=== PATIENT | male | born 1955 | race Caucasian/White ===

== ENCOUNTER 2024-02-28 12:44 | Inpatient (IN) | payer MEDICARE, MEDICAID, SELFPAY ==
[2024-02-28] VITALS (19 sets, daily range): BP systolic 71–168; BP diastolic 50–106; PULSE 85–152; RESP 17–36; TEMP 35.9–37; O2SAT 78–100; BMI 28.9
--- NOTE | ~2024-02-28 | XR_ITS ---
EXAMINATION: XR fl Dobhoff insert/rad w img DATE: 03/22/2024 11:26 INDICATION: Dysphagia. TECHNIQUE: I placed a nasoenteric tube under fluoroscopic guidance. The number of images was 2. The f luoroscopy exposure time was 0.5 minutes. COMPARISON: None. FINDINGS: The nasoenteric tube tip is in the stomach. IMPRESSION: 1. Fluoroscopy guided nasoenteric tube placement with tip in the stomach. Reviewed, dictated and finalized at location A. BOX OPERATOR
--- NOTE | ~2024-02-28 | XR_ITS ---
EXAMINATION: XR chest 1V portable DATE: 03/29/2024 05:50 INDICATION: Respiratory failure. TECHNIQUE: A single frontal view of the chest was obtained on 2 radiographs. COMPARISON: Chest view 03/27/2024, chest CT 03/16/2024 FINDINGS: There are moderate-sized pleural effusions. There are airspace opacities in the mid and low er lung zones with a basilar predominance. No pneumothorax. The heart size is normal. The endotrachea l tube tip is 5.3 cm above the pierce. A right upper extremity peripherally inserted central venous c atheter (PICC) is seen with tip at the superior cavoatrial junction. IMPRESSION: 1. Stable airspace opacities in the mid and lower lung zones, consistent with atelectasis versus pneu monia. 2. Stable moderate-sized pleural effusions. Reviewed, dictated and finalized at location A. PEELING MACHINE OPERATOR HELPER IMPRESSION: 1. Stable airspace opacities in the mid and lower lung zones, consistent with a telectasis versus pneumonia. 2. Stable moderate-sized pleural effusions.
--- NOTE | ~2024-02-28 | XR_ITS ---
XR chest 1V portable Ordering provider: Kaushik Collins History: 68 years Male with . ETT adjustment . Comparison: March 04, 2024 FINDINGS: MEDIASTINUM: The cardiac silhouette is not enlarged. Endotracheal tube is seen 4.8 cm above the juan a. Nasogastric tube is seen with the tip in the distal stomach. LUNGS: No pneumothorax. Opacification in the right mid and lower zone and left lower lobe area sugge stive of pneumonia. right pleural effusion is noted. OTHER: No free air under the diaphragm. IMPRESSION: Bilateral pneumonia. Right pleural effusion. Reviewed, dictated and finalized at location A.
--- NOTE | ~2024-02-28 | XR_ITS ---
EXAMINATION: XR abdomen gastric tube insert DATE: 02/28/2024 21:29 INDICATION: Orogastric tube placement. TECHNIQUE: An upright view of the abdomen was obtained. COMPARISON: None. FINDINGS: The lower abdomen is excluded. The nasogastric tube tip is beyond the inferior margin of th e radiograph, but at least to the distal stomach. There are old healed bilateral rib fractures. IMPRESSION: 1. Nasogastric tube tip beyond the inferior margin of the radiograph, but at least to the distal stom ach. Reviewed, dictated and finalized at location A. IMPRESSION: 1. Nasogastric tube tip beyond the inferior margin of the radiograph, but at le ast to the distal stomach.
--- NOTE | ~2024-02-28 | XR_ITS ---
EXAMINATION: XR chest PICC line DATE: 03/21/2024 09:05 INDICATION: Central line placement. TECHNIQUE: A single frontal view of the chest was obtained. COMPARISON: Chest single view 03/20/2024 FINDINGS: There are moderate-sized pleural effusions. There are airspace opacities in the perihilar r egions and at the lung bases. No pneumothorax. The heart size is normal. A right upper extremity geo pherally inserted central venous catheter (PICC) is seen with tip at the superior cavoatrial junction . There are old healed bilateral rib fractures. IMPRESSION: 1. PICC tip at the superior cavoatrial junction. 2. Stable moderate-sized pleural effusions. 3. Stable airspace opacities in the perihilar regions and at the lung bases, consistent with atelecta sis versus pneumonia. Reviewed, dictated and finalized at location A. NICIAN PREVENTATIVE MEDICINE IMPRESSION: 1. PICC tip at the superior cavoatrial junction. 2. Stable moderate-sized pleural effusions. 3. Stable airspace opacities in the perihilar regions and at the lung bases, co nsistent with atelectasis versus pneumonia.
--- NOTE | ~2024-02-28 | US_ITS ---
EXAMINATION: US venous doppler UE DATE: 03/11/2024 13:56 INDICATION: Bilateral upper limb swelling TECHNIQUE: Grayscale images without and with compression and Doppler images of the bilateral upper ex tremity veins were obtained. COMPARISON: None. FINDINGS: The right internal jugular vein, subclavian vein, axillary vein, brachial vein, basilic vein, cephali c vein, radial vein, and ulnar vein are patent. The left internal jugular vein, subclavian vein, axillary vein, brachial vein, basilic vein, cephalic vein, radial vein, and ulnar vein are patent. IMPRESSION: 1. Patent bilateral upper extremity veins. No evidence of venous thrombosis. Reviewed, dictated and finalized at location A.
--- NOTE | ~2024-02-28 | XR_ITS ---
Portable chest x-ray Comparison: 03/10/2024 Clinical History: Respiratory failure Findings: Endotracheal tube and NG tube are in place. Possible small right pleural effusion. Cardio mediastinal silhouette is stable. Bones and soft tissues are unremarkable. Impression: Small right pleural effusion. Support tubes, as above. Reviewed, dictated and finalized at location . Impression: Small right pleural effusion. Support tubes, as above.
--- NOTE | ~2024-02-28 | XR_ITS ---
Portable chest x-ray Comparison: 03/29/2024 Clinical History: Respiratory failure Findings: ET tube in place. Moderate layering right pleural effusion present. Small left pleural eff usion present. There is mild to moderate pulmonary edema pattern. Right-sided PICC line in place. Ca rdiomediastinal silhouette is stable. Bones and soft tissues are unremarkable. Impression: Bilateral pleural effusions, right greater than left, with associated [id number] pulmonary stephany a. Support tubes, as above. Reviewed, dictated and finalized at location M. P CUTTER Impression: Bilateral pleural effusions, right greater than left, with associated mild-to-m oderate pulmonary edema. Support tubes, as above.
--- NOTE | ~2024-02-28 | XR_ITS ---
EXAMINATION: XR chest 1V portable DATE: 03/05/2024 05:33 INDICATION: Acute respiratory failure. Pneumonia. TECHNIQUE: A single frontal view of the chest was obtained. COMPARISON: Chest single view 03/04/2024 FINDINGS: There are airspace opacities in all right lung zones and in the left mid and lower lung zon es. There is a small right pleural effusion. No pneumothorax. The heart size is normal. The endotrach eal tube tip is 5.7 cm above the pierce. The nasogastric tube tip is beyond the inferior margin of th e radiograph, but at least to the stomach. IMPRESSION: 1. Stable airspace opacities in right lung and left mid and lower lung zones, consistent with pneumon ia. 2. Stable small right pleural effusion. Reviewed, dictated and finalized at location A. IMPRESSION: 1. Stable airspace opacities in right lung and left mid and lower lung zones, c onsistent with pneumonia. 2. Stable small right pleural effusion.
--- NOTE | ~2024-02-28 | XR_ITS ---
EXAMINATION: XR chest 1V portable DATE: 03/16/2024 05:43 INDICATION: Intubation TECHNIQUE: frontal view of the chest was obtained. COMPARISON: Chest radiograph dated 03/15/2024 FINDINGS: Endotracheal tube tip 3.9 cm above the pierce. Nasogastric tube in the stomach with proximal side-por t below level of the gastroesophageal junction. Bilateral gradient of basilar predominant airspace opacities with blunting at the right costophrenic and left cardiophrenic angles consistent with small to moderate-sized bilateral posterior layering pl eural effusions with associated atelectasis or pneumonia. No pneumothorax. The cardiomediastinal silh ouette is normal. IMPRESSION: 1. Small to moderate-sized bilateral pleural effusions with associated atelectasis or pneumonia. Reviewed, dictated and finalized at location A. ROAD SWITCHMAN IMPRESSION: 1. Small to moderate-sized bilateral pleural effusions with associated atelecta sis or pneumonia.
--- NOTE | ~2024-02-28 | XR_ITS ---
XR abdomen gastric tube insert Ordering provider: Shyla Alanis PA-C History: . OG intubation . Comparison: XR abdomen gastric tube insert Ordering provider: Shyla Alanis PA-C History: . OG intubation . Comparison: None. FINDINGS: BOWEL: Nasogastric tube is seen with the tip in the fundus of the stomach. Advancement with 2 to 3 cm is advised. Otherwise, Nonobstructive bowel gas pattern. OTHER: No free air is seen under the diaphragm. IMPRESSION: Nasogastric tube with the tip in the fundus of the stomach. Slight advancement is advised. Reviewed, dictated and finalized at location A.
--- NOTE | ~2024-02-28 | XR_ITS ---
Portable chest x-ray Comparison: 03/25/2024 Clinical History: Respiratory failure Findings: Endotracheal tube and right-sided PICC line are in place. Probable moderate right pleural effusion and small left pleural effusion present. Moderate pulmonary edema pattern. Cardiomediastina l silhouette is stable. Bones and soft tissues are unremarkable. Impression: Bilateral pleural effusions and moderate pulmonary edema pattern, as above. Support tubes, as above. Reviewed, dictated and finalized at location . LE BUSINESS ANALYST Impression: Bilateral pleural effusions and moderate pulmonary edema pattern, as above. Support tubes, as above.
--- NOTE | ~2024-02-28 | CT_ITS ---
Clinical Indication: Cardiac arrest, hypoxia CT Scan of the Chest, Abdomen, and Pelvis with Contrast: Technique: Contiguous sections were acquired throughout the chest, abdomen, and pelvis after intraven ous administration of 100 cc of Omnipaque 350. Dose reduction technique was used on this scan by tre perez automated exposure control and iterative reconstruction technique. The dose-length product (DL P) was 1567.41 mGy-cm. Findings: There is no evidence of any significant mediastinal, hilar or axillary lymphadenopathy. The mediastin al soft tissues and vascular structures appear normal. Small pericardial effusion. Moderate to large right pleural effusion, and moderate left pleural effusion are present. There is co mplete consolidation and volume loss of the right lower lobe, most compatible with atelectasis. There is extensive right upper lobe consolidation, suspicious for pneumonia. There is mild patchy involvem ent of pneumonia in the right middle lobe. There is mild dependent left basilar atelectasis. Minimal ground glass opacity noted in the left upper lobe. The liver, spleen, pancreas, gallbladder, adrenals and kidneys are within normal limits. There are at herosclerotic calcifications of the aorta. No lymphadenopathy. No bowel obstruction or bowel wall thickening. There is no evidence to suggest acute appendicitis. Urinary bladder is collapsed around a Ha catheter. No pelvic mass seen. No ascites. There are mild probable chronic compression were injected T8, T11, and L1. Impression: Extensive right upper lobe consolidation and more mild right middle lobe consolidation, consistent wi th pneumonia. Consider aspiration pneumonia. Moderate to large right pleural effusion with complete atelectasis of the right lower lobe. Moderate left pleural effusion with minimal left basilar atelectasis. Small pericardial effusion. No definite acute abnormality in the abdomen or pelvis. Chronic compression fractures, as above. Reviewed, dictated and finalized at [facility]. Impression: Extensive right upper lobe consolidation and more mild right middle lobe consol idation, consistent with pneumonia. Consider aspiration pneumonia. Moderate to large right pleural effusion with complete atelectasis of the right lower lobe. Moderate left pleural effusion with minimal left basilar atelectasis. Small pericardial effusion. No definite acute abnormality in the abdomen or pelvis. Chronic compression fractures, as above.
--- NOTE | ~2024-02-28 | XR_ITS ---
EXAMINATION: XR chest 1V portable DATE: 03/07/2024 06:08 INDICATION: Respiratory failure. TECHNIQUE: A single frontal view of the chest was obtained. COMPARISON: Chest single view 03/06/2024 FINDINGS: There are airspace opacities in all lung zones bilaterally with a lower lung predominance, right worse than left. There is a small right pleural effusion. No pneumothorax. The heart size is no rmal. The endotracheal tube tip is 4.9 cm above the pierce. The nasogastric tube tip is beyond the in ferior margin of the radiograph, but at least to the stomach. IMPRESSION: 1. Stable diffuse lung disease, consistent with pneumonia. 2. Stable small right pleural effusion. Reviewed, dictated and finalized at location A.
--- NOTE | ~2024-02-28 | US_ITS ---
EXAMINATION: US thoracentesis DATE: 03/18/2024 10:20 INDICATION: pleural effusion TECHNIQUE: The skin was prepped and draped in sterile fashion. 1% lidocaine was used for local anesth esia. Under ultrasound guidance, a 5 Fr catheter with trochar was advanced into the left pleural effu jay jay. Fluid was aspirated. The catheter was removed, and a dressing was applied. There were no immedi ate complications. FINDINGS: Ultrasound images demonstrate a left pleural effusion and the catheter within the fluid. IMPRESSION: 1. Successful ultrasound-guided thoracentesis yielding 550 mL of doris-colored fluid. Reviewed, dictated and finalized at location A. DING MAINTENANCE REPAIRER
--- NOTE | ~2024-02-28 | XR_ITS ---
EXAMINATION: XR chest 1V portable DATE: 03/20/2024 08:53 INDICATION: Respiratory failure. TECHNIQUE: A single frontal view of the chest was obtained. COMPARISON: Chest single view 03/18/2024, chest CT 03/16/2024 FINDINGS: There are moderate-sized pleural effusions. There are airspace opacities in the perihilar r egions and at the lung bases. No pneumothorax. The heart size is normal. IMPRESSION: 1. Moderate-sized pleural effusions with worsening on the left. 2. Worsened airspace opacities in the perihilar regions and at the lung bases, consistent with atelec tasis versus pneumonia. Reviewed, dictated and finalized at location A. ADVISOR IMPRESSION: 1. Moderate-sized pleural effusions with worsening on the left. 2. Worsened airspace opacities in the perihilar regions and at the lung bases, consistent with atelectasis versus pneumonia.
--- NOTE | ~2024-02-28 | XR_ITS ---
XR chest ET placement Ordering provider: Shyla Alanis PA-C History: 68 years Male with . Intubation . Comparison: March 14, 2024 FINDINGS: MEDIASTINUM: The cardiac silhouette is slightly enlarged. Endotracheal tube is seen with the tip abov e the pierce by about 5 cm. Nasogastric tube is seen with the tip in the body of the stomach. LUNGS: No effusions or pneumothorax. Bilateral airspace disease seen in the upper and lower lobes sug gestive of pneumonia versus pulmonary edema. No change from previous examination. Minimal right pleur al effusion is possible. OTHER: No free air under the diaphragm. IMPRESSION: Bilateral airspace disease suggestive of pulmonary edema versus pneumonia. Reviewed, dictated and finalized at location A.
--- NOTE | ~2024-02-28 | XR_ITS ---
XR abdomen gastric tube insert DATE: 03/16/2024 19:42 INDICATION: Orogastric tube placement TECHNIQUE: Portable AP view COMPARISON: 03/14/2024 KUB FINDINGS: The orogastric tube is been advanced since 03/14/2024, the distal tip overlying the upper nhi dy of the stomach. ET tube in satisfactory position. Congestive changes and pleural effusions. IMPRESSION: Orogastric tube in satisfactory position in the stomach Reviewed, dictated and finalized at Location A. Reviewed, dictated and finalized at location A. EATIONAL PROGRAMS DIRECTOR
--- NOTE | ~2024-02-28 | US_ITS ---
EXAMINATION: US renal BI DATE: 03/03/2024 15:21 INDICATION: Acute renal insufficiency. Assess for hydronephrosis. TECHNIQUE: Multiple ultrasound grayscale images of the kidneys were obtained. COMPARISON: None. FINDINGS: The right kidney measures 11.4 x 5.0 x 4.9 cm. The left kidney measures 11.9 x 6.5 x 5.7 cm. The kidn eys demonstrate normal echogenicity. There is no hydronephrosis in either kidney. No stones identifi ed. The bladder is normal. Small amount of perihepatic ascites in right upper quadrant and additional small amount of ascites in the pelvis. IMPRESSION: 1. Normal kidneys without hydronephrosis. 2. Small amount of ascites in the abdomen and pelvis. Reviewed, dictated and finalized at location A.
--- NOTE | ~2024-02-28 | XR_ITS ---
Portable chest x-ray Comparison: 03/09/2024 Clinical History: Respiratory failure Findings: Endotracheal tube and NG tube are in place. Small right pleural effusion present. Left yehuda g clear. Cardiomediastinal silhouette is stable. Bones and soft tissues are unremarkable. Impression: Small right pleural effusion. Support tubes, as above. Reviewed, dictated and finalized at location . Impression: Small right pleural effusion. Support tubes, as above.
--- NOTE | ~2024-02-28 | XR_ITS ---
EXAMINATION: XR chest ET placement DATE: 02/28/2024 21:29 INDICATION: Intubation. TECHNIQUE: A single frontal view of the chest was obtained. COMPARISON: Chest single view 07/17/2020 FINDINGS: There are airspace opacities in all right lung zones. Left lateral costophrenic angle is ex cluded. No pleural effusion or pneumothorax. The heart size is normal. The endotracheal tube tip is 5 .9 cm above the pierce. The nasogastric tube tip is beyond the inferior margin of the radiograph, but at least to the stomach. There is an old healed left rib fracture. IMPRESSION: 1. Diffuse right lung disease, likely pneumonia. Reviewed, dictated and finalized at location A.
--- NOTE | ~2024-02-28 | XR_ITS ---
EXAMINATION: XR chest 1V portable DATE: 03/09/2024 05:54 INDICATION: Respiratory failure. TECHNIQUE: A single frontal view of the chest was obtained. COMPARISON: Chest single view 03/08/2024 FINDINGS: There is a small right pleural effusion. There are airspace opacities in all right lung zon es and in left mid and lower lung zones. No pneumothorax. The heart size is normal. Calcified right h ilar and mediastinal lymph nodes are consistent with old granulomatous disease. The endotracheal tube tip is 5.6 cm above the pierce. The nasogastric tube tip is beyond the inferior margin of the radiog raph, but at least to the stomach. IMPRESSION: 1. Stable airspace opacities in right lung and left mid and lower lung zones, consistent with pneumon ia. 2. Worsened small right pleural effusion. Reviewed, dictated and finalized at location A. IMPRESSION: 1. Stable airspace opacities in right lung and left mid and lower lung zones, c onsistent with pneumonia. 2. Worsened small right pleural effusion.
--- NOTE | ~2024-02-28 | XR_ITS ---
XR abdomen gastric tube rechec Ordering provider: Yasmine Edmond MD History: . Advanced OG tube . Comparison: None. FINDINGS/impression: BOWEL: Nasogastric tube is seen with the tip in the body of the stomach. Nonobstructive bowel gas pat tern in the visualized portion of the abdomen. Reviewed, dictated and finalized at location A.
--- NOTE | ~2024-02-28 | XR_ITS ---
EXAMINATION: XR barium swallow modified DATE: 03/21/2024 14:49 INDICATION: Aspiration. TECHNIQUE: The patient was given barium-containing material of multiple consistencies to swallow by t he speech pathologist while I performed fluoroscopy. Fluoroscopy exposure time was 1.2 minutes. The n umber of fluoroscopy images saved to the PACS was 1. Dose-area product was 1.2 Gy-cm^2. FINDINGS: There is reduced labial seal/lip tension. There is reduced laryngeal elevation, reduced laryngeal add uction, reduced tongue base retraction, reduced pharyngeal squeeze, and vallecular residue. There is laryngeal penetration and aspiration of thin liquids and pudding. IMPRESSION: 1. Aspiration of thin liquids and pudding. 2. Please refer to the speech therapy report for recommendations. Reviewed, dictated and finalized at location A. T SNATCHER
--- NOTE | ~2024-02-28 | XR_ITS ---
Portable chest x-ray Comparison: 03/23/2024 Clinical History: Respiratory failure Findings: Endotracheal tube, NG tube, and right-sided PICC line are in place. There are small to mod erate layering bilateral pleural effusions with underlying mild to moderate pulmonary edema pattern. Cardiomediastinal silhouette is stable. Bones and soft tissues are unremarkable. Impression: Bilateral pleural effusions with mild to moderate pulmonary edema pattern, as above. Support tubes, as above. Reviewed, dictated and finalized at location M. EXAMINER Impression: Bilateral pleural effusions with mild to moderate pulmonary edema pattern, as a jayshree. Support tubes, as above.
--- NOTE | ~2024-02-28 | XR_ITS ---
Portable chest x-ray Comparison: 03/26/2024 Clinical History: Respiratory failure Findings: Endotracheal tube and right-sided PICC line are in place. There are small bilateral pleura l effusions with mild to moderate pulmonary edema pattern. Probable element of left lower lobe atelec tasis. Cardiomediastinal silhouette is stable. Bones and soft tissues are unremarkable. Impression: [id number] bilateral pleural effusions with mild to moderate pulmonary edema pattern. Probable element of left lower lobe atelectasis. Support tubes are in place, as above. Reviewed, dictated and finalized at location M. CUTTING BLOCK REPAIRER Impression: [id number] bilateral pleural effusions with mild to moderate pulmonary e santa pattern. Probable element of left lower lobe atelectasis. Support tubes are in place, as above.
--- NOTE | ~2024-02-28 | XR_ITS ---
Portable chest x-ray Comparison: 03/30/2024 Clinical History: Respiratory failure Findings: Endotracheal tube and right-sided PICC line are in place. Small to moderate bilateral pleu ral effusions are present, mild bibasilar pulmonary edema. Cardiomediastinal silhouette is stable. B ones and soft tissues are unremarkable. Impression: [id number] bilateral pleural effusions with mild bibasilar pulmonary edema. Support tubes, as above. Reviewed, dictated and finalized at location M. ERIZER TENDER Impression: [id number] bilateral pleural effusions with mild bibasilar pulmonary manny ma. Support tubes, as above.
--- NOTE | ~2024-02-28 | XR_ITS ---
EXAMINATION: XR chest 1V portable DATE: 03/08/2024 05:59 INDICATION: Respiratory failure. TECHNIQUE: A single frontal view of the chest was obtained on 2 radiographs. COMPARISON: Chest single view 03/07/2024, chest CT 03/07/2024 FINDINGS: There are small pleural effusions. There are airspace opacities in right lung and left lowe r lung zone with a basilar predominance. No pneumothorax. The heart size is normal. The endotracheal tube tip is 5.9 cm above the pierce. The nasogastric tube tip is in the stomach. IMPRESSION: 1. Stable airspace opacities in right lung and left lower lung zone, consistent with pneumonia. 2. Stable small pleural effusions. Reviewed, dictated and finalized at location A.
--- NOTE | ~2024-02-28 | XR_ITS ---
Portable chest x-ray Comparison: 03/11/2024 Clinical History: Respiratory failure Findings: Endotracheal tube and NG tube are in satisfactory positions. There is minimal pulmonary mcclellan ziness. Cardiomediastinal silhouette is stable. Bones and soft tissues are unremarkable. Impression: Probable minimal pulmonary edema. Support tubes, as above. Reviewed, dictated and finalized at [facility]. Impression: Probable minimal pulmonary edema. Support tubes, as above.
--- NOTE | ~2024-02-28 | XR_ITS ---
Portable chest x-ray Comparison: 03/22/2024 Clinical History: Respiratory failure Findings: Endotracheal tube, NG tube, and right-sided PICC line are in place. Probable moderate laye ring bilateral pleural effusions with underlying mild to moderate pulmonary edema. Cardiomediastinal silhouette is stable. Bones and soft tissues are unremarkable. Impression: Probable moderate layering pleural effusions with underlying mild to moderate pulmonary edema pattern . Support tubes, as above. Reviewed, dictated and finalized at location . ING MACHINE OPERATOR Impression: Probable moderate layering pleural effusions with underlying mild to moderate p ulmonary edema pattern. Support tubes, as above.
--- NOTE | ~2024-02-28 | CT_ITS ---
CT head without contrast Indication: Cardiac arrest COMPARISON: 07/19/2020 Technique: Serial scans were obtained through the brain without the administration of contrast. Dose reduction technique was used on this scan by utilizing automated exposure control and iterative recon struction technique. The dose-length product (DLP) was 1167.43 mGy-cm. Findings: There is no evidence of intracranial hemorrhage, mass lesion, or acute infarct. Stable chronic care nurse magui encephalomalacia in the high left parietal lobe. The ventricles and subarachnoid spaces are dilat ed, consistent with mild atrophy. Low attenuation regions are seen within the periventricular white matter bilaterally, likely representing changes from chronic microvascular ischemic disease. There is no evidence of edema, mass effect or midline shift. The visualized paranasal sinuses and mastoid a ir cells are clear. Impression: No intracranial hemorrhage, mass, or acute infarct. Stable chronic encephalomalacia in the high left parietal lobe. Atrophy and chronic white matter changes, as above. Reviewed, dictated and finalized at location . Impression: No intracranial hemorrhage, mass, or acute infarct. Stable chronic encephalomalacia in the high left parietal lobe. Atrophy and chronic white matter changes, as above.
--- NOTE | ~2024-02-28 | XR_ITS ---
XR chest 1V portable 03/01/2024 06:16 Indication: Acute respiratory failure. Pneumonia. Procedure: AP portable chest Comparison: Comparison to multiple prior studies sequentially, with oldest reviewed study dated 04/14. Findings: There is extensive bilateral airspace disease, right greater than left. Small right pleural effusion. No pneumothorax. Stable position of endotracheal and NG tubes. Impression: 1: Persistent bilateral airspace disease, right greater than left. Differential diagnosis includes ed paula and pneumonia. 2: Small right pleural effusion. Reviewed, dictated and finalized at location B. Impression: 1: Persistent bilateral airspace disease, right greater than left. Differential diagnosis includes edema and pneumonia. 2: Small right pleural effusion.
--- NOTE | ~2024-02-28 | US_ITS ---
EXAMINATION: US thoracentesis DATE: 03/07/2024 14:46 INDICATION: pleural effusion TECHNIQUE: Emergency consent was obtained as patient has no next of kin available. Patient is intubat ed and sedated. A timeout was then performed as per protocol. The skin was prepped and draped in sterile fashion. 1% lidocaine was used for local anesthesia. Under ultrasound guidance, a 5 Fr catheter with trocar was advanced into the right pleural effusion, and the trocar needle removed. The catheter was then attached to vacuum suction. The pleural effusion was evacuated of 1 L of clear yellow fluid. The catheter was then removed, and a sterile dressing was applied. There were no immediate complications. FINDINGS: Ultrasound images demonstrate a large right-sided pleural effusion. IMPRESSION: 1. Successful ultrasound-guided thoracentesis yielding 1000 mL of thin yellow fluid, performed at e bedside in ICU. Reviewed, dictated and finalized at location A. IMPRESSION: 1. Successful ultrasound-guided thoracentesis yielding 1000 mL of thin yellow fluid, performed at the bedside in ICU.
--- NOTE | ~2024-02-28 | US_ITS ---
EXAMINATION: US thoracentesis DATE: 03/17/2024 15:03 INDICATION: pleural effusion TECHNIQUE: The skin was prepped and draped in sterile fashion. 1% lidocaine was used for local anesth esia. Under ultrasound guidance, a 5 Fr catheter with trochar was advanced into the right pleural eff usion. Fluid was aspirated. The catheter was removed, and a dressing was applied. There were no immed iate complications. FINDINGS: Ultrasound images demonstrate a right pleural effusion and the catheter within the fluid. IMPRESSION: 1. Successful ultrasound-guided thoracentesis yielding 1000 mL of clear, yellow fluid. Reviewed, dictated and finalized at location A. OMIC RESEARCH ANALYST IMPRESSION: 1. Successful ultrasound-guided thoracentesis yielding 1000 mL of clear, yello w fluid.
--- NOTE | ~2024-02-28 | XR_ITS ---
EXAMINATION: XR chest 1V portable DATE: 03/04/2024 06:06 INDICATION: Acute respiratory failure. Pneumonia. TECHNIQUE: A single frontal view of the chest was obtained. COMPARISON: Chest single view 03/03/2024 FINDINGS: There are interstitial airspace opacities in all lung zones bilaterally with a perihilar pr edominance, right worse than left. There is a small right pleural effusion. No pneumothorax. The hear t size is normal. The endotracheal tube tip is 9.3 cm above the pierce. The nasogastric tube tip is i n the stomach. Calcified mediastinal lymph nodes are consistent with old granulomatous disease. There are old healed rib fractures bilaterally. IMPRESSION: 1. Diffuse lung disease with improvement on the left, consistent with pulmonary edema versus pneumoni a versus acute respiratory distress syndrome (ARDS). 2. Stable small right pleural effusion. Reviewed, dictated and finalized at location A. IMPRESSION: 1. Diffuse lung disease with improvement on the left, consistent with pulmonary edema versus pneumonia versus acute respiratory distress syndrome (ARDS). 2. Stable small right pleural effusion.
--- NOTE | ~2024-02-28 | XR_ITS ---
Portable chest x-ray Comparison: 03/12/2024 Clinical History: Respiratory failure Findings: Endotracheal tube and NG tube are in place. Small layering right pleural effusion probably present. Left lung clear. Cardiomediastinal silhouette is stable. Bones and soft tissues are unrema rkable. Impression: Probable small layering right pleural effusion. Support tubes, as above. Reviewed, dictated and finalized at location . Impression: Probable small layering right pleural effusion. Support tubes, as above.
--- NOTE | ~2024-02-28 | XR_ITS ---
EXAMINATION: XR abdomen gastric tube insert DATE: 03/21/2024 15:45 INDICATION: Nasogastric tube placement. TECHNIQUE: A semiupright view of the abdomen was obtained. COMPARISON: Chest single view at 8:48 AM FINDINGS: The lower abdomen is excluded. The nasogastric tube tip is in the stomach. There are modera te-sized right and small left pleural effusions. IMPRESSION: 1. Nasogastric tube tip in the stomach. 2. Moderate-sized right and small left pleural effusions. Reviewed, dictated and finalized at location A. A LIBRARIAN
--- NOTE | ~2024-02-28 | XR_ITS ---
Portable chest x-ray Comparison: 03/16/2024 Clinical History: Intubation Findings: Endotracheal tube and NG tube are in satisfactory positions. There are small to moderate l ayering bilateral pleural effusions. Cardiomediastinal silhouette is stable. Bones and soft tissues are unremarkable. Impression: Small to moderate layering bilateral pleural effusions. Support tubes, as above. Reviewed, dictated and finalized at location M. MANAGEMENT DIRECTOR Impression: Small to moderate layering bilateral pleural effusions. Support tubes, as above.
--- NOTE | ~2024-02-28 | XR_ITS ---
XR chest 1V portable Ordering provider: Yasmine Edmond MD History: 68 years Male with . oxygen desaturation, UNABLE TO GET 2ND IMAGE AT THIS TIME . Comparison: March 03, 2024 FINDINGS: MEDIASTINUM: The cardiac silhouette is not enlarged. Endotracheal tube is seen with the tip 5 cm abov e the pierce. Nasogastric tube seen extending to the upper abdomen. LUNGS: No pneumothorax. Bilateral opacification suggestive of pneumonia. Underlying pulmonary edema i s not excluded. ARDS is also not excluded. Minimal right pleural effusion. OTHER: No free air under the diaphragm. IMPRESSION: Bilateral pneumonia. Differential include pulmonary edema and ARDS. Minimal right pleural effusion. Reviewed, dictated and finalized at location A. IMPRESSION: Bilateral pneumonia. Differential include pulmonary edema and ARDS. Minimal rig ht pleural effusion.
--- NOTE | ~2024-02-28 | XR_ITS ---
EXAMINATION: [id number]_CR DATE: 03/18/2024 10:31 INDICATION: Left pleural effusion status post thoracentesis. TECHNIQUE: A single frontal view of the chest was obtained on 2 radiographs. COMPARISON: Chest single view 03/17/2024 FINDINGS: There is a small right pleural effusion. There are airspace opacities at the lung bases. No pneumothorax. The heart size is normal. The endotracheal tube tip is 4.0 cm above the pierce. The na sogastric tube tip is beyond the inferior margin of the radiograph, but at least to the stomach. IMPRESSION: 1. Stable small right pleural effusion. 2. Airspace opacities at the lung bases with improvement on the left, consistent with atelectasis kike cruz pneumonia. Reviewed, dictated and finalized at location A. ON PICTURE CRITIC IMPRESSION: 1. Stable small right pleural effusion. 2. Airspace opacities at the lung bases with improvement on the left, consisten t with atelectasis versus pneumonia.
--- NOTE | ~2024-02-28 | US_ITS ---
EXAMINATION: US venous doppler UE DATE: 03/22/2024 14:44 INDICATION: Swelling . TECHNIQUE: Grayscale ultrasound images without and with compression and Doppler ultrasound images of the bilateral upper extremity veins were obtained. COMPARISON: 03/11/2024. FINDINGS: Partially compressible right subclavian vein, with nonocclusive intraluminal thrombus surrounding the traversing PICC. The visualized portions of the bilateral internal jugular vein, left subclavian vei n, axillary vein, brachial veins, basilic vein, cephalic vein, radial vein, and ulnar vein are patent . IMPRESSION: Nonocclusive right subclavian vein thrombus. No additional deep venous thrombosis detected in the rem aining bilateral upper extremity veins. Reviewed, dictated and finalized at location K. P IMPRESSION: Nonocclusive right subclavian vein thrombus. No additional deep venous thrombos is detected in the remaining bilateral upper extremity veins.
--- NOTE | ~2024-02-28 | XR_ITS ---
Portable chest x-ray Comparison: 03/01/2024 Clinical History: Respiratory failure Findings: Endotracheal tube and NG tube are in place. Probable moderate right pleural effusion with extensive hazy right lung consolidation. Left lung clear. Cardiomediastinal silhouette is stable. Murray larisa and soft tissues are unremarkable. Impression: Probable moderate layering right pleural effusion. Correlate for underlying atelectasis/edema versus pneumonia. Left lung clear. Support tubes, as above. Reviewed, dictated and finalized at location . Impression: Probable moderate layering right pleural effusion. Correlate for underlying ate lectasis/edema versus pneumonia. Left lung clear. Support tubes, as above.
--- NOTE | ~2024-02-28 | XR_ITS ---
Portable chest x-ray Comparison: 03/13/2024 Clinical History: Respiratory failure Findings: Endotracheal tube and NG tube are in place. Probable small layering right pleural effusion . Left lung clear. Cardiomediastinal silhouette is stable. Bones and soft tissues are unremarkable. Impression: Probable small layering right pleural effusion. Support tubes, as above. Reviewed, dictated and finalized at location . Impression: Probable small layering right pleural effusion. Support tubes, as above.
--- NOTE | ~2024-02-28 | XR_ITS ---
EXAMINATION: XR chest 1V portable DATE: 03/15/2024 06:04 INDICATION: Intubation TECHNIQUE: frontal view of the chest was obtained. COMPARISON: Chest radiograph dated 03/14/2024 FINDINGS: Endotracheal tube tip 3.8 cm above the pierce. Nasogastric tube tip just below level of the gastroeso phageal junction. Diffuse hazy and scattered patchy airspace opacities throughout the right lung which includes a likel y increasing small to moderate-sized right pleural effusion. Additional more localized retrocardiac o pacities at the medial left lower lung zone atelectasis and/or pneumonia possibly with small left ple ural effusion. Heart size is normal. IMPRESSION: 1. Nasogastric tube tip just below level of the gastroesophageal junction. Would recommend advancemen t by 8-[address] the proximal side-port below level of the gastroesophageal junction. 2. Bilateral airspace opacities at the medial left lower lung zone and more diffusely throughout the right lung collateral with interval increase consistent with likely increasing small to moderate-size d right pleural effusion and possible small left pleural effusion with associated atelectasis, pneumo amina, pulmonary edema or some combination thereof. Reviewed, dictated and finalized at location A. IMPRESSION: 1. Nasogastric tube tip just below level of the gastroesophageal junction. Woul d recommend advancement by 8-[address] the proximal side-port below level of the gastroesophageal junction. 2. Bilateral airspace opacities at the medial left lower lung zone and more dif fusely throughout the right lung collateral with interval increase consistent w ith likely increasing small to moderate-sized right pleural effusion and possib le small left pleural effusion with associated atelectasis, pneumonia, pulmonar y edema or some combination thereof.
--- NOTE | ~2024-02-28 | XR_ITS ---
[id number]_CR Ordering provider: Radha Boateng History: 68 years Male with . post R thora . Comparison: None. FINDINGS: MEDIASTINUM: The cardiac silhouette is slightly enlarged. Endotracheal tube is seen with the tip abov e the pierce by about 3 cm. Nasogastric tube seen extending to the stomach. LUNGS: No pneumothorax. Bilateral opacification in the perihilar and lower lobes more prominent on th e left side. Trace of effusion the right costophrenic angle is not excluded. OTHER: No free air under the diaphragm. IMPRESSION: Bilateral pneumonia. Reviewed, dictated and finalized at location A. IMPRESSION: Bilateral pneumonia.
--- NOTE | ~2024-02-28 | XR_ITS ---
EXAMINATION: XR chest 1V portable DATE: 03/22/2024 10:25 INDICATION: Central line placement. TECHNIQUE: A single frontal view of the chest was obtained on 2 radiographs. COMPARISON: Chest single view 03/21/2024 FINDINGS: There are airspace opacities in all right lung zones. There are airspace opacities in left perihilar region and at left lung base. There are moderate-sized right and small left pleural effusio ns. No pneumothorax. The heart size is normal. A right upper extremity peripherally inserted central venous catheter (PICC) is seen with tip at the superior cavoatrial junction. IMPRESSION: 1. Diffuse lung disease with worsening on the right, consistent with atelectasis versus pneumonia. 2. Stable moderate-sized right and small left pleural effusions. 3. PICC tip at superior cavoatrial junction. Reviewed, dictated and finalized at location A. ALARM INSTALLER IMPRESSION: 1. Diffuse lung disease with worsening on the right, consistent with atelectasi s versus pneumonia. 2. Stable moderate-sized right and small left pleural effusions. 3. PICC tip at superior cavoatrial junction.
--- NOTE | ~2024-02-28 | CT_ITS ---
EXAMINATION: CT chest abdomen pelvis wo con DATE: 03/16/2024 09:50 INDICATION: Fever TECHNIQUE: Computed tomography (CT) of the chest, abdomen, and pelvis was performed without intraveno us contrast. Automated exposure control and iterative reconstruction technique were employed. Exam do se: 1737.70 mGy-cm total exam DLP. COMPARISON: None FINDINGS: CHEST CT: ET and NG tube in satisfactory position. Borderline heart size. Minimal pericardial effusion. Prominent left main and left anterior descending coronary artery calcifications. No thoracic aortic aneurysm. No hilar or mediastinal mass lesion or lymphadenopathy is evident. There are fairly large bilateral pleural effusions with associated urinary prominent compressive atel ectasis of the lower lobes and dependent atelectasis of the middle and upper lobes. Mild bilateral gynecomastia. ABDOMEN/PELVIS CT: No hepatic, splenic, pancreatic, adrenal or renal space occupying mass lesion. The gallbladder is present. No bile duct or pancreatic duct dilatation. No urinary tract calculus or hydroureteronephrosis. There is prominent diffuse thickening of the urinary bladder wall; consider cystitis. There is a Fole y catheter within the bladder lumen. The prostate does not appear very enlarged but there are some pr ostate calcifications. There is atherosclerotic calcification of the abdominal aorta but no aneurysm. No intraperitoneal or retroperitoneal or pelvic mass lesion or adenopathy or ascites is evident. There is an NG tube in the stomach but there is a very large air-fluid level of the stomach. The appendix is not visualized. No bowel obstruction, bowel wall thickening, pneumatosis or intraperitoneal free air is detected. There is edema of the abdominal and pelvic hernandez and proximal thighs as well as scrotum. Small bilateral fat-containing inguinal hernias. There are moderate anterior wedge compression fracture deformities of T11 and L1. These are likely ch ronic. No suspicious osteolytic or osteoblastic lesion is identified. Left femoral venous catheter terminates in the left common iliac vein. IMPRESSION: Anasarca Large pleural effusions with prominent compressive atelectasis of the lower lobes especially, depende nt atelectasis of the middle and upper lobes Heart size. Prominent coronary artery atherosclerotic calcifications Minimal pericardial effusion Prominent diffuse thickening of urinary bladder wall suggesting cystitis area Ha catheter in bladd er lumen Very prominent amount of fluid and large fluid level within the stomach despite presence of NG tube T11 and L1 moderate anterior wedge compression fractures, likely chronic Reviewed, dictated and finalized at Location A. Reviewed, dictated and finalized at location A. NS OR GROUNDS SUPERINTENDENT IMPRESSION: Anasarca Large pleural effusions with prominent compressive atelectasis of the lower lob es especially, dependent atelectasis of the middle and upper lobes Heart size. Prominent coronary artery atherosclerotic calcifications Minimal pericardial effusion Prominent diffuse thickening of urinary bladder wall suggesting cystitis area F oley catheter in bladder lumen Very prominent amount of fluid and large fluid level within the stomach despite presence of NG tube T11 and L1 moderate anterior wedge compression fractures, likely chronic
--- NOTE | ~2024-02-28 | XR_ITS ---
Portable chest x-ray Comparison: 03/17/2024 Clinical History: Intubation Findings: Endotracheal tube and NG tube are in satisfactory positions. There are small bilateral ple ural effusions with probable mild central pulmonary edema. Cardiomediastinal silhouette is stable. B ones and soft tissues are unremarkable. Impression: Small bilateral pleural effusions with probable mild central pulmonary edema pattern. Support tubes, as above. Reviewed, dictated and finalized at location . LE SLIDE MAKER Impression: Small bilateral pleural effusions with probable mild central pulmonary edema pa ttern. Support tubes, as above.
--- NOTE | ~2024-02-28 | XR_ITS ---
Portable chest x-ray Comparison: 03/31/2024 Clinical History: Status post tracheostomy Findings: Tracheostomy cannula and right-sided PICC line are in place. Probable small pleural effusi ons. Cardiomediastinal silhouette is stable. Bones and soft tissues are unremarkable. Impression: Support tubes, as above. Small bilateral pleural effusions. Reviewed, dictated and finalized at location . HANDISING DIRECTOR Impression: Support tubes, as above. Small bilateral pleural effusions.
--- NOTE | ~2024-02-28 | XR_ITS ---
EXAMINATION: XR abdomen gastric tube insert DATE: 03/22/2024 12:41 INDICATION: Orogastric tube placement. TECHNIQUE: An upright view of the abdomen was obtained. COMPARISON: Chest single view 03/22/2024 FINDINGS: The lower abdomen is excluded. The nasogastric tube tip is in the stomach. The nasogastric tube tip is in the stomach. A right upper extremity peripherally inserted central venous catheter (PI CC) is seen with tip at the superior cavoatrial junction. The endotracheal tube tip is 3.9 cm above t he pierce. IMPRESSION: 1. Nasogastric tube tip in the stomach. 2. Nasoenteric tube tip in the stomach. Reviewed, dictated and finalized at location A. ET MAKING MACHINE OPERATOR
--- NOTE | ~2024-02-28 | XR_ITS ---
CHEST RADIOGRAPH CLINICAL HISTORY: post thora icu . COMPARISON: 03/17/2024 at 5:30 AM TECHNIQUE: Single portable view of the chest. FINDINGS Redemonstration of an endotracheal tube with its tip projecting approximately 5 cm above the base of the pierce, in good radiographic position. Orogastric tube extends below the left hemidiaphragm. The remainder of the cardiomediastinal silhouette is partially obscured, but otherwise unremarkable. Large left and small right-sided pleural effusion persists. Decreased pleural fluid within the right hemithorax, when compared with previous examination. Right lung is fully inflated following right-sided thoracentesis. Increased interstitial markings are identified bilaterally, findings suggesting moderate pulmonary va scular congestion. Remainder of the visualized lung colon are clear. IMPRESSION: Right lung is fully inflated following right-sided thoracentesis. Large left and small right-sided pleural effusion persists. Supportive devices remain in good radiographic position. Reviewed, dictated and finalized at location A. LANE WOODWORKER
--- NOTE | ~2024-02-28 | XR_ITS ---
EXAMINATION: XR chest 1V portable DATE: 03/06/2024 05:41 INDICATION: Respiratory failure. TECHNIQUE: A single frontal view of the chest was obtained. COMPARISON: Chest single view 03/05/2024 FINDINGS: There are airspace opacities in all lung zones bilaterally with a perihilar and lower lung predominance, right worse than left. There is a small right pleural effusion. No pneumothorax. The he art size is normal. The endotracheal tube tip is 6.1 cm above the pierce. The nasogastric tube tip is beyond the inferior margin of the radiograph, but at least to the stomach. IMPRESSION: 1. Diffuse lung disease with worsening on the left, consistent with pneumonia. 2. Stable small right pleural effusion. Reviewed, dictated and finalized at location A.
--- NOTE | ~2024-02-28 | XR_ITS ---
Portable chest x-ray Comparison: 03/24/2024 Clinical History: Respiratory failure Findings: Endotracheal tube and right-sided PICC line are in place. Probable moderate right pleural effusion and small left pleural effusion. Probable mild to moderate pulmonary edema pattern. Cardiom ediastinal silhouette is stable. Bones and soft tissues are unremarkable. Impression: Moderate right pleural effusion and small left pleural effusion with probable moderate pulmonary stephany a. Support tubes, as above. Reviewed, dictated and finalized at location . CISE PLANNER Impression: Moderate right pleural effusion and small left pleural effusion with probable m oderate pulmonary edema. Support tubes, as above.
--- NOTE | ~2024-02-28 | XR_ITS ---
EXAMINATION: XR chest ET placement DATE: 03/22/2024 12:41 INDICATION: Intubation. TECHNIQUE: A single frontal view of the chest was obtained. COMPARISON: Chest single view at 10:12 AM FINDINGS: There are moderate-sized right and small left pleural effusions. There are airspace opaciti es in the perihilar regions and at the lung bases. No pneumothorax. The heart size is normal. The end otracheal tube tip is 3.5 cm above the pierce. The nasogastric tube tip is in the stomach. A right up per extremity peripherally inserted central venous catheter (PICC) is seen with tip at the superior c avoatrial junction. The nasoenteric tube tip is beyond the inferior margin of the radiograph, but at least to the stomach. IMPRESSION: 1. Diffuse lung disease with a perihilar and lower lung predominance with worsening on the left, cons istent with atelectasis versus pneumonia versus pulmonary edema. 2. Stable moderate-sized right and small left pleural effusions. Reviewed, dictated and finalized at location A. L MACHINE OPERATOR IMPRESSION: 1. Diffuse lung disease with a perihilar and lower lung predominance with worse magdaleno on the left, consistent with atelectasis versus pneumonia versus pulmonary edema. 2. Stable moderate-sized right and small left pleural effusions.
--- NOTE | ~2024-02-28 | US_ITS ---
EXAMINATION: 1. US abdomen duplex Verold 2. US abdomen limited DATE: 03/13/2024 16:44 INDICATION: Abnormal liver function tests. TECHNIQUE: Multiple grayscale and Doppler ultrasound images of the abdomen were obtained. COMPARISON: CT 02/29/2024 FINDINGS: ULTRASOUND LIMITED: The visualized portions of the head, body, and tail of the pancreas are normal. T he liver is normal without focal lesion. The gallbladder is contracted. No gallstones. The common nixon t is normal and measures 2 mm. There is a right pleural effusion. ULTRASOUND DUPLEX: The right, middle, and left hepatic veins are normal. There is antegrade flow in m ain portal vein. IMPRESSION: 1. No etiology for abnormal liver function tests. 2. Normal hepatic veins and main portal vein. Right and left portal veins and proper hepatic artery n ot evaluated. 3. Right pleural effusion. Reviewed, dictated and finalized at location B. IMPRESSION: 1. No etiology for abnormal liver function tests. 2. Normal hepatic veins and main portal vein. Right and left portal veins and p kishore hepatic artery not evaluated. 3. Right pleural effusion.
--- NOTE | ~2024-02-28 | XR_ITS ---
EXAMINATION: XR_CXR1VTHORA_CR DATE: 03/08/2024 10:07 INDICATION: Left pleural effusion status post thoracentesis. TECHNIQUE: A single frontal view of the chest was obtained. COMPARISON: Chest single view at 5:31 AM FINDINGS: There are bilateral airspace opacities with a perihilar predominance, right worse than left . No pleural effusion or pneumothorax. The heart size is normal. The endotracheal tube tip is 5.3 cm above the pierce. The nasogastric tube tip is beyond the inferior margin of the radiograph, but at le ast to the stomach. IMPRESSION: 1. Stable bilateral lung disease, right worse than left, consistent with pneumonia. Reviewed, dictated and finalized at location A. IMPRESSION: 1. Stable bilateral lung disease, right worse than left, consistent with pneumo amina.
--- NOTE | ~2024-02-28 | XR_ITS ---
Portable chest x-ray Comparison: 03/02/2024 Clinical History: Pneumonia Findings: Endotracheal tube and NG tube are in place. Small right pleural effusion present. There is mild haziness right lung. Cardiomediastinal silhouette is stable. Bones and soft tissues are unrema rkable. Impression: Small right pleural effusion. Possible mild asymmetric haziness right lung. Correlate for mild asymmetric pulmonary edema or pneumo amina. Support tubes, as above. Reviewed, dictated and finalized at location . Impression: Small right pleural effusion. Possible mild asymmetric haziness right lung. Correlate for mild asymmetric pul monary edema or pneumonia. Support tubes, as above.
--- NOTE | ~2024-02-28 | CT_ITS ---
EXAMINATION: CTA LE RT DATE: 02/28/2024 14:20 INDICATION: Peripheral arterial disease. Gangrenous right foot. TECHNIQUE: Computed tomographic angiography (CTA) of the right lower extremity was performed with 100 mL Omnipaque-350 intravenous contrast. Automated exposure control and iterative reconstruction techn ique were employed. The dose-length product was 780.33 mGy-cm. Maximum intensity projection 3D-recons tructions of the arteries were created by the technologist on a separate workstation. COMPARISON: None. FINDINGS: The bladder is markedly distended. There is a right inguinal hernia containing fat. There a re mildly enlarged right external iliac and inguinal lymph nodes, likely reactive. There is no signif icant stenosis of right common iliac artery or external iliac artery. There is moderate stenosis of r ight internal iliac artery. There is no significant stenosis of right common femoral artery, superfic ial femoral artery, or profunda femoral artery. There is moderate stenosis of popliteal artery. There is total occlusion of right anterior tibial artery and posterior tibial artery. There is total occlu jay jay of peroneal artery with distal reconstitution. There is soft tissue gas in the great toe and med ial foot soft tissues. There is soft tissue gas in first proximal and distal phalanges and head of fi rst metatarsal, consistent with osteomyelitis. There is an old healed fracture of femoral diaphysis w ith internal fixation. IMPRESSION: 1. Total occlusion of right anterior and posterior tibial arteries and right peroneal artery with di stal reconstitution of peroneal artery. 2. Moderate stenosis of right popliteal artery. 3. Osteomyelitis involving first proximal and distal phalanges and head of first metatarsal. Reviewed, dictated and finalized at location A. IMPRESSION: 1. Total occlusion of right anterior and posterior tibial arteries and right p eroneal artery with distal reconstitution of peroneal artery. 2. Moderate stenosis of right popliteal artery. 3. Osteomyelitis involving first proximal and distal phalanges and head of firs t metatarsal.
--- NOTE | ~2024-02-28 | US_ITS ---
EXAMINATION: US thoracentesis DATE: 03/08/2024 09:31 INDICATION: pleural effusion TECHNIQUE: The skin was prepped and draped in sterile fashion. 1% lidocaine was used for local anesth esia. Under ultrasound guidance, a 5 Fr catheter with trochar was advanced into the left pleural effu jay jay. Fluid was aspirated. The catheter was removed, and a dressing was applied. There were no immedi ate complications. FINDINGS: Ultrasound images demonstrate a left pleural effusion and the catheter within the fluid. IMPRESSION: 1. Successful ultrasound-guided thoracentesis yielding 550 mL of clear, yellow fluid. Reviewed, dictated and finalized at location A.
[2024-02-28 13:21] LABS: Basophils Absolute Auto 0.1 K/mm3 (0.0-0.1); Basophils Percent Auto 0.3 % (0.2-1.2); Eosinophils Absolute Auto 0.2 K/mm3 (0-0.3); Eosinophils Percent Auto 0.7 % (0-4.4); Hematocrit 29.4 % (42.0-52.0); Hemoglobin 9.5 g/dL (14.0-18.0); Immature Granulocyte Percent A 1.4 % (0-0.5); Lymphocytes Absolute Auto 1.94 K/mm3 (0.9-3.2); Lymphocytes Percent Auto 8.8 % (18.3-44.2); Mean Corpuscular HGB Conc 32.3 g/dl (32-36); Mean Corpuscular Hemoglobin 27.6 pg (26-34); Mean Corpuscular Volume 85.5 fl (80-100); Mean Platelet Volume 8.7 fl (7.4-10.4); Neutrophils Absolute Auto 17.7 K/mm3 (1.3-6.7); Neutrophils Percent Auto 79.8 % (45.5-73.1); Platelet Count Result 414 k/mm3 (150-375); Red Blood Count 3.44 M/mm3 (4.6-6.20); Red Cell Distribution Width 14.6 % (11.5-14.5); White Blood Count 22.2 K/mm3 (4.5-10.0)
[2024-02-28 13:30] LABS: Lactic Acid Reflex 1.4 mmol/L (0.7-2.0)
[2024-02-28 13:31] LABS: Alanine Aminotransferase 22 U/L (6-50); Albumin Level 2.9 g/dL (3.5-5.1); Alkaline Phosphatase 125 U/L (38-126); Anion Gap 8 mmol/L (4-12); Aspartate Amino Transferase 48 U/L (17-59); Bilirubin,Total 0.6 mg/dL (0.2-1.3); Blood Urea Nitrogen 8 mg/dL (9-20); Calcium 8.2 mg/dL (8.4-10.2); Carbon Dioxide 28 mmol/L (22-30); Chloride 94 mmol/L (98-107); Estimated CRCL calculation 90 ml/min; Estimated Glomerular Filt Rate > 60; Glucose 109 mg/dL (65-110); Potassium 3.8 mmol/L (3.4-5.0); Sodium 130 mmol/L (137-145)
[2024-02-28 13:35] LABS: INR 1.4; Prothrombin Time 17.4 Seconds (11.1-14.7)
[2024-02-28 13:36] LABS: Partial Thromboplastin Time 52.9 Seconds (22.3-36.8)
--- NOTE | 2024-02-28 13:42 | ED_ITS ---
HPI - Extremity Problem General Chief complaint: Extremity Problem,Nontraumatic <Verona Sánchez PA-C - Last Filed: 02/28/24 19:07> Stated complaint: foot pain <ANNAMARIE Morales Last Filed: 02/28/24 19:07> Time Seen by Provider: 02/28/24 13:17 <ANNAMARIE Morales Last Filed: 02/28/24 19:07> Source: patient <ANNAMARIE Morales Last Filed: 02/28/24 19:07> Mode of arrival: EMS <ANNAMARIE Morales Last Filed: 02/28/24 19:07> Limitations: no limitations <ANNAMARIE Morales Last Filed: 02/28/24 19:07> History of Present Illness HPI Narrative: Patient is a 68-year-old male who presents the ED via EMS with report of right foot wound. Patient is a resident of [facility]. he reports he has had wounds to his right 1st toe and foot over the last few weeks. He has noted a his 1st toe and distal foot to be black over the last several weeks. He states he began having increased pain and swelling to the foot over the last couple of days, which prompted him to come to the ED. He has been applying a salve to the foot. Per [place] report, patient refused to let staff evaluate him or bathe him often. Patient is a diabetic, but he states he is borderline. Denies known fevers. <Verona Sánchez PA-C - Last Filed: 02/28/24 19:07> Related Data Home medications: Home Medications Medication Instructions Recorded Confirmed budesonide-formoterol HFA 160 2 puff inhalation Q12H 07/17/20 07/17/20 mcg-4.5 mcg/actuation aerosol inhaler (Symbicort) calcium carbonate (Tums) 200 mg PO QID PRN Indigestion 07/17/20 07/17/20 cholecalciferol (vitamin D3) 25 25 mcg PO DAILY 07/17/20 07/17/20 mcg (1,000 unit) tablet citalopram 20 mg tablet (Celexa) 20 mg PO DAILY 07/17/20 07/17/20 fluticasone propionate 50 2 spray intranasal DAILY 07/17/20 07/17/20 mcg/actuation nasal spray,suspension metoprolol succinate 50 mg 50 mg PO DAILY 07/17/20 07/17/20 tablet,extended release 24 hr zolpidem 10 mg tablet 10 mg PO HS 07/17/20 07/17/20 Flonase 2 inh EACH NARE DAILY 02/28/24 02/28/24 acetaminophen 325 mg tablet 650 mg PO TID 02/28/24 02/28/24 albuterol sulfate 90 mcg/actuation 2 inh inhalation Q4H PRN Shortness 02/28/24 02/28/24 aerosol inhaler Of Breath Or Wheezing aspirin 81 mg chewable tablet 81 mg PO DAILY 02/28/24 02/28/24 (Aspirin Childrens) budesonide-formoterol HFA 160 2 puff inhalation Q12H 02/28/24 02/28/24 mcg-4.5 mcg/actuation aerosol inhaler (Symbicort) calcium carbonate (Calcium Antacid) 400 mg PO Q6H heartburn 02/28/24 02/28/24 dapagliflozin propanediol 5 mg 10 mg PO DAILY 02/28/24 02/28/24 tablet (Farxiga) docusate sodium 100 mg capsule 100 mg PO Q12H 02/28/24 02/28/24 (Colace) glucagon 1 mg/0.2 mL subcutaneous 1 mg subcut PRN PRN Hypoglycemia 02/28/24 02/28/24 auto-injector (Korina HypoPen 1-Pack) guaifenesin 400 mg tablet 400 mg PO Q6H PRN Cough 02/28/24 02/28/24 insulin aspart U-100 100 unit/mL 7 unit subcut AC 02/28/24 02/28/24 subcutaneous solution insulin glargine-yfgn 100 unit/mL 55 unit subcut HS 02/28/24 02/28/24 (3 mL) subcutaneous pen lanolin alcohols-mineral 1 applic topical Q12H 02/28/24 02/28/24 oil-w.petrolatum-ceresin topical cream (Eucerin topical cream) losartan 25 mg tablet 25 mg PO DAILY 02/28/24 02/28/24 metformin 500 mg tablet 500 mg PO BID 02/28/24 02/28/24 metoprolol succinate 50 mg 50 mg PO DAILY 02/28/24 02/28/24 tablet,extended release 24 hr multivit with minerals-iron 18 1 tablet PO DAILY 02/28/24 02/28/24 mg-folic ac 400 mcg-vit K 25 mcg tablet (Adults Multivitamin) polyethylene glycol 3350 17 gram 17 g PO DAILY PRN Constipation 02/28/24 02/28/24 oral powder packet (Miralax) rosuvastatin 20 mg tablet 20 mg PO DAILY 02/28/24 02/28/24 ticagrelor 60 mg tablet (Brilinta) 60 mg PO Q12H 02/28/24 02/28/24 trazodone 50 mg tablet 25 mg PO HS 02/28/24 02/28/24 <Verona Sánchez PA-C - Last Filed: 02/28/24 19:07> Allergies/Adverse reactions: Allergies Allergy/AdvReac Type Severity Reaction Status Date / Time No Known Allergies Allergy Verified 02/29/24 12:35 <Verona Sánchez PA-C - Last Filed: 02/28/24 19:07> Review of Systems Review of Systems: All systems reviewed & are unremarkable except as noted in HPI. <Verona Sánchez PA-C - Last Filed: 02/28/24 19:07> All systems reviewed & are unremarkable except as noted in HPI and below <Verona Sánchez PA-C - Last Filed: 02/28/24 19:07> [facility] Past Medical History Medical History: Medical History Alcohol abuse has abstained for many years Chronic obstructive pulmonary disease COPD (chronic obstructive pulmonary disease) Coronary artery disease COVID-19 Depression Hip fracture, right History of alcoholism HTN (hypertension) Insomnia Peripheral neuropathy Peripheral vascular disease Type 2 diabetes mellitus <Verona Sánchez PA-C - Last Filed: 02/28/24 19:07> Surgical History Surgical History: Surgical History History of appendectomy History of coronary artery stent placement History of hip surgery Reconstruction of the right femur History of open reduction and internal fixation (ORIF) procedure repair right femur fracture History of surgery on lower extremity History of tonsillectomy <Verona Sánchez PA-C - Last Filed: 02/28/24 19:07> Family History Family History: Family History Father Cancer Mother Heart attack Father Cancer Mother Acute myocardial infarction Grandparent 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 <Verona Sánchez PA-C - Last Filed: 02/28/24 19:07> Social History Social History: Social History Social History: Surrogate medical decision maker: The patient declines edema surrogate decision maker. He does not have a legal guardian listed or emergency contacts. skilled nursing reports that he has never had any visitors and they are unaware any family. Code status: Full code, signed in 2018 by the patient. Smoking status: Former smoker Alcohol intake: former Substance use: never Substance use type: does not use Do You Feel Safe in your Home?: Yes Lack of Transportation: No Lack of Food: Never True Current Housing: I Have Housing Concerned About Future Housing: No Difficulty Paying Gas/Electric Bills: No Difficulty Paying for Meds: No Currently Unemployed: No Education: Trade/Vocational Certificate Difficulty w/ Childcare or Family Care: No Living arrangements: snf Additional living arrangements comments: Resident at [facility]. Additional occupation/education comments: Disabled. Spiritual care concerns: No <ANNAMARIE Morales Last Filed: 02/28/24 19:07> Exam Narrative: GENERAL: Chronically ill-appearing, appears older than stated age, non-toxic, in no acute distress. HEAD: Normocephalic, atraumatic. RESPIRATORY: Airway patent, respirations nonlabored. Clear to auscultation bilaterally, no rales, rhonchi, wheezing. CARDIOVASCULAR: Regular rate and rhythm without murmurs, rubs, or gallops. pedal pulses are slightly difficult to palpate, possibly due to swelling, easily found with Doppler. MUSCULOSKELETAL: Moves all extremities. R foot with gangrene of entirety of 1st digit, necrosis extending to mid foot in area of arch, medial ball of foot, on dorsal foot just past 1st mtp joint. Bleeding and purulent material draining from necrotic areas. Distal tip of 1st digit avulsed off. Small area of fluctuance to webspace between 1st/2nd digits. Small ulcerative wounds to 2nd toe with purple discoloration of this toe. Bogginess to plantar surface of foot past necrosis with scaling/flaking of skin. Diffuse erythema of foot extending just distally from ankle. SKIN: Warm, dry, normal color. NEURO: A&O X3. Speech clear. Cranial nerves II-XII grossly intact. No ataxic movements. PSYCHIATRIC: Appropriate mood and affect. Normal interaction. <Verona Sánchez PA-C - Last Filed: 02/28/24 19:07> Course COMPOUND MACHINE OPERATOR/PA Physician Supervision For this patient encounter, I reviewed the COMPOUND MACHINE OPERATOR or PA documentation, treatment plan, and medical decision making and/or I had [id number] time with this patient. I performed all aspects of the MDM as documented. <Juli Macedo MD - Last Filed: 02/29/24 15:25> Vital Signs Vital signs: Vital Signs Temperature 97.8 F 02/28/24 12:46 Pulse Rate 93 02/28/24 12:46 Respiratory Rate 17 02/28/24 12:46 Blood Pressure 165/79 H 02/28/24 12:46 Pulse Oximetry 100 02/28/24 12:46 Temperature 97.8 F 02/29/24 14:00 Pulse Rate 78 02/29/24 14:50 Respiratory Rate 24 H 02/29/24 14:05 Blood Pressure 127/71 02/29/24 14:50 Pulse Oximetry 100 02/29/24 14:00 Oxygen Delivery Mechanical Ventilation 02/29/24 13:43 Fraction of Inspired Oxygen 40 02/29/24 13:43 <Verona Sánchez PA-C - Last Filed: 02/28/24 19:07> Vital Signs Temperature 97.8 F 02/28/24 12:46 Pulse Rate 93 02/28/24 12:46 Respiratory Rate 17 02/28/24 12:46 Blood Pressure 165/79 H 02/28/24 12:46 Pulse Oximetry 100 02/28/24 12:46 Temperature 97.8 F 02/29/24 14:00 Pulse Rate 78 02/29/24 14:50 Respiratory Rate 24 H 02/29/24 14:05 Blood Pressure 127/71 02/29/24 14:50 Pulse Oximetry 100 02/29/24 14:00 Oxygen Delivery Mechanical Ventilation 02/29/24 13:43 Fraction of Inspired Oxygen 40 02/29/24 13:43 <Juli Macedo MD - Last Filed: 02/29/24 15:25> MDM - Extremity (Nontraumatic) MDM Narrative Medical decision making narrative: Patient presented to ED with necrotic wounds to right foot. States wounds and foot have been black for the last several weeks. Vital signs are stable upon arrival. Patient is afebrile here. Exam with gangrene/necrosis of 1st toe extending to about mid foot on medial surface. CBC with WBC count of 22.2. Neutrophil predominance. No bandemia. Anemia at 9.5. No records to compare to. CMP with sodium of 130. Stable electrolytes. Stable kidney function. Lactic acid within normal range and 1.4. Blood cx obtained. Hemoglobin A1c 8.2%. Blood glucose on CMP is 109. CRP and ESR are notably elevated. On exam, patient's pedal pulses were faint. These were easily found with bedside Doppler. I did order CTA of right lower extremity: IMPRESSION: 1. 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 2. Moderate stenosis of right popliteal artery. 3. Osteomyelitis involving first proximal and distal phalanges and head of first metatarsal. Patient will need at least partial or near complete amputation of foot. Will discuss with Dr. Jonhs, general surgery, to see if can keep patient here or will need facility w/ vascular speciality. Dr. Johns and Jaylene with gen surg down in the ED to see patient. States patient will need a [id number] amputation, willing to perform tomorrow. Patient was initially unsure about staying in the hospital. States he is worried about his belongings back at the snf. After long discussion with patient, he understands risks and benefits, is willing to stay and be admitted here for amputation tomorrow. Discussed case with Shyla BARILLAS hospitalist accepted patient for admission. Cefepime, Flagyl, vancomycin started in the ED per ED antibiotic stewardship. <ERAN Morales-Eric - Last Filed: 02/28/24 19:07> Differential Diagnosis Differential diagnosis: Likely cellulitis and other ( Diabetic foot wound, gangrenous foot) <Juli Macedo MD - Last Filed: 02/29/24 15:25> Medical Records Attestation: I reviewed the patient's medical records. <Verona Sánchez PA-C - Last Filed: 02/28/24 19:07> Lab Data Attestation: I reviewed the patient's lab results. <Verona Sánchez PA-C - Last Filed: 02/28/24 19:07> Result diagrams: 02/29/24 04:26 02/29/24 04:26 <Verona Sánchez PA-C - Last Filed: 02/28/24 19:07> Labs: Lab Results 02/28/24 02/28/24 02/28/24 Range/Units 13:11 14:44 17:42 WBC 22.2 H (4.5-10.0) K/mm3 RBC 3.44 L (4.6-6.20) M/mm3 Hgb 9.5 L (14.0-18.0) g/dL Hct 29.4 L (42.0-52.0) % MCV 85.5 (80-100) fl MCH 27.6 (26-34) pg MCHC 32.3 (32-36) g/dl RDW 14.6 H (11.5-14.5) % Plt Count 414 H (150-375) k/mm3 MPV 8.7 (7.4-10.4) fl Immature Gran % (Auto) 1.4 H (0-0.5) % Neut % (Auto) 79.8 H (45.5-73.1) % Lymph % (Auto) 8.8 L (18.3-44.2) % [place] % (Auto) 9.0 H (2.6-8.5) % Eos % (Auto) 0.7 (0-4.4) % Baso % (Auto) 0.3 (0.2-1.2) % Lymph # (Auto) 1.94 (0.9-3.2) K/mm3 [place] # (Auto) 2.0 H (0.1-0.6) K/mm3 Eos # (Auto) 0.2 (0-0.3) K/mm3 Baso # (Auto) 0.1 (0.0-0.1) K/mm3 Abs Immat Gran (auto) 0.30 H (0.00-0.031) K/mm3 Absolute Neuts (auto) 17.7 H (1.3-6.7) K/mm3 Absolute Nucleated RBC 0.000 (0.0-0.012) K/mm3 Nucleated RBC % 0.0 (0.0-0.2) % ESR > 140 H (0-20) mm/hr PT 17.4 H (11.1-14.7) Seconds INR 1.4 APTT 52.9 H (22.3-36.8) Seconds Methemoglobin (0-1.5) %THb Minute Volume Vent Mode Tidal Volume ml PEEP cmH2O Peak Inspir Pressure Pressure Support Sodium 130 L (137-145) mmol/L Potassium 3.8 (3.4-5.0) mmol/L Chloride 94 L (98-107) mmol/L Carbon Dioxide 28 (22-30) mmol/L Anion Gap 8 (4-12) mmol/L BUN 8 L (9-20) mg/dL Creatinine 0.70 (0.7-1.3) mg/dL Estim Creat Clear Calc 90 ml/min Estimated GFR > 60 (59 - ) Glucose 109 (65-110) mg/dL POC Capillary Glucose 93 (65-105) mg/dl Hemoglobin A1c 8.2 H (<5.7) % Lactic Acid 1.4 (0.7-2.0) mmol/L Calcium 8.2 L (8.4-10.2) mg/dL Phosphorus (2.5-4.5) mg/dL Magnesium (1.6-2.3) mg/dL Iron (49-181) ug/dL TIBC (265-497) ug/dL % Saturation (20-50) % Ferritin (11.1-264) ng/mL Total Bilirubin 0.6 (0.2-1.3) mg/dL AST 48 (17-59) U/L ALT 22 (6-50) U/L Alkaline Phosphatase 125 (38-126) U/L Total Creatine Kinase (55-170) U/L Troponin I (0.000-0.034) ng/mL C-Reactive Protein 20.4 H (<1.0) mg/dL NT-Pro-B Natriuret Pep (19.9-100) pg/mL Total Protein 7.0 (6.3-8.2) g/dL Albumin 2.9 L (3.5-5.1) g/dL Vitamin B12 (239-931) pg/mL Folate (2.76->20) ng/mL TSH (Reflex) (0.465-4.68) uIU/mL Urine Color Yellow (Yellow) Urine Appearance Clear (Clear) Urine pH 6.5 (5.0-9.0) Ur Specific [place] 1.012 (1.001-1.035) Urine Protein Trace (Negative) mg/dL Urine Glucose (UA) Negative (Negative) mg/dL Urine Ketones Negative (Negative) mg/dL Ur Blood (Man) 2+ H (Negative) Urine Nitrate Negative (Negative) Urine Bilirubin Negative (Negative) Urine Urobilinogen 1.0 (<2.0) mg/dL Add Ur Microanalysis Reviewed Leukocyte Esterase Rfl Trace H (Negative) CHERYL/UL Urine RBC 11-20 H (0-2) /hpf Urine WBC 0-5 (0-3) /hpf Ur Squamous Epith Cells None seen (Few) /hpf Urine Bacteria None seen /hpf Urine Casts 0-2 Nasal MRSA (PCR) (NOT DETECTE) Influenza A (RT-PCR) (Negative) Influenza B (RT-PCR) (Negative) SARS-CoV-2 RNA (RT-PCR) (Negative) Blood Type O Positive Antibody Screen Negative 02/28/24 02/28/24 02/28/24 Range/Units 20:51 21:31 21:32 WBC (4.5-10.0) K/mm3 RBC (4.6-6.20) M/mm3 Hgb (14.0-18.0) g/dL Hct (42.0-52.0) % MCV (80-100) fl MCH (26-34) pg MCHC (32-36) g/dl RDW (11.5-14.5) % Plt Count (150-375) k/mm3 MPV (7.4-10.4) fl Immature Gran % (Auto) (0-0.5) % Neut % (Auto) (45.5-73.1) % Lymph % (Auto) (18.3-44.2) % [place] % (Auto) (2.6-8.5) % Eos % (Auto) (0-4.4) % Baso % (Auto) (0.2-1.2) % Lymph # (Auto) (0.9-3.2) K/mm3 [place] # (Auto) (0.1-0.6) K/mm3 Eos # (Auto) (0-0.3) K/mm3 Baso # (Auto) (0.0-0.1) K/mm3 Abs Immat Gran (auto) (0.00-0.031) K/mm3 Absolute Neuts (auto) (1.3-6.7) K/mm3 Absolute Nucleated RBC (0.0-0.012) K/mm3 Nucleated RBC % (0.0-0.2) % ESR (0-20) mm/hr PT 18.3 H (11.1-14.7) Seconds INR 1.5 APTT 46.9 H (22.3-36.8) Seconds Methemoglobin (0-1.5) %THb Minute Volume Vent Mode Tidal Volume ml PEEP cmH2O Peak Inspir Pressure Pressure Support Sodium 132 L (137-145) mmol/L Potassium 3.7 (3.4-5.0) mmol/L Chloride 101 (98-107) mmol/L Carbon Dioxide 19 L (22-30) mmol/L Anion Gap 12 (4-12) mmol/L BUN 9 (9-20) mg/dL Creatinine 0.70 (0.7-1.3) mg/dL Estim Creat Clear Calc 90 ml/min Estimated GFR > 60 (59 - ) Glucose 197 H (65-110) mg/dL POC Capillary Glucose 149 H (65-105) mg/dl Hemoglobin A1c (<5.7) % Lactic Acid 5.0 H* (0.7-2.0) mmol/L Calcium 7.7 L (8.4-10.2) mg/dL Phosphorus 5.7 H (2.5-4.5) mg/dL Magnesium 2.1 (1.6-2.3) mg/dL Iron (49-181) ug/dL TIBC (265-497) ug/dL % Saturation (20-50) % Ferritin (11.1-264) ng/mL Total Bilirubin 0.5 (0.2-1.3) mg/dL AST 50 (17-59) U/L ALT 23 (6-50) U/L Alkaline Phosphatase 137 H (38-126) U/L Total Creatine Kinase 81 (55-170) U/L Troponin I 0.219 H* (0.000-0.034) ng/mL C-Reactive Protein (<1.0) mg/dL NT-Pro-B Natriuret Pep 2220 H (19.9-100) pg/mL Total Protein 7.0 (6.3-8.2) g/dL Albumin 2.9 L (3.5-5.1) g/dL Vitamin B12 (239-931) pg/mL Folate (2.76->20) ng/mL TSH (Reflex) (0.465-4.68) uIU/mL Urine Color (Yellow) Urine Appearance (Clear) Urine pH (5.0-9.0) Ur Specific [place] (1.001-1.035) Urine Protein (Negative) mg/dL Urine Glucose (UA) (Negative) mg/dL Urine Ketones (Negative) mg/dL Ur Blood (Man) (Negative) Urine Nitrate (Negative) Urine Bilirubin (Negative) Urine Urobilinogen (<2.0) mg/dL Add Ur Microanalysis Leukocyte Esterase Rfl (Negative) CHERYL/UL Urine RBC (0-2) /hpf Urine WBC (0-3) /hpf Ur Squamous Epith Cells (Few) /hpf Urine Bacteria /hpf Urine Casts Nasal MRSA (PCR) (NOT DETECTE) Influenza A (RT-PCR) (Negative) Influenza B (RT-PCR) (Negative) SARS-CoV-2 RNA (RT-PCR) (Negative) Blood Type Antibody Screen 02/28/24 02/29/24 02/29/24 Range/Units 22:57 00:29 04:26 WBC 33.7 H (4.5-10.0) K/mm3 RBC 3.40 L (4.6-6.20) M/mm3 Hgb 9.3 L (14.0-18.0) g/dL Hct 29.5 L (42.0-52.0) % MCV 86.8 (80-100) fl MCH 27.4 (26-34) pg MCHC 31.5 L (32-36) g/dl RDW 14.8 H (11.5-14.5) % Plt Count 477 H (150-375) k/mm3 MPV 8.5 (7.4-10.4) fl Immature Gran % (Auto) (0-0.5) % Neut % (Auto) (45.5-73.1) % Lymph % (Auto) (18.3-44.2) % [place] % (Auto) (2.6-8.5) % Eos % (Auto) (0-4.4) % Baso % (Auto) (0.2-1.2) % Lymph # (Auto) (0.9-3.2) K/mm3 [place] # (Auto) (0.1-0.6) K/mm3 Eos # (Auto) (0-0.3) K/mm3 Baso # (Auto) (0.0-0.1) K/mm3 Abs Immat Gran (auto) (0.00-0.031) K/mm3 Absolute Neuts (auto) (1.3-6.7) K/mm3 Absolute Nucleated RBC (0.0-0.012) K/mm3 Nucleated RBC % (0.0-0.2) % ESR (0-20) mm/hr PT (11.1-14.7) Seconds INR APTT (22.3-36.8) Seconds Methemoglobin (0-1.5) %THb Minute Volume Not Reportable Vent Mode Cmv Tidal Volume 450 ml PEEP 8 cmH2O Peak Inspir Pressure Not Reportable Pressure Support Not Reportable Sodium Cancelled (137-145) mmol/L Potassium (3.4-5.0) mmol/L Chloride (98-107) mmol/L Carbon Dioxide (22-30) mmol/L Anion Gap (4-12) mmol/L BUN (9-20) mg/dL Creatinine (0.7-1.3) mg/dL Estim Creat Clear Calc ml/min Estimated GFR (59 - ) Glucose (65-110) mg/dL POC Capillary Glucose (65-105) mg/dl Hemoglobin A1c (<5.7) % Lactic Acid (0.7-2.0) mmol/L Calcium (8.4-10.2) mg/dL Phosphorus (2.5-4.5) mg/dL Magnesium (1.6-2.3) mg/dL Iron (49-181) ug/dL TIBC (265-497) ug/dL % Saturation (20-50) % Ferritin (11.1-264) ng/mL Total Bilirubin (0.2-1.3) mg/dL AST (17-59) U/L ALT (6-50) U/L Alkaline Phosphatase (38-126) U/L Total Creatine Kinase (55-170) U/L Troponin I (0.000-0.034) ng/mL C-Reactive Protein (<1.0) mg/dL NT-Pro-B Natriuret Pep (19.9-100) pg/mL Total Protein (6.3-8.2) g/dL Albumin (3.5-5.1) g/dL Vitamin B12 (239-931) pg/mL Folate (2.76->20) ng/mL TSH (Reflex) (0.465-4.68) uIU/mL Urine Color (Yellow) Urine Appearance (Clear) Urine pH (5.0-9.0) Ur Specific [place] (1.001-1.035) Urine Protein (Negative) mg/dL Urine Glucose (UA) (Negative) mg/dL Urine Ketones (Negative) mg/dL Ur Blood (Man) (Negative) Urine Nitrate (Negative) Urine Bilirubin (Negative) Urine Urobilinogen (<2.0) mg/dL Add Ur Microanalysis Leukocyte Esterase Rfl (Negative) CHERYL/UL Urine RBC (0-2) /hpf Urine WBC (0-3) /hpf Ur Squamous Epith Cells (Few) /hpf Urine Bacteria /hpf Urine Casts Nasal MRSA (PCR) Not detected (NOT DETECTE) Influenza A (RT-PCR) Negative (Negative) Influenza B (RT-PCR) Negative (Negative) SARS-CoV-2 RNA (RT-PCR) Negative (Negative) Blood Type Antibody Screen 02/29/24 02/29/24 02/29/24 Range/Units 04:26 04:26 04:26 WBC (4.5-10.0) K/mm3 RBC (4.6-6.20) M/mm3 Hgb (14.0-18.0) g/dL Hct (42.0-52.0) % MCV (80-100) fl MCH (26-34) pg MCHC (32-36) g/dl RDW (11.5-14.5) % Plt Count (150-375) k/mm3 MPV (7.4-10.4) fl Immature Gran % (Auto) (0-0.5) % Neut % (Auto) (45.5-73.1) % Lymph % (Auto) (18.3-44.2) % [place] % (Auto) (2.6-8.5) % Eos % (Auto) (0-4.4) % Baso % (Auto) (0.2-1.2) % Lymph # (Auto) (0.9-3.2) K/mm3 [place] # (Auto) (0.1-0.6) K/mm3 Eos # (Auto) (0-0.3) K/mm3 Baso # (Auto) (0.0-0.1) K/mm3 Abs Immat Gran (auto) (0.00-0.031) K/mm3 Absolute Neuts (auto) (1.3-6.7) K/mm3 Absolute Nucleated RBC (0.0-0.012) K/mm3 Nucleated RBC % (0.0-0.2) % ESR (0-20) mm/hr PT (11.1-14.7) Seconds INR APTT (22.3-36.8) Seconds Methemoglobin (0-1.5) %THb Minute Volume Vent Mode Tidal Volume ml PEEP cmH2O Peak Inspir Pressure Pressure Support Sodium 131 L (137-145) mmol/L Potassium Cancelled 5.0 (3.4-5.0) mmol/L Chloride Cancelled 101 (98-107) mmol/L Carbon Dioxide Cancelled (22-30) mmol/L Anion Gap (4-12) mmol/L BUN (9-20) mg/dL Creatinine (0.7-1.3) mg/dL Estim Creat Clear Calc ml/min Estimated GFR (59 - ) Glucose (65-110) mg/dL POC Capillary Glucose (65-105) mg/dl Hemoglobin A1c (<5.7) % Lactic Acid (0.7-2.0) mmol/L Calcium (8.4-10.2) mg/dL Phosphorus (2.5-4.5) mg/dL Magnesium (1.6-2.3) mg/dL Iron (49-181) ug/dL TIBC (265-497) ug/dL % Saturation (20-50) % Ferritin (11.1-264) ng/mL Total Bilirubin (0.2-1.3) mg/dL AST (17-59) U/L ALT (6-50) U/L Alkaline Phosphatase (38-126) U/L Total Creatine Kinase (55-170) U/L Troponin I (0.000-0.034) ng/mL C-Reactive Protein (<1.0) mg/dL NT-Pro-B Natriuret Pep (19.9-100) pg/mL Total Protein (6.3-8.2) g/dL Albumin (3.5-5.1) g/dL Vitamin B12 (239-931) pg/mL Folate (2.76->20) ng/mL TSH (Reflex) (0.465-4.68) uIU/mL Urine Color (Yellow) Urine Appearance (Clear) Urine pH (5.0-9.0) Ur Specific [place] (1.001-1.035) Urine Protein (Negative) mg/dL Urine Glucose (UA) (Negative) mg/dL Urine Ketones (Negative) mg/dL Ur Blood (Man) (Negative) Urine Nitrate (Negative) Urine Bilirubin (Negative) Urine Urobilinogen (<2.0) mg/dL Add Ur Microanalysis Leukocyte Esterase Rfl (Negative) CHERYL/UL Urine RBC (0-2) /hpf Urine WBC (0-3) /hpf Ur Squamous Epith Cells (Few) /hpf Urine Bacteria /hpf Urine Casts Nasal MRSA (PCR) (NOT DETECTE) Influenza A (RT-PCR) (Negative) Influenza B (RT-PCR) (Negative) SARS-CoV-2 RNA (RT-PCR) (Negative) Blood Type Antibody Screen 02/29/24 02/29/24 02/29/24 Range/Units 04:26 04:26 04:26 WBC (4.5-10.0) K/mm3 RBC (4.6-6.20) M/mm3 Hgb (14.0-18.0) g/dL Hct (42.0-52.0) % MCV (80-100) fl MCH (26-34) pg MCHC (32-36) g/dl RDW (11.5-14.5) % Plt Count (150-375) k/mm3 MPV (7.4-10.4) fl Immature Gran % (Auto) (0-0.5) % Neut % (Auto) (45.5-73.1) % Lymph % (Auto) (18.3-44.2) % [place] % (Auto) (2.6-8.5) % Eos % (Auto) (0-4.4) % Baso % (Auto) (0.2-1.2) % Lymph # (Auto) (0.9-3.2) K/mm3 [place] # (Auto) (0.1-0.6) K/mm3 Eos # (Auto) (0-0.3) K/mm3 Baso # (Auto) (0.0-0.1) K/mm3 Abs Immat Gran (auto) (0.00-0.031) K/mm3 Absolute Neuts (auto) (1.3-6.7) K/mm3 Absolute Nucleated RBC (0.0-0.012) K/mm3 Nucleated RBC % (0.0-0.2) % ESR (0-20) mm/hr PT (11.1-14.7) Seconds INR APTT (22.3-36.8) Seconds Methemoglobin (0-1.5) %THb Minute Volume Vent Mode Tidal Volume ml PEEP cmH2O Peak Inspir Pressure Pressure Support Sodium (137-145) mmol/L Potassium (3.4-5.0) mmol/L Chloride (98-107) mmol/L Carbon Dioxide 23 (22-30) mmol/L Anion Gap Cancelled 7 (4-12) mmol/L BUN Cancelled 14 D (9-20) mg/dL Creatinine Cancelled (0.7-1.3) mg/dL Estim Creat Clear Calc ml/min Estimated GFR (59 - ) Glucose (65-110) mg/dL POC Capillary Glucose (65-105) mg/dl Hemoglobin A1c (<5.7) % Lactic Acid (0.7-2.0) mmol/L Calcium (8.4-10.2) mg/dL Phosphorus (2.5-4.5) mg/dL Magnesium (1.6-2.3) mg/dL Iron (49-181) ug/dL TIBC (265-497) ug/dL % Saturation (20-50) % Ferritin (11.1-264) ng/mL Total Bilirubin (0.2-1.3) mg/dL AST (17-59) U/L ALT (6-50) U/L Alkaline Phosphatase (38-126) U/L Total Creatine Kinase (55-170) U/L Troponin I (0.000-0.034) ng/mL C-Reactive Protein (<1.0) mg/dL NT-Pro-B Natriuret Pep (19.9-100) pg/mL Total Protein (6.3-8.2) g/dL Albumin (3.5-5.1) g/dL Vitamin B12 (239-931) pg/mL Folate (2.76->20) ng/mL TSH (Reflex) (0.465-4.68) uIU/mL Urine Color (Yellow) Urine Appearance (Clear) Urine pH (5.0-9.0) Ur Specific [place] (1.001-1.035) Urine Protein (Negative) mg/dL Urine Glucose (UA) (Negative) mg/dL Urine Ketones (Negative) mg/dL Ur Blood (Man) (Negative) Urine Nitrate (Negative) Urine Bilirubin (Negative) Urine Urobilinogen (<2.0) mg/dL Add Ur Microanalysis Leukocyte Esterase Rfl (Negative) CHERYL/UL Urine RBC (0-2) /hpf Urine WBC (0-3) /hpf Ur Squamous Epith Cells (Few) /hpf Urine Bacteria /hpf Urine Casts Nasal MRSA (PCR) (NOT DETECTE) Influenza A (RT-PCR) (Negative) Influenza B (RT-PCR) (Negative) SARS-CoV-2 RNA (RT-PCR) (Negative) Blood Type Antibody Screen 02/29/24 02/29/24 02/29/24 Range/Units 04:26 04:26 04:26 WBC (4.5-10.0) K/mm3 RBC (4.6-6.20) M/mm3 Hgb (14.0-18.0) g/dL Hct (42.0-52.0) % MCV (80-100) fl MCH (26-34) pg MCHC (32-36) g/dl RDW (11.5-14.5) % Plt Count (150-375) k/mm3 MPV (7.4-10.4) fl Immature Gran % (Auto) (0-0.5) % Neut % (Auto) (45.5-73.1) % Lymph % (Auto) (18.3-44.2) % [place] % (Auto) (2.6-8.5) % Eos % (Auto) (0-4.4) % Baso % (Auto) (0.2-1.2) % Lymph # (Auto) (0.9-3.2) K/mm3 [place] # (Auto) (0.1-0.6) K/mm3 Eos # (Auto) (0-0.3) K/mm3 Baso # (Auto) (0.0-0.1) K/mm3 Abs Immat Gran (auto) (0.00-0.031) K/mm3 Absolute Neuts (auto) (1.3-6.7) K/mm3 Absolute Nucleated RBC (0.0-0.012) K/mm3 Nucleated RBC % (0.0-0.2) % ESR (0-20) mm/hr PT (11.1-14.7) Seconds INR APTT (22.3-36.8) Seconds Methemoglobin (0-1.5) %THb Minute Volume Vent Mode Tidal Volume ml PEEP cmH2O Peak Inspir Pressure Pressure Support Sodium (137-145) mmol/L Potassium (3.4-5.0) mmol/L Chloride (98-107) mmol/L Carbon Dioxide (22-30) mmol/L Anion Gap (4-12) mmol/L BUN (9-20) mg/dL Creatinine 1.00 (0.7-1.3) mg/dL Estim Creat Clear Calc Cancelled 64 ml/min Estimated GFR Cancelled > 60 (59 - ) Glucose Cancelled (65-110) mg/dL POC Capillary Glucose (65-105) mg/dl Hemoglobin A1c (<5.7) % Lactic Acid (0.7-2.0) mmol/L Calcium (8.4-10.2) mg/dL Phosphorus (2.5-4.5) mg/dL Magnesium (1.6-2.3) mg/dL Iron (49-181) ug/dL TIBC (265-497) ug/dL % Saturation (20-50) % Ferritin (11.1-264) ng/mL Total Bilirubin (0.2-1.3) mg/dL AST (17-59) U/L ALT (6-50) U/L Alkaline Phosphatase (38-126) U/L Total Creatine Kinase (55-170) U/L Troponin I (0.000-0.034) ng/mL C-Reactive Protein (<1.0) mg/dL NT-Pro-B Natriuret Pep (19.9-100) pg/mL Total Protein (6.3-8.2) g/dL Albumin (3.5-5.1) g/dL Vitamin B12 (239-931) pg/mL Folate (2.76->20) ng/mL TSH (Reflex) (0.465-4.68) uIU/mL Urine Color (Yellow) Urine Appearance (Clear) Urine pH (5.0-9.0) Ur Specific [place] (1.001-1.035) Urine Protein (Negative) mg/dL Urine Glucose (UA) (Negative) mg/dL Urine Ketones (Negative) mg/dL Ur Blood (Man) (Negative) Urine Nitrate (Negative) Urine Bilirubin (Negative) Urine Urobilinogen (<2.0) mg/dL Add Ur Microanalysis Leukocyte Esterase Rfl (Negative) CHERYL/UL Urine RBC (0-2) /hpf Urine WBC (0-3) /hpf Ur Squamous Epith Cells (Few) /hpf Urine Bacteria /hpf Urine Casts Nasal MRSA (PCR) (NOT DETECTE) Influenza A (RT-PCR) (Negative) Influenza B (RT-PCR) (Negative) SARS-CoV-2 RNA (RT-PCR) (Negative) Blood Type Antibody Screen 02/29/24 02/29/24 02/29/24 Range/Units 04:26 04:26 04:26 WBC (4.5-10.0) K/mm3 RBC (4.6-6.20) M/mm3 Hgb (14.0-18.0) g/dL Hct (42.0-52.0) % MCV (80-100) fl MCH (26-34) pg MCHC (32-36) g/dl RDW (11.5-14.5) % Plt Count (150-375) k/mm3 MPV (7.4-10.4) fl Immature Gran % (Auto) (0-0.5) % Neut % (Auto) (45.5-73.1) % Lymph % (Auto) (18.3-44.2) % [place] % (Auto) (2.6-8.5) % Eos % (Auto) (0-4.4) % Baso % (Auto) (0.2-1.2) % Lymph # (Auto) (0.9-3.2) K/mm3 [place] # (Auto) (0.1-0.6) K/mm3 Eos # (Auto) (0-0.3) K/mm3 Baso # (Auto) (0.0-0.1) K/mm3 Abs Immat Gran (auto) (0.00-0.031) K/mm3 Absolute Neuts (auto) (1.3-6.7) K/mm3 Absolute Nucleated RBC (0.0-0.012) K/mm3 Nucleated RBC % (0.0-0.2) % ESR (0-20) mm/hr PT (11.1-14.7) Seconds INR APTT (22.3-36.8) Seconds Methemoglobin (0-1.5) %THb Minute Volume Vent Mode Tidal Volume ml PEEP cmH2O Peak Inspir Pressure Pressure Support Sodium (137-145) mmol/L Potassium (3.4-5.0) mmol/L Chloride (98-107) mmol/L Carbon Dioxide (22-30) mmol/L Anion Gap (4-12) mmol/L BUN (9-20) mg/dL Creatinine (0.7-1.3) mg/dL Estim Creat Clear Calc ml/min Estimated GFR (59 - ) Glucose 202 H (65-110) mg/dL POC Capillary Glucose (65-105) mg/dl Hemoglobin A1c (<5.7) % Lactic Acid 1.3 (0.7-2.0) mmol/L Calcium Cancelled 7.0 L (8.4-10.2) mg/dL Phosphorus (2.5-4.5) mg/dL Magnesium Cancelled 2.1 (1.6-2.3) mg/dL Iron 18 L (49-181) ug/dL TIBC 131 L (265-497) ug/dL % Saturation 14 L (20-50) % Ferritin 475.00 H (11.1-264) ng/mL Total Bilirubin (0.2-1.3) mg/dL AST (17-59) U/L ALT (6-50) U/L Alkaline Phosphatase (38-126) U/L Total Creatine Kinase (55-170) U/L Troponin I 3.170 H* D (0.000-0.034) ng/mL C-Reactive Protein (<1.0) mg/dL NT-Pro-B Natriuret Pep (19.9-100) pg/mL Total Protein (6.3-8.2) g/dL Albumin (3.5-5.1) g/dL Vitamin B12 (239-931) pg/mL Folate (2.76->20) ng/mL TSH (Reflex) (0.465-4.68) uIU/mL Urine Color (Yellow) Urine Appearance (Clear) Urine pH (5.0-9.0) Ur Specific [place] (1.001-1.035) Urine Protein (Negative) mg/dL Urine Glucose (UA) (Negative) mg/dL Urine Ketones (Negative) mg/dL Ur Blood (Man) (Negative) Urine Nitrate (Negative) Urine Bilirubin (Negative) Urine Urobilinogen (<2.0) mg/dL Add Ur Microanalysis Leukocyte Esterase Rfl (Negative) CHERYL/UL Urine RBC (0-2) /hpf Urine WBC (0-3) /hpf Ur Squamous Epith Cells (Few) /hpf Urine Bacteria /hpf Urine Casts Nasal MRSA (PCR) (NOT DETECTE) Influenza A (RT-PCR) (Negative) Influenza B (RT-PCR) (Negative) SARS-CoV-2 RNA (RT-PCR) (Negative) Blood Type Antibody Screen 02/29/24 02/29/24 Range/Units 04:26 05:36 WBC (4.5-10.0) K/mm3 RBC (4.6-6.20) M/mm3 Hgb (14.0-18.0) g/dL Hct (42.0-52.0) % MCV (80-100) fl MCH (26-34) pg MCHC (32-36) g/dl RDW (11.5-14.5) % Plt Count (150-375) k/mm3 MPV (7.4-10.4) fl Immature Gran % (Auto) (0-0.5) % Neut % (Auto) (45.5-73.1) % Lymph % (Auto) (18.3-44.2) % [place] % (Auto) (2.6-8.5) % Eos % (Auto) (0-4.4) % Baso % (Auto) (0.2-1.2) % Lymph # (Auto) (0.9-3.2) K/mm3 [place] # (Auto) (0.1-0.6) K/mm3 Eos # (Auto) (0-0.3) K/mm3 Baso # (Auto) (0.0-0.1) K/mm3 Abs Immat Gran (auto) (0.00-0.031) K/mm3 Absolute Neuts (auto) (1.3-6.7) K/mm3 Absolute Nucleated RBC (0.0-0.012) K/mm3 Nucleated RBC % (0.0-0.2) % ESR (0-20) mm/hr PT (11.1-14.7) Seconds INR APTT (22.3-36.8) Seconds Methemoglobin 0.3 (0-1.5) %THb Minute Volume Not Reportable Vent Mode Cmv Tidal Volume 450 ml PEEP 8 cmH2O Peak Inspir Pressure Not Reportable Pressure Support Not Reportable Sodium (137-145) mmol/L Potassium (3.4-5.0) mmol/L Chloride (98-107) mmol/L Carbon Dioxide (22-30) mmol/L Anion Gap (4-12) mmol/L BUN (9-20) mg/dL Creatinine (0.7-1.3) mg/dL Estim Creat Clear Calc ml/min Estimated GFR (59 - ) Glucose (65-110) mg/dL POC Capillary Glucose (65-105) mg/dl Hemoglobin A1c (<5.7) % Lactic Acid (0.7-2.0) mmol/L Calcium (8.4-10.2) mg/dL Phosphorus (2.5-4.5) mg/dL Magnesium (1.6-2.3) mg/dL Iron (49-181) ug/dL TIBC (265-497) ug/dL % Saturation (20-50) % Ferritin (11.1-264) ng/mL Total Bilirubin (0.2-1.3) mg/dL AST (17-59) U/L ALT (6-50) U/L Alkaline Phosphatase (38-126) U/L Total Creatine Kinase (55-170) U/L Troponin I Cancelled (0.000-0.034) ng/mL C-Reactive Protein (<1.0) mg/dL NT-Pro-B Natriuret Pep (19.9-100) pg/mL Total Protein (6.3-8.2) g/dL Albumin (3.5-5.1) g/dL Vitamin B12 676.0 (239-931) pg/mL Folate 2.1 L (2.76->20) ng/mL TSH (Reflex) 2.160 (0.465-4.68) uIU/mL Urine Color (Yellow) Urine Appearance (Clear) Urine pH (5.0-9.0) Ur Specific [place] (1.001-1.035) Urine Protein (Negative) mg/dL Urine Glucose (UA) (Negative) mg/dL Urine Ketones (Negative) mg/dL Ur Blood (Man) (Negative) Urine Nitrate (Negative) Urine Bilirubin (Negative) Urine Urobilinogen (<2.0) mg/dL Add Ur Microanalysis Leukocyte Esterase Rfl (Negative) CHERYL/UL Urine RBC (0-2) /hpf Urine WBC (0-3) /hpf Ur Squamous Epith Cells (Few) /hpf Urine Bacteria /hpf Urine Casts Nasal MRSA (PCR) (NOT DETECTE) Influenza A (RT-PCR) (Negative) Influenza B (RT-PCR) (Negative) SARS-CoV-2 RNA (RT-PCR) (Negative) Blood Type Antibody Screen <Verona Sánchez PA-C - Last Filed: 02/28/24 19:07> Lab Results 02/28/24 02/28/24 02/28/24 Range/Units 13:11 14:44 17:42 WBC 22.2 H (4.5-10.0) K/mm3 RBC 3.44 L (4.6-6.20) M/mm3 Hgb 9.5 L (14.0-18.0) g/dL Hct 29.4 L (42.0-52.0) % MCV 85.5 (80-100) fl MCH 27.6 (26-34) pg MCHC 32.3 (32-36) g/dl RDW 14.6 H (11.5-14.5) % Plt Count 414 H (150-375) k/mm3 MPV 8.7 (7.4-10.4) fl Immature Gran % (Auto) 1.4 H (0-0.5) % Neut % (Auto) 79.8 H (45.5-73.1) % Lymph % (Auto) 8.8 L (18.3-44.2) % [place] % (Auto) 9.0 H (2.6-8.5) % Eos % (Auto) 0.7 (0-4.4) % Baso % (Auto) 0.3 (0.2-1.2) % Lymph # (Auto) 1.94 (0.9-3.2) K/mm3 [place] # (Auto) 2.0 H (0.1-0.6) K/mm3 Eos # (Auto) 0.2 (0-0.3) K/mm3 Baso # (Auto) 0.1 (0.0-0.1) K/mm3 Abs Immat Gran (auto) 0.30 H (0.00-0.031) K/mm3 Absolute Neuts (auto) 17.7 H (1.3-6.7) K/mm3 Absolute Nucleated RBC 0.000 (0.0-0.012) K/mm3 Nucleated RBC % 0.0 (0.0-0.2) % ESR > 140 H (0-20) mm/hr PT 17.4 H (11.1-14.7) Seconds INR 1.4 APTT 52.9 H (22.3-36.8) Seconds Methemoglobin (0-1.5) %THb Minute Volume Vent Mode Tidal Volume ml PEEP cmH2O Peak Inspir Pressure Pressure Support Sodium 130 L (137-145) mmol/L Potassium 3.8 (3.4-5.0) mmol/L Chloride 94 L (98-107) mmol/L Carbon Dioxide 28 (22-30) mmol/L Anion Gap 8 (4-12) mmol/L BUN 8 L (9-20) mg/dL Creatinine 0.70 (0.7-1.3) mg/dL Estim Creat Clear Calc 90 ml/min Estimated GFR > 60 (59 - ) Glucose 109 (65-110) mg/dL POC Capillary Glucose 93 (65-105) mg/dl Hemoglobin A1c 8.2 H (<5.7) % Lactic Acid 1.4 (0.7-2.0) mmol/L Calcium 8.2 L (8.4-10.2) mg/dL Phosphorus (2.5-4.5) mg/dL Magnesium (1.6-2.3) mg/dL Iron (49-181) ug/dL TIBC (265-497) ug/dL % Saturation (20-50) % Ferritin (11.1-264) ng/mL Total Bilirubin 0.6 (0.2-1.3) mg/dL AST 48 (17-59) U/L ALT 22 (6-50) U/L Alkaline Phosphatase 125 (38-126) U/L Total Creatine Kinase (55-170) U/L Troponin I (0.000-0.034) ng/mL C-Reactive Protein 20.4 H (<1.0) mg/dL NT-Pro-B Natriuret Pep (19.9-100) pg/mL Total Protein 7.0 (6.3-8.2) g/dL Albumin 2.9 L (3.5-5.1) g/dL Vitamin B12 (239-931) pg/mL Folate (2.76->20) ng/mL TSH (Reflex) (0.465-4.68) uIU/mL Urine Color Yellow (Yellow) Urine Appearance Clear (Clear) Urine pH 6.5 (5.0-9.0) Ur Specific [place] 1.012 (1.001-1.035) Urine Protein Trace (Negative) mg/dL Urine Glucose (UA) Negative (Negative) mg/dL Urine Ketones Negative (Negative) mg/dL Ur Blood (Man) 2+ H (Negative) Urine Nitrate Negative (Negative) Urine Bilirubin Negative (Negative) Urine Urobilinogen 1.0 (<2.0) mg/dL Add Ur Microanalysis Reviewed Leukocyte Esterase Rfl Trace H (Negative) CHERYL/UL Urine RBC 11-20 H (0-2) /hpf Urine WBC 0-5 (0-3) /hpf Ur Squamous Epith Cells None seen (Few) /hpf Urine Bacteria None seen /hpf Urine Casts 0-2 Nasal MRSA (PCR) (NOT DETECTE) Influenza A (RT-PCR) (Negative) Influenza B (RT-PCR) (Negative) SARS-CoV-2 RNA (RT-PCR) (Negative) Blood Type O Positive Antibody Screen Negative 02/28/24 02/28/24 02/28/24 Range/Units 20:51 21:31 21:32 WBC (4.5-10.0) K/mm3 RBC (4.6-6.20) M/mm3 Hgb (14.0-18.0) g/dL Hct (42.0-52.0) % MCV (80-100) fl MCH (26-34) pg MCHC (32-36) g/dl RDW (11.5-14.5) % Plt Count (150-375) k/mm3 MPV (7.4-10.4) fl Immature Gran % (Auto) (0-0.5) % Neut % (Auto) (45.5-73.1) % Lymph % (Auto) (18.3-44.2) % [place] % (Auto) (2.6-8.5) % Eos % (Auto) (0-4.4) % Baso % (Auto) (0.2-1.2) % Lymph # (Auto) (0.9-3.2) K/mm3 [place] # (Auto) (0.1-0.6) K/mm3 Eos # (Auto) (0-0.3) K/mm3 Baso # (Auto) (0.0-0.1) K/mm3 Abs Immat Gran (auto) (0.00-0.031) K/mm3 Absolute Neuts (auto) (1.3-6.7) K/mm3 Absolute Nucleated RBC (0.0-0.012) K/mm3 Nucleated RBC % (0.0-0.2) % ESR (0-20) mm/hr PT 18.3 H (11.1-14.7) Seconds INR 1.5 APTT 46.9 H (22.3-36.8) Seconds Methemoglobin (0-1.5) %THb Minute Volume Vent Mode Tidal Volume ml PEEP cmH2O Peak Inspir Pressure Pressure Support Sodium 132 L (137-145) mmol/L Potassium 3.7 (3.4-5.0) mmol/L Chloride 101 (98-107) mmol/L Carbon Dioxide 19 L (22-30) mmol/L Anion Gap 12 (4-12) mmol/L BUN 9 (9-20) mg/dL Creatinine 0.70 (0.7-1.3) mg/dL Estim Creat Clear Calc 90 ml/min Estimated GFR > 60 (59 - ) Glucose 197 H (65-110) mg/dL POC Capillary Glucose 149 H (65-105) mg/dl Hemoglobin A1c (<5.7) % Lactic Acid 5.0 H* (0.7-2.0) mmol/L Calcium 7.7 L (8.4-10.2) mg/dL Phosphorus 5.7 H (2.5-4.5) mg/dL Magnesium 2.1 (1.6-2.3) mg/dL Iron (49-181) ug/dL TIBC (265-497) ug/dL % Saturation (20-50) % Ferritin (11.1-264) ng/mL Total Bilirubin 0.5 (0.2-1.3) mg/dL AST 50 (17-59) U/L ALT 23 (6-50) U/L Alkaline Phosphatase 137 H (38-126) U/L Total Creatine Kinase 81 (55-170) U/L Troponin I 0.219 H* (0.000-0.034) ng/mL C-Reactive Protein (<1.0) mg/dL NT-Pro-B Natriuret Pep 2220 H (19.9-100) pg/mL Total Protein 7.0 (6.3-8.2) g/dL Albumin 2.9 L (3.5-5.1) g/dL Vitamin B12 (239-931) pg/mL Folate (2.76->20) ng/mL TSH (Reflex) (0.465-4.68) uIU/mL Urine Color (Yellow) Urine Appearance (Clear) Urine pH (5.0-9.0) Ur Specific [place] (1.001-1.035) Urine Protein (Negative) mg/dL Urine Glucose (UA) (Negative) mg/dL Urine Ketones (Negative) mg/dL Ur Blood (Man) (Negative) Urine Nitrate (Negative) Urine Bilirubin (Negative) Urine Urobilinogen (<2.0) mg/dL Add Ur Microanalysis Leukocyte Esterase Rfl (Negative) CHERYL/UL Urine RBC (0-2) /hpf Urine WBC (0-3) /hpf Ur Squamous Epith Cells (Few) /hpf Urine Bacteria /hpf Urine Casts Nasal MRSA (PCR) (NOT DETECTE) Influenza A (RT-PCR) (Negative) Influenza B (RT-PCR) (Negative) SARS-CoV-2 RNA (RT-PCR) (Negative) Blood Type Antibody Screen 02/28/24 02/29/24 02/29/24 Range/Units 22:57 00:29 04:26 WBC 33.7 H (4.5-10.0) K/mm3 RBC 3.40 L (4.6-6.20) M/mm3 Hgb 9.3 L (14.0-18.0) g/dL Hct 29.5 L (42.0-52.0) % MCV 86.8 (80-100) fl MCH 27.4 (26-34) pg MCHC 31.5 L (32-36) g/dl RDW 14.8 H (11.5-14.5) % Plt Count 477 H (150-375) k/mm3 MPV 8.5 (7.4-10.4) fl Immature Gran % (Auto) (0-0.5) % Neut % (Auto) (45.5-73.1) % Lymph % (Auto) (18.3-44.2) % [place] % (Auto) (2.6-8.5) % Eos % (Auto) (0-4.4) % Baso % (Auto) (0.2-1.2) % Lymph # (Auto) (0.9-3.2) K/mm3 [place] # (Auto) (0.1-0.6) K/mm3 Eos # (Auto) (0-0.3) K/mm3 Baso # (Auto) (0.0-0.1) K/mm3 Abs Immat Gran (auto) (0.00-0.031) K/mm3 Absolute Neuts (auto) (1.3-6.7) K/mm3 Absolute Nucleated RBC (0.0-0.012) K/mm3 Nucleated RBC % (0.0-0.2) % ESR (0-20) mm/hr PT (11.1-14.7) Seconds INR APTT (22.3-36.8) Seconds Methemoglobin (0-1.5) %THb Minute Volume Not Reportable Vent Mode Cmv Tidal Volume 450 ml PEEP 8 cmH2O Peak Inspir Pressure Not Reportable Pressure Support Not Reportable Sodium Cancelled (137-145) mmol/L Potassium (3.4-5.0) mmol/L Chloride (98-107) mmol/L Carbon Dioxide (22-30) mmol/L Anion Gap (4-12) mmol/L BUN (9-20) mg/dL Creatinine (0.7-1.3) mg/dL Estim Creat Clear Calc ml/min Estimated GFR (59 - ) Glucose (65-110) mg/dL POC Capillary Glucose (65-105) mg/dl Hemoglobin A1c (<5.7) % Lactic Acid (0.7-2.0) mmol/L Calcium (8.4-10.2) mg/dL Phosphorus (2.5-4.5) mg/dL Magnesium (1.6-2.3) mg/dL Iron (49-181) ug/dL TIBC (265-497) ug/dL % Saturation (20-50) % Ferritin (11.1-264) ng/mL Total Bilirubin (0.2-1.3) mg/dL AST (17-59) U/L ALT (6-50) U/L Alkaline Phosphatase (38-126) U/L Total Creatine Kinase (55-170) U/L Troponin I (0.000-0.034) ng/mL C-Reactive Protein (<1.0) mg/dL NT-Pro-B Natriuret Pep (19.9-100) pg/mL Total Protein (6.3-8.2) g/dL Albumin (3.5-5.1) g/dL Vitamin B12 (239-931) pg/mL Folate (2.76->20) ng/mL TSH (Reflex) (0.465-4.68) uIU/mL Urine Color (Yellow) Urine Appearance (Clear) Urine pH (5.0-9.0) Ur Specific [place] (1.001-1.035) Urine Protein (Negative) mg/dL Urine Glucose (UA) (Negative) mg/dL Urine Ketones (Negative) mg/dL Ur Blood (Man) (Negative) Urine Nitrate (Negative) Urine Bilirubin (Negative) Urine Urobilinogen (<2.0) mg/dL Add Ur Microanalysis Leukocyte Esterase Rfl (Negative) CHERYL/UL Urine RBC (0-2) /hpf Urine WBC (0-3) /hpf Ur Squamous Epith Cells (Few) /hpf Urine Bacteria /hpf Urine Casts Nasal MRSA (PCR) Not detected (NOT DETECTE) Influenza A (RT-PCR) Negative (Negative) Influenza B (RT-PCR) Negative (Negative) SARS-CoV-2 RNA (RT-PCR) Negative (Negative) Blood Type Antibody Screen 02/29/24 02/29/24 02/29/24 Range/Units 04:26 04:26 04:26 WBC (4.5-10.0) K/mm3 RBC (4.6-6.20) M/mm3 Hgb (14.0-18.0) g/dL Hct (42.0-52.0) % MCV (80-100) fl MCH (26-34) pg MCHC (32-36) g/dl RDW (11.5-14.5) % Plt Count (150-375) k/mm3 MPV (7.4-10.4) fl Immature Gran % (Auto) (0-0.5) % Neut % (Auto) (45.5-73.1) % Lymph % (Auto) (18.3-44.2) % [place] % (Auto) (2.6-8.5) % Eos % (Auto) (0-4.4) % Baso % (Auto) (0.2-1.2) % Lymph # (Auto) (0.9-3.2) K/mm3 [place] # (Auto) (0.1-0.6) K/mm3 Eos # (Auto) (0-0.3) K/mm3 Baso # (Auto) (0.0-0.1) K/mm3 Abs Immat Gran (auto) (0.00-0.031) K/mm3 Absolute Neuts (auto) (1.3-6.7) K/mm3 Absolute Nucleated RBC (0.0-0.012) K/mm3 Nucleated RBC % (0.0-0.2) % ESR (0-20) mm/hr PT (11.1-14.7) Seconds INR APTT (22.3-36.8) Seconds Methemoglobin (0-1.5) %THb Minute Volume Vent Mode Tidal Volume ml PEEP cmH2O Peak Inspir Pressure Pressure Support Sodium 131 L (137-145) mmol/L Potassium Cancelled 5.0 (3.4-5.0) mmol/L Chloride Cancelled 101 (98-107) mmol/L Carbon Dioxide Cancelled (22-30) mmol/L Anion Gap (4-12) mmol/L BUN (9-20) mg/dL Creatinine (0.7-1.3) mg/dL Estim Creat Clear Calc ml/min Estimated GFR (59 - ) Glucose (65-110) mg/dL POC Capillary Glucose (65-105) mg/dl Hemoglobin A1c (<5.7) % Lactic Acid (0.7-2.0) mmol/L Calcium (8.4-10.2) mg/dL Phosphorus (2.5-4.5) mg/dL Magnesium (1.6-2.3) mg/dL Iron (49-181) ug/dL TIBC (265-497) ug/dL % Saturation (20-50) % Ferritin (11.1-264) ng/mL Total Bilirubin (0.2-1.3) mg/dL AST (17-59) U/L ALT (6-50) U/L Alkaline Phosphatase (38-126) U/L Total Creatine Kinase (55-170) U/L Troponin I (0.000-0.034) ng/mL C-Reactive Protein (<1.0) mg/dL NT-Pro-B Natriuret Pep (19.9-100) pg/mL Total Protein (6.3-8.2) g/dL Albumin (3.5-5.1) g/dL Vitamin B12 (239-931) pg/mL Folate (2.76->20) ng/mL TSH (Reflex) (0.465-4.68) uIU/mL Urine Color (Yellow) Urine Appearance (Clear) Urine pH (5.0-9.0) Ur Specific [place] (1.001-1.035) Urine Protein (Negative) mg/dL Urine Glucose (UA) (Negative) mg/dL Urine Ketones (Negative) mg/dL Ur Blood (Man) (Negative) Urine Nitrate (Negative) Urine Bilirubin (Negative) Urine Urobilinogen (<2.0) mg/dL Add Ur Microanalysis Leukocyte Esterase Rfl (Negative) CHERYL/UL Urine RBC (0-2) /hpf Urine WBC (0-3) /hpf Ur Squamous Epith Cells (Few) /hpf Urine Bacteria /hpf Urine Casts Nasal MRSA (PCR) (NOT DETECTE) Influenza A (RT-PCR) (Negative) Influenza B (RT-PCR) (Negative) SARS-CoV-2 RNA (RT-PCR) (Negative) Blood Type Antibody Screen 02/29/24 02/29/24 02/29/24 Range/Units 04:26 04:26 04:26 WBC (4.5-10.0) K/mm3 RBC (4.6-6.20) M/mm3 Hgb (14.0-18.0) g/dL Hct (42.0-52.0) % MCV (80-100) fl MCH (26-34) pg MCHC (32-36) g/dl RDW (11.5-14.5) % Plt Count (150-375) k/mm3 MPV (7.4-10.4) fl Immature Gran % (Auto) (0-0.5) % Neut % (Auto) (45.5-73.1) % Lymph % (Auto) (18.3-44.2) % [place] % (Auto) (2.6-8.5) % Eos % (Auto) (0-4.4) % Baso % (Auto) (0.2-1.2) % Lymph # (Auto) (0.9-3.2) K/mm3 [place] # (Auto) (0.1-0.6) K/mm3 Eos # (Auto) (0-0.3) K/mm3 Baso # (Auto) (0.0-0.1) K/mm3 Abs Immat Gran (auto) (0.00-0.031) K/mm3 Absolute Neuts (auto) (1.3-6.7) K/mm3 Absolute Nucleated RBC (0.0-0.012) K/mm3 Nucleated RBC % (0.0-0.2) % ESR (0-20) mm/hr PT (11.1-14.7) Seconds INR APTT (22.3-36.8) Seconds Methemoglobin (0-1.5) %THb Minute Volume Vent Mode Tidal Volume ml PEEP cmH2O Peak Inspir Pressure Pressure Support Sodium (137-145) mmol/L Potassium (3.4-5.0) mmol/L Chloride (98-107) mmol/L Carbon Dioxide 23 (22-30) mmol/L Anion Gap Cancelled 7 (4-12) mmol/L BUN Cancelled 14 D (9-20) mg/dL Creatinine Cancelled (0.7-1.3) mg/dL Estim Creat Clear Calc ml/min Estimated GFR (59 - ) Glucose (65-110) mg/dL POC Capillary Glucose (65-105) mg/dl Hemoglobin A1c (<5.7) % Lactic Acid (0.7-2.0) mmol/L Calcium (8.4-10.2) mg/dL Phosphorus (2.5-4.5) mg/dL Magnesium (1.6-2.3) mg/dL Iron (49-181) ug/dL TIBC (265-497) ug/dL % Saturation (20-50) % Ferritin (11.1-264) ng/mL Total Bilirubin (0.2-1.3) mg/dL AST (17-59) U/L ALT (6-50) U/L Alkaline Phosphatase (38-126) U/L Total Creatine Kinase (55-170) U/L Troponin I (0.000-0.034) ng/mL C-Reactive Protein (<1.0) mg/dL NT-Pro-B Natriuret Pep (19.9-100) pg/mL Total Protein (6.3-8.2) g/dL Albumin (3.5-5.1) g/dL Vitamin B12 (239-931) pg/mL Folate (2.76->20) ng/mL TSH (Reflex) (0.465-4.68) uIU/mL Urine Color (Yellow) Urine Appearance (Clear) Urine pH (5.0-9.0) Ur Specific [place] (1.001-1.035) Urine Protein (Negative) mg/dL Urine Glucose (UA) (Negative) mg/dL Urine Ketones (Negative) mg/dL Ur Blood (Man) (Negative) Urine Nitrate (Negative) Urine Bilirubin (Negative) Urine Urobilinogen (<2.0) mg/dL Add Ur Microanalysis Leukocyte Esterase Rfl (Negative) CHERYL/UL Urine RBC (0-2) /hpf Urine WBC (0-3) /hpf Ur Squamous Epith Cells (Few) /hpf Urine Bacteria /hpf Urine Casts Nasal MRSA (PCR) (NOT DETECTE) Influenza A (RT-PCR) (Negative) Influenza B (RT-PCR) (Negative) SARS-CoV-2 RNA (RT-PCR) (Negative) Blood Type Antibody Screen 02/29/24 02/29/24 02/29/24 Range/Units 04:26 04:26 04:26 WBC (4.5-10.0) K/mm3 RBC (4.6-6.20) M/mm3 Hgb (14.0-18.0) g/dL Hct (42.0-52.0) % MCV (80-100) fl MCH (26-34) pg MCHC (32-36) g/dl RDW (11.5-14.5) % Plt Count (150-375) k/mm3 MPV (7.4-10.4) fl Immature Gran % (Auto) (0-0.5) % Neut % (Auto) (45.5-73.1) % Lymph % (Auto) (18.3-44.2) % [place] % (Auto) (2.6-8.5) % Eos % (Auto) (0-4.4) % Baso % (Auto) (0.2-1.2) % Lymph # (Auto) (0.9-3.2) K/mm3 [place] # (Auto) (0.1-0.6) K/mm3 Eos # (Auto) (0-0.3) K/mm3 Baso # (Auto) (0.0-0.1) K/mm3 Abs Immat Gran (auto) (0.00-0.031) K/mm3 Absolute Neuts (auto) (1.3-6.7) K/mm3 Absolute Nucleated RBC (0.0-0.012) K/mm3 Nucleated RBC % (0.0-0.2) % ESR (0-20) mm/hr PT (11.1-14.7) Seconds INR APTT (22.3-36.8) Seconds Methemoglobin (0-1.5) %THb Minute Volume Vent Mode Tidal Volume ml PEEP cmH2O Peak Inspir Pressure Pressure Support Sodium (137-145) mmol/L Potassium (3.4-5.0) mmol/L Chloride (98-107) mmol/L Carbon Dioxide (22-30) mmol/L Anion Gap (4-12) mmol/L BUN (9-20) mg/dL Creatinine 1.00 (0.7-1.3) mg/dL Estim Creat Clear Calc Cancelled 64 ml/min Estimated GFR Cancelled > 60 (59 - ) Glucose Cancelled (65-110) mg/dL POC Capillary Glucose (65-105) mg/dl Hemoglobin A1c (<5.7) % Lactic Acid (0.7-2.0) mmol/L Calcium (8.4-10.2) mg/dL Phosphorus (2.5-4.5) mg/dL Magnesium (1.6-2.3) mg/dL Iron (49-181) ug/dL TIBC (265-497) ug/dL % Saturation (20-50) % Ferritin (11.1-264) ng/mL Total Bilirubin (0.2-1.3) mg/dL AST (17-59) U/L ALT (6-50) U/L Alkaline Phosphatase (38-126) U/L Total Creatine Kinase (55-170) U/L Troponin I (0.000-0.034) ng/mL C-Reactive Protein (<1.0) mg/dL NT-Pro-B Natriuret Pep (19.9-100) pg/mL Total Protein (6.3-8.2) g/dL Albumin (3.5-5.1) g/dL Vitamin B12 (239-931) pg/mL Folate (2.76->20) ng/mL TSH (Reflex) (0.465-4.68) uIU/mL Urine Color (Yellow) Urine Appearance (Clear) Urine pH (5.0-9.0) Ur Specific [place] (1.001-1.035) Urine Protein (Negative) mg/dL Urine Glucose (UA) (Negative) mg/dL Urine Ketones (Negative) mg/dL Ur Blood (Man) (Negative) Urine Nitrate (Negative) Urine Bilirubin (Negative) Urine Urobilinogen (<2.0) mg/dL Add Ur Microanalysis Leukocyte Esterase Rfl (Negative) CHERYL/UL Urine RBC (0-2) /hpf Urine WBC (0-3) /hpf Ur Squamous Epith Cells (Few) /hpf Urine Bacteria /hpf Urine Casts Nasal MRSA (PCR) (NOT DETECTE) Influenza A (RT-PCR) (Negative) Influenza B (RT-PCR) (Negative) SARS-CoV-2 RNA (RT-PCR) (Negative) Blood Type Antibody Screen 02/29/24 02/29/24 02/29/24 Range/Units 04:26 04:26 04:26 WBC (4.5-10.0) K/mm3 RBC (4.6-6.20) M/mm3 Hgb (14.0-18.0) g/dL Hct (42.0-52.0) % MCV (80-100) fl MCH (26-34) pg MCHC (32-36) g/dl RDW (11.5-14.5) % Plt Count (150-375) k/mm3 MPV (7.4-10.4) fl Immature Gran % (Auto) (0-0.5) % Neut % (Auto) (45.5-73.1) % Lymph % (Auto) (18.3-44.2) % [place] % (Auto) (2.6-8.5) % Eos % (Auto) (0-4.4) % Baso % (Auto) (0.2-1.2) % Lymph # (Auto) (0.9-3.2) K/mm3 [place] # (Auto) (0.1-0.6) K/mm3 Eos # (Auto) (0-0.3) K/mm3 Baso # (Auto) (0.0-0.1) K/mm3 Abs Immat Gran (auto) (0.00-0.031) K/mm3 Absolute Neuts (auto) (1.3-6.7) K/mm3 Absolute Nucleated RBC (0.0-0.012) K/mm3 Nucleated RBC % (0.0-0.2) % ESR (0-20) mm/hr PT (11.1-14.7) Seconds INR APTT (22.3-36.8) Seconds Methemoglobin (0-1.5) %THb Minute Volume Vent Mode Tidal Volume ml PEEP cmH2O Peak Inspir Pressure Pressure Support Sodium (137-145) mmol/L Potassium (3.4-5.0) mmol/L Chloride (98-107) mmol/L Carbon Dioxide (22-30) mmol/L Anion Gap (4-12) mmol/L BUN (9-20) mg/dL Creatinine (0.7-1.3) mg/dL Estim Creat Clear Calc ml/min Estimated GFR (59 - ) Glucose 202 H (65-110) mg/dL POC Capillary Glucose (65-105) mg/dl Hemoglobin A1c (<5.7) % Lactic Acid 1.3 (0.7-2.0) mmol/L Calcium Cancelled 7.0 L (8.4-10.2) mg/dL Phosphorus (2.5-4.5) mg/dL Magnesium Cancelled 2.1 (1.6-2.3) mg/dL Iron 18 L (49-181) ug/dL TIBC 131 L (265-497) ug/dL % Saturation 14 L (20-50) % Ferritin 475.00 H (11.1-264) ng/mL Total Bilirubin (0.2-1.3) mg/dL AST (17-59) U/L ALT (6-50) U/L Alkaline Phosphatase (38-126) U/L Total Creatine Kinase (55-170) U/L Troponin I 3.170 H* D (0.000-0.034) ng/mL C-Reactive Protein (<1.0) mg/dL NT-Pro-B Natriuret Pep (19.9-100) pg/mL Total Protein (6.3-8.2) g/dL Albumin (3.5-5.1) g/dL Vitamin B12 (239-931) pg/mL Folate (2.76->20) ng/mL TSH (Reflex) (0.465-4.68) uIU/mL Urine Color (Yellow) Urine Appearance (Clear) Urine pH (5.0-9.0) Ur Specific [place] (1.001-1.035) Urine Protein (Negative) mg/dL Urine Glucose (UA) (Negative) mg/dL Urine Ketones (Negative) mg/dL Ur Blood (Man) (Negative) Urine Nitrate (Negative) Urine Bilirubin (Negative) Urine Urobilinogen (<2.0) mg/dL Add Ur Microanalysis Leukocyte Esterase Rfl (Negative) CHERYL/UL Urine RBC (0-2) /hpf Urine WBC (0-3) /hpf Ur Squamous Epith Cells (Few) /hpf Urine Bacteria /hpf Urine Casts Nasal MRSA (PCR) (NOT DETECTE) Influenza A (RT-PCR) (Negative) Influenza B (RT-PCR) (Negative) SARS-CoV-2 RNA (RT-PCR) (Negative) Blood Type Antibody Screen 02/29/24 02/29/24 Range/Units 04:26 05:36 WBC (4.5-10.0) K/mm3 RBC (4.6-6.20) M/mm3 Hgb (14.0-18.0) g/dL Hct (42.0-52.0) % MCV (80-100) fl MCH (26-34) pg MCHC (32-36) g/dl RDW (11.5-14.5) % Plt Count (150-375) k/mm3 MPV (7.4-10.4) fl Immature Gran % (Auto) (0-0.5) % Neut % (Auto) (45.5-73.1) % Lymph % (Auto) (18.3-44.2) % [place] % (Auto) (2.6-8.5) % Eos % (Auto) (0-4.4) % Baso % (Auto) (0.2-1.2) % Lymph # (Auto) (0.9-3.2) K/mm3 [place] # (Auto) (0.1-0.6) K/mm3 Eos # (Auto) (0-0.3) K/mm3 Baso # (Auto) (0.0-0.1) K/mm3 Abs Immat Gran (auto) (0.00-0.031) K/mm3 Absolute Neuts (auto) (1.3-6.7) K/mm3 Absolute Nucleated RBC (0.0-0.012) K/mm3 Nucleated RBC % (0.0-0.2) % ESR (0-20) mm/hr PT (11.1-14.7) Seconds INR APTT (22.3-36.8) Seconds Methemoglobin 0.3 (0-1.5) %THb Minute Volume Not Reportable Vent Mode Cmv Tidal Volume 450 ml PEEP 8 cmH2O Peak Inspir Pressure Not Reportable Pressure Support Not Reportable Sodium (137-145) mmol/L Potassium (3.4-5.0) mmol/L Chloride (98-107) mmol/L Carbon Dioxide (22-30) mmol/L Anion Gap (4-12) mmol/L BUN (9-20) mg/dL Creatinine (0.7-1.3) mg/dL Estim Creat Clear Calc ml/min Estimated GFR (59 - ) Glucose (65-110) mg/dL POC Capillary Glucose (65-105) mg/dl Hemoglobin A1c (<5.7) % Lactic Acid (0.7-2.0) mmol/L Calcium (8.4-10.2) mg/dL Phosphorus (2.5-4.5) mg/dL Magnesium (1.6-2.3) mg/dL Iron (49-181) ug/dL TIBC (265-497) ug/dL % Saturation (20-50) % Ferritin (11.1-264) ng/mL Total Bilirubin (0.2-1.3) mg/dL AST (17-59) U/L ALT (6-50) U/L Alkaline Phosphatase (38-126) U/L Total Creatine Kinase (55-170) U/L Troponin I Cancelled (0.000-0.034) ng/mL C-Reactive Protein (<1.0) mg/dL NT-Pro-B Natriuret Pep (19.9-100) pg/mL Total Protein (6.3-8.2) g/dL Albumin (3.5-5.1) g/dL Vitamin B12 676.0 (239-931) pg/mL Folate 2.1 L (2.76->20) ng/mL TSH (Reflex) 2.160 (0.465-4.68) uIU/mL Urine Color (Yellow) Urine Appearance (Clear) Urine pH (5.0-9.0) Ur Specific [place] (1.001-1.035) Urine Protein (Negative) mg/dL Urine Glucose (UA) (Negative) mg/dL Urine Ketones (Negative) mg/dL Ur Blood (Man) (Negative) Urine Nitrate (Negative) Urine Bilirubin (Negative) Urine Urobilinogen (<2.0) mg/dL Add Ur Microanalysis Leukocyte Esterase Rfl (Negative) CHERYL/UL Urine RBC (0-2) /hpf Urine WBC (0-3) /hpf Ur Squamous Epith Cells (Few) /hpf Urine Bacteria /hpf Urine Casts Nasal MRSA (PCR) (NOT DETECTE) Influenza A (RT-PCR) (Negative) Influenza B (RT-PCR) (Negative) SARS-CoV-2 RNA (RT-PCR) (Negative) Blood Type Antibody Screen <Juli Macedo MD - Last Filed: 02/29/24 15:25> ABG Data ABG results: 02/28/24 02/29/24 22:57 05:36 Puncture Site Right radial Left brachial ABG pH 7.300 L 7.344 L ABG pCO2 46.5 H 42.1 ABG pO2 313.4 H 315.9 H ABG PO2/FiO2 Ratio 3.48 4.51 ABG HCO3 22.4 22.4 ABG O2 Saturation 99.7 99.7 ABG O2 Content 16.2 19.3 ABG Base Excess -4.0 -3.2 A-a Gradient 280.6 137.9 Oxyhemoglobin 98.3 97.8 Carboxyhemoglobin 1.6 Reduced Hemoglobin 0.3 Total Hemoglobin 11.1 L 13.5 O2 Delivery Device Ventilator Ventilator O2 Liters/Min Not Reportable Not Reportable Vent Rate 20 24 FiO2 90 70 <Verona Sánchez PA-C - Last Filed: 02/28/24 19:07> 02/28/24 02/29/24 22:57 05:36 Puncture Site Right radial Left brachial ABG pH 7.300 L 7.344 L ABG pCO2 46.5 H 42.1 ABG pO2 313.4 H 315.9 H ABG PO2/FiO2 Ratio 3.48 4.51 ABG HCO3 22.4 22.4 ABG O2 Saturation 99.7 99.7 ABG O2 Content 16.2 19.3 ABG Base Excess -4.0 -3.2 A-a Gradient 280.6 137.9 Oxyhemoglobin 98.3 97.8 Carboxyhemoglobin 1.6 Reduced Hemoglobin 0.3 Total Hemoglobin 11.1 L 13.5 O2 Delivery Device Ventilator Ventilator O2 Liters/Min Not Reportable Not Reportable Vent Rate 20 24 FiO2 90 70 <Juli Macedo MD - Last Filed: 02/29/24 15:25> Imaging Data Attestation: I personally reviewed and interpreted this imaging study as follows: <Verona Sánchez PA-C - Last Filed: 02/28/24 19:07> Radiologist's impression: ITS Impressions Lower Extremity CTA 02/28/24 14:54 IMPRESSION: 1. 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 2. Moderate stenosis of right popliteal artery. 3. Osteomyelitis involving first proximal and distal phalanges and head of first metatarsal. <Verona Sánchez PA-C - Last Filed: 02/28/24 19:07> Critical Care Time Critical Care Time Critical Care Time: No <Juli Macedo MD - Last Filed: 02/29/24 15:25> Discharge Plan Discharge Clinical Impression: Gangrene of right foot, Peripheral vascular disease, Cellulitis of right foot, Osteomyelitis of toe of right foot Type 2 diabetes mellitus Qualifiers: 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 terminal operations manager insulin use: with terminal operations manager use 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 complication status: with other specified complication Qualified Code(s): E11.69 - Type 2 diabetes mellitus with other specified complication <Verona Sánchez PA-C - Last Filed: 02/28/24 19:07> Patient Disposition: Still a Patient <ANNAMARIE Morales Last Filed: 02/28/24 19:07> Condition: Serious <ANNAMARIE Morales Last Filed: 02/28/24 19:07>
[2024-02-28 13:52] LABS: Erythrocyte Sedimentation Rate > 140 mm/hr (0-20)
[2024-02-28 14:00] LABS: CRP 20.4 mg/dL (<1.0)
[2024-02-28] MEDS: CEFEPIME 2 GM/NS 50 ML 2 GM/50 ML BAG IVPB (14:42)
[2024-02-28] MEDS: SODIUM CHLORIDE 0.9% IV 1,000 ML 999 ML IV CONT (14:42)
[2024-02-28 15:06] LABS: Hemoglobin A1C 8.2 % (<5.7)
[2024-02-28 15:08] LABS: Add Urine Microscopic? YES; Appearance Urine Clear (Clear); Bacteria Urine None Seen /hpf; Bilirubin Urine Negative (Negative); Blood Urine 2+ (Negative); Color Urine Yellow (Yellow); Glucose Urine UA Negative (Negative); Ketones Urine Negative (Negative); Leukocyte Esterase Ur Trace LEU/UL (Negative); Need Manual Microscopic Reviewed; Nitrate Urine Negative (Negative); Non Pathogenic Casts 0-2; Protein Urine Trace mg/dL (Negative); Specific Grav Ur 1.012 (1.001-1.035); Squamous Epithelial Cell Urine None Seen /hpf (Few); WBC Urine 0-5 /hpf (0-3); pH Urine 6.5 (5.0-9.0)
[2024-02-28] MEDS: metroNIDAZOLE 500 MG/ISO 100ML 500 MG/100 ML BAG 100 MG IVPB (15:21)
--- NOTE | 2024-02-28 16:22 | P.CONGS_ITS ---
Assessment and Plan Assessment and plan (1) Gangrene of right foot: Code(s): I96 - Gangrene, not elsewhere classified Status: Acute Assessment and Plan: Gangrenous right foot infection involving the entire right 1st toe extending down to the midfoot with surrounding cellulitis. CTA also showed peripheral chandrakant rial disease with total occlusion of the right anterior and posterior tibial arteries and right peroneal artery with distal reconstitution of peroneal artery. The extensive gangrenous foot infection in combination with his peripheral vascular disease makes it unlikely that the foot can be salvaged. We could offer him a [id number] amputation if he wishes to be admitted at this facility. We also discussed the option of transferring to another facility that has vascular surgery, where he can be evaluated by a vascular surgeon to see if there is any other options they can offer surgically to try and salvage his limb. We have discussed this also with the ED provider. Agree with starting IV antibiotics and we will be available for consultation depending on the patient's decision. (2) Cellulitis of right foot: Code(s): L03.115 - Cellulitis of right lower limb Status: Acute (3) Peripheral vascular disease: Code(s): I73.9 - Peripheral vascular disease, unspecified Status: Acute (4) Peripheral neuropathy: Code(s): G62.9 - Polyneuropathy, unspecified Status: Acute (5) Type 2 diabetes mellitus: Code(s): E11.9 - Type 2 diabetes mellitus without complications Status: Acute Plan I have discussed the patient's case and plan of care with Dr. Johns. History of Present Illness Consult details Consult date: 02/28/24 Reason for consult: other (Gangrenous right foot wound) Requesting physician: Verona Sánchez PA-C Narrative: This is a 68-year-old diabetic man who presented to the ED today from [facility] for right foot wound. He cannot recall when the wound started, but reports bandaging his wound on his own at the intermediate. He reports staff has given him supplies but has not seen the wound until today. Apparently, he showed them the wound today and they brought him into the ED for evaluation. [place] [address], hemoglobin 9.5, hematocrit 29.4, platelets [id number], INR 1.4, sodium 130, glucose 109, hemoglobin A1c 8.2, lactic acid 1.4, and CRP 20.4. CTA right lower extremity showed total occlusion of right anterior and posterior tibial arteries and right peroneal artery with distal reconstitution of peroneal artery, moderate stenosis of right popliteal artery, and osteomyelitis involving first proximal and distal phalanges and head of first metatarsal. Our service was consulted by the ED provider for evaluation of the gangrenous right foot wound. The patient is limited in providing history. He does report being diabetic and previously taking insulin. He reports a remote history having surgery on his right upper leg from an injury that required hardware years ago. The patient is now seen in the ER with Dr. Johns. Review of Systems Review of Systems: ROS unobtainable: Yes unobtainable due to mental status PMFSH Past Medical History Medical History Peripheral neuropathy Peripheral vascular disease Type 2 diabetes mellitus Surgical History Surgical History History of surgery on lower extremity Meds Home Medications and Allergies Allergies Allergy/AdvReac Type Severity Reaction Status Date / Time No Known Allergies Allergy Verified 02/28/24 14:38 Vital Signs Vital Signs - 24 hr 02/28/24 12:46 02/28/24 12:52 02/28/24 14:30 Temperature 97.8 F Pulse Rate 93 85 95 Respiratory Rate 17 18 18 Blood Pressure 165/79 H 165/79 H 153/73 H Pulse Oximetry 100 100 100 02/28/24 16:09 Temperature Pulse Rate 100 Respiratory Rate 19 Blood Pressure 168/106 H Pulse Oximetry 97 Exam Const: General: no acute distress and poor hygiene Nutritional Appearance: average body habitus Orientation/consciousness: patient oriented x3 HENMT: Head: normocephalic and atraumatic Ears: hearing grossly normal bilaterally Mouth: Yes moist mucous membranes Eyes: General: appearance normal, both eyes and all related structures Pupils: Equal, round and reactive pupils present Neck: Neck: normal visual inspection and full ROM Resp: Effort & Inspection: no respiratory distress Auscultation: clear to auscultation bilaterally Cardio: Rate: regular rate Rhythm: regular rhythm GI: Inspection: non-distended and no visible herniation GI Palp: Yes Soft to palpation, No Tenderness to palpation present (GI), No Guarding due to palpation present (GI) and No Rebound tenderness present Auscultation: normal bowel sounds Skin: General skin exam: normal color Neuro: General: moves all extremities and no focal motor deficits Speech: normal speech Extrem: Right upper extremity: normal to inspection Left upper extremity: normal to inspection Other: Gangrenous right foot wound involving the entire 1st toe extending about [address] down the 1st metatarsal on the dorsal foot and nearly all the way down to the heel on the medial aspect and plantar aspect of the foot over the 1st metatarsal. There is purulent drainage and a foul odor. There is erythema and swelling extending across the entire forefoot and down to the midfoot. PT and pedal pulses not palpable. Slightly decreased active ROM of right knee for extension. Psych: Mental Status: mental status grossly normal Attitude: cooperative Judgement: Poor judgement present (Psych) Results Labs 02/28/24 13:11 02/28/24 13:11 Labs: Abnormal lab results 02/28/24 02/28/24 Range/Units 13:11 14:44 WBC 22.2 H (4.5-10.0) K/mm3 RBC 3.44 L (4.6-6.20) M/mm3 Hgb 9.5 L (14.0-18.0) g/dL Hct 29.4 L (42.0-52.0) % RDW 14.6 H (11.5-14.5) % Plt Count 414 H (150-375) k/mm3 Immature Gran % (Auto) 1.4 H (0-0.5) % Neut % (Auto) 79.8 H (45.5-73.1) % Lymph % (Auto) 8.8 L (18.3-44.2) % [place] % (Auto) 9.0 H (2.6-8.5) % [place] # (Auto) 2.0 H (0.1-0.6) K/mm3 Abs Immat Gran (auto) 0.30 H (0.00-0.031) K/mm3 Absolute Neuts (auto) 17.7 H (1.3-6.7) K/mm3 ESR > 140 H (0-20) mm/hr PT 17.4 H (11.1-14.7) Seconds APTT 52.9 H (22.3-36.8) Seconds Sodium 130 L (137-145) mmol/L Chloride 94 L (98-107) mmol/L BUN 8 L (9-20) mg/dL Hemoglobin A1c 8.2 H (<5.7) % Calcium 8.2 L (8.4-10.2) mg/dL C-Reactive Protein 20.4 H (<1.0) mg/dL Albumin 2.9 L (3.5-5.1) g/dL Ur Blood (Man) 2+ H (Negative) Leukocyte Esterase Rfl Trace H (Negative) CHERYL/UL Urine RBC 11-20 H (0-2) /hpf Diabetes panel 02/28/24 Range/Units 13:11 Sodium 130 L (137-145) mmol/L Potassium 3.8 (3.4-5.0) mmol/L Chloride 94 L (98-107) mmol/L Carbon Dioxide 28 (22-30) mmol/L BUN 8 L (9-20) mg/dL Creatinine 0.70 (0.7-1.3) mg/dL Glucose 109 (65-110) mg/dL Hemoglobin A1c 8.2 H (<5.7) % Calcium 8.2 L (8.4-10.2) mg/dL AST 48 (17-59) U/L ALT 22 (6-50) U/L Alkaline Phosphatase 125 (38-126) U/L Total Protein 7.0 (6.3-8.2) g/dL Albumin 2.9 L (3.5-5.1) g/dL Calcium panel 02/28/24 Range/Units 13:11 Calcium 8.2 L (8.4-10.2) mg/dL Albumin 2.9 L (3.5-5.1) g/dL Pituitary panel 02/28/24 Range/Units 13:11 Sodium 130 L (137-145) mmol/L Potassium 3.8 (3.4-5.0) mmol/L Chloride 94 L (98-107) mmol/L Carbon Dioxide 28 (22-30) mmol/L BUN 8 L (9-20) mg/dL Creatinine 0.70 (0.7-1.3) mg/dL Glucose 109 (65-110) mg/dL Calcium 8.2 L (8.4-10.2) mg/dL Adrenal panel 02/28/24 Range/Units 13:11 Sodium 130 L (137-145) mmol/L Potassium 3.8 (3.4-5.0) mmol/L Chloride 94 L (98-107) mmol/L Carbon Dioxide 28 (22-30) mmol/L BUN 8 L (9-20) mg/dL Creatinine 0.70 (0.7-1.3) mg/dL Glucose 109 (65-110) mg/dL Calcium 8.2 L (8.4-10.2) mg/dL Total Bilirubin 0.6 (0.2-1.3) mg/dL AST 48 (17-59) U/L ALT 22 (6-50) U/L Alkaline Phosphatase 125 (38-126) U/L Total Protein 7.0 (6.3-8.2) g/dL Albumin 2.9 L (3.5-5.1) g/dL All other labs normal. Imaging Additional studies: ITS Impressions Lower Extremity CTA 02/28/24 14:54 IMPRESSION: 1. 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 2. Moderate stenosis of right popliteal artery. 3. Osteomyelitis involving first proximal and distal phalanges and head of first metatarsal.
[2024-02-28] MEDS: VANCOMYCIN 1,250 MG/NS 250 ML 1,250 MG/250 ML BAG 166.67 MG IVPB (16:27)
[2024-02-28 17:46] LABS: Glucose Point of Care 93 mg/dl (65-105)
--- NOTE | 2024-02-28 19:20 | PM.IMHP ---
H&P: HPI History of Present Illness Date/Time: 02/28/24 19:20 Chief Complaint: Right foot wound. Narrative: This is a 68-year-old male with chronic obstructive pulmonary disease, coronary artery disease with history of stents, peripheral vascular disease, hypertension, type 2 diabetes mellitus, and depression who presented to the emergency department via EMS from [place] for evaluation of a right foot wound. The patient provides the following history. He has had a wound on his right 1st toe for ?quite some time? but it has gotten worse over the last couple of weeks. He has been putting an unknown salve onto the wound and has been trying to care for it himself. It has become increasingly painful and discolored and he is now noticing malodorous drainage. The discoloration is extending up the foot and he finally allowed custodial staff to see the wound today. They sent him in with concerns for gangrene. Other than the pain he feels okay and denies fever, chills, sweats, nausea, and vomiting. He has no known history of multidrug resistant organisms. At the time my evaluation he is requesting his Symbicort inhaler as he feels a bit wheezy. In the ED: Vital signs on arrival include a temperature of 97.8?, blood pressure 165/79, pulse 93, respiratory rate 17, SpO2 100% on room air. Labs were significant for WBC count 22.2, hemoglobin 9.5, platelet 414, PT 17.4, INR 1.4, PTT 52.9, sodium 130, chloride 94, BUN 8, creatinine 0.70, glucose 93, lactic acid 1.4, CRP 20.4, albumin 2.9. CTA of the left lower extremity showed total occlusion of the right anterior and posterior tibial arteries and right peroneal artery with distal reconstitution, moderate stenosis of the right popliteal artery, and osteomyelitis involving the 1st proximal and distal phalanges and head of the 1st metatarsal. He was given a dose of cefepime, metronidazole, and vancomycin. Surgery was consulted and they did not feel that vascular intervention would salvage the limb and offered [id number] amputation which is supposed to be performed tomorrow. He was admitted to the floor in this setting. About an hour for so after I saw the patient he became tachycardic into the 150s. Nurse went to evaluate the patient and he told her that he was having difficulties breathing and that he needed his inhaler. SpO2 at that time was 83% on room air and he was placed on 2 L nasal cannula. Patient got up to sit at the side of the bed to help his breathing and then stated that he needed to use the commode. He was transferred to the commode and sat there for a few minutes with no results. He was assisted back to bed and his SpO2 dropped again into the low 80s. He then became diaphoretic, less responsive, and a rapid response was called. A code blue was quickly called thereafter as nursing staff was unable to palpate a pulse and he was agonal breathing. Please see tahmina blue event report per Dr. Allen for further details. He was intubated during resuscitative efforts and had return of spontaneous circulation within a short period of time. He was then moved to the intensive care unit where he became hypotensive and a central line was inserted. Review of Systems Review of Systems: 12 systems were reviewed and are negative except for as per HPI. [facility]LY [facility] Past Medical History Medical History (Updated 02/29/24 @ 00:05 by Shyla Alanis PA-C) Alcohol abuse has abstained for many years Chronic obstructive pulmonary disease Coronary artery disease Peripheral neuropathy Peripheral vascular disease Type 2 diabetes mellitus Surgical History Surgical History (Updated 02/28/24 @ 23:59 by Shyla Alanis PA-C) History of coronary artery stent placement History of open reduction and internal fixation (ORIF) procedure repair right femur fracture History of surgery on lower extremity Family History Family History Father Cancer Mother Heart attack Social History Social History (Updated 02/29/24 @ 00:00 by Shyla Alanis PA-C) Social History: Surrogate medical decision maker: The patient declines edema surrogate decision maker. He does not have a legal guardian listed or emergency contacts. [facility] reports that he has never had any visitors and they are unaware any family. Code status: Full code, signed in 2018 by the patient. Smoking status: Former smoker Alcohol intake: former Substance use: never Substance use type: does not use Do You Feel Safe in your Home?: Yes Lack of Transportation: No Lack of Food: Never True Current Housing: I Have Housing Concerned About Future Housing: No Difficulty Paying Gas/Electric Bills: No Difficulty Paying for Meds: No Currently Unemployed: No Education: Trade/Vocational Certificate Difficulty w/ Childcare or Family Care: No Additional living arrangements comments: Resident at [facility] / [facility]. Additional occupation/education comments: Disabled. Spiritual care concerns: No Meds Home Medications and Allergies Home Medications Medication Instructions Recorded Confirmed Type Flonase 2 inh EACH NARE DAILY 02/28/24 02/28/24 History acetaminophen 325 mg tablet 650 mg PO TID 02/28/24 02/28/24 History albuterol sulfate 90 mcg/actuation 2 inh inhalation Q4H PRN Shortness 02/28/24 02/28/24 History aerosol inhaler Of Breath Or Wheezing aspirin 81 mg chewable tablet 81 mg PO DAILY 02/28/24 02/28/24 History (Aspirin Childrens) budesonide-formoterol HFA 160 2 puff inhalation Q12H 02/28/24 02/28/24 History mcg-4.5 mcg/actuation aerosol inhaler (Symbicort) calcium carbonate (Calcium Antacid) 400 mg PO Q6H heartburn 02/28/24 02/28/24 History dapagliflozin propanediol 5 mg 10 mg PO DAILY 02/28/24 02/28/24 History tablet (Farxiga) docusate sodium 100 mg capsule 100 mg PO Q12H 02/28/24 02/28/24 History (Colace) glucagon 1 mg/0.2 mL subcutaneous 1 mg subcut PRN PRN Hypoglycemia 02/28/24 02/28/24 History auto-injector (Gvoke HypoPen 1-Pack) guaifenesin 400 mg tablet 400 mg PO Q6H PRN Cough 02/28/24 02/28/24 History insulin aspart U-100 100 unit/mL 7 unit subcut AC 02/28/24 02/28/24 History subcutaneous solution insulin glargine-yfgn 100 unit/mL 55 unit subcut HS 02/28/24 02/28/24 History (3 mL) subcutaneous pen lanolin alcohols-mineral 1 applic topical Q12H 02/28/24 02/28/24 History oil-w.petrolatum-ceresin topical cream (Eucerin topical cream) losartan 25 mg tablet 25 mg PO DAILY 02/28/24 02/28/24 History metformin 500 mg tablet 500 mg PO BID 02/28/24 02/28/24 History metoprolol succinate 50 mg 50 mg PO DAILY 02/28/24 02/28/24 History tablet,extended release 24 hr multivit with minerals-iron 18 1 tablet PO DAILY 02/28/24 02/28/24 History mg-folic ac 400 mcg-vit K 25 mcg tablet (Adults Multivitamin) polyethylene glycol 3350 17 gram 17 g PO DAILY PRN Constipation 02/28/24 02/28/24 History oral powder packet (Miralax) rosuvastatin 20 mg tablet 20 mg PO DAILY 02/28/24 02/28/24 History ticagrelor 60 mg tablet (Brilinta) 60 mg PO Q12H 02/28/24 02/28/24 History trazodone 50 mg tablet 25 mg PO HS 02/28/24 02/28/24 History Allergies Allergy/AdvReac Type Severity Reaction Status Date / Time No Known Allergies Allergy Verified 02/28/24 14:38 Vital Signs Vital Signs - 24 hr 02/28/24 12:46 02/28/24 12:52 02/28/24 14:30 Temperature 97.8 F Pulse Rate 93 85 95 Respiratory Rate 17 18 18 Blood Pressure 165/79 H 165/79 H 153/73 H Pulse Oximetry 100 100 100 02/28/24 16:09 Temperature Pulse Rate 100 Respiratory Rate 19 Blood Pressure 168/106 H Pulse Oximetry 97 Exam Narrative: General: Initial exam he was well-developed, nontoxic-appearing, and in no distress. Weight: 91.5 kg. BMI: 28.9. HEENT: Wearing a ball cap. PERRL, EOMI. Sclera anicteric. Moist mucous membranes. Neck: Supple. Full huynh. Respiratory: Respirations are nonlabored. He is speaking in full sentences. Lung sounds are diminished with faint expiratory wheezing. Cardiovascular: Regular rate and rhythm with S1-S2. Gastrointestinal: Abdomen is soft, nontender, and nondistended with positive bowel sounds. Skin: Warm and dry. Reported mild breakdown on the buttocks though that was not examined. Right 1st toe is gangrenous with chronic appearing ulcers scattered throughout the right 2nd toe as well. The gangrenous changes extend down the medial aspect and plantar aspect of the foot, nearly to the heel. There is malodorous drainage coming from in between the toes. The surrounding tissue on the dorsum and plantar aspect of the foot is erythematous, warm, and indurated. Unable to palpate pulses below the femoral triangle on the right. Extremities: No cyanosis, clubbing, or edema. Radial pulses palpable. Neurological: Alert. Cranial nerves 2-12 are grossly intact. No gross focal deficits to casual conversation. Psychiatric: Cooperative with appropriate mood and affect. H&P: Results Labs Labs: Short CBC 02/28/24 Range/Units 13:11 WBC 22.2 H (4.5-10.0) K/mm3 Hgb 9.5 L (14.0-18.0) g/dL Hct 29.4 L (42.0-52.0) % Plt Count 414 H (150-375) k/mm3 BMP 02/28/24 13:11 Sodium 130 L Potassium 3.8 Chloride 94 L Carbon Dioxide 28 BUN 8 L Creatinine 0.70 Glucose 109 Calcium 8.2 L Liver Function 02/28/24 Range/Units 13:11 Total Bilirubin 0.6 (0.2-1.3) mg/dL AST 48 (17-59) U/L ALT 22 (6-50) U/L Alkaline Phosphatase 125 (38-126) U/L Albumin 2.9 L (3.5-5.1) g/dL Urine 02/28/24 Range/Units 14:44 Urine Color Yellow (Yellow) Urine Appearance Clear (Clear) Urine pH 6.5 (5.0-9.0) Ur Specific [place] 1.012 (1.001-1.035) Urine Protein Trace (Negative) mg/dL Urine Glucose (UA) Negative (Negative) mg/dL Impressions Lower Extremity CTA 02/28/24 14:54 IMPRESSION: 1. 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 2. Moderate stenosis of right popliteal artery. 3. Osteomyelitis involving first proximal and distal phalanges and head of first metatarsal. Assessment and Plan Assessment and plan (1) Cardiac arrest with pulseless electrical activity: Code(s): I46.9 - Cardiac arrest, cause unspecified Status: Acute (2) Acute respiratory failure with hypoxia: Code(s): J96.01 - Acute respiratory failure with hypoxia Status: Acute (3) Gangrene of right foot: Code(s): I96 - Gangrene, not elsewhere classified Status: Acute (4) Cellulitis of right foot: Code(s): L03.115 - Cellulitis of right lower limb Status: Acute (5) Osteomyelitis of toe of right foot: Code(s): M86.9 - Osteomyelitis, unspecified Status: Acute (6) Peripheral vascular disease: Code(s): I73.9 - Peripheral vascular disease, unspecified Status: Acute (7) Type 2 diabetes mellitus: Qualifiers: 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 complication status: with other specified complication 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 fci insulin use: with fci use Qualified Code(s): E11.69 - Type 2 diabetes mellitus with other specified complication; Z79.4 - intermediate accountant (current) use of insulin Code(s): E11.9 - Type 2 diabetes mellitus without complications Status: Acute (8) Peripheral neuropathy: Code(s): G62.9 - Polyneuropathy, unspecified Status: Acute (9) Chronic obstructive pulmonary disease: Code(s): J44.9 - Chronic obstructive pulmonary disease, unspecified Status: Acute (10) Coronary artery disease: Code(s): I25.10 - Atherosclerotic heart disease of [place] coronary artery without angina pectoris Status: Acute Plan The patient presented to the emergency department for evaluation of a gangrenous right foot wound as detailed in HPI. Labs, imaging, EKG, and all reports were personally reviewed. CTA of the lower extremity showed severe vascular disease pamyt-ils-osam and surgeon did not feel that vascular intervention would be of any use to salvage the limb. Plans were made for ascfi-xpj-htsp amputation. He initially received cefepime, metronidazole, and vancomycin and antibiotics were changed to meropenem, clindamycin, and vancomycin as there was evidence of gas on the images. On the floor he became tachycardic and hypoxic and ultimately went into PEA arrest with return of spontaneous circulation after a brief period of CPR and 1 round of epinephrine. He is now in the ICU and is sedated on mechanical ventilation. Central line has been inserted and he has been started on vasopressors with a goal MAP of at least 65 and systolic blood pressure of at least 95. It is unclear what caused the arrest, possibly hypoxia due to COPD though would consider pulmonary embolism, septic emboli, versus other. Post intubation chest x-ray showed diffuse right-sided lung disease, likely pneumonia and he has been started on scheduled bronchodilators. He was given IV fluid bolus for the lactic acidosis. EKG showed some ST depressions in the anterolateral leads and troponin was mildly elevated and that will be trended. Case was discussed with the ring sorter, Dr. Edmond. CTA of the chest, abdomen, and pelvis has been ordered and is pending; Dr. Edmond will follow up on that tonight. Echocardiogram ordered and cardiology has been consulted as the patient has a history of coronary artery disease and stents. We have not been able to figure out when he last had stents placed but he is on both aspirin and ticagrelor according to his medication sheet that accompanied him. These were being held in anticipation of surgery tomorrow. Depending on his troponins and CT scan he may need to be started on a heparin drip. Hold basal insulin for now. Initiate sliding scale insulin, Accu-Cheks, and hypoglycemic protocol. Check hemoglobin A1c. Findings and treatment plan were discussed with the patient. Questions were solicited and answered to satisfaction. The patient's medical management will be taken over by the hospitalist team in a.m. Quality VTE Prophylaxis VTE prophylaxis: mechanical ordered (to unaffected limb) If No VTE Prophylaxis Answer both mechanical and pharmacologic: Reason no pharmacologic proph: medical contraindication (scheduled for surgery tomorrow) The patient has been admitted under observation status. Hospitalist [facility] Advance Care Plan I have confirmed that the patient's Advanced Care Plan is present, code status is documented, or surrogate decision maker is listed in patient medical record.: Yes Medication Reconciliation I have utilized all available resources to obtain, update and review the patients current medications (includes all prescriptions, OTC, herbals, cannabis, and nutritional supplements).: Yes Critical Care Time Critical Care Time: Yes Total Critical Care Time: 70 Attestation: Due to a high probability of clinically significant, life threatening deterioration, the patient required my highest level of preparedness to intervene emergently and I personally spent this critical care time directly and personally managing the patient. This critical care time included obtaining a history; examining the patient; pulse oximetry; ordering and review of studies; arranging urgent treatment with development of a management plan; evaluation of patient's response to treatment; frequent reassessment; and discussions with other providers. It was exclusive of separately billable procedures and treating other patients and teaching time. Please see Assessment and Plan section and the rest of the note for further information on patient assessment and treatment.
[2024-02-28] MEDS: VANCOMYCIN 1,000 MG/NS 250 ML 1,000 MG/250 ML BAG 250 MG IVPB (19:47)
--- NOTE | 2024-02-28 20:46 | PC.NURSE ---
Charge nurse noted heart rate increasing to 150's. Evaluated Pt. who stated 'I can't breath, I need my puffer.' Pulse ox placed showing SpO2 of 83% on room air. Pt. placed on O2 at 2 LPM via nasal cannula. Attempted to calm Pt. down and instruct him to breath through his nose and out his mouth. Assisted Pt. to sitting on side of bed to help with his breathing. Pt. stated that he has to poop. Pt. assisted to commode to attempt to have a bowel movement. Pt. was on the commode for a couple of minutes with no results. SpO2 remained at 83 % on 3 LPM. O2 increased to 5 LPM via nasal cannula with no improvement. Pt. assisted back to bed with head of bed elevated. Rapid Response called at this time as Pt. was very diaphoretic. Pt. became less responsive, not talking or responding to his name. Jh Greene called at this time.
--- NOTE | 2024-02-28 21:00 | PC.NURSE ---
Call placed to [facility] to try to reach family. [facility] stated that patient has no family and has had no visitors. Pt transferred to ICU.
[2024-02-28] MEDS: MIDAZOLAM 100MG/NS 100ML(*CRX) 100 MG/100 ML BAG IV CONT (21:05)
[2024-02-28] MEDS: FENTANYL 2,500MCG/NS250ML(*CRX 2,500 MCG/250 ML BAG 15 MCG IV CONT (21:05)
--- NOTE | 2024-02-28 21:06 | ED.PROCEDURE ---
Procedures Intubation Intubation Date: 02/28/24 Intubation Time: 20:50 A pre-procedural Time-Out was completed immediately before starting the procedure and confirmed: Patient Identification, Site, Procedure, Patient Position and the Availability of Requisite Equipment: No Sedative: none Laryngoscope: Xochilt (3) ET tube size: 7.5 Tube secured depth (cm): 24 Tube secured location: teeth Tube placement confirmation: visualized tube passing through cords, equal breath sounds bilaterally, no breath sounds over epigastrium and confirmation by capnometry Patient tolerated procedure: well Intubation complications: none
[2024-02-28] MEDS: MIDAZOLAM HCL (*CRX) 2 MG/2 ML VIAL 4 MG IV PUSH ×2 (21:09→21:18)
[2024-02-28] MEDS: ROCURONIUM BROMIDE 50 MG/5 ML VIAL 60 MG IV PUSH (21:16)
--- NOTE | 2024-02-28 21:20 | PC.NURSE ---
Pt Hr elevated, 153, pt less responsive and hanks color. Rapid Response team called
--- NOTE | 2024-02-28 21:26 | PDCODEBLUE ---
Code Blue Note Code Blue Note Time Arrived at Code Blue: 8:50 pm Initial Rhythm on Arrival: PEA Airway Management: Pt being bagged on arrival Chest Compressions: Initiated upon arrival Result of Code Blue: Pt transferred to ICU Cardiac Rhythm Post Code: SVT Code Blue Summary: Arrived at patient's room noted patient was unresponsive with agonal breathing intubated a pulse check was done patient with no palpable pulse chest compressions were initiated epinephrine x 1 given chest compression ongoing, ROSC achieved.
[2024-02-28 21:29] LABS: Glucose Point of Care 149 mg/dl (65-105)
--- NOTE | 2024-02-28 21:47 | ECG_ITS ---
Test Date: 2024-02-28 22:18:07 Measurements Intervals [place]in Rate: 134 P: 27 CT: 88 QRS: 33 QRSD: 77 T: 102 QT: 292 QTc: 436 Interpretive Statements SINUS TACHYCARDIA WITH SHORT CT INTERVAL MODERATE DIFFUSE ST DEPRESSIONS No previous ECG available for comparison Electronically Signed On 02-29-2024 13:37:50 CDT by James Alvarez M.D.
[2024-02-28 21:55] LABS: Alanine Aminotransferase 23 U/L (6-50); Albumin Level 2.9 g/dL (3.5-5.1); Alkaline Phosphatase 137 U/L (38-126); Anion Gap 12 mmol/L (4-12); Aspartate Amino Transferase 50 U/L (17-59); Bilirubin,Total 0.5 mg/dL (0.2-1.3); Blood Urea Nitrogen 9 mg/dL (9-20); Calcium 7.7 mg/dL (8.4-10.2); Carbon Dioxide 19 mmol/L (22-30); Chloride 101 mmol/L (98-107); Creatine Kinase 81 U/L (55-170); Estimated CRCL calculation 90 ml/min; Estimated Glomerular Filt Rate > 60; Glucose 197 mg/dL (65-110); INR 1.5; Magnesium 2.1 mg/dL (1.6-2.3); Phosphorus 5.7 mg/dL (2.5-4.5); Potassium 3.7 mmol/L (3.4-5.0); Prothrombin Time 18.3 Seconds (11.1-14.7); Sodium 132 mmol/L (137-145)
[2024-02-28 21:56] LABS: Partial Thromboplastin Time 46.9 Seconds (22.3-36.8)
[2024-02-28 22:08] LABS: NT Pro B Type Natriuretic Pept 2220 pg/mL (19.9-100); Troponin I 0.219 ng/mL (0.000-0.034)
[2024-02-28] MEDS: CLINDAMYCIN 900 MG/D5W 50 ML 900 MG/50 ML PIGGYBACK 50 MG IVPB (22:08)
[2024-02-28] MEDS: MEROPENEM 1 GM/NS 100 ML 1 GM/100 ML BAG IVPB (22:53)
[2024-02-28] MEDS: SODIUM CHLORIDE 0.9% IV 1,000 ML 100 ML IV CONT (23:05)
[2024-02-28 23:06] LABS: Alveolar/Arterial O2 Gradient 280.6 mmHg; Fractional Inspired Oxygen 90 %; HCO3 ABG 22.4 mEq/l (22.0-26.0); Oxygen Content ABG 16.2 %vol (16.0-22.0); Oxygen Saturation ABG 99.7 % (95.0-100.0); Oxyhemoglobin 98.3 % THb (90.0-100.0); PCO2 ABG 46.5 mmHg (35.0-45.0); PO2 ABG 313.4 mmHg (80.0-100.0); PO2 FiO2 Ratio Arterial Blood 3.48 %; Total Hemoglobin 11.1 g/dL (12.0-18.0)
[2024-02-28 23:07] LABS: Arterial Blood Gas Ventilator rate 20 /MIN; Device VENTILATOR; Modified Allen's Test Pass; Site Drawn RIGHT RADIAL
[2024-02-28 23:08] LABS: Arterial Blood Gas PEEP 8 cmH2O; Arterial Blood Gas Tidal Volume 450 ml; Arterial Blood Gas Vent Mode CMV
[2024-02-28] MEDS: LACTATED RINGERS 1,000 ML 999 ML IV CONT (23:17)
[2024-02-28] MEDS: NOREPINEPHRINE 8 MG/D5W 250 ML 8 MG/250 ML BAG 9.38 MG IV CONT (23:35)
[2024-02-29] VITALS (53 sets, daily range): BP systolic 78–133; BP diastolic 51–71; PULSE 69–109; RESP 21–26; TEMP 35.8–37; O2SAT 98–100; BMI 30.9
--- NOTE | 2024-02-29 00:05 | PC.NURSE ---
This patient, Bryan Dunaway, was received from [[id number] ] on 02/28/24 at 2100. Patient/family oriented to unit policies and routines
--- NOTE | 2024-02-29 00:21 | ECHO_ITS ---
Patient Info Name: Bryan Dunaway Age: 68 years : 1955 Gender: Male Ht: 70 in Wt: 201 lbs BSA: 2.14 m2 HR: 83 bpm BP: 99 / 62 mmHg Heart Rhythm: Sinus Rhythm Technical Quality: Good Exam Date: 02/29/2024 9:12 AM Exam Location: Echo Lab Patient Status: Inpatient Admit Date: 02/29/2024 Staff Ordering Physician: Shyla Alanis PA-C [employer] Repairer: James Gaytan RDCS Attending Provider: Yazmin Strange MD Referring Physician: Annabelle SHEPPARD; Exam Type: CA echo dop color flow w con Study Info Indications - PEA ARREST, ELEVATED TROPONIN , CAD Complete two-dimensional, color flow and Doppler transthoracic echocardiogram is performed. Summary 1. Technically difficult study with limited views. 2. Left ventricular chamber dimension is normal. 3. Left ventricular systolic function is mildly reduced, estimated at 45-50%. The apex appears to be hypokinetic. 4. There is mildly increased left ventricular wall thickness. 5. The left ventricular diastolic function is grade I diastolic dysfunction. 6. Right ventricular systolic function is normal. 7. Left atrial chamber dimension is moderately enlarged. 8. There is mild to moderate tricuspid valve regurgitation. 9. There is small anterior pericardial effusion. Left Ventricle Left ventricular chamber dimension is normal. Left ventricular systolic function is mildly reduced, estimated at 45-50%. The apex appears to be hypokinetic. There is mildly increased left ventricular wall thickness. The left ventricular diastolic function is grade I diastolic dysfunction. Right Ventricle Right ventricular chamber dimension is normal. Right ventricular systolic function is normal. Left Atria Left atrial chamber dimension is moderately enlarged. Right Atria Right atrial chamber dimension is normal. Atrial Septum Intact interatrial septum visualized by color flow imaging. Aortic Valve The aortic valve is not well visualized. There is no aortic valve stenosis. There is no aortic valve regurgitation. There is mild aortic valve calcification. Pulmonic Valve The pulmonic valve is not well visualized. Mitral Valve There is trace mitral valve regurgitation. The mitral valve annulus is mildly calcified. Tricuspid Valve There is mild to moderate tricuspid valve regurgitation. Pericardium/Pleural There is small anterior pericardial effusion. Inferior Vena Cava Dilated inferior vena cava with <50% collapse upon inspiration consistent with elevated right atrial pressure, 15 mmHg. Aorta The aortic root size at the sinus of Valsalva is normal. Left Ventricular Outflow Tract Name Value Normal LVOT 2D LVOT Diameter 1.97 cm LVOT Doppler LVOT Peak Gradient 2 mmHg LVOT Mean Gradient 1 mmHg LVOT VTI 14.66 cm LVOT VTI/AV VTI Ratio 0.60 LVOT Stroke Volume 44.60 ml LVOT CO 2.95 l/min LVOT CI 1.37 L/min/m2 Pulmonic Valve Name Value Normal PV Doppler PV Peak Gradient 3 mmHg Mitral Valve Name Value Normal MV Doppler MV Decel Bradley 439.81 cm/s2 MV PHT 0 s MV Area (PHT) 3.55 cm2 4.00-5.00 MV Diastolic Function MV E Peak Velocity 93.93 cm/s MV A Peak Velocity 90.77 cm/s MV E/A 1.03 MV Decel Time 0 s MV Annular TDI MV E/e' (Septal) 24.51 <=8.00 MV E/e' (Lateral) 12.93 <=8.00 MV E/e' (Average) 18.72 Tricuspid Valve Name Value Normal TV Regurgitation Doppler TR Peak Velocity 279.28 cm/s TR Peak Gradient 31 mmHg Estimated PAP/RSVP RA Pressure 15 mmHg <=5 PA Systolic Pressure 46 mmHg <36 RV Systolic Pressure 46 mmHg <36 Aortic Valve Name Value Normal AV Doppler AV Peak Velocity 107.23 cm/s AV Peak Gradient 5 mmHg AV Mean Gradient 3 mmHg AV VTI 24.27 cm AV Area (Cont Eq VTI) 1.84 cm2 >=3.00 AV Area (Cont Eq Alex) 1.66 cm2 AV Regurgitation 2D LVOT Area 3.04 cm2 Ventricles Name Value Normal LV Dimensions 2D/MM IVS Diastolic Thickness (2D) 1.16 cm 0.60-1.00 LVID Diastole (2D) 4.24 cm 4.20-5.80 LVIW Diastolic Thickness (2D) 1.10 cm 0.60-1.00 LVID Systole (2D) 2.73 cm 2.50-4.00 LVOT Diameter 1.97 cm LV Mass (2D Cubed) 166.09 g 88.00-224.00 LV Mass Index (2D Cubed) 0.01 g/cm2 0.00-0.01 Relative Wall Thickness (2D) 0.52 LV Fractional Shortening/Ejection Fraction 2D/MM LV Fractional Shortening (2D) 36 % 25-43 LV EF (2D Teicholz) 66 % 52-72 LV Diastolic Volume (4C MOD) 98.28 ml LV EF (4C MOD) 62 % LV Diastolic Volume (2C MOD) 86.76 ml LV EF (2C MOD) 61 % LV Diastolic Volume (BP MOD) 93.58 ml 62.00-150.00 LV Diastolic Volume Index (BP MOD) 0.04 l/m2 0.03-0.07 LV Systolic Volume (BP MOD) 36.52 ml 21.00-61.00 LV Systolic Volume Index (BP MOD) 0.02 l/m2 0.01-0.03 LV EF (BP MOD) 61 % 52-72 LV Diastolic Length (4C) 8.40 cm LV Systolic Length (4C) 6.56 cm LV Stroke Volume (4C MOD) 61.11 ml Atria Name Value Normal LA Dimensions LA Volume (4C A-L) 43.35 ml LA Volume (BP A-L) 34.39 ml RA Dimensions RA Area (4C) 10.64 cm2 <=18.00 Report Signatures
[2024-02-29 00:35] LABS: Reflex Lactic Acid Yes or No Add Lactic
[2024-02-29 03:37] LABS: Influenza A QL RT-PCR Negative (Negative); Influenza B QL RT-PCR Negative (Negative); MRSA (PCR) NOT DETECTED (NOT DETECTE); SARS-CoV-2 RNA PCR Negative (Negative)
[2024-02-29] MEDS: SODIUM CHLORIDE 0.9% IV 2,700 ML/1,000 ML BAG 999 ML IV CONT ×2 (04:12→05:14)
[2024-02-29] MEDS: CLINDAMYCIN 900 MG/D5W 50 ML 900 MG/50 ML PIGGYBACK 50 MG IVPB ×3 (04:14→20:40)
[2024-02-29 04:33] LABS: Hematocrit 29.5 % (42.0-52.0); Hemoglobin 9.3 g/dL (14.0-18.0); Mean Corpuscular HGB Conc 31.5 g/dl (32-36); Mean Corpuscular Hemoglobin 27.4 pg (26-34); Mean Corpuscular Volume 86.8 fl (80-100); Mean Platelet Volume 8.5 fl (7.4-10.4); Platelet Count Result 477 k/mm3 (150-375); Red Cell Distribution Width 14.8 % (11.5-14.5); White Blood Count 33.7 K/mm3 (4.5-10.0)
[2024-02-29 04:46] LABS: Lactic Acid 1.3 mmol/L (0.7-2.0)
[2024-02-29 04:47] LABS: Anion Gap 7 mmol/L (4-12); Blood Urea Nitrogen 14 mg/dL (9-20); Carbon Dioxide 23 mmol/L (22-30); Chloride 101 mmol/L (98-107); Estimated CRCL calculation 64 ml/min; Estimated Glomerular Filt Rate > 60; Glucose 202 mg/dL (65-110); Magnesium 2.1 mg/dL (1.6-2.3); Sodium 131 mmol/L (137-145)
[2024-02-29 04:53] LABS: Iron 18 ug/dL (49-181)
[2024-02-29 05:03] LABS: Percent Iron Saturation 14 % (20-50)
[2024-02-29 05:46] LABS: Alveolar/Arterial O2 Gradient 137.9 mmHg; Base Excess ABG -3.2 mEq/l (+/-2.0); Carboxyhemoglobin 1.6 % THb (0-2.0); Fractional Inspired Oxygen 70 %; HCO3 ABG 22.4 mEq/l (22.0-26.0); Methemoglobin ABG 0.3 %THb (0-1.5); Oxygen Content ABG 19.3 %vol (16.0-22.0); Oxygen Saturation ABG 99.7 % (95.0-100.0); Oxyhemoglobin 97.8 % THb (90.0-100.0); PCO2 ABG 42.1 mmHg (35.0-45.0); PO2 ABG 315.9 mmHg (80.0-100.0); PO2 FiO2 Ratio Arterial Blood 4.51 %; Reduced Hemoglobin 0.3 %THb (0-5.0); Total Hemoglobin 13.5 g/dL (12.0-18.0); pH ABG 7.344 (7.350-7.450)
[2024-02-29 05:48] LABS: Device VENTILATOR; Modified Allen's Test Pass; Site Drawn LEFT BRACHIAL
[2024-02-29 05:49] LABS: Arterial Blood Gas PEEP 8 cmH2O; Arterial Blood Gas Tidal Volume 450 ml; Arterial Blood Gas Vent Mode CMV; Arterial Blood Gas Ventilator rate 24 /MIN
[2024-02-29] MEDS: HEPARIN SODIUM 5,000 UNITS/ML VIAL 4000 UNITS IV PUSH (05:57)
[2024-02-29] MEDS: MEROPENEM 1 GM/NS 100 ML 1 GM/100 ML BAG IVPB ×3 (05:58→20:39)
[2024-02-29] MEDS: HEPARIN SOD/D5W 100 UNITS/ML 25,000 UNITS/250 ML BAG 10 UNITS IV CONT (05:58)
[2024-02-29 07:55] LABS: Folic Acid 2.1 ng/mL (2.76->20)
[2024-02-29] MEDS: IPRATROPIUM 0.5 MG/ALBUTEROL SULFATE 2.5 MG AMPUL.NEB 3 ML INHALATION ×3 (08:11→20:30)
[2024-02-29] MEDS: CENTRAL LINE FLUSH 10 ML IV PUSH ×3 (08:17→20:42)
--- NOTE | 2024-02-29 08:29 | P.CONIN_ITS ---
Assessment and Plan Assessment and plan (1) Cardiac arrest with pulseless electrical activity: Code(s): I46.9 - Cardiac arrest, cause unspecified Status: Acute Assessment and Plan: Cardiac arrest, secondary to unknown etiology. Possible aspiration pneumonia, NSTEMI, hypoxia, septic shock, infection -see code blue sheet for the details -patient currently intubated, vasopressors for blood pressure support (2) Septic shock: Code(s): A41.9 - Sepsis, unspecified organism; R65.21 - Severe sepsis with septic shock Status: Acute Assessment and Plan: Patient in shock, likely related to the gangrene, aspiration pneumonia, status post cardiac arrest 02/28/2024: Blood cultures have been obtained and pending -lactic acid has normalized -patient has been adequately fluid-resuscitated -currently on Levophed, maintain MAP > 65 mgHg for adequate end organ perfusion -start patient on stress dose steroids for pneumonia and shock (3) NSTEMI (non-ST elevated myocardial infarction): Code(s): I21.4 - Non-ST elevation (NSTEMI) myocardial infarction Status: Acute Assessment and Plan: Increasing troponins, -EKG showed sinus rhythm with T-wave changes in V1 to V5 -currently on heparin infusion for NSTEMI -appreciate cardiology evaluation recommendation -will add aspirin and high-dose a statin -will hold Brilinta -will also hold beta-brayden, losartan which is home med, since he is hypotensive on vasopressors (4) Gangrene of right foot: Code(s): I96 - Gangrene, not elsewhere classified Status: Acute Assessment and Plan: CTA showed peripheral arterial disease with total occlusion of the right anterior and posterior tibial arteries and right peroneal artery with distal reconstitution of peroneal artery. This extensive gangrene of the right foot with gas seen on CT of the foot. -pre following the patient, plan was to do a below-knee amputation on 02/29/2024 but given his cardiac arrest, NSTEMI and on pressors this has been deferred. Discussed with surgery -continue antibiotics for necrotizing gas gangrene. Patient on meropenem, clindamycin and vancomycin which was started on 02/28/2024 (5) Osteomyelitis of toe of right foot: Code(s): M86.9 - Osteomyelitis, unspecified Status: Acute Assessment and Plan: As above (6) Peripheral vascular disease: Code(s): I73.9 - Peripheral vascular disease, unspecified Status: Acute Assessment and Plan: Patient has history of peripheral vascular disease, coronary artery disease -started on aspirin, patient will require Brilinta since he had a STEMI in 2020 (7) Type 2 diabetes mellitus: Qualifiers: 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 complication status: with other specified complication 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 correction insulin use: with termite control representative use Qualified Code(s): E11.69 - Type 2 diabetes mellitus with other specified complication; Z79.4 - tank terminal gauger (current) use of insulin Code(s): E11.9 - Type 2 diabetes mellitus without complications Status: Acute Assessment and Plan: Currently on sliding scale insulin, Accu-Cheks Patient does take Lantus and metformin at home, if patient is hyperglycemic will add Lantus (8) Chronic obstructive pulmonary disease: Code(s): J44.9 - Chronic obstructive pulmonary disease, unspecified Status: Acute Assessment and Plan: Continue DuoNebs -will add Symbicort Plan DVT prophylaxis: Heparin infusion Stress ulcer prophylaxis: Protonix Nutrition: NPO Code Status: Full code Critical Care Time Spent: 51 minutes Due to a high probability of clinically significant, life threatening deterioration, the patient required my highest level of preparedness to intervene emergently and I personally spent this critical care time directly and personally managing the patient. This critical care time included obtaining a history; examining the patient; pulse oximetry; ordering and review of studies; arranging urgent treatment with development of a management plan; evaluation of patient's response to treatment; frequent reassessment; and discussions with other providers. It was exclusive of separately billable procedures and treating other patients and teaching time. Please see Assessment and Plan section and the rest of the note for further information on patient assessment and treatment This dictation may have been done utilizing a voice recognition system. Attempts have been made to correct errors. However, there may be uncorrected grammatical, spelling, and recognitions errors present. Textile Broker Consult Note Consult date: 02/29/24 Reason for consult: Status post PEA arrest, right foot gangrene with cellulitis, shock HPI: Bryan Dunaway is a 68 year old male past medical history of alcohol abuse, COPD, peripheral neuropathy, peripheral vascular disease, type 2 diabetes presented the ED on 02/28/2024 via EMS for gangrenous right foot infection with cellulitis. The right foot ganglion has had drainage and malodorous. He was also complaining of pain in his right foot. Initial labs in the ER with WBC of 22.2, hemoglobin 9.5, platelets 414, INR of 1.4, sodium 130, lactic acid 1.4, creatinine of 0.7, CRP 20.4 CTA of the left lower extremity showed total occlusion of the right anterior and posterior tibial arteries and right peroneal artery with distal reconstitution. Moderate stenosis of the right popliteal artery and osteomyelitis involving the 1st proximal and distal phalanges and head of the 1st metatarsal. He was started on cefepime, metronidazole and vancomycin, surgery was consulted and offered [id number] amputation. He was admitted to the medical floor, after arriving to the medical floor a got tachycardic in the 150s and was having difficulty breathing. His O2 sats were 83% on room air was placed supplemental oxygen. He guarded to use the commode, dropped his O2 sats again the low 80s, was diaphoretic, was less responsive and a rapid response was called which was converted to a code blue. Patient was in PEA, was intubated by ER physician, central line was inserted and was started on Levophed. Patient was given 2 L IV fluid bolus and transferred to the ICU for further management Patient seen examined this morning in the ICU, remains intubated on CMV mode of ventilation, peep of 8, 60% FiO2. Sedated with fentanyl and Versed infusion. Patient does not open his eyes or follow simple commands. Urine output has been adequate, patient is afebrile. Remains on Levophed at 12 mcg/min Review of Systems Review of Systems: ROS unobtainable: Yes unobtainable due to endotracheal tube, unobtainable due to medical condition and unobtainable due to mental status PMFSH Past Medical History Medical History (Updated 02/29/24 @ 12:52 by Yasmine Edmond MD) Alcohol abuse has abstained for many years Chronic obstructive pulmonary disease COPD (chronic obstructive pulmonary disease) Coronary artery disease COVID-19 Depression Hip fracture, right History of alcoholism HTN (hypertension) Insomnia Peripheral neuropathy Peripheral vascular disease Type 2 diabetes mellitus Surgical History Surgical History (Updated 02/29/24 @ 12:35 by Radha Garcia) History of appendectomy History of coronary artery stent placement History of hip surgery Reconstruction of the right femur History of open reduction and internal fixation (ORIF) procedure repair right femur fracture History of surgery on lower extremity History of tonsillectomy Family History Family History Father Cancer Mother Heart attack Social History Social History (Updated 02/29/24 @ 00:00 by Shyla Alanis PA-C) Social History: Surrogate medical decision maker: The patient declines edema surrogate decision maker. He does not have a legal guardian listed or emergency contacts. [facility] reports that he has never had any visitors and they are unaware any family. Code status: Full code, signed in 2018 by the patient. Smoking status: Former smoker Alcohol intake: former Substance use: never Substance use type: does not use Do You Feel Safe in your Home?: Yes Lack of Transportation: No Lack of Food: Never True Current Housing: I Have Housing Concerned About Future Housing: No Difficulty Paying Gas/Electric Bills: No Difficulty Paying for Meds: No Currently Unemployed: No Education: Trade/Vocational Certificate Difficulty w/ Childcare or Family Care: No Additional living arrangements comments: Resident at [facility]. Additional occupation/education comments: Disabled. Spiritual care concerns: No Meds Home Medications and Allergies Home Medications Medication Instructions Recorded Confirmed Type albuterol sulfate 90 mcg/actuation 2 puff inhalation QID #8.5 grams 05/11/19 07/17/20 Rx aerosol inhaler budesonide-formoterol HFA 160 2 puff inhalation Q12H 07/17/20 07/17/20 History mcg-4.5 mcg/actuation aerosol inhaler (Symbicort) calcium carbonate (Tums) 200 mg PO QID PRN Indigestion 07/17/20 07/17/20 History cholecalciferol (vitamin D3) 25 25 mcg PO DAILY 07/17/20 07/17/20 History mcg (1,000 unit) tablet citalopram 20 mg tablet (Celexa) 20 mg PO DAILY 07/17/20 07/17/20 History fluticasone propionate 50 2 spray intranasal DAILY 07/17/20 07/17/20 History mcg/actuation nasal spray,suspension metoprolol succinate 50 mg 50 mg PO DAILY 07/17/20 07/17/20 History tablet,extended release 24 hr zolpidem 10 mg tablet 10 mg PO HS 07/17/20 07/17/20 History aspirin 81 mg chewable tablet 81 mg PO DAILY@0800 #30 tabs 07/19/20 Rx (Children's Aspirin) canagliflozin 100 mg tablet 100 mg PO DAILY@0800 #30 tabs 07/19/20 Rx (Invokana) losartan 25 mg tablet 25 mg PO DAILY #30 tabs 07/19/20 Rx metformin 500 mg tablet 500 mg PO BIDWM #60 tabs 07/19/20 Rx (Glucophage) miconazole nitrate 2 % topical 1 applic topical Q12HR #30 grams 07/19/20 Rx cream rosuvastatin 10 mg tablet (Crestor) 20 mg PO DAILY #30 tabs 07/19/20 Rx ticagrelor 90 mg tablet (Brilinta) 90 mg PO Q12HR #60 tabs 07/19/20 Rx Flonase 2 inh EACH NARE DAILY 02/28/24 02/28/24 History acetaminophen 325 mg tablet 650 mg PO TID 02/28/24 02/28/24 History albuterol sulfate 90 mcg/actuation 2 inh inhalation Q4H PRN Shortness 02/28/24 02/28/24 History aerosol inhaler Of Breath Or Wheezing aspirin 81 mg chewable tablet 81 mg PO DAILY 02/28/24 02/28/24 History (Aspirin Childrens) budesonide-formoterol HFA 160 2 puff inhalation Q12H 02/28/24 02/28/24 History mcg-4.5 mcg/actuation aerosol inhaler (Symbicort) calcium carbonate (Calcium Antacid) 400 mg PO Q6H heartburn 02/28/24 02/28/24 History dapagliflozin propanediol 5 mg 10 mg PO DAILY 02/28/24 02/28/24 History tablet (Farxiga) docusate sodium 100 mg capsule 100 mg PO Q12H 02/28/24 02/28/24 History (Colace) glucagon 1 mg/0.2 mL subcutaneous 1 mg subcut PRN PRN Hypoglycemia 02/28/24 02/28/24 History auto-injector (Gvoke HypoPen 1-Pack) guaifenesin 400 mg tablet 400 mg PO Q6H PRN Cough 02/28/24 02/28/24 History insulin aspart U-100 100 unit/mL 7 unit subcut AC 02/28/24 02/28/24 History subcutaneous solution insulin glargine-yfgn 100 unit/mL 55 unit subcut HS 02/28/24 02/28/24 History (3 mL) subcutaneous pen lanolin alcohols-mineral 1 applic topical Q12H 02/28/24 02/28/24 History oil-w.petrolatum-ceresin topical cream (Eucerin topical cream) losartan 25 mg tablet 25 mg PO DAILY 02/28/24 02/28/24 History metformin 500 mg tablet 500 mg PO BID 02/28/24 02/28/24 History metoprolol succinate 50 mg 50 mg PO DAILY 02/28/24 02/28/24 History tablet,extended release 24 hr multivit with minerals-iron 18 1 tablet PO DAILY 02/28/24 02/28/24 History mg-folic ac 400 mcg-vit K 25 mcg tablet (Adults Multivitamin) polyethylene glycol 3350 17 gram 17 g PO DAILY PRN Constipation 02/28/24 02/28/24 History oral powder packet (Miralax) rosuvastatin 20 mg tablet 20 mg PO DAILY 02/28/24 02/28/24 History ticagrelor 60 mg tablet (Brilinta) 60 mg PO Q12H 02/28/24 02/28/24 History trazodone 50 mg tablet 25 mg PO HS 02/28/24 02/28/24 History Allergies Allergy/AdvReac Type Severity Reaction Status Date / Time No Known Allergies Allergy Verified 02/29/24 12:35 Vital Signs Vital Signs - 24 hr 02/28/24 12:46 02/28/24 12:52 02/28/24 14:30 Temperature 97.8 F Pulse Rate 93 85 95 Respiratory Rate 17 18 18 Blood Pressure 165/79 H 165/79 H 153/73 H Pulse Oximetry 100 100 100 Oxygen Delivery Fraction of Inspired Oxygen 02/28/24 16:09 02/28/24 19:55 02/28/24 21:15 Temperature 98.6 F Pulse Rate 100 112 H 150 H Respiratory Rate 19 20 30 H Blood Pressure 168/106 H 160/77 H 153/83 H Pulse Oximetry 97 93 91 Oxygen Delivery Fraction of Inspired Oxygen 02/28/24 20:00 02/28/24 21:06 02/28/24 21:05 Temperature Pulse Rate 152 H 152 H Respiratory Rate 36 H 20 Blood Pressure 153/80 H Pulse Oximetry 78 L Oxygen Delivery Room Air Fraction of Inspired Oxygen 02/28/24 21:05 02/28/24 21:00 02/28/24 22:05 Temperature Pulse Rate 151 H 140 H 137 H Respiratory Rate 20 20 Blood Pressure Pulse Oximetry 99 Oxygen Delivery Mechanical Ventilation Fraction of Inspired Oxygen 100 02/28/24 22:06 02/28/24 21:45 02/28/24 22:31 Temperature Pulse Rate 137 H 137 H 128 H Respiratory Rate 18 18 24 H Blood Pressure Pulse Oximetry 91 Oxygen Delivery Mechanical Ventilation Fraction of Inspired Oxygen 100 02/28/24 22:59 02/28/24 23:10 02/28/24 23:35 Temperature 97.4 F L Pulse Rate 118 H 115 H 100 Respiratory Rate 22 H 20 Blood Pressure 79/56 L 71/50 L Pulse Oximetry 100 Oxygen Delivery Fraction of Inspired Oxygen 02/28/24 23:40 02/28/24 23:43 02/28/24 23:35 Temperature Pulse Rate 101 H 132 H 110 H Respiratory Rate 20 Blood Pressure 71/50 L Pulse Oximetry 98 Oxygen Delivery Mechanical Ventilation Fraction of Inspired Oxygen 80 02/28/24 23:52 02/28/24 23:52 02/29/24 00:00 Temperature 96.6 F L 96.4 F L Pulse Rate 96 97 106 H Respiratory Rate 17 25 H Blood Pressure 74/54 L 74/54 L 98/67 L Pulse Oximetry 100 100 Oxygen Delivery Fraction of Inspired Oxygen 02/29/24 00:00 02/29/24 00:02 02/29/24 00:02 Temperature Pulse Rate 107 H 108 H Respiratory Rate 25 H 25 H Blood Pressure Pulse Oximetry Oxygen Delivery Fraction of Inspired Oxygen 80 02/29/24 00:00 02/29/24 00:00 02/29/24 00:50 Temperature Pulse Rate 108 H 109 H 105 H Respiratory Rate 25 H 24 H Blood Pressure 78/59 L Pulse Oximetry 100 100 Oxygen Delivery Mechanical Ventilation Fraction of Inspired Oxygen 80 02/29/24 00:50 02/29/24 01:15 02/29/24 02:00 Temperature Pulse Rate 105 H 102 H 91 Respiratory Rate Blood Pressure 78/59 L 89/63 L 86/62 L Pulse Oximetry Oxygen Delivery Fraction of Inspired Oxygen 02/29/24 02:15 02/29/24 04:00 02/29/24 02:00 Temperature Pulse Rate 94 88 91 Respiratory Rate 24 H Blood Pressure 92/67 L 102/65 Pulse Oximetry Oxygen Delivery Fraction of Inspired Oxygen 02/29/24 04:00 02/29/24 02:00 02/29/24 04:00 Temperature Pulse Rate 88 95 88 Respiratory Rate 24 H 24 H 24 H Blood Pressure Pulse Oximetry Oxygen Delivery Fraction of Inspired Oxygen 02/29/24 04:00 02/29/24 04:00 02/29/24 04:00 Temperature 97.8 F Pulse Rate 88 88 Respiratory Rate 24 H 24 H Blood Pressure 102/65 Pulse Oximetry 100 100 Oxygen Delivery Mechanical Ventilation Fraction of Inspired Oxygen 80 70 02/29/24 04:00 02/29/24 01:15 02/29/24 01:30 Temperature 96.5 F L 96.6 F L Pulse Rate 88 94 95 Respiratory Rate 24 H 24 H Blood Pressure 89/63 L 90/64 L Pulse Oximetry 100 100 Oxygen Delivery Fraction of Inspired Oxygen 02/29/24 02:00 02/29/24 02:15 02/29/24 02:30 Temperature 96.8 F L 96.9 F L 97 F L Pulse Rate 91 94 92 Respiratory Rate 24 H 24 H 24 H Blood Pressure 86/62 L 92/67 L 95/66 L Pulse Oximetry 100 100 100 Oxygen Delivery Fraction of Inspired Oxygen 02/29/24 05:38 02/29/24 05:56 02/29/24 05:57 Temperature Pulse Rate 84 81 81 Respiratory Rate 24 H 24 H Blood Pressure Pulse Oximetry 100 Oxygen Delivery Mechanical Ventilation Fraction of Inspired Oxygen 80 02/29/24 06:08 02/29/24 06:00 02/29/24 06:15 Temperature 97.5 F L 97.5 F L Pulse Rate 82 81 83 Respiratory Rate 24 H 24 H Blood Pressure 108/68 108/68 99/62 L Pulse Oximetry 100 100 Oxygen Delivery Fraction of Inspired Oxygen 02/29/24 08:20 Temperature Pulse Rate 75 Respiratory Rate Blood Pressure Pulse Oximetry 99 Oxygen Delivery Mechanical Ventilation Fraction of Inspired Oxygen 50 Exam Narrative: General: Patient intubated and sedated no acute distress HEENT:, pupils are equal and reactive from a sclera is clear Neck:? supple Respiratory:? Coarse breath sounds bilaterally, decreased at bases, adequate air entry Cardiac:? S1-S2 normal, regular rate and rhythm Abdomen:? Soft, nontender, nondistended, hypoactive bowel sounds Extremities:? Gangrenous right 1st toe down to the 1st metatarsal, dorsum of the foot and all the way to approximately the heel on the medial aspect and plantar aspect of the foot over the 1st metatarsal. Purulent drainage and foul order. There is also erythema and swelling of the right foot. Posterior tibial and pedal pulses are not palpable Neuro:? Patient is intubated, sedated, opens eyes but does not follow simple commands Skin:? Patient has maceration of his perianal area, and states to pressure ulcer on his buttocks. Psych:? Able to assess at this time Results Labs 02/29/24 04:26 02/29/24 04:26 Labs: Short CBC 02/28/24 02/29/24 Range/Units 13:11 04:26 WBC 22.2 H 33.7 H (4.5-10.0) K/mm3 Hgb 9.5 L 9.3 L (14.0-18.0) g/dL Hct 29.4 L 29.5 L (42.0-52.0) % Plt Count 414 H 477 H (150-375) k/mm3 BMP 02/28/24 02/28/24 02/29/24 13:11 21:32 04:26 Sodium 130 L 132 L Cancelled Potassium 3.8 3.7 Chloride 94 L 101 Carbon Dioxide 28 19 L BUN 8 L 9 Creatinine 0.70 0.70 Glucose 109 197 H Calcium 8.2 L 7.7 L 02/29/24 02/29/24 02/29/24 04:26 04:26 04:26 Sodium 131 L Potassium Cancelled 5.0 Chloride Cancelled 101 Carbon Dioxide Cancelled BUN Creatinine Glucose Calcium 02/29/24 02/29/24 02/29/24 04:26 04:26 04:26 Sodium Potassium Chloride Carbon Dioxide 23 BUN Cancelled 14 D Creatinine Cancelled 1.00 Glucose Cancelled Calcium 02/29/24 02/29/24 04:26 04:26 Sodium Potassium Chloride Carbon Dioxide BUN Creatinine Glucose 202 H Calcium Cancelled 7.0 L Cardiac Enzymes 02/28/24 02/29/24 02/29/24 Range/Units 21:32 04:26 04:26 Total Creatine Kinase 81 (55-170) U/L Troponin I 0.219 H* 3.170 H* D Cancelled (0.000-0.034) ng/mL Liver Function 02/28/24 02/28/24 Range/Units 13:11 21:32 Total Bilirubin 0.6 0.5 (0.2-1.3) mg/dL AST 48 50 (17-59) U/L ALT 22 23 (6-50) U/L Alkaline Phosphatase 125 137 H (38-126) U/L Albumin 2.9 L 2.9 L (3.5-5.1) g/dL Urine 02/28/24 Range/Units 14:44 Urine Color Yellow (Yellow) Urine Appearance Clear (Clear) Urine pH 6.5 (5.0-9.0) Ur Specific [place] 1.012 (1.001-1.035) Urine Protein Trace (Negative) mg/dL Urine Glucose (UA) Negative (Negative) mg/dL Hospitalist MIPS Advance Care Plan I have confirmed that the patient's Advanced Care Plan is present, code status is documented, or surrogate decision maker is listed in patient medical record.: Yes Medication Reconciliation I have utilized all available resources to obtain, update and review the patients current medications (includes all prescriptions, OTC, herbals, cannabis, and nutritional supplements).: Yes
[2024-02-29] MEDS: PANTOPRAZOLE SODIUM IV 40 MG VIAL IV PUSH (09:20)
[2024-02-29] MEDS: SODIUM CHLORIDE 0.9% IV 1,000 ML 100 ML IV CONT ×2 (09:20→19:28)
[2024-02-29] MEDS: MINERAL OIL/WHITE PETROLATUM OINTMENT 1 APPLIC EACH EYE ×2 (09:20→20:40)
[2024-02-29 09:24] LABS: Glucose Point of Care 183 mg/dl (65-105)
--- NOTE | 2024-02-29 10:40 | ECG_ITS ---
Test Date: 2024-02-29 11:27:00 Measurements Intervals [place] Rate: 70 P: 57 NE: 149 QRS: 28 QRSD: 77 T: 82 QT: 387 QTc: 420 Interpretive Statements SINUS RHYTHM ST DEVIATION AND MODERATE T-WAVE ABNORMALITY, CONSIDER ANTEROLATERAL ISCHEMIA [-0.1+ mV T WAVE IN V3-V6] Compared to ECG 02/28/2024 22:18:07 ST DEPRESSIONS HAVE IMPROVED Electronically Signed On 02-29-2024 13:45:31 CDT by James Alvarez M.D.
[2024-02-29] MEDS: NOREPINEPHRINE 8 MG/D5W 250 ML 8 MG/250 ML BAG 22.5 MG IV CONT (11:06)
--- NOTE | 2024-02-29 11:28 | PCDIET ---
Tube feedings recommendations: Vital AF 1.2 at 20 ml/hr advance to 60 ml/hr. Tube feedings at 60 ml/hr meeting 77% kcal needs and 73% protein needs. Will monitor at this rate and recommend advancing after 72 hours. Diet supplement: Minh BID with flush providing 80 kcal/7 gm glutamine/ 7 gm arginine/ 2.5 gm protein. Following.
[2024-02-29 11:50] LABS: Glucose Point of Care 162 mg/dl (65-105)
[2024-02-29 12:07] LABS: Partial Thromboplastin Time 72.7 Seconds (22.3-36.8)
--- NOTE | 2024-02-29 12:57 | PM.CNCAR ---
Assessment and Plan Assessment and plan (1) NSTEMI (non-ST elevated myocardial infarction): Code(s): I21.4 - Non-ST elevation (NSTEMI) myocardial infarction Status: Acute Assessment and Plan: Continue Heparin drip. Recommend ASA 81mg once daily, high intensity statin. Echocardiogram ordered and pending. At this time, patient does not require emergent/urgent cardiac catheterization. Will continue with medical management. (2) Cardiac arrest with pulseless electrical activity: Code(s): I46.9 - Cardiac arrest, cause unspecified Status: Acute Assessment and Plan: Unclear etiology for his PEA cardiac arrest. CT scans shows extensive aspiration, wonder if that was the etiology. Continue supportive care as per the ICU team. (3) Septic shock: Code(s): A41.9 - Sepsis, unspecified organism; R65.21 - Severe sepsis with septic shock Status: Acute Assessment and Plan: On Levophed. Management as per ICU team. (4) Acute respiratory failure with hypoxia: Code(s): J96.01 - Acute respiratory failure with hypoxia Status: Acute Assessment and Plan: On mechanical ventilation. Management as per ICU team. (5) Osteomyelitis of toe of right foot: Code(s): M86.9 - Osteomyelitis, unspecified Status: Acute Assessment and Plan: Management as per surgery. (6) Gangrene of right foot: Code(s): I96 - Gangrene, not elsewhere classified Status: Acute Assessment and Plan: Plans were for right below the knee amputation, but that is on hold now. 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 (8) CAD (coronary artery disease): Code(s): I25.10 - Atherosclerotic heart disease of robinson coronary artery without angina pectoris Status: Acute Assessment and Plan: History of RCA STEMI in July 2020 s/p PCI by Dr. Eason. Cardiac catheterization at that time showed: Conclusion: 1. Acute inferior wall myocardial infarction with high-grade subtotal occlusion of the distal right coronary artery. This lesion was successfully treated as detailed above with the drug-eluting stent the vessel is smaller in size despite being dominant to the posterior wall. 2. Mild mid right coronary disease which is not flow-limiting 3. Significant stenosis in ramus intermedius branch of the circumflex which is moderate in caliber as detailed above appears to be about 70-80% stenosis. 4. High-grade stenosis in a smaller but long OM 2 branch which is a more complicated lesion and is proximity to the left main. 5. Left ventricular systolic dysfunction with infero posterior hypokinesia overall ejection fraction 45% Recommend ASA, statin. Unclear if patient has followed up with a retail pos specialist since his STEMI. I do not see any cardiology notes in our [facility] Epic system. (9) HTN (hypertension): Code(s): I10 - Essential (primary) hypertension Status: Acute Assessment and Plan: On Levophed. Plan Recommendations and plan discussed with Interchange Agent. History of Present Illness History of Present Illness Consult date/time: 02/29/24 12:57 Requesting physician: Yasmine Edmond MD Consult reason: Other (PEA cardiac arrest, NSTEMI) Reason For Visit: Necrotic R Foot Wound/Osteintekutus/DM Narrative: This is a 68 year old male with history of inferior STEMI in July 2020 s/p PCI of the RCA, peripheral vascular disease, hypertension, type 2 diabetes mellitus, COPD, depression who presented from his half-way for evaluation of right foot wound. Patient is currently intubated and sedated, therefore, cannot obtain any history from the patient. History obtained from the medical team and medical chart. Patient found with a gangrenous right foot and was scheduled to undergo a right below the knee amputation today. He was admitted to the floor. Overnight, he became tachycardic, had respiratory failure. He went into PEA cardiac arrest. JENNIFER GALAVIZ called and patient wad administered chest compressions, Epinephrine x 1, ROSC was achieved. He was transferred to the ICU. He remains intubated, on Levophed for presumed septic shock. Workup thus far shows: WBC 33.7 Hgb 9.3 Lactate 02/27 was 5, now at 1.3 Troponin trend of 0.219, 3.170, 6.580. EKG 02/27 after his cardiac arrest showed sinus tachycardia, moderate diffuse ST depressions. Repeat EKG this morning shows improvement in ST depressions, T-wave abnormality in the anterolateral leads. Lower extremity CTA: 1. 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 2. Moderate stenosis of right popliteal artery. 3. Osteomyelitis involving first proximal and distal phalanges and head of first metatarsal. Head CT negative for acute findings. Chest / Abdomen / Pelvis CTA: Extensive right upper lobe consolidation and more mild right middle lobe consolidation, consistent with pneumonia. Consider aspiration pneumonia. Moderate to large right pleural effusion with complete atelectasis of the right lower lobe. Moderate left pleural effusion with minimal left basilar atelectasis. Small pericardial effusion. No definite acute abnormality in the abdomen or pelvis. Chronic compression fractures Review of Systems Review of Systems: ROS unobtainable: Yes unobtainable due to endotracheal tube and unobtainable due to medical condition PMFSH Past Medical History Medical History Alcohol abuse has abstained for many years Chronic obstructive pulmonary disease COPD (chronic obstructive pulmonary disease) Coronary artery disease COVID-19 Depression Hip fracture, right History of alcoholism HTN (hypertension) Insomnia Peripheral neuropathy Peripheral vascular disease Type 2 diabetes mellitus Surgical History Surgical History History of appendectomy History of coronary artery stent placement History of hip surgery Reconstruction of the right femur History of open reduction and internal fixation (ORIF) procedure repair right femur fracture History of surgery on lower extremity History of tonsillectomy Family History Family History Father Cancer Mother Heart attack Father Cancer Mother Acute myocardial infarction Grandparent 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 Social History Social History Social History: Surrogate medical decision maker: The patient declines edema surrogate decision maker. He does not have a legal guardian listed or emergency contacts. long term reports that he has never had any visitors and they are unaware any family. Code status: Full code, signed in 2018 by the patient. Smoking status: Former smoker Alcohol intake: former Substance use: never Substance use type: does not use Do You Feel Safe in your Home?: Yes Lack of Transportation: No Lack of Food: Never True Current Housing: I Have Housing Concerned About Future Housing: No Difficulty Paying Gas/Electric Bills: No Difficulty Paying for Meds: No Currently Unemployed: No Education: Trade/Vocational Certificate Difficulty w/ Childcare or Family Care: No Living arrangements: half-way Additional living arrangements comments: Resident at [facility]. Additional occupation/education comments: Disabled. Spiritual care concerns: No Meds Home Medications and Allergies Home Medications Medication Instructions Recorded Confirmed Type albuterol sulfate 90 mcg/actuation 2 puff inhalation QID #8.5 grams 05/11/19 07/17/20 Rx aerosol inhaler budesonide-formoterol HFA 160 2 puff inhalation Q12H 07/17/20 07/17/20 History mcg-4.5 mcg/actuation aerosol inhaler (Symbicort) calcium carbonate (Tums) 200 mg PO QID PRN Indigestion 07/17/20 07/17/20 History cholecalciferol (vitamin D3) 25 25 mcg PO DAILY 07/17/20 07/17/20 History mcg (1,000 unit) tablet citalopram 20 mg tablet (Celexa) 20 mg PO DAILY 07/17/20 07/17/20 History fluticasone propionate 50 2 spray intranasal DAILY 07/17/20 07/17/20 History mcg/actuation nasal spray,suspension metoprolol succinate 50 mg 50 mg PO DAILY 07/17/20 07/17/20 History tablet,extended release 24 hr zolpidem 10 mg tablet 10 mg PO HS 07/17/20 07/17/20 History aspirin 81 mg chewable tablet 81 mg PO DAILY@0800 #30 tabs 07/19/20 Rx (Children's Aspirin) canagliflozin 100 mg tablet 100 mg PO DAILY@0800 #30 tabs 07/19/20 Rx (Invokana) losartan 25 mg tablet 25 mg PO DAILY #30 tabs 07/19/20 Rx metformin 500 mg tablet 500 mg PO BIDWM #60 tabs 07/19/20 Rx (Glucophage) miconazole nitrate 2 % topical 1 applic topical Q12HR #30 grams 07/19/20 Rx cream rosuvastatin 10 mg tablet (Crestor) 20 mg PO DAILY #30 tabs 07/19/20 Rx ticagrelor 90 mg tablet (Brilinta) 90 mg PO Q12HR #60 tabs 07/19/20 Rx Flonase 2 inh EACH NARE DAILY 02/28/24 02/28/24 History acetaminophen 325 mg tablet 650 mg PO TID 02/28/24 02/28/24 History albuterol sulfate 90 mcg/actuation 2 inh inhalation Q4H PRN Shortness 02/28/24 02/28/24 History aerosol inhaler Of Breath Or Wheezing aspirin 81 mg chewable tablet 81 mg PO DAILY 02/28/24 02/28/24 History (Aspirin Childrens) budesonide-formoterol HFA 160 2 puff inhalation Q12H 02/28/24 02/28/24 History mcg-4.5 mcg/actuation aerosol inhaler (Symbicort) calcium carbonate (Calcium Antacid) 400 mg PO Q6H heartburn 02/28/24 02/28/24 History dapagliflozin propanediol 5 mg 10 mg PO DAILY 02/28/24 02/28/24 History tablet (Farxiga) docusate sodium 100 mg capsule 100 mg PO Q12H 02/28/24 02/28/24 History (Colace) glucagon 1 mg/0.2 mL subcutaneous 1 mg subcut PRN PRN Hypoglycemia 02/28/24 02/28/24 History auto-injector (Gvoke HypoPen 1-Pack) guaifenesin 400 mg tablet 400 mg PO Q6H PRN Cough 02/28/24 02/28/24 History insulin aspart U-100 100 unit/mL 7 unit subcut AC 02/28/24 02/28/24 History subcutaneous solution insulin glargine-yfgn 100 unit/mL 55 unit subcut HS 02/28/24 02/28/24 History (3 mL) subcutaneous pen lanolin alcohols-mineral 1 applic topical Q12H 02/28/24 02/28/24 History oil-w.petrolatum-ceresin topical cream (Eucerin topical cream) losartan 25 mg tablet 25 mg PO DAILY 02/28/24 02/28/24 History metformin 500 mg tablet 500 mg PO BID 02/28/24 02/28/24 History metoprolol succinate 50 mg 50 mg PO DAILY 02/28/24 02/28/24 History tablet,extended release 24 hr multivit with minerals-iron 18 1 tablet PO DAILY 02/28/24 02/28/24 History mg-folic ac 400 mcg-vit K 25 mcg tablet (Adults Multivitamin) polyethylene glycol 3350 17 gram 17 g PO DAILY PRN Constipation 02/28/24 02/28/24 History oral powder packet (Miralax) rosuvastatin 20 mg tablet 20 mg PO DAILY 02/28/24 02/28/24 History ticagrelor 60 mg tablet (Brilinta) 60 mg PO Q12H 02/28/24 02/28/24 History trazodone 50 mg tablet 25 mg PO HS 02/28/24 02/28/24 History Allergies Allergy/AdvReac Type Severity Reaction Status Date / Time No Known Allergies Allergy Verified 02/29/24 12:35 Vital Signs Vital Signs - 24 hr 02/28/24 14:30 02/28/24 16:09 02/28/24 19:55 Temperature 37.0 C Pulse Rate 95 100 112 H Respiratory Rate 18 19 20 Blood Pressure 153/73 H 168/106 H 160/77 H Pulse Oximetry 100 97 93 Oxygen Delivery Fraction of Inspired Oxygen 02/28/24 21:15 02/28/24 20:00 02/28/24 21:06 Temperature Pulse Rate 150 H 152 H Respiratory Rate 30 H 36 H Blood Pressure 153/83 H 153/80 H Pulse Oximetry 91 78 L Oxygen Delivery Room Air Fraction of Inspired Oxygen 02/28/24 21:05 02/28/24 21:05 02/28/24 21:00 Temperature Pulse Rate 152 H 151 H 140 H Respiratory Rate 20 20 Blood Pressure Pulse Oximetry 99 Oxygen Delivery Mechanical Ventilation Fraction of Inspired Oxygen 100 02/28/24 22:05 02/28/24 22:06 02/28/24 21:45 Temperature Pulse Rate 137 H 137 H 137 H Respiratory Rate 20 18 18 Blood Pressure Pulse Oximetry 91 Oxygen Delivery Mechanical Ventilation Fraction of Inspired Oxygen 100 02/28/24 22:31 02/28/24 22:59 02/28/24 23:10 Temperature 36.3 C L Pulse Rate 128 H 118 H 115 H Respiratory Rate 24 H 22 H 20 Blood Pressure 79/56 L Pulse Oximetry 100 Oxygen Delivery Fraction of Inspired Oxygen 02/28/24 23:35 02/28/24 23:40 02/28/24 23:43 Temperature Pulse Rate 100 101 H 132 H Respiratory Rate Blood Pressure 71/50 L 71/50 L Pulse Oximetry 98 Oxygen Delivery Mechanical Ventilation Fraction of Inspired Oxygen 80 10/17/24 23:35 02/28/24 23:52 02/28/24 23:52 Temperature 35.9 C L Pulse Rate 110 H 96 97 Respiratory Rate 20 17 Blood Pressure 74/54 L 74/54 L Pulse Oximetry 100 Oxygen Delivery Fraction of Inspired Oxygen 02/29/24 00:00 02/29/24 00:00 02/29/24 00:02 Temperature 35.8 C L Pulse Rate 106 H 107 H Respiratory Rate 25 H 25 H Blood Pressure 98/67 L Pulse Oximetry 100 Oxygen Delivery Fraction of Inspired Oxygen 80 02/29/24 00:02 02/29/24 00:00 02/29/24 00:00 Temperature Pulse Rate 108 H 108 H 109 H Respiratory Rate 25 H 25 H Blood Pressure Pulse Oximetry 100 Oxygen Delivery Mechanical Ventilation Fraction of Inspired Oxygen 80 02/29/24 00:50 02/29/24 00:50 02/29/24 01:15 Temperature Pulse Rate 105 H 105 H 102 H Respiratory Rate 24 H Blood Pressure 78/59 L 78/59 L 89/63 L Pulse Oximetry 100 Oxygen Delivery Fraction of Inspired Oxygen 02/29/24 02:00 02/29/24 02:15 02/29/24 04:00 Temperature Pulse Rate 91 94 88 Respiratory Rate Blood Pressure 86/62 L 92/67 L 102/65 Pulse Oximetry Oxygen Delivery Fraction of Inspired Oxygen 02/29/24 02:00 02/29/24 04:00 02/29/24 02:00 Temperature Pulse Rate 91 88 95 Respiratory Rate 24 H 24 H 24 H Blood Pressure Pulse Oximetry Oxygen Delivery Fraction of Inspired Oxygen 02/29/24 04:00 02/29/24 04:00 02/29/24 04:00 Temperature 36.6 C Pulse Rate 88 88 Respiratory Rate 24 H 24 H Blood Pressure 102/65 Pulse Oximetry 100 Oxygen Delivery Fraction of Inspired Oxygen 80 02/29/24 04:00 02/29/24 04:00 02/29/24 01:15 Temperature 35.8 C L Pulse Rate 88 88 94 Respiratory Rate 24 H 24 H Blood Pressure 89/63 L Pulse Oximetry 100 100 Oxygen Delivery Mechanical Ventilation Fraction of Inspired Oxygen 70 02/29/24 01:30 02/29/24 02:00 02/29/24 02:15 Temperature 35.9 C L 36.0 C L 36.1 C L Pulse Rate 95 91 94 Respiratory Rate 24 H 24 H 24 H Blood Pressure 90/64 L 86/62 L 92/67 L Pulse Oximetry 100 100 100 Oxygen Delivery Fraction of Inspired Oxygen 02/29/24 02:30 02/29/24 05:38 02/29/24 05:56 Temperature 36.1 C L Pulse Rate 92 84 81 Respiratory Rate 24 H 24 H Blood Pressure 95/66 L Pulse Oximetry 100 100 Oxygen Delivery Mechanical Ventilation Fraction of Inspired Oxygen 80 02/29/24 05:57 02/29/24 06:08 02/29/24 06:00 Temperature 36.4 C L Pulse Rate 81 82 81 Respiratory Rate 24 H 24 H Blood Pressure 108/68 108/68 Pulse Oximetry 100 Oxygen Delivery Fraction of Inspired Oxygen 02/29/24 06:15 02/29/24 08:20 02/29/24 08:00 Temperature 36.4 C L Pulse Rate 83 75 Respiratory Rate 24 H Blood Pressure 99/62 L Pulse Oximetry 100 99 Oxygen Delivery Mechanical Ventilation Fraction of Inspired Oxygen 50 50 02/29/24 08:00 02/29/24 08:00 02/29/24 08:00 Temperature 36.5 C Pulse Rate 79 79 79 Respiratory Rate 24 H 24 H Blood Pressure 113/68 Pulse Oximetry 99 99 Oxygen Delivery Mechanical Ventilation Fraction of Inspired Oxygen 50 02/29/24 10:00 02/29/24 11:05 02/29/24 11:06 Temperature 36.4 C Pulse Rate 74 76 76 Respiratory Rate 21 H Blood Pressure 109/64 111/58 L 111/58 L Pulse Oximetry 98 Oxygen Delivery Fraction of Inspired Oxygen 02/29/24 10:45 02/29/24 12:00 02/29/24 12:00 Temperature Pulse Rate 76 76 Respiratory Rate 24 H Blood Pressure Pulse Oximetry 100 99 Oxygen Delivery Mechanical Ventilation Mechanical Ventilation Fraction of Inspired Oxygen 40 40 50 02/29/24 12:00 02/29/24 12:00 Temperature 36.4 C Pulse Rate 73 73 Respiratory Rate 24 H Blood Pressure 110/62 Pulse Oximetry 100 Oxygen Delivery Fraction of Inspired Oxygen Exam Const: Other: Critically ill male, intubated, sedated HENMT: Other: OETT in place Resp: Other: On mechanical ventilation Cardio: Rate: regular rate Rhythm: regular rhythm Heart sounds: no murmurs Neuro: Other: Sedated Results Labs and Meds 02/29/24 04:26 02/29/24 04:26 Lab results: Cardiac Enzymes 02/28/24 02/28/24 02/29/24 Range/Units 13:11 21:32 04:26 AST 48 50 (17-59) U/L Troponin I 0.219 H* 3.170 H* D (0.000-0.034) ng/mL 02/29/24 02/29/24 Range/Units 04:26 08:02 AST (17-59) U/L Troponin I Cancelled 6.580 H* D (0.000-0.034) ng/mL Coagulation 02/28/24 02/28/24 02/29/24 Range/Units 13:11 21:32 11:46 PT 17.4 H 18.3 H (11.1-14.7) Seconds APTT 52.9 H 46.9 H 72.7 H (22.3-36.8) Seconds CBC 02/28/24 02/29/24 Range/Units 13:11 04:26 WBC 22.2 H 33.7 H (4.5-10.0) K/mm3 RBC 3.44 L 3.40 L (4.6-6.20) M/mm3 Hgb 9.5 L 9.3 L (14.0-18.0) g/dL Hct 29.4 L 29.5 L (42.0-52.0) % Plt Count 414 H 477 H (150-375) k/mm3 Lymph # (Auto) 1.94 (0.9-3.2) K/mm3 [place] # (Auto) 2.0 H (0.1-0.6) K/mm3 Eos # (Auto) 0.2 (0-0.3) K/mm3 Baso # (Auto) 0.1 (0.0-0.1) K/mm3 Comprehensive Metabolic Panel 02/28/24 02/28/24 02/29/24 Range/Units 13:11 21:32 04:26 Sodium 130 L 132 L Cancelled (137-145) mmol/L Potassium 3.8 3.7 (3.4-5.0) mmol/L Chloride 94 L 101 (98-107) mmol/L Carbon Dioxide 28 19 L (22-30) mmol/L BUN 8 L 9 (9-20) mg/dL Creatinine 0.70 0.70 (0.7-1.3) mg/dL Glucose 109 197 H (65-110) mg/dL Calcium 8.2 L 7.7 L (8.4-10.2) mg/dL AST 48 50 (17-59) U/L ALT 22 23 (6-50) U/L Alkaline Phosphatase 125 137 H (38-126) U/L Total Protein 7.0 7.0 (6.3-8.2) g/dL Albumin 2.9 L 2.9 L (3.5-5.1) g/dL 02/29/24 02/29/24 02/29/24 Range/Units 04:26 04:26 04:26 Sodium 131 L (137-145) mmol/L Potassium Cancelled 5.0 (3.4-5.0) mmol/L Chloride Cancelled 101 (98-107) mmol/L Carbon Dioxide Cancelled (22-30) mmol/L BUN (9-20) mg/dL Creatinine (0.7-1.3) mg/dL Glucose (65-110) mg/dL Calcium (8.4-10.2) mg/dL AST (17-59) U/L ALT (6-50) U/L Alkaline Phosphatase (38-126) U/L Total Protein (6.3-8.2) g/dL Albumin (3.5-5.1) g/dL 02/29/24 02/29/24 02/29/24 Range/Units 04:26 04:26 04:26 Sodium (137-145) mmol/L Potassium (3.4-5.0) mmol/L Chloride (98-107) mmol/L Carbon Dioxide 23 (22-30) mmol/L BUN Cancelled 14 D (9-20) mg/dL Creatinine Cancelled 1.00 (0.7-1.3) mg/dL Glucose Cancelled (65-110) mg/dL Calcium (8.4-10.2) mg/dL AST (17-59) U/L ALT (6-50) U/L Alkaline Phosphatase (38-126) U/L Total Protein (6.3-8.2) g/dL Albumin (3.5-5.1) g/dL 02/29/24 02/29/24 Range/Units 04:26 04:26 Sodium (137-145) mmol/L Potassium (3.4-5.0) mmol/L Chloride (98-107) mmol/L Carbon Dioxide (22-30) mmol/L BUN (9-20) mg/dL Creatinine (0.7-1.3) mg/dL Glucose 202 H (65-110) mg/dL Calcium Cancelled 7.0 L (8.4-10.2) mg/dL AST (17-59) U/L ALT (6-50) U/L Alkaline Phosphatase (38-126) U/L Total Protein (6.3-8.2) g/dL Albumin (3.5-5.1) g/dL Intake and Output 02/28/24 02/29/24 02/29/24 23:59 07:59 15:59 Intake Total 1094.8 2278.9 1173.5 Output Total 700 Balance 1094.8 1578.9 1173.5 Intake: IV 544.8 2278.9 1173.5 Fentanyl 2,500Mcg/La573si(*Crx 34.8 73.4 2,500 mcg In 250 ml @ 100 MCG/ HR 10 mls/hr IV CONT .Q25H JASON Rx#:[id number] Heparin Sod/D5w 100 Units/ml 25 62.2 ,000 units In 250 ml @ 1,000 UNITS/HR 10 mls/hr IV CONT . Q24H JASON Rx#:[id number] Midazolam 100Mg/Ns 100Ml(*Crx) 7.3 19.5 100 mg In 100 ml @ 2 MG/HR 2 mls/hr IV CONT .Q50H JASON Rx#: [id number] Norepinephrine 8 mg/D5w 250 ml 2.7 136.0 111.3 8 mg In 250 ml @ 7 MCG/MIN 13. 125 mls/hr IV CONT .Q19H3M JASON Rx#:[id number] Sodium Chloride 0.9% IV 1,000 2000 1000 ml @ 100 mls/hr IV CONT .Q10H JASON Rx#:[id number] Clindamycin 900 mg/D5w 50 ml 50 50 900 mg In 50 ml @ 50 mls/hr IVPB Q8H JASON Rx#:[id number] Meropenem 1 gm/Ns 100 ml 1 gm 100 In 100 ml @ 200 mls/hr IVPB Q8H JASON Rx#:[id number] Vancomycin 1,250 mg/Ns 250 ml 1 250 ,250 mg In 250 ml @ 166.667 mls /hr IVPB ONCE ONE Rx#:[id number] metroNIDAZOLE 500 MG/ISO 100ML 100 500 mg In 100 ml @ 100 mls/hr IVPB ONCE STA Rx#:[id number] Oral 550 0 Output: Catheter Urine 650 Urethral Catheter 650 Gastric Drainage 50 [place] Sump Oral 50 Patient Weight 02/29/24 23:59 Weight 98 kg
[2024-02-29] MEDS: HYDROCORTISONE SODIUM SUCCINATE 100 MG/2 ML VIAL IV PUSH ×2 (13:21→20:40)
--- NOTE | 2024-02-29 13:21 | PM.PNGS ---
Progress Note: A&P Assessment and Plan (1) Gangrene of right foot: Code(s): I96 - Gangrene, not elsewhere classified Status: Acute Assessment and Plan: Plans were to proceed with right below-knee amputation today. I discussed the patient's condition with Dr. Edmond. While amputation will definitely be needed at some point, it does not appear the cause of his acute deterioration last night was due to sepsis or his gangrenous foot. He may have aspiration pneumonia. Will cancel surgery but will be needing amputation at some point. Will follow along. (2) Osteomyelitis of toe of right foot: Code(s): M86.9 - Osteomyelitis, unspecified Status: Chronic (3) Peripheral vascular disease: Code(s): I73.9 - Peripheral vascular disease, unspecified Status: Chronic (4) Acute respiratory failure with hypoxia: Code(s): J96.01 - Acute respiratory failure with hypoxia Status: Acute Assessment and Plan: Possible aspiration pneumonia but etiology not really clear at this point (5) Cardiac arrest with pulseless electrical activity: Code(s): I46.9 - Cardiac arrest, cause unspecified Status: Acute (6) NSTEMI (non-ST elevated myocardial infarction): Code(s): I21.4 - Non-ST elevation (NSTEMI) myocardial infarction Status: Acute Subjective Subjective Date/Time Seen: 02/29/24 13:21 Patient reports: other (Patient intubated on mechanical ventilator) Interval history: Events of last night noted. Patient with pulseless electrical activity and code blue. Revived and intubated, transferred to the intensive care unit. Currently on vasopressin of agents intubated on mechanical ventilator. Chest x-ray suggest aspiration pneumonia. Cardiac enzymes are mildly elevated. Review of Systems Review of Systems: ROS unobtainable: Yes unobtainable due to endotracheal tube Exam Const: General: patient obtunded Extrem: Right lower extremity: foot (Bandaged but still with foul odor and drainage) Objective Data Vital Signs Vital Signs: Vital Signs - 24 hr 02/28/24 14:30 02/28/24 16:09 02/28/24 19:55 Temperature 37.0 C Pulse Rate 95 100 112 H Respiratory Rate 18 19 20 Blood Pressure 153/73 H 168/106 H 160/77 H Pulse Oximetry 100 97 93 Oxygen Delivery Fraction of Inspired Oxygen 02/28/24 21:15 02/28/24 20:00 02/28/24 21:06 Temperature Pulse Rate 150 H 152 H Respiratory Rate 30 H 36 H Blood Pressure 153/83 H 153/80 H Pulse Oximetry 91 78 L Oxygen Delivery Room Air Fraction of Inspired Oxygen 02/28/24 21:05 02/28/24 21:05 02/28/24 21:00 Temperature Pulse Rate 152 H 151 H 140 H Respiratory Rate 20 20 Blood Pressure Pulse Oximetry 99 Oxygen Delivery Mechanical Ventilation Fraction of Inspired Oxygen 100 02/28/24 22:05 02/28/24 22:06 02/28/24 21:45 Temperature Pulse Rate 137 H 137 H 137 H Respiratory Rate 20 18 18 Blood Pressure Pulse Oximetry 91 Oxygen Delivery Mechanical Ventilation Fraction of Inspired Oxygen 100 02/28/24 22:31 02/28/24 22:59 02/28/24 23:10 Temperature 36.3 C L Pulse Rate 128 H 118 H 115 H Respiratory Rate 24 H 22 H 20 Blood Pressure 79/56 L Pulse Oximetry 100 Oxygen Delivery Fraction of Inspired Oxygen 02/28/24 23:35 02/28/24 23:40 02/28/24 23:43 Temperature Pulse Rate 100 101 H 132 H Respiratory Rate Blood Pressure 71/50 L 71/50 L Pulse Oximetry 98 Oxygen Delivery Mechanical Ventilation Fraction of Inspired Oxygen 80 02/28/24 23:35 02/28/24 23:52 02/28/24 23:52 Temperature 35.9 C L Pulse Rate 110 H 96 97 Respiratory Rate 20 17 Blood Pressure 74/54 L 74/54 L Pulse Oximetry 100 Oxygen Delivery Fraction of Inspired Oxygen 02/29/24 00:00 02/29/24 00:00 02/29/24 00:02 Temperature 35.8 C L Pulse Rate 106 H 107 H Respiratory Rate 25 H 25 H Blood Pressure 98/67 L Pulse Oximetry 100 Oxygen Delivery Fraction of Inspired Oxygen 80 02/29/24 00:02 02/29/24 00:00 02/29/24 00:00 Temperature Pulse Rate 108 H 108 H 109 H Respiratory Rate 25 H 25 H Blood Pressure Pulse Oximetry 100 Oxygen Delivery Mechanical Ventilation Fraction of Inspired Oxygen 80 02/29/24 00:50 02/29/24 00:50 02/29/24 01:15 Temperature Pulse Rate 105 H 105 H 102 H Respiratory Rate 24 H Blood Pressure 78/59 L 78/59 L 89/63 L Pulse Oximetry 100 Oxygen Delivery Fraction of Inspired Oxygen 02/29/24 02:00 02/29/24 02:15 02/29/24 04:00 Temperature Pulse Rate 91 94 88 Respiratory Rate Blood Pressure 86/62 L 92/67 L 102/65 Pulse Oximetry Oxygen Delivery Fraction of Inspired Oxygen 02/29/24 02:00 02/29/24 04:00 02/29/24 02:00 Temperature Pulse Rate 91 88 95 Respiratory Rate 24 H 24 H 24 H Blood Pressure Pulse Oximetry Oxygen Delivery Fraction of Inspired Oxygen 02/29/24 04:00 02/29/24 04:00 02/29/24 04:00 Temperature 36.6 C Pulse Rate 88 88 Respiratory Rate 24 H 24 H Blood Pressure 102/65 Pulse Oximetry 100 Oxygen Delivery Fraction of Inspired Oxygen 80 02/29/24 04:00 02/29/24 04:00 02/29/24 01:15 Temperature 35.8 C L Pulse Rate 88 88 94 Respiratory Rate 24 H 24 H Blood Pressure 89/63 L Pulse Oximetry 100 100 Oxygen Delivery Mechanical Ventilation Fraction of Inspired Oxygen 70 02/29/24 01:30 02/29/24 02:00 02/29/24 02:15 Temperature 35.9 C L 36.0 C L 36.1 C L Pulse Rate 95 91 94 Respiratory Rate 24 H 24 H 24 H Blood Pressure 90/64 L 86/62 L 92/67 L Pulse Oximetry 100 100 100 Oxygen Delivery Fraction of Inspired Oxygen 02/29/24 02:30 02/29/24 05:38 02/29/24 05:56 Temperature 36.1 C L Pulse Rate 92 84 81 Respiratory Rate 24 H 24 H Blood Pressure 95/66 L Pulse Oximetry 100 100 Oxygen Delivery Mechanical Ventilation Fraction of Inspired Oxygen 80 02/29/24 05:57 02/29/24 06:08 02/29/24 06:00 Temperature 36.4 C L Pulse Rate 81 82 81 Respiratory Rate 24 H 24 H Blood Pressure 108/68 108/68 Pulse Oximetry 100 Oxygen Delivery Fraction of Inspired Oxygen 02/29/24 06:15 02/29/24 08:20 02/29/24 08:00 Temperature 36.4 C L Pulse Rate 83 75 Respiratory Rate 24 H Blood Pressure 99/62 L Pulse Oximetry 100 99 Oxygen Delivery Mechanical Ventilation Fraction of Inspired Oxygen 50 50 02/29/24 08:00 02/29/24 08:00 02/29/24 08:00 Temperature 36.5 C Pulse Rate 79 79 79 Respiratory Rate 24 H 24 H Blood Pressure 113/68 Pulse Oximetry 99 99 Oxygen Delivery Mechanical Ventilation Fraction of Inspired Oxygen 50 02/29/24 10:00 02/29/24 11:05 02/29/24 11:06 Temperature 36.4 C Pulse Rate 74 76 76 Respiratory Rate 21 H Blood Pressure 109/64 111/58 L 111/58 L Pulse Oximetry 98 Oxygen Delivery Fraction of Inspired Oxygen 02/29/24 10:45 02/29/24 12:00 02/29/24 12:00 Temperature Pulse Rate 76 76 Respiratory Rate 24 H Blood Pressure Pulse Oximetry 100 99 Oxygen Delivery Mechanical Ventilation Mechanical Ventilation Fraction of Inspired Oxygen 40 40 50 02/29/24 12:00 02/29/24 12:00 Temperature 36.4 C Pulse Rate 73 73 Respiratory Rate 24 H Blood Pressure 110/62 Pulse Oximetry 100 Oxygen Delivery Fraction of Inspired Oxygen Intake/Output Intake/Output: Intake & Output 02/26/24 02/27/24 02/28/24 02/29/24 23:59 23:59 23:59 23:59 Intake Total 2144.8 3452.4 Output Total 700 Balance 2144.8 2752.4 Meds/Results Medications: Active Medications Generic Name Dose Route Start Last Admin Trade Name Freq PRN Reason Stop Dose Admin Acetaminophen 500 mg 02/28/24 19:15 Acetaminophen 500 Mg Tablet PO Q6H PRN Pain Rated 1-3 Albuterol/Ipratropium 3 ml 02/29/24 02:00 02/29/24 08:16 Ipratropium 0.5 Mg/Albuterol Sulfate 2.5 Mg Ampul.Neb 3 Ml INHALATION Not Given Q6HRT [facility] Aspirin 81 mg 03/01/24 08:00 Aspirin 81 Mg Chewable Tablet PO DAILY@0800 [facility] Atorvastatin Calcium 80 mg 03/01/24 09:00 Atorvastatin 40 Mg Tablet PO DAILY [facility] Dextrose 12.5 gm 02/28/24 19:23 Dextrose 50% 25 Gm/50 Ml Syringe IV PUSH PRN PRN Hypoglycemia Protocol Glucagon 1 mg 02/28/24 19:23 Glucagon For Inj 1 Mg Vial IM PRN PRN Hypoglycemia Protocol Glucose 15 gm 02/28/24 19:23 Glucose Oral Gel 15 Gm Of Glucse In 37.5 Gm Tube PO PRN PRN Hypoglycemia Protocol Heparin Sodium (Porcine) 4,000 units 02/29/24 05:31 Heparin Sodium 5,000 Units/Ml Vial IV PUSH PRN PRN aPTT less than 55 seconds Heparin Sodium (Porcine) 3,000 units 02/29/24 05:31 Heparin Sodium 5,000 Units/Ml Vial IV PUSH PRN PRN aPTT 55 - 70 seconds Hydrocortisone Sodium Succinate 100 mg 02/29/24 14:00 Hydrocortisone Sodium Succinate 100 Mg/2 Ml Vial IV PUSH Q8HR JASON Dextrose 1,000 mls @ 100 mls/hr 02/28/24 19:23 Dextrose 5% 1,000 Ml IVPB PRN PRN Hypoglycemia Protocol Fentanyl Citrate 2,500 mcg in 250 mls @ 10 mls/hr 02/28/24 21:20 02/29/24 05:56 Fentanyl 2,500 Mcg/Ns 250 Ml IV CONT 100 mcg/hr .Q25H JASON 10 mls/hr Titration Protocol 100 MCG/HR Midazolam HCl 100 mg in 100 mls @ 2 mls/hr 02/28/24 21:20 02/29/24 05:57 Versed 100 Mg/Ns 100 Ml IV CONT 2 mg/hr .Q50H JASON 2 mls/hr Titration Protocol 2 MG/HR Meropenem 1 gm in 100 mls @ 200 mls/hr 02/28/24 22:00 02/29/24 05:58 IVPB 200 mls/hr Q8H JASON Administration Clindamycin Phosphate 900 mg in 50 mls @ 50 mls/hr 02/28/24 21:00 02/29/24 05:15 Cleocin 900 Mg/D5w 50 Ml IVPB Infused Q8H JASON Infusion Sodium Chloride 1,000 mls @ 100 mls/hr 02/28/24 22:55 02/29/24 09:20 Normal Saline Iv IV CONT 100 mls/hr .Q10H JASON Administration Norepinephrine Bitartrate 8 mg in 250 mls @ 22.5 mls/hr 02/28/24 23:05 02/29/24 11:06 Levophed 8 Mg/D5w 250 Ml IV CONT 12 mcg/min .Q11H7M JASON 22.5 mls/hr Administration Protocol 12 MCG/MIN Heparin Sodium/Dextrose 25,000 units in 250 mls @ 10 mls/hr 02/29/24 05:35 02/29/24 12:11 Heparin Sodium/D5w 100 Units/Ml IV CONT 1,000 units/hr .Q24H JASON 10 mls/hr Titration Protocol 1,000 UNITS/HR Vancomycin HCl 1,500 mg in 500 mls @ 250 mls/hr 02/29/24 14:00 Vancomycin 1,500 Mg/Ns 500 Ml IVPB Q18H JASON Insulin Aspart 3 - 6 units 02/29/24 08:00 02/29/24 09:19 Insulin Aspart (*Bkc) 100 Units/Ml SUB-Q Not Given Q6H JASON Protocol Multi-Ingred Cream/Lotion/Oil/Oint 1 applic 02/29/24 09:00 02/29/24 09:20 Mineral Oil/White Petrolatum Ointment EACH EYE 1 applic Q12HR JASON Administration Naloxone HCl 0.1 mg 02/28/24 19:15 Naloxone Hcl 0.4 Mg/Ml Vial IV PUSH Q2M PRN Opiate Reversal Pantoprazole Sodium 40 mg 02/29/24 09:00 02/29/24 09:20 Pantoprazole Sodium Iv 40 Mg Vial IV PUSH 40 mg QAM JASON Administration Perflutren Lipid Microsphere 0 ml 02/29/24 00:21 Perflutren Lipid Microspheres 1.5 Ml Vial Diluted To 10 Ml Total Volume IV PUSH 03/03/24 00:21 ONCE PRN adequate visualization Protocol Fluticasone/Salmeterol 2 puff 02/29/24 20:00 Fluticasone/Salmeterol 115-21 Mcg Inhaler 1 Puff INHALATION Q12HRT JASON Sodium Chloride 10 ml 02/29/24 06:00 02/29/24 13:13 Central Line Flush IV PUSH 10 ml Q8HR JASON Administration Sodium Chloride 20 ml 02/28/24 23:37 Central Line Flush IV PUSH PRN PRN after blood draws Radiology Results: ITS Impressions Lower Extremity CTA 02/28/24 14:54 IMPRESSION: 1. 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 2. Moderate stenosis of right popliteal artery. 3. Osteomyelitis involving first proximal and distal phalanges and head of first metatarsal. Chest X-Ray 02/28/24 21:30 IMPRESSION: 1. Diffuse right lung disease, likely pneumonia. Abdomen X-Ray 02/28/24 21:31 IMPRESSION: 1. Nasogastric tube tip beyond the inferior margin of the radiograph, but at least to the distal stomach. Head CT 02/29/24 05:55 Impression: No intracranial hemorrhage, mass, or acute infarct. Stable chronic encephalomalacia in the high left parietal lobe. Atrophy and chronic white matter changes, as above. Chest/Abdomen/Pelvis CTA 02/29/24 06:02 Impression: Extensive right upper lobe consolidation and more mild right middle lobe consolidation, consistent with pneumonia. Consider aspiration pneumonia. Moderate to large right pleural effusion with complete atelectasis of the right lower lobe. Moderate left pleural effusion with minimal left basilar atelectasis. Small pericardial effusion. No definite acute abnormality in the abdomen or pelvis. Chronic compression fractures, as above. Labs Labs: Laboratory Results - last 24 hr 02/28/24 02/28/24 02/28/24 13:11 14:44 17:42 WBC 22.2 H RBC 3.44 L Hgb 9.5 L Hct 29.4 L MCV 85.5 MCH 27.6 MCHC 32.3 RDW 14.6 H Plt Count 414 H MPV 8.7 Immature Gran % (Auto) 1.4 H Neut % (Auto) 79.8 H Lymph % (Auto) 8.8 L Waller % (Auto) 9.0 H Eos % (Auto) 0.7 Baso % (Auto) 0.3 Lymph # (Auto) 1.94 Waller # (Auto) 2.0 H Eos # (Auto) 0.2 Baso # (Auto) 0.1 Abs Immat Gran (auto) 0.30 H Absolute Neuts (auto) 17.7 H Absolute Nucleated RBC 0.000 Nucleated RBC % 0.0 ESR > 140 H PT 17.4 H INR 1.4 APTT 52.9 H Puncture Site ABG pH ABG pCO2 ABG pO2 ABG PO2/FiO2 Ratio ABG HCO3 ABG O2 Saturation ABG O2 Content ABG Base Excess A-a Gradient Oxyhemoglobin Carboxyhemoglobin Methemoglobin Reduced Hemoglobin Total Hemoglobin O2 Delivery Device O2 Liters/Min Minute Volume Vent Rate Vent Mode FiO2 Tidal Volume PEEP Peak Inspir Pressure Pressure Support Sodium 130 L Potassium 3.8 Chloride 94 L Carbon Dioxide 28 Anion Gap 8 BUN 8 L Creatinine 0.70 Estim Creat Clear Calc 90 Estimated GFR > 60 Glucose 109 POC Capillary Glucose 93 Hemoglobin A1c 8.2 H Lactic Acid 1.4 Calcium 8.2 L Phosphorus Magnesium Iron TIBC % Saturation Ferritin Total Bilirubin 0.6 AST 48 ALT 22 Alkaline Phosphatase 125 Total Creatine Kinase Troponin I C-Reactive Protein 20.4 H NT-Pro-B Natriuret Pep Total Protein 7.0 Albumin 2.9 L Vitamin B12 Folate TSH (Reflex) Urine Color Yellow Urine Appearance Clear Urine pH 6.5 Ur Specific Heber 1.012 Urine Protein Trace Urine Glucose (UA) Negative Urine Ketones Negative Ur Blood (Man) 2+ H Urine Nitrate Negative Urine Bilirubin Negative Urine Urobilinogen 1.0 Add Ur Microanalysis Reviewed Leukocyte Esterase Rfl Trace H Urine RBC 11-20 H Urine WBC 0-5 Ur Squamous Epith Cells None seen Urine Bacteria None seen Urine Casts 0-2 Nasal MRSA (PCR) Influenza A (RT-PCR) Influenza B (RT-PCR) SARS-CoV-2 RNA (RT-PCR) Blood Type O Positive Antibody Screen Negative 02/28/24 02/28/24 02/28/24 20:51 21:31 21:32 WBC RBC Hgb Hct MCV MCH MCHC RDW Plt Count MPV Immature Gran % (Auto) Neut % (Auto) Lymph % (Auto) Waller % (Auto) Eos % (Auto) Baso % (Auto) Lymph # (Auto) Waller # (Auto) Eos # (Auto) Baso # (Auto) Abs Immat Gran (auto) Absolute Neuts (auto) Absolute Nucleated RBC Nucleated RBC % ESR PT 18.3 H INR 1.5 APTT 46.9 H Puncture Site ABG pH ABG pCO2 ABG pO2 ABG PO2/FiO2 Ratio ABG HCO3 ABG O2 Saturation ABG O2 Content ABG Base Excess A-a Gradient Oxyhemoglobin Carboxyhemoglobin Methemoglobin Reduced Hemoglobin Total Hemoglobin O2 Delivery Device O2 Liters/Min Minute Volume Vent Rate Vent Mode FiO2 Tidal Volume PEEP Peak Inspir Pressure Pressure Support Sodium 132 L Potassium 3.7 Chloride 101 Carbon Dioxide 19 L Anion Gap 12 BUN 9 Creatinine 0.70 Estim Creat Clear Calc 90 Estimated GFR > 60 Glucose 197 H POC Capillary Glucose 149 H Hemoglobin A1c Lactic Acid 5.0 H* Calcium 7.7 L Phosphorus 5.7 H Magnesium 2.1 Iron TIBC % Saturation Ferritin Total Bilirubin 0.5 AST 50 ALT 23 Alkaline Phosphatase 137 H Total Creatine Kinase 81 Troponin I 0.219 H* C-Reactive Protein NT-Pro-B Natriuret Pep 2220 H Total Protein 7.0 Albumin 2.9 L Vitamin B12 Folate TSH (Reflex) Urine Color Urine Appearance Urine pH Ur Specific Heber Urine Protein Urine Glucose (UA) Urine Ketones Ur Blood (Man) Urine Nitrate Urine Bilirubin Urine Urobilinogen Add Ur Microanalysis Leukocyte Esterase Rfl Urine RBC Urine WBC Ur Squamous Epith Cells Urine Bacteria Urine Casts Nasal MRSA (PCR) Influenza A (RT-PCR) Influenza B (RT-PCR) SARS-CoV-2 RNA (RT-PCR) Blood Type Antibody Screen 02/28/24 02/29/24 02/29/24 22:57 00:29 04:26 WBC 33.7 H RBC 3.40 L Hgb 9.3 L Hct 29.5 L MCV 86.8 MCH 27.4 MCHC 31.5 L RDW 14.8 H Plt Count 477 H MPV 8.5 Immature Gran % (Auto) Neut % (Auto) Lymph % (Auto) Waller % (Auto) Eos % (Auto) Baso % (Auto) Lymph # (Auto) Waller # (Auto) Eos # (Auto) Baso # (Auto) Abs Immat Gran (auto) Absolute Neuts (auto) Absolute Nucleated RBC Nucleated RBC % ESR PT INR APTT Puncture Site Right radial ABG pH 7.300 L ABG pCO2 46.5 H ABG pO2 313.4 H ABG PO2/FiO2 Ratio 3.48 ABG HCO3 22.4 ABG O2 Saturation 99.7 ABG O2 Content 16.2 ABG Base Excess -4.0 A-a Gradient 280.6 Oxyhemoglobin 98.3 Carboxyhemoglobin Methemoglobin Reduced Hemoglobin Total Hemoglobin 11.1 L O2 Delivery Device Ventilator O2 Liters/Min Not Reportable Minute Volume Not Reportable Vent Rate 20 Vent Mode Cmv FiO2 90 Tidal Volume 450 PEEP 8 Peak Inspir Pressure Not Reportable Pressure Support Not Reportable Sodium Cancelled Potassium Chloride Carbon Dioxide Anion Gap BUN Creatinine Estim Creat Clear Calc Estimated GFR Glucose POC Capillary Glucose Hemoglobin A1c Lactic Acid Calcium Phosphorus Magnesium Iron TIBC % Saturation Ferritin Total Bilirubin AST ALT Alkaline Phosphatase Total Creatine Kinase Troponin I C-Reactive Protein NT-Pro-B Natriuret Pep Total Protein Albumin Vitamin B12 Folate TSH (Reflex) Urine Color Urine Appearance Urine pH Ur Specific Heber Urine Protein Urine Glucose (UA) Urine Ketones Ur Blood (Man) Urine Nitrate Urine Bilirubin Urine Urobilinogen Add Ur Microanalysis Leukocyte Esterase Rfl Urine RBC Urine WBC Ur Squamous Epith Cells Urine Bacteria Urine Casts Nasal MRSA (PCR) Not detected Influenza A (RT-PCR) Negative Influenza B (RT-PCR) Negative SARS-CoV-2 RNA (RT-PCR) Negative Blood Type Antibody Screen 02/29/24 02/29/24 02/29/24 04:26 04:26 04:26 WBC RBC Hgb Hct MCV MCH MCHC RDW Plt Count MPV Immature Gran % (Auto) Neut % (Auto) Lymph % (Auto) Waller % (Auto) Eos % (Auto) Baso % (Auto) Lymph # (Auto) Waller # (Auto) Eos # (Auto) Baso # (Auto) Abs Immat Gran (auto) Absolute Neuts (auto) Absolute Nucleated RBC Nucleated RBC % ESR PT INR APTT Puncture Site ABG pH ABG pCO2 ABG pO2 ABG PO2/FiO2 Ratio ABG HCO3 ABG O2 Saturation ABG O2 Content ABG Base Excess A-a Gradient Oxyhemoglobin Carboxyhemoglobin Methemoglobin Reduced Hemoglobin Total Hemoglobin O2 Delivery Device O2 Liters/Min Minute Volume Vent Rate Vent Mode FiO2 Tidal Volume PEEP Peak Inspir Pressure Pressure Support Sodium 131 L Potassium Cancelled 5.0 Chloride Cancelled 101 Carbon Dioxide Cancelled Anion Gap BUN Creatinine Estim Creat Clear Calc Estimated GFR Glucose POC Capillary Glucose Hemoglobin A1c Lactic Acid Calcium Phosphorus Magnesium Iron TIBC % Saturation Ferritin Total Bilirubin AST ALT Alkaline Phosphatase Total Creatine Kinase Troponin I C-Reactive Protein NT-Pro-B Natriuret Pep Total Protein Albumin Vitamin B12 Folate TSH (Reflex) Urine Color Urine Appearance Urine pH Ur Specific Heber Urine Protein Urine Glucose (UA) Urine Ketones Ur Blood (Man) Urine Nitrate Urine Bilirubin Urine Urobilinogen Add Ur Microanalysis Leukocyte Esterase Rfl Urine RBC Urine WBC Ur Squamous Epith Cells Urine Bacteria Urine Casts Nasal MRSA (PCR) Influenza A (RT-PCR) Influenza B (RT-PCR) SARS-CoV-2 RNA (RT-PCR) Blood Type Antibody Screen 02/29/24 02/29/24 02/29/24 04:26 04:26 04:26 WBC RBC Hgb Hct MCV MCH MCHC RDW Plt Count MPV Immature Gran % (Auto) Neut % (Auto) Lymph % (Auto) Waller % (Auto) Eos % (Auto) Baso % (Auto) Lymph # (Auto) Waller # (Auto) Eos # (Auto) Baso # (Auto) Abs Immat Gran (auto) Absolute Neuts (auto) Absolute Nucleated RBC Nucleated RBC % ESR PT INR APTT Puncture Site ABG pH ABG pCO2 ABG pO2 ABG PO2/FiO2 Ratio ABG HCO3 ABG O2 Saturation ABG O2 Content ABG Base Excess A-a Gradient Oxyhemoglobin Carboxyhemoglobin Methemoglobin Reduced Hemoglobin Total Hemoglobin O2 Delivery Device O2 Liters/Min Minute Volume Vent Rate Vent Mode FiO2 Tidal Volume PEEP Peak Inspir Pressure Pressure Support Sodium Potassium Chloride Carbon Dioxide 23 Anion Gap Cancelled 7 BUN Cancelled 14 D Creatinine Cancelled Estim Creat Clear Calc Estimated GFR Glucose POC Capillary Glucose Hemoglobin A1c Lactic Acid Calcium Phosphorus Magnesium Iron TIBC % Saturation Ferritin Total Bilirubin AST ALT Alkaline Phosphatase Total Creatine Kinase Troponin I C-Reactive Protein NT-Pro-B Natriuret Pep Total Protein Albumin Vitamin B12 Folate TSH (Reflex) Urine Color Urine Appearance Urine pH Ur Specific Heber Urine Protein Urine Glucose (UA) Urine Ketones Ur Blood (Man) Urine Nitrate Urine Bilirubin Urine Urobilinogen Add Ur Microanalysis Leukocyte Esterase Rfl Urine RBC Urine WBC Ur Squamous Epith Cells Urine Bacteria Urine Casts Nasal MRSA (PCR) Influenza A (RT-PCR) Influenza B (RT-PCR) SARS-CoV-2 RNA (RT-PCR) Blood Type Antibody Screen 02/29/24 02/29/24 02/29/24 04:26 04:26 04:26 WBC RBC Hgb Hct MCV MCH MCHC RDW Plt Count MPV Immature Gran % (Auto) Neut % (Auto) Lymph % (Auto) Waller % (Auto) Eos % (Auto) Baso % (Auto) Lymph # (Auto) [place]er # (Auto) Eos # (Auto) Baso # (Auto) Abs Immat Gran (auto) Absolute Neuts (auto) Absolute Nucleated RBC Nucleated RBC % ESR PT INR APTT Puncture Site ABG pH ABG pCO2 ABG pO2 ABG PO2/FiO2 Ratio ABG HCO3 ABG O2 Saturation ABG O2 Content ABG Base Excess A-a Gradient Oxyhemoglobin Carboxyhemoglobin Methemoglobin Reduced Hemoglobin Total Hemoglobin O2 Delivery Device O2 Liters/Min Minute Volume Vent Rate Vent Mode FiO2 Tidal Volume PEEP Peak Inspir Pressure Pressure Support Sodium Potassium Chloride Carbon Dioxide Anion Gap BUN Creatinine 1.00 Estim Creat Clear Calc Cancelled 64 Estimated GFR Cancelled > 60 Glucose Cancelled POC Capillary Glucose Hemoglobin A1c Lactic Acid Calcium Phosphorus Magnesium Iron TIBC % Saturation Ferritin Total Bilirubin AST ALT Alkaline Phosphatase Total Creatine Kinase Troponin I C-Reactive Protein NT-Pro-B Natriuret Pep Total Protein Albumin Vitamin B12 Folate TSH (Reflex) Urine Color Urine Appearance Urine pH Ur Specific Heber Urine Protein Urine Glucose (UA) Urine Ketones Ur Blood (Man) Urine Nitrate Urine Bilirubin Urine Urobilinogen Add Ur Microanalysis Leukocyte Esterase Rfl Urine RBC Urine WBC Ur Squamous Epith Cells Urine Bacteria Urine Casts Nasal MRSA (PCR) Influenza A (RT-PCR) Influenza B (RT-PCR) SARS-CoV-2 RNA (RT-PCR) Blood Type Antibody Screen 02/29/24 02/29/24 02/29/24 04:26 04:26 04:26 WBC RBC Hgb Hct MCV MCH MCHC RDW Plt Count MPV Immature Gran % (Auto) Neut % (Auto) Lymph % (Auto) Waller % (Auto) Eos % (Auto) Baso % (Auto) Lymph # (Auto) [place]er # (Auto) Eos # (Auto) Baso # (Auto) Abs Immat Gran (auto) Absolute Neuts (auto) Absolute Nucleated RBC Nucleated RBC % ESR PT INR APTT Puncture Site ABG pH ABG pCO2 ABG pO2 ABG PO2/FiO2 Ratio ABG HCO3 ABG O2 Saturation ABG O2 Content ABG Base Excess A-a Gradient Oxyhemoglobin Carboxyhemoglobin Methemoglobin Reduced Hemoglobin Total Hemoglobin O2 Delivery Device O2 Liters/Min Minute Volume Vent Rate Vent Mode FiO2 Tidal Volume PEEP Peak Inspir Pressure Pressure Support Sodium Potassium Chloride Carbon Dioxide Anion Gap BUN Creatinine Estim Creat Clear Calc Estimated GFR Glucose 202 H POC Capillary Glucose Hemoglobin A1c Lactic Acid 1.3 Calcium Cancelled 7.0 L Phosphorus Magnesium Cancelled 2.1 Iron 18 L TIBC 131 L % Saturation 14 L Ferritin 475.00 H Total Bilirubin AST ALT Alkaline Phosphatase Total Creatine Kinase Troponin I 3.170 H* D C-Reactive Protein NT-Pro-B Natriuret Pep Total Protein Albumin Vitamin B12 Folate TSH (Reflex) Urine Color Urine Appearance Urine pH Ur Specific Heber Urine Protein Urine Glucose (UA) Urine Ketones Ur Blood (Man) Urine Nitrate Urine Bilirubin Urine Urobilinogen Add Ur Microanalysis Leukocyte Esterase Rfl Urine RBC Urine WBC Ur Squamous Epith Cells Urine Bacteria Urine Casts Nasal MRSA (PCR) Influenza A (RT-PCR) Influenza B (RT-PCR) SARS-CoV-2 RNA (RT-PCR) Blood Type Antibody Screen 1002/29/24 02/29/24 04:26 05:36 08:02 WBC RBC Hgb Hct MCV MCH MCHC RDW Plt Count MPV Immature Gran % (Auto) Neut % (Auto) Lymph % (Auto) [place]er % (Auto) Eos % (Auto) Baso % (Auto) Lymph # (Auto) [place]er # (Auto) Eos # (Auto) Baso # (Auto) Abs Immat Gran (auto) Absolute Neuts (auto) Absolute Nucleated RBC Nucleated RBC % ESR PT INR APTT Puncture Site Left brachial ABG pH 7.344 L ABG pCO2 42.1 ABG pO2 315.9 H ABG PO2/FiO2 Ratio 4.51 ABG HCO3 22.4 ABG O2 Saturation 99.7 ABG O2 Content 19.3 ABG Base Excess -3.2 A-a Gradient 137.9 Oxyhemoglobin 97.8 Carboxyhemoglobin 1.6 Methemoglobin 0.3 Reduced Hemoglobin 0.3 Total Hemoglobin 13.5 O2 Delivery Device Ventilator O2 Liters/Min Not Reportable Minute Volume Not Reportable Vent Rate 24 Vent Mode Cmv FiO2 70 Tidal Volume 450 PEEP 8 Peak Inspir Pressure Not Reportable Pressure Support Not Reportable Sodium Potassium Chloride Carbon Dioxide Anion Gap BUN Creatinine Estim Creat Clear Calc Estimated GFR Glucose POC Capillary Glucose Hemoglobin A1c Lactic Acid Calcium Phosphorus Magnesium Iron TIBC % Saturation Ferritin Total Bilirubin AST ALT Alkaline Phosphatase Total Creatine Kinase Troponin I Cancelled 6.580 H* D C-Reactive Protein NT-Pro-B Natriuret Pep Total Protein Albumin Vitamin B12 676.0 Folate 2.1 L TSH (Reflex) 2.160 Urine Color Urine Appearance Urine pH Ur Specific [place] Urine Protein Urine Glucose (UA) Urine Ketones Ur Blood (Man) Urine Nitrate Urine Bilirubin Urine Urobilinogen Add Ur Microanalysis Leukocyte Esterase Rfl Urine RBC Urine WBC Ur Squamous Epith Cells Urine Bacteria Urine Casts Nasal MRSA (PCR) Influenza A (RT-PCR) Influenza B (RT-PCR) SARS-CoV-2 RNA (RT-PCR) Blood Type Antibody Screen 02/29/24 02/29/24 02/29/24 09:18 11:46 11:47 WBC RBC Hgb Hct MCV MCH MCHC RDW Plt Count MPV Immature Gran % (Auto) Neut % (Auto) Lymph % (Auto) [place] % (Auto) Eos % (Auto) Baso % (Auto) Lymph # (Auto) [place] # (Auto) Eos # (Auto) Baso # (Auto) Abs Immat Gran (auto) Absolute Neuts (auto) Absolute Nucleated RBC Nucleated RBC % ESR PT INR APTT 72.7 H Puncture Site ABG pH ABG pCO2 ABG pO2 ABG PO2/FiO2 Ratio ABG HCO3 ABG O2 Saturation ABG O2 Content ABG Base Excess A-a Gradient Oxyhemoglobin Carboxyhemoglobin Methemoglobin Reduced Hemoglobin Total Hemoglobin O2 Delivery Device O2 Liters/Min Minute Volume Vent Rate Vent Mode FiO2 Tidal Volume PEEP Peak Inspir Pressure Pressure Support Sodium Potassium Chloride Carbon Dioxide Anion Gap BUN Creatinine Estim Creat Clear Calc Estimated GFR Glucose POC Capillary Glucose 183 H 162 H Hemoglobin A1c Lactic Acid Calcium Phosphorus Magnesium Iron TIBC % Saturation Ferritin Total Bilirubin AST ALT Alkaline Phosphatase Total Creatine Kinase Troponin I C-Reactive Protein NT-Pro-B Natriuret Pep Total Protein Albumin Vitamin B12 Folate TSH (Reflex) Urine Color Urine Appearance Urine pH Ur Specific [place] Urine Protein Urine Glucose (UA) Urine Ketones Ur Blood (Man) Urine Nitrate Urine Bilirubin Urine Urobilinogen Add Ur Microanalysis Leukocyte Esterase Rfl Urine RBC Urine WBC Ur Squamous Epith Cells Urine Bacteria Urine Casts Nasal MRSA (PCR) Influenza A (RT-PCR) Influenza B (RT-PCR) SARS-CoV-2 RNA (RT-PCR) Blood Type Antibody Screen
[2024-02-29 13:36] LABS: Glucose Point of Care 157 mg/dl (65-105)
--- NOTE | 2024-02-29 14:36 | P.PCNBED_ITS ---
Procedures Central Line Placement Left Femoral: Central Line Date: 02/28/24 Central Line Time: 23:30 Performed Emergently - Given emergent patient condition, temporal constraints may have precluded informed consent.: Yes (see below) Consent: Line was placed emergently with implied consent. The patient refused to name a surrogate decision maker and had expressed his wishes to be a full code earlier in the day. Time Out Performed: Yes Patient Position: supine Patient placed on monitor/pulse ox: Yes Provider Prep: mask, sterile gown, sterile gloves, Max. sterile barrier precautions, cap and hand hygiene with conventional soap/water or alcohol based hand rub Central line prep: 2% Chlorhexidine scrub Local anesthesia used: lidocaine 1% Amount of anesthesia used (ml): 3 Sterile US Technique with sterile gel/sterile probe covers: Yes Central line lumen inserted: triple [place]: 7 Length (cm): 20 Post Procedure: sutured in place, good blood return, all ports aspirated, flushed, capped, transparent dressing and aseptic technique maintained throug hout procedure Post procedure x-ray: other (n/a with femoral placement) Complications: none
[2024-02-29] MEDS: VANCOMYCIN 1,500 MG/NS 500 ML 1,500 MG/500 ML BAG 250 MG IVPB (14:51)
--- NOTE | 2024-02-29 15:46 | PM.IMPN ---
Progress Note: A&P Assessment and Plan (1) Septic shock: Code(s): A41.9 - Sepsis, unspecified organism; R65.21 - Severe sepsis with septic shock Status: Acute (2) NSTEMI (non-ST elevated myocardial infarction): Code(s): I21.4 - Non-ST elevation (NSTEMI) myocardial infarction Status: Acute (3) Cardiac arrest: Code(s): I46.9 - Cardiac arrest, cause unspecified Status: Acute Plan 68 year old male past medical history of alcohol abuse, COPD, peripheral neuropathy, peripheral vascular disease, type 2 diabetes presented the ED on 02/28/2024 via EMS for gangrenous right foot infection with cellulitis. The right foot ganglion has had drainage and malodorous.CTA of the left lower extremity showed total occlusion of the right anterior and posterior tibial arteries and right peroneal artery with distal reconstitution. Moderate stenosis of the right popliteal artery and osteomyelitis involving the 1st proximal and distal phalanges and head of the 1st metatarsal. He was started on cefepime, metronidazole and vancomycin, surgery was consulted and offered [id number] amputation. He was admitted to the medical floor, after arriving to the medical floor a got tachycardic in the 150s and was having difficulty breathing. His O2 sats were 83% on room air was placed supplemental oxygen. He guarded to use the commode, dropped his O2 sats again the low 80s, was diaphoretic, was less responsive and a rapid response was called which was converted to a code blue. Patient was in PEA, was intubated by ER physician, central line was inserted and was started on Levophed. Patient was given 2 L IV fluid bolus and transferred to the ICU for further management. 1. Cardiac arrest: Patient intubated sedated and on pressor support Unclear etiology at the moment 2. Septic shock: on pressor support patient has been adequately fluid-resuscitated Started on stress dose steroids Has been started on vancomycin, meropenem, clindamycin 3. NSTEMI: Increasing troponins Appreciate cardiology help EKG showed sinus rhythm with T-wave changes in V1 to V5 -currently on heparin infusion for NSTEMI -will add aspirin and high-dose a statin -will hold Brilinta -will also hold beta-brayden, losartan which is home med, since he is hypotensive on vasopressors 4. Gangrene of right foot: CTA showed peripheral arterial disease with total occlusion of the right anterior and posterior tibial arteries and right peroneal artery with distal reconstitution of peroneal artery. This extensive gangrene of the right foot with gas seen on CT of the foot. -pre following the patient, plan was to do a below-knee amputation on 02/29/2024 but given his cardiac arrest, NSTEMI and on pressors this has been deferred. Continue with antibiotic as mentioned above 5. Type 2 diabetes mellitus: Currently on sliding scale insulin with Accu-Cheks 6. Due to prophylaxis: On heparin drip 7. Code status: Full 8. Disposition: Pending improvement, continues to be in ICU Time Spent With Patient Time with patient: 15 - 25 minutes Subjective Date/time seen: 02/29/24 15:46 Interval history: Status post cardiac arrest, code blue Patient was intubated, transferred to ICU Review of Systems Review of Systems: ROS unobtainable: Yes unobtainable due to endotracheal tube and unobtainable due to medical condition Exam Narrative: General: Patient intubated and sedated no acute distress HEENT:, clear sclera Neck:? supple Respiratory:? Coarse breath sounds bilaterally, decreased at bases, adequate air entry Cardiac:? S1-S2 normal, regular rate and rhythm Abdomen:? Soft, nontender, nondistended, hypoactive bowel sounds Extremities:? Gangrenous right 1st toe down to the 1st metatarsal, dorsum of the foot and all the way to approximately the heel on the medial aspect and plantar aspect of the foot over the 1st metatarsal. Purulent drainage and foul order. There is also erythema and swelling of the right foot. Posterior tibial and pedal pulses are not palpable Neuro:? Patient is intubated, sedated, opens eyes but does not follow simple commands Skin:? Patient has maceration of his perianal area, and states to pressure ulcer on his buttocks. Psych:? Unable to assess Objective Data Vital Signs Vital Signs: Vital Signs - 24 hr 02/28/24 16:09 02/28/24 19:55 02/28/24 21:15 Temperature 98.6 F Pulse Rate 100 112 H 150 H Respiratory Rate 19 20 30 H Blood Pressure 168/106 H 160/77 H 153/83 H Pulse Oximetry 97 93 91 Oxygen Delivery Fraction of Inspired Oxygen 02/28/24 20:00 02/28/24 21:06 02/28/24 21:05 Temperature Pulse Rate 152 H 152 H Respiratory Rate 36 H 20 Blood Pressure 153/80 H Pulse Oximetry 78 L Oxygen Delivery Room Air Fraction of Inspired Oxygen 02/28/24 21:05 02/28/24 21:00 02/28/24 22:05 Temperature Pulse Rate 151 H 140 H 137 H Respiratory Rate 20 20 Blood Pressure Pulse Oximetry 99 Oxygen Delivery Mechanical Ventilation Fraction of Inspired Oxygen 100 02/28/24 22:06 02/28/24 21:45 02/28/24 22:31 Temperature Pulse Rate 137 H 137 H 128 H Respiratory Rate 18 18 24 H Blood Pressure Pulse Oximetry 91 Oxygen Delivery Mechanical Ventilation Fraction of Inspired Oxygen 100 02/28/24 22:59 02/28/24 23:10 02/28/24 23:35 Temperature 97.4 F L Pulse Rate 118 H 115 H 100 Respiratory Rate 22 H 20 Blood Pressure 79/56 L 71/50 L Pulse Oximetry 100 Oxygen Delivery Fraction of Inspired Oxygen 02/28/24 23:40 02/28/24 23:43 02/28/24 23:35 Temperature Pulse Rate 101 H 132 H 110 H Respiratory Rate 20 Blood Pressure 71/50 L Pulse Oximetry 98 Oxygen Delivery Mechanical Ventilation Fraction of Inspired Oxygen 80 02/28/24 23:52 02/28/24 23:52 02/29/24 00:00 Temperature 96.6 F L 96.4 F L Pulse Rate 96 97 106 H Respiratory Rate 17 25 H Blood Pressure 74/54 L 74/54 L 98/67 L Pulse Oximetry 100 100 Oxygen Delivery Fraction of Inspired Oxygen 02/29/24 00:00 02/29/24 00:02 02/29/24 00:02 Temperature Pulse Rate 107 H 108 H Respiratory Rate 25 H 25 H Blood Pressure Pulse Oximetry Oxygen Delivery Fraction of Inspired Oxygen 80 02/29/24 00:00 02/29/24 00:00 02/29/24 00:50 Temperature Pulse Rate 108 H 109 H 105 H Respiratory Rate 25 H 24 H Blood Pressure 78/59 L Pulse Oximetry 100 100 Oxygen Delivery Mechanical Ventilation Fraction of Inspired Oxygen 80 02/29/24 00:50 02/29/24 01:15 02/29/24 02:00 Temperature Pulse Rate 105 H 102 H 91 Respiratory Rate Blood Pressure 78/59 L 89/63 L 86/62 L Pulse Oximetry Oxygen Delivery Fraction of Inspired Oxygen 02/29/24 02:15 02/29/24 04:00 02/29/24 02:00 Temperature Pulse Rate 94 88 91 Respiratory Rate 24 H Blood Pressure 92/67 L 102/65 Pulse Oximetry Oxygen Delivery Fraction of Inspired Oxygen 02/29/24 04:00 02/29/24 02:00 02/29/24 04:00 Temperature Pulse Rate 88 95 88 Respiratory Rate 24 H 24 H 24 H Blood Pressure Pulse Oximetry Oxygen Delivery Fraction of Inspired Oxygen 02/29/24 04:00 02/29/24 04:00 02/29/24 04:00 Temperature 97.8 F Pulse Rate 88 88 Respiratory Rate 24 H 24 H Blood Pressure 102/65 Pulse Oximetry 100 100 Oxygen Delivery Mechanical Ventilation Fraction of Inspired Oxygen 80 70 02/29/24 04:00 02/29/24 01:15 02/29/24 01:30 Temperature 96.5 F L 96.6 F L Pulse Rate 88 94 95 Respiratory Rate 24 H 24 H Blood Pressure 89/63 L 90/64 L Pulse Oximetry 100 100 Oxygen Delivery Fraction of Inspired Oxygen 02/29/24 02:00 02/29/24 02:15 02/29/24 02:30 Temperature 96.8 F L 96.9 F L 97 F L Pulse Rate 91 94 92 Respiratory Rate 24 H 24 H 24 H Blood Pressure 86/62 L 92/67 L 95/66 L Pulse Oximetry 100 100 100 Oxygen Delivery Fraction of Inspired Oxygen 02/29/24 05:38 02/29/24 05:56 02/29/24 05:57 Temperature Pulse Rate 84 81 81 Respiratory Rate 24 H 24 H Blood Pressure Pulse Oximetry 100 Oxygen Delivery Mechanical Ventilation Fraction of Inspired Oxygen 80 02/29/24 06:08 02/29/24 06:00 02/29/24 06:15 Temperature 97.5 F L 97.5 F L Pulse Rate 82 81 83 Respiratory Rate 24 H 24 H Blood Pressure 108/68 108/68 99/62 L Pulse Oximetry 100 100 Oxygen Delivery Fraction of Inspired Oxygen 02/29/24 08:20 02/29/24 08:00 02/29/24 08:00 Temperature 97.7 F Pulse Rate 75 79 Respiratory Rate 24 H Blood Pressure 113/68 Pulse Oximetry 99 99 Oxygen Delivery Mechanical Ventilation Fraction of Inspired Oxygen 50 50 02/29/24 08:00 02/29/24 08:00 02/29/24 10:00 Temperature 97.6 F Pulse Rate 79 79 74 Respiratory Rate 24 H 21 H Blood Pressure 109/64 Pulse Oximetry 99 98 Oxygen Delivery Mechanical Ventilation Fraction of Inspired Oxygen 50 02/29/24 11:05 02/29/24 11:06 02/29/24 10:45 Temperature Pulse Rate 76 76 76 Respiratory Rate Blood Pressure 111/58 L 111/58 L Pulse Oximetry 100 Oxygen Delivery Mechanical Ventilation Fraction of Inspired Oxygen 40 02/29/24 12:00 02/29/24 12:00 02/29/24 12:00 Temperature Pulse Rate 76 73 Respiratory Rate 24 H Blood Pressure Pulse Oximetry 99 Oxygen Delivery Mechanical Ventilation Fraction of Inspired Oxygen 40 50 02/29/24 12:00 02/29/24 13:43 02/29/24 08:00 Temperature 97.6 F Pulse Rate 73 74 79 Respiratory Rate 24 H 24 H Blood Pressure 110/62 Pulse Oximetry 100 100 Oxygen Delivery Mechanical Ventilation Fraction of Inspired Oxygen 40 02/29/24 10:00 02/29/24 12:00 02/29/24 08:00 Temperature Pulse Rate 78 76 79 Respiratory Rate 24 H 24 H Blood Pressure 113/68 Pulse Oximetry Oxygen Delivery Fraction of Inspired Oxygen 02/29/24 10:00 02/29/24 12:00 02/29/24 13:45 Temperature Pulse Rate 78 69 73 Respiratory Rate Blood Pressure 103/57 L 110/60 119/67 Pulse Oximetry Oxygen Delivery Fraction of Inspired Oxygen 02/29/24 08:00 02/29/24 10:00 02/29/24 12:00 Temperature Pulse Rate 81 75 69 Respiratory Rate 24 H 24 H 24 H Blood Pressure Pulse Oximetry Oxygen Delivery Fraction of Inspired Oxygen 02/29/24 14:00 02/29/24 14:00 02/29/24 14:00 Temperature 97.8 F Pulse Rate 72 75 78 Respiratory Rate 24 H 24 H Blood Pressure 123/69 133/66 Pulse Oximetry 100 Oxygen Delivery Fraction of Inspired Oxygen 02/29/24 14:00 02/29/24 14:05 02/29/24 14:45 Temperature Pulse Rate 78 78 77 Respiratory Rate 24 H 24 H Blood Pressure 123/69 Pulse Oximetry Oxygen Delivery Fraction of Inspired Oxygen 02/29/24 14:50 Temperature Pulse Rate 78 Respiratory Rate Blood Pressure 127/71 Pulse Oximetry Oxygen Delivery Fraction of Inspired Oxygen Intake/Output Intake/Output: Intake & Output 02/26/24 02/27/24 02/28/24 02/29/24 23:59 23:59 23:59 23:59 Intake Total 2144.8 3749.3 Output Total 700 Balance 2144.8 3049.3 Meds/Results Medications: Active Medications Generic Name Dose Route Start Last Admin Trade Name Freq PRN Reason Stop Dose Admin Acetaminophen 500 mg 02/28/24 19:15 Acetaminophen 500 Mg Tablet PO Q6H PRN Pain Rated 1-3 Albuterol/Ipratropium 3 ml 02/29/24 02:00 02/29/24 13:38 Ipratropium 0.5 Mg/Albuterol Sulfate 2.5 Mg Ampul.Neb 3 Ml INHALATION 3 ml Q6HRT JASON Administration Aspirin 81 mg 03/01/24 08:00 Aspirin 81 Mg Chewable Tablet PO DAILY@0800 [facility] Atorvastatin Calcium 80 mg 03/01/24 09:00 Atorvastatin 40 Mg Tablet PO DAILY [facility] Dextrose 12.5 gm 02/28/24 19:23 Dextrose 50% 25 Gm/50 Ml Syringe IV PUSH PRN PRN Hypoglycemia Protocol Glucagon 1 mg 02/28/24 19:23 Glucagon For Inj 1 Mg Vial IM PRN PRN Hypoglycemia Protocol Glucose 15 gm 02/28/24 19:23 Glucose Oral Gel 15 Gm Of Glucse In 37.5 Gm Tube PO PRN PRN Hypoglycemia Protocol Heparin Sodium (Porcine) 4,000 units 02/29/24 05:31 Heparin Sodium 5,000 Units/Ml Vial IV PUSH PRN PRN aPTT less than 55 seconds Heparin Sodium (Porcine) 3,000 units 02/29/24 05:31 Heparin Sodium 5,000 Units/Ml Vial IV PUSH PRN PRN aPTT 55 - 70 seconds Hydrocortisone Sodium Succinate 100 mg 02/29/24 14:00 02/29/24 13:21 Hydrocortisone Sodium Succinate 100 Mg/2 Ml Vial IV PUSH 100 mg Q8HR JASON Administration Dextrose 1,000 mls @ 100 mls/hr 02/28/24 19:23 Dextrose 5% 1,000 Ml IVPB PRN PRN Hypoglycemia Protocol Fentanyl Citrate 2,500 mcg in 250 mls @ 10 mls/hr 02/28/24 21:20 02/29/24 14:00 Fentanyl 2,500 Mcg/Ns 250 Ml IV CONT 100 mcg/hr .Q25H JASON 10 mls/hr Titration Protocol 100 MCG/HR Midazolam HCl 100 mg in 100 mls @ 2 mls/hr 02/28/24 21:20 02/29/24 14:00 Versed 100 Mg/Ns 100 Ml IV CONT 2 mg/hr .Q50H JASON 2 mls/hr Titration Protocol 2 MG/HR Meropenem 1 gm in 100 mls @ 200 mls/hr 02/28/24 22:00 02/29/24 13:21 IVPB 200 mls/hr Q8H JASON Administration Clindamycin Phosphate 900 mg in 50 mls @ 50 mls/hr 02/28/24 21:00 02/29/24 13:20 Cleocin 900 Mg/D5w 50 Ml IVPB 50 mls/hr Q8H JASON Administration Sodium Chloride 1,000 mls @ 100 mls/hr 02/28/24 22:55 02/29/24 09:20 Normal Saline Iv IV CONT 100 mls/hr .Q10H JASON Administration Norepinephrine Bitartrate 8 mg in 250 mls @ 16.875 mls/hr 02/28/24 23:05 02/29/24 14:50 Levophed 8 Mg/D5w 250 Ml IV CONT 9 mcg/min .[id number] JASON 16.88 mls/hr Titration Protocol 9 MCG/MIN Heparin Sodium/Dextrose 25,000 units in 250 mls @ 10 mls/hr 02/29/24 05:35 02/29/24 14:00 Heparin Sodium/D5w 100 Units/Ml IV CONT 1,000 units/hr .Q24H JASON 10 mls/hr Titration Protocol 1,000 UNITS/HR Vancomycin HCl 1,500 mg in 500 mls @ 250 mls/hr 02/29/24 14:00 02/29/24 14:51 Vancomycin 1,500 Mg/Ns 500 Ml IVPB 250 mls/hr Q18H JASON Administration Insulin Aspart 3 - 6 units 02/29/24 08:00 02/29/24 13:39 Insulin Aspart (*Bkc) 100 Units/Ml SUB-Q Not Given Q6H JASON Protocol Multi-Ingred Cream/Lotion/Oil/Oint 1 applic 02/29/24 09:00 02/29/24 09:20 Mineral Oil/White Petrolatum Ointment EACH EYE 1 applic Q12HR JASON Administration Naloxone HCl 0.1 mg 02/28/24 19:15 Naloxone Hcl 0.4 Mg/Ml Vial IV PUSH Q2M PRN Opiate Reversal Pantoprazole Sodium 40 mg 02/29/24 09:00 02/29/24 09:20 Pantoprazole Sodium Iv 40 Mg Vial IV PUSH 40 mg QAM JASON Administration Perflutren Lipid Microsphere 0 ml 02/29/24 00:21 Perflutren Lipid Microspheres 1.5 Ml Vial Diluted To 10 Ml Total Volume IV PUSH 03/03/24 00:21 ONCE PRN adequate visualization Protocol Fluticasone/Salmeterol 2 puff 02/29/24 20:00 Fluticasone/Salmeterol 115-21 Mcg Inhaler 1 Puff INHALATION Q12HRT JASON Sodium Chloride 10 ml 02/29/24 06:00 02/29/24 13:13 Central Line Flush IV PUSH 10 ml Q8HR JASON Administration Sodium Chloride 20 ml 02/28/24 23:37 Central Line Flush IV PUSH PRN PRN after blood draws Radiology Results: ITS Impressions Lower Extremity CTA 02/28/24 14:54 IMPRESSION: 1. 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 2. Moderate stenosis of right popliteal artery. 3. Osteomyelitis involving first proximal and distal phalanges and head of first metatarsal. Chest X-Ray 02/28/24 21:30 IMPRESSION: 1. Diffuse right lung disease, likely pneumonia. Abdomen X-Ray 02/28/24 21:31 IMPRESSION: 1. Nasogastric tube tip beyond the inferior margin of the radiograph, but at least to the distal stomach. Head CT 02/29/24 05:55 Impression: No intracranial hemorrhage, mass, or acute infarct. Stable chronic encephalomalacia in the high left parietal lobe. Atrophy and chronic white matter changes, as above. Chest/Abdomen/Pelvis CTA 02/29/24 06:02 Impression: Extensive right upper lobe consolidation and more mild right middle lobe consolidation, consistent with pneumonia. Consider aspiration pneumonia. Moderate to large right pleural effusion with complete atelectasis of the right lower lobe. Moderate left pleural effusion with minimal left basilar atelectasis. Small pericardial effusion. No definite acute abnormality in the abdomen or pelvis. Chronic compression fractures, as above. Labs Labs: Laboratory Results - last 24 hr 02/28/24 02/28/24 02/28/24 17:42 20:51 21:31 WBC RBC Hgb Hct MCV MCH MCHC RDW Plt Count MPV PT INR APTT Puncture Site ABG pH ABG pCO2 ABG pO2 ABG PO2/FiO2 Ratio ABG HCO3 ABG O2 Saturation ABG O2 Content ABG Base Excess A-a Gradient Oxyhemoglobin Carboxyhemoglobin Methemoglobin Reduced Hemoglobin Total Hemoglobin O2 Delivery Device O2 Liters/Min Minute Volume Vent Rate Vent Mode FiO2 Tidal Volume PEEP Peak Inspir Pressure Pressure Support Sodium Potassium Chloride Carbon Dioxide Anion Gap BUN Creatinine Estim Creat Clear Calc Estimated GFR Glucose POC Capillary Glucose 93 149 H Lactic Acid 5.0 H* Calcium Phosphorus Magnesium Iron TIBC % Saturation Ferritin Total Bilirubin AST ALT Alkaline Phosphatase Total Creatine Kinase Troponin I NT-Pro-B Natriuret Pep Total Protein Albumin Vitamin B12 Folate TSH (Reflex) Nasal MRSA (PCR) Influenza A (RT-PCR) Influenza B (RT-PCR) SARS-CoV-2 RNA (RT-PCR) 02/28/24 02/28/24 02/29/24 21:32 22:57 00:29 WBC RBC Hgb Hct MCV MCH MCHC RDW Plt Count MPV PT 18.3 H INR 1.5 APTT 46.9 H Puncture Site Right radial ABG pH 7.300 L ABG pCO2 46.5 H ABG pO2 313.4 H ABG PO2/FiO2 Ratio 3.48 ABG HCO3 22.4 ABG O2 Saturation 99.7 ABG O2 Content 16.2 ABG Base Excess -4.0 A-a Gradient 280.6 Oxyhemoglobin 98.3 Carboxyhemoglobin Methemoglobin Reduced Hemoglobin Total Hemoglobin 11.1 L O2 Delivery Device Ventilator O2 Liters/Min Not Reportable Minute Volume Not Reportable Vent Rate 20 Vent Mode Cmv FiO2 90 Tidal Volume 450 PEEP 8 Peak Inspir Pressure Not Reportable Pressure Support Not Reportable Sodium 132 L Potassium 3.7 Chloride 101 Carbon Dioxide 19 L Anion Gap 12 BUN 9 Creatinine 0.70 Estim Creat Clear Calc 90 Estimated GFR > 60 Glucose 197 H POC Capillary Glucose Lactic Acid Calcium 7.7 L Phosphorus 5.7 H Magnesium 2.1 Iron TIBC % Saturation Ferritin Total Bilirubin 0.5 AST 50 ALT 23 Alkaline Phosphatase 137 H Total Creatine Kinase 81 Troponin I 0.219 H* NT-Pro-B Natriuret Pep 2220 H Total Protein 7.0 Albumin 2.9 L Vitamin B12 Folate TSH (Reflex) Nasal MRSA (PCR) Not detected Influenza A (RT-PCR) Negative Influenza B (RT-PCR) Negative SARS-CoV-2 RNA (RT-PCR) Negative 02/29/24 02/29/24 02/29/24 04:26 04:26 04:26 WBC 33.7 H RBC 3.40 L Hgb 9.3 L Hct 29.5 L MCV 86.8 MCH 27.4 MCHC 31.5 L RDW 14.8 H Plt Count 477 H MPV 8.5 PT INR APTT Puncture Site ABG pH ABG pCO2 ABG pO2 ABG PO2/FiO2 Ratio ABG HCO3 ABG O2 Saturation ABG O2 Content ABG Base Excess A-a Gradient Oxyhemoglobin Carboxyhemoglobin Methemoglobin Reduced Hemoglobin Total Hemoglobin O2 Delivery Device O2 Liters/Min Minute Volume Vent Rate Vent Mode FiO2 Tidal Volume PEEP Peak Inspir Pressure Pressure Support Sodium Cancelled 131 L Potassium Cancelled 5.0 Chloride Cancelled Carbon Dioxide Anion Gap BUN Creatinine Estim Creat Clear Calc Estimated GFR Glucose POC Capillary Glucose Lactic Acid Calcium Phosphorus Magnesium Iron TIBC % Saturation Ferritin Total Bilirubin AST ALT Alkaline Phosphatase Total Creatine Kinase Troponin I NT-Pro-B Natriuret Pep Total Protein Albumin Vitamin B12 Folate TSH (Reflex) Nasal MRSA (PCR) Influenza A (RT-PCR) Influenza B (RT-PCR) SARS-CoV-2 RNA (RT-PCR) 02/29/24 02/29/24 02/29/24 04:26 04:26 04:26 WBC RBC Hgb Hct MCV MCH MCHC RDW Plt Count MPV PT INR APTT Puncture Site ABG pH ABG pCO2 ABG pO2 ABG PO2/FiO2 Ratio ABG HCO3 ABG O2 Saturation ABG O2 Content ABG Base Excess A-a Gradient Oxyhemoglobin Carboxyhemoglobin Methemoglobin Reduced Hemoglobin Total Hemoglobin O2 Delivery Device O2 Liters/Min Minute Volume Vent Rate Vent Mode FiO2 Tidal Volume PEEP Peak Inspir Pressure Pressure Support Sodium Potassium Chloride 101 Carbon Dioxide Cancelled 23 Anion Gap Cancelled 7 BUN Cancelled Creatinine Estim Creat Clear Calc Estimated GFR Glucose POC Capillary Glucose Lactic Acid Calcium Phosphorus Magnesium Iron TIBC % Saturation Ferritin Total Bilirubin AST ALT Alkaline Phosphatase Total Creatine Kinase Troponin I NT-Pro-B Natriuret Pep Total Protein Albumin Vitamin B12 Folate TSH (Reflex) Nasal MRSA (PCR) Influenza A (RT-PCR) Influenza B (RT-PCR) SARS-CoV-2 RNA (RT-PCR) 02/29/24 02/29/24 02/29/24 04:26 04:26 04:26 WBC RBC Hgb Hct MCV MCH MCHC RDW Plt Count MPV PT INR APTT Puncture Site ABG pH ABG pCO2 ABG pO2 ABG PO2/FiO2 Ratio ABG HCO3 ABG O2 Saturation ABG O2 Content ABG Base Excess A-a Gradient Oxyhemoglobin Carboxyhemoglobin Methemoglobin Reduced Hemoglobin Total Hemoglobin O2 Delivery Device O2 Liters/Min Minute Volume Vent Rate Vent Mode FiO2 Tidal Volume PEEP Peak Inspir Pressure Pressure Support Sodium Potassium Chloride Carbon Dioxide Anion Gap BUN 14 D Creatinine Cancelled 1.00 Estim Creat Clear Calc Cancelled 64 Estimated GFR Cancelled Glucose POC Capillary Glucose Lactic Acid Calcium Phosphorus Magnesium Iron TIBC % Saturation Ferritin Total Bilirubin AST ALT Alkaline Phosphatase Total Creatine Kinase Troponin I NT-Pro-B Natriuret Pep Total Protein Albumin Vitamin B12 Folate TSH (Reflex) Nasal MRSA (PCR) Influenza A (RT-PCR) Influenza B (RT-PCR) SARS-CoV-2 RNA (RT-PCR) 02/29/24 02/29/24 02/29/24 04:26 04:26 04:26 WBC RBC Hgb Hct MCV MCH MCHC RDW Plt Count MPV PT INR APTT Puncture Site ABG pH ABG pCO2 ABG pO2 ABG PO2/FiO2 Ratio ABG HCO3 ABG O2 Saturation ABG O2 Content ABG Base Excess A-a Gradient Oxyhemoglobin Carboxyhemoglobin Methemoglobin Reduced Hemoglobin Total Hemoglobin O2 Delivery Device O2 Liters/Min Minute Volume Vent Rate Vent Mode FiO2 Tidal Volume PEEP Peak Inspir Pressure Pressure Support Sodium Potassium Chloride Carbon Dioxide Anion Gap BUN Creatinine Estim Creat Clear Calc Estimated GFR > 60 Glucose Cancelled 202 H POC Capillary Glucose Lactic Acid 1.3 Calcium Cancelled 7.0 L Phosphorus Magnesium Cancelled Iron TIBC % Saturation Ferritin Total Bilirubin AST ALT Alkaline Phosphatase Total Creatine Kinase Troponin I NT-Pro-B Natriuret Pep Total Protein Albumin Vitamin B12 Folate TSH (Reflex) Nasal MRSA (PCR) Influenza A (RT-PCR) Influenza B (RT-PCR) SARS-CoV-2 RNA (RT-PCR) 02/29/24 02/29/24 02/29/24 04:26 04:26 05:36 WBC RBC Hgb Hct MCV MCH MCHC RDW Plt Count MPV PT INR APTT Puncture Site Left brachial ABG pH 7.344 L ABG pCO2 42.1 ABG pO2 315.9 H ABG PO2/FiO2 Ratio 4.51 ABG HCO3 22.4 ABG O2 Saturation 99.7 ABG O2 Content 19.3 ABG Base Excess -3.2 A-a Gradient 137.9 Oxyhemoglobin 97.8 Carboxyhemoglobin 1.6 Methemoglobin 0.3 Reduced Hemoglobin 0.3 Total Hemoglobin 13.5 O2 Delivery Device Ventilator O2 Liters/Min Not Reportable Minute Volume Not Reportable Vent Rate 24 Vent Mode Cmv FiO2 70 Tidal Volume 450 PEEP 8 Peak Inspir Pressure Not Reportable Pressure Support Not Reportable Sodium Potassium Chloride Carbon Dioxide Anion Gap BUN Creatinine Estim Creat Clear Calc Estimated GFR Glucose POC Capillary Glucose Lactic Acid Calcium Phosphorus Magnesium 2.1 Iron 18 L TIBC 131 L % Saturation 14 L Ferritin 475.00 H Total Bilirubin AST ALT Alkaline Phosphatase Total Creatine Kinase Troponin I 3.170 H* D Cancelled NT-Pro-B Natriuret Pep Total Protein Albumin Vitamin B12 676.0 Folate 2.1 L TSH (Reflex) 2.160 Nasal MRSA (PCR) Influenza A (RT-PCR) Influenza B (RT-PCR) SARS-CoV-2 RNA (RT-PCR) 02/29/24 02/29/24 02/29/24 08:02 09:18 11:46 WBC RBC Hgb Hct MCV MCH MCHC RDW Plt Count MPV PT INR APTT 72.7 H Puncture Site ABG pH ABG pCO2 ABG pO2 ABG PO2/FiO2 Ratio ABG HCO3 ABG O2 Saturation ABG O2 Content ABG Base Excess A-a Gradient Oxyhemoglobin Carboxyhemoglobin Methemoglobin Reduced Hemoglobin Total Hemoglobin O2 Delivery Device O2 Liters/Min Minute Volume Vent Rate Vent Mode FiO2 Tidal Volume PEEP Peak Inspir Pressure Pressure Support Sodium Potassium Chloride Carbon Dioxide Anion Gap BUN Creatinine Estim Creat Clear Calc Estimated GFR Glucose POC Capillary Glucose 183 H Lactic Acid Calcium Phosphorus Magnesium Iron TIBC % Saturation Ferritin Total Bilirubin AST ALT Alkaline Phosphatase Total Creatine Kinase Troponin I 6.580 H* D NT-Pro-B Natriuret Pep Total Protein Albumin Vitamin B12 Folate TSH (Reflex) Nasal MRSA (PCR) Influenza A (RT-PCR) Influenza B (RT-PCR) SARS-CoV-2 RNA (RT-PCR) 02/29/24 02/29/24 11:47 13:34 WBC RBC Hgb Hct MCV MCH MCHC RDW Plt Count MPV PT INR APTT Puncture Site ABG pH ABG pCO2 ABG pO2 ABG PO2/FiO2 Ratio ABG HCO3 ABG O2 Saturation ABG O2 Content ABG Base Excess A-a Gradient Oxyhemoglobin Carboxyhemoglobin Methemoglobin Reduced Hemoglobin Total Hemoglobin O2 Delivery Device O2 Liters/Min Minute Volume Vent Rate Vent Mode FiO2 Tidal Volume PEEP Peak Inspir Pressure Pressure Support Sodium Potassium Chloride Carbon Dioxide Anion Gap BUN Creatinine Estim Creat Clear Calc Estimated GFR Glucose POC Capillary Glucose 162 H 157 H Lactic Acid Calcium Phosphorus Magnesium Iron TIBC % Saturation Ferritin Total Bilirubin AST ALT Alkaline Phosphatase Total Creatine Kinase Troponin I NT-Pro-B Natriuret Pep Total Protein Albumin Vitamin B12 Folate TSH (Reflex) Nasal MRSA (PCR) Influenza A (RT-PCR) Influenza B (RT-PCR) SARS-CoV-2 RNA (RT-PCR) Quality VTE Prophylaxis VTE prophylaxis: pharmacologic ordered
[2024-02-29 18:39] LABS: Partial Thromboplastin Time 73.2 Seconds (22.3-36.8)
[2024-02-29] MEDS: FENTANYL 2,500MCG/NS250ML(*CRX 2,500 MCG/250 ML BAG 10 MCG IV CONT (18:47)
[2024-02-29 23:24] LABS: Glucose Point of Care 201 mg/dl (65-105)
[2024-02-29] MEDS: INSULIN ASPART (*BKC) 100 UNITS/ML SUB-Q (23:33)
[2024-03-01] VITALS (68 sets, daily range): BP systolic 84–143; BP diastolic 40–84; PULSE 57–97; RESP 19–100; TEMP 36.1–36.9; O2SAT 24–100
[2024-03-01] MEDS: IPRATROPIUM 0.5 MG/ALBUTEROL SULFATE 2.5 MG AMPUL.NEB 3 ML INHALATION ×3 (02:31→20:02)
[2024-03-01] MEDS: MEROPENEM 1 GM/NS 100 ML 1 GM/100 ML BAG IVPB ×3 (04:56→21:41)
[2024-03-01] MEDS: MIDAZOLAM 100MG/NS 100ML(*CRX) 100 MG/100 ML BAG IV CONT (04:58)
[2024-03-01] MEDS: NOREPINEPHRINE 8 MG/D5W 250 ML 8 MG/250 ML BAG 11.25 MG IV CONT (05:00)
[2024-03-01] MEDS: HYDROCORTISONE SODIUM SUCCINATE 100 MG/2 ML VIAL IV PUSH ×3 (05:01→21:42)
[2024-03-01] MEDS: CENTRAL LINE FLUSH 10 ML IV PUSH ×3 (05:01→21:42)
[2024-03-01] MEDS: SODIUM CHLORIDE 0.9% IV 1,000 ML 100 ML IV CONT (05:04)
[2024-03-01] MEDS: HEPARIN SOD/D5W 100 UNITS/ML 25,000 UNITS/250 ML BAG 10 UNITS IV CONT (05:05)
[2024-03-01] MEDS: CLINDAMYCIN 900 MG/D5W 50 ML 900 MG/50 ML PIGGYBACK 50 MG IVPB ×3 (05:05→21:40)
[2024-03-01 05:16] LABS: Glucose Point of Care 183 mg/dl (65-105)
[2024-03-01 05:17] LABS: Basophils Absolute Auto 0.1 K/mm3 (0.0-0.1); Basophils Percent Auto 0.2 % (0.2-1.2); Hematocrit 28.3 % (42.0-52.0); Hemoglobin 8.9 g/dL (14.0-18.0); Immature Granulocyte Absolute 0.41 K/mm3 (0.00-0.031); Immature Granulocyte Percent A 1.9 % (0-0.5); Lymphocytes Absolute Auto 1.06 K/mm3 (0.9-3.2); Lymphocytes Percent Auto 4.8 % (18.3-44.2); Mean Corpuscular HGB Conc 31.4 g/dl (32-36); Mean Corpuscular Hemoglobin 27.2 pg (26-34); Mean Corpuscular Volume 86.5 fl (80-100); Mean Platelet Volume 8.9 fl (7.4-10.4); Monocytes Percent Auto 4.4 % (2.6-8.5); Neutrophils Absolute Auto 19.6 K/mm3 (1.3-6.7); Neutrophils Percent Auto 88.7 % (45.5-73.1); Platelet Count Result 445 k/mm3 (150-375); Red Blood Count 3.27 M/mm3 (4.6-6.20); Red Cell Distribution Width 15.2 % (11.5-14.5); White Blood Count 22.1 K/mm3 (4.5-10.0)
[2024-03-01 05:28] LABS: INR 1.5; Prothrombin Time 18.8 Seconds (11.1-14.7)
[2024-03-01 05:30] LABS: Partial Thromboplastin Time 74.5 Seconds (22.3-36.8)
[2024-03-01 05:36] LABS: Anisocytosis 1+; Burr Cells 1+; Hypochromasia 1+; Platelet Estimate Increased (Adequate); Schistocytes None Seen
[2024-03-01 05:37] LABS: Lactic Acid Reflex 1.6 mmol/L (0.7-2.0)
[2024-03-01 05:39] LABS: Alveolar/Arterial O2 Gradient 162.6 mmHg; Base Excess ABG -5.4 mEq/l (+/-2.0); Carboxyhemoglobin 1.2 % THb (0-2.0); Fractional Inspired Oxygen 40 %; HCO3 ABG 18.1 mEq/l (22.0-26.0); Methemoglobin ABG 0.3 %THb (0-1.5); Oxygen Content ABG 14.7 %vol (16.0-22.0); Oxygen Saturation ABG 97.1 % (95.0-100.0); PCO2 ABG 28.8 mmHg (35.0-45.0); PO2 ABG 89.5 mmHg (80.0-100.0); PO2 FiO2 Ratio Arterial Blood 2.24 %; Reduced Hemoglobin 2.5 %THb (0-5.0); Total Hemoglobin 10.8 g/dL (12.0-18.0); pH ABG 7.416 (7.350-7.450)
[2024-03-01 05:44] LABS: Device VENTILATOR; Modified Allen's Test Pass; Site Drawn RIGHT RADIAL
[2024-03-01 05:45] LABS: Arterial Blood Gas PEEP 8 cmH2O; Arterial Blood Gas Tidal Volume 450 ml; Arterial Blood Gas Vent Mode CMV; Arterial Blood Gas Ventilator rate 24 /MIN
[2024-03-01 05:50] LABS: Alanine Aminotransferase 20 U/L (6-50); Albumin Level 2.5 g/dL (3.5-5.1); Alkaline Phosphatase 109 U/L (38-126); Anion Gap 8 mmol/L (4-12); Aspartate Amino Transferase 49 U/L (17-59); Bilirubin,Total 0.3 mg/dL (0.2-1.3); Blood Urea Nitrogen 22 mg/dL (9-20); Carbon Dioxide 20 mmol/L (22-30); Chloride 105 mmol/L (98-107); Estimated CRCL calculation 67 ml/min; Estimated Glomerular Filt Rate > 60; Glucose 207 mg/dL (65-110); Magnesium 2.2 mg/dL (1.6-2.3); Potassium 4.4 mmol/L (3.4-5.0); Sodium 133 mmol/L (137-145)
[2024-03-01 06:28] LABS: CRP 20.2 mg/dL (<1.0)
[2024-03-01 07:31] LABS: Vancomycin Trough 15.3 ug/mL (10.0-20.0)
[2024-03-01] MEDS: ALBUMIN HUMAN 25% 25 GM/100 ML 100 ML IVPB ×3 (07:54→18:15)
[2024-03-01] MEDS: VANCOMYCIN 1,500 MG/NS 500 ML 1,500 MG/500 ML BAG 250 MG IVPB (07:54)
[2024-03-01] MEDS: MINERAL OIL/WHITE PETROLATUM OINTMENT 1 APPLIC EACH EYE ×2 (07:55→21:41)
[2024-03-01] MEDS: ATORVASTATIN 40 MG TABLET 80 MG PO (07:55)
[2024-03-01] MEDS: PANTOPRAZOLE SODIUM IV 40 MG VIAL IV PUSH (07:55)
[2024-03-01] MEDS: ASPIRIN 81 MG CHEWABLE TABLET PO (07:55)
--- NOTE | 2024-03-01 08:44 | P.PNIM_ITS ---
Progress Note: A&P Assessment and Plan (1) Septic shock: Code(s): A41.9 - Sepsis, unspecified organism; R65.21 - Severe sepsis with septic shock Status: Acute (2) NSTEMI (non-ST elevated myocardial infarction): Code(s): I21.4 - Non-ST elevation (NSTEMI) myocardial infarction Status: Acute (3) Cardiac arrest: Code(s): I46.9 - Cardiac arrest, cause unspecified Status: Acute Plan 68 year old male past medical history of alcohol abuse, COPD, peripheral neur opathy, peripheral vascular disease, type 2 diabetes presented the ED on 02/28/2024 via EMS for gangrenous right foot infection with cellulitis. The right foot ganglion has had drainage and malodorous.CTA of the left lower extremity showed total occlusion of the right anterior and posterior tibial arteries and right peroneal artery with distal reconstitution. Moderate stenosis of the right popliteal artery and osteomyelitis involving the 1st proximal and distal phalanges and head of the 1st metatarsal. He was started on cefepime, metronidazole and vancomycin, surgery was consulted and offered [id number] amputation. He was admitted to the medical floor, after arriving to the medical floor a got tachycardic in the 150s and was having difficulty breathing. His O2 sats were 83% on room air was placed supplemental oxygen. He guarded to use the commode, dropped his O2 sats again the low 80s, was diaphoretic, was less responsive and a rapid response was called which was converted to a code blue. Patient was in PEA, was intubated by ER physician, central line was inserted and was started on Levophed. Patient was given 2 L IV fluid bolus and transferred to the ICU for further management. 1. Cardiac arrest: Patient intubated sedated and on pressor support Unclear etiology at the moment 2. Septic shock: on pressor support patient has been adequately fluid-resuscitated Started on stress dose steroids Has been started on vancomycin, meropenem, clindamycin 3. NSTEMI: Increasing troponins Appreciate cardiology help EKG showed sinus rhythm with T-wave changes in V1 to V5 -currently on heparin infusion for NSTEMI -will add aspirin and high-dose a statin -will hold Brilinta -will also hold beta-brayden, losartan which is home med, since he is hypotensive on vasopressors 4. Gangrene of right foot: CTA showed peripheral arterial disease with total occlusion of the right anterior and posterior tibial arteries and right peroneal artery with distal reconstitution of peroneal artery. This extensive gangrene of the right foot with gas seen on CT of the foot. planed below-knee amputation on 02/29/2024 but given his cardiac arrest, NSTEMI and on pressors this has been deferred. Continue with antibiotic as mentioned above will do right below-knee amputation when patient further recovered from cardiac arrest. 5. Type 2 diabetes mellitus: Currently on sliding scale insulin with Accu-Cheks 6. Due to prophylaxis: On heparin drip 7. Code status: Full 8. Disposition: Pending improvement, continues to be in ICU Subjective Date/time seen: 03/01/24 08:44 Interval history: Patient is on mechanical ventilation, on sedation with fentanyl and Versed, titrate down Levophed pain, afebrile, labs reviewed Exam Narrative: General: Patient intubated and sedated no acute distress HEENT:, clear sclera Neck:? supple Respiratory:? Coarse breath sounds bilaterally, decreased at bases, adequate air entry Cardiac:? S1-S2 normal, regular rate and rhythm Abdomen:? Soft, nontender, nondistended, hypoactive bowel sounds Extremities:? Gangrenous right 1st toe down to the 1st metatarsal, erythema and swelling of the right foot. Posterior tibial and pedal pulses are not palpable Neuro:? Patient is intubated, sedated, able to open eyess Skin:? Patient has maceration of his perianal area, and states to pressure ulcer on his buttocks. Psych:? Unable to assess Objective Data Vital Signs Vital Signs: Vital Signs - 24 hr 02/29/24 10:00 02/29/24 11:05 02/29/24 11:06 Temperature 97.6 F Pulse Rate 74 76 76 Respiratory Rate 21 H Blood Pressure 109/64 111/58 L 111/58 L Pulse Oximetry 98 Oxygen Delivery Fraction of Inspired Oxygen 02/29/24 10:45 02/29/24 12:00 02/29/24 12:00 Temperature Pulse Rate 76 76 Respiratory Rate 24 H Blood Pressure Pulse Oximetry 100 99 Oxygen Delivery Mechanical Ventilation Mechanical Ventilation Fraction of Inspired Oxygen 40 40 50 02/29/24 12:00 02/29/24 12:00 02/29/24 13:43 Temperature 97.6 F Pulse Rate 73 73 74 Respiratory Rate 24 H Blood Pressure 110/62 Pulse Oximetry 100 100 Oxygen Delivery Mechanical Ventilation Fraction of Inspired Oxygen 40 02/29/24 10:00 02/29/24 12:00 02/29/24 10:00 Temperature Pulse Rate 78 76 78 Respiratory Rate 24 H 24 H Blood Pressure 103/57 L Pulse Oximetry Oxygen Delivery Fraction of Inspired Oxygen 02/29/24 12:00 02/29/24 13:45 02/29/24 10:00 Temperature Pulse Rate 69 73 75 Respiratory Rate 24 H Blood Pressure 110/60 119/67 Pulse Oximetry Oxygen Delivery Fraction of Inspired Oxygen 02/29/24 12:00 02/29/24 14:00 02/29/24 14:00 Temperature 97.8 F Pulse Rate 69 72 75 Respiratory Rate 24 H 24 H Blood Pressure 123/69 133/66 Pulse Oximetry 100 Oxygen Delivery Fraction of Inspired Oxygen 02/29/24 14:00 02/29/24 14:00 02/29/24 14:05 Temperature Pulse Rate 78 78 78 Respiratory Rate 24 H 24 H 24 H Blood Pressure Pulse Oximetry Oxygen Delivery Fraction of Inspired Oxygen 02/29/24 14:45 02/29/24 14:50 02/29/24 15:47 Temperature Pulse Rate 77 78 80 Respiratory Rate 25 H Blood Pressure 123/69 127/71 Pulse Oximetry Oxygen Delivery Fraction of Inspired Oxygen 02/29/24 16:21 02/29/24 16:00 02/29/24 16:00 Temperature Pulse Rate 88 85 Respiratory Rate Blood Pressure 117/61 Pulse Oximetry Oxygen Delivery Fraction of Inspired Oxygen 40 02/29/24 16:00 02/29/24 16:00 02/29/24 17:16 Temperature 97.9 F Pulse Rate 85 85 83 Respiratory Rate 24 H 24 H Blood Pressure 114/55 L Pulse Oximetry 99 99 100 Oxygen Delivery Mechanical Ventilation Mechanical Ventilation Fraction of Inspired Oxygen 40 40 02/29/24 18:00 02/29/24 18:15 02/29/24 18:47 Temperature 97.8 F Pulse Rate 79 81 76 Respiratory Rate 22 H 24 H Blood Pressure 112/58 L 119/58 L Pulse Oximetry 99 Oxygen Delivery Fraction of Inspired Oxygen 02/29/24 18:47 02/29/24 18:45 02/29/24 16:00 Temperature Pulse Rate 76 75 78 Respiratory Rate 24 H Blood Pressure 111/58 L Pulse Oximetry Oxygen Delivery Fraction of Inspired Oxygen 02/29/24 18:00 02/29/24 16:00 02/29/24 18:00 Temperature Pulse Rate 79 79 78 Respiratory Rate 24 H 24 H Blood Pressure Pulse Oximetry Oxygen Delivery Fraction of Inspired Oxygen 02/29/24 16:00 02/29/24 18:00 02/29/24 20:30 Temperature Pulse Rate 78 79 87 Respiratory Rate 24 H 24 H Blood Pressure Pulse Oximetry 99 Oxygen Delivery Mechanical Ventilation Fraction of Inspired Oxygen 40 02/29/24 20:31 02/29/24 20:00 02/29/24 20:00 Temperature Pulse Rate 87 73 72 Respiratory Rate 26 H 24 H Blood Pressure 107/57 L Pulse Oximetry Oxygen Delivery Fraction of Inspired Oxygen 02/29/24 20:00 02/29/24 20:00 02/29/24 20:45 Temperature Pulse Rate 73 74 87 Respiratory Rate 24 H 26 H Blood Pressure Pulse Oximetry 99 Oxygen Delivery Mechanical Ventilation Fraction of Inspired Oxygen 40 02/29/24 20:00 02/29/24 20:00 02/29/24 21:35 Temperature 97.5 F L Pulse Rate 74 74 Respiratory Rate 24 H Blood Pressure 107/57 L 117/60 Pulse Oximetry 99 Oxygen Delivery Fraction of Inspired Oxygen 40 02/29/24 21:30 02/29/24 21:45 02/29/24 22:00 Temperature 97.3 F L 97.3 F L 97.2 F L Pulse Rate 74 76 75 Respiratory Rate 24 H 24 H 24 H Blood Pressure 117/60 108/52 L 105/56 L Pulse Oximetry 100 100 99 Oxygen Delivery Fraction of Inspired Oxygen 02/29/24 22:00 02/29/24 22:00 02/29/24 23:35 Temperature Pulse Rate 74 74 74 Respiratory Rate 24 H 24 H Blood Pressure 106/71 Pulse Oximetry Oxygen Delivery Fraction of Inspired Oxygen 02/29/24 23:30 02/29/24 23:45 02/29/24 23:54 Temperature 97 F L 97 F L Pulse Rate 73 72 72 Respiratory Rate 24 H 24 H 24 H Blood Pressure 106/71 102/51 L Pulse Oximetry 100 100 100 Oxygen Delivery Mechanical Ventilation Fraction of Inspired Oxygen 40 03/01/24 00:00 03/01/24 00:00 03/01/24 00:00 Temperature 97 F L Pulse Rate 74 74 Respiratory Rate 100 H Blood Pressure 105/53 L 105/53 L Pulse Oximetry 24 L Oxygen Delivery Fraction of Inspired Oxygen 40 03/01/24 00:00 03/01/24 00:00 03/01/24 00:00 Temperature Pulse Rate 75 75 75 Respiratory Rate 24 H 24 H Blood Pressure Pulse Oximetry Oxygen Delivery Fraction of Inspired Oxygen 03/01/24 01:26 03/01/24 01:15 02/29/24 23:20 Temperature 96.9 F L Pulse Rate 67 69 73 Respiratory Rate 24 H Blood Pressure 117/57 L 117/57 L Pulse Oximetry 100 100 Oxygen Delivery Mechanical Ventilation Fraction of Inspired Oxygen 40 02/29/24 20:41 03/01/24 01:30 03/01/24 02:00 Temperature 96.9 F L 96.9 F L Pulse Rate 89 66 70 Respiratory Rate 26 H 24 H 24 H Blood Pressure 102/51 L 99/52 L Pulse Oximetry 100 100 Oxygen Delivery Fraction of Inspired Oxygen 03/01/24 02:00 03/01/24 02:00 03/01/24 02:00 Temperature Pulse Rate 70 70 67 Respiratory Rate 24 H 24 H Blood Pressure 99/52 L Pulse Oximetry Oxygen Delivery Fraction of Inspired Oxygen 03/01/24 02:35 03/01/24 02:35 03/01/24 02:45 Temperature Pulse Rate 67 67 68 Respiratory Rate 24 H 24 H Blood Pressure Pulse Oximetry 100 Oxygen Delivery Mechanical Ventilation Fraction of Inspired Oxygen 40 03/01/24 03:22 03/01/24 04:00 03/01/24 04:00 Temperature Pulse Rate 77 78 78 Respiratory Rate 24 H 24 H 24 H Blood Pressure Pulse Oximetry Oxygen Delivery Fraction of Inspired Oxygen 03/01/24 04:06 03/01/24 04:00 03/01/24 04:00 Temperature 97 F L Pulse Rate 63 63 74 Respiratory Rate 24 H 24 H Blood Pressure 84/41 L 84/41 L Pulse Oximetry 100 100 Oxygen Delivery Mechanical Ventilation Fraction of Inspired Oxygen 40 03/01/24 04:00 03/01/24 04:20 03/01/24 04:16 Temperature 97 F L Pulse Rate 65 65 Respiratory Rate 24 H Blood Pressure 86/40 L 86/40 L Pulse Oximetry 100 Oxygen Delivery Fraction of Inspired Oxygen 40 03/01/24 04:30 03/01/24 04:10 03/01/24 04:00 Temperature 97 F L 97 F L Pulse Rate 57 L 76 67 Respiratory Rate 24 H 24 H Blood Pressure 107/51 L 94/55 L Pulse Oximetry 100 100 Oxygen Delivery Fraction of Inspired Oxygen 03/01/24 04:58 03/01/24 04:58 03/01/24 04:59 Temperature Pulse Rate 57 L 58 L 57 L Respiratory Rate 24 H 24 H Blood Pressure 116/50 L Pulse Oximetry Oxygen Delivery Fraction of Inspired Oxygen 03/01/24 05:00 03/01/24 05:07 03/01/24 05:39 Temperature Pulse Rate 65 60 84 Respiratory Rate 24 H Blood Pressure 116/50 L Pulse Oximetry 100 Oxygen Delivery Mechanical Ventilation Fraction of Inspired Oxygen 40 03/01/24 06:00 03/01/24 06:00 03/01/24 06:00 Temperature 97.4 F L Pulse Rate 63 62 69 Respiratory Rate 24 H 24 H Blood Pressure 116/52 L 116/62 Pulse Oximetry 99 Oxygen Delivery Fraction of Inspired Oxygen 03/01/24 06:03 03/01/24 06:31 03/01/24 06:15 Temperature 97.4 F L Pulse Rate 62 80 91 Respiratory Rate 24 H 24 H Blood Pressure 112/54 L 111/49 L Pulse Oximetry 100 Oxygen Delivery Fraction of Inspired Oxygen 03/01/24 06:30 03/01/24 06:45 03/01/24 07:15 Temperature 97.4 F L 97.5 F L Pulse Rate 80 78 75 Respiratory Rate 24 H 24 H Blood Pressure 112/54 L 102/51 L 108/53 L Pulse Oximetry 100 99 Oxygen Delivery Fraction of Inspired Oxygen 03/01/24 07:47 03/01/24 07:59 Temperature Pulse Rate 77 77 Respiratory Rate 24 H Blood Pressure Pulse Oximetry 98 Oxygen Delivery Mechanical Ventilation Fraction of Inspired Oxygen 40 Intake/Output Intake/Output: Intake & Output 02/27/24 02/28/24 02/29/24 03/01/24 23:59 23:59 23:59 23:59 Intake Total 2144.8 7453.1 1339.7 Output Total 1000 350 Balance 2144.8 6453.1 989.7 Meds/Results Medications: Active Medications Generic Name Dose Route Start Last Admin Trade Name Freq PRN Reason Stop Dose Admin Acetaminophen 500 mg 02/28/24 19:15 Acetaminophen 500 Mg Tablet PO Q6H PRN Pain Rated 1-3 Albuterol/Ipratropium 3 ml 02/29/24 02:00 03/01/24 02:31 Ipratropium 0.5 Mg/Albuterol Sulfate 2.5 Mg Ampul.Neb 3 Ml INHALATION 3 ml Q6HRT JASON Administration Aspirin 81 mg 03/01/24 08:00 03/01/24 07:55 Aspirin 81 Mg Chewable Tablet PO 81 mg DAILY@0800 JASON Administration Atorvastatin Calcium 80 mg 03/01/24 09:00 03/01/24 07:55 Atorvastatin 40 Mg Tablet PO 80 mg DAILY JASON Administration Dextrose 12.5 gm 02/28/24 19:23 Dextrose 50% 25 Gm/50 Ml Syringe IV PUSH PRN PRN Hypoglycemia Protocol Glucagon 1 mg 02/28/24 19:23 Glucagon For Inj 1 Mg Vial IM PRN PRN Hypoglycemia Protocol Glucose 15 gm 02/28/24 19:23 Glucose Oral Gel 15 Gm Of Glucse In 37.5 Gm Tube PO PRN PRN Hypoglycemia Protocol Heparin Sodium (Porcine) 4,000 units 02/29/24 05:31 Heparin Sodium 5,000 Units/Ml Vial IV PUSH PRN PRN aPTT less than 55 seconds Heparin Sodium (Porcine) 3,000 units 02/29/24 05:31 Heparin Sodium 5,000 Units/Ml Vial IV PUSH PRN PRN aPTT 55 - 70 seconds Hydrocortisone Sodium Succinate 100 mg 02/29/24 14:00 03/01/24 05:01 Hydrocortisone Sodium Succinate 100 Mg/2 Ml Vial IV PUSH 100 mg Q8HR JASON Administration Dextrose 1,000 mls @ 100 mls/hr 02/28/24 19:23 Dextrose 5% 1,000 Ml IVPB PRN PRN Hypoglycemia Protocol Fentanyl Citrate 2,500 mcg in 250 mls @ 7.5 mls/hr 02/28/24 21:20 03/01/24 06:00 Fentanyl 2,500 Mcg/Ns 250 Ml IV CONT 100 mcg/hr .[id number] JASON 10 mls/hr Titration Protocol 75 MCG/HR Midazolam HCl 100 mg in 100 mls @ 3 mls/hr 02/28/24 21:20 03/01/24 06:03 Versed 100 Mg/Ns 100 Ml IV CONT 3 mg/hr .[id number] JASON 3 mls/hr Titration Protocol 3 MG/HR Meropenem 1 gm in 100 mls @ 200 mls/hr 02/28/24 22:00 03/01/24 05:26 IVPB Infused Q8H JASON Infusion Clindamycin Phosphate 900 mg in 50 mls @ 50 mls/hr 02/28/24 21:00 03/01/24 05:05 Cleocin 900 Mg/D5w 50 Ml IVPB 50 mls/hr Q8H JASON Administration Norepinephrine Bitartrate 8 mg in 250 mls @ 5.625 mls/hr 02/28/24 23:05 03/01/24 07:15 Levophed 8 Mg/D5w 250 Ml IV CONT 3 mcg/min .Q24H JASON 5.63 mls/hr Titration Protocol 3 MCG/MIN Heparin Sodium/Dextrose 25,000 units in 250 mls @ 10 mls/hr 02/29/24 05:35 03/01/24 05:47 Heparin Sodium/D5w 100 Units/Ml IV CONT 1,000 units/hr .Q24H JASON 10 mls/hr Titration Protocol 1,000 UNITS/HR Vancomycin HCl 1,500 mg in 500 mls @ 250 mls/hr 02/29/24 14:00 03/01/24 07:54 Vancomycin 1,500 Mg/Ns 500 Ml IVPB 250 mls/hr Q18H JASON Administration Albumin Human 100 mls @ 60 mls/hr 03/01/24 07:36 03/01/24 07:54 Albutein IVPB 03/02/24 01:39 60 mls/hr Q6HR JASON Administration Insulin Aspart 3 - 6 units 03/01/24 00:00 03/01/24 05:02 Insulin Aspart (*Bkc) 100 Units/Ml SUB-Q Not Given Q6H JASON Protocol Multi-Ingred Cream/Lotion/Oil/Oint 1 applic 02/29/24 09:00 03/01/24 07:55 Mineral Oil/White Petrolatum Ointment EACH EYE 1 applic Q12HR JASON Administration Naloxone HCl 0.1 mg 02/28/24 19:15 Naloxone Hcl 0.4 Mg/Ml Vial IV PUSH Q2M PRN Opiate Reversal Pantoprazole Sodium 40 mg 02/29/24 09:00 03/01/24 07:55 Pantoprazole Sodium Iv 40 Mg Vial IV PUSH 40 mg QAM JASON Administration Fluticasone/Salmeterol 2 puff 02/29/24 20:00 03/01/24 02:31 Fluticasone/Salmeterol 115-21 Mcg Inhaler 1 Puff INHALATION Not Given Q12HRT JASON Sodium Chloride 10 ml 02/29/24 06:00 03/01/24 05:01 Central Line Flush IV PUSH 10 ml Q8HR JASON Administration Sodium Chloride 20 ml 02/28/24 23:37 Central Line Flush IV PUSH PRN PRN after blood draws Radiology Results: ITS Impressions Lower Extremity CTA 02/28/24 14:54 IMPRESSION: 1. 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 2. Moderate stenosis of right popliteal artery. 3. Osteomyelitis involving first proximal and distal phalanges and head of first metatarsal. Abdomen X-Ray 02/28/24 21:31 IMPRESSION: 1. Nasogastric tube tip beyond the inferior margin of the radiograph, but at least to the distal stomach. Head CT 02/29/24 05:55 Impression: No intracranial hemorrhage, mass, or acute infarct. Stable chronic encephalomalacia in the high left parietal lobe. Atrophy and chronic white matter changes, as above. Chest/Abdomen/Pelvis CTA 02/29/24 06:02 Impression: Extensive right upper lobe consolidation and more mild right middle lobe consolidation, consistent with pneumonia. Consider aspiration pneumonia. Moderate to large right pleural effusion with complete atelectasis of the right lower lobe. Moderate left pleural effusion with minimal left basilar atelectasis. Small pericardial effusion. No definite acute abnormality in the abdomen or pelvis. Chronic compression fractures, as above. Chest X-Ray 03/01/24 06:25 Impression: 1: Persistent bilateral airspace disease, right greater than left. Differential diagnosis includes edema and pneumonia. 2: Small right pleural effusion. Labs Labs: Laboratory Results - last 24 hr 02/29/24 02/29/24 02/29/24 09:18 11:46 11:47 WBC RBC Hgb Hct MCV MCH MCHC RDW Plt Count MPV Immature Gran % (Auto) Neut % (Auto) Lymph % (Auto) [place] % (Auto) Eos % (Auto) Baso % (Auto) Lymph # (Auto) [place] # (Auto) Eos # (Auto) Baso # (Auto) Abs Immat Gran (auto) Absolute Neuts (auto) Absolute Nucleated RBC Nucleated RBC % Platelet Estimate Hypochromasia Anisocytosis [place] Cells Schistocytes PT INR APTT 72.7 H Puncture Site ABG pH ABG pCO2 ABG pO2 ABG PO2/FiO2 Ratio ABG HCO3 ABG O2 Saturation ABG O2 Content ABG Base Excess A-a Gradient Oxyhemoglobin Carboxyhemoglobin Methemoglobin Reduced Hemoglobin Total Hemoglobin O2 Delivery Device O2 Liters/Min Minute Volume Vent Rate Vent Mode FiO2 Tidal Volume PEEP Peak Inspir Pressure Pressure Support Sodium Potassium Chloride Carbon Dioxide Anion Gap BUN Creatinine Estim Creat Clear Calc Estimated GFR Glucose POC Capillary Glucose 183 H 162 H Lactic Acid Calcium Magnesium Total Bilirubin AST ALT Alkaline Phosphatase C-Reactive Protein Total Protein Albumin Vancomycin Trough 02/29/24 02/29/24 02/29/24 13:34 18:19 23:20 WBC RBC Hgb Hct MCV MCH MCHC RDW Plt Count MPV Immature Gran % (Auto) Neut % (Auto) Lymph % (Auto) [place] % (Auto) Eos % (Auto) Baso % (Auto) Lymph # (Auto) [place] # (Auto) Eos # (Auto) Baso # (Auto) Abs Immat Gran (auto) Absolute Neuts (auto) Absolute Nucleated RBC Nucleated RBC % Platelet Estimate Hypochromasia Anisocytosis [place] Cells Schistocytes PT INR APTT 73.2 H Puncture Site ABG pH ABG pCO2 ABG pO2 ABG PO2/FiO2 Ratio ABG HCO3 ABG O2 Saturation ABG O2 Content ABG Base Excess A-a Gradient Oxyhemoglobin Carboxyhemoglobin Methemoglobin Reduced Hemoglobin Total Hemoglobin O2 Delivery Device O2 Liters/Min Minute Volume Vent Rate Vent Mode FiO2 Tidal Volume PEEP Peak Inspir Pressure Pressure Support Sodium Potassium Chloride Carbon Dioxide Anion Gap BUN Creatinine Estim Creat Clear Calc Estimated GFR Glucose POC Capillary Glucose 157 H 201 H Lactic Acid Calcium Magnesium Total Bilirubin AST ALT Alkaline Phosphatase C-Reactive Protein Total Protein Albumin Vancomycin Trough 03/01/24 03/01/24 03/01/24 04:56 05:06 05:09 WBC 22.1 H RBC 3.27 L Hgb 8.9 L Hct 28.3 L MCV 86.5 MCH 27.2 MCHC 31.4 L RDW 15.2 H Plt Count 445 H MPV 8.9 Immature Gran % (Auto) 1.9 H Neut % (Auto) 88.7 H Lymph % (Auto) 4.8 L [place] % (Auto) 4.4 Eos % (Auto) 0.0 Baso % (Auto) 0.2 Lymph # (Auto) 1.06 [place] # (Auto) 1.0 H Eos # (Auto) 0.0 Baso # (Auto) 0.1 Abs Immat Gran (auto) 0.41 H Absolute Neuts (auto) 19.6 H Absolute Nucleated RBC 0.000 Nucleated RBC % 0.0 Platelet Estimate Increased Hypochromasia 1+ Anisocytosis 1+ [place] Cells 1+ Schistocytes None seen PT INR APTT Puncture Site Right radial ABG pH 7.416 ABG pCO2 28.8 L ABG pO2 89.5 ABG PO2/FiO2 Ratio 2.24 ABG HCO3 18.1 L ABG O2 Saturation 97.1 ABG O2 Content 14.7 L ABG Base Excess -5.4 A-a Gradient 162.6 Oxyhemoglobin 96.0 Carboxyhemoglobin 1.2 Methemoglobin 0.3 Reduced Hemoglobin 2.5 Total Hemoglobin 10.8 L O2 Delivery Device Ventilator O2 Liters/Min Not Reportable Minute Volume Not Reportable Vent Rate 24 Vent Mode Cmv FiO2 40 Tidal Volume 450 PEEP 8 Peak Inspir Pressure Not Reportable Pressure Support Not Reportable Sodium Potassium Chloride Carbon Dioxide Anion Gap BUN Creatinine Estim Creat Clear Calc Estimated GFR Glucose POC Capillary Glucose 183 H Lactic Acid 1.6 Calcium Magnesium Total Bilirubin AST ALT Alkaline Phosphatase C-Reactive Protein Total Protein Albumin Vancomycin Trough 03/01/24 03/01/24 05:10 06:45 WBC RBC Hgb Hct MCV MCH MCHC RDW Plt Count MPV Immature Gran % (Auto) Neut % (Auto) Lymph % (Auto) [place] % (Auto) Eos % (Auto) Baso % (Auto) Lymph # (Auto) [place] # (Auto) Eos # (Auto) Baso # (Auto) Abs Immat Gran (auto) Absolute Neuts (auto) Absolute Nucleated RBC Nucleated RBC % Platelet Estimate Hypochromasia Anisocytosis [place] Cells Schistocytes PT 18.8 H INR 1.5 APTT 74.5 H Puncture Site ABG pH ABG pCO2 ABG pO2 ABG PO2/FiO2 Ratio ABG HCO3 ABG O2 Saturation ABG O2 Content ABG Base Excess A-a Gradient Oxyhemoglobin Carboxyhemoglobin Methemoglobin Reduced Hemoglobin Total Hemoglobin O2 Delivery Device O2 Liters/Min Minute Volume Vent Rate Vent Mode FiO2 Tidal Volume PEEP Peak Inspir Pressure Pressure Support Sodium 133 L Potassium 4.4 Chloride 105 Carbon Dioxide 20 L Anion Gap 8 BUN 22 H Creatinine 1.10 Estim Creat Clear Calc 67 Estimated GFR > 60 Glucose 207 H POC Capillary Glucose Lactic Acid Calcium 7.0 L Magnesium 2.2 Total Bilirubin 0.3 AST 49 ALT 20 Alkaline Phosphatase 109 C-Reactive Protein 20.2 H Total Protein 6.0 L Albumin 2.5 L Vancomycin Trough 15.3
--- NOTE | 2024-03-01 10:43 | PM.PNCARD ---
Progress Note: A&P Assessment and Plan (1) NSTEMI (non-ST elevated myocardial infarction): Code(s): I21.4 - Non-ST elevation (NSTEMI) myocardial infarction Status: Acute Plan 68-year-old man known to have multivessel coronary disease emergency PCI to the right coronary artery several years ago as detailed in the chart. He presents to the hospital with gangrene of the right lower extremity and appears to have had an aspiration/PA arrest. In this setting he has had a moderate troponin rise which is of course not unexpected. He is on aspirin, heparinized and statin therapy. Will probably keep him anticoagulated for least another [address] Alvarez that the patient did not require urgent catheterization and he is a very poor/questionable candidate for intervention/revascularization given his history of noncompliance to follow-up. Once he is medically more stable we will start medical therapy for his mildly reduced ejection fraction. The patient clearly requires amputation of his right lower extremity for optimal control of his sepsis/shock. Amputation of the lower extremity is NOT a significant cardiac stress procedure and could even be done while he is intubated on ventilator support early next week. Gabriel Eason MD [facility] Subjective Date/time seen: Date of service: 03/01/24 10:43 Interval history: Follow-up visit in this 68-year-old man with: Episode of PE a arrest working diagnosis is aspiration event resulting in arrest and type 2 myocardial infarction. Patient has known history of coronary artery disease with emergency RCA intervention being performed in 2020 in the setting of acute ST-elevation MS. patient did have significant stenosis in a couple of marginal branches of the circumflex artery according to the chart at that time. He was not compliant with follow-up of his coronary disease in the office has had not been seen since that intervention. Patient is now intubated in the ICU sedated and of course unresponsive. Patient was admitted to the hospital because of significant peripheral vascular disease resulting in gangrene of the right foot and was anticipating and was scheduled for [id number] amputation prior to experiencing the above-described arrest Exam Const: Other: Unkempt white male appearing considerably older than his stated age intubated sedated on mechanical ventilator support HENMT: Mouth: Yes moist mucous membranes Eyes: Sclera: sclerae normal Neck: Neck: supple and no JVD Resp: Other: Breath sounds are relatively clear with anterior auscultation with patient on the ventilator Cardio: Rate: regular rate Rhythm: regular rhythm Other: No apparent murmur or gallop GI: GI Palp: Yes Soft to palpation Urinary Catheter: Urinary Catheter: patent and draining Skin: General skin exam: normal color Neuro: Other: Sedated on the ventilator Extrem: Other: Right foot is wrapped in gauze not on wrapped for examination, no peripheral edema Objective Data Vital Signs Vital Signs: Vital Signs - 24 hr 02/29/24 11:05 02/29/24 11:06 02/29/24 10:45 Temperature Pulse Rate 76 76 76 Respiratory Rate Blood Pressure 111/58 L 111/58 L Pulse Oximetry 100 Oxygen Delivery Mechanical Ventilation Fraction of Inspired Oxygen 40 02/29/24 12:00 02/29/24 12:00 02/29/24 12:00 Temperature Pulse Rate 76 73 Respiratory Rate 24 H Blood Pressure Pulse Oximetry 99 Oxygen Delivery Mechanical Ventilation Fraction of Inspired Oxygen 40 50 02/29/24 12:00 02/29/24 13:43 02/29/24 12:00 Temperature 36.4 C Pulse Rate 73 74 76 Respiratory Rate 24 H 24 H Blood Pressure 110/62 Pulse Oximetry 100 100 Oxygen Delivery Mechanical Ventilation Fraction of Inspired Oxygen 40 02/29/24 12:00 02/29/24 13:45 02/29/24 12:00 Temperature Pulse Rate 69 73 69 Respiratory Rate 24 H Blood Pressure 110/60 119/67 Pulse Oximetry Oxygen Delivery Fraction of Inspired Oxygen 02/29/24 14:00 02/29/24 14:00 02/29/24 14:00 Temperature 36.6 C Pulse Rate 72 75 78 Respiratory Rate 24 H 24 H Blood Pressure 123/69 133/66 Pulse Oximetry 100 Oxygen Delivery Fraction of Inspired Oxygen 02/29/24 14:00 02/29/24 14:05 02/29/24 14:45 Temperature Pulse Rate 78 78 77 Respiratory Rate 24 H 24 H Blood Pressure 123/69 Pulse Oximetry Oxygen Delivery Fraction of Inspired Oxygen 02/29/24 14:50 02/29/24 15:47 02/29/24 16:21 Temperature Pulse Rate 78 80 88 Respiratory Rate 25 H Blood Pressure 127/71 117/61 Pulse Oximetry Oxygen Delivery Fraction of Inspired Oxygen 02/29/24 16:00 02/29/24 16:00 02/29/24 16:00 Temperature 36.6 C Pulse Rate 85 85 Respiratory Rate 24 H Blood Pressure 114/55 L Pulse Oximetry 99 Oxygen Delivery Fraction of Inspired Oxygen 40 02/29/24 16:00 02/29/24 17:16 02/29/24 18:00 Temperature 36.6 C Pulse Rate 85 83 79 Respiratory Rate 24 H 22 H Blood Pressure 112/58 L Pulse Oximetry 99 100 99 Oxygen Delivery Mechanical Ventilation Mechanical Ventilation Fraction of Inspired Oxygen 40 40 02/29/24 18:15 02/29/24 18:47 02/29/24 18:47 Temperature Pulse Rate 81 76 76 Respiratory Rate 24 H 24 H Blood Pressure 119/58 L Pulse Oximetry Oxygen Delivery Fraction of Inspired Oxygen 02/29/24 18:45 02/29/24 16:00 02/29/24 18:00 Temperature Pulse Rate 75 78 79 Respiratory Rate Blood Pressure 111/58 L Pulse Oximetry Oxygen Delivery Fraction of Inspired Oxygen 02/29/24 16:00 02/29/24 18:00 02/29/24 16:00 Temperature Pulse Rate 79 78 78 Respiratory Rate 24 H 24 H 24 H Blood Pressure Pulse Oximetry Oxygen Delivery Fraction of Inspired Oxygen 02/29/24 18:00 02/29/24 20:30 02/29/24 20:31 Temperature Pulse Rate 79 87 87 Respiratory Rate 24 H 26 H Blood Pressure Pulse Oximetry 99 Oxygen Delivery Mechanical Ventilation Fraction of Inspired Oxygen 40 02/29/24 20:00 02/29/24 20:00 02/29/24 20:00 Temperature Pulse Rate 73 72 73 Respiratory Rate 24 H 24 H Blood Pressure 107/57 L Pulse Oximetry Oxygen Delivery Fraction of Inspired Oxygen 02/29/24 20:00 02/29/24 20:45 02/29/24 20:00 Temperature Pulse Rate 74 87 Respiratory Rate 26 H Blood Pressure Pulse Oximetry 99 Oxygen Delivery Mechanical Ventilation Fraction of Inspired Oxygen 40 40 02/29/24 20:00 02/29/24 21:35 02/29/24 21:30 Temperature 36.4 C L 36.3 C L Pulse Rate 74 74 74 Respiratory Rate 24 H 24 H Blood Pressure 107/57 L 117/60 117/60 Pulse Oximetry 99 100 Oxygen Delivery Fraction of Inspired Oxygen 02/29/24 21:45 02/29/24 22:00 02/29/24 22:00 Temperature 36.3 C L 36.2 C L Pulse Rate 76 75 74 Respiratory Rate 24 H 24 H 24 H Blood Pressure 108/52 L 105/56 L Pulse Oximetry 100 99 Oxygen Delivery Fraction of Inspired Oxygen 02/29/24 22:00 02/29/24 23:35 02/29/24 23:30 Temperature 36.1 C L Pulse Rate 74 74 73 Respiratory Rate 24 H 24 H Blood Pressure 106/71 106/71 Pulse Oximetry 100 Oxygen Delivery Fraction of Inspired Oxygen 02/29/24 23:45 02/29/24 23:54 03/01/24 00:00 Temperature 36.1 C L Pulse Rate 72 72 Respiratory Rate 24 H 24 H Blood Pressure 102/51 L Pulse Oximetry 100 100 Oxygen Delivery Mechanical Ventilation Fraction of Inspired Oxygen 40 40 03/01/24 00:00 03/01/24 00:00 03/01/24 00:00 Temperature 36.1 C L Pulse Rate 74 74 75 Respiratory Rate 100 H 24 H Blood Pressure 105/53 L 105/53 L Pulse Oximetry 24 L Oxygen Delivery Fraction of Inspired Oxygen 03/01/24 00:00 03/01/24 00:00 03/01/24 01:26 Temperature Pulse Rate 75 75 67 Respiratory Rate 24 H Blood Pressure 117/57 L Pulse Oximetry Oxygen Delivery Fraction of Inspired Oxygen 03/01/24 01:15 02/29/24 23:20 02/29/24 20:41 Temperature 36.1 C L Pulse Rate 69 73 89 Respiratory Rate 24 H 26 H Blood Pressure 117/57 L Pulse Oximetry 100 100 Oxygen Delivery Mechanical Ventilation Fraction of Inspired Oxygen 40 03/01/24 01:30 03/01/24 02:00 03/01/24 02:00 Temperature 36.1 C L 36.1 C L Pulse Rate 66 70 70 Respiratory Rate 24 H 24 H Blood Pressure 102/51 L 99/52 L 99/52 L Pulse Oximetry 100 100 Oxygen Delivery Fraction of Inspired Oxygen 03/01/24 02:00 03/01/24 02:00 03/01/24 02:35 Temperature Pulse Rate 70 67 67 Respiratory Rate 24 H 24 H Blood Pressure Pulse Oximetry 100 Oxygen Delivery Mechanical Ventilation Fraction of Inspired Oxygen 40 03/01/24 02:35 03/01/24 02:45 03/01/24 03:22 Temperature Pulse Rate 67 68 77 Respiratory Rate 24 H 24 H 24 H Blood Pressure Pulse Oximetry Oxygen Delivery Fraction of Inspired Oxygen 03/01/24 04:00 03/01/24 04:00 03/01/24 04:06 Temperature Pulse Rate 78 78 63 Respiratory Rate 24 H 24 H Blood Pressure 84/41 L Pulse Oximetry Oxygen Delivery Fraction of Inspired Oxygen 03/01/24 04:00 03/01/24 04:00 03/01/24 04:00 Temperature 36.1 C L Pulse Rate 63 74 Respiratory Rate 24 H 24 H Blood Pressure 84/41 L Pulse Oximetry 100 100 Oxygen Delivery Mechanical Ventilation Fraction of Inspired Oxygen 40 40 03/01/24 04:20 03/01/24 04:16 03/01/24 04:30 Temperature 36.1 C L 36.1 C L Pulse Rate 65 65 57 L Respiratory Rate 24 H 24 H Blood Pressure 86/40 L 86/40 L 107/51 L Pulse Oximetry 100 100 Oxygen Delivery Fraction of Inspired Oxygen 03/01/24 04:10 03/01/24 04:00 03/01/24 04:58 Temperature 36.1 C L Pulse Rate 76 67 57 L Respiratory Rate 24 H 24 H Blood Pressure 94/55 L Pulse Oximetry 100 Oxygen Delivery Fraction of Inspired Oxygen 03/01/24 04:58 03/01/24 04:59 03/01/24 05:00 Temperature Pulse Rate 58 L 57 L 65 Respiratory Rate 24 H Blood Pressure 116/50 L 116/50 L Pulse Oximetry Oxygen Delivery Fraction of Inspired Oxygen 03/01/24 05:07 03/01/24 05:39 03/01/24 06:00 Temperature 36.3 C L Pulse Rate 60 84 63 Respiratory Rate 24 H 24 H Blood Pressure 116/52 L Pulse Oximetry 100 99 Oxygen Delivery Mechanical Ventilation Fraction of Inspired Oxygen 40 03/01/24 06:00 03/01/24 06:00 03/01/24 06:03 Temperature Pulse Rate 62 69 62 Respiratory Rate 24 H 24 H Blood Pressure 116/62 Pulse Oximetry Oxygen Delivery Fraction of Inspired Oxygen 03/01/24 06:31 03/01/24 06:15 03/01/24 06:30 Temperature 36.3 C L 36.3 C L Pulse Rate 80 91 80 Respiratory Rate 24 H 24 H Blood Pressure 112/54 L 111/49 L 112/54 L Pulse Oximetry 100 100 Oxygen Delivery Fraction of Inspired Oxygen 03/01/24 06:45 03/01/24 07:15 03/01/24 07:47 Temperature 36.4 C L Pulse Rate 78 75 77 Respiratory Rate 24 H 24 H Blood Pressure 102/51 L 108/53 L Pulse Oximetry 99 Oxygen Delivery Fraction of Inspired Oxygen 03/01/24 07:59 03/01/24 08:00 03/01/24 08:00 Temperature Pulse Rate 77 81 82 Respiratory Rate 24 H 24 H Blood Pressure Pulse Oximetry 98 Oxygen Delivery Mechanical Ventilation Fraction of Inspired Oxygen 40 03/01/24 08:00 03/01/24 09:10 03/01/24 09:15 Temperature Pulse Rate 81 82 77 Respiratory Rate Blood Pressure 97/49 L 94/48 L 105/49 L Pulse Oximetry Oxygen Delivery Fraction of Inspired Oxygen 03/01/24 08:00 03/01/24 08:00 03/01/24 08:00 Temperature Pulse Rate 81 85 Respiratory Rate 24 H Blood Pressure Pulse Oximetry 98 Oxygen Delivery Mechanical Ventilation Fraction of Inspired Oxygen 30 30 03/01/24 08:00 03/01/24 09:45 03/01/24 09:30 Temperature 36.6 C Pulse Rate 85 83 83 Respiratory Rate 19 24 H 24 H Blood Pressure 97/49 L Pulse Oximetry 99 Oxygen Delivery Fraction of Inspired Oxygen 03/01/24 10:00 Temperature 36.8 C Pulse Rate 80 Respiratory Rate 24 H Blood Pressure 111/50 L Pulse Oximetry 97 Oxygen Delivery Fraction of Inspired Oxygen Intake/Output Intake/Output: Intake & Output 02/27/24 02/28/24 02/29/24 03/01/24 23:59 23:59 23:59 23:59 Intake Total 2144.8 7453.1 1515.3 Output Total 1000 350 Balance 2144.8 6453.1 1165.3 Meds/Results Medications: Active Medications Generic Name Dose Route Start Last Admin Trade Name Freq PRN Reason Stop Dose Admin Acetaminophen 500 mg 02/28/24 19:15 Acetaminophen 500 Mg Tablet PO Q6H PRN Pain Rated 1-3 Albuterol/Ipratropium 3 ml 02/29/24 02:00 03/01/24 02:31 Ipratropium 0.5 Mg/Albuterol Sulfate 2.5 Mg Ampul.Neb 3 Ml INHALATION 3 ml Q6HRT JASON Administration Aspirin 81 mg 03/01/24 08:00 03/01/24 07:55 Aspirin 81 Mg Chewable Tablet PO 81 mg DAILY@0800 JASON Administration Atorvastatin Calcium 80 mg 03/01/24 09:00 03/01/24 07:55 Atorvastatin 40 Mg Tablet PO 80 mg DAILY JASON Administration Dextrose 12.5 gm 02/28/24 19:23 Dextrose 50% 25 Gm/50 Ml Syringe IV PUSH PRN PRN Hypoglycemia Protocol Glucagon 1 mg 02/28/24 19:23 Glucagon For Inj 1 Mg Vial IM PRN PRN Hypoglycemia Protocol Glucose 15 gm 02/28/24 19:23 Glucose Oral Gel 15 Gm Of Glucse In 37.5 Gm Tube PO PRN PRN Hypoglycemia Protocol Heparin Sodium (Porcine) 4,000 units 02/29/24 05:31 Heparin Sodium 5,000 Units/Ml Vial IV PUSH PRN PRN aPTT less than 55 seconds Heparin Sodium (Porcine) 3,000 units 02/29/24 05:31 Heparin Sodium 5,000 Units/Ml Vial IV PUSH PRN PRN aPTT 55 - 70 seconds Hydrocortisone Sodium Succinate 100 mg 02/29/24 14:00 03/01/24 05:01 Hydrocortisone Sodium Succinate 100 Mg/2 Ml Vial IV PUSH 100 mg Q8HR JASON Administration Dextrose 1,000 mls @ 100 mls/hr 02/28/24 19:23 Dextrose 5% 1,000 Ml IVPB PRN PRN Hypoglycemia Protocol Fentanyl Citrate 2,500 mcg in 250 mls @ 10 mls/hr 02/28/24 21:20 03/01/24 09:45 Fentanyl 2,500 Mcg/Ns 250 Ml IV CONT 100 mcg/hr .Q25H JASON 10 mls/hr Titration Protocol 100 MCG/HR Midazolam HCl 100 mg in 100 mls @ 3 mls/hr 02/28/24 21:20 03/01/24 09:30 Versed 100 Mg/Ns 100 Ml IV CONT 3 mg/hr .[id number] JASON 3 mls/hr Titration Protocol 3 MG/HR Meropenem 1 gm in 100 mls @ 200 mls/hr 02/28/24 22:00 03/01/24 05:26 IVPB Infused Q8H JASON Infusion Clindamycin Phosphate 900 mg in 50 mls @ 50 mls/hr 02/28/24 21:00 03/01/24 05:05 Cleocin 900 Mg/D5w 50 Ml IVPB 50 mls/hr Q8H JASON Administration Norepinephrine Bitartrate 8 mg in 250 mls @ 5.625 mls/hr 02/28/24 23:05 03/01/24 09:15 Levophed 8 Mg/D5w 250 Ml IV CONT 4 mcg/min .Q24H JASON 7.5 mls/hr Titration Protocol 3 MCG/MIN Heparin Sodium/Dextrose 25,000 units in 250 mls @ 10 mls/hr 02/29/24 05:35 03/01/24 08:00 Heparin Sodium/D5w 100 Units/Ml IV CONT 1,000 units/hr .Q24H JASON 10 mls/hr Titration Protocol 1,000 UNITS/HR Vancomycin HCl 1,500 mg in 500 mls @ 250 mls/hr 02/29/24 14:00 03/01/24 07:54 Vancomycin 1,500 Mg/Ns 500 Ml IVPB 250 mls/hr Q18H JASON Administration Albumin Human 100 mls @ 60 mls/hr 03/01/24 07:36 03/01/24 09:35 Albutein IVPB 03/02/24 01:39 Infused Q6HR JASON Infusion Insulin Aspart 3 - 6 units 03/01/24 00:00 03/01/24 05:02 Insulin Aspart (*Bkc) 100 Units/Ml SUB-Q Not Given Q6H JASON Protocol Multi-Ingred Cream/Lotion/Oil/Oint 1 applic 02/29/24 09:00 03/01/24 07:55 Mineral Oil/White Petrolatum Ointment EACH EYE 1 applic Q12HR JASON Administration Naloxone HCl 0.1 mg 02/28/24 19:15 Naloxone Hcl 0.4 Mg/Ml Vial IV PUSH Q2M PRN Opiate Reversal Pantoprazole Sodium 40 mg 02/29/24 09:00 03/01/24 07:55 Pantoprazole Sodium Iv 40 Mg Vial IV PUSH 40 mg QAM JASON Administration Fluticasone/Salmeterol 2 puff 02/29/24 20:00 03/01/24 02:31 Fluticasone/Salmeterol 115-21 Mcg Inhaler 1 Puff INHALATION Not Given Q12HRT JASON Sodium Chloride 10 ml 02/29/24 06:00 03/01/24 05:01 Central Line Flush IV PUSH 10 ml Q8HR JASON Administration Sodium Chloride 20 ml 02/28/24 23:37 Central Line Flush IV PUSH PRN PRN after blood draws Radiology Results: ITS Impressions Lower Extremity CTA 02/28/24 14:54 IMPRESSION: 1. 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 2. Moderate stenosis of right popliteal artery. 3. Osteomyelitis involving first proximal and distal phalanges and head of first metatarsal. Abdomen X-Ray 02/28/24 21:31 IMPRESSION: 1. Nasogastric tube tip beyond the inferior margin of the radiograph, but at least to the distal stomach. Head CT 02/29/24 05:55 Impression: No intracranial hemorrhage, mass, or acute infarct. Stable chronic encephalomalacia in the high left parietal lobe. Atrophy and chronic white matter changes, as above. Chest/Abdomen/Pelvis CTA 02/29/24 06:02 Impression: Extensive right upper lobe consolidation and more mild right middle lobe consolidation, consistent with pneumonia. Consider aspiration pneumonia. Moderate to large right pleural effusion with complete atelectasis of the right lower lobe. Moderate left pleural effusion with minimal left basilar atelectasis. Small pericardial effusion. No definite acute abnormality in the abdomen or pelvis. Chronic compression fractures, as above. Chest X-Ray 03/01/24 06:25 Impression: 1: Persistent bilateral airspace disease, right greater than left. Differential diagnosis includes edema and pneumonia. 2: Small right pleural effusion. Labs Labs: Laboratory Results - last 24 hr 02/29/24 02/29/24 02/29/24 11:46 11:47 13:34 WBC RBC Hgb Hct MCV MCH MCHC RDW Plt Count MPV Immature Gran % (Auto) Neut % (Auto) Lymph % (Auto) [place] % (Auto) Eos % (Auto) Baso % (Auto) Lymph # (Auto) [place] # (Auto) Eos # (Auto) Baso # (Auto) Abs Immat Gran (auto) Absolute Neuts (auto) Absolute Nucleated RBC Nucleated RBC % Platelet Estimate Hypochromasia Anisocytosis Tessy Cells Schistocytes PT INR APTT 72.7 H Puncture Site ABG pH ABG pCO2 ABG pO2 ABG PO2/FiO2 Ratio ABG HCO3 ABG O2 Saturation ABG O2 Content ABG Base Excess A-a Gradient Oxyhemoglobin Carboxyhemoglobin Methemoglobin Reduced Hemoglobin Total Hemoglobin O2 Delivery Device O2 Liters/Min Minute Volume Vent Rate Vent Mode FiO2 Tidal Volume PEEP Peak Inspir Pressure Pressure Support Sodium Potassium Chloride Carbon Dioxide Anion Gap BUN Creatinine Estim Creat Clear Calc Estimated GFR Glucose POC Capillary Glucose 162 H 157 H Lactic Acid Calcium Magnesium Total Bilirubin AST ALT Alkaline Phosphatase C-Reactive Protein Total Protein Albumin Vancomycin Trough 02/29/24 02/29/24 03/01/24 18:19 23:20 04:56 WBC RBC Hgb Hct MCV MCH MCHC RDW Plt Count MPV Immature Gran % (Auto) Neut % (Auto) Lymph % (Auto) [place] % (Auto) Eos % (Auto) Baso % (Auto) Lymph # (Auto) [place] # (Auto) Eos # (Auto) Baso # (Auto) Abs Immat Gran (auto) Absolute Neuts (auto) Absolute Nucleated RBC Nucleated RBC % Platelet Estimate Hypochromasia Anisocytosis Tessy Cells Schistocytes PT INR APTT 73.2 H Puncture Site ABG pH ABG pCO2 ABG pO2 ABG PO2/FiO2 Ratio ABG HCO3 ABG O2 Saturation ABG O2 Content ABG Base Excess A-a Gradient Oxyhemoglobin Carboxyhemoglobin Methemoglobin Reduced Hemoglobin Total Hemoglobin O2 Delivery Device O2 Liters/Min Minute Volume Vent Rate Vent Mode FiO2 Tidal Volume PEEP Peak Inspir Pressure Pressure Support Sodium Potassium Chloride Carbon Dioxide Anion Gap BUN Creatinine Estim Creat Clear Calc Estimated GFR Glucose POC Capillary Glucose 201 H 183 H Lactic Acid Calcium Magnesium Total Bilirubin AST ALT Alkaline Phosphatase C-Reactive Protein Total Protein Albumin Vancomycin Trough 03/01/24 03/01/24 03/01/24 05:06 05:09 05:10 WBC 22.1 H RBC 3.27 L Hgb 8.9 L Hct 28.3 L MCV 86.5 MCH 27.2 MCHC 31.4 L RDW 15.2 H Plt Count 445 H MPV 8.9 Immature Gran % (Auto) 1.9 H Neut % (Auto) 88.7 H Lymph % (Auto) 4.8 L [place] % (Auto) 4.4 Eos % (Auto) 0.0 Baso % (Auto) 0.2 Lymph # (Auto) 1.06 [place] # (Auto) 1.0 H Eos # (Auto) 0.0 Baso # (Auto) 0.1 Abs Immat Gran (auto) 0.41 H Absolute Neuts (auto) 19.6 H Absolute Nucleated RBC 0.000 Nucleated RBC % 0.0 Platelet Estimate Increased Hypochromasia 1+ Anisocytosis 1+ Tessy Cells 1+ Schistocytes None seen PT 18.8 H INR 1.5 APTT 74.5 H Puncture Site Right radial ABG pH 7.416 ABG pCO2 28.8 L ABG pO2 89.5 ABG PO2/FiO2 Ratio 2.24 ABG HCO3 18.1 L ABG O2 Saturation 97.1 ABG O2 Content 14.7 L ABG Base Excess -5.4 A-a Gradient 162.6 Oxyhemoglobin 96.0 Carboxyhemoglobin 1.2 Methemoglobin 0.3 Reduced Hemoglobin 2.5 Total Hemoglobin 10.8 L O2 Delivery Device Ventilator O2 Liters/Min Not Reportable Minute Volume Not Reportable Vent Rate 24 Vent Mode Cmv FiO2 40 Tidal Volume 450 PEEP 8 Peak Inspir Pressure Not Reportable Pressure Support Not Reportable Sodium 133 L Potassium 4.4 Chloride 105 Carbon Dioxide 20 L Anion Gap 8 BUN 22 H Creatinine 1.10 Estim Creat Clear Calc 67 Estimated GFR > 60 Glucose 207 H POC Capillary Glucose Lactic Acid 1.6 Calcium 7.0 L Magnesium 2.2 Total Bilirubin 0.3 AST 49 ALT 20 Alkaline Phosphatase 109 C-Reactive Protein 20.2 H Total Protein 6.0 L Albumin 2.5 L Vancomycin Trough 03/01/24 06:45 WBC RBC Hgb Hct MCV MCH MCHC RDW Plt Count MPV Immature Gran % (Auto) Neut % (Auto) Lymph % (Auto) [place] % (Auto) Eos % (Auto) Baso % (Auto) Lymph # (Auto) [place] # (Auto) Eos # (Auto) Baso # (Auto) Abs Immat Gran (auto) Absolute Neuts (auto) Absolute Nucleated RBC Nucleated RBC % Platelet Estimate Hypochromasia Anisocytosis Tessy Cells Schistocytes PT INR APTT Puncture Site ABG pH ABG pCO2 ABG pO2 ABG PO2/FiO2 Ratio ABG HCO3 ABG O2 Saturation ABG O2 Content ABG Base Excess A-a Gradient Oxyhemoglobin Carboxyhemoglobin Methemoglobin Reduced Hemoglobin Total Hemoglobin O2 Delivery Device O2 Liters/Min Minute Volume Vent Rate Vent Mode FiO2 Tidal Volume PEEP Peak Inspir Pressure Pressure Support Sodium Potassium Chloride Carbon Dioxide Anion Gap BUN Creatinine Estim Creat Clear Calc Estimated GFR Glucose POC Capillary Glucose Lactic Acid Calcium Magnesium Total Bilirubin AST ALT Alkaline Phosphatase C-Reactive Protein Total Protein Albumin Vancomycin Trough 15.3
[2024-03-01 11:17] LABS: Glucose Point of Care 218 mg/dl (65-105)
[2024-03-01] MEDS: INSULIN ASPART (*BKC) 100 UNITS/ML SUB-Q ×2 (11:18→18:17)
--- NOTE | 2024-03-01 12:38 | P.PNINT_ITS ---
Progress Note: A&P Assessment and Plan (1) Cardiac arrest with pulseless electrical activity: Code(s): I46.9 - Cardiac arrest, cause unspecified Status: Acute Assessment and Plan: Cardiac arrest, secondary to unknown etiology. Possible aspiration pneumonia, NSTEMI, hypoxia, septic shock, infection -see code blue sheet for the details -patient currently intubated, vasopressors for blood pressure support -appreciate cardiology following the patient 02/29/2024 echocardiogram Summary 1. Technically difficult study with limited views. 2. Left ventricular chamber dimension is normal. 3. Left ventricular systolic function is mildly reduced, estimated at 45-50%. The apex appears to be hypokinetic. 4. There is mildly increased left ventricular wall thickness. 5. The left ventricular diastolic function is grade I diastolic dysfunction. 6. Right ventricular systolic function is normal. 7. Left atrial chamber dimension is moderately enlarged. 8. There is mild to moderate tricuspid valve regurgitation. 9. There is small anterior pericardial effusion. (2) Septic shock: Code(s): A41.9 - Sepsis, unspecified organism; R65.21 - Severe sepsis with septic shock Status: Acute Assessment and Plan: Patient in shock, likely related to the gangrene, aspiration pneumonia, status post cardiac arrest 02/28/2024: Blood cultures have been obtained and pending -lactic acid has normalized -patient has been adequately fluid-resuscitated -wean Levophed to maintain MAP > 65 mgHg for adequate end organ perfusion -continue stress dose steroids for pneumonia and shock -will discontinue IV fluids, will start albumin for intravascular volume expansion (3) NSTEMI (non-ST elevated myocardial infarction): Code(s): I21.4 - Non-ST elevation (NSTEMI) myocardial infarction Status: Acute Assessment and Plan: Increasing troponins, -EKG showed sinus rhythm with T-wave changes in V1 to V5 -currently on heparin infusion for NSTEMI -appreciate cardiology evaluation and recommendation -Continue aspirin and high-dose a statin -will hold Brilinta -will also hold beta-brayden, losartan which is home med, since he is hypotensive on vasopressors (4) Gangrene of right foot: Code(s): I96 - Gangrene, not elsewhere classified Status: Acute Assessment and Plan: CTA showed peripheral arterial disease with total occlusion of the right anterior and posterior tibial arteries and right peroneal artery with distal reconstitution of peroneal artery. This extensive gangrene of the right foot with gas seen on CT of the foot. -pre following the patient, plan was to do a below-knee amputation on 02/29/2024 but given his cardiac arrest, NSTEMI and on pressors this has been deferred. Discussed with surgery -continue antibiotics for necrotizing gas gangrene. Patient on meropenem, clindamycin and vancomycin which was started on 02/28/2024 (5) Osteomyelitis of toe of right foot: Code(s): M86.9 - Osteomyelitis, unspecified Status: Chronic Assessment and Plan: As above (6) Peripheral vascular disease: Code(s): I73.9 - Peripheral vascular disease, unspecified Status: Chronic Assessment and Plan: Patient has history of peripheral vascular disease, coronary artery disease -started on aspirin, patient will require Brilinta since he had a STEMI in 2020 but currently holding Brilinta due to possible amputation (7) Type 2 diabetes mellitus: Qualifiers: 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 complication status: with other specified complication 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 penitentiary insulin use: with 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 helper termite use Qualified Code(s): E11.69 - Type 2 diabetes mellitus with other specified complication; Z79.4 - intermediate designer (current) use of insulin Code(s): E11.9 - Type 2 diabetes mellitus without complications Status: Acute Assessment and Plan: Currently on sliding scale insulin, Accu-Cheks Patient does take Lantus and metformin at home, if patient is hyperglycemic will add Lantus (8) Chronic obstructive pulmonary disease: Code(s): J44.9 - Chronic obstructive pulmonary disease, unspecified Status: Acute Assessment and Plan: Continue DuoNebs -continue Symbicort Plan DVT prophylaxis: Heparin infusion Stress ulcer prophylaxis: Protonix Nutrition: Will start trickle tube feeds Code Status: Full code Critical Care Time Spent: 33 minutes -discussed with surgery and Cardiology Due to a high probability of clinically significant, life threatening deterioration, the patient required my highest level of preparedness to intervene emergently and I personally spent this critical care time directly and personally managing the patient. This critical care time included obtaining a history; examining the patient; pulse oximetry; ordering and review of studies; arranging urgent treatment with development of a management plan; evaluation of patient's response to treatment; frequent reassessment; and discussions with other providers. It was exclusive of separately billable procedures and treating other patients and teaching time. Please see Assessment and Plan section and the rest of the note for further information on patient assessment and treatment This dictation may have been done utilizing a voice recognition system. Attempts have been made to correct errors. However, there may be uncorrected grammatical, spelling, and recognitions errors present. Subjective Date/time seen: 03/01/24 12:38 Interval history: Reason for consult: Status post PEA arrest, right foot gangrene with cellulitis, shock 03/01/2024: Patient seen and examined in the ICU, remains intubated, on CMV mode of ventilation, peep of 8, 40% FiO2. Sedated with fentanyl and Versed infusion. Patient did open his eyes but does not follow commands. Remains on Levophed which is being weaned. Urine has been adequate, afebrile. Remains on heparin infusion for NSTEMI Review of Systems 2 Review of Systems: ROS unobtainable: Yes unobtainable due to endotracheal tube, unobtainable due to medical condition and unobtainable due to mental status Exam Narrative: General: Patient intubated and sedated no acute distress HEENT:, pupils are equal and reactive from a sclera is clear Neck:? supple Respiratory:? Coarse breath sounds bilaterally, decreased at bases, adequate air entry Cardiac:? S1-S2 normal, regular rate and rhythm Abdomen:? Soft, nontender, nondistended, hypoactive bowel sounds Extremities:? Gangrenous right 1st toe down to the 1st metatarsal, dorsum of the foot and all the way to approximately the heel on the medial aspect and pl juan aspect of the foot over the 1st metatarsal. Purulent drainage and foul order. There is also erythema and swelling of the right foot. Posterior tibial and pedal pulses are not palpable Neuro:? Patient is intubated, sedated, opens eyes but does not follow simple commands Skin:? Patient has maceration of his perianal area, and states to pressure ulcer on his buttocks. Psych:? Unable to assess at this time Objective Data Vital Signs Vital Signs: Vital Signs - 24 hr 02/29/24 13:43 02/29/24 13:45 02/29/24 14:00 Temperature 97.8 F Pulse Rate 74 73 72 Respiratory Rate 24 H Blood Pressure 119/67 123/69 Pulse Oximetry 100 100 Oxygen Delivery Mechanical Ventilation Fraction of Inspired Oxygen 40 02/29/24 14:00 02/29/24 14:00 02/29/24 14:00 Temperature Pulse Rate 75 78 78 Respiratory Rate 24 H 24 H Blood Pressure 133/66 Pulse Oximetry Oxygen Delivery Fraction of Inspired Oxygen 02/29/24 14:05 02/29/24 14:45 02/29/24 14:50 Temperature Pulse Rate 78 77 78 Respiratory Rate 24 H Blood Pressure 123/69 127/71 Pulse Oximetry Oxygen Delivery Fraction of Inspired Oxygen 02/29/24 15:47 02/29/24 16:21 02/29/24 16:00 Temperature Pulse Rate 80 88 85 Respiratory Rate 25 H Blood Pressure 117/61 Pulse Oximetry Oxygen Delivery Fraction of Inspired Oxygen 02/29/24 16:00 02/29/24 16:00 02/29/24 16:00 Temperature 97.9 F Pulse Rate 85 85 Respiratory Rate 24 H 24 H Blood Pressure 114/55 L Pulse Oximetry 99 99 Oxygen Delivery Mechanical Ventilation Fraction of Inspired Oxygen 40 40 02/29/24 17:16 02/29/24 18:00 02/29/24 18:15 Temperature 97.8 F Pulse Rate 83 79 81 Respiratory Rate 22 H Blood Pressure 112/58 L 119/58 L Pulse Oximetry 100 99 Oxygen Delivery Mechanical Ventilation Fraction of Inspired Oxygen 40 02/29/24 18:47 02/29/24 18:47 02/29/24 18:45 Temperature Pulse Rate 76 76 75 Respiratory Rate 24 H 24 H Blood Pressure 111/58 L Pulse Oximetry Oxygen Delivery Fraction of Inspired Oxygen 02/29/24 16:00 02/29/24 18:00 02/29/24 16:00 Temperature Pulse Rate 78 79 79 Respiratory Rate 24 H Blood Pressure Pulse Oximetry Oxygen Delivery Fraction of Inspired Oxygen 02/29/24 18:00 02/29/24 16:00 02/29/24 18:00 Temperature Pulse Rate 78 78 79 Respiratory Rate 24 H 24 H 24 H Blood Pressure Pulse Oximetry Oxygen Delivery Fraction of Inspired Oxygen 02/29/24 20:30 02/29/24 20:31 02/29/24 20:00 Temperature Pulse Rate 87 87 73 Respiratory Rate 26 H Blood Pressure 107/57 L Pulse Oximetry 99 Oxygen Delivery Mechanical Ventilation Fraction of Inspired Oxygen 40 02/29/24 20:00 02/29/24 20:00 02/29/24 20:00 Temperature Pulse Rate 72 73 74 Respiratory Rate 24 H 24 H Blood Pressure Pulse Oximetry Oxygen Delivery Fraction of Inspired Oxygen 02/29/24 20:45 02/29/24 20:00 02/29/24 20:00 Temperature 97.5 F L Pulse Rate 87 74 Respiratory Rate 26 H 24 H Blood Pressure 107/57 L Pulse Oximetry 99 99 Oxygen Delivery Mechanical Ventilation Fraction of Inspired Oxygen 40 40 02/29/24 21:35 02/29/24 21:30 02/29/24 21:45 Temperature 97.3 F L 97.3 F L Pulse Rate 74 74 76 Respiratory Rate 24 H 24 H Blood Pressure 117/60 117/60 108/52 L Pulse Oximetry 100 100 Oxygen Delivery Fraction of Inspired Oxygen 02/29/24 22:00 02/29/24 22:00 02/29/24 22:00 Temperature 97.2 F L Pulse Rate 75 74 74 Respiratory Rate 24 H 24 H 24 H Blood Pressure 105/56 L Pulse Oximetry 99 Oxygen Delivery Fraction of Inspired Oxygen 02/29/24 23:35 02/29/24 23:30 02/29/24 23:45 Temperature 97 F L 97 F L Pulse Rate 74 73 72 Respiratory Rate 24 H 24 H Blood Pressure 106/71 106/71 102/51 L Pulse Oximetry 100 100 Oxygen Delivery Fraction of Inspired Oxygen 02/29/24 23:54 03/01/24 00:00 03/01/24 00:00 Temperature 97 F L Pulse Rate 72 74 Respiratory Rate 24 H 100 H Blood Pressure 105/53 L Pulse Oximetry 100 24 L Oxygen Delivery Mechanical Ventilation Fraction of Inspired Oxygen 40 40 03/01/24 00:00 03/01/24 00:00 03/01/24 00:00 Temperature Pulse Rate 74 75 75 Respiratory Rate 24 H 24 H Blood Pressure 105/53 L Pulse Oximetry Oxygen Delivery Fraction of Inspired Oxygen 03/01/24 00:00 03/01/24 01:26 03/01/24 01:15 Temperature 96.9 F L Pulse Rate 75 67 69 Respiratory Rate 24 H Blood Pressure 117/57 L 117/57 L Pulse Oximetry 100 Oxygen Delivery Fraction of Inspired Oxygen 02/29/24 23:20 02/29/24 20:41 03/01/24 01:30 Temperature 96.9 F L Pulse Rate 73 89 66 Respiratory Rate 26 H 24 H Blood Pressure 102/51 L Pulse Oximetry 100 100 Oxygen Delivery Mechanical Ventilation Fraction of Inspired Oxygen 40 03/01/24 02:00 03/01/24 02:00 03/01/24 02:00 Temperature 96.9 F L Pulse Rate 70 70 70 Respiratory Rate 24 H 24 H Blood Pressure 99/52 L 99/52 L Pulse Oximetry 100 Oxygen Delivery Fraction of Inspired Oxygen 03/01/24 02:00 03/01/24 02:35 03/01/24 02:35 Temperature Pulse Rate 67 67 67 Respiratory Rate 24 H 24 H Blood Pressure Pulse Oximetry 100 Oxygen Delivery Mechanical Ventilation Fraction of Inspired Oxygen 40 03/01/24 02:45 03/01/24 03:22 03/01/24 04:00 Temperature Pulse Rate 68 77 78 Respiratory Rate 24 H 24 H 24 H Blood Pressure Pulse Oximetry Oxygen Delivery Fraction of Inspired Oxygen 03/01/24 04:00 03/01/24 04:06 03/01/24 04:00 Temperature Pulse Rate 78 63 63 Respiratory Rate 24 H 24 H Blood Pressure 84/41 L Pulse Oximetry 100 Oxygen Delivery Mechanical Ventilation Fraction of Inspired Oxygen 40 03/01/24 04:00 03/01/24 04:00 03/01/24 04:20 Temperature 97 F L 97 F L Pulse Rate 74 65 Respiratory Rate 24 H 24 H Blood Pressure 84/41 L 86/40 L Pulse Oximetry 100 100 Oxygen Delivery Fraction of Inspired Oxygen 40 03/01/24 04:16 03/01/24 04:30 03/01/24 04:10 Temperature 97 F L 97 F L Pulse Rate 65 57 L 76 Respiratory Rate 24 H 24 H Blood Pressure 86/40 L 107/51 L 94/55 L Pulse Oximetry 100 100 Oxygen Delivery Fraction of Inspired Oxygen 03/01/24 04:00 03/01/24 04:58 03/01/24 04:58 Temperature Pulse Rate 67 57 L 58 L Respiratory Rate 24 H 24 H Blood Pressure Pulse Oximetry Oxygen Delivery Fraction of Inspired Oxygen 03/01/24 04:59 03/01/24 05:00 03/01/24 05:07 Temperature Pulse Rate 57 L 65 60 Respiratory Rate Blood Pressure 116/50 L 116/50 L Pulse Oximetry 100 Oxygen Delivery Mechanical Ventilation Fraction of Inspired Oxygen 40 03/01/24 05:39 03/01/24 06:00 03/01/24 06:00 Temperature 97.4 F L Pulse Rate 84 63 62 Respiratory Rate 24 H 24 H 24 H Blood Pressure 116/52 L Pulse Oximetry 99 Oxygen Delivery Fraction of Inspired Oxygen 03/01/24 06:00 03/01/24 06:03 03/01/24 06:31 Temperature Pulse Rate 69 62 80 Respiratory Rate 24 H Blood Pressure 116/62 112/54 L Pulse Oximetry Oxygen Delivery Fraction of Inspired Oxygen 03/01/24 06:15 03/01/24 06:30 03/01/24 06:45 Temperature 97.4 F L 97.4 F L 97.5 F L Pulse Rate 91 80 78 Respiratory Rate 24 H 24 H 24 H Blood Pressure 111/49 L 112/54 L 102/51 L Pulse Oximetry 100 100 99 Oxygen Delivery Fraction of Inspired Oxygen 03/01/24 07:15 03/01/24 07:47 03/01/24 07:59 Temperature Pulse Rate 75 77 77 Respiratory Rate 24 H Blood Pressure 108/53 L Pulse Oximetry 98 Oxygen Delivery Mechanical Ventilation Fraction of Inspired Oxygen 40 03/01/24 08:00 03/01/24 08:00 03/01/24 08:00 Temperature Pulse Rate 81 82 81 Respiratory Rate 24 H 24 H Blood Pressure 97/49 L Pulse Oximetry Oxygen Delivery Fraction of Inspired Oxygen 03/01/24 09:10 03/01/24 09:15 03/01/24 08:00 Temperature Pulse Rate 82 77 81 Respiratory Rate 24 H Blood Pressure 94/48 L 105/49 L Pulse Oximetry 98 Oxygen Delivery Mechanical Ventilation Fraction of Inspired Oxygen 30 03/01/24 08:00 03/01/24 08:00 03/01/24 08:00 Temperature 97.8 F Pulse Rate 85 85 Respiratory Rate 19 Blood Pressure 97/49 L Pulse Oximetry 99 Oxygen Delivery Fraction of Inspired Oxygen 30 03/01/24 09:45 03/01/24 09:30 03/01/24 10:00 Temperature 98.3 F Pulse Rate 83 83 80 Respiratory Rate 24 H 24 H 24 H Blood Pressure 111/50 L Pulse Oximetry 97 Oxygen Delivery Fraction of Inspired Oxygen 03/01/24 11:01 Temperature Pulse Rate 92 Respiratory Rate Blood Pressure Pulse Oximetry 97 Oxygen Delivery Mechanical Ventilation Fraction of Inspired Oxygen 30 Intake/Output Intake/Output: Intake & Output 02/27/24 02/28/24 02/29/24 03/01/24 23:59 23:59 23:59 23:59 Intake Total 2144.8 7453.1 2014. Output Total 1000 350 Balance 2144.8 6453.1 1665.3 Meds/Results Medications: Active Medications Generic Name Dose Route Start Last Admin Trade Name Freq PRN Reason Stop Dose Admin Acetaminophen 500 mg 02/28/24 19:15 Acetaminophen 500 Mg Tablet PO Q6H PRN Pain Rated 1-3 Albuterol/Ipratropium 3 ml 02/29/24 02:00 03/01/24 02:31 Ipratropium 0.5 Mg/Albuterol Sulfate 2.5 Mg Ampul.Neb 3 Ml INHALATION 3 ml Q6HRT JASON Administration Aspirin 81 mg 03/01/24 08:00 03/01/24 07:55 Aspirin 81 Mg Chewable Tablet PO 81 mg DAILY@0800 JASON Administration Atorvastatin Calcium 80 mg 03/01/24 09:00 03/01/24 07:55 Atorvastatin 40 Mg Tablet PO 80 mg DAILY JASON Administration Dextrose 12.5 gm 02/28/24 19:23 Dextrose 50% 25 Gm/50 Ml Syringe IV PUSH PRN PRN Hypoglycemia Protocol Glucagon 1 mg 02/28/24 19:23 Glucagon For Inj 1 Mg Vial IM PRN PRN Hypoglycemia Protocol Glucose 15 gm 02/28/24 19:23 Glucose Oral Gel 15 Gm Of Glucse In 37.5 Gm Tube PO PRN PRN Hypoglycemia Protocol Heparin Sodium (Porcine) 4,000 units 02/29/24 05:31 Heparin Sodium 5,000 Units/Ml Vial IV PUSH PRN PRN aPTT less than 55 seconds Heparin Sodium (Porcine) 3,000 units 02/29/24 05:31 Heparin Sodium 5,000 Units/Ml Vial IV PUSH PRN PRN aPTT 55 - 70 seconds Hydrocortisone Sodium Succinate 100 mg 02/29/24 14:00 03/01/24 05:01 Hydrocortisone Sodium Succinate 100 Mg/2 Ml Vial IV PUSH 100 mg Q8HR JASON Administration Dextrose 1,000 mls @ 100 mls/hr 02/28/24 19:23 Dextrose 5% 1,000 Ml IVPB PRN PRN Hypoglycemia Protocol Fentanyl Citrate 2,500 mcg in 250 mls @ 10 mls/hr 02/28/24 21:20 03/01/24 09:45 Fentanyl 2,500 Mcg/Ns 250 Ml IV CONT 100 mcg/hr .Q25H JASON 10 mls/hr Titration Protocol 100 MCG/HR Midazolam HCl 100 mg in 100 mls @ 3 mls/hr 02/28/24 21:20 03/01/24 09:30 Versed 100 Mg/Ns 100 Ml IV CONT 3 mg/hr .[id number] JASON 3 mls/hr Titration Protocol 3 MG/HR Meropenem 1 gm in 100 mls @ 200 mls/hr 02/28/24 22:00 03/01/24 05:26 IVPB Infused Q8H JASON Infusion Clindamycin Phosphate 900 mg in 50 mls @ 50 mls/hr 02/28/24 21:00 03/01/24 05:05 Cleocin 900 Mg/D5w 50 Ml IVPB 50 mls/hr Q8H JASON Administration Norepinephrine Bitartrate 8 mg in 250 mls @ 5.625 mls/hr 02/28/24 23:05 03/01/24 09:15 Levophed 8 Mg/D5w 250 Ml IV CONT 4 mcg/min .Q24H JASON 7.5 mls/hr Titration Protocol 3 MCG/MIN Heparin Sodium/Dextrose 25,000 units in 250 mls @ 10 mls/hr 02/29/24 05:35 03/01/24 08:00 Heparin Sodium/D5w 100 Units/Ml IV CONT 1,000 units/hr .Q24H JASON 10 mls/hr Titration Protocol 1,000 UNITS/HR Vancomycin HCl 1,500 mg in 500 mls @ 250 mls/hr 02/29/24 14:00 03/01/24 09:54 Vancomycin 1,500 Mg/Ns 500 Ml IVPB Infused Q18H JASON Infusion Albumin Human 100 mls @ 60 mls/hr 03/01/24 07:36 03/01/24 11:12 Albutein IVPB 03/02/24 01:39 60 mls/hr Q6HR JASON Administration Insulin Aspart 3 - 6 units 03/01/24 00:00 03/01/24 11:18 Insulin Aspart (*Bkc) 100 Units/Ml SUB-Q 3 units Q6H JASON Administration Protocol Multi-Ingred Cream/Lotion/Oil/Oint 1 applic 02/29/24 09:00 03/01/24 07:55 Mineral Oil/White Petrolatum Ointment EACH EYE 1 applic Q12HR JASON Administration Naloxone HCl 0.1 mg 02/28/24 19:15 Naloxone Hcl 0.4 Mg/Ml Vial IV PUSH Q2M PRN Opiate Reversal Pantoprazole Sodium 40 mg 02/29/24 09:00 03/01/24 07:55 Pantoprazole Sodium Iv 40 Mg Vial IV PUSH 40 mg QAM JASON Administration Fluticasone/Salmeterol 2 puff 02/29/24 20:00 03/01/24 02:31 Fluticasone/Salmeterol 115-21 Mcg Inhaler 1 Puff INHALATION Not Given Q12HRT JASON Sodium Chloride 10 ml 02/29/24 06:00 03/01/24 05:01 Central Line Flush IV PUSH 10 ml Q8HR JASON Administration Sodium Chloride 20 ml 02/28/24 23:37 Central Line Flush IV PUSH PRN PRN after blood draws Radiology Results: ITS Impressions Lower Extremity CTA 02/28/24 14:54 IMPRESSION: 1. 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 2. Moderate stenosis of right popliteal artery. 3. Osteomyelitis involving first proximal and distal phalanges and head of first metatarsal. Abdomen X-Ray 02/28/24 21:31 IMPRESSION: 1. Nasogastric tube tip beyond the inferior margin of the radiograph, but at least to the distal stomach. Head CT 02/29/24 05:55 Impression: No intracranial hemorrhage, mass, or acute infarct. Stable chronic encephalomalacia in the high left parietal lobe. Atrophy and chronic white matter changes, as above. Chest/Abdomen/Pelvis CTA 02/29/24 06:02 Impression: Extensive right upper lobe consolidation and more mild right middle lobe consolidation, consistent with pneumonia. Consider aspiration pneumonia. Moderate to large right pleural effusion with complete atelectasis of the right lower lobe. Moderate left pleural effusion with minimal left basilar atelectasis. Small pericardial effusion. No definite acute abnormality in the abdomen or pelvis. Chronic compression fractures, as above. Chest X-Ray 03/01/24 06:25 Impression: 1: Persistent bilateral airspace disease, right greater than left. Differential diagnosis includes edema and pneumonia. 2: Small right pleural effusion. Labs Labs: Laboratory Results - last 24 hr 02/29/24 02/29/24 02/29/24 13:34 18:19 23:20 WBC RBC Hgb Hct MCV MCH MCHC RDW Plt Count MPV Immature Gran % (Auto) Neut % (Auto) Lymph % (Auto) [place] % (Auto) Eos % (Auto) Baso % (Auto) Lymph # (Auto) [place] # (Auto) Eos # (Auto) Baso # (Auto) Abs Immat Gran (auto) Absolute Neuts (auto) Absolute Nucleated RBC Nucleated RBC % Platelet Estimate Hypochromasia Anisocytosis Tessy Cells Schistocytes PT INR APTT 73.2 H Puncture Site ABG pH ABG pCO2 ABG pO2 ABG PO2/FiO2 Ratio ABG HCO3 ABG O2 Saturation ABG O2 Content ABG Base Excess A-a Gradient Oxyhemoglobin Carboxyhemoglobin Methemoglobin Reduced Hemoglobin Total Hemoglobin O2 Delivery Device O2 Liters/Min Minute Volume Vent Rate Vent Mode FiO2 Tidal Volume PEEP Peak Inspir Pressure Pressure Support Sodium Potassium Chloride Carbon Dioxide Anion Gap BUN Creatinine Estim Creat Clear Calc Estimated GFR Glucose POC Capillary Glucose 157 H 201 H Lactic Acid Calcium Magnesium Total Bilirubin AST ALT Alkaline Phosphatase C-Reactive Protein Total Protein Albumin Vancomycin Trough 03/01/24 03/01/24 03/01/24 04:56 05:06 05:09 WBC 22.1 H RBC 3.27 L Hgb 8.9 L Hct 28.3 L MCV 86.5 MCH 27.2 MCHC 31.4 L RDW 15.2 H Plt Count 445 H MPV 8.9 Immature Gran % (Auto) 1.9 H Neut % (Auto) 88.7 H Lymph % (Auto) 4.8 L [place] % (Auto) 4.4 Eos % (Auto) 0.0 Baso % (Auto) 0.2 Lymph # (Auto) 1.06 [place] # (Auto) 1.0 H Eos # (Auto) 0.0 Baso # (Auto) 0.1 Abs Immat Gran (auto) 0.41 H Absolute Neuts (auto) 19.6 H Absolute Nucleated RBC 0.000 Nucleated RBC % 0.0 Platelet Estimate Increased Hypochromasia 1+ Anisocytosis 1+ Tessy Cells 1+ Schistocytes None seen PT INR APTT Puncture Site Right radial ABG pH 7.416 ABG pCO2 28.8 L ABG pO2 89.5 ABG PO2/FiO2 Ratio 2.24 ABG HCO3 18.1 L ABG O2 Saturation 97.1 ABG O2 Content 14.7 L ABG Base Excess -5.4 A-a Gradient 162.6 Oxyhemoglobin 96.0 Carboxyhemoglobin 1.2 Methemoglobin 0.3 Reduced Hemoglobin 2.5 Total Hemoglobin 10.8 L O2 Delivery Device Ventilator O2 Liters/Min Not Reportable Minute Volume Not Reportable Vent Rate 24 Vent Mode Cmv FiO2 40 Tidal Volume 450 PEEP 8 Peak Inspir Pressure Not Reportable Pressure Support Not Reportable Sodium Potassium Chloride Carbon Dioxide Anion Gap BUN Creatinine Estim Creat Clear Calc Estimated GFR Glucose POC Capillary Glucose 183 H Lactic Acid 1.6 Calcium Magnesium Total Bilirubin AST ALT Alkaline Phosphatase C-Reactive Protein Total Protein Albumin Vancomycin Trough 03/01/24 03/01/24 03/01/24 05:10 06:45 11:14 WBC RBC Hgb Hct MCV MCH MCHC RDW Plt Count MPV Immature Gran % (Auto) Neut % (Auto) Lymph % (Auto) [place] % (Auto) Eos % (Auto) Baso % (Auto) Lymph # (Auto) [place] # (Auto) Eos # (Auto) Baso # (Auto) Abs Immat Gran (auto) Absolute Neuts (auto) Absolute Nucleated RBC Nucleated RBC % Platelet Estimate Hypochromasia Anisocytosis Tessy Cells Schistocytes PT 18.8 H INR 1.5 APTT 74.5 H Puncture Site ABG pH ABG pCO2 ABG pO2 ABG PO2/FiO2 Ratio ABG HCO3 ABG O2 Saturation ABG O2 Content ABG Base Excess A-a Gradient Oxyhemoglobin Carboxyhemoglobin Methemoglobin Reduced Hemoglobin Total Hemoglobin O2 Delivery Device O2 Liters/Min Minute Volume Vent Rate Vent Mode FiO2 Tidal Volume PEEP Peak Inspir Pressure Pressure Support Sodium 133 L Potassium 4.4 Chloride 105 Carbon Dioxide 20 L Anion Gap 8 BUN 22 H Creatinine 1.10 Estim Creat Clear Calc 67 Estimated GFR > 60 Glucose 207 H POC Capillary Glucose 218 H Lactic Acid Calcium 7.0 L Magnesium 2.2 Total Bilirubin 0.3 AST 49 ALT 20 Alkaline Phosphatase 109 C-Reactive Protein 20.2 H Total Protein 6.0 L Albumin 2.5 L Vancomycin Trough 15.3 Quality VTE Prophylaxis VTE prophylaxis: pharmacologic ordered
--- NOTE | 2024-03-01 13:53 | P.PNGS_ITS ---
Progress Note: A&P Assessment and Plan (1) Septic shock: Code(s): A41.9 - Sepsis, unspecified organism; R65.21 - Severe sepsis with septic shock Status: Acute Assessment and Plan: Discussed with Dr. Edmond. Patient weaning off pressors but still will be on mechanical ventilator. Could probably proceed with amputation early this coming week. (2) Cardiac arrest: Code(s): I46.9 - Cardiac arrest, cause unspecified Status: Acute Assessment and Plan: on 02/28/2024 (3) NSTEMI (non-ST elevated myocardial infarction): Code(s): I21.4 - Non-ST elevation (NSTEMI) myocardial infarction Status: Acute Assessment and Plan: Cardiology wants patient to be on anticoagulation but does not feel that amputation will cause his cardiac condition/infarction to worsen. (4) Acute respiratory failure with hypoxia: Code(s): J96.01 - Acute respiratory failure with hypoxia Status: Acute Assessment and Plan: Continues sedated on ventilator. Will follow. (5) Gangrene of right foot: Code(s): I96 - Gangrene, not elsewhere classified Status: Acute Assessment and Plan: Plan to proceed with right below-knee amputation when patient further recovered from cardiac arrest. Subjective Subjective Date/Time Seen: 03/01/24 13:53 Patient reports: other (Intubated and sedated) Review of Systems Review of Systems: ROS unobtainable: Yes unobtainable due to endotracheal tube Exam Const: General: patient obtunded Extrem: Right lower extremity: foot (Foot is bandaged, dressing is dry, lower leg unchanged) Objective Data Vital Signs Vital Signs: Vital Signs - 24 hr 02/29/24 14:00 02/29/24 14:00 02/29/24 14:00 Temperature 36.6 C Pulse Rate 72 75 78 Respiratory Rate 24 H 24 H Blood Pressure 123/69 133/66 Pulse Oximetry 100 Oxygen Delivery Fraction of Inspired Oxygen 02/29/24 14:00 02/29/24 14:05 02/29/24 14:45 Temperature Pulse Rate 78 78 77 Respiratory Rate 24 H 24 H Blood Pressure 123/69 Pulse Oximetry Oxygen Delivery Fraction of Inspired Oxygen 02/29/24 14:50 02/29/24 15:47 02/29/24 16:21 Temperature Pulse Rate 78 80 88 Respiratory Rate 25 H Blood Pressure 127/71 117/61 Pulse Oximetry Oxygen Delivery Fraction of Inspired Oxygen 02/29/24 16:00 02/29/24 16:00 02/29/24 16:00 Temperature 36.6 C Pulse Rate 85 85 Respiratory Rate 24 H Blood Pressure 114/55 L Pulse Oximetry 99 Oxygen Delivery Fraction of Inspired Oxygen 40 02/29/24 16:00 02/29/24 17:16 02/29/24 18:00 Temperature 36.6 C Pulse Rate 85 83 79 Respiratory Rate 24 H 22 H Blood Pressure 112/58 L Pulse Oximetry 99 100 99 Oxygen Delivery Mechanical Ventilation Mechanical Ventilation Fraction of Inspired Oxygen 40 40 02/29/24 18:15 02/29/24 18:47 02/29/24 18:47 Temperature Pulse Rate 81 76 76 Respiratory Rate 24 H 24 H Blood Pressure 119/58 L Pulse Oximetry Oxygen Delivery Fraction of Inspired Oxygen 02/29/24 18:45 02/29/24 16:00 02/29/24 18:00 Temperature Pulse Rate 75 78 79 Respiratory Rate Blood Pressure 111/58 L Pulse Oximetry Oxygen Delivery Fraction of Inspired Oxygen 02/29/24 16:00 02/29/24 18:00 02/29/24 16:00 Temperature Pulse Rate 79 78 78 Respiratory Rate 24 H 24 H 24 H Blood Pressure Pulse Oximetry Oxygen Delivery Fraction of Inspired Oxygen 02/29/24 18:00 02/29/24 20:30 02/29/24 20:31 Temperature Pulse Rate 79 87 87 Respiratory Rate 24 H 26 H Blood Pressure Pulse Oximetry 99 Oxygen Delivery Mechanical Ventilation Fraction of Inspired Oxygen 40 02/29/24 20:00 02/29/24 20:00 02/29/24 20:00 Temperature Pulse Rate 73 72 73 Respiratory Rate 24 H 24 H Blood Pressure 107/57 L Pulse Oximetry Oxygen Delivery Fraction of Inspired Oxygen 02/29/24 20:00 02/29/24 20:45 02/29/24 20:00 Temperature Pulse Rate 74 87 Respiratory Rate 26 H Blood Pressure Pulse Oximetry 99 Oxygen Delivery Mechanical Ventilation Fraction of Inspired Oxygen 40 40 02/29/24 20:00 02/29/24 21:35 02/29/24 21:30 Temperature 36.4 C L 36.3 C L Pulse Rate 74 74 74 Respiratory Rate 24 H 24 H Blood Pressure 107/57 L 117/60 117/60 Pulse Oximetry 99 100 Oxygen Delivery Fraction of Inspired Oxygen 02/29/24 21:45 02/29/24 22:00 02/29/24 22:00 Temperature 36.3 C L 36.2 C L Pulse Rate 76 75 74 Respiratory Rate 24 H 24 H 24 H Blood Pressure 108/52 L 105/56 L Pulse Oximetry 100 99 Oxygen Delivery Fraction of Inspired Oxygen 02/29/24 22:00 02/29/24 23:35 02/29/24 23:30 Temperature 36.1 C L Pulse Rate 74 74 73 Respiratory Rate 24 H 24 H Blood Pressure 106/71 106/71 Pulse Oximetry 100 Oxygen Delivery Fraction of Inspired Oxygen 02/29/24 23:45 02/29/24 23:54 03/01/24 00:00 Temperature 36.1 C L Pulse Rate 72 72 Respiratory Rate 24 H 24 H Blood Pressure 102/51 L Pulse Oximetry 100 100 Oxygen Delivery Mechanical Ventilation Fraction of Inspired Oxygen 40 40 03/01/24 00:00 03/01/24 00:00 03/01/24 00:00 Temperature 36.1 C L Pulse Rate 74 74 75 Respiratory Rate 100 H 24 H Blood Pressure 105/53 L 105/53 L Pulse Oximetry 24 L Oxygen Delivery Fraction of Inspired Oxygen 03/01/24 00:00 03/01/24 00:00 03/01/24 01:26 Temperature Pulse Rate 75 75 67 Respiratory Rate 24 H Blood Pressure 117/57 L Pulse Oximetry Oxygen Delivery Fraction of Inspired Oxygen 03/01/24 01:15 02/29/24 23:20 02/29/24 20:41 Temperature 36.1 C L Pulse Rate 69 73 89 Respiratory Rate 24 H 26 H Blood Pressure 117/57 L Pulse Oximetry 100 100 Oxygen Delivery Mechanical Ventilation Fraction of Inspired Oxygen 40 03/01/24 01:30 03/01/24 02:00 03/01/24 02:00 Temperature 36.1 C L 36.1 C L Pulse Rate 66 70 70 Respiratory Rate 24 H 24 H Blood Pressure 102/51 L 99/52 L 99/52 L Pulse Oximetry 100 100 Oxygen Delivery Fraction of Inspired Oxygen 03/01/24 02:00 03/01/24 02:00 03/01/24 02:35 Temperature Pulse Rate 70 67 67 Respiratory Rate 24 H 24 H Blood Pressure Pulse Oximetry 100 Oxygen Delivery Mechanical Ventilation Fraction of Inspired Oxygen 40 03/01/24 02:35 03/01/24 02:45 03/01/24 03:22 Temperature Pulse Rate 67 68 77 Respiratory Rate 24 H 24 H 24 H Blood Pressure Pulse Oximetry Oxygen Delivery Fraction of Inspired Oxygen 03/01/24 04:00 03/01/24 04:00 03/01/24 04:06 Temperature Pulse Rate 78 78 63 Respiratory Rate 24 H 24 H Blood Pressure 84/41 L Pulse Oximetry Oxygen Delivery Fraction of Inspired Oxygen 03/01/24 04:00 03/01/24 04:00 03/01/24 04:00 Temperature 36.1 C L Pulse Rate 63 74 Respiratory Rate 24 H 24 H Blood Pressure 84/41 L Pulse Oximetry 100 100 Oxygen Delivery Mechanical Ventilation Fraction of Inspired Oxygen 40 40 03/01/24 04:20 03/01/24 04:16 03/01/24 04:30 Temperature 36.1 C L 36.1 C L Pulse Rate 65 65 57 L Respiratory Rate 24 H 24 H Blood Pressure 86/40 L 86/40 L 107/51 L Pulse Oximetry 100 100 Oxygen Delivery Fraction of Inspired Oxygen 03/01/24 04:10 03/01/24 04:00 03/01/24 04:58 Temperature 36.1 C L Pulse Rate 76 67 57 L Respiratory Rate 24 H 24 H Blood Pressure 94/55 L Pulse Oximetry 100 Oxygen Delivery Fraction of Inspired Oxygen 03/01/24 04:58 03/01/24 04:59 03/01/24 05:00 Temperature Pulse Rate 58 L 57 L 65 Respiratory Rate 24 H Blood Pressure 116/50 L 116/50 L Pulse Oximetry Oxygen Delivery Fraction of Inspired Oxygen 03/01/24 05:07 03/01/24 05:39 03/01/24 06:00 Temperature 36.3 C L Pulse Rate 60 84 63 Respiratory Rate 24 H 24 H Blood Pressure 116/52 L Pulse Oximetry 100 99 Oxygen Delivery Mechanical Ventilation Fraction of Inspired Oxygen 40 03/01/24 06:00 03/01/24 06:00 03/01/24 06:03 Temperature Pulse Rate 62 69 62 Respiratory Rate 24 H 24 H Blood Pressure 116/62 Pulse Oximetry Oxygen Delivery Fraction of Inspired Oxygen 03/01/24 06:31 03/01/24 06:15 03/01/24 06:30 Temperature 36.3 C L 36.3 C L Pulse Rate 80 91 80 Respiratory Rate 24 H 24 H Blood Pressure 112/54 L 111/49 L 112/54 L Pulse Oximetry 100 100 Oxygen Delivery Fraction of Inspired Oxygen 03/01/24 06:45 03/01/24 07:15 03/01/24 07:47 Temperature 36.4 C L Pulse Rate 78 75 77 Respiratory Rate 24 H 24 H Blood Pressure 102/51 L 108/53 L Pulse Oximetry 99 Oxygen Delivery Fraction of Inspired Oxygen 03/01/24 07:59 03/01/24 08:00 03/01/24 08:00 Temperature Pulse Rate 77 81 82 Respiratory Rate 24 H 24 H Blood Pressure Pulse Oximetry 98 Oxygen Delivery Mechanical Ventilation Fraction of Inspired Oxygen 40 03/01/24 08:00 03/01/24 09:10 03/01/24 09:15 Temperature Pulse Rate 81 82 77 Respiratory Rate Blood Pressure 97/49 L 94/48 L 105/49 L Pulse Oximetry Oxygen Delivery Fraction of Inspired Oxygen 03/01/24 08:00 03/01/24 08:00 03/01/24 08:00 Temperature Pulse Rate 81 85 Respiratory Rate 24 H Blood Pressure Pulse Oximetry 98 Oxygen Delivery Mechanical Ventilation Fraction of Inspired Oxygen 30 30 03/01/24 08:00 03/01/24 09:45 03/01/24 09:30 Temperature 36.6 C Pulse Rate 85 83 83 Respiratory Rate 19 24 H 24 H Blood Pressure 97/49 L Pulse Oximetry 99 Oxygen Delivery Fraction of Inspired Oxygen 03/01/24 10:00 03/01/24 11:01 03/01/24 10:00 Temperature 36.8 C Pulse Rate 80 92 81 Respiratory Rate 24 H Blood Pressure 111/50 L 111/50 L Pulse Oximetry 97 97 Oxygen Delivery Mechanical Ventilation Fraction of Inspired Oxygen 30 03/01/24 10:30 03/01/24 12:00 03/01/24 12:15 Temperature Pulse Rate 79 76 69 Respiratory Rate Blood Pressure 109/46 L 95/42 L 86/42 L Pulse Oximetry Oxygen Delivery Fraction of Inspired Oxygen 03/01/24 10:15 03/01/24 10:45 03/01/24 12:30 Temperature Pulse Rate 82 82 69 Respiratory Rate Blood Pressure 109/48 L 97/46 L 86/42 L Pulse Oximetry Oxygen Delivery Fraction of Inspired Oxygen 03/01/24 12:00 03/01/24 12:00 03/01/24 12:00 Temperature 36.9 C Pulse Rate 67 67 Respiratory Rate 24 H Blood Pressure 95/42 L Pulse Oximetry 98 Oxygen Delivery Fraction of Inspired Oxygen 30 03/01/24 12:00 03/01/24 10:00 03/01/24 12:00 Temperature Pulse Rate 76 80 78 Respiratory Rate 24 H 24 H 24 H Blood Pressure Pulse Oximetry 99 Oxygen Delivery Mechanical Ventilation Fraction of Inspired Oxygen 30 03/01/24 10:00 03/01/24 12:00 Temperature Pulse Rate 79 81 Respiratory Rate 24 H 24 H Blood Pressure Pulse Oximetry Oxygen Delivery Fraction of Inspired Oxygen Intake/Output Intake/Output: Intake & Output 02/27/24 02/28/24 02/29/24 03/01/24 23:59 23:59 23:59 23:59 Intake Total 2144.8 7453.1 2252.6 Output Total 1000 350 Balance 2144.8 6453.1 1902.6 Meds/Results Medications: Active Medications Generic Name Dose Route Start Last Admin Trade Name Freq PRN Reason Stop Dose Admin Acetaminophen 500 mg 02/28/24 19:15 Acetaminophen 500 Mg Tablet PO Q6H PRN Pain Rated 1-3 Albuterol/Ipratropium 3 ml 02/29/24 02:00 03/01/24 02:31 Ipratropium 0.5 Mg/Albuterol Sulfate 2.5 Mg Ampul.Neb 3 Ml INHALATION 3 ml Q6HRT JASON Administration Aspirin 81 mg 03/01/24 08:00 03/01/24 07:55 Aspirin 81 Mg Chewable Tablet PO 81 mg DAILY@0800 JASON Administration Atorvastatin Calcium 80 mg 03/01/24 09:00 03/01/24 07:55 Atorvastatin 40 Mg Tablet PO 80 mg DAILY JASON Administration Dextrose 12.5 gm 02/28/24 19:23 Dextrose 50% 25 Gm/50 Ml Syringe IV PUSH PRN PRN Hypoglycemia Protocol Glucagon 1 mg 02/28/24 19:23 Glucagon For Inj 1 Mg Vial IM PRN PRN Hypoglycemia Protocol Glucose 15 gm 02/28/24 19:23 Glucose Oral Gel 15 Gm Of Glucse In 37.5 Gm Tube PO PRN PRN Hypoglycemia Protocol Heparin Sodium (Porcine) 4,000 units 02/29/24 05:31 Heparin Sodium 5,000 Units/Ml Vial IV PUSH PRN PRN aPTT less than 55 seconds Heparin Sodium (Porcine) 3,000 units 02/29/24 05:31 Heparin Sodium 5,000 Units/Ml Vial IV PUSH PRN PRN aPTT 55 - 70 seconds Hydrocortisone Sodium Succinate 100 mg 02/29/24 14:00 03/01/24 13:26 Hydrocortisone Sodium Succinate 100 Mg/2 Ml Vial IV PUSH 100 mg Q8HR JASON Administration Dextrose 1,000 mls @ 100 mls/hr 02/28/24 19:23 Dextrose 5% 1,000 Ml IVPB PRN PRN Hypoglycemia Protocol Fentanyl Citrate 2,500 mcg in 250 mls @ 10 mls/hr 02/28/24 21:20 03/01/24 12:00 Fentanyl 2,500 Mcg/Ns 250 Ml IV CONT 100 mcg/hr .Q25H JASON 10 mls/hr Titration Protocol 100 MCG/HR Midazolam HCl 100 mg in 100 mls @ 3 mls/hr 02/28/24 21:20 03/01/24 12:00 Versed 100 Mg/Ns 100 Ml IV CONT 3 mg/hr .[id number] JASON 3 mls/hr Titration Protocol 3 MG/HR Meropenem 1 gm in 100 mls @ 200 mls/hr 02/28/24 22:00 03/01/24 13:26 IVPB 200 mls/hr Q8H JASON Administration Clindamycin Phosphate 900 mg in 50 mls @ 50 mls/hr 02/28/24 21:00 03/01/24 13 :26 Cleocin 900 Mg/D5w 50 Ml IVPB 50 mls/hr Q8H JASON Administration Norepinephrine Bitartrate 8 mg in 250 mls @ 5.625 mls/hr 02/28/24 23:05 03/01/24 12:30 Levophed 8 Mg/D5w 250 Ml IV CONT 4 mcg/min .Q24H JASON 7.5 mls/hr Titration Protocol 3 MCG/MIN Heparin Sodium/Dextrose 25,000 units in 250 mls @ 10 mls/hr 02/29/24 05:35 03/01/24 12:00 Heparin Sodium/D5w 100 Units/Ml IV CONT 1,000 units/hr .Q24H JASON 10 mls/hr Titration Protocol 1,000 UNITS/HR Vancomycin HCl 1,500 mg in 500 mls @ 250 mls/hr 02/29/24 14:00 03/01/24 09:54 Vancomycin 1,500 Mg/Ns 500 Ml IVPB Infused Q18H JASON Infusion Albumin Human 100 mls @ 60 mls/hr 03/01/24 07:36 03/01/24 12:53 Albutein IVPB 03/02/24 01:39 Infused Q6HR JASON Infusion Insulin Aspart 3 - 6 units 03/01/24 00:00 03/01/24 11:18 Insulin Aspart (*Bkc) 100 Units/Ml SUB-Q 3 units Q6H JASON Administration Protocol Multi-Ingred Cream/Lotion/Oil/Oint 1 applic 02/29/24 09:00 03/01/24 07:55 Mineral Oil/White Petrolatum Ointment EACH EYE 1 applic Q12HR JASON Administration Naloxone HCl 0.1 mg 02/28/24 19:15 Naloxone Hcl 0.4 Mg/Ml Vial IV PUSH Q2M PRN Opiate Reversal Pantoprazole Sodium 40 mg 02/29/24 09:00 03/01/24 07:55 Pantoprazole Sodium Iv 40 Mg Vial IV PUSH 40 mg QAM JASON Administration Fluticasone/Salmeterol 2 puff 02/29/24 20:00 03/01/24 02:31 Fluticasone/Salmeterol 115-21 Mcg Inhaler 1 Puff INHALATION Not Given Q12HRT JASON Sodium Chloride 10 ml 02/29/24 06:00 03/01/24 13:27 Central Line Flush IV PUSH 10 ml Q8HR JASON Administration Sodium Chloride 20 ml 02/28/24 23:37 Central Line Flush IV PUSH PRN PRN after blood draws Radiology Results: ITS Impressions Lower Extremity CTA 02/28/24 14:54 IMPRESSION: 1. 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 2. Moderate stenosis of right popliteal artery. 3. Osteomyelitis involving first proximal and distal phalanges and head of first metatarsal. Abdomen X-Ray 02/28/24 21:31 IMPRESSION: 1. Nasogastric tube tip beyond the inferior margin of the radiograph, but at least to the distal stomach. Head CT 02/29/24 05:55 Impression: No intracranial hemorrhage, mass, or acute infarct. Stable chronic encephalomalacia in the high left parietal lobe. Atrophy and chronic white matter changes, as above. Chest/Abdomen/Pelvis CTA 02/29/24 06:02 Impression: Extensive right upper lobe consolidation and more mild right middle lobe consolidation, consistent with pneumonia. Consider aspiration pneumonia. Moderate to large right pleural effusion with complete atelectasis of the right lower lobe. Moderate left pleural effusion with minimal left basilar atelectasis. Small pericardial effusion. No definite acute abnormality in the abdomen or pelvis. Chronic compression fractures, as above. Chest X-Ray 03/01/24 06:25 Impression: 1: Persistent bilateral airspace disease, right greater than left. Differential diagnosis includes edema and pneumonia. 2: Small right pleural effusion. Labs Labs: Laboratory Results - last 24 hr 02/29/24 02/29/24 03/01/24 18:19 23:20 04:56 WBC RBC Hgb Hct MCV MCH MCHC RDW Plt Count MPV Immature Gran % (Auto) Neut % (Auto) Lymph % (Auto) [place] % (Auto) Eos % (Auto) Baso % (Auto) Lymph # (Auto) [place] # (Auto) Eos # (Auto) Baso # (Auto) Abs Immat Gran (auto) Absolute Neuts (auto) Absolute Nucleated RBC Nucleated RBC % Platelet Estimate Hypochromasia Anisocytosis Tessy Cells Schistocytes PT INR APTT 73.2 H Puncture Site ABG pH ABG pCO2 ABG pO2 ABG PO2/FiO2 Ratio ABG HCO3 ABG O2 Saturation ABG O2 Content ABG Base Excess A-a Gradient Oxyhemoglobin Carboxyhemoglobin Methemoglobin Reduced Hemoglobin Total Hemoglobin O2 Delivery Device O2 Liters/Min Minute Volume Vent Rate Vent Mode FiO2 Tidal Volume PEEP Peak Inspir Pressure Pressure Support Sodium Potassium Chloride Carbon Dioxide Anion Gap BUN Creatinine Estim Creat Clear Calc Estimated GFR Glucose POC Capillary Glucose 201 H 183 H Lactic Acid Calcium Magnesium Total Bilirubin AST ALT Alkaline Phosphatase C-Reactive Protein Total Protein Albumin Vancomycin Trough 03/01/24 03/01/24 03/01/24 05:06 05:09 05:10 WBC 22.1 H RBC 3.27 L Hgb 8.9 L Hct 28.3 L MCV 86.5 MCH 27.2 MCHC 31.4 L RDW 15.2 H Plt Count 445 H MPV 8.9 Immature Gran % (Auto) 1.9 H Neut % (Auto) 88.7 H Lymph % (Auto) 4.8 L [place] % (Auto) 4.4 Eos % (Auto) 0.0 Baso % (Auto) 0.2 Lymph # (Auto) 1.06 [place] # (Auto) 1.0 H Eos # (Auto) 0.0 Baso # (Auto) 0.1 Abs Immat Gran (auto) 0.41 H Absolute Neuts (auto) 19.6 H Absolute Nucleated RBC 0.000 Nucleated RBC % 0.0 Platelet Estimate Increased Hypochromasia 1+ Anisocytosis 1+ Tessy Cells 1+ Schistocytes None seen PT 18.8 H INR 1.5 APTT 74.5 H Puncture Site Right radial ABG pH 7.416 ABG pCO2 28.8 L ABG pO2 89.5 ABG PO2/FiO2 Ratio 2.24 ABG HCO3 18.1 L ABG O2 Saturation 97.1 ABG O2 Content 14.7 L ABG Base Excess -5.4 A-a Gradient 162.6 Oxyhemoglobin 96.0 Carboxyhemoglobin 1.2 Methemoglobin 0.3 Reduced Hemoglobin 2.5 Total Hemoglobin 10.8 L O2 Delivery Device Ventilator O2 Liters/Min Not Reportable Minute Volume Not Reportable Vent Rate 24 Vent Mode Cmv FiO2 40 Tidal Volume 450 PEEP 8 Peak Inspir Pressure Not Reportable Pressure Support Not Reportable Sodium 133 L Potassium 4.4 Chloride 105 Carbon Dioxide 20 L Anion Gap 8 BUN 22 H Creatinine 1.10 Estim Creat Clear Calc 67 Estimated GFR > 60 Glucose 207 H POC Capillary Glucose Lactic Acid 1.6 Calcium 7.0 L Magnesium 2.2 Total Bilirubin 0.3 AST 49 ALT 20 Alkaline Phosphatase 109 C-Reactive Protein 20.2 H Total Protein 6.0 L Albumin 2.5 L Vancomycin Trough 03/01/24 03/01/24 06:45 11:14 WBC RBC Hgb Hct MCV MCH MCHC RDW Plt Count MPV Immature Gran % (Auto) Neut % (Auto) Lymph % (Auto) [place] % (Auto) Eos % (Auto) Baso % (Auto) Lymph # (Auto) [place] # (Auto) Eos # (Auto) Baso # (Auto) Abs Immat Gran (auto) Absolute Neuts (auto) Absolute Nucleated RBC Nucleated RBC % Platelet Estimate Hypochromasia Anisocytosis Tessy Cells Schistocytes PT INR APTT Puncture Site ABG pH ABG pCO2 ABG pO2 ABG PO2/FiO2 Ratio ABG HCO3 ABG O2 Saturation ABG O2 Content ABG Base Excess A-a Gradient Oxyhemoglobin Carboxyhemoglobin Methemoglobin Reduced Hemoglobin Total Hemoglobin O2 Delivery Device O2 Liters/Min Minute Volume Vent Rate Vent Mode FiO2 Tidal Volume PEEP Peak Inspir Pressure Pressure Support Sodium Potassium Chloride Carbon Dioxide Anion Gap BUN Creatinine Estim Creat Clear Calc Estimated GFR Glucose POC Capillary Glucose 218 H Lactic Acid Calcium Magnesium Total Bilirubin AST ALT Alkaline Phosphatase C-Reactive Protein Total Protein Albumin Vancomycin Trough 15.3
[2024-03-01 18:18] LABS: Glucose Point of Care 236 mg/dl (65-105)
[2024-03-01] MEDS: FENTANYL 2,500MCG/NS250ML(*CRX 2,500 MCG/250 ML BAG 10 MCG IV CONT (21:37)
[2024-03-02] VITALS (30 sets, daily range): BP systolic 98–128; BP diastolic 45–60; PULSE 57–81; RESP 22–24; TEMP 36.6–37.2; O2SAT 96–100
[2024-03-02 00:34] LABS: Glucose Point of Care 234 mg/dl (65-105)
[2024-03-02] MEDS: ALBUMIN HUMAN 25% 25 GM/100 ML 100 ML IVPB (00:38)
[2024-03-02] MEDS: INSULIN ASPART (*BKC) 100 UNITS/ML SUB-Q ×4 (00:38→18:01)
[2024-03-02] MEDS: IPRATROPIUM 0.5 MG/ALBUTEROL SULFATE 2.5 MG AMPUL.NEB 3 ML INHALATION ×4 (02:02→19:35)
[2024-03-02] MEDS: VANCOMYCIN 1,500 MG/NS 500 ML 1,500 MG/500 ML BAG 250 MG IVPB ×2 (04:06→20:09)
[2024-03-02 04:45] LABS: Alveolar/Arterial O2 Gradient 90.8 mmHg; Base Excess ABG -2.1 mEq/l (+/-2.0); Carboxyhemoglobin 1.2 % THb (0-2.0); Fractional Inspired Oxygen 30 %; HCO3 ABG 20.6 mEq/l (22.0-26.0); Methemoglobin ABG 0.3 %THb (0-1.5); Oxygen Content ABG 11.8 %vol (16.0-22.0); Oxygen Saturation ABG 97.6 % (95.0-100.0); Oxyhemoglobin 96.1 % THb (90.0-100.0); PCO2 ABG 27.7 mmHg (35.0-45.0); PO2 ABG 90.6 mmHg (80.0-100.0); PO2 FiO2 Ratio Arterial Blood 3.02 %; Reduced Hemoglobin 2.4 %THb (0-5.0); Total Hemoglobin 8.6 g/dL (12.0-18.0)
[2024-03-02 04:47] LABS: Device VENTILATOR; Modified Allen's Test Pass; Site Drawn RIGHT RADIAL
[2024-03-02 04:48] LABS: Arterial Blood Gas PEEP 8 cmH2O; Arterial Blood Gas Tidal Volume 450 ml; Arterial Blood Gas Vent Mode CMV; Arterial Blood Gas Ventilator rate 24 /MIN
[2024-03-02 05:52] LABS: Basophils Percent Auto 0.2 % (0.2-1.2); Hematocrit 24.6 % (42.0-52.0); Hemoglobin 7.8 g/dL (14.0-18.0); Immature Granulocyte Absolute 0.19 K/mm3 (0.00-0.031); Immature Granulocyte Percent A 1.2 % (0-0.5); Lymphocytes Absolute Auto 1.09 K/mm3 (0.9-3.2); Mean Corpuscular HGB Conc 31.7 g/dl (32-36); Mean Corpuscular Hemoglobin 27.3 pg (26-34); Mean Platelet Volume 9.1 fl (7.4-10.4); Monocytes Absolute Auto 0.9 K/mm3 (0.1-0.6); Monocytes Percent Auto 5.6 % (2.6-8.5); Neutrophils Absolute Auto 13.4 K/mm3 (1.3-6.7); Platelet Count Result 373 k/mm3 (150-375); Red Blood Count 2.86 M/mm3 (4.6-6.20); White Blood Count 15.6 K/mm3 (4.5-10.0)
[2024-03-02] MEDS: MEROPENEM 1 GM/NS 100 ML 1 GM/100 ML BAG IVPB ×3 (05:55→22:18)
[2024-03-02] MEDS: CLINDAMYCIN 900 MG/D5W 50 ML 900 MG/50 ML PIGGYBACK 50 MG IVPB ×3 (05:55→20:14)
[2024-03-02] MEDS: HEPARIN SOD/D5W 100 UNITS/ML 25,000 UNITS/250 ML BAG 10 UNITS IV CONT (05:56)
[2024-03-02] MEDS: HYDROCORTISONE SODIUM SUCCINATE 100 MG/2 ML VIAL IV PUSH ×3 (05:56→22:17)
[2024-03-02] MEDS: CENTRAL LINE FLUSH 10 ML IV PUSH ×3 (05:57→22:18)
[2024-03-02 06:04] LABS: INR 1.8; Prothrombin Time 21.1 Seconds (11.1-14.7)
[2024-03-02 06:34] LABS: Alanine Aminotransferase 16 U/L (6-50); Albumin Level 3.2 g/dL (3.5-5.1); Alkaline Phosphatase 79 U/L (38-126); Anion Gap 10 mmol/L (4-12); Aspartate Amino Transferase 27 U/L (17-59); Bilirubin,Total 0.3 mg/dL (0.2-1.3); Blood Urea Nitrogen 37 mg/dL (9-20); CRP 8.3 mg/dL (<1.0); Calcium 7.6 mg/dL (8.4-10.2); Carbon Dioxide 18 mmol/L (22-30); Chloride 107 mmol/L (98-107); Estimated CRCL calculation 58 ml/min; Estimated Glomerular Filt Rate 55; Glucose 263 mg/dL (65-110); Magnesium 2.4 mg/dL (1.6-2.3); Potassium 4.2 mmol/L (3.4-5.0); Sodium 135 mmol/L (137-145)
[2024-03-02 07:04] LABS: Partial Thromboplastin Time 78.5 Seconds (22.3-36.8)
[2024-03-02] MEDS: MIDODRINE HCL 10 MG TABLET PO ×3 (08:31→17:09)
[2024-03-02] MEDS: ASPIRIN 81 MG CHEWABLE TABLET PO (08:31)
[2024-03-02] MEDS: ATORVASTATIN 40 MG TABLET 80 MG PO (08:31)
[2024-03-02] MEDS: INSULIN GLARGINE (*BKC) 100 UNITS/ML 10 UNITS SUB-Q (08:32)
--- NOTE | 2024-03-02 08:49 | PM.IMPN ---
Progress Note: A&P Assessment and Plan (1) Septic shock: Code(s): A41.9 - Sepsis, unspecified organism; R65.21 - Severe sepsis with septic shock Status: Acute (2) NSTEMI (non-ST elevated myocardial infarction): Code(s): I21.4 - Non-ST elevation (NSTEMI) myocardial infarction Status: Acute (3) Cardiac arrest: Code(s): I46.9 - Cardiac arrest, cause unspecified Status: Acute Plan 68 year old male past medical history of alcohol abuse, COPD, peripheral neuropathy, peripheral vascular disease, type 2 diabetes presented the ED on 02/28/2024 via EMS for gangrenous right foot infection with cellulitis. The right foot ganglion has had drainage and malodorous.CTA of the left lower extremity showed total occlusion of the right anterior and posterior tibial arteries and right peroneal artery with distal reconstitution. Moderate stenosis of the right popliteal artery and osteomyelitis involving the 1st proximal and distal phalanges and head of the 1st metatarsal. He was started on cefepime, metronidazole and vancomycin, surgery was consulted and offered [id number] amputation. He was admitted to the medical floor, after arriving to the medical floor a got tachycardic in the 150s and was having difficulty breathing. His O2 sats were 83% on room air was placed supplemental oxygen. He guarded to use the commode, dropped his O2 sats again the low 80s, was diaphoretic, was less responsive and a rapid response was called which was converted to a code blue. Patient was in PEA, was intubated by ER physician, central line was inserted and was started on Levophed. Patient was given 2 L IV fluid bolus and transferred to the ICU for further management. Cardiac arrest: Patient intubated sedated and on pressor support Unclear etiology at the moment Septic shock: on pressor support patient has been adequately fluid-resuscitated, c/w Levophed Started on stress dose steroids on vancomycin, meropenem, clindamycin Blood culture was negative of bacteria NSTEMI: Increasing troponins Appreciate cardiology help EKG showed sinus rhythm with T-wave changes in V1 to V5 -currently on heparin infusion for NSTEMI -will add aspirin and high-dose a statin -will hold Brilinta -will also hold beta-brayden, losartan which is home med, since he is hypotensive on vasopressors Gangrene of right foot: CTA showed peripheral arterial disease with total occlusion of the right anterior and posterior tibial arteries and right peroneal artery with distal reconstitution of peroneal artery. This extensive gangrene of the right foot with gas seen on CT of the foot. planed below-knee amputation on 02/29/2024 but given his cardiac arrest, NSTEMI and on pressors this has been deferred. Continue with antibiotic as mentioned above will do right below-knee amputation when patient further recovered from cardiac arrest. Type 2 diabetes mellitus: Currently on sliding scale insulin with Accu-Cheks Due to prophylaxis: On heparin drip Code status: Full Disposition: Pending improvement, continues to be in ICU Subjective Date/time seen: 03/02/24 08:49 Interval history: Patient is on mechanical ventilation, on sedation with fentanyl and Versed, titrate down Levophed 1-2 tody , afebrile, labs reviewed hb 7.8 Exam Narrative: General: Patient intubated and sedated no acute distress HEENT:, clear sclera Neck:? supple Respiratory:? Coarse breath sounds bilaterally, decreased at bases, adequate air entry Cardiac:? S1-S2 normal, regular rate and rhythm Abdomen:? Soft, nontender, nondistended, hypoactive bowel sounds Extremities:? Gangrenous right 1st toe down to the 1st metatarsal, erythema and swelling of the right foot. Posterior tibial and pedal pulses are not palpable Neuro:? Patient is intubated, sedated, able to open eyess Skin:? Patient has maceration of his perianal area, and states to pressure ulcer on his buttocks. Psych:? Unable to assess Objective Data Vital Signs Vital Signs: Vital Signs - 24 hr 03/01/24 09:10 03/01/24 09:15 03/01/24 09:45 Temperature Pulse Rate 82 77 83 Respiratory Rate 24 H Blood Pressure 94/48 L 105/49 L Pulse Oximetry Oxygen Delivery Fraction of Inspired Oxygen 03/01/24 09:30 03/01/24 10:00 03/01/24 11:01 Temperature 98.3 F Pulse Rate 83 80 92 Respiratory Rate 24 H 24 H Blood Pressure 111/50 L Pulse Oximetry 97 97 Oxygen Delivery Mechanical Ventilation Fraction of Inspired Oxygen 30 03/01/24 10:00 03/01/24 10:30 03/01/24 12:00 Temperature Pulse Rate 81 79 76 Respiratory Rate Blood Pressure 111/50 L 109/46 L 95/42 L Pulse Oximetry Oxygen Delivery Fraction of Inspired Oxygen 03/01/24 12:15 03/01/24 10:15 03/01/24 10:45 Temperature Pulse Rate 69 82 82 Respiratory Rate Blood Pressure 86/42 L 109/48 L 97/46 L Pulse Oximetry Oxygen Delivery Fraction of Inspired Oxygen 03/01/24 12:30 03/01/24 12:00 03/01/24 12:00 Temperature 98.5 F Pulse Rate 69 67 Respiratory Rate 24 H Blood Pressure 86/42 L 95/42 L Pulse Oximetry 98 Oxygen Delivery Fraction of Inspired Oxygen 30 03/01/24 12:00 03/01/24 12:00 03/01/24 10:00 Temperature Pulse Rate 67 76 80 Respiratory Rate 24 H 24 H Blood Pressure Pulse Oximetry 99 Oxygen Delivery Mechanical Ventilation Fraction of Inspired Oxygen 30 03/01/24 12:00 03/01/24 10:00 03/01/24 12:00 Temperature Pulse Rate 78 79 81 Respiratory Rate 24 H 24 H 24 H Blood Pressure Pulse Oximetry Oxygen Delivery Fraction of Inspired Oxygen 03/01/24 13:57 03/01/24 13:57 03/01/24 14:03 Temperature Pulse Rate 81 81 80 Respiratory Rate 24 H 24 H Blood Pressure Pulse Oximetry 97 Oxygen Delivery Mechanical Ventilation Fraction of Inspired Oxygen 30 03/01/24 14:00 03/01/24 14:00 03/01/24 19:55 Temperature 98.4 F Pulse Rate 87 87 80 Respiratory Rate 24 H 24 H Blood Pressure 87/40 L 107/48 L Pulse Oximetry 87 L Oxygen Delivery Fraction of Inspired Oxygen 03/01/24 16:14 03/01/24 16:00 03/01/24 13:45 Temperature Pulse Rate 81 97 93 Respiratory Rate 24 H Blood Pressure 111/47 L Pulse Oximetry 97 Oxygen Delivery Mechanical Ventilation Fraction of Inspired Oxygen 30 03/01/24 16:00 03/01/24 16:00 03/01/24 16:00 Temperature Pulse Rate 90 85 Respiratory Rate 24 H Blood Pressure Pulse Oximetry Oxygen Delivery Fraction of Inspired Oxygen 30 03/01/24 16:00 03/01/24 16:00 03/01/24 18:00 Temperature 98.5 F 98.4 F Pulse Rate 85 81 Respiratory Rate 24 H 24 H 24 H Blood Pressure 105/45 L 131/56 L Pulse Oximetry 85 L 97 78 L Oxygen Delivery Mechanical Ventilation Fraction of Inspired Oxygen 30 03/01/24 18:45 03/01/24 14:00 03/01/24 16:00 Temperature Pulse Rate 79 76 78 Respiratory Rate 24 H 24 H Blood Pressure 131/56 L Pulse Oximetry Oxygen Delivery Fraction of Inspired Oxygen 03/01/24 18:00 03/01/24 18:00 03/01/24 14:00 Temperature Pulse Rate 81 78 76 Respiratory Rate 24 H 24 H 24 H Blood Pressure Pulse Oximetry Oxygen Delivery Fraction of Inspired Oxygen 03/01/24 20:03 03/01/24 20:10 03/01/24 20:00 Temperature Pulse Rate 75 75 76 Respiratory Rate 24 H Blood Pressure 129/55 L Pulse Oximetry 97 Oxygen Delivery Mechanical Ventilation Fraction of Inspired Oxygen 30 03/01/24 20:15 03/01/24 20:30 03/01/24 20:45 Temperature Pulse Rate 75 75 76 Respiratory Rate Blood Pressure 126/58 L 128/58 L 130/59 L Pulse Oximetry Oxygen Delivery Fraction of Inspired Oxygen 03/01/24 21:00 03/01/24 21:37 03/01/24 21:37 Temperature Pulse Rate 78 81 81 Respiratory Rate 24 H 24 H Blood Pressure 131/58 L Pulse Oximetry Oxygen Delivery Fraction of Inspired Oxygen 03/01/24 20:00 03/01/24 20:00 03/01/24 20:00 Temperature 98.3 F Pulse Rate 76 76 76 Respiratory Rate 24 H 24 H 24 H Blood Pressure 129/55 L Pulse Oximetry 95 Oxygen Delivery Fraction of Inspired Oxygen 03/01/24 22:00 03/01/24 22:15 03/01/24 22:30 Temperature Pulse Rate 70 73 77 Respiratory Rate Blood Pressure 87/42 L 92/43 L 141/84 H Pulse Oximetry Oxygen Delivery Fraction of Inspired Oxygen 03/01/24 22:41 03/01/24 22:00 03/02/24 00:00 Temperature Pulse Rate 84 70 74 Respiratory Rate 24 H 24 H Blood Pressure Pulse Oximetry 96 Oxygen Delivery Mechanical Ventilation Fraction of Inspired Oxygen 30 03/01/24 22:00 03/02/24 00:00 03/01/24 22:45 Temperature Pulse Rate 70 74 86 Respiratory Rate 24 H 24 H Blood Pressure 129/65 Pulse Oximetry Oxygen Delivery Fraction of Inspired Oxygen 03/01/24 23:00 03/01/24 23:15 03/01/24 23:30 Temperature Pulse Rate 81 81 80 Respiratory Rate Blood Pressure 143/64 H 135/59 L 135/63 Pulse Oximetry Oxygen Delivery Fraction of Inspired Oxygen 03/01/24 23:45 03/02/24 00:00 03/01/24 20:00 Temperature Pulse Rate 79 81 Respiratory Rate Blood Pressure 127/55 L 128/59 L Pulse Oximetry Oxygen Delivery Mechanical Ventilation Fraction of Inspired Oxygen 30 03/01/24 20:00 03/02/24 02:02 03/02/24 02:02 Temperature Pulse Rate 67 67 Respiratory Rate 24 H Blood Pressure Pulse Oximetry 97 Oxygen Delivery Mechanical Ventilation Fraction of Inspired Oxygen 30 30 03/02/24 02:09 03/01/24 20:00 03/01/24 22:00 Temperature 98.3 F Pulse Rate 78 75 70 Respiratory Rate 24 H 24 H Blood Pressure 87/42 L Pulse Oximetry 96 Oxygen Delivery Fraction of Inspired Oxygen 03/02/24 00:00 03/02/24 00:00 03/02/24 00:00 Temperature 98.5 F Pulse Rate 81 Respiratory Rate 24 H Blood Pressure 128/59 L Pulse Oximetry 96 Oxygen Delivery Mechanical Ventilation Fraction of Inspired Oxygen 30 30 03/02/24 00:00 03/02/24 00:15 03/02/24 00:30 Temperature Pulse Rate 75 75 73 Respiratory Rate Blood Pressure 128/57 L 121/54 L Pulse Oximetry Oxygen Delivery Fraction of Inspired Oxygen 03/02/24 02:00 03/02/24 04:00 03/02/24 02:00 Temperature Pulse Rate 64 73 64 Respiratory Rate 24 H Blood Pressure 116/51 L 105/49 L Pulse Oximetry Oxygen Delivery Fraction of Inspired Oxygen 03/02/24 04:00 03/02/24 02:00 03/02/24 04:00 Temperature Pulse Rate 73 64 73 Respiratory Rate 24 H 24 H 24 H Blood Pressure Pulse Oximetry Oxygen Delivery Fraction of Inspired Oxygen 03/02/24 02:00 03/02/24 04:00 03/02/24 04:36 Temperature 98.6 F 98.6 F Pulse Rate 64 73 78 Respiratory Rate 24 H 24 H Blood Pressure 116/51 L 105/49 L Pulse Oximetry 98 97 98 Oxygen Delivery Mechanical Ventilation Fraction of Inspired Oxygen 30 03/02/24 04:00 03/02/24 04:00 03/02/24 07:14 Temperature Pulse Rate 66 Respiratory Rate Blood Pressure Pulse Oximetry 96 Oxygen Delivery Mechanical Ventilation Mechanical Ventilation Fraction of Inspired Oxygen 30 30 30 03/02/24 07:14 03/02/24 06:00 03/02/24 06:00 Temperature Pulse Rate 66 75 75 Respiratory Rate 24 H 24 H 24 H Blood Pressure Pulse Oximetry Oxygen Delivery Fraction of Inspired Oxygen 03/02/24 06:00 03/02/24 04:00 03/02/24 06:00 Temperature Pulse Rate 75 76 75 Respiratory Rate 24 H Blood Pressure 108/54 L 108/54 L Pulse Oximetry 98 Oxygen Delivery Fraction of Inspired Oxygen 03/01/24 22:00 03/02/24 02:00 03/02/24 06:00 Temperature Pulse Rate 70 65 75 Respiratory Rate Blood Pressure Pulse Oximetry Oxygen Delivery Fraction of Inspired Oxygen 03/02/24 07:33 03/02/24 07:33 03/02/24 08:00 Temperature Pulse Rate 67 67 Respiratory Rate 24 H Blood Pressure Pulse Oximetry 96 Oxygen Delivery Mechanical Ventilation Fraction of Inspired Oxygen 30 03/02/24 08:00 03/02/24 08:00 03/02/24 08:00 Temperature 98.5 F Pulse Rate 67 67 Respiratory Rate 24 H 24 H Blood Pressure 101/50 L Pulse Oximetry 96 96 Oxygen Delivery Mechanical Ventilation Fraction of Inspired Oxygen 30 30 03/02/24 08:00 03/02/24 08:00 03/02/24 08:21 Temperature Pulse Rate 67 67 67 Respiratory Rate 24 H 24 H Blood Pressure 101/50 L Pulse Oximetry Oxygen Delivery Fraction of Inspired Oxygen Intake/Output Intake/Output: Intake & Output 02/28/24 02/29/24 03/01/24 03/02/24 23:59 23:59 23:59 23:59 Intake Total 2144.8 7453.1 4725.3 1484.4 Output Total 1000 625 250 Balance 2144.8 6453.1 4100.3 1234.4 Meds/Results Medications: Active Medications Generic Name Dose Route Start Last Admin Trade Name Freq PRN Reason Stop Dose Admin Acetaminophen 500 mg 02/28/24 19:15 Acetaminophen 500 Mg Tablet PO Q6H PRN Pain Rated 1-3 Albuterol/Ipratropium 3 ml 02/29/24 02:00 03/02/24 07:14 Ipratropium 0.5 Mg/Albuterol Sulfate 2.5 Mg Ampul.Neb 3 Ml INHALATION 3 ml Q6HRT JASON Administration Aspirin 81 mg 03/01/24 08:00 03/02/24 08:31 Aspirin 81 Mg Chewable Tablet PO 81 mg DAILY@0800 JASON Administration Atorvastatin Calcium 80 mg 03/01/24 09:00 03/02/24 08:31 Atorvastatin 40 Mg Tablet PO 80 mg DAILY JASON Administration Dextrose 12.5 gm 02/28/24 19:23 Dextrose 50% 25 Gm/50 Ml Syringe IV PUSH PRN PRN Hypoglycemia Protocol Glucagon 1 mg 02/28/24 19:23 Glucagon For Inj 1 Mg Vial IM PRN PRN Hypoglycemia Protocol Glucose 15 gm 02/28/24 19:23 Glucose Oral Gel 15 Gm Of Glucse In 37.5 Gm Tube PO PRN PRN Hypoglycemia Protocol Heparin Sodium (Porcine) 4,000 units 02/29/24 05:31 Heparin Sodium 5,000 Units/Ml Vial IV PUSH PRN PRN aPTT less than 55 seconds Heparin Sodium (Porcine) 3,000 units 02/29/24 05:31 Heparin Sodium 5,000 Units/Ml Vial IV PUSH PRN PRN aPTT 55 - 70 seconds Hydrocortisone Sodium Succinate 100 mg 02/29/24 14:00 03/02/24 05:56 Hydrocortisone Sodium Succinate 100 Mg/2 Ml Vial IV PUSH 100 mg Q8HR JASON Administration Dextrose 1,000 mls @ 100 mls/hr 02/28/24 19:23 Dextrose 5% 1,000 Ml IVPB PRN PRN Hypoglycemia Protocol Fentanyl Citrate 2,500 mcg in 250 mls @ 10 mls/hr 02/28/24 21:20 03/02/24 08:00 Fentanyl 2,500 Mcg/Ns 250 Ml IV CONT 100 mcg/hr .Q25H JASON 10 mls/hr Titration Protocol 100 MCG/HR Midazolam HCl 100 mg in 100 mls @ 3 mls/hr 02/28/24 21:20 03/02/24 08:00 Versed 100 Mg/Ns 100 Ml IV CONT 3 mg/hr .[id number] JASON 3 mls/hr Titration Protocol 3 MG/HR Meropenem 1 gm in 100 mls @ 200 mls/hr 02/28/24 22:00 03/02/24 06:25 IVPB Infused Q8H JASON Infusion Clindamycin Phosphate 900 mg in 50 mls @ 50 mls/hr 02/28/24 21:00 03/02/24 06:55 Cleocin 900 Mg/D5w 50 Ml IVPB Infused Q8H JASON Infusion Norepinephrine Bitartrate 8 mg in 250 mls @ 3.75 mls/hr 02/28/24 23:05 03/02/24 08:21 Levophed 8 Mg/D5w 250 Ml IV CONT 1 mcg/min .Q24H JASON 1.88 mls/hr Titration Protocol 2 MCG/MIN Heparin Sodium/Dextrose 25,000 units in 250 mls @ 10 mls/hr 02/29/24 05:35 03/02/24 05:56 Heparin Sodium/D5w 100 Units/Ml IV CONT 1,000 units/hr .Q24H JASON 10 mls/hr Administration Protocol 1,000 UNITS/HR Vancomycin HCl 1,500 mg in 500 mls @ 250 mls/hr 02/29/24 14:00 03/02/24 06:06 Vancomycin 1,500 Mg/Ns 500 Ml IVPB Infused Q18H JASON Infusion Insulin Aspart 3 - 6 units 03/01/24 00:00 03/02/24 06:56 Insulin Aspart (*Bkc) 100 Units/Ml SUB-Q 4 units Q6H JASON Administration Protocol Insulin Glargine 10 units 03/02/24 09:00 03/02/24 08:32 Insulin Glargine (*Bkc) 100 Units/Ml SUB-Q 10 units DAILY JASON Administration Midodrine 10 mg 03/02/24 09:00 03/02/24 08:31 Midodrine Hcl 10 Mg Tablet PO 10 mg TID JASON Administration Multi-Ingred Cream/Lotion/Oil/Oint 1 applic 02/29/24 09:00 03/01/24 21:41 Mineral Oil/White Petrolatum Ointment EACH EYE 1 applic Q12HR JASON Administration Naloxone HCl 0.1 mg 02/28/24 19:15 Naloxone Hcl 0.4 Mg/Ml Vial IV PUSH Q2M PRN Opiate Reversal Pantoprazole Sodium 40 mg 03/02/24 09:00 Pantoprazole Sodium Iv 40 Mg Vial IV PUSH Q12HR JASON Fluticasone/Salmeterol 2 puff 02/29/24 20:00 03/01/24 02:31 Fluticasone/Salmeterol 115-21 Mcg Inhaler 1 Puff INHALATION Not Given Q12HRT JASON Sodium Chloride 10 ml 02/29/24 06:00 03/02/24 05:57 Central Line Flush IV PUSH 10 ml Q8HR JASON Administration Sodium Chloride 20 ml 02/28/24 23:37 Central Line Flush IV PUSH PRN PRN after blood draws Radiology Results: ITS Impressions Lower Extremity CTA 02/28/24 14:54 IMPRESSION: 1. 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 2. Moderate stenosis of right popliteal artery. 3. Osteomyelitis involving first proximal and distal phalanges and head of first metatarsal. Head CT 02/29/24 05:55 Impression: No intracranial hemorrhage, mass, or acute infarct. Stable chronic encephalomalacia in the high left parietal lobe. Atrophy and chronic white matter changes, as above. Chest/Abdomen/Pelvis CTA 02/29/24 06:02 Impression: Extensive right upper lobe consolidation and more mild right middle lobe consolidation, consistent with pneumonia. Consider aspiration pneumonia. Moderate to large right pleural effusion with complete atelectasis of the right lower lobe. Moderate left pleural effusion with minimal left basilar atelectasis. Small pericardial effusion. No definite acute abnormality in the abdomen or pelvis. Chronic compression fractures, as above. Chest X-Ray 03/02/24 06:22 Impression: Probable moderate layering right pleural effusion. Correlate for underlying atelectasis/edema versus pneumonia. Left lung clear. Support tubes, as above. Labs Labs: Laboratory Results - last 24 hr 03/01/24 03/01/24 03/02/24 11:14 18:16 00:30 WBC RBC Hgb Hct MCV MCH MCHC RDW Plt Count MPV Immature Gran % (Auto) Neut % (Auto) Lymph % (Auto) [place] % (Auto) Eos % (Auto) Baso % (Auto) Lymph # (Auto) [place] # (Auto) Eos # (Auto) Baso # (Auto) Abs Immat Gran (auto) Absolute Neuts (auto) Absolute Nucleated RBC Nucleated RBC % PT INR APTT Puncture Site ABG pH ABG pCO2 ABG pO2 ABG PO2/FiO2 Ratio ABG HCO3 ABG O2 Saturation ABG O2 Content ABG Base Excess A-a Gradient Oxyhemoglobin Carboxyhemoglobin Methemoglobin Reduced Hemoglobin Total Hemoglobin O2 Delivery Device O2 Liters/Min Minute Volume Vent Rate Vent Mode FiO2 Tidal Volume PEEP Peak Inspir Pressure Pressure Support Sodium Potassium Chloride Carbon Dioxide Anion Gap BUN Creatinine Estim Creat Clear Calc Estimated GFR Glucose POC Capillary Glucose 218 H 236 H 234 H Lactic Acid Calcium Magnesium Total Bilirubin AST ALT Alkaline Phosphatase C-Reactive Protein Total Protein Albumin 03/02/24 03/02/24 04:37 05:44 WBC 15.6 H RBC 2.86 L Hgb 7.8 L Hct 24.6 L MCV 86.0 MCH 27.3 MCHC 31.7 L RDW 15.0 H Plt Count 373 MPV 9.1 Immature Gran % (Auto) 1.2 H Neut % (Auto) 86.0 H Lymph % (Auto) 7.0 L [place] % (Auto) 5.6 Eos % (Auto) 0.0 Baso % (Auto) 0.2 Lymph # (Auto) 1.09 [place] # (Auto) 0.9 H Eos # (Auto) 0.0 Baso # (Auto) 0.0 Abs Immat Gran (auto) 0.19 H Absolute Neuts (auto) 13.4 H Absolute Nucleated RBC 0.000 Nucleated RBC % 0.0 PT 21.1 H INR 1.8 APTT 78.5 H Puncture Site Right radial ABG pH 7.490 H ABG pCO2 27.7 L ABG pO2 90.6 ABG PO2/FiO2 Ratio 3.02 ABG HCO3 20.6 L ABG O2 Saturation 97.6 ABG O2 Content 11.8 L ABG Base Excess -2.1 A-a Gradient 90.8 Oxyhemoglobin 96.1 Carboxyhemoglobin 1.2 Methemoglobin 0.3 Reduced Hemoglobin 2.4 Total Hemoglobin 8.6 L O2 Delivery Device Ventilator O2 Liters/Min Not Reportable Minute Volume Not Reportable Vent Rate 24 Vent Mode Cmv FiO2 30 Tidal Volume 450 PEEP 8 Peak Inspir Pressure Not Reportable Pressure Support Not Reportable Sodium 135 L Potassium 4.2 Chloride 107 Carbon Dioxide 18 L Anion Gap 10 BUN 37 H D Creatinine 1.30 Estim Creat Clear Calc 58 Estimated GFR 55 L Glucose 263 H POC Capillary Glucose Lactic Acid 1.0 Calcium 7.6 L Magnesium 2.4 H Total Bilirubin 0.3 AST 27 ALT 16 Alkaline Phosphatase 79 C-Reactive Protein 8.3 H Total Protein 7.0 Albumin 3.2 L
[2024-03-02] MEDS: PANTOPRAZOLE SODIUM IV 40 MG VIAL IV PUSH ×2 (08:52→20:14)
[2024-03-02] MEDS: MINERAL OIL/WHITE PETROLATUM OINTMENT 1 APPLIC EACH EYE ×2 (08:52→20:14)
--- NOTE | 2024-03-02 09:28 | WPDINTPN ---
Progress Note: A&P Assessment and Plan (1) Cardiac arrest with pulseless electrical activity: Code(s): I46.9 - Cardiac arrest, cause unspecified Status: Acute Assessment and Plan: Cardiac arrest, secondary to unknown etiology. Possible aspiration pneumonia, NSTEMI, hypoxia, septic shock, infection -see code blue sheet for the details -patient currently intubated, vasopressors for blood pressure support -appreciate cardiology following the patient 02/29/2024 echocardiogram Summary 1. Technically difficult study with limited views. 2. Left ventricular chamber dimension is normal. 3. Left ventricular systolic function is mildly reduced, estimated at 45-50%. The apex appears to be hypokinetic. 4. There is mildly increased left ventricular wall thickness. 5. The left ventricular diastolic function is grade I diastolic dysfunction. 6. Right ventricular systolic function is normal. 7. Left atrial chamber dimension is moderately enlarged. 8. There is mild to moderate tricuspid valve regurgitation. 9. There is small anterior pericardial effusion. (2) Septic shock: Code(s): A41.9 - Sepsis, unspecified organism; R65.21 - Severe sepsis with septic shock Status: Acute Assessment and Plan: Patient in shock, likely related to the gangrene, aspiration pneumonia, status post cardiac arrest 02/28/2024: Blood cultures have been obtained and pending -lactic acid has normalized -patient has been adequately fluid-resuscitated -wean Levophed to maintain MAP > 65 mmHg for adequate end organ perfusion -continue stress dose steroids for pneumonia and shock -Added midodrine -status post albumin for intravascular volume expansion (3) NSTEMI (non-ST elevated myocardial infarction): Code(s): I21.4 - Non-ST elevation (NSTEMI) myocardial infarction Status: Acute Assessment and Plan: Increasing troponins, -EKG showed sinus rhythm with T-wave changes in V1 to V5 -appreciate cardiology evaluation and recommendation -Continue aspirin and high-dose a statin -will hold Brilinta -will also hold beta-brayden, losartan which is home med, since he is hypotensive on vasopressors -03/02currently on heparin infusion for NSTEMI, discussed with Cardiology, heparin will be discontinued since his been 48 hours and also that he has dropped his hemoglobin. (4) Gangrene of right foot: Code(s): I96 - Gangrene, not elsewhere classified Status: Acute Assessment and Plan: CTA showed peripheral arterial disease with total occlusion of the right anterior and posterior tibial arteries and right peroneal artery with distal reconstitution of peroneal artery. This extensive gangrene of the right foot with gas seen on CT of the foot. -pre following the patient, plan was to do a below-knee amputation on 02/29/2024 but given his cardiac arrest, NSTEMI and on pressors this has been deferred. Discussed with surgery -continue antibiotics for necrotizing gas gangrene. Patient on meropenem, clindamycin and vancomycin which was started on 02/28/2024 -amputation likely early next week per surgery (5) Osteomyelitis of toe of right foot: Code(s): M86.9 - Osteomyelitis, unspecified Status: Chronic Assessment and Plan: As above (6) Peripheral vascular disease: Code(s): I73.9 - Peripheral vascular disease, unspecified Status: Chronic Assessment and Plan: Patient has history of peripheral vascular disease, coronary artery disease -started on aspirin, patient will require Brilinta since he had a STEMI in 2020 but currently holding Brilinta due to possible amputation (7) Type 2 diabetes mellitus: Qualifiers: 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 complication status: with other specified complication 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 use Qualified Code(s): E11.69 - Type 2 diabetes mellitus with other specified complication; Z79.4 - assisted (current) use of insulin Code(s): E11.9 - Type 2 diabetes mellitus without complications Status: Acute Assessment and Plan: Currently on sliding scale insulin, Accu-Cheks Patient does take Lantus and metformin at home, if patient is hyperglycemic will add Lantus (8) Chronic obstructive pulmonary disease: Code(s): J44.9 - Chronic obstructive pulmonary disease, unspecified Status: Acute Assessment and Plan: Continue DuoNebs -continue Symbicort Plan DVT prophylaxis: Heparin infusion Stress ulcer prophylaxis: Protonix Nutrition: Will increase tube feeds Code Status: Full code Critical Care Time Spent: 33 minutes -discussed with surgery and Cardiology Due to a high probability of clinically significant, life threatening deterioration, the patient required my highest level of preparedness to intervene emergently and I personally spent this critical care time directly and personally managing the patient. This critical care time included obtaining a history; examining the patient; pulse oximetry; ordering and review of studies; arranging urgent treatment with development of a management plan; evaluation of patient's response to treatment; frequent reassessment; and discussions with other providers. It was exclusive of separately billable procedures and treating other patients and teaching time. Please see Assessment and Plan section and the rest of the note for further information on patient assessment and treatment This dictation may have been done utilizing a voice recognition system. Attempts have been made to correct errors. However, there may be uncorrected grammatical, spelling, and recognitions errors present. Subjective Date/time seen: 03/02/24 09:28 Interval history: Reason for consult: Status post PEA arrest, right foot gangrene with cellulitis, shock 03/02/2024: Patient seen examined the ICU, remains intubated on CMV mode of ventilation, peep of 8, 30% FiO2. Sedated with fentanyl and Versed infusion, does not open his eyes or follow simple commands. Remains on Levophed on 1-2 mcg/min. Urine output has been low, patient is not febrile. Patient dropped his hemoglobin to 7.8 from 8.9 yesterday. Remains on heparin infusion NSTEMI Review of Systems Review of Systems: ROS unobtainable: Yes unobtainable due to endotracheal tube, unobtainable due to medical condition and unobtainable due to mental status Exam Narrative: General: Patient intubated and sedated no acute distress HEENT:, pupils are equal and reactive from a sclera is clear Neck:? supple Respiratory:? Coarse breath sounds bilaterally, decreased at bases, adequate air entry Cardiac:? S1-S2 normal, regular rate and rhythm Abdomen:? Soft, nontender, nondistended, hypoactive bowel sounds Extremities:? Gangrenous right 1st toe down to the 1st metatarsal, dorsum of the foot and all the way to approximately the heel on the medial aspect and plantar aspect of the foot over the 1st metatarsal. Purulent drainage and foul order. There is also erythema and swelling of the right foot. Posterior tibial and pedal pulses are not palpable Neuro:? Patient is intubated, sedated, opens eyes but does not follow simple commands Skin:? Patient has maceration of his perianal area, and states to pressure ulcer on his buttocks. Psych:? Unable to assess at this time Objective Data Vital Signs Vital Signs: Vital Signs - 24 hr 03/01/24 09:45 03/01/24 09:30 03/01/24 10:00 Temperature 98.3 F Pulse Rate 83 83 80 Respiratory Rate 24 H 24 H 24 H Blood Pressure 111/50 L Pulse Oximetry 97 Oxygen Delivery Fraction of Inspired Oxygen 03/01/24 11:01 03/01/24 10:00 03/01/24 10:30 Temperature Pulse Rate 92 81 79 Respiratory Rate Blood Pressure 111/50 L 109/46 L Pulse Oximetry 97 Oxygen Delivery Mechanical Ventilation Fraction of Inspired Oxygen 30 03/01/24 12:00 03/01/24 12:15 03/01/24 10:15 Temperature Pulse Rate 76 69 82 Respiratory Rate Blood Pressure 95/42 L 86/42 L 109/48 L Pulse Oximetry Oxygen Delivery Fraction of Inspired Oxygen 03/01/24 10:45 03/01/24 12:30 03/01/24 12:00 Temperature Pulse Rate 82 69 Respiratory Rate Blood Pressure 97/46 L 86/42 L Pulse Oximetry Oxygen Delivery Fraction of Inspired Oxygen 30 03/01/24 12:00 03/01/24 12:00 03/01/24 12:00 Temperature 98.5 F Pulse Rate 67 67 76 Respiratory Rate 24 H 24 H Blood Pressure 95/42 L Pulse Oximetry 98 99 Oxygen Delivery Mechanical Ventilation Fraction of Inspired Oxygen 30 03/01/24 10:00 03/01/24 12:00 03/01/24 10:00 Temperature Pulse Rate 80 78 79 Respiratory Rate 24 H 24 H 24 H Blood Pressure Pulse Oximetry Oxygen Delivery Fraction of Inspired Oxygen 03/01/24 12:00 03/01/24 13:57 03/01/24 13:57 Temperature Pulse Rate 81 81 81 Respiratory Rate 24 H 24 H Blood Pressure Pulse Oximetry 97 Oxygen Delivery Mechanical Ventilation Fraction of Inspired Oxygen 30 03/01/24 14:03 03/01/24 14:00 03/01/24 14:00 Temperature 98.4 F Pulse Rate 80 87 87 Respiratory Rate 24 H 24 H Blood Pressure 87/40 L 107/48 L Pulse Oximetry 87 L Oxygen Delivery Fraction of Inspired Oxygen 03/01/24 19:55 03/01/24 16:14 03/01/24 16:00 Temperature Pulse Rate 80 81 97 Respiratory Rate 24 H Blood Pressure 111/47 L Pulse Oximetry 97 Oxygen Delivery Mechanical Ventilation Fraction of Inspired Oxygen 30 03/01/24 13:45 03/01/24 16:00 03/01/24 16:00 Temperature Pulse Rate 93 90 85 Respiratory Rate 24 H 24 H Blood Pressure Pulse Oximetry Oxygen Delivery Fraction of Inspired Oxygen 03/01/24 16:00 03/01/24 16:00 03/01/24 16:00 Temperature 98.5 F Pulse Rate 85 81 Respiratory Rate 24 H 24 H Blood Pressure 105/45 L Pulse Oximetry 85 L 97 Oxygen Delivery Mechanical Ventilation Fraction of Inspired Oxygen 30 30 03/01/24 18:00 03/01/24 18:45 03/01/24 14:00 Temperature 98.4 F Pulse Rate 79 76 Respiratory Rate 24 H 24 H Blood Pressure 131/56 L 131/56 L Pulse Oximetry 78 L Oxygen Delivery Fraction of Inspired Oxygen 03/01/24 16:00 03/01/24 18:00 03/01/24 18:00 Temperature Pulse Rate 78 81 78 Respiratory Rate 24 H 24 H 24 H Blood Pressure Pulse Oximetry Oxygen Delivery Fraction of Inspired Oxygen 03/01/24 14:00 03/01/24 20:03 03/01/24 20:10 Temperature Pulse Rate 76 75 75 Respiratory Rate 24 H 24 H Blood Pressure Pulse Oximetry 97 Oxygen Delivery Mechanical Ventilation Fraction of Inspired Oxygen 30 03/01/24 20:00 03/01/24 20:15 03/01/24 20:30 Temperature Pulse Rate 76 75 75 Respiratory Rate Blood Pressure 129/55 L 126/58 L 128/58 L Pulse Oximetry Oxygen Delivery Fraction of Inspired Oxygen 03/01/24 20:45 03/01/24 21:00 03/01/24 21:37 Temperature Pulse Rate 76 78 81 Respiratory Rate 24 H Blood Pressure 130/59 L 131/58 L Pulse Oximetry Oxygen Delivery Fraction of Inspired Oxygen 03/01/24 21:37 03/01/24 20:00 03/01/24 20:00 Temperature Pulse Rate 81 76 76 Respiratory Rate 24 H 24 H 24 H Blood Pressure Pulse Oximetry Oxygen Delivery Fraction of Inspired Oxygen 03/01/24 20:00 03/01/24 22:00 03/01/24 22:15 Temperature 98.3 F Pulse Rate 76 70 73 Respiratory Rate 24 H Blood Pressure 129/55 L 87/42 L 92/43 L Pulse Oximetry 95 Oxygen Delivery Fraction of Inspired Oxygen 03/01/24 22:30 03/01/24 22:41 03/01/24 22:00 Temperature Pulse Rate 77 84 70 Respiratory Rate 24 H Blood Pressure 141/84 H Pulse Oximetry 96 Oxygen Delivery Mechanical Ventilation Fraction of Inspired Oxygen 30 03/02/24 00:00 03/01/24 22:00 03/02/24 00:00 Temperature Pulse Rate 74 70 74 Respiratory Rate 24 H 24 H 24 H Blood Pressure Pulse Oximetry Oxygen Delivery Fraction of Inspired Oxygen 03/01/24 22:45 03/01/24 23:00 03/01/24 23:15 Temperature Pulse Rate 86 81 81 Respiratory Rate Blood Pressure 129/65 143/64 H 135/59 L Pulse Oximetry Oxygen Delivery Fraction of Inspired Oxygen 03/01/24 23:30 03/01/24 23:45 03/02/24 00:00 Temperature Pulse Rate 80 79 81 Respiratory Rate Blood Pressure 135/63 127/55 L 128/59 L Pulse Oximetry Oxygen Delivery Fraction of Inspired Oxygen 03/01/24 20:00 03/01/24 20:00 03/02/24 02:02 Temperature Pulse Rate 67 Respiratory Rate Blood Pressure Pulse Oximetry 97 Oxygen Delivery Mechanical Ventilation Mechanical Ventilation Fraction of Inspired Oxygen 30 30 30 03/02/24 02:02 03/02/24 02:09 03/01/24 20:00 Temperature Pulse Rate 67 78 75 Respiratory Rate 24 H 24 H Blood Pressure Pulse Oximetry Oxygen Delivery Fraction of Inspired Oxygen 03/01/24 22:00 03/02/24 00:00 03/02/24 00:00 Temperature 98.3 F 98.5 F Pulse Rate 70 81 Respiratory Rate 24 H 24 H Blood Pressure 87/42 L 128/59 L Pulse Oximetry 96 96 Oxygen Delivery Mechanical Ventilation Fraction of Inspired Oxygen 30 03/02/24 00:00 03/02/24 00:00 03/02/24 00:15 Temperature Pulse Rate 75 75 Respiratory Rate Blood Pressure 128/57 L Pulse Oximetry Oxygen Delivery Fraction of Inspired Oxygen 30 03/02/24 00:30 03/02/24 02:00 03/02/24 04:00 Temperature Pulse Rate 73 64 73 Respiratory Rate Blood Pressure 121/54 L 116/51 L 105/49 L Pulse Oximetry Oxygen Delivery Fraction of Inspired Oxygen 03/02/24 02:00 03/02/24 04:00 03/02/24 02:00 Temperature Pulse Rate 64 73 64 Respiratory Rate 24 H 24 H 24 H Blood Pressure Pulse Oximetry Oxygen Delivery Fraction of Inspired Oxygen 03/02/24 04:00 03/02/24 02:00 03/02/24 04:00 Temperature 98.6 F 98.6 F Pulse Rate 73 64 73 Respiratory Rate 24 H 24 H 24 H Blood Pressure 116/51 L 105/49 L Pulse Oximetry 98 97 Oxygen Delivery Fraction of Inspired Oxygen 03/02/24 04:36 03/02/24 04:00 03/02/24 04:00 Temperature Pulse Rate 78 Respiratory Rate Blood Pressure Pulse Oximetry 98 Oxygen Delivery Mechanical Ventilation Mechanical Ventilation Fraction of Inspired Oxygen 30 30 30 03/02/24 07:14 03/02/24 07:14 03/02/24 06:00 Temperature Pulse Rate 66 66 75 Respiratory Rate 24 H 24 H Blood Pressure Pulse Oximetry 96 Oxygen Delivery Mechanical Ventilation Fraction of Inspired Oxygen 30 03/02/24 06:00 03/02/24 06:00 03/02/24 04:00 Temperature Pulse Rate 75 75 76 Respiratory Rate 24 H Blood Pressure 108/54 L Pulse Oximetry Oxygen Delivery Fraction of Inspired Oxygen 03/02/24 06:00 03/01/24 22:00 03/02/24 02:00 Temperature Pulse Rate 75 70 65 Respiratory Rate 24 H Blood Pressure 108/54 L Pulse Oximetry 98 Oxygen Delivery Fraction of Inspired Oxygen 03/02/24 06:00 03/02/24 07:33 03/02/24 07:33 Temperature Pulse Rate 75 67 Respiratory Rate 24 H Blood Pressure Pulse Oximetry 96 Oxygen Delivery Mechanical Ventilation Fraction of Inspired Oxygen 30 03/02/24 08:00 03/02/24 08:00 03/02/24 08:00 Temperature Pulse Rate 67 67 Respiratory Rate 24 H Blood Pressure Pulse Oximetry 96 Oxygen Delivery Mechanical Ventilation Fraction of Inspired Oxygen 30 30 03/02/24 08:00 03/02/24 08:00 03/02/24 08:00 Temperature 98.5 F Pulse Rate 67 67 67 Respiratory Rate 24 H 24 H 24 H Blood Pressure 101/50 L Pulse Oximetry 96 Oxygen Delivery Fraction of Inspired Oxygen 03/02/24 08:21 Temperature Pulse Rate 67 Respiratory Rate Blood Pressure 101/50 L Pulse Oximetry Oxygen Delivery Fraction of Inspired Oxygen Intake/Output Intake/Output: Intake & Output 02/28/24 02/29/24 03/01/24 03/02/24 23:59 23:59 23:59 23:59 Intake Total 2144.8 7453.1 4725.3 1484.4 Output Total 1000 625 250 Balance 2144.8 6453.1 4100.3 1234.4 Meds/Results Medications: Active Medications Generic Name Dose Route Start Last Admin Trade Name Freq PRN Reason Stop Dose Admin Acetaminophen 500 mg 02/28/24 19:15 Acetaminophen 500 Mg Tablet PO Q6H PRN Pain Rated 1-3 Albuterol/Ipratropium 3 ml 02/29/24 02:00 03/02/24 07:14 Ipratropium 0.5 Mg/Albuterol Sulfate 2.5 Mg Ampul.Neb 3 Ml INHALATION 3 ml Q6HRT JASON Administration Aspirin 81 mg 03/01/24 08:00 03/02/24 08:31 Aspirin 81 Mg Chewable Tablet PO 81 mg DAILY@0800 JASON Administration Atorvastatin Calcium 80 mg 03/01/24 09:00 03/02/24 08:31 Atorvastatin 40 Mg Tablet PO 80 mg DAILY JASON Administration Dextrose 12.5 gm 02/28/24 19:23 Dextrose 50% 25 Gm/50 Ml Syringe IV PUSH PRN PRN Hypoglycemia Protocol Glucagon 1 mg 02/28/24 19:23 Glucagon For Inj 1 Mg Vial IM PRN PRN Hypoglycemia Protocol Glucose 15 gm 02/28/24 19:23 Glucose Oral Gel 15 Gm Of Glucse In 37.5 Gm Tube PO PRN PRN Hypoglycemia Protocol Heparin Sodium (Porcine) 4,000 units 02/29/24 05:31 Heparin Sodium 5,000 Units/Ml Vial IV PUSH PRN PRN aPTT less than 55 seconds Heparin Sodium (Porcine) 3,000 units 02/29/24 05:31 Heparin Sodium 5,000 Units/Ml Vial IV PUSH PRN PRN aPTT 55 - 70 seconds Hydrocortisone Sodium Succinate 100 mg 02/29/24 14:00 03/02/24 05:56 Hydrocortisone Sodium Succinate 100 Mg/2 Ml Vial IV PUSH 100 mg Q8HR JASON Administration Dextrose 1,000 mls @ 100 mls/hr 02/28/24 19:23 Dextrose 5% 1,000 Ml IVPB PRN PRN Hypoglycemia Protocol Fentanyl Citrate 2,500 mcg in 250 mls @ 10 mls/hr 02/28/24 21:20 03/02/24 08:00 Fentanyl 2,500 Mcg/Ns 250 Ml IV CONT 100 mcg/hr .Q25H JASON 10 mls/hr Titration Protocol 100 MCG/HR Midazolam HCl 100 mg in 100 mls @ 3 mls/hr 02/28/24 21:20 03/02/24 08:00 Versed 100 Mg/Ns 100 Ml IV CONT 3 mg/hr .[id number] JASON 3 mls/hr Titration Protocol 3 MG/HR Meropenem 1 gm in 100 mls @ 200 mls/hr 02/28/24 22:00 03/02/24 06:25 IVPB Infused Q8H JASON Infusion Clindamycin Phosphate 900 mg in 50 mls @ 50 mls/hr 02/28/24 21:00 03/02/24 06:55 Cleocin 900 Mg/D5w 50 Ml IVPB Infused Q8H JASON Infusion Norepinephrine Bitartrate 8 mg in 250 mls @ 3.75 mls/hr 02/28/24 23:05 03/02/24 08:21 Levophed 8 Mg/D5w 250 Ml IV CONT 1 mcg/min .Q24H JASON 1.88 mls/hr Titration Protocol 2 MCG/MIN Heparin Sodium/Dextrose 25,000 units in 250 mls @ 10 mls/hr 02/29/24 05:35 03/02/24 05:56 Heparin Sodium/D5w 100 Units/Ml IV CONT 1,000 units/hr .Q24H JASON 10 mls/hr Administration Protocol 1,000 UNITS/HR Vancomycin HCl 1,500 mg in 500 mls @ 250 mls/hr 02/29/24 14:00 03/02/24 06:06 Vancomycin 1,500 Mg/Ns 500 Ml IVPB Infused Q18H JASON Infusion Insulin Aspart 3 - 6 units 03/01/24 00:00 03/02/24 06:56 Insulin Aspart (*Bkc) 100 Units/Ml SUB-Q 4 units Q6H JASON Administration Protocol Insulin Glargine 10 units 03/02/24 09:00 03/02/24 08:32 Insulin Glargine (*Bkc) 100 Units/Ml SUB-Q 10 units DAILY JASON Administration Midodrine 10 mg 03/02/24 09:00 03/02/24 08:31 Midodrine Hcl 10 Mg Tablet PO 10 mg TID JASON Administration Multi-Ingred Cream/Lotion/Oil/Oint 1 applic 02/29/24 09:00 03/02/24 08:52 Mineral Oil/White Petrolatum Ointment EACH EYE 1 applic Q12HR JASON Administration Naloxone HCl 0.1 mg 02/28/24 19:15 Naloxone Hcl 0.4 Mg/Ml Vial IV PUSH Q2M PRN Opiate Reversal Pantoprazole Sodium 40 mg 03/02/24 09:00 03/02/24 08:52 Pantoprazole Sodium Iv 40 Mg Vial IV PUSH 40 mg Q12HR JASON Administration Fluticasone/Salmeterol 2 puff 02/29/24 20:00 03/01/24 02:31 Fluticasone/Salmeterol 115-21 Mcg Inhaler 1 Puff INHALATION Not Given Q12HRT JASON Sodium Chloride 10 ml 02/29/24 06:00 03/02/24 05:57 Central Line Flush IV PUSH 10 ml Q8HR JASON Administration Sodium Chloride 20 ml 02/28/24 23:37 Central Line Flush IV PUSH PRN PRN after blood draws Radiology Results: ITS Impressions Lower Extremity CTA 02/28/24 14:54 IMPRESSION: 1. 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 2. Moderate stenosis of right popliteal artery. 3. Osteomyelitis involving first proximal and distal phalanges and head of first metatarsal. Head CT 02/29/24 05:55 Impression: No intracranial hemorrhage, mass, or acute infarct. Stable chronic encephalomalacia in the high left parietal lobe. Atrophy and chronic white matter changes, as above. Chest/Abdomen/Pelvis CTA 02/29/24 06:02 Impression: Extensive right upper lobe consolidation and more mild right middle lobe consolidation, consistent with pneumonia. Consider aspiration pneumonia. Moderate to large right pleural effusion with complete atelectasis of the right lower lobe. Moderate left pleural effusion with minimal left basilar atelectasis. Small pericardial effusion. No definite acute abnormality in the abdomen or pelvis. Chronic compression fractures, as above. Chest X-Ray 03/02/24 06:22 Impression: Probable moderate layering right pleural effusion. Correlate for underlying atelectasis/edema versus pneumonia. Left lung clear. Support tubes, as above. Labs Labs: Laboratory Results - last 24 hr 03/01/24 03/01/24 03/02/24 11:14 18:16 00:30 WBC RBC Hgb Hct MCV MCH MCHC RDW Plt Count MPV Immature Gran % (Auto) Neut % (Auto) Lymph % (Auto) [place] % (Auto) Eos % (Auto) Baso % (Auto) Lymph # (Auto) [place] # (Auto) Eos # (Auto) Baso # (Auto) Abs Immat Gran (auto) Absolute Neuts (auto) Absolute Nucleated RBC Nucleated RBC % PT INR APTT Puncture Site ABG pH ABG pCO2 ABG pO2 ABG PO2/FiO2 Ratio ABG HCO3 ABG O2 Saturation ABG O2 Content ABG Base Excess A-a Gradient Oxyhemoglobin Carboxyhemoglobin Methemoglobin Reduced Hemoglobin Total Hemoglobin O2 Delivery Device O2 Liters/Min Minute Volume Vent Rate Vent Mode FiO2 Tidal Volume PEEP Peak Inspir Pressure Pressure Support Sodium Potassium Chloride Carbon Dioxide Anion Gap BUN Creatinine Estim Creat Clear Calc Estimated GFR Glucose POC Capillary Glucose 218 H 236 H 234 H Lactic Acid Calcium Magnesium Total Bilirubin AST ALT Alkaline Phosphatase C-Reactive Protein Total Protein Albumin 03/02/24 03/02/24 04:37 05:44 WBC 15.6 H RBC 2.86 L Hgb 7.8 L Hct 24.6 L MCV 86.0 MCH 27.3 MCHC 31.7 L RDW 15.0 H Plt Count 373 MPV 9.1 Immature Gran % (Auto) 1.2 H Neut % (Auto) 86.0 H Lymph % (Auto) 7.0 L [place] % (Auto) 5.6 Eos % (Auto) 0.0 Baso % (Auto) 0.2 Lymph # (Auto) 1.09 [place] # (Auto) 0.9 H Eos # (Auto) 0.0 Baso # (Auto) 0.0 Abs Immat Gran (auto) 0.19 H Absolute Neuts (auto) 13.4 H Absolute Nucleated RBC 0.000 Nucleated RBC % 0.0 PT 21.1 H INR 1.8 APTT 78.5 H Puncture Site Right radial ABG pH 7.490 H ABG pCO2 27.7 L ABG pO2 90.6 ABG PO2/FiO2 Ratio 3.02 ABG HCO3 20.6 L ABG O2 Saturation 97.6 ABG O2 Content 11.8 L ABG Base Excess -2.1 A-a Gradient 90.8 Oxyhemoglobin 96.1 Carboxyhemoglobin 1.2 Methemoglobin 0.3 Reduced Hemoglobin 2.4 Total Hemoglobin 8.6 L O2 Delivery Device Ventilator O2 Liters/Min Not Reportable Minute Volume Not Reportable Vent Rate 24 Vent Mode Cmv FiO2 30 Tidal Volume 450 PEEP 8 Peak Inspir Pressure Not Reportable Pressure Support Not Reportable Sodium 135 L Potassium 4.2 Chloride 107 Carbon Dioxide 18 L Anion Gap 10 BUN 37 H D Creatinine 1.30 Estim Creat Clear Calc 58 Estimated GFR 55 L Glucose 263 H POC Capillary Glucose Lactic Acid 1.0 Calcium 7.6 L Magnesium 2.4 H Total Bilirubin 0.3 AST 27 ALT 16 Alkaline Phosphatase 79 C-Reactive Protein 8.3 H Total Protein 7.0 Albumin 3.2 L Quality VTE Prophylaxis VTE prophylaxis: pharmacologic ordered
--- NOTE | 2024-03-02 09:36 | P.PNCA_ITS ---
Progress Note: A&P Assessment and Plan (1) Cardiac arrest: Code(s): I46.9 - Cardiac arrest, cause unspecified Status: Acute (2) NSTEMI (non-ST elevated myocardial infarction): Code(s): I21.4 - Non-ST elevation (NSTEMI) myocardial infarction Status: Acute Plan Clinically unchanged. Patient with type 2 myocardial infarction because of cardiac arrest likely triggered by aspiration. Will discontinue heparin today after 48 hours of treatment. Pressors are being weaned. Anticipate BKA sometime this coming week Gabriel Eason MD [facility] Subjective Date/time seen: Date of service: 03/02/24 09:36 Interval history: Follow-up visit in this 68-year-old man with: Episode of PE a arrest working diagnosis is aspiration event resulting in arrest and type 2 myocardial infarction. Patient has known history of coronary artery disease with emergency RCA intervention being performed in 2020 in the setting of acute ST-elevation DC. patient did have significant stenosis in a couple of marginal branches of the circumflex artery according to the chart at that time. He was not compliant with follow-up of his coronary disease in the office has had not been seen since that intervention. Patient is now intubated in the ICU sedated and of course unresponsive. 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 Intubated /unresponsive sedated Exam Const: Other: Unkempt white male appearing considerably older than his stated age intubated sedated on mechanical ventilator support HENMT: Mouth: Yes moist mucous membranes Other: OETT in place Eyes: Sclera: sclerae normal Neck: Neck: supple and no JVD Resp: Other: Breath sounds are relatively clear with anterior auscultation with patient on the ventilator Cardio: Rate: regular rate Rhythm: regular rhythm Heart sounds: no murmurs Other: No apparent murmur or gallop Urinary Catheter: Urinary Catheter: patent and draining Skin: General skin exam: normal color Neuro: Other: Sedated on the ventilator Extrem: Other: Right foot is wrapped in gauze not on wrapped for examination, no peripheral edema Objective Data Vital Signs Vital Signs: Vital Signs - 24 hr 03/01/24 09:45 10/19/24 10:00 03/01/24 11:01 Temperature 36.8 C Pulse Rate 83 80 92 Respiratory Rate 24 H 24 H Blood Pressure 111/50 L Pulse Oximetry 97 97 Oxygen Delivery Mechanical Ventilation Fraction of Inspired Oxygen 30 03/01/24 10:00 03/01/24 10:30 03/01/24 12:00 Temperature Pulse Rate 81 79 76 Respiratory Rate Blood Pressure 111/50 L 109/46 L 95/42 L Pulse Oximetry Oxygen Delivery Fraction of Inspired Oxygen 03/01/24 12:15 03/01/24 10:15 03/01/24 10:45 Temperature Pulse Rate 69 82 82 Respiratory Rate Blood Pressure 86/42 L 109/48 L 97/46 L Pulse Oximetry Oxygen Delivery Fraction of Inspired Oxygen 03/01/24 12:30 03/01/24 12:00 03/01/24 12:00 Temperature 36.9 C Pulse Rate 69 67 Respiratory Rate 24 H Blood Pressure 86/42 L 95/42 L Pulse Oximetry 98 Oxygen Delivery Fraction of Inspired Oxygen 30 03/01/24 12:00 03/01/24 12:00 03/01/24 10:00 Temperature Pulse Rate 67 76 80 Respiratory Rate 24 H 24 H Blood Pressure Pulse Oximetry 99 Oxygen Delivery Mechanical Ventilation Fraction of Inspired Oxygen 30 03/01/24 12:00 03/01/24 10:00 03/01/24 12:00 Temperature Pulse Rate 78 79 81 Respiratory Rate 24 H 24 H 24 H Blood Pressure Pulse Oximetry Oxygen Delivery Fraction of Inspired Oxygen 03/01/24 13:57 03/01/24 13:57 03/01/24 14:03 Temperature Pulse Rate 81 81 80 Respiratory Rate 24 H 24 H Blood Pressure Pulse Oximetry 97 Oxygen Delivery Mechanical Ventilation Fraction of Inspired Oxygen 30 03/01/24 14:00 03/01/24 14:00 03/01/24 19:55 Temperature 36.9 C Pulse Rate 87 87 80 Respiratory Rate 24 H 24 H Blood Pressure 87/40 L 107/48 L Pulse Oximetry 87 L Oxygen Delivery Fraction of Inspired Oxygen 03/01/24 16:14 03/01/24 16:00 03/01/24 13:45 Temperature Pulse Rate 81 97 93 Respiratory Rate 24 H Blood Pressure 111/47 L Pulse Oximetry 97 Oxygen Delivery Mechanical Ventilation Fraction of Inspired Oxygen 30 03/01/24 16:00 03/01/24 16:00 03/01/24 16:00 Temperature Pulse Rate 90 85 Respiratory Rate 24 H Blood Pressure Pulse Oximetry Oxygen Delivery Fraction of Inspired Oxygen 30 03/01/24 16:00 03/01/24 16:00 03/01/24 18:00 Temperature 36.9 C 36.9 C Pulse Rate 85 81 Respiratory Rate 24 H 24 H 24 H Blood Pressure 105/45 L 131/56 L Pulse Oximetry 85 L 97 78 L Oxygen Delivery Mechanical Ventilation Fraction of Inspired Oxygen 30 03/01/24 18:45 03/01/24 14:00 03/01/24 16:00 Temperature Pulse Rate 79 76 78 Respiratory Rate 24 H 24 H Blood Pressure 131/56 L Pulse Oximetry Oxygen Delivery Fraction of Inspired Oxygen 03/01/24 18:00 03/01/24 18:00 03/01/24 14:00 Temperature Pulse Rate 81 78 76 Respiratory Rate 24 H 24 H 24 H Blood Pressure Pulse Oximetry Oxygen Delivery Fraction of Inspired Oxygen 03/01/24 20:03 03/01/24 20:10 03/01/24 20:00 Temperature Pulse Rate 75 75 76 Respiratory Rate 24 H Blood Pressure 129/55 L Pulse Oximetry 97 Oxygen Delivery Mechanical Ventilation Fraction of Inspired Oxygen 30 03/01/24 20:15 03/01/24 20:30 03/01/24 20:45 Temperature Pulse Rate 75 75 76 Respiratory Rate Blood Pressure 126/58 L 128/58 L 130/59 L Pulse Oximetry Oxygen Delivery Fraction of Inspired Oxygen 03/01/24 21:00 03/01/24 21:37 03/01/24 21:37 Temperature Pulse Rate 78 81 81 Respiratory Rate 24 H 24 H Blood Pressure 131/58 L Pulse Oximetry Oxygen Delivery Fraction of Inspired Oxygen 03/01/24 20:00 03/01/24 20:00 03/01/24 20:00 Temperature 36.8 C Pulse Rate 76 76 76 Respiratory Rate 24 H 24 H 24 H Blood Pressure 129/55 L Pulse Oximetry 95 Oxygen Delivery Fraction of Inspired Oxygen 03/01/24 22:00 03/01/24 22:15 03/01/24 22:30 Temperature Pulse Rate 70 73 77 Respiratory Rate Blood Pressure 87/42 L 92/43 L 141/84 H Pulse Oximetry Oxygen Delivery Fraction of Inspired Oxygen 03/01/24 22:41 03/01/24 22:00 03/02/24 00:00 Temperature Pulse Rate 84 70 74 Respiratory Rate 24 H 24 H Blood Pressure Pulse Oximetry 96 Oxygen Delivery Mechanical Ventilation Fraction of Inspired Oxygen 30 03/01/24 22:00 03/02/24 00:00 03/01/24 22:45 Temperature Pulse Rate 70 74 86 Respiratory Rate 24 H 24 H Blood Pressure 129/65 Pulse Oximetry Oxygen Delivery Fraction of Inspired Oxygen 03/01/24 23:00 03/01/24 23:15 03/01/24 23:30 Temperature Pulse Rate 81 81 80 Respiratory Rate Blood Pressure 143/64 H 135/59 L 135/63 Pulse Oximetry Oxygen Delivery Fraction of Inspired Oxygen 03/01/24 23:45 03/02/24 00:00 03/01/24 20:00 Temperature Pulse Rate 79 81 Respiratory Rate Blood Pressure 127/55 L 128/59 L Pulse Oximetry Oxygen Delivery Mechanical Ventilation Fraction of Inspired Oxygen 30 03/01/24 20:00 03/02/24 02:02 03/02/24 02:02 Temperature Pulse Rate 67 67 Respiratory Rate 24 H Blood Pressure Pulse Oximetry 97 Oxygen Delivery Mechanical Ventilation Fraction of Inspired Oxygen 30 30 03/02/24 02:09 03/01/24 20:00 03/01/24 22:00 Temperature 36.8 C Pulse Rate 78 75 70 Respiratory Rate 24 H 24 H Blood Pressure 87/42 L Pulse Oximetry 96 Oxygen Delivery Fraction of Inspired Oxygen 03/02/24 00:00 03/02/24 00:00 03/02/24 00:00 Temperature 36.9 C Pulse Rate 81 Respiratory Rate 24 H Blood Pressure 128/59 L Pulse Oximetry 96 Oxygen Delivery Mechanical Ventilation Fraction of Inspired Oxygen 30 30 03/02/24 00:00 03/02/24 00:15 03/02/24 00:30 Temperature Pulse Rate 75 75 73 Respiratory Rate Blood Pressure 128/57 L 121/54 L Pulse Oximetry Oxygen Delivery Fraction of Inspired Oxygen 03/02/24 02:00 03/02/24 04:00 03/02/24 02:00 Temperature Pulse Rate 64 73 64 Respiratory Rate 24 H Blood Pressure 116/51 L 105/49 L Pulse Oximetry Oxygen Delivery Fraction of Inspired Oxygen 03/02/24 04:00 03/02/24 02:00 03/02/24 04:00 Temperature Pulse Rate 73 64 73 Respiratory Rate 24 H 24 H 24 H Blood Pressure Pulse Oximetry Oxygen Delivery Fraction of Inspired Oxygen 03/02/24 02:00 03/02/24 04:00 03/02/24 04:36 Temperature 37.0 C 37.0 C Pulse Rate 64 73 78 Respiratory Rate 24 H 24 H Blood Pressure 116/51 L 105/49 L Pulse Oximetry 98 97 98 Oxygen Delivery Mechanical Ventilation Fraction of Inspired Oxygen 30 03/02/24 04:00 03/02/24 04:00 03/02/24 07:14 Temperature Pulse Rate 66 Respiratory Rate Blood Pressure Pulse Oximetry 96 Oxygen Delivery Mechanical Ventilation Mechanical Ventilation Fraction of Inspired Oxygen 30 30 30 03/02/24 07:14 03/02/24 06:00 03/02/24 06:00 Temperature Pulse Rate 66 75 75 Respiratory Rate 24 H 24 H 24 H Blood Pressure Pulse Oximetry Oxygen Delivery Fraction of Inspired Oxygen 03/02/24 06:00 03/02/24 04:00 03/02/24 06:00 Temperature Pulse Rate 75 76 75 Respiratory Rate 24 H Blood Pressure 108/54 L 108/54 L Pulse Oximetry 98 Oxygen Delivery Fraction of Inspired Oxygen 03/01/24 22:00 03/02/24 02:00 03/02/24 06:00 Temperature Pulse Rate 70 65 75 Respiratory Rate Blood Pressure Pulse Oximetry Oxygen Delivery Fraction of Inspired Oxygen 03/02/24 07:33 03/02/24 07:33 03/02/24 08:00 Temperature Pulse Rate 67 67 Respiratory Rate 24 H Blood Pressure Pulse Oximetry 96 Oxygen Delivery Mechanical Ventilation Fraction of Inspired Oxygen 30 03/02/24 08:00 03/02/24 08:00 03/02/24 08:00 Temperature 36.9 C Pulse Rate 67 67 Respiratory Rate 24 H 24 H Blood Pressure 101/50 L Pulse Oximetry 96 96 Oxygen Delivery Mechanical Ventilation Fraction of Inspired Oxygen 30 30 03/02/24 08:00 03/02/24 08:00 03/02/24 08:21 Temperature Pulse Rate 67 67 67 Respiratory Rate 24 H 24 H Blood Pressure 101/50 L Pulse Oximetry Oxygen Delivery Fraction of Inspired Oxygen Intake/Output Intake/Output: Intake & Output 02/28/24 02/29/24 03/01/24 03/02/24 23:59 23:59 23:59 23:59 Intake Total 2144.8 7453.1 4725.3 1484.4 Output Total 1000 625 250 Balance 2144.8 6453.1 4100.3 1234.4 Meds/Results Medications: Active Medications Generic Name Dose Route Start Last Admin Trade Name Freq PRN Reason Stop Dose Admin Acetaminophen 500 mg 02/28/24 19:15 Acetaminophen 500 Mg Tablet PO Q6H PRN Pain Rated 1-3 Albuterol/Ipratropium 3 ml 02/29/24 02:00 03/02/24 07:14 Ipratropium 0.5 Mg/Albuterol Sulfate 2.5 Mg Ampul.Neb 3 Ml INHALATION 3 ml Q6HRT JASON Administration Aspirin 81 mg 03/01/24 08:00 03/02/24 08:31 Aspirin 81 Mg Chewable Tablet PO 81 mg DAILY@0800 JASON Administration Atorvastatin Calcium 80 mg 03/01/24 09:00 03/02/24 08:31 Atorvastatin 40 Mg Tablet PO 80 mg DAILY JASON Administration Dextrose 12.5 gm 02/28/24 19:23 Dextrose 50% 25 Gm/50 Ml Syringe IV PUSH PRN PRN Hypoglycemia Protocol Glucagon 1 mg 02/28/24 19:23 Glucagon For Inj 1 Mg Vial IM PRN PRN Hypoglycemia Protocol Glucose 15 gm 02/28/24 19:23 Glucose Oral Gel 15 Gm Of Glucse In 37.5 Gm Tube PO PRN PRN Hypoglycemia Protocol Hydrocortisone Sodium Succinate 100 mg 02/29/24 14:00 03/02/24 05:56 Hydrocortisone Sodium Succinate 100 Mg/2 Ml Vial IV PUSH 100 mg Q8HR JASON Administration Dextrose 1,000 mls @ 100 mls/hr 02/28/24 19:23 Dextrose 5% 1,000 Ml IVPB PRN PRN Hypoglycemia Protocol Fentanyl Citrate 2,500 mcg in 250 mls @ 10 mls/hr 02/28/24 21:20 03/02/24 08:00 Fentanyl 2,500 Mcg/Ns 250 Ml IV CONT 100 mcg/hr .Q25H JASON 10 mls/hr Titration Protocol 100 MCG/HR Midazolam HCl 100 mg in 100 mls @ 3 mls/hr 02/28/24 21:20 03/02/24 08:00 Versed 100 Mg/Ns 100 Ml IV CONT 3 mg/hr .[id number] JASON 3 mls/hr Titration Protocol 3 MG/HR Meropenem 1 gm in 100 mls @ 200 mls/hr 02/28/24 22:00 03/02/24 06:25 IVPB Infused Q8H JASON Infusion Clindamycin Phosphate 900 mg in 50 mls @ 50 mls/hr 02/28/24 21:00 03/02/24 06:55 Cleocin 900 Mg/D5w 50 Ml IVPB Infused Q8H JASON Infusion Norepinephrine Bitartrate 8 mg in 250 mls @ 3.75 mls/hr 02/28/24 23:05 03/02/24 08:21 Levophed 8 Mg/D5w 250 Ml IV CONT 1 mcg/min .Q24H JASON 1.88 mls/hr Titration Protocol 2 MCG/MIN Vancomycin HCl 1,500 mg in 500 mls @ 250 mls/hr 02/29/24 14:00 03/02/24 06:06 Vancomycin 1,500 Mg/Ns 500 Ml IVPB Infused Q18H JASON Infusion Insulin Aspart 3 - 6 units 03/01/24 00:00 03/02/24 06:56 Insulin Aspart (*Bkc) 100 Units/Ml SUB-Q 4 units Q6H JASON Administration Protocol Insulin Glargine 10 units 03/02/24 09:00 03/02/24 08:32 Insulin Glargine (*Bkc) 100 Units/Ml SUB-Q 10 units DAILY JASON Administration Midodrine 10 mg 03/02/24 09:00 03/02/24 08:31 Midodrine Hcl 10 Mg Tablet PO 10 mg TID JASON Administration Multi-Ingred Cream/Lotion/Oil/Oint 1 applic 02/29/24 09:00 03/02/24 08:52 Mineral Oil/White Petrolatum Ointment EACH EYE 1 applic Q12HR JASON Administration Naloxone HCl 0.1 mg 02/28/24 19:15 Naloxone Hcl 0.4 Mg/Ml Vial IV PUSH Q2M PRN Opiate Reversal Pantoprazole Sodium 40 mg 03/02/24 09:00 03/02/24 08:52 Pantoprazole Sodium Iv 40 Mg Vial IV PUSH 40 mg Q12HR JASON Administration Fluticasone/Salmeterol 2 puff 02/29/24 20:00 03/01/24 02:31 Fluticasone/Salmeterol 115-21 Mcg Inhaler 1 Puff INHALATION Not Given Q12HRT JASON Sodium Chloride 10 ml 02/29/24 06:00 03/02/24 05:57 Central Line Flush IV PUSH 10 ml Q8HR JASON Administration Sodium Chloride 20 ml 10/17/24 23:37 Central Line Flush IV PUSH PRN PRN after blood draws Radiology Results: ITS Impressions Lower Extremity CTA 02/28/24 14:54 IMPRESSION: 1. 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 2. Moderate stenosis of right popliteal artery. 3. Osteomyelitis involving first proximal and distal phalanges and head of first metatarsal. Head CT 02/29/24 05:55 Impression: No intracranial hemorrhage, mass, or acute infarct. Stable chronic encephalomalacia in the high left parietal lobe. Atrophy and chronic white matter changes, as above. Chest/Abdomen/Pelvis CTA 02/29/24 06:02 Impression: Extensive right upper lobe consolidation and more mild right middle lobe consolidation, consistent with pneumonia. Consider aspiration pneumonia. Moderate to large right pleural effusion with complete atelectasis of the right lower lobe. Moderate left pleural effusion with minimal left basilar atelectasis. Small pericardial effusion. No definite acute abnormality in the abdomen or pelvis. Chronic compression fractures, as above. Chest X-Ray 03/02/24 06:22 Impression: Probable moderate layering right pleural effusion. Correlate for underlying atelectasis/edema versus pneumonia. Left lung clear. Support tubes, as above. Labs Labs: Laboratory Results - last 24 hr 03/01/24 03/01/24 03/02/24 11:14 18:16 00:30 WBC RBC Hgb Hct MCV MCH MCHC RDW Plt Count MPV Immature Gran % (Auto) Neut % (Auto) Lymph % (Auto) [place] % (Auto) Eos % (Auto) Baso % (Auto) Lymph # (Auto) [place] # (Auto) Eos # (Auto) Baso # (Auto) Abs Immat Gran (auto) Absolute Neuts (auto) Absolute Nucleated RBC Nucleated RBC % PT INR APTT Puncture Site ABG pH ABG pCO2 ABG pO2 ABG PO2/FiO2 Ratio ABG HCO3 ABG O2 Saturation ABG O2 Content ABG Base Excess A-a Gradient Oxyhemoglobin Carboxyhemoglobin Methemoglobin Reduced Hemoglobin Total Hemoglobin O2 Delivery Device O2 Liters/Min Minute Volume Vent Rate Vent Mode FiO2 Tidal Volume PEEP Peak Inspir Pressure Pressure Support Sodium Potassium Chloride Carbon Dioxide Anion Gap BUN Creatinine Estim Creat Clear Calc Estimated GFR Glucose POC Capillary Glucose 218 H 236 H 234 H Lactic Acid Calcium Magnesium Total Bilirubin AST ALT Alkaline Phosphatase C-Reactive Protein Total Protein Albumin 03/02/24 03/02/24 04:37 05:44 WBC 15.6 H RBC 2.86 L Hgb 7.8 L Hct 24.6 L MCV 86.0 MCH 27.3 MCHC 31.7 L RDW 15.0 H Plt Count 373 MPV 9.1 Immature Gran % (Auto) 1.2 H Neut % (Auto) 86.0 H Lymph % (Auto) 7.0 L [place] % (Auto) 5.6 Eos % (Auto) 0.0 Baso % (Auto) 0.2 Lymph # (Auto) 1.09 [place] # (Auto) 0.9 H Eos # (Auto) 0.0 Baso # (Auto) 0.0 Abs Immat Gran (auto) 0.19 H Absolute Neuts (auto) 13.4 H Absolute Nucleated RBC 0.000 Nucleated RBC % 0.0 PT 21.1 H INR 1.8 APTT 78.5 H Puncture Site Right radial ABG pH 7.490 H ABG pCO2 27.7 L ABG pO2 90.6 ABG PO2/FiO2 Ratio 3.02 ABG HCO3 20.6 L ABG O2 Saturation 97.6 ABG O2 Content 11.8 L ABG Base Excess -2.1 A-a Gradient 90.8 Oxyhemoglobin 96.1 Carboxyhemoglobin 1.2 Methemoglobin 0.3 Reduced Hemoglobin 2.4 Total Hemoglobin 8.6 L O2 Delivery Device Ventilator O2 Liters/Min Not Reportable Minute Volume Not Reportable Vent Rate 24 Vent Mode Cmv FiO2 30 Tidal Volume 450 PEEP 8 Peak Inspir Pressure Not Reportable Pressure Support Not Reportable Sodium 135 L Potassium 4.2 Chloride 107 Carbon Dioxide 18 L Anion Gap 10 BUN 37 H D Creatinine 1.30 Estim Creat Clear Calc 58 Estimated GFR 55 L Glucose 263 H POC Capillary Glucose Lactic Acid 1.0 Calcium 7.6 L Magnesium 2.4 H Total Bilirubin 0.3 AST 27 ALT 16 Alkaline Phosphatase 79 C-Reactive Protein 8.3 H Total Protein 7.0 Albumin 3.2 L
[2024-03-02] MEDS: FUROSEMIDE INJ 40 MG/4 ML VIAL IV PUSH (10:46)
[2024-03-02] MEDS: METOCLOPRAMIDE HCL INJ 10 MG/2 ML VIAL IV PUSH ×2 (10:46→18:21)
[2024-03-02 11:56] LABS: Glucose Point of Care 237 mg/dl (65-105)
[2024-03-02] MEDS: MIDAZOLAM 100MG/NS 100ML(*CRX) 100 MG/100 ML BAG IV CONT (13:19)
--- NOTE | 2024-03-02 17:07 | PM.PNGS ---
Progress Note: A&P Assessment and Plan (1) Gangrene of right foot: Code(s): I96 - Gangrene, not elsewhere classified Status: Acute Assessment and Plan: Gangrenous nonsalvageable right foot. I discussed with Dr. Edmond. Probably the patient dense right foot is contributing to his infection and sepsis do some degree although pneumonia would seem to be his primary problem. This is most likely aspiration pneumonia. He is improving and possibly can proceed with right below-knee amputation in 2-3 days. If sepsis seems to be worsening, could always go ahead with guillotine type amputation and then come back later for traditional posterior flap BKA. Continue to follow for now. (2) Peripheral vascular disease: Code(s): I73.9 - Peripheral vascular disease, unspecified Status: Chronic Assessment and Plan: All 3 distal lower extremity vessels occluded with minimal reconstitution of the peroneal artery by CTA. Vascular supply to below knee area looks adequate and patient does not have a flexion contracture of the knee. Should be able to to heal a below-knee amputation in. (3) Cardiac arrest with pulseless electrical activity: Code(s): I46.9 - Cardiac arrest, cause unspecified Status: Acute Assessment and Plan: Continues to recover. (4) Acute respiratory failure with hypoxia: Code(s): J96.01 - Acute respiratory failure with hypoxia Status: Acute Assessment and Plan: Improving on ventilator (5) NSTEMI (non-ST elevated myocardial infarction): Code(s): I21.4 - Non-ST elevation (NSTEMI) myocardial infarction Status: Acute Assessment and Plan: Anticoagulation has been stopped. Okay to proceed with surgery from cardiac standpoint. (6) Septic shock: Code(s): A41.9 - Sepsis, unspecified organism; R65.21 - Severe sepsis with septic shock Status: Acute Assessment and Plan: Nearly off the Levophed. Improving. Subjective Subjective Date/Time Seen: 03/02/24 17:07 Interval history: Remains sedated on mechanical ventilator. Still receiving low-dose of Levophed. Heparin drip has been stopped. Only needed to be continued for 48 hours. Review of Systems Review of Systems: ROS unobtainable: Yes unobtainable due to endotracheal tube and unobtainable due to medical condition Exam Const: General: patient obtunded Extrem: Right lower extremity: knee (No change from admission), lower leg (No change from admission) and foot (Bandaged, has foul odor) Objective Data Vital Signs Vital Signs: Vital Signs - 24 hr 03/01/24 19:55 03/01/24 18:00 03/01/24 18:45 Temperature 36.9 C Pulse Rate 80 79 Respiratory Rate 24 H 24 H Blood Pressure 131/56 L 131/56 L Pulse Oximetry 78 L Oxygen Delivery Fraction of Inspired Oxygen 03/01/24 18:00 03/01/24 18:00 03/01/24 20:03 Temperature Pulse Rate 81 78 75 Respiratory Rate 24 H 24 H Blood Pressure Pulse Oximetry 97 Oxygen Delivery Mechanical Ventilation Fraction of Inspired Oxygen 30 03/01/24 20:10 03/01/24 20:00 03/01/24 20:15 Temperature Pulse Rate 75 76 75 Respiratory Rate 24 H Blood Pressure 129/55 L 126/58 L Pulse Oximetry Oxygen Delivery Fraction of Inspired Oxygen 03/01/24 20:30 03/01/24 20:45 03/01/24 21:00 Temperature Pulse Rate 75 76 78 Respiratory Rate Blood Pressure 128/58 L 130/59 L 131/58 L Pulse Oximetry Oxygen Delivery Fraction of Inspired Oxygen 03/01/24 21:37 03/01/24 21:37 03/01/24 20:00 Temperature Pulse Rate 81 81 76 Respiratory Rate 24 H 24 H 24 H Blood Pressure Pulse Oximetry Oxygen Delivery Fraction of Inspired Oxygen 03/01/24 20:00 03/01/24 20:00 03/01/24 22:00 Temperature 36.8 C Pulse Rate 76 76 70 Respiratory Rate 24 H 24 H Blood Pressure 129/55 L 87/42 L Pulse Oximetry 95 Oxygen Delivery Fraction of Inspired Oxygen 03/01/24 22:15 03/01/24 22:30 03/01/24 22:41 Temperature Pulse Rate 73 77 84 Respiratory Rate Blood Pressure 92/43 L 141/84 H Pulse Oximetry 96 Oxygen Delivery Mechanical Ventilation Fraction of Inspired Oxygen 30 03/01/24 22:00 03/02/24 00:00 03/01/24 22:00 Temperature Pulse Rate 70 74 70 Respiratory Rate 24 H 24 H 24 H Blood Pressure Pulse Oximetry Oxygen Delivery Fraction of Inspired Oxygen 03/02/24 00:00 03/01/24 22:45 03/01/24 23:00 Temperature Pulse Rate 74 86 81 Respiratory Rate 24 H Blood Pressure 129/65 143/64 H Pulse Oximetry Oxygen Delivery Fraction of Inspired Oxygen 03/01/24 23:15 03/01/24 23:30 03/01/24 23:45 Temperature Pulse Rate 81 80 79 Respiratory Rate Blood Pressure 135/59 L 135/63 127/55 L Pulse Oximetry Oxygen Delivery Fraction of Inspired Oxygen 03/02/24 00:00 03/01/24 20:00 03/01/24 20:00 Temperature Pulse Rate 81 Respiratory Rate Blood Pressure 128/59 L Pulse Oximetry Oxygen Delivery Mechanical Ventilation Fraction of Inspired Oxygen 30 30 03/02/24 02:02 03/02/24 02:02 03/02/24 02:09 Temperature Pulse Rate 67 67 78 Respiratory Rate 24 H 24 H Blood Pressure Pulse Oximetry 97 Oxygen Delivery Mechanical Ventilation Fraction of Inspired Oxygen 30 03/01/24 20:00 03/01/24 22:00 03/02/24 00:00 Temperature 36.8 C 36.9 C Pulse Rate 75 70 81 Respiratory Rate 24 H 24 H Blood Pressure 87/42 L 128/59 L Pulse Oximetry 96 96 Oxygen Delivery Fraction of Inspired Oxygen 03/02/24 00:00 03/02/24 00:00 03/02/24 00:00 Temperature Pulse Rate 75 Respiratory Rate Blood Pressure Pulse Oximetry Oxygen Delivery Mechanical Ventilation Fraction of Inspired Oxygen 30 30 03/02/24 00:15 03/02/24 00:30 03/02/24 02:00 Temperature Pulse Rate 75 73 64 Respiratory Rate Blood Pressure 128/57 L 121/54 L 116/51 L Pulse Oximetry Oxygen Delivery Fraction of Inspired Oxygen 03/02/24 04:00 03/02/24 02:00 03/02/24 04:00 Temperature Pulse Rate 73 64 73 Respiratory Rate 24 H 24 H Blood Pressure 105/49 L Pulse Oximetry Oxygen Delivery Fraction of Inspired Oxygen 03/02/24 02:00 03/02/24 04:00 03/02/24 02:00 Temperature 37.0 C Pulse Rate 64 73 64 Respiratory Rate 24 H 24 H 24 H Blood Pressure 116/51 L Pulse Oximetry 98 Oxygen Delivery Fraction of Inspired Oxygen 03/02/24 04:00 03/02/24 04:36 03/02/24 04:00 Temperature 37.0 C Pulse Rate 73 78 Respiratory Rate 24 H Blood Pressure 105/49 L Pulse Oximetry 97 98 Oxygen Delivery Mechanical Ventilation Mechanical Ventilation Fraction of Inspired Oxygen 30 30 03/02/24 04:00 03/02/24 07:14 03/02/24 07:14 Temperature Pulse Rate 66 66 Respiratory Rate 24 H Blood Pressure Pulse Oximetry 96 Oxygen Delivery Mechanical Ventilation Fraction of Inspired Oxygen 30 30 03/02/24 06:00 03/02/24 06:00 03/02/24 06:00 Temperature Pulse Rate 75 75 75 Respiratory Rate 24 H 24 H Blood Pressure 108/54 L Pulse Oximetry Oxygen Delivery Fraction of Inspired Oxygen 03/02/24 04:00 03/02/24 06:00 03/01/24 22:00 Temperature Pulse Rate 76 75 70 Respiratory Rate 24 H Blood Pressure 108/54 L Pulse Oximetry 98 Oxygen Delivery Fraction of Inspired Oxygen 03/02/24 02:00 03/02/24 06:00 03/02/24 07:33 Temperature Pulse Rate 65 75 67 Respiratory Rate 24 H Blood Pressure Pulse Oximetry Oxygen Delivery Fraction of Inspired Oxygen 03/02/24 07:33 03/02/24 08:00 03/02/24 08:00 Temperature Pulse Rate 67 67 Respiratory Rate 24 H Blood Pressure Pulse Oximetry 96 96 Oxygen Delivery Mechanical Ventilation Mechanical Ventilation Fraction of Inspired Oxygen 30 30 03/02/24 08:00 03/02/24 08:00 03/02/24 08:00 Temperature 36.9 C Pulse Rate 67 67 Respiratory Rate 24 H 24 H Blood Pressure 101/50 L Pulse Oximetry 96 Oxygen Delivery Fraction of Inspired Oxygen 30 03/02/24 08:00 03/02/24 08:21 03/02/24 10:00 Temperature Pulse Rate 67 67 67 Respiratory Rate 24 H Blood Pressure 101/50 L Pulse Oximetry Oxygen Delivery Fraction of Inspired Oxygen 03/02/24 10:00 03/02/24 10:00 03/02/24 10:00 Temperature 37.1 C Pulse Rate 67 70 70 Respiratory Rate 22 H 22 H 22 H Blood Pressure 98/51 L Pulse Oximetry 96 Oxygen Delivery Fraction of Inspired Oxygen 03/02/24 10:00 03/02/24 10:39 03/02/24 12:00 Temperature Pulse Rate 70 67 72 Respiratory Rate Blood Pressure 98/50 L Pulse Oximetry 97 Oxygen Delivery Mechanical Ventilation Fraction of Inspired Oxygen 30 03/02/24 12:00 03/02/24 12:00 03/02/24 12:00 Temperature 37.2 C Pulse Rate 72 72 Respiratory Rate 22 H 22 H Blood Pressure 115/53 L Pulse Oximetry 96 97 Oxygen Delivery Mechanical Ventilation Fraction of Inspired Oxygen 30 30 03/02/24 12:00 03/02/24 12:00 03/02/24 12:00 Temperature Pulse Rate 72 72 72 Respiratory Rate 22 H 22 H Blood Pressure 115/53 L Pulse Oximetry Oxygen Delivery Fraction of Inspired Oxygen 03/02/24 13:19 03/02/24 13:19 03/02/24 13:16 Temperature Pulse Rate 70 70 70 Respiratory Rate 22 H 22 H Blood Pressure Pulse Oximetry 96 Oxygen Delivery Mechanical Ventilation Fraction of Inspired Oxygen 30 03/02/24 13:16 03/02/24 13:29 03/02/24 13:31 Temperature Pulse Rate 70 66 69 Respiratory Rate 22 H 22 H Blood Pressure 115/53 L Pulse Oximetry Oxygen Delivery Fraction of Inspired Oxygen 03/02/24 14:00 03/02/24 14:00 03/02/24 14:00 Temperature 37.1 C Pulse Rate 66 66 66 Respiratory Rate 22 H 22 H Blood Pressure 104/45 L Pulse Oximetry 97 Oxygen Delivery Fraction of Inspired Oxygen 03/02/24 14:00 03/02/24 14:00 03/02/24 16:00 Temperature Pulse Rate 66 66 60 Respiratory Rate 22 H Blood Pressure 104/45 L Pulse Oximetry Oxygen Delivery Fraction of Inspired Oxygen 03/02/24 16:00 03/02/24 16:00 03/02/24 16:00 Temperature 36.9 C Pulse Rate 60 60 Respiratory Rate 22 H 22 H Blood Pressure 113/54 L Pulse Oximetry 97 97 Oxygen Delivery Mechanical Ventilation Fraction of Inspired Oxygen 30 30 03/02/24 16:00 03/02/24 16:00 03/02/24 16:00 Temperature Pulse Rate 60 60 60 Respiratory Rate 22 H 22 H Blood Pressure 113/54 L Pulse Oximetry Oxygen Delivery Fraction of Inspired Oxygen 03/02/24 16:58 Temperature Pulse Rate 71 Respiratory Rate Blood Pressure Pulse Oximetry 97 Oxygen Delivery Mechanical Ventilation Fraction of Inspired Oxygen 30 Intake/Output Intake/Output: Intake & Output 02/28/24 02/29/24 03/01/24 03/02/24 23:59 23:59 23:59 23:59 Intake Total 2144.8 7453.1 4725.3 2132.8 Output Total 1000 625 500 Balance 2144.8 6453.1 4100.3 1632.8 Meds/Results Medications: Active Medications Generic Name Dose Route Start Last Admin Trade Name Freq PRN Reason Stop Dose Admin Acetaminophen 500 mg 02/28/24 19:15 Acetaminophen 500 Mg Tablet PO Q6H PRN Pain Rated 1-3 Albuterol/Ipratropium 3 ml 02/29/24 02:00 03/02/24 13:16 Ipratropium 0.5 Mg/Albuterol Sulfate 2.5 Mg Ampul.Neb 3 Ml INHALATION 3 ml Q6HRT JASON Administration Aspirin 81 mg 03/01/24 08:00 03/02/24 08:31 Aspirin 81 Mg Chewable Tablet PO 81 mg DAILY@0800 JASON Administration Atorvastatin Calcium 80 mg 03/01/24 09:00 03/02/24 08:31 Atorvastatin 40 Mg Tablet PO 80 mg DAILY JASON Administration Dextrose 12.5 gm 02/28/24 19:23 Dextrose 50% 25 Gm/50 Ml Syringe IV PUSH PRN PRN Hypoglycemia Protocol Glucagon 1 mg 02/28/24 19:23 Glucagon For Inj 1 Mg Vial IM PRN PRN Hypoglycemia Protocol Glucose 15 gm 02/28/24 19:23 Glucose Oral Gel 15 Gm Of Glucse In 37.5 Gm Tube PO PRN PRN Hypoglycemia Protocol Hydrocortisone Sodium Succinate 100 mg 02/29/24 14:00 03/02/24 14:16 Hydrocortisone Sodium Succinate 100 Mg/2 Ml Vial IV PUSH 100 mg Q8HR JASON Administration Dextrose 1,000 mls @ 100 mls/hr 02/28/24 19:23 Dextrose 5% 1,000 Ml IVPB PRN PRN Hypoglycemia Protocol Fentanyl Citrate 2,500 mcg in 250 mls @ 10 mls/hr 02/28/24 21:20 03/02/24 16:00 Fentanyl 2,500 Mcg/Ns 250 Ml IV CONT 100 mcg/hr .Q25H JASON 10 mls/hr Titration Protocol 100 MCG/HR Midazolam HCl 100 mg in 100 mls @ 3 mls/hr 02/28/24 21:20 03/02/24 16:00 Versed 100 Mg/Ns 100 Ml IV CONT 3 mg/hr .[id number] JASON 3 mls/hr Titration Protocol 3 MG/HR Meropenem 1 gm in 100 mls @ 200 mls/hr 02/28/24 22:00 03/02/24 14:16 IVPB 200 mls/hr Q8H JASON Administration Clindamycin Phosphate 900 mg in 50 mls @ 50 mls/hr 02/28/24 21:00 03/02/24 12:42 Cleocin 900 Mg/D5w 50 Ml IVPB 50 mls/hr Q8H JASON Administration Norepinephrine Bitartrate 8 mg in 250 mls @ 0 mls/hr 02/28/24 23:05 03/02/24 16:00 Levophed 8 Mg/D5w 250 Ml IV CONT 0 mcg/min .Q0M JASON 0 mls/hr Titration Protocol Vancomycin HCl 1,500 mg in 500 mls @ 250 mls/hr 02/29/24 14:00 03/02/24 06:06 Vancomycin 1,500 Mg/Ns 500 Ml IVPB Infused Q18H JASON Infusion Insulin Aspart 3 - 6 units 03/01/24 00:00 03/02/24 11:58 Insulin Aspart (*Bkc) 100 Units/Ml SUB-Q 3 units Q6H JASON Administration Protocol Insulin Glargine 10 units 03/02/24 09:00 03/02/24 08:32 Insulin Glargine (*Bkc) 100 Units/Ml SUB-Q 10 units DAILY JASON Administration Metoclopramide HCl 10 mg 03/02/24 12:00 03/02/24 10:46 Metoclopramide Hcl Inj 10 Mg/2 Ml Vial IV PUSH 03/03/24 18:01 10 mg Q6HR JASON Administration Midodrine 10 mg 03/02/24 09:00 03/02/24 12:42 Midodrine Hcl 10 Mg Tablet PO 10 mg TID JASON Administration Multi-Ingred Cream/Lotion/Oil/Oint 1 applic 02/29/24 09:00 03/02/24 08:52 Mineral Oil/White Petrolatum Ointment EACH EYE 1 applic Q12HR JASON Administration Naloxone HCl 0.1 mg 02/28/24 19:15 Naloxone Hcl 0.4 Mg/Ml Vial IV PUSH Q2M PRN Opiate Reversal Pantoprazole Sodium 40 mg 03/02/24 09:00 03/02/24 08:52 Pantoprazole Sodium Iv 40 Mg Vial IV PUSH 40 mg Q12HR JASON Administration Sodium Chloride 10 ml 02/29/24 06:00 03/02/24 14:17 Central Line Flush IV PUSH 10 ml Q8HR JASON Administration Sodium Chloride 20 ml 02/28/24 23:37 Central Line Flush IV PUSH PRN PRN after blood draws Radiology Results: ITS Impressions Lower Extremity CTA 02/28/24 14:54 IMPRESSION: 1. 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 2. Moderate stenosis of right popliteal artery. 3. Osteomyelitis involving first proximal and distal phalanges and head of first metatarsal. Head CT 02/29/24 05:55 Impression: No intracranial hemorrhage, mass, or acute infarct. Stable chronic encephalomalacia in the high left parietal lobe. Atrophy and chronic white matter changes, as above. Chest/Abdomen/Pelvis CTA 02/29/24 06:02 Impression: Extensive right upper lobe consolidation and more mild right middle lobe consolidation, consistent with pneumonia. Consider aspiration pneumonia. Moderate to large right pleural effusion with complete atelectasis of the right lower lobe. Moderate left pleural effusion with minimal left basilar atelectasis. Small pericardial effusion. No definite acute abnormality in the abdomen or pelvis. Chronic compression fractures, as above. Chest X-Ray 03/02/24 06:22 Impression: Probable moderate layering right pleural effusion. Correlate for underlying atelectasis/edema versus pneumonia. Left lung clear. Support tubes, as above. Labs Labs: Laboratory Results - last 24 hr 03/01/24 03/02/24 03/02/24 18:16 00:30 04:37 WBC RBC Hgb Hct MCV MCH MCHC RDW Plt Count MPV Immature Gran % (Auto) Neut % (Auto) Lymph % (Auto) [place] % (Auto) Eos % (Auto) Baso % (Auto) Lymph # (Auto) [place] # (Auto) Eos # (Auto) Baso # (Auto) Abs Immat Gran (auto) Absolute Neuts (auto) Absolute Nucleated RBC Nucleated RBC % PT INR APTT Puncture Site Right radial ABG pH 7.490 H ABG pCO2 27.7 L ABG pO2 90.6 ABG PO2/FiO2 Ratio 3.02 ABG HCO3 20.6 L ABG O2 Saturation 97.6 ABG O2 Content 11.8 L ABG Base Excess -2.1 A-a Gradient 90.8 Oxyhemoglobin 96.1 Carboxyhemoglobin 1.2 Methemoglobin 0.3 Reduced Hemoglobin 2.4 Total Hemoglobin 8.6 L O2 Delivery Device Ventilator O2 Liters/Min Not Reportable Minute Volume Not Reportable Vent Rate 24 Vent Mode Cmv FiO2 30 Tidal Volume 450 PEEP 8 Peak Inspir Pressure Not Reportable Pressure Support Not Reportable Sodium Potassium Chloride Carbon Dioxide Anion Gap BUN Creatinine Estim Creat Clear Calc Estimated GFR Glucose POC Capillary Glucose 236 H 234 H Lactic Acid Calcium Magnesium Total Bilirubin AST ALT Alkaline Phosphatase C-Reactive Protein Total Protein Albumin 03/02/24 03/02/24 05:44 11:52 WBC 15.6 H RBC 2.86 L Hgb 7.8 L Hct 24.6 L MCV 86.0 MCH 27.3 MCHC 31.7 L RDW 15.0 H Plt Count 373 MPV 9.1 Immature Gran % (Auto) 1.2 H Neut % (Auto) 86.0 H Lymph % (Auto) 7.0 L [place] % (Auto) 5.6 Eos % (Auto) 0.0 Baso % (Auto) 0.2 Lymph # (Auto) 1.09 [place] # (Auto) 0.9 H Eos # (Auto) 0.0 Baso # (Auto) 0.0 Abs Immat Gran (auto) 0.19 H Absolute Neuts (auto) 13.4 H Absolute Nucleated RBC 0.000 Nucleated RBC % 0.0 PT 21.1 H INR 1.8 APTT 78.5 H Puncture Site ABG pH ABG pCO2 ABG pO2 ABG PO2/FiO2 Ratio ABG HCO3 ABG O2 Saturation ABG O2 Content ABG Base Excess A-a Gradient Oxyhemoglobin Carboxyhemoglobin Methemoglobin Reduced Hemoglobin Total Hemoglobin O2 Delivery Device O2 Liters/Min Minute Volume Vent Rate Vent Mode FiO2 Tidal Volume PEEP Peak Inspir Pressure Pressure Support Sodium 135 L Potassium 4.2 Chloride 107 Carbon Dioxide 18 L Anion Gap 10 BUN 37 H D Creatinine 1.30 Estim Creat Clear Calc 58 Estimated GFR 55 L Glucose 263 H POC Capillary Glucose 237 H Lactic Acid 1.0 Calcium 7.6 L Magnesium 2.4 H Total Bilirubin 0.3 AST 27 ALT 16 Alkaline Phosphatase 79 C-Reactive Protein 8.3 H Total Protein 7.0 Albumin 3.2 L Adequate oxygenation on 30% FiO2 +8 of PEEP On low-dose of Levophed but will probably wean off that today. CRP has decreased from over 20 previously and down to 8.3 today. Imaging Attestation: I personally reviewed and interpreted this imaging study as follows: (Chest x-ray today) My impression: Large right pulmonary infiltrate or consolidation, likely has pleural effusion as well. Left side looks pretty good. Radiologist's impression: Same
[2024-03-02 17:59] LABS: Glucose Point of Care 243 mg/dl (65-105)
[2024-03-02] MEDS: FENTANYL 2,500MCG/NS250ML(*CRX 2,500 MCG/250 ML BAG 10 MCG IV CONT (22:31)
[2024-03-03] VITALS (54 sets, daily range): BP systolic 101–161; BP diastolic 45–99; PULSE 59–157; RESP 15–40; TEMP 35.9–36.9; O2SAT 89–100
[2024-03-03] MEDS: INSULIN ASPART (*BKC) 100 UNITS/ML SUB-Q ×5 (00:02→23:22)
[2024-03-03 00:03] LABS: Glucose Point of Care 248 mg/dl (65-105)
[2024-03-03] MEDS: METOCLOPRAMIDE HCL INJ 10 MG/2 ML VIAL IV PUSH ×3 (00:03→17:26)
[2024-03-03] MEDS: IPRATROPIUM 0.5 MG/ALBUTEROL SULFATE 2.5 MG AMPUL.NEB 3 ML INHALATION ×4 (02:22→20:20)
[2024-03-03 05:25] LABS: Alveolar/Arterial O2 Gradient 98.5 mmHg; Base Excess ABG -2.7 mEq/l (+/-2.0); Carboxyhemoglobin 1.6 % THb (0-2.0); Fractional Inspired Oxygen 30 %; HCO3 ABG 20.4 mEq/l (22.0-26.0); Methemoglobin ABG 0.3 %THb (0-1.5); Oxygen Content ABG 12.1 %vol (16.0-22.0); Oxygen Saturation ABG 96.7 % (95.0-100.0); Oxyhemoglobin 94.9 % THb (90.0-100.0); PO2 ABG 81.3 mmHg (80.0-100.0); PO2 FiO2 Ratio Arterial Blood 2.71 %; Reduced Hemoglobin 3.2 %THb (0-5.0); pH ABG 7.465 (7.350-7.450)
[2024-03-03 05:37] LABS: Device VENTILATOR; Modified Allen's Test Pass; Site Drawn RIGHT RADIAL
[2024-03-03 05:38] LABS: Arterial Blood Gas PEEP 8 cmH2O; Arterial Blood Gas Tidal Volume 450 ml; Arterial Blood Gas Vent Mode CMV; Arterial Blood Gas Ventilator rate 22 /MIN
[2024-03-03 06:10] LABS: Glucose Point of Care 265 mg/dl (65-105)
[2024-03-03] MEDS: CLINDAMYCIN 900 MG/D5W 50 ML 900 MG/50 ML PIGGYBACK 50 MG IVPB ×3 (06:13→20:47)
[2024-03-03] MEDS: CENTRAL LINE FLUSH 10 ML IV PUSH ×3 (06:13→21:03)
[2024-03-03] MEDS: HYDROCORTISONE SODIUM SUCCINATE 100 MG/2 ML VIAL IV PUSH (06:13)
[2024-03-03] MEDS: MEROPENEM 1 GM/NS 100 ML 1 GM/100 ML BAG IVPB ×3 (06:13→21:03)
[2024-03-03 06:15] LABS: Basophils Percent Auto 0.2 % (0.2-1.2); Hematocrit 26.4 % (42.0-52.0); Hemoglobin 8.4 g/dL (14.0-18.0); Immature Granulocyte Absolute 0.36 K/mm3 (0.00-0.031); Immature Granulocyte Percent A 2.1 % (0-0.5); Lymphocytes Percent Auto 5.7 % (18.3-44.2); Mean Corpuscular HGB Conc 31.8 g/dl (32-36); Mean Corpuscular Volume 84.9 fl (80-100); Mean Platelet Volume 8.9 fl (7.4-10.4); Monocytes Absolute Auto 0.9 K/mm3 (0.1-0.6); Neutrophils Absolute Auto 15.2 K/mm3 (1.3-6.7); Platelet Count Result 437 k/mm3 (150-375); Red Blood Count 3.11 M/mm3 (4.6-6.20); Red Cell Distribution Width 15.3 % (11.5-14.5); White Blood Count 17.5 K/mm3 (4.5-10.0)
[2024-03-03 06:26] LABS: Lactic Acid Reflex 1.2 mmol/L (0.7-2.0); Partial Thromboplastin Time 53.7 Seconds (22.3-36.8)
[2024-03-03 06:33] LABS: Alanine Aminotransferase 25 U/L (6-50); Alkaline Phosphatase 83 U/L (38-126); Anion Gap 8 mmol/L (4-12); Aspartate Amino Transferase 38 U/L (17-59); Bilirubin,Total 0.2 mg/dL (0.2-1.3); Blood Urea Nitrogen 53 mg/dL (9-20); Calcium 7.6 mg/dL (8.4-10.2); Carbon Dioxide 20 mmol/L (22-30); Chloride 106 mmol/L (98-107); Estimated CRCL calculation 51 ml/min; Estimated Glomerular Filt Rate 47; Glucose 269 mg/dL (65-110); Magnesium 2.6 mg/dL (1.6-2.3); Potassium 4.5 mmol/L (3.4-5.0); Sodium 134 mmol/L (137-145)
[2024-03-03 06:40] LABS: INR 1.6; Prothrombin Time 19.2 Seconds (11.1-14.7)
[2024-03-03] MEDS: PANTOPRAZOLE SODIUM IV 40 MG VIAL IV PUSH ×2 (08:08→20:48)
[2024-03-03] MEDS: MINERAL OIL/WHITE PETROLATUM OINTMENT 1 APPLIC EACH EYE ×2 (08:08→20:48)
[2024-03-03] MEDS: MIDODRINE HCL 10 MG TABLET PO ×3 (08:08→17:26)
[2024-03-03] MEDS: BUMETANIDE INJ 1 MG/4 ML VIAL IV PUSH (08:08)
[2024-03-03] MEDS: ASPIRIN 81 MG CHEWABLE TABLET PO (08:08)
[2024-03-03] MEDS: ATORVASTATIN 40 MG TABLET 80 MG PO (08:08)
--- NOTE | 2024-03-03 08:08 | PC.NURSE ---
Sedation placed on hold per sedation vacation order.
[2024-03-03] MEDS: INSULIN GLARGINE (*BKC) 100 UNITS/ML 20 UNITS SUB-Q (08:09)
--- NOTE | 2024-03-03 08:53 | P.PNINT_ITS ---
Progress Note: A&P Assessment and Plan (1) Acute respiratory failure with hypoxia: Code(s): J96.01 - Acute respiratory failure with hypoxia Status: Acute Assessment and Plan: Acute respiratory failure likely related to cardiac arrest, aspiration pneumonia, NSTEMI, hypoxia, septic shock -currently CMV mode of ventilation, peep of 8, 30% FiO2 -continue bronchodilators -on fentanyl and Versed infusion for sedation -daily SBT and SAT -I have asked the bedside RN to time of the sedation, will place patient on SBT and evaluate for extubation -patient responded well to diuresis on 03/02, with improvement in chest x-ray, will diurese again today (2) Cardiac arrest with pulseless electrical activity: Code(s): I46.9 - Cardiac arrest, cause unspecified Status: Acute Assessment and Plan: Cardiac arrest, secondary to unknown etiology. Possible aspiration pneumonia, NSTEMI, hypoxia, septic shock, infection -see code blue sheet for the details -patient currently intubated, vasopressors for blood pressure support -appreciate cardiology following the patient 02/29/2024 echocardiogram Summary 1. Technically difficult study with limited views. 2. Left ventricular chamber dimension is normal. 3. Left ventricular systolic function is mildly reduced, estimated at 45-50%. The apex appears to be hypokinetic. 4. There is mildly increased left ventricular wall thickness. 5. The left ventricular diastolic function is grade I diastolic dysfunction. 6. Right ventricular systolic function is normal. 7. Left atrial chamber dimension is moderately enlarged. 8. There is mild to moderate tricuspid valve regurgitation. 9. There is small anterior pericardial effusion. (3) Septic shock: Code(s): A41.9 - Sepsis, unspecified organism; R65.21 - Severe sepsis with septic shock Status: Acute Assessment and Plan: Patient in shock, likely related to the gangrene, aspiration pneumonia, status post cardiac arrest 02/28/2024: Blood cultures have been obtained and pending -lactic acid has normalized -patient has been adequately fluid-resuscitated -OFF Levophed -wean stress dose steroids -continue midodrine -status post albumin for intravascular volume expansion (4) NSTEMI (non-ST elevated myocardial infarction): Code(s): I21.4 - Non-ST elevation (NSTEMI) myocardial infarction Status: Acute Assessment and Plan: Increasing troponins, -EKG showed sinus rhythm with T-wave changes in V1 to V5 -appreciate cardiology evaluation and recommendation -Continue aspirin and high-dose a statin -will hold Brilinta -will also hold beta-brayden, losartan which is home med, since he is hypotensive on vasopressors -03/02 heparin infusion was discontinued after 48 hours for NSTEMI by cardiology (5) Gangrene of right foot: Code(s): I96 - Gangrene, not elsewhere classified Status: Acute Assessment and Plan: CTA showed peripheral arterial disease with total occlusion of the right anterior and posterior tibial arteries and right peroneal artery with distal reconstitution of peroneal artery. This extensive gangrene of the right foot with gas seen on CT of the foot. -pre following the patient, plan was to do a below-knee amputation on 02/29/2024 but given his cardiac arrest, NSTEMI and on pressors this has been deferred. Discussed with surgery -continue antibiotics for necrotizing gas gangrene. Patient on meropenem, clindamycin and vancomycin which was started on 02/28/2024 -amputation likely early this week per surgery (6) Osteomyelitis of toe of right foot: Code(s): M86.9 - Osteomyelitis, unspecified Status: Chronic Assessment and Plan: As above (7) Peripheral vascular disease: Code(s): I73.9 - Peripheral vascular disease, unspecified Status: Chronic Assessment and Plan: Patient has history of peripheral vascular disease, coronary artery disease -started on aspirin, patient will require Brilinta since he had a STEMI in 2020 but currently holding Brilinta due to possible amputation (8) Type 2 diabetes mellitus: Qualifiers: 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 complication status: with other specified complication 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 Qualified Code(s): E11.69 - Type 2 diabetes mellitus with other specified complication; Z79.4 - detention (current) use of insulin Code(s): E11.9 - Type 2 diabetes mellitus without complications Status: Acute Assessment and Plan: Currently on sliding scale insulin, Accu-Cheks Hemoglobin A1c this admission is 8.2 Increase Lantus (9) Chronic obstructive pulmonary disease: Code(s): J44.9 - Chronic obstructive pulmonary disease, unspecified Status: Acute Assessment and Plan: Continue DuoNebs -continue Symbicort Plan DVT prophylaxis: Heparin subQ Stress ulcer prophylaxis: Protonix Nutrition: Tube feeds at goal and tolerating Code Status: Full code Critical Care Time Spent: 32 minutes Due to a high probability of clinically significant, life threatening deterioration, the patient required my highest level of preparedness to intervene emergently and I personally spent this critical care time directly and personally managing the patient. This critical care time included obtaining a history; examining the patient; pulse oximetry; ordering and review of studies; arranging urgent treatment with development of a management plan; evaluation of patient's response to treatment; frequent reassessment; and discussions with other providers. It was exclusive of separately billable procedures and treating other patients and teaching time. Please see Assessment and Plan section and the rest of the note for further information on patient assessment and treatment This dictation may have been done utilizing a voice recognition system. Attempts have been made to correct errors. However, there may be uncorrected grammatical, spelling, and recognitions errors present. Subjective Date/time seen: 03/03/24 08:53 Interval history: Reason for consult: Status post PEA arrest, right foot gangrene with cellulitis, shock 03/03/2024: Patient seen examined the ICU, remains intubated on CMV mode of ventilation, peep of 8, 30% FiO2. Sedated with fentanyl and Versed infusion, does not open his eyes or follow simple commands. OFF Levophed. Urine output has been low, patient is not febrile. Off heparin infusion. Review of Systems Review of Systems: ROS unobtainable: Yes unobtainable due to endotracheal tube, unobtainable due to medical condition and unobtainable due to mental status Exam Narrative: General: Patient intubated and sedated no acute distress HEENT:, pupils are equal and reactive from a sclera is clear Neck:? supple Respiratory:? Coarse breath sounds bilaterally, decreased at bases, adequate air entry Cardiac:? S1-S2 normal, regular rate and rhythm Abdomen:? Soft, nontender, nondistended, hypoactive bowel sounds Extremities:? Gangrenous right 1st toe down to the 1st metatarsal, dorsum of the foot and all the way to approximately the heel on the medial aspect and plantar aspect of the foot over the 1st metatarsal. Purulent drainage and foul order. There is also erythema and swelling of the right foot. Right foot is now in a dressing. Posterior tibial and pedal pulses are not palpable Neuro:? Patient is intubated, sedated, opens eyes but does not follow simple commands Skin:? Patient has maceration of his perianal area, and states to pressure ulcer on his buttocks. Psych:? Unable to assess at this time Objective Data Vital Signs Vital Signs: Vital Signs - 24 hr 03/02/24 10:00 03/02/24 10:00 03/02/24 10:00 Temperature 98.8 F Pulse Rate 67 67 70 Respiratory Rate 22 H 22 H Blood Pressure 98/51 L Pulse Oximetry 96 Oxygen Delivery Fraction of Inspired Oxygen 03/02/24 10:00 03/02/24 10:00 03/02/24 10:39 Temperature Pulse Rate 70 70 67 Respiratory Rate 22 H Blood Pressure 98/50 L Pulse Oximetry 97 Oxygen Delivery Mechanical Ventilation Fraction of Inspired Oxygen 30 03/02/24 12:00 03/02/24 12:00 03/02/24 12:00 Temperature Pulse Rate 72 72 Respiratory Rate 22 H Blood Pressure Pulse Oximetry 96 Oxygen Delivery Mechanical Ventilation Fraction of Inspired Oxygen 30 30 03/02/24 12:00 03/02/24 12:00 03/02/24 12:00 Temperature 99 F Pulse Rate 72 72 72 Respiratory Rate 22 H 22 H 22 H Blood Pressure 115/53 L Pulse Oximetry 97 Oxygen Delivery Fraction of Inspired Oxygen 03/02/24 12:00 03/02/24 13:19 03/02/24 13:19 Temperature Pulse Rate 72 70 70 Respiratory Rate 22 H 22 H Blood Pressure 115/53 L Pulse Oximetry Oxygen Delivery Fraction of Inspired Oxygen 03/02/24 13:16 03/02/24 13:16 03/02/24 13:29 Temperature Pulse Rate 70 70 66 Respiratory Rate 22 H 22 H Blood Pressure Pulse Oximetry 96 Oxygen Delivery Mechanical Ventilation Fraction of Inspired Oxygen 30 03/02/24 13:31 03/02/24 14:00 03/02/24 14:00 Temperature 98.8 F Pulse Rate 69 66 66 Respiratory Rate 22 H Blood Pressure 115/53 L 104/45 L Pulse Oximetry 97 Oxygen Delivery Fraction of Inspired Oxygen 03/02/24 14:00 03/02/24 14:00 03/02/24 14:00 Temperature Pulse Rate 66 66 66 Respiratory Rate 22 H 22 H Blood Pressure 104/45 L Pulse Oximetry Oxygen Delivery Fraction of Inspired Oxygen 03/02/24 16:00 03/02/24 16:00 03/02/24 16:00 Temperature Pulse Rate 60 60 Respiratory Rate 22 H Blood Pressure Pulse Oximetry 97 Oxygen Delivery Mechanical Ventilation Fraction of Inspired Oxygen 30 30 03/02/24 16:00 03/02/24 16:00 03/02/24 16:00 Temperature 98.5 F Pulse Rate 60 60 60 Respiratory Rate 22 H 22 H 22 H Blood Pressure 113/54 L Pulse Oximetry 97 Oxygen Delivery Fraction of Inspired Oxygen 03/02/24 16:00 03/02/24 16:58 03/02/24 18:00 Temperature Pulse Rate 60 71 58 L Respiratory Rate Blood Pressure 113/54 L Pulse Oximetry 97 Oxygen Delivery Mechanical Ventilation Fraction of Inspired Oxygen 30 03/02/24 18:00 03/02/24 18:00 03/02/24 18:00 Temperature 98.4 F Pulse Rate 59 L 59 L 59 L Respiratory Rate 22 H 22 H 22 H Blood Pressure 115/57 L Pulse Oximetry 97 Oxygen Delivery Fraction of Inspired Oxygen 03/02/24 19:37 03/02/24 19:37 03/02/24 20:00 Temperature Pulse Rate 64 64 58 L Respiratory Rate 22 H 22 H Blood Pressure Pulse Oximetry 100 Oxygen Delivery Mechanical Ventilation Fraction of Inspired Oxygen 30 03/02/24 20:00 03/02/24 20:00 03/02/24 20:00 Temperature Pulse Rate 58 L 59 L Respiratory Rate 22 H Blood Pressure Pulse Oximetry 96 Oxygen Delivery Mechanical Ventilation Fraction of Inspired Oxygen 30 03/02/24 20:00 03/02/24 20:00 03/02/24 22:00 Temperature 98.1 F Pulse Rate 59 L 57 L Respiratory Rate 22 H 22 H Blood Pressure 124/60 Pulse Oximetry 96 Oxygen Delivery Fraction of Inspired Oxygen 30 03/02/24 22:00 03/02/24 22:31 03/02/24 22:31 Temperature Pulse Rate 57 L 66 66 Respiratory Rate 22 H 23 H 23 H Blood Pressure Pulse Oximetry Oxygen Delivery Fraction of Inspired Oxygen 03/02/24 22:00 03/02/24 22:00 03/02/24 23:18 Temperature 97.9 F Pulse Rate 57 L 57 L 61 Respiratory Rate 22 H Blood Pressure 120/60 Pulse Oximetry 97 100 Oxygen Delivery Mechanical Ventilation Fraction of Inspired Oxygen 30 03/03/24 00:00 03/03/24 00:00 03/03/24 00:00 Temperature Pulse Rate 62 62 Respiratory Rate 22 H 22 H Blood Pressure Pulse Oximetry 95 Oxygen Delivery Mechanical Ventilation Fraction of Inspired Oxygen 30 03/03/24 00:00 03/03/24 00:00 03/03/24 00:00 Temperature 98.1 F Pulse Rate 78 78 Respiratory Rate 25 H Blood Pressure 138/66 Pulse Oximetry 95 Oxygen Delivery Fraction of Inspired Oxygen 30 03/03/24 02:22 03/03/24 02:22 03/03/24 02:00 Temperature Pulse Rate 79 79 59 L Respiratory Rate 23 H Blood Pressure Pulse Oximetry 96 Oxygen Delivery Mechanical Ventilation Fraction of Inspired Oxygen 30 03/03/24 02:00 03/03/24 02:00 03/03/24 02:00 Temperature 98.3 F Pulse Rate 59 L 59 L 59 L Respiratory Rate 22 H 22 H 22 H Blood Pressure 116/56 L Pulse Oximetry 96 Oxygen Delivery Fraction of Inspired Oxygen 03/02/24 19:43 03/03/24 02:28 03/03/24 04:00 Temperature Pulse Rate 67 79 100 Respiratory Rate 22 H 23 H 22 H Blood Pressure Pulse Oximetry Oxygen Delivery Fraction of Inspired Oxygen 03/03/24 04:00 03/03/24 04:00 03/03/24 04:00 Temperature Pulse Rate 100 Respiratory Rate 22 H Blood Pressure Pulse Oximetry 93 Oxygen Delivery Mechanical Ventilation Fraction of Inspired Oxygen 30 30 03/03/24 04:00 03/03/24 04:00 03/03/24 05:39 Temperature 98.2 F Pulse Rate 100 117 H 72 Respiratory Rate 22 H Blood Pressure 103/80 Pulse Oximetry 93 96 Oxygen Delivery Mechanical Ventilation Fraction of Inspired Oxygen 30 03/03/24 06:00 03/03/24 06:00 03/03/24 06:00 Temperature 98.1 F Pulse Rate 68 68 68 Respiratory Rate 22 H 22 H Blood Pressure 123/59 L Pulse Oximetry 96 Oxygen Delivery Fraction of Inspired Oxygen 03/03/24 06:00 03/03/24 08:08 03/03/24 08:08 Temperature Pulse Rate 68 67 67 Respiratory Rate 22 H 18 18 Blood Pressure Pulse Oximetry Oxygen Delivery Fraction of Inspired Oxygen 03/03/24 08:00 03/03/24 08:00 03/03/24 08:05 Temperature Pulse Rate 67 88 Respiratory Rate 18 24 H Blood Pressure Pulse Oximetry 97 Oxygen Delivery Mechanical Ventilation Fraction of Inspired Oxygen 30 30 03/03/24 08:22 03/03/24 08:00 03/03/24 08:22 Temperature 98.4 F Pulse Rate 88 87 87 Respiratory Rate 17 23 H Blood Pressure 107/54 L Pulse Oximetry 97 96 Oxygen Delivery Mechanical Ventilation Fraction of Inspired Oxygen 30 Intake/Output Intake/Output: Intake & Output 02/29/24 03/01/24 03/02/24 03/03/24 23:59 23:59 23:59 23:59 Intake Total 7453.1 4725.3 3016.0 814.5 Output Total 1000 625 500 450 Balance 6453.1 4100.3 2516.0 364.5 Meds/Results Medications: Active Medications Generic Name Dose Route Start Last Admin Trade Name Freq PRN Reason Stop Dose Admin Acetaminophen 500 mg 02/28/24 19:15 Acetaminophen 500 Mg Tablet PO Q6H PRN Pain Rated 1-3 Albuterol/Ipratropium 3 ml 02/29/24 02:00 03/03/24 08:08 Ipratropium 0.5 Mg/Albuterol Sulfate 2.5 Mg Ampul.Neb 3 Ml INHALATION 3 ml Q6HRT JASON Administration Aspirin 81 mg 03/01/24 08:00 03/03/24 08:08 Aspirin 81 Mg Chewable Tablet PO 81 mg DAILY@0800 JASON Administration Atorvastatin Calcium 80 mg 03/01/24 09:00 03/03/24 08:08 Atorvastatin 40 Mg Tablet PO 80 mg DAILY JASON Administration Dextrose 12.5 gm 02/28/24 19:23 Dextrose 50% 25 Gm/50 Ml Syringe IV PUSH PRN PRN Hypoglycemia Protocol Glucagon 1 mg 02/28/24 19:23 Glucagon For Inj 1 Mg Vial IM PRN PRN Hypoglycemia Protocol Glucose 15 gm 02/28/24 19:23 Glucose Oral Gel 15 Gm Of Glucse In 37.5 Gm Tube PO PRN PRN Hypoglycemia Protocol Hydrocortisone Sodium Succinate 50 mg 03/03/24 12:00 Hydrocortisone Sodium Succinate 100 Mg/2 Ml Vial IV PUSH 03/05/24 00:01 Q12H [facility] Dextrose 1,000 mls @ 100 mls/hr 02/28/24 19:23 Dextrose 5% 1,000 Ml IVPB PRN PRN Hypoglycemia Protocol Fentanyl Citrate 2,500 mcg in 250 mls @ 0 mls/hr 02/28/24 21:20 03/03/24 08:08 Fentanyl 2,500 Mcg/Ns 250 Ml IV CONT 0 mcg/hr .Q0M JASON 0 mls/hr Titration Protocol Midazolam HCl 100 mg in 100 mls @ 0 mls/hr 02/28/24 21:20 03/03/24 08:08 Versed 100 Mg/Ns 100 Ml IV CONT 0 mg/hr .Q0M JASON 0 mls/hr Titration Protocol Meropenem 1 gm in 100 mls @ 200 mls/hr 02/28/24 22:00 03/03/24 06:58 IVPB Infused Q8H JASON Infusion Clindamycin Phosphate 900 mg in 50 mls @ 50 mls/hr 02/28/24 21:00 03/03/24 07:12 Cleocin 900 Mg/D5w 50 Ml IVPB Infused Q8H JASON Infusion Vancomycin HCl 1,500 mg in 500 mls @ 250 mls/hr 02/29/24 14:00 03/02/24 22:23 Vancomycin 1,500 Mg/Ns 500 Ml IVPB Infused Q18H JASON Infusion Insulin Aspart 3 - 6 units 03/01/24 00:00 03/03/24 06:13 Insulin Aspart (*Bkc) 100 Units/Ml SUB-Q 4 units Q6H JASON Administration Protocol Insulin Glargine 20 units 03/03/24 09:00 03/03/24 08:09 Insulin Glargine (*Bkc) 100 Units/Ml SUB-Q 20 units DAILY JASON Administration Metoclopramide HCl 10 mg 03/02/24 12:00 03/03/24 06:13 Metoclopramide Hcl Inj 10 Mg/2 Ml Vial IV PUSH 03/03/24 18:01 10 mg Q6HR JASNO Administration Midodrine 10 mg 03/02/24 09:00 03/03/24 08:08 Midodrine Hcl 10 Mg Tablet PO 10 mg TID JASON Administration Multi-Ingred Cream/Lotion/Oil/Oint 1 applic 02/29/24 09:00 03/03/24 08:08 Mineral Oil/White Petrolatum Ointment EACH EYE 1 applic Q12HR JASON Administration Naloxone HCl 0.1 mg 02/28/24 19:15 Naloxone Hcl 0.4 Mg/Ml Vial IV PUSH Q2M PRN Opiate Reversal Pantoprazole Sodium 40 mg 03/02/24 09:00 03/03/24 08:08 Pantoprazole Sodium Iv 40 Mg Vial IV PUSH 40 mg Q12HR JASON Administration Sodium Chloride 10 ml 02/29/24 06:00 03/03/24 06:13 Central Line Flush IV PUSH 10 ml Q8HR JASON Administration Sodium Chloride 20 ml 02/28/24 23:37 Central Line Flush IV PUSH PRN PRN after blood draws Radiology Results: ITS Impressions Lower Extremity CTA 02/28/24 14:54 IMPRESSION: 1. 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 2. Moderate stenosis of right popliteal artery. 3. Osteomyelitis involving first proximal and distal phalanges and head of first metatarsal. Head CT 02/29/24 05:55 Impression: No intracranial hemorrhage, mass, or acute infarct. Stable chronic encephalomalacia in the high left parietal lobe. Atrophy and chronic white matter changes, as above. Chest/Abdomen/Pelvis CTA 02/29/24 06:02 Impression: Extensive right upper lobe consolidation and more mild right middle lobe consolidation, consistent with pneumonia. Consider aspiration pneumonia. Moderate to large right pleural effusion with complete atelectasis of the right lower lobe. Moderate left pleural effusion with minimal left basilar atelectasis. Small pericardial effusion. No definite acute abnormality in the abdomen or pelvis. Chronic compression fractures, as above. Chest X-Ray 03/03/24 06:31 Impression: Small right pleural effusion. Possible mild asymmetric haziness right lung. Correlate for mild asymmetric pulmonary edema or pneumonia. Support tubes, as above. Labs Labs: Laboratory Results - last 24 hr 03/02/24 03/02/24 03/03/24 11:52 17:57 00:01 WBC RBC Hgb Hct MCV MCH MCHC RDW Plt Count MPV Immature Gran % (Auto) Neut % (Auto) Lymph % (Auto) Young % (Auto) Eos % (Auto) Baso % (Auto) Lymph # (Auto) Young # (Auto) Eos # (Auto) Baso # (Auto) Abs Immat Gran (auto) Absolute Neuts (auto) Absolute Nucleated RBC Nucleated RBC % PT INR APTT Puncture Site ABG pH ABG pCO2 ABG pO2 ABG PO2/FiO2 Ratio ABG HCO3 ABG O2 Saturation ABG O2 Content ABG Base Excess A-a Gradient Oxyhemoglobin Carboxyhemoglobin Methemoglobin Reduced Hemoglobin Total Hemoglobin O2 Delivery Device O2 Liters/Min Minute Volume Vent Rate Vent Mode FiO2 Tidal Volume PEEP Peak Inspir Pressure Pressure Support Sodium Potassium Chloride Carbon Dioxide Anion Gap BUN Creatinine Estim Creat Clear Calc Estimated GFR Glucose POC Capillary Glucose 237 H 243 H 248 H Lactic Acid Calcium Magnesium Total Bilirubin AST ALT Alkaline Phosphatase Total Protein Albumin 03/03/24 03/03/24 03/03/24 05:07 06:06 06:08 WBC 17.5 H RBC 3.11 L Hgb 8.4 L Hct 26.4 L MCV 84.9 MCH 27.0 MCHC 31.8 L RDW 15.3 H Plt Count 437 H MPV 8.9 Immature Gran % (Auto) 2.1 H Neut % (Auto) 87.0 H Lymph % (Auto) 5.7 L Young % (Auto) 5.0 Eos % (Auto) 0.0 Baso % (Auto) 0.2 Lymph # (Auto) 1.00 Young # (Auto) 0.9 H Eos # (Auto) 0.0 Baso # (Auto) 0.0 Abs Immat Gran (auto) 0.36 H Absolute Neuts (auto) 15.2 H Absolute Nucleated RBC 0.000 Nucleated RBC % 0.0 PT 19.2 H INR 1.6 APTT 53.7 H Puncture Site Right radial ABG pH 7.465 H ABG pCO2 29.0 L ABG pO2 81.3 ABG PO2/FiO2 Ratio 2.71 ABG HCO3 20.4 L ABG O2 Saturation 96.7 ABG O2 Content 12.1 L ABG Base Excess -2.7 A-a Gradient 98.5 Oxyhemoglobin 94.9 Carboxyhemoglobin 1.6 Methemoglobin 0.3 Reduced Hemoglobin 3.2 Total Hemoglobin 9.0 L O2 Delivery Device Ventilator O2 Liters/Min Not Reportable Minute Volume Not Reportable Vent Rate 22 Vent Mode Cmv FiO2 30 Tidal Volume 450 PEEP 8 Peak Inspir Pressure Not Reportable Pressure Support Not Reportable Sodium 134 L Potassium 4.5 Chloride 106 Carbon Dioxide 20 L Anion Gap 8 BUN 53 H D Creatinine 1.50 H Estim Creat Clear Calc 51 Estimated GFR 47 L Glucose 269 H POC Capillary Glucose 265 H Lactic Acid 1.2 Calcium 7.6 L Magnesium 2.6 H Total Bilirubin 0.2 AST 38 ALT 25 Alkaline Phosphatase 83 Total Protein 6.0 L Albumin 3.0 L Quality VTE Prophylaxis VTE prophylaxis: pharmacologic ordered
--- NOTE | 2024-03-03 09:12 | PM.PNCARD ---
Progress Note: A&P Assessment and Plan (1) Cardiac arrest: Code(s): I46.9 - Cardiac arrest, cause unspecified Status: Acute Assessment and Plan: Likely related to aspiration and subsequent pulseless electrical activity arrest. Off pressors at this point. (2) NSTEMI (non-ST elevated myocardial infarction): Code(s): I21.4 - Non-ST elevation (NSTEMI) myocardial infarction Status: Acute Assessment and Plan: Type 2 infarction. Plan Clinically unchanged. Patient with type 2 myocardial infarction because of cardiac arrest likely triggered by aspiration. Anticipate BKA this week Subjective Date/time seen: 03/03/24 09:12 Interval history: Follow-up visit in this 68-year-old man with: Episode of PE a arrest working diagnosis is aspiration event resulting in arrest and type 2 myocardial infarction. Patient has known history of coronary artery disease with emergency RCA intervention being performed in 2020 in the setting of acute ST-elevation MS. patient did have significant stenosis in a couple of marginal branches of the circumflex artery according to the chart at that time. He was not compliant with follow-up of his coronary disease in the office has had not been seen since that intervention. Patient is now intubated in the ICU sedated and of course unresponsive. 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 Intubated /unresponsive sedated Date of service 03/03/2024: Still intubated, sedated, unresponsive. Review of Systems Review of Systems: ROS unobtainable: Yes unobtainable due to endotracheal tube and unobtainable due to medical condition Exam Const: Other: Unkempt white male appearing considerably older than his stated age intubated sedated on mechanical ventilator support HENMT: Mouth: Yes moist mucous membranes Other: OETT in place Eyes: Sclera: sclerae normal Neck: Neck: supple and no JVD Resp: Other: Breath sounds are relatively clear with anterior auscultation with patient on the ventilator Cardio: Rate: regular rate Rhythm: regular rhythm Heart sounds: no murmurs Other: No apparent murmur or gallop Urinary Catheter: Urinary Catheter: patent and draining Skin: General skin exam: normal color Neuro: Other: Sedated on the ventilator Extrem: Other: Right foot is wrapped in gauze not on wrapped for examination, no peripheral edema Objective Data Vital Signs Vital Signs: Vital Signs - 24 hr 03/02/24 10:00 03/02/24 10:00 03/02/24 10:00 Temperature 37.1 C Pulse Rate 67 67 70 Respiratory Rate 22 H 22 H Blood Pressure 98/51 L Pulse Oximetry 96 Oxygen Delivery Fraction of Inspired Oxygen 03/02/24 10:00 03/02/24 10:00 03/02/24 10:39 Temperature Pulse Rate 70 70 67 Respiratory Rate 22 H Blood Pressure 98/50 L Pulse Oximetry 97 Oxygen Delivery Mechanical Ventilation Fraction of Inspired Oxygen 30 03/02/24 12:00 03/02/24 12:00 03/02/24 12:00 Temperature Pulse Rate 72 72 Respiratory Rate 22 H Blood Pressure Pulse Oximetry 96 Oxygen Delivery Mechanical Ventilation Fraction of Inspired Oxygen 30 30 03/02/24 12:00 03/02/24 12:00 03/02/24 12:00 Temperature 37.2 C Pulse Rate 72 72 72 Respiratory Rate 22 H 22 H 22 H Blood Pressure 115/53 L Pulse Oximetry 97 Oxygen Delivery Fraction of Inspired Oxygen 03/02/24 12:00 03/02/24 13:19 03/02/24 13:19 Temperature Pulse Rate 72 70 70 Respiratory Rate 22 H 22 H Blood Pressure 115/53 L Pulse Oximetry Oxygen Delivery Fraction of Inspired Oxygen 03/02/24 13:16 03/02/24 13:16 03/02/24 13:29 Temperature Pulse Rate 70 70 66 Respiratory Rate 22 H 22 H Blood Pressure Pulse Oximetry 96 Oxygen Delivery Mechanical Ventilation Fraction of Inspired Oxygen 30 03/02/24 13:31 03/02/24 14:00 03/02/24 14:00 Temperature 37.1 C Pulse Rate 69 66 66 Respiratory Rate 22 H Blood Pressure 115/53 L 104/45 L Pulse Oximetry 97 Oxygen Delivery Fraction of Inspired Oxygen 03/02/24 14:00 03/02/24 14:00 03/02/24 14:00 Temperature Pulse Rate 66 66 66 Respiratory Rate 22 H 22 H Blood Pressure 104/45 L Pulse Oximetry Oxygen Delivery Fraction of Inspired Oxygen 03/02/24 16:00 03/02/24 16:00 03/02/24 16:00 Temperature Pulse Rate 60 60 Respiratory Rate 22 H Blood Pressure Pulse Oximetry 97 Oxygen Delivery Mechanical Ventilation Fraction of Inspired Oxygen 30 30 03/02/24 16:00 03/02/24 16:00 03/02/24 16:00 Temperature 36.9 C Pulse Rate 60 60 60 Respiratory Rate 22 H 22 H 22 H Blood Pressure 113/54 L Pulse Oximetry 97 Oxygen Delivery Fraction of Inspired Oxygen 03/02/24 16:00 03/02/24 16:58 03/02/24 18:00 Temperature Pulse Rate 60 71 58 L Respiratory Rate Blood Pressure 113/54 L Pulse Oximetry 97 Oxygen Delivery Mechanical Ventilation Fraction of Inspired Oxygen 30 03/02/24 18:00 03/02/24 18:00 03/02/24 18:00 Temperature 36.9 C Pulse Rate 59 L 59 L 59 L Respiratory Rate 22 H 22 H 22 H Blood Pressure 115/57 L Pulse Oximetry 97 Oxygen Delivery Fraction of Inspired Oxygen 03/02/24 19:37 03/02/24 19:37 03/02/24 20:00 Temperature Pulse Rate 64 64 58 L Respiratory Rate 22 H 22 H Blood Pressure Pulse Oximetry 100 Oxygen Delivery Mechanical Ventilation Fraction of Inspired Oxygen 30 03/02/24 20:00 03/02/24 20:00 03/02/24 20:00 Temperature Pulse Rate 58 L 59 L Respiratory Rate 22 H Blood Pressure Pulse Oximetry 96 Oxygen Delivery Mechanical Ventilation Fraction of Inspired Oxygen 30 03/02/24 20:00 03/02/24 20:00 03/02/24 22:00 Temperature 36.7 C Pulse Rate 59 L 57 L Respiratory Rate 22 H 22 H Blood Pressure 124/60 Pulse Oximetry 96 Oxygen Delivery Fraction of Inspired Oxygen 30 03/02/24 22:00 03/02/24 22:31 03/02/24 22:31 Temperature Pulse Rate 57 L 66 66 Respiratory Rate 22 H 23 H 23 H Blood Pressure Pulse Oximetry Oxygen Delivery Fraction of Inspired Oxygen 03/02/24 22:00 03/02/24 22:00 03/02/24 23:18 Temperature 36.6 C Pulse Rate 57 L 57 L 61 Respiratory Rate 22 H Blood Pressure 120/60 Pulse Oximetry 97 100 Oxygen Delivery Mechanical Ventilation Fraction of Inspired Oxygen 30 03/03/24 00:00 03/03/24 00:00 03/03/24 00:00 Temperature Pulse Rate 62 62 Respiratory Rate 22 H 22 H Blood Pressure Pulse Oximetry 95 Oxygen Delivery Mechanical Ventilation Fraction of Inspired Oxygen 30 03/03/24 00:00 03/03/24 00:00 03/03/24 00:00 Temperature 36.7 C Pulse Rate 78 78 Respiratory Rate 25 H Blood Pressure 138/66 Pulse Oximetry 95 Oxygen Delivery Fraction of Inspired Oxygen 30 03/03/24 02:22 03/03/24 02:22 03/03/24 02:00 Temperature Pulse Rate 79 79 59 L Respiratory Rate 23 H Blood Pressure Pulse Oximetry 96 Oxygen Delivery Mechanical Ventilation Fraction of Inspired Oxygen 30 03/03/24 02:00 03/03/24 02:00 03/03/24 02:00 Temperature 36.8 C Pulse Rate 59 L 59 L 59 L Respiratory Rate 22 H 22 H 22 H Blood Pressure 116/56 L Pulse Oximetry 96 Oxygen Delivery Fraction of Inspired Oxygen 03/02/24 19:43 03/03/24 02:28 03/03/24 04:00 Temperature Pulse Rate 67 79 100 Respiratory Rate 22 H 23 H 22 H Blood Pressure Pulse Oximetry Oxygen Delivery Fraction of Inspired Oxygen 03/03/24 04:00 03/03/24 04:00 03/03/24 04:00 Temperature Pulse Rate 100 Respiratory Rate 22 H Blood Pressure Pulse Oximetry 93 Oxygen Delivery Mechanical Ventilation Fraction of Inspired Oxygen 30 30 03/03/24 04:00 03/03/24 04:00 03/03/24 05:39 Temperature 36.8 C Pulse Rate 100 117 H 72 Respiratory Rate 22 H Blood Pressure 103/80 Pulse Oximetry 93 96 Oxygen Delivery Mechanical Ventilation Fraction of Inspired Oxygen 30 03/03/24 06:00 03/03/24 06:00 03/03/24 06:00 Temperature 36.7 C Pulse Rate 68 68 68 Respiratory Rate 22 H 22 H Blood Pressure 123/59 L Pulse Oximetry 96 Oxygen Delivery Fraction of Inspired Oxygen 03/03/24 06:00 03/03/24 08:08 03/03/24 08:08 Temperature Pulse Rate 68 67 67 Respiratory Rate 22 H 18 18 Blood Pressure Pulse Oximetry Oxygen Delivery Fraction of Inspired Oxygen 03/03/24 08:00 03/03/24 08:00 03/03/24 08:05 Temperature Pulse Rate 67 88 Respiratory Rate 18 24 H Blood Pressure Pulse Oximetry 97 Oxygen Delivery Mechanical Ventilation Fraction of Inspired Oxygen 30 30 03/03/24 08:22 03/03/24 08:00 03/03/24 08:22 Temperature 36.9 C Pulse Rate 88 87 87 Respiratory Rate 17 23 H Blood Pressure 107/54 L Pulse Oximetry 97 96 Oxygen Delivery Mechanical Ventilation Fraction of Inspired Oxygen 30 03/03/24 09:08 Temperature Pulse Rate Respiratory Rate Blood Pressure Pulse Oximetry Oxygen Delivery Fraction of Inspired Oxygen 30 Intake/Output Intake/Output: Intake & Output 02/29/24 03/01/24 03/02/24 03/03/24 23:59 23:59 23:59 23:59 Intake Total 7453.1 4725.3 3016.0 814.5 Output Total 1000 625 500 450 Balance 6453.1 4100.3 2516.0 364.5 Meds/Results Medications: Active Medications Generic Name Dose Route Start Last Admin Trade Name Freq PRN Reason Stop Dose Admin Acetaminophen 500 mg 02/28/24 19:15 Acetaminophen 500 Mg Tablet PO Q6H PRN Pain Rated 1-3 Albuterol/Ipratropium 3 ml 02/29/24 02:00 03/03/24 08:08 Ipratropium 0.5 Mg/Albuterol Sulfate 2.5 Mg Ampul.Neb 3 Ml INHALATION 3 ml Q6HRT JASON Administration Aspirin 81 mg 03/01/24 08:00 03/03/24 08:08 Aspirin 81 Mg Chewable Tablet PO 81 mg DAILY@0800 JASON Administration Atorvastatin Calcium 80 mg 03/01/24 09:00 03/03/24 08:08 Atorvastatin 40 Mg Tablet PO 80 mg DAILY JASON Administration Dextrose 12.5 gm 02/28/24 19:23 Dextrose 50% 25 Gm/50 Ml Syringe IV PUSH PRN PRN Hypoglycemia Protocol Glucagon 1 mg 02/28/24 19:23 Glucagon For Inj 1 Mg Vial IM PRN PRN Hypoglycemia Protocol Glucose 15 gm 02/28/24 19:23 Glucose Oral Gel 15 Gm Of Glucse In 37.5 Gm Tube PO PRN PRN Hypoglycemia Protocol Heparin Sodium (Porcine) 5,000 units 03/03/24 14:00 Heparin Sodium 5,000 Units/Ml Vial SUB-Q Q8HR [facility] Hydrocortisone Sodium Succinate 50 mg 03/03/24 12:00 Hydrocortisone Sodium Succinate 100 Mg/2 Ml Vial IV PUSH 03/05/24 00:01 Q12H [facility] Dextrose 1,000 mls @ 100 mls/hr 02/28/24 19:23 Dextrose 5% 1,000 Ml IVPB PRN PRN Hypoglycemia Protocol Fentanyl Citrate 2,500 mcg in 250 mls @ 0 mls/hr 02/28/24 21:20 03/03/24 08:08 Fentanyl 2,500 Mcg/Ns 250 Ml IV CONT 0 mcg/hr .Q0M JASON 0 mls/hr Titration Protocol Midazolam HCl 100 mg in 100 mls @ 0 mls/hr 02/28/24 21:20 03/03/24 08:08 Versed 100 Mg/Ns 100 Ml IV CONT 0 mg/hr .Q0M JASON 0 mls/hr Titration Protocol Meropenem 1 gm in 100 mls @ 200 mls/hr 02/28/24 22:00 03/03/24 06:58 IVPB Infused Q8H JASON Infusion Clindamycin Phosphate 900 mg in 50 mls @ 50 mls/hr 02/28/24 21:00 03/03/24 07:12 Cleocin 900 Mg/D5w 50 Ml IVPB Infused Q8H JASON Infusion Vancomycin HCl 1,500 mg in 500 mls @ 250 mls/hr 02/29/24 14:00 03/02/24 22:23 Vancomycin 1,500 Mg/Ns 500 Ml IVPB Infused Q18H JASON Infusion Insulin Aspart 3 - 6 units 03/01/24 00:00 03/03/24 06:13 Insulin Aspart (*Bkc) 100 Units/Ml SUB-Q 4 units Q6H JASON Administration Protocol Insulin Glargine 20 units 03/03/24 09:00 03/03/24 08:09 Insulin Glargine (*Bkc) 100 Units/Ml SUB-Q 20 units DAILY JASON Administration Metoclopramide HCl 10 mg 03/02/24 12:00 03/03/24 06:13 Metoclopramide Hcl Inj 10 Mg/2 Ml Vial IV PUSH 03/03/24 18:01 10 mg Q6HR JASON Administration Midodrine 10 mg 03/02/24 09:00 03/03/24 08:08 Midodrine Hcl 10 Mg Tablet PO 10 mg TID JASON Administration Multi-Ingred Cream/Lotion/Oil/Oint 1 applic 02/29/24 09:00 03/03/24 08:08 Mineral Oil/White Petrolatum Ointment EACH EYE 1 applic Q12HR JASON Administration Naloxone HCl 0.1 mg 02/28/24 19:15 Naloxone Hcl 0.4 Mg/Ml Vial IV PUSH Q2M PRN Opiate Reversal Pantoprazole Sodium 40 mg 03/02/24 09:00 03/03/24 08:08 Pantoprazole Sodium Iv 40 Mg Vial IV PUSH 40 mg Q12HR JASON Administration Sodium Chloride 10 ml 02/29/24 06:00 03/03/24 06:13 Central Line Flush IV PUSH 10 ml Q8HR JASON Administration Sodium Chloride 20 ml 02/28/24 23:37 Central Line Flush IV PUSH PRN PRN after blood draws Radiology Results: ITS Impressions Lower Extremity CTA 02/28/24 14:54 IMPRESSION: 1. 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 2. Moderate stenosis of right popliteal artery. 3. Osteomyelitis involving first proximal and distal phalanges and head of first metatarsal. Head CT 02/29/24 05:55 Impression: No intracranial hemorrhage, mass, or acute infarct. Stable chronic encephalomalacia in the high left parietal lobe. Atrophy and chronic white matter changes, as above. Chest/Abdomen/Pelvis CTA 02/29/24 06:02 Impression: Extensive right upper lobe consolidation and more mild right middle lobe consolidation, consistent with pneumonia. Consider aspiration pneumonia. Moderate to large right pleural effusion with complete atelectasis of the right lower lobe. Moderate left pleural effusion with minimal left basilar atelectasis. Small pericardial effusion. No definite acute abnormality in the abdomen or pelvis. Chronic compression fractures, as above. Chest X-Ray 03/03/24 06:31 Impression: Small right pleural effusion. Possible mild asymmetric haziness right lung. Correlate for mild asymmetric pulmonary edema or pneumonia. Support tubes, as above. Labs Labs: Laboratory Results - last 24 hr 03/02/24 03/02/24 03/03/24 11:52 17:57 00:01 WBC RBC Hgb Hct MCV MCH MCHC RDW Plt Count MPV Immature Gran % (Auto) Neut % (Auto) Lymph % (Auto) [place] % (Auto) Eos % (Auto) Baso % (Auto) Lymph # (Auto) [place] # (Auto) Eos # (Auto) Baso # (Auto) Abs Immat Gran (auto) Absolute Neuts (auto) Absolute Nucleated RBC Nucleated RBC % PT INR APTT Puncture Site ABG pH ABG pCO2 ABG pO2 ABG PO2/FiO2 Ratio ABG HCO3 ABG O2 Saturation ABG O2 Content ABG Base Excess A-a Gradient Oxyhemoglobin Carboxyhemoglobin Methemoglobin Reduced Hemoglobin Total Hemoglobin O2 Delivery Device O2 Liters/Min Minute Volume Vent Rate Vent Mode FiO2 Tidal Volume PEEP Peak Inspir Pressure Pressure Support Sodium Potassium Chloride Carbon Dioxide Anion Gap BUN Creatinine Estim Creat Clear Calc Estimated GFR Glucose POC Capillary Glucose 237 H 243 H 248 H Lactic Acid Calcium Magnesium Total Bilirubin AST ALT Alkaline Phosphatase Total Protein Albumin 03/03/24 03/03/24 03/03/24 05:07 06:06 06:08 WBC 17.5 H RBC 3.11 L Hgb 8.4 L Hct 26.4 L MCV 84.9 MCH 27.0 MCHC 31.8 L RDW 15.3 H Plt Count 437 H MPV 8.9 Immature Gran % (Auto) 2.1 H Neut % (Auto) 87.0 H Lymph % (Auto) 5.7 L [place] % (Auto) 5.0 Eos % (Auto) 0.0 Baso % (Auto) 0.2 Lymph # (Auto) 1.00 [place] # (Auto) 0.9 H Eos # (Auto) 0.0 Baso # (Auto) 0.0 Abs Immat Gran (auto) 0.36 H Absolute Neuts (auto) 15.2 H Absolute Nucleated RBC 0.000 Nucleated RBC % 0.0 PT 19.2 H INR 1.6 APTT 53.7 H Puncture Site Right radial ABG pH 7.465 H ABG pCO2 29.0 L ABG pO2 81.3 ABG PO2/FiO2 Ratio 2.71 ABG HCO3 20.4 L ABG O2 Saturation 96.7 ABG O2 Content 12.1 L ABG Base Excess -2.7 A-a Gradient 98.5 Oxyhemoglobin 94.9 Carboxyhemoglobin 1.6 Methemoglobin 0.3 Reduced Hemoglobin 3.2 Total Hemoglobin 9.0 L O2 Delivery Device Ventilator O2 Liters/Min Not Reportable Minute Volume Not Reportable Vent Rate 22 Vent Mode Cmv FiO2 30 Tidal Volume 450 PEEP 8 Peak Inspir Pressure Not Reportable Pressure Support Not Reportable Sodium 134 L Potassium 4.5 Chloride 106 Carbon Dioxide 20 L Anion Gap 8 BUN 53 H D Creatinine 1.50 H Estim Creat Clear Calc 51 Estimated GFR 47 L Glucose 269 H POC Capillary Glucose 265 H Lactic Acid 1.2 Calcium 7.6 L Magnesium 2.6 H Total Bilirubin 0.2 AST 38 ALT 25 Alkaline Phosphatase 83 Total Protein 6.0 L Albumin 3.0 L
[2024-03-03 09:41] LABS: Eosinophil Urine None Seen % (None Seen); Urine Eos QC 2nd Tech Confirmed
--- NOTE | 2024-03-03 10:01 | P.CONNP_ITS ---
Assessment and Plan Assessment and plan (1) GORDON (acute kidney injury): Code(s): N17.9 - Acute kidney failure, unspecified Status: Acute Assessment and Plan: * normal creatinine on admission * creatinine now up to 1.5mg/dl * multifactorial etiology: * hemodynamic instability/shock * sepsis/infection * cardiac arrest * NSTEMI * hypoxia * BP medications prior to admission including losartan * follow-up on urine studies, CPK, and renal ultrasound * seems reasonably to give trial of IV diuretics given better hemodynamics and issues with volume overload * follow trend of repeal labs and UOP (2) Septic shock: Code(s): A41.9 - Sepsis, unspecified organism; R65.21 - Severe sepsis with septic shock Status: Acute Assessment and Plan: * presumably due to right foot gangrene possible aspiration pneumonia complicated by cardiac arrest * follow culture data * lactic acid has improved * weaned off vasopressor therapy * on midodrine * on antibiotics * follow trend of hemodynamics (3) Cardiac arrest: Code(s): I46.9 - Cardiac arrest, cause unspecified Status: Acute Assessment and Plan: * etiology not entirely clear: * aspiration pneumonia(?) * NSTEMI * hypoxia * septic fermin * sepsis/infection * continue supportive therapy (4) Acute respiratory failure with hypoxia: Code(s): J96.01 - Acute respiratory failure with hypoxia Status: Acute Assessment and Plan: * secondary to cardiac arrest, possible aspiration/aspiration pneumonia, NSTEMI, septic shock and hypoxia * intubated and on mechanical ventilator support * complicated by known history of COPD * weaning as tolerated * diuresis as tolerated based on CXR findings (5) NSTEMI (non-ST elevated myocardial infarction): Code(s): I21.4 - Non-ST elevation (NSTEMI) myocardial infarction Status: Acute Assessment and Plan: * as noted by trend of troponins * EKG results noted * Cardiology following * on ASA and high dose statin therapy * holding metoprolol + losaratn given previous hypotension * s/p 48 hours of heparin gtt (6) Gangrene of right foot: Code(s): I96 - Gangrene, not elsewhere classified Status: Acute Assessment and Plan: * as noted by clinical exam on admission * complicated by known history of PVD/PAD: * CTA showed peripheral arterial disease with total occlusion of the right anterior and posterior tibial arteries and right peroneal artery with distal reconstitution of peroneal artery. This extensive gangrene of the right foot with gas seen on CT of the foot * Surgery following * will need surgical intervention * tentative plan was right BKA piror to cardiac arrest * on antibiotics (necrotizing gangrene with gas) (7) 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: Code(s): E11.9 - Type 2 diabetes mellitus without complications Status: Chronic Assessment and Plan: * follow accu-cheks * glycemic control per business analyst project manager/hospitalist Case discussed with Dr. Edmond. I will continue to follow the patient with you while he remains hospitalized and make further recommendations as deemed necessary. Thank you for allowing me to participate in the care of this patient. History of Present Illness Reason for Consult Consult date: 03/03/24 Reason for consult: acute renal failure Chief Complaint Chief complaint: Necrotic R Foot Wound/Osteintekutus/DM History of Present Illness Narrative: All the information that I obtained is from review of the electronic medical record and discussion with the physicians/nurses involved in the patient's care as I am unable to communicate with the patient as he is currently intubated and on mechanical ventilation. The patient is a 60-year-old male with an extensive past medical history as outlined below who presented to [facility] Emergency room via EMS for further evaluation of a gangrenous right foot with associated infection/cellulitis. Apparently, the right foot has been draining significantly and has been associated with malodorous smell. Furthermore, he has also been having significant pain and discomfort in his right foot as well. Workup and evaluation emergency room was significant for leukocytosis with a white blood cell count 22.2, relative anemia with a hemoglobin 9.5, normal renal function but elevated CRP. Given the significant findings of his right ft, a CT a of the right lower extremity demonstrated total occlusion of the right anterior and posterior tibial arteries and right peroneal artery with distal reconstitution. Along with moderate stenosis of the right popliteal artery and osteomyelitis involving the 1st proximal and distal phalanges and head of the 1st metatarsal. Given these findings, appropriate cultures were obtained use started on broad-spectrum IV antibiotic therapy and surgery was consulted for further assessment as well. He was subsequently admitted to the hospital for further evaluation and therapy. Upon arrival to the medical floor, he was noted be quite tachycardic and having difficulty breathing. He was hypoxic with O2 saturations in the 83 percentile range and required supplemental oxygen. He was also becoming diaphoretic and more lethargic until eventually a rapid response was called. He was found to be in PA arrest and intubated along with central line placement and started on vasopressor therapy. He was given aggressive IV fluid resuscitation and subsequently transferred to the ICU for ongoing management. Since his admission to the ICU, he has been continued on vasopressor therapy along with broad-spectrum IV antibiotics and ventilatory support. It was noted by labs done this morning that his renal function had declined as well. Renal consultation was requested due to his acute kidney injury/acute renal failure. As noted by labs on admission, his renal function was well within normal limits. However, since his admission, his renal function has declined in his creatinine is up to 1.5 mg/dL and now he is having issues and problems with volume overload. IV fluids have been backed off given his volume / fluid status and although his creatinine is elevated, he has no critical electrolyte abnormalities. The etiology of his acute kidney injury is likely multifactorial in relates to his acute illness that led to his presentation to the hospital. As far as I am aware, the patient has never had any issues or problems with his kidneys prior to this hospitalization Currently, at the time my evaluation, he is intubated/sedated and on mechanical ventilation. Review of Systems Review of Systems: As per HPI. [facility] Past Medical History Medical History Alcohol abuse has abstained for many years Chronic obstructive pulmonary disease COPD (chronic obstructive pulmonary disease) Coronary artery disease COVID-19 Depression Hip fracture, right History of alcoholism HTN (hypertension) Insomnia Peripheral neuropathy Peripheral vascular disease Type 2 diabetes mellitus Surgical History Surgical History History of appendectomy History of coronary artery stent placement History of hip surgery Reconstruction of the right femur History of open reduction and internal fixation (ORIF) procedure repair right femur fracture History of surgery on lower extremity History of tonsillectomy Family History Family History Father Cancer Mother Heart attack Father Cancer Mother Acute myocardial infarction Grandparent 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 Social History Social History Social History: Patient resides at [facility]. He has lived there for the past 7 years. Quit tobacco 12 years ago after smoking 1-1.5 packs per times 30+ years. He has been twice. History of alcoholism but sober for the past 7+ years. History of drug use with cocaine but denies history of IV drug use. He is a full code. He nominated his niece Flaca Abreu be the individual would make medical decisions for him if he is unable. He does have 1 son named Ricky. Smoking status: Former smoker Alcohol intake: former Substance use: former Substance use type: does not use and marijuana Do You Feel Safe in your Home?: Yes Lack of Transportation: No Lack of Food: Never True Current Housing: I Have Housing Concerned About Future Housing: No Difficulty Paying Gas/Electric Bills: No Difficulty Paying for Meds: No Currently Unemployed: No Education: Trade/Vocational Certificate Difficulty w/ Childcare or Family Care: No Living arrangements: correction Additional living arrangements comments: Pt lives at [facility]. Additional occupation/education comments: Disabled. Spiritual care concerns: No Meds Home Medications and Allergies Home Medications Medication Instructions Recorded Confirmed Type acetaminophen 160 mg/5 mL oral 650 mg (20.3125 mL) PO Q4H PRN 04/01/24 Rx suspension (Nortemp) Mild Pain (1-3) Or Fever #30 mL aspirin 81 mg chewable tablet 81 mg feeding tube DAILY@0800 #30 04/01/24 Rx (Children's Aspirin) tabs bisacodyl 10 mg rectal suppository 10 mg RECTAL QAM PRN Constipation 04/01/24 Rx #30 ea fondaparinux 5 mg/0.4 mL 5 mg (0.4 mL) subcut QAM #30 mL 04/01/24 Rx subcutaneous solution syringe (Arixtra) insulin aspart U-100 100 unit/mL 3 - 6 unit subcut Q4HR #30 mL 04/01/24 Rx subcutaneous solution (Novolog U-100 Insulin aspart) insulin glargine 100 unit/mL 20 unit (0.2 mL) subcut DAILY #30 04/01/24 Rx subcutaneous solution (Lantus mL U-100 Insulin) ipratropium 0.5 mg-albuterol 3 mg 3 ml inhalation Q6HRT #30 mL 04/01/24 Rx (2.5 mg base)/3 mL nebulization soln metoclopramide HCl 5 mg/5 mL oral 5 mg (5 mL) PO Q6HR #30 mL 04/01/24 Rx solution metoprolol tartrate 25 mg tablet 25 mg feeding tube Q12HR #30 tabs 04/01/24 Rx oxycodone 5 mg tablet 5 mg feeding tube Q4H PRN Moderate 04/01/24 Rx Pain (4-6) #20 tabs pantoprazole 40 mg granules 40 mg feeding tube Q12H #30 ea 04/01/24 Rx delayed-release for susp in packet (Protonix) polyethylene glycol 3350 17 gram 17 g PO QAM #30 ea 04/01/24 Rx oral powder packet (Miralax) white petrolatum-mineral oil 83 1 applic EACH EYE Q12HR #30 grams 04/01/24 Rx %-15 % eye ointment (Lubrifresh PM) Allergies Allergy/AdvReac Type Severity Reaction Status Date / Time No Known Allergies Allergy Verified 02/29/24 12:35 Vital Signs Vital Signs Temp Pulse Resp BP Pulse Ox O2 Del Method FiO2 03/03/24 10:00 157 H 40 H 03/03/24 09:15 30 03/03/24 09:08 30 03/03/24 08:22 87 23 H 03/03/24 08:00 98.4 F 87 17 107/54 L 96 03/03/24 08:22 88 97 Mechanical Ventilation 30 03/03/24 08:05 88 24 H 03/03/24 08:00 30 03/03/24 08:00 67 18 97 Mechanical Ventilation 30 03/03/24 08:08 67 18 03/03/24 08:08 67 18 03/03/24 06:00 68 22 H 03/03/24 06:00 68 22 H 03/03/24 06:00 98.1 F 68 22 H 123/59 L 96 03/03/24 06:00 68 03/03/24 05:39 72 96 Mechanical Ventilation 30 03/03/24 04:00 117 H 03/03/24 04:00 98.2 F 100 22 H 103/80 93 03/03/24 04:00 30 03/03/24 04:00 93 Mechanical Ventilation 30 03/03/24 04:00 100 22 H 03/03/24 04:00 100 22 H 03/03/24 02:28 79 23 H 03/02/24 19:43 67 22 H 03/03/24 02:00 59 L 22 H 03/03/24 02:00 59 L 22 H 03/03/24 02:00 98.3 F 59 L 22 H 116/56 L 96 03/03/24 02:00 59 L 03/03/24 02:22 79 23 H 03/03/24 02:22 79 96 Mechanical Ventilation 30 03/03/24 00:00 78 03/03/24 00:00 98.1 F 78 25 H 138/66 95 03/03/24 00:00 30 03/03/24 00:00 95 Mechanical Ventilation 30 03/03/24 00:00 62 22 H 03/03/24 00:00 62 22 H 03/02/24 23:18 61 100 Mechanical Ventilation 30 03/02/24 22:00 97.9 F 57 L 22 H 120/60 97 03/02/24 22:00 57 L 03/02/24 22:31 66 23 H 03/02/24 22:31 66 23 H 03/02/24 22:00 57 L 22 H 03/02/24 22:00 57 L 22 H 03/02/24 20:00 98.1 F 59 L 22 H 124/60 96 03/02/24 20:00 30 03/02/24 20:00 59 L 03/02/24 20:00 96 Mechanical Ventilation 30 03/02/24 20:00 58 L 22 H 03/02/24 20:00 58 L 22 H 03/02/24 19:37 64 22 H 03/02/24 19:37 64 100 Mechanical Ventilation 30 03/02/24 18:00 59 L 22 H 03/02/24 18:00 59 L 22 H 03/02/24 18:00 98.4 F 59 L 22 H 115/57 L 97 03/02/24 18:00 58 L 03/02/24 16:58 71 97 Mechanical Ventilation 30 03/02/24 16:00 60 113/54 L 03/02/24 16:00 60 22 H 03/02/24 16:00 60 22 H 03/02/24 16:00 98.5 F 60 22 H 113/54 L 97 03/02/24 16:00 30 03/02/24 16:00 60 22 H 97 Mechanical Ventilation 30 03/02/24 16:00 60 03/02/24 14:00 66 104/45 L 03/02/24 14:00 66 22 H 03/02/24 14:00 66 22 H 03/02/24 14:00 98.8 F 66 22 H 104/45 L 97 03/02/24 14:00 66 03/02/24 13:31 69 115/53 L 03/02/24 13:29 66 22 H 03/02/24 13:16 70 22 H 03/02/24 13:16 70 96 Mechanical Ventilation 30 03/02/24 13:19 70 22 H 03/02/24 13:19 70 22 H 03/02/24 12:00 72 115/53 L 03/02/24 12:00 72 22 H 03/02/24 12:00 72 22 H 03/02/24 12:00 99 F 72 22 H 115/53 L 97 03/02/24 12:00 30 03/02/24 12:00 72 22 H 96 Mechanical Ventilation 30 03/02/24 12:00 72 Exam Narrative: GENERAL APPEARANCE: well developed well nourished male intubated/sedated and on mechanical ventilation HEENT: normocephalic, atraumatic, normal conjunctiva and sclera, nares patient NECK: no lymphadenopathy, thyromegaly, or JVD MOUTH: normal lips, teeth, and gums; ETT in place CARDIOVASCULAR: RRR, normal S1 and S2, no rub detected RESPIRATORY: coarse breath sounds ABDOMEN: soft, nontender, nondistended, decreased bowel sounds present EXTREMITIES: no evidence of cyanosis, clubbing, right foot edema NEUROLOGICAL: unable to assess SKIN: right foot dressings in place Results Lab Results 04/01/24 05:45 04/01/24 05:45 Lab results: Most recent lab results ABG pH 7.465 (7.350-7.450) H 03/03/24 05:07 ABG pCO2 29.0 mmHg (35.0-45.0) L 03/03/24 05:07 ABG pO2 81.3 mmHg (80.0-100.0) 03/03/24 05:07 ABG HCO3 20.4 mEq/l (22.0-26.0) L 03/03/24 05:07 ABG O2 Saturation 96.7 % (95.0-100.0) 03/03/24 05:07 Calcium 7.6 mg/dL (8.4-10.2) L 03/03/24 06:06 Phosphorus 5.7 mg/dL (2.5-4.5) H 02/28/24 21:32 Magnesium 2.6 mg/dL (1.6-2.3) H 03/03/24 06:06 Urine Creatinine 76.7 mg/dL 03/03/24 09:09
[2024-03-03 10:05] LABS: Creatine Kinase 34 U/L (55-170)
[2024-03-03 10:17] LABS: Creatinine Urine 76.7 mg/dL
[2024-03-03 10:20] LABS: Potassium Urine Random 48.3 meq/L; Sodium Urine Random 20 meq/L
[2024-03-03] MEDS: MIDAZOLAM HCL (*CRX) 2 MG/2 ML VIAL 4 MG IV PUSH (10:34)
[2024-03-03] MEDS: fentaNYL CITRATE INJ (*CRX) 100 MCG/2 ML VIAL IV PUSH (10:36)
[2024-03-03] MEDS: ROCURONIUM BROMIDE 50 MG/5 ML VIAL IV PUSH ×2 (10:40→12:05)
--- NOTE | 2024-03-03 10:40 | PC.NURSE ---
Sedation resumed at previous ordered rate per MD order. Fentanyl 100mcg/hr and Versed 3mg/hr
[2024-03-03] MEDS: METOPROLOL TARTRATE INJ 5 MG/5 ML VIAL 2.5 MG IV PUSH (10:43)
--- NOTE | 2024-03-03 10:45 | PCFNICU ---
Addendum entered by Shikha Rick, RD, LDN 03/03/24 10:49: ICU Rounding Note: Pt current nutrition is Glucerna 1.2 @ 40 ml/hL 1056 kcal, 53 g protein, 708 ml free water. (meeting about 78% EER on [facility]; ~40% estimated protein requirement.) Nutrition recommendation: No new nutrition recommendations today. Increase goal on Glucerna 1.2 to 60 ml/h after BKA. Continue current nutrition care plan and tube feeding orders. Agree with current orders Last recorded weight is 102.6 kg. Bowel Motility: No BMs are charted Labs Reviewed: Hgb 8.4, Hct 26.4, Alb 3.0, NA 134, GFR 47, BUN 53, Cre 1.5, Glu 269. MAP 71 Meds Noted: Fentanyl for sedation. No pressors. Reglan Skin: Stage II pressure ulcer to sacrum. Necrotic foot Additional Notes: Pt on vent after coding. Possible BKA to necrotic foot tomorrow. Pt is not known to have any family. NH resident. Continue with current care plan. Increase goal on Glucerna 1.2 to 60 ml/h after BKA, vitals depending. Following daily in ICU rounds. Will monitor weight, labs, skin, tube feedings, meds, every Sunday and Sunday. . Original Note: ICU Rounding Note: Pt current nutrition is Glucerna 1.2 @ 40 ml/hL 1056 kcal, 53 g protein, 708 ml free water. (meeting about 78% EER on [facility]; ~40% estimated protein requirement.) Nutrition recommendation: No new nutrition recommendations today. Increase goal on Glucerna 1.2 to 60 ml/h after BKA. Continue current nutrition care plan and tube feeding orders. Agree with current orders Last recorded weight is 102.6 kg. Bowel Motility: No BMs are charted Labs Reviewed: Hgb 8.4, Hct 26.4, Alb 3.0, NA 134, GFR 47, BUN 53, Cre 1.5m Glu 269 Meds Noted: Skin: Additional Notes: Following daily in ICU rounds. Will monitor weight, labs, skin, tube feedings, meds, every Sunday and Sunday. .
[2024-03-03] MEDS: FUROSEMIDE INJ 40 MG/4 ML VIAL IV PUSH (10:53)
[2024-03-03 11:06] LABS: Glucose Point of Care 321 mg/dl (65-105)
--- NOTE | 2024-03-03 11:15 | PC.NURSE ---
This RN and another RN had cleaned up patient after pt had a bowel movement. Pt's heart rate has increased to the 150's, Respirations in the 40's, O2 saturations dropping into the 60's. MD to bedside with rn hemodialysis charge and RT. Orders placed as received from MD, and medications administered as ordered. Ventilator alarming low oxygen supply. RT calibrated ventilator with no success. Machine exchanged for a new machine, and non-working ventilator taken out of service by RT. Pt back on sedation with ventilator in CMV mode.
--- NOTE | 2024-03-03 11:20 | PCRCNOTE ---
New ventilator initiated on pt after previous ventilator started to fail.
[2024-03-03] MEDS: HYDROCORTISONE SODIUM SUCCINATE 100 MG/2 ML VIAL 50 MG IV PUSH ×2 (12:19→23:30)
[2024-03-03 12:24] LABS: Alveolar/Arterial O2 Gradient 587.3 mmHg; Base Excess ABG -5.8 mEq/l (+/-2.0); Fractional Inspired Oxygen 100 %; HCO3 ABG 20.7 mEq/l (22.0-26.0); Oxygen Saturation ABG 94.6 % (95.0-100.0); Oxyhemoglobin 93.1 % THb (90.0-100.0); PCO2 ABG 44.6 mmHg (35.0-45.0); PO2 ABG 81.1 mmHg (80.0-100.0); PO2 FiO2 Ratio Arterial Blood 0.81 %; Total Hemoglobin 11.4 g/dL (12.0-18.0)
[2024-03-03 12:25] LABS: Device VENTILATOR; Site Drawn RIGHT RADIAL
[2024-03-03 12:27] LABS: Arterial Blood Gas PEEP 12 cmH2O; Arterial Blood Gas Tidal Volume 410 ml; Arterial Blood Gas Vent Mode CMV
[2024-03-03] MEDS: CISATRACURIUM BESYLATE 200 MG in DEXTROSE 5% 80 ML 9.23 ML IV CONT (13:01)
--- NOTE | 2024-03-03 13:23 | PM.EVENT ---
Event Note Event Note Event Note: Patient placed on spontaneous breathing trial after sedation was held. Patient did well for about 45 minutes and started him tachypneic, tachycardic, diaphoretic, hypoxic. Bag-mask ventilation was started, chest x-ray showed diffuse bilateral pulmonary infiltrates, likely pulmonary edema versus ARDS., likely negative pressure pulmonary edema leading to ARDS -currently on CMV mode of ventilation -ABGs reviewed, ventilator was adjusted, peep of 12, 100% FiO2, tidal volume 410 ml (tidal volume at 6 mL/kg), rate of 26 -Lasix 40 mg IV x1 was given -blood pressure and heart rates have improved -patient being started on Nimbex infusion -will place patient in prone position -repeat ABGs later this evening -placed on arterial line in the right femoral artery for accurate blood pressures in ABG requirements
--- NOTE | 2024-03-03 13:27 | P.PCNBED_ITS ---
Procedures Arterial Line Arterial Line Date: 03/03/24 Arterial Line Time: 13:27 Perfomed Emergently - Given emergent patient conditions, temporal constraints may have precluded informed consent: Yes Time Out Performed: Yes Patient Position: supine Felled Seam Operator Chainstitch Prep: sterile gown, sterile gloves, mask and hat Site: right and femoral Site Prep: chlorhexidine and sterile drape Skin Anesthesia: 1% lidocaine Technique used: ultrasound-guided Size (Gauge): 14 Length: 12 cm Closure/Dressing: transparent dressing, hemostatic product, antimicrobial product and securement product Patient tolerated procedure: well and no complications Complications: none
[2024-03-03] MEDS: HEPARIN SODIUM 5,000 UNITS/ML VIAL 5000 UNITS SUB-Q ×2 (13:32→21:03)
--- NOTE | 2024-03-03 16:51 | P.PNIM_ITS ---
Progress Note: A&P Assessment and Plan (1) Septic shock: Code(s): A41.9 - Sepsis, unspecified organism; R65.21 - Severe sepsis with septic shock Status: Acute (2) NSTEMI (non-ST elevated myocardial infarction): Code(s): I21.4 - Non-ST elevation (NSTEMI) myocardial infarction Status: Acute (3) Cardiac arrest: Code(s): I46.9 - Cardiac arrest, cause unspecified Status: Acute Plan 68 year old male past medical history of alcohol abuse, COPD, peripheral neur opathy, peripheral vascular disease, type 2 diabetes presented the ED on 02/28/2024 via EMS for gangrenous right foot infection with cellulitis. The right foot ganglion has had drainage and malodorous.CTA of the left lower extremity showed total occlusion of the right anterior and posterior tibial arteries and right peroneal artery with distal reconstitution. Moderate stenosis of the right popliteal artery and osteomyelitis involving the 1st proximal and distal phalanges and head of the 1st metatarsal. He was started on cefepime, metronidazole and vancomycin, surgery was consulted and offered [id number] amputation. He was admitted to the medical floor, after arriving to the medical floor a got tachycardic in the 150s and was having difficulty breathing. His O2 sats were 83% on room air was placed supplemental oxygen. He guarded to use the commode, dropped his O2 sats again the low 80s, was diaphoretic, was less responsive and a rapid response was called which was converted to a code blue. Patient was in PEA, was intubated by ER physician, central line was inserted and was started on Levophed. Patient was given 2 L IV fluid bolus and transferred to the ICU for further management. Acute respiratory failure with hypoxia: likely related to cardiac arrest, aspiration pneumonia, NSTEMI, hypoxia, septic shock Patient is on mechanical ventilation Weaning trial per online marketing analyst Cardiac arrest: Patient intubated sedated and on pressor support Unclear etiology at the moment Possible due to NSTEMI, pneumonia, septic shock, Appreciate cardiology's consultation Septic shock: on pressor support patient has been adequately fluid-resuscitated, c/w Levophed Started on stress dose steroids on vancomycin, meropenem, clindamycin Blood culture was negative of bacteria NSTEMI: Increasing troponins Appreciate cardiology help EKG showed sinus rhythm with T-wave changes in V1 to V5 received heparin infusion for NSTEMI on aspirin and high-dose a statin Gangrene of right foot: CTA showed peripheral arterial disease with total occlusion of the right anterior and posterior tibial arteries and right peroneal artery with distal reconstitution of peroneal artery. This extensive gangrene of the right foot with gas seen on CT of the foot. planed below-knee amputation on 02/29/2024 but given his cardiac arrest, NSTEMI and on pressors this has been deferred. Continue with antibiotic as mentioned above Surgeon plans right below-knee amputation Chronic obstructive pulmonary disease: Code(s): J44.9 - Chronic obstructive pulmonary disease, unspecified Continue DuoNebs -continue Symbicort Type 2 diabetes mellitus: Currently on sliding scale insulin with Accu-Cheks Due to prophylaxis: On heparin drip Code status: Full Disposition: Pending improvement, continues to be in ICU Subjective Date/time seen: 03/03/24 16:51 Interval history: Patient is on mechanical ventilation, on sedation with fentanyl and Versed, titrate down Levophed 1-2 tody , afebrile, labs reviewed hb 7.8 Exam Narrative: General: Patient intubated and sedated no acute distress HEENT:, clear sclera Neck:? supple Respiratory:? Coarse breath sounds bilaterally, decreased at bases, adequate air entry Cardiac:? S1-S2 normal, regular rate and rhythm Abdomen:? Soft, nontender, nondistended, hypoactive bowel sounds Extremities:? Gangrenous right 1st toe down to the 1st metatarsal, erythema and swelling of the right foot. Posterior tibial and pedal pulses are not palpable Neuro:? Patient is intubated, sedated, able to open eyess Skin:? Patient has maceration of his perianal area, and states to pressure ulcer on his buttocks. Psych:? Unable to assess Objective Data Vital Signs Vital Signs: Vital Signs - 24 hr 03/02/24 16:58 03/02/24 18:00 03/02/24 18:00 Temperature 98.4 F Pulse Rate 71 58 L 59 L Respiratory Rate 22 H Blood Pressure 115/57 L Pulse Oximetry 97 97 Oxygen Delivery Mechanical Ventilation Fraction of Inspired Oxygen 30 03/02/24 18:00 03/02/24 18:00 03/02/24 19:37 Temperature Pulse Rate 59 L 59 L 64 Respiratory Rate 22 H 22 H Blood Pressure Pulse Oximetry 100 Oxygen Delivery Mechanical Ventilation Fraction of Inspired Oxygen 30 03/02/24 19:37 03/02/24 20:00 03/02/24 20:00 Temperature Pulse Rate 64 58 L 58 L Respiratory Rate 22 H 22 H 22 H Blood Pressure Pulse Oximetry Oxygen Delivery Fraction of Inspired Oxygen 03/02/24 20:00 03/02/24 20:00 03/02/24 20:00 Temperature Pulse Rate 59 L Respiratory Rate Blood Pressure Pulse Oximetry 96 Oxygen Delivery Mechanical Ventilation Fraction of Inspired Oxygen 30 30 03/02/24 20:00 03/02/24 22:00 03/02/24 22:00 Temperature 98.1 F Pulse Rate 59 L 57 L 57 L Respiratory Rate 22 H 22 H 22 H Blood Pressure 124/60 Pulse Oximetry 96 Oxygen Delivery Fraction of Inspired Oxygen 03/02/24 22:31 03/02/24 22:31 03/02/24 22:00 Temperature Pulse Rate 66 66 57 L Respiratory Rate 23 H 23 H Blood Pressure Pulse Oximetry Oxygen Delivery Fraction of Inspired Oxygen 03/02/24 22:00 03/02/24 23:18 03/03/24 00:00 Temperature 97.9 F Pulse Rate 57 L 61 62 Respiratory Rate 22 H 22 H Blood Pressure 120/60 Pulse Oximetry 97 100 Oxygen Delivery Mechanical Ventilation Fraction of Inspired Oxygen 30 03/03/24 00:00 03/03/24 00:00 03/03/24 00:00 Temperature Pulse Rate 62 Respiratory Rate 22 H Blood Pressure Pulse Oximetry 95 Oxygen Delivery Mechanical Ventilation Fraction of Inspired Oxygen 30 30 03/03/24 00:00 03/03/24 00:00 03/03/24 02:22 Temperature 98.1 F Pulse Rate 78 78 79 Respiratory Rate 25 H Blood Pressure 138/66 Pulse Oximetry 95 96 Oxygen Delivery Mechanical Ventilation Fraction of Inspired Oxygen 30 03/03/24 02:22 03/03/24 02:00 03/03/24 02:00 Temperature 98.3 F Pulse Rate 79 59 L 59 L Respiratory Rate 23 H 22 H Blood Pressure 116/56 L Pulse Oximetry 96 Oxygen Delivery Fraction of Inspired Oxygen 03/03/24 02:00 03/03/24 02:00 03/02/24 19:43 Temperature Pulse Rate 59 L 59 L 67 Respiratory Rate 22 H 22 H 22 H Blood Pressure Pulse Oximetry Oxygen Delivery Fraction of Inspired Oxygen 03/03/24 02:28 03/03/24 04:00 03/03/24 04:00 Temperature Pulse Rate 79 100 100 Respiratory Rate 23 H 22 H 22 H Blood Pressure Pulse Oximetry Oxygen Delivery Fraction of Inspired Oxygen 03/03/24 04:00 03/03/24 04:00 03/03/24 04:00 Temperature 98.2 F Pulse Rate 100 Respiratory Rate 22 H Blood Pressure 103/80 Pulse Oximetry 93 93 Oxygen Delivery Mechanical Ventilation Fraction of Inspired Oxygen 30 30 03/03/24 04:00 03/03/24 05:39 03/03/24 06:00 Temperature Pulse Rate 117 H 72 68 Respiratory Rate Blood Pressure Pulse Oximetry 96 Oxygen Delivery Mechanical Ventilation Fraction of Inspired Oxygen 30 03/03/24 06:00 03/03/24 06:00 03/03/24 06:00 Temperature 98.1 F Pulse Rate 68 68 68 Respiratory Rate 22 H 22 H 22 H Blood Pressure 123/59 L Pulse Oximetry 96 Oxygen Delivery Fraction of Inspired Oxygen 03/03/24 08:08 03/03/24 08:08 03/03/24 08:00 Temperature Pulse Rate 67 67 67 Respiratory Rate 18 18 18 Blood Pressure Pulse Oximetry 97 Oxygen Delivery Mechanical Ventilation Fraction of Inspired Oxygen 30 03/03/24 08:00 03/03/24 08:05 03/03/24 08:22 Temperature Pulse Rate 88 88 Respiratory Rate 24 H Blood Pressure Pulse Oximetry 97 Oxygen Delivery Mechanical Ventilation Fraction of Inspired Oxygen 30 30 03/03/24 08:00 03/03/24 08:22 03/03/24 09:08 Temperature 98.4 F Pulse Rate 87 87 Respiratory Rate 17 23 H Blood Pressure 107/54 L Pulse Oximetry 96 Oxygen Delivery Fraction of Inspired Oxygen 30 03/03/24 09:15 03/03/24 08:00 03/03/24 10:43 Temperature Pulse Rate 80 141 H Respiratory Rate Blood Pressure Pulse Oximetry Oxygen Delivery Fraction of Inspired Oxygen 30 03/03/24 10:00 03/03/24 10:40 03/03/24 10:00 Temperature Pulse Rate 157 H 157 H 157 H Respiratory Rate 40 H 40 H 40 H Blood Pressure Pulse Oximetry Oxygen Delivery Fraction of Inspired Oxygen 03/03/24 10:40 03/03/24 11:00 03/03/24 10:02 Temperature 98.1 F Pulse Rate 157 H 126 H Respiratory Rate 40 H 16 Blood Pressure 117/78 Pulse Oximetry 91 Oxygen Delivery Fraction of Inspired Oxygen 100 03/03/24 11:18 03/03/24 10:45 03/03/24 11:00 Temperature Pulse Rate 115 H 106 H 108 H Respiratory Rate 15 17 Blood Pressure Pulse Oximetry 97 Oxygen Delivery Mechanical Ventilation Fraction of Inspired Oxygen 100 03/03/24 10:45 03/03/24 11:00 03/03/24 11:15 Temperature Pulse Rate 106 H 108 H 104 H Respiratory Rate 15 17 24 H Blood Pressure Pulse Oximetry Oxygen Delivery Fraction of Inspired Oxygen 03/03/24 11:15 03/03/24 11:30 03/03/24 11:30 Temperature Pulse Rate 104 H 101 H 100 Respiratory Rate 24 H 24 H 24 H Blood Pressure Pulse Oximetry Oxygen Delivery Fraction of Inspired Oxygen 03/03/24 10:00 03/03/24 13:01 03/03/24 14:07 Temperature Pulse Rate 108 H 115 H 99 Respiratory Rate 26 H Blood Pressure 149/82 H Pulse Oximetry 97 Oxygen Delivery Mechanical Ventilation Fraction of Inspired Oxygen 90 03/03/24 13:15 03/03/24 13:30 03/03/24 13:45 Temperature Pulse Rate 108 H 104 H 111 H Respiratory Rate 26 H 26 H 26 H Blood Pressure 145/68 H 134/61 148/68 H Pulse Oximetry Oxygen Delivery Fraction of Inspired Oxygen 03/03/24 14:00 03/03/24 11:45 03/03/24 12:00 Temperature Pulse Rate 93 98 118 H Respiratory Rate 26 H 24 H 25 H Blood Pressure 105/47 L Pulse Oximetry Oxygen Delivery Fraction of Inspired Oxygen 03/03/24 14:00 03/03/24 11:45 03/03/24 12:00 Temperature Pulse Rate 93 98 118 H Respiratory Rate 26 H 24 H 25 H Blood Pressure Pulse Oximetry Oxygen Delivery Fraction of Inspired Oxygen 03/03/24 14:00 03/03/24 12:00 03/03/24 16:00 Temperature Pulse Rate 93 131 H 87 Respiratory Rate 26 H 23 H 26 H Blood Pressure Pulse Oximetry 89 L 98 Oxygen Delivery Mechanical Ventilation Mechanical Ventilation Fraction of Inspired Oxygen 100 90 03/03/24 12:01 03/03/24 14:01 03/03/24 10:40 Temperature 97.0 F L 96.7 F L Pulse Rate 131 H 90 Respiratory Rate 23 H 26 H Blood Pressure 161/99 H 103/58 L Pulse Oximetry 89 L 97 Oxygen Delivery Fraction of Inspired Oxygen 100 03/03/24 12:00 03/03/24 16:00 03/03/24 16:00 Temperature 96.9 F L Pulse Rate 82 Respiratory Rate 26 H Blood Pressure 101/49 L Pulse Oximetry 99 Oxygen Delivery Fraction of Inspired Oxygen 100 90 03/03/24 12:00 03/03/24 14:00 03/03/24 16:00 Temperature Pulse Rate 139 H 92 85 Respiratory Rate Blood Pressure Pulse Oximetry Oxygen Delivery Fraction of Inspired Oxygen Intake/Output Intake/Output: Intake & Output 02/29/24 03/01/24 03/02/24 03/03/24 23:59 23:59 23:59 23:59 Intake Total 7453.1 4725.3 3016.0 1013.3 Output Total 1000 625 500 455 Balance 6453.1 4100.3 2516.0 558.3 Meds/Results Medications: Active Medications Generic Name Dose Route Start Last Admin Trade Name Freq PRN Reason Stop Dose Admin Acetaminophen 500 mg 02/28/24 19:15 Acetaminophen 500 Mg Tablet PO Q6H PRN Pain Rated 1-3 Albuterol/Ipratropium 3 ml 02/29/24 02:00 03/03/24 14:06 Ipratropium 0.5 Mg/Albuterol Sulfate 2.5 Mg Ampul.Neb 3 Ml INHALATION 3 ml Q6HRT JASON Administration Aspirin 81 mg 03/01/24 08:00 03/03/24 08:08 Aspirin 81 Mg Chewable Tablet PO 81 mg DAILY@0800 JASON Administration Atorvastatin Calcium 80 mg 03/01/24 09:00 03/03/24 08:08 Atorvastatin 40 Mg Tablet PO 80 mg DAILY JASON Administration Dextrose 12.5 gm 02/28/24 19:23 Dextrose 50% 25 Gm/50 Ml Syringe IV PUSH PRN PRN Hypoglycemia Protocol Glucagon 1 mg 02/28/24 19:23 Glucagon For Inj 1 Mg Vial IM PRN PRN Hypoglycemia Protocol Glucose 15 gm 02/28/24 19:23 Glucose Oral Gel 15 Gm Of Glucse In 37.5 Gm Tube PO PRN PRN Hypoglycemia Protocol Heparin Sodium (Porcine) 5,000 units 03/03/24 14:00 03/03/24 13:32 Heparin Sodium 5,000 Units/Ml Vial SUB-Q 5,000 units Q8HR JASON Administration Hydralazine HCl 10 mg 03/03/24 15:19 Hydralazine Hcl 20 Mg/Ml Vial IV PUSH Q4HR PRN Hypertension Hydrocortisone Sodium Succinate 50 mg 03/03/24 12:00 03/03/24 12:19 Hydrocortisone Sodium Succinate 100 Mg/2 Ml Vial IV PUSH 03/05/24 00:01 50 mg Q12H JASON Administration Dextrose 1,000 mls @ 100 mls/hr 02/28/24 19:23 Dextrose 5% 1,000 Ml IVPB PRN PRN Hypoglycemia Protocol Fentanyl Citrate 2,500 mcg in 250 mls @ 10 mls/hr 02/28/24 21:20 03/03/24 14:00 Fentanyl 2,500 Mcg/Ns 250 Ml IV CONT 100 mcg/hr .Q25H JASON 10 mls/hr Titration Protocol 100 MCG/HR Midazolam HCl 100 mg in 100 mls @ 3 mls/hr 02/28/24 21:20 03/03/24 14:00 Versed 100 Mg/Ns 100 Ml IV CONT 3 mg/hr .[id number] JASON 3 mls/hr Titration Protocol 3 MG/HR Meropenem 1 gm in 100 mls @ 200 mls/hr 02/28/24 22:00 03/03/24 14:00 IVPB Infused Q8H JASON Infusion Clindamycin Phosphate 900 mg in 50 mls @ 50 mls/hr 02/28/24 21:00 03/03/24 13:22 Cleocin 900 Mg/D5w 50 Ml IVPB Infused Q8H JASON Infusion Vancomycin HCl 1,500 mg in 500 mls @ 250 mls/hr 03/03/24 22:00 Vancomycin 1,500 Mg/Ns 500 Ml IVPB Q24H JASON Cisatracurium Besylate 200 mg/ 100 mls @ 3.078 mls/hr 03/03/24 15:10 Dextrose IV CONT .[id number] JASON Protocol 1 MCG/KG/MIN Insulin Aspart 3 - 6 units 03/01/24 00:00 03/03/24 11:05 Insulin Aspart (*Bkc) 100 Units/Ml SUB-Q 5 units Q6H JASON Administration Protocol Insulin Glargine 20 units 03/03/24 09:00 03/03/24 08:09 Insulin Glargine (*Bkc) 100 Units/Ml SUB-Q 20 units DAILY JASON Administration Metoclopramide HCl 10 mg 03/02/24 12:00 03/03/24 11:35 Metoclopramide Hcl Inj 10 Mg/2 Ml Vial IV PUSH 03/03/24 18:01 Not Given Q6HR JASON Midodrine 10 mg 03/02/24 09:00 03/03/24 13:30 Midodrine Hcl 10 Mg Tablet PO 10 mg TID JASON Administration Multi-Ingred Cream/Lotion/Oil/Oint 1 applic 02/29/24 09:00 03/03/24 08:08 Mineral Oil/White Petrolatum Ointment EACH EYE 1 applic Q12HR JASON Administration Naloxone HCl 0.1 mg 02/28/24 19:15 Naloxone Hcl 0.4 Mg/Ml Vial IV PUSH Q2M PRN Opiate Reversal Pantoprazole Sodium 40 mg 03/02/24 09:00 03/03/24 08:08 Pantoprazole Sodium Iv 40 Mg Vial IV PUSH 40 mg Q12HR JASON Administration Sodium Chloride 10 ml 02/29/24 06:00 03/03/24 13:32 Central Line Flush IV PUSH 10 ml Q8HR JASON Administration Sodium Chloride 20 ml 02/28/24 23:37 Central Line Flush IV PUSH PRN PRN after blood draws Radiology Results: ITS Impressions Lower Extremity CTA 02/28/24 14:54 IMPRESSION: 1. 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 2. Moderate stenosis of right popliteal artery. 3. Osteomyelitis involving first proximal and distal phalanges and head of first metatarsal. Head CT 02/29/24 05:55 Impression: No intracranial hemorrhage, mass, or acute infarct. Stable chronic encephalomalacia in the high left parietal lobe. Atrophy and chronic white matter changes, as above. Chest/Abdomen/Pelvis CTA 02/29/24 06:02 Impression: Extensive right upper lobe consolidation and more mild right middle lobe consolidation, consistent with pneumonia. Consider aspiration pneumonia. Moderate to large right pleural effusion with complete atelectasis of the right lower lobe. Moderate left pleural effusion with minimal left basilar atelectasis. Small pericardial effusion. No definite acute abnormality in the abdomen or pelvis. Chronic compression fractures, as above. Chest X-Ray 03/03/24 11:09 IMPRESSION: Bilateral pneumonia. Differential include pulmonary edema and ARDS. Minimal right pleural effusion. Renal Ultrasound 03/03/24 15:45 IMPRESSION: 1. Normal kidneys without hydronephrosis. 2. Small amount of ascites in the abdomen and pelvis. Labs Labs: Laboratory Results - last 24 hr 03/02/24 03/03/24 03/03/24 17:57 00:01 05:07 WBC RBC Hgb Hct MCV MCH MCHC RDW Plt Count MPV Immature Gran % (Auto) Neut % (Auto) Lymph % (Auto) Alfalfa % (Auto) Eos % (Auto) Baso % (Auto) Lymph # (Auto) Alfalfa # (Auto) Eos # (Auto) Baso # (Auto) Abs Immat Gran (auto) Absolute Neuts (auto) Absolute Nucleated RBC Nucleated RBC % PT INR APTT Puncture Site Right radial ABG pH 7.465 H ABG pCO2 29.0 L ABG pO2 81.3 ABG PO2/FiO2 Ratio 2.71 ABG HCO3 20.4 L ABG O2 Saturation 96.7 ABG O2 Content 12.1 L ABG Base Excess -2.7 A-a Gradient 98.5 Oxyhemoglobin 94.9 Carboxyhemoglobin 1.6 Methemoglobin 0.3 Reduced Hemoglobin 3.2 Total Hemoglobin 9.0 L O2 Delivery Device Ventilator O2 Liters/Min Not Reportable Minute Volume Not Reportable Vent Rate 22 Vent Mode Cmv FiO2 30 Tidal Volume 450 PEEP 8 Peak Inspir Pressure Not Reportable Pressure Support Not Reportable Sodium Potassium Chloride Carbon Dioxide Anion Gap BUN Creatinine Estim Creat Clear Calc Estimated GFR Glucose POC Capillary Glucose 243 H 248 H Lactic Acid Calcium Magnesium Total Bilirubin AST ALT Alkaline Phosphatase Total Creatine Kinase Total Protein Albumin Urine Eosinophils Ur Random Sodium Ur Random Potassium Urine Creatinine Vancomycin Trough 03/03/24 03/03/24 03/03/24 06:06 06:08 09:09 WBC 17.5 H RBC 3.11 L Hgb 8.4 L Hct 26.4 L MCV 84.9 MCH 27.0 MCHC 31.8 L RDW 15.3 H Plt Count 437 H MPV 8.9 Immature Gran % (Auto) 2.1 H Neut % (Auto) 87.0 H Lymph % (Auto) 5.7 L Alfalfa % (Auto) 5.0 Eos % (Auto) 0.0 Baso % (Auto) 0.2 Lymph # (Auto) 1.00 Alfalfa # (Auto) 0.9 H Eos # (Auto) 0.0 Baso # (Auto) 0.0 Abs Immat Gran (auto) 0.36 H Absolute Neuts (auto) 15.2 H Absolute Nucleated RBC 0.000 Nucleated RBC % 0.0 PT 19.2 H INR 1.6 APTT 53.7 H Puncture Site ABG pH ABG pCO2 ABG pO2 ABG PO2/FiO2 Ratio ABG HCO3 ABG O2 Saturation ABG O2 Content ABG Base Excess A-a Gradient Oxyhemoglobin Carboxyhemoglobin Methemoglobin Reduced Hemoglobin Total Hemoglobin O2 Delivery Device O2 Liters/Min Minute Volume Vent Rate Vent Mode FiO2 Tidal Volume PEEP Peak Inspir Pressure Pressure Support Sodium 134 L Potassium 4.5 Chloride 106 Carbon Dioxide 20 L Anion Gap 8 BUN 53 H D Creatinine 1.50 H Estim Creat Clear Calc 51 Estimated GFR 47 L Glucose 269 H POC Capillary Glucose 265 H Lactic Acid 1.2 Calcium 7.6 L Magnesium 2.6 H Total Bilirubin 0.2 AST 38 ALT 25 Alkaline Phosphatase 83 Total Creatine Kinase 34 L Total Protein 6.0 L Albumin 3.0 L Urine Eosinophils None seen Ur Random Sodium 20 Ur Random Potassium 48.3 Urine Creatinine 76.7 Vancomycin Trough 03/03/24 03/03/24 03/03/24 11:03 12:16 13:28 WBC RBC Hgb Hct MCV MCH MCHC RDW Plt Count MPV Immature Gran % (Auto) Neut % (Auto) Lymph % (Auto) Alfalfa % (Auto) Eos % (Auto) Baso % (Auto) Lymph # (Auto) Alfalfa # (Auto) Eos # (Auto) Baso # (Auto) Abs Immat Gran (auto) Absolute Neuts (auto) Absolute Nucleated RBC Nucleated RBC % PT INR APTT Puncture Site Right radial ABG pH 7.284 L* ABG pCO2 44.6 ABG pO2 81.1 ABG PO2/FiO2 Ratio 0.81 ABG HCO3 20.7 L ABG O2 Saturation 94.6 L ABG O2 Content 15.0 L ABG Base Excess -5.8 A-a Gradient 587.3 Oxyhemoglobin 93.1 Carboxyhemoglobin Methemoglobin Reduced Hemoglobin Total Hemoglobin 11.4 L O2 Delivery Device Ventilator O2 Liters/Min Not Reportable Minute Volume Not Reportable Vent Rate 24 Vent Mode Cmv FiO2 100 Tidal Volume 410 PEEP 12 Peak Inspir Pressure Not Reportable Pressure Support Not Reportable Sodium Potassium Chloride Carbon Dioxide Anion Gap BUN Creatinine Estim Creat Clear Calc Estimated GFR Glucose POC Capillary Glucose 321 H Lactic Acid Calcium Magnesium Total Bilirubin AST ALT Alkaline Phosphatase Total Creatine Kinase Total Protein Albumin Urine Eosinophils Ur Random Sodium Ur Random Potassium Urine Creatinine Vancomycin Trough 23.0 H
[2024-03-03 17:34] LABS: Glucose Point of Care 276 mg/dl (65-105)
[2024-03-03 20:17] LABS: Alveolar/Arterial O2 Gradient 403.2 mmHg; Fractional Inspired Oxygen 80 %; HCO3 ABG 20.7 mEq/l (22.0-26.0); Oxygen Content ABG 14.1 %vol (16.0-22.0); Oxygen Saturation ABG 98.7 % (95.0-100.0); Oxyhemoglobin 98.3 % THb (90.0-100.0); PCO2 ABG 32.4 mmHg (35.0-45.0); PO2 ABG 133.2 mmHg (80.0-100.0); PO2 FiO2 Ratio Arterial Blood 1.66 %; pH ABG 7.424 (7.350-7.450)
[2024-03-03 20:18] LABS: Site Drawn ARTLINE
[2024-03-03 20:19] LABS: Arterial Blood Gas PEEP 12 cmH2O; Arterial Blood Gas Tidal Volume 410 ml; Arterial Blood Gas Vent Mode CMV; Arterial Blood Gas Ventilator rate 24 /MIN; Device VENTILATOR; Modified Allen's Test Pass
[2024-03-03 20:28] LABS: Arterial Blood Gas Ventilator rate 26 /MIN
[2024-03-03] MEDS: VANCOMYCIN 1,500 MG/NS 500 ML 1,500 MG/500 ML BAG 250 MG IVPB (21:04)
[2024-03-03] MEDS: MIDAZOLAM 100MG/NS 100ML(*CRX) 100 MG/100 ML BAG IV CONT (23:22)
[2024-03-03 23:35] LABS: Glucose Point of Care 256 mg/dl (65-105)
[2024-03-04] VITALS (64 sets, daily range): BP systolic 107–162; BP diastolic 46–91; PULSE 58–105; RESP 20–22; TEMP 36.2–36.7; O2SAT 90–100
[2024-03-04] MEDS: FENTANYL 2,500MCG/NS250ML(*CRX 2,500 MCG/250 ML BAG 10 MCG IV CONT (02:00)
[2024-03-04] MEDS: IPRATROPIUM 0.5 MG/ALBUTEROL SULFATE 2.5 MG AMPUL.NEB 3 ML INHALATION ×5 (02:31→19:35)
[2024-03-04] MEDS: INSULIN ASPART (*BKC) 100 UNITS/ML SUB-Q ×4 (04:58→23:04)
[2024-03-04] MEDS: MEROPENEM 1 GM/NS 100 ML 1 GM/100 ML BAG IVPB ×3 (05:01→20:57)
[2024-03-04] MEDS: CISATRACURIUM BESYLATE 200 MG in DEXTROSE 5% 80 ML 6.16 ML IV CONT ×2 (05:03→23:00)
[2024-03-04 05:17] LABS: Alveolar/Arterial O2 Gradient 299.2 mmHg; Carboxyhemoglobin 0.7 % THb (0-2.0); Fractional Inspired Oxygen 60 %; HCO3 ABG 21.5 mEq/l (22.0-26.0); Methemoglobin ABG 0.3 %THb (0-1.5); Oxygen Content ABG 13.6 %vol (16.0-22.0); Oxygen Saturation ABG 97.5 % (95.0-100.0); Oxyhemoglobin 96.4 % THb (90.0-100.0); PCO2 ABG 32.3 mmHg (35.0-45.0); PO2 ABG 93.1 mmHg (80.0-100.0); PO2 FiO2 Ratio Arterial Blood 1.55 %; Reduced Hemoglobin 2.6 %THb (0-5.0); Total Hemoglobin 9.9 g/dL (12.0-18.0); pH ABG 7.442 (7.350-7.450)
[2024-03-04 05:19] LABS: Arterial Blood Gas PEEP 12 cmH2O; Arterial Blood Gas Tidal Volume 410 ml; Arterial Blood Gas Vent Mode CMV; Arterial Blood Gas Ventilator rate 22 /MIN; Device VENTILATOR; Modified Allen's Test Pass; Site Drawn ARTLINE
[2024-03-04] MEDS: HEPARIN SODIUM 5,000 UNITS/ML VIAL 5000 UNITS SUB-Q ×3 (05:25→20:57)
[2024-03-04] MEDS: CLINDAMYCIN 900 MG/D5W 50 ML 900 MG/50 ML PIGGYBACK 50 MG IVPB ×3 (05:26→20:57)
[2024-03-04] MEDS: CENTRAL LINE FLUSH 10 ML IV PUSH ×3 (05:26→20:57)
[2024-03-04 05:35] LABS: Hematocrit 28.6 % (42.0-52.0); Hemoglobin 9.1 g/dL (14.0-18.0); Mean Corpuscular HGB Conc 31.8 g/dl (32-36); Mean Corpuscular Hemoglobin 27.1 pg (26-34); Mean Corpuscular Volume 85.1 fl (80-100); Platelet Count Result 478 k/mm3 (150-375); Red Blood Count 3.36 M/mm3 (4.6-6.20); Red Cell Distribution Width 15.6 % (11.5-14.5); White Blood Count 20.2 K/mm3 (4.5-10.0)
[2024-03-04 05:46] LABS: Alanine Aminotransferase 36 U/L (6-50); Albumin Level 2.8 g/dL (3.5-5.1); Alkaline Phosphatase 89 U/L (38-126); Anion Gap 9 mmol/L (4-12); Aspartate Amino Transferase 65 U/L (17-59); Bilirubin,Total 0.3 mg/dL (0.2-1.3); Blood Urea Nitrogen 53 mg/dL (9-20); Calcium 7.7 mg/dL (8.4-10.2); Carbon Dioxide 20 mmol/L (22-30); Chloride 109 mmol/L (98-107); Estimated CRCL calculation 68 ml/min; Estimated Glomerular Filt Rate > 60; Glucose 272 mg/dL (65-110); INR 1.6; Lactic Acid Reflex 1.1 mmol/L (0.7-2.0); Magnesium 2.8 mg/dL (1.6-2.3); Potassium 4.5 mmol/L (3.4-5.0); Prothrombin Time 19.2 Seconds (11.1-14.7); Sodium 138 mmol/L (137-145)
[2024-03-04 06:34] LABS: Band Neutrophils Percent 7 % (0-6); Lymphocytes Percent Manual 2 % (18-44); Monocytes Percent Manual 1 % (3-9); Neutrophils Absolute Manual 19.59 K/mm3 (1.3-6.7); Neutrophils Percent Manual 90 % (46-73); Total Cells Counted 100
[2024-03-04 06:35] LABS: Anisocytosis 1+; Platelet Estimate Increased (Adequate); Schistocytes None Seen
[2024-03-04 06:43] LABS: Glucose Point of Care 263 mg/dl (65-105)
[2024-03-04] MEDS: ASPIRIN 81 MG CHEWABLE TABLET PO (08:05)
[2024-03-04] MEDS: MIDODRINE HCL 10 MG TABLET PO ×3 (08:05→17:09)
[2024-03-04] MEDS: ATORVASTATIN 40 MG TABLET 80 MG PO (08:05)
[2024-03-04] MEDS: METOCLOPRAMIDE HCL 10 MG/10 ML SOLN UDC FEED TUBE ×4 (08:05→23:01)
[2024-03-04] MEDS: INSULIN GLARGINE (*BKC) 100 UNITS/ML 30 UNITS SUB-Q (08:06)
[2024-03-04] MEDS: PANTOPRAZOLE SODIUM IV 40 MG VIAL IV PUSH ×2 (08:06→20:56)
[2024-03-04] MEDS: MIDAZOLAM HCL (*CRX) 2 MG/2 ML VIAL 4 MG IV PUSH (08:06)
[2024-03-04] MEDS: MINERAL OIL/WHITE PETROLATUM OINTMENT 1 APPLIC EACH EYE ×2 (08:07→20:56)
[2024-03-04] MEDS: FUROSEMIDE INJ 100 MG/10 ML VIAL 80 MG IV PUSH ×2 (08:07→17:08)
[2024-03-04] MEDS: CALCIUM GLUC 2,000 MG/NS 100ML 2,000 MG/100 ML BAG 100 MG IVPB (08:17)
--- NOTE | 2024-03-04 09:20 | P.PNNP_ITS ---
Progress Note: A&P Assessment and Plan (1) GORDON (acute kidney injury): Code(s): N17.9 - Acute kidney failure, unspecified Status: Acute Assessment and Plan: * improvement noted * normal creatinine on admission * creatinine now up to 1.5mg/dl * multifactorial etiology: * hemodynamic instability/shock * sepsis/infection * cardiac arrest * NSTEMI * hypoxia * BP medications prior to admission including losartan * evaluation to date: * normal renal ultrasound * CPK low normal * urine eosinophils negative * urine electrolytes prerenal * continue IV diuretics given better hemodynamics and issues with volume overload * follow trend of repeal labs and UOP (2) Septic shock: Code(s): A41.9 - Sepsis, unspecified organism; R65.21 - Severe sepsis with septic shock Status: Acute Assessment and Plan: * presumably due to right foot gangrene possible aspiration pneumonia complicated by cardiac arrest * follow culture data * lactic acid has improved * weaned off vasopressor therapy * on midodrine * on antibiotics * follow trend of hemodynamics (3) Cardiac arrest: Code(s): I46.9 - Cardiac arrest, cause unspecified Status: Acute Assessment and Plan: * etiology not entirely clear: * aspiration pneumonia(?) * NSTEMI * hypoxia * septic fermin * sepsis/infection * continue supportive therapy (4) Acute respiratory failure with hypoxia: Code(s): J96.01 - Acute respiratory failure with hypoxia Status: Acute Assessment and Plan: * secondary to cardiac arrest, possible aspiration/aspiration pneumonia, NSTEMI, septic shock and hypoxia * intubated and on mechanical ventilator support * complicated by known history of COPD * weaning as tolerated * diuresis as tolerated based on CXR findings (5) NSTEMI (non-ST elevated myocardial infarction): Code(s): I21.4 - Non-ST elevation (NSTEMI) myocardial infarction Status: Acute Assessment and Plan: * as noted by trend of troponins * EKG results noted * Cardiology following * on ASA and high dose statin therapy * holding metoprolol + losaratn given previous hypotension * s/p 48 hours of heparin gtt (6) Gangrene of right foot: Code(s): I96 - Gangrene, not elsewhere classified Status: Acute Assessment and Plan: * as noted by clinical exam on admission * complicated by known history of PVD/PAD: * CTA showed peripheral arterial disease with total occlusion of the right anterior and posterior tibial arteries and right peroneal artery with distal reconstitution of peroneal artery. This extensive gangrene of the right foot with gas seen on CT of the foot * Surgery following * will need surgical intervention * tentative plan was right BKA prior to cardiac arrest * on antibiotics (necrotiing gangrene with gas) (7) 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: Code(s): E11.9 - Type 2 diabetes mellitus without complications Status: Chronic Assessment and Plan: * follow accu-cheks * glycemic control per assistant plant controller/hospitalist Will continue to follow. Subjective Date/time seen: 03/04/24 09:20 Interval history: Follow-up for acute kidney injury/acute renal failure. Improvement in renal function/creatinine in the last 24 hours; remains intubated/sedated/paralyzed and on mechanical ventilation; hemodynamically stable off vasopressor therapy; reasonable response to IV diuretic therapy yesterday; no other acute issues/events overnight or earlier this morning. Exam Narrative: General: WD/WN male intubated/sedated/paralyzed and on mechanical ventilation Heart: normal S1 and S2; no rub Lungs: coarse breath sound; decreased at bases Abdomen: soft, nontender, nondistended, decreased bowel sounds Extremities: no cyanosis or clubbing; + edema (right foot) Skin: right foot dressings are in place Objective Data Vital Signs Vital Signs: Vital Signs Temp Pulse Resp BP Pulse Ox O2 Del Method FiO2 03/04/24 09:05 67 20 114/49 L 03/04/24 08:00 97.4 F L 83 20 141/68 H 100 03/04/24 08:00 50 03/04/24 08:00 99 Mechanical Ventilation 50 03/04/24 07:56 Mechanical Ventilation 50 03/04/24 07:58 93 22 H 156/76 H 03/04/24 07:00 62 22 H 108/51 L 03/04/24 07:57 93 22 H 03/04/24 07:56 93 20 03/04/24 08:08 78 20 03/04/24 07:50 71 100 Mechanical Ventilation 60 03/04/24 07:50 71 22 H 03/04/24 06:00 93 22 H 144/67 H 03/04/24 06:00 93 22 H 03/04/24 06:00 93 22 H 03/04/24 06:00 97.4 F L 80 22 H 142/66 H 100 03/04/24 06:00 80 03/04/24 04:00 100 Mechanical Ventilation 60 03/04/24 04:00 85 22 H 03/04/24 04:00 85 22 H 03/04/24 05:09 93 100 Mechanical Ventilation 60 03/04/24 05:00 85 22 H 131/70 03/04/24 05:03 85 22 H 131/70 03/04/24 04:00 85 22 H 147/67 H 03/04/24 04:00 97.5 F L 84 22 H 146/87 H 99 03/04/24 04:00 84 03/04/24 04:00 60 03/04/24 02:41 81 22 H 03/04/24 02:32 83 22 H 03/04/24 02:32 83 100 Mechanical Ventilation 60 03/04/24 02:00 61 22 H 03/04/24 02:00 61 22 H 121/57 L 03/04/24 02:00 61 22 H 03/04/24 02:00 61 22 H 03/04/24 02:00 97.5 F L 61 22 H 107/60 100 03/04/24 02:00 61 03/04/24 00:00 71 22 H 125/58 L 03/03/24 22:30 75 22 H 120/65 03/04/24 00:00 71 22 H 03/04/24 00:00 71 22 H 03/04/24 00:00 97.4 F L 71 22 H 125/58 L 100 03/04/24 00:00 71 03/03/24 23:47 60 03/03/24 23:41 100 Mechanical Ventilation 60 03/03/24 23:19 82 100 Mechanical Ventilation 60 03/03/24 23:22 77 22 H 03/03/24 23:22 77 22 H 03/03/24 21:40 86 22 H 130/64 03/03/24 22:00 72 22 H 109/51 L 03/03/24 22:00 71 22 H 03/03/24 22:00 71 22 H 03/03/24 22:00 97.4 F L 71 22 H 109/51 L 100 03/03/24 22:00 71 03/03/24 20:00 63 03/03/24 21:21 86 22 H 131/63 03/03/24 20:00 62 26 H 03/03/24 19:59 62 26 H 03/03/24 20:00 62 26 H 03/03/24 19:58 62 26 H 03/03/24 20:00 97.5 F L 62 26 H 107/47 L 100 03/03/24 20:00 100 Mechanical Ventilation 80 03/03/24 21:06 89 22 H 138/64 03/03/24 20:46 80 22 H 132/60 03/03/24 20:00 62 26 H 107/47 L 03/03/24 20:33 82 22 H 03/03/24 20:20 72 22 H 03/03/24 20:20 72 100 Mechanical Ventilation 60 03/03/24 19:48 80 03/03/24 18:00 97.2 F L 69 24 H 102/45 L 100 03/03/24 18:00 88 03/03/24 18:01 88 26 H 131/58 L 03/03/24 17:00 74 26 H 105/49 L 03/03/24 16:00 88 26 H 103/50 L 03/03/24 15:00 107 H 26 H 159/73 H 03/03/24 17:59 88 26 H 03/03/24 16:00 88 26 H 03/03/24 17:58 89 26 H 03/03/24 16:00 88 26 H 03/03/24 15:10 90 25 H 03/03/24 14:45 94 24 H 03/03/24 17:33 93 98 Mechanical Ventilation 80 03/03/24 16:00 85 03/03/24 14:00 92 03/03/24 12:00 139 H 03/03/24 16:00 90 03/03/24 16:00 96.9 F L 82 26 H 101/49 L 99 03/03/24 12:00 100 03/03/24 14:01 96.7 F L 90 26 H 103/58 L 97 03/03/24 12:01 97.0 F L 131 H 23 H 161/99 H 89 L 03/03/24 16:00 87 26 H 98 Mechanical Ventilation 90 03/03/24 12:00 131 H 23 H 89 L Mechanical Ventilation 100 03/03/24 14:00 93 26 H 03/03/24 12:00 118 H 25 H 03/03/24 11:45 98 24 H 03/03/24 14:00 93 26 H 03/03/24 12:00 118 H 25 H 03/03/24 11:45 98 24 H 03/03/24 14:00 93 26 H 105/47 L 03/03/24 13:45 111 H 26 H 148/68 H 03/03/24 13:30 104 H 26 H 134/61 03/03/24 13:15 108 H 26 H 145/68 H 03/03/24 14:07 99 97 Mechanical Ventilation 90 03/03/24 13:01 115 H 26 H 149/82 H 03/03/24 11:30 100 24 H 03/03/24 11:30 101 H 24 H Intake/Output Intake/Output: Intake & Output 03/01/24 03/02/24 03/03/24 03/04/24 23:59 23:59 23:59 23:59 Intake Total 4725.3 3016.0 2079.4 1064.3 Output Total 965 329 6163 650 Balance 4100.3 2516.0 724.4 414.3 Meds/Results Medications: Active Medications Generic Name Dose Route Start Last Admin Trade Name Freq PRN Reason Stop Dose Admin Acetaminophen 500 mg 02/28/24 19:15 Acetaminophen 500 Mg Tablet PO Q6H PRN Pain Rated 1-3 Albuterol/Ipratropium 3 ml 02/29/24 02:00 03/04/24 07:48 Ipratropium 0.5 Mg/Albuterol Sulfate 2.5 Mg Ampul.Neb 3 Ml INHALATION 3 ml Q6HRT JASON Administration Aspirin 81 mg 03/01/24 08:00 03/04/24 08:05 Aspirin 81 Mg Chewable Tablet PO 81 mg DAILY@0800 JASON Administration Atorvastatin Calcium 80 mg 03/01/24 09:00 03/04/24 08:05 Atorvastatin 40 Mg Tablet PO 80 mg DAILY JASON Administration Dextrose 12.5 gm 02/28/24 19:23 Dextrose 50% 25 Gm/50 Ml Syringe IV PUSH PRN PRN Hypoglycemia Protocol Furosemide 80 mg 03/04/24 09:00 03/04/24 08:07 Furosemide Inj 100 Mg/10 Ml Vial IV PUSH 03/04/24 17:01 80 mg BID JASON Administration Glucagon 1 mg 02/28/24 19:23 Glucagon For Inj 1 Mg Vial IM PRN PRN Hypoglycemia Protocol Glucose 15 gm 02/28/24 19:23 Glucose Oral Gel 15 Gm Of Glucse In 37.5 Gm Tube PO PRN PRN Hypoglycemia Protocol Heparin Sodium (Porcine) 5,000 units 03/03/24 14:00 03/04/24 05:25 Heparin Sodium 5,000 Units/Ml Vial SUB-Q 5,000 units Q8HR JASON Administration Hydralazine HCl 10 mg 03/03/24 15:19 Hydralazine Hcl 20 Mg/Ml Vial IV PUSH Q4HR PRN Hypertension Hydrocortisone Sodium Succinate 50 mg 03/03/24 12:00 03/03/24 23:30 Hydrocortisone Sodium Succinate 100 Mg/2 Ml Vial IV PUSH 03/05/24 00:01 50 mg Q12H JASON Administration Dextrose 1,000 mls @ 100 mls/hr 02/28/24 19:23 Dextrose 5% 1,000 Ml IVPB PRN PRN Hypoglycemia Protocol Fentanyl Citrate 2,500 mcg in 250 mls @ 10 mls/hr 02/28/24 21:20 03/04/24 10:05 Fentanyl 2,500 Mcg/Ns 250 Ml IV CONT 100 mcg/hr .Q25H JASON 10 mls/hr Titration Protocol 100 MCG/HR Midazolam HCl 100 mg in 100 mls @ 5 mls/hr 02/28/24 21:20 03/04/24 10:05 Versed 100 Mg/Ns 100 Ml IV CONT 5 mg/hr .Q20H JASON 5 mls/hr Titration Protocol 5 MG/HR Meropenem 1 gm in 100 mls @ 200 mls/hr 02/28/24 22:00 03/04/24 06:21 IVPB Infused Q8H JASON Infusion Clindamycin Phosphate 900 mg in 50 mls @ 50 mls/hr 02/28/24 21:00 03/04/24 09:52 Cleocin 900 Mg/D5w 50 Ml IVPB 03/04/24 21:59 Infused Q8H JASON Infusion Vancomycin HCl 1,500 mg in 500 mls @ 250 mls/hr 03/03/24 22:00 03/03/24 23:32 Vancomycin 1,500 Mg/Ns 500 Ml IVPB Infused Q24H JASON Infusion Cisatracurium Besylate 200 mg/ 100 mls @ 4.617 mls/hr 03/03/24 15:10 03/04/24 11:02 Dextrose IV CONT 1 mcg/kg/min .[id number] JASON 3.08 mls/hr Titration Protocol 1.5 MCG/KG/MIN Insulin Aspart 3 - 6 units 03/01/24 00:00 03/04/24 04:58 Insulin Aspart (*Bkc) 100 Units/Ml SUB-Q 4 units Q6H JASON Administration Protocol Insulin Glargine 30 units 03/04/24 09:00 03/04/24 08:06 Insulin Glargine (*Bkc) 100 Units/Ml SUB-Q 30 units DAILY JASON Administration Metoclopramide HCl 10 mg 03/04/24 08:00 03/04/24 08:05 Metoclopramide Hcl 10 Mg/10 Ml Soln Udc FEED TUBE 10 mg Q6HR JASON Administration Midodrine 10 mg 03/02/24 09:00 03/04/24 08:05 Midodrine Hcl 10 Mg Tablet PO 10 mg TID JASON Administration Multi-Ingred Cream/Lotion/Oil/Oint 1 applic 02/29/24 09:00 03/04/24 08:07 Mineral Oil/White Petrolatum Ointment EACH EYE 1 applic Q12HR JASON Administration Naloxone HCl 0.1 mg 02/28/24 19:15 Naloxone Hcl 0.4 Mg/Ml Vial IV PUSH Q2M PRN Opiate Reversal Pantoprazole Sodium 40 mg 03/02/24 09:00 03/04/24 08:06 Pantoprazole Sodium Iv 40 Mg Vial IV PUSH 40 mg Q12HR JASON Administration Sodium Chloride 10 ml 02/29/24 06:00 03/04/24 05:26 Central Line Flush IV PUSH 10 ml Q8HR JASON Administration Sodium Chloride 20 ml 02/28/24 23:37 Central Line Flush IV PUSH PRN PRN after blood draws Radiology Results: ITS Impressions Lower Extremity CTA 02/28/24 14:54 IMPRESSION: 1. 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 2. Moderate stenosis of right popliteal artery. 3. Osteomyelitis involving first proximal and distal phalanges and head of first metatarsal. Head CT 02/29/24 05:55 Impression: No intracranial hemorrhage, mass, or acute infarct. Stable chronic encephalomalacia in the high left parietal lobe. Atrophy and chronic white matter changes, as above. Chest/Abdomen/Pelvis CTA 02/29/24 06:02 Impression: Extensive right upper lobe consolidation and more mild right middle lobe consolidation, consistent with pneumonia. Consider aspiration pneumonia. Moderate to large right pleural effusion with complete atelectasis of the right lower lobe. Moderate left pleural effusion with minimal left basilar atelectasis. Small pericardial effusion. No definite acute abnormality in the abdomen or pelvis. Chronic compression fractures, as above. Renal Ultrasound 03/03/24 15:45 IMPRESSION: 1. Normal kidneys without hydronephrosis. 2. Small amount of ascites in the abdomen and pelvis. Chest X-Ray 03/04/24 08:33 IMPRESSION: Bilateral pneumonia. Right pleural effusion. Labs Labs: Laboratory Tests 03/04/24 05:20 03/04/24 05:20 Lactic Acid 1.1 Calcium 7.7 L Magnesium 2.8 H Total Bilirubin 0.3 AST 65 H ALT 36 Alkaline Phosphatase 89 Total Protein 6.0 L Albumin 2.8 L Microbiology 02/29/24 20:34 Sputum Sputum Culture - Final
--- NOTE | 2024-03-04 10:35 | P.PNINT_ITS ---
Progress Note: A&P Assessment and Plan (1) Acute respiratory failure with hypoxia: Code(s): J96.01 - Acute respiratory failure with hypoxia Status: Acute Assessment and Plan: Acute respiratory failure likely related to cardiac arrest, aspiration pneumonia, NSTEMI, hypoxia, septic shock Worsening likely secondary to ARDS versus pulmonary edema -currently CMV mode of ventilation, peep of 12, 60% FiO2 -chest x-ray reviewed. Advance ET tube by 4 cm -continue bronchodilators -on fentanyl and Versed infusion for sedation and Nimbex for neuromuscular brayden -wean PEEP down to 12 -continue diuresis (2) Cardiac arrest with pulseless electrical activity: Code(s): I46.9 - Cardiac arrest, cause unspecified Status: Acute Assessment and Plan: Cardiac arrest, secondary to unknown etiology. Possible aspiration pneumonia, NSTEMI, hypoxia, septic shock, infection -see code blue sheet for the details -patient currently intubated, vasopressors for blood pressure support -appreciate cardiology following the patient 02/29/2024 echocardiogram Summary 1. Technically difficult study with limited views. 2. Left ventricular chamber dimension is normal. 3. Left ventricular systolic function is mildly reduced, estimated at 45-50%. The apex appears to be hypokinetic. 4. There is mildly increased left ventricular wall thickness. 5. The left ventricular diastolic function is grade I diastolic dysfunction. 6. Right ventricular systolic function is normal. 7. Left atrial chamber dimension is moderately enlarged. 8. There is mild to moderate tricuspid valve regurgitation. 9. There is small anterior pericardial effusion. (3) Septic shock: Code(s): A41.9 - Sepsis, unspecified organism; R65.21 - Severe sepsis with septic shock Status: Acute Assessment and Plan: Patient in shock, likely related to the gangrene, aspiration pneumonia, status post cardiac arrest 02/28/2024: Blood cultures have been obtained and negative till now -lactic acid has normalized -patient has been adequately fluid-resuscitated -OFF Levophed -wean stress dose steroids -continue midodrine -status post albumin for intravascular volume expansion (4) NSTEMI (non-ST elevated myocardial infarction): Code(s): I21.4 - Non-ST elevation (NSTEMI) myocardial infarction Status: Acute Assessment and Plan: Increasing troponins, -EKG showed sinus rhythm with T-wave changes in V1 to V5 -appreciate cardiology evaluation and recommendation -Continue aspirin and high-dose a statin -will hold Brilinta -will also hold beta-brayden, losartan which is home med, since he is hypotensive on vasopressors -03/02 heparin infusion was discontinued after 48 hours for NSTEMI by cardiology (5) Gangrene of right foot: Code(s): I96 - Gangrene, not elsewhere classified Status: Acute Assessment and Plan: CTA showed peripheral arterial disease with total occlusion of the right anterior and posterior tibial arteries and right peroneal artery with distal reconstitution of peroneal artery. This extensive gangrene of the right foot with gas seen on CT of the foot. -pre following the patient, plan was to do a below-knee amputation on 02/29/2024 but given his cardiac arrest, NSTEMI and on pressors this has been deferred. Discussed with surgery -continue antibiotics for necrotizing gas gangrene. Patient on meropenem, clindamycin and vancomycin which was started on 02/28/2024 -amputation plan by surgery. Will discuss with surgery regarding timing (6) Osteomyelitis of toe of right foot: Code(s): M86.9 - Osteomyelitis, unspecified Status: Chronic Assessment and Plan: As above (7) Peripheral vascular disease: Code(s): I73.9 - Peripheral vascular disease, unspecified Status: Chronic Assessment and Plan: Patient has history of peripheral vascular disease, coronary artery disease -started on aspirin, patient will require Brilinta since he had a STEMI in 2020 but currently holding Brilinta due to possible amputation (8) Type 2 diabetes mellitus: Qualifiers: 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 complication status: with other specified complication 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 half-way insulin use: with half-way use Qualified Code(s): E11.69 - Type 2 diabetes mellitus with other specified complication; Z79.4 - group home (current) use of insulin Code(s): E11.9 - Type 2 diabetes mellitus without complications Status: Acute Assessment and Plan: Currently on sliding scale insulin, Accu-Cheks Hemoglobin A1c this admission is 8.2 Increase Lantus (9) Chronic obstructive pulmonary disease: Code(s): J44.9 - Chronic obstructive pulmonary disease, unspecified Status: Acute Assessment and Plan: Continue DuoNebs -continue Symbicort Plan DVT prophylaxis: Heparin subQ Stress ulcer prophylaxis: Protonix Nutrition: Tube feeds at goal and tolerating Code Status: Full code. Patient has no family available Critical Care Time Spent: 30 minutes Due to a high probability of clinically significant, life threatening deterioration, the patient required my highest level of preparedness to intervene emergently and I personally spent this critical care time directly and personally managing the patient. This critical care time included obtaining a history; examining the patient; pulse oximetry; ordering and review of studies; arranging urgent treatment with development of a management plan; evaluation of patient's response to treatment; frequent reassessment; and discussions with other providers. It was exclusive of separately billable procedures and treating other patients and teaching time. Please see Assessment and Plan section and the rest of the note for further information on patient assessment and treatment This dictation may have been done utilizing a voice recognition system. Attempts have been made to correct errors. However, there may be uncorrected grammatical, spelling, and recognitions errors present. Subjective Date/time seen: 03/04/24 Overnight events reviewed. Afebrile Continues to be on mechanical ventilation 60% FiO2 and 12 peep Tolerating tube feeds Continues to be sedated with Versed fentanyl and paralyzed with Nimbex infusion Other Vitals acceptable Review of Systems Review of Systems: ROS unobtainable: Yes unobtainable due to endotracheal tube, unobtainable due to medical condition and unobtainable due to mental status Exam Narrative: General: Patient intubated and sedated and chemically paralyzed HEENT:, pupils are equal and reactive from a sclera is clear Neck:? supple Respiratory:? Coarse breath sounds bilaterally, decreased at bases, adequate air entry Cardiac:? S1-S2 normal, regular rate and rhythm Abdomen:? Soft, nontender, nondistended, hypoactive bowel sounds Extremities:? Gangrenous right 1st toe down to the 1st metatarsal, dorsum of the foot and all the way to approximately the heel on the medial aspect and plantar aspect of the foot over the 1st metatarsal. Purulent drainage and foul order. There is also erythema and swelling of the right foot. Right foot is now in a dressing. Posterior tibial and pedal pulses are not palpable Neuro:? Patient is intubated, sedated, and chemically paralyzed PERRL Skin:? Patient has maceration of his perianal area, and states to pressure ulcer on his buttocks. Psych:? Unable to assess at this time Objective Data Vital Signs Vital Signs: Vital Signs - 24 hr 10/21/24 10:43 03/03/24 10:40 03/03/24 10:40 Temperature Pulse Rate 141 H 157 H 157 H Respiratory Rate 40 H 40 H Blood Pressure Pulse Oximetry Oxygen Delivery Fraction of Inspired Oxygen 03/03/24 11:00 03/03/24 11:18 03/03/24 10:45 Temperature Pulse Rate 115 H 106 H Respiratory Rate 15 Blood Pressure Pulse Oximetry 97 Oxygen Delivery Mechanical Ventilation Fraction of Inspired Oxygen 100 100 03/03/24 11:00 03/03/24 10:45 03/03/24 11:00 Temperature Pulse Rate 108 H 106 H 108 H Respiratory Rate 17 15 17 Blood Pressure Pulse Oximetry Oxygen Delivery Fraction of Inspired Oxygen 03/03/24 11:15 03/03/24 11:15 03/03/24 11:30 Temperature Pulse Rate 104 H 104 H 101 H Respiratory Rate 24 H 24 H 24 H Blood Pressure Pulse Oximetry Oxygen Delivery Fraction of Inspired Oxygen 03/03/24 11:30 03/03/24 13:01 03/03/24 14:07 Temperature Pulse Rate 100 115 H 99 Respiratory Rate 24 H 26 H Blood Pressure 149/82 H Pulse Oximetry 97 Oxygen Delivery Mechanical Ventilation Fraction of Inspired Oxygen 90 03/03/24 13:15 03/03/24 13:30 03/03/24 13:45 Temperature Pulse Rate 108 H 104 H 111 H Respiratory Rate 26 H 26 H 26 H Blood Pressure 145/68 H 134/61 148/68 H Pulse Oximetry Oxygen Delivery Fraction of Inspired Oxygen 03/03/24 14:00 03/03/24 11:45 03/03/24 12:00 Temperature Pulse Rate 93 98 118 H Respiratory Rate 26 H 24 H 25 H Blood Pressure 105/47 L Pulse Oximetry Oxygen Delivery Fraction of Inspired Oxygen 03/03/24 14:00 03/03/24 11:45 03/03/24 12:00 Temperature Pulse Rate 93 98 118 H Respiratory Rate 26 H 24 H 25 H Blood Pressure Pulse Oximetry Oxygen Delivery Fraction of Inspired Oxygen 03/03/24 14:00 03/03/24 12:00 03/03/24 16:00 Temperature Pulse Rate 93 131 H 87 Respiratory Rate 26 H 23 H 26 H Blood Pressure Pulse Oximetry 89 L 98 Oxygen Delivery Mechanical Ventilation Mechanical Ventilation Fraction of Inspired Oxygen 100 90 03/03/24 12:01 03/03/24 14:01 03/03/24 10:40 Temperature 36.1 C L 35.9 C L Pulse Rate 131 H 90 Respiratory Rate 23 H 26 H Blood Pressure 161/99 H 103/58 L Pulse Oximetry 89 L 97 Oxygen Delivery Fraction of Inspired Oxygen 100 03/03/24 12:00 03/03/24 16:00 03/03/24 16:00 Temperature 36.1 C L Pulse Rate 82 Respiratory Rate 26 H Blood Pressure 101/49 L Pulse Oximetry 99 Oxygen Delivery Fraction of Inspired Oxygen 100 90 03/03/24 12:00 03/03/24 14:00 03/03/24 16:00 Temperature Pulse Rate 139 H 92 85 Respiratory Rate Blood Pressure Pulse Oximetry Oxygen Delivery Fraction of Inspired Oxygen 03/03/24 17:33 03/03/24 14:45 03/03/24 15:10 Temperature Pulse Rate 93 94 90 Respiratory Rate 24 H 25 H Blood Pressure Pulse Oximetry 98 Oxygen Delivery Mechanical Ventilation Fraction of Inspired Oxygen 80 03/03/24 16:00 03/03/24 17:58 03/03/24 16:00 Temperature Pulse Rate 88 89 88 Respiratory Rate 26 H 26 H 26 H Blood Pressure Pulse Oximetry Oxygen Delivery Fraction of Inspired Oxygen 03/03/24 17:59 03/03/24 15:00 03/03/24 16:00 Temperature Pulse Rate 88 107 H 88 Respiratory Rate 26 H 26 H 26 H Blood Pressure 159/73 H 103/50 L Pulse Oximetry Oxygen Delivery Fraction of Inspired Oxygen 03/03/24 17:00 03/03/24 18:01 03/03/24 18:00 Temperature Pulse Rate 74 88 88 Respiratory Rate 26 H 26 H Blood Pressure 105/49 L 131/58 L Pulse Oximetry Oxygen Delivery Fraction of Inspired Oxygen 03/03/24 18:00 03/03/24 19:48 03/03/24 20:20 Temperature 36.2 C L Pulse Rate 69 72 Respiratory Rate 24 H Blood Pressure 102/45 L Pulse Oximetry 100 100 Oxygen Delivery Mechanical Ventilation Fraction of Inspired Oxygen 80 60 03/03/24 20:20 03/03/24 20:33 03/03/24 20:00 Temperature Pulse Rate 72 82 62 Respiratory Rate 22 H 22 H 26 H Blood Pressure 107/47 L Pulse Oximetry Oxygen Delivery Fraction of Inspired Oxygen 03/03/24 20:46 03/03/24 21:06 03/03/24 20:00 Temperature Pulse Rate 80 89 Respiratory Rate 22 H 22 H Blood Pressure 132/60 138/64 Pulse Oximetry 100 Oxygen Delivery Mechanical Ventilation Fraction of Inspired Oxygen 80 03/03/24 20:00 03/03/24 19:58 03/03/24 20:00 Temperature 36.4 C L Pulse Rate 62 62 62 Respiratory Rate 26 H 26 H 26 H Blood Pressure 107/47 L Pulse Oximetry 100 Oxygen Delivery Fraction of Inspired Oxygen 03/03/24 19:59 03/03/24 20:00 03/03/24 21:21 Temperature Pulse Rate 62 62 86 Respiratory Rate 26 H 26 H 22 H Blood Pressure 131/63 Pulse Oximetry Oxygen Delivery Fraction of Inspired Oxygen 03/03/24 20:00 03/03/24 22:00 03/03/24 22:00 Temperature 36.3 C L Pulse Rate 63 71 71 Respiratory Rate 22 H Blood Pressure 109/51 L Pulse Oximetry 100 Oxygen Delivery Fraction of Inspired Oxygen 03/03/24 22:00 03/03/24 22:00 03/03/24 22:00 Temperature Pulse Rate 71 71 72 Respiratory Rate 22 H 22 H 22 H Blood Pressure 109/51 L Pulse Oximetry Oxygen Delivery Fraction of Inspired Oxygen 03/03/24 21:40 03/03/24 23:22 03/03/24 23:22 Temperature Pulse Rate 86 77 77 Respiratory Rate 22 H 22 H 22 H Blood Pressure 130/64 Pulse Oximetry Oxygen Delivery Fraction of Inspired Oxygen 03/03/24 23:19 03/03/24 23:41 03/03/24 23:47 Temperature Pulse Rate 82 Respiratory Rate Blood Pressure Pulse Oximetry 100 100 Oxygen Delivery Mechanical Ventilation Mechanical Ventilation Fraction of Inspired Oxygen 60 60 60 03/04/24 00:00 03/04/24 00:00 03/04/24 00:00 Temperature 36.3 C L Pulse Rate 71 71 71 Respiratory Rate 22 H 22 H Blood Pressure 125/58 L Pulse Oximetry 100 Oxygen Delivery Fraction of Inspired Oxygen 03/04/24 00:00 03/03/24 22:30 03/04/24 00:00 Temperature Pulse Rate 71 75 71 Respiratory Rate 22 H 22 H 22 H Blood Pressure 120/65 125/58 L Pulse Oximetry Oxygen Delivery Fraction of Inspired Oxygen 03/04/24 02:00 03/04/24 02:00 03/04/24 02:00 Temperature 36.4 C L Pulse Rate 61 61 61 Respiratory Rate 22 H 22 H Blood Pressure 107/60 Pulse Oximetry 100 Oxygen Delivery Fraction of Inspired Oxygen 03/04/24 02:00 03/04/24 02:00 03/04/24 02:00 Temperature Pulse Rate 61 61 61 Respiratory Rate 22 H 22 H 22 H Blood Pressure 121/57 L Pulse Oximetry Oxygen Delivery Fraction of Inspired Oxygen 03/04/24 02:32 03/04/24 02:32 03/04/24 02:41 Temperature Pulse Rate 83 83 81 Respiratory Rate 22 H 22 H Blood Pressure Pulse Oximetry 100 Oxygen Delivery Mechanical Ventilation Fraction of Inspired Oxygen 60 03/04/24 04:00 03/04/24 04:00 03/04/24 04:00 Temperature 36.4 C L Pulse Rate 84 84 Respiratory Rate 22 H Blood Pressure 146/87 H Pulse Oximetry 99 Oxygen Delivery Fraction of Inspired Oxygen 60 03/04/24 04:00 03/04/24 05:03 03/04/24 05:00 Temperature Pulse Rate 85 85 85 Respiratory Rate 22 H 22 H 22 H Blood Pressure 147/67 H 131/70 131/70 Pulse Oximetry Oxygen Delivery Fraction of Inspired Oxygen 03/04/24 05:09 03/04/24 04:00 03/04/24 04:00 Temperature Pulse Rate 93 85 85 Respiratory Rate 22 H 22 H Blood Pressure Pulse Oximetry 100 Oxygen Delivery Mechanical Ventilation Fraction of Inspired Oxygen 60 03/04/24 04:00 03/04/24 06:00 03/04/24 06:00 Temperature 36.3 C L Pulse Rate 80 80 Respiratory Rate 22 H Blood Pressure 142/66 H Pulse Oximetry 100 100 Oxygen Delivery Mechanical Ventilation Fraction of Inspired Oxygen 60 03/04/24 06:00 03/04/24 06:00 03/04/24 06:00 Temperature Pulse Rate 93 93 93 Respiratory Rate 22 H 22 H 22 H Blood Pressure 144/67 H Pulse Oximetry Oxygen Delivery Fraction of Inspired Oxygen 03/04/24 07:50 03/04/24 07:50 03/04/24 08:08 Temperature Pulse Rate 71 71 78 Respiratory Rate 22 H 20 Blood Pressure Pulse Oximetry 100 Oxygen Delivery Mechanical Ventilation Fraction of Inspired Oxygen 60 03/04/24 07:56 03/04/24 07:57 03/04/24 07:00 Temperature Pulse Rate 93 93 62 Respiratory Rate 20 22 H 22 H Blood Pressure 108/51 L Pulse Oximetry Oxygen Delivery Fraction of Inspired Oxygen 03/04/24 07:58 03/04/24 07:56 03/04/24 08:00 Temperature Pulse Rate 93 Respiratory Rate 22 H Blood Pressure 156/76 H Pulse Oximetry 99 Oxygen Delivery Mechanical Ventilation Mechanical Ventilation Fraction of Inspired Oxygen 50 50 03/04/24 08:00 03/04/24 08:00 03/04/24 09:05 Temperature 36.3 C L Pulse Rate 83 67 Respiratory Rate 20 20 Blood Pressure 141/68 H 114/49 L Pulse Oximetry 100 Oxygen Delivery Fraction of Inspired Oxygen 50 03/04/24 08:00 03/04/24 10:05 03/04/24 10:05 Temperature Pulse Rate 79 60 60 Respiratory Rate 20 20 Blood Pressure Pulse Oximetry Oxygen Delivery Fraction of Inspired Oxygen 03/04/24 09:30 03/04/24 10:05 03/04/24 10:33 Temperature Pulse Rate 62 62 58 L Respiratory Rate 20 20 20 Blood Pressure 107/46 L 126/54 L 129/57 L Pulse Oximetry Oxygen Delivery Fraction of Inspired Oxygen Intake/Output Intake/Output: Intake & Output 03/01/24 03/02/24 03/03/24 03/04/24 23:59 23:59 23:59 23:59 Intake Total 4725.3 3016.0 2079.4 1061.8 Output Total 577 350 2648 650 Balance 4100.3 2516.0 724.4 411.8 Meds/Results Medications: Active Medications Generic Name Dose Route Start Last Admin Trade Name Freq PRN Reason Stop Dose Admin Acetaminophen 500 mg 02/28/24 19:15 Acetaminophen 500 Mg Tablet PO Q6H PRN Pain Rated 1-3 Albuterol/Ipratropium 3 ml 02/29/24 02:00 03/04/24 07:48 Ipratropium 0.5 Mg/Albuterol Sulfate 2.5 Mg Ampul.Neb 3 Ml INHALATION 3 ml Q6HRT JASON Administration Aspirin 81 mg 03/01/24 08:00 03/04/24 08:05 Aspirin 81 Mg Chewable Tablet PO 81 mg DAILY@0800 JASON Administration Atorvastatin Calcium 80 mg 03/01/24 09:00 03/04/24 08:05 Atorvastatin 40 Mg Tablet PO 80 mg DAILY JASON Administration Dextrose 12.5 gm 02/28/24 19:23 Dextrose 50% 25 Gm/50 Ml Syringe IV PUSH PRN PRN Hypoglycemia Protocol Furosemide 80 mg 03/04/24 09:00 03/04/24 08:07 Furosemide Inj 100 Mg/10 Ml Vial IV PUSH 03/04/24 17:01 80 mg BID JASON Administration Glucagon 1 mg 02/28/24 19:23 Glucagon For Inj 1 Mg Vial IM PRN PRN Hypoglycemia Protocol Glucose 15 gm 02/28/24 19:23 Glucose Oral Gel 15 Gm Of Glucse In 37.5 Gm Tube PO PRN PRN Hypoglycemia Protocol Heparin Sodium (Porcine) 5,000 units 03/03/24 14:00 03/04/24 05:25 Heparin Sodium 5,000 Units/Ml Vial SUB-Q 5,000 units Q8HR JASON Administration Hydralazine HCl 10 mg 03/03/24 15:19 Hydralazine Hcl 20 Mg/Ml Vial IV PUSH Q4HR PRN Hypertension Hydrocortisone Sodium Succinate 50 mg 03/03/24 12:00 03/03/24 23:30 Hydrocortisone Sodium Succinate 100 Mg/2 Ml Vial IV PUSH 03/05/24 00:01 50 mg Q12H JASON Administration Dextrose 1,000 mls @ 100 mls/hr 02/28/24 19:23 Dextrose 5% 1,000 Ml IVPB PRN PRN Hypoglycemia Protocol Fentanyl Citrate 2,500 mcg in 250 mls @ 10 mls/hr 02/28/24 21:20 03/04/24 10:05 Fentanyl 2,500 Mcg/Ns 250 Ml IV CONT 100 mcg/hr .Q25H JASON 10 mls/hr Titration Protocol 100 MCG/HR Midazolam HCl 100 mg in 100 mls @ 5 mls/hr 02/28/24 21:20 03/04/24 10:05 Versed 100 Mg/Ns 100 Ml IV CONT 5 mg/hr .Q20H JASON 5 mls/hr Titration Protocol 5 MG/HR Meropenem 1 gm in 100 mls @ 200 mls/hr 02/28/24 22:00 03/04/24 06:21 IVPB Infused Q8H JASON Infusion Clindamycin Phosphate 900 mg in 50 mls @ 50 mls/hr 02/28/24 21:00 03/04/24 09:52 Cleocin 900 Mg/D5w 50 Ml IVPB 03/04/24 21:59 Infused Q8H JASON Infusion Vancomycin HCl 1,500 mg in 500 mls @ 250 mls/hr 03/03/24 22:00 03/03/24 23:32 Vancomycin 1,500 Mg/Ns 500 Ml IVPB Infused Q24H JASON Infusion Cisatracurium Besylate 200 mg/ 100 mls @ 7.695 mls/hr 03/03/24 15:10 03/04/24 10:33 Dextrose IV CONT 2 mcg/kg/min .Q13H JASON 6.16 mls/hr Titration Protocol 2.5 MCG/KG/MIN Insulin Aspart 3 - 6 units 03/01/24 00:00 03/04/24 04:58 Insulin Aspart (*Bkc) 100 Units/Ml SUB-Q 4 units Q6H JASON Administration Protocol Insulin Glargine 30 units 03/04/24 09:00 03/04/24 08:06 Insulin Glargine (*Bkc) 100 Units/Ml SUB-Q 30 units DAILY JASON Administration Metoclopramide HCl 10 mg 03/04/24 08:00 03/04/24 08:05 Metoclopramide Hcl 10 Mg/10 Ml Soln Udc FEED TUBE 10 mg Q6HR JASON Administration Midodrine 10 mg 03/02/24 09:00 03/04/24 08:05 Midodrine Hcl 10 Mg Tablet PO 10 mg TID JASON Administration Multi-Ingred Cream/Lotion/Oil/Oint 1 applic 02/29/24 09:00 03/04/24 08:07 Mineral Oil/White Petrolatum Ointment EACH EYE 1 applic Q12HR JASON Administration Naloxone HCl 0.1 mg 02/28/24 19:15 Naloxone Hcl 0.4 Mg/Ml Vial IV PUSH Q2M PRN Opiate Reversal Pantoprazole Sodium 40 mg 03/02/24 09:00 03/04/24 08:06 Pantoprazole Sodium Iv 40 Mg Vial IV PUSH 40 mg Q12HR JASON Administration Sodium Chloride 10 ml 02/29/24 06:00 03/04/24 05:26 Central Line Flush IV PUSH 10 ml Q8HR JASON Administration Sodium Chloride 20 ml 02/28/24 23:37 Central Line Flush IV PUSH PRN PRN after blood draws Radiology Results: ITS Impressions Lower Extremity CTA 02/28/24 14:54 IMPRESSION: 1. 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 2. Moderate stenosis of right popliteal artery. 3. Osteomyelitis involving first proximal and distal phalanges and head of first metatarsal. Head CT 02/29/24 05:55 Impression: No intracranial hemorrhage, mass, or acute infarct. Stable chronic encephalomalacia in the high left parietal lobe. Atrophy and chronic white matter changes, as above. Chest/Abdomen/Pelvis CTA 02/29/24 06:02 Impression: Extensive right upper lobe consolidation and more mild right middle lobe consolidation, consistent with pneumonia. Consider aspiration pneumonia. Moderate to large right pleural effusion with complete atelectasis of the right lower lobe. Moderate left pleural effusion with minimal left basilar atelectasis. Small pericardial effusion. No definite acute abnormality in the abdomen or pelvis. Chronic compression fractures, as above. Renal Ultrasound 03/03/24 15:45 IMPRESSION: 1. Normal kidneys without hydronephrosis. 2. Small amount of ascites in the abdomen and pelvis. Chest X-Ray 03/04/24 08:33 IMPRESSION: Bilateral pneumonia. Right pleural effusion. Labs Labs: Laboratory Results - last 24 hr 03/03/24 03/03/24 03/03/24 11:03 12:16 13:28 WBC RBC Hgb Hct MCV MCH MCHC RDW Plt Count MPV Immature Gran % (Auto) Neut % (Auto) Lymph % (Auto) [place] % (Auto) Eos % (Auto) Baso % (Auto) Lymph # (Auto) [place] # (Auto) Eos # (Auto) Baso # (Auto) Abs Immat Gran (auto) Absolute Neuts (auto) Absolute Nucleated RBC Total Counted Neutrophils % (Manual) Band Neutrophils % Lymphocytes % (Manual) Monocytes % (Manual) Nucleated RBC % Abs Neuts (Manual) Abs Lymphs (Manual) Abs Monocytes (Manual) Platelet Estimate Anisocytosis Schistocytes PT INR Puncture Site Right radial ABG pH 7.284 L* ABG pCO2 44.6 ABG pO2 81.1 ABG PO2/FiO2 Ratio 0.81 ABG HCO3 20.7 L ABG O2 Saturation 94.6 L ABG O2 Content 15.0 L ABG Base Excess -5.8 A-a Gradient 587.3 Oxyhemoglobin 93.1 Carboxyhemoglobin Methemoglobin Reduced Hemoglobin Total Hemoglobin 11.4 L O2 Delivery Device Ventilator O2 Liters/Min Not Reportable Minute Volume Not Reportable Vent Rate 26 Vent Mode Cmv FiO2 100 Tidal Volume 410 PEEP 12 Peak Inspir Pressure Not Reportable Pressure Support Not Reportable Sodium Potassium Chloride Carbon Dioxide Anion Gap BUN Creatinine Estim Creat Clear Calc Estimated GFR Glucose POC Capillary Glucose 321 H Lactic Acid Calcium Magnesium Total Bilirubin AST ALT Alkaline Phosphatase Total Protein Albumin Vancomycin Trough 23.0 H 03/03/24 03/03/24 03/03/24 17:27 20:15 23:18 WBC RBC Hgb Hct MCV MCH MCHC RDW Plt Count MPV Immature Gran % (Auto) Neut % (Auto) Lymph % (Auto) [place] % (Auto) Eos % (Auto) Baso % (Auto) Lymph # (Auto) [place] # (Auto) Eos # (Auto) Baso # (Auto) Abs Immat Gran (auto) Absolute Neuts (auto) Absolute Nucleated RBC Total Counted Neutrophils % (Manual) Band Neutrophils % Lymphocytes % (Manual) Monocytes % (Manual) Nucleated RBC % Abs Neuts (Manual) Abs Lymphs (Manual) Abs Monocytes (Manual) Platelet Estimate Anisocytosis Schistocytes PT INR Puncture Site Artline ABG pH 7.424 ABG pCO2 32.4 L ABG pO2 133.2 H ABG PO2/FiO2 Ratio 1.66 ABG HCO3 20.7 L ABG O2 Saturation 98.7 ABG O2 Content 14.1 L ABG Base Excess -3.0 A-a Gradient 403.2 Oxyhemoglobin 98.3 Carboxyhemoglobin Methemoglobin Reduced Hemoglobin Total Hemoglobin 10.0 L O2 Delivery Device Ventilator O2 Liters/Min Not Reportable Minute Volume Not Reportable Vent Rate 24 Vent Mode Cmv FiO2 80 Tidal Volume 410 PEEP 12 Peak Inspir Pressure Not Reportable Pressure Support Not Reportable Sodium Potassium Chloride Carbon Dioxide Anion Gap BUN Creatinine Estim Creat Clear Calc Estimated GFR Glucose POC Capillary Glucose 276 H 256 H Lactic Acid Calcium Magnesium Total Bilirubin AST ALT Alkaline Phosphatase Total Protein Albumin Vancomycin Trough 03/04/24 03/04/24 03/04/24 04:56 05:09 05:20 WBC 20.2 H RBC 3.36 L Hgb 9.1 L Hct 28.6 L MCV 85.1 MCH 27.1 MCHC 31.8 L RDW 15.6 H Plt Count 478 H MPV 9.0 Immature Gran % (Auto) Not Reportable Neut % (Auto) Not Reportable Lymph % (Auto) Not Reportable [place] % (Auto) Not Reportable Eos % (Auto) Not Reportable Baso % (Auto) Not Reportable Lymph # (Auto) Not Reportable [place] # (Auto) Not Reportable Eos # (Auto) Not Reportable Baso # (Auto) Not Reportable Abs Immat Gran (auto) Not Reportable Absolute Neuts (auto) Not Reportable Absolute Nucleated RBC Not Reportable Total Counted 100 Neutrophils % (Manual) 90 H Band Neutrophils % 7 H Lymphocytes % (Manual) 2 L Monocytes % (Manual) 1 L Nucleated RBC % Not Reportable Abs Neuts (Manual) 19.59 H Abs Lymphs (Manual) 0.40 L Abs Monocytes (Manual) 0.20 Platelet Estimate Increased Anisocytosis 1+ Schistocytes None seen PT 19.2 H INR 1.6 Puncture Site Artline ABG pH 7.442 ABG pCO2 32.3 L ABG pO2 93.1 ABG PO2/FiO2 Ratio 1.55 ABG HCO3 21.5 L ABG O2 Saturation 97.5 ABG O2 Content 13.6 L ABG Base Excess -2.0 A-a Gradient 299.2 Oxyhemoglobin 96.4 Carboxyhemoglobin 0.7 Methemoglobin 0.3 Reduced Hemoglobin 2.6 Total Hemoglobin 9.9 L O2 Delivery Device Ventilator O2 Liters/Min Not Reportable Minute Volume Not Reportable Vent Rate 22 Vent Mode Cmv FiO2 60 Tidal Volume 410 PEEP 12 Peak Inspir Pressure Not Reportable Pressure Support Not Reportable Sodium 138 Potassium 4.5 Chloride 109 H Carbon Dioxide 20 L Anion Gap 9 BUN 53 H Creatinine 1.10 Estim Creat Clear Calc 68 Estimated GFR > 60 Glucose 272 H POC Capillary Glucose 263 H Lactic Acid 1.1 Calcium 7.7 L Magnesium 2.8 H Total Bilirubin 0.3 AST 65 H ALT 36 Alkaline Phosphatase 89 Total Protein 6.0 L Albumin 2.8 L Vancomycin Trough Quality VTE Prophylaxis VTE prophylaxis: pharmacologic ordered
--- NOTE | 2024-03-04 11:48 | PCNFU ---
Nutrition Follow-Up Complete: Suboptimal Energy Intake as related to mechanical vent as evidenced by NPO. Goal: Meet estimated nutritional needs Patient is progressing towards goal. We will continue current goal. Pt current nutrition is Glucerna 1.2 at 40 ml/hr. Nutrition recommendation: goal rate 60 ml/hr and start Minh BID. Last recorded weight is 102.2 kg, up from 98 kg on admit. Bowel Motility: +BM reported 03/03 Labs Reviewed: Glu 272, Mg 2.8, BUN 53, Alb 2.8 Meds Noted: Reglan, NovoLog, Lantus, Versed, Fentanyl. Skin: Stage II pressure ulcer-sacrum. Necrotic foot. Additional Notes: Patient remains on tube feedings of Glucerna 1.2 at 40 ml/hr. Elevated residuals reported per nursing, Reglan started. Recommend increasing to goal rate of 60 ml/hr. Spoke with Therapeutic Radiologist regarding protein modular due to wounds. Orders for Minh BID with Flush. Surgery planned for tomorrow. Agree with diet orders. Will monitor weight, labs, skin, tube feedings, meds, every Sunday and Sunday.
[2024-03-04 11:57] LABS: Glucose Point of Care 243 mg/dl (65-105)
[2024-03-04] MEDS: HYDROCORTISONE SODIUM SUCCINATE 100 MG/2 ML VIAL 50 MG IV PUSH ×2 (12:16→23:01)
[2024-03-04 15:54] LABS: Anion Gap 7 mmol/L (4-12); Blood Urea Nitrogen 52 mg/dL (9-20); Carbon Dioxide 24 mmol/L (22-30); Chloride 108 mmol/L (98-107); Estimated CRCL calculation 68 ml/min; Estimated Glomerular Filt Rate > 60; Glucose 269 mg/dL (65-110); Potassium 4.2 mmol/L (3.4-5.0); Sodium 139 mmol/L (137-145)
--- NOTE | 2024-03-04 16:04 | P.PNIM_ITS ---
Progress Note: A&P Assessment and Plan (1) Acute respiratory failure with hypoxia: Code(s): J96.01 - Acute respiratory failure with hypoxia Status: Acute Assessment and Plan: Acute respiratory failure likely related to cardiac arrest, aspiration pneumonia, NSTEMI, hypoxia, septic shock Worsening likely secondary to ARDS versus pulmonary edema -currently CMV mode of ventilation, peep of 12, 60% FiO2 -chest x-ray reviewed. Advance ET tube by 4 cm -continue bronchodilators -on fentanyl and Versed infusion for sedation and Nimbex for neuromuscular brayden -wean PEEP down to 12 -continue diuresis (2) Cardiac arrest with pulseless electrical activity: Code(s): I46.9 - Cardiac arrest, cause unspecified Status: Acute Assessment and Plan: Cardiac arrest, secondary to unknown etiology. Possible aspiration pneumonia, NSTEMI, hypoxia, septic shock, infection -see code blue sheet for the details -patient currently intubated, vasopressors for blood pressure support -appreciate cardiology following the patient 02/29/2024 echocardiogram Summary 1. Technically difficult study with limited views. 2. Left ventricular chamber dimension is normal. 3. Left ventricular systolic function is mildly reduced, estimated at 45-50%. The apex appears to be hypokinetic. 4. There is mildly increased left ventricular wall thickness. 5. The left ventricular diastolic function is grade I diastolic dysfunction. 6. Right ventricular systolic function is normal. 7. Left atrial chamber dimension is moderately enlarged. 8. There is mild to moderate tricuspid valve regurgitation. 9. There is small anterior pericardial effusion. (3) Septic shock: Code(s): A41.9 - Sepsis, unspecified organism; R65.21 - Severe sepsis with septic shock Status: Acute Assessment and Plan: Patient in shock, likely related to the gangrene, aspiration pneumonia, status post cardiac arrest 02/28/2024: Blood cultures have been obtained and negative till now -lactic acid has normalized -patient has been adequately fluid-resuscitated -OFF Levophed -wean stress dose steroids -continue midodrine -status post albumin for intravascular volume expansion (4) NSTEMI (non-ST elevated myocardial infarction): Code(s): I21.4 - Non-ST elevation (NSTEMI) myocardial infarction Status: Acute Assessment and Plan: Increasing troponins, -EKG showed sinus rhythm with T-wave changes in V1 to V5 -appreciate cardiology evaluation and recommendation -Continue aspirin and high-dose a statin -will hold Brilinta -will also hold beta-brayden, losartan which is home med, since he is hypotensive on vasopressors -03/02 heparin infusion was discontinued after 48 hours for NSTEMI by cardiology (5) Gangrene of right foot: Code(s): I96 - Gangrene, not elsewhere classified Status: Acute Assessment and Plan: CTA showed peripheral arterial disease with total occlusion of the right anterior and posterior tibial arteries and right peroneal artery with distal reconstitution of peroneal artery. This extensive gangrene of the right foot with gas seen on CT of the foot. -pre following the patient, plan was to do a below-knee amputation on 02/29/2024 but given his cardiac arrest, NSTEMI and on pressors this has been deferred. Discussed with surgery -continue antibiotics for necrotizing gas gangrene. Patient on meropenem, clindamycin and vancomycin which was started on 02/28/2024 -amputation plan by surgery. Will discuss with surgery regarding timing (6) Osteomyelitis of toe of right foot: Code(s): M86.9 - Osteomyelitis, unspecified Status: Chronic Assessment and Plan: As above (7) Peripheral vascular disease: Code(s): I73.9 - Peripheral vascular disease, unspecified Status: Chronic Assessment and Plan: Patient has history of peripheral vascular disease, coronary artery disease -started on aspirin, patient will require Brilinta since he had a STEMI in 2020 but currently holding Brilinta due to possible amputation (8) Type 2 diabetes mellitus: Qualifiers: 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 complication status: with other specified complication 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 penitentiary insulin use: with penitentiary use Qualified Code(s): E11.69 - Type 2 diabetes mellitus with other specified complication; Z79.4 - custodial (current) use of insulin Code(s): E11.9 - Type 2 diabetes mellitus without complications Status: Acute Assessment and Plan: Currently on sliding scale insulin, Accu-Cheks Hemoglobin A1c this admission is 8.2 Increase Lantus (9) Chronic obstructive pulmonary disease: Code(s): J44.9 - Chronic obstructive pulmonary disease, unspecified Status: Acute Assessment and Plan: Continue DuoNebs -continue Symbicort Subjective Date/time seen: 03/04/24 16:04 Interval history: Patient is intubated and sedated Review of Systems Review of Systems: 12 systems were reviewed and are negativ e except for as per HPI. ROS unobtainable: Yes unobtainable due to endotracheal tube, unobtainable due to medical condition and unobtainable due to mental status Exam Narrative: General: Patient intubated and sedated and chemically paralyzed HEENT:, pupils are equal and reactive from a sclera is clear Neck:? supple Respiratory:? Coarse breath sounds bilaterally, decreased at bases, adequate air entry Cardiac:? S1-S2 normal, regular rate and rhythm Abdomen:? Soft, nontender, nondistended, hypoactive bowel sounds Extremities:? Gangrenous right 1st toe down to the 1st metatarsal, dorsum of the foot and all the way to approximately the heel on the medial aspect and plantar aspect of the foot over the 1st metatarsal. Purulent drainage and foul order. There is also erythema and swelling of the right foot. Right foot is now in a dressing. Posterior tibial and pedal pulses are not palpable Neuro:? Patient is intubated, sedated, and chemically paralyzed PERRL Skin:? Patient has maceration of his perianal area, and states to pressure ulcer on his buttocks. Psych:? Unable to assess at this time Objective Data Vital Signs Vital Signs: Vital Signs - 24 hr 03/03/24 17:33 03/03/24 17:58 03/03/24 17:59 Temperature Pulse Rate 93 89 88 Respiratory Rate 26 H 26 H Blood Pressure Pulse Oximetry 98 Oxygen Delivery Mechanical Ventilation Fraction of Inspired Oxygen 80 03/03/24 17:00 03/03/24 18:01 03/03/24 18:00 Temperature Pulse Rate 74 88 88 Respiratory Rate 26 H 26 H Blood Pressure 105/49 L 131/58 L Pulse Oximetry Oxygen Delivery Fraction of Inspired Oxygen 03/03/24 18:00 03/03/24 19:48 03/03/24 20:20 Temperature 97.2 F L Pulse Rate 69 72 Respiratory Rate 24 H Blood Pressure 102/45 L Pulse Oximetry 100 100 Oxygen Delivery Mechanical Ventilation Fraction of Inspired Oxygen 80 60 03/03/24 20:20 03/03/24 20:33 03/03/24 20:00 Temperature Pulse Rate 72 82 62 Respiratory Rate 22 H 22 H 26 H Blood Pressure 107/47 L Pulse Oximetry Oxygen Delivery Fraction of Inspired Oxygen 03/03/24 20:46 03/03/24 21:06 03/03/24 20:00 Temperature Pulse Rate 80 89 Respiratory Rate 22 H 22 H Blood Pressure 132/60 138/64 Pulse Oximetry 100 Oxygen Delivery Mechanical Ventilation Fraction of Inspired Oxygen 80 03/03/24 20:00 03/03/24 19:58 03/03/24 20:00 Temperature 97.5 F L Pulse Rate 62 62 62 Respiratory Rate 26 H 26 H 26 H Blood Pressure 107/47 L Pulse Oximetry 100 Oxygen Delivery Fraction of Inspired Oxygen 03/03/24 19:59 03/03/24 20:00 03/03/24 21:21 Temperature Pulse Rate 62 62 86 Respiratory Rate 26 H 26 H 22 H Blood Pressure 131/63 Pulse Oximetry Oxygen Delivery Fraction of Inspired Oxygen 03/03/24 20:00 03/03/24 22:00 03/03/24 22:00 Temperature 97.4 F L Pulse Rate 63 71 71 Respiratory Rate 22 H Blood Pressure 109/51 L Pulse Oximetry 100 Oxygen Delivery Fraction of Inspired Oxygen 03/03/24 22:00 03/03/24 22:00 03/03/24 22:00 Temperature Pulse Rate 71 71 72 Respiratory Rate 22 H 22 H 22 H Blood Pressure 109/51 L Pulse Oximetry Oxygen Delivery Fraction of Inspired Oxygen 03/03/24 21:40 03/03/24 23:22 03/03/24 23:22 Temperature Pulse Rate 86 77 77 Respiratory Rate 22 H 22 H 22 H Blood Pressure 130/64 Pulse Oximetry Oxygen Delivery Fraction of Inspired Oxygen 03/03/24 23:19 03/03/24 23:41 03/03/24 23:47 Temperature Pulse Rate 82 Respiratory Rate Blood Pressure Pulse Oximetry 100 100 Oxygen Delivery Mechanical Ventilation Mechanical Ventilation Fraction of Inspired Oxygen 60 60 60 03/04/24 00:00 03/04/24 00:00 03/04/24 00:00 Temperature 97.4 F L Pulse Rate 71 71 71 Respiratory Rate 22 H 22 H Blood Pressure 125/58 L Pulse Oximetry 100 Oxygen Delivery Fraction of Inspired Oxygen 03/04/24 00:00 03/03/24 22:30 03/04/24 00:00 Temperature Pulse Rate 71 75 71 Respiratory Rate 22 H 22 H 22 H Blood Pressure 120/65 125/58 L Pulse Oximetry Oxygen Delivery Fraction of Inspired Oxygen 03/04/24 02:00 03/04/24 02:00 03/04/24 02:00 Temperature 97.5 F L Pulse Rate 61 61 61 Respiratory Rate 22 H 22 H Blood Pressure 107/60 Pulse Oximetry 100 Oxygen Delivery Fraction of Inspired Oxygen 03/04/24 02:00 03/04/24 02:00 03/04/24 02:00 Temperature Pulse Rate 61 61 61 Respiratory Rate 22 H 22 H 22 H Blood Pressure 121/57 L Pulse Oximetry Oxygen Delivery Fraction of Inspired Oxygen 03/04/24 02:32 03/04/24 02:32 03/04/24 02:41 Temperature Pulse Rate 83 83 81 Respiratory Rate 22 H 22 H Blood Pressure Pulse Oximetry 100 Oxygen Delivery Mechanical Ventilation Fraction of Inspired Oxygen 60 03/04/24 04:00 03/04/24 04:00 03/04/24 04:00 Temperature 97.5 F L Pulse Rate 84 84 Respiratory Rate 22 H Blood Pressure 146/87 H Pulse Oximetry 99 Oxygen Delivery Fraction of Inspired Oxygen 60 03/04/24 04:00 03/04/24 05:03 03/04/24 05:00 Temperature Pulse Rate 85 85 85 Respiratory Rate 22 H 22 H 22 H Blood Pressure 147/67 H 131/70 131/70 Pulse Oximetry Oxygen Delivery Fraction of Inspired Oxygen 03/04/24 05:09 03/04/24 04:00 03/04/24 04:00 Temperature Pulse Rate 93 85 85 Respiratory Rate 22 H 22 H Blood Pressure Pulse Oximetry 100 Oxygen Delivery Mechanical Ventilation Fraction of Inspired Oxygen 60 03/04/24 04:00 03/04/24 06:00 03/04/24 06:00 Temperature 97.4 F L Pulse Rate 80 80 Respiratory Rate 22 H Blood Pressure 142/66 H Pulse Oximetry 100 100 Oxygen Delivery Mechanical Ventilation Fraction of Inspired Oxygen 60 03/04/24 06:00 03/04/24 06:00 03/04/24 06:00 Temperature Pulse Rate 93 93 93 Respiratory Rate 22 H 22 H 22 H Blood Pressure 144/67 H Pulse Oximetry Oxygen Delivery Fraction of Inspired Oxygen 03/04/24 07:50 03/04/24 07:50 03/04/24 08:08 Temperature Pulse Rate 71 71 78 Respiratory Rate 22 H 20 Blood Pressure Pulse Oximetry 100 Oxygen Delivery Mechanical Ventilation Fraction of Inspired Oxygen 60 03/04/24 07:56 03/04/24 07:57 03/04/24 07:00 Temperature Pulse Rate 93 93 62 Respiratory Rate 20 22 H 22 H Blood Pressure 108/51 L Pulse Oximetry Oxygen Delivery Fraction of Inspired Oxygen 03/04/24 07:58 03/04/24 07:56 03/04/24 08:00 Temperature Pulse Rate 93 Respiratory Rate 22 H Blood Pressure 156/76 H Pulse Oximetry 99 Oxygen Delivery Mechanical Ventilation Mechanical Ventilation Fraction of Inspired Oxygen 50 50 03/04/24 08:00 03/04/24 08:00 03/04/24 09:05 Temperature 97.4 F L Pulse Rate 83 67 Respiratory Rate 20 20 Blood Pressure 141/68 H 114/49 L Pulse Oximetry 100 Oxygen Delivery Fraction of Inspired Oxygen 50 03/04/24 08:00 03/04/24 10:05 03/04/24 10:05 Temperature Pulse Rate 79 60 60 Respiratory Rate 20 20 Blood Pressure Pulse Oximetry Oxygen Delivery Fraction of Inspired Oxygen 03/04/24 09:30 03/04/24 10:05 03/04/24 10:33 Temperature Pulse Rate 62 62 58 L Respiratory Rate 20 20 20 Blood Pressure 107/46 L 126/54 L 129/57 L Pulse Oximetry Oxygen Delivery Fraction of Inspired Oxygen 03/04/24 10:00 03/04/24 10:46 03/04/24 10:00 Temperature 97.2 F L Pulse Rate 59 L 63 58 L Respiratory Rate 21 H 20 Blood Pressure 126/54 L 132/58 L Pulse Oximetry 100 Oxygen Delivery Fraction of Inspired Oxygen 03/04/24 11:02 03/04/24 11:15 03/04/24 11:35 Temperature Pulse Rate 65 63 63 Respiratory Rate 20 20 20 Blood Pressure 127/57 L 130/57 L 128/56 L Pulse Oximetry Oxygen Delivery Fraction of Inspired Oxygen 03/04/24 11:43 03/04/24 12:00 03/04/24 12:02 Temperature Pulse Rate 60 66 66 Respiratory Rate 20 20 20 Blood Pressure 124/54 L 122/53 L Pulse Oximetry Oxygen Delivery Fraction of Inspired Oxygen 03/04/24 12:00 03/04/24 12:00 03/04/24 12:00 Temperature Pulse Rate 66 Respiratory Rate 20 Blood Pressure Pulse Oximetry 100 Oxygen Delivery Mechanical Ventilation Fraction of Inspired Oxygen 40 40 03/04/24 12:15 03/04/24 12:28 03/04/24 12:00 Temperature Pulse Rate 85 88 67 Respiratory Rate 20 22 H Blood Pressure 135/64 131/58 L Pulse Oximetry Oxygen Delivery Fraction of Inspired Oxygen 03/04/24 12:00 03/04/24 12:45 03/04/24 12:55 Temperature 97.1 F L Pulse Rate 85 89 85 Respiratory Rate 21 H 22 H 20 Blood Pressure 138/62 139/62 139/62 Pulse Oximetry 100 Oxygen Delivery Fraction of Inspired Oxygen 03/04/24 10:40 03/04/24 13:43 03/04/24 13:43 Temperature Pulse Rate 78 67 67 Respiratory Rate 20 Blood Pressure Pulse Oximetry 100 100 Oxygen Delivery Mechanical Ventilation Mechanical Ventilation Fraction of Inspired Oxygen 50 50 03/04/24 13:49 03/04/24 14:02 03/04/24 13:30 Temperature Pulse Rate 79 105 H 68 Respiratory Rate 20 20 20 Blood Pressure 114/49 L Pulse Oximetry Oxygen Delivery Fraction of Inspired Oxygen 03/04/24 14:02 03/04/24 14:02 03/04/24 14:23 Temperature Pulse Rate 105 H 105 H 90 Respiratory Rate 20 20 22 H Blood Pressure 135/70 Pulse Oximetry Oxygen Delivery Fraction of Inspired Oxygen 03/04/24 14:00 03/04/24 14:00 03/04/24 14:47 Temperature 97.3 F L Pulse Rate 105 H 105 H 77 Respiratory Rate 20 20 Blood Pressure 130/70 134/57 L Pulse Oximetry 90 Oxygen Delivery Fraction of Inspired Oxygen 03/04/24 15:00 03/04/24 15:35 Temperature Pulse Rate 72 62 Respiratory Rate 20 20 Blood Pressure 121/51 L 119/50 L Pulse Oximetry Oxygen Delivery Fraction of Inspired Oxygen Intake/Output Intake/Output: Intake & Output 03/01/24 03/02/24 03/03/24 03/04/24 23:59 23:59 23:59 23:59 Intake Total 4725.3 3016.0 2079.4 1300.8 Output Total 779 019 7996 650 Balance 4100.3 2516.0 724.4 650.8 Meds/Results Medications: Active Medications Generic Name Dose Route Start Last Admin Trade Name Freq PRN Reason Stop Dose Admin Acetaminophen 500 mg 02/28/24 19:15 Acetaminophen 500 Mg Tablet PO Q6H PRN Pain Rated 1-3 Albuterol/Ipratropium 3 ml 02/29/24 02:00 03/04/24 13:40 Ipratropium 0.5 Mg/Albuterol Sulfate 2.5 Mg Ampul.Neb 3 Ml INHALATION 3 ml Q6HRT JASON Administration Aspirin 81 mg 03/01/24 08:00 03/04/24 08:05 Aspirin 81 Mg Chewable Tablet PO 81 mg DAILY@0800 JASON Administration Atorvastatin Calcium 80 mg 03/01/24 09:00 03/04/24 08:05 Atorvastatin 40 Mg Tablet PO 80 mg DAILY JASON Administration Dextrose 12.5 gm 02/28/24 19:23 Dextrose 50% 25 Gm/50 Ml Syringe IV PUSH PRN PRN Hypoglycemia Protocol Furosemide 80 mg 03/04/24 09:00 03/04/24 08:07 Furosemide Inj 100 Mg/10 Ml Vial IV PUSH 03/04/24 17:01 80 mg BID JASON Administration Glucagon 1 mg 02/28/24 19: Glucagon For Inj 1 Mg Vial IM PRN PRN Hypoglycemia Protocol Glucose 15 gm 02/28/24 19:23 Glucose Oral Gel 15 Gm Of Glucse In 37.5 Gm Tube PO PRN PRN Hypoglycemia Protocol Heparin Sodium (Porcine) 5,000 units 03/03/24 14:00 03/04/24 14:12 Heparin Sodium 5,000 Units/Ml Vial SUB-Q 5,000 units Q8HR JASON Administration Hydralazine HCl 10 mg 03/03/24 15:19 Hydralazine Hcl 20 Mg/Ml Vial IV PUSH Q4HR PRN Hypertension Hydrocortisone Sodium Succinate 50 mg 03/03/24 12:00 03/04/24 12:16 Hydrocortisone Sodium Succinate 100 Mg/2 Ml Vial IV PUSH 03/05/24 00:01 50 mg Q12H JASON Administration Dextrose 1,000 mls @ 100 mls/hr 02/28/24 19:23 Dextrose 5% 1,000 Ml IVPB PRN PRN Hypoglycemia Protocol Fentanyl Citrate 2,500 mcg in 250 mls @ 15 mls/hr 02/28/24 21:20 03/04/24 14:23 Fentanyl 2,500 Mcg/Ns 250 Ml IV CONT 150 mcg/hr .[id number] JASON 15 mls/hr Titration Protocol 150 MCG/HR Midazolam HCl 100 mg in 100 mls @ 5 mls/hr 02/28/24 21:20 03/04/24 14:02 Versed 100 Mg/Ns 100 Ml IV CONT 5 mg/hr .Q20H JASON 5 mls/hr Titration Protocol 5 MG/HR Meropenem 1 gm in 100 mls @ 200 mls/hr 02/28/24 22:00 03/04/24 14:49 IVPB Infused Q8H JASON Infusion Clindamycin Phosphate 900 mg in 50 mls @ 50 mls/hr 02/28/24 21:00 03/04/24 14:17 Cleocin 900 Mg/D5w 50 Ml IVPB 03/04/24 21:59 Infused Q8H JASON Infusion Vancomycin HCl 1,500 mg in 500 mls @ 250 mls/hr 03/03/24 22:00 03/03/24 23:32 Vancomycin 1,500 Mg/Ns 500 Ml IVPB Infused Q24H JASON Infusion Cisatracurium Besylate 200 mg/ 100 mls @ 4.617 mls/hr 03/03/24 15:10 03/04/24 15:35 Dextrose IV CONT 1 mcg/kg/min .[id number] JASON 3.08 mls/hr Titration Protocol 1.5 MCG/KG/MIN Insulin Aspart 3 - 6 units 03/01/24 00:00 03/04/24 12:10 Insulin Aspart (*Bkc) 100 Units/Ml SUB-Q 3 units Q6H JASON Administration Protocol Insulin Glargine 30 units 03/04/24 09:00 03/04/24 08:06 Insulin Glargine (*Bkc) 100 Units/Ml SUB-Q 30 units DAILY JASON Administration Metoclopramide HCl 10 mg 03/04/24 08:00 03/04/24 12:14 Metoclopramide Hcl 10 Mg/10 Ml Soln Udc FEED TUBE 10 mg Q6HR JASON Administration Midodrine 10 mg 03/02/24 09:00 03/04/24 12:14 Midodrine Hcl 10 Mg Tablet PO 10 mg TID JASON Administration Multi-Ingred Cream/Lotion/Oil/Oint 1 applic 02/29/24 09:00 03/04/24 08:07 Mineral Oil/White Petrolatum Ointment EACH EYE 1 applic Q12HR JASON Administration Naloxone HCl 0.1 mg 02/28/24 19:15 Naloxone Hcl 0.4 Mg/Ml Vial IV PUSH Q2M PRN Opiate Reversal Pantoprazole Sodium 40 mg 03/02/24 09:00 03/04/24 08:06 Pantoprazole Sodium Iv 40 Mg Vial IV PUSH 40 mg Q12HR JASON Administration Sodium Chloride 10 ml 02/29/24 06:00 03/04/24 14:17 Central Line Flush IV PUSH 10 ml Q8HR JASON Administration Sodium Chloride 20 ml 02/28/24 23:37 Central Line Flush IV PUSH PRN PRN after blood draws Radiology Results: ITS Impressions Lower Extremity CTA 02/28/24 14:54 IMPRESSION: 1. 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 2. Moderate stenosis of right popliteal artery. 3. Osteomyelitis involving first proximal and distal phalanges and head of first metatarsal. Head CT 02/29/24 05:55 Impression: No intracranial hemorrhage, mass, or acute infarct. Stable chronic encephalomalacia in the high left parietal lobe. Atrophy and chronic white matter changes, as above. Chest/Abdomen/Pelvis CTA 02/29/24 06:02 Impression: Extensive right upper lobe consolidation and more mild right middle lobe consolidation, consistent with pneumonia. Consider aspiration pneumonia. Moderate to large right pleural effusion with complete atelectasis of the right lower lobe. Moderate left pleural effusion with minimal left basilar atelectasis. Small pericardial effusion. No definite acute abnormality in the abdomen or pelvis. Chronic compression fractures, as above. Renal Ultrasound 03/03/24 15:45 IMPRESSION: 1. Normal kidneys without hydronephrosis. 2. Small amount of ascites in the abdomen and pelvis. Chest X-Ray 03/04/24 08:33 IMPRESSION: Bilateral pneumonia. Right pleural effusion. Labs Labs: Laboratory Results - last 24 hr 03/03/24 03/03/24 03/03/24 12:16 17:27 20:15 WBC RBC Hgb Hct MCV MCH MCHC RDW Plt Count MPV Immature Gran % (Auto) Neut % (Auto) Lymph % (Auto) [place] % (Auto) Eos % (Auto) Baso % (Auto) Lymph # (Auto) [place] # (Auto) Eos # (Auto) Baso # (Auto) Abs Immat Gran (auto) Absolute Neuts (auto) Absolute Nucleated RBC Total Counted Neutrophils % (Manual) Band Neutrophils % Lymphocytes % (Manual) Monocytes % (Manual) Nucleated RBC % Abs Neuts (Manual) Abs Lymphs (Manual) Abs Monocytes (Manual) Platelet Estimate Anisocytosis Schistocytes PT INR Puncture Site Artline ABG pH 7.424 ABG pCO2 32.4 L ABG pO2 133.2 H ABG PO2/FiO2 Ratio 1.66 ABG HCO3 20.7 L ABG O2 Saturation 98.7 ABG O2 Content 14.1 L ABG Base Excess -3.0 A-a Gradient 403.2 Oxyhemoglobin 98.3 Carboxyhemoglobin Methemoglobin Reduced Hemoglobin Total Hemoglobin 10.0 L O2 Delivery Device Ventilator O2 Liters/Min Not Reportable Minute Volume Not Reportable Vent Rate 26 24 Vent Mode Cmv FiO2 80 Tidal Volume 410 PEEP 12 Peak Inspir Pressure Not Reportable Pressure Support Not Reportable Sodium Potassium Chloride Carbon Dioxide Anion Gap BUN Creatinine Estim Creat Clear Calc Estimated GFR Glucose POC Capillary Glucose 276 H Lactic Acid Calcium Magnesium Total Bilirubin AST ALT Alkaline Phosphatase Total Protein Albumin 03/03/24 03/04/24 03/04/24 23:18 04:56 05:09 WBC RBC Hgb Hct MCV MCH MCHC RDW Plt Count MPV Immature Gran % (Auto) Neut % (Auto) Lymph % (Auto) [place] % (Auto) Eos % (Auto) Baso % (Auto) Lymph # (Auto) [place] # (Auto) Eos # (Auto) Baso # (Auto) Abs Immat Gran (auto) Absolute Neuts (auto) Absolute Nucleated RBC Total Counted Neutrophils % (Manual) Band Neutrophils % Lymphocytes % (Manual) Monocytes % (Manual) Nucleated RBC % Abs Neuts (Manual) Abs Lymphs (Manual) Abs Monocytes (Manual) Platelet Estimate Anisocytosis Schistocytes PT INR Puncture Site Artline ABG pH 7.442 ABG pCO2 32.3 L ABG pO2 93.1 ABG PO2/FiO2 Ratio 1.55 ABG HCO3 21.5 L ABG O2 Saturation 97.5 ABG O2 Content 13.6 L ABG Base Excess -2.0 A-a Gradient 299.2 Oxyhemoglobin 96.4 Carboxyhemoglobin 0.7 Methemoglobin 0.3 Reduced Hemoglobin 2.6 Total Hemoglobin 9.9 L O2 Delivery Device Ventilator O2 Liters/Min Not Reportable Minute Volume Not Reportable Vent Rate 22 Vent Mode Cmv FiO2 60 Tidal Volume 410 PEEP 12 Peak Inspir Pressure Not Reportable Pressure Support Not Reportable Sodium Potassium Chloride Carbon Dioxide Anion Gap BUN Creatinine Estim Creat Clear Calc Estimated GFR Glucose POC Capillary Glucose 256 H 263 H Lactic Acid Calcium Magnesium Total Bilirubin AST ALT Alkaline Phosphatase Total Protein Albumin 10/03/04/24 03/04/24 05:20 11:54 15:34 WBC 20.2 H RBC 3.36 L Hgb 9.1 L Hct 28.6 L MCV 85.1 MCH 27.1 MCHC 31.8 L RDW 15.6 H Plt Count 478 H MPV 9.0 Immature Gran % (Auto) Not Reportable Neut % (Auto) Not Reportable Lymph % (Auto) Not Reportable [place] % (Auto) Not Reportable Eos % (Auto) Not Reportable Baso % (Auto) Not Reportable Lymph # (Auto) Not Reportable [place] # (Auto) Not Reportable Eos # (Auto) Not Reportable Baso # (Auto) Not Reportable Abs Immat Gran (auto) Not Reportable Absolute Neuts (auto) Not Reportable Absolute Nucleated RBC Not Reportable Total Counted 100 Neutrophils % (Manual) 90 H Band Neutrophils % 7 H Lymphocytes % (Manual) 2 L Monocytes % (Manual) 1 L Nucleated RBC % Not Reportable Abs Neuts (Manual) 19.59 H Abs Lymphs (Manual) 0.40 L Abs Monocytes (Manual) 0.20 Platelet Estimate Increased Anisocytosis 1+ Schistocytes None seen PT 19.2 H INR 1.6 Puncture Site ABG pH ABG pCO2 ABG pO2 ABG PO2/FiO2 Ratio ABG HCO3 ABG O2 Saturation ABG O2 Content ABG Base Excess A-a Gradient Oxyhemoglobin Carboxyhemoglobin Methemoglobin Reduced Hemoglobin Total Hemoglobin O2 Delivery Device O2 Liters/Min Minute Volume Vent Rate Vent Mode FiO2 Tidal Volume PEEP Peak Inspir Pressure Pressure Support Sodium 138 139 Potassium 4.5 4.2 Chloride 109 H 108 H Carbon Dioxide 20 L 24 Anion Gap 9 7 BUN 53 H 52 H Creatinine 1.10 1.10 Estim Creat Clear Calc 68 68 Estimated GFR > 60 > 60 Glucose 272 H 269 H POC Capillary Glucose 243 H Lactic Acid 1.1 Calcium 7.7 L 8.0 L Magnesium 2.8 H Total Bilirubin 0.3 AST 65 H ALT 36 Alkaline Phosphatase 89 Total Protein 6.0 L Albumin 2.8 L Quality VTE Prophylaxis VTE prophylaxis: pharmacologic ordered Hospitalist MIPS Advance Care Plan I have confirmed that the patient's Advanced Care Plan is present, code status is documented, or surrogate decision maker is listed in patient medical record.: Yes Medication Reconciliation I have utilized all available resources to obtain, update and review the patients current medications (includes all prescriptions, OTC, herbals, cannabis, and nutritional supplements).: Yes
--- NOTE | 2024-03-04 16:45 | P.PNGS_ITS ---
Progress Note: A&P Assessment and Plan (1) Acute respiratory failure with hypoxia: Code(s): J96.01 - Acute respiratory failure with hypoxia Status: Acute Assessment and Plan: Now with bilateral infiltrates, patient paralyzed and receiving FiO2 40% and +12 peep on mechanical ventilator. Had a significant change last night with hypoxemia. Discussed with Dr. Collins. 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 Patient has had an acute worsening of his respiratory failure with more hypoxemia. He is now paralyzed and sedated on mechanical ventilator. Will hold off on proceeding with right BKA today due to this acute change in condition. He has not had to go back on vasopressor agents. Once pulmonary status fairly stable, will proceed to the operating room for right below-knee amputation. Infection in the right foot his probably playing a role in his current condition but seems to be primarily due to pneumonia. Subjective Subjective Date/Time Seen: 03/04/24 16:45 Patient reports: other (Still on mechanical ventilator) Interval history: Patient had a worsening of his respiratory failure last night. After having a bowel movement and having a weaning trial, he desaturated significantly. Chest x-ray shows diffuse infiltrates. Suggestive of bilateral pneumonia. He is now paralyzed and sedated on mechanical ventilator. He has not had to go back on vasopressor agents. Review of Systems Review of Systems: ROS unobtainable: Yes unobtainable due to endotracheal tube and unobtainable due to medical condition Exam Extrem: Right lower extremity: lower leg (No change from before) and foot (Gauze dressing in place) Objective Data Vital Signs Vital Signs: Vital Signs - 24 hr 03/03/24 17:33 03/03/24 17:58 03/03/24 17:59 Temperature Pulse Rate 93 89 88 Respiratory Rate 26 H 26 H Blood Pressure Pulse Oximetry 98 Oxygen Delivery Mechanical Ventilation Fraction of Inspired Oxygen 80 03/03/24 17:00 03/03/24 18:01 03/03/24 18:00 Temperature Pulse Rate 74 88 88 Respiratory Rate 26 H 26 H Blood Pressure 105/49 L 131/58 L Pulse Oximetry Oxygen Delivery Fraction of Inspired Oxygen 03/03/24 18:00 03/03/24 19:48 03/03/24 20:20 Temperature 36.2 C L Pulse Rate 69 72 Respiratory Rate 24 H Blood Pressure 102/45 L Pulse Oximetry 100 100 Oxygen Delivery Mechanical Ventilation Fraction of Inspired Oxygen 80 60 03/03/24 20:20 03/03/24 20:33 03/03/24 20:00 Temperature Pulse Rate 72 82 62 Respiratory Rate 22 H 22 H 26 H Blood Pressure 107/47 L Pulse Oximetry Oxygen Delivery Fraction of Inspired Oxygen 03/03/24 20:46 03/03/24 21:06 03/03/24 20:00 Temperature Pulse Rate 80 89 Respiratory Rate 22 H 22 H Blood Pressure 132/60 138/64 Pulse Oximetry 100 Oxygen Delivery Mechanical Ventilation Fraction of Inspired Oxygen 80 03/03/24 20:00 03/03/24 19:58 03/03/24 20:00 Temperature 36.4 C L Pulse Rate 62 62 62 Respiratory Rate 26 H 26 H 26 H Blood Pressure 107/47 L Pulse Oximetry 100 Oxygen Delivery Fraction of Inspired Oxygen 03/03/24 19:59 03/03/24 20:00 03/03/24 21:21 Temperature Pulse Rate 62 62 86 Respiratory Rate 26 H 26 H 22 H Blood Pressure 131/63 Pulse Oximetry Oxygen Delivery Fraction of Inspired Oxygen 03/03/24 20:00 03/03/24 22:00 03/03/24 22:00 Temperature 36.3 C L Pulse Rate 63 71 71 Respiratory Rate 22 H Blood Pressure 109/51 L Pulse Oximetry 100 Oxygen Delivery Fraction of Inspired Oxygen 03/03/24 22:00 03/03/24 22:00 03/03/24 22:00 Temperature Pulse Rate 71 71 72 Respiratory Rate 22 H 22 H 22 H Blood Pressure 109/51 L Pulse Oximetry Oxygen Delivery Fraction of Inspired Oxygen 03/03/24 21:40 03/03/24 23:22 03/03/24 23:22 Temperature Pulse Rate 86 77 77 Respiratory Rate 22 H 22 H 22 H Blood Pressure 130/64 Pulse Oximetry Oxygen Delivery Fraction of Inspired Oxygen 03/03/24 23:19 03/03/24 23:41 03/03/24 23:47 Temperature Pulse Rate 82 Respiratory Rate Blood Pressure Pulse Oximetry 100 100 Oxygen Delivery Mechanical Ventilation Mechanical Ventilation Fraction of Inspired Oxygen 60 60 60 03/04/24 00:00 03/04/24 00:00 03/04/24 00:00 Temperature 36.3 C L Pulse Rate 71 71 71 Respiratory Rate 22 H 22 H Blood Pressure 125/58 L Pulse Oximetry 100 Oxygen Delivery Fraction of Inspired Oxygen 03/04/24 00:00 03/03/24 22:30 03/04/24 00:00 Temperature Pulse Rate 71 75 71 Respiratory Rate 22 H 22 H 22 H Blood Pressure 120/65 125/58 L Pulse Oximetry Oxygen Delivery Fraction of Inspired Oxygen 03/04/24 02:00 03/04/24 02:00 03/04/24 02:00 Temperature 36.4 C L Pulse Rate 61 61 61 Respiratory Rate 22 H 22 H Blood Pressure 107/60 Pulse Oximetry 100 Oxygen Delivery Fraction of Inspired Oxygen 03/04/24 02:00 03/04/24 02:00 03/04/24 02:00 Temperature Pulse Rate 61 61 61 Respiratory Rate 22 H 22 H 22 H Blood Pressure 121/57 L Pulse Oximetry Oxygen Delivery Fraction of Inspired Oxygen 03/04/24 02:32 03/04/24 02:32 03/04/24 02:41 Temperature Pulse Rate 83 83 81 Respiratory Rate 22 H 22 H Blood Pressure Pulse Oximetry 100 Oxygen Delivery Mechanical Ventilation Fraction of Inspired Oxygen 60 03/04/24 04:00 03/04/24 04:00 03/04/24 04:00 Temperature 36.4 C L Pulse Rate 84 84 Respiratory Rate 22 H Blood Pressure 146/87 H Pulse Oximetry 99 Oxygen Delivery Fraction of Inspired Oxygen 60 03/04/24 04:00 03/04/24 05:03 03/04/24 05:00 Temperature Pulse Rate 85 85 85 Respiratory Rate 22 H 22 H 22 H Blood Pressure 147/67 H 131/70 131/70 Pulse Oximetry Oxygen Delivery Fraction of Inspired Oxygen 03/04/24 05:09 03/04/24 04:00 03/04/24 04:00 Temperature Pulse Rate 93 85 85 Respiratory Rate 22 H 22 H Blood Pressure Pulse Oximetry 100 Oxygen Delivery Mechanical Ventilation Fraction of Inspired Oxygen 60 03/04/24 04:00 03/04/24 06:00 03/04/24 06:00 Temperature 36.3 C L Pulse Rate 80 80 Respiratory Rate 22 H Blood Pressure 142/66 H Pulse Oximetry 100 100 Oxygen Delivery Mechanical Ventilation Fraction of Inspired Oxygen 60 03/04/24 06:00 03/04/24 06:00 03/04/24 06:00 Temperature Pulse Rate 93 93 93 Respiratory Rate 22 H 22 H 22 H Blood Pressure 144/67 H Pulse Oximetry Oxygen Delivery Fraction of Inspired Oxygen 03/04/24 07:50 03/04/24 07:50 03/04/24 08:08 Temperature Pulse Rate 71 71 78 Respiratory Rate 22 H 20 Blood Pressure Pulse Oximetry 100 Oxygen Delivery Mechanical Ventilation Fraction of Inspired Oxygen 60 03/04/24 07:56 03/04/24 07:57 03/04/24 07:00 Temperature Pulse Rate 93 93 62 Respiratory Rate 20 22 H 22 H Blood Pressure 108/51 L Pulse Oximetry Oxygen Delivery Fraction of Inspired Oxygen 03/04/24 07:58 03/04/24 07:56 03/04/24 08:00 Temperature Pulse Rate 93 Respiratory Rate 22 H Blood Pressure 156/76 H Pulse Oximetry 99 Oxygen Delivery Mechanical Ventilation Mechanical Ventilation Fraction of Inspired Oxygen 50 50 03/04/24 08:00 03/04/24 08:00 03/04/24 09:05 Temperature 36.3 C L Pulse Rate 83 67 Respiratory Rate 20 20 Blood Pressure 141/68 H 114/49 L Pulse Oximetry 100 Oxygen Delivery Fraction of Inspired Oxygen 50 03/04/24 08:00 03/04/24 10:05 03/04/24 10:05 Temperature Pulse Rate 79 60 60 Respiratory Rate 20 20 Blood Pressure Pulse Oximetry Oxygen Delivery Fraction of Inspired Oxygen 03/04/24 09:30 03/04/24 10:05 03/04/24 10:33 Temperature Pulse Rate 62 62 58 L Respiratory Rate 20 20 20 Blood Pressure 107/46 L 126/54 L 129/57 L Pulse Oximetry Oxygen Delivery Fraction of Inspired Oxygen 03/04/24 10:00 03/04/24 10:46 03/04/24 10:00 Temperature 36.2 C L Pulse Rate 59 L 63 58 L Respiratory Rate 21 H 20 Blood Pressure 126/54 L 132/58 L Pulse Oximetry 100 Oxygen Delivery Fraction of Inspired Oxygen 03/04/24 11:02 03/04/24 11:15 03/04/24 11:35 Temperature Pulse Rate 65 63 63 Respiratory Rate 20 20 20 Blood Pressure 127/57 L 130/57 L 128/56 L Pulse Oximetry Oxygen Delivery Fraction of Inspired Oxygen 03/04/24 11:43 03/04/24 12:00 03/04/24 12:02 Temperature Pulse Rate 60 66 66 Respiratory Rate 20 20 20 Blood Pressure 124/54 L 122/53 L Pulse Oximetry Oxygen Delivery Fraction of Inspired Oxygen 03/04/24 12:00 03/04/24 12:00 03/04/24 12:00 Temperature Pulse Rate 66 Respiratory Rate 20 Blood Pressure Pulse Oximetry 100 Oxygen Delivery Mechanical Ventilation Fraction of Inspired Oxygen 40 40 03/04/24 12:15 03/04/24 12:28 03/04/24 12:00 Temperature Pulse Rate 85 88 67 Respiratory Rate 20 22 H Blood Pressure 135/64 131/58 L Pulse Oximetry Oxygen Delivery Fraction of Inspired Oxygen 03/04/24 12:00 03/04/24 12:45 03/04/24 12:55 Temperature 36.2 C L Pulse Rate 85 89 85 Respiratory Rate 21 H 22 H 20 Blood Pressure 138/62 139/62 139/62 Pulse Oximetry 100 Oxygen Delivery Fraction of Inspired Oxygen 03/04/24 10:40 03/04/24 13:43 03/04/24 13:43 Temperature Pulse Rate 78 67 67 Respiratory Rate 20 Blood Pressure Pulse Oximetry 100 100 Oxygen Delivery Mechanical Ventilation Mechanical Ventilation Fraction of Inspired Oxygen 50 50 03/04/24 13:49 03/04/24 14:02 03/04/24 13:30 Temperature Pulse Rate 79 105 H 68 Respiratory Rate 20 20 20 Blood Pressure 114/49 L Pulse Oximetry Oxygen Delivery Fraction of Inspired Oxygen 03/04/24 14:02 03/04/24 14:02 03/04/24 14:23 Temperature Pulse Rate 105 H 105 H 90 Respiratory Rate 20 20 22 H Blood Pressure 135/70 Pulse Oximetry Oxygen Delivery Fraction of Inspired Oxygen 03/04/24 14:00 03/04/24 14:00 03/04/24 14:47 Temperature 36.3 C L Pulse Rate 105 H 105 H 77 Respiratory Rate 20 20 Blood Pressure 130/70 134/57 L Pulse Oximetry 90 Oxygen Delivery Fraction of Inspired Oxygen 03/04/24 15:00 03/04/24 15:35 03/04/24 16:00 Temperature Pulse Rate 72 62 Respiratory Rate 20 20 Blood Pressure 121/51 L 119/50 L Pulse Oximetry Oxygen Delivery Fraction of Inspired Oxygen 40 03/04/24 16:00 03/04/24 16:03 03/04/24 16:03 Temperature Pulse Rate 60 60 60 Respiratory Rate 20 20 Blood Pressure 128/54 L Pulse Oximetry Oxygen Delivery Fraction of Inspired Oxygen 03/04/24 16:03 Temperature Pulse Rate 60 Respiratory Rate 20 Blood Pressure Pulse Oximetry Oxygen Delivery Fraction of Inspired Oxygen Intake/Output Intake/Output: Intake & Output 03/01/24 03/02/24 03/03/24 03/04/24 23:59 23:59 23:59 23:59 Intake Total 4725.3 3016.0 2079.4 1337.3 Output Total 203 472 2720 650 Balance 4100.3 2516.0 724.4 687.3 Meds/Results Medications: Active Medications Generic Name Dose Route Start Last Admin Trade Name Freq PRN Reason Stop Dose Admin Acetaminophen 500 mg 02/28/24 19:15 Acetaminophen 500 Mg Tablet PO Q6H PRN Pain Rated 1-3 Albuterol/Ipratropium 3 ml 02/29/24 02:00 03/04/24 13:40 Ipratropium 0.5 Mg/Albuterol Sulfate 2.5 Mg Ampul.Neb 3 Ml INHALATION 3 ml Q6HRT JASON Administration Aspirin 81 mg 03/01/24 08:00 03/04/24 08:05 Aspirin 81 Mg Chewable Tablet PO 81 mg DAILY@0800 JASON Administration Atorvastatin Calcium 80 mg 03/01/24 09:00 03/04/24 08:05 Atorvastatin 40 Mg Tablet PO 80 mg DAILY JASON Administration Dextrose 12.5 gm 02/28/24 19:23 Dextrose 50% 25 Gm/50 Ml Syringe IV PUSH PRN PRN Hypoglycemia Protocol Furosemide 80 mg 03/04/24 09:00 03/04/24 08:07 Furosemide Inj 100 Mg/10 Ml Vial IV PUSH 03/04/24 17:01 80 mg BID JASON Administration Glucagon 1 mg 02/28/24 19:23 Glucagon For Inj 1 Mg Vial IM PRN PRN Hypoglycemia Protocol Glucose 15 gm 02/28/24 19:23 Glucose Oral Gel 15 Gm Of Glucse In 37.5 Gm Tube PO PRN PRN Hypoglycemia Protocol Heparin Sodium (Porcine) 5,000 units 03/03/24 14:00 03/04/24 14:12 Heparin Sodium 5,000 Units/Ml Vial SUB-Q 5,000 units Q8HR JASON Administration Hydralazine HCl 10 mg 03/03/24 15:19 Hydralazine Hcl 20 Mg/Ml Vial IV PUSH Q4HR PRN Hypertension Hydrocortisone Sodium Succinate 50 mg 03/03/24 12:00 03/04/24 12:16 Hydrocortisone Sodium Succinate 100 Mg/2 Ml Vial IV PUSH 03/05/24 00:01 50 mg Q12H JASON Administration Dextrose 1,000 mls @ 100 mls/hr 02/28/24 19:23 Dextrose 5% 1,000 Ml IVPB PRN PRN Hypoglycemia Protocol Fentanyl Citrate 2,500 mcg in 250 mls @ 15 mls/hr 02/28/24 21:20 03/04/24 16:03 Fentanyl 2,500 Mcg/Ns 250 Ml IV CONT 150 mcg/hr .[id number] JASON 15 mls/hr Titration Protocol 150 MCG/HR Midazolam HCl 100 mg in 100 mls @ 5 mls/hr 02/28/24 21:20 03/04/24 16:03 Versed 100 Mg/Ns 100 Ml IV CONT 5 mg/hr .Q20H JASON 5 mls/hr Titration Protocol 5 MG/HR Meropenem 1 gm in 100 mls @ 200 mls/hr 02/28/24 22:00 03/04/24 14:49 IVPB Infused Q8H JASON Infusion Clindamycin Phosphate 900 mg in 50 mls @ 50 mls/hr 02/28/24 21:00 03/04/24 14:17 Cleocin 900 Mg/D5w 50 Ml IVPB 03/04/24 21:59 Infused Q8H JASON Infusion Vancomycin HCl 1,500 mg in 500 mls @ 250 mls/hr 03/03/24 22:00 03/03/24 23:32 Vancomycin 1,500 Mg/Ns 500 Ml IVPB Infused Q24H JASON Infusion Cisatracurium Besylate 200 mg/ 100 mls @ 4.617 mls/hr 03/03/24 15:10 03/04/24 16:03 Dextrose IV CONT 1.5 mcg/kg/min .[id number] JASON 4.62 mls/hr Titration Protocol 1.5 MCG/KG/MIN Insulin Aspart 3 - 6 units 03/01/24 00:00 03/04/24 12:10 Insulin Aspart (*Bkc) 100 Units/Ml SUB-Q 3 units Q6H JASON Administration Protocol Insulin Glargine 30 units 03/04/24 09:00 03/04/24 08:06 Insulin Glargine (*Bkc) 100 Units/Ml SUB-Q 30 units DAILY JASON Administration Metoclopramide HCl 10 mg 03/04/24 08:00 03/04/24 12:14 Metoclopramide Hcl 10 Mg/10 Ml Soln Udc FEED TUBE 10 mg Q6HR JASON Administration Midodrine 10 mg 03/02/24 09:00 03/04/24 12:14 Midodrine Hcl 10 Mg Tablet PO 10 mg TID JASON Administration Multi-Ingred Cream/Lotion/Oil/Oint 1 applic 02/29/24 09:00 03/04/24 08:07 Mineral Oil/White Petrolatum Ointment EACH EYE 1 applic Q12HR JASON Administration Naloxone HCl 0.1 mg 02/28/24 19:15 Naloxone Hcl 0.4 Mg/Ml Vial IV PUSH Q2M PRN Opiate Reversal Pantoprazole Sodium 40 mg 03/02/24 09:00 03/04/24 08:06 Pantoprazole Sodium Iv 40 Mg Vial IV PUSH 40 mg Q12HR JASON Administration Sodium Chloride 10 ml 02/29/24 06:00 03/04/24 14:17 Central Line Flush IV PUSH 10 ml Q8HR JASON Administration Sodium Chloride 20 ml 02/28/24 23:37 Central Line Flush IV PUSH PRN PRN after blood draws Radiology Results: ITS Impressions Lower Extremity CTA 02/28/24 14:54 IMPRESSION: 1. 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 2. Moderate stenosis of right popliteal artery. 3. Osteomyelitis involving first proximal and distal phalanges and head of first metatarsal. Head CT 02/29/24 05:55 Impression: No intracranial hemorrhage, mass, or acute infarct. Stable chronic encephalomalacia in the high left parietal lobe. Atrophy and chronic white matter changes, as above. Chest/Abdomen/Pelvis CTA 02/29/24 06:02 Impression: Extensive right upper lobe consolidation and more mild right middle lobe consolidation, consistent with pneumonia. Consider aspiration pneumonia. Moderate to large right pleural effusion with complete atelectasis of the right lower lobe. Moderate left pleural effusion with minimal left basilar atelectasis. Small pericardial effusion. No definite acute abnormality in the abdomen or pelvis. Chronic compression fractures, as above. Renal Ultrasound 03/03/24 15:45 IMPRESSION: 1. Normal kidneys without hydronephrosis. 2. Small amount of ascites in the abdomen and pelvis. Chest X-Ray 03/04/24 08:33 IMPRESSION: Bilateral pneumonia. Right pleural effusion. Labs Labs: Laboratory Results - last 24 hr 03/03/24 03/03/24 03/03/24 12:16 17:27 20:15 WBC RBC Hgb Hct MCV MCH MCHC RDW Plt Count MPV Immature Gran % (Auto) Neut % (Auto) Lymph % (Auto) [place] % (Auto) Eos % (Auto) Baso % (Auto) Lymph # (Auto) [place] # (Auto) Eos # (Auto) Baso # (Auto) Abs Immat Gran (auto) Absolute Neuts (auto) Absolute Nucleated RBC Total Counted Neutrophils % (Manual) Band Neutrophils % Lymphocytes % (Manual) Monocytes % (Manual) Nucleated RBC % Abs Neuts (Manual) Abs Lymphs (Manual) Abs Monocytes (Manual) Platelet Estimate Anisocytosis Schistocytes PT INR Puncture Site Artline ABG pH 7.424 ABG pCO2 32.4 L ABG pO2 133.2 H ABG PO2/FiO2 Ratio 1.66 ABG HCO3 20.7 L ABG O2 Saturation 98.7 ABG O2 Content 14.1 L ABG Base Excess -3.0 A-a Gradient 403.2 Oxyhemoglobin 98.3 Carboxyhemoglobin Methemoglobin Reduced Hemoglobin Total Hemoglobin 10.0 L O2 Delivery Device Ventilator O2 Liters/Min Not Reportable Minute Volume Not Reportable Vent Rate 26 24 Vent Mode Cmv FiO2 80 Tidal Volume 410 PEEP 12 Peak Inspir Pressure Not Reportable Pressure Support Not Reportable Sodium Potassium Chloride Carbon Dioxide Anion Gap BUN Creatinine Estim Creat Clear Calc Estimated GFR Glucose POC Capillary Glucose 276 H Lactic Acid Calcium Magnesium Total Bilirubin AST ALT Alkaline Phosphatase Total Protein Albumin 03/03/24 03/04/24 03/04/24 23:18 04:56 05:09 WBC RBC Hgb Hct MCV MCH MCHC RDW Plt Count MPV Immature Gran % (Auto) Neut % (Auto) Lymph % (Auto) [place] % (Auto) Eos % (Auto) Baso % (Auto) Lymph # (Auto) [place] # (Auto) Eos # (Auto) Baso # (Auto) Abs Immat Gran (auto) Absolute Neuts (auto) Absolute Nucleated RBC Total Counted Neutrophils % (Manual) Band Neutrophils % Lymphocytes % (Manual) Monocytes % (Manual) Nucleated RBC % Abs Neuts (Manual) Abs Lymphs (Manual) Abs Monocytes (Manual) Platelet Estimate Anisocytosis Schistocytes PT INR Puncture Site Artline ABG pH 7.442 ABG pCO2 32.3 L ABG pO2 93.1 ABG PO2/FiO2 Ratio 1.55 ABG HCO3 21.5 L ABG O2 Saturation 97.5 ABG O2 Content 13.6 L ABG Base Excess -2.0 A-a Gradient 299.2 Oxyhemoglobin 96.4 Carboxyhemoglobin 0.7 Methemoglobin 0.3 Reduced Hemoglobin 2.6 Total Hemoglobin 9.9 L O2 Delivery Device Ventilator O2 Liters/Min Not Reportable Minute Volume Not Reportable Vent Rate 22 Vent Mode Cmv FiO2 60 Tidal Volume 410 PEEP 12 Peak Inspir Pressure Not Reportable Pressure Support Not Reportable Sodium Potassium Chloride Carbon Dioxide Anion Gap BUN Creatinine Estim Creat Clear Calc Estimated GFR Glucose POC Capillary Glucose 256 H 263 H Lactic Acid Calcium Magnesium Total Bilirubin AST ALT Alkaline Phosphatase Total Protein Albumin 03/04/24 03/04/24 03/04/24 05:20 11:54 15:34 WBC 20.2 H RBC 3.36 L Hgb 9.1 L Hct 28.6 L MCV 85.1 MCH 27.1 MCHC 31.8 L RDW 15.6 H Plt Count 478 H MPV 9.0 Immature Gran % (Auto) Not Reportable Neut % (Auto) Not Reportable Lymph % (Auto) Not Reportable [place] % (Auto) Not Reportable Eos % (Auto) Not Reportable Baso % (Auto) Not Reportable Lymph # (Auto) Not Reportable [place] # (Auto) Not Reportable Eos # (Auto) Not Reportable Baso # (Auto) Not Reportable Abs Immat Gran (auto) Not Reportable Absolute Neuts (auto) Not Reportable Absolute Nucleated RBC Not Reportable Total Counted 100 Neutrophils % (Manual) 90 H Band Neutrophils % 7 H Lymphocytes % (Manual) 2 L Monocytes % (Manual) 1 L Nucleated RBC % Not Reportable Abs Neuts (Manual) 19.59 H Abs Lymphs (Manual) 0.40 L Abs Monocytes (Manual) 0.20 Platelet Estimate Increased Anisocytosis 1+ Schistocytes None seen PT 19.2 H INR 1.6 Puncture Site ABG pH ABG pCO2 ABG pO2 ABG PO2/FiO2 Ratio ABG HCO3 ABG O2 Saturation ABG O2 Content ABG Base Excess A-a Gradient Oxyhemoglobin Carboxyhemoglobin Methemoglobin Reduced Hemoglobin Total Hemoglobin O2 Delivery Device O2 Liters/Min Minute Volume Vent Rate Vent Mode FiO2 Tidal Volume PEEP Peak Inspir Pressure Pressure Support Sodium 138 139 Potassium 4.5 4.2 Chloride 109 H 108 H Carbon Dioxide 20 L 24 Anion Gap 9 7 BUN 53 H 52 H Creatinine 1.10 1.10 Estim Creat Clear Calc 68 68 Estimated GFR > 60 > 60 Glucose 272 H 269 H POC Capillary Glucose 243 H Lactic Acid 1.1 Calcium 7.7 L 8.0 L Magnesium 2.8 H Total Bilirubin 0.3 AST 65 H ALT 36 Alkaline Phosphatase 89 Total Protein 6.0 L Albumin 2.8 L
[2024-03-04 17:08] LABS: Glucose Point of Care 272 mg/dl (65-105)
[2024-03-04] MEDS: VANCOMYCIN 1,500 MG/NS 500 ML 1,500 MG/500 ML BAG 250 MG IVPB (20:58)
[2024-03-04] MEDS: MIDAZOLAM 100MG/NS 100ML(*CRX) 100 MG/100 ML BAG IV CONT (22:47)
[2024-03-04] MEDS: FENTANYL 2,500MCG/NS250ML(*CRX 2,500 MCG/250 ML BAG 15 MCG IV CONT (23:21)
[2024-03-04 23:26] LABS: Glucose Point of Care 213 mg/dl (65-105)
[2024-03-05] VITALS (40 sets, daily range): BP systolic 108–160; BP diastolic 51–81; PULSE 62–118; RESP 16–21; TEMP 36.2–37.2; O2SAT 95–100
[2024-03-05] MEDS: IPRATROPIUM 0.5 MG/ALBUTEROL SULFATE 2.5 MG AMPUL.NEB 3 ML INHALATION ×4 (02:05→20:02)
[2024-03-05 04:47] LABS: Alveolar/Arterial O2 Gradient 146.2 mmHg; Base Excess ABG 2.2 mEq/l (+/-2.0); Fractional Inspired Oxygen 40 %; HCO3 ABG 25.3 mEq/l (22.0-26.0); Methemoglobin ABG 0.3 %THb (0-1.5); Oxygen Content ABG 14.3 %vol (16.0-22.0); Oxyhemoglobin 96.7 % THb (90.0-100.0); PCO2 ABG 33.7 mmHg (35.0-45.0); PO2 ABG 100.2 mmHg (80.0-100.0); Total Hemoglobin 10.4 g/dL (12.0-18.0); pH ABG 7.493 (7.350-7.450)
[2024-03-05 04:49] LABS: Device VENTILATOR; Modified Allen's Test Pass; Site Drawn ARTLINE
[2024-03-05 04:50] LABS: Arterial Blood Gas PEEP 12 cmH2O; Arterial Blood Gas Tidal Volume 410 ml; Arterial Blood Gas Vent Mode CMV; Arterial Blood Gas Ventilator rate 20 /MIN
[2024-03-05] MEDS: HEPARIN SODIUM 5,000 UNITS/ML VIAL 5000 UNITS SUB-Q ×2 (05:01→21:48)
[2024-03-05] MEDS: METOCLOPRAMIDE HCL 10 MG/10 ML SOLN UDC FEED TUBE ×2 (05:01→18:18)
[2024-03-05] MEDS: CENTRAL LINE FLUSH 10 ML IV PUSH ×3 (05:01→21:06)
[2024-03-05] MEDS: MEROPENEM 1 GM/NS 100 ML 1 GM/100 ML BAG IVPB ×3 (05:01→21:48)
[2024-03-05] MEDS: INSULIN ASPART (*BKC) 100 UNITS/ML SUB-Q (05:13)
[2024-03-05 05:16] LABS: Basophils Absolute Auto 0.1 K/mm3 (0.0-0.1); Basophils Percent Auto 0.3 % (0.2-1.2); Eosinophils Percent Auto 0.1 % (0-4.4); Hematocrit 28.2 % (42.0-52.0); Hemoglobin 9.1 g/dL (14.0-18.0); Immature Granulocyte Absolute 0.29 K/mm3 (0.00-0.031); Immature Granulocyte Percent A 1.6 % (0-0.5); Lymphocytes Percent Auto 6.1 % (18.3-44.2); Mean Corpuscular HGB Conc 32.3 g/dl (32-36); Mean Corpuscular Hemoglobin 27.5 pg (26-34); Mean Corpuscular Volume 85.2 fl (80-100); Mean Platelet Volume 9.4 fl (7.4-10.4); Monocytes Absolute Auto 1.2 K/mm3 (0.1-0.6); Monocytes Percent Auto 6.6 % (2.6-8.5); Neutrophils Absolute Auto 15.5 K/mm3 (1.3-6.7); Neutrophils Percent Auto 85.3 % (45.5-73.1); Platelet Count Result 456 k/mm3 (150-375); Red Blood Count 3.31 M/mm3 (4.6-6.20); Red Cell Distribution Width 15.6 % (11.5-14.5); White Blood Count 18.1 K/mm3 (4.5-10.0)
[2024-03-05 05:16] LABS: Glucose Point of Care 250 mg/dl (65-105)
[2024-03-05 05:29] LABS: Alanine Aminotransferase 51 U/L (6-50); Albumin Level 2.8 g/dL (3.5-5.1); Alkaline Phosphatase 93 U/L (38-126); Anion Gap 6 mmol/L (4-12); Aspartate Amino Transferase 56 U/L (17-59); Bilirubin,Total 0.4 mg/dL (0.2-1.3); Blood Urea Nitrogen 58 mg/dL (9-20); Carbon Dioxide 25 mmol/L (22-30); Chloride 109 mmol/L (98-107); Estimated CRCL calculation 75 ml/min; Estimated Glomerular Filt Rate > 60; Glucose 283 mg/dL (65-110); Magnesium 2.9 mg/dL (1.6-2.3); Potassium 4.5 mmol/L (3.4-5.0); Sodium 140 mmol/L (137-145)
[2024-03-05 05:36] LABS: INR 1.5; Prothrombin Time 18.5 Seconds (11.1-14.7)
--- NOTE | 2024-03-05 06:08 | ECG_ITS ---
Test Date: 2024-03-05 06:15:33 Measurements Intervals [place] Rate: 87 P: 54 DC: 144 QRS: 20 QRSD: 103 T: 81 QT: 363 QTc: 437 Interpretive Statements SINUS RHYTHM LOW QRS VOLTAGE IN EXTREMITY LEADS [QRS DEFLECTION < 0.5 mV IN LIMB LEADS] NONSPECIFIC ST & T-WAVE ABNORMALITY ABNORMAL ECG INTERPRETATION BASED ON A DEFAULT AGE OF 40 YEARS Compared to ECG 02/29/2024 11:27:00 Low QRS voltage now present Possible ischemia no longer present T-wave abnormality still present Electronically Signed On 03-05-2024 10:23:24 CDT by Abraham Bass M.D.
--- NOTE | 2024-03-05 08:02 | WPDINTPN ---
Progress Note: A&P Assessment and Plan (1) Acute respiratory failure with hypoxia: Code(s): J96.01 - Acute respiratory failure with hypoxia Status: Acute Assessment and Plan: Acute respiratory failure likely related to cardiac arrest, aspiration pneumonia, NSTEMI, hypoxia, septic shock Worsening likely secondary to ARDS versus pulmonary edema -currently CMV mode of ventilation, peep of 12, 40% FiO2. Decrease PEEP to 10 -chest x-ray reviewed. Advance ET tube by 2 cm -continue bronchodilators -on fentanyl and Versed infusion for sedation -DC Nimbex for neuromuscular brayden -continue diuresis (2) Cardiac arrest with pulseless electrical activity: Code(s): I46.9 - Cardiac arrest, cause unspecified Status: Acute Assessment and Plan: Cardiac arrest, secondary to unknown etiology. Possible aspiration pneumonia, NSTEMI, hypoxia, septic shock, infection -see code blue sheet for the details -patient currently intubated, vasopressors for blood pressure support have been weaned off -appreciate cardiology following the patient 02/29/2024 echocardiogram Summary 1. Technically difficult study with limited views. 2. Left ventricular chamber dimension is normal. 3. Left ventricular systolic function is mildly reduced, estimated at 45-50%. The apex appears to be hypokinetic. 4. There is mildly increased left ventricular wall thickness. 5. The left ventricular diastolic function is grade I diastolic dysfunction. 6. Right ventricular systolic function is normal. 7. Left atrial chamber dimension is moderately enlarged. 8. There is mild to moderate tricuspid valve regurgitation. 9. There is small anterior pericardial effusion. (3) Septic shock: Code(s): A41.9 - Sepsis, unspecified organism; R65.21 - Severe sepsis with septic shock Status: Acute Assessment and Plan: Patient in shock, likely related to the gangrene, aspiration pneumonia, status post cardiac arrest 02/28/2024: Blood cultures have been obtained and negative till now -lactic acid has normalized -patient has been adequately fluid-resuscitated -OFF Levophed -wean stress dose steroids -continue midodrine -status post albumin for intravascular volume expansion (4) NSTEMI (non-ST elevated myocardial infarction): Code(s): I21.4 - Non-ST elevation (NSTEMI) myocardial infarction Status: Acute Assessment and Plan: Increasing troponins, -EKG showed sinus rhythm with T-wave changes in V1 to V5 -appreciate cardiology evaluation and recommendation -Continue aspirin and high-dose a statin -will hold Brilinta -will also hold beta-brayden, losartan which is home med, since he is hypotensive on vasopressors -03/02 heparin infusion was discontinued after 48 hours for NSTEMI by cardiology (5) Gangrene of right foot: Code(s): I96 - Gangrene, not elsewhere classified Status: Acute Assessment and Plan: CTA showed peripheral arterial disease with total occlusion of the right anterior and posterior tibial arteries and right peroneal artery with distal reconstitution of peroneal artery. This extensive gangrene of the right foot with gas seen on CT of the foot. General surgery spoke to the patient in the ER on the day of admission on 02/27 patient at that time agreed for below-knee amputation. Plan was to do a below-knee amputation on 02/29/2024 but patient had a cardiac arrest that night secondary to sepsis. Surgery at that time was deferred. Patient now is intubated sedated and unable to sign his consent.. Patient has no family and for many years at the snf has had no visitor. He has 1 son which no one has been able to get hold off right several attempts. Considering patient has gangrene of the foot with no vascular supply leading to sepsis and if untreatable lead to his , Dr. Johns will proceed with amputation today. [place] and Dr. Johns has signed 2 physician consent considering patient's clearly expressed wishes prior to cardiac arrest at the time of admission, his current situation and inability to sign the consent form by himself at this time. -continue antibiotics for necrotizing gas gangrene. Patient on meropenem and vancomycin which was started on 02/28/2024 -complete 5 days of clindamycin (6) Osteomyelitis of toe of right foot: Code(s): M86.9 - Osteomyelitis, unspecified Status: Chronic Assessment and Plan: As above (7) Peripheral vascular disease: Code(s): I73.9 - Peripheral vascular disease, unspecified Status: Chronic Assessment and Plan: Patient has history of peripheral vascular disease, coronary artery disease -started on aspirin, patient will require Brilinta since he had a STEMI in 2020 but currently holding Brilinta due to possible amputation (8) Type 2 diabetes mellitus: Qualifiers: 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 complication status: with other specified complication 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 extermination inspector insulin use: with intermediate use Qualified Code(s): E11.69 - Type 2 diabetes mellitus with other specified complication; Z79.4 - half-way (current) use of insulin Code(s): E11.9 - Type 2 diabetes mellitus without complications Status: Acute Assessment and Plan: Currently on sliding scale insulin, Accu-Cheks Hemoglobin A1c this admission is 8.2 Increase Lantus (9) Chronic obstructive pulmonary disease: Code(s): J44.9 - Chronic obstructive pulmonary disease, unspecified Status: Acute Assessment and Plan: Continue DuoNebs -continue Symbicort Plan DVT prophylaxis: Heparin subQ Stress ulcer prophylaxis: Protonix Nutrition: Tube feeds at goal and tolerating Code Status: Full code. Patient has no family available. Care coordination is trying to locate patient's son Critical Care Time Spent: 30 minutes Due to a high probability of clinically significant, life threatening deterioration, the patient required my highest level of preparedness to intervene emergently and I personally spent this critical care time directly and personally managing the patient. This critical care time included obtaining a history; examining the patient; pulse oximetry; ordering and review of studies; arranging urgent treatment with development of a management plan; evaluation of patient's response to treatment; frequent reassessment; and discussions with other providers. It was exclusive of separately billable procedures and treating other patients and teaching time. Please see Assessment and Plan section and the rest of the note for further information on patient assessment and treatment This dictation may have been done utilizing a voice recognition system. Attempts have been made to correct errors. However, there may be uncorrected grammatical, spelling, and recognitions errors present. Subjective Date/time seen: 03/05/24 Overnight events reviewed. Afebrile Continues to be on mechanical ventilation 40% FiO2 and 12 peep Tolerating tube feeds Off vasopressors Continues to be sedated with Versed fentanyl and paralyzed with Nimbex infusion Other Vitals acceptable Improved urine output in response to diuretics Interval history: Reason for consult: Status post PEA arrest, right foot gangrene with cellulitis, shock Review of Systems Review of Systems: ROS unobtainable: Yes unobtainable due to endotracheal tube, unobtainable due to medical condition and unobtainable due to mental status Exam Narrative: General: Patient intubated and sedated and chemically paralyzed HEENT:, pupils are equal and reactive from a sclera is clear Neck:? supple Respiratory:? Coarse breath sounds bilaterally, decreased at bases, adequate air entry Cardiac:? S1-S2 normal, regular rate and rhythm Abdomen:? Soft, nontender, nondistended, hypoactive bowel sounds Extremities:? Gangrenous right 1st toe down to the 1st metatarsal, dorsum of the foot and all the way to approximately the heel on the medial aspect and plantar aspect of the foot over the 1st metatarsal. Purulent drainage and foul order. There is also erythema and swelling of the right foot. Right foot is now in a dressing. Posterior tibial and pedal pulses are not palpable Neuro:? Patient is intubated, sedated, and chemically paralyzed PERRL Skin:? Patient has maceration of his perianal area, and states to pressure ulcer on his buttocks. Psych:? Unable to assess at this time Objective Data Vital Signs Vital Signs: Vital Signs - 24 hr 03/04/24 08:08 03/04/24 09:05 03/04/24 10:05 Temperature Pulse Rate 78 67 60 Respiratory Rate 20 20 20 Blood Pressure 114/49 L Pulse Oximetry Oxygen Delivery Fraction of Inspired Oxygen 03/04/24 10:05 03/04/24 09:30 03/04/24 10:05 Temperature Pulse Rate 60 62 62 Respiratory Rate 20 20 20 Blood Pressure 107/46 L 126/54 L Pulse Oximetry Oxygen Delivery Fraction of Inspired Oxygen 03/04/24 10:33 03/04/24 10:00 03/04/24 10:46 Temperature 36.2 C L Pulse Rate 58 L 59 L 63 Respiratory Rate 20 21 H 20 Blood Pressure 129/57 L 126/54 L 132/58 L Pulse Oximetry 100 Oxygen Delivery Fraction of Inspired Oxygen 03/04/24 10:00 03/04/24 11:02 03/04/24 11:15 Temperature Pulse Rate 58 L 65 63 Respiratory Rate 20 20 Blood Pressure 127/57 L 130/57 L Pulse Oximetry Oxygen Delivery Fraction of Inspired Oxygen 03/04/24 11:35 03/04/24 11:43 03/04/24 12:00 Temperature Pulse Rate 63 60 66 Respiratory Rate 20 20 20 Blood Pressure 128/56 L 124/54 L Pulse Oximetry Oxygen Delivery Fraction of Inspired Oxygen 03/04/24 12:02 03/04/24 12:00 03/04/24 12:00 Temperature Pulse Rate 66 66 Respiratory Rate 20 20 Blood Pressure 122/53 L Pulse Oximetry 100 Oxygen Delivery Mechanical Ventilation Fraction of Inspired Oxygen 40 03/04/24 12:00 03/04/24 12:15 03/04/24 12:28 Temperature Pulse Rate 85 88 Respiratory Rate 20 22 H Blood Pressure 135/64 131/58 L Pulse Oximetry Oxygen Delivery Fraction of Inspired Oxygen 40 03/04/24 12:00 03/04/24 12:00 03/04/24 12:45 Temperature 36.2 C L Pulse Rate 67 85 89 Respiratory Rate 21 H 22 H Blood Pressure 138/62 139/62 Pulse Oximetry 100 Oxygen Delivery Fraction of Inspired Oxygen 03/04/24 12:55 03/04/24 10:40 03/04/24 13:43 Temperature Pulse Rate 85 78 67 Respiratory Rate 20 Blood Pressure 139/62 Pulse Oximetry 100 100 Oxygen Delivery Mechanical Ventilation Mechanical Ventilation Fraction of Inspired Oxygen 50 40 03/04/24 13:43 03/04/24 13:49 03/04/24 14:02 Temperature Pulse Rate 67 79 105 H Respiratory Rate 20 20 20 Blood Pressure Pulse Oximetry Oxygen Delivery Fraction of Inspired Oxygen 03/04/24 13:30 03/04/24 14:02 03/04/24 14:02 Temperature Pulse Rate 68 105 H 105 H Respiratory Rate 20 20 20 Blood Pressure 114/49 L 135/70 Pulse Oximetry Oxygen Delivery Fraction of Inspired Oxygen 03/04/24 14:23 03/04/24 14:00 03/04/24 14:00 Temperature 36.3 C L Pulse Rate 90 105 H 105 H Respiratory Rate 22 H 20 Blood Pressure 130/70 Pulse Oximetry 90 Oxygen Delivery Fraction of Inspired Oxygen 03/04/24 14:47 03/04/24 15:00 03/04/24 15:35 Temperature Pulse Rate 77 72 62 Respiratory Rate 20 20 20 Blood Pressure 134/57 L 121/51 L 119/50 L Pulse Oximetry Oxygen Delivery Fraction of Inspired Oxygen 03/04/24 16:00 03/04/24 16:00 03/04/24 16:03 Temperature Pulse Rate 60 60 Respiratory Rate 20 Blood Pressure Pulse Oximetry Oxygen Delivery Fraction of Inspired Oxygen 40 03/04/24 16:03 03/04/24 16:03 03/04/24 16:00 Temperature 36.3 C L Pulse Rate 60 60 60 Respiratory Rate 20 20 20 Blood Pressure 128/54 L 115/57 L Pulse Oximetry 98 Oxygen Delivery Fraction of Inspired Oxygen 03/04/24 16:34 03/04/24 16:32 03/04/24 17:00 Temperature Pulse Rate 65 60 60 Respiratory Rate 20 20 Blood Pressure 122/52 L 119/51 L Pulse Oximetry 99 Oxygen Delivery Mechanical Ventilation Fraction of Inspired Oxygen 40 03/04/24 16:00 03/04/24 17:33 03/04/24 18:00 Temperature Pulse Rate 99 80 Respiratory Rate 20 Blood Pressure 136/61 Pulse Oximetry 100 Oxygen Delivery Mechanical Ventilation Fraction of Inspired Oxygen 40 03/04/24 18:08 03/04/24 18:07 03/04/24 18:08 Temperature Pulse Rate 80 80 80 Respiratory Rate 20 20 20 Blood Pressure 133/54 L Pulse Oximetry Oxygen Delivery Fraction of Inspired Oxygen 03/04/24 18:00 03/04/24 19:35 03/04/24 19:36 Temperature 36.4 C Pulse Rate 84 69 85 Respiratory Rate 20 20 Blood Pressure 140/58 L Pulse Oximetry 98 99 Oxygen Delivery Mechanical Ventilation Fraction of Inspired Oxygen 40 03/04/24 19:58 03/04/24 20:00 03/04/24 20:00 Temperature 36.7 C Pulse Rate 75 78 78 Respiratory Rate 20 21 H Blood Pressure 126/50 L Pulse Oximetry 99 Oxygen Delivery Fraction of Inspired Oxygen 03/04/24 20:00 03/04/24 20:00 03/04/24 20:00 Temperature Pulse Rate 78 78 78 Respiratory Rate 21 H 21 H 21 H Blood Pressure 126/50 L Pulse Oximetry Oxygen Delivery Fraction of Inspired Oxygen 03/04/24 20:00 03/04/24 20:39 03/04/24 20:54 Temperature Pulse Rate 74 75 Respiratory Rate 21 H 20 Blood Pressure 119/48 L 129/53 L Pulse Oximetry Oxygen Delivery Fraction of Inspired Oxygen 40 03/04/24 20:00 03/04/24 22:00 03/04/24 22:00 Temperature 36.6 C Pulse Rate 72 72 Respiratory Rate 20 Blood Pressure 162/91 H Pulse Oximetry 99 98 Oxygen Delivery Mechanical Ventilation Fraction of Inspired Oxygen 40 03/04/24 22:00 03/04/24 22:00 03/04/24 22:00 Temperature Pulse Rate 72 72 72 Respiratory Rate 20 20 20 Blood Pressure 162/91 H Pulse Oximetry Oxygen Delivery Fraction of Inspired Oxygen 03/04/24 22:17 03/04/24 23:00 03/04/24 23:00 Temperature Pulse Rate 70 71 71 Respiratory Rate 20 20 Blood Pressure 136/60 136/60 Pulse Oximetry 99 Oxygen Delivery Mechanical Ventilation Fraction of Inspired Oxygen 40 03/04/24 22:47 03/04/24 22:47 03/04/24 22:48 Temperature Pulse Rate 81 81 81 Respiratory Rate 20 20 20 Blood Pressure Pulse Oximetry Oxygen Delivery Fraction of Inspired Oxygen 03/04/24 23:21 03/04/24 23:52 03/05/24 00:00 Temperature Pulse Rate 81 Respiratory Rate 20 Blood Pressure Pulse Oximetry 98 Oxygen Delivery Mechanical Ventilation Fraction of Inspired Oxygen 40 40 03/05/24 00:00 03/05/24 00:00 03/05/24 00:00 Temperature 36.6 C Pulse Rate 81 81 81 Respiratory Rate 20 20 Blood Pressure 153/71 H Pulse Oximetry 98 Oxygen Delivery Fraction of Inspired Oxygen 03/05/24 02:05 03/05/24 02:00 03/05/24 02:15 Temperature Pulse Rate 62 62 66 Respiratory Rate 20 20 Blood Pressure Pulse Oximetry 100 Oxygen Delivery Mechanical Ventilation Fraction of Inspired Oxygen 40 03/05/24 02:00 03/05/24 04:00 03/05/24 00:00 Temperature Pulse Rate 62 76 85 Respiratory Rate 20 20 20 Blood Pressure 156/73 H Pulse Oximetry Oxygen Delivery Fraction of Inspired Oxygen 03/05/24 02:00 03/05/24 04:00 03/05/24 04:55 Temperature Pulse Rate 62 87 94 Respiratory Rate 20 20 20 Blood Pressure 145/66 H 139/63 160/78 H Pulse Oximetry Oxygen Delivery Fraction of Inspired Oxygen 03/05/24 00:00 03/05/24 02:00 03/05/24 04:00 Temperature Pulse Rate 85 62 76 Respiratory Rate 20 20 20 Blood Pressure Pulse Oximetry Oxygen Delivery Fraction of Inspired Oxygen 03/05/24 04:59 03/05/24 02:00 03/05/24 04:00 Temperature 36.6 C 36.5 C Pulse Rate 105 H 62 76 Respiratory Rate 20 20 20 Blood Pressure 145/66 H 139/60 Pulse Oximetry 100 100 Oxygen Delivery Fraction of Inspired Oxygen 03/05/24 02:00 03/05/24 04:00 03/05/24 06:00 Temperature Pulse Rate 62 92 Respiratory Rate Blood Pressure Pulse Oximetry Oxygen Delivery Fraction of Inspired Oxygen 40 03/05/24 06:00 03/05/24 06:00 03/05/24 06:00 Temperature 36.5 C Pulse Rate 92 84 92 Respiratory Rate 20 20 20 Blood Pressure 148/81 H 148/81 H Pulse Oximetry 100 Oxygen Delivery Fraction of Inspired Oxygen 03/05/24 06:00 03/05/24 04:52 03/05/24 04:00 Temperature Pulse Rate 82 94 Respiratory Rate 20 Blood Pressure Pulse Oximetry 99 100 Oxygen Delivery Mechanical Ventilation Mechanical Ventilation Fraction of Inspired Oxygen 40 03/05/24 04:00 03/05/24 07:46 03/05/24 07:46 Temperature Pulse Rate 75 95 95 Respiratory Rate 18 Blood Pressure Pulse Oximetry 100 Oxygen Delivery Mechanical Ventilation Fraction of Inspired Oxygen 40 Intake/Output Intake/Output: Intake & Output 03/02/24 03/03/24 03/04/24 03/05/24 23:59 23:59 23:59 23:59 Intake Total 3016.0 2079.4 2613.8 941.6 Output Total 500 1355 2150 1250 Balance 2516.0 724.4 463.8 -308.4 Meds/Results Medications: Active Medications Generic Name Dose Route Start Last Admin Trade Name Freq PRN Reason Stop Dose Admin Acetaminophen 500 mg 02/28/24 19:15 Acetaminophen 500 Mg Tablet PO Q6H PRN Pain Rated 1-3 Albuterol/Ipratropium 3 ml 02/29/24 02:00 03/05/24 07:46 Ipratropium 0.5 Mg/Albuterol Sulfate 2.5 Mg Ampul.Neb 3 Ml INHALATION 3 ml Q6HRT JASON Administration Aspirin 81 mg 03/01/24 08:00 03/04/24 08:05 Aspirin 81 Mg Chewable Tablet PO 81 mg DAILY@0800 JASON Administration Atorvastatin Calcium 80 mg 03/01/24 09:00 03/04/24 08:05 Atorvastatin 40 Mg Tablet PO 80 mg DAILY JASON Administration Dextrose 12.5 gm 02/28/24 19:23 Dextrose 50% 25 Gm/50 Ml Syringe IV PUSH PRN PRN Hypoglycemia Protocol Furosemide 80 mg 03/05/24 09:00 Furosemide Inj 100 Mg/10 Ml Vial IV PUSH 03/05/24 17:01 BID JASON Glucagon 1 mg 02/28/24 19:23 Glucagon For Inj 1 Mg Vial IM PRN PRN Hypoglycemia Protocol Glucose 15 gm 02/28/24 19:23 Glucose Oral Gel 15 Gm Of Glucse In 37.5 Gm Tube PO PRN PRN Hypoglycemia Protocol Heparin Sodium (Porcine) 5,000 units 03/03/24 14:00 03/05/24 05:01 Heparin Sodium 5,000 Units/Ml Vial SUB-Q 5,000 units Q8HR JASON Administration Hydralazine HCl 10 mg 03/03/24 15:19 Hydralazine Hcl 20 Mg/Ml Vial IV PUSH Q4HR PRN Hypertension Dextrose 1,000 mls @ 100 mls/hr 02/28/24 19:23 Dextrose 5% 1,000 Ml IVPB PRN PRN Hypoglycemia Protocol Fentanyl Citrate 2,500 mcg in 250 mls @ 15 mls/hr 02/28/24 21:20 03/05/24 06:00 Fentanyl 2,500 Mcg/Ns 250 Ml IV CONT 150 mcg/hr .[id number] JASON 15 mls/hr Titration Protocol 150 MCG/HR Midazolam HCl 100 mg in 100 mls @ 5 mls/hr 02/28/24 21:20 03/05/24 06:00 Versed 100 Mg/Ns 100 Ml IV CONT 6 mg/hr .Q20H JASON 6 mls/hr Titration Protocol 5 MG/HR Meropenem 1 gm in 100 mls @ 200 mls/hr 02/28/24 22:00 03/05/24 06:25 IVPB Infused Q8H JASON Infusion Vancomycin HCl 1,500 mg in 500 mls @ 250 mls/hr 03/03/24 22:00 03/04/24 23:22 Vancomycin 1,500 Mg/Ns 500 Ml IVPB Infused Q24H JASON Infusion Insulin Aspart 3 - 6 units 03/01/24 00:00 03/05/24 05:13 Insulin Aspart (*Bkc) 100 Units/Ml SUB-Q 3 units Q6H JASON Administration Protocol Insulin Glargine 40 units 03/05/24 09:00 Insulin Glargine (*Bkc) 100 Units/Ml SUB-Q DAILY JASON Metoclopramide HCl 10 mg 03/04/24 08:00 03/05/24 05:01 Metoclopramide Hcl 10 Mg/10 Ml Soln Udc FEED TUBE 10 mg Q6HR JASON Administration Midodrine 10 mg 03/02/24 09:00 03/04/24 17:09 Midodrine Hcl 10 Mg Tablet PO 10 mg TID JASON Administration Multi-Ingred Cream/Lotion/Oil/Oint 1 applic 02/29/24 09:00 03/04/24 20:56 Mineral Oil/White Petrolatum Ointment EACH EYE 1 applic Q12HR JASON Administration Naloxone HCl 0.1 mg 02/28/24 19:15 Naloxone Hcl 0.4 Mg/Ml Vial IV PUSH Q2M PRN Opiate Reversal Pantoprazole Sodium 40 mg 03/02/24 09:00 03/04/24 20:56 Pantoprazole Sodium Iv 40 Mg Vial IV PUSH 40 mg Q12HR JASON Administration Sodium Chloride 10 ml 02/29/24 06:00 03/05/24 05:01 Central Line Flush IV PUSH 10 ml Q8HR JASON Administration Sodium Chloride 20 ml 02/28/24 23:37 Central Line Flush IV PUSH PRN PRN after blood draws Radiology Results: ITS Impressions Lower Extremity CTA 02/28/24 14:54 IMPRESSION: 1. 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 2. Moderate stenosis of right popliteal artery. 3. Osteomyelitis involving first proximal and distal phalanges and head of first metatarsal. Head CT 02/29/24 05:55 Impression: No intracranial hemorrhage, mass, or acute infarct. Stable chronic encephalomalacia in the high left parietal lobe. Atrophy and chronic white matter changes, as above. Chest/Abdomen/Pelvis CTA 02/29/24 06:02 Impression: Extensive right upper lobe consolidation and more mild right middle lobe consolidation, consistent with pneumonia. Consider aspiration pneumonia. Moderate to large right pleural effusion with complete atelectasis of the right lower lobe. Moderate left pleural effusion with minimal left basilar atelectasis. Small pericardial effusion. No definite acute abnormality in the abdomen or pelvis. Chronic compression fractures, as above. Renal Ultrasound 03/03/24 15:45 IMPRESSION: 1. Normal kidneys without hydronephrosis. 2. Small amount of ascites in the abdomen and pelvis. Chest X-Ray 03/05/24 06:07 IMPRESSION: 1. Stable airspace opacities in right lung and left mid and lower lung zones, consistent with pneumonia. 2. Stable small right pleural effusion. Labs Labs: Laboratory Results - last 24 hr 03/04/24 03/04/24 03/04/24 11:54 15:34 17:06 WBC RBC Hgb Hct MCV MCH MCHC RDW Plt Count MPV Immature Gran % (Auto) Neut % (Auto) Lymph % (Auto) [place] % (Auto) Eos % (Auto) Baso % (Auto) Lymph # (Auto) [place] # (Auto) Eos # (Auto) Baso # (Auto) Abs Immat Gran (auto) Absolute Neuts (auto) Absolute Nucleated RBC Nucleated RBC % PT INR Puncture Site ABG pH ABG pCO2 ABG pO2 ABG PO2/FiO2 Ratio ABG HCO3 ABG O2 Saturation ABG O2 Content ABG Base Excess A-a Gradient Oxyhemoglobin Carboxyhemoglobin Methemoglobin Reduced Hemoglobin Total Hemoglobin O2 Delivery Device O2 Liters/Min Minute Volume Vent Rate Vent Mode FiO2 Tidal Volume PEEP Peak Inspir Pressure Pressure Support Sodium 139 Potassium 4.2 Chloride 108 H Carbon Dioxide 24 Anion Gap 7 BUN 52 H Creatinine 1.10 Estim Creat Clear Calc 68 Estimated GFR > 60 Glucose 269 H POC Capillary Glucose 243 H 272 H Lactic Acid Calcium 8.0 L Magnesium Total Bilirubin AST ALT Alkaline Phosphatase Total Protein Albumin 03/04/24 03/05/24 03/05/24 23:04 04:44 04:53 WBC 18.1 H RBC 3.31 L Hgb 9.1 L Hct 28.2 L MCV 85.2 MCH 27.5 MCHC 32.3 RDW 15.6 H Plt Count 456 H MPV 9.4 Immature Gran % (Auto) 1.6 H Neut % (Auto) 85.3 H Lymph % (Auto) 6.1 L [place] % (Auto) 6.6 Eos % (Auto) 0.1 Baso % (Auto) 0.3 Lymph # (Auto) 1.10 [place] # (Auto) 1.2 H Eos # (Auto) 0.0 Baso # (Auto) 0.1 Abs Immat Gran (auto) 0.29 H Absolute Neuts (auto) 15.5 H Absolute Nucleated RBC 0.000 Nucleated RBC % 0.0 PT 18.5 H INR 1.5 Puncture Site Artline ABG pH 7.493 H ABG pCO2 33.7 L ABG pO2 100.2 H ABG PO2/FiO2 Ratio 2.50 ABG HCO3 25.3 ABG O2 Saturation 98.0 ABG O2 Content 14.3 L ABG Base Excess 2.2 A-a Gradient 146.2 Oxyhemoglobin 96.7 Carboxyhemoglobin 1.0 Methemoglobin 0.3 Reduced Hemoglobin 2.0 Total Hemoglobin 10.4 L O2 Delivery Device Ventilator O2 Liters/Min Not Reportable Minute Volume Not Reportable Vent Rate 20 Vent Mode Cmv FiO2 40 Tidal Volume 410 PEEP 12 Peak Inspir Pressure Not Reportable Pressure Support Not Reportable Sodium 140 Potassium 4.5 Chloride 109 H Carbon Dioxide 25 Anion Gap 6 BUN 58 H Creatinine 1.00 Estim Creat Clear Calc 75 Estimated GFR > 60 Glucose 283 H POC Capillary Glucose 213 H Lactic Acid 1.0 Calcium 8.0 L Magnesium 2.9 H Total Bilirubin 0.4 AST 56 ALT 51 H Alkaline Phosphatase 93 Total Protein 6.0 L Albumin 2.8 L 03/05/24 05:12 WBC RBC Hgb Hct MCV MCH MCHC RDW Plt Count MPV Immature Gran % (Auto) Neut % (Auto) Lymph % (Auto) [place] % (Auto) Eos % (Auto) Baso % (Auto) Lymph # (Auto) [place] # (Auto) Eos # (Auto) Baso # (Auto) Abs Immat Gran (auto) Absolute Neuts (auto) Absolute Nucleated RBC Nucleated RBC % PT INR Puncture Site ABG pH ABG pCO2 ABG pO2 ABG PO2/FiO2 Ratio ABG HCO3 ABG O2 Saturation ABG O2 Content ABG Base Excess A-a Gradient Oxyhemoglobin Carboxyhemoglobin Methemoglobin Reduced Hemoglobin Total Hemoglobin O2 Delivery Device O2 Liters/Min Minute Volume Vent Rate Vent Mode FiO2 Tidal Volume PEEP Peak Inspir Pressure Pressure Support Sodium Potassium Chloride Carbon Dioxide Anion Gap BUN Creatinine Estim Creat Clear Calc Estimated GFR Glucose POC Capillary Glucose 250 H Lactic Acid Calcium Magnesium Total Bilirubin AST ALT Alkaline Phosphatase Total Protein Albumin Quality VTE Prophylaxis VTE prophylaxis: pharmacologic ordered
[2024-03-05] MEDS: MIDODRINE HCL 10 MG TABLET PO (08:25)
[2024-03-05] MEDS: ASPIRIN 81 MG CHEWABLE TABLET PO (08:25)
[2024-03-05] MEDS: PANTOPRAZOLE SODIUM IV 40 MG VIAL IV PUSH ×2 (08:25→20:43)
[2024-03-05] MEDS: FUROSEMIDE INJ 100 MG/10 ML VIAL 80 MG IV PUSH (08:25)
[2024-03-05] MEDS: ATORVASTATIN 40 MG TABLET 80 MG PO (08:25)
[2024-03-05] MEDS: INSULIN GLARGINE (*BKC) 100 UNITS/ML 40 UNITS SUB-Q (08:26)
[2024-03-05] MEDS: MINERAL OIL/WHITE PETROLATUM OINTMENT 1 APPLIC EACH EYE ×2 (08:26→20:49)
--- NOTE | 2024-03-05 10:00 | P.PNCA_ITS ---
Progress Note: A&P Assessment and Plan (1) Cardiac arrest: Code(s): I46.9 - Cardiac arrest, cause unspecified Status: Acute Assessment and Plan: Likely related to aspiration and subsequent pulseless electrical activity arrest. Off pressors at this point. Will reduce his midodrine to 5 mg p.o. t.i.d. as he is now hypertensive and possibly discontinue midodrine completely once extubated. He is planning going for right BKA today. (2) NSTEMI (non-ST elevated myocardial infarction): Code(s): I21.4 - Non-ST elevation (NSTEMI) myocardial infarction Status: Acute Assessment and Plan: Type 2 infarction. (3) Osteomyelitis of toe of right foot: Code(s): M86.9 - Osteomyelitis, unspecified Status: Chronic Assessment and Plan: BKA today Plan Clinically unchanged. Patient with type 2 myocardial infarction because of cardiac arrest likely triggered by aspiration. BKA right leg later today Subjective Date/time seen: 03/05/24 10:00 Interval history: Follow-up visit in this 68-year-old man with: Episode of PE a arrest working diagnosis is aspiration event resulting in arrest and type 2 myocardial infarction. Patient has known history of coronary artery disease with emergency RCA intervention being performed in 2020 in the setting of acute ST-elevation DE. patient did have significant stenosis in a couple of marginal branches of the circumflex artery according to the chart at that time. He was not compliant with follow-up of his coronary disease in the office has had not been seen since that intervention. Patient is now intubated in the ICU sedated and of course unresponsive. Patient was admitted to the hospital because of significant peripheral vascular disease resulting in gangrene of the right foot and was anticipating and was scheduled for [id number] amputation prior to experiencing the above-described arrest 03/02/2024: Clinically unchanged, pressors are being weaned. Intubated /unresponsive sedated Date of service 03/03/2024: Still intubated, sedated, unresponsive. Date of service 03/05/2024: Plan for or today for right BKA. Off paralytics. Blood pressure is high. Off of pressors. Review of Systems Review of Systems: ROS unobtainable: Yes unobtainable due to endotracheal tube and unobtainable due to medical condition Exam Const: Other: Unkempt white male appearing considerably older than his stated age intubated sedated on mechanical ventilator support HENMT: Mouth: Yes moist mucous membranes Other: OETT in place Eyes: Sclera: sclerae normal Neck: Neck: supple and no JVD Resp: Other: Breath sounds are relatively clear with anterior auscultation with patient on the ventilator Cardio: Rate: regular rate Rhythm: regular rhythm Heart sounds: no murmurs Other: No apparent murmur or gallop Urinary Catheter: Urinary Catheter: patent and draining Skin: General skin exam: normal color Neuro: Other: Sedated on the ventilator Extrem: Other: Right foot is wrapped in gauze not on wrapped for examination, no peripheral edema Objective Data Vital Signs Vital Signs: Vital Signs - 24 hr 03/04/24 10:05 03/04/24 10:05 03/04/24 10:05 Temperature Pulse Rate 60 60 62 Respiratory Rate 20 20 20 Blood Pressure 126/54 L Pulse Oximetry Oxygen Delivery Fraction of Inspired Oxygen 03/04/24 10:33 03/04/24 10:46 03/04/24 11:02 Temperature Pulse Rate 58 L 63 65 Respiratory Rate 20 20 20 Blood Pressure 129/57 L 132/58 L 127/57 L Pulse Oximetry Oxygen Delivery Fraction of Inspired Oxygen 03/04/24 11:15 03/04/24 11:35 03/04/24 11:43 Temperature Pulse Rate 63 63 60 Respiratory Rate 20 20 20 Blood Pressure 130/57 L 128/56 L 124/54 L Pulse Oximetry Oxygen Delivery Fraction of Inspired Oxygen 03/04/24 12:00 03/04/24 12:02 03/04/24 12:00 Temperature Pulse Rate 66 66 66 Respiratory Rate 20 20 20 Blood Pressure 122/53 L Pulse Oximetry Oxygen Delivery Fraction of Inspired Oxygen 03/04/24 12:00 03/04/24 12:00 03/04/24 12:15 Temperature Pulse Rate 85 Respiratory Rate 20 Blood Pressure 135/64 Pulse Oximetry 100 Oxygen Delivery Mechanical Ventilation Fraction of Inspired Oxygen 40 40 03/04/24 12:28 03/04/24 12:00 03/04/24 12:00 Temperature 36.2 C L Pulse Rate 88 67 85 Respiratory Rate 22 H 21 H Blood Pressure 131/58 L 138/62 Pulse Oximetry 100 Oxygen Delivery Fraction of Inspired Oxygen 03/04/24 12:45 03/04/24 12:55 03/04/24 10:40 Temperature Pulse Rate 89 85 78 Respiratory Rate 22 H 20 Blood Pressure 139/62 139/62 Pulse Oximetry 100 Oxygen Delivery Mechanical Ventilation Fraction of Inspired Oxygen 50 03/04/24 13:43 03/04/24 13:43 03/04/24 13:49 Temperature Pulse Rate 67 67 79 Respiratory Rate 20 20 Blood Pressure Pulse Oximetry 100 Oxygen Delivery Mechanical Ventilation Fraction of Inspired Oxygen 40 03/04/24 14:02 03/04/24 13:30 03/04/24 14:02 Temperature Pulse Rate 105 H 68 105 H Respiratory Rate 20 20 20 Blood Pressure 114/49 L 135/70 Pulse Oximetry Oxygen Delivery Fraction of Inspired Oxygen 03/04/24 14:02 03/04/24 14:23 03/04/24 14:00 Temperature Pulse Rate 105 H 90 105 H Respiratory Rate 20 22 H Blood Pressure Pulse Oximetry Oxygen Delivery Fraction of Inspired Oxygen 03/04/24 14:00 03/04/24 14:47 03/04/24 15:00 Temperature 36.3 C L Pulse Rate 105 H 77 72 Respiratory Rate 20 20 20 Blood Pressure 130/70 134/57 L 121/51 L Pulse Oximetry 90 Oxygen Delivery Fraction of Inspired Oxygen 03/04/24 15:35 03/04/24 16:00 03/04/24 16:00 Temperature Pulse Rate 62 60 Respiratory Rate 20 Blood Pressure 119/50 L Pulse Oximetry Oxygen Delivery Fraction of Inspired Oxygen 40 03/04/24 16:03 03/04/24 16:03 03/04/24 16:03 Temperature Pulse Rate 60 60 60 Respiratory Rate 20 20 20 Blood Pressure 128/54 L Pulse Oximetry Oxygen Delivery Fraction of Inspired Oxygen 03/04/24 16:00 03/04/24 16:34 03/04/24 16:32 Temperature 36.3 C L Pulse Rate 60 65 60 Respiratory Rate 20 20 Blood Pressure 115/57 L 122/52 L Pulse Oximetry 98 99 Oxygen Delivery Mechanical Ventilation Fraction of Inspired Oxygen 40 03/04/24 17:00 03/04/24 16:00 03/04/24 17:33 Temperature Pulse Rate 60 99 Respiratory Rate 20 20 Blood Pressure 119/51 L 136/61 Pulse Oximetry 100 Oxygen Delivery Mechanical Ventilation Fraction of Inspired Oxygen 40 03/04/24 18:00 03/04/24 18:08 03/04/24 18:07 Temperature Pulse Rate 80 80 80 Respiratory Rate 20 20 Blood Pressure 133/54 L Pulse Oximetry Oxygen Delivery Fraction of Inspired Oxygen 03/04/24 18:08 03/04/24 18:00 03/04/24 19:35 Temperature 36.4 C Pulse Rate 80 84 69 Respiratory Rate 20 20 20 Blood Pressure 140/58 L Pulse Oximetry 98 Oxygen Delivery Fraction of Inspired Oxygen 03/04/24 19:36 03/04/24 19:58 03/04/24 20:00 Temperature 36.7 C Pulse Rate 85 75 78 Respiratory Rate 20 21 H Blood Pressure 126/50 L Pulse Oximetry 99 99 Oxygen Delivery Mechanical Ventilation Fraction of Inspired Oxygen 40 03/04/24 20:00 03/04/24 20:00 03/04/24 20:00 Temperature Pulse Rate 78 78 78 Respiratory Rate 21 H 21 H Blood Pressure 126/50 L Pulse Oximetry Oxygen Delivery Fraction of Inspired Oxygen 03/04/24 20:00 03/04/24 20:00 03/04/24 20:39 Temperature Pulse Rate 78 74 Respiratory Rate 21 H 21 H Blood Pressure 119/48 L Pulse Oximetry Oxygen Delivery Fraction of Inspired Oxygen 40 03/04/24 20:54 03/04/24 20:00 03/04/24 22:00 Temperature Pulse Rate 75 72 Respiratory Rate 20 Blood Pressure 129/53 L Pulse Oximetry 99 Oxygen Delivery Mechanical Ventilation Fraction of Inspired Oxygen 40 03/04/24 22:00 03/04/24 22:00 03/04/24 22:00 Temperature 36.6 C Pulse Rate 72 72 72 Respiratory Rate 20 20 20 Blood Pressure 162/91 H 162/91 H Pulse Oximetry 98 Oxygen Delivery Fraction of Inspired Oxygen 03/04/24 22:00 03/04/24 22:17 03/04/24 23:00 Temperature Pulse Rate 72 70 71 Respiratory Rate 20 20 Blood Pressure 136/60 Pulse Oximetry 99 Oxygen Delivery Mechanical Ventilation Fraction of Inspired Oxygen 40 03/04/24 23:00 03/04/24 22:47 03/04/24 22:47 Temperature Pulse Rate 71 81 81 Respiratory Rate 20 20 20 Blood Pressure 136/60 Pulse Oximetry Oxygen Delivery Fraction of Inspired Oxygen 03/04/24 22:48 03/04/24 23:21 03/04/24 23:52 Temperature Pulse Rate 81 81 Respiratory Rate 20 20 Blood Pressure Pulse Oximetry 98 Oxygen Delivery Mechanical Ventilation Fraction of Inspired Oxygen 40 03/05/24 00:00 03/05/24 00:00 03/05/24 00:00 Temperature 36.6 C Pulse Rate 81 81 Respiratory Rate 20 20 Blood Pressure 153/71 H Pulse Oximetry 98 Oxygen Delivery Fraction of Inspired Oxygen 40 03/05/24 00:00 03/05/24 02:05 03/05/24 02:00 Temperature Pulse Rate 81 62 62 Respiratory Rate 20 Blood Pressure Pulse Oximetry 100 Oxygen Delivery Mechanical Ventilation Fraction of Inspired Oxygen 40 03/05/24 02:15 03/05/24 02:00 03/05/24 04:00 Temperature Pulse Rate 66 62 76 Respiratory Rate 20 20 20 Blood Pressure Pulse Oximetry Oxygen Delivery Fraction of Inspired Oxygen 03/05/24 00:00 03/05/24 02:00 03/05/24 04:00 Temperature Pulse Rate 85 62 87 Respiratory Rate 20 20 20 Blood Pressure 156/73 H 145/66 H 139/63 Pulse Oximetry Oxygen Delivery Fraction of Inspired Oxygen 03/05/24 04:55 03/05/24 00:00 03/05/24 02:00 Temperature Pulse Rate 94 85 62 Respiratory Rate 20 20 20 Blood Pressure 160/78 H Pulse Oximetry Oxygen Delivery Fraction of Inspired Oxygen 03/05/24 04:00 03/05/24 04:59 03/05/24 02:00 Temperature 36.6 C Pulse Rate 76 105 H 62 Respiratory Rate 20 20 20 Blood Pressure 145/66 H Pulse Oximetry 100 Oxygen Delivery Fraction of Inspired Oxygen 03/05/24 04:00 03/05/24 02:00 03/05/24 04:00 Temperature 36.5 C Pulse Rate 76 62 Respiratory Rate 20 Blood Pressure 139/60 Pulse Oximetry 100 Oxygen Delivery Fraction of Inspired Oxygen 40 03/05/24 06:00 03/05/24 06:00 03/05/24 06:00 Temperature 36.5 C Pulse Rate 92 92 84 Respiratory Rate 20 20 Blood Pressure 148/81 H Pulse Oximetry 100 Oxygen Delivery Fraction of Inspired Oxygen 03/05/24 06:00 03/05/24 06:00 03/05/24 04:52 Temperature Pulse Rate 92 82 94 Respiratory Rate 20 20 Blood Pressure 148/81 H Pulse Oximetry 99 Oxygen Delivery Mechanical Ventilation Fraction of Inspired Oxygen 40 03/05/24 04:00 03/05/24 04:00 03/05/24 07:46 Temperature Pulse Rate 75 95 Respiratory Rate Blood Pressure Pulse Oximetry 100 100 Oxygen Delivery Mechanical Ventilation Mechanical Ventilation Fraction of Inspired Oxygen 40 03/05/24 07:46 03/05/24 08:04 03/05/24 08:00 Temperature 36.2 C L Pulse Rate 95 94 118 H Respiratory Rate 18 18 21 H Blood Pressure 146/80 H Pulse Oximetry 95 Oxygen Delivery Fraction of Inspired Oxygen 03/05/24 08:00 03/05/24 08:00 03/05/24 08:00 Temperature Pulse Rate 109 H 109 H 109 H Respiratory Rate 18 18 18 Blood Pressure 154/80 H Pulse Oximetry Oxygen Delivery Fraction of Inspired Oxygen 03/05/24 08:00 03/05/24 08:00 03/05/24 08:36 Temperature Pulse Rate Respiratory Rate Blood Pressure Pulse Oximetry 97 98 Oxygen Delivery Mechanical Ventilation Mechanical Ventilation Fraction of Inspired Oxygen 40 40 30 03/05/24 08:00 Temperature Pulse Rate 91 Respiratory Rate Blood Pressure Pulse Oximetry Oxygen Delivery Fraction of Inspired Oxygen Intake/Output Intake/Output: Intake & Output 03/02/24 03/03/24 03/04/24 03/05/24 23:59 23:59 23:59 23:59 Intake Total 3016.0 2079.4 2613.8 983.6 Output Total 500 1355 2150 1250 Balance 2516.0 724.4 463.8 -266.4 Meds/Results Medications: Active Medications Generic Name Dose Route Start Last Admin Trade Name Freq PRN Reason Stop Dose Admin Acetaminophen 500 mg 02/28/24 19:15 Acetaminophen 500 Mg Tablet PO Q6H PRN Pain Rated 1-3 Albuterol/Ipratropium 3 ml 02/29/24 02:00 03/05/24 07:46 Ipratropium 0.5 Mg/Albuterol Sulfate 2.5 Mg Ampul.Neb 3 Ml INHALATION 3 ml Q6HRT JASON Administration Aspirin 81 mg 03/01/24 08:00 03/05/24 08:25 Aspirin 81 Mg Chewable Tablet PO 81 mg DAILY@0800 JASON Administration Atorvastatin Calcium 80 mg 03/01/24 09:00 03/05/24 08:25 Atorvastatin 40 Mg Tablet PO 80 mg DAILY JASON Administration Dextrose 12.5 gm 02/28/24 19:23 Dextrose 50% 25 Gm/50 Ml Syringe IV PUSH PRN PRN Hypoglycemia Protocol Furosemide 80 mg 03/05/24 09:00 03/05/24 08:25 Furosemide Inj 100 Mg/10 Ml Vial IV PUSH 03/05/24 17:01 80 mg BID JASON Administration Glucagon 1 mg 02/28/24 19:23 Glucagon For Inj 1 Mg Vial IM PRN PRN Hypoglycemia Protocol Glucose 15 gm 02/28/24 19:23 Glucose Oral Gel 15 Gm Of Glucse In 37.5 Gm Tube PO PRN PRN Hypoglycemia Protocol Heparin Sodium (Porcine) 5,000 units 03/03/24 14:00 03/05/24 05:01 Heparin Sodium 5,000 Units/Ml Vial SUB-Q 5,000 units Q8HR JASON Administration Hydralazine HCl 10 mg 03/03/24 15:19 Hydralazine Hcl 20 Mg/Ml Vial IV PUSH Q4HR PRN Hypertension Dextrose 1,000 mls @ 100 mls/hr 02/28/24 19:23 Dextrose 5% 1,000 Ml IVPB PRN PRN Hypoglycemia Protocol Fentanyl Citrate 2,500 mcg in 250 mls @ 15 mls/hr 02/28/24 21:20 03/05/24 08:00 Fentanyl 2,500 Mcg/Ns 250 Ml IV CONT 150 mcg/hr .[id number] JASON 15 mls/hr Titration Protocol 150 MCG/HR Midazolam HCl 100 mg in 100 mls @ 5 mls/hr 02/28/24 21:20 03/05/24 08:00 Versed 100 Mg/Ns 100 Ml IV CONT 6 mg/hr .Q20H JASON 6 mls/hr Titration Protocol 5 MG/HR Meropenem 1 gm in 100 mls @ 200 mls/hr 02/28/24 22:00 03/05/24 06:25 IVPB Infused Q8H JASON Infusion Vancomycin HCl 1,500 mg in 500 mls @ 250 mls/hr 03/03/24 22:00 03/04/24 23:22 Vancomycin 1,500 Mg/Ns 500 Ml IVPB Infused Q24H JASON Infusion Insulin Aspart 3 - 6 units 03/01/24 00:00 03/05/24 05:13 Insulin Aspart (*Bkc) 100 Units/Ml SUB-Q 3 units Q6H JASON Administration Protocol Insulin Glargine 40 units 03/05/24 09:00 03/05/24 08:26 Insulin Glargine (*Bkc) 100 Units/Ml SUB-Q 40 units DAILY JASON Administration Metoclopramide HCl 10 mg 03/04/24 08:00 03/05/24 05:01 Metoclopramide Hcl 10 Mg/10 Ml Soln Udc FEED TUBE 10 mg Q6HR JASON Administration Midodrine 10 mg 03/02/24 09:00 03/05/24 08:25 Midodrine Hcl 10 Mg Tablet PO 10 mg TID JASON Administration Multi-Ingred Cream/Lotion/Oil/Oint 1 applic 02/29/24 09:00 03/05/24 08:26 Mineral Oil/White Petrolatum Ointment EACH EYE 1 applic Q12HR JASON Administration Naloxone HCl 0.1 mg 02/28/24 19:15 Naloxone Hcl 0.4 Mg/Ml Vial IV PUSH Q2M PRN Opiate Reversal Pantoprazole Sodium 40 mg 03/02/24 09:00 03/05/24 08:25 Pantoprazole Sodium Iv 40 Mg Vial IV PUSH 40 mg Q12HR JASON Administration Sodium Chloride 10 ml 02/29/24 06:00 03/05/24 05:01 Central Line Flush IV PUSH 10 ml Q8HR JASON Administration Sodium Chloride 20 ml 02/28/24 23:37 Central Line Flush IV PUSH PRN PRN after blood draws Radiology Results: ITS Impressions Lower Extremity CTA 02/28/24 14:54 IMPRESSION: 1. 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 2. Moderate stenosis of right popliteal artery. 3. Osteomyelitis involving first proximal and distal phalanges and head of first metatarsal. Head CT 02/29/24 05:55 Impression: No intracranial hemorrhage, mass, or acute infarct. Stable chronic encephalomalacia in the high left parietal lobe. Atrophy and chronic white matter changes, as above. Chest/Abdomen/Pelvis CTA 02/29/24 06:02 Impression: Extensive right upper lobe consolidation and more mild right middle lobe consolidation, consistent with pneumonia. Consider aspiration pneumonia. Moderate to large right pleural effusion with complete atelectasis of the right lower lobe. Moderate left pleural effusion with minimal left basilar atelectasis. Small pericardial effusion. No definite acute abnormality in the abdomen or pelvis. Chronic compression fractures, as above. Renal Ultrasound 03/03/24 15:45 IMPRESSION: 1. Normal kidneys without hydronephrosis. 2. Small amount of ascites in the abdomen and pelvis. Chest X-Ray 03/05/24 06:07 IMPRESSION: 1. Stable airspace opacities in right lung and left mid and lower lung zones, consistent with pneumonia. 2. Stable small right pleural effusion. Labs Labs: Laboratory Results - last 24 hr 03/04/24 03/04/24 03/04/24 11:54 15:34 17:06 WBC RBC Hgb Hct MCV MCH MCHC RDW Plt Count MPV Immature Gran % (Auto) Neut % (Auto) Lymph % (Auto) [place] % (Auto) Eos % (Auto) Baso % (Auto) Lymph # (Auto) [place] # (Auto) Eos # (Auto) Baso # (Auto) Abs Immat Gran (auto) Absolute Neuts (auto) Absolute Nucleated RBC Nucleated RBC % PT INR Puncture Site ABG pH ABG pCO2 ABG pO2 ABG PO2/FiO2 Ratio ABG HCO3 ABG O2 Saturation ABG O2 Content ABG Base Excess A-a Gradient Oxyhemoglobin Carboxyhemoglobin Methemoglobin Reduced Hemoglobin Total Hemoglobin O2 Delivery Device O2 Liters/Min Minute Volume Vent Rate Vent Mode FiO2 Tidal Volume PEEP Peak Inspir Pressure Pressure Support Sodium 139 Potassium 4.2 Chloride 108 H Carbon Dioxide 24 Anion Gap 7 BUN 52 H Creatinine 1.10 Estim Creat Clear Calc 68 Estimated GFR > 60 Glucose 269 H POC Capillary Glucose 243 H 272 H Lactic Acid Calcium 8.0 L Magnesium Total Bilirubin AST ALT Alkaline Phosphatase Total Protein Albumin 03/04/24 03/05/24 03/05/24 23:04 04:44 04:53 WBC 18.1 H RBC 3.31 L Hgb 9.1 L Hct 28.2 L MCV 85.2 MCH 27.5 MCHC 32.3 RDW 15.6 H Plt Count 456 H MPV 9.4 Immature Gran % (Auto) 1.6 H Neut % (Auto) 85.3 H Lymph % (Auto) 6.1 L [place] % (Auto) 6.6 Eos % (Auto) 0.1 Baso % (Auto) 0.3 Lymph # (Auto) 1.10 [place] # (Auto) 1.2 H Eos # (Auto) 0.0 Baso # (Auto) 0.1 Abs Immat Gran (auto) 0.29 H Absolute Neuts (auto) 15.5 H Absolute Nucleated RBC 0.000 Nucleated RBC % 0.0 PT 18.5 H INR 1.5 Puncture Site Artline ABG pH 7.493 H ABG pCO2 33.7 L ABG pO2 100.2 H ABG PO2/FiO2 Ratio 2.50 ABG HCO3 25.3 ABG O2 Saturation 98.0 ABG O2 Content 14.3 L ABG Base Excess 2.2 A-a Gradient 146.2 Oxyhemoglobin 96.7 Carboxyhemoglobin 1.0 Methemoglobin 0.3 Reduced Hemoglobin 2.0 Total Hemoglobin 10.4 L O2 Delivery Device Ventilator O2 Liters/Min Not Reportable Minute Volume Not Reportable Vent Rate 20 Vent Mode Cmv FiO2 40 Tidal Volume 410 PEEP 12 Peak Inspir Pressure Not Reportable Pressure Support Not Reportable Sodium 140 Potassium 4.5 Chloride 109 H Carbon Dioxide 25 Anion Gap 6 BUN 58 H Creatinine 1.00 Estim Creat Clear Calc 75 Estimated GFR > 60 Glucose 283 H POC Capillary Glucose 213 H Lactic Acid 1.0 Calcium 8.0 L Magnesium 2.9 H Total Bilirubin 0.4 AST 56 ALT 51 H Alkaline Phosphatase 93 Total Protein 6.0 L Albumin 2.8 L 03/05/24 05:12 WBC RBC Hgb Hct MCV MCH MCHC RDW Plt Count MPV Immature Gran % (Auto) Neut % (Auto) Lymph % (Auto) [place] % (Auto) Eos % (Auto) Baso % (Auto) Lymph # (Auto) [place] # (Auto) Eos # (Auto) Baso # (Auto) Abs Immat Gran (auto) Absolute Neuts (auto) Absolute Nucleated RBC Nucleated RBC % PT INR Puncture Site ABG pH ABG pCO2 ABG pO2 ABG PO2/FiO2 Ratio ABG HCO3 ABG O2 Saturation ABG O2 Content ABG Base Excess A-a Gradient Oxyhemoglobin Carboxyhemoglobin Methemoglobin Reduced Hemoglobin Total Hemoglobin O2 Delivery Device O2 Liters/Min Minute Volume Vent Rate Vent Mode FiO2 Tidal Volume PEEP Peak Inspir Pressure Pressure Support Sodium Potassium Chloride Carbon Dioxide Anion Gap BUN Creatinine Estim Creat Clear Calc Estimated GFR Glucose POC Capillary Glucose 250 H Lactic Acid Calcium Magnesium Total Bilirubin AST ALT Alkaline Phosphatase Total Protein Albumin
--- NOTE | 2024-03-05 10:35 | PCFNICU ---
ICU Rounding Note: Pt current nutrition is NPO. Nutrition recommendation: after procedure recommend restarting tube feedings of Glucerna 1.2. Last recorded weight is 104 kg, stable Bowel Motility:+Bm reported 03/05 Labs Reviewed:Mg 2.9, Glu 283, BUN 58, Alb 2.8,Hct 28.2.Hgb 8.0 Meds Noted: Reglan, NovoLog, Lantus, Fentanyl Skin: Stage II pressure ulcer-Sacrum. Necrotic right foot Additional Notes: Patient remains on mechanical vent. Tube feedings are on hold at this time for BKA this afternoon. Plans to restart tube feedings after procedure of Glucerna 1.2, goal rate recommended at 60 ml/hr. Also continue Minh BID via flush for wound healing. Agree with diet orders. Following daily in ICU rounds. Will monitor weight, labs, skin, tube feedings, meds, every Sunday and Sunday.
[2024-03-05 12:08] LABS: Glucose Point of Care 233 mg/dl (65-105)
--- NOTE | 2024-03-05 12:21 | P.PNNP_ITS ---
Progress Note: A&P Assessment and Plan (1) GORDON (acute kidney injury): Code(s): N17.9 - Acute kidney failure, unspecified Status: Acute Assessment and Plan: * improvement noted * normal creatinine on admission * creatinine now up to 1.5mg/dl * multifactorial etiology: * hemodynamic instability/shock * sepsis/infection * cardiac arrest * NSTEMI * hypoxia * BP medications prior to admission including losartan * evaluation to date: * normal renal ultrasound * CPK low normal * urine eosinophils negative * urine electrolytes prerenal * continue IV diuretics given better hemodynamics and issues with volume overload * follow trend of repeal labs and UOP (2) Septic shock: Code(s): A41.9 - Sepsis, unspecified organism; R65.21 - Severe sepsis with septic shock Status: Acute Assessment and Plan: * presumably due to right foot gangrene possible aspiration pneumonia complicated by cardiac arrest * follow culture data * lactic acid has improved * weaned off vasopressor therapy * on midodrine * on antibiotics * follow trend of hemodynamics (3) Cardiac arrest: Code(s): I46.9 - Cardiac arrest, cause unspecified Status: Acute Assessment and Plan: * etiology not entirely clear: * aspiration pneumonia(?) * NSTEMI * hypoxia * septic fermin * sepsis/infection * continue supportive therapy (4) Acute respiratory failure with hypoxia: Code(s): J96.01 - Acute respiratory failure with hypoxia Status: Acute Assessment and Plan: * secondary to cardiac arrest, possible aspiration/aspiration pneumonia, NSTEMI, septic shock and hypoxia * intubated and on mechanical ventilator support * complicated by known history of COPD * weaning as tolerated * diuresis as tolerated based on CXR findings (5) NSTEMI (non-ST elevated myocardial infarction): Code(s): I21.4 - Non-ST elevation (NSTEMI) myocardial infarction Status: Acute Assessment and Plan: * as noted by trend of troponins * EKG results noted * Cardiology following * on ASA and high dose statin therapy * holding metoprolol + losaratn given previous hypotension * s/p 48 hours of heparin gtt (6) Gangrene of right foot: Code(s): I96 - Gangrene, not elsewhere classified Status: Acute Assessment and Plan: * as noted by clinical exam on admission * complicated by known history of PVD/PAD: * CTA showed peripheral arterial disease with total occlusion of the right anterior and posterior tibial arteries and right peroneal artery with distal reconstitution of peroneal artery. 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 Subjective Date/time seen: 03/05/24 12:21 Interval history: Follow-up for acute kidney injury/acute renal failure. Remains intubated/sedated and on mechanical ventilation; off vasopressor therapy with ongoing stability in hemodynamics (if not hypertensive at times); good urine output with IV diuretics with improvement in renal function/creatinine; noted plans for possible surgical intervention regarding right foot; no issues/events overnight or earlier this morning. Exam Narrative: General: WD/WN male intubated/sedated/paralyzed and on mechanical ventilation Heart: normal S1 and S2; no rub Lungs: coarse breath sound; decreased at bases Abdomen: soft, nontender, nondistended, decreased bowel sounds Extremities: no cyanosis or clubbing; + edema (right foot) Skin: right foot dressings present Objective Data Vital Signs Vital Signs: Vital Signs Temp Pulse Resp BP Pulse Ox O2 Del Method FiO2 03/05/24 12:00 98.2 F 71 16 129/55 L 99 Mechanical Ventilation 03/05/24 12:00 30 03/05/24 10:55 91 98 Mechanical Ventilation 30 03/05/24 10:00 97.9 F 90 19 132/81 99 03/05/24 10:00 96 03/05/24 10:00 96 18 03/05/24 10:00 96 18 03/05/24 08:00 91 03/05/24 08:36 98 Mechanical Ventilation 30 03/05/24 08:00 40 03/05/24 08:00 97 Mechanical Ventilation 40 03/05/24 08:00 109 H 18 154/80 H 03/05/24 08:00 109 H 18 03/05/24 08:00 109 H 18 03/05/24 08:00 97.1 F L 118 H 21 H 146/80 H 95 03/05/24 08:04 94 18 03/05/24 07:46 95 18 03/05/24 07:46 95 100 Mechanical Ventilation 40 03/05/24 04:00 75 03/05/24 04:00 100 Mechanical Ventilation 03/05/24 04:52 94 99 Mechanical Ventilation 40 03/05/24 06:00 82 20 03/05/24 06:00 92 20 148/81 H 03/05/24 06:00 84 20 03/05/24 06:00 97.7 F 92 20 148/81 H 100 03/05/24 06:00 92 03/05/24 04:00 40 03/05/24 02:00 62 03/05/24 04:00 97.7 F 76 20 139/60 100 03/05/24 02:00 97.9 F 62 20 145/66 H 100 03/05/24 04:59 105 H 20 03/05/24 04:00 76 20 03/05/24 02:00 62 20 03/05/24 00:00 85 20 03/05/24 04:55 94 20 160/78 H 03/05/24 04:00 87 20 139/63 03/05/24 02:00 62 20 145/66 H 03/05/24 00:00 85 20 156/73 H 03/05/24 04:00 76 20 03/05/24 02:00 62 20 03/05/24 02:15 66 20 03/05/24 02:00 62 20 03/05/24 02:05 62 100 Mechanical Ventilation 40 03/05/24 00:00 81 03/05/24 00:00 81 20 03/05/24 00:00 97.9 F 81 20 153/71 H 98 03/05/24 00:00 40 03/04/24 23:52 98 Mechanical Ventilation 40 03/04/24 23:21 81 20 03/04/24 22:48 81 20 03/04/24 22:47 81 20 03/04/24 22:47 81 20 03/04/24 23:00 71 20 136/60 03/04/24 23:00 71 20 136/60 03/04/24 22:17 70 99 Mechanical Ventilation 40 03/04/24 22:00 72 20 03/04/24 22:00 72 20 162/91 H 03/04/24 22:00 72 20 03/04/24 22:00 97.8 F 72 20 162/91 H 98 03/04/24 22:00 72 03/04/24 20:00 99 Mechanical Ventilation 40 03/04/24 20:54 75 20 129/53 L 03/04/24 20:39 74 21 H 119/48 L 03/04/24 20:00 40 03/04/24 20:00 78 21 H 03/04/24 20:00 78 21 H 126/50 L 03/04/24 20:00 78 21 H 03/04/24 20:00 78 03/04/24 20:00 98.0 F 78 21 H 126/50 L 99 03/04/24 19:58 75 20 03/04/24 19:36 85 99 Mechanical Ventilation 40 03/04/24 19:35 69 20 03/04/24 18:00 97.6 F 84 20 140/58 L 98 03/04/24 18:08 80 20 03/04/24 18:07 80 20 133/54 L 03/04/24 18:08 80 20 03/04/24 18:00 80 03/04/24 17:33 99 20 136/61 03/04/24 16:00 100 Mechanical Ventilation 40 03/04/24 17:00 60 20 119/51 L 03/04/24 16:32 60 20 122/52 L 03/04/24 16:34 65 99 Mechanical Ventilation 40 03/04/24 16:00 97.3 F L 60 20 115/57 L 98 03/04/24 16:03 60 20 03/04/24 16:03 60 20 128/54 L 03/04/24 16:03 60 20 03/04/24 16:00 60 03/04/24 16:00 40 03/04/24 15:35 62 20 119/50 L 03/04/24 15:00 72 20 121/51 L 03/04/24 14:47 77 20 134/57 L Intake/Output Intake/Output: Intake & Output 03/02/24 03/03/24 03/04/24 03/05/24 23:59 23:59 23:59 23:59 Intake Total 3016.0 2079.4 2613.8 1209.3 Output Total 500 1355 2150 2600 Balance 2516.0 724.4 463.8 -1390.7 Meds/Results Medications: Active Medications Generic Name Dose Route Start Last Admin Trade Name Freq PRN Reason Stop Dose Admin Acetaminophen 500 mg 02/28/24 19:15 Acetaminophen 500 Mg Tablet PO Q6H PRN Pain Rated 1-3 Albuterol/Ipratropium 3 ml 02/29/24 02:00 03/05/24 13:24 Ipratropium 0.5 Mg/Albuterol Sulfate 2.5 Mg Ampul.Neb 3 Ml INHALATION 3 ml Q6HRT JASON Administration Aspirin 81 mg 03/01/24 08:00 03/05/24 08:25 Aspirin 81 Mg Chewable Tablet PO 81 mg DAILY@0800 JASON Administration Atorvastatin Calcium 80 mg 03/01/24 09:00 03/05/24 08:25 Atorvastatin 40 Mg Tablet PO 80 mg DAILY JASON Administration Dextrose 12.5 gm 02/28/24 19:23 Dextrose 50% 25 Gm/50 Ml Syringe IV PUSH PRN PRN Hypoglycemia Protocol Furosemide 80 mg 03/05/24 09:00 03/05/24 08:25 Furosemide Inj 100 Mg/10 Ml Vial IV PUSH 03/05/24 17:01 80 mg BID JASON Administration Glucagon 1 mg 02/28/24 19:23 Glucagon For Inj 1 Mg Vial IM PRN PRN Hypoglycemia Protocol Glucose 15 gm 02/28/24 19:23 Glucose Oral Gel 15 Gm Of Glucse In 37.5 Gm Tube PO PRN PRN Hypoglycemia Protocol Heparin Sodium (Porcine) 5,000 units 03/03/24 14:00 03/05/24 05:01 Heparin Sodium 5,000 Units/Ml Vial SUB-Q 5,000 units Q8HR JASON Administration Hydralazine HCl 10 mg 03/03/24 15:19 Hydralazine Hcl 20 Mg/Ml Vial IV PUSH Q4HR PRN Hypertension Dextrose 1,000 mls @ 100 mls/hr 02/28/24 19:23 Dextrose 5% 1,000 Ml IVPB PRN PRN Hypoglycemia Protocol Fentanyl Citrate 2,500 mcg in 250 mls @ 15 mls/hr 02/28/24 21:20 03/05/24 14:15 Fentanyl 2,500 Mcg/Ns 250 Ml IV CONT 150 mcg/hr .[id number] JASON 15 mls/hr Administration Protocol 150 MCG/HR Midazolam HCl 100 mg in 100 mls @ 5 mls/hr 02/28/24 21:20 03/05/24 14:05 Versed 100 Mg/Ns 100 Ml IV CONT 6 mg/hr .Q20H JASON 6 mls/hr Administration Protocol 5 MG/HR Meropenem 1 gm in 100 mls @ 200 mls/hr 02/28/24 22:00 03/05/24 13:50 IVPB 200 mls/hr Q8H JASON Administration Vancomycin HCl 1,500 mg in 500 mls @ 250 mls/hr 03/03/24 22:00 03/04/24 23:22 Vancomycin 1,500 Mg/Ns 500 Ml IVPB Infused Q24H JASON Infusion Insulin Aspart 3 - 6 units 03/01/24 00:00 03/05/24 12:30 Insulin Aspart (*Bkc) 100 Units/Ml SUB-Q Not Given Q6H JASON Protocol Insulin Glargine 40 units 03/05/24 09:00 03/05/24 08:26 Insulin Glargine (*Bkc) 100 Units/Ml SUB-Q 40 units DAILY JASON Administration Metoclopramide HCl 10 mg 03/04/24 08:00 03/05/24 12:29 Metoclopramide Hcl 10 Mg/10 Ml Soln Udc FEED TUBE Not Given Q6HR JASON Midodrine 5 mg 03/05/24 13:00 03/05/24 12:29 Midodrine Hcl 2.5 Mg Tablet PO Not Given TID JASON Multi-Ingred Cream/Lotion/Oil/Oint 1 applic 02/29/24 09:00 03/05/24 08:26 Mineral Oil/White Petrolatum Ointment EACH EYE 1 applic Q12HR JASON Administration Naloxone HCl 0.1 mg 02/28/24 19:15 Naloxone Hcl 0.4 Mg/Ml Vial IV PUSH Q2M PRN Opiate Reversal Pantoprazole Sodium 40 mg 03/02/24 09:00 03/05/24 08:25 Pantoprazole Sodium Iv 40 Mg Vial IV PUSH 40 mg Q12HR JASON Administration Sodium Chloride 10 ml 02/29/24 06:00 03/05/24 14:16 Central Line Flush IV PUSH 10 ml Q8HR JASON Administration Sodium Chloride 20 ml 02/28/24 23:37 Central Line Flush IV PUSH PRN PRN after blood draws Radiology Results: ITS Impressions Lower Extremity CTA 02/28/24 14:54 IMPRESSION: 1. 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 2. Moderate stenosis of right popliteal artery. 3. Osteomyelitis involving first proximal and distal phalanges and head of first metatarsal. Head CT 02/29/24 05:55 Impression: No intracranial hemorrhage, mass, or acute infarct. Stable chronic encephalomalacia in the high left parietal lobe. Atrophy and chronic white matter changes, as above. Chest/Abdomen/Pelvis CTA 02/29/24 06:02 Impression: Extensive right upper lobe consolidation and more mild right middle lobe consolidation, consistent with pneumonia. Consider aspiration pneumonia. Moderate to large right pleural effusion with complete atelectasis of the right lower lobe. Moderate left pleural effusion with minimal left basilar atelectasis. Small pericardial effusion. No definite acute abnormality in the abdomen or pelvis. Chronic compression fractures, as above. Renal Ultrasound 03/03/24 15:45 IMPRESSION: 1. Normal kidneys without hydronephrosis. 2. Small amount of ascites in the abdomen and pelvis. Chest X-Ray 03/05/24 06:07 IMPRESSION: 1. Stable airspace opacities in right lung and left mid and lower lung zones, consistent with pneumonia. 2. Stable small right pleural effusion. Labs Labs: Laboratory Tests 03/05/24 04:53 03/05/24 04:53 Lactic Acid 1.0 Calcium 8.0 L Magnesium 2.9 H Total Bilirubin 0.4 AST 56 ALT 51 H Alkaline Phosphatase 93 Total Protein 6.0 L Albumin 2.8 L Microbiology 02/28/24 13:11 Blood Blood Culture - Final 02/28/24 13:11 Blood Blood Culture - Final
[2024-03-05] MEDS: MIDAZOLAM 100MG/NS 100ML(*CRX) 100 MG/100 ML BAG 6 MG IV CONT (14:05)
[2024-03-05] MEDS: FENTANYL 2,500MCG/NS250ML(*CRX 2,500 MCG/250 ML BAG 15 MCG IV CONT (14:15)
--- NOTE | 2024-03-05 14:20 | WPDHPUPDATE1 ---
History and Physical Update Update Date/Time: 03/05/24 14:20 History and Physical has been reviewed, including an updated exam of the patient. There are NO changes in the patient's condition. Risks, benefits, and alternatives have been discussed and questions answered. Patient agrees to proceed with procedure.
--- NOTE | 2024-03-05 14:20 | PM.PNGS ---
Progress Note: A&P Assessment and Plan (1) Gangrene of right foot: Code(s): I96 - Gangrene, not elsewhere classified Status: Acute Assessment and Plan: Discussed with Dr. Collins. Hard to determine how much of a role patient's gangrenous foot is playing in his continued septic condition. It seems that he is fairly stable and we will go ahead today with right below-knee amputation. Patient does not have anyone we can find for consent so he will be done under emergency consent. He did, however, give consent when we saw him in the emergency room and prior to his cardiac arrest and critical care condition. (2) Cellulitis of right foot: Code(s): L03.115 - Cellulitis of right lower limb Status: Acute (3) Acute respiratory failure with hypoxia: Code(s): J96.01 - Acute respiratory failure with hypoxia Status: Acute Assessment and Plan: Still on vent but stable or slightly improved from yesterday. Subjective Subjective Date/Time Seen: 03/05/24 14:20 Interval history: Remains intubated on mechanical ventilator with sedation. Peep is down to 10. He is not requiring any vasopressor agents Review of Systems Review of Systems: ROS unobtainable: Yes unobtainable due to medical condition Exam Extrem: Right lower extremity: lower leg (No change in condition, satisfactory for BKA) and foot (Bandaged) Objective Data Vital Signs Vital Signs: Vital Signs - 24 hr 03/04/24 14:23 03/04/24 14:47 03/04/24 15:00 Temperature Pulse Rate 90 77 72 Respiratory Rate 22 H 20 20 Blood Pressure 134/57 L 121/51 L Pulse Oximetry Oxygen Delivery Fraction of Inspired Oxygen 03/04/24 15:35 03/04/24 16:00 03/04/24 16:00 Temperature Pulse Rate 62 60 Respiratory Rate 20 Blood Pressure 119/50 L Pulse Oximetry Oxygen Delivery Fraction of Inspired Oxygen 40 03/04/24 16:03 03/04/24 16:03 03/04/24 16:03 Temperature Pulse Rate 60 60 60 Respiratory Rate 20 20 20 Blood Pressure 128/54 L Pulse Oximetry Oxygen Delivery Fraction of Inspired Oxygen 03/04/24 16:00 03/04/24 16:34 03/04/24 16:32 Temperature 36.3 C L Pulse Rate 60 65 60 Respiratory Rate 20 20 Blood Pressure 115/57 L 122/52 L Pulse Oximetry 98 99 Oxygen Delivery Mechanical Ventilation Fraction of Inspired Oxygen 40 03/04/24 17:00 03/04/24 16:00 03/04/24 17:33 Temperature Pulse Rate 60 99 Respiratory Rate 20 20 Blood Pressure 119/51 L 136/61 Pulse Oximetry 100 Oxygen Delivery Mechanical Ventilation Fraction of Inspired Oxygen 40 03/04/24 18:00 03/04/24 18:08 03/04/24 18:07 Temperature Pulse Rate 80 80 80 Respiratory Rate 20 20 Blood Pressure 133/54 L Pulse Oximetry Oxygen Delivery Fraction of Inspired Oxygen 03/04/24 18:08 03/04/24 18:00 03/04/24 19:35 Temperature 36.4 C Pulse Rate 80 84 69 Respiratory Rate 20 20 20 Blood Pressure 140/58 L Pulse Oximetry 98 Oxygen Delivery Fraction of Inspired Oxygen 03/04/24 19:36 03/04/24 19:58 03/04/24 20:00 Temperature 36.7 C Pulse Rate 85 75 78 Respiratory Rate 20 21 H Blood Pressure 126/50 L Pulse Oximetry 99 99 Oxygen Delivery Mechanical Ventilation Fraction of Inspired Oxygen 40 03/04/24 20:00 03/04/24 20:00 03/04/24 20:00 Temperature Pulse Rate 78 78 78 Respiratory Rate 21 H 21 H Blood Pressure 126/50 L Pulse Oximetry Oxygen Delivery Fraction of Inspired Oxygen 03/04/24 20:00 03/04/24 20:00 03/04/24 20:39 Temperature Pulse Rate 78 74 Respiratory Rate 21 H 21 H Blood Pressure 119/48 L Pulse Oximetry Oxygen Delivery Fraction of Inspired Oxygen 40 03/04/24 20:54 03/04/24 20:00 03/04/24 22:00 Temperature Pulse Rate 75 72 Respiratory Rate 20 Blood Pressure 129/53 L Pulse Oximetry 99 Oxygen Delivery Mechanical Ventilation Fraction of Inspired Oxygen 40 03/04/24 22:00 03/04/24 22:00 03/04/24 22:00 Temperature 36.6 C Pulse Rate 72 72 72 Respiratory Rate 20 20 20 Blood Pressure 162/91 H 162/91 H Pulse Oximetry 98 Oxygen Delivery Fraction of Inspired Oxygen 03/04/24 22:00 03/04/24 22:17 03/04/24 23:00 Temperature Pulse Rate 72 70 71 Respiratory Rate 20 20 Blood Pressure 136/60 Pulse Oximetry 99 Oxygen Delivery Mechanical Ventilation Fraction of Inspired Oxygen 40 10/22/24 23:00 03/04/24 22:47 03/04/24 22:47 Temperature Pulse Rate 71 81 81 Respiratory Rate 20 20 20 Blood Pressure 136/60 Pulse Oximetry Oxygen Delivery Fraction of Inspired Oxygen 03/04/24 22:48 03/04/24 23:21 03/04/24 23:52 Temperature Pulse Rate 81 81 Respiratory Rate 20 20 Blood Pressure Pulse Oximetry 98 Oxygen Delivery Mechanical Ventilation Fraction of Inspired Oxygen 40 03/05/24 00:00 03/05/24 00:00 03/05/24 00:00 Temperature 36.6 C Pulse Rate 81 81 Respiratory Rate 20 20 Blood Pressure 153/71 H Pulse Oximetry 98 Oxygen Delivery Fraction of Inspired Oxygen 40 03/05/24 00:00 03/05/24 02:05 03/05/24 02:00 Temperature Pulse Rate 81 62 62 Respiratory Rate 20 Blood Pressure Pulse Oximetry 100 Oxygen Delivery Mechanical Ventilation Fraction of Inspired Oxygen 40 03/05/24 02:15 03/05/24 02:00 03/05/24 04:00 Temperature Pulse Rate 66 62 76 Respiratory Rate 20 20 20 Blood Pressure Pulse Oximetry Oxygen Delivery Fraction of Inspired Oxygen 03/05/24 00:00 03/05/24 02:00 03/05/24 04:00 Temperature Pulse Rate 85 62 87 Respiratory Rate 20 20 20 Blood Pressure 156/73 H 145/66 H 139/63 Pulse Oximetry Oxygen Delivery Fraction of Inspired Oxygen 03/05/24 04:55 03/05/24 00:00 03/05/24 02:00 Temperature Pulse Rate 94 85 62 Respiratory Rate 20 20 20 Blood Pressure 160/78 H Pulse Oximetry Oxygen Delivery Fraction of Inspired Oxygen 03/05/24 04:00 03/05/24 04:59 03/05/24 02:00 Temperature 36.6 C Pulse Rate 76 105 H 62 Respiratory Rate 20 20 20 Blood Pressure 145/66 H Pulse Oximetry 100 Oxygen Delivery Fraction of Inspired Oxygen 03/05/24 04:00 03/05/24 02:00 03/05/24 04:00 Temperature 36.5 C Pulse Rate 76 62 Respiratory Rate 20 Blood Pressure 139/60 Pulse Oximetry 100 Oxygen Delivery Fraction of Inspired Oxygen 40 03/05/24 06:00 03/05/24 06:00 03/05/24 06:00 Temperature 36.5 C Pulse Rate 92 92 84 Respiratory Rate 20 20 Blood Pressure 148/81 H Pulse Oximetry 100 Oxygen Delivery Fraction of Inspired Oxygen 03/05/24 06:00 03/05/24 06:00 03/05/24 04:52 Temperature Pulse Rate 92 82 94 Respiratory Rate 20 20 Blood Pressure 148/81 H Pulse Oximetry 99 Oxygen Delivery Mechanical Ventilation Fraction of Inspired Oxygen 40 03/05/24 04:00 03/05/24 04:00 03/05/24 07:46 Temperature Pulse Rate 75 95 Respiratory Rate Blood Pressure Pulse Oximetry 100 100 Oxygen Delivery Mechanical Ventilation Mechanical Ventilation Fraction of Inspired Oxygen 40 03/05/24 07:46 03/05/24 08:04 03/05/24 08:00 Temperature 36.2 C L Pulse Rate 95 94 118 H Respiratory Rate 18 18 21 H Blood Pressure 146/80 H Pulse Oximetry 95 Oxygen Delivery Fraction of Inspired Oxygen 03/05/24 08:00 03/05/24 08:00 03/05/24 08:00 Temperature Pulse Rate 109 H 109 H 109 H Respiratory Rate 18 18 18 Blood Pressure 154/80 H Pulse Oximetry Oxygen Delivery Fraction of Inspired Oxygen 03/05/24 08:00 03/05/24 08:00 03/05/24 08:36 Temperature Pulse Rate Respiratory Rate Blood Pressure Pulse Oximetry 97 98 Oxygen Delivery Mechanical Ventilation Mechanical Ventilation Fraction of Inspired Oxygen 40 40 30 03/05/24 08:00 03/05/24 10:00 03/05/24 10:00 Temperature Pulse Rate 91 96 96 Respiratory Rate 18 18 Blood Pressure Pulse Oximetry Oxygen Delivery Fraction of Inspired Oxygen 03/05/24 10:00 03/05/24 10:00 03/05/24 10:55 Temperature 36.6 C Pulse Rate 96 90 91 Respiratory Rate 19 Blood Pressure 132/81 Pulse Oximetry 99 98 Oxygen Delivery Mechanical Ventilation Fraction of Inspired Oxygen 30 03/05/24 12:00 03/05/24 12:00 03/05/24 12:05 Temperature Pulse Rate 68 Respiratory Rate 18 Blood Pressure Pulse Oximetry 99 Oxygen Delivery Mechanical Ventilation Fraction of Inspired Oxygen 30 30 03/05/24 12:05 03/05/24 12:00 03/05/24 12:00 Temperature 36.8 C Pulse Rate 68 71 66 Respiratory Rate 18 16 Blood Pressure 129/55 L Pulse Oximetry 99 Oxygen Delivery Fraction of Inspired Oxygen 03/05/24 13:24 03/05/24 13:24 03/05/24 13:32 Temperature Pulse Rate 88 88 85 Respiratory Rate 20 20 Blood Pressure Pulse Oximetry 97 Oxygen Delivery Mechanical Ventilation Fraction of Inspired Oxygen 30 03/05/24 14:05 03/05/24 14:15 03/05/24 14:05 Temperature Pulse Rate 92 92 92 Respiratory Rate 18 18 18 Blood Pressure Pulse Oximetry Oxygen Delivery Fraction of Inspired Oxygen 03/05/24 14:05 Temperature Pulse Rate 92 Respiratory Rate 18 Blood Pressure Pulse Oximetry Oxygen Delivery Fraction of Inspired Oxygen Intake/Output Intake/Output: Intake & Output 03/02/24 03/03/24 03/04/24 03/05/24 23:59 23:59 23:59 23:59 Intake Total 3016.0 2079.4 2613.8 1209.3 Output Total 500 1355 2150 2600 Balance 2516.0 724.4 463.8 -1390.7 Meds/Results Medications: Active Medications Generic Name Dose Route Start Last Admin Trade Name Freq PRN Reason Stop Dose Admin Acetaminophen 500 mg 02/28/24 19:15 Acetaminophen 500 Mg Tablet PO Q6H PRN Pain Rated 1-3 Albuterol/Ipratropium 3 ml 02/29/24 02:00 03/05/24 13:24 Ipratropium 0.5 Mg/Albuterol Sulfate 2.5 Mg Ampul.Neb 3 Ml INHALATION 3 ml Q6HRT JASON Administration Aspirin 81 mg 03/01/24 08:00 03/05/24 08:25 Aspirin 81 Mg Chewable Tablet PO 81 mg DAILY@0800 JASON Administration Atorvastatin Calcium 80 mg 03/01/24 09:00 03/05/24 08:25 Atorvastatin 40 Mg Tablet PO 80 mg DAILY JASON Administration Dextrose 12.5 gm 02/28/24 19:23 Dextrose 50% 25 Gm/50 Ml Syringe IV PUSH PRN PRN Hypoglycemia Protocol Furosemide 80 mg 03/05/24 09:00 03/05/24 08:25 Furosemide Inj 100 Mg/10 Ml Vial IV PUSH 03/05/24 17:01 80 mg BID JASON Administration Glucagon 1 mg 02/28/24 19:23 Glucagon For Inj 1 Mg Vial IM PRN PRN Hypoglycemia Protocol Glucose 15 gm 02/28/24 19:23 Glucose Oral Gel 15 Gm Of Glucse In 37.5 Gm Tube PO PRN PRN Hypoglycemia Protocol Heparin Sodium (Porcine) 5,000 units 03/03/24 14:00 03/05/24 05:01 Heparin Sodium 5,000 Units/Ml Vial SUB-Q 5,000 units Q8HR JASON Administration Hydralazine HCl 10 mg 03/03/24 15:19 Hydralazine Hcl 20 Mg/Ml Vial IV PUSH Q4HR PRN Hypertension Dextrose 1,000 mls @ 100 mls/hr 02/28/24 19:23 Dextrose 5% 1,000 Ml IVPB PRN PRN Hypoglycemia Protocol Fentanyl Citrate 2,500 mcg in 250 mls @ 15 mls/hr 02/28/24 21:20 03/05/24 14:15 Fentanyl 2,500 Mcg/Ns 250 Ml IV CONT 150 mcg/hr .[id number] JASON 15 mls/hr Administration Protocol 150 MCG/HR Midazolam HCl 100 mg in 100 mls @ 5 mls/hr 02/28/24 21:20 03/05/24 14:05 Versed 100 Mg/Ns 100 Ml IV CONT 6 mg/hr .Q20H JASON 6 mls/hr Administration Protocol 5 MG/HR Meropenem 1 gm in 100 mls @ 200 mls/hr 02/28/24 22:00 03/05/24 13:50 IVPB 200 mls/hr Q8H JASON Administration Vancomycin HCl 1,500 mg in 500 mls @ 250 mls/hr 03/03/24 22:00 03/04/24 23:22 Vancomycin 1,500 Mg/Ns 500 Ml IVPB Infused Q24H JASON Infusion Insulin Aspart 3 - 6 units 03/01/24 00:00 03/05/24 12:30 Insulin Aspart (*Bkc) 100 Units/Ml SUB-Q Not Given Q6H [facility] Protocol Insulin Glargine 40 units 03/05/24 09:00 03/05/24 08:26 Insulin Glargine (*Bkc) 100 Units/Ml SUB-Q 40 units DAILY JASON Administration Metoclopramide HCl 10 mg 03/04/24 08:00 03/05/24 12:29 Metoclopramide Hcl 10 Mg/10 Ml Soln Udc FEED TUBE Not Given Q6HR [facility] Midodrine 5 mg 03/05/24 13:00 03/05/24 12:29 Midodrine Hcl 2.5 Mg Tablet PO Not Given TID [facility] Multi-Ingred Cream/Lotion/Oil/Oint 1 applic 02/29/24 09:00 03/05/24 08:26 Mineral Oil/White Petrolatum Ointment EACH EYE 1 applic Q12HR JASON Administration Naloxone HCl 0.1 mg 02/28/24 19:15 Naloxone Hcl 0.4 Mg/Ml Vial IV PUSH Q2M PRN Opiate Reversal Pantoprazole Sodium 40 mg 03/02/24 09:00 03/05/24 08:25 Pantoprazole Sodium Iv 40 Mg Vial IV PUSH 40 mg Q12HR JASON Administration Sodium Chloride 10 ml 02/29/24 06:00 03/05/24 14:16 Central Line Flush IV PUSH 10 ml Q8HR JASON Administration Sodium Chloride 20 ml 02/28/24 23:37 Central Line Flush IV PUSH PRN PRN after blood draws Radiology Results: ITS Impressions Lower Extremity CTA 02/28/24 14:54 IMPRESSION: 1. 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 2. Moderate stenosis of right popliteal artery. 3. Osteomyelitis involving first proximal and distal phalanges and head of first metatarsal. Head CT 02/29/24 05:55 Impression: No intracranial hemorrhage, mass, or acute infarct. Stable chronic encephalomalacia in the high left parietal lobe. Atrophy and chronic white matter changes, as above. Chest/Abdomen/Pelvis CTA 02/29/24 06:02 Impression: Extensive right upper lobe consolidation and more mild right middle lobe consolidation, consistent with pneumonia. Consider aspiration pneumonia. Moderate to large right pleural effusion with complete atelectasis of the right lower lobe. Moderate left pleural effusion with minimal left basilar atelectasis. Small pericardial effusion. No definite acute abnormality in the abdomen or pelvis. Chronic compression fractures, as above. Renal Ultrasound 03/03/24 15:45 IMPRESSION: 1. Normal kidneys without hydronephrosis. 2. Small amount of ascites in the abdomen and pelvis. Chest X-Ray 03/05/24 06:07 IMPRESSION: 1. Stable airspace opacities in right lung and left mid and lower lung zones, consistent with pneumonia. 2. Stable small right pleural effusion. Labs Labs: Laboratory Results - last 24 hr 03/04/24 03/04/24 03/04/24 15:34 17:06 23:04 WBC RBC Hgb Hct MCV MCH MCHC RDW Plt Count MPV Immature Gran % (Auto) Neut % (Auto) Lymph % (Auto) [place] % (Auto) Eos % (Auto) Baso % (Auto) Lymph # (Auto) [place] # (Auto) Eos # (Auto) Baso # (Auto) Abs Immat Gran (auto) Absolute Neuts (auto) Absolute Nucleated RBC Nucleated RBC % PT INR Puncture Site ABG pH ABG pCO2 ABG pO2 ABG PO2/FiO2 Ratio ABG HCO3 ABG O2 Saturation ABG O2 Content ABG Base Excess A-a Gradient Oxyhemoglobin Carboxyhemoglobin Methemoglobin Reduced Hemoglobin Total Hemoglobin O2 Delivery Device O2 Liters/Min Minute Volume Vent Rate Vent Mode FiO2 Tidal Volume PEEP Peak Inspir Pressure Pressure Support Sodium 139 Potassium 4.2 Chloride 108 H Carbon Dioxide 24 Anion Gap 7 BUN 52 H Creatinine 1.10 Estim Creat Clear Calc 68 Estimated GFR > 60 Glucose 269 H POC Capillary Glucose 272 H 213 H Lactic Acid Calcium 8.0 L Magnesium Total Bilirubin AST ALT Alkaline Phosphatase Total Protein Albumin 03/05/24 03/05/24 03/05/24 04:44 04:53 05:12 WBC 18.1 H RBC 3.31 L Hgb 9.1 L Hct 28.2 L MCV 85.2 MCH 27.5 MCHC 32.3 RDW 15.6 H Plt Count 456 H MPV 9.4 Immature Gran % (Auto) 1.6 H Neut % (Auto) 85.3 H Lymph % (Auto) 6.1 L [place] % (Auto) 6.6 Eos % (Auto) 0.1 Baso % (Auto) 0.3 Lymph # (Auto) 1.10 [place] # (Auto) 1.2 H Eos # (Auto) 0.0 Baso # (Auto) 0.1 Abs Immat Gran (auto) 0.29 H Absolute Neuts (auto) 15.5 H Absolute Nucleated RBC 0.000 Nucleated RBC % 0.0 PT 18.5 H INR 1.5 Puncture Site Artline ABG pH 7.493 H ABG pCO2 33.7 L ABG pO2 100.2 H ABG PO2/FiO2 Ratio 2.50 ABG HCO3 25.3 ABG O2 Saturation 98.0 ABG O2 Content 14.3 L ABG Base Excess 2.2 A-a Gradient 146.2 Oxyhemoglobin 96.7 Carboxyhemoglobin 1.0 Methemoglobin 0.3 Reduced Hemoglobin 2.0 Total Hemoglobin 10.4 L O2 Delivery Device Ventilator O2 Liters/Min Not Reportable Minute Volume Not Reportable Vent Rate 20 Vent Mode Cmv FiO2 40 Tidal Volume 410 PEEP 12 Peak Inspir Pressure Not Reportable Pressure Support Not Reportable Sodium 140 Potassium 4.5 Chloride 109 H Carbon Dioxide 25 Anion Gap 6 BUN 58 H Creatinine 1.00 Estim Creat Clear Calc 75 Estimated GFR > 60 Glucose 283 H POC Capillary Glucose 250 H Lactic Acid 1.0 Calcium 8.0 L Magnesium 2.9 H Total Bilirubin 0.4 AST 56 ALT 51 H Alkaline Phosphatase 93 Total Protein 6.0 L Albumin 2.8 L 03/05/24 12:04 WBC RBC Hgb Hct MCV MCH MCHC RDW Plt Count MPV Immature Gran % (Auto) Neut % (Auto) Lymph % (Auto) [place] % (Auto) Eos % (Auto) Baso % (Auto) Lymph # (Auto) [place] # (Auto) Eos # (Auto) Baso # (Auto) Abs Immat Gran (auto) Absolute Neuts (auto) Absolute Nucleated RBC Nucleated RBC % PT INR Puncture Site ABG pH ABG pCO2 ABG pO2 ABG PO2/FiO2 Ratio ABG HCO3 ABG O2 Saturation ABG O2 Content ABG Base Excess A-a Gradient Oxyhemoglobin Carboxyhemoglobin Methemoglobin Reduced Hemoglobin Total Hemoglobin O2 Delivery Device O2 Liters/Min Minute Volume Vent Rate Vent Mode FiO2 Tidal Volume PEEP Peak Inspir Pressure Pressure Support Sodium Potassium Chloride Carbon Dioxide Anion Gap BUN Creatinine Estim Creat Clear Calc Estimated GFR Glucose POC Capillary Glucose 233 H Lactic Acid Calcium Magnesium Total Bilirubin AST ALT Alkaline Phosphatase Total Protein Albumin
--- NOTE | 2024-03-05 14:23 | PC.NURSE ---
To OR per bed. RN and RT transported pt with patient care techs from OR. Fentanyl and Versed infusing. Dr. Johns signed consent form. Report given to AUTOMOTIVE MACHINIST APPRENTICE at bedside in OR. Care handed over to AUTOMOTIVE MACHINIST APPRENTICE at this time.
[2024-03-05] MEDS: ceFAZolin 2 GM/D5W 50 ML 2 GM/50 ML BAG IVPB (14:31)
[2024-03-05 15:37] LABS: Alveolar/Arterial O2 Gradient 523.5 mmHg; Fractional Inspired Oxygen 100 %; HCO3 ABG 26.1 mEq/l (22.0-26.0); Oxyhemoglobin 97.9 % THb (90.0-100.0); PCO2 ABG 38.9 mmHg (35.0-45.0); PO2 ABG 150.6 mmHg (80.0-100.0); PO2 FiO2 Ratio Arterial Blood 1.51 %; Total Hemoglobin 8.5 g/dL (12.0-18.0); pH ABG 7.445 (7.350-7.450)
[2024-03-05 15:38] LABS: Site Drawn ARTLINE
[2024-03-05 15:39] LABS: Device OTHER DEVICE
--- NOTE | 2024-03-05 15:40 | WPDANESEPPF ---
Anes - Initial Pre Proc Eval Procedure: Operation Date: 02/29/24 13:00 Proposed Procedures p Right Below Knee Amputation(Right) - Jasson Johns MD Operation Date: 03/05/24 13:45 Proposed Procedures p Right Below Knee Amputation - Jasson Johns MD Date/Time: 03/05/24 15:40 Surgeon: Yazmin Strange MD Pre Op Diagnosis: Necrotic R Foot Wound/Osteintekutus/DM Patient Data Age: 68 Gender: M Height: 1.78 m Weight: 104 kg Last Vital Signs Temp 98.6 F 03/05/24 14:00 Pulse 92 03/05/24 14:15 Resp 18 03/05/24 14:15 BP 121/53 L 03/05/24 14:00 Pulse Ox 96 03/05/24 14:00 O2 Del Method Mechanical Ventilation 03/05/24 13:24 FiO2 30 03/05/24 13:24 Allergies Allergy/AdvReac Type Severity Reaction Status Date / Time No Known Allergies Allergy Verified 02/29/24 12:35 Home Medications Medication Instructions Recorded Confirmed Type albuterol sulfate 90 mcg/actuation 2 puff inhalation QID #8.5 grams 05/11/19 07/17/20 Rx aerosol inhaler budesonide-formoterol HFA 160 2 puff inhalation Q12H 07/17/20 07/17/20 History mcg-4.5 mcg/actuation aerosol inhaler (Symbicort) calcium carbonate (Tums) 200 mg PO QID PRN Indigestion 07/17/20 07/17/20 History cholecalciferol (vitamin D3) 25 25 mcg PO DAILY 07/17/20 07/17/20 History mcg (1,000 unit) tablet citalopram 20 mg tablet (Celexa) 20 mg PO DAILY 07/17/20 07/17/20 History fluticasone propionate 50 2 spray intranasal DAILY 07/17/20 07/17/20 History mcg/actuation nasal spray,suspension metoprolol succinate 50 mg 50 mg PO DAILY 07/17/20 07/17/20 History tablet,extended release 24 hr zolpidem 10 mg tablet 10 mg PO HS 07/17/20 07/17/20 History aspirin 81 mg chewable tablet 81 mg PO DAILY@0800 #30 tabs 07/19/20 Rx (Children's Aspirin) canagliflozin 100 mg tablet 100 mg PO DAILY@0800 #30 tabs 07/19/20 Rx (Invokana) losartan 25 mg tablet 25 mg PO DAILY #30 tabs 07/19/20 Rx metformin 500 mg tablet 500 mg PO BIDWM #60 tabs 07/19/20 Rx (Glucophage) miconazole nitrate 2 % topical 1 applic topical Q12HR #30 grams 07/19/20 Rx cream rosuvastatin 10 mg tablet (Crestor) 20 mg PO DAILY #30 tabs 07/19/20 Rx ticagrelor 90 mg tablet (Brilinta) 90 mg PO Q12HR #60 tabs 07/19/20 Rx Flonase 2 inh EACH NARE DAILY 02/28/24 02/28/24 History acetaminophen 325 mg tablet 650 mg PO TID 02/28/24 02/28/24 History albuterol sulfate 90 mcg/actuation 2 inh inhalation Q4H PRN Shortness 02/28/24 02/28/24 History aerosol inhaler Of Breath Or Wheezing aspirin 81 mg chewable tablet 81 mg PO DAILY 02/28/24 02/28/24 History (Aspirin Childrens) budesonide-formoterol HFA 160 2 puff inhalation Q12H 02/28/24 02/28/24 History mcg-4.5 mcg/actuation aerosol inhaler (Symbicort) calcium carbonate (Calcium Antacid) 400 mg PO Q6H heartburn 02/28/24 02/28/24 History dapagliflozin propanediol 5 mg 10 mg PO DAILY 02/28/24 02/28/24 History tablet (Farxiga) docusate sodium 100 mg capsule 100 mg PO Q12H 02/28/24 02/28/24 History (Colace) glucagon 1 mg/0.2 mL subcutaneous 1 mg subcut PRN PRN Hypoglycemia 02/28/24 02/28/24 History auto-injector (Gvoke HypoPen 1-Pack) guaifenesin 400 mg tablet 400 mg PO Q6H PRN Cough 02/28/24 02/28/24 History insulin aspart U-100 100 unit/mL 7 unit subcut AC 02/28/24 02/28/24 History subcutaneous solution insulin glargine-yfgn 100 unit/mL 55 unit subcut HS 02/28/24 02/28/24 History (3 mL) subcutaneous pen lanolin alcohols-mineral 1 applic topical Q12H 02/28/24 02/28/24 History oil-w.petrolatum-ceresin topical cream (Eucerin topical cream) losartan 25 mg tablet 25 mg PO DAILY 02/28/24 02/28/24 History metformin 500 mg tablet 500 mg PO BID 02/28/24 02/28/24 History metoprolol succinate 50 mg 50 mg PO DAILY 02/28/24 02/28/24 History tablet,extended release 24 hr multivit with minerals-iron 18 1 tablet PO DAILY 02/28/24 02/28/24 History mg-folic ac 400 mcg-vit K 25 mcg tablet (Adults Multivitamin) polyethylene glycol 3350 17 gram 17 g PO DAILY PRN Constipation 02/28/24 02/28/24 History oral powder packet (Miralax) rosuvastatin 20 mg tablet 20 mg PO DAILY 02/28/24 02/28/24 History ticagrelor 60 mg tablet (Brilinta) 60 mg PO Q12H 02/28/24 02/28/24 History trazodone 50 mg tablet 25 mg PO HS 02/28/24 02/28/24 History Laboratory Tests 03/04/24 03/04/24 03/04/24 15:34 17:06 23:04 WBC RBC Hgb Hct MCV MCH MCHC RDW Plt Count MPV Immature Gran % (Auto) Neut % (Auto) Lymph % (Auto) [place] % (Auto) Eos % (Auto) Baso % (Auto) Lymph # (Auto) [place] # (Auto) Eos # (Auto) Baso # (Auto) Abs Immat Gran (auto) Absolute Neuts (auto) Absolute Nucleated RBC Nucleated RBC % PT INR Puncture Site ABG pH ABG pCO2 ABG pO2 ABG PO2/FiO2 Ratio ABG HCO3 ABG O2 Saturation ABG O2 Content ABG Base Excess A-a Gradient Oxyhemoglobin Carboxyhemoglobin Methemoglobin Reduced Hemoglobin Total Hemoglobin O2 Delivery Device O2 Liters/Min Minute Volume Vent Rate Vent Mode FiO2 Tidal Volume PEEP Peak Inspir Pressure Pressure Support Sodium 139 mmol/L (137-145) Potassium 4.2 mmol/L (3.4-5.0) Chloride 108 H mmol/L (98-107) Carbon Dioxide 24 mmol/L (22-30) Anion Gap 7 mmol/L (4-12) BUN 52 H mg/dL (9-20) Creatinine 1.10 mg/dL (0.7-1.3) Estim Creat Clear Calc 68 ml/min Estimated GFR > 60 (59 - ) Glucose 269 H mg/dL (65-110) POC Capillary Glucose 272 H mg/dl 213 H mg/dl (65-105) (65-105) Lactic Acid Calcium 8.0 L mg/dL (8.4-10.2) Magnesium Total Bilirubin AST ALT Alkaline Phosphatase Total Protein Albumin Blood Type Antibody Screen Crossmatch 03/05/24 03/05/24 03/05/24 04:44 04:53 05:12 WBC 18.1 H K/mm3 (4.5-10.0) RBC 3.31 L M/mm3 (4.6-6.20) Hgb 9.1 L g/dL (14.0-18.0) Hct 28.2 L % (42.0-52.0) MCV 85.2 fl (80-100) MCH 27.5 pg (26-34) MCHC 32.3 g/dl (32-36) RDW 15.6 H % (11.5-14.5) Plt Count 456 H k/mm3 (150-375) MPV 9.4 fl (7.4-10.4) Immature Gran % (Auto) 1.6 H % (0-0.5) Neut % (Auto) 85.3 H % (45.5-73.1) Lymph % (Auto) 6.1 L % (18.3-44.2) [place] % (Auto) 6.6 % (2.6-8.5) Eos % (Auto) 0.1 % (0-4.4) Baso % (Auto) 0.3 % (0.2-1.2) Lymph # (Auto) 1.10 K/mm3 (0.9-3.2) [place] # (Auto) 1.2 H K/mm3 (0.1-0.6) Eos # (Auto) 0.0 K/mm3 (0-0.3) Baso # (Auto) 0.1 K/mm3 (0.0-0.1) Abs Immat Gran (auto) 0.29 H K/mm3 (0.00-0.031) Absolute Neuts (auto) 15.5 H K/mm3 (1.3-6.7) Absolute Nucleated RBC 0.000 K/mm3 (0.0-0.012) Nucleated RBC % 0.0 % (0.0-0.2) PT 18.5 H Seconds (11.1-14.7) INR 1.5 Puncture Site Artline ABG pH 7.493 H (7.350-7.450) ABG pCO2 33.7 L mmHg (35.0-45.0) ABG pO2 100.2 H mmHg (80.0-100.0) ABG PO2/FiO2 Ratio 2.50 % ABG HCO3 25.3 mEq/l (22.0-26.0) ABG O2 Saturation 98.0 % (95.0-100.0) ABG O2 Content 14.3 L %vol (16.0-22.0) ABG Base Excess 2.2 mEq/l (+/-2.0) A-a Gradient 146.2 mmHg Oxyhemoglobin 96.7 % THb (90.0-100.0) Carboxyhemoglobin 1.0 % THb (0-2.0) Methemoglobin 0.3 %THb (0-1.5) Reduced Hemoglobin 2.0 %THb (0-5.0) Total Hemoglobin 10.4 L g/dL (12.0-18.0) O2 Delivery Device Ventilator O2 Liters/Min Not Reportable Minute Volume Not Reportable Vent Rate 20 /MIN Vent Mode Cmv FiO2 40 % Tidal Volume 410 ml PEEP 12 cmH2O Peak Inspir Pressure Not Reportable Pressure Support Not Reportable Sodium 140 mmol/L (137-145) Potassium 4.5 mmol/L (3.4-5.0) Chloride 109 H mmol/L (98-107) Carbon Dioxide 25 mmol/L (22-30) Anion Gap 6 mmol/L (4-12) BUN 58 H mg/dL (9-20) Creatinine 1.00 mg/dL (0.7-1.3) Estim Creat Clear Calc 75 ml/min Estimated GFR > 60 (59 - ) Glucose 283 H mg/dL (65-110) POC Capillary Glucose 250 H mg/dl (65-105) Lactic Acid 1.0 mmol/L (0.7-2.0) Calcium 8.0 L mg/dL (8.4-10.2) Magnesium 2.9 H mg/dL (1.6-2.3) Total Bilirubin 0.4 mg/dL (0.2-1.3) AST 56 U/L (17-59) ALT 51 H U/L (6-50) Alkaline Phosphatase 93 U/L (38-126) Total Protein 6.0 L g/dL (6.3-8.2) Albumin 2.8 L g/dL (3.5-5.1) Blood Type Antibody Screen Crossmatch 03/05/24 03/05/24 12:04 15:29 WBC RBC Hgb Hct MCV MCH MCHC RDW Plt Count MPV Immature Gran % (Auto) Neut % (Auto) Lymph % (Auto) [place] % (Auto) Eos % (Auto) Baso % (Auto) Lymph # (Auto) [place] # (Auto) Eos # (Auto) Baso # (Auto) Abs Immat Gran (auto) Absolute Neuts (auto) Absolute Nucleated RBC Nucleated RBC % PT INR Puncture Site Artline ABG pH 7.445 (7.350-7.450) ABG pCO2 38.9 mmHg (35.0-45.0) ABG pO2 150.6 H mmHg (80.0-100.0) ABG PO2/FiO2 Ratio 1.51 % ABG HCO3 26.1 H mEq/l (22.0-26.0) ABG O2 Saturation 99.0 % (95.0-100.0) ABG O2 Content 12.0 L %vol (16.0-22.0) ABG Base Excess 2.0 mEq/l (+/-2.0) A-a Gradient 523.5 mmHg Oxyhemoglobin 97.9 % THb (90.0-100.0) Carboxyhemoglobin Methemoglobin Reduced Hemoglobin Total Hemoglobin 8.5 L g/dL (12.0-18.0) O2 Delivery Device Other device O2 Liters/Min Not Reportable Minute Volume Vent Rate Vent Mode FiO2 100 % Tidal Volume PEEP Peak Inspir Pressure Pressure Support Sodium Potassium Chloride Carbon Dioxide Anion Gap BUN Creatinine Estim Creat Clear Calc Estimated GFR Glucose POC Capillary Glucose 233 H mg/dl (65-105) Lactic Acid Calcium Magnesium Total Bilirubin AST ALT Alkaline Phosphatase Total Protein Albumin Blood Type Pending Antibody Screen Pending Crossmatch See Detail Patient hx anesthesia problems: none Family hx anesthesia problems: none Results Review: All pre-operative results and documents have been reviewed as part of the pre-operative evaluation. [facility] Past Medical History Medical History Alcohol abuse has abstained for many years Chronic obstructive pulmonary disease COPD (chronic obstructive pulmonary disease) Coronary artery disease COVID-19 Depression Hip fracture, right History of alcoholism HTN (hypertension) Insomnia Peripheral neuropathy Peripheral vascular disease Type 2 diabetes mellitus Surgical History Surgical History History of appendectomy History of coronary artery stent placement History of hip surgery Reconstruction of the right femur History of open reduction and internal fixation (ORIF) procedure repair right femur fracture History of surgery on lower extremity History of tonsillectomy Family History Family History Father Cancer Mother Heart attack Father Cancer Mother Acute myocardial infarction Grandparent 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 Social History Social History Social History: Patient resides at [facility]. He has lived there for the past 7 years. Quit tobacco 12 years ago after smoking 1-1.5 packs per times 30+ years. He has been twice. History of alcoholism but sober for the past 7+ years. History of drug use with cocaine but denies history of IV drug use. He is a full code. He nominated his niece Flaca Abreu be the individual would make medical decisions for him if he is unable. He does have 1 son named Ricky. Smoking status: Former smoker Alcohol intake: former Substance use: former Substance use type: does not use and marijuana Do You Feel Safe in your Home?: Yes Lack of Transportation: No Lack of Food: Never True Current Housing: I Have Housing Concerned About Future Housing: No Difficulty Paying Gas/Electric Bills: No Difficulty Paying for Meds: No Currently Unemployed: No Education: Trade/Vocational Certificate Difficulty w/ Childcare or Family Care: No Living arrangements: retirement Additional living arrangements comments: Pt lives at [facility] [place]. Additional occupation/education comments: Disabled. Spiritual care concerns: No Anes - Eval Final PreProcedure Day of Procedure 03/05/24 15:40 Patient weight: overweight Heart: regular rate and rhythm Lungs: clear to auscultation and decreased breath sounds Neurological: other (Intubated, sedated. ) Last oral intake: >/= 8 hours ASA classification: IV Emergent: yes Anesthetic plan: proceed Anesthesia type and monitoring: general ETT, standard monitoring and invasive monitoring arterial line (in situ.) and central venous line (in situ.) Results Review: All pre-operative results and documents have been reviewed as part of the pre-operative evaluation. Pt from ICU, intubated, sedated, w CVP/art line, now for amputation due to gangrenous leg. Informed Consent: The patient's anesthetic plan and its attendant risks and benefits were discussed with the patient/family/POA. Questions were solicited and answers provided to the satisfaction of the patient/family/POA.
--- NOTE | 2024-03-05 15:45 | SUR.OPER ---
300 cc clear yellow urine emptied from [facility] at 1545
--- NOTE | 2024-03-05 15:47 | P.PNIM_ITS ---
Progress Note: A&P Assessment and Plan (1) Acute respiratory failure with hypoxia: Code(s): J96.01 - Acute respiratory failure with hypoxia Status: Acute Assessment and Plan: Acute respiratory failure likely related to cardiac arrest, aspiration pneumonia, NSTEMI, hypoxia, septic shock Worsening likely secondary to ARDS versus pulmonary edema -currently CMV mode of ventilation, peep of 12, 40% FiO2. Decrease PEEP to 10 -chest x-ray reviewed. Advance ET tube by 2 cm -continue bronchodilators -on fentanyl and Versed infusion for sedation -DC Nimbex for neuromuscular brayden -continue diuresis (2) Cardiac arrest with pulseless electrical activity: Code(s): I46.9 - Cardiac arrest, cause unspecified Status: Acute Assessment and Plan: Cardiac arrest, secondary to unknown etiology. Possible aspiration pneumonia, NSTEMI, hypoxia, septic shock, infection -see code blue sheet for the details -patient currently intubated, vasopressors for blood pressure support have been weaned off -appreciate cardiology following the patient 02/29/2024 echocardiogram Summary 1. Technically difficult study with limited views. 2. Left ventricular chamber dimension is normal. 3. Left ventricular systolic function is mildly reduced, estimated at 45-50%. The apex appears to be hypokinetic. 4. There is mildly increased left ventricular wall thickness. 5. The left ventricular diastolic function is grade I diastolic dysfunction. 6. Right ventricular systolic function is normal. 7. Left atrial chamber dimension is moderately enlarged. 8. There is mild to moderate tricuspid valve regurgitation. 9. There is small anterior pericardial effusion. (3) Septic shock: Code(s): A41.9 - Sepsis, unspecified organism; R65.21 - Severe sepsis with septic shock Status: Acute Assessment and Plan: Patient in shock, likely related to the gangrene, aspiration pneumonia, status post cardiac arrest 02/28/2024: Blood cultures have been obtained and negative till now -lactic acid has normalized -patient has been adequately fluid-resuscitated -OFF Levophed -wean stress dose steroids -continue midodrine -status post albumin for intravascular volume expansion (4) NSTEMI (non-ST elevated myocardial infarction): Code(s): I21.4 - Non-ST elevation (NSTEMI) myocardial infarction Status: Acute Assessment and Plan: Increasing troponins, -EKG showed sinus rhythm with T-wave changes in V1 to V5 -appreciate cardiology evaluation and recommendation -Continue aspirin and high-dose a statin -will hold Brilinta -will also hold beta-brayden, losartan which is home med, since he is hypotensive on vasopressors -03/02 heparin infusion was discontinued after 48 hours for NSTEMI by cardiology (5) Gangrene of right foot: Code(s): I96 - Gangrene, not elsewhere classified Status: Acute Assessment and Plan: CTA showed peripheral arterial disease with total occlusion of the right anterior and posterior tibial arteries and right peroneal artery with distal reconstitution of peroneal artery. This extensive gangrene of the right foot with gas seen on CT of the foot. General surgery spoke to the patient in the ER on the day of admission on 02/27 patient at that time agreed for below-knee amputation. Plan was to do a below- knee amputation on 02/29/2024 but patient had a cardiac arrest that night secondary to sepsis. Surgery at that time was deferred. Patient now is intubated sedated and unable to sign his consent.. Patient has no family and [facility] at the [facility] has had no visitor. He has 1 son which no one has been able to get hold off right several attempts. Considering patient has gangrene of the foot with no vascular supply leading to sepsis and if untreatable lead to his , Dr. Johns will proceed with amputation today. Nh and Dr. Johns has signed 2 physician consent considering patient's clearly expressed wishes prior to cardiac arrest at the time of admission, his current situation and inability to sign the consent form by himself at this time. -continue antibiotics for necrotizing gas gangrene. Patient on meropenem and vancomycin which was started on 02/28/2024 -complete 5 days of clindamycin (6) Osteomyelitis of toe of right foot: Code(s): M86.9 - Osteomyelitis, unspecified Status: Chronic Assessment and Plan: As above (7) Peripheral vascular disease: Code(s): I73.9 - Peripheral vascular disease, unspecified Status: Chronic Assessment and Plan: Patient has history of peripheral vascular disease, coronary artery disease -started on aspirin, patient will require Brilinta since he had a STEMI in 2020 but currently holding Brilinta due to possible amputation (8) Type 2 diabetes mellitus: Qualifiers: 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 complication status: with other specified complication 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 custodial insulin use: with custodial use Qualified Code(s): E11.69 - Type 2 diabetes mellitus with other specified complication; Z79.4 - inspector barrel (current) use of insulin Code(s): E11.9 - Type 2 diabetes mellitus without complications Status: Acute Assessment and Plan: Currently on sliding scale insulin, Accu-Cheks Hemoglobin A1c this admission is 8.2 Increase Lantus (9) Chronic obstructive pulmonary disease: Code(s): J44.9 - Chronic obstructive pulmonary disease, unspecified Status: Acute Assessment and Plan: Continue DuoNebs -continue Symbicort Subjective Date/time seen: 03/05/24 15:47 Interval history: Possible right below knee amputation today . Intubated with CMV mode of ventilation. On fentanyl and versed for sedation. Review of Systems Review of Systems: 12 systems were reviewed and are negativ e except for as per HPI. ROS unobtainable: Yes unobtainable due to endotracheal tube, unobtainable due to medical condition and unobtainable due to mental status Exam 2 Narrative: General: Patient intubated and sedated and chemically paralyzed HEENT:, pupils are equal and reactive from a sclera is clear Neck:? supple Respiratory:? Coarse breath sounds bilaterally, decreased at bases, adequate air entry Cardiac:? S1-S2 normal, regular rate and rhythm Abdomen:? Soft, nontender, nondistended, hypoactive bowel sounds Extremities:? Gangrenous right 1st toe down to the 1st metatarsal, dorsum of the foot and all the way to approximately the heel on the medial aspect and plantar aspect of the foot over the 1st metatarsal. Purulent drainage and foul order. There is also erythema and swelling of the right foot. Right foot is now in a dressing. Posterior tibial and pedal pulses are not palpable Neuro:? Patient is intubated, sedated, and chemically paralyzed PERRL Skin:? Patient has maceration of his perianal area, and states to pressure ulcer on his buttocks. Psych:? Unable to assess at this time Objective Data Vital Signs Vital Signs: Vital Signs - 24 hr 03/04/24 16:00 03/04/24 16:00 03/04/24 16:03 Temperature Pulse Rate 60 60 Respiratory Rate 20 Blood Pressure Pulse Oximetry Oxygen Delivery Fraction of Inspired Oxygen 40 03/04/24 16:03 03/04/24 16:03 03/04/24 16:00 Temperature 97.3 F L Pulse Rate 60 60 60 Respiratory Rate 20 20 20 Blood Pressure 128/54 L 115/57 L Pulse Oximetry 98 Oxygen Delivery Fraction of Inspired Oxygen 03/04/24 16:34 03/04/24 16:32 03/04/24 17:00 Temperature Pulse Rate 65 60 60 Respiratory Rate 20 20 Blood Pressure 122/52 L 119/51 L Pulse Oximetry 99 Oxygen Delivery Mechanical Ventilation Fraction of Inspired Oxygen 40 03/04/24 16:00 03/04/24 17:33 03/04/24 18:00 Temperature Pulse Rate 99 80 Respiratory Rate 20 Blood Pressure 136/61 Pulse Oximetry 100 Oxygen Delivery Mechanical Ventilation Fraction of Inspired Oxygen 40 03/04/24 18:08 03/04/24 18:07 03/04/24 18:08 Temperature Pulse Rate 80 80 80 Respiratory Rate 20 20 20 Blood Pressure 133/54 L Pulse Oximetry Oxygen Delivery Fraction of Inspired Oxygen 03/04/24 18:00 03/04/24 19:35 03/04/24 19:36 Temperature 97.6 F Pulse Rate 84 69 85 Respiratory Rate 20 20 Blood Pressure 140/58 L Pulse Oximetry 98 99 Oxygen Delivery Mechanical Ventilation Fraction of Inspired Oxygen 40 03/04/24 19:58 03/04/24 20:00 03/04/24 20:00 Temperature 98.0 F Pulse Rate 75 78 78 Respiratory Rate 20 21 H Blood Pressure 126/50 L Pulse Oximetry 99 Oxygen Delivery Fraction of Inspired Oxygen 03/04/24 20:00 03/04/24 20:00 03/04/24 20:00 Temperature Pulse Rate 78 78 78 Respiratory Rate 21 H 21 H 21 H Blood Pressure 126/50 L Pulse Oximetry Oxygen Delivery Fraction of Inspired Oxygen 03/04/24 20:00 03/04/24 20:39 03/04/24 20:54 Temperature Pulse Rate 74 75 Respiratory Rate 21 H 20 Blood Pressure 119/48 L 129/53 L Pulse Oximetry Oxygen Delivery Fraction of Inspired Oxygen 40 03/04/24 20:00 03/04/24 22:00 03/04/24 22:00 Temperature 97.8 F Pulse Rate 72 72 Respiratory Rate 20 Blood Pressure 162/91 H Pulse Oximetry 99 98 Oxygen Delivery Mechanical Ventilation Fraction of Inspired Oxygen 40 03/04/24 22:00 03/04/24 22:00 03/04/24 22:00 Temperature Pulse Rate 72 72 72 Respiratory Rate 20 20 20 Blood Pressure 162/91 H Pulse Oximetry Oxygen Delivery Fraction of Inspired Oxygen 03/04/24 22:17 03/04/24 23:00 03/04/24 23:00 Temperature Pulse Rate 70 71 71 Respiratory Rate 20 20 Blood Pressure 136/60 136/60 Pulse Oximetry 99 Oxygen Delivery Mechanical Ventilation Fraction of Inspired Oxygen 40 03/04/24 22:47 03/04/24 22:47 03/04/24 22:48 Temperature Pulse Rate 81 81 81 Respiratory Rate 20 20 20 Blood Pressure Pulse Oximetry Oxygen Delivery Fraction of Inspired Oxygen 03/04/24 23:21 03/04/24 23:52 03/05/24 00:00 Temperature Pulse Rate 81 Respiratory Rate 20 Blood Pressure Pulse Oximetry 98 Oxygen Delivery Mechanical Ventilation Fraction of Inspired Oxygen 40 40 03/05/24 00:00 03/05/24 00:00 03/05/24 00:00 Temperature 97.9 F Pulse Rate 81 81 81 Respiratory Rate 20 20 Blood Pressure 153/71 H Pulse Oximetry 98 Oxygen Delivery Fraction of Inspired Oxygen 03/05/24 02:05 03/05/24 02:00 03/05/24 02:15 Temperature Pulse Rate 62 62 66 Respiratory Rate 20 20 Blood Pressure Pulse Oximetry 100 Oxygen Delivery Mechanical Ventilation Fraction of Inspired Oxygen 40 03/05/24 02:00 03/05/24 04:00 03/05/24 00:00 Temperature Pulse Rate 62 76 85 Respiratory Rate 20 20 20 Blood Pressure 156/73 H Pulse Oximetry Oxygen Delivery Fraction of Inspired Oxygen 03/05/24 02:00 03/05/24 04:00 03/05/24 04:55 Temperature Pulse Rate 62 87 94 Respiratory Rate 20 20 20 Blood Pressure 145/66 H 139/63 160/78 H Pulse Oximetry Oxygen Delivery Fraction of Inspired Oxygen 03/05/24 00:00 03/05/24 02:00 03/05/24 04:00 Temperature Pulse Rate 85 62 76 Respiratory Rate 20 20 20 Blood Pressure Pulse Oximetry Oxygen Delivery Fraction of Inspired Oxygen 03/05/24 04:59 03/05/24 02:00 03/05/24 04:00 Temperature 97.9 F 97.7 F Pulse Rate 105 H 62 76 Respiratory Rate 20 20 20 Blood Pressure 145/66 H 139/60 Pulse Oximetry 100 100 Oxygen Delivery Fraction of Inspired Oxygen 03/05/24 02:00 03/05/24 04:00 03/05/24 06:00 Temperature Pulse Rate 62 92 Respiratory Rate Blood Pressure Pulse Oximetry Oxygen Delivery Fraction of Inspired Oxygen 40 03/05/24 06:00 03/05/24 06:00 03/05/24 06:00 Temperature 97.7 F Pulse Rate 92 84 92 Respiratory Rate 20 20 20 Blood Pressure 148/81 H 148/81 H Pulse Oximetry 100 Oxygen Delivery Fraction of Inspired Oxygen 03/05/24 06:00 03/05/24 04:52 03/05/24 04:00 Temperature Pulse Rate 82 94 Respiratory Rate 20 Blood Pressure Pulse Oximetry 99 100 Oxygen Delivery Mechanical Ventilation Mechanical Ventilation Fraction of Inspired Oxygen 40 03/05/24 04:00 03/05/24 07:46 03/05/24 07:46 Temperature Pulse Rate 75 95 95 Respiratory Rate 18 Blood Pressure Pulse Oximetry 100 Oxygen Delivery Mechanical Ventilation Fraction of Inspired Oxygen 40 03/05/24 08:04 03/05/24 08:00 03/05/24 08:00 Temperature 97.1 F L Pulse Rate 94 118 H 109 H Respiratory Rate 18 21 H 18 Blood Pressure 146/80 H Pulse Oximetry 95 Oxygen Delivery Fraction of Inspired Oxygen 03/05/24 08:00 03/05/24 08:00 03/05/24 08:00 Temperature Pulse Rate 109 H 109 H Respiratory Rate 18 18 Blood Pressure 154/80 H Pulse Oximetry 97 Oxygen Delivery Mechanical Ventilation Fraction of Inspired Oxygen 40 03/05/24 08:00 03/05/24 08:36 03/05/24 08:00 Temperature Pulse Rate 91 Respiratory Rate Blood Pressure Pulse Oximetry 98 Oxygen Delivery Mechanical Ventilation Fraction of Inspired Oxygen 40 30 03/05/24 10:00 03/05/24 10:00 03/05/24 10:00 Temperature Pulse Rate 96 96 96 Respiratory Rate 18 18 Blood Pressure Pulse Oximetry Oxygen Delivery Fraction of Inspired Oxygen 03/05/24 10:00 03/05/24 10:55 03/05/24 12:00 Temperature 97.9 F Pulse Rate 90 91 Respiratory Rate 19 Blood Pressure 132/81 Pulse Oximetry 99 98 99 Oxygen Delivery Mechanical Ventilation Mechanical Ventilation Fraction of Inspired Oxygen 30 30 03/05/24 12:00 03/05/24 12:05 03/05/24 12:05 Temperature Pulse Rate 68 68 Respiratory Rate 18 18 Blood Pressure Pulse Oximetry Oxygen Delivery Fraction of Inspired Oxygen 30 03/05/24 12:00 03/05/24 12:00 03/05/24 13:24 Temperature 98.2 F Pulse Rate 71 66 88 Respiratory Rate 16 Blood Pressure 129/55 L Pulse Oximetry 99 97 Oxygen Delivery Mechanical Ventilation Fraction of Inspired Oxygen 30 03/05/24 13:24 03/05/24 13:32 03/05/24 14:05 Temperature Pulse Rate 88 85 92 Respiratory Rate 20 20 18 Blood Pressure Pulse Oximetry Oxygen Delivery Fraction of Inspired Oxygen 03/05/24 14:15 03/05/24 14:05 03/05/24 14:05 Temperature Pulse Rate 92 92 92 Respiratory Rate 18 18 18 Blood Pressure Pulse Oximetry Oxygen Delivery Fraction of Inspired Oxygen 03/05/24 14:00 03/05/24 14:00 Temperature 98.6 F Pulse Rate 92 92 Respiratory Rate 18 Blood Pressure 121/53 L Pulse Oximetry 96 Oxygen Delivery Fraction of Inspired Oxygen Intake/Output Intake/Output: Intake & Output 03/02/24 03/03/24 03/04/24 03/05/24 23:59 23:59 23:59 23:59 Intake Total 3016.0 2079.4 2613.8 1259.3 Output Total 500 1355 2150 2600 Balance 2516.0 724.4 463.8 -1340.7 Meds/Results Medications: Active Medications Generic Name Dose Route Start Last Admin Trade Name Freq PRN Reason Stop Dose Admin Acetaminophen 500 mg 02/28/24 19:15 Acetaminophen 500 Mg Tablet PO Q6H PRN Pain Rated 1-3 Albuterol/Ipratropium 3 ml 02/29/24 02:00 03/05/24 13:24 Ipratropium 0.5 Mg/Albuterol Sulfate 2.5 Mg Ampul.Neb 3 Ml INHALATION 3 ml Q6HRT JASON Administration Aspirin 81 mg 03/01/24 08:00 03/05/24 08:25 Aspirin 81 Mg Chewable Tablet PO 81 mg DAILY@0800 JASON Administration Atorvastatin Calcium 80 mg 03/01/24 09:00 03/05/24 08:25 Atorvastatin 40 Mg Tablet PO 80 mg DAILY JASON Administration Dextrose 12.5 gm 02/28/24 19:23 Dextrose 50% 25 Gm/50 Ml Syringe IV PUSH PRN PRN Hypoglycemia Protocol Furosemide 80 mg 03/05/24 09:00 03/05/24 08:25 Furosemide Inj 100 Mg/10 Ml Vial IV PUSH 03/05/24 17:01 80 mg BID JASON Administration Glucagon 1 mg 02/28/24 19:23 Glucagon For Inj 1 Mg Vial IM PRN PRN Hypoglycemia Protocol Glucose 15 gm 02/28/24 19:23 Glucose Oral Gel 15 Gm Of Glucse In 37.5 Gm Tube PO PRN PRN Hypoglycemia Protocol Heparin Sodium (Porcine) 5,000 units 03/03/24 14:00 03/05/24 05:01 Heparin Sodium 5,000 Units/Ml Vial SUB-Q 5,000 units Q8HR JASON Administration Hydralazine HCl 10 mg 03/03/24 15:19 Hydralazine Hcl 20 Mg/Ml Vial IV PUSH Q4HR PRN Hypertension Dextrose 1,000 mls @ 100 mls/hr 02/28/24 19:23 Dextrose 5% 1,000 Ml IVPB PRN PRN Hypoglycemia Protocol Fentanyl Citrate 2,500 mcg in 250 mls @ 15 mls/hr 02/28/24 21:20 03/05/24 14:15 Fentanyl 2,500 Mcg/Ns 250 Ml IV CONT 150 mcg/hr .[id number] JASON 15 mls/hr Administration Protocol 150 MCG/HR Midazolam HCl 100 mg in 100 mls @ 5 mls/hr 02/28/24 21:20 03/05/24 14:05 Versed 100 Mg/Ns 100 Ml IV CONT 6 mg/hr .Q20H JASON 6 mls/hr Administration Protocol 5 MG/HR Meropenem 1 gm in 100 mls @ 200 mls/hr 02/28/24 22:00 03/05/24 13:50 IVPB 200 mls/hr Q8H JASON Administration Vancomycin HCl 1,500 mg in 500 mls @ 250 mls/hr 03/03/24 22:00 03/04/24 23:22 Vancomycin 1,500 Mg/Ns 500 Ml IVPB Infused Q24H JASON Infusion Sodium Chloride 250 mls @ 30 mls/hr 03/05/24 15:19 Normal Saline Iv IV CONT 03/05/24 23:38 .Q8H20M STA Sodium Chloride 250 mls @ 30 mls/hr 03/05/24 15:41 Normal Saline Iv IV CONT 03/06/24 00:00 .Q8H20M STA Insulin Aspart 3 - 6 units 03/01/24 00:00 03/05/24 12:30 Insulin Aspart (*Bkc) 100 Units/Ml SUB-Q Not Given Q6H [facility] Protocol Insulin Glargine 40 units 03/05/24 09:00 03/05/24 08:26 Insulin Glargine (*Bkc) 100 Units/Ml SUB-Q 40 units DAILY JASON Administration Metoclopramide HCl 10 mg 03/04/24 08:00 03/05/24 12:29 Metoclopramide Hcl 10 Mg/10 Ml Soln Udc FEED TUBE Not Given Q6HR [facility] Midodrine 5 mg 03/05/24 13:00 03/05/24 12:29 Midodrine Hcl 2.5 Mg Tablet PO Not Given TID [facility] Multi-Ingred Cream/Lotion/Oil/Oint 1 applic 02/29/24 09:00 03/05/24 08:26 Mineral Oil/White Petrolatum Ointment EACH EYE 1 applic Q12HR JASON Administration Naloxone HCl 0.1 mg 02/28/24 19:15 Naloxone Hcl 0.4 Mg/Ml Vial IV PUSH Q2M PRN Opiate Reversal Pantoprazole Sodium 40 mg 03/02/24 09:00 03/05/24 08:25 Pantoprazole Sodium Iv 40 Mg Vial IV PUSH 40 mg Q12HR JASON Administration Sodium Chloride 10 ml 02/29/24 06:00 03/05/24 14:16 Central Line Flush IV PUSH 10 ml Q8HR JASON Administration Sodium Chloride 20 ml 02/28/24 23:37 Central Line Flush IV PUSH PRN PRN after blood draws Radiology Results: ITS Impressions Lower Extremity CTA 02/28/24 14:54 IMPRESSION: 1. 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 2. Moderate stenosis of right popliteal artery. 3. Osteomyelitis involving first proximal and distal phalanges and head of first metatarsal. Head CT 02/29/24 05:55 Impression: No intracranial hemorrhage, mass, or acute infarct. Stable chronic encephalomalacia in the high left parietal lobe. Atrophy and chronic white matter changes, as above. Chest/Abdomen/Pelvis CTA 02/29/24 06:02 Impression: Extensive right upper lobe consolidation and more mild right middle lobe consolidation, consistent with pneumonia. Consider aspiration pneumonia. Moderate to large right pleural effusion with complete atelectasis of the right lower lobe. Moderate left pleural effusion with minimal left basilar atelectasis. Small pericardial effusion. No definite acute abnormality in the abdomen or pelvis. Chronic compression fractures, as above. Renal Ultrasound 03/03/24 15:45 IMPRESSION: 1. Normal kidneys without hydronephrosis. 2. Small amount of ascites in the abdomen and pelvis. Chest X-Ray 03/05/24 06:07 IMPRESSION: 1. Stable airspace opacities in right lung and left mid and lower lung zones, consistent with pneumonia. 2. Stable small right pleural effusion. Labs Labs: Laboratory Results - last 24 hr 03/04/24 03/04/24 03/04/24 15:34 17:06 23:04 WBC RBC Hgb Hct MCV MCH MCHC RDW Plt Count MPV Immature Gran % (Auto) Neut % (Auto) Lymph % (Auto) [place] % (Auto) Eos % (Auto) Baso % (Auto) Lymph # (Auto) [place] # (Auto) Eos # (Auto) Baso # (Auto) Abs Immat Gran (auto) Absolute Neuts (auto) Absolute Nucleated RBC Nucleated RBC % PT INR Puncture Site ABG pH ABG pCO2 ABG pO2 ABG PO2/FiO2 Ratio ABG HCO3 ABG O2 Saturation ABG O2 Content ABG Base Excess A-a Gradient Oxyhemoglobin Carboxyhemoglobin Methemoglobin Reduced Hemoglobin Total Hemoglobin O2 Delivery Device O2 Liters/Min Minute Volume Vent Rate Vent Mode FiO2 Tidal Volume PEEP Peak Inspir Pressure Pressure Support Sodium 139 Potassium 4.2 Chloride 108 H Carbon Dioxide 24 Anion Gap 7 BUN 52 H Creatinine 1.10 Estim Creat Clear Calc 68 Estimated GFR > 60 Glucose 269 H POC Capillary Glucose 272 H 213 H Lactic Acid Calcium 8.0 L Magnesium Total Bilirubin AST ALT Alkaline Phosphatase Total Protein Albumin Crossmatch 03/05/24 03/05/24 03/05/24 04:44 04:53 05:12 WBC 18.1 H RBC 3.31 L Hgb 9.1 L Hct 28.2 L MCV 85.2 MCH 27.5 MCHC 32.3 RDW 15.6 H Plt Count 456 H MPV 9.4 Immature Gran % (Auto) 1.6 H Neut % (Auto) 85.3 H Lymph % (Auto) 6.1 L [place] % (Auto) 6.6 Eos % (Auto) 0.1 Baso % (Auto) 0.3 Lymph # (Auto) 1.10 [place] # (Auto) 1.2 H Eos # (Auto) 0.0 Baso # (Auto) 0.1 Abs Immat Gran (auto) 0.29 H Absolute Neuts (auto) 15.5 H Absolute Nucleated RBC 0.000 Nucleated RBC % 0.0 PT 18.5 H INR 1.5 Puncture Site Artline ABG pH 7.493 H ABG pCO2 33.7 L ABG pO2 100.2 H ABG PO2/FiO2 Ratio 2.50 ABG HCO3 25.3 ABG O2 Saturation 98.0 ABG O2 Content 14.3 L ABG Base Excess 2.2 A-a Gradient 146.2 Oxyhemoglobin 96.7 Carboxyhemoglobin 1.0 Methemoglobin 0.3 Reduced Hemoglobin 2.0 Total Hemoglobin 10.4 L O2 Delivery Device Ventilator O2 Liters/Min Not Reportable Minute Volume Not Reportable Vent Rate 20 Vent Mode Cmv FiO2 40 Tidal Volume 410 PEEP 12 Peak Inspir Pressure Not Reportable Pressure Support Not Reportable Sodium 140 Potassium 4.5 Chloride 109 H Carbon Dioxide 25 Anion Gap 6 BUN 58 H Creatinine 1.00 Estim Creat Clear Calc 75 Estimated GFR > 60 Glucose 283 H POC Capillary Glucose 250 H Lactic Acid 1.0 Calcium 8.0 L Magnesium 2.9 H Total Bilirubin 0.4 AST 56 ALT 51 H Alkaline Phosphatase 93 Total Protein 6.0 L Albumin 2.8 L Crossmatch 03/05/24 03/05/24 12:04 15:29 WBC RBC Hgb Hct MCV MCH MCHC RDW Plt Count MPV Immature Gran % (Auto) Neut % (Auto) Lymph % (Auto) [place] % (Auto) Eos % (Auto) Baso % (Auto) Lymph # (Auto) [place] # (Auto) Eos # (Auto) Baso # (Auto) Abs Immat Gran (auto) Absolute Neuts (auto) Absolute Nucleated RBC Nucleated RBC % PT INR Puncture Site Artline ABG pH 7.445 ABG pCO2 38.9 ABG pO2 150.6 H ABG PO2/FiO2 Ratio 1.51 ABG HCO3 26.1 H ABG O2 Saturation 99.0 ABG O2 Content 12.0 L ABG Base Excess 2.0 A-a Gradient 523.5 Oxyhemoglobin 97.9 Carboxyhemoglobin Methemoglobin Reduced Hemoglobin Total Hemoglobin 8.5 L O2 Delivery Device Other device O2 Liters/Min Not Reportable Minute Volume Vent Rate Vent Mode FiO2 100 Tidal Volume PEEP Peak Inspir Pressure Pressure Support Sodium Potassium Chloride Carbon Dioxide Anion Gap BUN Creatinine Estim Creat Clear Calc Estimated GFR Glucose POC Capillary Glucose 233 H Lactic Acid Calcium Magnesium Total Bilirubin AST ALT Alkaline Phosphatase Total Protein Albumin Crossmatch See Detail Quality VTE Prophylaxis VTE prophylaxis: pharmacologic ordered
--- NOTE | 2024-03-05 16:46 | SUR.OPER ---
75 cc clear yellow urine emptied from [facility] at 1645
--- NOTE | 2024-03-05 17:28 | PC.NURSE ---
Addendum entered by Eryn Khan RN 03/05/24 18:00: Bedside report received from GABBY Borrero Original Note: Returned from OR per bed
--- NOTE | 2024-03-05 17:33 | W.PM.PROC2 ---
Procedure Note - Detailed Date of Procedure 03/05/24 Pre-op Diagnosis Gangrene, sepsis right foot Post-op Diagnosis Same Procedure Performed Right below-knee amputation with placement of posterior Ortho Glass splint Surgeon Jasson Johns MD Compliance Testing Analyst Keisha VALENTINE Anesthesia General Indications Patient came into the hospital with a gangrenous infected foot. He was admitted and started on antibiotics with plans for a right below-knee amputation the next morning. Unfortunately, the patient probably aspirated and then developed acute cardiac arrest with PEA. He has remained in the intensive care unit on a ventilator but is off vasopressors. 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 Collins, the patient is stable enough to proceed with his right BKA. The gangrenous infected foot is no doubt playing a role in his continued septic condition and ventilator dependence. Findings Very vascular tissues for the posterior flap and BK amputation. Procedure was surprisingly bloody most likely due to the infected nature of the foot. We lost about 500 cc of blood. 2 units of packed cells were administered. There was no hypotension or change in his pulmonary condition. Description of Procedure Patient was brought to the operating room more less directly from the intensive care unit staying on mechanical ventilator. The right foot dressing was left intact but was prepped and draped along with the rest of the leg. We had ample access to the area needed for the below-knee amputation. A posterior flap amputation was planned and the incision marked on the skin. We then started anteriorly and dissected through the muscular fascia and down to the tibia. We dissected around the tibia and essentially used cautery for almost the entire dissection. As mentioned there was quite a bit of bleeding even from venous structures. This is very likely due to the gangrenous infected foot on distally. Clamps and cautery were used to control bleeding as best possible. We dissected around the tibia completely. I used the periosteal elevator and expose the tibial bone. I then used the oscillating saw and divided the tibia just few cm below the anterior tibial tuberosity. Bleeding behind the tibia was controlled with clamps. I then dissected more of the muscular structures including the soleus muscle. Laterally I dissected down and exposed the fibula. I again used the periosteal elevator and removed the periosteum cephalad. I then used the Gigli saw and divided the tibia in the upper aspect of the wound. We then divided a few remaining tendinous and ligamentous attachments. I then used the amputation knife and divided the posterior flap from the rest of the lower leg. Pressure was held over the popliteal vessels which did bleed profusely. The amputated leg was passed off to pathology. Clamps were placed on the popliteal vessels. Suture ties of 2-0 Vicryl the were then used to suture ligate the bleeding vessels. This controlled that bleeding. We then searched the posterior flap and the rest of the into the amputation for bleeders. Most of these bleeders were able to be cauterized although some used 3-0 Vicryl suture ligatures to achieve hemostasis. Once hemostasis was relatively adequate, we irrigated the amputation and thoroughly with warm saline. Some trimming of the posterior flap was required. When this was complete we achieved hemostasis in this area as well. I then used interrupted 2-0 Vicryl suture to close the subcutaneous fascia of the posterior flap to the subcutaneous fascia of the anterior aspect of the amputation wound. There were dog ears on both the medial and lateral sides which required excision of skin and some subcutaneous. These were then closed at the fascial level with 2-0 Vicryl as well. Once the flap had been secured to the into the lower leg, we then used multiple 2-0 nylon sutures to close the skin. All looked good. We cleaned the amputation stump and lower thigh. Xeroform gauze, multiple fluffs, ABDs and Kerlix roll were then used to dress the amputation stump. 4 in Tobi wrap was then applied to dress this as well. Finally we used ortho glass, webril, and 6 in Tobi wraps to create a posterior plaster splint splint. We kept the knee in as close to full extension as we could. The amputation stump was then elevated and the patient was kept intubated and transferred directly to the intensive care unit. Sponge needle counts were correct x2. Estimated Blood Loss -500 Drains No Packing No Pathology Yes (Below-knee amputation stump) Complications None Condition Critical Disposition ICU [facility] Billing Surgery - Charge Forward: Surgery Billing (Right below-knee amputation)
[2024-03-05 18:03] LABS: Anion Gap 3 mmol/L (4-12); Blood Urea Nitrogen 49 mg/dL (9-20); Calcium 7.6 mg/dL (8.4-10.2); Carbon Dioxide 28 mmol/L (22-30); Chloride 112 mmol/L (98-107); Estimated CRCL calculation 83 ml/min; Estimated Glomerular Filt Rate > 60; Glucose 177 mg/dL (65-110); Potassium 3.9 mmol/L (3.4-5.0); Sodium 143 mmol/L (137-145)
--- NOTE | 2024-03-05 18:08 | PC.NURSE ---
Notified Dr. Collins of potassium results of 3.9. New order to hold 1700 dose of Lasix. Resume tube feedings at previous rate of 40ml/hr. Call Dr. Collins with 2000 blood results
[2024-03-05] MEDS: MIDODRINE HCL 2.5 MG TABLET 5 MG PO (18:18)
[2024-03-05 20:26] LABS: Hematocrit 28.8 % (42.0-52.0); Hemoglobin 9.3 g/dL (14.0-18.0); Mean Corpuscular HGB Conc 32.3 g/dl (32-36); Mean Corpuscular Hemoglobin 28.3 pg (26-34); Mean Corpuscular Volume 87.5 fl (80-100); Mean Platelet Volume 9.1 fl (7.4-10.4); Platelet Count Result 369 k/mm3 (150-375); Red Blood Count 3.29 M/mm3 (4.6-6.20); Red Cell Distribution Width 15.8 % (11.5-14.5); White Blood Count 22.7 K/mm3 (4.5-10.0)
[2024-03-05 20:54] LABS: INR 1.5; Prothrombin Time 18.8 Seconds (11.1-14.7)
[2024-03-05 20:56] LABS: Partial Thromboplastin Time 45.9 Seconds (22.3-36.8)
[2024-03-05 21:04] LABS: Vancomycin Trough 18.2 ug/mL (10.0-20.0)
[2024-03-05] MEDS: VANCOMYCIN 1,500 MG/NS 500 ML 1,500 MG/500 ML BAG 250 MG IVPB (21:48)
[2024-03-06] VITALS (38 sets, daily range): BP systolic 113–138; BP diastolic 48–61; PULSE 83–134; RESP 14–24; TEMP 37.2–38.1; O2SAT 96–100
[2024-03-06] MEDS: METOCLOPRAMIDE HCL 10 MG/10 ML SOLN UDC FEED TUBE ×5 (00:10→23:47)
[2024-03-06 00:32] LABS: Glucose Point of Care 170 mg/dl (65-105)
[2024-03-06] MEDS: IPRATROPIUM 0.5 MG/ALBUTEROL SULFATE 2.5 MG AMPUL.NEB 3 ML INHALATION ×4 (02:07→20:07)
[2024-03-06 05:28] LABS: Alveolar/Arterial O2 Gradient 93.2 mmHg; Base Excess ABG 1.1 mEq/l (+/-2.0); Carboxyhemoglobin 0.8 % THb (0-2.0); Fractional Inspired Oxygen 30 %; HCO3 ABG 24.4 mEq/l (22.0-26.0); Methemoglobin ABG 0.3 %THb (0-1.5); Oxygen Content ABG 13.3 %vol (16.0-22.0); Oxygen Saturation ABG 96.7 % (95.0-100.0); Oxyhemoglobin 94.9 % THb (90.0-100.0); PCO2 ABG 33.7 mmHg (35.0-45.0); PO2 ABG 81.1 mmHg (80.0-100.0); Total Hemoglobin 9.9 g/dL (12.0-18.0); pH ABG 7.478 (7.350-7.450)
[2024-03-06 05:30] LABS: Device VENTILATOR; Site Drawn ARTLINE
[2024-03-06 05:31] LABS: Arterial Blood Gas PEEP 10 cmH2O; Arterial Blood Gas Tidal Volume 410 ml; Arterial Blood Gas Vent Mode CMV; Arterial Blood Gas Ventilator rate 18 /MIN
[2024-03-06 05:36] LABS: Hematocrit 27.6 % (42.0-52.0); Hemoglobin 8.9 g/dL (14.0-18.0); Mean Corpuscular HGB Conc 32.2 g/dl (32-36); Mean Corpuscular Hemoglobin 28.2 pg (26-34); Mean Corpuscular Volume 87.3 fl (80-100); Mean Platelet Volume 9.1 fl (7.4-10.4); Platelet Count Result 344 k/mm3 (150-375); Red Blood Count 3.16 M/mm3 (4.6-6.20); White Blood Count 22.4 K/mm3 (4.5-10.0)
[2024-03-06 05:46] LABS: Alanine Aminotransferase 31 U/L (6-50); Albumin Level 2.3 g/dL (3.5-5.1); Alkaline Phosphatase 78 U/L (38-126); Anion Gap 2 mmol/L (4-12); Aspartate Amino Transferase 40 U/L (17-59); Bilirubin,Total 0.4 mg/dL (0.2-1.3); Blood Urea Nitrogen 43 mg/dL (9-20); Calcium 7.6 mg/dL (8.4-10.2); Carbon Dioxide 28 mmol/L (22-30); Chloride 113 mmol/L (98-107); Estimated CRCL calculation 93 ml/min; Estimated Glomerular Filt Rate > 60; Glucose 171 mg/dL (65-110); Magnesium 2.5 mg/dL (1.6-2.3); Potassium 4.1 mmol/L (3.4-5.0); Sodium 143 mmol/L (137-145)
[2024-03-06] MEDS: CENTRAL LINE FLUSH 10 ML IV PUSH ×3 (05:58→21:21)
[2024-03-06] MEDS: MEROPENEM 1 GM/NS 100 ML 1 GM/100 ML BAG IVPB ×3 (05:58→21:20)
[2024-03-06] MEDS: HEPARIN SODIUM 5,000 UNITS/ML VIAL 5000 UNITS SUB-Q ×3 (05:58→21:20)
[2024-03-06] MEDS: FENTANYL 2,500MCG/NS250ML(*CRX 2,500 MCG/250 ML BAG 15 MCG IV CONT (07:20)
[2024-03-06] MEDS: MIDAZOLAM 100MG/NS 100ML(*CRX) 100 MG/100 ML BAG IV CONT (07:22)
[2024-03-06] MEDS: PANTOPRAZOLE SODIUM IV 40 MG VIAL IV PUSH ×2 (09:19→21:20)
[2024-03-06] MEDS: ASPIRIN 81 MG CHEWABLE TABLET PO (09:19)
[2024-03-06] MEDS: ATORVASTATIN 40 MG TABLET 80 MG PO (09:19)
[2024-03-06] MEDS: MIDODRINE HCL 2.5 MG TABLET 5 MG PO ×3 (09:19→17:33)
[2024-03-06] MEDS: MINERAL OIL/WHITE PETROLATUM OINTMENT 1 APPLIC EACH EYE ×2 (09:19→21:20)
[2024-03-06] MEDS: FUROSEMIDE INJ 100 MG/10 ML VIAL 80 MG IV PUSH ×2 (09:19→17:32)
[2024-03-06] MEDS: CALCIUM GLUC 2,000 MG/NS 100ML 2,000 MG/100 ML BAG 100 MG IVPB (09:19)
--- NOTE | 2024-03-06 09:23 | WPDANESPN ---
Anes - Prog Note Post-Op Date/Time: 03/06/24 09:23 Cardiovascular status: other Respiratory status: other Airway patency: other Mental status: other Post-Op hydration status: other Vital Signs: Last Vital Signs Temp 38.1 C H 03/06/24 08:00 Pulse 122 H 03/06/24 08:00 Resp 19 03/06/24 08:00 BP 124/58 L 03/06/24 08:00 Pulse Ox 96 03/06/24 08:00 O2 Del Method Mechanical Ventilation 03/06/24 07:19 FiO2 30 03/06/24 07:19 Pain Score (VAS): unknown I/O: Intake & Output 03/05/24 03/06/24 03/06/24 23:59 07:59 15:59 Intake Total 1463.7 778.3 12.5 Output Total 350 800 Balance 1113.7 -21.7 12.5 Laboratory Tests 03/06/24 05:18 03/06/24 05:18 03/05/24 03/05/24 03/05/24 12:04 15:29 17:38 WBC RBC Hgb Hct MCV MCH MCHC RDW Plt Count MPV PT INR APTT Puncture Site Artline ABG pH 7.445 ABG pCO2 38.9 ABG pO2 150.6 H ABG PO2/FiO2 Ratio 1.51 ABG HCO3 26.1 H ABG O2 Saturation 99.0 ABG O2 Content 12.0 L ABG Base Excess 2.0 A-a Gradient 523.5 Oxyhemoglobin 97.9 Carboxyhemoglobin Methemoglobin Reduced Hemoglobin Total Hemoglobin 8.5 L O2 Delivery Device Other device O2 Liters/Min Not Reportable Minute Volume Vent Rate Vent Mode FiO2 100 Tidal Volume PEEP Peak Inspir Pressure Pressure Support Sodium 143 Potassium 3.9 Chloride 112 H Carbon Dioxide 28 Anion Gap 3 L BUN 49 H Creatinine 0.90 Estim Creat Clear Calc 83 Estimated GFR > 60 Glucose 177 H POC Capillary Glucose 233 H Calcium 7.6 L Magnesium Total Bilirubin AST ALT Alkaline Phosphatase Total Protein Albumin Vancomycin Trough Blood Type O Positive Antibody Screen Negative Crossmatch See Detail 03/05/24 03/06/24 03/06/24 20:18 00:07 05:18 WBC 22.7 H 22.4 H RBC 3.29 L 3.16 L Hgb 9.3 L 8.9 L Hct 28.8 L 27.6 L MCV 87.5 87.3 MCH 28.3 28.2 MCHC 32.3 32.2 RDW 15.8 H 16.0 H Plt Count 369 344 MPV 9.1 9.1 PT 18.8 H INR 1.5 APTT 45.9 H Puncture Site Artline ABG pH 7.478 H ABG pCO2 33.7 L ABG pO2 81.1 ABG PO2/FiO2 Ratio 2.70 ABG HCO3 24.4 ABG O2 Saturation 96.7 ABG O2 Content 13.3 L ABG Base Excess 1.1 A-a Gradient 93.2 Oxyhemoglobin 94.9 Carboxyhemoglobin 0.8 Methemoglobin 0.3 Reduced Hemoglobin 4.0 Total Hemoglobin 9.9 L O2 Delivery Device Ventilator O2 Liters/Min Not Reportable Minute Volume Not Reportable Vent Rate 18 Vent Mode Cmv FiO2 30 Tidal Volume 410 PEEP 10 Peak Inspir Pressure Not Reportable Pressure Support Not Reportable Sodium 143 Potassium 4.1 Chloride 113 H Carbon Dioxide 28 Anion Gap 2 L BUN 43 H Creatinine 0.80 Estim Creat Clear Calc 93 Estimated GFR > 60 Glucose 171 H POC Capillary Glucose 170 H Calcium 7.6 L Magnesium 2.5 H Total Bilirubin 0.4 AST 40 ALT 31 Alkaline Phosphatase 78 Total Protein 5.0 L Albumin 2.3 L Vancomycin Trough 18.2 Blood Type Antibody Screen Crossmatch Patient Feedback: Patient satisfied with anesthetic care.
[2024-03-06] MEDS: INSULIN GLARGINE (*BKC) 100 UNITS/ML 40 UNITS SUB-Q (09:41)
[2024-03-06] MEDS: ALTEPLASE 2 MG VIAL (CATHFLO) IV PUSH ×2 (09:55→13:10)
--- NOTE | 2024-03-06 10:48 | PCFNICU ---
ICU Rounding Note: Pt current nutrition is Glucerna 1.2 at 40 ml/hr Nutrition recommendation: goal rate 60 ml/hr Last recorded weight is 98.6 kg, stable Bowel Motility: +BM reported 03/06 Labs Reviewed:Mg 2.5, Glu 171, BUN 43, Alb 2.3,Hct 27.6,Hgb 8.9 Meds Noted: Reglan, NovoLog, Lantus, Fentanyl, Versed Skin: Right-BKA, Stage II pressure ulcer-saccum. Additional Notes:Patient remains on mechanical vent. Tube feedings have been restarted of Glucerna 1.2 at 40 ml/hr with plans to advance to goal rate of 60 ml/hr. Right BKA-03/05. Protein Modular of Minh BID given via flush 2/2 to wounds. Agree with diet orders. Following daily in ICU rounds. Will monitor weight, labs, skin, tube feedings, meds, every Sunday and Sunday.
--- NOTE | 2024-03-06 11:11 | WPDINTPN ---
Progress Note: A&P Assessment and Plan (1) Acute respiratory failure with hypoxia: Code(s): J96.01 - Acute respiratory failure with hypoxia Status: Acute Assessment and Plan: Acute respiratory failure likely related to cardiac arrest, aspiration pneumonia, NSTEMI, hypoxia, septic shock Worsening likely secondary to ARDS versus pulmonary edema -currently CMV mode of ventilation, peep of 10, 30 % FiO2. Decrease PEEP to 8 -chest x-ray reviewed. Advance ET tube by 2 cm -continue bronchodilators -on fentanyl and Versed infusion for sedation. Pulse wean down sedation -off Nimbex for neuromuscular brayden -continue diuresis today (2) Cardiac arrest with pulseless electrical activity: Code(s): I46.9 - Cardiac arrest, cause unspecified Status: Acute Assessment and Plan: Cardiac arrest, secondary to unknown etiology. Possible aspiration pneumonia, NSTEMI, hypoxia, septic shock, infection -see code blue sheet for the details -patient currently intubated, vasopressors for blood pressure support have been weaned off -appreciate cardiology following the patient 02/29/2024 echocardiogram Summary 1. Technically difficult study with limited views. 2. Left ventricular chamber dimension is normal. 3. Left ventricular systolic function is mildly reduced, estimated at 45-50%. The apex appears to be hypokinetic. 4. There is mildly increased left ventricular wall thickness. 5. The left ventricular diastolic function is grade I diastolic dysfunction. 6. Right ventricular systolic function is normal. 7. Left atrial chamber dimension is moderately enlarged. 8. There is mild to moderate tricuspid valve regurgitation. 9. There is small anterior pericardial effusion. (3) Septic shock: Code(s): A41.9 - Sepsis, unspecified organism; R65.21 - Severe sepsis with septic shock Status: Acute Assessment and Plan: Patient in shock, likely related to the gangrene, aspiration pneumonia, status post cardiac arrest 02/28/2024: Blood cultures have been obtained and negative till now -lactic acid has normalized -patient has been adequately fluid-resuscitated -OFF Levophed -wean stress dose steroids -continue midodrine -status post albumin for intravascular volume expansion (4) NSTEMI (non-ST elevated myocardial infarction): Code(s): I21.4 - Non-ST elevation (NSTEMI) myocardial infarction Status: Acute Assessment and Plan: Increasing troponins, -EKG showed sinus rhythm with T-wave changes in V1 to V5 -appreciate cardiology evaluation and recommendation -Continue aspirin and high-dose a statin -will hold Brilinta -resume beta-brayden, losartan -03/02 heparin infusion was discontinued after 48 hours for NSTEMI by cardiology (5) Gangrene of right foot: Code(s): I96 - Gangrene, not elsewhere classified Status: Acute Assessment and Plan: CTA showed peripheral arterial disease with total occlusion of the right anterior and posterior tibial arteries and right peroneal artery with distal reconstitution of peroneal artery. This extensive gangrene of the right foot with gas seen on CT of the foot. General surgery spoke to the patient in the ER on the day of admission on 02/27 patient at that time agreed for below-knee amputation. Plan was to do a below-knee amputation on 02/29/2024 but patient had a cardiac arrest that night secondary to sepsis. Surgery at that time was deferred. Patient now is intubated sedated and unable to sign his consent.. Patient has no family and for many years at the residential has had no visitor. He has 1 son which no one has been able to get hold off right several attempts. Considering patient has gangrene of the foot with no vascular supply leading to sepsis and if untreatable lead to his , Dr. Johns will proceed with amputation today. Ok and Dr. Johns has signed 2 physician consent considering patient's clearly expressed wishes prior to cardiac arrest at the time of admission, his current situation and inability to sign the consent form by himself at this time. 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 Postop management per General surgery -continue antibiotics for necrotizing gas gangrene. Patient on meropenem and vancomycin which was started on 02/28/2024 -complete 5 days of clindamycin (6) Osteomyelitis of toe of right foot: Code(s): M86.9 - Osteomyelitis, unspecified Status: Chronic Assessment and Plan: As above (7) Peripheral vascular disease: Code(s): I73.9 - Peripheral vascular disease, unspecified Status: Chronic Assessment and Plan: Patient has history of peripheral vascular disease, coronary artery disease -started on aspirin, patient will require Brilinta since he had a STEMI in 2020 but currently holding Brilinta due to surgery and bleeding (8) Type 2 diabetes mellitus: Qualifiers: 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 complication status: with other specified complication 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 insulin use: with termite technician use Qualified Code(s): E11.69 - Type 2 diabetes mellitus with other specified complication; 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 Patient has no family available. Care coordination is trying to locate patient's son Critical Care Time Spent: 32 minutes Due to a high probability of clinically significant, life threatening deterioration, the patient required my highest level of preparedness to intervene emergently and I personally spent this critical care time directly and personally managing the patient. This critical care time included obtaining a history; examining the patient; pulse oximetry; ordering and review of studies; arranging urgent treatment with development of a management plan; evaluation of patient's response to treatment; frequent reassessment; and discussions with other providers. It was exclusive of separately billable procedures and treating other patients and teaching time. Please see Assessment and Plan section and the rest of the note for further information on patient assessment and treatment This dictation may have been done utilizing a voice recognition system. Attempts have been made to correct errors. However, there may be uncorrected grammatical, spelling, and recognitions errors present. Subjective Date/time seen: 03/06/24 Overnight events reviewed. Low-grade fever this morning Continues to be on mechanical ventilation 30% FiO2 peep of 10 Off vasopressors Continues to be sedated with fentanyl Versed Tolerating tube feeds. Good urine output Other Vitals acceptable Interval history: Reason for consult: Status post PEA arrest, right foot gangrene with cellulitis, shock 03/05 Right below-knee amputation with placement of posterior Ortho Glass splint, to unit PRBC transfused Review of Systems Review of Systems: ROS unobtainable: Yes unobtainable due to endotracheal tube, unobtainable due to medical condition and unobtainable due to mental status Exam Narrative: General: Patient intubated and sedated HEENT:, pupils are equal and reactive from a sclera is clear Neck:? supple Respiratory:? Coarse breath sounds bilaterally, decreased at bases, adequate air entry Cardiac:? S1-S2 normal, regular rate and rhythm Abdomen:? Soft, nontender, nondistended, hypoactive bowel sounds Extremities:? Right BKA stump under the dressing Neuro:? Patient is intubated, sedated, PERRL Skin:? Patient has maceration of his perianal area, and states to pressure ulcer on his buttocks. Psych:? Unable to assess at this time Objective Data Vital Signs Vital Signs: Vital Signs - 24 hr 03/05/24 12:00 03/05/24 12:00 03/05/24 12:05 Temperature Pulse Rate 68 Respiratory Rate 18 Blood Pressure Pulse Oximetry 99 Oxygen Delivery Mechanical Ventilation Fraction of Inspired Oxygen 30 30 03/05/24 12:05 03/05/24 12:00 03/05/24 12:00 Temperature 36.8 C Pulse Rate 68 71 66 Respiratory Rate 18 16 Blood Pressure 129/55 L Pulse Oximetry 99 Oxygen Delivery Fraction of Inspired Oxygen 03/05/24 13:24 03/05/24 13:24 03/05/24 13:32 Temperature Pulse Rate 88 88 85 Respiratory Rate 20 20 Blood Pressure Pulse Oximetry 97 Oxygen Delivery Mechanical Ventilation Fraction of Inspired Oxygen 30 03/05/24 14:05 03/05/24 14:15 03/05/24 14:05 Temperature Pulse Rate 92 92 92 Respiratory Rate 18 18 18 Blood Pressure Pulse Oximetry Oxygen Delivery Fraction of Inspired Oxygen 03/05/24 14:05 03/05/24 14:00 03/05/24 14:00 Temperature 37.0 C Pulse Rate 92 92 92 Respiratory Rate 18 18 Blood Pressure 121/53 L Pulse Oximetry 96 Oxygen Delivery Fraction of Inspired Oxygen 03/05/24 16:50 03/05/24 17:28 03/05/24 17:30 Temperature Pulse Rate 113 H Respiratory Rate Blood Pressure Pulse Oximetry 96 95 Oxygen Delivery Mechanical Ventilation Mechanical Ventilation Mechanical Ventilation Fraction of Inspired Oxygen 30 30 30 03/05/24 17:30 03/05/24 18:02 03/05/24 18:03 Temperature Pulse Rate 102 H 102 H Respiratory Rate 18 18 Blood Pressure Pulse Oximetry Oxygen Delivery Fraction of Inspired Oxygen 30 03/05/24 18:00 03/05/24 18:00 03/05/24 17:30 Temperature 37.1 C 37.2 C Pulse Rate 105 H 104 H 113 H Respiratory Rate 18 18 Blood Pressure 108/52 L 133/59 L Pulse Oximetry 96 98 Oxygen Delivery Fraction of Inspired Oxygen 03/05/24 17:45 03/05/24 18:15 03/05/24 18:45 Temperature 37.2 C 37.1 C 37.0 C Pulse Rate 109 H 99 94 Respiratory Rate 18 18 18 Blood Pressure 114/51 L 108/52 L 112/52 L Pulse Oximetry 95 96 97 Oxygen Delivery Fraction of Inspired Oxygen 03/05/24 19:22 03/05/24 20:06 03/05/24 20:06 Temperature 36.9 C Pulse Rate 92 93 93 Respiratory Rate 18 20 Blood Pressure 121/55 L Pulse Oximetry 98 99 Oxygen Delivery Mechanical Ventilation Fraction of Inspired Oxygen 30 03/05/24 20:00 03/05/24 20:00 03/05/24 20:00 Temperature Pulse Rate 78 78 Respiratory Rate 20 20 Blood Pressure Pulse Oximetry Oxygen Delivery Fraction of Inspired Oxygen 30 03/05/24 20:00 03/05/24 20:00 03/05/24 22:00 Temperature 36.9 C 37.1 C Pulse Rate 92 103 H Respiratory Rate 18 18 Blood Pressure 122/54 L 127/54 L Pulse Oximetry 98 99 99 Oxygen Delivery Mechanical Ventilation Fraction of Inspired Oxygen 30 03/05/24 22:00 03/05/24 22:00 03/05/24 23:20 Temperature Pulse Rate 103 H 103 H 98 Respiratory Rate 18 18 Blood Pressure Pulse Oximetry 99 Oxygen Delivery Mechanical Ventilation Fraction of Inspired Oxygen 30 03/05/24 20:16 03/05/24 20:15 03/05/24 23:15 Temperature 36.7 C 37.1 C Pulse Rate 95 76 100 Respiratory Rate 20 18 18 Blood Pressure 130/52 L 134/60 Pulse Oximetry 99 99 Oxygen Delivery Fraction of Inspired Oxygen 03/05/24 21:15 03/05/24 22:15 03/06/24 00:00 Temperature 37.1 C 37.1 C Pulse Rate 109 H 100 94 Respiratory Rate 18 18 18 Blood Pressure 123/55 L 134/60 Pulse Oximetry 99 99 Oxygen Delivery Fraction of Inspired Oxygen 03/06/24 00:00 03/05/24 20:00 03/05/24 22:00 Temperature Pulse Rate 94 94 103 H Respiratory Rate 18 Blood Pressure Pulse Oximetry Oxygen Delivery Fraction of Inspired Oxygen 03/06/24 00:00 03/06/24 00:00 03/06/24 00:00 Temperature 37.2 C Pulse Rate 99 Respiratory Rate 18 Blood Pressure 126/56 L Pulse Oximetry 99 99 Oxygen Delivery Mechanical Ventilation Fraction of Inspired Oxygen 30 30 03/06/24 00:00 03/06/24 02:10 03/06/24 02:11 Temperature Pulse Rate 99 96 96 Respiratory Rate 19 Blood Pressure Pulse Oximetry 100 Oxygen Delivery Mechanical Ventilation Fraction of Inspired Oxygen 30 03/06/24 02:00 03/06/24 02:00 03/06/24 02:00 Temperature 37.4 C Pulse Rate 96 96 96 Respiratory Rate 18 18 Blood Pressure 125/54 L Pulse Oximetry 100 Oxygen Delivery Fraction of Inspired Oxygen 03/06/24 02:00 03/06/24 04:00 03/06/24 04:00 Temperature 37.8 C H Pulse Rate 96 105 H 105 H Respiratory Rate 18 21 H 18 Blood Pressure 125/55 L Pulse Oximetry 98 Oxygen Delivery Fraction of Inspired Oxygen 03/06/24 04:00 03/06/24 05:26 03/06/24 02:20 Temperature Pulse Rate 105 H 105 H 97 Respiratory Rate 18 22 H 19 Blood Pressure Pulse Oximetry Oxygen Delivery Fraction of Inspired Oxygen 03/06/24 05:33 03/06/24 06:00 03/06/24 06:00 Temperature Pulse Rate 102 H 106 H 106 H Respiratory Rate 18 18 Blood Pressure Pulse Oximetry 98 Oxygen Delivery Mechanical Ventilation Fraction of Inspired Oxygen 30 03/06/24 06:46 03/06/24 04:00 03/06/24 04:00 Temperature Pulse Rate 114 H Respiratory Rate 22 H Blood Pressure Pulse Oximetry 99 Oxygen Delivery Mechanical Ventilation Fraction of Inspired Oxygen 30 30 03/06/24 06:00 03/06/24 04:00 03/06/24 06:00 Temperature 37.8 C H Pulse Rate 105 H 99 105 H Respiratory Rate 18 Blood Pressure 119/55 L Pulse Oximetry 99 Oxygen Delivery Fraction of Inspired Oxygen 03/06/24 07:19 03/06/24 07:00 03/06/24 07:10 Temperature Pulse Rate 126 H 126 H 128 H Respiratory Rate 19 18 Blood Pressure Pulse Oximetry 100 Oxygen Delivery Mechanical Ventilation Fraction of Inspired Oxygen 30 03/06/24 07:20 03/06/24 07:20 03/06/24 07:22 Temperature Pulse Rate 134 H 134 H 129 H Respiratory Rate 19 19 19 Blood Pressure Pulse Oximetry Oxygen Delivery Fraction of Inspired Oxygen 03/06/24 07:22 03/06/24 08:00 03/06/24 08:00 Temperature 38.1 C H Pulse Rate 129 H 121 H 122 H Respiratory Rate 19 17 19 Blood Pressure 124/58 L Pulse Oximetry 96 Oxygen Delivery Fraction of Inspired Oxygen 03/06/24 08:00 03/06/24 09:43 03/06/24 08:00 Temperature Pulse Rate 122 H 106 H Respiratory Rate 19 16 Blood Pressure Pulse Oximetry 96 Oxygen Delivery Mechanical Ventilation Fraction of Inspired Oxygen 30 03/06/24 08:00 03/06/24 10:00 03/06/24 10:00 Temperature Pulse Rate 102 H 102 H Respiratory Rate 16 16 Blood Pressure Pulse Oximetry Oxygen Delivery Fraction of Inspired Oxygen 30 03/06/24 08:00 03/06/24 10:00 03/06/24 10:00 Temperature 37.8 C H Pulse Rate 118 H 102 H 102 H Respiratory Rate 16 Blood Pressure 114/53 L Pulse Oximetry 97 Oxygen Delivery Fraction of Inspired Oxygen 03/06/24 10:04 Temperature Pulse Rate 104 H Respiratory Rate Blood Pressure Pulse Oximetry 97 Oxygen Delivery Mechanical Ventilation Fraction of Inspired Oxygen 30 Intake/Output Intake/Output: Intake & Output 03/03/24 03/04/24 03/05/24 03/06/24 23:59 23:59 23:59 23:59 Intake Total 2079.4 2613.8 2823.0 927.4 Output Total 1355 2150 2950 800 Balance 724.4 463.8 -127.0 127.4 Meds/Results Medications: Active Medications Generic Name Dose Route Start Last Admin Trade Name Freq PRN Reason Stop Dose Admin Acetaminophen 500 mg 02/28/24 19:15 Acetaminophen 500 Mg Tablet PO Q6H PRN Pain Rated 1-3 Albuterol/Ipratropium 3 ml 02/29/24 02:00 03/06/24 06:55 Ipratropium 0.5 Mg/Albuterol Sulfate 2.5 Mg Ampul.Neb 3 Ml INHALATION 3 ml Q6HRT JASON Administration Alteplase, Recombinant 2 mg 03/06/24 09:45 03/06/24 09:55 Alteplase 2 Mg Vial (Cathflo) IV PUSH 2 mg ONCE PRN Administration Line Occlusion Aspirin 81 mg 03/01/24 08:00 03/06/24 09:19 Aspirin 81 Mg Chewable Tablet PO 81 mg DAILY@0800 JASON Administration Atorvastatin Calcium 80 mg 03/01/24 09:00 03/06/24 09:19 Atorvastatin 40 Mg Tablet PO 80 mg DAILY JASON Administration Dextrose 12.5 gm 02/28/24 19:23 Dextrose 50% 25 Gm/50 Ml Syringe IV PUSH PRN PRN Hypoglycemia Protocol Furosemide 80 mg 03/06/24 09:00 03/06/24 09:19 Furosemide Inj 100 Mg/10 Ml Vial IV PUSH 03/06/24 17:01 80 mg BID JASON Administration Glucagon 1 mg 02/28/24 19:23 Glucagon For Inj 1 Mg Vial IM PRN PRN Hypoglycemia Protocol Glucose 15 gm 02/28/24 19:23 Glucose Oral Gel 15 Gm Of Glucse In 37.5 Gm Tube PO PRN PRN Hypoglycemia Protocol Heparin Sodium (Porcine) 5,000 units 03/03/24 14:00 03/06/24 05:58 Heparin Sodium 5,000 Units/Ml Vial SUB-Q 5,000 units Q8HR JASON Administration Hydralazine HCl 10 mg 03/03/24 15:19 Hydralazine Hcl 20 Mg/Ml Vial IV PUSH Q4HR PRN Hypertension Dextrose 1,000 mls @ 100 mls/hr 02/28/24 19:23 Dextrose 5% 1,000 Ml IVPB PRN PRN Hypoglycemia Protocol Fentanyl Citrate 2,500 mcg in 250 mls @ 10 mls/hr 02/28/24 21:20 03/06/24 10:00 Fentanyl 2,500 Mcg/Ns 250 Ml IV CONT 100 mcg/hr .Q25H JASON 10 mls/hr Titration Protocol 100 MCG/HR Midazolam HCl 100 mg in 100 mls @ 4 mls/hr 02/28/24 21:20 03/06/24 10:00 Versed 100 Mg/Ns 100 Ml IV CONT 4 mg/hr .Q25H JASON 4 mls/hr Titration Protocol 4 MG/HR Meropenem 1 gm in 100 mls @ 200 mls/hr 02/28/24 22:00 03/06/24 06:28 IVPB Infused Q8H JASON Infusion Vancomycin HCl 1,500 mg in 500 mls @ 250 mls/hr 03/03/24 22:00 03/05/24 23:48 Vancomycin 1,500 Mg/Ns 500 Ml IVPB Infused Q24H JASON Infusion Insulin Aspart 3 - 6 units 03/01/24 00:00 03/06/24 05:59 Insulin Aspart (*Bkc) 100 Units/Ml SUB-Q Not Given Q6H JASON Protocol Insulin Glargine 40 units 03/05/24 09:00 03/06/24 09:41 Insulin Glargine (*Bkc) 100 Units/Ml SUB-Q 40 units DAILY JASON Administration Metoclopramide HCl 10 mg 03/04/24 08:00 03/06/24 05:58 Metoclopramide Hcl 10 Mg/10 Ml Soln Udc FEED TUBE 10 mg Q6HR JASON Administration Midodrine 5 mg 03/05/24 13:00 03/06/24 09:19 Midodrine Hcl 2.5 Mg Tablet PO 5 mg TID JASON Administration Multi-Ingred Cream/Lotion/Oil/Oint 1 applic 02/29/24 09:00 03/06/24 09:19 Mineral Oil/White Petrolatum Ointment EACH EYE 1 applic Q12HR JASON Administration Pantoprazole Sodium 40 mg 03/02/24 09:00 03/06/24 09:19 Pantoprazole Sodium Iv 40 Mg Vial IV PUSH 40 mg Q12HR JASON Administration Sodium Chloride 10 ml 02/29/24 06:00 03/06/24 05:58 Central Line Flush IV PUSH 10 ml Q8HR JASON Administration Sodium Chloride 20 ml 02/28/24 23:37 Central Line Flush IV PUSH PRN PRN after blood draws Radiology Results: ITS Impressions Lower Extremity CTA 02/28/24 14:54 IMPRESSION: 1. 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 2. Moderate stenosis of right popliteal artery. 3. Osteomyelitis involving first proximal and distal phalanges and head of first metatarsal. Head CT 02/29/24 05:55 Impression: No intracranial hemorrhage, mass, or acute infarct. Stable chronic encephalomalacia in the high left parietal lobe. Atrophy and chronic white matter changes, as above. Chest/Abdomen/Pelvis CTA 02/29/24 06:02 Impression: Extensive right upper lobe consolidation and more mild right middle lobe consolidation, consistent with pneumonia. Consider aspiration pneumonia. Moderate to large right pleural effusion with complete atelectasis of the right lower lobe. Moderate left pleural effusion with minimal left basilar atelectasis. Small pericardial effusion. No definite acute abnormality in the abdomen or pelvis. Chronic compression fractures, as above. Renal Ultrasound 03/03/24 15:45 IMPRESSION: 1. Normal kidneys without hydronephrosis. 2. Small amount of ascites in the abdomen and pelvis. Chest X-Ray 03/06/24 06:04 IMPRESSION: 1. Diffuse lung disease with worsening on the left, consistent with pneumonia. 2. Stable small right pleural effusion. Labs Labs: Laboratory Results - last 24 hr 03/05/24 03/05/24 03/05/24 12:04 15:29 17:38 WBC RBC Hgb Hct MCV MCH MCHC RDW Plt Count MPV PT INR APTT Puncture Site Artline ABG pH 7.445 ABG pCO2 38.9 ABG pO2 150.6 H ABG PO2/FiO2 Ratio 1.51 ABG HCO3 26.1 H ABG O2 Saturation 99.0 ABG O2 Content 12.0 L ABG Base Excess 2.0 A-a Gradient 523.5 Oxyhemoglobin 97.9 Carboxyhemoglobin Methemoglobin Reduced Hemoglobin Total Hemoglobin 8.5 L O2 Delivery Device Other device O2 Liters/Min Not Reportable Minute Volume Vent Rate Vent Mode FiO2 100 Tidal Volume PEEP Peak Inspir Pressure Pressure Support Sodium 143 Potassium 3.9 Chloride 112 H Carbon Dioxide 28 Anion Gap 3 L BUN 49 H Creatinine 0.90 Estim Creat Clear Calc 83 Estimated GFR > 60 Glucose 177 H POC Capillary Glucose 233 H Calcium 7.6 L Magnesium Total Bilirubin AST ALT Alkaline Phosphatase Total Protein Albumin Vancomycin Trough Blood Type O Positive Antibody Screen Negative Crossmatch See Detail 03/05/24 03/06/24 03/06/24 20:18 00:07 05:18 WBC 22.7 H 22.4 H RBC 3.29 L 3.16 L Hgb 9.3 L 8.9 L Hct 28.8 L 27.6 L MCV 87.5 87.3 MCH 28.3 28.2 MCHC 32.3 32.2 RDW 15.8 H 16.0 H Plt Count 369 344 MPV 9.1 9.1 PT 18.8 H INR 1.5 APTT 45.9 H Puncture Site Artline ABG pH 7.478 H ABG pCO2 33.7 L ABG pO2 81.1 ABG PO2/FiO2 Ratio 2.70 ABG HCO3 24.4 ABG O2 Saturation 96.7 ABG O2 Content 13.3 L ABG Base Excess 1.1 A-a Gradient 93.2 Oxyhemoglobin 94.9 Carboxyhemoglobin 0.8 Methemoglobin 0.3 Reduced Hemoglobin 4.0 Total Hemoglobin 9.9 L O2 Delivery Device Ventilator O2 Liters/Min Not Reportable Minute Volume Not Reportable Vent Rate 18 Vent Mode Cmv FiO2 30 Tidal Volume 410 PEEP 10 Peak Inspir Pressure Not Reportable Pressure Support Not Reportable Sodium 143 Potassium 4.1 Chloride 113 H Carbon Dioxide 28 Anion Gap 2 L BUN 43 H Creatinine 0.80 Estim Creat Clear Calc 93 Estimated GFR > 60 Glucose 171 H POC Capillary Glucose 170 H Calcium 7.6 L Magnesium 2.5 H Total Bilirubin 0.4 AST 40 ALT 31 Alkaline Phosphatase 78 Total Protein 5.0 L Albumin 2.3 L Vancomycin Trough 18.2 Blood Type Antibody Screen Crossmatch Quality VTE Prophylaxis VTE prophylaxis: pharmacologic ordered
[2024-03-06 11:18] LABS: Chloride Rand Ur 37 mmol/L (32-290); Chloride/Creatinine Rand Ur 51 (23-275); Creatinine Random Urine 73 mg/dL (20-320)
--- NOTE | 2024-03-06 12:45 | PC.NURSE ---
0940: Dr. Collins at bedside assessing pt. RN notified MD that blue port on CVC is unable to be flushed or draw back blood. MD assesses line with the same results as RN. 0945: Order for Cathflo obtained. 0955: Cathflo attempted to be instilled in blue port (RN unsure if any medication was able to be instilled) with dwell time of 120 minutes. Vascular patient access associate notified of situation. 1155: RN reassess blue port. Unable to withdraw any substance, and unable to flush line. MD notified with new order to try Cathflo again. Vascular patient access associate notified of new order and will come assess line.
[2024-03-06 12:46] LABS: Glucose Point of Care 169 mg/dl (65-105)
--- NOTE | 2024-03-06 13:01 | PM.PNGS ---
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 He is currently on IV Meropenem and Vancomycin for antibiotics. Postop dressing will stay in place until next week. Continue to elevate his right lower extremity on pillows to keep the stump elevated with his knee straight to prevent flexion contracture and help with swelling. Will continue to follow along. (2) Acute respiratory failure with hypoxia: Code(s): J96.01 - Acute respiratory failure with hypoxia Status: Acute Assessment and Plan: Intubated in the ICU and still with a PEEP of 10, FiO2 has been weaned over the past 2 days. Vent management per [employer]. (3) Septic shock: Code(s): A41.9 - Sepsis, unspecified organism; R65.21 - Severe sepsis with septic shock Status: Acute Assessment and Plan: Aspiration pneumonia versus gangrene of the right foot and s/p cardia arrest. Continue IV antibiotics. He is postop day 1 following right BKA. Plan I have discussed the patient's case and plan of care with Dr. Johns. Subjective Subjective Date/Time Seen: 03/06/24 13:01 Post Op day: 1 (Right BKA) Interval history: Patient sedated and intubated in the ICU. He has had a low grade fever overnight with Tmax this morning of 100.3F. Not on any vasopressors. Exam Const: General: ill appearing Orientation/consciousness: patient obtunded (sedated and intubated) Extrem: Other: Right BKA stump with marianne wrap dressing in place over posterior ortho glass splint. Dressing dry and intact. Stump is elevated on 2 pillows. Objective Data Vital Signs Vital Signs: Vital Signs - 24 hr 03/05/24 13:24 03/05/24 13:24 03/05/24 13:32 Temperature Pulse Rate 88 88 85 Respiratory Rate 20 20 Blood Pressure Pulse Oximetry 97 Oxygen Delivery Mechanical Ventilation Fraction of Inspired Oxygen 30 03/05/24 14:05 03/05/24 14:15 03/05/24 14:05 Temperature Pulse Rate 92 92 92 Respiratory Rate 18 18 18 Blood Pressure Pulse Oximetry Oxygen Delivery Fraction of Inspired Oxygen 03/05/24 14:05 03/05/24 14:00 03/05/24 14:00 Temperature 98.6 F Pulse Rate 92 92 92 Respiratory Rate 18 18 Blood Pressure 121/53 L Pulse Oximetry 96 Oxygen Delivery Fraction of Inspired Oxygen 03/05/24 16:50 03/05/24 17:28 03/05/24 17:30 Temperature Pulse Rate 113 H Respiratory Rate Blood Pressure Pulse Oximetry 96 95 Oxygen Delivery Mechanical Ventilation Mechanical Ventilation Mechanical Ventilation Fraction of Inspired Oxygen 30 30 30 03/05/24 17:30 03/05/24 18:02 03/05/24 18:03 Temperature Pulse Rate 102 H 102 H Respiratory Rate 18 18 Blood Pressure Pulse Oximetry Oxygen Delivery Fraction of Inspired Oxygen 30 03/05/24 18:00 03/05/24 18:00 03/05/24 17:30 Temperature 98.8 F 99.0 F Pulse Rate 105 H 104 H 113 H Respiratory Rate 18 18 Blood Pressure 108/52 L 133/59 L Pulse Oximetry 96 98 Oxygen Delivery Fraction of Inspired Oxygen 03/05/24 17:45 03/05/24 18:15 03/05/24 18:45 Temperature 98.9 F 98.7 F 98.6 F Pulse Rate 109 H 99 94 Respiratory Rate 18 18 18 Blood Pressure 114/51 L 108/52 L 112/52 L Pulse Oximetry 95 96 97 Oxygen Delivery Fraction of Inspired Oxygen 03/05/24 19:22 03/05/24 20:06 03/05/24 20:06 Temperature 98.5 F Pulse Rate 92 93 93 Respiratory Rate 18 20 Blood Pressure 121/55 L Pulse Oximetry 98 99 Oxygen Delivery Mechanical Ventilation Fraction of Inspired Oxygen 30 03/05/24 20:00 03/05/24 20:00 03/05/24 20:00 Temperature Pulse Rate 78 78 Respiratory Rate 20 20 Blood Pressure Pulse Oximetry Oxygen Delivery Fraction of Inspired Oxygen 30 03/05/24 20:00 03/05/24 20:00 03/05/24 22:00 Temperature 98.5 F 98.8 F Pulse Rate 92 103 H Respiratory Rate 18 18 Blood Pressure 122/54 L 127/54 L Pulse Oximetry 98 99 99 Oxygen Delivery Mechanical Ventilation Fraction of Inspired Oxygen 30 03/05/24 22:00 03/05/24 22:00 03/05/24 23:20 Temperature Pulse Rate 103 H 103 H 98 Respiratory Rate 18 18 Blood Pressure Pulse Oximetry 99 Oxygen Delivery Mechanical Ventilation Fraction of Inspired Oxygen 30 03/05/24 20:16 03/05/24 20:15 03/05/24 23:15 Temperature 98.0 F 98.8 F Pulse Rate 95 76 100 Respiratory Rate 20 18 18 Blood Pressure 130/52 L 134/60 Pulse Oximetry 99 99 Oxygen Delivery Fraction of Inspired Oxygen 03/05/24 21:15 03/05/24 22:15 03/06/24 00:00 Temperature 98.7 F 98.8 F Pulse Rate 109 H 100 94 Respiratory Rate 18 18 18 Blood Pressure 123/55 L 134/60 Pulse Oximetry 99 99 Oxygen Delivery Fraction of Inspired Oxygen 03/06/24 00:00 03/05/24 20:00 03/05/24 22:00 Temperature Pulse Rate 94 94 103 H Respiratory Rate 18 Blood Pressure Pulse Oximetry Oxygen Delivery Fraction of Inspired Oxygen 03/06/24 00:00 03/06/24 00:00 03/06/24 00:00 Temperature 98.9 F Pulse Rate 99 Respiratory Rate 18 Blood Pressure 126/56 L Pulse Oximetry 99 99 Oxygen Delivery Mechanical Ventilation Fraction of Inspired Oxygen 30 30 03/06/24 00:00 03/06/24 02:10 03/06/24 02:11 Temperature Pulse Rate 99 96 96 Respiratory Rate 19 Blood Pressure Pulse Oximetry 100 Oxygen Delivery Mechanical Ventilation Fraction of Inspired Oxygen 30 03/06/24 02:00 03/06/24 02:00 03/06/24 02:00 Temperature 99.3 F Pulse Rate 96 96 96 Respiratory Rate 18 18 Blood Pressure 125/54 L Pulse Oximetry 100 Oxygen Delivery Fraction of Inspired Oxygen 03/06/24 02:00 03/06/24 04:00 03/06/24 04:00 Temperature 100.0 F H Pulse Rate 96 105 H 105 H Respiratory Rate 18 21 H 18 Blood Pressure 125/55 L Pulse Oximetry 98 Oxygen Delivery Fraction of Inspired Oxygen 03/06/24 04:00 03/06/24 05:26 03/06/24 02:20 Temperature Pulse Rate 105 H 105 H 97 Respiratory Rate 18 22 H 19 Blood Pressure Pulse Oximetry Oxygen Delivery Fraction of Inspired Oxygen 03/06/24 05:33 03/06/24 06:00 03/06/24 06:00 Temperature Pulse Rate 102 H 106 H 106 H Respiratory Rate 18 18 Blood Pressure Pulse Oximetry 98 Oxygen Delivery Mechanical Ventilation Fraction of Inspired Oxygen 30 03/06/24 06:46 03/06/24 04:00 03/06/24 04:00 Temperature Pulse Rate 114 H Respiratory Rate 22 H Blood Pressure Pulse Oximetry 99 Oxygen Delivery Mechanical Ventilation Fraction of Inspired Oxygen 30 30 03/06/24 06:00 03/06/24 04:00 03/06/24 06:00 Temperature 100.1 F H Pulse Rate 105 H 99 105 H Respiratory Rate 18 Blood Pressure 119/55 L Pulse Oximetry 99 Oxygen Delivery Fraction of Inspired Oxygen 03/06/24 07:19 03/06/24 07:00 03/06/24 07:10 Temperature Pulse Rate 126 H 126 H 128 H Respiratory Rate 19 18 Blood Pressure Pulse Oximetry 100 Oxygen Delivery Mechanical Ventilation Fraction of Inspired Oxygen 30 03/06/24 07:20 03/06/24 07:20 03/06/24 07:22 Temperature Pulse Rate 134 H 134 H 129 H Respiratory Rate 19 19 19 Blood Pressure Pulse Oximetry Oxygen Delivery Fraction of Inspired Oxygen 03/06/24 07:22 03/06/24 08:00 03/06/24 08:00 Temperature 100.6 F H Pulse Rate 129 H 121 H 122 H Respiratory Rate 19 17 19 Blood Pressure 124/58 L Pulse Oximetry 96 Oxygen Delivery Fraction of Inspired Oxygen 03/06/24 08:00 03/06/24 09:43 03/06/24 08:00 Temperature Pulse Rate 122 H 106 H Respiratory Rate 19 16 Blood Pressure Pulse Oximetry 96 Oxygen Delivery Mechanical Ventilation Fraction of Inspired Oxygen 30 03/06/24 08:00 03/06/24 10:00 03/06/24 10:00 Temperature Pulse Rate 102 H 102 H Respiratory Rate 16 16 Blood Pressure Pulse Oximetry Oxygen Delivery Fraction of Inspired Oxygen 30 03/06/24 08:00 03/06/24 10:00 03/06/24 10:00 Temperature 100.0 F H Pulse Rate 118 H 102 H 102 H Respiratory Rate 16 Blood Pressure 114/53 L Pulse Oximetry 97 Oxygen Delivery Fraction of Inspired Oxygen 03/06/24 10:04 03/06/24 12:02 03/06/24 12:02 Temperature Pulse Rate 104 H 100 100 Respiratory Rate 18 18 Blood Pressure Pulse Oximetry 97 Oxygen Delivery Mechanical Ventilation Fraction of Inspired Oxygen 30 03/06/24 12:00 03/06/24 12:00 Temperature 99.9 F H Pulse Rate 100 Respiratory Rate 18 Blood Pressure 113/48 L Pulse Oximetry 98 Oxygen Delivery Fraction of Inspired Oxygen 30 Intake/Output Intake/Output: Intake & Output 03/03/24 03/04/24 03/05/24 03/06/24 23:59 23:59 23:59 23:59 Intake Total 2079.4 2613.8 2823.0 955.8 Output Total 1355 2150 2950 800 Balance 724.4 463.8 -127.0 155.8 Meds/Results Medications: Active Medications Generic Name Dose Route Start Last Admin Trade Name Freq PRN Reason Stop Dose Admin Acetaminophen 500 mg 02/28/24 19:15 Acetaminophen 500 Mg Tablet PO Q6H PRN Pain Rated 1-3 Albuterol/Ipratropium 3 ml 02/29/24 02:00 03/06/24 06:55 Ipratropium 0.5 Mg/Albuterol Sulfate 2.5 Mg Ampul.Neb 3 Ml INHALATION 3 ml Q6HRT JASON Administration Alteplase, Recombinant 2 mg 03/06/24 09:45 03/06/24 09:55 Alteplase 2 Mg Vial (Cathflo) IV PUSH 2 mg ONCE PRN Administration Line Occlusion Aspirin 81 mg 03/01/24 08:00 03/06/24 09:19 Aspirin 81 Mg Chewable Tablet PO 81 mg DAILY@0800 JASON Administration Atorvastatin Calcium 80 mg 03/01/24 09:00 03/06/24 09:19 Atorvastatin 40 Mg Tablet PO 80 mg DAILY JASON Administration Dextrose 12.5 gm 02/28/24 19:23 Dextrose 50% 25 Gm/50 Ml Syringe IV PUSH PRN PRN Hypoglycemia Protocol Furosemide 80 mg 03/06/24 09:00 03/06/24 09:19 Furosemide Inj 100 Mg/10 Ml Vial IV PUSH 03/06/24 17:01 80 mg BID JASON Administration Glucagon 1 mg 02/28/24 19:23 Glucagon For Inj 1 Mg Vial IM PRN PRN Hypoglycemia Protocol Glucose 15 gm 02/28/24 19:23 Glucose Oral Gel 15 Gm Of Glucse In 37.5 Gm Tube PO PRN PRN Hypoglycemia Protocol Heparin Sodium (Porcine) 5,000 units 03/03/24 14:00 03/06/24 05:58 Heparin Sodium 5,000 Units/Ml Vial SUB-Q 5,000 units Q8HR JASON Administration Hydralazine HCl 10 mg 03/03/24 15:19 Hydralazine Hcl 20 Mg/Ml Vial IV PUSH Q4HR PRN Hypertension Dextrose 1,000 mls @ 100 mls/hr 02/28/24 19:23 Dextrose 5% 1,000 Ml IVPB PRN PRN Hypoglycemia Protocol Fentanyl Citrate 2,500 mcg in 250 mls @ 10 mls/hr 02/28/24 21:20 03/06/24 12:02 Fentanyl 2,500 Mcg/Ns 250 Ml IV CONT 100 mcg/hr .Q25H JASON 10 mls/hr Titration Protocol 100 MCG/HR Midazolam HCl 100 mg in 100 mls @ 3 mls/hr 02/28/24 21:20 03/06/24 12:02 Versed 100 Mg/Ns 100 Ml IV CONT 3 mg/hr .[id number] JASON 3 mls/hr Titration Protocol 3 MG/HR Meropenem 1 gm in 100 mls @ 200 mls/hr 02/28/24 22:00 03/06/24 06:28 IVPB Infused Q8H JASON Infusion Vancomycin HCl 1,500 mg in 500 mls @ 250 mls/hr 03/03/24 22:00 03/05/24 23:48 Vancomycin 1,500 Mg/Ns 500 Ml IVPB Infused Q24H JASON Infusion Insulin Aspart 3 - 6 units 03/01/24 00:00 03/06/24 05:59 Insulin Aspart (*Bkc) 100 Units/Ml SUB-Q Not Given Q6H [facility] Protocol Insulin Glargine 40 units 03/05/24 09:00 03/06/24 09:41 Insulin Glargine (*Bkc) 100 Units/Ml SUB-Q 40 units DAILY JASON Administration Losartan Potassium 25 mg 03/07/24 09:00 Losartan Potassium 25 Mg Tablet PO DAILY JASON Metoclopramide HCl 10 mg 03/04/24 08:00 03/06/24 12:27 Metoclopramide Hcl 10 Mg/10 Ml Soln Udc FEED TUBE 10 mg Q6HR JASON Administration Metoprolol Tartrate 25 mg 03/06/24 21:00 Metoprolol Tartrate 25 Mg Tablet FEED TUBE Q12HR JASON Midodrine 5 mg 03/05/24 13:00 03/06/24 12:27 Midodrine Hcl 2.5 Mg Tablet PO 5 mg TID JASON Administration Multi-Ingred Cream/Lotion/Oil/Oint 1 applic 02/29/24 09:00 03/06/24 09:19 Mineral Oil/White Petrolatum Ointment EACH EYE 1 applic Q12HR JASON Administration Pantoprazole Sodium 40 mg 03/02/24 09:00 03/06/24 09:19 Pantoprazole Sodium Iv 40 Mg Vial IV PUSH 40 mg Q12HR JASON Administration Sodium Chloride 10 ml 02/29/24 06:00 03/06/24 05:58 Central Line Flush IV PUSH 10 ml Q8HR JASON Administration Sodium Chloride 20 ml 02/28/24 23:37 Central Line Flush IV PUSH PRN PRN after blood draws Radiology Results: ITS Impressions Lower Extremity CTA 02/28/24 14:54 IMPRESSION: 1. 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 2. Moderate stenosis of right popliteal artery. 3. Osteomyelitis involving first proximal and distal phalanges and head of first metatarsal. Head CT 02/29/24 05:55 Impression: No intracranial hemorrhage, mass, or acute infarct. Stable chronic encephalomalacia in the high left parietal lobe. Atrophy and chronic white matter changes, as above. Chest/Abdomen/Pelvis CTA 02/29/24 06:02 Impression: Extensive right upper lobe consolidation and more mild right middle lobe consolidation, consistent with pneumonia. Consider aspiration pneumonia. Moderate to large right pleural effusion with complete atelectasis of the right lower lobe. Moderate left pleural effusion with minimal left basilar atelectasis. Small pericardial effusion. No definite acute abnormality in the abdomen or pelvis. Chronic compression fractures, as above. Renal Ultrasound 03/03/24 15:45 IMPRESSION: 1. Normal kidneys without hydronephrosis. 2. Small amount of ascites in the abdomen and pelvis. Chest X-Ray 03/06/24 06:04 IMPRESSION: 1. Diffuse lung disease with worsening on the left, consistent with pneumonia. 2. Stable small right pleural effusion. Labs Labs: Laboratory Results - last 24 hr 03/03/24 03/05/24 03/05/24 09:09 15:29 17:38 WBC RBC Hgb Hct MCV MCH MCHC RDW Plt Count MPV PT INR APTT Puncture Site Artline ABG pH 7.445 ABG pCO2 38.9 ABG pO2 150.6 H ABG PO2/FiO2 Ratio 1.51 ABG HCO3 26.1 H ABG O2 Saturation 99.0 ABG O2 Content 12.0 L ABG Base Excess 2.0 A-a Gradient 523.5 Oxyhemoglobin 97.9 Carboxyhemoglobin Methemoglobin Reduced Hemoglobin Total Hemoglobin 8.5 L O2 Delivery Device Other device O2 Liters/Min Not Reportable Minute Volume Vent Rate Vent Mode FiO2 100 Tidal Volume PEEP Peak Inspir Pressure Pressure Support Sodium 143 Potassium 3.9 Chloride 112 H Carbon Dioxide 28 Anion Gap 3 L BUN 49 H Creatinine 0.90 Estim Creat Clear Calc 83 Estimated GFR > 60 Glucose 177 H POC Capillary Glucose Calcium 7.6 L Magnesium Total Bilirubin AST ALT Alkaline Phosphatase Total Protein Albumin Ur Random Creatinine 73 Ur Random Chloride 37 U Random Chloride/Creat 51 Vancomycin Trough Blood Type O Positive Antibody Screen Negative Crossmatch See Detail 03/05/24 03/06/24 03/06/24 20:18 00:07 05:18 WBC 22.7 H 22.4 H RBC 3.29 L 3.16 L Hgb 9.3 L 8.9 L Hct 28.8 L 27.6 L MCV 87.5 87.3 MCH 28.3 28.2 MCHC 32.3 32.2 RDW 15.8 H 16.0 H Plt Count 369 344 MPV 9.1 9.1 PT 18.8 H INR 1.5 APTT 45.9 H Puncture Site Artline ABG pH 7.478 H ABG pCO2 33.7 L ABG pO2 81.1 ABG PO2/FiO2 Ratio 2.70 ABG HCO3 24.4 ABG O2 Saturation 96.7 ABG O2 Content 13.3 L ABG Base Excess 1.1 A-a Gradient 93.2 Oxyhemoglobin 94.9 Carboxyhemoglobin 0.8 Methemoglobin 0.3 Reduced Hemoglobin 4.0 Total Hemoglobin 9.9 L O2 Delivery Device Ventilator O2 Liters/Min Not Reportable Minute Volume Not Reportable Vent Rate 18 Vent Mode Cmv FiO2 30 Tidal Volume 410 PEEP 10 Peak Inspir Pressure Not Reportable Pressure Support Not Reportable Sodium 143 Potassium 4.1 Chloride 113 H Carbon Dioxide 28 Anion Gap 2 L BUN 43 H Creatinine 0.80 Estim Creat Clear Calc 93 Estimated GFR > 60 Glucose 171 H POC Capillary Glucose 170 H Calcium 7.6 L Magnesium 2.5 H Total Bilirubin 0.4 AST 40 ALT 31 Alkaline Phosphatase 78 Total Protein 5.0 L Albumin 2.3 L Ur Random Creatinine Ur Random Chloride U Random Chloride/Creat Vancomycin Trough 18.2 Blood Type Antibody Screen Crossmatch 03/06/24 12:28 WBC RBC Hgb Hct MCV MCH MCHC RDW Plt Count MPV PT INR APTT Puncture Site ABG pH ABG pCO2 ABG pO2 ABG PO2/FiO2 Ratio ABG HCO3 ABG O2 Saturation ABG O2 Content ABG Base Excess A-a Gradient Oxyhemoglobin Carboxyhemoglobin Methemoglobin Reduced Hemoglobin Total Hemoglobin O2 Delivery Device O2 Liters/Min Minute Volume Vent Rate Vent Mode FiO2 Tidal Volume PEEP Peak Inspir Pressure Pressure Support Sodium Potassium Chloride Carbon Dioxide Anion Gap BUN Creatinine Estim Creat Clear Calc Estimated GFR Glucose POC Capillary Glucose 169 H Calcium Magnesium Total Bilirubin AST ALT Alkaline Phosphatase Total Protein Albumin Ur Random Creatinine Ur Random Chloride U Random Chloride/Creat Vancomycin Trough Blood Type Antibody Screen Crossmatch
--- NOTE | 2024-03-06 13:43 | P.PNIM_ITS ---
Progress Note: A&P Assessment and Plan (1) Acute respiratory failure with hypoxia: Code(s): J96.01 - Acute respiratory failure with hypoxia Status: Acute Assessment and Plan: Acute respiratory failure likely related to cardiac arrest, aspiration pneumonia, NSTEMI, hypoxia, septic shock Worsening likely secondary to ARDS versus pulmonary edema -currently CMV mode of ventilation, peep of 10, 30 % FiO2. Decrease PEEP to 8 -chest x-ray reviewed. Advance ET tube by 2 cm -continue bronchodilators -on fentanyl and Versed infusion for sedation. Pulse wean down sedation -off Nimbex for neuromuscular brayden -continue diuresis today (2) Cardiac arrest with pulseless electrical activity: Code(s): I46.9 - Cardiac arrest, cause unspecified Status: Acute Assessment and Plan: Cardiac arrest, secondary to unknown etiology. Possible aspiration pneumonia, NSTEMI, hypoxia, septic shock, infection -see code blue sheet for the details -patient currently intubated, vasopressors for blood pressure support have been weaned off -appreciate cardiology following the patient 02/29/2024 echocardiogram Summary 1. Technically difficult study with limited views. 2. Left ventricular chamber dimension is normal. 3. Left ventricular systolic function is mildly reduced, estimated at 45-50%. The apex appears to be hypokinetic. 4. There is mildly increased left ventricular wall thickness. 5. The left ventricular diastolic function is grade I diastolic dysfunction. 6. Right ventricular systolic function is normal. 7. Left atrial chamber dimension is moderately enlarged. 8. There is mild to moderate tricuspid valve regurgitation. 9. There is small anterior pericardial effusion. (3) Septic shock: Code(s): A41.9 - Sepsis, unspecified organism; R65.21 - Severe sepsis with septic shock Status: Acute Assessment and Plan: Patient in shock, likely related to the gangrene, aspiration pneumonia, status post cardiac arrest 02/28/2024: Blood cultures have been obtained and negative till now -lactic acid has normalized -patient has been adequately fluid-resuscitated -OFF Levophed -wean stress dose steroids -continue midodrine -status post albumin for intravascular volume expansion (4) NSTEMI (non-ST elevated myocardial infarction): Code(s): I21.4 - Non-ST elevation (NSTEMI) myocardial infarction Status: Acute Assessment and Plan: Increasing troponins, -EKG showed sinus rhythm with T-wave changes in V1 to V5 -appreciate cardiology evaluation and recommendation -Continue aspirin and high-dose a statin -will hold Brilinta -resume beta-brayden, losartan -03/02 heparin infusion was discontinued after 48 hours for NSTEMI by cardiology (5) Gangrene of right foot: Code(s): I96 - Gangrene, not elsewhere classified Status: Acute Assessment and Plan: CTA showed peripheral arterial disease with total occlusion of the right anterior and posterior tibial arteries and right peroneal artery with distal reconstitution of peroneal artery. This extensive gangrene of the right foot with gas seen on CT of the foot. General surgery spoke to the patient in the ER on the day of admission on 02/27 patient at that time agreed for below-knee amputation. Plan was to do a below- knee amputation on 02/29/2024 but patient had a cardiac arrest that night secondary to sepsis. Surgery at that time was deferred. Patient now is intubated sedated and unable to sign his consent.. Patient has no family and for many years at the shelter has had no visitor. He has 1 son which no one has been able to get hold off right several attempts. Considering patient has gangrene of the foot with no vascular supply leading to sepsis and if untreatable lead to his , Dr. Johns will proceed with amputation today. [place] and Dr. Johns has signed 2 physician consent considering patient's clearly expressed wishes prior to cardiac arrest at the time of admission, his current situation and inability to sign the consent form by himself at this time. 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 Postop management per General surgery -continue antibiotics for necrotizing gas gangrene. Patient on meropenem and vancomycin which was started on 02/28/2024 -complete 5 days of clindamycin (6) Osteomyelitis of toe of right foot: Code(s): M86.9 - Osteomyelitis, unspecified Status: Chronic Assessment and Plan: As above (7) Peripheral vascular disease: Code(s): I73.9 - Peripheral vascular disease, unspecified Status: Chronic Assessment and Plan: Patient has history of peripheral vascular disease, coronary artery disease -started on aspirin, patient will require Brilinta since he had a STEMI in 2020 but currently holding Brilinta due to surgery and bleeding (8) Type 2 diabetes mellitus: Qualifiers: 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 complication status: with other specified complication 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 [facility] insulin use: with terminal operations manager use Qualified Code(s): E11.69 - Type 2 diabetes mellitus with other specified complication; Z79.4 - long-term (current) use of insulin Code(s): E11.9 - Type 2 diabetes mellitus without complications Status: Acute Assessment and Plan: Currently on sliding scale insulin, Accu-Cheks Hemoglobin A1c this admission is 8.2 Continue Lantus (9) Chronic obstructive pulmonary disease: Code(s): J44.9 - Chronic obstructive pulmonary disease, unspecified Status: Acute Assessment and Plan: Continue DuoNebs -continue Symbicort Subjective Date/time seen: 03/06/24 13:43 Interval history: S/P BKA ,intubated, on fentanyl and versed for sedation Review of Systems Review of Systems: 12 systems were reviewed and are negativ e except for as per HPI. ROS unobtainable: Yes unobtainable due to endotracheal tube, unobtainable due to medical condition and unobtainable due to mental status Exam Narrative: General: Patient intubated and sedated HEENT:, pupils are equal and reactive from a sclera is clear Neck:? supple Respiratory:? Coarse breath sounds bilaterally, decreased at bases, adequate air entry Cardiac:? S1-S2 normal, regular rate and rhythm Abdomen:? Soft, nontender, nondistended, hypoactive bowel sounds Extremities:? Right BKA stump under the dressing Neuro:? Patient is intubated, sedated, PERRL Skin:? Patient has maceration of his perianal area, and states to pressure ulcer on his buttocks. Psych:? Unable to assess at this time Objective Data Vital Signs Vital Signs: Vital Signs - 24 hr 03/05/24 14:05 03/05/24 14:15 03/05/24 14:05 Temperature Pulse Rate 92 92 92 Respiratory Rate 18 18 18 Blood Pressure Pulse Oximetry Oxygen Delivery Fraction of Inspired Oxygen 03/05/24 14:05 03/05/24 14:00 03/05/24 14:00 Temperature 98.6 F Pulse Rate 92 92 92 Respiratory Rate 18 18 Blood Pressure 121/53 L Pulse Oximetry 96 Oxygen Delivery Fraction of Inspired Oxygen 03/05/24 16:50 03/05/24 17:28 03/05/24 17:30 Temperature Pulse Rate 113 H Respiratory Rate Blood Pressure Pulse Oximetry 96 95 Oxygen Delivery Mechanical Ventilation Mechanical Ventilation Mechanical Ventilation Fraction of Inspired Oxygen 30 30 30 03/05/24 17:30 03/05/24 18:02 03/05/24 18:03 Temperature Pulse Rate 102 H 102 H Respiratory Rate 18 18 Blood Pressure Pulse Oximetry Oxygen Delivery Fraction of Inspired Oxygen 30 03/05/24 18:00 03/05/24 18:00 03/05/24 17:30 Temperature 98.8 F 99.0 F Pulse Rate 105 H 104 H 113 H Respiratory Rate 18 18 Blood Pressure 108/52 L 133/59 L Pulse Oximetry 96 98 Oxygen Delivery Fraction of Inspired Oxygen 03/05/24 17:45 03/05/24 18:15 03/05/24 18:45 Temperature 98.9 F 98.7 F 98.6 F Pulse Rate 109 H 99 94 Respiratory Rate 18 18 18 Blood Pressure 114/51 L 108/52 L 112/52 L Pulse Oximetry 95 96 97 Oxygen Delivery Fraction of Inspired Oxygen 03/05/24 19:22 03/05/24 20:06 03/05/24 20:06 Temperature 98.5 F Pulse Rate 92 93 93 Respiratory Rate 18 20 Blood Pressure 121/55 L Pulse Oximetry 98 99 Oxygen Delivery Mechanical Ventilation Fraction of Inspired Oxygen 30 03/05/24 20:00 03/05/24 20:00 03/05/24 20:00 Temperature Pulse Rate 78 78 Respiratory Rate 20 20 Blood Pressure Pulse Oximetry Oxygen Delivery Fraction of Inspired Oxygen 30 03/05/24 20:00 03/05/24 20:00 03/05/24 22:00 Temperature 98.5 F 98.8 F Pulse Rate 92 103 H Respiratory Rate 18 18 Blood Pressure 122/54 L 127/54 L Pulse Oximetry 98 99 99 Oxygen Delivery Mechanical Ventilation Fraction of Inspired Oxygen 30 03/05/24 22:00 03/05/24 22:00 03/05/24 23:20 Temperature Pulse Rate 103 H 103 H 98 Respiratory Rate 18 18 Blood Pressure Pulse Oximetry 99 Oxygen Delivery Mechanical Ventilation Fraction of Inspired Oxygen 30 03/05/24 20:16 03/05/24 20:15 03/05/24 23:15 Temperature 98.0 F 98.8 F Pulse Rate 95 76 100 Respiratory Rate 20 18 18 Blood Pressure 130/52 L 134/60 Pulse Oximetry 99 99 Oxygen Delivery Fraction of Inspired Oxygen 03/05/24 21:15 03/05/24 22:15 03/06/24 00:00 Temperature 98.7 F 98.8 F Pulse Rate 109 H 100 94 Respiratory Rate 18 18 18 Blood Pressure 123/55 L 134/60 Pulse Oximetry 99 99 Oxygen Delivery Fraction of Inspired Oxygen 03/06/24 00:00 03/05/24 20:00 03/05/24 22:00 Temperature Pulse Rate 94 94 103 H Respiratory Rate 18 Blood Pressure Pulse Oximetry Oxygen Delivery Fraction of Inspired Oxygen 03/06/24 00:00 03/06/24 00:00 03/06/24 00:00 Temperature 98.9 F Pulse Rate 99 Respiratory Rate 18 Blood Pressure 126/56 L Pulse Oximetry 99 99 Oxygen Delivery Mechanical Ventilation Fraction of Inspired Oxygen 30 30 03/06/24 00:00 03/06/24 02:10 03/06/24 02:11 Temperature Pulse Rate 99 96 96 Respiratory Rate 19 Blood Pressure Pulse Oximetry 100 Oxygen Delivery Mechanical Ventilation Fraction of Inspired Oxygen 30 03/06/24 02:00 03/06/24 02:00 03/06/24 02:00 Temperature 99.3 F Pulse Rate 96 96 96 Respiratory Rate 18 18 Blood Pressure 125/54 L Pulse Oximetry 100 Oxygen Delivery Fraction of Inspired Oxygen 03/06/24 02:00 03/06/24 04:00 03/06/24 04:00 Temperature 100.0 F H Pulse Rate 96 105 H 105 H Respiratory Rate 18 21 H 18 Blood Pressure 125/55 L Pulse Oximetry 98 Oxygen Delivery Fraction of Inspired Oxygen 03/06/24 04:00 03/06/24 05:26 03/06/24 02:20 Temperature Pulse Rate 105 H 105 H 97 Respiratory Rate 18 22 H 19 Blood Pressure Pulse Oximetry Oxygen Delivery Fraction of Inspired Oxygen 03/06/24 05:33 03/06/24 06:00 03/06/24 06:00 Temperature Pulse Rate 102 H 106 H 106 H Respiratory Rate 18 18 Blood Pressure Pulse Oximetry 98 Oxygen Delivery Mechanical Ventilation Fraction of Inspired Oxygen 30 03/06/24 06:46 03/06/24 04:00 03/06/24 04:00 Temperature Pulse Rate 114 H Respiratory Rate 22 H Blood Pressure Pulse Oximetry 99 Oxygen Delivery Mechanical Ventilation Fraction of Inspired Oxygen 30 30 03/06/24 06:00 03/06/24 04:00 03/06/24 06:00 Temperature 100.1 F H Pulse Rate 105 H 99 105 H Respiratory Rate 18 Blood Pressure 119/55 L Pulse Oximetry 99 Oxygen Delivery Fraction of Inspired Oxygen 03/06/24 07:19 03/06/24 07:00 03/06/24 07:10 Temperature Pulse Rate 126 H 126 H 128 H Respiratory Rate 19 18 Blood Pressure Pulse Oximetry 100 Oxygen Delivery Mechanical Ventilation Fraction of Inspired Oxygen 30 03/06/24 07:20 03/06/24 07:20 03/06/24 07:22 Temperature Pulse Rate 134 H 134 H 129 H Respiratory Rate 19 19 19 Blood Pressure Pulse Oximetry Oxygen Delivery Fraction of Inspired Oxygen 03/06/24 07:22 03/06/24 08:00 03/06/24 08:00 Temperature 100.6 F H Pulse Rate 129 H 121 H 122 H Respiratory Rate 19 17 19 Blood Pressure 124/58 L Pulse Oximetry 96 Oxygen Delivery Fraction of Inspired Oxygen 03/06/24 08:00 03/06/24 09:43 03/06/24 08:00 Temperature Pulse Rate 122 H 106 H Respiratory Rate 19 16 Blood Pressure Pulse Oximetry 96 Oxygen Delivery Mechanical Ventilation Fraction of Inspired Oxygen 30 03/06/24 08:00 03/06/24 10:00 03/06/24 10:00 Temperature Pulse Rate 102 H 102 H Respiratory Rate 16 16 Blood Pressure Pulse Oximetry Oxygen Delivery Fraction of Inspired Oxygen 30 03/06/24 08:00 03/06/24 10:00 03/06/24 10:00 Temperature 100.0 F H Pulse Rate 118 H 102 H 102 H Respiratory Rate 16 Blood Pressure 114/53 L Pulse Oximetry 97 Oxygen Delivery Fraction of Inspired Oxygen 03/06/24 10:04 03/06/24 12:02 03/06/24 12:02 Temperature Pulse Rate 104 H 100 100 Respiratory Rate 18 18 Blood Pressure Pulse Oximetry 97 Oxygen Delivery Mechanical Ventilation Fraction of Inspired Oxygen 30 03/06/24 12:00 03/06/24 12:00 03/06/24 12:17 Temperature 99.9 F H Pulse Rate 100 100 Respiratory Rate 18 18 Blood Pressure 113/48 L Pulse Oximetry 98 Oxygen Delivery Fraction of Inspired Oxygen 30 03/06/24 12:30 03/06/24 12:45 03/06/24 13:00 Temperature Pulse Rate 104 H 106 H 104 H Respiratory Rate 16 18 16 Blood Pressure Pulse Oximetry Oxygen Delivery Fraction of Inspired Oxygen 03/06/24 13:00 03/06/24 13:00 03/06/24 13:10 Temperature Pulse Rate 103 H 103 H 105 H Respiratory Rate 16 16 Blood Pressure Pulse Oximetry 97 Oxygen Delivery Mechanical Ventilation Fraction of Inspired Oxygen 30 03/06/24 12:00 03/06/24 12:00 Temperature Pulse Rate 105 H 98 Respiratory Rate 16 Blood Pressure Pulse Oximetry 97 Oxygen Delivery Mechanical Ventilation Fraction of Inspired Oxygen 30 Intake/Output Intake/Output: Intake & Output 03/03/24 03/04/24 03/05/24 03/06/24 23:59 23:59 23:59 23:59 Intake Total 2079.4 2613.8 2823.0 958.9 Output Total 1355 2150 2950 3200 Balance 724.4 463.8 -127.0 -2241.1 Meds/Results Medications: Active Medications Generic Name Dose Route Start Last Admin Trade Name Freq PRN Reason Stop Dose Admin Acetaminophen 500 mg 02/28/24 19:15 Acetaminophen 500 Mg Tablet PO Q6H PRN Pain Rated 1-3 Albuterol/Ipratropium 3 ml 02/29/24 02:00 03/06/24 13:00 Ipratropium 0.5 Mg/Albuterol Sulfate 2.5 Mg Ampul.Neb 3 Ml INHALATION 3 ml Q6HRT JASON Administration Alteplase, Recombinant 2 mg 03/06/24 09:45 03/06/24 13:10 Alteplase 2 Mg Vial (Cathflo) IV PUSH 2 mg ONCE PRN Administration Line Occlusion Aspirin 81 mg 03/01/24 08:00 03/06/24 09:19 Aspirin 81 Mg Chewable Tablet PO 81 mg DAILY@0800 JASON Administration Atorvastatin Calcium 80 mg 03/01/24 09:00 03/06/24 09:19 Atorvastatin 40 Mg Tablet PO 80 mg DAILY JASON Administration Dextrose 12.5 gm 02/28/24 19:23 Dextrose 50% 25 Gm/50 Ml Syringe IV PUSH PRN PRN Hypoglycemia Protocol Furosemide 80 mg 03/06/24 09:00 03/06/24 09:19 Furosemide Inj 100 Mg/10 Ml Vial IV PUSH 03/06/24 17:01 80 mg BID JASON Administration Glucagon 1 mg 02/28/24 19:23 Glucagon For Inj 1 Mg Vial IM PRN PRN Hypoglycemia Protocol Glucose 15 gm 02/28/24 19:23 Glucose Oral Gel 15 Gm Of Glucse In 37.5 Gm Tube PO PRN PRN Hypoglycemia Protocol Heparin Sodium (Porcine) 5,000 units 03/03/24 14:00 03/06/24 13:11 Heparin Sodium 5,000 Units/Ml Vial SUB-Q 5,000 units Q8HR JASON Administration Hydralazine HCl 10 mg 03/03/24 15:19 Hydralazine Hcl 20 Mg/Ml Vial IV PUSH Q4HR PRN Hypertension Dextrose 1,000 mls @ 100 mls/hr 02/28/24 19:23 Dextrose 5% 1,000 Ml IVPB PRN PRN Hypoglycemia Protocol Fentanyl Citrate 2,500 mcg in 250 mls @ 10 mls/hr 02/28/24 21:20 03/06/24 12:02 Fentanyl 2,500 Mcg/Ns 250 Ml IV CONT 100 mcg/hr .Q25H JASON 10 mls/hr Titration Protocol 100 MCG/HR Midazolam HCl 100 mg in 100 mls @ 3 mls/hr 02/28/24 21:20 03/06/24 13:00 Versed 100 Mg/Ns 100 Ml IV CONT 3 mg/hr .[id number] JASON 3 mls/hr Titration Protocol 3 MG/HR Meropenem 1 gm in 100 mls @ 200 mls/hr 02/28/24 22:00 03/06/24 13:11 IVPB 200 mls/hr Q8H JASON Administration Vancomycin HCl 1,500 mg in 500 mls @ 250 mls/hr 03/03/24 22:00 03/05/24 23:48 Vancomycin 1,500 Mg/Ns 500 Ml IVPB Infused Q24H JASON Infusion Insulin Aspart 3 - 6 units 03/01/24 00:00 03/06/24 13:12 Insulin Aspart (*Bkc) 100 Units/Ml SUB-Q Not Given Q6H JASON Protocol Insulin Glargine 40 units 03/05/24 09:00 03/06/24 09:41 Insulin Glargine (*Bkc) 100 Units/Ml SUB-Q 40 units DAILY JASON Administration Losartan Potassium 25 mg 03/07/24 09:00 Losartan Potassium 25 Mg Tablet PO DAILY JASON Metoclopramide HCl 10 mg 03/04/24 08:00 03/06/24 12:27 Metoclopramide Hcl 10 Mg/10 Ml Soln Udc FEED TUBE 10 mg Q6HR JASON Administration Metoprolol Tartrate 25 mg 03/06/24 21:00 Metoprolol Tartrate 25 Mg Tablet FEED TUBE Q12HR JASON Midodrine 5 mg 03/05/24 13:00 03/06/24 12:27 Midodrine Hcl 2.5 Mg Tablet PO 5 mg TID JASON Administration Multi-Ingred Cream/Lotion/Oil/Oint 1 applic 02/29/24 09:00 03/06/24 09:19 Mineral Oil/White Petrolatum Ointment EACH EYE 1 applic Q12HR JASON Administration Pantoprazole Sodium 40 mg 03/02/24 09:00 03/06/24 09:19 Pantoprazole Sodium Iv 40 Mg Vial IV PUSH 40 mg Q12HR JASON Administration Sodium Chloride 10 ml 02/29/24 06:00 03/06/24 13:12 Central Line Flush IV PUSH 10 ml Q8HR JASON Administration Sodium Chloride 20 ml 02/28/24 23:37 Central Line Flush IV PUSH PRN PRN after blood draws Radiology Results: ITS Impressions Lower Extremity CTA 02/28/24 14:54 IMPRESSION: 1. 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 2. Moderate stenosis of right popliteal artery. 3. Osteomyelitis involving first proximal and distal phalanges and head of first metatarsal. Head CT 02/29/24 05:55 Impression: No intracranial hemorrhage, mass, or acute infarct. Stable chronic encephalomalacia in the high left parietal lobe. Atrophy and chronic white matter changes, as above. Chest/Abdomen/Pelvis CTA 02/29/24 06:02 Impression: Extensive right upper lobe consolidation and more mild right middle lobe consolidation, consistent with pneumonia. Consider aspiration pneumonia. Moderate to large right pleural effusion with complete atelectasis of the right lower lobe. Moderate left pleural effusion with minimal left basilar atelectasis. Small pericardial effusion. No definite acute abnormality in the abdomen or pelvis. Chronic compression fractures, as above. Renal Ultrasound 03/03/24 15:45 IMPRESSION: 1. Normal kidneys without hydronephrosis. 2. Small amount of ascites in the abdomen and pelvis. Chest X-Ray 03/06/24 06:04 IMPRESSION: 1. Diffuse lung disease with worsening on the left, consistent with pneumonia. 2. Stable small right pleural effusion. Labs Labs: Laboratory Results - last 24 hr 03/03/24 03/05/24 03/05/24 09:09 15:29 17:38 WBC RBC Hgb Hct MCV MCH MCHC RDW Plt Count MPV PT INR APTT Puncture Site Artline ABG pH 7.445 ABG pCO2 38.9 ABG pO2 150.6 H ABG PO2/FiO2 Ratio 1.51 ABG HCO3 26.1 H ABG O2 Saturation 99.0 ABG O2 Content 12.0 L ABG Base Excess 2.0 A-a Gradient 523.5 Oxyhemoglobin 97.9 Carboxyhemoglobin Methemoglobin Reduced Hemoglobin Total Hemoglobin 8.5 L O2 Delivery Device Other device O2 Liters/Min Not Reportable Minute Volume Vent Rate Vent Mode FiO2 100 Tidal Volume PEEP Peak Inspir Pressure Pressure Support Sodium 143 Potassium 3.9 Chloride 112 H Carbon Dioxide 28 Anion Gap 3 L BUN 49 H Creatinine 0.90 Estim Creat Clear Calc 83 Estimated GFR > 60 Glucose 177 H POC Capillary Glucose Calcium 7.6 L Magnesium Total Bilirubin AST ALT Alkaline Phosphatase Total Protein Albumin Ur Random Creatinine 73 Ur Random Chloride 37 U Random Chloride/Creat 51 Vancomycin Trough Blood Type O Positive Antibody Screen Negative Crossmatch See Detail 03/05/24 03/06/24 03/06/24 20:18 00:07 05:18 WBC 22.7 H 22.4 H RBC 3.29 L 3.16 L Hgb 9.3 L 8.9 L Hct 28.8 L 27.6 L MCV 87.5 87.3 MCH 28.3 28.2 MCHC 32.3 32.2 RDW 15.8 H 16.0 H Plt Count 369 344 MPV 9.1 9.1 PT 18.8 H INR 1.5 APTT 45.9 H Puncture Site Artline ABG pH 7.478 H ABG pCO2 33.7 L ABG pO2 81.1 ABG PO2/FiO2 Ratio 2.70 ABG HCO3 24.4 ABG O2 Saturation 96.7 ABG O2 Content 13.3 L ABG Base Excess 1.1 A-a Gradient 93.2 Oxyhemoglobin 94.9 Carboxyhemoglobin 0.8 Methemoglobin 0.3 Reduced Hemoglobin 4.0 Total Hemoglobin 9.9 L O2 Delivery Device Ventilator O2 Liters/Min Not Reportable Minute Volume Not Reportable Vent Rate 18 Vent Mode Cmv FiO2 30 Tidal Volume 410 PEEP 10 Peak Inspir Pressure Not Reportable Pressure Support Not Reportable Sodium 143 Potassium 4.1 Chloride 113 H Carbon Dioxide 28 Anion Gap 2 L BUN 43 H Creatinine 0.80 Estim Creat Clear Calc 93 Estimated GFR > 60 Glucose 171 H POC Capillary Glucose 170 H Calcium 7.6 L Magnesium 2.5 H Total Bilirubin 0.4 AST 40 ALT 31 Alkaline Phosphatase 78 Total Protein 5.0 L Albumin 2.3 L Ur Random Creatinine Ur Random Chloride U Random Chloride/Creat Vancomycin Trough 18.2 Blood Type Antibody Screen Crossmatch 03/06/24 12:28 WBC RBC Hgb Hct MCV MCH MCHC RDW Plt Count MPV PT INR APTT Puncture Site ABG pH ABG pCO2 ABG pO2 ABG PO2/FiO2 Ratio ABG HCO3 ABG O2 Saturation ABG O2 Content ABG Base Excess A-a Gradient Oxyhemoglobin Carboxyhemoglobin Methemoglobin Reduced Hemoglobin Total Hemoglobin O2 Delivery Device O2 Liters/Min Minute Volume Vent Rate Vent Mode FiO2 Tidal Volume PEEP Peak Inspir Pressure Pressure Support Sodium Potassium Chloride Carbon Dioxide Anion Gap BUN Creatinine Estim Creat Clear Calc Estimated GFR Glucose POC Capillary Glucose 169 H Calcium Magnesium Total Bilirubin AST ALT Alkaline Phosphatase Total Protein Albumin Ur Random Creatinine Ur Random Chloride U Random Chloride/Creat Vancomycin Trough Blood Type Antibody Screen Crossmatch Quality VTE Prophylaxis VTE prophylaxis: pharmacologic ordered Hospitalist MIPS Advance Care Plan I have confirmed that the patient's Advanced Care Plan is present, code status is documented, or surrogate decision maker is listed in patient medical record.: Yes Medication Reconciliation I have utilized all available resources to obtain, update and review the patients current medications (includes all prescriptions, OTC, herbals, cannabis, and nutritional supplements).: Yes
[2024-03-06 15:53] LABS: Anion Gap 2 mmol/L (4-12); Blood Urea Nitrogen 43 mg/dL (9-20); Calcium 7.9 mg/dL (8.4-10.2); Carbon Dioxide 31 mmol/L (22-30); Chloride 110 mmol/L (98-107); Estimated CRCL calculation 91 ml/min; Estimated Glomerular Filt Rate > 60; Glucose 210 mg/dL (65-110); Potassium 4.2 mmol/L (3.4-5.0); Sodium 143 mmol/L (137-145)
[2024-03-06] MEDS: INSULIN ASPART (*BKC) 100 UNITS/ML SUB-Q (17:32)
[2024-03-06 17:48] LABS: Glucose Point of Care 217 mg/dl (65-105)
[2024-03-06] MEDS: METOPROLOL TARTRATE 25 MG TABLET FEED TUBE (21:19)
[2024-03-06] MEDS: VANCOMYCIN 1,500 MG/NS 500 ML 1,500 MG/500 ML BAG 250 MG IVPB (21:21)
[2024-03-06 23:49] LABS: Glucose Point of Care 166 mg/dl (65-105)
[2024-03-07] VITALS (33 sets, daily range): BP systolic 100–156; BP diastolic 40–70; PULSE 75–120; RESP 16–22; TEMP 37.1–37.9; O2SAT 96–100
[2024-03-07] MEDS: IPRATROPIUM 0.5 MG/ALBUTEROL SULFATE 2.5 MG AMPUL.NEB 3 ML INHALATION ×4 (02:06→19:08)
[2024-03-07 05:17] LABS: Alveolar/Arterial O2 Gradient 61.2 mmHg; Base Excess ABG 5.6 mEq/l (+/-2.0); Carboxyhemoglobin 1.1 % THb (0-2.0); Fractional Inspired Oxygen 30 %; HCO3 ABG 29.2 mEq/l (22.0-26.0); Methemoglobin ABG 0.3 %THb (0-1.5); Oxygen Content ABG 12.3 %vol (16.0-22.0); Oxygen Saturation ABG 98.3 % (95.0-100.0); Oxyhemoglobin 96.8 % THb (90.0-100.0); PCO2 ABG 38.5 mmHg (35.0-45.0); PO2 ABG 107.5 mmHg (80.0-100.0); PO2 FiO2 Ratio Arterial Blood 3.58 %; Reduced Hemoglobin 1.8 %THb (0-5.0); Total Hemoglobin 8.9 g/dL (12.0-18.0); pH ABG 7.498 (7.350-7.450)
[2024-03-07] MEDS: MEROPENEM 1 GM/NS 100 ML 1 GM/100 ML BAG IVPB ×3 (05:21→21:45)
[2024-03-07] MEDS: METOCLOPRAMIDE HCL 10 MG/10 ML SOLN UDC FEED TUBE ×3 (05:23→17:45)
[2024-03-07] MEDS: HEPARIN SODIUM 5,000 UNITS/ML VIAL 5000 UNITS SUB-Q ×3 (05:23→21:16)
[2024-03-07] MEDS: CENTRAL LINE FLUSH 10 ML IV PUSH ×3 (05:24→21:16)
[2024-03-07 05:45] LABS: Site Drawn ARTLINE
[2024-03-07 05:46] LABS: Device VENTILATOR
[2024-03-07 05:47] LABS: Arterial Blood Gas PEEP 8 cmH2O; Arterial Blood Gas Tidal Volume 410 ml; Arterial Blood Gas Vent Mode CMV; Arterial Blood Gas Ventilator rate 16 /MIN
[2024-03-07 06:30] LABS: Hematocrit 27.1 % (42.0-52.0); Hemoglobin 8.5 g/dL (14.0-18.0); Mean Corpuscular HGB Conc 31.4 g/dl (32-36); Mean Corpuscular Hemoglobin 28.1 pg (26-34); Mean Corpuscular Volume 89.7 fl (80-100); Mean Platelet Volume 9.8 fl (7.4-10.4); Platelet Count Result 288 k/mm3 (150-375); Red Blood Count 3.02 M/mm3 (4.6-6.20); Red Cell Distribution Width 16.6 % (11.5-14.5); White Blood Count 22.8 K/mm3 (4.5-10.0)
[2024-03-07 06:41] LABS: Alanine Aminotransferase 37 U/L (6-50); Albumin Level 2.6 g/dL (3.5-5.1); Alkaline Phosphatase 78 U/L (38-126); Anion Gap 2 mmol/L (4-12); Aspartate Amino Transferase 48 U/L (17-59); Bilirubin,Total 0.4 mg/dL (0.2-1.3); Blood Urea Nitrogen 39 mg/dL (9-20); Carbon Dioxide 34 mmol/L (22-30); Chloride 110 mmol/L (98-107); Estimated CRCL calculation 101 ml/min; Estimated Glomerular Filt Rate > 60; Glucose 176 mg/dL (65-110); Magnesium 2.5 mg/dL (1.6-2.3); Potassium 3.9 mmol/L (3.4-5.0); Sodium 146 mmol/L (137-145)
--- NOTE | 2024-03-07 07:03 | PCRCNOTE ---
Consider decreasing peep due to pt's PaO2 of 107.
[2024-03-07] MEDS: INSULIN GLARGINE (*BKC) 100 UNITS/ML 40 UNITS SUB-Q (08:36)
[2024-03-07] MEDS: ASPIRIN 81 MG CHEWABLE TABLET PO (08:36)
[2024-03-07] MEDS: ATORVASTATIN 40 MG TABLET 80 MG PO (08:36)
[2024-03-07] MEDS: MINERAL OIL/WHITE PETROLATUM OINTMENT 1 APPLIC EACH EYE ×2 (08:36→20:40)
[2024-03-07] MEDS: METOPROLOL TARTRATE 25 MG TABLET FEED TUBE ×2 (08:36→20:39)
[2024-03-07] MEDS: LOSARTAN POTASSIUM 25 MG TABLET PO (08:36)
[2024-03-07] MEDS: PANTOPRAZOLE SODIUM IV 40 MG VIAL IV PUSH ×2 (08:36→20:39)
--- NOTE | 2024-03-07 08:43 | P.PNINT_ITS ---
Progress Note: A&P Assessment and Plan (1) Acute respiratory failure with hypoxia: Code(s): J96.01 - Acute respiratory failure with hypoxia Status: Acute Assessment and Plan: Acute respiratory failure likely related to cardiac arrest, aspiration pneumonia, NSTEMI, hypoxia, septic shock Worsening likely secondary to ARDS versus pulmonary edema -currently CMV mode of ventilation, peep of 8, 30 % FiO2. Decrease tidal volume to 380 -chest x-ray reviewed and shows bilateral infiltrates and large effusions -continue bronchodilators -on fentanyl and Versed infusion for sedation. Sedation holiday today -off Nimbex for neuromuscular brayden -will request IR for thoracentesis on the right side (2) Cardiac arrest with pulseless electrical activity: Code(s): I46.9 - Cardiac arrest, cause unspecified Status: Acute Assessment and Plan: Cardiac arrest, secondary to unknown etiology. Possible aspiration pneumonia, NSTEMI, hypoxia, septic shock, infection -see code blue sheet for the details -patient currently intubated, vasopressors for blood pressure support have been weaned off -appreciate cardiology following the patient 02/29/2024 echocardiogram Summary 1. Technically difficult study with limited views. 2. Left ventricular chamber dimension is normal. 3. Left ventricular systolic function is mildly reduced, estimated at 45-50%. The apex appears to be hypokinetic. 4. There is mildly increased left ventricular wall thickness. 5. The left ventricular diastolic function is grade I diastolic dysfunction. 6. Right ventricular systolic function is normal. 7. Left atrial chamber dimension is moderately enlarged. 8. There is mild to moderate tricuspid valve regurgitation. 9. There is small anterior pericardial effusion. (3) Septic shock: Code(s): A41.9 - Sepsis, unspecified organism; R65.21 - Severe sepsis with septic shock Status: Acute Assessment and Plan: Patient in shock, likely related to the gangrene, aspiration pneumonia, status post cardiac arrest 02/28/2024: Blood cultures have been obtained and negative till now -lactic acid has normalized -patient has been adequately fluid-resuscitated -OFF Levophed -off stress dose steroids -will discontinue midodrine -blood pressure is now elevated (4) NSTEMI (non-ST elevated myocardial infarction): Code(s): I21.4 - Non-ST elevation (NSTEMI) myocardial infarction Status: Acute Assessment and Plan: Increasing troponins, -EKG showed sinus rhythm with T-wave changes in V1 to V5 -appreciate cardiology evaluation and recommendation -Continue aspirin and high-dose a statin -will hold Brilinta. Resumption per General surgery -continue beta-brayden, losartan -03/02 heparin infusion was discontinued after 48 hours for NSTEMI by cardiology (5) Gangrene of right foot: Code(s): I96 - Gangrene, not elsewhere classified Status: Acute Assessment and Plan: CTA showed peripheral arterial disease with total occlusion of the right anterior and posterior tibial arteries and right peroneal artery with distal reconstitution of peroneal artery. This extensive gangrene of the right foot with gas seen on CT of the foot. General surgery spoke to the patient in the ER on the day of admission on 02/27 patient at that time agreed for below-knee amputation. Plan was to do a below- knee amputation on 02/29/2024 but patient had a cardiac arrest that night secondary to sepsis. Surgery at that time was deferred. Patient now is intubated sedated and unable to sign his consent.. Patient has no family and for many years at the detention has had no visitor. He has 1 son which no one has been able to get hold off right several attempts. Considering patient has gangrene of the foot with no vascular supply leading to sepsis and if untreatable lead to his , Dr. Johns will proceed with amputation today. Pr and Dr. Johns has signed 2 physician consent considering patient's clearly expressed wishes prior to cardiac arrest at the time of admission, his current situation and inability to sign the consent form by himself at this time. 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 Postop management per General surgery -continue antibiotics for necrotizing gas gangrene. Patient on meropenem and vancomycin which was started on 02/28/2024 -complete 5 days of clindamycin (6) Osteomyelitis of toe of right foot: Code(s): M86.9 - Osteomyelitis, unspecified Status: Chronic Assessment and Plan: As above (7) Peripheral vascular disease: Code(s): I73.9 - Peripheral vascular disease, unspecified Status: Chronic Assessment and Plan: Patient has history of peripheral vascular disease, coronary artery disease -started on aspirin, patient will require Brilinta since he had a STEMI in 2020 but currently holding Brilinta due to surgery and bleeding (8) Type 2 diabetes mellitus: Qualifiers: 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 complication status: with other specified complication 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: with assisted use Qualified Code(s): E11.69 - Type 2 diabetes mellitus with other specified complication; Z79.4 - FDC (current) use of insulin Code(s): E11.9 - Type 2 diabetes mellitus without complications Status: Acute Assessment and Plan: Currently on sliding scale insulin, Accu-Cheks Hemoglobin A1c this admission is 8.2 Continue Lantus (9) Chronic obstructive pulmonary disease: Code(s): J44.9 - Chronic obstructive pulmonary disease, unspecified Status: Acute Assessment and Plan: Continue DuoNebs -continue Symbicort Plan DVT prophylaxis: Heparin subQ Stress ulcer prophylaxis: Protonix Nutrition: Tube feeds at goal and tolerating Code Status: Full code. Patient has no family available. Care coordination is trying to locate patient's son Critical Care Time Spent: 30 minutes Due to a high probability of clinically significant, life threatening deterioration, the patient required my highest level of preparedness to intervene emergently and I personally spent this critical care time directly and personally managing the patient. This critical care time included obtaining a history; examining the patient; pulse oximetry; ordering and review of studies; arranging urgent treatment with development of a management plan; evaluation of patient's response to treatment; frequent reassessment; and discussions with other providers. It was exclusive of separately billable procedures and treating other patients and teaching time. Please see Assessment and Plan section and the rest of the note for further information on patient assessment and treatment This dictation may have been done utilizing a voice recognition system. Attempts have been made to correct errors. However, there may be uncorrected grammatical, spelling, and recognitions errors present. Subjective Date/time seen: 03/07/24 Overnight events reviewed. Afebrile Continues to be on mechanical ventilation 8 of PEEP Continues to be on vasopressors Continues to be sedated with Versed and fentanyl Tolerating tube feeds. Blood pressure now elevated. Other Vitals acceptable Interval history: Reason for consult: Status post PEA arrest, right foot gangrene with cellulitis, shock 03/05 Right below-knee amputation with placement of posterior Ortho Glass splint, to unit PRBC transfused Review of Systems Review of Systems: ROS unobtainable: Yes unobtainable due to endotracheal tube, unobtainable due to medical condition and unobtainable due to mental status Exam Narrative: General: Patient intubated and sedated HEENT:, pupils are equal and reactive from a sclera is clear Neck:? supple Respiratory:? Coarse breath sounds bilaterally, decreased at bases, adequate air entry Cardiac:? S1-S2 normal, regular rate and rhythm Abdomen:? Soft, nontender, nondistended, hypoactive bowel sounds Extremities:? Right BKA stump under the dressing Neuro:? Patient is intubated, sedated, PERRL Skin:? Patient has maceration of his perianal area, and states to pressure ulcer on his buttocks. Psych:? Unable to assess at this time Objective Data Vital Signs Vital Signs: Vital Signs - 24 hr 03/06/24 09:43 03/06/24 10:00 03/06/24 10:00 Temperature Pulse Rate 106 H 102 H 102 H Respiratory Rate 16 16 16 Blood Pressure Pulse Oximetry Oxygen Delivery Fraction of Inspired Oxygen 03/06/24 10:00 03/06/24 10:00 03/06/24 10:04 Temperature 37.8 C H Pulse Rate 102 H 102 H 104 H Respiratory Rate 16 Blood Pressure 114/53 L Pulse Oximetry 97 97 Oxygen Delivery Mechanical Ventilation Fraction of Inspired Oxygen 30 03/06/24 12:02 03/06/24 12:02 03/06/24 12:00 Temperature Pulse Rate 100 100 Respiratory Rate 18 18 Blood Pressure Pulse Oximetry Oxygen Delivery Fraction of Inspired Oxygen 30 03/06/24 12:00 03/06/24 12:17 03/06/24 12:30 Temperature 37.7 C H Pulse Rate 100 100 104 H Respiratory Rate 18 18 16 Blood Pressure 113/48 L Pulse Oximetry 98 Oxygen Delivery Fraction of Inspired Oxygen 03/06/24 12:45 03/06/24 13:00 03/06/24 13:00 Temperature Pulse Rate 106 H 104 H 103 H Respiratory Rate 18 16 Blood Pressure Pulse Oximetry 97 Oxygen Delivery Mechanical Ventilation Fraction of Inspired Oxygen 30 03/06/24 13:00 03/06/24 13:10 03/06/24 12:00 Temperature Pulse Rate 103 H 105 H 105 H Respiratory Rate 16 16 16 Blood Pressure Pulse Oximetry 97 Oxygen Delivery Mechanical Ventilation Fraction of Inspired Oxygen 30 03/06/24 12:00 03/06/24 14:00 03/06/24 14:00 Temperature 37.7 C H Pulse Rate 98 104 H 104 H Respiratory Rate 18 Blood Pressure 138/55 L Pulse Oximetry 99 Oxygen Delivery Fraction of Inspired Oxygen 03/06/24 14:00 03/06/24 14:00 03/06/24 16:25 Temperature Pulse Rate 104 H 104 H 108 H Respiratory Rate 18 18 Blood Pressure Pulse Oximetry 98 Oxygen Delivery Mechanical Ventilation Fraction of Inspired Oxygen 30 03/06/24 16:02 03/06/24 16:02 03/06/24 16:00 Temperature Pulse Rate 106 H 106 H 106 H Respiratory Rate 16 16 16 Blood Pressure Pulse Oximetry 97 Oxygen Delivery Mechanical Ventilation Fraction of Inspired Oxygen 30 03/06/24 16:00 03/06/24 16:00 03/06/24 18:00 Temperature 37.8 C H 37.6 C Pulse Rate 106 H 107 H Respiratory Rate 16 14 Blood Pressure 136/51 L 125/56 L Pulse Oximetry 97 97 Oxygen Delivery Fraction of Inspired Oxygen 30 03/06/24 18:00 03/06/24 18:00 03/06/24 16:00 Temperature Pulse Rate 107 H 107 H 110 H Respiratory Rate 14 14 Blood Pressure Pulse Oximetry Oxygen Delivery Fraction of Inspired Oxygen 03/06/24 18:00 03/06/24 20:08 03/06/24 20:06 Temperature Pulse Rate 107 H 105 H 109 H Respiratory Rate 19 Blood Pressure Pulse Oximetry 98 Oxygen Delivery Mechanical Ventilation Fraction of Inspired Oxygen 30 03/06/24 20:18 03/06/24 20:00 03/06/24 20:00 Temperature Pulse Rate 108 H 103 H 103 H Respiratory Rate 24 H 18 18 Blood Pressure Pulse Oximetry Oxygen Delivery Fraction of Inspired Oxygen 03/06/24 21:19 03/06/24 20:00 03/06/24 20:00 Temperature 37.6 C Pulse Rate 106 H 104 H 102 H Respiratory Rate 16 Blood Pressure 136/55 L Pulse Oximetry 99 Oxygen Delivery Fraction of Inspired Oxygen 03/06/24 20:00 03/06/24 20:00 03/06/24 22:00 Temperature Pulse Rate 95 Respiratory Rate 16 Blood Pressure Pulse Oximetry 98 Oxygen Delivery Mechanical Ventilation Fraction of Inspired Oxygen 30 30 03/06/24 22:00 03/06/24 22:00 03/06/24 22:00 Temperature 37.5 C Pulse Rate 95 95 95 Respiratory Rate 16 16 16 Blood Pressure 136/61 Pulse Oximetry 99 Oxygen Delivery Fraction of Inspired Oxygen 03/07/24 00:00 03/07/24 00:00 03/07/24 00:00 Temperature 37.4 C Pulse Rate 83 80 Respiratory Rate 16 Blood Pressure 125/59 L Pulse Oximetry 100 Oxygen Delivery Fraction of Inspired Oxygen 30 03/07/24 00:00 03/06/24 23:10 03/07/24 02:07 Temperature Pulse Rate 83 89 Respiratory Rate 16 18 Blood Pressure Pulse Oximetry 100 100 Oxygen Delivery Mechanical Ventilation Mechanical Ventilation Fraction of Inspired Oxygen 30 30 03/07/24 02:07 03/07/24 02:00 03/07/24 02:00 Temperature 37.4 C Pulse Rate 84 86 86 Respiratory Rate 16 Blood Pressure 128/60 Pulse Oximetry 100 99 Oxygen Delivery Mechanical Ventilation Fraction of Inspired Oxygen 30 03/07/24 00:00 03/07/24 02:00 03/07/24 00:00 Temperature Pulse Rate 80 86 80 Respiratory Rate 16 16 16 Blood Pressure Pulse Oximetry Oxygen Delivery Fraction of Inspired Oxygen 03/07/24 02:00 03/07/24 04:00 03/07/24 04:00 Temperature Pulse Rate 86 85 85 Respiratory Rate 16 16 16 Blood Pressure Pulse Oximetry Oxygen Delivery Fraction of Inspired Oxygen 03/07/24 04:00 03/07/24 04:00 03/07/24 05:05 Temperature 37.3 C Pulse Rate 85 75 Respiratory Rate 16 Blood Pressure 130/60 Pulse Oximetry 99 100 Oxygen Delivery Mechanical Ventilation Fraction of Inspired Oxygen 30 30 03/07/24 04:00 03/07/24 04:00 03/07/24 04:00 Temperature Pulse Rate 83 Respiratory Rate 16 Blood Pressure Pulse Oximetry 99 Oxygen Delivery Mechanical Ventilation Fraction of Inspired Oxygen 30 30 03/07/24 06:00 03/07/24 06:00 03/07/24 06:00 Temperature 37.1 C Pulse Rate 105 H 105 H 105 H Respiratory Rate 16 16 Blood Pressure 124/54 L Pulse Oximetry 97 Oxygen Delivery Fraction of Inspired Oxygen 03/07/24 06:00 03/07/24 07:41 03/07/24 07:52 Temperature Pulse Rate 105 H 85 89 Respiratory Rate 16 16 18 Blood Pressure Pulse Oximetry Oxygen Delivery Fraction of Inspired Oxygen 03/07/24 07:52 03/07/24 07:00 03/07/24 07:00 Temperature Pulse Rate 87 83 83 Respiratory Rate 17 17 Blood Pressure Pulse Oximetry 100 Oxygen Delivery Mechanical Ventilation Fraction of Inspired Oxygen 30 03/07/24 08:00 03/07/24 08:36 03/07/24 07:51 Temperature 37.1 C Pulse Rate 103 H 107 H 90 Respiratory Rate 18 18 Blood Pressure 146/63 H Pulse Oximetry 100 Oxygen Delivery Fraction of Inspired Oxygen 03/07/24 07:51 Temperature Pulse Rate 90 Respiratory Rate 16 Blood Pressure Pulse Oximetry Oxygen Delivery Fraction of Inspired Oxygen Intake/Output Intake/Output: Intake & Output 03/04/24 03/05/24 03/06/24 03/07/24 23:59 23:59 23:59 23:59 Intake Total 2613.8 2823.0 2379.6 842.0 Output Total 2150 2950 4800 1700 Balance 463.8 -127.0 -2420.4 -858.0 Meds/Results Medications: Active Medications Generic Name Dose Route Start Last Admin Trade Name Freq PRN Reason Stop Dose Admin Acetaminophen 500 mg 02/28/24 19:15 Acetaminophen 500 Mg Tablet PO Q6H PRN Pain Rated 1-3 Albuterol/Ipratropium 3 ml 02/29/24 02:00 03/07/24 07:38 Ipratropium 0.5 Mg/Albuterol Sulfate 2.5 Mg Ampul.Neb 3 Ml INHALATION 3 ml Q6HRT JASON Administration Alteplase, Recombinant 2 mg 03/06/24 09:45 03/06/24 13:10 Alteplase 2 Mg Vial (Cathflo) IV PUSH 2 mg ONCE PRN Administration Line Occlusion Aspirin 81 mg 03/01/24 08:00 03/07/24 08:36 Aspirin 81 Mg Chewable Tablet PO 81 mg DAILY@0800 [facility] Administration Atorvastatin Calcium 80 mg 03/01/24 09:00 03/07/24 08:36 Atorvastatin 40 Mg Tablet PO 80 mg DAILY JASON Administration Dextrose 12.5 gm 02/28/24 19:23 Dextrose 50% 25 Gm/50 Ml Syringe IV PUSH PRN PRN Hypoglycemia Protocol Glucagon 1 mg 02/28/24 19:23 Glucagon For Inj 1 Mg Vial IM PRN PRN Hypoglycemia Protocol Glucose 15 gm 02/28/24 19:23 Glucose Oral Gel 15 Gm Of Glucse In 37.5 Gm Tube PO PRN PRN Hypoglycemia Protocol Heparin Sodium (Porcine) 5,000 units 03/03/24 14:00 03/07/24 05:23 Heparin Sodium 5,000 Units/Ml Vial SUB-Q 5,000 units Q8HR JASON Administration Hydralazine HCl 10 mg 03/03/24 15:19 Hydralazine Hcl 20 Mg/Ml Vial IV PUSH Q4HR PRN Hypertension Dextrose 1,000 mls @ 100 mls/hr 02/28/24 19:23 Dextrose 5% 1,000 Ml IVPB PRN PRN Hypoglycemia Protocol Fentanyl Citrate 2,500 mcg in 250 mls @ 10 mls/hr 02/28/24 21:20 03/07/24 07:51 Fentanyl 2,500 Mcg/Ns 250 Ml IV CONT Infused .Q25H JASON Titration Protocol 100 MCG/HR Midazolam HCl 100 mg in 100 mls @ 0 mls/hr 02/28/24 21:20 03/07/24 07:51 Versed 100 Mg/Ns 100 Ml IV CONT 0 mg/hr .Q0M JASON 0 mls/hr Titration Protocol Meropenem 1 gm in 100 mls @ 200 mls/hr 02/28/24 22:00 03/07/24 05:21 IVPB 200 mls/hr Q8H JASON Administration Vancomycin HCl 1,500 mg in 500 mls @ 250 mls/hr 03/03/24 22:00 03/06/24 23:21 Vancomycin 1,500 Mg/Ns 500 Ml IVPB Infused Q24H JASON Infusion Insulin Aspart 3 - 6 units 03/01/24 00:00 03/07/24 06:53 Insulin Aspart (*Bkc) 100 Units/Ml SUB-Q Not Given Q6H JASON Protocol Insulin Glargine 40 units 03/05/24 09:00 03/07/24 08:36 Insulin Glargine (*Bkc) 100 Units/Ml SUB-Q 40 units DAILY JASON Administration Losartan Potassium 25 mg 03/07/24 09:00 03/07/24 08:36 Losartan Potassium 25 Mg Tablet PO 25 mg DAILY JASON Administration Metoclopramide HCl 10 mg 03/04/24 08:00 03/07/24 05:23 Metoclopramide Hcl 10 Mg/10 Ml Soln Udc FEED TUBE 10 mg Q6HR JASON Administration Metoprolol Tartrate 25 mg 03/06/24 21:00 03/07/24 08:36 Metoprolol Tartrate 25 Mg Tablet FEED TUBE 25 mg Q12HR JASON Administration Midodrine 5 mg 03/05/24 13:00 03/06/24 17:33 Midodrine Hcl 2.5 Mg Tablet PO 5 mg TID JASON Administration Multi-Ingred Cream/Lotion/Oil/Oint 1 applic 02/29/24 09:00 03/07/24 08:36 Mineral Oil/White Petrolatum Ointment EACH EYE 1 applic Q12HR JASON Administration Pantoprazole Sodium 40 mg 03/02/24 09:00 03/07/24 08:36 Pantoprazole Sodium Iv 40 Mg Vial IV PUSH 40 mg Q12HR JASON Administration Sodium Chloride 10 ml 02/29/24 06:00 03/07/24 05:24 Central Line Flush IV PUSH 10 ml Q8HR JASON Administration Sodium Chloride 20 ml 02/28/24 23:37 Central Line Flush IV PUSH PRN PRN after blood draws Radiology Results: ITS Impressions Lower Extremity CTA 02/28/24 14:54 IMPRESSION: 1. 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 2. Moderate stenosis of right popliteal artery. 3. Osteomyelitis involving first proximal and distal phalanges and head of first metatarsal. Head CT 02/29/24 05:55 Impression: No intracranial hemorrhage, mass, or acute infarct. Stable chronic encephalomalacia in the high left parietal lobe. Atrophy and chronic white matter changes, as above. Chest/Abdomen/Pelvis CTA 02/29/24 06:02 Impression: Extensive right upper lobe consolidation and more mild right middle lobe consolidation, consistent with pneumonia. Consider aspiration pneumonia. Moderate to large right pleural effusion with complete atelectasis of the right lower lobe. Moderate left pleural effusion with minimal left basilar atelectasis. Small pericardial effusion. No definite acute abnormality in the abdomen or pelvis. Chronic compression fractures, as above. Renal Ultrasound 03/03/24 15:45 IMPRESSION: 1. Normal kidneys without hydronephrosis. 2. Small amount of ascites in the abdomen and pelvis. Chest X-Ray 03/07/24 06:18 IMPRESSION: 1. Stable diffuse lung disease, consistent with pneumonia. 2. Stable small right pleural effusion. Labs Labs: Laboratory Results - last 24 hr 03/03/24 03/06/24 03/06/24 09:09 12:28 15:33 WBC RBC Hgb Hct MCV MCH MCHC RDW Plt Count MPV Puncture Site ABG pH ABG pCO2 ABG pO2 ABG PO2/FiO2 Ratio ABG HCO3 ABG O2 Saturation ABG O2 Content ABG Base Excess A-a Gradient Oxyhemoglobin Carboxyhemoglobin Methemoglobin Reduced Hemoglobin Total Hemoglobin O2 Delivery Device O2 Liters/Min Minute Volume Vent Rate Vent Mode FiO2 Tidal Volume PEEP Peak Inspir Pressure Pressure Support Sodium 143 Potassium 4.2 Chloride 110 H Carbon Dioxide 31 H Anion Gap 2 L BUN 43 H Creatinine 0.80 Estim Creat Clear Calc 91 Estimated GFR > 60 Glucose 210 H POC Capillary Glucose 169 H Calcium 7.9 L Magnesium Total Bilirubin AST ALT Alkaline Phosphatase Total Protein Albumin Ur Random Creatinine 73 Ur Random Chloride 37 U Random Chloride/Creat 51 03/06/24 03/06/24 03/07/24 17:22 23:36 05:05 WBC RBC Hgb Hct MCV MCH MCHC RDW Plt Count MPV Puncture Site Artline ABG pH 7.498 H ABG pCO2 38.5 ABG pO2 107.5 H ABG PO2/FiO2 Ratio 3.58 ABG HCO3 29.2 H ABG O2 Saturation 98.3 ABG O2 Content 12.3 L ABG Base Excess 5.6 A-a Gradient 61.2 Oxyhemoglobin 96.8 Carboxyhemoglobin 1.1 Methemoglobin 0.3 Reduced Hemoglobin 1.8 Total Hemoglobin 8.9 L O2 Delivery Device Ventilator O2 Liters/Min Not Reportable Minute Volume Not Reportable Vent Rate 16 Vent Mode Cmv FiO2 30 Tidal Volume 410 PEEP 8 Peak Inspir Pressure Not Reportable Pressure Support Not Reportable Sodium Potassium Chloride Carbon Dioxide Anion Gap BUN Creatinine Estim Creat Clear Calc Estimated GFR Glucose POC Capillary Glucose 217 H 166 H Calcium Magnesium Total Bilirubin AST ALT Alkaline Phosphatase Total Protein Albumin Ur Random Creatinine Ur Random Chloride U Random Chloride/Creat 03/07/24 06:13 WBC 22.8 H RBC 3.02 L Hgb 8.5 L Hct 27.1 L MCV 89.7 MCH 28.1 MCHC 31.4 L RDW 16.6 H Plt Count 288 MPV 9.8 Puncture Site ABG pH ABG pCO2 ABG pO2 ABG PO2/FiO2 Ratio ABG HCO3 ABG O2 Saturation ABG O2 Content ABG Base Excess A-a Gradient Oxyhemoglobin Carboxyhemoglobin Methemoglobin Reduced Hemoglobin Total Hemoglobin O2 Delivery Device O2 Liters/Min Minute Volume Vent Rate Vent Mode FiO2 Tidal Volume PEEP Peak Inspir Pressure Pressure Support Sodium 146 H Potassium 3.9 Chloride 110 H Carbon Dioxide 34 H Anion Gap 2 L BUN 39 H Creatinine 0.70 Estim Creat Clear Calc 101 Estimated GFR > 60 Glucose 176 H POC Capillary Glucose Calcium 8.0 L Magnesium 2.5 H Total Bilirubin 0.4 AST 48 ALT 37 Alkaline Phosphatase 78 Total Protein 6.0 L Albumin 2.6 L Ur Random Creatinine Ur Random Chloride U Random Chloride/Creat Quality VTE Prophylaxis VTE prophylaxis: pharmacologic ordered
[2024-03-07 08:53] LABS: pH ABG 7.284 (7.350-7.450)
--- NOTE | 2024-03-07 11:09 | PCNFU ---
Nutrition Follow-Up Complete: Suboptimal Energy Intake as related to mechanical vent as evidenced by NPO. Meet estimated nutritional needs - Goal not being met with tube feeding because of increased needs from wound healing. Continue with same goal. Goal: Pt current nutrition is Glucerna 1.2 @goal rate 60 ml/h: 1584 kcal, 79 g protein, 1062 ml free water meeting ~ 87% EER (Kramer state) and ~60% estimated protein needs (1.8 g/kg IBW) Nutrition recommendation: Continue with Glucerna 1.2 @ goal rate 60 ml/h. Add Prosource TF protein modular BID for 160 kcal and 40 g protein. Add Minh BID for additional 80 kcal, 2.5 g protein and arginine and glutamine for wound support. Last recorded weight is 95.3 kg. Bowel Motility: +1 BM 03/07/24 Labs Reviewed: Hgb 8.5, Hct 27.1, Alb 2.6, Na 146, BUN 39, Glu 176, Mag 2.5 Meds Noted: Reglan, fentanyl, Insulin. No pressors. MAP 90 Skin: Stage II pressure to sacrum. R BKA 03/06/24 Additional Notes:Communication with MD garcia: protein supplements and Minh. Continue with tube feeding at goal. Tolerating well Will monitor weight, labs, skin, tube feedings, meds, every Sunday and Sunday.
[2024-03-07 11:45] LABS: INR 1.4; Prothrombin Time 18.1 Seconds (11.1-14.7)
[2024-03-07 11:46] LABS: Partial Thromboplastin Time 48.3 Seconds (22.3-36.8)
[2024-03-07] MEDS: PROPOFOL IV EMULSION 100 ML 2.86 MG IV CONT (11:48)
[2024-03-07] MEDS: FENTANYL 2,500MCG/NS250ML(*CRX 2,500 MCG/250 ML BAG IV CONT (11:51)
[2024-03-07 12:18] LABS: Triglycerides 76 mg/dL (<150)
[2024-03-07 13:08] LABS: Glucose Point of Care 184 mg/dl (65-105)
--- NOTE | 2024-03-07 14:41 | P.PNIM_ITS ---
Progress Note: A&P Assessment and Plan (1) Acute respiratory failure with hypoxia: Code(s): J96.01 - Acute respiratory failure with hypoxia Status: Acute Assessment and Plan: Acute respiratory failure likely related to cardiac arrest, aspiration pneumonia, NSTEMI, hypoxia, septic shock Worsening likely secondary to ARDS versus pulmonary edema -currently CMV mode of ventilation, peep of 8, 30 % FiO2. Decrease tidal volume to 380 -chest x-ray reviewed and shows bilateral infiltrates and large effusions -continue bronchodilators -on fentanyl and Versed infusion for sedation. Sedation holiday today -off Nimbex for neuromuscular brayden -will request IR for thoracentesis on the right side (2) Cardiac arrest with pulseless electrical activity: Code(s): I46.9 - Cardiac arrest, cause unspecified Status: Acute Assessment and Plan: Cardiac arrest, secondary to unknown etiology. Possible aspiration pneumonia, NSTEMI, hypoxia, septic shock, infection -see code blue sheet for the details -patient currently intubated, vasopressors for blood pressure support have been weaned off -appreciate cardiology following the patient 02/29/2024 echocardiogram Summary 1. Technically difficult study with limited views. 2. Left ventricular chamber dimension is normal. 3. Left ventricular systolic function is mildly reduced, estimated at 45-50%. The apex appears to be hypokinetic. 4. There is mildly increased left ventricular wall thickness. 5. The left ventricular diastolic function is grade I diastolic dysfunction. 6. Right ventricular systolic function is normal. 7. Left atrial chamber dimension is moderately enlarged. 8. There is mild to moderate tricuspid valve regurgitation. 9. There is small anterior pericardial effusion. (3) Septic shock: Code(s): A41.9 - Sepsis, unspecified organism; R65.21 - Severe sepsis with septic shock Status: Acute Assessment and Plan: Patient in shock, likely related to the gangrene, aspiration pneumonia, status post cardiac arrest 02/28/2024: Blood cultures have been obtained and negative till now -lactic acid has normalized -patient has been adequately fluid-resuscitated -OFF Levophed -off stress dose steroids -will discontinue midodrine -blood pressure is now elevated (4) NSTEMI (non-ST elevated myocardial infarction): Code(s): I21.4 - Non-ST elevation (NSTEMI) myocardial infarction Status: Acute Assessment and Plan: Increasing troponins, -EKG showed sinus rhythm with T-wave changes in V1 to V5 -appreciate cardiology evaluation and recommendation -Continue aspirin and high-dose a statin -will hold Brilinta. Resumption per General surgery -continue beta-brayden, losartan -03/02 heparin infusion was discontinued after 48 hours for NSTEMI by cardiology (5) Gangrene of right foot: Code(s): I96 - Gangrene, not elsewhere classified Status: Acute Assessment and Plan: CTA showed peripheral arterial disease with total occlusion of the right anterior and posterior tibial arteries and right peroneal artery with distal reconstitution of peroneal artery. This extensive gangrene of the right foot with gas seen on CT of the foot. General surgery spoke to the patient in the ER on the day of admission on 02/27 patient at that time agreed for below-knee amputation. Plan was to do a below- knee amputation on 02/29/2024 but patient had a cardiac arrest that night secondary to sepsis. Surgery at that time was deferred. Patient now is intubated sedated and unable to sign his consent.. Patient has no family and for many years at the residential has had no visitor. He has 1 son which no one has been able to get hold off right several attempts. Considering patient has gangrene of the foot with no vascular supply leading to sepsis and if untreatable lead to his , Dr. Johns will proceed with amputation today. [place] and Dr. Johns has signed 2 physician consent considering patient's clearly expressed wishes prior to cardiac arrest at the time of admission, his current situation and inability to sign the consent form by himself at this time. 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 Postop management per General surgery -continue antibiotics for necrotizing gas gangrene. Patient on meropenem and vancomycin which was started on 02/28/2024 -complete 5 days of clindamycin (6) Osteomyelitis of toe of right foot: Code(s): M86.9 - Osteomyelitis, unspecified Status: Chronic Assessment and Plan: As above (7) Peripheral vascular disease: Code(s): I73.9 - Peripheral vascular disease, unspecified Status: Chronic Assessment and Plan: Patient has history of peripheral vascular disease, coronary artery disease -started on aspirin, patient will require Brilinta since he had a STEMI in 2020 but currently holding Brilinta due to surgery and bleeding (8) Type 2 diabetes mellitus: Qualifiers: 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 complication status: with other specified complication 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 superintendent terminal insulin use: with senior care use Qualified Code(s): E11.69 - Type 2 diabetes mellitus with other specified complication; Z79.4 - MCFP (current) use of insulin Code(s): E11.9 - Type 2 diabetes mellitus without complications Status: Acute Assessment and Plan: Currently on sliding scale insulin, Accu-Cheks Hemoglobin A1c this admission is 8.2 Continue Lantus (9) Chronic obstructive pulmonary disease: Code(s): J44.9 - Chronic obstructive pulmonary disease, unspecified Status: Acute Assessment and Plan: Continue DuoNebs -continue Symbicort Subjective Date/time seen: 03/07/24 14:41 Interval history: Patient is still intubated and on vasopressors Review of Systems Review of Systems: 12 systems were reviewed and are negativ e except for as per HPI. ROS unobtainable: Yes unobtainable due to endotracheal tube, unobtainable due to medical condition and unobtainable due to mental status Exam Narrative: General: Patient intubated and sedated HEENT:, pupils are equal and reactive from a sclera is clear Neck:? supple Respiratory:? Coarse breath sounds bilaterally, decreased at bases, adequate air entry Cardiac:? S1-S2 normal, regular rate and rhythm Abdomen:? Soft, nontender, nondistended, hypoactive bowel sounds Extremities:? Right BKA stump under the dressing Neuro:? Patient is intubated, sedated, PERRL Skin:? Patient has maceration of his perianal area, and states to pressure ulcer on his buttocks. Psych:? Unable to assess at this time Objective Data Vital Signs Vital Signs: Vital Signs - 24 hr 03/06/24 16:25 03/06/24 16:02 03/06/24 16:02 Temperature Pulse Rate 108 H 106 H 106 H Respiratory Rate 16 16 Blood Pressure Pulse Oximetry 98 Oxygen Delivery Mechanical Ventilation Fraction of Inspired Oxygen 30 03/06/24 16:00 03/06/24 16:00 03/06/24 16:00 Temperature 100.0 F H Pulse Rate 106 H 106 H Respiratory Rate 16 16 Blood Pressure 136/51 L Pulse Oximetry 97 97 Oxygen Delivery Mechanical Ventilation Fraction of Inspired Oxygen 30 30 03/06/24 18:00 03/06/24 18:00 03/06/24 18:00 Temperature 99.6 F Pulse Rate 107 H 107 H 107 H Respiratory Rate 14 14 14 Blood Pressure 125/56 L Pulse Oximetry 97 Oxygen Delivery Fraction of Inspired Oxygen 03/06/24 16:00 03/06/24 18:00 03/06/24 20:08 Temperature Pulse Rate 110 H 107 H 105 H Respiratory Rate 19 Blood Pressure Pulse Oximetry Oxygen Delivery Fraction of Inspired Oxygen 03/06/24 20:06 03/06/24 20:18 03/06/24 20:00 Temperature Pulse Rate 109 H 108 H 103 H Respiratory Rate 24 H 18 Blood Pressure Pulse Oximetry 98 Oxygen Delivery Mechanical Ventilation Fraction of Inspired Oxygen 30 03/06/24 20:00 03/06/24 21:19 03/06/24 20:00 Temperature Pulse Rate 103 H 106 H 104 H Respiratory Rate 18 Blood Pressure Pulse Oximetry Oxygen Delivery Fraction of Inspired Oxygen 03/06/24 20:00 03/06/24 20:00 03/06/24 20:00 Temperature 99.6 F Pulse Rate 102 H Respiratory Rate 16 16 Blood Pressure 136/55 L Pulse Oximetry 99 98 Oxygen Delivery Mechanical Ventilation Fraction of Inspired Oxygen 30 30 03/06/24 22:00 03/06/24 22:00 03/06/24 22:00 Temperature 99.5 F Pulse Rate 95 95 95 Respiratory Rate 16 16 Blood Pressure 136/61 Pulse Oximetry 99 Oxygen Delivery Fraction of Inspired Oxygen 03/06/24 22:00 03/07/24 00:00 03/07/24 00:00 Temperature Pulse Rate 95 83 Respiratory Rate 16 Blood Pressure Pulse Oximetry Oxygen Delivery Fraction of Inspired Oxygen 30 03/07/24 00:00 03/07/24 00:00 03/06/24 23:10 Temperature 99.3 F Pulse Rate 80 83 Respiratory Rate 16 16 Blood Pressure 125/59 L Pulse Oximetry 100 100 100 Oxygen Delivery Mechanical Ventilation Mechanical Ventilation Fraction of Inspired Oxygen 30 30 03/07/24 02:07 03/07/24 02:07 03/07/24 02:00 Temperature Pulse Rate 89 84 86 Respiratory Rate 18 Blood Pressure Pulse Oximetry 100 Oxygen Delivery Mechanical Ventilation Fraction of Inspired Oxygen 30 03/07/24 02:00 03/07/24 00:00 03/07/24 02:00 Temperature 99.4 F Pulse Rate 86 80 86 Respiratory Rate 16 16 16 Blood Pressure 128/60 Pulse Oximetry 99 Oxygen Delivery Fraction of Inspired Oxygen 03/07/24 00:00 03/07/24 02:00 03/07/24 04:00 Temperature Pulse Rate 80 86 85 Respiratory Rate 16 16 16 Blood Pressure Pulse Oximetry Oxygen Delivery Fraction of Inspired Oxygen 03/07/24 04:00 03/07/24 04:00 03/07/24 04:00 Temperature 99.2 F Pulse Rate 85 85 Respiratory Rate 16 16 Blood Pressure 130/60 Pulse Oximetry 99 Oxygen Delivery Fraction of Inspired Oxygen 30 03/07/24 05:05 03/07/24 04:00 03/07/24 04:00 Temperature Pulse Rate 75 Respiratory Rate 16 Blood Pressure Pulse Oximetry 100 99 Oxygen Delivery Mechanical Ventilation Mechanical Ventilation Fraction of Inspired Oxygen 30 30 30 03/07/24 04:00 03/07/24 06:00 03/07/24 06:00 Temperature 98.7 F Pulse Rate 83 105 H 105 H Respiratory Rate 16 Blood Pressure 124/54 L Pulse Oximetry 97 Oxygen Delivery Fraction of Inspired Oxygen 03/07/24 06:00 03/07/24 06:00 03/07/24 07:41 Temperature Pulse Rate 105 H 105 H 85 Respiratory Rate 16 16 16 Blood Pressure Pulse Oximetry Oxygen Delivery Fraction of Inspired Oxygen 03/07/24 07:52 03/07/24 07:52 03/07/24 07:00 Temperature Pulse Rate 89 87 83 Respiratory Rate 18 17 Blood Pressure Pulse Oximetry 100 Oxygen Delivery Mechanical Ventilation Fraction of Inspired Oxygen 30 03/07/24 07:00 03/07/24 08:00 03/07/24 08:36 Temperature 98.8 F Pulse Rate 83 103 H 107 H Respiratory Rate 17 18 Blood Pressure 146/63 H Pulse Oximetry 100 Oxygen Delivery Fraction of Inspired Oxygen 03/07/24 07:51 03/07/24 07:51 03/07/24 10:00 Temperature 99.3 F Pulse Rate 90 90 116 H Respiratory Rate 18 16 18 Blood Pressure 156/70 H Pulse Oximetry 97 Oxygen Delivery Fraction of Inspired Oxygen 03/07/24 09:00 03/07/24 09:00 03/07/24 08:00 Temperature Pulse Rate 110 H 110 H Respiratory Rate 18 18 Blood Pressure Pulse Oximetry Oxygen Delivery Fraction of Inspired Oxygen 30 03/07/24 08:00 03/07/24 10:52 03/07/24 11:48 Temperature Pulse Rate 118 H 119 H Respiratory Rate 22 H Blood Pressure Pulse Oximetry 97 96 Oxygen Delivery Mechanical Ventilation Mechanical Ventilation Fraction of Inspired Oxygen 30 30 03/07/24 11:51 03/07/24 11:00 03/07/24 12:00 Temperature Pulse Rate 118 H 118 H 117 H Respiratory Rate 18 18 18 Blood Pressure Pulse Oximetry Oxygen Delivery Fraction of Inspired Oxygen 03/07/24 12:00 03/07/24 12:00 03/07/24 12:39 Temperature 99.6 F Pulse Rate 120 H 113 H 112 H Respiratory Rate 21 H 19 18 Blood Pressure 137/57 L Pulse Oximetry 96 Oxygen Delivery Fraction of Inspired Oxygen 03/07/24 13:18 03/07/24 13:21 03/07/24 13:34 Temperature Pulse Rate 94 95 96 Respiratory Rate 21 H 21 H Blood Pressure Pulse Oximetry 96 Oxygen Delivery Mechanical Ventilation Fraction of Inspired Oxygen 30 03/07/24 08:00 03/07/24 10:00 Temperature Pulse Rate 93 118 H Respiratory Rate Blood Pressure Pulse Oximetry Oxygen Delivery Fraction of Inspired Oxygen Intake/Output Intake/Output: Intake & Output 03/04/24 03/05/24 03/06/24 03/07/24 23:59 23:59 23:59 23:59 Intake Total 2613.8 2823.0 2379.6 846.6 Output Total 2150 2950 4800 1700 Balance 463.8 -127.0 -2420.4 -853.4 Meds/Results Medications: Active Medications Generic Name Dose Route Start Last Admin Trade Name Freq PRN Reason Stop Dose Admin Acetaminophen 500 mg 02/28/24 19:15 Acetaminophen 500 Mg Tablet PO Q6H PRN Pain Rated 1-3 Albuterol/Ipratropium 3 ml 02/29/24 02:00 03/07/24 13:18 Ipratropium 0.5 Mg/Albuterol Sulfate 2.5 Mg Ampul.Neb 3 Ml INHALATION 3 ml Q6HRT [facility] Administration Alteplase, Recombinant 2 mg 03/06/24 09:45 03/06/24 13:10 Alteplase 2 Mg Vial (Cathflo) IV PUSH 2 mg ONCE PRN Administration Line Occlusion Aspirin 81 mg 03/01/24 08:00 03/07/24 08:36 Aspirin 81 Mg Chewable Tablet PO 81 mg DAILY@0800 [facility] Administration Atorvastatin Calcium 80 mg 03/01/24 09:00 03/07/24 08:36 Atorvastatin 40 Mg Tablet PO 80 mg DAILY JASON Administration Dextrose 12.5 gm 02/28/24 19:23 Dextrose 50% 25 Gm/50 Ml Syringe IV PUSH PRN PRN Hypoglycemia Protocol Glucagon 1 mg 02/28/24 19:23 Glucagon For Inj 1 Mg Vial IM PRN PRN Hypoglycemia Protocol Glucose 15 gm 02/28/24 19:23 Glucose Oral Gel 15 Gm Of Glucse In 37.5 Gm Tube PO PRN PRN Hypoglycemia Protocol Heparin Sodium (Porcine) 5,000 units 03/03/24 14:00 03/07/24 05:23 Heparin Sodium 5,000 Units/Ml Vial SUB-Q 5,000 units Q8HR JASON Administration Hydralazine HCl 10 mg 03/03/24 15:19 Hydralazine Hcl 20 Mg/Ml Vial IV PUSH Q4HR PRN Hypertension Dextrose 1,000 mls @ 100 mls/hr 02/28/24 19:23 Dextrose 5% 1,000 Ml IVPB PRN PRN Hypoglycemia Protocol Fentanyl Citrate 2,500 mcg in 250 mls @ 5 mls/hr 02/28/24 21:20 03/07/24 12:39 Fentanyl 2,500 Mcg/Ns 250 Ml IV CONT 50 mcg/hr .Q50H JASON 5 mls/hr Titration Protocol 50 MCG/HR Meropenem 1 gm in 100 mls @ 200 mls/hr 02/28/24 22:00 03/07/24 05:21 IVPB 200 mls/hr Q8H JASON Administration Vancomycin HCl 1,500 mg in 500 mls @ 250 mls/hr 03/03/24 22:00 03/06/24 23:21 Vancomycin 1,500 Mg/Ns 500 Ml IVPB Infused Q24H JASON Infusion Propofol 100 mls @ 5.718 mls/hr 03/07/24 11:40 03/07/24 12:00 Diprivan IV CONT 10 mcg/kg/min .[id number] JASON 5.72 mls/hr Titration Protocol 10 MCG/KG/MIN Insulin Aspart 3 - 6 units 03/01/24 00:00 03/07/24 12:37 Insulin Aspart (*Bkc) 100 Units/Ml SUB-Q Not Given Q6H JASON Protocol Insulin Glargine 40 units 03/05/24 09:00 03/07/24 08:36 Insulin Glargine (*Bkc) 100 Units/Ml SUB-Q 40 units DAILY JASON Administration Losartan Potassium 25 mg 03/07/24 09:00 03/07/24 08:36 Losartan Potassium 25 Mg Tablet PO 25 mg DAILY JASON Administration Metoclopramide HCl 10 mg 03/04/24 08:00 03/07/24 12:37 Metoclopramide Hcl 10 Mg/10 Ml Soln Udc FEED TUBE 10 mg Q6HR JASON Administration Metoprolol Tartrate 25 mg 03/06/24 21:00 03/07/24 08:36 Metoprolol Tartrate 25 Mg Tablet FEED TUBE 25 mg Q12HR JASON Administration Multi-Ingred Cream/Lotion/Oil/Oint 1 applic 02/29/24 09:00 03/07/24 08:36 Mineral Oil/White Petrolatum Ointment EACH EYE 1 applic Q12HR JASON Administration Multi-Ingred Cream/Lotion/Oil/Oint 1 applic 03/07/24 21:00 Mineral Oil/White Petrolatum Ointment EACH EYE Q12HR JASON Pantoprazole Sodium 40 mg 03/02/24 09:00 03/07/24 08:36 Pantoprazole Sodium Iv 40 Mg Vial IV PUSH 40 mg Q12HR JASON Administration Sodium Chloride 10 ml 02/29/24 06:00 03/07/24 05:24 Central Line Flush IV PUSH 10 ml Q8HR JASON Administration Sodium Chloride 20 ml 02/28/24 23:37 Central Line Flush IV PUSH PRN PRN after blood draws Radiology Results: ITS Impressions Lower Extremity CTA 02/28/24 14:54 IMPRESSION: 1. 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 2. Moderate stenosis of right popliteal artery. 3. Osteomyelitis involving first proximal and distal phalanges and head of first metatarsal. Head CT 02/29/24 05:55 Impression: No intracranial hemorrhage, mass, or acute infarct. Stable chronic encephalomalacia in the high left parietal lobe. Atrophy and chronic white matter changes, as above. Chest/Abdomen/Pelvis CTA 02/29/24 06:02 Impression: Extensive right upper lobe consolidation and more mild right middle lobe consolidation, consistent with pneumonia. Consider aspiration pneumonia. Moderate to large right pleural effusion with complete atelectasis of the right lower lobe. Moderate left pleural effusion with minimal left basilar atelectasis. Small pericardial effusion. No definite acute abnormality in the abdomen or pelvis. Chronic compression fractures, as above. Renal Ultrasound 03/03/24 15:45 IMPRESSION: 1. Normal kidneys without hydronephrosis. 2. Small amount of ascites in the abdomen and pelvis. Chest X-Ray 03/07/24 06:18 IMPRESSION: 1. Stable diffuse lung disease, consistent with pneumonia. 2. Stable small right pleural effusion. Labs Labs: Laboratory Results - last 24 hr 03/03/24 03/06/24 03/06/24 12:16 15:33 17:22 WBC RBC Hgb Hct MCV MCH MCHC RDW Plt Count MPV PT INR APTT Puncture Site ABG pH 7.284 L* ABG pCO2 ABG pO2 ABG PO2/FiO2 Ratio ABG HCO3 ABG O2 Saturation ABG O2 Content ABG Base Excess A-a Gradient Oxyhemoglobin Carboxyhemoglobin Methemoglobin Reduced Hemoglobin Total Hemoglobin O2 Delivery Device O2 Liters/Min Minute Volume Vent Rate Vent Mode FiO2 Tidal Volume PEEP Peak Inspir Pressure Pressure Support Sodium 143 Potassium 4.2 Chloride 110 H Carbon Dioxide 31 H Anion Gap 2 L BUN 43 H Creatinine 0.80 Estim Creat Clear Calc 91 Estimated GFR > 60 Glucose 210 H POC Capillary Glucose 217 H Calcium 7.9 L Magnesium Total Bilirubin AST ALT Alkaline Phosphatase Total Protein Albumin Triglycerides 03/06/24 03/07/24 03/07/24 23:36 05:05 06:12 WBC RBC Hgb Hct MCV MCH MCHC RDW Plt Count MPV PT INR APTT Puncture Site Artline ABG pH 7.498 H ABG pCO2 38.5 ABG pO2 107.5 H ABG PO2/FiO2 Ratio 3.58 ABG HCO3 29.2 H ABG O2 Saturation 98.3 ABG O2 Content 12.3 L ABG Base Excess 5.6 A-a Gradient 61.2 Oxyhemoglobin 96.8 Carboxyhemoglobin 1.1 Methemoglobin 0.3 Reduced Hemoglobin 1.8 Total Hemoglobin 8.9 L O2 Delivery Device Ventilator O2 Liters/Min Not Reportable Minute Volume Not Reportable Vent Rate 16 Vent Mode Cmv FiO2 30 Tidal Volume 410 PEEP 8 Peak Inspir Pressure Not Reportable Pressure Support Not Reportable Sodium Potassium Chloride Carbon Dioxide Anion Gap BUN Creatinine Estim Creat Clear Calc Estimated GFR Glucose POC Capillary Glucose 166 H Calcium Magnesium Total Bilirubin AST ALT Alkaline Phosphatase Total Protein Albumin Triglycerides 76 03/07/24 03/07/24 03/07/24 06:13 11:28 12:35 WBC 22.8 H RBC 3.02 L Hgb 8.5 L Hct 27.1 L MCV 89.7 MCH 28.1 MCHC 31.4 L RDW 16.6 H Plt Count 288 MPV 9.8 PT 18.1 H INR 1.4 APTT 48.3 H Puncture Site ABG pH ABG pCO2 ABG pO2 ABG PO2/FiO2 Ratio ABG HCO3 ABG O2 Saturation ABG O2 Content ABG Base Excess A-a Gradient Oxyhemoglobin Carboxyhemoglobin Methemoglobin Reduced Hemoglobin Total Hemoglobin O2 Delivery Device O2 Liters/Min Minute Volume Vent Rate Vent Mode FiO2 Tidal Volume PEEP Peak Inspir Pressure Pressure Support Sodium 146 H Potassium 3.9 Chloride 110 H Carbon Dioxide 34 H Anion Gap 2 L BUN 39 H Creatinine 0.70 Estim Creat Clear Calc 101 Estimated GFR > 60 Glucose 176 H POC Capillary Glucose 184 H Calcium 8.0 L Magnesium 2.5 H Total Bilirubin 0.4 AST 48 ALT 37 Alkaline Phosphatase 78 Total Protein 6.0 L Albumin 2.6 L Triglycerides Hospitalist MIPS Advance Care Plan I have confirmed that the patient's Advanced Care Plan is present, code status is documented, or surrogate decision maker is listed in patient medical record.: Yes Medication Reconciliation I have utilized all available resources to obtain, update and review the patients current medications (includes all prescriptions, OTC, herbals, cannabis, and nutritional supplements).: Yes
--- NOTE | 2024-03-07 16:33 | PM.PNGS ---
Progress Note: A&P Assessment and Plan (1) Amputation of right lower extremity below knee: Code(s): S88.111A - Complete traumatic amputation at level between knee and ankle, right lower leg, initial encounter Status: Acute Assessment and Plan: Dressing dry. Keep right leg elevated. Remove dressing probably Sunday or Sunday this week. (2) Gangrene of right foot: Code(s): I96 - Gangrene, not elsewhere classified Status: Acute (3) Acute respiratory failure with hypoxia: Code(s): J96.01 - Acute respiratory failure with hypoxia Status: Acute Subjective Subjective Date/Time Seen: 03/07/24 16:33 Post Op day: 2 Patient reports: other (Still on ventilator in ICU) Review of Systems Review of Systems: ROS unobtainable: Yes unobtainable due to endotracheal tube Exam Const: General: ill appearing Orientation/consciousness: patient obtunded (sedated and intubated) Extrem: Right lower extremity: lower leg (Dressing dry and intact, leg elevated) Other: Right BKA stump with marianne wrap dressing in place over posterior ortho glass splint. Dressing dry and intact. Stump is elevated on 2 pillows. Objective Data Vital Signs Vital Signs: Vital Signs - 24 hr 03/06/24 18:00 03/06/24 18:00 03/06/24 18:00 Temperature 37.6 C Pulse Rate 107 H 107 H 107 H Respiratory Rate 14 14 14 Blood Pressure 125/56 L Pulse Oximetry 97 Oxygen Delivery Fraction of Inspired Oxygen 03/06/24 18:00 03/06/24 20:08 03/06/24 20:06 Temperature Pulse Rate 107 H 105 H 109 H Respiratory Rate 19 Blood Pressure Pulse Oximetry 98 Oxygen Delivery Mechanical Ventilation Fraction of Inspired Oxygen 30 03/06/24 20:18 03/06/24 20:00 03/06/24 20:00 Temperature Pulse Rate 108 H 103 H 103 H Respiratory Rate 24 H 18 18 Blood Pressure Pulse Oximetry Oxygen Delivery Fraction of Inspired Oxygen 03/06/24 21:19 03/06/24 20:00 03/06/24 20:00 Temperature 37.6 C Pulse Rate 106 H 104 H 102 H Respiratory Rate 16 Blood Pressure 136/55 L Pulse Oximetry 99 Oxygen Delivery Fraction of Inspired Oxygen 03/06/24 20:00 03/06/24 20:00 03/06/24 22:00 Temperature Pulse Rate 95 Respiratory Rate 16 Blood Pressure Pulse Oximetry 98 Oxygen Delivery Mechanical Ventilation Fraction of Inspired Oxygen 30 30 03/06/24 22:00 03/06/24 22:00 03/06/24 22:00 Temperature 37.5 C Pulse Rate 95 95 95 Respiratory Rate 16 16 16 Blood Pressure 136/61 Pulse Oximetry 99 Oxygen Delivery Fraction of Inspired Oxygen 03/07/24 00:00 03/07/24 00:00 03/07/24 00:00 Temperature 37.4 C Pulse Rate 83 80 Respiratory Rate 16 Blood Pressure 125/59 L Pulse Oximetry 100 Oxygen Delivery Fraction of Inspired Oxygen 30 03/07/24 00:00 03/06/24 23:10 03/07/24 02:07 Temperature Pulse Rate 83 89 Respiratory Rate 16 18 Blood Pressure Pulse Oximetry 100 100 Oxygen Delivery Mechanical Ventilation Mechanical Ventilation Fraction of Inspired Oxygen 30 30 03/07/24 02:07 03/07/24 02:00 03/07/24 02:00 Temperature 37.4 C Pulse Rate 84 86 86 Respiratory Rate 16 Blood Pressure 128/60 Pulse Oximetry 100 99 Oxygen Delivery Mechanical Ventilation Fraction of Inspired Oxygen 30 03/07/24 00:00 03/07/24 02:00 03/07/24 00:00 Temperature Pulse Rate 80 86 80 Respiratory Rate 16 16 16 Blood Pressure Pulse Oximetry Oxygen Delivery Fraction of Inspired Oxygen 03/07/24 02:00 03/07/24 04:00 03/07/24 04:00 Temperature Pulse Rate 86 85 85 Respiratory Rate 16 16 16 Blood Pressure Pulse Oximetry Oxygen Delivery Fraction of Inspired Oxygen 03/07/24 04:00 03/07/24 04:00 03/07/24 05:05 Temperature 37.3 C Pulse Rate 85 75 Respiratory Rate 16 Blood Pressure 130/60 Pulse Oximetry 99 100 Oxygen Delivery Mechanical Ventilation Fraction of Inspired Oxygen 30 30 03/07/24 04:00 03/07/24 04:00 03/07/24 04:00 Temperature Pulse Rate 83 Respiratory Rate 16 Blood Pressure Pulse Oximetry 99 Oxygen Delivery Mechanical Ventilation Fraction of Inspired Oxygen 30 30 03/07/24 06:00 03/07/24 06:00 03/07/24 06:00 Temperature 37.1 C Pulse Rate 105 H 105 H 105 H Respiratory Rate 16 16 Blood Pressure 124/54 L Pulse Oximetry 97 Oxygen Delivery Fraction of Inspired Oxygen 03/07/24 06:00 03/07/24 07:41 03/07/24 07:52 Temperature Pulse Rate 105 H 85 89 Respiratory Rate 16 16 18 Blood Pressure Pulse Oximetry Oxygen Delivery Fraction of Inspired Oxygen 03/07/24 07:52 03/07/24 07:00 03/07/24 07:00 Temperature Pulse Rate 87 83 83 Respiratory Rate 17 17 Blood Pressure Pulse Oximetry 100 Oxygen Delivery Mechanical Ventilation Fraction of Inspired Oxygen 30 03/07/24 08:00 03/07/24 08:36 03/07/24 07:51 Temperature 37.1 C Pulse Rate 103 H 107 H 90 Respiratory Rate 18 18 Blood Pressure 146/63 H Pulse Oximetry 100 Oxygen Delivery Fraction of Inspired Oxygen 03/07/24 07:51 03/07/24 10:00 03/07/24 09:00 Temperature 37.4 C Pulse Rate 90 116 H 110 H Respiratory Rate 16 18 18 Blood Pressure 156/70 H Pulse Oximetry 97 Oxygen Delivery Fraction of Inspired Oxygen 03/07/24 09:00 03/07/24 08:00 03/07/24 08:00 Temperature Pulse Rate 110 H Respiratory Rate 18 Blood Pressure Pulse Oximetry 97 Oxygen Delivery Mechanical Ventilation Fraction of Inspired Oxygen 30 30 03/07/24 10:52 03/07/24 11:48 03/07/24 11:51 Temperature Pulse Rate 118 H 119 H 118 H Respiratory Rate 22 H 18 Blood Pressure Pulse Oximetry 96 Oxygen Delivery Mechanical Ventilation Fraction of Inspired Oxygen 30 03/07/24 11:00 03/07/24 12:00 03/07/24 12:00 Temperature Pulse Rate 118 H 117 H 120 H Respiratory Rate 18 18 21 H Blood Pressure Pulse Oximetry Oxygen Delivery Fraction of Inspired Oxygen 03/07/24 12:00 03/07/24 12:39 03/07/24 13:18 Temperature 37.6 C Pulse Rate 113 H 112 H 94 Respiratory Rate 19 18 21 H Blood Pressure 137/57 L Pulse Oximetry 96 Oxygen Delivery Fraction of Inspired Oxygen 03/07/24 13:21 03/07/24 13:34 03/07/24 08:00 Temperature Pulse Rate 95 96 93 Respiratory Rate 21 H Blood Pressure Pulse Oximetry 96 Oxygen Delivery Mechanical Ventilation Fraction of Inspired Oxygen 30 03/07/24 10:00 03/07/24 12:00 03/07/24 14:00 Temperature Pulse Rate 118 H 115 H 93 Respiratory Rate Blood Pressure Pulse Oximetry Oxygen Delivery Fraction of Inspired Oxygen 10/25/24 12:00 03/07/24 12:00 03/07/24 14:00 Temperature Pulse Rate 91 Respiratory Rate 20 Blood Pressure 101/40 L Pulse Oximetry 97 97 Oxygen Delivery Mechanical Ventilation Fraction of Inspired Oxygen 30 30 03/07/24 14:00 03/07/24 14:00 03/07/24 16:28 Temperature Pulse Rate 117 H 117 H 97 Respiratory Rate 21 H 21 H Blood Pressure Pulse Oximetry 100 Oxygen Delivery Mechanical Ventilation Fraction of Inspired Oxygen 30 03/07/24 16:00 03/07/24 16:00 Temperature 37.7 C H Pulse Rate 92 Respiratory Rate 17 Blood Pressure 100/44 L Pulse Oximetry 96 Oxygen Delivery Fraction of Inspired Oxygen 30 Intake/Output Intake/Output: Intake & Output 03/04/24 03/05/24 03/06/24 03/07/24 23:59 23:59 23:59 23:59 Intake Total 2613.8 2823.0 2379.6 964.8 Output Total 2150 2950 4800 2700 Balance 463.8 -127.0 -2420.4 -1735.2 Meds/Results Medications: Active Medications Generic Name Dose Route Start Last Admin Trade Name Freq PRN Reason Stop Dose Admin Acetaminophen 500 mg 02/28/24 19:15 Acetaminophen 500 Mg Tablet PO Q6H PRN Pain Rated 1-3 Albuterol/Ipratropium 3 ml 02/29/24 02:00 03/07/24 13:18 Ipratropium 0.5 Mg/Albuterol Sulfate 2.5 Mg Ampul.Neb 3 Ml INHALATION 3 ml Q6HRT JASON Administration Alteplase, Recombinant 2 mg 03/06/24 09:45 03/06/24 13:10 Alteplase 2 Mg Vial (Cathflo) IV PUSH 2 mg ONCE PRN Administration Line Occlusion Aspirin 81 mg 03/01/24 08:00 03/07/24 08:36 Aspirin 81 Mg Chewable Tablet PO 81 mg DAILY@0800 [facility] [place] Administration Atorvastatin Calcium 80 mg 03/01/24 09:00 03/07/24 08:36 Atorvastatin 40 Mg Tablet PO 80 mg DAILY JASON Administration Dextrose 12.5 gm 02/28/24 19:23 Dextrose 50% 25 Gm/50 Ml Syringe IV PUSH PRN PRN Hypoglycemia Protocol Glucagon 1 mg 02/28/24 19:23 Glucagon For Inj 1 Mg Vial IM PRN PRN Hypoglycemia Protocol Glucose 15 gm 02/28/24 19:23 Glucose Oral Gel 15 Gm Of Glucse In 37.5 Gm Tube PO PRN PRN Hypoglycemia Protocol Heparin Sodium (Porcine) 5,000 units 03/03/24 14:00 03/07/24 14:52 Heparin Sodium 5,000 Units/Ml Vial SUB-Q 5,000 units Q8HR JASON Administration Hydralazine HCl 10 mg 03/03/24 15:19 Hydralazine Hcl 20 Mg/Ml Vial IV PUSH Q4HR PRN Hypertension Dextrose 1,000 mls @ 100 mls/hr 02/28/24 19:23 Dextrose 5% 1,000 Ml IVPB PRN PRN Hypoglycemia Protocol Fentanyl Citrate 2,500 mcg in 250 mls @ 5 mls/hr 02/28/24 21:20 03/07/24 14:00 Fentanyl 2,500 Mcg/Ns 250 Ml IV CONT 50 mcg/hr .Q50H JASON 5 mls/hr Titration Protocol 50 MCG/HR Meropenem 1 gm in 100 mls @ 200 mls/hr 02/28/24 22:00 03/07/24 14:52 IVPB 200 mls/hr Q8H JASON Administration Vancomycin HCl 1,500 mg in 500 mls @ 250 mls/hr 03/03/24 22:00 03/06/24 23:21 Vancomycin 1,500 Mg/Ns 500 Ml IVPB Infused Q24H JASON Infusion Propofol 100 mls @ 5.718 mls/hr 03/07/24 11:40 03/07/24 14:00 Diprivan IV CONT 10 mcg/kg/min .[id number] JASON 5.72 mls/hr Titration Protocol 10 MCG/KG/MIN Insulin Aspart 3 - 6 units 03/01/24 00:00 03/07/24 12:37 Insulin Aspart (*Bkc) 100 Units/Ml SUB-Q Not Given Q6H JASON Protocol Insulin Glargine 40 units 03/05/24 09:00 03/07/24 08:36 Insulin Glargine (*Bkc) 100 Units/Ml SUB-Q 40 units DAILY JASON Administration Losartan Potassium 25 mg 03/07/24 09:00 03/07/24 08:36 Losartan Potassium 25 Mg Tablet PO 25 mg DAILY JASON Administration Metoclopramide HCl 10 mg 03/04/24 08:00 03/07/24 12:37 Metoclopramide Hcl 10 Mg/10 Ml Soln Udc FEED TUBE 10 mg Q6HR JASON Administration Metoprolol Tartrate 25 mg 03/06/24 21:00 03/07/24 08:36 Metoprolol Tartrate 25 Mg Tablet FEED TUBE 25 mg Q12HR JASON Administration Multi-Ingred Cream/Lotion/Oil/Oint 1 applic 02/29/24 09:00 03/07/24 08:36 Mineral Oil/White Petrolatum Ointment EACH EYE 1 applic Q12HR JASON Administration Multi-Ingred Cream/Lotion/Oil/Oint 1 applic 03/07/24 21:00 Mineral Oil/White Petrolatum Ointment EACH EYE Q12HR JASON Pantoprazole Sodium 40 mg 03/02/24 09:00 03/07/24 08:36 Pantoprazole Sodium Iv 40 Mg Vial IV PUSH 40 mg Q12HR JASON Administration Sodium Chloride 10 ml 02/29/24 06:00 03/07/24 14:53 Central Line Flush IV PUSH 10 ml Q8HR JASON Administration Sodium Chloride 20 ml 02/28/24 23:37 Central Line Flush IV PUSH PRN PRN after blood draws Radiology Results: ITS Impressions Lower Extremity CTA 02/28/24 14:54 IMPRESSION: 1. 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 2. Moderate stenosis of right popliteal artery. 3. Osteomyelitis involving first proximal and distal phalanges and head of first metatarsal. Head CT 02/29/24 05:55 Impression: No intracranial hemorrhage, mass, or acute infarct. Stable chronic encephalomalacia in the high left parietal lobe. Atrophy and chronic white matter changes, as above. Chest/Abdomen/Pelvis CTA 02/29/24 06:02 Impression: Extensive right upper lobe consolidation and more mild right middle lobe consolidation, consistent with pneumonia. Consider aspiration pneumonia. Moderate to large right pleural effusion with complete atelectasis of the right lower lobe. Moderate left pleural effusion with minimal left basilar atelectasis. Small pericardial effusion. No definite acute abnormality in the abdomen or pelvis. Chronic compression fractures, as above. Renal Ultrasound 03/03/24 15:45 IMPRESSION: 1. Normal kidneys without hydronephrosis. 2. Small amount of ascites in the abdomen and pelvis. Thoracentesis Ultrasound 03/07/24 16:03 IMPRESSION: 1. Successful ultrasound-guided thoracentesis yielding 1000 mL of thin yellow fluid, performed at the bedside in ICU. Chest X-Ray 03/07/24 16:20 IMPRESSION: Bilateral pneumonia. Labs Labs: Laboratory Results - last 24 hr 03/03/24 03/06/24 03/06/24 12:16 17:22 23:36 WBC RBC Hgb Hct MCV MCH MCHC RDW Plt Count MPV PT INR APTT Puncture Site ABG pH 7.284 L* ABG pCO2 ABG pO2 ABG PO2/FiO2 Ratio ABG HCO3 ABG O2 Saturation ABG O2 Content ABG Base Excess A-a Gradient Oxyhemoglobin Carboxyhemoglobin Methemoglobin Reduced Hemoglobin Total Hemoglobin O2 Delivery Device O2 Liters/Min Minute Volume Vent Rate Vent Mode FiO2 Tidal Volume PEEP Peak Inspir Pressure Pressure Support Sodium Potassium Chloride Carbon Dioxide Anion Gap BUN Creatinine Estim Creat Clear Calc Estimated GFR Glucose POC Capillary Glucose 217 H 166 H Calcium Magnesium Total Bilirubin AST ALT Alkaline Phosphatase Total Protein Albumin Triglycerides 03/07/24 03/07/24 03/07/24 05:05 06:12 06:13 WBC 22.8 H RBC 3.02 L Hgb 8.5 L Hct 27.1 L MCV 89.7 MCH 28.1 MCHC 31.4 L RDW 16.6 H Plt Count 288 MPV 9.8 PT INR APTT Puncture Site Artline ABG pH 7.498 H ABG pCO2 38.5 ABG pO2 107.5 H ABG PO2/FiO2 Ratio 3.58 ABG HCO3 29.2 H ABG O2 Saturation 98.3 ABG O2 Content 12.3 L ABG Base Excess 5.6 A-a Gradient 61.2 Oxyhemoglobin 96.8 Carboxyhemoglobin 1.1 Methemoglobin 0.3 Reduced Hemoglobin 1.8 Total Hemoglobin 8.9 L O2 Delivery Device Ventilator O2 Liters/Min Not Reportable Minute Volume Not Reportable Vent Rate 16 Vent Mode Cmv FiO2 30 Tidal Volume 410 PEEP 8 Peak Inspir Pressure Not Reportable Pressure Support Not Reportable Sodium 146 H Potassium 3.9 Chloride 110 H Carbon Dioxide 34 H Anion Gap 2 L BUN 39 H Creatinine 0.70 Estim Creat Clear Calc 101 Estimated GFR > 60 Glucose 176 H POC Capillary Glucose Calcium 8.0 L Magnesium 2.5 H Total Bilirubin 0.4 AST 48 ALT 37 Alkaline Phosphatase 78 Total Protein 6.0 L Albumin 2.6 L Triglycerides 76 03/07/24 03/07/24 11:28 12:35 WBC RBC Hgb Hct MCV MCH MCHC RDW Plt Count MPV PT 18.1 H INR 1.4 APTT 48.3 H Puncture Site ABG pH ABG pCO2 ABG pO2 ABG PO2/FiO2 Ratio ABG HCO3 ABG O2 Saturation ABG O2 Content ABG Base Excess A-a Gradient Oxyhemoglobin Carboxyhemoglobin Methemoglobin Reduced Hemoglobin Total Hemoglobin O2 Delivery Device O2 Liters/Min Minute Volume Vent Rate Vent Mode FiO2 Tidal Volume PEEP Peak Inspir Pressure Pressure Support Sodium Potassium Chloride Carbon Dioxide Anion Gap BUN Creatinine Estim Creat Clear Calc Estimated GFR Glucose POC Capillary Glucose 184 H Calcium Magnesium Total Bilirubin AST ALT Alkaline Phosphatase Total Protein Albumin Triglycerides
[2024-03-07 17:43] LABS: Glucose Point of Care 226 mg/dl (65-105)
[2024-03-07] MEDS: INSULIN ASPART (*BKC) 100 UNITS/ML SUB-Q (17:45)
[2024-03-07 21:56] LABS: Vancomycin Trough 12.4 ug/mL (10.0-20.0)
[2024-03-07] MEDS: VANCOMYCIN 1,500 MG/NS 500 ML 1,500 MG/500 ML BAG 250 MG IVPB (22:17)
[2024-03-08] VITALS (46 sets, daily range): BP systolic 117–185; BP diastolic 45–81; PULSE 86–119; RESP 10–25; TEMP 37.4–38.2; O2SAT 95–100
[2024-03-08 00:03] LABS: Glucose Point of Care 215 mg/dl (65-105)
[2024-03-08] MEDS: METOCLOPRAMIDE HCL 10 MG/10 ML SOLN UDC FEED TUBE ×4 (00:31→18:50)
[2024-03-08] MEDS: INSULIN ASPART (*BKC) 100 UNITS/ML SUB-Q ×3 (00:31→19:04)
[2024-03-08] MEDS: IPRATROPIUM 0.5 MG/ALBUTEROL SULFATE 2.5 MG AMPUL.NEB 3 ML INHALATION ×3 (02:16→20:42)
[2024-03-08] MEDS: PROPOFOL IV EMULSION 100 ML 5.72 MG IV CONT ×2 (03:28→23:15)
[2024-03-08 05:10] LABS: Base Excess ABG 8.4 mEq/l (+/-2.0); Carboxyhemoglobin 1.3 % THb (0-2.0); Fractional Inspired Oxygen 30 %; Methemoglobin ABG 0.3 %THb (0-1.5); Oxygen Content ABG 20.1 %vol (16.0-22.0); Oxygen Saturation ABG 98.7 % (95.0-100.0); Oxyhemoglobin 97.3 % THb (90.0-100.0); PCO2 ABG 44.9 mmHg (35.0-45.0); PO2 ABG 125.1 mmHg (80.0-100.0); PO2 FiO2 Ratio Arterial Blood 4.17 %; Reduced Hemoglobin 1.1 %THb (0-5.0); Total Hemoglobin 14.6 g/dL (12.0-18.0); pH ABG 7.484 (7.350-7.450)
[2024-03-08] MEDS: MEROPENEM 1 GM/NS 100 ML 1 GM/100 ML BAG IVPB ×3 (05:15→22:20)
[2024-03-08] MEDS: CENTRAL LINE FLUSH 10 ML IV PUSH ×3 (05:18→22:20)
[2024-03-08] MEDS: HEPARIN SODIUM 5,000 UNITS/ML VIAL 5000 UNITS SUB-Q ×2 (05:18→22:20)
[2024-03-08 05:38] LABS: Device VENTILATOR; Modified Allen's Test Pass; Site Drawn ARTLINE
[2024-03-08 05:40] LABS: Arterial Blood Gas PEEP 8 cmH2O; Arterial Blood Gas Tidal Volume 380 ml; Arterial Blood Gas Vent Mode CMV; Arterial Blood Gas Ventilator rate 16 /MIN
[2024-03-08 05:59] LABS: Hematocrit 27.4 % (42.0-52.0); Hemoglobin 8.3 g/dL (14.0-18.0); Mean Corpuscular HGB Conc 30.3 g/dl (32-36); Mean Corpuscular Hemoglobin 27.8 pg (26-34); Mean Corpuscular Volume 91.6 fl (80-100); Mean Platelet Volume 9.9 fl (7.4-10.4); Platelet Count Result 251 k/mm3 (150-375); Red Blood Count 2.99 M/mm3 (4.6-6.20); Red Cell Distribution Width 16.6 % (11.5-14.5); White Blood Count 18.7 K/mm3 (4.5-10.0)
[2024-03-08 06:09] LABS: Alanine Aminotransferase 34 U/L (6-50); Albumin Level 2.5 g/dL (3.5-5.1); Alkaline Phosphatase 80 U/L (38-126); Anion Gap 4 mmol/L (4-12); Aspartate Amino Transferase 41 U/L (17-59); Bilirubin,Total 0.3 mg/dL (0.2-1.3); Blood Urea Nitrogen 40 mg/dL (9-20); Calcium 8.1 mg/dL (8.4-10.2); Carbon Dioxide 34 mmol/L (22-30); Chloride 112 mmol/L (98-107); Estimated CRCL calculation 118 ml/min; Estimated Glomerular Filt Rate > 60; Glucose 202 mg/dL (65-110); Magnesium 2.4 mg/dL (1.6-2.3); Potassium 3.9 mmol/L (3.4-5.0); Sodium 150 mmol/L (137-145)
[2024-03-08 06:56] LABS: Glucose Point of Care 198 mg/dl (65-105)
[2024-03-08] MEDS: ATORVASTATIN 40 MG TABLET 80 MG PO (08:56)
[2024-03-08] MEDS: METOPROLOL TARTRATE 25 MG TABLET FEED TUBE (08:56)
[2024-03-08] MEDS: ASPIRIN 81 MG CHEWABLE TABLET PO (08:56)
[2024-03-08] MEDS: PANTOPRAZOLE SODIUM IV 40 MG VIAL IV PUSH ×2 (08:56→20:39)
[2024-03-08] MEDS: LOSARTAN POTASSIUM 25 MG TABLET PO (08:56)
[2024-03-08] MEDS: MINERAL OIL/WHITE PETROLATUM OINTMENT 1 APPLIC EACH EYE ×2 (08:57→20:40)
[2024-03-08] MEDS: INSULIN GLARGINE (*BKC) 100 UNITS/ML 40 UNITS SUB-Q (09:03)
--- NOTE | 2024-03-08 09:20 | WPDINTPN ---
Progress Note: A&P Assessment and Plan (1) Acute respiratory failure with hypoxia: Code(s): J96.01 - Acute respiratory failure with hypoxia Status: Acute Assessment and Plan: Acute respiratory failure likely related to cardiac arrest, aspiration pneumonia, NSTEMI, hypoxia, septic shock Worsening likely secondary to ARDS versus pulmonary edema Chest CTA 02/28 Extensive right upper lobe consolidation and more mild right middle lobe consolidation, consistent with pneumonia. Consider aspiration pneumonia. Moderate to large right pleural effusion with complete atelectasis of the right lower lobe. Moderate left pleural effusion with minimal left basilar atelectasis. Small pericardial effusion. No definite acute abnormality in the abdomen or pelvis. Chronic compression fractures, as above -currently CMV mode of ventilation, peep of 8, 30 % FiO2. Tidal volume 380 -chest x-ray reviewed and shows bilateral infiltrates and large effusions. Advance ET tube by 2 cm -continue bronchodilators -on propofol and Versed infusion for sedation. Sedation holiday today -off Nimbex for neuromuscular brayden -03/07 right thoracentesis with 1 L fluid removed -03/08 patient is getting left-sided thoracentesis today -sedation holiday post thoracentesis to evaluate for weaning trial (2) Cardiac arrest with pulseless electrical activity: Code(s): I46.9 - Cardiac arrest, cause unspecified Status: Acute Assessment and Plan: Cardiac arrest, secondary to unknown etiology. Possible aspiration pneumonia, NSTEMI, hypoxia, septic shock, infection -see code blue sheet for the details -patient currently intubated, vasopressors for blood pressure support have been weaned off -appreciate cardiology following the patient 02/29/2024 echocardiogram Summary 1. Technically difficult study with limited views. 2. Left ventricular chamber dimension is normal. 3. Left ventricular systolic function is mildly reduced, estimated at 45-50%. The apex appears to be hypokinetic. 4. There is mildly increased left ventricular wall thickness. 5. The left ventricular diastolic function is grade I diastolic dysfunction. 6. Right ventricular systolic function is normal. 7. Left atrial chamber dimension is moderately enlarged. 8. There is mild to moderate tricuspid valve regurgitation. 9. There is small anterior pericardial effusion. (3) Septic shock: Code(s): A41.9 - Sepsis, unspecified organism; R65.21 - Severe sepsis with septic shock Status: Acute Assessment and Plan: Patient in shock, likely related to the gangrene, aspiration pneumonia, status post cardiac arrest 02/28/2024: Blood cultures have been obtained and negative till now -lactic acid has normalized -patient has been adequately fluid-resuscitated, stress dose steroids and midodrine -blood pressure is now elevated (4) NSTEMI (non-ST elevated myocardial infarction): Code(s): I21.4 - Non-ST elevation (NSTEMI) myocardial infarction Status: Acute Assessment and Plan: Increasing troponins, -EKG showed sinus rhythm with T-wave changes in V1 to V5 -appreciate cardiology evaluation and recommendation -Continue aspirin and high-dose a statin -will hold Brilinta. Resumption per General surgery -continue beta-brayden, losartan -03/02 heparin infusion was discontinued after 48 hours for NSTEMI by cardiology (5) Gangrene of right foot: Code(s): I96 - Gangrene, not elsewhere classified Status: Acute Assessment and Plan: CTA showed peripheral arterial disease with total occlusion of the right anterior and posterior tibial arteries and right peroneal artery with distal reconstitution of peroneal artery. This extensive gangrene of the right foot with gas seen on CT of the foot. General surgery spoke to the patient in the ER on the day of admission on 02/27 patient at that time agreed for below-knee amputation. Plan was to do a below-knee amputation on 02/29/2024 but patient had a cardiac arrest that night secondary to sepsis. Surgery at that time was deferred. Patient now is intubated sedated and unable to sign his consent.. Patient has no family and for many years at the residential has had no visitor. He has 1 son which no one has been able to get hold off right several attempts. Considering patient has gangrene of the foot with no vascular supply leading to sepsis and if untreatable lead to his , Dr. Johns will proceed with amputation today. Mi and Dr. Johns has signed 2 physician consent considering patient's clearly expressed wishes prior to cardiac arrest at the time of admission, his current situation and inability to sign the consent form by himself at this time. 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 Postop management per General surgery -continue antibiotics for necrotizing gas gangrene. Patient on meropenem and vancomycin which was started on 02/28/2024 -complete 5 days of clindamycin (6) Osteomyelitis of toe of right foot: Code(s): M86.9 - Osteomyelitis, unspecified Status: Chronic Assessment and Plan: As above (7) Peripheral vascular disease: Code(s): I73.9 - Peripheral vascular disease, unspecified Status: Chronic Assessment and Plan: Patient has history of peripheral vascular disease, coronary artery disease -started on aspirin, patient will require Brilinta since he had a STEMI in 2020 but currently holding Brilinta due to surgery and bleeding (8) Type 2 diabetes mellitus: Qualifiers: 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 complication status: with other specified complication 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 Qualified Code(s): E11.69 - Type 2 diabetes mellitus with other specified complication; Z79.4 - 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 (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) use of insulin Code(s): E11.9 - Type 2 diabetes mellitus without complications Status: Acute Assessment and Plan: Currently on sliding scale insulin, Accu-Cheks Hemoglobin A1c this admission is 8.2 Continue Lantus (9) Chronic obstructive pulmonary disease: Code(s): J44.9 - Chronic obstructive pulmonary disease, unspecified Status: Acute Assessment and Plan: Continue DuoNebs -continue Symbicort (10) Electrolyte abnormality: Code(s): E87.8 - Other disorders of electrolyte and fluid balance, not elsewhere classified Status: Acute Assessment and Plan: Increase free water flush Plan DVT prophylaxis: Heparin subQ Stress ulcer prophylaxis: Protonix Nutrition: Tube feeds at goal and tolerating Code Status: Full code. Patient has no family available. There is some indication but no confirmation the patient has a son. No information available at the residential where he lived for 11 years. Care coordination is trying to locate patient's son but has not been able to find any information despite multiple times Critical Care Time Spent: 30 minutes Due to a high probability of clinically significant, life threatening deterioration, the patient required my highest level of preparedness to intervene emergently and I personally spent this critical care time directly and personally managing the patient. This critical care time included obtaining a history; examining the patient; pulse oximetry; ordering and review of studies; arranging urgent treatment with development of a management plan; evaluation of patient's response to treatment; frequent reassessment; and discussions with other providers. It was exclusive of separately billable procedures and treating other patients and teaching time. Please see Assessment and Plan section and the rest of the note for further information on patient assessment and treatment This dictation may have been done utilizing a voice recognition system. Attempts have been made to correct errors. However, there may be uncorrected grammatical, spelling, and recognitions errors present. Subjective Date/time seen: 03/08/24 Overnight events reviewed. Low-grade fever Continues to be on mechanical ventilation 8 of PEEP 30% FiO2 Off vasopressor Continues to be sedated with propofol and fentanyl Tolerating tube feeds. Blood pressure now elevated. Other Vitals acceptable Interval history: Reason for consult: Status post PEA arrest, right foot gangrene with cellulitis, shock 03/05 Right below-knee amputation with placement of posterior Ortho Glass splint, to unit PRBC transfused Review of Systems Review of Systems: ROS unobtainable: Yes unobtainable due to endotracheal tube, unobtainable due to medical condition and unobtainable due to mental status Exam Narrative: General: Patient intubated and sedated HEENT:, pupils are equal and reactive from a sclera is clear Neck:? supple Respiratory:? Coarse breath sounds bilaterally, decreased at bases, adequate air entry Cardiac:? S1-S2 normal, regular rate and rhythm Abdomen:? Soft, nontender, nondistended, hypoactive bowel sounds Extremities:? Right BKA stump under the dressing. Left dorsalis pedis is dopplerable Neuro:? Patient is intubated, sedated, PERRL on sternal rub patient tries to open his eyes but does not follow any commands Skin:? Patient has maceration of his perianal area, and states to pressure ulcer on his buttocks. Psych:? Unable to assess at this time Objective Data Vital Signs Vital Signs: Vital Signs - 24 hr 03/07/24 10:00 03/07/24 10:52 03/07/24 11:48 Temperature 37.4 C Pulse Rate 116 H 118 H 119 H Respiratory Rate 18 22 H Blood Pressure 156/70 H Pulse Oximetry 97 96 Oxygen Delivery Mechanical Ventilation Fraction of Inspired Oxygen 30 03/07/24 11:51 03/07/24 11:00 03/07/24 12:00 Temperature Pulse Rate 118 H 118 H 117 H Respiratory Rate 18 18 18 Blood Pressure Pulse Oximetry Oxygen Delivery Fraction of Inspired Oxygen 03/07/24 12:00 03/07/24 12:00 03/07/24 12:39 Temperature 37.6 C Pulse Rate 120 H 113 H 112 H Respiratory Rate 21 H 19 18 Blood Pressure 137/57 L Pulse Oximetry 96 Oxygen Delivery Fraction of Inspired Oxygen 03/07/24 13:18 03/07/24 13:21 03/07/24 13:34 Temperature Pulse Rate 94 95 96 Respiratory Rate 21 H 21 H Blood Pressure Pulse Oximetry 96 Oxygen Delivery Mechanical Ventilation Fraction of Inspired Oxygen 30 03/07/24 10:00 03/07/24 12:00 03/07/24 14:00 Temperature Pulse Rate 118 H 115 H 93 Respiratory Rate Blood Pressure Pulse Oximetry Oxygen Delivery Fraction of Inspired Oxygen 03/07/24 12:00 03/07/24 12:00 03/07/24 14:00 Temperature Pulse Rate 91 Respiratory Rate 20 Blood Pressure 101/40 L Pulse Oximetry 97 97 Oxygen Delivery Mechanical Ventilation Fraction of Inspired Oxygen 30 30 03/07/24 14:00 03/07/24 14:00 03/07/24 16:28 Temperature Pulse Rate 117 H 117 H 97 Respiratory Rate 21 H 21 H Blood Pressure Pulse Oximetry 100 Oxygen Delivery Mechanical Ventilation Fraction of Inspired Oxygen 30 03/07/24 16:00 03/07/24 16:00 03/07/24 16:00 Temperature 37.7 C H Pulse Rate 92 95 Respiratory Rate 17 16 Blood Pressure 100/44 L Pulse Oximetry 96 Oxygen Delivery Fraction of Inspired Oxygen 30 03/07/24 16:00 03/07/24 16:00 03/07/24 16:00 Temperature Pulse Rate 95 95 Respiratory Rate 16 Blood Pressure Pulse Oximetry 100 Oxygen Delivery Mechanical Ventilation Fraction of Inspired Oxygen 30 03/07/24 18:00 03/07/24 18:00 03/07/24 18:00 Temperature 37.7 C H Pulse Rate 96 94 95 Respiratory Rate 20 20 Blood Pressure 117/49 L Pulse Oximetry 97 Oxygen Delivery Fraction of Inspired Oxygen 03/07/24 18:00 03/07/24 19:08 03/07/24 19:08 Temperature Pulse Rate 95 98 98 Respiratory Rate 20 20 Blood Pressure Pulse Oximetry 97 Oxygen Delivery Mechanical Ventilation Fraction of Inspired Oxygen 30 03/07/24 20:14 03/07/24 20:39 03/07/24 20:00 Temperature 37.8 C H Pulse Rate 100 103 H 103 H Respiratory Rate 18 19 Blood Pressure 131/56 L Pulse Oximetry 98 Oxygen Delivery Fraction of Inspired Oxygen 03/07/24 20:00 03/07/24 20:00 03/07/24 20:00 Temperature Pulse Rate 103 H 102 H Respiratory Rate 19 Blood Pressure Pulse Oximetry Oxygen Delivery Fraction of Inspired Oxygen 30 03/07/24 20:00 03/07/24 22:00 03/07/24 22:00 Temperature 37.9 C H Pulse Rate 83 83 Respiratory Rate 20 Blood Pressure 116/49 L Pulse Oximetry 100 Oxygen Delivery Mechanical Ventilation Fraction of Inspired Oxygen 30 03/07/24 22:00 03/07/24 22:00 03/08/24 00:11 Temperature 37.9 C H Pulse Rate 83 83 92 Respiratory Rate 20 20 17 Blood Pressure 131/54 L Pulse Oximetry 100 Oxygen Delivery Fraction of Inspired Oxygen 03/07/24 22:55 03/08/24 00:00 03/08/24 00:00 Temperature Pulse Rate 91 94 Respiratory Rate Blood Pressure Pulse Oximetry 100 Oxygen Delivery Mechanical Ventilation Mechanical Ventilation Fraction of Inspired Oxygen 30 30 03/08/24 00:00 03/08/24 00:00 03/08/24 00:00 Temperature Pulse Rate 92 92 Respiratory Rate 17 17 Blood Pressure Pulse Oximetry Oxygen Delivery Fraction of Inspired Oxygen 30 03/08/24 02:17 03/08/24 02:17 03/08/24 02:24 Temperature 37.7 C H Pulse Rate 95 94 95 Respiratory Rate 20 17 Blood Pressure 155/67 H Pulse Oximetry 99 100 Oxygen Delivery Mechanical Ventilation Fraction of Inspired Oxygen 30 03/08/24 02:00 03/08/24 02:00 03/08/24 02:00 Temperature Pulse Rate 96 96 96 Respiratory Rate 19 19 Blood Pressure Pulse Oximetry Oxygen Delivery Fraction of Inspired Oxygen 03/08/24 03:28 03/08/24 03:28 03/08/24 04:00 Temperature 37.6 C H Pulse Rate 106 H 106 H 98 Respiratory Rate 24 H 24 H 10 L Blood Pressure 129/57 L Pulse Oximetry 95 Oxygen Delivery Fraction of Inspired Oxygen 03/08/24 04:32 03/08/24 04:33 03/08/24 04:00 Temperature 37.6 C Pulse Rate 110 H 110 H 100 Respiratory Rate 21 H 21 H 21 H Blood Pressure 171/75 H Pulse Oximetry 100 Oxygen Delivery Fraction of Inspired Oxygen 03/08/24 04:00 03/08/24 04:00 03/08/24 04:00 Temperature Pulse Rate 100 Respiratory Rate Blood Pressure Pulse Oximetry Oxygen Delivery Mechanical Ventilation Fraction of Inspired Oxygen 30 30 03/08/24 05:20 03/08/24 06:00 03/08/24 06:00 Temperature 37.5 C Pulse Rate 97 91 87 Respiratory Rate 20 18 Blood Pressure 135/57 L Pulse Oximetry 98 99 Oxygen Delivery Mechanical Ventilation Fraction of Inspired Oxygen 30 03/08/24 06:00 03/08/24 06:00 03/08/24 07:57 Temperature Pulse Rate 87 87 103 H Respiratory Rate 18 17 Blood Pressure Pulse Oximetry Oxygen Delivery Fraction of Inspired Oxygen 03/08/24 07:58 03/08/24 08:08 03/08/24 08:56 Temperature Pulse Rate 103 H 105 H 117 H Respiratory Rate 16 Blood Pressure Pulse Oximetry 100 Oxygen Delivery Mechanical Ventilation Fraction of Inspired Oxygen 30 Intake/Output Intake/Output: Intake & Output 03/05/24 03/06/24 03/07/24 03/08/24 23:59 23:59 23:59 23:59 Intake Total 2823.0 2379.6 2417.4 1342.8 Output Total 2950 4800 3450 1000 Balance -127.0 -2420.4 -1032.6 342.8 Meds/Results Medications: Active Medications Generic Name Dose Route Start Last Admin Trade Name Freq PRN Reason Stop Dose Admin Acetaminophen 500 mg 02/28/24 19:15 Acetaminophen 500 Mg Tablet PO Q6H PRN Pain Rated 1-3 Albuterol/Ipratropium 3 ml 02/29/24 02:00 03/08/24 07:51 Ipratropium 0.5 Mg/Albuterol Sulfate 2.5 Mg Ampul.Neb 3 Ml INHALATION 3 ml Q6HRT JASON Administration Alteplase, Recombinant 2 mg 03/06/24 09:45 03/06/24 13:10 Alteplase 2 Mg Vial (Cathflo) IV PUSH 2 mg ONCE PRN Administration Line Occlusion Aspirin 81 mg 03/01/24 08:00 03/08/24 08:56 Aspirin 81 Mg Chewable Tablet PO 81 mg DAILY@0800 JASON Administration Atorvastatin Calcium 80 mg 03/01/24 09:00 03/08/24 08:56 Atorvastatin 40 Mg Tablet PO 80 mg DAILY JASON Administration Dextrose 12.5 gm 02/28/24 19:23 Dextrose 50% 25 Gm/50 Ml Syringe IV PUSH PRN PRN Hypoglycemia Protocol Glucagon 1 mg 02/28/24 19:23 Glucagon For Inj 1 Mg Vial IM PRN PRN Hypoglycemia Protocol Glucose 15 gm 02/28/24 19:23 Glucose Oral Gel 15 Gm Of Glucse In 37.5 Gm Tube PO PRN PRN Hypoglycemia Protocol Heparin Sodium (Porcine) 5,000 units 03/03/24 14:00 03/08/24 05:18 Heparin Sodium 5,000 Units/Ml Vial SUB-Q 5,000 units Q8HR JASON Administration Hydralazine HCl 10 mg 03/03/24 15:19 Hydralazine Hcl 20 Mg/Ml Vial IV PUSH Q4HR PRN Hypertension Dextrose 1,000 mls @ 100 mls/hr 02/28/24 19:23 Dextrose 5% 1,000 Ml IVPB PRN PRN Hypoglycemia Protocol Fentanyl Citrate 2,500 mcg in 250 mls @ 5 mls/hr 02/28/24 21:20 03/08/24 06:00 Fentanyl 2,500 Mcg/Ns 250 Ml IV CONT 50 mcg/hr .Q50H JASON 5 mls/hr Titration Protocol 50 MCG/HR Meropenem 1 gm in 100 mls @ 200 mls/hr 02/28/24 22:00 03/08/24 05:45 IVPB Infused Q8H JASON Infusion Propofol 100 mls @ 8.577 mls/hr 03/07/24 11:40 03/08/24 06:48 Diprivan IV CONT Not Given .[id number] JASON Protocol 15 MCG/KG/MIN Vancomycin HCl 1,500 mg in 500 mls @ 250 mls/hr 03/07/24 22:00 03/08/24 00:17 Vancomycin 1,500 Mg/Ns 500 Ml IVPB Infused Q18H JASON Infusion Insulin Aspart 3 - 6 units 03/01/24 00:00 03/08/24 06:46 Insulin Aspart (*Bkc) 100 Units/Ml SUB-Q Not Given Q6H JASON Protocol Insulin Glargine 40 units 03/05/24 09:00 03/08/24 09:03 Insulin Glargine (*Bkc) 100 Units/Ml SUB-Q 40 units DAILY JASON Administration Losartan Potassium 25 mg 03/07/24 09:00 03/08/24 08:56 Losartan Potassium 25 Mg Tablet PO 25 mg DAILY JASON Administration Metoclopramide HCl 10 mg 10/22/24 08:00 03/08/24 05:18 Metoclopramide Hcl 10 Mg/10 Ml Soln Udc FEED TUBE 10 mg Q6HR JASON Administration Metoprolol Tartrate 25 mg 03/06/24 21:00 03/08/24 08:56 Metoprolol Tartrate 25 Mg Tablet FEED TUBE 25 mg Q12HR JASON Administration Multi-Ingred Cream/Lotion/Oil/Oint 1 applic 03/07/24 21:00 03/08/24 08:57 Mineral Oil/White Petrolatum Ointment EACH EYE 1 applic Q12HR JASON Administration Pantoprazole Sodium 40 mg 03/02/24 09:00 03/08/24 08:56 Pantoprazole Sodium Iv 40 Mg Vial IV PUSH 40 mg Q12HR JASON Administration Sodium Chloride 10 ml 02/29/24 06:00 03/08/24 05:18 Central Line Flush IV PUSH 10 ml Q8HR JASON Administration Sodium Chloride 20 ml 02/28/24 23:37 Central Line Flush IV PUSH PRN PRN after blood draws Radiology Results: ITS Impressions Lower Extremity CTA 02/28/24 14:54 IMPRESSION: 1. 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 2. Moderate stenosis of right popliteal artery. 3. Osteomyelitis involving first proximal and distal phalanges and head of first metatarsal. Head CT 02/29/24 05:55 Impression: No intracranial hemorrhage, mass, or acute infarct. Stable chronic encephalomalacia in the high left parietal lobe. Atrophy and chronic white matter changes, as above. Chest/Abdomen/Pelvis CTA 02/29/24 06:02 Impression: Extensive right upper lobe consolidation and more mild right middle lobe consolidation, consistent with pneumonia. Consider aspiration pneumonia. Moderate to large right pleural effusion with complete atelectasis of the right lower lobe. Moderate left pleural effusion with minimal left basilar atelectasis. Small pericardial effusion. No definite acute abnormality in the abdomen or pelvis. Chronic compression fractures, as above. Renal Ultrasound 03/03/24 15:45 IMPRESSION: 1. Normal kidneys without hydronephrosis. 2. Small amount of ascites in the abdomen and pelvis. Thoracentesis Ultrasound 03/07/24 16:03 IMPRESSION: 1. Successful ultrasound-guided thoracentesis yielding 1000 mL of thin yellow fluid, performed at the bedside in ICU. Chest X-Ray 03/08/24 06:14 IMPRESSION: 1. Stable airspace opacities in right lung and left lower lung zone, consistent with pneumonia. 2. Stable small pleural effusions. Labs Labs: Laboratory Results - last 24 hr 03/07/24 03/07/24 03/07/24 06:12 11:28 12:35 WBC RBC Hgb Hct MCV MCH MCHC RDW Plt Count MPV PT 18.1 H INR 1.4 APTT 48.3 H Puncture Site ABG pH ABG pCO2 ABG pO2 ABG PO2/FiO2 Ratio ABG HCO3 ABG O2 Saturation ABG O2 Content ABG Base Excess A-a Gradient Oxyhemoglobin Carboxyhemoglobin Methemoglobin Reduced Hemoglobin Total Hemoglobin O2 Delivery Device O2 Liters/Min Minute Volume Vent Rate Vent Mode FiO2 Tidal Volume PEEP Peak Inspir Pressure Pressure Support Sodium Potassium Chloride Carbon Dioxide Anion Gap BUN Creatinine Estim Creat Clear Calc Estimated GFR Glucose POC Capillary Glucose 184 H Calcium Magnesium Total Bilirubin AST ALT Alkaline Phosphatase Total Protein Albumin Triglycerides 76 Vancomycin Trough 03/07/24 03/07/24 03/08/24 17:40 21:20 00:01 WBC RBC Hgb Hct MCV MCH MCHC RDW Plt Count MPV PT INR APTT Puncture Site ABG pH ABG pCO2 ABG pO2 ABG PO2/FiO2 Ratio ABG HCO3 ABG O2 Saturation ABG O2 Content ABG Base Excess A-a Gradient Oxyhemoglobin Carboxyhemoglobin Methemoglobin Reduced Hemoglobin Total Hemoglobin O2 Delivery Device O2 Liters/Min Minute Volume Vent Rate Vent Mode FiO2 Tidal Volume PEEP Peak Inspir Pressure Pressure Support Sodium Potassium Chloride Carbon Dioxide Anion Gap BUN Creatinine Estim Creat Clear Calc Estimated GFR Glucose POC Capillary Glucose 226 H 215 H Calcium Magnesium Total Bilirubin AST ALT Alkaline Phosphatase Total Protein Albumin Triglycerides Vancomycin Trough 12.4 03/08/24 03/08/24 03/08/24 04:45 05:39 06:45 WBC 18.7 H RBC 2.99 L Hgb 8.3 L Hct 27.4 L MCV 91.6 MCH 27.8 MCHC 30.3 L RDW 16.6 H Plt Count 251 MPV 9.9 PT INR APTT Puncture Site Artline ABG pH 7.484 H ABG pCO2 44.9 ABG pO2 125.1 H ABG PO2/FiO2 Ratio 4.17 ABG HCO3 33.0 H ABG O2 Saturation 98.7 ABG O2 Content 20.1 ABG Base Excess 8.4 A-a Gradient 36.0 Oxyhemoglobin 97.3 Carboxyhemoglobin 1.3 Methemoglobin 0.3 Reduced Hemoglobin 1.1 Total Hemoglobin 14.6 O2 Delivery Device Ventilator O2 Liters/Min Not Reportable Minute Volume Not Reportable Vent Rate 16 Vent Mode Cmv FiO2 30 Tidal Volume 380 PEEP 8 Peak Inspir Pressure Not Reportable Pressure Support Not Reportable Sodium 150 H Potassium 3.9 Chloride 112 H Carbon Dioxide 34 H Anion Gap 4 BUN 40 H Creatinine 0.60 L Estim Creat Clear Calc 118 Estimated GFR > 60 Glucose 202 H POC Capillary Glucose 198 H Calcium 8.1 L Magnesium 2.4 H Total Bilirubin 0.3 AST 41 ALT 34 Alkaline Phosphatase 80 Total Protein 6.0 L Albumin 2.5 L Triglycerides Vancomycin Trough Quality VTE Prophylaxis VTE prophylaxis: pharmacologic ordered
[2024-03-08] MEDS: LOSARTAN POTASSIUM 50 MG TABLET FEED TUBE (10:36)
[2024-03-08] MEDS: METOPROLOL TARTRATE 50 MG TAB FEED TUBE ×2 (10:36→20:40)
[2024-03-08] MEDS: LABETALOL HCL INJ 100 MG/20 ML VIAL 20 MG IV PUSH ×2 (11:39→16:48)
[2024-03-08 12:11] LABS: Glucose Point of Care 220 mg/dl (65-105)
--- NOTE | 2024-03-08 12:36 | P.PNIM_ITS ---
Progress Note: A&P Assessment and Plan (1) Acute respiratory failure with hypoxia: Code(s): J96.01 - Acute respiratory failure with hypoxia Status: Acute Assessment and Plan: Acute respiratory failure likely related to cardiac arrest, aspiration pneumonia, NSTEMI, hypoxia, septic shock Worsening likely secondary to ARDS versus pulmonary edema Chest CTA 02/28: Extensive right upper lobe consolidation and more mild right middle lobe consolidation, consistent with pneumonia. Consider aspiration pneumonia. Moderate to large right pleural effusion with complete atelectasis of the right lower lobe. Moderate left pleural effusion with minimal left basilar atelectasis. Small pericardial effusion. No definite acute abnormality in the abdomen or pelvis. Chronic compression fractures, as above -currently CMV mode of ventilation, peep of 8, 30 % FiO2. Tidal volume 380 - CXR reviewed with diffuse infiltrates and effusions -continue bronchodilators -on propofol and Versed infusion for sedation. Sedation holiday 03/08 -off Nimbex for neuromuscular brayden -03/07 right thoracentesis with 1 L fluid removed -03/08 left thoracentesis (2) Cardiac arrest with pulseless electrical activity: Code(s): I46.9 - Cardiac arrest, cause unspecified Status: Acute Assessment and Plan: Cardiac arrest, secondary to unknown etiology. Possible aspiration pneumonia, NSTEMI, hypoxia, septic shock, infection -see code blue sheet for the details -patient currently intubated, vasopressors for blood pressure support have been weaned off -appreciate cardiology following the patient 02/29/2024 echocardiogram Summary 1. Technically difficult study with limited views. 2. Left ventricular chamber dimension is normal. 3. Left ventricular systolic function is mildly reduced, estimated at 45-50%. The apex appears to be hypokinetic. 4. There is mildly increased left ventricular wall thickness. 5. The left ventricular diastolic function is grade I diastolic dysfunction. 6. Right ventricular systolic function is normal. 7. Left atrial chamber dimension is moderately enlarged. 8. There is mild to moderate tricuspid valve regurgitation. 9. There is small anterior pericardial effusion. (3) Septic shock: Code(s): A41.9 - Sepsis, unspecified organism; R65.21 - Severe sepsis with septic shock Status: Acute Assessment and Plan: Patient in shock, likely related to the gangrene, aspiration pneumonia, status post cardiac arrest 02/28/2024: Blood cultures have been obtained and negative till now -lactic acid has normalized -patient has been adequately fluid-resuscitated, stress dose steroids and midodrine -blood pressure now labile (4) NSTEMI (non-ST elevated myocardial infarction): Code(s): I21.4 - Non-ST elevation (NSTEMI) myocardial infarction Status: Acute Assessment and Plan: 02/18 Increasing troponins, -EKG showed sinus rhythm with T-wave changes in V1 to V5 -appreciate cardiology evaluation and recommendation -Continue aspirin and high-dose a statin -will hold Brilinta. Resumption per General surgery -continue beta-brayden, losartan -03/02 heparin infusion was discontinued after 48 hours for NSTEMI by cardiology (5) Gangrene of right foot: Code(s): I96 - Gangrene, not elsewhere classified Status: Acute Assessment and Plan: CTA showed peripheral arterial disease with total occlusion of the right anterior and posterior tibial arteries and right peroneal artery with distal reconstitution of peroneal artery. This extensive gangrene of the right foot with gas seen on CT of the foot. General surgery spoke to the patient in the ER on the day of admission on 02/27 patient at that time agreed for below-knee amputation. Plan was to do a below- knee amputation on 02/29/2024 but patient had a cardiac arrest that night s econdary to sepsis. Surgery at that time was deferred. Patient now is intubated sedated and unable to sign his consent.. Patient has no family and for many years at the alf has had no visitor. He has 1 son which no one has been able to get hold off right several attempts. Considering patient has gangrene of the foot with no vascular supply leading to sepsis and if untreatable lead to his , Dr. Johns will proceed with amputation today. Ar and Dr. Johns has signed 2 physician consent considering patient's clearly expressed wishes prior to cardiac arrest at the time of admission, his current situation and inability to sign the consent form by himself at this time. 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 Postop management per General surgery -continue antibiotics for necrotizing gas gangrene. Patient was on meropenem and vancomycin which was started on 02/28/2024 -complete 5 days of clindamycin - 03/08 on Vancomycin (6) Osteomyelitis of toe of right foot: Code(s): M86.9 - Osteomyelitis, unspecified Status: Chronic Assessment and Plan: As above (7) Peripheral vascular disease: Code(s): I73.9 - Peripheral vascular disease, unspecified Status: Chronic Assessment and Plan: Patient has history of peripheral vascular disease, coronary artery disease -started on aspirin, patient will require Brilinta since he had a STEMI in 2020 but currently holding Brilinta due to surgery and bleeding (8) Type 2 diabetes mellitus: Qualifiers: 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 complication status: with other specified complication 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 detention insulin use: with detention use Qualified Code(s): E11.69 - Type 2 diabetes mellitus with other specified complication; 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 Code(s): E11.9 - Type 2 diabetes mellitus without complications Status: Acute Assessment and Plan: Currently on sliding scale insulin, Accu-Cheks Hemoglobin A1c this admission is 8.2 Continue Lantus (9) Chronic obstructive pulmonary disease: Code(s): J44.9 - Chronic obstructive pulmonary disease, unspecified Status: Acute Assessment and Plan: Continue DuoNebs -continue Symbicort (10) Electrolyte abnormality: Code(s): E87.8 - Other disorders of electrolyte and fluid balance, not elsewhere classified Status: Acute Assessment and Plan: Increase free water flush Subjective Date/time seen: 03/08/24 12:36 Interval history: Remains ventilated. Off sedation since this morning. Review of Systems Review of Systems: ROS unobtainable: Yes unobtainable due to medical condition Exam Narrative: Sclera nonicteric. Pupils equal round reactive. Oral mucosa intact as visua lized. ET tube in place. Neck without JVD. Chest coarse breath sounds. Heart regular rate and mildly tachycardic without audible murmurs. Extremities without pitting edema. One to 2+ nonpitting edema. Abdomen bowel sounds hypoactive soft no palpable mass and no obvious tenderness. Musculoskeletal right BKA with dressing in place. Otherwise no gross deformities visualized. Neurologic cranial nerves symmetric to inspection. Babinski without response. Psychiatric opened eyes to voice but did not follow commands. Objective Data Vital Signs Vital Signs: Vital Signs - 24 hr 03/07/24 12:39 03/07/24 13:18 03/07/24 13:21 Temperature Pulse Rate 112 H 94 95 Respiratory Rate 18 21 H Blood Pressure Pulse Oximetry 96 Oxygen Delivery Mechanical Ventilation Fraction of Inspired Oxygen 30 03/07/24 13:34 03/07/24 14:00 03/07/24 14:00 Temperature Pulse Rate 96 93 91 Respiratory Rate 21 H 20 Blood Pressure 101/40 L Pulse Oximetry 97 Oxygen Delivery Fraction of Inspired Oxygen 03/07/24 14:00 03/07/24 14:00 03/07/24 16:28 Temperature Pulse Rate 117 H 117 H 97 Respiratory Rate 21 H 21 H Blood Pressure Pulse Oximetry 100 Oxygen Delivery Mechanical Ventilation Fraction of Inspired Oxygen 30 03/07/24 16:00 03/07/24 16:00 03/07/24 16:00 Temperature 100 F H Pulse Rate 92 95 Respiratory Rate 17 16 Blood Pressure 100/44 L Pulse Oximetry 96 Oxygen Delivery Fraction of Inspired Oxygen 30 03/07/24 16:00 03/07/24 16:00 03/07/24 16:00 Temperature Pulse Rate 95 95 Respiratory Rate 16 Blood Pressure Pulse Oximetry 100 Oxygen Delivery Mechanical Ventilation Fraction of Inspired Oxygen 30 03/07/24 18:00 03/07/24 18:00 03/07/24 18:00 Temperature 99.8 F H Pulse Rate 96 94 95 Respiratory Rate 20 20 Blood Pressure 117/49 L Pulse Oximetry 97 Oxygen Delivery Fraction of Inspired Oxygen 03/07/24 18:00 03/07/24 19:08 03/07/24 19:08 Temperature Pulse Rate 95 98 98 Respiratory Rate 20 20 Blood Pressure Pulse Oximetry 97 Oxygen Delivery Mechanical Ventilation Fraction of Inspired Oxygen 30 03/07/24 20:14 03/07/24 20:39 03/07/24 20:00 Temperature 100.0 F H Pulse Rate 100 103 H 103 H Respiratory Rate 18 19 Blood Pressure 131/56 L Pulse Oximetry 98 Oxygen Delivery Fraction of Inspired Oxygen 03/07/24 20:00 03/07/24 20:00 03/07/24 20:00 Temperature Pulse Rate 103 H 102 H Respiratory Rate 19 Blood Pressure Pulse Oximetry Oxygen Delivery Fraction of Inspired Oxygen 30 03/07/24 20:00 03/07/24 22:00 03/07/24 22:00 Temperature 100.3 F H Pulse Rate 83 83 Respiratory Rate 20 Blood Pressure 116/49 L Pulse Oximetry 100 Oxygen Delivery Mechanical Ventilation Fraction of Inspired Oxygen 30 03/07/24 22:00 03/07/24 22:00 03/08/24 00:11 Temperature 100.2 F H Pulse Rate 83 83 92 Respiratory Rate 20 20 17 Blood Pressure 131/54 L Pulse Oximetry 100 Oxygen Delivery Fraction of Inspired Oxygen 03/07/24 22:55 03/08/24 00:00 03/08/24 00:00 Temperature Pulse Rate 91 94 Respiratory Rate Blood Pressure Pulse Oximetry 100 Oxygen Delivery Mechanical Ventilation Mechanical Ventilation Fraction of Inspired Oxygen 30 30 03/08/24 00:00 03/08/24 00:00 03/08/24 00:00 Temperature Pulse Rate 92 92 Respiratory Rate 17 17 Blood Pressure Pulse Oximetry Oxygen Delivery Fraction of Inspired Oxygen 30 03/08/24 02:17 03/08/24 02:17 03/08/24 02:24 Temperature 100 F H Pulse Rate 95 94 95 Respiratory Rate 20 17 Blood Pressure 155/67 H Pulse Oximetry 99 100 Oxygen Delivery Mechanical Ventilation Fraction of Inspired Oxygen 30 03/08/24 02:00 03/08/24 02:00 03/08/24 02:00 Temperature Pulse Rate 96 96 96 Respiratory Rate 19 19 Blood Pressure Pulse Oximetry Oxygen Delivery Fraction of Inspired Oxygen 03/08/24 03:28 03/08/24 03:28 03/08/24 04:00 Temperature 99.7 F H Pulse Rate 106 H 106 H 98 Respiratory Rate 24 H 24 H 10 L Blood Pressure 129/57 L Pulse Oximetry 95 Oxygen Delivery Fraction of Inspired Oxygen 03/08/24 04:32 03/08/24 04:33 03/08/24 04:00 Temperature 99.6 F Pulse Rate 110 H 110 H 100 Respiratory Rate 21 H 21 H 21 H Blood Pressure 171/75 H Pulse Oximetry 100 Oxygen Delivery Fraction of Inspired Oxygen 03/08/24 04:00 03/08/24 04:00 03/08/24 04:00 Temperature Pulse Rate 100 Respiratory Rate Blood Pressure Pulse Oximetry Oxygen Delivery Mechanical Ventilation Fraction of Inspired Oxygen 30 30 03/08/24 05:20 03/08/24 06:00 03/08/24 06:00 Temperature 99.5 F Pulse Rate 97 91 87 Respiratory Rate 20 18 Blood Pressure 135/57 L Pulse Oximetry 98 99 Oxygen Delivery Mechanical Ventilation Fraction of Inspired Oxygen 30 03/08/24 06:00 03/08/24 06:00 03/08/24 07:57 Temperature Pulse Rate 87 87 103 H Respiratory Rate 18 17 Blood Pressure Pulse Oximetry Oxygen Delivery Fraction of Inspired Oxygen 03/08/24 07:58 03/08/24 08:08 03/08/24 08:56 Temperature Pulse Rate 103 H 105 H 117 H Respiratory Rate 16 Blood Pressure Pulse Oximetry 100 Oxygen Delivery Mechanical Ventilation Fraction of Inspired Oxygen 30 03/08/24 07:00 03/08/24 08:20 03/08/24 07:00 Temperature Pulse Rate 99 110 H 99 Respiratory Rate 19 17 19 Blood Pressure Pulse Oximetry Oxygen Delivery Fraction of Inspired Oxygen 03/08/24 08:20 03/08/24 09:00 03/08/24 09:20 Temperature Pulse Rate 110 H 119 H 99 Respiratory Rate 17 21 H 21 H Blood Pressure Pulse Oximetry Oxygen Delivery Fraction of Inspired Oxygen 03/08/24 08:00 03/08/24 08:00 03/08/24 08:00 Temperature 99.3 F Pulse Rate 108 H Respiratory Rate 18 Blood Pressure 151/66 H Pulse Oximetry 100 100 Oxygen Delivery Mechanical Ventilation Fraction of Inspired Oxygen 30 30 03/08/24 10:00 03/08/24 10:00 03/08/24 10:00 Temperature 99.7 F H Pulse Rate 101 H 104 H 102 H Respiratory Rate 18 17 17 Blood Pressure 162/67 H Pulse Oximetry 96 Oxygen Delivery Fraction of Inspired Oxygen 03/08/24 08:00 03/08/24 10:36 03/08/24 11:11 Temperature Pulse Rate 97 103 H 102 H Respiratory Rate Blood Pressure Pulse Oximetry 97 Oxygen Delivery Mechanical Ventilation Fraction of Inspired Oxygen 30 03/08/24 10:00 03/08/24 12:00 03/08/24 12:00 Temperature Pulse Rate 105 H 86 88 Respiratory Rate 16 16 Blood Pressure Pulse Oximetry Oxygen Delivery Fraction of Inspired Oxygen 03/08/24 12:00 03/08/24 12:00 03/08/24 11:39 Temperature 100.3 F H Pulse Rate 89 102 H Respiratory Rate 16 Blood Pressure 130/52 L Pulse Oximetry 97 97 Oxygen Delivery Mechanical Ventilation Fraction of Inspired Oxygen 30 03/08/24 11:41 Temperature Pulse Rate 101 H Respiratory Rate Blood Pressure 185/81 H Pulse Oximetry Oxygen Delivery Fraction of Inspired Oxygen Intake/Output Intake/Output: Intake & Output 03/05/24 03/06/24 03/07/24 03/08/24 23:59 23:59 23:59 23:59 Intake Total 2823.0 2379.6 2417.4 1379.3 Output Total 2950 4800 3450 1550 Balance -127.0 -2420.4 -1032.6 -170.7 Meds/Results Medications: Active Medications Generic Name Dose Route Start Last Admin Trade Name Freq PRN Reason Stop Dose Admin Acetaminophen 500 mg 03/08/24 10:18 Acetaminophen 500 Mg Tablet FEED TUBE Q6H PRN Pain Rated 1-3 Albuterol/Ipratropium 3 ml 02/29/24 02:00 03/08/24 07:51 Ipratropium 0.5 Mg/Albuterol Sulfate 2.5 Mg Ampul.Neb 3 Ml INHALATION 3 ml Q6HRT JASON Administration Alteplase, Recombinant 2 mg 03/06/24 09:45 03/06/24 13:10 Alteplase 2 Mg Vial (Cathflo) IV PUSH 2 mg ONCE PRN Administration Line Occlusion Aspirin 81 mg 03/09/24 08:00 Aspirin 81 Mg Chewable Tablet FEED TUBE DAILY@0800 [facility] Atorvastatin Calcium 80 mg 03/09/24 09:00 Atorvastatin 40 Mg Tablet FEED TUBE DAILY JASON Dextrose 12.5 gm 02/28/24 19:23 Dextrose 50% 25 Gm/50 Ml Syringe IV PUSH PRN PRN Hypoglycemia Protocol Glucagon 1 mg 02/28/24 19:23 Glucagon For Inj 1 Mg Vial IM PRN PRN Hypoglycemia Protocol Glucose 15 gm 03/08/24 10:19 Glucose Oral Gel 15 Gm Of Glucse In 37.5 Gm Tube FEED TUBE PRN PRN Hypoglycemia Protocol Heparin Sodium (Porcine) 5,000 units 03/03/24 14:00 03/08/24 05:18 Heparin Sodium 5,000 Units/Ml Vial SUB-Q 5,000 units Q8HR JASON Administration Hydralazine HCl 20 mg 03/08/24 10:06 Hydralazine Hcl 20 Mg/Ml Vial IV PUSH Q4HR PRN Hypertension Dextrose 1,000 mls @ 100 mls/hr 02/28/24 19:23 Dextrose 5% 1,000 Ml IVPB PRN PRN Hypoglycemia Protocol Fentanyl Citrate 2,500 mcg in 250 mls @ 0 mls/hr 02/28/24 21:20 03/08/24 12:00 Fentanyl 2,500 Mcg/Ns 250 Ml IV CONT 0 mcg/hr .Q0M JASON 0 mls/hr Titration Protocol Meropenem 1 gm in 100 mls @ 200 mls/hr 02/28/24 22:00 03/08/24 05:45 IVPB Infused Q8H JASON Infusion Propofol 100 mls @ 0 mls/hr 03/07/24 11:40 03/08/24 12:00 Diprivan IV CONT 0 mcg/kg/min .Q0M JASON 0 mls/hr Titration Protocol Vancomycin HCl 1,500 mg in 500 mls @ 250 mls/hr 03/07/24 22:00 03/08/24 00:17 Vancomycin 1,500 Mg/Ns 500 Ml IVPB Infused Q18H JASON Infusion Insulin Aspart 3 - 6 units 03/01/24 00:00 03/08/24 12:06 Insulin Aspart (*Bkc) 100 Units/Ml SUB-Q 3 units Q6H JASON Administration Protocol Insulin Glargine 40 units 03/05/24 09:00 03/08/24 09:03 Insulin Glargine (*Bkc) 100 Units/Ml SUB-Q 40 units DAILY JASON Administration Labetalol HCl 20 mg 03/08/24 10:06 03/08/24 11:39 Labetalol Hcl Inj 100 Mg/20 Ml Vial IV PUSH 20 mg Q4H PRN Administration SBP > 160 and HR> 60 -1st choice Losartan Potassium 50 mg 03/08/24 10:15 03/08/24 10:36 Losartan Potassium 50 Mg Tablet FEED TUBE 50 mg DAILY JASON Administration Metoclopramide HCl 10 mg 03/04/24 08:00 03/08/24 11:39 Metoclopramide Hcl 10 Mg/10 Ml Soln Udc FEED TUBE 10 mg Q6HR JASON Administration Metoprolol Tartrate 50 mg 03/08/24 10:15 03/08/24 10:36 Metoprolol Tartrate 50 Mg Tab FEED TUBE 50 mg Q12HR JASON Administration Multi-Ingred Cream/Lotion/Oil/Oint 1 applic 03/07/24 21:00 03/08/24 08:57 Mineral Oil/White Petrolatum Ointment EACH EYE 1 applic Q12HR JASON Administration Pantoprazole Sodium 40 mg 03/02/24 09:00 03/08/24 08:56 Pantoprazole Sodium Iv 40 Mg Vial IV PUSH 40 mg Q12HR JASON Administration Sodium Chloride 10 ml 02/29/24 06:00 03/08/24 05:18 Central Line Flush IV PUSH 10 ml Q8HR JASON Administration Sodium Chloride 20 ml 02/28/24 23:37 Central Line Flush IV PUSH PRN PRN after blood draws Radiology Results: ITS Impressions Lower Extremity CTA 02/28/24 14:54 IMPRESSION: 1. 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 2. Moderate stenosis of right popliteal artery. 3. Osteomyelitis involving first proximal and distal phalanges and head of first metatarsal. Head CT 02/29/24 05:55 Impression: No intracranial hemorrhage, mass, or acute infarct. Stable chronic encephalomalacia in the high left parietal lobe. Atrophy and chronic white matter changes, as above. Chest/Abdomen/Pelvis CTA 02/29/24 06:02 Impression: Extensive right upper lobe consolidation and more mild right middle lobe consolidation, consistent with pneumonia. Consider aspiration pneumonia. Moderate to large right pleural effusion with complete atelectasis of the right lower lobe. Moderate left pleural effusion with minimal left basilar atelectasis. Small pericardial effusion. No definite acute abnormality in the abdomen or pelvis. Chronic compression fractures, as above. Renal Ultrasound 03/03/24 15:45 IMPRESSION: 1. Normal kidneys without hydronephrosis. 2. Small amount of ascites in the abdomen and pelvis. Thoracentesis Ultrasound 03/08/24 09:35 IMPRESSION: 1. Successful ultrasound-guided thoracentesis yielding 550 mL of clear, yellow fluid. Chest X-Ray 03/08/24 10:08 IMPRESSION: 1. Stable bilateral lung disease, right worse than left, consistent with pneumonia. Labs Labs: Laboratory Results - last 24 hr 03/07/24 03/07/24 03/07/24 12:35 17:40 21:20 WBC RBC Hgb Hct MCV MCH MCHC RDW Plt Count MPV Puncture Site ABG pH ABG pCO2 ABG pO2 ABG PO2/FiO2 Ratio ABG HCO3 ABG O2 Saturation ABG O2 Content ABG Base Excess A-a Gradient Oxyhemoglobin Carboxyhemoglobin Methemoglobin Reduced Hemoglobin Total Hemoglobin O2 Delivery Device O2 Liters/Min Minute Volume Vent Rate Vent Mode FiO2 Tidal Volume PEEP Peak Inspir Pressure Pressure Support Sodium Potassium Chloride Carbon Dioxide Anion Gap BUN Creatinine Estim Creat Clear Calc Estimated GFR Glucose POC Capillary Glucose 184 H 226 H Calcium Magnesium Total Bilirubin AST ALT Alkaline Phosphatase Total Protein Albumin Vancomycin Trough 12.4 03/08/24 03/08/2403/08/24 00:01 04:45 05:39 WBC 18.7 H RBC 2.99 L Hgb 8.3 L Hct 27.4 L MCV 91.6 MCH 27.8 MCHC 30.3 L RDW 16.6 H Plt Count 251 MPV 9.9 Puncture Site Artline ABG pH 7.484 H ABG pCO2 44.9 ABG pO2 125.1 H ABG PO2/FiO2 Ratio 4.17 ABG HCO3 33.0 H ABG O2 Saturation 98.7 ABG O2 Content 20.1 ABG Base Excess 8.4 A-a Gradient 36.0 Oxyhemoglobin 97.3 Carboxyhemoglobin 1.3 Methemoglobin 0.3 Reduced Hemoglobin 1.1 Total Hemoglobin 14.6 O2 Delivery Device Ventilator O2 Liters/Min Not Reportable Minute Volume Not Reportable Vent Rate 16 Vent Mode Cmv FiO2 30 Tidal Volume 380 PEEP 8 Peak Inspir Pressure Not Reportable Pressure Support Not Reportable Sodium 150 H Potassium 3.9 Chloride 112 H Carbon Dioxide 34 H Anion Gap 4 BUN 40 H Creatinine 0.60 L Estim Creat Clear Calc 118 Estimated GFR > 60 Glucose 202 H POC Capillary Glucose 215 H Calcium 8.1 L Magnesium 2.4 H Total Bilirubin 0.3 AST 41 ALT 34 Alkaline Phosphatase 80 Total Protein 6.0 L Albumin 2.5 L Vancomycin Trough 03/08/24 03/08/24 06:45 12:05 WBC RBC Hgb Hct MCV MCH MCHC RDW Plt Count MPV Puncture Site ABG pH ABG pCO2 ABG pO2 ABG PO2/FiO2 Ratio ABG HCO3 ABG O2 Saturation ABG O2 Content ABG Base Excess A-a Gradient Oxyhemoglobin Carboxyhemoglobin Methemoglobin Reduced Hemoglobin Total Hemoglobin O2 Delivery Device O2 Liters/Min Minute Volume Vent Rate Vent Mode FiO2 Tidal Volume PEEP Peak Inspir Pressure Pressure Support Sodium Potassium Chloride Carbon Dioxide Anion Gap BUN Creatinine Estim Creat Clear Calc Estimated GFR Glucose POC Capillary Glucose 198 H 220 H Calcium Magnesium Total Bilirubin AST ALT Alkaline Phosphatase Total Protein Albumin Vancomycin Trough
[2024-03-08] MEDS: ACETAMINOPHEN 500 MG TABLET FEED TUBE ×2 (14:27→22:57)
[2024-03-08] MEDS: VANCOMYCIN 1,500 MG/NS 500 ML 1,500 MG/500 ML BAG 250 MG IVPB (16:47)
[2024-03-08 18:55] LABS: Glucose Point of Care 226 mg/dl (65-105)
[2024-03-09] VITALS (50 sets, daily range): BP systolic 111–157; BP diastolic 44–65; PULSE 80–106; RESP 11–22; TEMP 37.4–38.2; O2SAT 95–100
[2024-03-09 00:08] LABS: Glucose Point of Care 238 mg/dl (65-105)
[2024-03-09] MEDS: INSULIN ASPART (*BKC) 100 UNITS/ML SUB-Q ×2 (00:08→05:29)
[2024-03-09] MEDS: METOCLOPRAMIDE HCL 10 MG/10 ML SOLN UDC FEED TUBE ×4 (00:09→18:08)
[2024-03-09] MEDS: IPRATROPIUM 0.5 MG/ALBUTEROL SULFATE 2.5 MG AMPUL.NEB 3 ML INHALATION ×4 (01:22→20:38)
[2024-03-09 04:38] LABS: Hematocrit 26.3 % (42.0-52.0); Mean Corpuscular HGB Conc 30.4 g/dl (32-36); Mean Corpuscular Hemoglobin 27.8 pg (26-34); Mean Corpuscular Volume 91.3 fl (80-100); Mean Platelet Volume 9.9 fl (7.4-10.4); Platelet Count Result 222 k/mm3 (150-375); Red Blood Count 2.88 M/mm3 (4.6-6.20); Red Cell Distribution Width 16.8 % (11.5-14.5); White Blood Count 11.6 K/mm3 (4.5-10.0)
[2024-03-09 04:51] LABS: Alanine Aminotransferase 37 U/L (6-50); Albumin Level 2.4 g/dL (3.5-5.1); Alkaline Phosphatase 85 U/L (38-126); Anion Gap 4 mmol/L (4-12); Aspartate Amino Transferase 43 U/L (17-59); Bilirubin,Total 0.3 mg/dL (0.2-1.3); Blood Urea Nitrogen 40 mg/dL (9-20); Carbon Dioxide 33 mmol/L (22-30); Chloride 113 mmol/L (98-107); Estimated CRCL calculation 103 ml/min; Estimated Glomerular Filt Rate > 60; Glucose 234 mg/dL (65-110); Magnesium 2.5 mg/dL (1.6-2.3); Sodium 150 mmol/L (137-145)
[2024-03-09 05:00] LABS: Alveolar/Arterial O2 Gradient 61.4 mmHg; Base Excess ABG 4.1 mEq/l (+/-2.0); Carboxyhemoglobin 0.9 % THb (0-2.0); Fractional Inspired Oxygen 30 %; HCO3 ABG 27.9 mEq/l (22.0-26.0); Methemoglobin ABG 0.3 %THb (0-1.5); Oxygen Content ABG 14.6 %vol (16.0-22.0); Oxygen Saturation ABG 98.2 % (95.0-100.0); Oxyhemoglobin 97.1 % THb (90.0-100.0); PCO2 ABG 38.7 mmHg (35.0-45.0); PO2 FiO2 Ratio Arterial Blood 3.57 %; Reduced Hemoglobin 1.7 %THb (0-5.0); Total Hemoglobin 10.6 g/dL (12.0-18.0); pH ABG 7.475 (7.350-7.450)
[2024-03-09 05:01] LABS: Device VENTILATOR; Site Drawn ARTLINE
[2024-03-09 05:02] LABS: Arterial Blood Gas PEEP 8 cmH2O; Arterial Blood Gas Tidal Volume 380 ml; Arterial Blood Gas Vent Mode CMV; Arterial Blood Gas Ventilator rate 16 /MIN
[2024-03-09] MEDS: MEROPENEM 1 GM/NS 100 ML 1 GM/100 ML BAG IVPB ×3 (05:32→22:29)
[2024-03-09] MEDS: HEPARIN SODIUM 5,000 UNITS/ML VIAL 5000 UNITS SUB-Q ×3 (05:32→20:45)
[2024-03-09] MEDS: CENTRAL LINE FLUSH 10 ML IV PUSH ×3 (05:33→23:44)
[2024-03-09] MEDS: ATORVASTATIN 40 MG TABLET 80 MG FEED TUBE (08:07)
[2024-03-09] MEDS: LOSARTAN POTASSIUM 50 MG TABLET FEED TUBE (08:07)
[2024-03-09] MEDS: ASPIRIN 81 MG CHEWABLE TABLET FEED TUBE (08:08)
[2024-03-09] MEDS: METOPROLOL TARTRATE 50 MG TAB FEED TUBE ×2 (08:08→20:44)
[2024-03-09] MEDS: PANTOPRAZOLE SODIUM IV 40 MG VIAL IV PUSH ×2 (08:10→20:44)
[2024-03-09] MEDS: INSULIN GLARGINE (*BKC) 100 UNITS/ML 40 UNITS SUB-Q (08:19)
[2024-03-09] MEDS: MINERAL OIL/WHITE PETROLATUM OINTMENT 1 APPLIC EACH EYE ×3 (08:23→20:44)
[2024-03-09] MEDS: dexmedeTOMIDine 400 MCG/100 ML 400 MCG/100 ML BAG IV CONT (08:40)
[2024-03-09 09:29] LABS: Glucose Point of Care 211 mg/dl (65-105)
[2024-03-09] MEDS: VANCOMYCIN 1,500 MG/NS 500 ML 1,500 MG/500 ML BAG 250 MG IVPB (09:36)
--- NOTE | 2024-03-09 10:08 | P.PNIM_ITS ---
Progress Note: A&P Assessment and Plan (1) Acute respiratory failure with hypoxia: Code(s): J96.01 - Acute respiratory failure with hypoxia Status: Acute Assessment and Plan: Acute respiratory failure likely related to cardiac arrest, aspiration pneumonia, NSTEMI, hypoxia, septic shock Worsening likely secondary to ARDS versus pulmonary edema Chest CTA 02/28: Extensive right upper lobe consolidation and more mild right middle lobe consolidation, consistent with pneumonia. Consider aspiration pneumonia. Moderate to large right pleural effusion with complete atelectasis of the right lower lobe. Moderate left pleural effusion with minimal left basilar atelectasis. Small pericardial effusion. No definite acute abnormality in the abdomen or pelvis. Chronic compression fractures, as above - CXR reviewed with diffuse infiltrates and effusions -continue bronchodilators -Sedation holiday 03/08, off Nimbex for neuromuscular brayden -03/07 right thoracentesis with 1 L fluid removed -03/08 left thoracentesis with 550 mL fluid removed (2) Cardiac arrest with pulseless electrical activity: Code(s): I46.9 - Cardiac arrest, cause unspecified Status: Acute Assessment and Plan: Cardiac arrest, secondary to unknown etiology. Possible aspiration pneumonia, NSTEMI, hypoxia, septic shock, infection -see code blue sheet for the details -patient currently intubated, vasopressors for blood pressure support have been weaned off -[facility] cardiology following the patient 02/29/2024 echocardiogram Summary 1. Technically difficult study with limited views. 2. Left ventricular chamber dimension is normal. 3. Left ventricular systolic function is mildly reduced, estimated at 45-50%. The apex appears to be hypokinetic. 4. There is mildly increased left ventricular wall thickness. 5. The left ventricular diastolic function is grade I diastolic dysfunction. 6. Right ventricular systolic function is normal. 7. Left atrial chamber dimension is moderately enlarged. 8. There is mild to moderate tricuspid valve regurgitation. 9. There is small anterior pericardial effusion. (3) Septic shock: Code(s): A41.9 - Sepsis, unspecified organism; R65.21 - Severe sepsis with septic shock Status: Acute Assessment and Plan: Patient in shock, likely related to the gangrene, aspiration pneumonia, status post cardiac arrest 02/28/2024: Blood cultures have been obtained and negative till now -lactic acid has normalized -patient has been adequately fluid-resuscitated, stress dose steroids and midodrine -blood pressure now labile -continue vancomycin and meropenem (4) NSTEMI (non-ST elevated myocardial infarction): Code(s): I21.4 - Non-ST elevation (NSTEMI) myocardial infarction Status: Acute Assessment and Plan: 02/18 Increasing troponins, -EKG showed sinus rhythm with T-wave changes in V1 to V5 -appreciate cardiology evaluation and recommendation -Continue aspirin and high-dose a statin -will hold Brilinta. Resumption per General surgery -continue beta-brayden, losartan -03/02 heparin infusion was discontinued after 48 hours for NSTEMI by cardiology (5) Gangrene of right foot: Code(s): I96 - Gangrene, not elsewhere classified Status: Acute Assessment and Plan: CTA showed peripheral arterial disease with total occlusion of the right anterior and posterior tibial arteries and right peroneal artery with distal reconstitution of peroneal artery. This extensive gangrene of the right foot with gas seen on CT of the foot. General surgery spoke to the patient in the ER on the day of admission on 02/27 patient at that time agreed for below-knee amputation. Plan was to do a below- knee amputation on 02/29/2024 but patient had a cardiac arrest that night secondary to sepsis. Surgery at that time was deferred. Patient now is intubated sedated and unable to sign his consent.. Patient has no family and for many years at the shelter has had no visitor. He has 1 son which no one has been able to get hold off right several attempts. Considering patient has gangrene of the foot with no vascular supply leading to sepsis and if untreatable lead to his , Dr. Johns will proceed with amputation today. Ma and Dr. Johns has signed 2 physician consent considering patient's clearly expressed wishes prior to cardiac arrest at the time of admission, his current situation and inability to sign the consent form by himself at this time. 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 Postop management per General surgery -continue antibiotics for necrotizing gas gangrene. Patient was on meropenem and vancomycin which was started on 02/28/2024 -complete 5 days of clindamycin - 03/08 on Vancomycin, Meropenem (6) Osteomyelitis of toe of right foot: Code(s): M86.9 - Osteomyelitis, unspecified Status: Chronic Assessment and Plan: As above (7) Peripheral vascular disease: Code(s): I73.9 - Peripheral vascular disease, unspecified Status: Chronic Assessment and Plan: Patient has history of peripheral vascular disease, coronary artery disease -started on aspirin, patient will require Brilinta since he had a STEMI in 2020 but currently holding Brilinta due to surgery and bleeding (8) Type 2 diabetes mellitus: Qualifiers: 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 complication status: with other specified complication 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 skilled nursing insulin use: with skilled nursing use Qualified Code(s): E11.69 - Type 2 diabetes mellitus with other specified complication; Z79.4 - [employer] (current) use of insulin Code(s): E11.9 - Type 2 diabetes mellitus without complications Status: Acute Assessment and Plan: Currently on sliding scale insulin, Accu-Cheks Hemoglobin A1c this admission is 8.2 Continue Lantus 03/09 FBS 211 (9) Chronic obstructive pulmonary disease: Code(s): J44.9 - Chronic obstructive pulmonary disease, unspecified Status: Acute Assessment and Plan: Continue DuoNebs -continue Symbicort (10) Electrolyte abnormality: Code(s): E87.8 - Other disorders of electrolyte and fluid balance, not elsewhere classified Status: Acute Assessment and Plan: Increased free water flush 03/09 Na stable at 150 Subjective Date/time seen: 03/09/24 10:08 Interval history: Remains ventilated. Sedated with low-dose Precedex. Tolerating TF. Review of Systems Review of Systems: ROS unobtainable: Yes unobtainable due to medical condition Exam Narrative: Sclera nonicteric. Pupils equal round reactive. Oral mucosa intact as visual ized. ET tube in place. Neck without JVD. Chest coarse breath sounds. Heart regular rate and mildly tachycardic without audible murmurs. Extremities without pitting edema. One to 2+ nonpitting edema. Abdomen bowel sounds hypoactive soft no palpable mass and no obvious tenderness. Musculoskeletal right BKA with dressing in place. Otherwise no gross deformities visualized. Neurologic cranial nerves symmetric to inspection. Babinski without response. Psychiatric opened eyes to voice but did not follow commands. Objective Data Vital Signs Vital Signs: Vital Signs - 24 hr 03/08/24 10:36 03/08/24 11:11 03/08/24 12:00 Temperature Pulse Rate 103 H 102 H 86 Respiratory Rate 16 Blood Pressure Pulse Oximetry 97 Oxygen Delivery Mechanical Ventilation Fraction of Inspired Oxygen 30 10/26/24 12:00 03/08/24 12:00 03/08/24 12:00 Temperature 100.3 F H Pulse Rate 88 89 Respiratory Rate 16 16 Blood Pressure 130/52 L Pulse Oximetry 97 97 Oxygen Delivery Mechanical Ventilation Fraction of Inspired Oxygen 30 03/08/24 12:00 03/08/24 12:00 03/08/24 14:00 Temperature Pulse Rate 90 95 Respiratory Rate Blood Pressure Pulse Oximetry Oxygen Delivery Fraction of Inspired Oxygen 30 03/08/24 14:00 03/08/24 14:00 03/08/24 11:39 Temperature 100.7 F H Pulse Rate 94 101 H 102 H Respiratory Rate 19 16 Blood Pressure 133/54 L Pulse Oximetry 98 Oxygen Delivery Fraction of Inspired Oxygen 03/08/24 11:41 03/08/24 14:03 03/08/24 14:04 Temperature Pulse Rate 101 H 96 96 Respiratory Rate 21 H Blood Pressure 185/81 H Pulse Oximetry 98 Oxygen Delivery Mechanical Ventilation Fraction of Inspired Oxygen 30 03/08/24 14:16 03/08/24 14:27 03/08/24 16:00 Temperature 100.7 F H Pulse Rate 96 97 Respiratory Rate 21 H Blood Pressure Pulse Oximetry Oxygen Delivery Fraction of Inspired Oxygen 03/08/24 16:00 03/08/24 17:16 03/08/24 16:00 Temperature 100.8 F H Pulse Rate 97 93 Respiratory Rate 17 Blood Pressure 131/53 L Pulse Oximetry 98 Oxygen Delivery Fraction of Inspired Oxygen 30 03/08/24 16:48 03/08/24 16:48 03/08/24 17:05 Temperature Pulse Rate 102 H 99 97 Respiratory Rate Blood Pressure 171/71 H Pulse Oximetry 98 Oxygen Delivery Mechanical Ventilation Fraction of Inspired Oxygen 30 03/08/24 18:00 03/08/24 18:49 03/08/24 16:00 Temperature 100.5 F H 100.5 F H Pulse Rate 96 94 Respiratory Rate 17 17 Blood Pressure 158/66 H Pulse Oximetry 97 Oxygen Delivery Fraction of Inspired Oxygen 03/08/24 18:00 03/08/24 16:00 03/08/24 16:00 Temperature Pulse Rate 94 93 Respiratory Rate 19 Blood Pressure Pulse Oximetry 97 Oxygen Delivery Mechanical Ventilation Fraction of Inspired Oxygen 30 03/08/24 18:00 03/08/24 20:40 03/08/24 20:00 Temperature 100.6 F H Pulse Rate 104 H 103 H 103 H Respiratory Rate 17 Blood Pressure 156/63 H Pulse Oximetry 99 Oxygen Delivery Fraction of Inspired Oxygen 03/08/24 20:42 03/08/24 20:49 03/08/24 20:51 Temperature Pulse Rate 101 H 104 H 104 H Respiratory Rate 11 L 17 Blood Pressure Pulse Oximetry 99 Oxygen Delivery Mechanical Ventilation Fraction of Inspired Oxygen 30 03/08/24 20:00 03/08/24 20:00 03/08/24 20:00 Temperature Pulse Rate 104 H 104 H Respiratory Rate 17 Blood Pressure Pulse Oximetry 99 Oxygen Delivery Mechanical Ventilation Fraction of Inspired Oxygen 30 30 03/08/24 20:00 03/08/24 22:00 03/08/24 22:00 Temperature 100.8 F H Pulse Rate 102 H 88 88 Respiratory Rate 17 23 H Blood Pressure 117/45 L Pulse Oximetry 99 Oxygen Delivery Fraction of Inspired Oxygen 03/08/24 23:07 03/08/24 23:15 03/08/24 23:30 Temperature Pulse Rate 92 98 96 Respiratory Rate 25 H 20 Blood Pressure Pulse Oximetry 97 Oxygen Delivery Mechanical Ventilation Fraction of Inspired Oxygen 30 03/09/24 00:00 03/09/24 00:00 03/09/24 00:00 Temperature 100.8 F H Pulse Rate 95 95 95 Respiratory Rate 19 19 19 Blood Pressure 132/51 L Pulse Oximetry 98 99 Oxygen Delivery Mechanical Ventilation Fraction of Inspired Oxygen 30 03/09/24 00:00 03/09/24 00:00 03/09/24 01:22 Temperature Pulse Rate 95 93 Respiratory Rate 17 Blood Pressure Pulse Oximetry Oxygen Delivery Fraction of Inspired Oxygen 30 03/09/24 01:25 03/09/24 01:29 03/09/24 02:00 Temperature Pulse Rate 91 92 93 Respiratory Rate 20 Blood Pressure Pulse Oximetry 99 Oxygen Delivery Mechanical Ventilation Fraction of Inspired Oxygen 30 03/09/24 02:00 03/09/24 04:00 03/09/24 04:00 Temperature 100.5 F H 100.4 F H Pulse Rate 93 87 88 Respiratory Rate 17 16 Blood Pressure 125/48 L 115/48 L Pulse Oximetry 99 99 Oxygen Delivery Fraction of Inspired Oxygen 03/09/24 04:00 03/09/24 04:00 03/09/24 02:00 Temperature Pulse Rate 88 92 Respiratory Rate 16 18 Blood Pressure Pulse Oximetry 99 Oxygen Delivery Mechanical Ventilation Fraction of Inspired Oxygen 30 30 03/09/24 04:00 03/09/24 05:03 03/09/24 06:00 Temperature Pulse Rate 88 89 96 Respiratory Rate 16 Blood Pressure Pulse Oximetry 99 Oxygen Delivery Mechanical Ventilation Fraction of Inspired Oxygen 30 03/09/24 06:00 03/09/24 06:00 03/09/24 08:08 Temperature 99.7 F H Pulse Rate 97 97 97 Respiratory Rate 18 18 Blood Pressure 140/54 L Pulse Oximetry 100 Oxygen Delivery Fraction of Inspired Oxygen 03/09/24 08:12 03/09/24 08:19 03/09/24 08:27 Temperature Pulse Rate 98 101 H 101 H Respiratory Rate 18 16 Blood Pressure Pulse Oximetry 99 Oxygen Delivery Mechanical Ventilation Fraction of Inspired Oxygen 30 03/09/24 08:30 03/09/24 08:40 03/09/24 08:00 Temperature Pulse Rate 105 H 106 H 106 H Respiratory Rate 11 L Blood Pressure Pulse Oximetry 100 Oxygen Delivery Mechanical Ventilation Fraction of Inspired Oxygen 30 03/09/24 08:00 03/09/24 08:00 Temperature 100.1 F H Pulse Rate 98 Respiratory Rate 11 L Blood Pressure 157/65 H Pulse Oximetry 99 Oxygen Delivery Fraction of Inspired Oxygen 30 Intake/Output Intake/Output: Intake & Output 03/06/24 03/07/24 03/08/24 03/09/24 23:59 23:59 23:59 23:59 Intake Total 2379.6 2417.4 3058.7 1061.1 Output Total 4800 3450 2625 950 Balance -2420.4 -1032.6 433.7 111.1 Meds/Results Medications: Active Medications Generic Name Dose Route Start Last Admin Trade Name Freq PRN Reason Stop Dose Admin Acetaminophen 500 mg 03/08/24 10:18 03/08/24 22:57 Acetaminophen 500 Mg Tablet FEED TUBE 500 mg Q6H PRN Administration Pain Rated 1-3 Albuterol/Ipratropium 3 ml 02/29/24 02:00 03/09/24 08:12 Ipratropium 0.5 Mg/Albuterol Sulfate 2.5 Mg Ampul.Neb 3 Ml INHALATION Not Given Q6HRT JASON Alteplase, Recombinant 2 mg 03/06/24 09:45 03/06/24 13:10 Alteplase 2 Mg Vial (Cathflo) IV PUSH 2 mg ONCE PRN Administration Line Occlusion Aspirin 81 mg 03/09/24 08:00 03/09/24 08:08 Aspirin 81 Mg Chewable Tablet FEED TUBE 81 mg DAILY@0800 JASON Administration Atorvastatin Calcium 80 mg 03/09/24 09:00 03/09/24 08:07 Atorvastatin 40 Mg Tablet FEED TUBE 80 mg DAILY JASON Administration Dextrose 12.5 gm 02/28/24 19:23 Dextrose 50% 25 Gm/50 Ml Syringe IV PUSH PRN PRN Hypoglycemia Protocol Glucagon 1 mg 02/28/24 19:23 Glucagon For Inj 1 Mg Vial IM PRN PRN Hypoglycemia Protocol Glucose 15 gm 03/08/24 10:19 Glucose Oral Gel 15 Gm Of Glucse In 37.5 Gm Tube FEED TUBE PRN PRN Hypoglycemia Protocol Heparin Sodium (Porcine) 5,000 units 03/03/24 14:00 03/09/24 05:32 Heparin Sodium 5,000 Units/Ml Vial SUB-Q 5,000 units Q8HR JASON Administration Hydralazine HCl 20 mg 03/08/24 10:06 Hydralazine Hcl 20 Mg/Ml Vial IV PUSH Q4HR PRN Hypertension Dextrose 1,000 mls @ 100 mls/hr 02/28/24 19:23 Dextrose 5% 1,000 Ml IVPB PRN PRN Hypoglycemia Protocol Meropenem 1 gm in 100 mls @ 200 mls/hr 02/28/24 22:00 03/09/24 06:05 IVPB Infused Q8H JASON Infusion Vancomycin HCl 1,500 mg in 500 mls @ 250 mls/hr 03/07/24 22:00 03/09/24 09:36 Vancomycin 1,500 Mg/Ns 500 Ml IVPB 250 mls/hr Q18H JASON Administration Propofol 100 mls @ 5.718 mls/hr 03/08/24 23:13 03/09/24 06:00 Diprivan IV CONT 10 mcg/kg/min .[id number] JASON 5.72 mls/hr Titration Protocol 10 MCG/KG/MIN Dexmedetomidine HCl 400 mcg in 100 mls @ 4.895 mls/hr 03/09/24 08:25 03/09/24 08:40 Precedex 400 Mcg/100 Ml IV CONT 0.2 mcg/kg/hr .[id number] JASON 4.9 mls/hr Administration Protocol 0.2 MCG/KG/HR Insulin Aspart 3 - 6 units 03/01/24 00:00 03/09/24 05:29 Insulin Aspart (*Bkc) 100 Units/Ml SUB-Q 3 units Q6H JASON Administration Protocol Insulin Glargine 45 units 03/09/24 09:00 03/09/24 08:52 Insulin Glargine (*Bkc) 100 Units/Ml SUB-Q Not Given DAILY JASON Labetalol HCl 20 mg 03/08/24 10:06 03/08/24 16:48 Labetalol Hcl Inj 100 Mg/20 Ml Vial IV PUSH 20 mg Q4H PRN Administration SBP > 160 and HR> 60 -1st choice Losartan Potassium 50 mg 03/08/24 10:15 03/09/24 08:07 Losartan Potassium 50 Mg Tablet FEED TUBE 50 mg DAILY JASON Administration Metoclopramide HCl 10 mg 03/04/24 08:00 03/09/24 05:32 Metoclopramide Hcl 10 Mg/10 Ml Soln Udc FEED TUBE 10 mg Q6HR JASON Administration Metoprolol Tartrate 50 mg 03/08/24 10:15 03/09/24 08:08 Metoprolol Tartrate 50 Mg Tab FEED TUBE 50 mg Q12HR JASON Administration Miscellaneous Information 0 each 03/08/24 00:01 03/09/24 02:06 Meropenem Reorder If Still Needs Or Will Auto D/C XX 04/07/24 00:00 Not Given CLARIFY JASON Multi-Ingred Cream/Lotion/Oil/Oint 1 applic 03/07/24 21:00 03/09/24 08:23 Mineral Oil/White Petrolatum Ointment EACH EYE 1 applic Q12HR JASON Administration Multi-Ingred Cream/Lotion/Oil/Oint 1 applic 03/09/24 09:00 03/09/24 08:47 Mineral Oil/White Petrolatum Ointment EACH EYE 1 applic Q12HR JASON Administration Pantoprazole Sodium 40 mg 03/02/24 09:00 03/09/24 08:10 Pantoprazole Sodium Iv 40 Mg Vial IV PUSH 40 mg Q12HR JASON Administration Sodium Chloride 10 ml 02/29/24 06:00 03/09/24 05:33 Central Line Flush IV PUSH 10 ml Q8HR JASON Administration Sodium Chloride 20 ml 02/28/24 23:37 Central Line Flush IV PUSH PRN PRN after blood draws Radiology Results: ITS Impressions Lower Extremity CTA 02/28/24 14:54 IMPRESSION: 1. 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 2. Moderate stenosis of right popliteal artery. 3. Osteomyelitis involving first proximal and distal phalanges and head of first metatarsal. Head CT 02/29/24 05:55 Impression: No intracranial hemorrhage, mass, or acute infarct. Stable chronic encephalomalacia in the high left parietal lobe. Atrophy and chronic white matter changes, as above. Chest/Abdomen/Pelvis CTA 02/29/24 06:02 Impression: Extensive right upper lobe consolidation and more mild right middle lobe consolidation, consistent with pneumonia. Consider aspiration pneumonia. Moderate to large right pleural effusion with complete atelectasis of the right lower lobe. Moderate left pleural effusion with minimal left basilar atelectasis. Small pericardial effusion. No definite acute abnormality in the abdomen or pelvis. Chronic compression fractures, as above. Renal Ultrasound 03/03/24 15:45 IMPRESSION: 1. Normal kidneys without hydronephrosis. 2. Small amount of ascites in the abdomen and pelvis. Thoracentesis Ultrasound 03/08/24 09:35 IMPRESSION: 1. Successful ultrasound-guided thoracentesis yielding 550 mL of clear, yellow fluid. Chest X-Ray 03/09/24 06:08 IMPRESSION: 1. Stable airspace opacities in right lung and left mid and lower lung zones, consistent with pneumonia. 2. Worsened small right pleural effusion. Labs Labs: Laboratory Results - last 24 hr 03/08/24 03/08/24 03/09/24 12:05 18:43 00:05 WBC RBC Hgb Hct MCV MCH MCHC RDW Plt Count MPV Puncture Site ABG pH ABG pCO2 ABG pO2 ABG PO2/FiO2 Ratio ABG HCO3 ABG O2 Saturation ABG O2 Content ABG Base Excess A-a Gradient Oxyhemoglobin Carboxyhemoglobin Methemoglobin Reduced Hemoglobin Total Hemoglobin O2 Delivery Device O2 Liters/Min Minute Volume Vent Rate Vent Mode FiO2 Tidal Volume PEEP Peak Inspir Pressure Pressure Support Sodium Potassium Chloride Carbon Dioxide Anion Gap BUN Creatinine Estim Creat Clear Calc Estimated GFR Glucose POC Capillary Glucose 220 H 226 H 238 H Calcium Magnesium Total Bilirubin AST ALT Alkaline Phosphatase Total Protein Albumin 03/09/24 03/09/24 03/09/24 04:30 04:50 08:14 WBC 11.6 H RBC 2.88 L Hgb 8.0 L Hct 26.3 L MCV 91.3 MCH 27.8 MCHC 30.4 L RDW 16.8 H Plt Count 222 MPV 9.9 Puncture Site Artline ABG pH 7.475 H ABG pCO2 38.7 ABG pO2 107.0 H ABG PO2/FiO2 Ratio 3.57 ABG HCO3 27.9 H ABG O2 Saturation 98.2 ABG O2 Content 14.6 L ABG Base Excess 4.1 A-a Gradient 61.4 Oxyhemoglobin 97.1 Carboxyhemoglobin 0.9 Methemoglobin 0.3 Reduced Hemoglobin 1.7 Total Hemoglobin 10.6 L O2 Delivery Device Ventilator O2 Liters/Min Not Reportable Minute Volume Not Reportable Vent Rate 16 Vent Mode Cmv FiO2 30 Tidal Volume 380 PEEP 8 Peak Inspir Pressure Not Reportable Pressure Support Not Reportable Sodium 150 H Potassium 4.0 Chloride 113 H Carbon Dioxide 33 H Anion Gap 4 BUN 40 H Creatinine 0.70 Estim Creat Clear Calc 103 Estimated GFR > 60 Glucose 234 H POC Capillary Glucose 211 H Calcium 8.0 L Magnesium 2.5 H Total Bilirubin 0.3 AST 43 ALT 37 Alkaline Phosphatase 85 Total Protein 6.0 L Albumin 2.4 L
[2024-03-09 11:25] LABS: Triglycerides 93 mg/dL (<150)
--- NOTE | 2024-03-09 11:57 | P.PNINT_ITS ---
Progress Note: A&P Assessment and Plan (1) Acute respiratory failure with hypoxia: Code(s): J96.01 - Acute respiratory failure with hypoxia Status: Acute Assessment and Plan: Acute respiratory failure likely related to cardiac arrest, aspiration pneumonia, NSTEMI, hypoxia, septic shock Worsening likely secondary to ARDS versus pulmonary edema Chest CTA 02/28 Extensive right upper lobe consolidation and more mild right middle lobe consolidation, consistent with pneumonia. Consider aspiration pneumonia. Moderate to large right pleural effusion with complete atelectasis of the right lower lobe. Moderate left pleural effusion with minimal left basilar atelectasis. Small pericardial effusion. No definite acute abnormality in the abdomen or pelvis. Chronic compression fractures, as above -currently CMV mode of ventilation, peep of 8, 30 % FiO2. Tidal volume 380 -chest x-ray reviewed and shows bilateral infiltrates and large effusions. Advance ET tube by 2 cm -continue bronchodilators -on propofol and Versed infusion for sedation. Sedation holiday today -off Nimbex for neuromuscular brayden -03/07 right thoracentesis with 1 L fluid removed -03/08 patient is getting left-sided thoracentesis today -propofol turned off, will start Precedex, -placed patient on ASV mode, currently tolerating well, SBT when patient is more awake (2) Cardiac arrest with pulseless electrical activity: Code(s): I46.9 - Cardiac arrest, cause unspecified Status: Acute Assessment and Plan: Cardiac arrest, secondary to unknown etiology. Possible aspiration pneumonia, NSTEMI, hypoxia, septic shock, infection -see code blue sheet for the details -patient currently intubated, vasopressors for blood pressure support have been weaned off -appreciate cardiology following the patient 02/29/2024 echocardiogram Summary 1. Technically difficult study with limited views. 2. Left ventricular chamber dimension is normal. 3. Left ventricular systolic function is mildly reduced, estimated at 45-50%. The apex appears to be hypokinetic. 4. There is mildly increased left ventricular wall thickness. 5. The left ventricular diastolic function is grade I diastolic dysfunction. 6. Right ventricular systolic function is normal. 7. Left atrial chamber dimension is moderately enlarged. 8. There is mild to moderate tricuspid valve regurgitation. 9. There is small anterior pericardial effusion. (3) Septic shock: Code(s): A41.9 - Sepsis, unspecified organism; R65.21 - Severe sepsis with septic shock Status: Acute Assessment and Plan: Resolved Patient in shock, likely related to the gangrene, aspiration pneumonia, status post cardiac arrest 02/28/2024: Blood cultures have been obtained and negative till now -lactic acid has normalized -patient has been adequately fluid-resuscitated, stress dose steroids and midodrine -blood pressures are now elevated requiring losartan (4) NSTEMI (non-ST elevated myocardial infarction): Code(s): I21.4 - Non-ST elevation (NSTEMI) myocardial infarction Status: Acute Assessment and Plan: Increasing troponins, -EKG showed sinus rhythm with T-wave changes in V1 to V5 -appreciate cardiology evaluation and recommendation -Continue aspirin and high-dose a statin -will hold Brilinta. Resumption per General surgery -continue beta-brayden, losartan -03/02 heparin infusion was discontinued after 48 hours for NSTEMI by cardiology (5) Gangrene of right foot: Code(s): I96 - Gangrene, not elsewhere classified Status: Acute Assessment and Plan: CTA showed peripheral arterial disease with total occlusion of the right anterior and posterior tibial arteries and right peroneal artery with distal reconstitution of peroneal artery. This extensive gangrene of the right foot with gas seen on CT of the foot. General surgery spoke to the patient in the ER on the day of admission on 02/27 patient at that time agreed for below-knee amputation. Plan was to do a below- knee amputation on 02/29/2024 but patient had a cardiac arrest that night secondary to sepsis. Surgery at that time was deferred. Patient now is intubated sedated and unable to sign his consent.. Patient has no family and for many years at the residential has had no visitor. He has 1 son which no one has been able to get hold off right several attempts. Considering patient has gangrene of the foot with no vascular supply leading to sepsis and if untreatable lead to his , Dr. Johns will proceed with amputation today, 03/05/2024. Dr. Collins and Dr. Johns has signed 2 physician consent considering patient's clearly expressed wishes prior to cardiac arrest at the time of admission, his current situation and inability to sign the consent form by him self at this time. 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 Postop management per General surgery -continue antibiotics for necrotizing gas gangrene. Patient on meropenem and vancomycin which was started on 02/28/2024 -complete 5 days of clindamycin (6) Osteomyelitis of toe of right foot: Code(s): M86.9 - Osteomyelitis, unspecified Status: Chronic Assessment and Plan: As above (7) Peripheral vascular disease: Code(s): I73.9 - Peripheral vascular disease, unspecified Status: Chronic Assessment and Plan: Patient has history of peripheral vascular disease, coronary artery disease -started on aspirin, patient will require Brilinta since he had a STEMI in 2020 but currently holding Brilinta due to surgery and bleeding (8) Type 2 diabetes mellitus: Qualifiers: 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 complication status: with other specified complication 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 superintendent terminal insulin use: with superintendent terminal use Qualified Code(s): E11.69 - Type 2 diabetes mellitus with other specified complication; 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 Code(s): E11.9 - Type 2 diabetes mellitus without complications Status: Acute Assessment and Plan: Currently on sliding scale insulin, Accu-Cheks Hemoglobin A1c this admission is 8.2 Increase Lantus (9) Chronic obstructive pulmonary disease: Code(s): J44.9 - Chronic obstructive pulmonary disease, unspecified Status: Acute Assessment and Plan: Continue DuoNebs -continue Symbicort (10) Electrolyte abnormality: Code(s): E87.8 - Other disorders of electrolyte and fluid balance, not elsewhere classified Status: Acute Assessment and Plan: Hypernatremia, Increase free water flush Plan DVT prophylaxis: Heparin subQ Stress ulcer prophylaxis: Protonix Nutrition: Tube feeds at goal and tolerating, increase free water flushes, positive bowel movement Code Status: Full code. Patient has no family available. There is some indication but no confirmation the patient has a son. No information available at the residential where he lived for 11 years. Care coordination is trying to locate patient's son but has not been able to find any information despite multiple times Critical Care Time Spent: 33 minutes Due to a high probability of clinically significant, life threatening deterioration, the patient required my highest level of preparedness to intervene emergently and I personally spent this critical care time directly and personally managing the patient. This critical care time included obtaining a history; examining the patient; pulse oximetry; ordering and review of studies; arranging urgent treatment with development of a management plan; evaluation of patient's response to treatment; frequent reassessment; and discussions with other providers. It was exclusive of separately billable procedures and treating other patients and teaching time. Please see Assessment and Plan section and the rest of the note for further information on patient assessment and treatment This dictation may have been done utilizing a voice recognition system. Attempts have been made to correct errors. However, there may be uncorrected grammatical, spelling, and recognitions errors present. Subjective Date/time seen: 03/09/24 11:57 Interval history: Reason for consult: Status post PEA arrest, right foot gangrene with cellulitis, shock 02/27: Intubated 03/05:Right below-knee amputation with placement of posterior Ortho Glass splint 03/09/2024: Patient seen and examined the ICU, remains intubated, on CMV mode of ventilation, peep of 8, 30% FiO2. Sedated with propofol infusion, sedation on hold, patient opens eyes but does not follow simple commands, does withdraw to pain in all extremities. Urine output has been adequate, T packs of 100.8. Tolerating tube feeds, positive bowel movements Review of Systems Review of Systems: ROS unobtainable: Yes unobtainable due to endotracheal tube, unobtainable due to medical condition and unobtainable due to mental status Exam Narrative: General: Patient intubated and sedated, in no acute distress HEENT:, pupils are equal and reactive from a sclera is clear Neck:? supple Respiratory:? Coarse breath sounds bilaterally, decreased at bases, adequate air entry, no wheezing Cardiac:? S1-S2 normal, regular rate and rhythm Abdomen:? Soft, nontender, nondistended, hypoactive bowel sounds Extremities:? Right BKA stump under the dressing. Left dorsalis pedis is dopplerable Neuro:? Patient is intubated, sedated, opens his eyes to name but does not follow simple commands, withdraws to pain in all extremities, Skin:? Patient has maceration of his perianal area, pressure ulcer on his buttocks. Psych:? Unable to assess at this time Objective Data Vital Signs Vital Signs: Vital Signs - 24 hr 03/08/24 12:00 03/08/24 12:00 03/08/24 12:00 Temperature 100.3 F H Pulse Rate 86 88 89 Respiratory Rate 16 16 16 Blood Pressure 130/52 L Pulse Oximetry 97 Oxygen Delivery Fraction of Inspired Oxygen 03/08/24 12:00 03/08/24 12:00 03/08/24 12:00 Temperature Pulse Rate 90 Respiratory Rate Blood Pressure Pulse Oximetry 97 Oxygen Delivery Mechanical Ventilation Fraction of Inspired Oxygen 30 30 03/08/24 14:00 03/08/24 14:00 03/08/24 14:00 Temperature 100.7 F H Pulse Rate 95 94 101 H Respiratory Rate 19 16 Blood Pressure 133/54 L Pulse Oximetry 98 Oxygen Delivery Fraction of Inspired Oxygen 03/08/24 14:03 03/08/24 14:04 03/08/24 14:16 Temperature Pulse Rate 96 96 96 Respiratory Rate 21 H 21 H Blood Pressure Pulse Oximetry 98 Oxygen Delivery Mechanical Ventilation Fraction of Inspired Oxygen 30 03/08/24 14:27 03/08/24 16:00 03/08/24 16:00 Temperature 100.7 F H Pulse Rate 97 Respiratory Rate Blood Pressure Pulse Oximetry Oxygen Delivery Fraction of Inspired Oxygen 30 03/08/24 17:16 03/08/24 16:00 03/08/24 16:48 Temperature 100.8 F H Pulse Rate 97 93 102 H Respiratory Rate 17 Blood Pressure 131/53 L Pulse Oximetry 98 Oxygen Delivery Fraction of Inspired Oxygen 03/08/24 16:48 03/08/24 17:05 03/08/24 18:00 Temperature 100.5 F H Pulse Rate 99 97 96 Respiratory Rate 17 Blood Pressure 171/71 H 158/66 H Pulse Oximetry 98 97 Oxygen Delivery Mechanical Ventilation Fraction of Inspired Oxygen 30 03/08/24 18:49 03/08/24 16:00 03/08/24 18:00 Temperature 100.5 F H Pulse Rate 94 94 Respiratory Rate 17 19 Blood Pressure Pulse Oximetry Oxygen Delivery Fraction of Inspired Oxygen 03/08/24 16:00 03/08/24 16:00 03/08/24 18:00 Temperature Pulse Rate 93 104 H Respiratory Rate Blood Pressure Pulse Oximetry 97 Oxygen Delivery Mechanical Ventilation Fraction of Inspired Oxygen 30 03/08/24 20:40 03/08/24 20:00 03/08/24 20:42 Temperature 100.6 F H Pulse Rate 103 H 103 H 101 H Respiratory Rate 17 11 L Blood Pressure 156/63 H Pulse Oximetry 99 Oxygen Delivery Fraction of Inspired Oxygen 03/08/24 20:49 03/08/24 20:51 03/08/24 20:00 Temperature Pulse Rate 104 H 104 H Respiratory Rate 17 Blood Pressure Pulse Oximetry 99 Oxygen Delivery Mechanical Ventilation Fraction of Inspired Oxygen 30 30 03/08/24 20:00 03/08/24 20:00 03/08/24 20:00 Temperature Pulse Rate 104 H 104 H 102 H Respiratory Rate 17 17 Blood Pressure Pulse Oximetry 99 Oxygen Delivery Mechanical Ventilation Fraction of Inspired Oxygen 30 03/08/24 22:00 03/08/24 22:00 03/08/24 23:07 Temperature 100.8 F H Pulse Rate 88 88 92 Respiratory Rate 23 H Blood Pressure 117/45 L Pulse Oximetry 99 97 Oxygen Delivery Mechanical Ventilation Fraction of Inspired Oxygen 30 03/08/24 23:15 03/08/24 23:30 03/09/24 00:00 Temperature Pulse Rate 98 96 95 Respiratory Rate 25 H 20 19 Blood Pressure Pulse Oximetry Oxygen Delivery Fraction of Inspired Oxygen 03/09/24 00:00 03/09/24 00:00 03/09/24 00:00 Temperature 100.8 F H Pulse Rate 95 95 Respiratory Rate 19 19 Blood Pressure 132/51 L Pulse Oximetry 98 99 Oxygen Delivery Mechanical Ventilation Fraction of Inspired Oxygen 30 30 03/09/24 00:00 03/09/24 01:22 03/09/24 01:25 Temperature Pulse Rate 95 93 91 Respiratory Rate 17 Blood Pressure Pulse Oximetry 99 Oxygen Delivery Mechanical Ventilation Fraction of Inspired Oxygen 30 03/09/24 01:29 03/09/24 02:00 03/09/24 02:00 Temperature 100.5 F H Pulse Rate 92 93 93 Respiratory Rate 20 17 Blood Pressure 125/48 L Pulse Oximetry 99 Oxygen Delivery Fraction of Inspired Oxygen 03/09/24 04:00 03/09/24 04:00 03/09/24 04:00 Temperature 100.4 F H Pulse Rate 87 88 88 Respiratory Rate 16 16 Blood Pressure 115/48 L Pulse Oximetry 99 99 Oxygen Delivery Mechanical Ventilation Fraction of Inspired Oxygen 30 03/09/24 04:00 03/09/24 02:00 03/09/24 04:00 Temperature Pulse Rate 92 88 Respiratory Rate 18 16 Blood Pressure Pulse Oximetry Oxygen Delivery Fraction of Inspired Oxygen 30 03/09/24 05:03 03/09/24 06:00 03/09/24 06:00 Temperature 99.7 F H Pulse Rate 89 96 97 Respiratory Rate 18 Blood Pressure 140/54 L Pulse Oximetry 99 100 Oxygen Delivery Mechanical Ventilation Fraction of Inspired Oxygen 30 03/09/24 06:00 03/09/24 08:08 03/09/24 08:12 Temperature Pulse Rate 97 97 98 Respiratory Rate 18 18 Blood Pressure Pulse Oximetry Oxygen Delivery Fraction of Inspired Oxygen 03/09/24 08:19 03/09/24 08:27 03/09/24 08:30 Temperature Pulse Rate 101 H 101 H 105 H Respiratory Rate 16 Blood Pressure Pulse Oximetry 99 100 Oxygen Delivery Mechanical Ventilation Mechanical Ventilation Fraction of Inspired Oxygen 30 30 03/09/24 08:40 03/09/24 08:00 03/09/24 08:00 Temperature Pulse Rate 106 H 106 H Respiratory Rate 11 L Blood Pressure Pulse Oximetry Oxygen Delivery Fraction of Inspired Oxygen 30 03/09/24 08:00 03/09/24 10:00 03/09/24 10:00 Temperature 100.1 F H 100.3 F H Pulse Rate 98 82 82 Respiratory Rate 11 L 24 H Blood Pressure 157/65 H 183/111 H Pulse Oximetry 99 99 Oxygen Delivery Fraction of Inspired Oxygen 03/09/24 10:54 03/09/24 11:28 03/09/24 08:00 Temperature Pulse Rate 85 83 106 H Respiratory Rate 12 14 Blood Pressure Pulse Oximetry 100 Oxygen Delivery Mechanical Ventilation Fraction of Inspired Oxygen 30 03/09/24 08:30 03/09/24 10:00 03/09/24 11:36 Temperature Pulse Rate 100 82 86 Respiratory Rate 12 12 16 Blood Pressure Pulse Oximetry Oxygen Delivery Fraction of Inspired Oxygen 03/09/24 10:00 03/09/24 09:00 Temperature Pulse Rate 82 83 Respiratory Rate 12 12 Blood Pressure Pulse Oximetry Oxygen Delivery Fraction of Inspired Oxygen Intake/Output Intake/Output: Intake & Output 03/06/24 03/07/24 03/08/24 03/09/24 23:59 23:59 23:59 23:59 Intake Total 2379.6 2417.4 3058.7 1089.7 Output Total 4800 3450 2625 950 Balance -2420.4 -1032.6 433.7 139.7 Meds/Results Medications: Active Medications Generic Name Dose Route Start Last Admin Trade Name Freq PRN Reason Stop Dose Admin Acetaminophen 500 mg 03/08/24 10:18 03/08/24 22:57 Acetaminophen 500 Mg Tablet FEED TUBE 500 mg Q6H PRN Administration Pain Rated 1-3 Albuterol/Ipratropium 3 ml 02/29/24 02:00 03/09/24 08:12 Ipratropium 0.5 Mg/Albuterol Sulfate 2.5 Mg Ampul.Neb 3 Ml INHALATION Not Given Q6HRT JASON Alteplase, Recombinant 2 mg 03/06/24 09:45 03/06/24 13:10 Alteplase 2 Mg Vial (Cathflo) IV PUSH 2 mg ONCE PRN Administration Line Occlusion Aspirin 81 mg 03/09/24 08:00 03/09/24 08:08 Aspirin 81 Mg Chewable Tablet FEED TUBE 81 mg DAILY@0800 JASON Administration Atorvastatin Calcium 80 mg 03/09/24 09:00 03/09/24 08:07 Atorvastatin 40 Mg Tablet FEED TUBE 80 mg DAILY JASON Administration Dextrose 12.5 gm 02/28/24 19:23 Dextrose 50% 25 Gm/50 Ml Syringe IV PUSH PRN PRN Hypoglycemia Protocol Glucagon 1 mg 02/28/24 19:23 Glucagon For Inj 1 Mg Vial IM PRN PRN Hypoglycemia Protocol Glucose 15 gm 03/08/24 10:19 Glucose Oral Gel 15 Gm Of Glucse In 37.5 Gm Tube FEED TUBE PRN PRN Hypoglycemia Protocol Heparin Sodium (Porcine) 5,000 units 03/03/24 14:00 03/09/24 05:32 Heparin Sodium 5,000 Units/Ml Vial SUB-Q 5,000 units Q8HR JASON Administration Hydralazine HCl 20 mg 03/08/24 10:06 Hydralazine Hcl 20 Mg/Ml Vial IV PUSH Q4HR PRN Hypertension Dextrose 1,000 mls @ 100 mls/hr 02/28/24 19:23 Dextrose 5% 1,000 Ml IVPB PRN PRN Hypoglycemia Protocol Meropenem 1 gm in 100 mls @ 200 mls/hr 02/28/24 22:00 03/09/24 06:05 IVPB Infused Q8H JASON Infusion Vancomycin HCl 1,500 mg in 500 mls @ 250 mls/hr 03/07/24 22:00 03/09/24 09:36 Vancomycin 1,500 Mg/Ns 500 Ml IVPB 250 mls/hr Q18H JASON Administration Dexmedetomidine HCl 400 mcg in 100 mls @ 4.895 mls/hr 03/09/24 08:25 03/09/24 11:36 Precedex 400 Mcg/100 Ml IV CONT 0.2 mcg/kg/hr .[id number] AJSON 4.9 mls/hr Titration Protocol 0.2 MCG/KG/HR Insulin Aspart 3 - 6 units 03/01/24 00:00 03/09/24 11:48 Insulin Aspart (*Bkc) 100 Units/Ml SUB-Q Not Given Q6H JASON Protocol Insulin Glargine 45 units 03/09/24 09:00 03/09/24 08:52 Insulin Glargine (*Bkc) 100 Units/Ml SUB-Q Not Given DAILY JASON Labetalol HCl 20 mg 03/08/24 10:06 03/08/24 16:48 Labetalol Hcl Inj 100 Mg/20 Ml Vial IV PUSH 20 mg Q4H PRN Administration SBP > 160 and HR> 60 -1st choice Losartan Potassium 50 mg 03/08/24 10:15 03/09/24 08:07 Losartan Potassium 50 Mg Tablet FEED TUBE 50 mg DAILY JASON Administration Metoclopramide HCl 10 mg 03/04/24 08:00 03/09/24 11:48 Metoclopramide Hcl 10 Mg/10 Ml Soln Udc FEED TUBE 10 mg Q6HR JASON Administration Metoprolol Tartrate 50 mg 03/08/24 10:15 03/09/24 08:08 Metoprolol Tartrate 50 Mg Tab FEED TUBE 50 mg Q12HR JASON Administration Miscellaneous Information 0 each 03/08/24 00:01 03/09/24 02:06 Meropenem Reorder If Still Needs Or Will Auto D/C XX 04/07/24 00:00 Not Given CLARIFY JASON Multi-Ingred Cream/Lotion/Oil/Oint 1 applic 03/07/24 21:00 03/09/24 08:23 Mineral Oil/White Petrolatum Ointment EACH EYE 1 applic Q12HR JASON Administration Multi-Ingred Cream/Lotion/Oil/Oint 1 applic 03/09/24 09:00 03/09/24 08:47 Mineral Oil/White Petrolatum Ointment EACH EYE 1 applic Q12HR JASON Administration Pantoprazole Sodium 40 mg 03/02/24 09:00 03/09/24 08:10 Pantoprazole Sodium Iv 40 Mg Vial IV PUSH 40 mg Q12HR JASON Administration Sodium Chloride 10 ml 02/29/24 06:00 03/09/24 05:33 Central Line Flush IV PUSH 10 ml Q8HR JASON Administration Sodium Chloride 20 ml 02/28/24 23:37 Central Line Flush IV PUSH PRN PRN after blood draws Radiology Results: ITS Impressions Lower Extremity CTA 02/28/24 14:54 IMPRESSION: 1. 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 2. Moderate stenosis of right popliteal artery. 3. Osteomyelitis involving first proximal and distal phalanges and head of first metatarsal. Head CT 02/29/24 05:55 Impression: No intracranial hemorrhage, mass, or acute infarct. Stable chronic encephalomalacia in the high left parietal lobe. Atrophy and chronic white matter changes, as above. Chest/Abdomen/Pelvis CTA 02/29/24 06:02 Impression: Extensive right upper lobe consolidation and more mild right middle lobe consolidation, consistent with pneumonia. Consider aspiration pneumonia. Moderate to large right pleural effusion with complete atelectasis of the right lower lobe. Moderate left pleural effusion with minimal left basilar atelectasis. Small pericardial effusion. No definite acute abnormality in the abdomen or pelvis. Chronic compression fractures, as above. Renal Ultrasound 03/03/24 15:45 IMPRESSION: 1. Normal kidneys without hydronephrosis. 2. Small amount of ascites in the abdomen and pelvis. Thoracentesis Ultrasound 03/08/24 09:35 IMPRESSION: 1. Successful ultrasound-guided thoracentesis yielding 550 mL of clear, yellow fluid. Chest X-Ray 03/09/24 06:08 IMPRESSION: 1. Stable airspace opacities in right lung and left mid and lower lung zones, consistent with pneumonia. 2. Worsened small right pleural effusion. Labs Labs: Laboratory Results - last 24 hr 03/08/24 03/08/24 03/09/24 12:05 18:43 00:05 WBC RBC Hgb Hct MCV MCH MCHC RDW Plt Count MPV Puncture Site ABG pH ABG pCO2 ABG pO2 ABG PO2/FiO2 Ratio ABG HCO3 ABG O2 Saturation ABG O2 Content ABG Base Excess A-a Gradient Oxyhemoglobin Carboxyhemoglobin Methemoglobin Reduced Hemoglobin Total Hemoglobin O2 Delivery Device O2 Liters/Min Minute Volume Vent Rate Vent Mode FiO2 Tidal Volume PEEP Peak Inspir Pressure Pressure Support Sodium Potassium Chloride Carbon Dioxide Anion Gap BUN Creatinine Estim Creat Clear Calc Estimated GFR Glucose POC Capillary Glucose 220 H 226 H 238 H Calcium Magnesium Total Bilirubin AST ALT Alkaline Phosphatase Total Protein Albumin Triglycerides 03/09/24 03/09/24 03/09/24 04:30 04:50 08:14 WBC 11.6 H RBC 2.88 L Hgb 8.0 L Hct 26.3 L MCV 91.3 MCH 27.8 MCHC 30.4 L RDW 16.8 H Plt Count 222 MPV 9.9 Puncture Site Artline ABG pH 7.475 H ABG pCO2 38.7 ABG pO2 107.0 H ABG PO2/FiO2 Ratio 3.57 ABG HCO3 27.9 H ABG O2 Saturation 98.2 ABG O2 Content 14.6 L ABG Base Excess 4.1 A-a Gradient 61.4 Oxyhemoglobin 97.1 Carboxyhemoglobin 0.9 Methemoglobin 0.3 Reduced Hemoglobin 1.7 Total Hemoglobin 10.6 L O2 Delivery Device Ventilator O2 Liters/Min Not Reportable Minute Volume Not Reportable Vent Rate 16 Vent Mode Cmv FiO2 30 Tidal Volume 380 PEEP 8 Peak Inspir Pressure Not Reportable Pressure Support Not Reportable Sodium 150 H Potassium 4.0 Chloride 113 H Carbon Dioxide 33 H Anion Gap 4 BUN 40 H Creatinine 0.70 Estim Creat Clear Calc 103 Estimated GFR > 60 Glucose 234 H POC Capillary Glucose 211 H Calcium 8.0 L Magnesium 2.5 H Total Bilirubin 0.3 AST 43 ALT 37 Alkaline Phosphatase 85 Total Protein 6.0 L Albumin 2.4 L Triglycerides 93 Quality VTE Prophylaxis VTE prophylaxis: pharmacologic ordered
[2024-03-09 11:59] LABS: Glucose Point of Care 181 mg/dl (65-105)
[2024-03-09 18:26] LABS: Glucose Point of Care 191 mg/dl (65-105)
--- NOTE | 2024-03-09 19:15 | PC.NURSE ---
Arterial line removed at 14:30 , 03/09/2024.
[2024-03-10] VITALS (48 sets, daily range): BP systolic 97–158; BP diastolic 46–70; PULSE 68–94; RESP 11–23; TEMP 37.4–38; O2SAT 99–100
[2024-03-10 00:06] LABS: Glucose Point of Care 173 mg/dl (65-105)
[2024-03-10] MEDS: dexmedeTOMIDine 400 MCG/100 ML 400 MCG/100 ML BAG IV CONT (01:09)
[2024-03-10] MEDS: IPRATROPIUM 0.5 MG/ALBUTEROL SULFATE 2.5 MG AMPUL.NEB 3 ML INHALATION ×4 (02:08→20:40)
[2024-03-10 04:15] LABS: Hemoglobin 7.7 g/dL (14.0-18.0); Mean Corpuscular HGB Conc 29.6 g/dl (32-36); Mean Corpuscular Hemoglobin 27.6 pg (26-34); Mean Corpuscular Volume 93.2 fl (80-100); Mean Platelet Volume 10.7 fl (7.4-10.4); Platelet Count Result 194 k/mm3 (150-375); Red Blood Count 2.79 M/mm3 (4.6-6.20); Red Cell Distribution Width 16.7 % (11.5-14.5)
[2024-03-10 04:33] LABS: Alanine Aminotransferase 55 U/L (6-50); Albumin Level 2.4 g/dL (3.5-5.1); Alkaline Phosphatase 90 U/L (38-126); Anion Gap 2 mmol/L (4-12); Aspartate Amino Transferase 77 U/L (17-59); Bilirubin,Total 0.4 mg/dL (0.2-1.3); Blood Urea Nitrogen 34 mg/dL (9-20); Calcium 7.9 mg/dL (8.4-10.2); Carbon Dioxide 36 mmol/L (22-30); Chloride 113 mmol/L (98-107); Estimated CRCL calculation 90 ml/min; Estimated Glomerular Filt Rate > 60; Glucose 145 mg/dL (65-110); Magnesium 2.4 mg/dL (1.6-2.3); Potassium 3.8 mmol/L (3.4-5.0); Sodium 151 mmol/L (137-145)
[2024-03-10] MEDS: MEROPENEM 1 GM/NS 100 ML 1 GM/100 ML BAG IVPB ×3 (05:23→21:49)
[2024-03-10] MEDS: HEPARIN SODIUM 5,000 UNITS/ML VIAL 5000 UNITS SUB-Q ×3 (05:23→21:49)
[2024-03-10] MEDS: VANCOMYCIN 1,750 MG/NS 500 ML 1,750 MG/500 ML BAG 250 MG IVPB ×2 (05:23→22:07)
[2024-03-10 05:38] LABS: Base Excess ABG 8.3 mEq/l (+/-2.0); Carboxyhemoglobin 1.4 % THb (0-2.0); Fractional Inspired Oxygen 30 %; HCO3 ABG 32.5 mEq/l (22.0-26.0); Methemoglobin ABG 0.3 %THb (0-1.5); Oxygen Content ABG 11.6 %vol (16.0-22.0); Oxyhemoglobin 96.5 % THb (90.0-100.0); PCO2 ABG 44.4 mmHg (35.0-45.0); PO2 ABG 101.7 mmHg (80.0-100.0); PO2 FiO2 Ratio Arterial Blood 3.39 %; Reduced Hemoglobin 1.8 %THb (0-5.0); Total Hemoglobin 8.4 g/dL (12.0-18.0); pH ABG 7.483 (7.350-7.450)
[2024-03-10 05:39] LABS: Device VENTILATOR; Modified Allen's Test Pass; Site Drawn RIGHT RADIAL
[2024-03-10 05:40] LABS: Arterial Blood Gas PEEP 8 cmH2O; Arterial Blood Gas Tidal Volume 380 ml; Arterial Blood Gas Vent Mode CMV; Arterial Blood Gas Ventilator rate 16 /MIN
[2024-03-10] MEDS: CENTRAL LINE FLUSH 10 ML IV PUSH ×3 (07:57→21:49)
[2024-03-10] MEDS: ATORVASTATIN 40 MG TABLET 80 MG FEED TUBE (08:44)
[2024-03-10] MEDS: LOSARTAN POTASSIUM 50 MG TABLET FEED TUBE (08:44)
[2024-03-10] MEDS: ASPIRIN 81 MG CHEWABLE TABLET FEED TUBE (08:45)
[2024-03-10] MEDS: PANTOPRAZOLE SODIUM IV 40 MG VIAL IV PUSH ×2 (08:45→21:49)
[2024-03-10] MEDS: MINERAL OIL/WHITE PETROLATUM OINTMENT 1 APPLIC EACH EYE ×3 (08:45→21:48)
[2024-03-10] MEDS: METOPROLOL TARTRATE 50 MG TAB FEED TUBE ×2 (08:45→21:49)
[2024-03-10] MEDS: INSULIN GLARGINE (*BKC) 100 UNITS/ML 45 UNITS SUB-Q (09:00)
[2024-03-10 09:24] LABS: Glucose Point of Care 172 mg/dl (65-105)
--- NOTE | 2024-03-10 09:52 | P.PNINT_ITS ---
Progress Note: A&P Assessment and Plan (1) Acute respiratory failure with hypoxia: Code(s): J96.01 - Acute respiratory failure with hypoxia Status: Acute Assessment and Plan: Acute respiratory failure likely related to cardiac arrest, aspiration pneumonia, NSTEMI, hypoxia, septic shock Worsening likely secondary to ARDS versus pulmonary edema Chest CTA 02/28 Extensive right upper lobe consolidation and more mild right middle lobe consolidation, consistent with pneumonia. Consider aspiration pneumonia. Moderate to large right pleural effusion with complete atelectasis of the right lower lobe. Moderate left pleural effusion with minimal left basilar atelectasis. Small pericardial effusion. No definite acute abnormality in the abdomen or pelvis. Chronic compression fractures, as above -currently CMV mode of ventilation, peep of 8, 30 % FiO2. Tidal volume 380 -chest x-ray reviewed -continue bronchodilators -on precedex for sedation. Sedation holiday today -03/07 right thoracentesis with 1 L fluid removed -03/08 patient is getting left-sided thoracentesis today (2) Cardiac arrest with pulseless electrical activity: Code(s): I46.9 - Cardiac arrest, cause unspecified Status: Acute Assessment and Plan: Cardiac arrest, secondary to unknown etiology. Possible aspiration pneumonia, NSTEMI, hypoxia, septic shock, infection -see code blue sheet for the details -patient currently intubated, vasopressors for blood pressure support have been weaned off -appreciate cardiology following the patient 02/29/2024 echocardiogram Summary 1. Technically difficult study with limited views. 2. Left ventricular chamber dimension is normal. 3. Left ventricular systolic function is mildly reduced, estimated at 45-50%. The apex appears to be hypokinetic. 4. There is mildly increased left ventricular wall thickness. 5. The left ventricular diastolic function is grade I diastolic dysfunction. 6. Right ventricular systolic function is normal. 7. Left atrial chamber dimension is moderately enlarged. 8. There is mild to moderate tricuspid valve regurgitation. 9. There is small anterior pericardial effusion. (3) Septic shock: Code(s): A41.9 - Sepsis, unspecified organism; R65.21 - Severe sepsis with septic shock Status: Acute Assessment and Plan: Resolved Patient in shock, likely related to the gangrene, aspiration pneumonia, status post cardiac arrest 02/28/2024: Blood cultures have been obtained and negative till now -lactic acid has normalized -patient has been adequately fluid-resuscitated, stress dose steroids and midodrine -blood pressures are now elevated requiring losartan and metoprolol (4) NSTEMI (non-ST elevated myocardial infarction): Code(s): I21.4 - Non-ST elevation (NSTEMI) myocardial infarction Status: Acute Assessment and Plan: Increasing troponins, -EKG showed sinus rhythm with T-wave changes in V1 to V5 -appreciate cardiology evaluation and recommendation -Continue aspirin and high-dose a statin -will hold Brilinta. Resumption per General surgery -continue beta-brayden, losartan -03/02 heparin infusion was discontinued after 48 hours for NSTEMI by cardiology (5) Gangrene of right foot: Code(s): I96 - Gangrene, not elsewhere classified Status: Acute Assessment and Plan: CTA showed peripheral arterial disease with total occlusion of the right anterior and posterior tibial arteries and right peroneal artery with distal reconstitution of peroneal artery. This extensive gangrene of the right foot with gas seen on CT of the foot. General surgery spoke to the patient in the ER on the day of admission on 02/27 patient at that time agreed for below-knee amputation. Plan was to do a below- knee amputation on 02/29/2024 but patient had a cardiac arrest that night secondary to sepsis. Surgery at that time was deferred. Patient now is intubated sedated and unable to sign his consent.. 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 He has 1 son which no one has been able to get hold off right several attempts. Considering patient has gangrene of the foot with no vascular supply leading to sepsis and if untreatable lead to his , Dr. Johns will proceed with amputation today, 03/05/2024. Dr. Collins and Dr. Johns has signed 2 physician consent considering p preston's clearly expressed wishes prior to cardiac arrest at the time of admission, his current situation and inability to sign the consent form by himself at this time. 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 Postop management per General surgery -continue antibiotics for necrotizing gas gangrene. Patient on meropenem and vancomycin which was started on 02/28/2024 -complete 5 days of clindamycin (6) Osteomyelitis of toe of right foot: Code(s): M86.9 - Osteomyelitis, unspecified Status: Chronic Assessment and Plan: As above (7) Peripheral vascular disease: Code(s): I73.9 - Peripheral vascular disease, unspecified Status: Chronic Assessment and Plan: Patient has history of peripheral vascular disease, coronary artery disease -started on aspirin, patient will require Brilinta since he had a STEMI in 2020 but currently holding Brilinta due to surgery and bleeding (8) Type 2 diabetes mellitus: Qualifiers: 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 complication status: with other specified complication 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 assisted insulin use: with salvage determiner use Qualified Code(s): E11.69 - Type 2 diabetes mellitus with other specified complication; Z79.4 - custodial (current) use of insulin Code(s): E11.9 - Type 2 diabetes mellitus without complications Status: Acute Assessment and Plan: Currently on sliding scale insulin, Accu-Cheks Hemoglobin A1c this admission is 8.2 Continue Lantus (9) Chronic obstructive pulmonary disease: Code(s): J44.9 - Chronic obstructive pulmonary disease, unspecified Status: Acute Assessment and Plan: Continue DuoNebs -continue Symbicort (10) Electrolyte abnormality: Code(s): E87.8 - Other disorders of electrolyte and fluid balance, not elsewhere classified Status: Acute Assessment and Plan: Hypernatremia, Increase free water flush Plan DVT prophylaxis: Heparin subQ Stress ulcer prophylaxis: Protonix Nutrition: Tube feeds at goal and tolerating, increase free water flushes, positive bowel movement Code Status: Full code. Patient has no family available. There is some indication but no confirmation the patient has a son. No information available at the skilled nursing where he lived for 11 years. Care coordination is trying to locate patient's son but has not been able to find any information despite multiple times Critical Care Time Spent: 32 minutes Due to a high probability of clinically significant, life threatening deterioration, the patient required my highest level of preparedness to intervene emergently and I personally spent this critical care time directly and personally managing the patient. This critical care time included obtaining a history; examining the patient; pulse oximetry; ordering and review of studies; arranging urgent treatment with development of a management plan; evaluation of patient's response to treatment; frequent reassessment; and discussions with other providers. It was exclusive of separately billable procedures and treating other patients and teaching time. Please see Assessment and Plan section and the rest of the note for further information on patient assessment and treatment This dictation may have been done utilizing a voice recognition system. Attempts have been made to correct errors. However, there may be uncorrected grammatical, spelling, and recognitions errors present. Subjective Date/time seen: 03/10/24 Overnight events reviewed. Low-grade fever Continues to be on mechanical ventilation 30% FiO2 Continues to be sedated with Tolerating tube feed. One episode of vomiting. Good urine output. Other Vitals acceptable Interval history: Reason for consult: Status post PEA arrest, right foot gangrene with cellulitis, shock 02/27: Intubated 03/05:Right below-knee amputation with placement of posterior Ortho Glass splint Review of Systems Review of Systems: ROS unobtainable: Yes unobtainable due to endotracheal tube, unobtainable due to medical condition and unobtainable due to mental status Exam Narrative: General: Patient intubated and sedated, in no acute distress HEENT:, pupils are equal and reactive from a sclera is clear Neck:? supple Respiratory:? Coarse breath sounds bilaterally, decreased at bases, adequate air entry, no wheezing Cardiac:? S1-S2 normal, regular rate and rhythm Abdomen:? Soft, nontender, nondistended, hypoactive bowel sounds Extremities:? Right BKA stump under the dressing. Left dorsalis pedis is dopplerable Neuro:? Patient is intubated, opens his eyes spontaneously and moves all 4 extremities spontaneously but does not regard examiner of follow commands, withdraws to pain in all extremities, Skin:? Patient has maceration of his perianal area, pressure ulcer on his buttocks. Psych:? Unable to assess at this time Objective Data Vital Signs Vital Signs: Vital Signs - 24 hr 03/09/24 10:03/09/24 10:03/09/24 10:54 Temperature 37.9 C H Pulse Rate 82 82 85 Respiratory Rate 13 Blood Pressure 113/44 L Pulse Oximetry 99 100 Oxygen Delivery Mechanical Ventilation Fraction of Inspired Oxygen 30 03/09/24 11:28 03/09/24 10:00 03/09/24 11:36 Temperature Pulse Rate 83 82 86 Respiratory Rate 12 12 16 Blood Pressure Pulse Oximetry Oxygen Delivery Fraction of Inspired Oxygen 03/09/24 10:03/09/24 12:00 03/09/24 12:00 Temperature Pulse Rate 82 86 Respiratory Rate 12 Blood Pressure Pulse Oximetry Oxygen Delivery Fraction of Inspired Oxygen 30 03/09/24 12:00 03/09/24 13:16 03/09/24 13:39 Temperature 37.7 C H 37.7 C H Pulse Rate 83 85 82 Respiratory Rate 11 L 12 Blood Pressure 118/56 L Pulse Oximetry 99 99 Oxygen Delivery Fraction of Inspired Oxygen 03/09/24 13:41 03/09/24 12:00 03/09/24 14:41 Temperature Pulse Rate 87 84 83 Respiratory Rate 12 11 L Blood Pressure Pulse Oximetry 95 Oxygen Delivery Mechanical Ventilation Fraction of Inspired Oxygen 30 03/09/24 14:48 03/09/24 14:00 03/09/24 14:53 Temperature 37.7 C H Pulse Rate 82 82 83 Respiratory Rate 16 16 16 Blood Pressure 124/54 L Pulse Oximetry 99 Oxygen Delivery Fraction of Inspired Oxygen 03/09/24 14:39 03/09/24 15:35 03/09/24 15:51 Temperature Pulse Rate 94 Respiratory Rate Blood Pressure Pulse Oximetry Oxygen Delivery Fraction of Inspired Oxygen 30 30 03/09/24 15:51 03/09/24 16:02 03/09/24 16:04 Temperature 37.7 C H 37.4 C Pulse Rate 84 84 84 Respiratory Rate 18 20 Blood Pressure 117/53 L 125/55 L Pulse Oximetry 100 99 Oxygen Delivery Fraction of Inspired Oxygen 03/09/24 16:52 03/09/24 18:03 03/09/24 16:00 Temperature Pulse Rate 85 82 85 Respiratory Rate 17 14 Blood Pressure Pulse Oximetry 100 Oxygen Delivery Mechanical Ventilation Fraction of Inspired Oxygen 30 03/09/24 18:00 03/09/24 19:11 03/09/24 19:26 Temperature Pulse Rate 83 85 87 Respiratory Rate 19 16 Blood Pressure Pulse Oximetry Oxygen Delivery Fraction of Inspired Oxygen 03/09/24 19:28 03/09/24 19:30 03/09/24 20:03 Temperature 37.9 C H Pulse Rate 87 89 Respiratory Rate 16 22 H Blood Pressure 134/60 Pulse Oximetry 100 100 Oxygen Delivery Mechanical Ventilation Fraction of Inspired Oxygen 30 30 03/09/24 20:42 03/09/24 20:47 03/09/24 20:50 Temperature Pulse Rate 91 92 93 Respiratory Rate 22 H 18 Blood Pressure Pulse Oximetry 100 Oxygen Delivery Mechanical Ventilation Fraction of Inspired Oxygen 30 03/09/24 20:44 03/09/24 22:20 03/09/24 20:00 Temperature Pulse Rate 96 86 Respiratory Rate 18 Blood Pressure 111/49 L Pulse Oximetry Oxygen Delivery Fraction of Inspired Oxygen 03/09/24 22:00 03/09/24 23:20 03/09/24 22:00 Temperature Pulse Rate 85 80 81 Respiratory Rate 18 Blood Pressure Pulse Oximetry 99 Oxygen Delivery Mechanical Ventilation Fraction of Inspired Oxygen 30 03/09/24 23:40 03/09/24 23:41 03/09/24 23:43 Temperature Pulse Rate 80 80 Respiratory Rate 18 Blood Pressure Pulse Oximetry 99 Oxygen Delivery Mechanical Ventilation Fraction of Inspired Oxygen 30 30 03/10/24 00:00 03/10/24 00:00 03/10/24 01:09 Temperature 38.0 C H Pulse Rate 87 82 83 Respiratory Rate 18 16 16 Blood Pressure 113/50 L Pulse Oximetry 99 Oxygen Delivery Fraction of Inspired Oxygen 03/10/24 01:09 03/10/24 02:10 03/10/24 02:00 Temperature Pulse Rate 83 80 Respiratory Rate 16 Blood Pressure 134/57 L Pulse Oximetry Oxygen Delivery Fraction of Inspired Oxygen 03/10/24 02:08 03/10/24 02:13 03/10/24 02:17 Temperature Pulse Rate 80 81 80 Respiratory Rate 16 16 Blood Pressure Pulse Oximetry 99 Oxygen Delivery Mechanical Ventilation Fraction of Inspired Oxygen 30 03/10/24 02:00 03/10/24 03:49 03/10/24 03:50 Temperature Pulse Rate 80 81 81 Respiratory Rate 16 16 Blood Pressure Pulse Oximetry 99 Oxygen Delivery Mechanical Ventilation Fraction of Inspired Oxygen 30 03/10/24 03:52 03/10/24 04:00 03/10/24 05:41 Temperature 37.7 C H Pulse Rate 85 85 Respiratory Rate 16 Blood Pressure 132/63 Pulse Oximetry 100 100 Oxygen Delivery Mechanical Ventilation Fraction of Inspired Oxygen 30 30 03/10/24 06:00 03/10/24 06:00 03/10/24 07:18 Temperature 37.4 C Pulse Rate 84 83 84 Respiratory Rate 16 Blood Pressure 146/63 H Pulse Oximetry 100 99 Oxygen Delivery Mechanical Ventilation Fraction of Inspired Oxygen 30 03/10/24 07:18 03/10/24 07:39 03/10/24 04:00 Temperature Pulse Rate 84 86 81 Respiratory Rate 16 16 16 Blood Pressure Pulse Oximetry Oxygen Delivery Fraction of Inspired Oxygen 03/10/24 06:00 03/10/24 08:00 03/10/24 08:34 Temperature 37.4 C Pulse Rate 84 94 91 Respiratory Rate 16 15 Blood Pressure 158/70 H Pulse Oximetry 100 100 Oxygen Delivery Mechanical Ventilation Fraction of Inspired Oxygen 30 03/10/24 08:45 Temperature Pulse Rate 89 Respiratory Rate Blood Pressure Pulse Oximetry Oxygen Delivery Fraction of Inspired Oxygen Intake/Output Intake/Output: Intake & Output 03/07/24 03/08/24 03/09/24 03/10/24 23:59 23:59 23:59 23:59 Intake Total 2417.4 3058.7 2981.7 639.2 Output Total 3450 2625 1700 650 Balance -1032.6 433.7 1281.7 -10.8 Meds/Results Medications: Active Medications Generic Name Dose Route Start Last Admin Trade Name Freq PRN Reason Stop Dose Admin Acetaminophen 500 mg 03/08/24 10:18 03/08/24 22:57 Acetaminophen 500 Mg Tablet FEED TUBE 500 mg Q6H PRN Administration Pain Rated 1-3 Albuterol/Ipratropium 3 ml 02/29/24 02:00 03/10/24 07:18 Ipratropium 0.5 Mg/Albuterol Sulfate 2.5 Mg Ampul.Neb 3 Ml INHALATION 3 ml Q6HRT JASON Administration Alteplase, Recombinant 2 mg 03/06/24 09:45 03/06/24 13:10 Alteplase 2 Mg Vial (Cathflo) IV PUSH 2 mg ONCE PRN Administration Line Occlusion Aspirin 81 mg 03/09/24 08:00 03/10/24 08:45 Aspirin 81 Mg Chewable Tablet FEED TUBE 81 mg DAILY@0800 JASON Administration Atorvastatin Calcium 80 mg 03/09/24 09:00 03/10/24 08:44 Atorvastatin 40 Mg Tablet FEED TUBE 80 mg DAILY JASON Administration Dextrose 12.5 gm 02/28/24 19:23 Dextrose 50% 25 Gm/50 Ml Syringe IV PUSH PRN PRN Hypoglycemia Protocol Glucagon 1 mg 02/28/24 19:23 Glucagon For Inj 1 Mg Vial IM PRN PRN Hypoglycemia Protocol Glucose 15 gm 03/08/24 10:19 Glucose Oral Gel 15 Gm Of Glucse In 37.5 Gm Tube FEED TUBE PRN PRN Hypoglycemia Protocol Heparin Sodium (Porcine) 5,000 units 03/03/24 14:00 03/10/24 05:23 Heparin Sodium 5,000 Units/Ml Vial SUB-Q 5,000 units Q8HR JASON Administration Hydralazine HCl 20 mg 03/08/24 10:06 Hydralazine Hcl 20 Mg/Ml Vial IV PUSH Q4HR PRN Hypertension Dextrose 1,000 mls @ 100 mls/hr 02/28/24 19:23 Dextrose 5% 1,000 Ml IVPB PRN PRN Hypoglycemia Protocol Meropenem 1 gm in 100 mls @ 200 mls/hr 02/28/24 22:00 03/10/24 05:30 IVPB 03/10/24 23:59 Infused Q8H JASON Infusion Dexmedetomidine HCl 400 mcg in 100 mls @ 4.895 mls/hr 03/09/24 08:25 03/10/24 06:00 Precedex 400 Mcg/100 Ml IV CONT 0.2 mcg/kg/hr .[id number] JASON 4.9 mls/hr Titration Protocol 0.2 MCG/KG/HR Vancomycin HCl 1,750 mg in 500 mls @ 250 mls/hr 03/10/24 05:00 03/10/24 07:40 Vancomycin 1,750 Mg/Ns 500 Ml IVPB 03/10/24 23:59 Infused Q18H JASON Infusion Insulin Aspart 3 - 6 units 03/01/24 00:00 03/10/24 05:24 Insulin Aspart (*Bkc) 100 Units/Ml SUB-Q Not Given Q6H JASON Protocol Insulin Glargine 45 units 03/09/24 09:00 03/10/24 09:00 Insulin Glargine (*Bkc) 100 Units/Ml SUB-Q 45 units DAILY JASON Administration Labetalol HCl 20 mg 03/08/24 10:06 03/08/24 16:48 Labetalol Hcl Inj 100 Mg/20 Ml Vial IV PUSH 20 mg Q4H PRN Administration SBP > 160 and HR> 60 -1st choice Losartan Potassium 50 mg 03/08/24 10:15 03/10/24 08:44 Losartan Potassium 50 Mg Tablet FEED TUBE 50 mg DAILY JASON Administration Metoclopramide HCl 10 mg 03/04/24 08:00 03/10/24 05:24 Metoclopramide Hcl 10 Mg/10 Ml Soln Udc FEED TUBE Not Given Q6HR [facility] Metoprolol Tartrate 50 mg 03/08/24 10:15 03/10/24 08:45 Metoprolol Tartrate 50 Mg Tab FEED TUBE 50 mg Q12HR JASON Administration Multi-Ingred Cream/Lotion/Oil/Oint 1 applic 03/07/24 21:00 03/10/24 08:45 Mineral Oil/White Petrolatum Ointment EACH EYE 1 applic Q12HR JASON Administration Multi-Ingred Cream/Lotion/Oil/Oint 1 applic 03/09/24 09:00 03/10/24 08:45 Mineral Oil/White Petrolatum Ointment EACH EYE 1 applic Q12HR JASON Administration Pantoprazole Sodium 40 mg 03/02/24 09:00 03/10/24 08:45 Pantoprazole Sodium Iv 40 Mg Vial IV PUSH 40 mg Q12HR JASON Administration Sodium Chloride 10 ml 02/29/24 06:00 03/10/24 07:57 Central Line Flush IV PUSH 10 ml Q8HR JASON Administration Sodium Chloride 20 ml 02/28/24 23:37 Central Line Flush IV PUSH PRN PRN after blood draws Radiology Results: ITS Impressions Lower Extremity CTA 02/28/24 14:54 IMPRESSION: 1. 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 2. Moderate stenosis of right popliteal artery. 3. Osteomyelitis involving first proximal and distal phalanges and head of first metatarsal. Head CT 02/29/24 05:55 Impression: No intracranial hemorrhage, mass, or acute infarct. Stable chronic encephalomalacia in the high left parietal lobe. Atrophy and chronic white matter changes, as above. Chest/Abdomen/Pelvis CTA 02/29/24 06:02 Impression: Extensive right upper lobe consolidation and more mild right middle lobe consolidation, consistent with pneumonia. Consider aspiration pneumonia. Moderate to large right pleural effusion with complete atelectasis of the right lower lobe. Moderate left pleural effusion with minimal left basilar atelectasis. Small pericardial effusion. No definite acute abnormality in the abdomen or pelvis. Chronic compression fractures, as above. Renal Ultrasound 03/03/24 15:45 IMPRESSION: 1. Normal kidneys without hydronephrosis. 2. Small amount of ascites in the abdomen and pelvis. Thoracentesis Ultrasound 03/08/24 09:35 IMPRESSION: 1. Successful ultrasound-guided thoracentesis yielding 550 mL of clear, yellow fluid. Chest X-Ray 03/10/24 06:47 Impression: Small right pleural effusion. Support tubes, as above. Labs Labs: Laboratory Results - last 24 hr 03/09/24 03/09/24 03/09/24 04:30 11:46 18:11 WBC RBC Hgb Hct MCV MCH MCHC RDW Plt Count MPV Puncture Site ABG pH ABG pCO2 ABG pO2 ABG PO2/FiO2 Ratio ABG HCO3 ABG O2 Saturation ABG O2 Content ABG Base Excess A-a Gradient Oxyhemoglobin Carboxyhemoglobin Methemoglobin Reduced Hemoglobin Total Hemoglobin O2 Delivery Device O2 Liters/Min Minute Volume Vent Rate Vent Mode FiO2 Tidal Volume PEEP Peak Inspir Pressure Pressure Support Sodium Potassium Chloride Carbon Dioxide Anion Gap BUN Creatinine Estim Creat Clear Calc Estimated GFR Glucose POC Capillary Glucose 181 H 191 H Calcium Magnesium Total Bilirubin AST ALT Alkaline Phosphatase Total Protein Albumin Triglycerides 93 Vancomycin Trough 03/10/24 03/10/24 03/10/24 00:04 03:57 05:23 WBC 7.0 RBC 2.79 L Hgb 7.7 L Hct 26.0 L MCV 93.2 MCH 27.6 MCHC 29.6 L RDW 16.7 H Plt Count 194 MPV 10.7 H Puncture Site Right radial ABG pH 7.483 H ABG pCO2 44.4 ABG pO2 101.7 H ABG PO2/FiO2 Ratio 3.39 ABG HCO3 32.5 H ABG O2 Saturation 98.0 ABG O2 Content 11.6 L ABG Base Excess 8.3 A-a Gradient 60.0 Oxyhemoglobin 96.5 Carboxyhemoglobin 1.4 Methemoglobin 0.3 Reduced Hemoglobin 1.8 Total Hemoglobin 8.4 L O2 Delivery Device Ventilator O2 Liters/Min Not Reportable Minute Volume Not Reportable Vent Rate 16 Vent Mode Cmv FiO2 30 Tidal Volume 380 PEEP 8 Peak Inspir Pressure Not Reportable Pressure Support Not Reportable Sodium 151 H Potassium 3.8 Chloride 113 H Carbon Dioxide 36 H Anion Gap 2 L BUN 34 H Creatinine 0.80 Estim Creat Clear Calc 90 Estimated GFR > 60 Glucose 145 H POC Capillary Glucose 173 H Calcium 7.9 L Magnesium 2.4 H Total Bilirubin 0.4 AST 77 H ALT 55 H Alkaline Phosphatase 90 Total Protein 6.0 L Albumin 2.4 L Triglycerides Vancomycin Trough 13.0 03/10/24 08:58 WBC RBC Hgb Hct MCV MCH MCHC RDW Plt Count MPV Puncture Site ABG pH ABG pCO2 ABG pO2 ABG PO2/FiO2 Ratio ABG HCO3 ABG O2 Saturation ABG O2 Content ABG Base Excess A-a Gradient Oxyhemoglobin Carboxyhemoglobin Methemoglobin Reduced Hemoglobin Total Hemoglobin O2 Delivery Device O2 Liters/Min Minute Volume Vent Rate Vent Mode FiO2 Tidal Volume PEEP Peak Inspir Pressure Pressure Support Sodium Potassium Chloride Carbon Dioxide Anion Gap BUN Creatinine Estim Creat Clear Calc Estimated GFR Glucose POC Capillary Glucose 172 H Calcium Magnesium Total Bilirubin AST ALT Alkaline Phosphatase Total Protein Albumin Triglycerides Vancomycin Trough Quality VTE Prophylaxis VTE prophylaxis: pharmacologic ordered
--- NOTE | 2024-03-10 10:17 | PM.IMPN ---
Progress Note: A&P Assessment and Plan (1) Cardiac arrest with pulseless electrical activity: Code(s): I46.9 - Cardiac arrest, cause unspecified Status: Acute (2) COPD (chronic obstructive pulmonary disease): Code(s): J44.9 - Chronic obstructive pulmonary disease, unspecified Status: Acute (3) CAD (coronary artery disease): Code(s): I25.10 - Atherosclerotic heart disease of platinum coronary artery without angina pectoris Status: Acute (4) Ischemic cardiomyopathy: Code(s): I25.5 - Ischemic cardiomyopathy Status: Acute (5) 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: Code(s): E11.9 - Type 2 diabetes mellitus without complications Status: Chronic (6) Electrolyte abnormality: Code(s): E87.8 - Other disorders of electrolyte and fluid balance, not elsewhere classified Status: Acute Plan (1) Acute respiratory failure with hypoxia: Code(s): J96.01 - Acute respiratory failure with hypoxia Status: Acute Assessment and Plan: Acute respiratory failure likely related to cardiac arrest, aspiration pneumonia, NSTEMI, hypoxia, septic shock Worsening likely secondary to ARDS versus pulmonary edema Chest CTA 02/28 Extensive right upper lobe consolidation and more mild right middle lobe consolidation, consistent with pneumonia. Consider aspiration pneumonia. Moderate to large right pleural effusion with complete atelectasis of the right lower lobe. Moderate left pleural effusion with minimal left basilar atelectasis. Small pericardial effusion. No definite acute abnormality in the abdomen or pelvis. Chronic compression fractures, as above on precedex for sedation. Sedation holiday today right thoracentesis with 1 L fluid removed March 07 left-sided thoracentesis March 08 Patient is on mechanical ventilation Management per stevedoring superintendent (2) Cardiac arrest with pulseless electrical activity: Code(s): I46.9 - Cardiac arrest, cause unspecified Status: Acute Assessment and Plan: Cardiac arrest, secondary to unknown etiology. Possible aspiration pneumonia, NSTEMI, hypoxia, septic shock, infection -see code blue sheet for the details 02/29/2024 echocardiogram Summary 1. Technically difficult study with limited views. 2. Left ventricular chamber dimension is normal. 3. Left ventricular systolic function is mildly reduced, estimated at 45-50%. The apex appears to be hypokinetic. 4. There is mildly increased left ventricular wall thickness. 5. The left ventricular diastolic function is grade I diastolic dysfunction. 6. Right ventricular systolic function is normal. 7. Left atrial chamber dimension is moderately enlarged. 8. There is mild to moderate tricuspid valve regurgitation. 9. There is small anterior pericardial effusion. Appreciate cardiology consultation, now patient currently intubated, vasopressors for blood pressure support was weaned off (3) Septic shock: Code(s): A41.9 - Sepsis, unspecified organism; R65.21 - Severe sepsis with septic shock Status: Acute Assessment and Plan: Resolved Patient in shock, likely related to the gangrene, aspiration pneumonia, status post cardiac arrest 02/28/2024: Blood cultures have been obtained and negative till now -lactic acid has normalized -patient has been adequately fluid-resuscitated, stress dose steroids and midodrine -blood pressures are now elevated requiring losartan and metoprolol Resolved now NSTEMI (non-ST elevated myocardial infarction): Code(s): I21.4 - Non-ST elevation (NSTEMI) myocardial infarction Status: Acute Assessment and Plan: Increasing troponins, -EKG showed sinus rhythm with T-wave changes in V1 to V5 -appreciate cardiology evaluation and recommendation -Continue aspirin and high-dose a statin -will hold Brilinta. Resumption per General surgery -continue beta-brayden, losartan -03/02 heparin infusion was discontinued after 48 hours for NSTEMI by cardiology Gangrene of right foot: Code(s): I96 - Gangrene, not elsewhere classified Status: Acute Assessment and Plan: CTA showed peripheral arterial disease with total occlusion of the right anterior and posterior tibial arteries and right peroneal artery with distal reconstitution of peroneal artery. This extensive gangrene of the right foot with gas seen on CT of the foot. General surgery spoke to the patient in the ER on the day of admission on 02/27 patient at that time agreed for below-knee amputation. Plan was to do a below-knee amputation on 02/29/2024 but patient had a cardiac arrest that night secondary to sepsis. Surgery at that time was deferred. Patient now is intubated sedated and unable to sign his consent.. Patient has no family and for many years at the [place] [facility] has had no visitor. He has 1 son which no one has been able to get hold off right several attempts. Considering patient has gangrene of the foot with no vascular supply leading to sepsis and if untreatable lead to his , Dr. Johns will proceed with amputation today, 03/05/2024. Dr. Collins and Dr. Johns has signed 2 physician consent considering patient's clearly expressed wishes prior to cardiac arrest at the time of admission, his current situation and inability to sign the consent form by himself at this time. status post right BKA. Postop management per General surgery continue meropenem and vancomycin which was started on 02/28/2024 complete 5 days of clindamycin Osteomyelitis of toe of right foot: Code(s): M86.9 - Osteomyelitis, unspecified Status: Chronic Assessment and Plan: As above Peripheral vascular disease: Code(s): I73.9 - Peripheral vascular disease, unspecified Status: Chronic Assessment and Plan: Patient has history of peripheral vascular disease, coronary artery disease -started on aspirin, patient will require Brilinta since he had a STEMI in 2020 but currently holding Brilinta due to surgery and bleeding Type 2 diabetes mellitus: Qualifiers: 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 complication status: with other specified complication 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 terminal computer operator insulin use: with terminal computer operator use Qualified Code(s): E11.69 - Type 2 diabetes mellitus with other specified complication; Z79.4 - assisted (current) use of insulin Code(s): E11.9 - Type 2 diabetes mellitus without complications Status: Acute Assessment and Plan: Currently on sliding scale insulin, Accu-Cheks Hemoglobin A1c this admission is 8.2 Continue Lantus Chronic obstructive pulmonary disease: Code(s): J44.9 - Chronic obstructive pulmonary disease, unspecified Status: Acute Assessment and Plan: Continue DuoNebs -continue Symbicort Electrolyte abnormality: Code(s): E87.8 - Other disorders of electrolyte and fluid balance, not elsewhere classified Status: Acute Assessment and Plan: Hypernatremia, Increase free water flush DVT prophylaxis: Heparin subQ Stress ulcer prophylaxis: Protonix Nutrition: Tube feeds at goal and tolerating, increase free water flushes, positive bowel movement Subjective Date/time seen: 03/10/24 10:17 Interval history: I saw and examined patient in ICU. Patient was intubated on mechanical ventilation. Patient is not on vasopressors, low-grade fever over the night. Blood pressure stable, Exam Narrative: General: Patient intubated and sedated, in no acute distress HEENT:, pupils are equal and reactive from a sclera is clear Neck:? supple Respiratory:? Coarse breath sounds bilaterally, decreased at bases, adequate air entry, no wheezing Cardiac:? S1-S2 normal, regular rate and rhythm Abdomen:? Soft, nontender, nondistended, hypoactive bowel sounds Extremities:? Right BKA stump under the dressing. Left dorsalis pedis is dopplerable Neuro:? Patient is intubated, opens his eyes spontaneously and moves all 4 extremities spontaneously but does not regard examiner of follow commands, withdraws to pain in all extremities, Skin:? Patient has maceration of his perianal area, pressure ulcer on his buttocks. Psych:? Unable to assess at this time Objective Data Vital Signs Vital Signs: Vital Signs - 24 hr 03/09/24 10:54 03/09/24 11:28 03/09/24 11:36 Temperature Pulse Rate 85 83 86 Respiratory Rate 12 16 Blood Pressure Pulse Oximetry 100 Oxygen Delivery Mechanical Ventilation Fraction of Inspired Oxygen 30 03/09/24 12:00 03/09/24 12:00 03/09/24 12:00 Temperature 99.9 F H Pulse Rate 86 83 Respiratory Rate 11 L Blood Pressure Pulse Oximetry 99 Oxygen Delivery Fraction of Inspired Oxygen 30 03/09/24 13:16 03/09/24 13:39 03/09/24 13:41 Temperature 99.9 F H Pulse Rate 85 82 87 Respiratory Rate 12 12 Blood Pressure 118/56 L Pulse Oximetry 99 Oxygen Delivery Fraction of Inspired Oxygen 03/09/24 12:00 03/09/24 14:41 03/09/24 14:48 Temperature Pulse Rate 84 83 82 Respiratory Rate 11 L 16 Blood Pressure Pulse Oximetry 95 Oxygen Delivery Mechanical Ventilation Fraction of Inspired Oxygen 30 03/09/24 14:00 03/09/24 14:53 03/09/24 14:39 Temperature 100 F H Pulse Rate 82 83 Respiratory Rate 16 16 Blood Pressure 124/54 L Pulse Oximetry 99 Oxygen Delivery Fraction of Inspired Oxygen 30 03/09/24 15:35 03/09/24 15:51 03/09/24 15:51 Temperature 99.9 F H Pulse Rate 94 84 Respiratory Rate 18 Blood Pressure 117/53 L Pulse Oximetry 100 Oxygen Delivery Fraction of Inspired Oxygen 30 03/09/24 16:02 03/09/24 16:04 03/09/24 16:52 Temperature 99.4 F Pulse Rate 84 84 85 Respiratory Rate 20 Blood Pressure 125/55 L Pulse Oximetry 99 100 Oxygen Delivery Mechanical Ventilation Fraction of Inspired Oxygen 30 03/09/24 18:03 03/09/24 16:00 03/09/24 18:00 Temperature Pulse Rate 82 85 83 Respiratory Rate 17 14 19 Blood Pressure Pulse Oximetry Oxygen Delivery Fraction of Inspired Oxygen 03/09/24 19:11 03/09/24 19:26 03/09/24 19:28 Temperature Pulse Rate 85 87 87 Respiratory Rate 16 16 Blood Pressure Pulse Oximetry 100 Oxygen Delivery Mechanical Ventilation Fraction of Inspired Oxygen 30 03/09/24 19:30 03/09/24 20:03 03/09/24 20:42 Temperature 100.2 F H Pulse Rate 89 91 Respiratory Rate 22 H 22 H Blood Pressure 134/60 Pulse Oximetry 100 Oxygen Delivery Fraction of Inspired Oxygen 30 03/09/24 20:47 03/09/24 20:50 03/09/24 20:44 Temperature Pulse Rate 92 93 96 Respiratory Rate 18 Blood Pressure Pulse Oximetry 100 Oxygen Delivery Mechanical Ventilation Fraction of Inspired Oxygen 30 03/09/24 22:20 03/09/24 20:00 03/09/24 22:00 Temperature Pulse Rate 86 85 Respiratory Rate 18 18 Blood Pressure 111/49 L Pulse Oximetry Oxygen Delivery Fraction of Inspired Oxygen 03/09/24 23:20 03/09/24 22:00 03/09/24 23:40 Temperature Pulse Rate 80 81 80 Respiratory Rate Blood Pressure Pulse Oximetry 99 Oxygen Delivery Mechanical Ventilation Fraction of Inspired Oxygen 30 03/09/24 23:41 03/09/24 23:43 03/10/24 00:00 Temperature 100.4 F H Pulse Rate 80 87 Respiratory Rate 18 18 Blood Pressure 113/50 L Pulse Oximetry 99 99 Oxygen Delivery Mechanical Ventilation Fraction of Inspired Oxygen 30 30 03/10/24 00:00 03/10/24 01:09 03/10/24 01:09 Temperature Pulse Rate 82 83 83 Respiratory Rate 16 16 16 Blood Pressure Pulse Oximetry Oxygen Delivery Fraction of Inspired Oxygen 03/10/24 02:10 03/10/24 02:00 03/10/24 02:08 Temperature Pulse Rate 80 80 Respiratory Rate 16 Blood Pressure 134/57 L Pulse Oximetry Oxygen Delivery Fraction of Inspired Oxygen 03/10/24 02:13 03/10/24 02:17 03/10/24 02:00 Temperature Pulse Rate 81 80 80 Respiratory Rate 16 16 Blood Pressure Pulse Oximetry 99 Oxygen Delivery Mechanical Ventilation Fraction of Inspired Oxygen 30 03/10/24 03:49 03/10/24 03:50 03/10/24 03:52 Temperature Pulse Rate 81 81 Respiratory Rate 16 Blood Pressure Pulse Oximetry 99 Oxygen Delivery Mechanical Ventilation Fraction of Inspired Oxygen 30 30 03/10/24 04:00 03/10/24 05:41 03/10/24 06:00 Temperature 100 F H Pulse Rate 85 85 84 Respiratory Rate 16 Blood Pressure 132/63 Pulse Oximetry 100 100 Oxygen Delivery Mechanical Ventilation Fraction of Inspired Oxygen 30 03/10/24 06:00 03/10/24 07:18 03/10/24 07:18 Temperature 99.4 F Pulse Rate 83 84 84 Respiratory Rate 16 16 Blood Pressure 146/63 H Pulse Oximetry 100 99 Oxygen Delivery Mechanical Ventilation Fraction of Inspired Oxygen 30 03/10/24 07:39 03/10/24 04:00 03/10/24 06:00 Temperature Pulse Rate 86 81 84 Respiratory Rate 16 16 16 Blood Pressure Pulse Oximetry Oxygen Delivery Fraction of Inspired Oxygen 03/10/24 08:00 03/10/24 08:34 03/10/24 08:45 Temperature 99.3 F Pulse Rate 94 91 89 Respiratory Rate 15 Blood Pressure 158/70 H Pulse Oximetry 100 100 Oxygen Delivery Mechanical Ventilation Fraction of Inspired Oxygen 30 03/10/24 08:00 Temperature Pulse Rate Respiratory Rate Blood Pressure Pulse Oximetry Oxygen Delivery Fraction of Inspired Oxygen 30 Intake/Output Intake/Output: Intake & Output 03/07/24 03/08/24 03/09/24 03/10/24 23:59 23:59 23:59 23:59 Intake Total 2417.4 3058.7 2981.7 639.2 Output Total 3450 2625 1700 650 Balance -1032.6 433.7 1281.7 -10.8 Meds/Results Medications: Active Medications Generic Name Dose Route Start Last Admin Trade Name Freq PRN Reason Stop Dose Admin Acetaminophen 500 mg 03/08/24 10:18 03/08/24 22:57 Acetaminophen 500 Mg Tablet FEED TUBE 500 mg Q6H PRN Administration Pain Rated 1-3 Albuterol/Ipratropium 3 ml 02/29/24 02:00 03/10/24 07:18 Ipratropium 0.5 Mg/Albuterol Sulfate 2.5 Mg Ampul.Neb 3 Ml INHALATION 3 ml Q6HRT JASON Administration Alteplase, Recombinant 2 mg 03/06/24 09:45 03/06/24 13:10 Alteplase 2 Mg Vial (Cathflo) IV PUSH 2 mg ONCE PRN Administration Line Occlusion Aspirin 81 mg 03/09/24 08:00 03/10/24 08:45 Aspirin 81 Mg Chewable Tablet FEED TUBE 81 mg DAILY@0800 JASON Administration Atorvastatin Calcium 80 mg 03/09/24 09:00 03/10/24 08:44 Atorvastatin 40 Mg Tablet FEED TUBE 80 mg DAILY JASON Administration Dextrose 12.5 gm 02/28/24 19:23 Dextrose 50% 25 Gm/50 Ml Syringe IV PUSH PRN PRN Hypoglycemia Protocol Glucagon 1 mg 02/28/24 19:23 Glucagon For Inj 1 Mg Vial IM PRN PRN Hypoglycemia Protocol Glucose 15 gm 03/08/24 10:19 Glucose Oral Gel 15 Gm Of Glucse In 37.5 Gm Tube FEED TUBE PRN PRN Hypoglycemia Protocol Heparin Sodium (Porcine) 5,000 units 03/03/24 14:00 03/10/24 05:23 Heparin Sodium 5,000 Units/Ml Vial SUB-Q 5,000 units Q8HR JASON Administration Hydralazine HCl 20 mg 03/08/24 10:06 Hydralazine Hcl 20 Mg/Ml Vial IV PUSH Q4HR PRN Hypertension Dextrose 1,000 mls @ 100 mls/hr 02/28/24 19:23 Dextrose 5% 1,000 Ml IVPB PRN PRN Hypoglycemia Protocol Meropenem 1 gm in 100 mls @ 200 mls/hr 02/28/24 22:00 03/10/24 05:30 IVPB 03/10/24 23:59 Infused Q8H JASON Infusion Dexmedetomidine HCl 400 mcg in 100 mls @ 4.895 mls/hr 03/09/24 08:25 03/10/24 06:00 Precedex 400 Mcg/100 Ml IV CONT 0.2 mcg/kg/hr .[id number] JASON 4.9 mls/hr Titration Protocol 0.2 MCG/KG/HR Vancomycin HCl 1,750 mg in 500 mls @ 250 mls/hr 03/10/24 05:00 03/10/24 07:40 Vancomycin 1,750 Mg/Ns 500 Ml IVPB 03/10/24 23:59 Infused Q18H JASON Infusion Insulin Aspart 3 - 6 units 03/01/24 00:00 03/10/24 05:24 Insulin Aspart (*Bkc) 100 Units/Ml SUB-Q Not Given Q6H [facility] Protocol Insulin Glargine 45 units 03/09/24 09:00 03/10/24 09:00 Insulin Glargine (*Bkc) 100 Units/Ml SUB-Q 45 units DAILY JASON Administration Labetalol HCl 20 mg 03/08/24 10:06 03/08/24 16:48 Labetalol Hcl Inj 100 Mg/20 Ml Vial IV PUSH 20 mg Q4H PRN Administration SBP > 160 and HR> 60 -1st choice Losartan Potassium 50 mg 03/08/24 10:15 03/10/24 08:44 Losartan Potassium 50 Mg Tablet FEED TUBE 50 mg DAILY JASON Administration Metoclopramide HCl 10 mg 03/04/24 08:00 03/10/24 05:24 Metoclopramide Hcl 10 Mg/10 Ml Soln Udc FEED TUBE Not Given Q6HR JASON Metoprolol Tartrate 50 mg 03/08/24 10:15 03/10/24 08:45 Metoprolol Tartrate 50 Mg Tab FEED TUBE 50 mg Q12HR JASON Administration Multi-Ingred Cream/Lotion/Oil/Oint 1 applic 03/07/24 21:00 03/10/24 08:45 Mineral Oil/White Petrolatum Ointment EACH EYE 1 applic Q12HR JASON Administration Multi-Ingred Cream/Lotion/Oil/Oint 1 applic 03/09/24 09:00 03/10/24 08:45 Mineral Oil/White Petrolatum Ointment EACH EYE 1 applic Q12HR JASON Administration Pantoprazole Sodium 40 mg 03/02/24 09:00 03/10/24 08:45 Pantoprazole Sodium Iv 40 Mg Vial IV PUSH 40 mg Q12HR JASON Administration Sodium Chloride 10 ml 02/29/24 06:00 03/10/24 07:57 Central Line Flush IV PUSH 10 ml Q8HR JASON Administration Sodium Chloride 20 ml 02/28/24 23:37 Central Line Flush IV PUSH PRN PRN after blood draws Radiology Results: ITS Impressions Lower Extremity CTA 02/28/24 14:54 IMPRESSION: 1. 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 2. Moderate stenosis of right popliteal artery. 3. Osteomyelitis involving first proximal and distal phalanges and head of first metatarsal. Head CT 02/29/24 05:55 Impression: No intracranial hemorrhage, mass, or acute infarct. Stable chronic encephalomalacia in the high left parietal lobe. Atrophy and chronic white matter changes, as above. Chest/Abdomen/Pelvis CTA 02/29/24 06:02 Impression: Extensive right upper lobe consolidation and more mild right middle lobe consolidation, consistent with pneumonia. Consider aspiration pneumonia. Moderate to large right pleural effusion with complete atelectasis of the right lower lobe. Moderate left pleural effusion with minimal left basilar atelectasis. Small pericardial effusion. No definite acute abnormality in the abdomen or pelvis. Chronic compression fractures, as above. Renal Ultrasound 03/03/24 15:45 IMPRESSION: 1. Normal kidneys without hydronephrosis. 2. Small amount of ascites in the abdomen and pelvis. Thoracentesis Ultrasound 03/08/24 09:35 IMPRESSION: 1. Successful ultrasound-guided thoracentesis yielding 550 mL of clear, yellow fluid. Chest X-Ray 03/10/24 06:47 Impression: Small right pleural effusion. Support tubes, as above. Labs Labs: Laboratory Results - last 24 hr 03/09/24 03/09/24 03/09/24 04:30 11:46 18:11 WBC RBC Hgb Hct MCV MCH MCHC RDW Plt Count MPV Puncture Site ABG pH ABG pCO2 ABG pO2 ABG PO2/FiO2 Ratio ABG HCO3 ABG O2 Saturation ABG O2 Content ABG Base Excess A-a Gradient Oxyhemoglobin Carboxyhemoglobin Methemoglobin Reduced Hemoglobin Total Hemoglobin O2 Delivery Device O2 Liters/Min Minute Volume Vent Rate Vent Mode FiO2 Tidal Volume PEEP Peak Inspir Pressure Pressure Support Sodium Potassium Chloride Carbon Dioxide Anion Gap BUN Creatinine Estim Creat Clear Calc Estimated GFR Glucose POC Capillary Glucose 181 H 191 H Calcium Magnesium Total Bilirubin AST ALT Alkaline Phosphatase Total Protein Albumin Triglycerides 93 Vancomycin Trough 03/10/24 03/10/24 03/10/24 00:04 03:57 05:23 WBC 7.0 RBC 2.79 L Hgb 7.7 L Hct 26.0 L MCV 93.2 MCH 27.6 MCHC 29.6 L RDW 16.7 H Plt Count 194 MPV 10.7 H Puncture Site Right radial ABG pH 7.483 H ABG pCO2 44.4 ABG pO2 101.7 H ABG PO2/FiO2 Ratio 3.39 ABG HCO3 32.5 H ABG O2 Saturation 98.0 ABG O2 Content 11.6 L ABG Base Excess 8.3 A-a Gradient 60.0 Oxyhemoglobin 96.5 Carboxyhemoglobin 1.4 Methemoglobin 0.3 Reduced Hemoglobin 1.8 Total Hemoglobin 8.4 L O2 Delivery Device Ventilator O2 Liters/Min Not Reportable Minute Volume Not Reportable Vent Rate 16 Vent Mode Cmv FiO2 30 Tidal Volume 380 PEEP 8 Peak Inspir Pressure Not Reportable Pressure Support Not Reportable Sodium 151 H Potassium 3.8 Chloride 113 H Carbon Dioxide 36 H Anion Gap 2 L BUN 34 H Creatinine 0.80 Estim Creat Clear Calc 90 Estimated GFR > 60 Glucose 145 H POC Capillary Glucose 173 H Calcium 7.9 L Magnesium 2.4 H Total Bilirubin 0.4 AST 77 H ALT 55 H Alkaline Phosphatase 90 Total Protein 6.0 L Albumin 2.4 L Triglycerides Vancomycin Trough 13.0 03/10/24 08:58 WBC RBC Hgb Hct MCV MCH MCHC RDW Plt Count MPV Puncture Site ABG pH ABG pCO2 ABG pO2 ABG PO2/FiO2 Ratio ABG HCO3 ABG O2 Saturation ABG O2 Content ABG Base Excess A-a Gradient Oxyhemoglobin Carboxyhemoglobin Methemoglobin Reduced Hemoglobin Total Hemoglobin O2 Delivery Device O2 Liters/Min Minute Volume Vent Rate Vent Mode FiO2 Tidal Volume PEEP Peak Inspir Pressure Pressure Support Sodium Potassium Chloride Carbon Dioxide Anion Gap BUN Creatinine Estim Creat Clear Calc Estimated GFR Glucose POC Capillary Glucose 172 H Calcium Magnesium Total Bilirubin AST ALT Alkaline Phosphatase Total Protein Albumin Triglycerides Vancomycin Trough
--- NOTE | 2024-03-10 10:36 | PCFNICU ---
ICU Rounding Note: Pt current nutrition is Glucerna 1.2 @ goal rate 60 ml/h. Minh BID for additional 80 kcal and 2.5 g protein each to support wound healing. Prsource TF BID for additional 80 kcal and 20 g protein each to meet estimated protein energy needs. (Meeting about 85% EER and 88% estimated protein needs) Increased flushes to 250 ml QID because of high sodium Nutrition recommendation: No new nutrition recommendations and continue with current nutrition care plan. Agree with orders Last recorded weight is 97.1 kg. Bowel M otility: +1 BM 03/10/24 Labs Reviewed: Hgb 7.7, Hct 26, Alb 2.0, Na 151, BUN 34, Glu 145, Mag 2.4 Meds Noted: Novolog, Lantus, Reglan, fentanyl Skin: Stage II pressure injury to buttocks, R BKA 03/06/24 Additional Notes: Flushes were increased due to sodium 151. Tolerating TF. Following daily in ICU rounds. Will monitor weight, labs, skin, tube feedings, meds, every Sunday and Sunday. .
[2024-03-10] MEDS: METOCLOPRAMIDE HCL 10 MG/10 ML SOLN UDC FEED TUBE ×2 (11:11→17:54)
[2024-03-10 11:15] LABS: Glucose Point of Care 178 mg/dl (65-105)
--- NOTE | 2024-03-10 15:19 | PC.NURSE ---
patient starting to follow commands, patient squeezed hands when prompted. But during second attempt patient did not follow.
[2024-03-10 17:53] LABS: Glucose Point of Care 141 mg/dl (65-105)
--- NOTE | 2024-03-10 18:05 | PM.PNGS ---
Progress Note: A&P Assessment and Plan (1) Acute respiratory failure with hypoxia: Code(s): J96.01 - Acute respiratory failure with hypoxia Status: Acute Assessment and Plan: Remains on ventilator, cognitive abilities are questionable (2) Chronic obstructive pulmonary disease: Code(s): J44.9 - Chronic obstructive pulmonary disease, unspecified Status: Chronic (3) Amputation of right lower extremity below knee: Code(s): S88.111A - Complete traumatic amputation at level between knee and ankle, right lower leg, initial encounter Status: Acute Assessment and Plan: Postop day 5 right below-knee amputation. Probably change his dressing tomorrow or Sunday. Subjective Subjective Date/Time Seen: 03/10/24 18:05 Post Op day: 5 Interval history: Still on ventilator with no responsiveness at the time I saw him. Apparently on stopping his sedation, there are concerns about about him displaying purposeful movement Review of Systems Review of Systems: ROS unobtainable: Yes unobtainable due to endotracheal tube Exam Const: General: patient obtunded Extrem: Right lower extremity: lower leg (Posterior splint and dressing dry and intact, slight bend to right knee.) Objective Data Vital Signs Vital Signs: Vital Signs - 24 hr 03/09/24 19:11 03/09/24 19:26 03/09/24 19:28 Temperature Pulse Rate 85 87 87 Respiratory Rate 16 16 Blood Pressure Pulse Oximetry 100 Oxygen Delivery Mechanical Ventilation Fraction of Inspired Oxygen 30 03/09/24 19:30 03/09/24 20:03 03/09/24 20:42 Temperature 37.9 C H Pulse Rate 89 91 Respiratory Rate 22 H 22 H Blood Pressure 134/60 Pulse Oximetry 100 Oxygen Delivery Fraction of Inspired Oxygen 30 03/09/24 20:47 03/09/24 20:50 03/09/24 20:44 Temperature Pulse Rate 92 93 96 Respiratory Rate 18 Blood Pressure Pulse Oximetry 100 Oxygen Delivery Mechanical Ventilation Fraction of Inspired Oxygen 30 03/09/24 22:20 03/09/24 20:00 03/09/24 22:00 Temperature Pulse Rate 86 85 Respiratory Rate 18 18 Blood Pressure 111/49 L Pulse Oximetry Oxygen Delivery Fraction of Inspired Oxygen 03/09/24 23:20 03/09/24 22:00 03/09/24 23:40 Temperature Pulse Rate 80 81 80 Respiratory Rate Blood Pressure Pulse Oximetry 99 Oxygen Delivery Mechanical Ventilation Fraction of Inspired Oxygen 30 03/09/24 23:41 03/09/24 23:43 03/10/24 00:00 Temperature 38.0 C H Pulse Rate 80 87 Respiratory Rate 18 18 Blood Pressure 113/50 L Pulse Oximetry 99 99 Oxygen Delivery Mechanical Ventilation Fraction of Inspired Oxygen 30 30 03/10/24 00:00 03/10/24 01:09 03/10/24 01:09 Temperature Pulse Rate 82 83 83 Respiratory Rate 16 16 16 Blood Pressure Pulse Oximetry Oxygen Delivery Fraction of Inspired Oxygen 03/10/24 02:10 03/10/24 02:00 03/10/24 02:08 Temperature Pulse Rate 80 80 Respiratory Rate 16 Blood Pressure 134/57 L Pulse Oximetry Oxygen Delivery Fraction of Inspired Oxygen 03/10/24 02:13 03/10/24 02:17 03/10/24 02:00 Temperature Pulse Rate 81 80 80 Respiratory Rate 16 16 Blood Pressure Pulse Oximetry 99 Oxygen Delivery Mechanical Ventilation Fraction of Inspired Oxygen 30 03/10/24 03:49 03/10/24 03:50 03/10/24 03:52 Temperature Pulse Rate 81 81 Respiratory Rate 16 Blood Pressure Pulse Oximetry 99 Oxygen Delivery Mechanical Ventilation Fraction of Inspired Oxygen 30 30 03/10/24 04:00 03/10/24 05:41 03/10/24 06:00 Temperature 37.7 C H Pulse Rate 85 85 84 Respiratory Rate 16 Blood Pressure 132/63 Pulse Oximetry 100 100 Oxygen Delivery Mechanical Ventilation Fraction of Inspired Oxygen 30 03/10/24 06:00 03/10/24 07:18 03/10/24 07:18 Temperature 37.4 C Pulse Rate 83 84 84 Respiratory Rate 16 16 Blood Pressure 146/63 H Pulse Oximetry 100 99 Oxygen Delivery Mechanical Ventilation Fraction of Inspired Oxygen 30 03/10/24 07:39 03/10/24 04:00 03/10/24 06:00 Temperature Pulse Rate 86 81 84 Respiratory Rate 16 16 16 Blood Pressure Pulse Oximetry Oxygen Delivery Fraction of Inspired Oxygen 03/10/24 08:00 03/10/24 08:34 03/10/24 08:45 Temperature 37.4 C Pulse Rate 94 91 89 Respiratory Rate 15 Blood Pressure 158/70 H Pulse Oximetry 100 100 Oxygen Delivery Mechanical Ventilation Fraction of Inspired Oxygen 30 03/10/24 08:00 03/10/24 10:00 03/10/24 08:00 Temperature 37.6 C Pulse Rate 76 76 Respiratory Rate 14 Blood Pressure 112/53 L Pulse Oximetry 99 Oxygen Delivery Fraction of Inspired Oxygen 30 03/10/24 10:00 03/10/24 10:48 03/10/24 08:00 Temperature Pulse Rate 77 77 94 Respiratory Rate 13 15 Blood Pressure Pulse Oximetry Oxygen Delivery Fraction of Inspired Oxygen 03/10/24 10:00 03/10/24 10:43 03/10/24 11:31 Temperature Pulse Rate 78 77 77 Respiratory Rate 17 Blood Pressure Pulse Oximetry 99 Oxygen Delivery Mechanical Ventilation Fraction of Inspired Oxygen 30 03/10/24 11:39 03/10/24 11:41 03/10/24 13:21 Temperature 37.8 C H Pulse Rate 83 76 Respiratory Rate 13 Blood Pressure 123/55 L Pulse Oximetry 100 Oxygen Delivery Fraction of Inspired Oxygen 30 03/10/24 13:23 03/10/24 13:36 03/10/24 13:36 Temperature 37.9 C H Pulse Rate 76 74 74 Respiratory Rate 23 H 13 Blood Pressure 108/46 L Pulse Oximetry 100 100 Oxygen Delivery Mechanical Ventilation Fraction of Inspired Oxygen 30 03/10/24 13:47 03/10/24 15:37 03/10/24 15:48 Temperature Pulse Rate 78 90 Respiratory Rate 13 Blood Pressure Pulse Oximetry Oxygen Delivery Fraction of Inspired Oxygen 30 03/10/24 15:48 03/10/24 16:21 03/10/24 12:00 Temperature 37.8 C H Pulse Rate 90 79 79 Respiratory Rate 14 14 23 H Blood Pressure 145/68 H Pulse Oximetry 100 Oxygen Delivery Fraction of Inspired Oxygen 03/10/24 14:00 03/10/24 15:00 03/10/24 16:00 Temperature Pulse Rate 80 89 88 Respiratory Rate 18 16 13 Blood Pressure Pulse Oximetry Oxygen Delivery Fraction of Inspired Oxygen 03/10/24 16:29 03/10/24 17:15 03/10/24 17:17 Temperature 37.8 C H Pulse Rate 81 78 79 Respiratory Rate 11 L Blood Pressure 119/52 L Pulse Oximetry 100 100 Oxygen Delivery Mechanical Ventilation Fraction of Inspired Oxygen 30 Intake/Output Intake/Output: Intake & Output 03/07/24 03/08/24 03/09/24 03/10/24 23:59 23:59 23:59 23:59 Intake Total 2417.4 3058.7 2981.7 794.0 Output Total 3450 2625 1700 650 Balance -1032.6 433.7 1281.7 144.0 Meds/Results Medications: Active Medications Generic Name Dose Route Start Last Admin Trade Name Freq PRN Reason Stop Dose Admin Acetaminophen 500 mg 03/08/24 10:18 03/08/24 22:57 Acetaminophen 500 Mg Tablet FEED TUBE 500 mg Q6H PRN Administration Pain Rated 1-3 Albuterol/Ipratropium 3 ml 02/29/24 02:00 03/10/24 13:36 Ipratropium 0.5 Mg/Albuterol Sulfate 2.5 Mg Ampul.Neb 3 Ml INHALATION 3 ml Q6HRT JASON Administration Alteplase, Recombinant 2 mg 03/06/24 09:45 03/06/24 13:10 Alteplase 2 Mg Vial (Cathflo) IV PUSH 2 mg ONCE PRN Administration Line Occlusion Aspirin 81 mg 03/09/24 08:00 03/10/24 08:45 Aspirin 81 Mg Chewable Tablet FEED TUBE 81 mg DAILY@0800 JASON Administration Atorvastatin Calcium 80 mg 03/09/24 09:00 03/10/24 08:44 Atorvastatin 40 Mg Tablet FEED TUBE 80 mg DAILY JASON Administration Dextrose 12.5 gm 02/28/24 19:23 Dextrose 50% 25 Gm/50 Ml Syringe IV PUSH PRN PRN Hypoglycemia Protocol Glucagon 1 mg 02/28/24 19:23 Glucagon For Inj 1 Mg Vial IM PRN PRN Hypoglycemia Protocol Glucose 15 gm 03/08/24 10:19 Glucose Oral Gel 15 Gm Of Glucse In 37.5 Gm Tube FEED TUBE PRN PRN Hypoglycemia Protocol Heparin Sodium (Porcine) 5,000 units 03/03/24 14:00 03/10/24 13:54 Heparin Sodium 5,000 Units/Ml Vial SUB-Q 5,000 units Q8HR JASON Administration Hydralazine HCl 20 mg 03/08/24 10:06 Hydralazine Hcl 20 Mg/Ml Vial IV PUSH Q4HR PRN Hypertension Dextrose 1,000 mls @ 100 mls/hr 02/28/24 19:23 Dextrose 5% 1,000 Ml IVPB PRN PRN Hypoglycemia Protocol Meropenem 1 gm in 100 mls @ 200 mls/hr 02/28/24 22:00 03/10/24 14:53 IVPB 10/28/24 23:59 Infused Q8H JASON Infusion Dexmedetomidine HCl 400 mcg in 100 mls @ 4.895 mls/hr 03/09/24 08:25 03/10/24 16:21 Precedex 400 Mcg/100 Ml IV CONT 0.4 mcg/kg/hr .[id number] JASON 9.79 mls/hr Titration Protocol 0.2 MCG/KG/HR Vancomycin HCl 1,750 mg in 500 mls @ 250 mls/hr 03/10/24 05:00 03/10/24 07:40 Vancomycin 1,750 Mg/Ns 500 Ml IVPB 03/10/24 23:59 Infused Q18H JASON Infusion Insulin Aspart 3 - 6 units 03/01/24 00:00 03/10/24 17:54 Insulin Aspart (*Bkc) 100 Units/Ml SUB-Q Not Given Q6H JASON Protocol Insulin Glargine 45 units 03/09/24 09:00 03/10/24 09:00 Insulin Glargine (*Bkc) 100 Units/Ml SUB-Q 45 units DAILY JASON Administration Labetalol HCl 20 mg 03/08/24 10:06 03/08/24 16:48 Labetalol Hcl Inj 100 Mg/20 Ml Vial IV PUSH 20 mg Q4H PRN Administration SBP > 160 and HR> 60 -1st choice Losartan Potassium 50 mg 03/08/24 10:15 03/10/24 08:44 Losartan Potassium 50 Mg Tablet FEED TUBE 50 mg DAILY JASON Administration Metoclopramide HCl 10 mg 03/04/24 08:00 03/10/24 17:54 Metoclopramide Hcl 10 Mg/10 Ml Soln Udc FEED TUBE 10 mg Q6HR JASON Administration Metoprolol Tartrate 50 mg 03/08/24 10:15 03/10/24 08:45 Metoprolol Tartrate 50 Mg Tab FEED TUBE 50 mg Q12HR JASON Administration Multi-Ingred Cream/Lotion/Oil/Oint 1 applic 03/07/24 21:00 03/10/24 08:45 Mineral Oil/White Petrolatum Ointment EACH EYE 1 applic Q12HR JASON Administration Multi-Ingred Cream/Lotion/Oil/Oint 1 applic 03/09/24 09:00 03/10/24 08:45 Mineral Oil/White Petrolatum Ointment EACH EYE 1 applic Q12HR JASON Administration Pantoprazole Sodium 40 mg 03/02/24 09:00 03/10/24 08:45 Pantoprazole Sodium Iv 40 Mg Vial IV PUSH 40 mg Q12HR JASON Administration Sodium Chloride 10 ml 02/29/24 06:00 03/10/24 13:54 Central Line Flush IV PUSH 10 ml Q8HR JASON Administration Sodium Chloride 20 ml 02/28/24 23:37 Central Line Flush IV PUSH PRN PRN after blood draws Radiology Results: ITS Impressions Lower Extremity CTA 02/28/24 14:54 IMPRESSION: 1. 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 2. Moderate stenosis of right popliteal artery. 3. Osteomyelitis involving first proximal and distal phalanges and head of first metatarsal. Head CT 02/29/24 05:55 Impression: No intracranial hemorrhage, mass, or acute infarct. Stable chronic encephalomalacia in the high left parietal lobe. Atrophy and chronic white matter changes, as above. Chest/Abdomen/Pelvis CTA 02/29/24 06:02 Impression: Extensive right upper lobe consolidation and more mild right middle lobe consolidation, consistent with pneumonia. Consider aspiration pneumonia. Moderate to large right pleural effusion with complete atelectasis of the right lower lobe. Moderate left pleural effusion with minimal left basilar atelectasis. Small pericardial effusion. No definite acute abnormality in the abdomen or pelvis. Chronic compression fractures, as above. Renal Ultrasound 03/03/24 15:45 IMPRESSION: 1. Normal kidneys without hydronephrosis. 2. Small amount of ascites in the abdomen and pelvis. Thoracentesis Ultrasound 03/08/24 09:35 IMPRESSION: 1. Successful ultrasound-guided thoracentesis yielding 550 mL of clear, yellow fluid. Chest X-Ray 03/10/24 06:47 Impression: Small right pleural effusion. Support tubes, as above. Labs Labs: Laboratory Results - last 24 hr 03/09/24 03/10/24 03/10/24 18:11 00:04 03:57 WBC 7.0 RBC 2.79 L Hgb 7.7 L Hct 26.0 L MCV 93.2 MCH 27.6 MCHC 29.6 L RDW 16.7 H Plt Count 194 MPV 10.7 H Puncture Site ABG pH ABG pCO2 ABG pO2 ABG PO2/FiO2 Ratio ABG HCO3 ABG O2 Saturation ABG O2 Content ABG Base Excess A-a Gradient Oxyhemoglobin Carboxyhemoglobin Methemoglobin Reduced Hemoglobin Total Hemoglobin O2 Delivery Device O2 Liters/Min Minute Volume Vent Rate Vent Mode FiO2 Tidal Volume PEEP Peak Inspir Pressure Pressure Support Sodium 151 H Potassium 3.8 Chloride 113 H Carbon Dioxide 36 H Anion Gap 2 L BUN 34 H Creatinine 0.80 Estim Creat Clear Calc 90 Estimated GFR > 60 Glucose 145 H POC Capillary Glucose 191 H 173 H Calcium 7.9 L Magnesium 2.4 H Total Bilirubin 0.4 AST 77 H ALT 55 H Alkaline Phosphatase 90 Total Protein 6.0 L Albumin 2.4 L Vancomycin Trough 13.0 03/10/24 03/10/24 03/10/24 05:23 08:58 11:10 WBC RBC Hgb Hct MCV MCH MCHC RDW Plt Count MPV Puncture Site Right radial ABG pH 7.483 H ABG pCO2 44.4 ABG pO2 101.7 H ABG PO2/FiO2 Ratio 3.39 ABG HCO3 32.5 H ABG O2 Saturation 98.0 ABG O2 Content 11.6 L ABG Base Excess 8.3 A-a Gradient 60.0 Oxyhemoglobin 96.5 Carboxyhemoglobin 1.4 Methemoglobin 0.3 Reduced Hemoglobin 1.8 Total Hemoglobin 8.4 L O2 Delivery Device Ventilator O2 Liters/Min Not Reportable Minute Volume Not Reportable Vent Rate 16 Vent Mode Cmv FiO2 30 Tidal Volume 380 PEEP 8 Peak Inspir Pressure Not Reportable Pressure Support Not Reportable Sodium Potassium Chloride Carbon Dioxide Anion Gap BUN Creatinine Estim Creat Clear Calc Estimated GFR Glucose POC Capillary Glucose 172 H 178 H Calcium Magnesium Total Bilirubin AST ALT Alkaline Phosphatase Total Protein Albumin Vancomycin Trough 03/10/24 17:51 WBC RBC Hgb Hct MCV MCH MCHC RDW Plt Count MPV Puncture Site ABG pH ABG pCO2 ABG pO2 ABG PO2/FiO2 Ratio ABG HCO3 ABG O2 Saturation ABG O2 Content ABG Base Excess A-a Gradient Oxyhemoglobin Carboxyhemoglobin Methemoglobin Reduced Hemoglobin Total Hemoglobin O2 Delivery Device O2 Liters/Min Minute Volume Vent Rate Vent Mode FiO2 Tidal Volume PEEP Peak Inspir Pressure Pressure Support Sodium Potassium Chloride Carbon Dioxide Anion Gap BUN Creatinine Estim Creat Clear Calc Estimated GFR Glucose POC Capillary Glucose 141 H Calcium Magnesium Total Bilirubin AST ALT Alkaline Phosphatase Total Protein Albumin Vancomycin Trough
[2024-03-10] MEDS: dexmedeTOMIDine 400 MCG/100 ML 400 MCG/100 ML BAG 9.79 MCG IV CONT (20:04)
[2024-03-11] VITALS (43 sets, daily range): BP systolic 113–153; BP diastolic 55–73; PULSE 73–93; RESP 10–26; TEMP 37.2–37.8; O2SAT 97–100
[2024-03-11 00:10] LABS: Glucose Point of Care 148 mg/dl (65-105)
[2024-03-11] MEDS: IPRATROPIUM 0.5 MG/ALBUTEROL SULFATE 2.5 MG AMPUL.NEB 3 ML INHALATION ×4 (02:40→19:18)
[2024-03-11] MEDS: dexmedeTOMIDine 400 MCG/100 ML 400 MCG/100 ML BAG 7.34 MCG IV CONT (02:49)
[2024-03-11 04:57] LABS: Alveolar/Arterial O2 Gradient 78.8 mmHg; Carboxyhemoglobin 1.1 % THb (0-2.0); Fractional Inspired Oxygen 30 %; HCO3 ABG 29.9 mEq/l (22.0-26.0); Methemoglobin ABG 0.3 %THb (0-1.5); Oxygen Content ABG 11.1 %vol (16.0-22.0); Oxygen Saturation ABG 97.3 % (95.0-100.0); Oxyhemoglobin 95.9 % THb (90.0-100.0); PCO2 ABG 40.2 mmHg (35.0-45.0); PO2 ABG 87.9 mmHg (80.0-100.0); PO2 FiO2 Ratio Arterial Blood 2.93 %; Reduced Hemoglobin 2.7 %THb (0-5.0); Total Hemoglobin 8.1 g/dL (12.0-18.0); pH ABG 7.489 (7.350-7.450)
[2024-03-11 04:58] LABS: Site Drawn RIGHT RADIAL
[2024-03-11 04:59] LABS: Device VENTILATOR; Modified Allen's Test Pass
[2024-03-11 05:00] LABS: Arterial Blood Gas PEEP 8 cmH2O; Arterial Blood Gas Vent Mode SPONTANEOUS; Arterial Blood Gas Ventilator rate 0 /MIN; Peak Inspiratory Pressure 10 cmH2O
[2024-03-11] MEDS: METOCLOPRAMIDE HCL 10 MG/10 ML SOLN UDC FEED TUBE ×2 (05:52)
[2024-03-11] MEDS: HEPARIN SODIUM 5,000 UNITS/ML VIAL 5000 UNITS SUB-Q ×3 (05:52→21:22)
[2024-03-11] MEDS: CENTRAL LINE FLUSH 10 ML IV PUSH ×3 (05:53→21:23)
[2024-03-11 05:58] LABS: Hematocrit 25.8 % (42.0-52.0); Hemoglobin 7.8 g/dL (14.0-18.0); Mean Corpuscular HGB Conc 30.2 g/dl (32-36); Mean Corpuscular Hemoglobin 27.8 pg (26-34); Mean Corpuscular Volume 91.8 fl (80-100); Mean Platelet Volume 10.8 fl (7.4-10.4); Platelet Count Result 169 k/mm3 (150-375); Red Blood Count 2.81 M/mm3 (4.6-6.20); Red Cell Distribution Width 16.5 % (11.5-14.5); White Blood Count 7.8 K/mm3 (4.5-10.0)
[2024-03-11 06:07] LABS: Alanine Aminotransferase 106 U/L (6-50); Albumin Level 2.5 g/dL (3.5-5.1); Alkaline Phosphatase 111 U/L (38-126); Anion Gap 5 mmol/L (4-12); Aspartate Amino Transferase 143 U/L (17-59); Bilirubin,Total 0.4 mg/dL (0.2-1.3); Blood Urea Nitrogen 34 mg/dL (9-20); Calcium 7.9 mg/dL (8.4-10.2); Carbon Dioxide 31 mmol/L (22-30); Chloride 111 mmol/L (98-107); Estimated CRCL calculation 91 ml/min; Estimated Glomerular Filt Rate > 60; Glucose 220 mg/dL (65-110); Magnesium 2.4 mg/dL (1.6-2.3); Potassium 3.7 mmol/L (3.4-5.0); Sodium 147 mmol/L (137-145)
[2024-03-11] MEDS: INSULIN ASPART (*BKC) 100 UNITS/ML SUB-Q ×2 (06:15→11:41)
[2024-03-11 08:08] LABS: Triglycerides 110 mg/dL (<150)
[2024-03-11] MEDS: METOPROLOL TARTRATE 50 MG TAB FEED TUBE ×2 (08:13→21:22)
[2024-03-11] MEDS: ASPIRIN 81 MG CHEWABLE TABLET FEED TUBE (08:13)
[2024-03-11] MEDS: PANTOPRAZOLE SODIUM IV 40 MG VIAL IV PUSH ×2 (08:13→21:22)
[2024-03-11] MEDS: LOSARTAN POTASSIUM 50 MG TABLET FEED TUBE (08:13)
[2024-03-11] MEDS: ATORVASTATIN 40 MG TABLET 80 MG FEED TUBE (08:13)
[2024-03-11] MEDS: INSULIN GLARGINE (*BKC) 100 UNITS/ML 45 UNITS SUB-Q (08:14)
[2024-03-11] MEDS: MINERAL OIL/WHITE PETROLATUM OINTMENT 1 APPLIC EACH EYE ×2 (08:24→21:23)
[2024-03-11] MEDS: FUROSEMIDE INJ 40 MG/4 ML VIAL IV PUSH (09:02)
--- NOTE | 2024-03-11 11:23 | WPDINTPN ---
Progress Note: A&P Assessment and Plan (1) Acute respiratory failure with hypoxia: Code(s): J96.01 - Acute respiratory failure with hypoxia Status: Acute Assessment and Plan: Acute respiratory failure likely related to cardiac arrest, aspiration pneumonia, NSTEMI, hypoxia, septic shock Worsening likely secondary to ARDS versus pulmonary edema -chest x-ray reviewed -continue bronchodilators -on precedex for sedation. Sedation holiday today -03/07 right thoracentesis with 1 L fluid removed -03/08 patient is getting left-sided thoracentesis today -03/11: patient was in pressure support ventilation 02/18, with decrease tidal volumes in the upper 200s. place patient back on CMV, I have asked the bedside RN to decrease the Precedex infusion once patient is more awake will place back on spontaneous breathing trials 02/28 Chest CTA: Extensive right upper lobe consolidation and more mild right middle lobe consolidation, consistent with pneumonia. Consider aspiration pneumonia.Moderate to large right pleural effusion with complete atelectasis of the right lower lobe. Moderate left pleural effusion with minimal left basilar atelectasis. Small pericardial effusion. No definite acute abnormality in the abdomen or pelvis. Chronic compression fractures, as above (2) Cardiac arrest with pulseless electrical activity: Code(s): I46.9 - Cardiac arrest, cause unspecified Status: Acute Assessment and Plan: Cardiac arrest, secondary to unknown etiology. Possible aspiration pneumonia, NSTEMI, hypoxia, septic shock, infection -see code blue sheet for the details -patient currently intubated, vasopressors for blood pressure support have been weaned off -appreciate cardiology following the patient 02/29/2024 echocardiogram Summary 1. Technically difficult study with limited views. 2. Left ventricular chamber dimension is normal. 3. Left ventricular systolic function is mildly reduced, estimated at 45-50%. The apex appears to be hypokinetic. 4. There is mildly increased left ventricular wall thickness. 5. The left ventricular diastolic function is grade I diastolic dysfunction. 6. Right ventricular systolic function is normal. 7. Left atrial chamber dimension is moderately enlarged. 8. There is mild to moderate tricuspid valve regurgitation. 9. There is small anterior pericardial effusion. (3) Septic shock: Code(s): A41.9 - Sepsis, unspecified organism; R65.21 - Severe sepsis with septic shock Status: Acute Assessment and Plan: Resolved Patient in shock, likely related to the gangrene, aspiration pneumonia, status post cardiac arrest 02/28/2024: Blood cultures have been obtained and negative till now -lactic acid has normalized -patient has been adequately fluid-resuscitated, stress dose steroids and midodrine -blood pressures are now elevated requiring losartan and metoprolol Status post 10 days of antibiotics (4) NSTEMI (non-ST elevated myocardial infarction): Code(s): I21.4 - Non-ST elevation (NSTEMI) myocardial infarction Status: Acute Assessment and Plan: Increasing troponins, -EKG showed sinus rhythm with T-wave changes in V1 to V5 -appreciate cardiology evaluation and recommendation -Continue aspirin and high-dose a statin -will hold Brilinta. Resumption per General surgery -continue beta-brayden, losartan -03/02 heparin infusion was discontinued after 48 hours for NSTEMI by cardiology (5) Gangrene of right foot: Code(s): I96 - Gangrene, not elsewhere classified Status: Acute Assessment and Plan: CTA showed peripheral arterial disease with total occlusion of the right anterior and posterior tibial arteries and right peroneal artery with distal reconstitution of peroneal artery. This extensive gangrene of the right foot with gas seen on CT of the foot. General surgery spoke to the patient in the ER on the day of admission on 02/27 patient at that time agreed for below-knee amputation. Plan was to do a below-knee amputation on 02/29/2024 but patient had a cardiac arrest that night secondary to sepsis. Surgery at that time was deferred. Patient now is intubated sedated and unable to sign his consent.. Patient has no family and for many years at the halfway has had no visitor. He has 1 son which no one has been able to get hold off right several attempts. Considering patient has gangrene of the foot with no vascular supply leading to sepsis and if untreatable lead to his , Dr. Johns will proceed with amputation today, 03/05/2024. Dr. Collins and Dr. Johns has signed 2 physician consent considering patient's clearly expressed wishes prior to cardiac arrest at the time of admission, his current situation and inability to sign the consent form by himself at this time. 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 Postop management per General surgery -continue antibiotics for necrotizing gas gangrene. Patient on meropenem and vancomycin which was started on 02/28/2024 -complete 5 days of clindamycin (6) Osteomyelitis of toe of right foot: Code(s): M86.9 - Osteomyelitis, unspecified Status: Chronic Assessment and Plan: As above (7) Peripheral vascular disease: Code(s): I73.9 - Peripheral vascular disease, unspecified Status: Chronic Assessment and Plan: Patient has history of peripheral vascular disease, coronary artery disease -started on aspirin, patient will require Brilinta since he had a STEMI in 2020 but currently holding Brilinta due to surgery and bleeding (8) Type 2 diabetes mellitus: Qualifiers: 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 complication status: with other specified complication 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 buttermaker insulin use: with mcc use Qualified Code(s): E11.69 - Type 2 diabetes mellitus with other specified complication; 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 Code(s): E11.9 - Type 2 diabetes mellitus without complications Status: Acute Assessment and Plan: Currently on sliding scale insulin, Accu-Cheks Hemoglobin A1c this admission is 8.2 Continue Lantus (9) Chronic obstructive pulmonary disease: Code(s): J44.9 - Chronic obstructive pulmonary disease, unspecified Status: Chronic Assessment and Plan: Continue DuoNebs -continue Symbicort (10) Electrolyte abnormality: Code(s): E87.8 - Other disorders of electrolyte and fluid balance, not elsewhere classified Status: Acute Assessment and Plan: Hypernatremia, Increase free water flush -sodium levels are elevated but improving Plan DVT prophylaxis: Heparin subQ Stress ulcer prophylaxis: Protonix Nutrition: Tube feeds at goal and tolerating, increase free water flushes, positive bowel movement Code Status: Full code. Patient has no family available. There is some indication but no confirmation the patient has a son. No information available at the halfway where he lived for 11 years. Care coordination is trying to locate patient's son but has not been able to find any information despite multiple times Critical Care Time Spent: 32 minutes Due to a high probability of clinically significant, life threatening deterioration, the patient required my highest level of preparedness to intervene emergently and I personally spent this critical care time directly and personally managing the patient. This critical care time included obtaining a history; examining the patient; pulse oximetry; ordering and review of studies; arranging urgent treatment with development of a management plan; evaluation of patient's response to treatment; frequent reassessment; and discussions with other providers. It was exclusive of separately billable procedures and treating other patients and teaching time. Please see Assessment and Plan section and the rest of the note for further information on patient assessment and treatment This dictation may have been done utilizing a voice recognition system. Attempts have been made to correct errors. However, there may be uncorrected grammatical, spelling, and recognitions errors present. Subjective Date/time seen: 03/11/24 11:23 Interval history: Reason for consult: Status post PEA arrest, right foot gangrene with cellulitis, shock 02/27: Intubated 03/05:Right below-knee amputation with placement of posterior Ortho Glass splint 03/11/2024: Patient seen and examined the ICU, remains intubated, on pressure support ventilation 02/18, 30% FiO2. Patient is not getting adequate amount of volume. Remains sedated with Precedex infusion he, he does open his eyes and follows simple commands. Urine output has been adequate, T packs of 100.2. Tolerating tube feeds, positive bowel movements Bilateral upper and lower extremity edema Review of Systems Review of Systems: ROS unobtainable: Yes unobtainable due to endotracheal tube, unobtainable due to medical condition and unobtainable due to mental status Exam Narrative: General: Patient intubated and sedated, in no acute distress HEENT:, pupils are equal and reactive from a sclera is clear Neck:? supple Respiratory:? Coarse breath sounds bilaterally, decreased at bases, adequate air entry, no wheezing Cardiac:? S1-S2 normal, regular rate and rhythm Abdomen:? Soft, nontender, nondistended, hypoactive bowel sounds Extremities:? Right BKA stump under the dressing. Left dorsalis pedis is dopplerable Neuro:? Patient is intubated, opens his eyes spontaneously, follows simple commands with bedside RN. Skin:? Patient has maceration of his perianal area, pressure ulcer on his buttocks. Psych:? Unable to assess at this time Objective Data Vital Signs Vital Signs: Vital Signs - 24 hr 03/10/24 11:31 03/10/24 11:39 03/10/24 11:41 Temperature 100.0 F H Pulse Rate 77 83 Respiratory Rate 13 Blood Pressure 123/55 L Pulse Oximetry 100 Oxygen Delivery Fraction of Inspired Oxygen 30 03/10/24 13:21 03/10/24 13:23 03/10/24 13:36 Temperature 100.2 F H Pulse Rate 76 76 74 Respiratory Rate 23 H Blood Pressure 108/46 L Pulse Oximetry 100 100 Oxygen Delivery Mechanical Ventilation Fraction of Inspired Oxygen 30 03/10/24 13:36 03/10/24 13:47 03/10/24 15:37 Temperature Pulse Rate 74 78 90 Respiratory Rate 13 13 Blood Pressure Pulse Oximetry Oxygen Delivery Fraction of Inspired Oxygen 03/10/24 15:48 03/10/24 15:48 03/10/24 16:21 Temperature 100.1 F H Pulse Rate 90 79 Respiratory Rate 14 14 Blood Pressure 145/68 H Pulse Oximetry 100 Oxygen Delivery Fraction of Inspired Oxygen 30 03/10/24 12:00 03/10/24 14:00 03/10/24 15:00 Temperature Pulse Rate 79 80 89 Respiratory Rate 23 H 18 16 Blood Pressure Pulse Oximetry Oxygen Delivery Fraction of Inspired Oxygen 03/10/24 16:00 03/10/24 16:29 03/10/24 17:15 Temperature Pulse Rate 88 81 78 Respiratory Rate 13 Blood Pressure Pulse Oximetry 100 Oxygen Delivery Mechanical Ventilation Fraction of Inspired Oxygen 30 03/10/24 17:17 03/10/24 18:38 03/10/24 18:00 Temperature 100.1 F H Pulse Rate 79 76 77 Respiratory Rate 11 L 23 H 12 Blood Pressure 119/52 L Pulse Oximetry 100 Oxygen Delivery Fraction of Inspired Oxygen 03/10/24 20:04 03/10/24 20:14 03/10/24 20:41 Temperature 100.0 F H Pulse Rate 72 68 75 Respiratory Rate 14 19 19 Blood Pressure 97/47 L Pulse Oximetry 100 Oxygen Delivery Fraction of Inspired Oxygen 03/10/24 20:44 03/10/24 20:00 03/10/24 20:00 Temperature Pulse Rate 75 Respiratory Rate Blood Pressure Pulse Oximetry 100 Oxygen Delivery Mechanical Ventilation Mechanical Ventilation Fraction of Inspired Oxygen 30 30 30 03/10/24 20:00 03/10/24 20:55 03/10/24 21:49 Temperature Pulse Rate 74 72 77 Respiratory Rate 14 Blood Pressure Pulse Oximetry Oxygen Delivery Fraction of Inspired Oxygen 03/10/24 22:00 03/10/24 22:00 03/10/24 22:00 Temperature 100.1 F H Pulse Rate 74 74 74 Respiratory Rate 14 14 Blood Pressure 108/49 L Pulse Oximetry 100 Oxygen Delivery Fraction of Inspired Oxygen 03/10/24 23:30 03/10/24 23:47 03/11/24 00:10 Temperature 100.0 F H Pulse Rate 74 72 76 Respiratory Rate 20 17 Blood Pressure 122/55 L Pulse Oximetry 100 100 Oxygen Delivery Mechanical Ventilation Fraction of Inspired Oxygen 30 03/11/24 00:00 03/11/24 00:00 03/11/24 00:00 Temperature Pulse Rate 77 Respiratory Rate Blood Pressure Pulse Oximetry Oxygen Delivery Mechanical Ventilation Fraction of Inspired Oxygen 30 30 03/11/24 00:00 03/11/24 02:09 03/11/24 02:49 Temperature Pulse Rate 77 88 Respiratory Rate 17 26 H Blood Pressure 145/73 H Pulse Oximetry Oxygen Delivery Fraction of Inspired Oxygen 03/11/24 02:49 03/11/24 02:40 03/11/24 02:40 Temperature Pulse Rate 89 81 81 Respiratory Rate 18 23 H Blood Pressure Pulse Oximetry 97 Oxygen Delivery Mechanical Ventilation Fraction of Inspired Oxygen 30 03/11/24 03:00 03/11/24 02:00 03/11/24 02:00 Temperature Pulse Rate 80 88 80 Respiratory Rate 18 22 H Blood Pressure Pulse Oximetry Oxygen Delivery Fraction of Inspired Oxygen 03/11/24 04:00 03/11/24 04:00 03/11/24 04:00 Temperature 99.9 F H Pulse Rate 92 Respiratory Rate 16 Blood Pressure 145/63 H Pulse Oximetry 100 Oxygen Delivery Mechanical Ventilation Fraction of Inspired Oxygen 30 30 03/11/24 04:00 03/11/24 04:43 03/11/24 06:00 Temperature 99.6 F Pulse Rate 92 82 86 Respiratory Rate 25 H Blood Pressure 131/59 L Pulse Oximetry 100 100 Oxygen Delivery Mechanical Ventilation Fraction of Inspired Oxygen 30 03/11/24 06:00 03/11/24 04:00 03/11/24 06:00 Temperature Pulse Rate 86 92 86 Respiratory Rate 16 22 H Blood Pressure Pulse Oximetry Oxygen Delivery Fraction of Inspired Oxygen 03/11/24 08:13 03/11/24 08:51 03/11/24 08:58 Temperature Pulse Rate 84 75 75 Respiratory Rate 16 Blood Pressure Pulse Oximetry 100 Oxygen Delivery Mechanical Ventilation Fraction of Inspired Oxygen 30 03/11/24 08:00 03/11/24 08:00 03/11/24 08:00 Temperature 99.5 F Pulse Rate 83 83 Respiratory Rate 25 H Blood Pressure 127/60 Pulse Oximetry 100 Oxygen Delivery Fraction of Inspired Oxygen 30 03/11/24 08:00 03/11/24 08:30 03/11/24 09:00 Temperature Pulse Rate 83 82 73 Respiratory Rate 25 H 25 H 10 L Blood Pressure Pulse Oximetry Oxygen Delivery Fraction of Inspired Oxygen 03/11/24 10:00 03/11/24 10:00 03/11/24 10:00 Temperature 99.3 F Pulse Rate 74 74 74 Respiratory Rate 15 15 Blood Pressure 120/60 Pulse Oximetry 100 Oxygen Delivery Fraction of Inspired Oxygen 03/11/24 10:29 03/11/24 11:14 Temperature Pulse Rate 75 77 Respiratory Rate 16 Blood Pressure Pulse Oximetry 100 Oxygen Delivery Mechanical Ventilation Fraction of Inspired Oxygen 30 Intake/Output Intake/Output: Intake & Output 03/08/24 03/09/24 03/10/24 03/11/24 23:59 23:59 23:59 23:59 Intake Total 3058.7 2981.7 2167.0 1109.8 Output Total 2625 1700 650 550 Balance 433.7 1281.7 1517.0 559.8 Meds/Results Medications: Active Medications Generic Name Dose Route Start Last Admin Trade Name Freq PRN Reason Stop Dose Admin Acetaminophen 500 mg 03/08/24 10:18 03/08/24 22:57 Acetaminophen 500 Mg Tablet FEED TUBE 500 mg Q6H PRN Administration Pain Rated 1-3 Albuterol/Ipratropium 3 ml 02/29/24 02:00 03/11/24 08:40 Ipratropium 0.5 Mg/Albuterol Sulfate 2.5 Mg Ampul.Neb 3 Ml INHALATION 3 ml Q6HRT JASON Administration Alteplase, Recombinant 2 mg 03/06/24 09:45 03/06/24 13:10 Alteplase 2 Mg Vial (Cathflo) IV PUSH 2 mg ONCE PRN Administration Line Occlusion Aspirin 81 mg 03/09/24 08:00 03/11/24 08:13 Aspirin 81 Mg Chewable Tablet FEED TUBE 81 mg DAILY@0800 JASON Administration Atorvastatin Calcium 80 mg 03/09/24 09:00 03/11/24 08:13 Atorvastatin 40 Mg Tablet FEED TUBE 80 mg DAILY JASON Administration Dextrose 12.5 gm 02/28/24 19:23 Dextrose 50% 25 Gm/50 Ml Syringe IV PUSH PRN PRN Hypoglycemia Protocol Glucagon 1 mg 02/28/24 19:23 Glucagon For Inj 1 Mg Vial IM PRN PRN Hypoglycemia Protocol Glucose 15 gm 03/08/24 10:19 Glucose Oral Gel 15 Gm Of Glucse In 37.5 Gm Tube FEED TUBE PRN PRN Hypoglycemia Protocol Heparin Sodium (Porcine) 5,000 units 03/03/24 14:00 03/11/24 05:52 Heparin Sodium 5,000 Units/Ml Vial SUB-Q 5,000 units Q8HR JASON Administration Hydralazine HCl 20 mg 03/08/24 10:06 Hydralazine Hcl 20 Mg/Ml Vial IV PUSH Q4HR PRN Hypertension Dextrose 1,000 mls @ 100 mls/hr 02/28/24 19:23 Dextrose 5% 1,000 Ml IVPB PRN PRN Hypoglycemia Protocol Dexmedetomidine HCl 400 mcg in 100 mls @ 2.448 mls/hr 03/09/24 08:25 03/11/24 10:30 Precedex 400 Mcg/100 Ml IV CONT Not Given .[id number] JASON Protocol 0.1 MCG/KG/HR Insulin Aspart 3 - 6 units 03/01/24 00:00 03/11/24 06:15 Insulin Aspart (*Bkc) 100 Units/Ml SUB-Q 3 units Q6H JASON Administration Protocol Insulin Glargine 45 units 03/09/24 09:00 03/11/24 08:14 Insulin Glargine (*Bkc) 100 Units/Ml SUB-Q 45 units DAILY JASON Administration Labetalol HCl 20 mg 03/08/24 10:06 03/08/24 16:48 Labetalol Hcl Inj 100 Mg/20 Ml Vial IV PUSH 20 mg Q4H PRN Administration SBP > 160 and HR> 60 -1st choice Losartan Potassium 50 mg 03/08/24 10:15 03/11/24 08:13 Losartan Potassium 50 Mg Tablet FEED TUBE 50 mg DAILY JASON Administration Metoprolol Tartrate 50 mg 03/08/24 10:15 03/11/24 08:13 Metoprolol Tartrate 50 Mg Tab FEED TUBE 50 mg Q12HR JASON Administration Multi-Ingred Cream/Lotion/Oil/Oint 1 applic 03/07/24 21:00 03/11/24 08:24 Mineral Oil/White Petrolatum Ointment EACH EYE 1 applic Q12HR JASON Administration Pantoprazole Sodium 40 mg 03/02/24 09:00 03/11/24 08:13 Pantoprazole Sodium Iv 40 Mg Vial IV PUSH 40 mg Q12HR JASON Administration Sodium Chloride 10 ml 02/29/24 06:00 03/11/24 05:53 Central Line Flush IV PUSH 10 ml Q8HR JASON Administration Sodium Chloride 20 ml 02/28/24 23:37 Central Line Flush IV PUSH PRN PRN after blood draws Radiology Results: ITS Impressions Lower Extremity CTA 02/28/24 14:54 IMPRESSION: 1. 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 2. Moderate stenosis of right popliteal artery. 3. Osteomyelitis involving first proximal and distal phalanges and head of first metatarsal. Head CT 02/29/24 05:55 Impression: No intracranial hemorrhage, mass, or acute infarct. Stable chronic encephalomalacia in the high left parietal lobe. Atrophy and chronic white matter changes, as above. Chest/Abdomen/Pelvis CTA 02/29/24 06:02 Impression: Extensive right upper lobe consolidation and more mild right middle lobe consolidation, consistent with pneumonia. Consider aspiration pneumonia. Moderate to large right pleural effusion with complete atelectasis of the right lower lobe. Moderate left pleural effusion with minimal left basilar atelectasis. Small pericardial effusion. No definite acute abnormality in the abdomen or pelvis. Chronic compression fractures, as above. Renal Ultrasound 03/03/24 15:45 IMPRESSION: 1. Normal kidneys without hydronephrosis. 2. Small amount of ascites in the abdomen and pelvis. Thoracentesis Ultrasound 03/08/24 09:35 IMPRESSION: 1. Successful ultrasound-guided thoracentesis yielding 550 mL of clear, yellow fluid. Chest X-Ray 03/11/24 07:19 Impression: Small right pleural effusion. Support tubes, as above. Labs Labs: Laboratory Results - last 24 hr 03/10/24 03/11/24 03/11/24 17:51 00:06 04:46 WBC RBC Hgb Hct MCV MCH MCHC RDW Plt Count MPV Puncture Site Right radial ABG pH 7.489 H ABG pCO2 40.2 ABG pO2 87.9 ABG PO2/FiO2 Ratio 2.93 ABG HCO3 29.9 H ABG O2 Saturation 97.3 ABG O2 Content 11.1 L ABG Base Excess 6.0 A-a Gradient 78.8 Oxyhemoglobin 95.9 Carboxyhemoglobin 1.1 Methemoglobin 0.3 Reduced Hemoglobin 2.7 Total Hemoglobin 8.1 L O2 Delivery Device Ventilator O2 Liters/Min Not Reportable Vent Rate 0 Vent Mode Spontaneous FiO2 30 PEEP 8 Peak Inspir Pressure 10 Sodium Potassium Chloride Carbon Dioxide Anion Gap BUN Creatinine Estim Creat Clear Calc Estimated GFR Glucose POC Capillary Glucose 141 H 148 H Calcium Magnesium Total Bilirubin AST ALT Alkaline Phosphatase Total Protein Albumin Triglycerides 03/11/24 05:51 WBC 7.8 RBC 2.81 L Hgb 7.8 L Hct 25.8 L MCV 91.8 MCH 27.8 MCHC 30.2 L RDW 16.5 H Plt Count 169 MPV 10.8 H Puncture Site ABG pH ABG pCO2 ABG pO2 ABG PO2/FiO2 Ratio ABG HCO3 ABG O2 Saturation ABG O2 Content ABG Base Excess A-a Gradient Oxyhemoglobin Carboxyhemoglobin Methemoglobin Reduced Hemoglobin Total Hemoglobin O2 Delivery Device O2 Liters/Min Vent Rate Vent Mode FiO2 PEEP Peak Inspir Pressure Sodium 147 H Potassium 3.7 Chloride 111 H Carbon Dioxide 31 H Anion Gap 5 BUN 34 H Creatinine 0.80 Estim Creat Clear Calc 91 Estimated GFR > 60 Glucose 220 H POC Capillary Glucose Calcium 7.9 L Magnesium 2.4 H Total Bilirubin 0.4 AST 143 H ALT 106 H Alkaline Phosphatase 111 Total Protein 6.0 L Albumin 2.5 L Triglycerides 110 Quality VTE Prophylaxis VTE prophylaxis: pharmacologic ordered
--- NOTE | 2024-03-11 11:33 | PCNFU ---
Nutrition Follow-Up Complete: Suboptimal Energy Intake as related to mechanical vent as evidenced by NPO. goal: Meet estimated nutritional needs Patient will continue current goal. Pt current nutrition is Glucerna 1.2 at 60 ml/hr with flush of Minh BID and Prosource BID. Last recorded weight is 99.3 kg, up from 98 kg on admit. Bowel Motility: +BM reported 03/11 Labs Reviewed: Mg 2.4, Glu 220, BUN 34, Na 147, Alb 2.5, Hct 25.8,Hgb 7.9 Meds Noted:Precedex, NovoLog, Lantus Skin:Stage II-sacrum, Right BKA. Additional Notes: Patient remains on a mechanical vent. CMV mode working on breathing trial. Tube feedings are being tolerated of Glucerna 1.2 at 60 ml/hr providing 1584 kcal/79 gm protein/1062 ml water. Protein Modulars are adding an additional 320 kcal and 45 gm protein due to wounds. Flush 250 ml q 4 hours. Reglan has been discontinued. Agree with diet orders. Will monitor weight, labs, skin, tube feedings, meds, every Sunday and Sunday.
[2024-03-11 11:41] LABS: Glucose Point of Care 214 mg/dl (65-105)
[2024-03-11] MEDS: ACETAMINOPHEN 500 MG TABLET FEED TUBE (14:58)
--- NOTE | 2024-03-11 15:27 | PM.PNGS ---
Progress Note: A&P Assessment and Plan (1) Amputation of right lower extremity below knee: Qualifiers: Encounter type: subsequent encounter Qualified Code(s): S88.111D - Complete traumatic amputation at level between knee and ankle, right lower leg, subsequent encounter Code(s): S88.111A - Complete traumatic amputation at level between knee and ankle, right lower leg, initial encounter Status: Acute Assessment and Plan: Amputation incision and posterior flap both healing well. Knee immobilizer placed to minimize contraction of the right knee while he is still in critical care condition. Continue to follow. (2) Acute respiratory failure with hypoxia: Code(s): J96.01 - Acute respiratory failure with hypoxia Status: Acute Assessment and Plan: Hypoxia improved but still too sleepy and 2 week to ventilate adequately. Discussed with Dr. Edmond. (3) Chronic obstructive pulmonary disease: Code(s): J44.9 - Chronic obstructive pulmonary disease, unspecified Status: Chronic Assessment and Plan: Playing a role in his pulmonary status. Subjective Subjective Date/Time Seen: 03/11/24 15:27 Post Op day: #6 Interval history: Remains on ventilator but oxygenation is good. Ventilation continues to be the problem. He is more awake than he has been on any of my previous ICU visits to see him. Nods to some questions. Eyes mostly open. Exam Extrem: Right lower extremity: lower leg (Amputation dressing removed. Incision healing well, flap healthy) Other: Patient has a noticeable but mild flexion contracture of his right knee. After re-dressing the amputation stump, we put him in a knee immobilizer with minimal contraction of the knee. Objective Data Vital Signs Vital Signs: Vital Signs - 24 hr 03/10/24 15:37 03/10/24 15:48 03/10/24 15:48 Temperature 37.8 C H Pulse Rate 90 90 Respiratory Rate 14 Blood Pressure 145/68 H Pulse Oximetry 100 Oxygen Delivery Fraction of Inspired Oxygen 30 03/10/24 16:21 03/10/24 16:00 03/10/24 16:29 Temperature Pulse Rate 79 88 81 Respiratory Rate 14 13 Blood Pressure Pulse Oximetry 100 Oxygen Delivery Mechanical Ventilation Fraction of Inspired Oxygen 30 03/10/24 17:15 03/10/24 17:17 03/10/24 18:38 Temperature 37.8 C H Pulse Rate 78 79 76 Respiratory Rate 11 L 23 H Blood Pressure 119/52 L Pulse Oximetry 100 Oxygen Delivery Fraction of Inspired Oxygen 03/10/24 18:00 03/10/24 20:04 03/10/24 20:14 Temperature 37.8 C H Pulse Rate 77 72 68 Respiratory Rate 12 14 19 Blood Pressure 97/47 L Pulse Oximetry 100 Oxygen Delivery Fraction of Inspired Oxygen 03/10/24 20:41 03/10/24 20:44 03/10/24 20:00 Temperature Pulse Rate 75 75 Respiratory Rate 19 Blood Pressure Pulse Oximetry 100 Oxygen Delivery Mechanical Ventilation Mechanical Ventilation Fraction of Inspired Oxygen 30 30 03/10/24 20:00 03/10/24 20:00 03/10/24 20:55 Temperature Pulse Rate 74 72 Respiratory Rate 14 Blood Pressure Pulse Oximetry Oxygen Delivery Fraction of Inspired Oxygen 30 03/10/24 21:49 03/10/24 22:00 03/10/24 22:00 Temperature 37.8 C H Pulse Rate 77 74 74 Respiratory Rate 14 Blood Pressure 108/49 L Pulse Oximetry 100 Oxygen Delivery Fraction of Inspired Oxygen 03/10/24 22:00 03/10/24 23:30 03/10/24 23:47 Temperature Pulse Rate 74 74 72 Respiratory Rate 14 20 Blood Pressure Pulse Oximetry 100 Oxygen Delivery Mechanical Ventilation Fraction of Inspired Oxygen 30 03/11/24 00:10 03/11/24 00:00 03/11/24 00:00 Temperature 37.8 C H Pulse Rate 76 Respiratory Rate 17 Blood Pressure 122/55 L Pulse Oximetry 100 Oxygen Delivery Mechanical Ventilation Fraction of Inspired Oxygen 30 30 03/11/24 00:00 03/11/24 00:00 03/11/24 02:09 Temperature Pulse Rate 77 77 Respiratory Rate 17 Blood Pressure 145/73 H Pulse Oximetry Oxygen Delivery Fraction of Inspired Oxygen 03/11/24 02:49 03/11/24 02:49 03/11/24 02:40 Temperature Pulse Rate 88 89 81 Respiratory Rate 26 H 18 23 H Blood Pressure Pulse Oximetry Oxygen Delivery Fraction of Inspired Oxygen 03/11/24 02:40 03/11/24 03:00 03/11/24 02:00 Temperature Pulse Rate 81 80 88 Respiratory Rate 18 Blood Pressure Pulse Oximetry 97 Oxygen Delivery Mechanical Ventilation Fraction of Inspired Oxygen 30 03/11/24 02:00 03/11/24 04:00 03/11/24 04:00 Temperature Pulse Rate 80 Respiratory Rate 22 H Blood Pressure Pulse Oximetry Oxygen Delivery Mechanical Ventilation Fraction of Inspired Oxygen 30 30 03/11/24 04:00 03/11/24 04:00 03/11/24 04:43 Temperature 37.7 C H Pulse Rate 92 92 82 Respiratory Rate 16 Blood Pressure 145/63 H Pulse Oximetry 100 100 Oxygen Delivery Mechanical Ventilation Fraction of Inspired Oxygen 30 03/11/24 06:00 03/11/24 06:00 03/11/24 04:00 Temperature 37.6 C Pulse Rate 86 86 92 Respiratory Rate 25 H 16 Blood Pressure 131/59 L Pulse Oximetry 100 Oxygen Delivery Fraction of Inspired Oxygen 03/11/24 06:00 03/11/24 08:13 03/11/24 08:51 Temperature Pulse Rate 86 84 75 Respiratory Rate 22 H 16 Blood Pressure Pulse Oximetry Oxygen Delivery Fraction of Inspired Oxygen 03/11/24 08:58 03/11/24 08:00 03/11/24 08:00 Temperature Pulse Rate 75 83 Respiratory Rate Blood Pressure Pulse Oximetry 100 Oxygen Delivery Mechanical Ventilation Fraction of Inspired Oxygen 30 30 03/11/24 08:00 03/11/24 08:00 03/11/24 08:00 Temperature 37.5 C Pulse Rate 83 83 83 Respiratory Rate 25 H 25 H 25 H Blood Pressure 127/60 Pulse Oximetry 100 100 Oxygen Delivery Mechanical Ventilation Fraction of Inspired Oxygen 30 03/11/24 08:30 03/11/24 09:00 03/11/24 10:00 Temperature Pulse Rate 82 73 74 Respiratory Rate 25 H 10 L 15 Blood Pressure Pulse Oximetry Oxygen Delivery Fraction of Inspired Oxygen 03/11/24 10:00 03/11/24 10:00 03/11/24 10:29 Temperature 37.4 C Pulse Rate 74 74 75 Respiratory Rate 15 16 Blood Pressure 120/60 Pulse Oximetry 100 Oxygen Delivery Fraction of Inspired Oxygen 03/11/24 11:14 03/11/24 12:00 03/11/24 12:00 Temperature Pulse Rate 77 76 Respiratory Rate Blood Pressure Pulse Oximetry 100 Oxygen Delivery Mechanical Ventilation Fraction of Inspired Oxygen 30 30 03/11/24 12:00 03/11/24 12:00 03/11/24 12:30 Temperature 37.5 C Pulse Rate 76 76 76 Respiratory Rate 17 17 17 Blood Pressure 122/56 L Pulse Oximetry 100 Oxygen Delivery Fraction of Inspired Oxygen 03/11/24 12:00 03/11/24 14:06 03/11/24 14:06 Temperature Pulse Rate 76 79 79 Respiratory Rate 17 16 Blood Pressure Pulse Oximetry 100 100 Oxygen Delivery Mechanical Ventilation Mechanical Ventilation Fraction of Inspired Oxygen 30 30 03/11/24 14:00 03/11/24 14:00 03/11/24 14:13 Temperature 37.4 C Pulse Rate 78 78 78 Respiratory Rate 18 20 Blood Pressure 121/56 L Pulse Oximetry 100 Oxygen Delivery Fraction of Inspired Oxygen Intake/Output Intake/Output: Intake & Output 03/08/24 03/09/24 03/10/24 03/11/24 23:59 23:59 23:59 23:59 Intake Total 3058.7 2981.7 2167.0 1113.5 Output Total 2625 1700 650 550 Balance 433.7 1281.7 1517.0 563.5 Meds/Results Medications: Active Medications Generic Name Dose Route Start Last Admin Trade Name Freq PRN Reason Stop Dose Admin Acetaminophen 500 mg 03/08/24 10:18 03/11/24 14:58 Acetaminophen 500 Mg Tablet FEED TUBE 500 mg Q6H PRN Administration Pain Rated 1-3 Albuterol/Ipratropium 3 ml 02/29/24 02:00 03/11/24 14:06 Ipratropium 0.5 Mg/Albuterol Sulfate 2.5 Mg Ampul.Neb 3 Ml INHALATION 3 ml Q6HRT JASON Administration Alteplase, Recombinant 2 mg 03/06/24 09:45 03/06/24 13:10 Alteplase 2 Mg Vial (Cathflo) IV PUSH 2 mg ONCE PRN Administration Line Occlusion Aspirin 81 mg 03/09/24 08:00 03/11/24 08:13 Aspirin 81 Mg Chewable Tablet FEED TUBE 81 mg DAILY@0800 JASON Administration Atorvastatin Calcium 80 mg 03/09/24 09:00 03/11/24 08:13 Atorvastatin 40 Mg Tablet FEED TUBE 80 mg DAILY JASON Administration Dextrose 12.5 gm 02/28/24 19:23 Dextrose 50% 25 Gm/50 Ml Syringe IV PUSH PRN PRN Hypoglycemia Protocol Glucagon 1 mg 02/28/24 19:23 Glucagon For Inj 1 Mg Vial IM PRN PRN Hypoglycemia Protocol Glucose 15 gm 03/08/24 10:19 Glucose Oral Gel 15 Gm Of Glucse In 37.5 Gm Tube FEED TUBE PRN PRN Hypoglycemia Protocol Heparin Sodium (Porcine) 5,000 units 03/03/24 14:00 03/11/24 13:30 Heparin Sodium 5,000 Units/Ml Vial SUB-Q 5,000 units Q8HR JASON Administration Hydralazine HCl 20 mg 03/08/24 10:06 Hydralazine Hcl 20 Mg/Ml Vial IV PUSH Q4HR PRN Hypertension Dextrose 1,000 mls @ 100 mls/hr 02/28/24 19:23 Dextrose 5% 1,000 Ml IVPB PRN PRN Hypoglycemia Protocol Dexmedetomidine HCl 400 mcg in 100 mls @ 0 mls/hr 03/09/24 08:25 03/11/24 12:30 Precedex 400 Mcg/100 Ml IV CONT 0 mcg/kg/hr .Q0M JASON 0 mls/hr Titration Protocol Insulin Aspart 3 - 6 units 03/01/24 00:00 03/11/24 11:41 Insulin Aspart (*Bkc) 100 Units/Ml SUB-Q 3 units Q6H JASON Administration Protocol Insulin Glargine 45 units 03/09/24 09:00 03/11/24 08:14 Insulin Glargine (*Bkc) 100 Units/Ml SUB-Q 45 units DAILY JASON Administration Labetalol HCl 20 mg 03/08/24 10:06 03/08/24 16:48 Labetalol Hcl Inj 100 Mg/20 Ml Vial IV PUSH 20 mg Q4H PRN Administration SBP > 160 and HR> 60 -1st choice Losartan Potassium 50 mg 03/08/24 10:15 03/11/24 08:13 Losartan Potassium 50 Mg Tablet FEED TUBE 50 mg DAILY JASON Administration Metoprolol Tartrate 50 mg 03/08/24 10:15 03/11/24 08:13 Metoprolol Tartrate 50 Mg Tab FEED TUBE 50 mg Q12HR JASON Administration Multi-Ingred Cream/Lotion/Oil/Oint 1 applic 03/07/24 21:00 03/11/24 08:24 Mineral Oil/White Petrolatum Ointment EACH EYE 1 applic Q12HR JASON Administration Pantoprazole Sodium 40 mg 03/02/24 09:00 03/11/24 08:13 Pantoprazole Sodium Iv 40 Mg Vial IV PUSH 40 mg Q12HR JASON Administration Sodium Chloride 10 ml 02/29/24 06:00 03/11/24 13:30 Central Line Flush IV PUSH 10 ml Q8HR JASON Administration Sodium Chloride 20 ml 02/28/24 23:37 Central Line Flush IV PUSH PRN PRN after blood draws Ticagrelor 60 mg 03/12/24 09:00 Ticagrelor 60 Mg Tablet PO Q12H [facility] Radiology Results: ITS Impressions Lower Extremity CTA 02/28/24 14:54 IMPRESSION: 1. 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 2. Moderate stenosis of right popliteal artery. 3. Osteomyelitis involving first proximal and distal phalanges and head of first metatarsal. Head CT 02/29/24 05:55 Impression: No intracranial hemorrhage, mass, or acute infarct. Stable chronic encephalomalacia in the high left parietal lobe. Atrophy and chronic white matter changes, as above. Chest/Abdomen/Pelvis CTA 02/29/24 06:02 Impression: Extensive right upper lobe consolidation and more mild right middle lobe consolidation, consistent with pneumonia. Consider aspiration pneumonia. Moderate to large right pleural effusion with complete atelectasis of the right lower lobe. Moderate left pleural effusion with minimal left basilar atelectasis. Small pericardial effusion. No definite acute abnormality in the abdomen or pelvis. Chronic compression fractures, as above. Renal Ultrasound 03/03/24 15:45 IMPRESSION: 1. Normal kidneys without hydronephrosis. 2. Small amount of ascites in the abdomen and pelvis. Thoracentesis Ultrasound 03/08/24 09:35 IMPRESSION: 1. Successful ultrasound-guided thoracentesis yielding 550 mL of clear, yellow fluid. Chest X-Ray 03/11/24 07:19 Impression: Small right pleural effusion. Support tubes, as above. Venous Doppler Study 03/11/24 13:58 IMPRESSION: 1. Patent bilateral upper extremity veins. No evidence of venous thrombosis. Labs Labs: Laboratory Results - last 24 hr 03/10/24 03/11/24 03/11/24 17:51 00:06 04:46 WBC RBC Hgb Hct MCV MCH MCHC RDW Plt Count MPV Puncture Site Right radial ABG pH 7.489 H ABG pCO2 40.2 ABG pO2 87.9 ABG PO2/FiO2 Ratio 2.93 ABG HCO3 29.9 H ABG O2 Saturation 97.3 ABG O2 Content 11.1 L ABG Base Excess 6.0 A-a Gradient 78.8 Oxyhemoglobin 95.9 Carboxyhemoglobin 1.1 Methemoglobin 0.3 Reduced Hemoglobin 2.7 Total Hemoglobin 8.1 L O2 Delivery Device Ventilator O2 Liters/Min Not Reportable Vent Rate 0 Vent Mode Spontaneous FiO2 30 PEEP 8 Peak Inspir Pressure 10 Sodium Potassium Chloride Carbon Dioxide Anion Gap BUN Creatinine Estim Creat Clear Calc Estimated GFR Glucose POC Capillary Glucose 141 H 148 H Calcium Magnesium Total Bilirubin AST ALT Alkaline Phosphatase Total Protein Albumin Triglycerides 03/11/24 03/11/24 05:51 11:36 WBC 7.8 RBC 2.81 L Hgb 7.8 L Hct 25.8 L MCV 91.8 MCH 27.8 MCHC 30.2 L RDW 16.5 H Plt Count 169 MPV 10.8 H Puncture Site ABG pH ABG pCO2 ABG pO2 ABG PO2/FiO2 Ratio ABG HCO3 ABG O2 Saturation ABG O2 Content ABG Base Excess A-a Gradient Oxyhemoglobin Carboxyhemoglobin Methemoglobin Reduced Hemoglobin Total Hemoglobin O2 Delivery Device O2 Liters/Min Vent Rate Vent Mode FiO2 PEEP Peak Inspir Pressure Sodium 147 H Potassium 3.7 Chloride 111 H Carbon Dioxide 31 H Anion Gap 5 BUN 34 H Creatinine 0.80 Estim Creat Clear Calc 91 Estimated GFR > 60 Glucose 220 H POC Capillary Glucose 214 H Calcium 7.9 L Magnesium 2.4 H Total Bilirubin 0.4 AST 143 H ALT 106 H Alkaline Phosphatase 111 Total Protein 6.0 L Albumin 2.5 L Triglycerides 110
[2024-03-11 17:59] LABS: Glucose Point of Care 153 mg/dl (65-105)
[2024-03-11] MEDS: dexmedeTOMIDine 400 MCG/100 ML 400 MCG/100 ML BAG 9.93 MCG IV CONT (21:55)
[2024-03-12] VITALS (32 sets, daily range): BP systolic 110–147; BP diastolic 51–65; PULSE 68–111; RESP 8–95; TEMP 37.4–37.9; O2SAT 15–100
[2024-03-12 00:31] LABS: Glucose Point of Care 227 mg/dl (65-105)
[2024-03-12] MEDS: INSULIN ASPART (*BKC) 100 UNITS/ML SUB-Q ×2 (00:31→06:26)
[2024-03-12] MEDS: IPRATROPIUM 0.5 MG/ALBUTEROL SULFATE 2.5 MG AMPUL.NEB 3 ML INHALATION ×4 (01:23→20:30)
[2024-03-12 05:03] LABS: Alveolar/Arterial O2 Gradient 90.3 mmHg; Carboxyhemoglobin 1.7 % THb (0-2.0); Fractional Inspired Oxygen 30 %; HCO3 ABG 31.5 mEq/l (22.0-26.0); Methemoglobin ABG 0.3 %THb (0-1.5); Oxygen Content ABG 10.5 %vol (16.0-22.0); Oxygen Saturation ABG 96.5 % (95.0-100.0); Oxyhemoglobin 94.4 % THb (90.0-100.0); PCO2 ABG 39.7 mmHg (35.0-45.0); PO2 FiO2 Ratio Arterial Blood 2.57 %; Reduced Hemoglobin 3.6 %THb (0-5.0)
[2024-03-12 05:05] LABS: Device VENTILATOR; Modified Allen's Test Pass; Site Drawn RIGHT RADIAL; Total Hemoglobin 7.8 g/dL (12.0-18.0); pH ABG 7.518 (7.350-7.450)
[2024-03-12 05:06] LABS: Arterial Blood Gas PEEP 8 cmH2O; Arterial Blood Gas Tidal Volume 380 ml; Arterial Blood Gas Vent Mode CMV; Arterial Blood Gas Ventilator rate 16 /MIN
[2024-03-12 05:29] LABS: Basophils Absolute Auto 0.1 K/mm3 (0.0-0.1); Basophils Percent Auto 0.6 % (0.2-1.2); Eosinophils Absolute Auto 0.3 K/mm3 (0-0.3); Eosinophils Percent Auto 3.3 % (0-4.4); Hematocrit 23.7 % (42.0-52.0); Hemoglobin 7.1 g/dL (14.0-18.0); Immature Granulocyte Absolute 0.06 K/mm3 (0.00-0.031); Immature Granulocyte Percent A 0.7 % (0-0.5); Lymphocytes Absolute Auto 1.92 K/mm3 (0.9-3.2); Lymphocytes Percent Auto 22.6 % (18.3-44.2); Mean Corpuscular Hemoglobin 27.3 pg (26-34); Mean Corpuscular Volume 91.2 fl (80-100); Mean Platelet Volume 11.5 fl (7.4-10.4); Monocytes Percent Auto 12.3 % (2.6-8.5); Neutrophils Absolute Auto 5.1 K/mm3 (1.3-6.7); Neutrophils Percent Auto 60.5 % (45.5-73.1); Platelet Count Result 143 k/mm3 (150-375); Red Cell Distribution Width 16.5 % (11.5-14.5); White Blood Count 8.5 K/mm3 (4.5-10.0)
[2024-03-12 05:48] LABS: Alanine Aminotransferase 92 U/L (6-50); Albumin Level 2.4 g/dL (3.5-5.1); Alkaline Phosphatase 102 U/L (38-126); Anion Gap 4 mmol/L (4-12); Aspartate Amino Transferase 84 U/L (17-59); Bilirubin,Total 0.3 mg/dL (0.2-1.3); Blood Urea Nitrogen 33 mg/dL (9-20); Calcium 7.7 mg/dL (8.4-10.2); Carbon Dioxide 32 mmol/L (22-30); Chloride 109 mmol/L (98-107); Estimated CRCL calculation 103 ml/min; Estimated Glomerular Filt Rate > 60; Glucose 219 mg/dL (65-110); Magnesium 2.3 mg/dL (1.6-2.3); Potassium 3.5 mmol/L (3.4-5.0); Sodium 145 mmol/L (137-145)
[2024-03-12] MEDS: HEPARIN SODIUM 5,000 UNITS/ML VIAL 5000 UNITS SUB-Q ×3 (06:21→21:11)
[2024-03-12] MEDS: CENTRAL LINE FLUSH 10 ML IV PUSH ×3 (06:29→21:05)
[2024-03-12] MEDS: dexmedeTOMIDine 400 MCG/100 ML 400 MCG/100 ML BAG 9.93 MCG IV CONT (06:33)
[2024-03-12] MEDS: PANTOPRAZOLE SODIUM IV 40 MG VIAL IV PUSH ×2 (09:13→21:05)
[2024-03-12] MEDS: ASPIRIN 81 MG CHEWABLE TABLET FEED TUBE (09:13)
[2024-03-12] MEDS: ATORVASTATIN 40 MG TABLET 80 MG FEED TUBE (09:13)
[2024-03-12] MEDS: LOSARTAN POTASSIUM 50 MG TABLET FEED TUBE (09:13)
[2024-03-12] MEDS: METOPROLOL TARTRATE 50 MG TAB FEED TUBE ×2 (09:13→21:04)
[2024-03-12 09:21] LABS: Glucose Point of Care 177 mg/dl (65-105)
[2024-03-12] MEDS: INSULIN GLARGINE (*BKC) 100 UNITS/ML 45 UNITS SUB-Q (09:27)
[2024-03-12] MEDS: MINERAL OIL/WHITE PETROLATUM OINTMENT 1 APPLIC EACH EYE ×2 (09:28→21:05)
[2024-03-12] MEDS: FUROSEMIDE INJ 40 MG/4 ML VIAL IV PUSH (09:28)
--- NOTE | 2024-03-12 12:09 | PCFNICU ---
ICU Rounding Note: Pt current nutrition is Glucerna 1.2 at 60 ml/hr with Minh BID and Prosource BID. Last recorded weight is 101.2 kg, up from 98 kg on admit. Bowel Motility:FMS Labs Reviewed:Glu 219, BUN 33, Alb 2.4 Meds Noted: NovoLog, Lantus,Lopressor, Protonix. Precedex currently off. Skin: Stage II PU-sacrum, Right BKA Additional Notes: Patient remains on mechanical vent. Tube feedings are being tolerated of Glucerna 1.2 at 60 ml/hr with protein modular of Minh BID and Prosource BID. Flush 250 ml QID. Discussions regarding a possible Right AKA during ICU rounds. Agree with diet orders at this time. Following daily in ICU rounds. Will monitor weight, labs, skin, tube feedings, meds, every Sunday and Sunday.
[2024-03-12 13:14] LABS: Glucose Point of Care 157 mg/dl (65-105)
[2024-03-12 13:23] LABS: Basophils Absolute Auto 0.1 K/mm3 (0.0-0.1); Basophils Percent Auto 0.5 % (0.2-1.2); Eosinophils Absolute Auto 0.4 K/mm3 (0-0.3); Eosinophils Percent Auto 3.5 % (0-4.4); Hematocrit 23.7 % (42.0-52.0); Hemoglobin 7.3 g/dL (14.0-18.0); Immature Granulocyte Absolute 0.05 K/mm3 (0.00-0.031); Immature Granulocyte Percent A 0.5 % (0-0.5); Lymphocytes Percent Auto 21.9 % (18.3-44.2); Mean Corpuscular HGB Conc 30.8 g/dl (32-36); Mean Corpuscular Hemoglobin 27.9 pg (26-34); Mean Corpuscular Volume 90.5 fl (80-100); Mean Platelet Volume 11.3 fl (7.4-10.4); Monocytes Absolute Auto 1.2 K/mm3 (0.1-0.6); Monocytes Percent Auto 11.2 % (2.6-8.5); Neutrophils Absolute Auto 6.6 K/mm3 (1.3-6.7); Neutrophils Percent Auto 62.4 % (45.5-73.1); Platelet Count Result 153 k/mm3 (150-375); Red Blood Count 2.62 M/mm3 (4.6-6.20); Red Cell Distribution Width 16.3 % (11.5-14.5); White Blood Count 10.5 K/mm3 (4.5-10.0)
--- NOTE | 2024-03-12 13:30 | P.PNINT_ITS ---
Progress Note: A&P Assessment and Plan (1) Acute respiratory failure with hypoxia: Code(s): J96.01 - Acute respiratory failure with hypoxia Status: Acute Assessment and Plan: Acute respiratory failure likely related to cardiac arrest, aspiration pneumonia, NSTEMI, hypoxia, septic shock Worsening likely secondary to ARDS versus pulmonary edema -chest x-ray reviewed -continue bronchodilators -on precedex for sedation. Sedation holiday today -03/07 right thoracentesis with 1 L fluid removed -03/08 patient is getting left-sided thoracentesis today -03/11: patient was in pressure support ventilation 02/18, with decrease tidal volumes in the upper 200s. place patient back on CMV, I have asked the bedside RN to decrease the Precedex infusion once patient is more awake will place back on spontaneous breathing trials 03/12: Place patient on SBT /, low tidal volumes, low respiratory rate. Patient had replaced back on CMV mode of ventilation. -even on ASV patient is breathing only 7-8 times a minute -have asked the bedside RN to keep him off Precedex infusion, will retry SBT again today 02/28 Chest CTA: Extensive right upper lobe consolidation and more mild right middle lobe consolidation, consistent with pneumonia. Consider aspiration pneumonia.Moderate to large right pleural effusion with complete atelectasis of the right lower lobe. Moderate left pleural effusion with minimal left basilar atelectasis. Small pericardial effusion. No definite acute abnormality in the abdomen or pelvis. Chronic compression fractures, as above (2) Cardiac arrest with pulseless electrical activity: Code(s): I46.9 - Cardiac arrest, cause unspecified Status: Acute Assessment and Plan: Cardiac arrest, secondary to unknown etiology. Possible aspiration pneumonia, NSTEMI, hypoxia, septic shock, infection -see code blue sheet for the details -patient currently intubated, vasopressors for blood pressure support have been weaned off -appreciate cardiology following the patient 02/29/2024 echocardiogram Summary 1. Technically difficult study with limited views. 2. Left ventricular chamber dimension is normal. 3. Left ventricular systolic function is mildly reduced, estimated at 45-50%. The apex appears to be hypokinetic. 4. There is mildly increased left ventricular wall thickness. 5. The left ventricular diastolic function is grade I diastolic dysfunction. 6. Right ventricular systolic function is normal. 7. Left atrial chamber dimension is moderately enlarged. 8. There is mild to moderate tricuspid valve regurgitation. 9. There is small anterior pericardial effusion. (3) Septic shock: Code(s): A41.9 - Sepsis, unspecified organism; R65.21 - Severe sepsis with septic shock Status: Acute Assessment and Plan: Resolved Patient in shock, likely related to the gangrene, aspiration pneumonia, status post cardiac arrest 02/28/2024: Blood cultures have been obtained and negative till now -lactic acid has normalized -patient has been adequately fluid-resuscitated, stress dose steroids and midodrine -blood pressures are now elevated requiring losartan and metoprolol Status post 10 days of antibiotics (4) NSTEMI (non-ST elevated myocardial infarction): Code(s): I21.4 - Non-ST elevation (NSTEMI) myocardial infarction Status: Acute Assessment and Plan: Increasing troponins, -EKG showed sinus rhythm with T-wave changes in V1 to V5 -appreciate cardiology evaluation and recommendation -Continue aspirin and high-dose a statin -will hold Brilinta. Resumption per General surgery -continue beta-brayden, losartan -03/02 heparin infusion was discontinued after 48 hours for NSTEMI by cardiology (5) Gangrene of right foot: Code(s): I96 - Gangrene, not elsewhere classified Status: Acute Assessment and Plan: CTA showed peripheral arterial disease with total occlusion of the right anterior and posterior tibial arteries and right peroneal artery with distal reconstitution of peroneal artery. This extensive gangrene of the right foot with gas seen on CT of the foot. General surgery spoke to the patient in the ER on the day of admission on 02/27 patient at that time agreed for below-knee amputation. Plan was to do a below- knee amputation on 02/29/2024 but patient had a cardiac arrest that night secondary to sepsis. Surgery at that time was deferred. Patient now is intubated sedated and unable to sign his consent.. Patient has no family and for many years at the shelter has had no visitor. He has 1 son which no one has been able to get hold off right several attempts. Considering patient has gangrene of the foot with no vascular supply leading to sepsis and if untreatable lead to his , Dr. Johns will proceed with amputation today, 03/05/2024. Dr. Collins and Dr. Johns has signed 2 physician consent considering patient's clearly expressed wishes prior to cardiac arrest at the time of admission, his current situation and inability to sign the consent form by himself at this time. 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 Postop management per General surgery -continue antibiotics for necrotizing gas gangrene. Patient on meropenem and vancomycin which was started on 02/28/2024 -complete 5 days of clindamycin (6) Osteomyelitis of toe of right foot: Code(s): M86.9 - Osteomyelitis, unspecified Status: Chronic Assessment and Plan: As above (7) Peripheral vascular disease: Code(s): I73.9 - Peripheral vascular disease, unspecified Status: Chronic Assessment and Plan: Patient has history of peripheral vascular disease, coronary artery disease -started on aspirin, patient will require Brilinta since he had a STEMI in 2020 but currently holding Brilinta due to surgery and bleeding (8) Type 2 diabetes mellitus: Qualifiers: 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 complication status: with other specified complication 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 correction insulin use: with correction use Qualified Code(s): E11.69 - Type 2 diabetes mellitus with other specified complication; Z79.4 - manager terminal (current) use of insulin Code(s): E11.9 - Type 2 diabetes mellitus without complications Status: Acute Assessment and Plan: Currently on sliding scale insulin, Accu-Cheks Hemoglobin A1c this admission is 8.2 Continue Lantus (9) Chronic obstructive pulmonary disease: Code(s): J44.9 - Chronic obstructive pulmonary disease, unspecified Status: Chronic Assessment and Plan: Continue DuoNebs -continue Symbicort (10) Electrolyte abnormality: Code(s): E87.8 - Other disorders of electrolyte and fluid balance, not elsewhere classified Status: Acute Assessment and Plan: Hypernatremia, Increase free water flush -sodium levels are elevated but improving Plan DVT prophylaxis: Heparin subQ Stress ulcer prophylaxis: Protonix Nutrition: Tube feeds at goal and tolerating, increase free water flushes, positive bowel movement Code Status: Full code. Patient has no family available. There is some indication but no confirmation the patient has a son. No information available at the shelter where he lived for 11 years. Care coordination is trying to locate patient's son but has not been able to find any information despite multiple times Critical Care Time Spent: 32 minutes Due to a high probability of clinically significant, life threatening deterioration, the patient required my highest level of preparedness to intervene emergently and I personally spent this critical care time directly and personally managing the patient. This critical care time included obtaining a history; examining the patient; pulse oximetry; ordering and review of studies; arranging urgent treatment with development of a management plan; evaluation of patient's response to treatment; frequent reassessment; and discussions with other providers. It was exclusive of separately billable procedures and treating other patients and teaching time. Please see Assessment and Plan section and the rest of the note for further information on patient assessment and treatment This dictation may have been done utilizing a voice recognition system. Attempts have been made to correct errors. However, there may be uncorrected grammatical, spelling, and recognitions errors present. Subjective Date/time seen: 03/12/24 13:30 Interval history: Reason for consult: Status post PEA arrest, right foot gangrene with cellulitis, shock 02/27: Intubated 03/05:Right below-knee amputation with placement of posterior Ortho Glass splint 03/12/2024: Patient seen and examined the ICU, remains intubated, on CMV mode of ventilation, peep of 8, 30% FiO2 Patient is not getting adequate amount of volume. Remains sedated with Precedex infusion, he does open his eyes and follows simple commands. Urine output has been adequate, T-max 100.3? Tolerating tube feeds, positive bowel movements Bilateral upper and lower extremity edema Review of Systems Review of Systems: ROS unobtainable: Yes unobtainable due to endotracheal tube, unobtainable due to medical condition and unobtainable due to mental status Exam Narrative: General: Patient intubated and sedated, in no acute distress HEENT:, pupils are equal and reactive from a sclera is clear Neck:? supple Respiratory:? Coarse breath sounds bilaterally, decreased at bases, adequate air entry, no wheezing Cardiac:? S1-S2 normal, regular rate and rhythm Abdomen:? Soft, nontender, nondistended, hypoactive bowel sounds Extremities:? Right BKA stump under the dressing. Left dorsalis pedis is dopplerable Neuro:? Patient is intubated, on Precedex infusion opens his eyes spontaneously, follows simple commands Skin:? Patient has maceration of his perianal area, pressure ulcer on his buttocks. Psych:? Unable to assess at this time Objective Data Vital Signs Vital Signs: Vital Signs - 24 hr 03/11/24 14:06 03/11/24 14:06 03/11/24 14:00 Temperature Pulse Rate 79 79 78 Respiratory Rate 16 Blood Pressure Pulse Oximetry 100 Oxygen Delivery Mechanical Ventilation Fraction of Inspired Oxygen 30 03/11/24 14:00 03/11/24 14:13 03/11/24 16:00 Temperature 99.3 F Pulse Rate 78 78 92 Respiratory Rate 18 20 Blood Pressure 121/56 L Pulse Oximetry 100 Oxygen Delivery Fraction of Inspired Oxygen 03/11/24 16:00 03/11/24 16:00 03/11/24 16:00 Temperature 99.1 F Pulse Rate 92 92 Respiratory Rate 14 14 Blood Pressure 153/69 H Pulse Oximetry 100 100 Oxygen Delivery Mechanical Ventilation Fraction of Inspired Oxygen 30 03/11/24 17:28 03/11/24 18:00 03/11/24 18:00 Temperature 99 F Pulse Rate 89 84 84 Respiratory Rate 20 Blood Pressure 138/60 Pulse Oximetry 99 99 Oxygen Delivery Mechanical Ventilation Fraction of Inspired Oxygen 03/11/24 14:30 03/11/24 15:00 03/11/24 15:30 Temperature Pulse Rate 83 93 90 Respiratory Rate 20 20 24 H Blood Pressure Pulse Oximetry Oxygen Delivery Fraction of Inspired Oxygen 03/11/24 16:00 03/11/24 16:30 03/11/24 17:00 Temperature Pulse Rate 92 91 92 Respiratory Rate 14 24 H 21 H Blood Pressure Pulse Oximetry Oxygen Delivery Fraction of Inspired Oxygen 03/11/24 17:30 03/11/24 18:00 03/11/24 19:18 Temperature Pulse Rate 88 84 90 Respiratory Rate 21 H 20 25 H Blood Pressure Pulse Oximetry Oxygen Delivery Fraction of Inspired Oxygen 03/11/24 19:23 03/11/24 19:24 03/11/24 20:00 Temperature Pulse Rate 81 81 84 Respiratory Rate 20 Blood Pressure Pulse Oximetry 100 Oxygen Delivery Mechanical Ventilation Fraction of Inspired Oxygen 30 03/11/24 20:00 03/11/24 20:00 03/11/24 20:00 Temperature 99 F Pulse Rate 84 84 Respiratory Rate 18 18 Blood Pressure 132/57 L Pulse Oximetry 100 100 Oxygen Delivery Mechanical Ventilation Fraction of Inspired Oxygen 30 30 03/11/24 21:22 03/11/24 20:00 03/11/24 21:38 Temperature Pulse Rate 83 83 83 Respiratory Rate 19 18 Blood Pressure Pulse Oximetry Oxygen Delivery Fraction of Inspired Oxygen 03/11/24 21:47 03/11/24 21:55 03/11/24 22:00 Temperature Pulse Rate 80 77 75 Respiratory Rate 18 20 Blood Pressure Pulse Oximetry Oxygen Delivery Fraction of Inspired Oxygen 03/11/24 22:00 03/11/24 22:00 03/11/24 22:40 Temperature 99.2 F Pulse Rate 75 75 76 Respiratory Rate 22 H 22 H Blood Pressure 113/56 L Pulse Oximetry 100 99 Oxygen Delivery Mechanical Ventilation Fraction of Inspired Oxygen 30 03/12/24 00:00 03/12/24 00:00 03/12/24 00:00 Temperature Pulse Rate 77 77 Respiratory Rate 17 Blood Pressure Pulse Oximetry 99 Oxygen Delivery Mechanical Ventilation Fraction of Inspired Oxygen 30 30 03/12/24 00:00 03/12/24 00:00 03/12/24 01:23 Temperature 99.8 F H Pulse Rate 77 77 78 Respiratory Rate 17 17 17 Blood Pressure 126/58 L Pulse Oximetry 99 Oxygen Delivery Fraction of Inspired Oxygen 03/12/24 01:33 03/12/24 01:33 03/12/24 02:00 Temperature Pulse Rate 84 78 84 Respiratory Rate 24 H Blood Pressure Pulse Oximetry 100 Oxygen Delivery Mechanical Ventilation Fraction of Inspired Oxygen 30 03/12/24 02:00 03/12/24 02:00 03/12/24 05:07 Temperature 100 F H Pulse Rate 84 84 83 Respiratory Rate 20 19 Blood Pressure 127/60 Pulse Oximetry 97 98 Oxygen Delivery Mechanical Ventilation Fraction of Inspired Oxygen 30 03/12/24 04:00 03/12/24 06:00 03/12/24 06:33 Temperature Pulse Rate 81 80 78 Respiratory Rate 18 18 14 Blood Pressure Pulse Oximetry Oxygen Delivery Fraction of Inspired Oxygen 03/12/24 06:33 03/12/24 07:25 03/12/24 04:00 Temperature Pulse Rate 78 79 80 Respiratory Rate 14 15 Blood Pressure Pulse Oximetry Oxygen Delivery Fraction of Inspired Oxygen 03/12/24 04:00 03/12/24 04:00 03/12/24 04:00 Temperature 100.3 F H Pulse Rate 80 80 Respiratory Rate 18 18 Blood Pressure 127/64 Pulse Oximetry 96 96 Oxygen Delivery Mechanical Ventilation Fraction of Inspired Oxygen 30 30 03/12/24 06:00 03/12/24 06:00 03/12/24 08:22 Temperature 100.3 F H Pulse Rate 81 81 77 Respiratory Rate 95 H 16 Blood Pressure 110/51 L Pulse Oximetry 15 L Oxygen Delivery Fraction of Inspired Oxygen 03/12/24 08:23 03/12/24 08:43 03/12/24 09:00 Temperature Pulse Rate 77 81 82 Respiratory Rate 18 11 L Blood Pressure Pulse Oximetry 100 Oxygen Delivery Mechanical Ventilation Fraction of Inspired Oxygen 30 03/12/24 09:13 03/12/24 10:00 03/12/24 10:45 Temperature Pulse Rate 80 74 73 Respiratory Rate 8 L 9 L Blood Pressure Pulse Oximetry Oxygen Delivery Fraction of Inspired Oxygen 03/12/24 11:25 03/12/24 08:00 03/12/24 08:00 Temperature Pulse Rate 74 68 74 Respiratory Rate 9 L Blood Pressure Pulse Oximetry 100 100 Oxygen Delivery Mechanical Ventilation Mechanical Ventilation Fraction of Inspired Oxygen 30 30 03/12/24 08:00 03/12/24 08:00 Temperature 99.4 F Pulse Rate 78 Respiratory Rate 17 Blood Pressure 117/58 L Pulse Oximetry 99 Oxygen Delivery Fraction of Inspired Oxygen 30 Intake/Output Intake/Output: Intake & Output 03/09/24 03/10/24 03/11/24 03/12/24 23:59 23:59 23:59 23:59 Intake Total 2981.7 2267.0 2675.2 1929.6 Output Total 3550 046 9657 850 Balance 1281.7 1617.0 850.2 1079.6 Meds/Results Medications: Active Medications Generic Name Dose Route Start Last Admin Trade Name Freq PRN Reason Stop Dose Admin Acetaminophen 500 mg 03/08/24 10:18 03/11/24 14:58 Acetaminophen 500 Mg Tablet FEED TUBE 500 mg Q6H PRN Administration Pain Rated 1-3 Albuterol/Ipratropium 3 ml 02/29/24 02:00 03/12/24 08:18 Ipratropium 0.5 Mg/Albuterol Sulfate 2.5 Mg Ampul.Neb 3 Ml INHALATION 3 ml Q6HRT JASON Administration Alteplase, Recombinant 2 mg 03/06/24 09:45 03/06/24 13:10 Alteplase 2 Mg Vial (Cathflo) IV PUSH 2 mg ONCE PRN Administration Line Occlusion Aspirin 81 mg 03/09/24 08:00 03/12/24 09:13 Aspirin 81 Mg Chewable Tablet FEED TUBE 81 mg DAILY@0800 JASON Administration Atorvastatin Calcium 80 mg 03/09/24 09:00 03/12/24 09:13 Atorvastatin 40 Mg Tablet FEED TUBE 80 mg DAILY JASON Administration Dextrose 12.5 gm 02/28/24 19:23 Dextrose 50% 25 Gm/50 Ml Syringe IV PUSH PRN PRN Hypoglycemia Protocol Glucagon 1 mg 02/28/24 19:23 Glucagon For Inj 1 Mg Vial IM PRN PRN Hypoglycemia Protocol Glucose 15 gm 03/08/24 10:19 Glucose Oral Gel 15 Gm Of Glucse In 37.5 Gm Tube FEED TUBE PRN PRN Hypoglycemia Protocol Heparin Sodium (Porcine) 5,000 units 03/03/24 14:00 03/12/24 06:21 Heparin Sodium 5,000 Units/Ml Vial SUB-Q 5,000 units Q8HR JASON Administration Hydralazine HCl 20 mg 03/08/24 10:06 Hydralazine Hcl 20 Mg/Ml Vial IV PUSH Q4HR PRN Hypertension Dextrose 1,000 mls @ 100 mls/hr 02/28/24 19:23 Dextrose 5% 1,000 Ml IVPB PRN PRN Hypoglycemia Protocol Dexmedetomidine HCl 400 mcg in 100 mls @ 0 mls/hr 03/11/24 21:50 03/12/24 10:45 Precedex 400 Mcg/100 Ml IV CONT 0 mcg/kg/hr .Q0M JASON 0 mls/hr Titration Protocol 0 MCG/KG/HR Insulin Aspart 3 - 6 units 03/01/24 00:00 03/12/24 13:20 Insulin Aspart (*Bkc) 100 Units/Ml SUB-Q Not Given Q6H [facility] Protocol Insulin Glargine 45 units 03/09/24 09:00 03/12/24 09:27 Insulin Glargine (*Bkc) 100 Units/Ml SUB-Q 45 units DAILY JASON Administration Labetalol HCl 20 mg 03/08/24 10:06 03/08/24 16:48 Labetalol Hcl Inj 100 Mg/20 Ml Vial IV PUSH 20 mg Q4H PRN Administration SBP > 160 and HR> 60 -1st choice Losartan Potassium 50 mg 03/08/24 10:15 03/12/24 09:13 Losartan Potassium 50 Mg Tablet FEED TUBE 50 mg DAILY JASON Administration Metoprolol Tartrate 50 mg 03/08/24 10:15 03/12/24 09:13 Metoprolol Tartrate 50 Mg Tab FEED TUBE 50 mg Q12HR JASON Administration Multi-Ingred Cream/Lotion/Oil/Oint 1 applic 03/07/24 21:00 03/12/24 09:28 Mineral Oil/White Petrolatum Ointment EACH EYE 1 applic Q12HR JASON Administration Pantoprazole Sodium 40 mg 03/02/24 09:00 03/12/24 09:13 Pantoprazole Sodium Iv 40 Mg Vial IV PUSH 40 mg Q12HR JASON Administration Sodium Chloride 10 ml 02/29/24 06:00 03/12/24 06:29 Central Line Flush IV PUSH 10 ml Q8HR JASON Administration Sodium Chloride 20 ml 02/28/24 23:37 Central Line Flush IV PUSH PRN PRN after blood draws Radiology Results: ITS Impressions Lower Extremity CTA 02/28/24 14:54 IMPRESSION: 1. 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 2. Moderate stenosis of right popliteal artery. 3. Osteomyelitis involving first proximal and distal phalanges and head of first metatarsal. Head CT 02/29/24 05:55 Impression: No intracranial hemorrhage, mass, or acute infarct. Stable chronic encephalomalacia in the high left parietal lobe. Atrophy and chronic white matter changes, as above. Chest/Abdomen/Pelvis CTA 02/29/24 06:02 Impression: Extensive right upper lobe consolidation and more mild right middle lobe consolidation, consistent with pneumonia. Consider aspiration pneumonia. Moderate to large right pleural effusion with complete atelectasis of the right lower lobe. Moderate left pleural effusion with minimal left basilar atelectasis. Small pericardial effusion. No definite acute abnormality in the abdomen or pelvis. Chronic compression fractures, as above. Renal Ultrasound 03/03/24 15:45 IMPRESSION: 1. Normal kidneys without hydronephrosis. 2. Small amount of ascites in the abdomen and pelvis. Thoracentesis Ultrasound 03/08/24 09:35 IMPRESSION: 1. Successful ultrasound-guided thoracentesis yielding 550 mL of clear, yellow fluid. Venous Doppler Study 03/11/24 13:58 IMPRESSION: 1. Patent bilateral upper extremity veins. No evidence of venous thrombosis. Chest X-Ray 03/12/24 06:15 Impression: Probable minimal pulmonary edema. Support tubes, as above. Labs Labs: Laboratory Results - last 24 hr 03/11/24 03/11/24 03/12/24 04:46 17:57 00:28 WBC RBC Hgb Hct MCV MCH MCHC RDW Plt Count MPV Immature Gran % (Auto) Neut % (Auto) Lymph % (Auto) [place] % (Auto) Eos % (Auto) Baso % (Auto) Lymph # (Auto) [place] # (Auto) Eos # (Auto) Baso # (Auto) Abs Immat Gran (auto) Absolute Neuts (auto) Absolute Nucleated RBC Nucleated RBC % Puncture Site ABG pH ABG pCO2 ABG pO2 ABG PO2/FiO2 Ratio ABG HCO3 ABG O2 Saturation ABG O2 Content ABG Base Excess A-a Gradient Oxyhemoglobin Carboxyhemoglobin Methemoglobin Reduced Hemoglobin Total Hemoglobin O2 Delivery Device O2 Liters/Min Minute Volume Not Reportable Vent Rate Vent Mode FiO2 Tidal Volume Not Reportable PEEP Peak Inspir Pressure Pressure Support Not Reportable Sodium Potassium Chloride Carbon Dioxide Anion Gap BUN Creatinine Estim Creat Clear Calc Estimated GFR Glucose POC Capillary Glucose 153 H 227 H Calcium Phosphorus Magnesium Total Bilirubin AST ALT Alkaline Phosphatase Total Protein Albumin 03/12/24 03/12/24 03/12/24 04:56 05:13 09:16 WBC 8.5 RBC 2.60 L Hgb 7.1 L Hct 23.7 L MCV 91.2 MCH 27.3 MCHC 30.0 L RDW 16.5 H Plt Count 143 L MPV 11.5 H Immature Gran % (Auto) 0.7 H Neut % (Auto) 60.5 Lymph % (Auto) 22.6 [place] % (Auto) 12.3 H Eos % (Auto) 3.3 Baso % (Auto) 0.6 Lymph # (Auto) 1.92 [place] # (Auto) 1.0 H Eos # (Auto) 0.3 Baso # (Auto) 0.1 Abs Immat Gran (auto) 0.06 H Absolute Neuts (auto) 5.1 Absolute Nucleated RBC 0.000 Nucleated RBC % 0.0 Puncture Site Right radial ABG pH 7.518 H* ABG pCO2 39.7 ABG pO2 77.0 L ABG PO2/FiO2 Ratio 2.57 ABG HCO3 31.5 H ABG O2 Saturation 96.5 ABG O2 Content 10.5 L ABG Base Excess 8.0 A-a Gradient 90.3 Oxyhemoglobin 94.4 Carboxyhemoglobin 1.7 Methemoglobin 0.3 Reduced Hemoglobin 3.6 Total Hemoglobin 7.8 L* O2 Delivery Device Ventilator O2 Liters/Min Not Reportable Minute Volume Not Reportable Vent Rate 16 Vent Mode Cmv FiO2 30 Tidal Volume 380 PEEP 8 Peak Inspir Pressure Not Reportable Pressure Support Not Reportable Sodium 145 Potassium 3.5 Chloride 109 H Carbon Dioxide 32 H Anion Gap 4 BUN 33 H Creatinine 0.70 Estim Creat Clear Calc 103 Estimated GFR > 60 Glucose 219 H POC Capillary Glucose 177 H Calcium 7.7 L Phosphorus 3.0 Magnesium 2.3 Total Bilirubin 0.3 AST 84 H ALT 92 H Alkaline Phosphatase 102 Total Protein 6.0 L Albumin 2.4 L 03/12/24 03/12/24 13:09 13:18 WBC 10.5 H RBC 2.62 L Hgb 7.3 L Hct 23.7 L MCV 90.5 MCH 27.9 MCHC 30.8 L RDW 16.3 H Plt Count 153 MPV 11.3 H Immature Gran % (Auto) 0.5 Neut % (Auto) 62.4 Lymph % (Auto) 21.9 [place] % (Auto) 11.2 H Eos % (Auto) 3.5 Baso % (Auto) 0.5 Lymph # (Auto) 2.30 [place] # (Auto) 1.2 H Eos # (Auto) 0.4 H Baso # (Auto) 0.1 Abs Immat Gran (auto) 0.05 H Absolute Neuts (auto) 6.6 Absolute Nucleated RBC 0.000 Nucleated RBC % 0.0 Puncture Site ABG pH ABG pCO2 ABG pO2 ABG PO2/FiO2 Ratio ABG HCO3 ABG O2 Saturation ABG O2 Content ABG Base Excess A-a Gradient Oxyhemoglobin Carboxyhemoglobin Methemoglobin Reduced Hemoglobin Total Hemoglobin O2 Delivery Device O2 Liters/Min Minute Volume Vent Rate Vent Mode FiO2 Tidal Volume PEEP Peak Inspir Pressure Pressure Support Sodium Potassium Chloride Carbon Dioxide Anion Gap BUN Creatinine Estim Creat Clear Calc Estimated GFR Glucose POC Capillary Glucose 157 H Calcium Phosphorus Magnesium Total Bilirubin AST ALT Alkaline Phosphatase Total Protein Albumin Quality VTE Prophylaxis VTE prophylaxis: pharmacologic ordered
--- NOTE | 2024-03-12 13:33 | PM.PNGS ---
Progress Note: A&P Assessment and Plan (1) Amputation of right lower extremity below knee: Qualifiers: Encounter type: subsequent encounter Qualified Code(s): S88.111D - Complete traumatic amputation at level between knee and ankle, right lower leg, subsequent encounter Code(s): S88.111A - Complete traumatic amputation at level between knee and ankle, right lower leg, initial encounter Status: Acute Assessment and Plan: Amputation healing well with dressing changed yesterday. Will keep right lower extremity elevated on pillows with the knee immobilizer in place while he is on the ventilator receiving critical care. Plan to change the dressing again tomorrow. (2) Acute respiratory failure with hypoxia: Code(s): J96.01 - Acute respiratory failure with hypoxia Status: Acute Assessment and Plan: Continues to require mechanical ventilation as he has not passed his breathing trials. Continue critical care management and weaning the ventilator per [employer]. (3) Chronic obstructive pulmonary disease: Code(s): J44.9 - Chronic obstructive pulmonary disease, unspecified Status: Chronic Subjective Subjective Date/Time Seen: 03/12/24 13:33 Post Op day: 7 (Right BKA) Interval history: Patient remains on the ventilator in the ICU. Overall he has made improvements on his ventilator settings since last week and is more awake on the vent. He has not been able to tolerate breathing trials. Amputation dressing changed yesterday. Review of Systems Review of Systems: ROS unobtainable: Yes unobtainable due to endotracheal tube Exam Const: General: comfortable and awake Orientation/consciousness: Other orientation findings (FIDENCIO d/t ET tube) Extrem: Other: Right BKA with dressing dry and intact. Knee immobilizer in place with extremity elevated on pillows. Objective Data Vital Signs Vital Signs: Vital Signs - 24 hr 03/11/24 14:06 03/11/24 14:06 03/11/24 14:00 Temperature Pulse Rate 79 79 78 Respiratory Rate 16 Blood Pressure Pulse Oximetry 100 Oxygen Delivery Mechanical Ventilation Fraction of Inspired Oxygen 30 03/11/24 14:00 03/11/24 14:13 03/11/24 16:00 Temperature 99.3 F Pulse Rate 78 78 92 Respiratory Rate 18 20 Blood Pressure 121/56 L Pulse Oximetry 100 Oxygen Delivery Fraction of Inspired Oxygen 03/11/24 16:00 03/11/24 16:00 03/11/24 16:00 Temperature 99.1 F Pulse Rate 92 92 Respiratory Rate 14 14 Blood Pressure 153/69 H Pulse Oximetry 100 100 Oxygen Delivery Mechanical Ventilation Fraction of Inspired Oxygen 30 30 03/11/24 17:28 03/11/24 18:00 03/11/24 18:00 Temperature 99 F Pulse Rate 89 84 84 Respiratory Rate 20 Blood Pressure 138/60 Pulse Oximetry 99 99 Oxygen Delivery Mechanical Ventilation Fraction of Inspired Oxygen 30 03/11/24 14:30 03/11/24 15:00 03/11/24 15:30 Temperature Pulse Rate 83 93 90 Respiratory Rate 20 20 24 H Blood Pressure Pulse Oximetry Oxygen Delivery Fraction of Inspired Oxygen 03/11/24 16:00 03/11/24 16:30 03/11/24 17:00 Temperature Pulse Rate 92 91 92 Respiratory Rate 14 24 H 21 H Blood Pressure Pulse Oximetry Oxygen Delivery Fraction of Inspired Oxygen 03/11/24 17:30 03/11/24 18:00 03/11/24 19:18 Temperature Pulse Rate 88 84 90 Respiratory Rate 21 H 20 25 H Blood Pressure Pulse Oximetry Oxygen Delivery Fraction of Inspired Oxygen 03/11/24 19:23 03/11/24 19:24 03/11/24 20:00 Temperature Pulse Rate 81 81 84 Respiratory Rate 20 Blood Pressure Pulse Oximetry 100 Oxygen Delivery Mechanical Ventilation Fraction of Inspired Oxygen 30 03/11/24 20:00 03/11/24 20:00 03/11/24 20:00 Temperature 99 F Pulse Rate 84 84 Respiratory Rate 18 18 Blood Pressure 132/57 L Pulse Oximetry 100 100 Oxygen Delivery Mechanical Ventilation Fraction of Inspired Oxygen 30 30 03/11/24 21:22 03/11/24 20:00 03/11/24 21:38 Temperature Pulse Rate 83 83 83 Respiratory Rate 19 18 Blood Pressure Pulse Oximetry Oxygen Delivery Fraction of Inspired Oxygen 03/11/24 21:47 03/11/24 21:55 03/11/24 22:00 Temperature Pulse Rate 80 77 75 Respiratory Rate 18 20 Blood Pressure Pulse Oximetry Oxygen Delivery Fraction of Inspired Oxygen 03/11/24 22:00 03/11/24 22:00 03/11/24 22:40 Temperature 99.2 F Pulse Rate 75 75 76 Respiratory Rate 22 H 22 H Blood Pressure 113/56 L Pulse Oximetry 100 99 Oxygen Delivery Mechanical Ventilation Fraction of Inspired Oxygen 30 03/12/24 00:00 03/12/24 00:00 03/12/24 00:00 Temperature Pulse Rate 77 77 Respiratory Rate 17 Blood Pressure Pulse Oximetry 99 Oxygen Delivery Mechanical Ventilation Fraction of Inspired Oxygen 30 30 03/12/24 00:00 03/12/24 00:00 03/12/24 01:23 Temperature 99.8 F H Pulse Rate 77 77 78 Respiratory Rate 17 17 17 Blood Pressure 126/58 L Pulse Oximetry 99 Oxygen Delivery Fraction of Inspired Oxygen 03/12/24 01:33 03/12/24 01:33 03/12/24 02:00 Temperature Pulse Rate 84 78 84 Respiratory Rate 24 H Blood Pressure Pulse Oximetry 100 Oxygen Delivery Mechanical Ventilation Fraction of Inspired Oxygen 30 03/12/24 02:00 03/12/24 02:00 03/12/24 05:07 Temperature 100 F H Pulse Rate 84 84 83 Respiratory Rate 20 19 Blood Pressure 127/60 Pulse Oximetry 97 98 Oxygen Delivery Mechanical Ventilation Fraction of Inspired Oxygen 30 03/12/24 04:00 03/12/24 06:00 03/12/24 06:33 Temperature Pulse Rate 81 80 78 Respiratory Rate 18 18 14 Blood Pressure Pulse Oximetry Oxygen Delivery Fraction of Inspired Oxygen 03/12/24 06:33 03/12/24 07:25 03/12/24 04:00 Temperature Pulse Rate 78 79 80 Respiratory Rate 14 15 Blood Pressure Pulse Oximetry Oxygen Delivery Fraction of Inspired Oxygen 03/12/24 04:00 03/12/24 04:00 03/12/24 04:00 Temperature 100.3 F H Pulse Rate 80 80 Respiratory Rate 18 18 Blood Pressure 127/64 Pulse Oximetry 96 96 Oxygen Delivery Mechanical Ventilation Fraction of Inspired Oxygen 30 30 03/12/24 06:00 03/12/24 06:00 03/12/24 08:22 Temperature 100.3 F H Pulse Rate 81 81 77 Respiratory Rate 95 H 16 Blood Pressure 110/51 L Pulse Oximetry 15 L Oxygen Delivery Fraction of Inspired Oxygen 03/12/24 08:23 03/12/24 08:43 03/12/24 09:00 Temperature Pulse Rate 77 81 82 Respiratory Rate 18 11 L Blood Pressure Pulse Oximetry 100 Oxygen Delivery Mechanical Ventilation Fraction of Inspired Oxygen 30 03/12/24 09:13 03/12/24 10:00 03/12/24 10:45 Temperature Pulse Rate 80 74 73 Respiratory Rate 8 L 9 L Blood Pressure Pulse Oximetry Oxygen Delivery Fraction of Inspired Oxygen 03/12/24 11:25 03/12/24 08:00 03/12/24 08:00 Temperature Pulse Rate 74 68 74 Respiratory Rate 9 L Blood Pressure Pulse Oximetry 100 100 Oxygen Delivery Mechanical Ventilation Mechanical Ventilation Fraction of Inspired Oxygen 30 30 03/12/24 08:00 03/12/24 08:00 Temperature 99.4 F Pulse Rate 78 Respiratory Rate 17 Blood Pressure 117/58 L Pulse Oximetry 99 Oxygen Delivery Fraction of Inspired Oxygen 30 Intake/Output Intake/Output: Intake & Output 03/09/24 03/10/24 03/11/24 03/12/24 23:59 23:59 23:59 23:59 Intake Total 2981.7 2267.0 2675.2 1929.6 Output Total 1399 334 6266 850 Balance 1281.7 1617.0 850.2 1079.6 Meds/Results Medications: Active Medications Generic Name Dose Route Start Last Admin Trade Name Freq PRN Reason Stop Dose Admin Acetaminophen 500 mg 03/08/24 10:18 03/11/24 14:58 Acetaminophen 500 Mg Tablet FEED TUBE 500 mg Q6H PRN Administration Pain Rated 1-3 Albuterol/Ipratropium 3 ml 02/29/24 02:00 03/12/24 08:18 Ipratropium 0.5 Mg/Albuterol Sulfate 2.5 Mg Ampul.Neb 3 Ml INHALATION 3 ml Q6HRT JASON Administration Alteplase, Recombinant 2 mg 03/06/24 09:45 03/06/24 13:10 Alteplase 2 Mg Vial (Cathflo) IV PUSH 2 mg ONCE PRN Administration Line Occlusion Aspirin 81 mg 03/09/24 08:00 03/12/24 09:13 Aspirin 81 Mg Chewable Tablet FEED TUBE 81 mg DAILY@0800 JASON Administration Atorvastatin Calcium 80 mg 03/09/24 09:00 03/12/24 09:13 Atorvastatin 40 Mg Tablet FEED TUBE 80 mg DAILY JASON Administration Dextrose 12.5 gm 02/28/24 19:23 Dextrose 50% 25 Gm/50 Ml Syringe IV PUSH PRN PRN Hypoglycemia Protocol Glucagon 1 mg 02/28/24 19:23 Glucagon For Inj 1 Mg Vial IM PRN PRN Hypoglycemia Protocol Glucose 15 gm 03/08/24 10:19 Glucose Oral Gel 15 Gm Of Glucse In 37.5 Gm Tube FEED TUBE PRN PRN Hypoglycemia Protocol Heparin Sodium (Porcine) 5,000 units 03/03/24 14:00 03/12/24 06:21 Heparin Sodium 5,000 Units/Ml Vial SUB-Q 5,000 units Q8HR JASON Administration Hydralazine HCl 20 mg 03/08/24 10:06 Hydralazine Hcl 20 Mg/Ml Vial IV PUSH Q4HR PRN Hypertension Dextrose 1,000 mls @ 100 mls/hr 02/28/24 19:23 Dextrose 5% 1,000 Ml IVPB PRN PRN Hypoglycemia Protocol Dexmedetomidine HCl 400 mcg in 100 mls @ 0 mls/hr 03/11/24 21:50 03/12/24 10:45 Precedex 400 Mcg/100 Ml IV CONT 0 mcg/kg/hr .Q0M JASON 0 mls/hr Titration Protocol 0 MCG/KG/HR Insulin Aspart 3 - 6 units 03/01/24 00:00 03/12/24 13:20 Insulin Aspart (*Bkc) 100 Units/Ml SUB-Q Not Given Q6H JASON Protocol Insulin Glargine 45 units 03/09/24 09:00 03/12/24 09:27 Insulin Glargine (*Bkc) 100 Units/Ml SUB-Q 45 units DAILY JASON Administration Labetalol HCl 20 mg 03/08/24 10:06 03/08/24 16:48 Labetalol Hcl Inj 100 Mg/20 Ml Vial IV PUSH 20 mg Q4H PRN Administration SBP > 160 and HR> 60 -1st choice Losartan Potassium 50 mg 03/08/24 10:15 03/12/24 09:13 Losartan Potassium 50 Mg Tablet FEED TUBE 50 mg DAILY JASON Administration Metoprolol Tartrate 50 mg 03/08/24 10:15 03/12/24 09:13 Metoprolol Tartrate 50 Mg Tab FEED TUBE 50 mg Q12HR JASON Administration Multi-Ingred Cream/Lotion/Oil/Oint 1 applic 03/07/24 21:00 03/12/24 09:28 Mineral Oil/White Petrolatum Ointment EACH EYE 1 applic Q12HR JASON Administration Pantoprazole Sodium 40 mg 03/02/24 09:00 03/12/24 09:13 Pantoprazole Sodium Iv 40 Mg Vial IV PUSH 40 mg Q12HR JASON Administration Sodium Chloride 10 ml 02/29/24 06:00 03/12/24 06:29 Central Line Flush IV PUSH 10 ml Q8HR JASON Administration Sodium Chloride 20 ml 02/28/24 23:37 Central Line Flush IV PUSH PRN PRN after blood draws Radiology Results: ITS Impressions Lower Extremity CTA 02/28/24 14:54 IMPRESSION: 1. 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 2. Moderate stenosis of right popliteal artery. 3. Osteomyelitis involving first proximal and distal phalanges and head of first metatarsal. Head CT 02/29/24 05:55 Impression: No intracranial hemorrhage, mass, or acute infarct. Stable chronic encephalomalacia in the high left parietal lobe. Atrophy and chronic white matter changes, as above. Chest/Abdomen/Pelvis CTA 02/29/24 06:02 Impression: Extensive right upper lobe consolidation and more mild right middle lobe consolidation, consistent with pneumonia. Consider aspiration pneumonia. Moderate to large right pleural effusion with complete atelectasis of the right lower lobe. Moderate left pleural effusion with minimal left basilar atelectasis. Small pericardial effusion. No definite acute abnormality in the abdomen or pelvis. Chronic compression fractures, as above. Renal Ultrasound 03/03/24 15:45 IMPRESSION: 1. Normal kidneys without hydronephrosis. 2. Small amount of ascites in the abdomen and pelvis. Thoracentesis Ultrasound 03/08/24 09:35 IMPRESSION: 1. Successful ultrasound-guided thoracentesis yielding 550 mL of clear, yellow fluid. Venous Doppler Study 03/11/24 13:58 IMPRESSION: 1. Patent bilateral upper extremity veins. No evidence of venous thrombosis. Chest X-Ray 03/12/24 06:15 Impression: Probable minimal pulmonary edema. Support tubes, as above. Labs Labs: Laboratory Results - last 24 hr 03/11/24 03/11/24 03/12/24 04:46 17:57 00:28 WBC RBC Hgb Hct MCV MCH MCHC RDW Plt Count MPV Immature Gran % (Auto) Neut % (Auto) Lymph % (Auto) [place] % (Auto) Eos % (Auto) Baso % (Auto) Lymph # (Auto) [place] # (Auto) Eos # (Auto) Baso # (Auto) Abs Immat Gran (auto) Absolute Neuts (auto) Absolute Nucleated RBC Nucleated RBC % Puncture Site ABG pH ABG pCO2 ABG pO2 ABG PO2/FiO2 Ratio ABG HCO3 ABG O2 Saturation ABG O2 Content ABG Base Excess A-a Gradient Oxyhemoglobin Carboxyhemoglobin Methemoglobin Reduced Hemoglobin Total Hemoglobin O2 Delivery Device O2 Liters/Min Minute Volume Not Reportable Vent Rate Vent Mode FiO2 Tidal Volume Not Reportable PEEP Peak Inspir Pressure Pressure Support Not Reportable Sodium Potassium Chloride Carbon Dioxide Anion Gap BUN Creatinine Estim Creat Clear Calc Estimated GFR Glucose POC Capillary Glucose 153 H 227 H Calcium Phosphorus Magnesium Total Bilirubin AST ALT Alkaline Phosphatase Total Protein Albumin 03/12/24 03/12/24 03/12/24 04:56 05:13 09:16 WBC 8.5 RBC 2.60 L Hgb 7.1 L Hct 23.7 L MCV 91.2 MCH 27.3 MCHC 30.0 L RDW 16.5 H Plt Count 143 L MPV 11.5 H Immature Gran % (Auto) 0.7 H Neut % (Auto) 60.5 Lymph % (Auto) 22.6 [place] % (Auto) 12.3 H Eos % (Auto) 3.3 Baso % (Auto) 0.6 Lymph # (Auto) 1.92 [place] # (Auto) 1.0 H Eos # (Auto) 0.3 Baso # (Auto) 0.1 Abs Immat Gran (auto) 0.06 H Absolute Neuts (auto) 5.1 Absolute Nucleated RBC 0.000 Nucleated RBC % 0.0 Puncture Site Right radial ABG pH 7.518 H* ABG pCO2 39.7 ABG pO2 77.0 L ABG PO2/FiO2 Ratio 2.57 ABG HCO3 31.5 H ABG O2 Saturation 96.5 ABG O2 Content 10.5 L ABG Base Excess 8.0 A-a Gradient 90.3 Oxyhemoglobin 94.4 Carboxyhemoglobin 1.7 Methemoglobin 0.3 Reduced Hemoglobin 3.6 Total Hemoglobin 7.8 L* O2 Delivery Device Ventilator O2 Liters/Min Not Reportable Minute Volume Not Reportable Vent Rate 16 Vent Mode Cmv FiO2 30 Tidal Volume 380 PEEP 8 Peak Inspir Pressure Not Reportable Pressure Support Not Reportable Sodium 145 Potassium 3.5 Chloride 109 H Carbon Dioxide 32 H Anion Gap 4 BUN 33 H Creatinine 0.70 Estim Creat Clear Calc 103 Estimated GFR > 60 Glucose 219 H POC Capillary Glucose 177 H Calcium 7.7 L Phosphorus 3.0 Magnesium 2.3 Total Bilirubin 0.3 AST 84 H ALT 92 H Alkaline Phosphatase 102 Total Protein 6.0 L Albumin 2.4 L 03/12/24 03/12/24 13:09 13:18 WBC 10.5 H RBC 2.62 L Hgb 7.3 L Hct 23.7 L MCV 90.5 MCH 27.9 MCHC 30.8 L RDW 16.3 H Plt Count 153 MPV 11.3 H Immature Gran % (Auto) 0.5 Neut % (Auto) 62.4 Lymph % (Auto) 21.9 [place] % (Auto) 11.2 H Eos % (Auto) 3.5 Baso % (Auto) 0.5 Lymph # (Auto) 2.30 [place] # (Auto) 1.2 H Eos # (Auto) 0.4 H Baso # (Auto) 0.1 Abs Immat Gran (auto) 0.05 H Absolute Neuts (auto) 6.6 Absolute Nucleated RBC 0.000 Nucleated RBC % 0.0 Puncture Site ABG pH ABG pCO2 ABG pO2 ABG PO2/FiO2 Ratio ABG HCO3 ABG O2 Saturation ABG O2 Content ABG Base Excess A-a Gradient Oxyhemoglobin Carboxyhemoglobin Methemoglobin Reduced Hemoglobin Total Hemoglobin O2 Delivery Device O2 Liters/Min Minute Volume Vent Rate Vent Mode FiO2 Tidal Volume PEEP Peak Inspir Pressure Pressure Support Sodium Potassium Chloride Carbon Dioxide Anion Gap BUN Creatinine Estim Creat Clear Calc Estimated GFR Glucose POC Capillary Glucose 157 H Calcium Phosphorus Magnesium Total Bilirubin AST ALT Alkaline Phosphatase Total Protein Albumin
[2024-03-12 18:17] LABS: Glucose Point of Care 122 mg/dl (65-105)
--- NOTE | 2024-03-12 18:43 | PC.NURSE ---
Prosource given as ordered.
[2024-03-13] VITALS (35 sets, daily range): BP systolic 88–150; BP diastolic 46–72; PULSE 72–126; RESP 12–41; TEMP 37–38.2; O2SAT 92–100
[2024-03-13 00:37] LABS: Glucose Point of Care 171 mg/dl (65-105)
[2024-03-13] MEDS: IPRATROPIUM 0.5 MG/ALBUTEROL SULFATE 2.5 MG AMPUL.NEB 3 ML INHALATION ×4 (02:15→20:54)
[2024-03-13 05:42] LABS: Base Excess ABG 4.8 mEq/l (+/-2.0); Carboxyhemoglobin 1.3 % THb (0-2.0); Fractional Inspired Oxygen 30 %; Methemoglobin ABG 0.3 %THb (0-1.5); Oxygen Saturation ABG 96.2 % (95.0-100.0); Oxyhemoglobin 93.5 % THb (90.0-100.0); PCO2 ABG 35.6 mmHg (35.0-45.0); PO2 ABG 74.1 mmHg (80.0-100.0); PO2 FiO2 Ratio Arterial Blood 2.47 %; Reduced Hemoglobin 4.9 %THb (0-5.0); Total Hemoglobin 8.3 g/dL (12.0-18.0)
[2024-03-13 05:44] LABS: Device VENTILATOR; Modified Allen's Test Pass; Site Drawn RIGHT RADIAL; pH ABG 7.514 (7.350-7.450)
[2024-03-13 05:45] LABS: Arterial Blood Gas PEEP 5 cmH2O; Arterial Blood Gas Tidal Volume 380 ml; Arterial Blood Gas Vent Mode CMV; Arterial Blood Gas Ventilator rate 16 /MIN
[2024-03-13] MEDS: CENTRAL LINE FLUSH 10 ML IV PUSH ×3 (05:50→21:52)
[2024-03-13 06:14] LABS: Hematocrit 23.7 % (42.0-52.0); Hemoglobin 7.4 g/dL (14.0-18.0); Mean Corpuscular HGB Conc 31.2 g/dl (32-36); Mean Corpuscular Hemoglobin 27.7 pg (26-34); Mean Corpuscular Volume 88.8 fl (80-100); Mean Platelet Volume 11.6 fl (7.4-10.4); Platelet Count Result 175 k/mm3 (150-375); Red Blood Count 2.67 M/mm3 (4.6-6.20); Red Cell Distribution Width 16.6 % (11.5-14.5); White Blood Count 8.8 K/mm3 (4.5-10.0)
[2024-03-13] MEDS: HEPARIN SODIUM 5,000 UNITS/ML VIAL 5000 UNITS SUB-Q ×3 (06:36→21:52)
[2024-03-13 07:20] LABS: Glucose Point of Care 199 mg/dl (65-105)
[2024-03-13 07:24] LABS: Albumin Level 2.4 g/dL (3.5-5.1); Alkaline Phosphatase 722 U/L (38-126); Anion Gap 2 mmol/L (4-12); Bilirubin,Total 1.2 mg/dL (0.2-1.3); Blood Urea Nitrogen 30 mg/dL (9-20); Calcium 7.8 mg/dL (8.4-10.2); Carbon Dioxide 32 mmol/L (22-30); Chloride 108 mmol/L (98-107); Estimated CRCL calculation 92 ml/min; Estimated Glomerular Filt Rate > 60; Glucose 208 mg/dL (65-110); Magnesium 2.3 mg/dL (1.6-2.3); Potassium 3.5 mmol/L (3.4-5.0); Sodium 142 mmol/L (137-145); Triglycerides 88 mg/dL (<150)
[2024-03-13 07:29] LABS: Alanine Aminotransferase 988 U/L (6-50); Aspartate Amino Transferase 2280 U/L (17-59)
[2024-03-13] MEDS: POTASSIUM CHLORIDE 20 MEQ PACKET (FOR LIQUID) 40 MEQ FEED TUBE (09:24)
[2024-03-13] MEDS: ACETAMINOPHEN 500 MG TABLET FEED TUBE (09:24)
[2024-03-13] MEDS: ATORVASTATIN 40 MG TABLET 80 MG FEED TUBE (09:25)
[2024-03-13] MEDS: LOSARTAN POTASSIUM 50 MG TABLET FEED TUBE (09:25)
[2024-03-13] MEDS: MINERAL OIL/WHITE PETROLATUM OINTMENT 1 APPLIC EACH EYE ×2 (09:25→21:52)
[2024-03-13] MEDS: ASPIRIN 81 MG CHEWABLE TABLET FEED TUBE (09:25)
[2024-03-13] MEDS: PANTOPRAZOLE SODIUM IV 40 MG VIAL IV PUSH ×2 (09:25→21:52)
[2024-03-13] MEDS: METOPROLOL TARTRATE 50 MG TAB FEED TUBE (09:25)
[2024-03-13] MEDS: FUROSEMIDE INJ 40 MG/4 ML VIAL IV PUSH (09:27)
[2024-03-13 10:31] LABS: Albumin Level 2.5 g/dL (3.5-5.1); Alkaline Phosphatase 702 U/L (38-126); Bilirubin,Total 0.8 mg/dL (0.2-1.3)
[2024-03-13 10:41] LABS: Alanine Aminotransferase 956 U/L (6-50); Aspartate Amino Transferase 1798 U/L (17-59)
--- NOTE | 2024-03-13 11:29 | WPDINTPN ---
Progress Note: A&P Assessment and Plan (1) Elevated LFTs: Code(s): R79.89 - Other specified abnormal findings of blood chemistry Status: Acute Assessment and Plan: 03/13: Significant elevation in LFTs, AST 2280, ALT 988, alk-phos 722 -patient has been hemodynamically stable, no hypotension noted in the last 24-48 hours -will stop all blood pressure medications and let his pressures run a little high -will stop statin, no other medications that the patient is on that would cause such elevation in his LFTs -no tenderness in the right upper, lower quadrant or epigastric region -check hepatitis panel, right upper quadrant ultrasound with Doppler to rule out hepatic vein thrombosis -GI has been consulted (2) Acute respiratory failure with hypoxia: Code(s): J96.01 - Acute respiratory failure with hypoxia Status: Acute Assessment and Plan: Acute respiratory failure likely related to cardiac arrest, aspiration pneumonia, NSTEMI, hypoxia, septic shock Worsening likely secondary to ARDS versus pulmonary edema -chest x-ray reviewed -continue bronchodilators -on precedex for sedation. Sedation holiday today -03/07 right thoracentesis with 1 L fluid removed -03/08 patient is getting left-sided thoracentesis today -03/11: patient was in pressure support ventilation 02/18, with decrease tidal volumes in the upper 200s. place patient back on CMV, I have asked the bedside RN to decrease the Precedex infusion once patient is more awake will place back on spontaneous breathing trials 03/12: Place patient on SBT 12/5, low tidal volumes, low respiratory rate. Patient had replaced back on CMV mode of ventilation. -even on ASV patient is breathing only 7-8 times a minute 03/13: Off Precedex infusion overnight, placed patient on pressure support ventilation 12/5, initially did well but not significantly tachycardic and tachypneic and in respiratory distress, patient was placed back on CMV mode of ventilation and low-dose was Precedex was restarted 02/28 Chest CTA: Extensive right upper lobe consolidation and more mild right middle lobe consolidation, consistent with pneumonia. Consider aspiration pneumonia.Moderate to large right pleural effusion with complete atelectasis of the right lower lobe. Moderate left pleural effusion with minimal left basilar atelectasis. Small pericardial effusion. No definite acute abnormality in the abdomen or pelvis. Chronic compression fractures, as above (3) Cardiac arrest with pulseless electrical activity: Code(s): I46.9 - Cardiac arrest, cause unspecified Status: Acute Assessment and Plan: Cardiac arrest, secondary to unknown etiology. Possible aspiration pneumonia, NSTEMI, hypoxia, septic shock, infection -see code blue sheet for the details -patient currently intubated, vasopressors for blood pressure support have been weaned off -appreciate cardiology following the patient 02/29/2024 echocardiogram Summary 1. Technically difficult study with limited views. 2. Left ventricular chamber dimension is normal. 3. Left ventricular systolic function is mildly reduced, estimated at 45-50%. The apex appears to be hypokinetic. 4. There is mildly increased left ventricular wall thickness. 5. The left ventricular diastolic function is grade I diastolic dysfunction. 6. Right ventricular systolic function is normal. 7. Left atrial chamber dimension is moderately enlarged. 8. There is mild to moderate tricuspid valve regurgitation. 9. There is small anterior pericardial effusion. (4) Septic shock: Code(s): A41.9 - Sepsis, unspecified organism; R65.21 - Severe sepsis with septic shock Status: Acute Assessment and Plan: Resolved Patient in shock, likely related to the gangrene, aspiration pneumonia, status post cardiac arrest 02/28/2024: Blood cultures have been obtained and negative till now -lactic acid has normalized -patient has been adequately fluid-resuscitated, stress dose steroids and midodrine -blood pressures are now elevated requiring losartan and metoprolol Status post 10 days of antibiotics (5) NSTEMI (non-ST elevated myocardial infarction): Code(s): I21.4 - Non-ST elevation (NSTEMI) myocardial infarction Status: Acute Assessment and Plan: Increasing troponins, -EKG showed sinus rhythm with T-wave changes in V1 to V5 -appreciate cardiology evaluation and recommendation -Continue aspirin and high-dose a statin -will hold Brilinta. Resumption per General surgery -continue beta-brayden, losartan -03/02 heparin infusion was discontinued after 48 hours for NSTEMI by cardiology (6) Gangrene of right foot: Code(s): I96 - Gangrene, not elsewhere classified Status: Acute Assessment and Plan: CTA showed peripheral arterial disease with total occlusion of the right anterior and posterior tibial arteries and right peroneal artery with distal reconstitution of peroneal artery. This extensive gangrene of the right foot with gas seen on CT of the foot. General surgery spoke to the patient in the ER on the day of admission on 02/27 patient at that time agreed for below-knee amputation. Plan was to do a below-knee amputation on 02/29/2024 but patient had a cardiac arrest that night secondary to sepsis. Surgery at that time was deferred. Patient now is intubated sedated and unable to sign his consent.. Patient has no family and for many years at the [facility] has had no visitor. He has 1 son which no one has been able to get hold off right several attempts. Considering patient has gangrene of the foot with no vascular supply leading to sepsis and if untreatable lead to his , Dr. Johns will proceed with amputation today, 03/05/2024. Dr. Collins and Dr. Johns has signed 2 physician consent considering patient's clearly expressed wishes prior to cardiac arrest at the time of admission, his current situation and inability to sign the consent form by himself at this time. 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 Postop management per General surgery -continue antibiotics for necrotizing gas gangrene. Patient on meropenem and vancomycin which was started on 02/28/2024 -complete 5 days of clindamycin 03/13: Discussed with surgery, there is flexion contractures of his amputation which may hinder in him getting prosthetics, patient may require above knee amputation (7) Osteomyelitis of toe of right foot: Code(s): M86.9 - Osteomyelitis, unspecified Status: Chronic Assessment and Plan: As above (8) Peripheral vascular disease: Code(s): I73.9 - Peripheral vascular disease, unspecified Status: Chronic Assessment and Plan: Patient has history of peripheral vascular disease, coronary artery disease -started on aspirin, patient will require Brilinta since he had a STEMI in 2020 but currently holding Brilinta due to surgery and bleeding (9) Type 2 diabetes mellitus: Qualifiers: 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 complication status: with other specified complication 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 custodial insulin use: with ad terminal makeup operator use Qualified Code(s): E11.69 - Type 2 diabetes mellitus with other specified complication; Z79.4 - extermination inspector (current) use of insulin Code(s): E11.9 - Type 2 diabetes mellitus without complications Status: Acute Assessment and Plan: Currently on sliding scale insulin, Accu-Cheks Hemoglobin A1c this admission is 8.2 Continue Lantus (10) Chronic obstructive pulmonary disease: Code(s): J44.9 - Chronic obstructive pulmonary disease, unspecified Status: Chronic Assessment and Plan: Continue DuoNebs -continue Symbicort (11) Electrolyte abnormality: Code(s): E87.8 - Other disorders of electrolyte and fluid balance, not elsewhere classified Status: Acute Assessment and Plan: Hypernatremia, Increase free water flush -sodium levels are elevated but improving Plan DVT prophylaxis: Heparin subQ Stress ulcer prophylaxis: Protonix Nutrition: Tube feeds and Lantus currently on hold for ultrasound abdomen with Doppler. Patient otherwise tolerating his tube feeds, decreased tube feed flushes as he sodium has improved Code Status: Full code. Patient has no family available. There is some indication but no confirmation the patient has a son. No information available at the [facility] where [facility] for [facility] years. Care coordination is trying to locate patient's son but has not been able to find any information despite multiple times Critical Care Time Spent: 34 minutes Due to a high probability of clinically significant, life threatening deterioration, the patient required my highest level of preparedness to intervene emergently and I personally spent this critical care time directly and personally managing the patient. This critical care time included obtaining a history; examining the patient; pulse oximetry; ordering and review of studies; arranging urgent treatment with development of a management plan; evaluation of patient's response to treatment; frequent reassessment; and discussions with other providers. It was exclusive of separately billable procedures and treating other patients and teaching time. Please see Assessment and Plan section and the rest of the note for further information on patient assessment and treatment This dictation may have been done utilizing a voice recognition system. Attempts have been made to correct errors. However, there may be uncorrected grammatical, spelling, and recognitions errors present. Subjective Date/time seen: 03/13/24 11:29 Interval history: Reason for consult: Status post PEA arrest, right foot gangrene with cellulitis, shock 02/27: Intubated 03/05:Right below-knee amputation with placement of posterior Ortho Glass splint 03/13/2024: Patient seen and examined the ICU, remains intubated on CMV mode of ventilation, peep of 5, 30% FiO2. Patient was off Precedex infusion all day yesterday and all night. This morning wakes up, follows simple commands. Placed on pressure support ventilation 04/17, initially did well but then started having tachycardia and tachypnea so was placed back on CMV. Sedated infusion was restarted at a low dose. T-max of 100.8?. Urine output has been adequate, hemodynamically stable. Patient had significant elevation in his liver enzymes this morning, AST 2280, ALT 988, repeat AST was 1798 and ALT 956, alk-phos 722 and 702. Review of Systems Review of Systems: ROS unobtainable: Yes unobtainable due to endotracheal tube, unobtainable due to medical condition and unobtainable due to mental status Exam Narrative: General: Patient intubated and sedated, in no acute distress HEENT:, pupils are equal and reactive from a sclera is clear Neck:? supple Respiratory:? Coarse breath sounds bilaterally, decreased at bases, adequate air entry, no wheezing Cardiac:? S1-S2 normal, regular rate and rhythm Abdomen:? Soft, nontender, nondistended, normoactive bowel sounds Extremities:? Right BKA stump under the dressing. Left dorsalis pedis is dopplerable Neuro:? Patient is intubated, on Precedex infusion opens his eyes spontaneously, follows simple commands Skin:? Patient has maceration of his perianal area, pressure ulcer on his buttocks. Psych:? Unable to assess at this time Objective Data Vital Signs Vital Signs: Vital Signs - 24 hr 03/12/24 13:54 03/12/24 13:54 03/12/24 14:04 Temperature Pulse Rate 81 81 85 Respiratory Rate 24 H 22 H Blood Pressure Pulse Oximetry 99 Oxygen Delivery Mechanical Ventilation Fraction of Inspired Oxygen 03/12/24 12:00 03/12/24 12:00 03/12/24 12:00 Temperature 99.5 F Pulse Rate 79 79 85 Respiratory Rate 10 L 22 H Blood Pressure 123/58 L Pulse Oximetry 99 99 Oxygen Delivery Mechanical Ventilation Fraction of Inspired Oxygen 03/12/24 12:00 03/12/24 14:00 03/12/24 14:00 Temperature 99.4 F Pulse Rate 84 84 Respiratory Rate 21 H Blood Pressure 137/65 Pulse Oximetry 98 Oxygen Delivery Fraction of Inspired Oxygen 03/12/24 14:45 03/12/24 16:00 03/12/24 16:00 Temperature Pulse Rate 97 90 97 Respiratory Rate 22 H Blood Pressure Pulse Oximetry 92 92 Oxygen Delivery Mechanical Ventilation Mechanical Ventilation Fraction of Inspired Oxygen 30 30 03/12/24 16:00 03/12/24 16:00 03/12/24 16:50 Temperature 99.4 F Pulse Rate 90 97 Respiratory Rate 9 L Blood Pressure 147/64 H Pulse Oximetry 91 96 Oxygen Delivery Mechanical Ventilation Fraction of Inspired Oxygen 30 30 03/12/24 18:00 03/12/24 18:00 03/12/24 20:00 Temperature 99.6 F Pulse Rate 95 94 Respiratory Rate 19 Blood Pressure 146/59 H Pulse Oximetry 98 Oxygen Delivery Fraction of Inspired Oxygen 30 03/12/24 20:00 03/12/24 20:00 03/12/24 20:30 Temperature 99.8 F H Pulse Rate 111 H 111 H 106 H Respiratory Rate 16 Blood Pressure 129/60 Pulse Oximetry 98 97 Oxygen Delivery Mechanical Ventilation Fraction of Inspired Oxygen 30 03/12/24 20:30 03/12/24 20:39 03/12/24 21:04 Temperature Pulse Rate 106 H 105 H 108 H Respiratory Rate 20 25 H Blood Pressure Pulse Oximetry Oxygen Delivery Fraction of Inspired Oxygen 03/12/24 22:00 03/12/24 22:00 03/12/24 23:06 Temperature Pulse Rate 84 85 89 Respiratory Rate 18 Blood Pressure 120/60 Pulse Oximetry 100 100 Oxygen Delivery Mechanical Ventilation Fraction of Inspired Oxygen 30 03/13/24 00:00 03/13/24 00:00 03/13/24 00:00 Temperature Pulse Rate 94 Respiratory Rate Blood Pressure Pulse Oximetry Oxygen Delivery Mechanical Ventilation Fraction of Inspired Oxygen 30 30 03/13/24 00:00 03/13/24 02:15 03/13/24 02:15 Temperature 100.8 F H Pulse Rate 94 99 99 Respiratory Rate 16 20 Blood Pressure 150/72 H Pulse Oximetry 98 100 Oxygen Delivery Mechanical Ventilation Fraction of Inspired Oxygen 30 03/13/24 02:23 03/13/24 02:00 03/13/24 04:00 Temperature 100.6 F H Pulse Rate 98 98 Respiratory Rate 20 19 Blood Pressure 133/66 Pulse Oximetry 99 Oxygen Delivery Mechanical Ventilation Fraction of Inspired Oxygen 30 03/13/24 04:00 03/13/24 04:00 03/13/24 04:00 Temperature 100.1 F H Pulse Rate 98 98 Respiratory Rate 18 Blood Pressure 127/64 Pulse Oximetry 99 Oxygen Delivery Fraction of Inspired Oxygen 30 03/13/24 05:43 03/13/24 05:36 03/13/24 05:50 Temperature 99.8 F H Pulse Rate 98 101 H 98 Respiratory Rate 20 22 H Blood Pressure 128/70 Pulse Oximetry 99 97 Oxygen Delivery Mechanical Ventilation Fraction of Inspired Oxygen 30 03/13/24 08:37 03/13/24 08:44 03/13/24 08:54 Temperature Pulse Rate 95 96 94 Respiratory Rate 21 H 26 H Blood Pressure Pulse Oximetry 100 Oxygen Delivery Mechanical Ventilation Fraction of Inspired Oxygen 30 03/13/24 09:11 03/13/24 09:15 03/13/24 09:24 Temperature 99.6 F Pulse Rate 105 H 126 H Respiratory Rate 41 H Blood Pressure Pulse Oximetry 92 Oxygen Delivery Mechanical Ventilation Fraction of Inspired Oxygen 30 03/13/24 09:25 03/13/24 08:00 03/13/24 08:00 Temperature 99.4 F Pulse Rate 101 H 100 100 Respiratory Rate 22 H Blood Pressure 139/69 Pulse Oximetry 100 Oxygen Delivery Fraction of Inspired Oxygen 03/13/24 10:24 03/13/24 11:12 Temperature 99.1 F Pulse Rate 78 Respiratory Rate Blood Pressure Pulse Oximetry 99 Oxygen Delivery Mechanical Ventilation Fraction of Inspired Oxygen 30 Intake/Output Intake/Output: Intake & Output 03/10/24 03/11/24 03/12/24 03/13/24 23:59 23:59 23:59 23:59 Intake Total 2267.0 2675.2 1929.6 1350 Output Total 650 1825 2250 900 Balance 1617.0 850.2 -320.4 450 Meds/Results Medications: Active Medications Generic Name Dose Route Start Last Admin Trade Name Freq PRN Reason Stop Dose Admin Acetaminophen 500 mg 03/08/24 10:18 03/13/24 09:24 Acetaminophen 500 Mg Tablet FEED TUBE 500 mg Q6H PRN Administration Pain Rated 1-3 Albuterol/Ipratropium 3 ml 02/29/24 02:00 03/13/24 08:36 Ipratropium 0.5 Mg/Albuterol Sulfate 2.5 Mg Ampul.Neb 3 Ml INHALATION 3 ml Q6HRT JASON Administration Alteplase, Recombinant 2 mg 03/06/24 09:45 03/06/24 13:10 Alteplase 2 Mg Vial (Cathflo) IV PUSH 2 mg ONCE PRN Administration Line Occlusion Aspirin 81 mg 03/09/24 08:00 03/13/24 09:25 Aspirin 81 Mg Chewable Tablet FEED TUBE 81 mg DAILY@0800 JASON Administration Atorvastatin Calcium 80 mg 03/09/24 09:00 03/13/24 09:25 Atorvastatin 40 Mg Tablet FEED TUBE 80 mg DAILY JASON Administration Dextrose 12.5 gm 02/28/24 19:23 Dextrose 50% 25 Gm/50 Ml Syringe IV PUSH PRN PRN Hypoglycemia Protocol Glucagon 1 mg 02/28/24 19:23 Glucagon For Inj 1 Mg Vial IM PRN PRN Hypoglycemia Protocol Glucose 15 gm 03/08/24 10:19 Glucose Oral Gel 15 Gm Of Glucse In 37.5 Gm Tube FEED TUBE PRN PRN Hypoglycemia Protocol Heparin Sodium (Porcine) 5,000 units 03/03/24 14:00 03/13/24 06:36 Heparin Sodium 5,000 Units/Ml Vial SUB-Q 5,000 units Q8HR JASON Administration Hydralazine HCl 20 mg 03/08/24 10:06 Hydralazine Hcl 20 Mg/Ml Vial IV PUSH Q4HR PRN Hypertension Dextrose 1,000 mls @ 100 mls/hr 02/28/24 19:23 Dextrose 5% 1,000 Ml IVPB PRN PRN Hypoglycemia Protocol Dexmedetomidine HCl 400 mcg in 100 mls @ 4.965 mls/hr 03/11/24 21:50 03/13/24 09:15 Precedex 400 Mcg/100 Ml IV CONT 0.2 mcg/kg/hr .Q20H9M JASON 4.97 mls/hr Titration Protocol 0.2 MCG/KG/HR Insulin Aspart 3 - 6 units 03/01/24 00:00 03/13/24 07:19 Insulin Aspart (*Bkc) 100 Units/Ml SUB-Q Not Given Q6H [facility] Protocol Insulin Glargine 45 units 03/09/24 09:00 03/13/24 09:27 Insulin Glargine (*Bkc) 100 Units/Ml SUB-Q Not Given DAILY [facility] Labetalol HCl 20 mg 03/08/24 10:06 03/08/24 16:48 Labetalol Hcl Inj 100 Mg/20 Ml Vial IV PUSH 20 mg Q4H PRN Administration SBP > 160 and HR> 60 -1st choice Losartan Potassium 50 mg 03/08/24 10:15 03/13/24 09:25 Losartan Potassium 50 Mg Tablet FEED TUBE 50 mg DAILY JASON Administration Metoprolol Tartrate 50 mg 03/08/24 10:15 03/13/24 09:25 Metoprolol Tartrate 50 Mg Tab FEED TUBE 50 mg Q12HR JASON Administration Multi-Ingred Cream/Lotion/Oil/Oint 1 applic 03/07/24 21:00 03/13/24 09:25 Mineral Oil/White Petrolatum Ointment EACH EYE 1 applic Q12HR JASON Administration Pantoprazole Sodium 40 mg 03/02/24 09:00 03/13/24 09:25 Pantoprazole Sodium Iv 40 Mg Vial IV PUSH 40 mg Q12HR JASON Administration Sodium Chloride 10 ml 02/29/24 06:00 03/13/24 05:50 Central Line Flush IV PUSH 10 ml Q8HR JASON Administration Sodium Chloride 20 ml 02/28/24 23:37 Central Line Flush IV PUSH PRN PRN after blood draws Radiology Results: ITS Impressions Lower Extremity CTA 02/28/24 14:54 IMPRESSION: 1. 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 2. Moderate stenosis of right popliteal artery. 3. Osteomyelitis involving first proximal and distal phalanges and head of first metatarsal. Head CT 02/29/24 05:55 Impression: No intracranial hemorrhage, mass, or acute infarct. Stable chronic encephalomalacia in the high left parietal lobe. Atrophy and chronic white matter changes, as above. Chest/Abdomen/Pelvis CTA 02/29/24 06:02 Impression: Extensive right upper lobe consolidation and more mild right middle lobe consolidation, consistent with pneumonia. Consider aspiration pneumonia. Moderate to large right pleural effusion with complete atelectasis of the right lower lobe. Moderate left pleural effusion with minimal left basilar atelectasis. Small pericardial effusion. No definite acute abnormality in the abdomen or pelvis. Chronic compression fractures, as above. Renal Ultrasound 03/03/24 15:45 IMPRESSION: 1. Normal kidneys without hydronephrosis. 2. Small amount of ascites in the abdomen and pelvis. Thoracentesis Ultrasound 03/08/24 09:35 IMPRESSION: 1. Successful ultrasound-guided thoracentesis yielding 550 mL of clear, yellow fluid. Venous Doppler Study 03/11/24 13:58 IMPRESSION: 1. Patent bilateral upper extremity veins. No evidence of venous thrombosis. Chest X-Ray 03/13/24 06:40 Impression: Probable small layering right pleural effusion. Support tubes, as above. Labs Labs: Laboratory Results - last 24 hr 03/12/24 03/12/24 03/12/24 13:09 13:18 18:15 WBC 10.5 H RBC 2.62 L Hgb 7.3 L Hct 23.7 L MCV 90.5 MCH 27.9 MCHC 30.8 L RDW 16.3 H Plt Count 153 MPV 11.3 H Immature Gran % (Auto) 0.5 Neut % (Auto) 62.4 Lymph % (Auto) 21.9 [place] % (Auto) 11.2 H Eos % (Auto) 3.5 Baso % (Auto) 0.5 Lymph # (Auto) 2.30 [place] # (Auto) 1.2 H Eos # (Auto) 0.4 H Baso # (Auto) 0.1 Abs Immat Gran (auto) 0.05 H Absolute Neuts (auto) 6.6 Absolute Nucleated RBC 0.000 Nucleated RBC % 0.0 Puncture Site ABG pH ABG pCO2 ABG pO2 ABG PO2/FiO2 Ratio ABG HCO3 ABG O2 Saturation ABG O2 Content ABG Base Excess A-a Gradient Oxyhemoglobin Carboxyhemoglobin Methemoglobin Reduced Hemoglobin Total Hemoglobin O2 Delivery Device O2 Liters/Min Minute Volume Vent Rate Vent Mode FiO2 Tidal Volume PEEP Peak Inspir Pressure Pressure Support Sodium Potassium Chloride Carbon Dioxide Anion Gap BUN Creatinine Estim Creat Clear Calc Estimated GFR Glucose POC Capillary Glucose 157 H 122 H Calcium Magnesium Total Bilirubin Direct Bilirubin AST ALT Alkaline Phosphatase Total Protein Albumin Triglycerides 03/13/24 03/13/24 03/13/24 00:29 05:35 06:02 WBC 8.8 RBC 2.67 L Hgb 7.4 L Hct 23.7 L MCV 88.8 MCH 27.7 MCHC 31.2 L RDW 16.6 H Plt Count 175 MPV 11.6 H Immature Gran % (Auto) Neut % (Auto) Lymph % (Auto) [place] % (Auto) Eos % (Auto) Baso % (Auto) Lymph # (Auto) [place] # (Auto) Eos # (Auto) Baso # (Auto) Abs Immat Gran (auto) Absolute Neuts (auto) Absolute Nucleated RBC Nucleated RBC % Puncture Site Right radial ABG pH 7.514 H* ABG pCO2 35.6 ABG pO2 74.1 L ABG PO2/FiO2 Ratio 2.47 ABG HCO3 28.0 H ABG O2 Saturation 96.2 ABG O2 Content 11.0 L ABG Base Excess 4.8 A-a Gradient 98.0 Oxyhemoglobin 93.5 Carboxyhemoglobin 1.3 Methemoglobin 0.3 Reduced Hemoglobin 4.9 Total Hemoglobin 8.3 L O2 Delivery Device Ventilator O2 Liters/Min Not Reportable Minute Volume Not Reportable Vent Rate 16 Vent Mode Cmv FiO2 30 Tidal Volume 380 PEEP 5 Peak Inspir Pressure Not Reportable Pressure Support Not Reportable Sodium 142 Potassium 3.5 Chloride 108 H Carbon Dioxide 32 H Anion Gap 2 L BUN 30 H Creatinine 0.80 Estim Creat Clear Calc 92 Estimated GFR > 60 Glucose 208 H POC Capillary Glucose 171 H Calcium 7.8 L Magnesium 2.3 Total Bilirubin 1.2 Direct Bilirubin AST 2280 H ALT 988 H Alkaline Phosphatase 722 H Total Protein 6.0 L Albumin 2.4 L Triglycerides 88 03/13/24 03/13/24 07:18 09:16 WBC RBC Hgb Hct MCV MCH MCHC RDW Plt Count MPV Immature Gran % (Auto) Neut % (Auto) Lymph % (Auto) [place] % (Auto) Eos % (Auto) Baso % (Auto) Lymph # (Auto) [place] # (Auto) Eos # (Auto) Baso # (Auto) Abs Immat Gran (auto) Absolute Neuts (auto) Absolute Nucleated RBC Nucleated RBC % Puncture Site ABG pH ABG pCO2 ABG pO2 ABG PO2/FiO2 Ratio ABG HCO3 ABG O2 Saturation ABG O2 Content ABG Base Excess A-a Gradient Oxyhemoglobin Carboxyhemoglobin Methemoglobin Reduced Hemoglobin Total Hemoglobin O2 Delivery Device O2 Liters/Min Minute Volume Vent Rate Vent Mode FiO2 Tidal Volume PEEP Peak Inspir Pressure Pressure Support Sodium Potassium Chloride Carbon Dioxide Anion Gap BUN Creatinine Estim Creat Clear Calc Estimated GFR Glucose POC Capillary Glucose 199 H Calcium Magnesium Total Bilirubin 0.8 Direct Bilirubin 0.0 AST 1798 H ALT 956 H Alkaline Phosphatase 702 H Total Protein 6.0 L Albumin 2.5 L Triglycerides Quality VTE Prophylaxis VTE prophylaxis: pharmacologic ordered
--- NOTE | 2024-03-13 11:33 | PCFNICU ---
ICU Rounding Note: Pt current nutrition is Glucerna 1.2 at 60 ml/hr with Minh BID and Prosource BID Last recorded weight is 101.6 kg, up from 98 kg on admit. Bowel Motility: FMS Labs Reviewed: Glu 208, BUN 30, Alb 2.4 Meds Noted: NovoLog, Lantus, Precedex Skin: Stage II pressure ulcer-sacrum. Right BKA Additional Notes: Patient failed breathing trial today. Remains on mechanical vent. Tube feedings are being tolerating of Glucerna 1.2 at 60 ml/hr with protein modulars of Minh BID and Presource BID. Flush decreased today to 150 ml q 4 hours due to Na 142 down from 145. Agree with diet orders. Following daily in ICU rounds. Will monitor weight, labs, skin, tube feedings, meds, every Sunday and Sunday.
[2024-03-13 11:49] LABS: Glucose Point of Care 197 mg/dl (65-105)
[2024-03-13 12:32] LABS: Hepatitis B Surface Antigen Negative (Negative)
[2024-03-13 12:38] LABS: HAV RESULT Negative (Negative); Hepatitis B Core IgM Result Negative (Negative)
[2024-03-13 12:49] LABS: Hepatitis C Virus Antibody Negative (Negative)
[2024-03-13] MEDS: dexmedeTOMIDine 400 MCG/100 ML 400 MCG/100 ML BAG 7.45 MCG IV CONT (18:08)
[2024-03-13 18:12] LABS: Glucose Point of Care 190 mg/dl (65-105)
--- NOTE | 2024-03-13 18:45 | P.CONGI_ITS ---
Assessment and Plan Assessment and plan (1) Elevated LFTs: Code(s): R79.89 - Other specified abnormal findings of blood chemistry Status: Acute Assessment and Plan: There are a few causes of transaminase elevation of these levels (>1000). One of them is ischemic hepatopathy. The patient had cardiac arrest and has underlying systolic and diastolic heart failure although not to a dramatic degree but this is an ongoing process. The elevation does not always occur immediately after the event but it can occur several days later on occasions. Passive congestion of the liver might be already occurring, contributing to this event, especially if his liver is already dysfunctional due to chronic alcohol use in the past. Viral hepatitis has already been ruled out. There are no new medications that can explain this abrupt onset elevation. AST being much higher than ALT supports this hypothesis. ultrasound today has ruled out hepatic vein thrombosis or biliary obstruction which can also explain these levels. Suggest continuing respiratory and hemodynamic support, and monitoring not only AST, ALT but also bilirubin and INR. Will continue to follow. (2) Amputation of right lower extremity below knee: Qualifiers: Encounter type: subsequent encounter Qualified Code(s): S88.111D - Complete traumatic amputation at level between knee and ankle, right lower leg, subsequent encounter Code(s): S88.111A - Complete traumatic amputation at level between knee and ankle, right lower leg, initial encounter Status: Acute (3) Type 2 diabetes mellitus: Qualifiers: 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 complication status: with other specified complication 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 usp insulin use: with usp use Qualified Code(s): E11.69 - Type 2 diabetes mellitus with other specified complication; Z79.4 - residential (current) use of insulin Code(s): E11.9 - Type 2 diabetes mellitus without complications Status: Acute (4) Coronary artery disease: Code(s): I25.10 - Atherosclerotic heart disease of crow coronary artery without angina pectoris Status: Acute GI Consult Note Consult date/time: 03/13/24 18:45 Reason for consult: Acute elevation of liver transaminases HPI: Bryan Dunaway is a 68 year old male admitted on 02/29/2024, with a history of poorly-controlled diabetes, COPD, history of alcohol abuse, peripheral vascular disease, coronary artery disease status post stent placement, congestive heart failure with an ejection fraction around 40% and diastolic dysfunction. He came here with severe gangrene of his right lower extremity, undergoing below-knee amputation on 03/02/2023. In addition, during his ho spitalization he has developed acute [place] with cardiac arrest and aspiration pneumonia, currently being intubated. The reason for consultation is the abrupt elevation in liver chemistry: AST 2280, ALT 988. Previous ALT results from ,,30: 77,143,84 respetively. previous AST results from ,,30 : 55,106,92. No jaundice. There is no history PMFSH Past Medical History Medical History Alcohol abuse has abstained for many years Chronic obstructive pulmonary disease COPD (chronic obstructive pulmonary disease) Coronary artery disease COVID-19 Depression Hip fracture, right History of alcoholism HTN (hypertension) Insomnia Peripheral neuropathy Peripheral vascular disease Type 2 diabetes mellitus Surgical History Surgical History History of appendectomy History of coronary artery stent placement History of hip surgery Reconstruction of the right femur History of open reduction and internal fixation (ORIF) procedure repair right femur fracture History of surgery on lower extremity History of tonsillectomy Family History Family History Father Cancer Mother Heart attack Father Cancer Mother Acute myocardial infarction Grandparent 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 Social History Social History Social History: Patient resides at [facility] [place]. He has lived there for the past 7 years. Quit tobacco 12 years ago after smoking 1-1.5 packs per times 30+ years. He has been twice. History of alcoholism but sober for the past 7+ years. History of drug use with cocaine but denies history of IV drug use. He is a full code. He nominated his niece Flaca Abreu be the individual would make medical decisions for him if he is unable. He does have 1 son named Ricky. Smoking status: Former smoker Alcohol intake: former Substance use: former Substance use type: does not use and marijuana Do You Feel Safe in your Home?: Yes Lack of Transportation: No Lack of Food: Never True Current Housing: I Have Housing Concerned About Future Housing: No Difficulty Paying Gas/Electric Bills: No Difficulty Paying for Meds: No Currently Unemployed: No Education: Trade/Vocational Certificate Difficulty w/ Childcare or Family Care: No Living arrangements: senior living Additional living arrangements comments: Pt lives at [facility]. Additional occupation/education comments: Disabled. Spiritual care concerns: No Meds Home Medications and Allergies Home Medications Medication Instructions Recorded Confirmed Type albuterol sulfate 90 mcg/actuation 2 puff inhalation QID #8.5 grams 05/11/19 07/17/20 Rx aerosol inhaler budesonide-formoterol HFA 160 2 puff inhalation Q12H 07/17/20 07/17/20 History mcg-4.5 mcg/actuation aerosol inhaler (Symbicort) calcium carbonate (Tums) 200 mg PO QID PRN Indigestion 07/17/20 07/17/20 History cholecalciferol (vitamin D3) 25 25 mcg PO DAILY 07/17/20 07/17/20 History mcg (1,000 unit) tablet citalopram 20 mg tablet (Celexa) 20 mg PO DAILY 07/17/20 07/17/20 History fluticasone propionate 50 2 spray intranasal DAILY 07/17/20 07/17/20 History mcg/actuation nasal spray,suspension metoprolol succinate 50 mg 50 mg PO DAILY 07/17/20 07/17/20 History tablet,extended release 24 hr zolpidem 10 mg tablet 10 mg PO HS 07/17/20 07/17/20 History aspirin 81 mg chewable tablet 81 mg PO DAILY@0800 #30 tabs 07/19/20 Rx (Children's Aspirin) canagliflozin 100 mg tablet 100 mg PO DAILY@0800 #30 tabs 07/19/20 Rx (Invokana) losartan 25 mg tablet 25 mg PO DAILY #30 tabs 07/19/20 Rx metformin 500 mg tablet 500 mg PO BIDWM #60 tabs 07/19/20 Rx (Glucophage) miconazole nitrate 2 % topical 1 applic topical Q12HR #30 grams 07/19/20 Rx cream rosuvastatin 10 mg tablet (Crestor) 20 mg PO DAILY #30 tabs 07/19/20 Rx ticagrelor 90 mg tablet (Brilinta) 90 mg PO Q12HR #60 tabs 07/19/20 Rx Flonase 2 inh EACH NARE DAILY 02/28/24 02/28/24 History acetaminophen 325 mg tablet 650 mg PO TID 02/28/24 02/28/24 History albuterol sulfate 90 mcg/actuation 2 inh inhalation Q4H PRN Shortness 02/28/24 02/28/24 History aerosol inhaler Of Breath Or Wheezing aspirin 81 mg chewable tablet 81 mg PO DAILY 02/28/24 02/28/24 History (Aspirin Childrens) budesonide-formoterol HFA 160 2 puff inhalation Q12H 02/28/24 02/28/24 History mcg-4.5 mcg/actuation aerosol inhaler (Symbicort) calcium carbonate (Calcium Antacid) 400 mg PO Q6H heartburn 02/28/24 02/28/24 History dapagliflozin propanediol 5 mg 10 mg PO DAILY 02/28/24 02/28/24 History tablet (Farxiga) docusate sodium 100 mg capsule 100 mg PO Q12H 02/28/24 02/28/24 History (Colace) glucagon 1 mg/0.2 mL subcutaneous 1 mg subcut PRN PRN Hypoglycemia 02/28/24 02/28/24 History auto-injector (Gvoke HypoPen 1-Pack) guaifenesin 400 mg tablet 400 mg PO Q6H PRN Cough 02/28/24 02/28/24 History insulin aspart U-100 100 unit/mL 7 unit subcut AC 02/28/24 02/28/24 History subcutaneous solution insulin glargine-yfgn 100 unit/mL 55 unit subcut HS 02/28/24 02/28/24 History (3 mL) subcutaneous pen lanolin alcohols-mineral 1 applic topical Q12H 02/28/24 02/28/24 History oil-w.petrolatum-ceresin topical cream (Eucerin topical cream) losartan 25 mg tablet 25 mg PO DAILY 02/28/24 02/28/24 History metformin 500 mg tablet 500 mg PO BID 02/28/24 02/28/24 History metoprolol succinate 50 mg 50 mg PO DAILY 02/28/24 02/28/24 History tablet,extended release 24 hr multivit with minerals-iron 18 1 tablet PO DAILY 02/28/24 02/28/24 History mg-folic ac 400 mcg-vit K 25 mcg tablet (Adults Multivitamin) polyethylene glycol 3350 17 gram 17 g PO DAILY PRN Constipation 02/28/24 02/28/24 History oral powder packet (Miralax) rosuvastatin 20 mg tablet 20 mg PO DAILY 02/28/24 02/28/24 History ticagrelor 60 mg tablet (Brilinta) 60 mg PO Q12H 02/28/24 02/28/24 History trazodone 50 mg tablet 25 mg PO HS 02/28/24 02/28/24 History Allergies Allergy/AdvReac Type Severity Reaction Status Date / Time No Known Allergies Allergy Verified 02/29/24 12:35 Vital Signs Vital Signs - 24 hr 03/12/24 20:00 03/12/24 20:00 03/12/24 20:00 Temperature 99.8 F H Pulse Rate 111 H 111 H Respiratory Rate 16 Blood Pressure 129/60 Pulse Oximetry 98 Oxygen Delivery Fraction of Inspired Oxygen 30 03/12/24 20:30 03/12/24 20:30 03/12/24 20:39 Temperature Pulse Rate 106 H 106 H 105 H Respiratory Rate 20 25 H Blood Pressure Pulse Oximetry 97 Oxygen Delivery Mechanical Ventilation Fraction of Inspired Oxygen 30 03/12/24 21:04 03/12/24 22:00 03/12/24 22:00 Temperature Pulse Rate 108 H 84 85 Respiratory Rate 18 Blood Pressure 120/60 Pulse Oximetry 100 Oxygen Delivery Fraction of Inspired Oxygen 03/12/24 23:06 03/13/24 00:00 03/13/24 00:00 Temperature Pulse Rate 89 Respiratory Rate Blood Pressure Pulse Oximetry 100 Oxygen Delivery Mechanical Ventilation Mechanical Ventilation Fraction of Inspired Oxygen 30 30 30 03/13/24 00:00 03/13/24 00:00 03/13/24 02:15 Temperature 100.8 F H Pulse Rate 94 94 99 Respiratory Rate 16 Blood Pressure 150/72 H Pulse Oximetry 98 100 Oxygen Delivery Mechanical Ventilation Fraction of Inspired Oxygen 30 03/13/24 02:15 03/13/24 02:23 03/13/24 02:00 Temperature 100.6 F H Pulse Rate 99 98 98 Respiratory Rate 20 20 19 Blood Pressure 133/66 Pulse Oximetry 99 Oxygen Delivery Fraction of Inspired Oxygen 03/13/24 04:00 03/13/24 04:00 03/13/24 04:00 Temperature Pulse Rate 98 Respiratory Rate Blood Pressure Pulse Oximetry Oxygen Delivery Mechanical Ventilation Fraction of Inspired Oxygen 30 30 03/13/24 04:00 03/13/24 05:43 03/13/24 05:36 Temperature 100.1 F H 99.8 F H Pulse Rate 98 98 101 H Respiratory Rate 18 20 Blood Pressure 127/64 128/70 Pulse Oximetry 99 99 97 Oxygen Delivery Mechanical Ventilation Fraction of Inspired Oxygen 30 03/13/24 05:50 03/13/24 08:37 03/13/24 08:44 Temperature Pulse Rate 98 95 96 Respiratory Rate 22 H 21 H Blood Pressure Pulse Oximetry 100 Oxygen Delivery Mechanical Ventilation Fraction of Inspired Oxygen 30 03/13/24 08:54 03/13/24 09:11 03/13/24 09:15 Temperature Pulse Rate 94 105 H 126 H Respiratory Rate 26 H 41 H Blood Pressure Pulse Oximetry 92 Oxygen Delivery Mechanical Ventilation Fraction of Inspired Oxygen 30 03/13/24 09:24 03/13/24 09:25 03/13/24 08:00 Temperature 99.6 F 99.4 F Pulse Rate 101 H 100 Respiratory Rate 22 H Blood Pressure 139/69 Pulse Oximetry 100 Oxygen Delivery Fraction of Inspired Oxygen 03/13/24 08:00 03/13/24 10:24 03/13/24 11:12 Temperature 99.1 F Pulse Rate 100 78 Respiratory Rate Blood Pressure Pulse Oximetry 99 Oxygen Delivery Mechanical Ventilation Fraction of Inspired Oxygen 30 03/13/24 08:00 03/13/24 10:00 03/13/24 10:00 Temperature 99.4 F Pulse Rate 100 76 76 Respiratory Rate 22 H 16 Blood Pressure 112/61 Pulse Oximetry 100 99 Oxygen Delivery Mechanical Ventilation Fraction of Inspired Oxygen 30 03/13/24 08:00 03/13/24 12:00 03/13/24 12:00 Temperature Pulse Rate 80 Respiratory Rate 16 Blood Pressure Pulse Oximetry 100 Oxygen Delivery Mechanical Ventilation Fraction of Inspired Oxygen 30 30 30 03/13/24 10:00 03/13/24 12:00 03/13/24 08:00 Temperature Pulse Rate 98 103 H 96 Respiratory Rate 16 17 20 Blood Pressure Pulse Oximetry Oxygen Delivery Fraction of Inspired Oxygen 03/13/24 14:15 03/13/24 14:26 03/13/24 14:29 Temperature Pulse Rate 76 77 76 Respiratory Rate 17 23 H Blood Pressure Pulse Oximetry 100 Oxygen Delivery Mechanical Ventilation Fraction of Inspired Oxygen 30 03/13/24 14:34 03/13/24 14:00 03/13/24 12:00 Temperature Pulse Rate 76 100 76 Respiratory Rate 18 18 Blood Pressure Pulse Oximetry Oxygen Delivery Fraction of Inspired Oxygen 03/13/24 14:00 03/13/24 12:00 03/13/24 14:00 Temperature 98.9 F Pulse Rate 76 76 76 Respiratory Rate 16 16 Blood Pressure 112/61 107/58 L Pulse Oximetry 99 100 Oxygen Delivery Fraction of Inspired Oxygen 03/13/24 17:03 03/13/24 16:00 03/13/24 16:00 Temperature 98.6 F Pulse Rate 74 78 78 Respiratory Rate 24 H Blood Pressure 97/55 L Pulse Oximetry 100 100 Oxygen Delivery Mechanical Ventilation Fraction of Inspired Oxygen 30 03/13/24 16:00 03/13/24 16:00 03/13/24 18:08 Temperature Pulse Rate 73 74 Respiratory Rate 16 18 Blood Pressure Pulse Oximetry 100 Oxygen Delivery Fraction of Inspired Oxygen 30 03/13/24 18:08 03/13/24 16:00 03/13/24 18:00 Temperature Pulse Rate 74 79 76 Respiratory Rate 18 16 17 Blood Pressure Pulse Oximetry Oxygen Delivery Fraction of Inspired Oxygen Exam Narrative: patient intubated, barely responsive Results Labs 03/13/24 06:02 03/13/24 06:02 Labs: Short CBC 03/13/24 Range/Units 06:02 WBC 8.8 (4.5-10.0) K/mm3 Hgb 7.4 L (14.0-18.0) g/dL Hct 23.7 L (42.0-52.0) % Plt Count 175 (150-375) k/mm3 BMP 03/13/24 06:02 Sodium 142 Potassium 3.5 Chloride 108 H Carbon Dioxide 32 H BUN 30 H Creatinine 0.80 Glucose 208 H Calcium 7.8 L Liver Function 03/13/24 03/13/24 Range/Units 06:02 09:16 Total Bilirubin 1.2 0.8 (0.2-1.3) mg/dL Direct Bilirubin 0.0 (0-0.3) mg/dL AST 2280 H 1798 H (17-59) U/L ALT 988 H 956 H (6-50) U/L Alkaline Phosphatase 722 H 702 H (38-126) U/L Albumin 2.4 L 2.5 L (3.5-5.1) g/dL
[2024-03-14] VITALS (37 sets, daily range): BP systolic 92–162; BP diastolic 46–93; PULSE 74–155; RESP 12–35; TEMP 37.4–38.1; O2SAT 95–100
[2024-03-14] MEDS: IPRATROPIUM 0.5 MG/ALBUTEROL SULFATE 2.5 MG AMPUL.NEB 3 ML INHALATION ×4 (01:32→20:00)
[2024-03-14 05:53] LABS: Alveolar/Arterial O2 Gradient 73.7 mmHg; Base Excess ABG 4.9 mEq/l (+/-2.0); Carboxyhemoglobin 0.9 % THb (0-2.0); Fractional Inspired Oxygen 30 %; HCO3 ABG 28.3 mEq/l (22.0-26.0); Methemoglobin ABG 0.3 %THb (0-1.5); Oxygen Content ABG 14.5 %vol (16.0-22.0); Oxygen Saturation ABG 97.9 % (95.0-100.0); Oxyhemoglobin 96.3 % THb (90.0-100.0); PCO2 ABG 36.9 mmHg (35.0-45.0); PO2 ABG 96.8 mmHg (80.0-100.0); PO2 FiO2 Ratio Arterial Blood 3.23 %; Reduced Hemoglobin 2.5 %THb (0-5.0); Total Hemoglobin 10.6 g/dL (12.0-18.0)
[2024-03-14 05:54] LABS: pH ABG 7.502 (7.350-7.450)
[2024-03-14 05:55] LABS: Arterial Blood Gas PEEP 5 cmH2O; Arterial Blood Gas Tidal Volume 380 ml; Arterial Blood Gas Vent Mode CMV; Arterial Blood Gas Ventilator rate 16 /MIN; Device VENTILATOR; Modified Allen's Test Pass; Site Drawn RIGHT RADIAL
[2024-03-14] MEDS: CENTRAL LINE FLUSH 10 ML IV PUSH ×3 (06:35→21:21)
[2024-03-14] MEDS: HEPARIN SODIUM 5,000 UNITS/ML VIAL 5000 UNITS SUB-Q ×3 (06:35→21:17)
[2024-03-14] MEDS: dexmedeTOMIDine 400 MCG/100 ML 400 MCG/100 ML BAG 7.45 MCG IV CONT (06:41)
[2024-03-14 06:49] LABS: Hematocrit 21.2 % (42.0-52.0); Mean Corpuscular HGB Conc 31.1 g/dl (32-36); Mean Corpuscular Hemoglobin 28.6 pg (26-34); Mean Corpuscular Volume 91.8 fl (80-100); Mean Platelet Volume 12.4 fl (7.4-10.4); Platelet Count Result 167 k/mm3 (150-375); Red Blood Count 2.31 M/mm3 (4.6-6.20); Red Cell Distribution Width 17.2 % (11.5-14.5); White Blood Count 9.7 K/mm3 (4.5-10.0)
[2024-03-14 06:53] LABS: Hemoglobin 6.6 g/dL (14.0-18.0)
[2024-03-14 06:54] LABS: Ammonia < 9 umol/L (9-30)
[2024-03-14 07:08] LABS: Alanine Aminotransferase 587 U/L (6-50); Albumin Level 2.3 g/dL (3.5-5.1); Alkaline Phosphatase 489 U/L (38-126); Anion Gap 5 mmol/L (4-12); Aspartate Amino Transferase 503 U/L (17-59); Bilirubin,Total 0.4 mg/dL (0.2-1.3); Blood Urea Nitrogen 30 mg/dL (9-20); Calcium 7.7 mg/dL (8.4-10.2); Carbon Dioxide 30 mmol/L (22-30); Chloride 107 mmol/L (98-107); Estimated CRCL calculation 92 ml/min; Estimated Glomerular Filt Rate > 60; Glucose 230 mg/dL (65-110); Magnesium 2.4 mg/dL (1.6-2.3); Phosphorus 3.7 mg/dL (2.5-4.5); Potassium 3.8 mmol/L (3.4-5.0); Sodium 142 mmol/L (137-145)
[2024-03-14 07:39] LABS: Glucose Point of Care 198 mg/dl (65-105)
[2024-03-14] MEDS: MINERAL OIL/WHITE PETROLATUM OINTMENT 1 APPLIC EACH EYE (08:43)
[2024-03-14] MEDS: PANTOPRAZOLE SODIUM IV 40 MG VIAL IV PUSH ×2 (08:43→20:12)
[2024-03-14] MEDS: ASPIRIN 81 MG CHEWABLE TABLET FEED TUBE (08:43)
[2024-03-14] MEDS: INSULIN GLARGINE (*BKC) 100 UNITS/ML 45 UNITS SUB-Q (08:45)
--- NOTE | 2024-03-14 09:27 | WPDGIPROGNO ---
Progress Note: A&P Assessment and Plan (1) Elevated LFTs: Code(s): R79.89 - Other specified abnormal findings of blood chemistry Status: Acute Assessment and Plan: The patient's transaminases have improved significantly, bilirubin remains within the normal range. 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 Continue to monitor transaminases, and the other parameters. Please feel free to call as there is any dramatic change in his current status. Subjective Date/time seen: 03/14/24 09:27 Objective Data Vital Signs Vital Signs: Vital Signs - 24 hr 03/13/24 10:24 03/13/24 11:12 03/13/24 10:00 Temperature 99.1 F Pulse Rate 78 76 Respiratory Rate Blood Pressure Pulse Oximetry 99 Oxygen Delivery Mechanical Ventilation Fraction of Inspired Oxygen 03/13/24 10:00 03/13/24 12:00 03/13/24 12:00 Temperature 99.4 F Pulse Rate 76 80 Respiratory Rate 16 16 Blood Pressure 112/61 Pulse Oximetry 99 100 Oxygen Delivery Mechanical Ventilation Fraction of Inspired Oxygen 30 03/13/24 10:00 03/13/24 12:00 03/13/24 14:15 Temperature Pulse Rate 98 103 H 76 Respiratory Rate 16 17 17 Blood Pressure Pulse Oximetry Oxygen Delivery Fraction of Inspired Oxygen 03/13/24 14:26 03/13/24 14:29 03/13/24 14:34 Temperature Pulse Rate 77 76 76 Respiratory Rate 23 H 18 Blood Pressure Pulse Oximetry 100 Oxygen Delivery Mechanical Ventilation Fraction of Inspired Oxygen 03/13/24 14:00 03/13/24 12:00 03/13/24 14:00 Temperature Pulse Rate 100 76 76 Respiratory Rate 18 Blood Pressure Pulse Oximetry Oxygen Delivery Fraction of Inspired Oxygen 03/13/24 12:00 03/13/24 14:00 03/13/24 17:03 Temperature 98.9 F Pulse Rate 76 76 74 Respiratory Rate 16 16 Blood Pressure 112/61 107/58 L Pulse Oximetry 99 100 100 Oxygen Delivery Mechanical Ventilation Fraction of Inspired Oxygen 30 03/13/24 16:00 03/13/24 16:00 03/13/24 16:00 Temperature 98.6 F Pulse Rate 78 78 73 Respiratory Rate 24 H 16 Blood Pressure 97/55 L Pulse Oximetry 100 100 Oxygen Delivery Fraction of Inspired Oxygen 03/13/24 16:00 03/13/24 18:08 03/13/24 18:08 Temperature Pulse Rate 74 74 Respiratory Rate 18 18 Blood Pressure Pulse Oximetry Oxygen Delivery Fraction of Inspired Oxygen 30 03/13/24 16:00 03/13/24 18:00 03/13/24 18:00 Temperature Pulse Rate 79 76 78 Respiratory Rate 16 17 Blood Pressure Pulse Oximetry Oxygen Delivery Fraction of Inspired Oxygen 03/13/24 18:00 03/13/24 20:00 03/13/24 20:00 Temperature 98.9 F Pulse Rate 77 74 Respiratory Rate 24 H 18 Blood Pressure 103/51 L Pulse Oximetry 99 99 Oxygen Delivery Mechanical Ventilation Fraction of Inspired Oxygen 30 30 03/13/24 20:55 03/13/24 20:57 03/13/24 21:02 Temperature Pulse Rate 76 75 72 Respiratory Rate 12 17 Blood Pressure Pulse Oximetry 99 Oxygen Delivery Mechanical Ventilation Fraction of Inspired Oxygen 30 03/13/24 23:20 03/14/24 00:00 03/14/24 00:00 Temperature Pulse Rate 76 76 Respiratory Rate 17 Blood Pressure Pulse Oximetry 100 100 Oxygen Delivery Mechanical Ventilation Mechanical Ventilation Fraction of Inspired Oxygen 30 30 30 03/14/24 01:33 03/14/24 01:35 03/14/24 01:43 Temperature Pulse Rate 74 76 79 Respiratory Rate 17 17 Blood Pressure Pulse Oximetry 100 Oxygen Delivery Mechanical Ventilation Fraction of Inspired Oxygen 30 03/14/24 06:10 03/14/24 06:00 03/13/24 20:00 Temperature Pulse Rate 75 80 77 Respiratory Rate 21 H 23 H Blood Pressure Pulse Oximetry 100 Oxygen Delivery Mechanical Ventilation Fraction of Inspired Oxygen 30 03/13/24 22:00 03/14/24 00:00 03/14/24 02:00 Temperature Pulse Rate 79 75 82 Respiratory Rate 18 20 19 Blood Pressure Pulse Oximetry Oxygen Delivery Fraction of Inspired Oxygen 03/14/24 04:00 03/14/24 06:41 03/14/24 06:41 Temperature Pulse Rate 78 82 80 Respiratory Rate 21 H 21 H 21 H Blood Pressure Pulse Oximetry Oxygen Delivery Fraction of Inspired Oxygen 03/14/24 04:00 03/14/24 04:00 03/13/24 20:00 Temperature Pulse Rate 80 77 Respiratory Rate 21 H Blood Pressure Pulse Oximetry 100 Oxygen Delivery Mechanical Ventilation Fraction of Inspired Oxygen 30 30 03/13/24 22:00 03/14/24 00:00 03/14/24 02:00 Temperature Pulse Rate 80 74 80 Respiratory Rate Blood Pressure Pulse Oximetry Oxygen Delivery Fraction of Inspired Oxygen 03/14/24 04:00 03/14/24 06:00 03/13/24 20:00 Temperature 99 F Pulse Rate 79 80 77 Respiratory Rate 25 H Blood Pressure 95/46 L Pulse Oximetry 100 Oxygen Delivery Fraction of Inspired Oxygen 03/13/24 22:00 03/14/24 00:00 03/14/24 02:00 Temperature 99.2 F 99.4 F 99.7 F H Pulse Rate 79 96 82 Respiratory Rate 20 18 20 Blood Pressure 88/47 L 96/48 L 92/46 L Pulse Oximetry 100 100 97 Oxygen Delivery Fraction of Inspired Oxygen 03/14/24 04:00 03/14/24 06:00 03/14/24 07:40 Temperature 99.7 F H 100 F H Pulse Rate 79 77 79 Respiratory Rate 17 22 H 13 Blood Pressure 96/52 L 100/56 L Pulse Oximetry 100 100 Oxygen Delivery Fraction of Inspired Oxygen 03/14/24 08:40 03/14/24 09:01 03/14/24 09:03 Temperature Pulse Rate 92 89 94 Respiratory Rate 22 H 24 H Blood Pressure Pulse Oximetry 100 Oxygen Delivery Mechanical Ventilation Fraction of Inspired Oxygen 30 03/14/24 09:14 03/14/24 09:23 03/14/24 08:00 Temperature 100.0 F H Pulse Rate 93 95 79 Respiratory Rate 23 H 21 H Blood Pressure 99/53 L Pulse Oximetry 100 100 Oxygen Delivery Mechanical Ventilation Fraction of Inspired Oxygen 30 Intake/Output Intake/Output: Intake & Output 03/11/24 03/12/24 03/13/24 03/14/24 23:59 23:59 23:59 23:59 Intake Total 2675.2 1929.6 2035.4 1680.0 Output Total 1825 2250 2700 500 Balance 850.2 -320.4 -664.6 1180.0 Meds/Results Medications: Active Medications Generic Name Dose Route Start Last Admin Trade Name Freq PRN Reason Stop Dose Admin Acetaminophen 500 mg 03/08/24 10:18 03/13/24 09:24 Acetaminophen 500 Mg Tablet FEED TUBE 500 mg Q6H PRN Administration Pain Rated 1-3 Albuterol/Ipratropium 3 ml 02/29/24 02:00 03/14/24 09:00 Ipratropium 0.5 Mg/Albuterol Sulfate 2.5 Mg Ampul.Neb 3 Ml INHALATION 3 ml Q6HRT JASON Administration Alteplase, Recombinant 2 mg 03/06/24 09:45 03/06/24 13:10 Alteplase 2 Mg Vial (Cathflo) IV PUSH 2 mg ONCE PRN Administration Line Occlusion Aspirin 81 mg 03/09/24 08:00 03/14/24 08:43 Aspirin 81 Mg Chewable Tablet FEED TUBE 81 mg DAILY@0800 JASON Administration Atorvastatin Calcium 80 mg 03/09/24 09:00 03/13/24 09:25 Atorvastatin 40 Mg Tablet FEED TUBE 80 mg DAILY JASON Administration Dextrose 12.5 gm 02/28/24 19:23 Dextrose 50% 25 Gm/50 Ml Syringe IV PUSH PRN PRN Hypoglycemia Protocol Glucagon 1 mg 02/28/24 19:23 Glucagon For Inj 1 Mg Vial IM PRN PRN Hypoglycemia Protocol Glucose 15 gm 03/08/24 10:19 Glucose Oral Gel 15 Gm Of Glucse In 37.5 Gm Tube FEED TUBE PRN PRN Hypoglycemia Protocol Heparin Sodium (Porcine) 5,000 units 03/03/24 14:00 03/14/24 06:35 Heparin Sodium 5,000 Units/Ml Vial SUB-Q 5,000 units Q8HR JASON Administration Hydralazine HCl 20 mg 03/08/24 10:06 Hydralazine Hcl 20 Mg/Ml Vial IV PUSH Q4HR PRN Hypertension Dextrose 1,000 mls @ 100 mls/hr 02/28/24 19:23 Dextrose 5% 1,000 Ml IVPB PRN PRN Hypoglycemia Protocol Dexmedetomidine HCl 400 mcg in 100 mls @ 2.483 mls/hr 03/11/24 21:50 03/14/24 08:40 Precedex 400 Mcg/100 Ml IV CONT 0.1 mcg/kg/hr .[id number] JASON 2.48 mls/hr Titration Protocol 0.1 MCG/KG/HR Sodium Chloride 250 mls @ 30 mls/hr 03/14/24 09:04 Normal Saline Iv IV CONT 03/14/24 17:23 .Q8H20M STA Insulin Aspart 3 - 6 units 03/01/24 00:00 03/14/24 06:35 Insulin Aspart (*Bkc) 100 Units/Ml SUB-Q Not Given Q6H [facility] Protocol Insulin Glargine 55 units 03/15/24 09:00 Insulin Glargine (*Bkc) 100 Units/Ml SUB-Q DAILY [facility] Labetalol HCl 20 mg 03/08/24 10:06 03/08/24 16:48 Labetalol Hcl Inj 100 Mg/20 Ml Vial IV PUSH 20 mg Q4H PRN Administration SBP > 160 and HR> 60 -1st choice Losartan Potassium 50 mg 03/08/24 10:15 03/13/24 09:25 Losartan Potassium 50 Mg Tablet FEED TUBE 50 mg DAILY JASON Administration Metoprolol Tartrate 50 mg 03/08/24 10:15 03/13/24 09:25 Metoprolol Tartrate 50 Mg Tab FEED TUBE 50 mg Q12HR JASON Administration Multi-Ingred Cream/Lotion/Oil/Oint 1 applic 03/07/24 21:00 03/14/24 08:43 Mineral Oil/White Petrolatum Ointment EACH EYE 1 applic Q12HR JASON Administration Pantoprazole Sodium 40 mg 03/02/24 09:00 03/14/24 08:43 Pantoprazole Sodium Iv 40 Mg Vial IV PUSH 40 mg Q12HR JASON Administration Sodium Chloride 10 ml 02/29/24 06:00 03/14/24 06:35 Central Line Flush IV PUSH 10 ml Q8HR JASON Administration Sodium Chloride 20 ml 02/28/24 23:37 Central Line Flush IV PUSH PRN PRN after blood draws Radiology Results: ITS Impressions Lower Extremity CTA 02/28/24 14:54 IMPRESSION: 1. 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 2. Moderate stenosis of right popliteal artery. 3. Osteomyelitis involving first proximal and distal phalanges and head of first metatarsal. Head CT 02/29/24 05:55 Impression: No intracranial hemorrhage, mass, or acute infarct. Stable chronic encephalomalacia in the high left parietal lobe. Atrophy and chronic white matter changes, as above. Chest/Abdomen/Pelvis CTA 02/29/24 06:02 Impression: Extensive right upper lobe consolidation and more mild right middle lobe consolidation, consistent with pneumonia. Consider aspiration pneumonia. Moderate to large right pleural effusion with complete atelectasis of the right lower lobe. Moderate left pleural effusion with minimal left basilar atelectasis. Small pericardial effusion. No definite acute abnormality in the abdomen or pelvis. Chronic compression fractures, as above. Renal Ultrasound 03/03/24 15:45 IMPRESSION: 1. Normal kidneys without hydronephrosis. 2. Small amount of ascites in the abdomen and pelvis. Thoracentesis Ultrasound 03/08/24 09:35 IMPRESSION: 1. Successful ultrasound-guided thoracentesis yielding 550 mL of clear, yellow fluid. Venous Doppler Study 03/11/24 13:58 IMPRESSION: 1. Patent bilateral upper extremity veins. No evidence of venous thrombosis. Abdomen Ultrasound 03/13/24 16:52 IMPRESSION: 1. No etiology for abnormal liver function tests. 2. Normal hepatic veins and main portal vein. Right and left portal veins and proper hepatic artery not evaluated. 3. Right pleural effusion. Vascular Ultrasound 03/13/24 16:52 IMPRESSION: 1. No etiology for abnormal liver function tests. 2. Normal hepatic veins and main portal vein. Right and left portal veins and proper hepatic artery not evaluated. 3. Right pleural effusion. Chest X-Ray 03/14/24 06:46 Impression: Probable small layering right pleural effusion. Support tubes, as above. Labs Labs: Laboratory Results - last 24 hr 03/13/24 03/13/24 03/13/24 09:16 11:47 18:10 WBC RBC Hgb Hct MCV MCH MCHC RDW Plt Count MPV Puncture Site ABG pH ABG pCO2 ABG pO2 ABG PO2/FiO2 Ratio ABG HCO3 ABG O2 Saturation ABG O2 Content ABG Base Excess A-a Gradient Oxyhemoglobin Carboxyhemoglobin Methemoglobin Reduced Hemoglobin Total Hemoglobin O2 Delivery Device O2 Liters/Min Minute Volume Vent Rate Vent Mode FiO2 Tidal Volume PEEP Peak Inspir Pressure Pressure Support Sodium Potassium Chloride Carbon Dioxide Anion Gap BUN Creatinine Estim Creat Clear Calc Estimated GFR Glucose POC Capillary Glucose 197 H 190 H Calcium Phosphorus Magnesium Total Bilirubin 0.8 Direct Bilirubin 0.0 AST 1798 H ALT 956 H Alkaline Phosphatase 702 H Ammonia Total Protein 6.0 L Albumin 2.5 L Hepatitis A IgM Ab Negative Hep Bs Antigen Negative Hep B Core IgM Ab Negative Hepatitis C Ab Screen Negative 03/14/24 03/14/24 03/14/24 05:32 06:21 06:30 WBC 9.7 RBC 2.31 L Hgb 6.6 L* Hct 21.2 L MCV 91.8 MCH 28.6 MCHC 31.1 L RDW 17.2 H Plt Count 167 MPV 12.4 H Puncture Site Right radial ABG pH 7.502 H* ABG pCO2 36.9 ABG pO2 96.8 ABG PO2/FiO2 Ratio 3.23 ABG HCO3 28.3 H ABG O2 Saturation 97.9 ABG O2 Content 14.5 L ABG Base Excess 4.9 A-a Gradient 73.7 Oxyhemoglobin 96.3 Carboxyhemoglobin 0.9 Methemoglobin 0.3 Reduced Hemoglobin 2.5 Total Hemoglobin 10.6 L O2 Delivery Device Ventilator O2 Liters/Min Not Reportable Minute Volume Not Reportable Vent Rate 16 Vent Mode Cmv FiO2 30 Tidal Volume 380 PEEP 5 Peak Inspir Pressure Not Reportable Pressure Support Not Reportable Sodium Potassium Chloride Carbon Dioxide Anion Gap BUN Creatinine Estim Creat Clear Calc Estimated GFR Glucose POC Capillary Glucose 198 H Calcium Phosphorus Magnesium Total Bilirubin Direct Bilirubin AST ALT Alkaline Phosphatase Ammonia Total Protein Albumin Hepatitis A IgM Ab Hep Bs Antigen Hep B Core IgM Ab Hepatitis C Ab Screen 03/14/24 06:31 WBC RBC Hgb Hct MCV MCH MCHC RDW Plt Count MPV Puncture Site ABG pH ABG pCO2 ABG pO2 ABG PO2/FiO2 Ratio ABG HCO3 ABG O2 Saturation ABG O2 Content ABG Base Excess A-a Gradient Oxyhemoglobin Carboxyhemoglobin Methemoglobin Reduced Hemoglobin Total Hemoglobin O2 Delivery Device O2 Liters/Min Minute Volume Vent Rate Vent Mode FiO2 Tidal Volume PEEP Peak Inspir Pressure Pressure Support Sodium 142 Potassium 3.8 Chloride 107 Carbon Dioxide 30 Anion Gap 5 BUN 30 H Creatinine 0.80 Estim Creat Clear Calc 92 Estimated GFR > 60 Glucose 230 H POC Capillary Glucose Calcium 7.7 L Phosphorus 3.7 Magnesium 2.4 H Total Bilirubin 0.4 Direct Bilirubin AST 503 H ALT 587 H Alkaline Phosphatase 489 H Ammonia < 9 L Total Protein 6.0 L Albumin 2.3 L Hepatitis A IgM Ab Hep Bs Antigen Hep B Core IgM Ab Hepatitis C Ab Screen
[2024-03-14] MEDS: INSULIN GLARGINE (*BKC) 100 UNITS/ML 10 UNITS SUB-Q (09:31)
--- NOTE | 2024-03-14 10:35 | P.PNINT_ITS ---
Progress Note: A&P Assessment and Plan (1) Elevated LFTs: Code(s): R79.89 - Other specified abnormal findings of blood chemistry Status: Acute Assessment and Plan: 03/13: Significant elevation in LFTs, AST 2280, ALT 988, alk-phos 722 -patient has been hemodynamically stable, no hypotension noted in the last 24-48 hours -statin discontinued. Hold Tylenol -no tenderness in the right upper, lower quadrant or epigastric region on exam -negative vital hepatitis panel, right upper quadrant ultrasound with Doppler negative for hepatic or portal vein thrombosis -patient evaluated by GI -levels improving. Monitor (2) Acute respiratory failure with hypoxia: Code(s): J96.01 - Acute respiratory failure with hypoxia Status: Acute Assessment and Plan: Acute respiratory failure likely related to cardiac arrest, aspiration pneumonia, NSTEMI, hypoxia, septic shock Worsening likely secondary to ARDS versus pulmonary edema Intubated 02/27 02/28 Chest CTA: Extensive right upper lobe consolidation and more mild right middle lobe consolidation, consistent with pneumonia. Consider aspiration pneumonia.Moderate to large right pleural effusion with complete atelectasis of the right lower lobe. Moderate left pleural effusion with minimal left basilar atelectasis. Small pericardial effusion. No definite acute abnormality in the abdomen or pelvis. Chronic compression fractures, as above . -03/07 right thoracentesis with 1 L fluid removed -03/08 left-sided thoracentesis 550 mL -03/11: patient was in pressure support ventilation 02/18, with decrease tidal volumes in the upper 200s. place patient back on CMV, I have asked the bedside RN to decrease the Precedex infusion once patient is more awake will place back on spontaneous breathing trials 03/12: Place patient on SBT 04/17, low tidal volumes, low respiratory rate. Patient had replaced back on CMV mode of ventilation. -even on ASV patient is breathing only 7-8 times a minute 03/13: Off Precedex infusion overnight, placed patient on pressure support ventilation 04/17, initially did well but not significantly tachycardic and tachypneic and in respiratory distress, patient was placed back on CMV mode of ventilation and low-dose was 11 8/5 PSV SBT done for more than 1 hour. RSBI, and Vitals acceptable. Pt awake and following commands. Will obtain ABG and evaluate for extubation. -continue bronchodilators -on precedex for sedation (3) Cardiac arrest with pulseless electrical activity: Code(s): I46.9 - Cardiac arrest, cause unspecified Status: Acute Assessment and Plan: Cardiac arrest, secondary to unknown etiology. Possible aspiration pneumonia, NSTEMI, hypoxia, septic shock, infection -see code blue sheet for the details -patient currently intubated, vasopressors for blood pressure support have been weaned off -appreciate cardiology following the patient 02/29/2024 echocardiogram Summary 1. Technically difficult study with limited views. 2. Left ventricular chamber dimension is normal. 3. Left ventricular systolic function is mildly reduced, estimated at 45-50%. The apex appears to be hypokinetic. 4. There is mildly increased left ventricular wall thickness. 5. The left ventricular diastolic function is grade I diastolic dysfunction. 6. Right ventricular systolic function is normal. 7. Left atrial chamber dimension is moderately enlarged. 8. There is mild to moderate tricuspid valve regurgitation. 9. There is small anterior pericardial effusion. (4) Septic shock: Code(s): A41.9 - Sepsis, unspecified organism; R65.21 - Severe sepsis with septic shock Status: Acute Assessment and Plan: Resolved Patient in shock, likely related to the gangrene, aspiration pneumonia, status post cardiac arrest 02/28/2024: Blood cultures have been obtained and negative till now -lactic acid has normalized -patient has been adequately fluid-resuscitated, stress dose steroids and midodrine -blood pressures are now elevated requiring losartan and metoprolol Status post 10 days of antibiotics (5) NSTEMI (non-ST elevated myocardial infarction): Code(s): I21.4 - Non-ST elevation (NSTEMI) myocardial infarction Status: Acute Assessment and Plan: Increasing troponins, -EKG showed sinus rhythm with T-wave changes in V1 to V5 -appreciate cardiology evaluation and recommendation -Continue aspirin and high-dose a statin -will hold Brilinta. Resumption per General surgery - beta-brayden, losartan are on hold -03/02 heparin infusion was discontinued after 48 hours for NSTEMI by cardiology (6) Gangrene of right foot: Code(s): I96 - Gangrene, not elsewhere classified Status: Acute Assessment and Plan: CTA showed peripheral arterial disease with total occlusion of the right anterior and posterior tibial arteries and right peroneal artery with distal reconstitution of peroneal artery. This extensive gangrene of the right foot with gas seen on CT of the foot. General surgery spoke to the patient in the ER on the day of admission on 02/27 patient at that time agreed for below-knee amputation. Plan was to do a below- knee amputation on 02/29/2024 but patient had a cardiac arrest that night secondary to sepsis. Surgery at that time was deferred. Patient now is intubated sedated and unable to sign his consent.. Patient has no family and for many years at the [facility] has had no visitor. He has 1 son which no one has been able to get hold off right several attempts. Considering patient has gangrene of the foot with no vascular supply leading to sepsis and if untreatable lead to his , Dr. Johns will proceed with amputation today, 03/05/2024. Dr. Collins and Dr. Johns has signed 2 physician consent considering patient's clearly expressed wishes prior to cardiac arrest at the time of admission, his current situation and inability to sign the consent form by himself at this time. 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 Postop management per General surgery -continue antibiotics for necrotizing gas gangrene. Patient on meropenem and vancomycin which was started on 02/28/2024 -complete 5 days of clindamycin 03/13: Discussed with surgery, there is flexion contractures of his amputation which may hinder in him getting prosthetics, patient may require above knee amputation (7) Osteomyelitis of toe of right foot: Code(s): M86.9 - Osteomyelitis, unspecified Status: Chronic Assessment and Plan: As above (8) Peripheral vascular disease: Code(s): I73.9 - Peripheral vascular disease, unspecified Status: Chronic Assessment and Plan: Patient has history of peripheral vascular disease, coronary artery disease -started on aspirin, patient will require Brilinta since he had a STEMI in 2020 but currently holding Brilinta due to surgery and bleeding (9) Type 2 diabetes mellitus: Qualifiers: 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 complication status: with other specified complication 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 Qualified Code(s): E11.69 - Type 2 diabetes mellitus with other specified complication; Z79.4 - termination clerk (current) use of insulin Code(s): E11.9 - Type 2 diabetes mellitus without complications Status: Acute Assessment and Plan: Currently on sliding scale insulin, Accu-Cheks Hemoglobin A1c this admission is 8.2 Continue Lantus (10) Chronic obstructive pulmonary disease: Code(s): J44.9 - Chronic obstructive pulmonary disease, unspecified Status: Chronic Assessment and Plan: Continue DuoNebs -continue Symbicort (11) Electrolyte abnormality: Code(s): E87.8 - Other disorders of electrolyte and fluid balance, not elsewhere classified Status: Acute Assessment and Plan: Hypernatremia, Increase free water flush -sodium levels are elevated but improving Plan DVT prophylaxis: Heparin subQ Stress ulcer prophylaxis: Protonix Nutrition: Tube feeds and Lantus currently on hold for ultrasound abdomen with Doppler. Patient otherwise tolerating his tube feeds, decreased tube feed flushes as he sodium has improved Code Status: Full code. Patient has no family available. There is some indication but no confirmation the patient has a son. No information available at the [facility] where he lived for 11 years. Care coordination is trying to locate patient's son but has not been able to find any information despite multiple times Critical Care Time Spent: 32 minutes Due to a high probability of clinically significant, life threatening deterioration, the patient required my highest level of preparedness to intervene emergently and I personally spent this critical care time directly and personally managing the patient. This critical care time included obtaining a history; examining the patient; pulse oximetry; ordering and review of studies; arranging urgent treatment with development of a management plan; evaluation of patient's response to treatment; frequent reassessment; and discussions with other providers. It was exclusive of separately billable procedures and treating other patients and teaching time. Please see Assessment and Plan section and the rest of the note for further information on patient assessment and treatment This dictation may have been done utilizing a voice recognition system. Attempts have been made to correct errors. However, there may be uncorrected grammatical, spelling, and recognitions errors present. Subjective Date/time seen: 03/14/24 Overnight events reviewed. Low-grade fever this morning Continues to be on mechanical ventilation 30% FiO2 Acceptable urine output. Tolerating tube feeds Continues to be sedated with Precedex Other Vitals acceptable Interval history: Reason for consult: Status post PEA arrest, right foot gangrene with cellulitis, shock 02/27: Intubated 03/05:Right below-knee amputation with placement of posterior Ortho Glass splint Review of Systems Review of Systems: ROS unobtainable: Yes unobtainable due to endotracheal tube, unobtainable due to medical condition and unobtainable due to mental status Exam Narrative: General: Patient intubated and sedated, in no acute distress HEENT:, pupils are equal and reactive from a sclera is clear Neck:? supple Respiratory:? Coarse breath sounds bilaterally, decreased at bases, adequate air entry, no wheezing Cardiac:? S1-S2 normal, regular rate and rhythm Abdomen:? Soft, nontender, nondistended, normoactive bowel sounds Extremities:? Right BKA stump under the dressing. Left dorsalis pedis is dopplerable Neuro:? Patient is intubated, on Precedex infusion opens his eyes spontaneously, follows simple commands Skin:? Patient has maceration of his perianal area, pressure ulcer on his buttocks. Psych:? Unable to assess at this time Objective Data Vital Signs Vital Signs: Vital Signs - 24 hr 03/13/24 11:12 03/13/24 12:00 03/13/24 12:00 Temperature Pulse Rate 78 80 Respiratory Rate 16 Blood Pressure Pulse Oximetry 99 100 Oxygen Delivery Mechanical Ventilation Mechanical Ventilation Fraction of Inspired Oxygen 30 30 30 03/13/24 12:00 03/13/24 14:15 03/13/24 14:26 Temperature Pulse Rate 103 H 76 77 Respiratory Rate 17 17 23 H Blood Pressure Pulse Oximetry Oxygen Delivery Fraction of Inspired Oxygen 03/13/24 14:29 03/13/24 14:34 03/13/24 14:00 Temperature Pulse Rate 76 76 100 Respiratory Rate 18 18 Blood Pressure Pulse Oximetry 100 Oxygen Delivery Mechanical Ventilation Fraction of Inspired Oxygen 30 03/13/24 12:00 03/13/24 14:00 03/13/24 12:00 Temperature 37.2 C Pulse Rate 76 76 76 Respiratory Rate 16 Blood Pressure 112/61 Pulse Oximetry 99 Oxygen Delivery Fraction of Inspired Oxygen 03/13/24 14:00 03/13/24 17:03 03/13/24 16:00 Temperature Pulse Rate 76 74 78 Respiratory Rate 16 Blood Pressure 107/58 L Pulse Oximetry 100 100 Oxygen Delivery Mechanical Ventilation Fraction of Inspired Oxygen 30 03/13/24 16:00 03/13/24 16:00 03/13/24 16:00 Temperature 37.0 C Pulse Rate 78 73 Respiratory Rate 24 H 16 Blood Pressure 97/55 L Pulse Oximetry 100 100 Oxygen Delivery Fraction of Inspired Oxygen 30 03/13/24 18:08 03/13/24 18:08 03/13/24 16:00 Temperature Pulse Rate 74 74 79 Respiratory Rate 18 18 16 Blood Pressure Pulse Oximetry Oxygen Delivery Fraction of Inspired Oxygen 03/13/24 18:00 03/13/24 18:00 03/13/24 18:00 Temperature 37.2 C Pulse Rate 76 78 77 Respiratory Rate 17 24 H Blood Pressure 103/51 L Pulse Oximetry 99 Oxygen Delivery Fraction of Inspired Oxygen 03/13/24 20:00 03/13/24 20:00 03/13/24 20:55 Temperature Pulse Rate 74 76 Respiratory Rate 18 12 Blood Pressure Pulse Oximetry 99 Oxygen Delivery Mechanical Ventilation Fraction of Inspired Oxygen 30 30 03/13/24 20:57 03/13/24 21:02 03/13/24 23:20 Temperature Pulse Rate 75 72 76 Respiratory Rate 17 Blood Pressure Pulse Oximetry 99 100 Oxygen Delivery Mechanical Ventilation Mechanical Ventilation Fraction of Inspired Oxygen 30 30 03/14/24 00:00 03/14/24 00:00 03/14/24 01:33 Temperature Pulse Rate 76 74 Respiratory Rate 17 17 Blood Pressure Pulse Oximetry 100 Oxygen Delivery Mechanical Ventilation Fraction of Inspired Oxygen 30 30 03/14/24 01:35 03/14/24 01:43 03/14/24 06:10 Temperature Pulse Rate 76 79 75 Respiratory Rate 17 Blood Pressure Pulse Oximetry 100 100 Oxygen Delivery Mechanical Ventilation Mechanical Ventilation Fraction of Inspired Oxygen 30 30 03/14/24 06:00 03/13/24 20:00 03/13/24 22:00 Temperature Pulse Rate 80 77 79 Respiratory Rate 21 H 23 H 18 Blood Pressure Pulse Oximetry Oxygen Delivery Fraction of Inspired Oxygen 03/14/24 00:00 03/14/24 02:00 03/14/24 04:00 Temperature Pulse Rate 75 82 78 Respiratory Rate 20 19 21 H Blood Pressure Pulse Oximetry Oxygen Delivery Fraction of Inspired Oxygen 03/14/24 06:41 03/14/24 06:41 03/14/24 04:00 Temperature Pulse Rate 82 80 80 Respiratory Rate 21 H 21 H 21 H Blood Pressure Pulse Oximetry 100 Oxygen Delivery Mechanical Ventilation Fraction of Inspired Oxygen 30 03/14/24 04:00 03/13/24 20:00 03/13/24 22:00 Temperature Pulse Rate 77 80 Respiratory Rate Blood Pressure Pulse Oximetry Oxygen Delivery Fraction of Inspired Oxygen 30 03/14/24 00:00 03/14/24 02:00 03/14/24 04:00 Temperature Pulse Rate 74 80 79 Respiratory Rate Blood Pressure Pulse Oximetry Oxygen Delivery Fraction of Inspired Oxygen 03/14/24 06:00 03/13/24 20:00 03/13/24 22:00 Temperature 37.2 C 37.3 C Pulse Rate 80 77 79 Respiratory Rate 25 H 20 Blood Pressure 95/46 L 88/47 L Pulse Oximetry 100 100 Oxygen Delivery Fraction of Inspired Oxygen 03/14/24 00:00 03/14/24 02:00 03/14/24 04:00 Temperature 37.4 C 37.6 C H 37.6 C H Pulse Rate 96 82 79 Respiratory Rate 18 20 17 Blood Pressure 96/48 L 92/46 L 96/52 L Pulse Oximetry 100 97 100 Oxygen Delivery Fraction of Inspired Oxygen 03/14/24 06:00 03/14/24 07:40 03/14/24 08:40 Temperature 37.7 C H Pulse Rate 77 79 92 Respiratory Rate 22 H 13 22 H Blood Pressure 100/56 L Pulse Oximetry 100 Oxygen Delivery Fraction of Inspired Oxygen 03/14/24 09:01 03/14/24 09:03 03/14/24 09:14 Temperature Pulse Rate 89 94 93 Respiratory Rate 24 H 23 H Blood Pressure Pulse Oximetry 100 Oxygen Delivery Mechanical Ventilation Fraction of Inspired Oxygen 30 03/14/24 09:23 03/14/24 08:00 03/14/24 08:00 Temperature 37.8 C H Pulse Rate 95 79 Respiratory Rate 21 H Blood Pressure 99/53 L Pulse Oximetry 100 100 Oxygen Delivery Mechanical Ventilation Fraction of Inspired Oxygen 30 30 03/14/24 10:00 03/14/24 08:00 03/14/24 10:00 Temperature 37.8 C H Pulse Rate 94 102 H 93 Respiratory Rate 14 Blood Pressure 111/58 L Pulse Oximetry 100 Oxygen Delivery Fraction of Inspired Oxygen 03/14/24 08:00 03/14/24 10:00 Temperature Pulse Rate 82 94 Respiratory Rate 12 16 Blood Pressure Pulse Oximetry Oxygen Delivery Fraction of Inspired Oxygen Intake/Output Intake/Output: Intake & Output 03/11/24 03/12/24 03/13/24 03/14/24 23:59 23:59 23:59 23:59 Intake Total 2675.2 1929.6 2035.4 1683.3 Output Total 1825 2250 2700 500 Balance 850.2 -320.4 -664.6 1183.3 Meds/Results Medications: Active Medications Generic Name Dose Route Start Last Admin Trade Name Freq PRN Reason Stop Dose Admin Acetaminophen 500 mg 03/08/24 10:18 03/13/24 09:24 Acetaminophen 500 Mg Tablet FEED TUBE 500 mg Q6H PRN Administration Pain Rated 1-3 Albuterol/Ipratropium 3 ml 02/29/24 02:00 03/14/24 09:00 Ipratropium 0.5 Mg/Albuterol Sulfate 2.5 Mg Ampul.Neb 3 Ml INHALATION 3 ml Q6HRT JASON Administration Alteplase, Recombinant 2 mg 03/06/24 09:45 03/06/24 13:10 Alteplase 2 Mg Vial (Cathflo) IV PUSH 2 mg ONCE PRN Administration Line Occlusion Aspirin 81 mg 03/09/24 08:00 03/14/24 08:43 Aspirin 81 Mg Chewable Tablet FEED TUBE 81 mg DAILY@0800 JASON Administration Atorvastatin Calcium 80 mg 03/09/24 09:00 03/13/24 09:25 Atorvastatin 40 Mg Tablet FEED TUBE 80 mg DAILY JASON Administration Dextrose 12.5 gm 02/28/24 19:23 Dextrose 50% 25 Gm/50 Ml Syringe IV PUSH PRN PRN Hypoglycemia Protocol Glucagon 1 mg 02/28/24 19:23 Glucagon For Inj 1 Mg Vial IM PRN PRN Hypoglycemia Protocol Glucose 15 gm 03/08/24 10:19 Glucose Oral Gel 15 Gm Of Glucse In 37.5 Gm Tube FEED TUBE PRN PRN Hypoglycemia Protocol Heparin Sodium (Porcine) 5,000 units 03/03/24 14:00 03/14/24 06:35 Heparin Sodium 5,000 Units/Ml Vial SUB-Q 5,000 units Q8HR JASON Administration Hydralazine HCl 20 mg 03/08/24 10:06 Hydralazine Hcl 20 Mg/Ml Vial IV PUSH Q4HR PRN Hypertension Dextrose 1,000 mls @ 100 mls/hr 02/28/24 19:23 Dextrose 5% 1,000 Ml IVPB PRN PRN Hypoglycemia Protocol Dexmedetomidine HCl 400 mcg in 100 mls @ 2.483 mls/hr 03/11/24 21:50 03/14/24 10:00 Precedex 400 Mcg/100 Ml IV CONT 0.1 mcg/kg/hr .[id number] JASON 2.48 mls/hr Titration Protocol 0.1 MCG/KG/HR Sodium Chloride 250 mls @ 30 mls/hr 03/14/24 09:04 Normal Saline Iv IV CONT 03/14/24 17:23 .Q8H20M STA Insulin Aspart 3 - 6 units 03/01/24 00:00 03/14/24 06:35 Insulin Aspart (*Bkc) 100 Units/Ml SUB-Q Not Given Q6H [facility] Protocol Insulin Glargine 55 units 03/15/24 09:00 Insulin Glargine (*Bkc) 100 Units/Ml SUB-Q DAILY JASON Labetalol HCl 20 mg 03/08/24 10:06 03/08/24 16:48 Labetalol Hcl Inj 100 Mg/20 Ml Vial IV PUSH 20 mg Q4H PRN Administration SBP > 160 and HR> 60 -1st choice Losartan Potassium 50 mg 03/08/24 10:15 03/13/24 09:25 Losartan Potassium 50 Mg Tablet FEED TUBE 50 mg DAILY JASON Administration Metoprolol Tartrate 50 mg 03/08/24 10:15 03/13/24 09:25 Metoprolol Tartrate 50 Mg Tab FEED TUBE 50 mg Q12HR JASON Administration Multi-Ingred Cream/Lotion/Oil/Oint 1 applic 03/07/24 21:00 03/14/24 08:43 Mineral Oil/White Petrolatum Ointment EACH EYE 1 applic Q12HR JASON Administration Pantoprazole Sodium 40 mg 03/02/24 09:00 03/14/24 08:43 Pantoprazole Sodium Iv 40 Mg Vial IV PUSH 40 mg Q12HR JASON Administration Sodium Chloride 10 ml 02/29/24 06:00 03/14/24 06:35 Central Line Flush IV PUSH 10 ml Q8HR JASON Administration Sodium Chloride 20 ml 02/28/24 23:37 Central Line Flush IV PUSH PRN PRN after blood draws Radiology Results: ITS Impressions Lower Extremity CTA 02/28/24 14:54 IMPRESSION: 1. 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 2. Moderate stenosis of right popliteal artery. 3. Osteomyelitis involving first proximal and distal phalanges and head of first metatarsal. Head CT 02/29/24 05:55 Impression: No intracranial hemorrhage, mass, or acute infarct. Stable chronic encephalomalacia in the high left parietal lobe. Atrophy and chronic white matter changes, as above. Chest/Abdomen/Pelvis CTA 02/29/24 06:02 Impression: Extensive right upper lobe consolidation and more mild right middle lobe consolidation, consistent with pneumonia. Consider aspiration pneumonia. Moderate to large right pleural effusion with complete atelectasis of the right lower lobe. Moderate left pleural effusion with minimal left basilar atelectasis. Small pericardial effusion. No definite acute abnormality in the abdomen or pelvis. Chronic compression fractures, as above. Renal Ultrasound 03/03/24 15:45 IMPRESSION: 1. Normal kidneys without hydronephrosis. 2. Small amount of ascites in the abdomen and pelvis. Thoracentesis Ultrasound 03/08/24 09:35 IMPRESSION: 1. Successful ultrasound-guided thoracentesis yielding 550 mL of clear, yellow fluid. Venous Doppler Study 03/11/24 13:58 IMPRESSION: 1. Patent bilateral upper extremity veins. No evidence of venous thrombosis. Abdomen Ultrasound 03/13/24 16:52 IMPRESSION: 1. No etiology for abnormal liver function tests. 2. Normal hepatic veins and main portal vein. Right and left portal veins and proper hepatic artery not evaluated. 3. Right pleural effusion. Vascular Ultrasound 03/13/24 16:52 IMPRESSION: 1. No etiology for abnormal liver function tests. 2. Normal hepatic veins and main portal vein. Right and left portal veins and proper hepatic artery not evaluated. 3. Right pleural effusion. Chest X-Ray 03/14/24 06:46 Impression: Probable small layering right pleural effusion. Support tubes, as above. Labs Labs: Laboratory Results - last 24 hr 03/13/24 03/13/24 03/13/24 09:16 11:47 18:10 WBC RBC Hgb Hct MCV MCH MCHC RDW Plt Count MPV Puncture Site ABG pH ABG pCO2 ABG pO2 ABG PO2/FiO2 Ratio ABG HCO3 ABG O2 Saturation ABG O2 Content ABG Base Excess A-a Gradient Oxyhemoglobin Carboxyhemoglobin Methemoglobin Reduced Hemoglobin Total Hemoglobin O2 Delivery Device O2 Liters/Min Minute Volume Vent Rate Vent Mode FiO2 Tidal Volume PEEP Peak Inspir Pressure Pressure Support Sodium Potassium Chloride Carbon Dioxide Anion Gap BUN Creatinine Estim Creat Clear Calc Estimated GFR Glucose POC Capillary Glucose 197 H 190 H Calcium Phosphorus Magnesium Total Bilirubin 0.8 Direct Bilirubin 0.0 AST 1798 H ALT 956 H Alkaline Phosphatase 702 H Ammonia Total Protein 6.0 L Albumin 2.5 L Hepatitis A IgM Ab Negative Hep Bs Antigen Negative Hep B Core IgM Ab Negative Hepatitis C Ab Screen Negative Blood Type Antibody Screen Crossmatch 03/14/24 03/14/24 03/14/24 05:32 06:21 06:30 WBC 9.7 RBC 2.31 L Hgb 6.6 L* Hct 21.2 L MCV 91.8 MCH 28.6 MCHC 31.1 L RDW 17.2 H Plt Count 167 MPV 12.4 H Puncture Site Right radial ABG pH 7.502 H* ABG pCO2 36.9 ABG pO2 96.8 ABG PO2/FiO2 Ratio 3.23 ABG HCO3 28.3 H ABG O2 Saturation 97.9 ABG O2 Content 14.5 L ABG Base Excess 4.9 A-a Gradient 73.7 Oxyhemoglobin 96.3 Carboxyhemoglobin 0.9 Methemoglobin 0.3 Reduced Hemoglobin 2.5 Total Hemoglobin 10.6 L O2 Delivery Device Ventilator O2 Liters/Min Not Reportable Minute Volume Not Reportable Vent Rate 16 Vent Mode Cmv FiO2 30 Tidal Volume 380 PEEP 5 Peak Inspir Pressure Not Reportable Pressure Support Not Reportable Sodium Potassium Chloride Carbon Dioxide Anion Gap BUN Creatinine Estim Creat Clear Calc Estimated GFR Glucose POC Capillary Glucose 198 H Calcium Phosphorus Magnesium Total Bilirubin Direct Bilirubin AST ALT Alkaline Phosphatase Ammonia Total Protein Albumin Hepatitis A IgM Ab Hep Bs Antigen Hep B Core IgM Ab Hepatitis C Ab Screen Blood Type Antibody Screen Crossmatch 03/14/24 03/14/24 06:31 09:25 WBC RBC Hgb Hct MCV MCH MCHC RDW Plt Count MPV Puncture Site ABG pH ABG pCO2 ABG pO2 ABG PO2/FiO2 Ratio ABG HCO3 ABG O2 Saturation ABG O2 Content ABG Base Excess A-a Gradient Oxyhemoglobin Carboxyhemoglobin Methemoglobin Reduced Hemoglobin Total Hemoglobin O2 Delivery Device O2 Liters/Min Minute Volume Vent Rate Vent Mode FiO2 Tidal Volume PEEP Peak Inspir Pressure Pressure Support Sodium 142 Potassium 3.8 Chloride 107 Carbon Dioxide 30 Anion Gap 5 BUN 30 H Creatinine 0.80 Estim Creat Clear Calc 92 Estimated GFR > 60 Glucose 230 H POC Capillary Glucose Calcium 7.7 L Phosphorus 3.7 Magnesium 2.4 H Total Bilirubin 0.4 Direct Bilirubin AST 503 H ALT 587 H Alkaline Phosphatase 489 H Ammonia < 9 L Total Protein 6.0 L Albumin 2.3 L Hepatitis A IgM Ab Hep Bs Antigen Hep B Core IgM Ab Hepatitis C Ab Screen Blood Type O Positive Antibody Screen Negative Crossmatch See Detail Quality VTE Prophylaxis VTE prophylaxis: pharmacologic ordered
[2024-03-14 10:56] LABS: Alveolar/Arterial O2 Gradient 82.7 mmHg; Base Excess ABG 4.5 mEq/l (+/-2.0); Fractional Inspired Oxygen 30 %; HCO3 ABG 27.4 mEq/l (22.0-26.0); Oxygen Saturation ABG 97.8 % (95.0-100.0); Oxyhemoglobin 95.8 % THb (90.0-100.0); PCO2 ABG 33.2 mmHg (35.0-45.0); PO2 ABG 92.2 mmHg (80.0-100.0); PO2 FiO2 Ratio Arterial Blood 3.07 %
[2024-03-14 10:57] LABS: Arterial Blood Gas PEEP 5 cmH2O; Arterial Blood Gas Vent Mode SPONTANEOUS; Device VENTILATOR; Modified Allen's Test Pass; Site Drawn LEFT RADIAL; Total Hemoglobin 7.3 g/dL (12.0-18.0); pH ABG 7.534 (7.350-7.450)
[2024-03-14 10:58] LABS: Arterial Blood Gas Pressure Support 5 cmH2O
--- NOTE | 2024-03-14 11:12 | PCNFU ---
Nutrition Follow-Up Complete: Suboptimal Energy Intake as related to mechanical vent as evidenced by NPO. Goal: Meet estimated nutritional needs Patient will continue current goal. Pt current nutrition is Glucerna 1.2 at 60 ml/hr with Prosource BID and Minh BID. Last recorded weight is 101.3 kg, up from 98 kg on admit. Bowel Motility: FMS Labs Reviewed: Mg 2.4, BUN 30, Alb 2.3, Hct 21.2, Hgb 6.6 Meds Noted:Lantus, NovoLog, Protonix, Lopressor. Skin: Stage II pressure ulcer-sacrum, R BKA Additional Notes: Patient remains on mechanical vent. Breathing trial again today. 1 unit of blood given due to Hgb 6.6. Tube feedings are being tolerated of Glucerna 1.2 at 60 ml/hr with protein modulars of Minh BID and Prosource BID. Total Nutrition: 1904 kcal/125 gm protein/ 1063 ml water. Meeting 79% kcal needs at 25 kcal/kg and 93% protein needs at 1.8-2.0 gm/kg. Flush 150 ml q 4 hours. Will continue current tube feedings orders and monitor for any rate change recommendations. Will monitor weight, labs, skin, tube feedings, meds, every Sunday and Sunday.
--- NOTE | 2024-03-14 11:28 | P.PNGS_ITS ---
Progress Note: A&P Assessment and Plan (1) Amputation of right lower extremity below knee: Qualifiers: Encounter type: subsequent encounter Qualified Code(s): S88.111D - Complete traumatic amputation at level between knee and ankle, right lower leg, subsequent encounter Code(s): S88.111A - Complete traumatic amputation at level between knee and ankle, right lower leg, initial encounter Status: Acute Assessment and Plan: Postop day 8. Wound healing adequately. Redressed with Xeroform gauze, fluffs, ABD, Tobi wraps. Placed right BKA in knee immobilizer. Informed patient to keep knee as straight as possible. (2) Acute respiratory failure with hypoxia: Code(s): J96.01 - Acute respiratory failure with hypoxia Status: Acute Assessment and Plan: On breathing trial now. Hopefully can be extubated soon. (3) Chronic obstructive pulmonary disease: Code(s): J44.9 - Chronic obstructive pulmonary disease, unspecified Status: Chronic Subjective Subjective Date/Time Seen: 03/14/24 11:28 Post Op day: #8 R BKA Patient reports: afebrile and other (Still on ventilator but currently pretty awake, on breathing trial) Review of Systems Review of Systems: ROS unobtainable: Yes unobtainable due to endotracheal tube Exam Extrem: Right lower extremity: knee (Still some inherent flexion to right knee.) and lower leg (Healing slowly, small patch of black and skin on flap, looks good otherwise) Details: tenderness, non-pitting edema and ecchymosis; no pitting edema and no crepitus Objective Data Vital Signs Vital Signs: Vital Signs - 24 hr 03/13/24 12:00 03/13/24 12:00 03/13/24 12:00 Temperature Pulse Rate 80 103 H Respiratory Rate 16 17 Blood Pressure Pulse Oximetry 100 Oxygen Delivery Mechanical Ventilation Fraction of Inspired Oxygen 30 30 03/13/24 14:15 03/13/24 14:26 03/13/24 14:29 Temperature Pulse Rate 76 77 76 Respiratory Rate 17 23 H Blood Pressure Pulse Oximetry 100 Oxygen Delivery Mechanical Ventilation Fraction of Inspired Oxygen 30 03/13/24 14:34 03/13/24 14:00 03/13/24 12:00 Temperature Pulse Rate 76 100 76 Respiratory Rate 18 18 Blood Pressure Pulse Oximetry Oxygen Delivery Fraction of Inspired Oxygen 03/13/24 14:00 03/13/24 12:00 03/13/24 14:00 Temperature 37.2 C Pulse Rate 76 76 76 Respiratory Rate 16 16 Blood Pressure 112/61 107/58 L Pulse Oximetry 99 100 Oxygen Delivery Fraction of Inspired Oxygen 03/13/24 17:03 03/13/24 16:00 03/13/24 16:00 Temperature 37.0 C Pulse Rate 74 78 78 Respiratory Rate 24 H Blood Pressure 97/55 L Pulse Oximetry 100 100 Oxygen Delivery Mechanical Ventilation Fraction of Inspired Oxygen 30 03/13/24 16:00 03/13/24 16:00 03/13/24 18:08 Temperature Pulse Rate 73 74 Respiratory Rate 16 18 Blood Pressure Pulse Oximetry 100 Oxygen Delivery Fraction of Inspired Oxygen 30 03/13/24 18:08 03/13/24 16:00 03/13/24 18:00 Temperature Pulse Rate 74 79 76 Respiratory Rate 18 16 17 Blood Pressure Pulse Oximetry Oxygen Delivery Fraction of Inspired Oxygen 03/13/24 18:00 03/13/24 18:00 03/13/24 20:00 Temperature 37.2 C Pulse Rate 78 77 Respiratory Rate 24 H Blood Pressure 103/51 L Pulse Oximetry 99 Oxygen Delivery Fraction of Inspired Oxygen 30 03/13/24 20:00 03/13/24 20:55 03/13/24 20:57 Temperature Pulse Rate 74 76 75 Respiratory Rate 18 12 Blood Pressure Pulse Oximetry 99 99 Oxygen Delivery Mechanical Ventilation Mechanical Ventilation Fraction of Inspired Oxygen 30 30 03/13/24 21:02 03/13/24 23:20 03/14/24 00:00 Temperature Pulse Rate 72 76 76 Respiratory Rate 17 17 Blood Pressure Pulse Oximetry 100 100 Oxygen Delivery Mechanical Ventilation Mechanical Ventilation Fraction of Inspired Oxygen 30 30 03/14/24 00:00 03/14/24 01:33 03/14/24 01:35 Temperature Pulse Rate 74 76 Respiratory Rate 17 Blood Pressure Pulse Oximetry 100 Oxygen Delivery Mechanical Ventilation Fraction of Inspired Oxygen 30 30 03/14/24 01:43 03/14/24 06:10 03/14/24 06:00 Temperature Pulse Rate 79 75 80 Respiratory Rate 17 21 H Blood Pressure Pulse Oximetry 100 Oxygen Delivery Mechanical Ventilation Fraction of Inspired Oxygen 30 03/13/24 20:00 03/13/24 22:00 03/14/24 00:00 Temperature Pulse Rate 77 79 75 Respiratory Rate 23 H 18 20 Blood Pressure Pulse Oximetry Oxygen Delivery Fraction of Inspired Oxygen 03/14/24 02:00 03/14/24 04:00 03/14/24 06:41 Temperature Pulse Rate 82 78 82 Respiratory Rate 19 21 H 21 H Blood Pressure Pulse Oximetry Oxygen Delivery Fraction of Inspired Oxygen 03/14/24 06:41 03/14/24 04:00 03/14/24 04:00 Temperature Pulse Rate 80 80 Respiratory Rate 21 H 21 H Blood Pressure Pulse Oximetry 100 Oxygen Delivery Mechanical Ventilation Fraction of Inspired Oxygen 30 30 03/13/24 20:00 03/13/24 22:00 03/14/24 00:00 Temperature Pulse Rate 77 80 74 Respiratory Rate Blood Pressure Pulse Oximetry Oxygen Delivery Fraction of Inspired Oxygen 03/14/24 02:00 03/14/24 04:00 03/14/24 06:00 Temperature Pulse Rate 80 79 80 Respiratory Rate Blood Pressure Pulse Oximetry Oxygen Delivery Fraction of Inspired Oxygen 03/13/24 20:00 03/13/24 22:00 03/14/24 00:00 Temperature 37.2 C 37.3 C 37.4 C Pulse Rate 77 79 96 Respiratory Rate 25 H 20 18 Blood Pressure 95/46 L 88/47 L 96/48 L Pulse Oximetry 100 100 100 Oxygen Delivery Fraction of Inspired Oxygen 03/14/24 02:00 03/14/24 04:00 03/14/24 06:00 Temperature 37.6 C H 37.6 C H 37.7 C H Pulse Rate 82 79 77 Respiratory Rate 20 17 22 H Blood Pressure 92/46 L 96/52 L 100/56 L Pulse Oximetry 97 100 100 Oxygen Delivery Fraction of Inspired Oxygen 03/14/24 07:40 03/14/24 08:40 03/14/24 09:01 Temperature Pulse Rate 79 92 89 Respiratory Rate 13 22 H 24 H Blood Pressure Pulse Oximetry Oxygen Delivery Fraction of Inspired Oxygen 03/14/24 09:03 03/14/24 09:14 03/14/24 09:23 Temperature Pulse Rate 94 93 95 Respiratory Rate 23 H Blood Pressure Pulse Oximetry 100 100 Oxygen Delivery Mechanical Ventilation Mechanical Ventilation Fraction of Inspired Oxygen 30 30 03/14/24 08:00 03/14/24 08:00 03/14/24 10:00 Temperature 37.8 C H 37.8 C H Pulse Rate 79 94 Respiratory Rate 21 H 14 Blood Pressure 99/53 L 111/58 L Pulse Oximetry 100 100 Oxygen Delivery Fraction of Inspired Oxygen 30 03/14/24 08:00 03/14/24 10:00 03/14/24 08:00 Temperature Pulse Rate 102 H 93 82 Respiratory Rate 12 Blood Pressure Pulse Oximetry Oxygen Delivery Fraction of Inspired Oxygen 03/14/24 10:00 03/14/24 08:00 03/14/24 11:02 Temperature Pulse Rate 94 101 H 100 Respiratory Rate 16 22 H 24 H Blood Pressure Pulse Oximetry 100 Oxygen Delivery Mechanical Ventilation Fraction of Inspired Oxygen 30 03/14/24 11:17 Temperature 37.8 C H Pulse Rate 104 H Respiratory Rate 24 H Blood Pressure 120/59 L Pulse Oximetry 100 Oxygen Delivery Fraction of Inspired Oxygen Intake/Output Intake/Output: Intake & Output 03/11/24 03/12/24 03/13/24 03/14/24 23:59 23:59 23:59 23:59 Intake Total 2675.2 1929.6 2035.4 1685.9 Output Total 1825 2250 2700 500 Balance 850.2 -320.4 -664.6 1185.9 Meds/Results Medications: Active Medications Generic Name Dose Route Start Last Admin Trade Name Freq PRN Reason Stop Dose Admin Acetaminophen 500 mg 03/08/24 10:18 03/13/24 09:24 Acetaminophen 500 Mg Tablet FEED TUBE 500 mg Q6H PRN Administration Pain Rated 1-3 Albuterol/Ipratropium 3 ml 02/29/24 02:00 03/14/24 09:00 Ipratropium 0.5 Mg/Albuterol Sulfate 2.5 Mg Ampul.Neb 3 Ml INHALATION 3 ml Q6HRT [facility] Administration Alteplase, Recombinant 2 mg 03/06/24 09:45 03/06/24 13:10 Alteplase 2 Mg Vial (Cathflo) IV PUSH 2 mg ONCE PRN Administration Line Occlusion Aspirin 81 mg 03/09/24 08:00 03/14/24 08:43 Aspirin 81 Mg Chewable Tablet FEED TUBE 81 mg DAILY@0800 [facility] Administration Dextrose 12.5 gm 02/28/24 19:23 Dextrose 50% 25 Gm/50 Ml Syringe IV PUSH PRN PRN Hypoglycemia Protocol Glucagon 1 mg 02/28/24 19:23 Glucagon For Inj 1 Mg Vial IM PRN PRN Hypoglycemia Protocol Glucose 15 gm 03/08/24 10:19 Glucose Oral Gel 15 Gm Of Glucse In 37.5 Gm Tube FEED TUBE PRN PRN Hypoglycemia Protocol Heparin Sodium (Porcine) 5,000 units 03/03/24 14:00 03/14/24 06:35 Heparin Sodium 5,000 Units/Ml Vial SUB-Q 5,000 units Q8HR JASON Administration Hydralazine HCl 20 mg 03/08/24 10:06 Hydralazine Hcl 20 Mg/Ml Vial IV PUSH Q4HR PRN Hypertension Dextrose 1,000 mls @ 100 mls/hr 02/28/24 19:23 Dextrose 5% 1,000 Ml IVPB PRN PRN Hypoglycemia Protocol Dexmedetomidine HCl 400 mcg in 100 mls @ 0 mls/hr 03/11/24 21:50 03/14/24 11:02 Precedex 400 Mcg/100 Ml IV CONT 0 mcg/kg/hr .Q0M JASON 0 mls/hr Titration Protocol Sodium Chloride 250 mls @ 30 mls/hr 03/14/24 09:04 Normal Saline Iv IV CONT 03/14/24 17:23 .Q8H20M STA Insulin Aspart 3 - 6 units 03/01/24 00:00 03/14/24 06:35 Insulin Aspart (*Bkc) 100 Units/Ml SUB-Q Not Given Q6H JASON Protocol Insulin Glargine 55 units 03/15/24 09:00 Insulin Glargine (*Bkc) 100 Units/Ml SUB-Q DAILY JASON Labetalol HCl 20 mg 03/08/24 10:06 03/08/24 16:48 Labetalol Hcl Inj 100 Mg/20 Ml Vial IV PUSH 20 mg Q4H PRN Administration SBP > 160 and HR> 60 -1st choice Losartan Potassium 50 mg 03/08/24 10:15 03/13/24 09:25 Losartan Potassium 50 Mg Tablet FEED TUBE 50 mg DAILY JASON Administration Metoprolol Tartrate 50 mg 03/08/24 10:15 03/13/24 09:25 Metoprolol Tartrate 50 Mg Tab FEED TUBE 50 mg Q12HR JASON Administration Multi-Ingred Cream/Lotion/Oil/Oint 1 applic 03/07/24 21:00 03/14/24 08:43 Mineral Oil/White Petrolatum Ointment EACH EYE 1 applic Q12HR JASON Administration Pantoprazole Sodium 40 mg 03/02/24 09:00 03/14/24 08:43 Pantoprazole Sodium Iv 40 Mg Vial IV PUSH 40 mg Q12HR JASON Administration Sodium Chloride 10 ml 02/29/24 06:00 03/14/24 06:35 Central Line Flush IV PUSH 10 ml Q8HR JASON Administration Sodium Chloride 20 ml 02/28/24 23:37 Central Line Flush IV PUSH PRN PRN after blood draws Radiology Results: ITS Impressions Lower Extremity CTA 02/28/24 14:54 IMPRESSION: 1. 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 2. Moderate stenosis of right popliteal artery. 3. Osteomyelitis involving first proximal and distal phalanges and head of first metatarsal. Head CT 02/29/24 05:55 Impression: No intracranial hemorrhage, mass, or acute infarct. Stable chronic encephalomalacia in the high left parietal lobe. Atrophy and chronic white matter changes, as above. Chest/Abdomen/Pelvis CTA 02/29/24 06:02 Impression: Extensive right upper lobe consolidation and more mild right middle lobe consolidation, consistent with pneumonia. Consider aspiration pneumonia. Moderate to large right pleural effusion with complete atelectasis of the right lower lobe. Moderate left pleural effusion with minimal left basilar atelectasis. Small pericardial effusion. No definite acute abnormality in the abdomen or pelvis. Chronic compression fractures, as above. Renal Ultrasound 03/03/24 15:45 IMPRESSION: 1. Normal kidneys without hydronephrosis. 2. Small amount of ascites in the abdomen and pelvis. Thoracentesis Ultrasound 03/08/24 09:35 IMPRESSION: 1. Successful ultrasound-guided thoracentesis yielding 550 mL of clear, yellow fluid. Venous Doppler Study 03/11/24 13:58 IMPRESSION: 1. Patent bilateral upper extremity veins. No evidence of venous thrombosis. Abdomen Ultrasound 03/13/24 16:52 IMPRESSION: 1. No etiology for abnormal liver function tests. 2. Normal hepatic veins and main portal vein. Right and left portal veins and proper hepatic artery not evaluated. 3. Right pleural effusion. Vascular Ultrasound 03/13/24 16:52 IMPRESSION: 1. No etiology for abnormal liver function tests. 2. Normal hepatic veins and main portal vein. Right and left portal veins and proper hepatic artery not evaluated. 3. Right pleural effusion. Chest X-Ray 03/14/24 06:46 Impression: Probable small layering right pleural effusion. Support tubes, as above. Labs Labs: Laboratory Results - last 24 hr 03/05/24 03/13/24 03/13/24 15:29 09:16 11:47 WBC RBC Hgb Hct MCV MCH MCHC RDW Plt Count MPV Puncture Site ABG pH ABG pCO2 ABG pO2 ABG PO2/FiO2 Ratio ABG HCO3 ABG O2 Saturation ABG O2 Content ABG Base Excess A-a Gradient Oxyhemoglobin Carboxyhemoglobin Methemoglobin Reduced Hemoglobin Total Hemoglobin O2 Delivery Device O2 Liters/Min Minute Volume Vent Rate Vent Mode FiO2 Tidal Volume PEEP Peak Inspir Pressure Pressure Support Sodium Potassium Chloride Carbon Dioxide Anion Gap BUN Creatinine Estim Creat Clear Calc Estimated GFR Glucose POC Capillary Glucose 197 H Calcium Phosphorus Magnesium Total Bilirubin AST ALT Alkaline Phosphatase Ammonia Total Protein Albumin Hepatitis A IgM Ab Negative Hep Bs Antigen Negative Hep B Core IgM Ab Negative Hepatitis C Ab Screen Negative Blood Type Antibody Screen Crossmatch See Detail 03/13/24 03/14/24 03/14/24 18:10 05:32 06:21 WBC RBC Hgb Hct MCV MCH MCHC RDW Plt Count MPV Puncture Site Right radial ABG pH 7.502 H* ABG pCO2 36.9 ABG pO2 96.8 ABG PO2/FiO2 Ratio 3.23 ABG HCO3 28.3 H ABG O2 Saturation 97.9 ABG O2 Content 14.5 L ABG Base Excess 4.9 A-a Gradient 73.7 Oxyhemoglobin 96.3 Carboxyhemoglobin 0.9 Methemoglobin 0.3 Reduced Hemoglobin 2.5 Total Hemoglobin 10.6 L O2 Delivery Device Ventilator O2 Liters/Min Not Reportable Minute Volume Not Reportable Vent Rate 16 Vent Mode Cmv FiO2 30 Tidal Volume 380 PEEP 5 Peak Inspir Pressure Not Reportable Pressure Support Not Reportable Sodium Potassium Chloride Carbon Dioxide Anion Gap BUN Creatinine Estim Creat Clear Calc Estimated GFR Glucose POC Capillary Glucose 190 H 198 H Calcium Phosphorus Magnesium Total Bilirubin AST ALT Alkaline Phosphatase Ammonia Total Protein Albumin Hepatitis A IgM Ab Hep Bs Antigen Hep B Core IgM Ab Hepatitis C Ab Screen Blood Type Antibody Screen Crossmatch 03/14/24 03/14/24 03/14/24 06:30 06:31 09:25 WBC 9.7 RBC 2.31 L Hgb 6.6 L* Hct 21.2 L MCV 91.8 MCH 28.6 MCHC 31.1 L RDW 17.2 H Plt Count 167 MPV 12.4 H Puncture Site ABG pH ABG pCO2 ABG pO2 ABG PO2/FiO2 Ratio ABG HCO3 ABG O2 Saturation ABG O2 Content ABG Base Excess A-a Gradient Oxyhemoglobin Carboxyhemoglobin Methemoglobin Reduced Hemoglobin Total Hemoglobin O2 Delivery Device O2 Liters/Min Minute Volume Vent Rate Vent Mode FiO2 Tidal Volume PEEP Peak Inspir Pressure Pressure Support Sodium 142 Potassium 3.8 Chloride 107 Carbon Dioxide 30 Anion Gap 5 BUN 30 H Creatinine 0.80 Estim Creat Clear Calc 92 Estimated GFR > 60 Glucose 230 H POC Capillary Glucose Calcium 7.7 L Phosphorus 3.7 Magnesium 2.4 H Total Bilirubin 0.4 AST 503 H ALT 587 H Alkaline Phosphatase 489 H Ammonia < 9 L Total Protein 6.0 L Albumin 2.3 L Hepatitis A IgM Ab Hep Bs Antigen Hep B Core IgM Ab Hepatitis C Ab Screen Blood Type O Positive Antibody Screen Negative Crossmatch See Detail 03/14/24 10:39 WBC RBC Hgb Hct MCV MCH MCHC RDW Plt Count MPV Puncture Site Left radial ABG pH 7.534 H* ABG pCO2 33.2 L ABG pO2 92.2 ABG PO2/FiO2 Ratio 3.07 ABG HCO3 27.4 H ABG O2 Saturation 97.8 ABG O2 Content 10.0 L ABG Base Excess 4.5 A-a Gradient 82.7 Oxyhemoglobin 95.8 Carboxyhemoglobin Methemoglobin Reduced Hemoglobin Total Hemoglobin 7.3 L* O2 Delivery Device Ventilator O2 Liters/Min Not Reportable Minute Volume Not Reportable Vent Rate Not Reportable Vent Mode Spontaneous FiO2 30 Tidal Volume Not Reportable PEEP 5 Peak Inspir Pressure Not Reportable Pressure Support 5 Sodium Potassium Chloride Carbon Dioxide Anion Gap BUN Creatinine Estim Creat Clear Calc Estimated GFR Glucose POC Capillary Glucose Calcium Phosphorus Magnesium Total Bilirubin AST ALT Alkaline Phosphatase Ammonia Total Protein Albumin Hepatitis A IgM Ab Hep Bs Antigen Hep B Core IgM Ab Hepatitis C Ab Screen Blood Type Antibody Screen Crossmatch
[2024-03-14] MEDS: SODIUM CHLORIDE 0.9% IV 250 ML 30 ML IV CONT (11:30)
[2024-03-14 12:30] LABS: Glucose Point of Care 163 mg/dl (65-105)
[2024-03-14 16:44] LABS: Glucose Point of Care 105 mg/dl (65-105)
[2024-03-14 18:36] LABS: Glucose Point of Care 95 mg/dl (65-105)
[2024-03-14] MEDS: DEXTROSE 5%/0.9% SOD CHL 1,000 ML 30 ML IV CONT (19:15)
[2024-03-14 20:30] LABS: Glucose Point of Care 103 mg/dl (65-105)
[2024-03-14] MEDS: RAPID SEQUENCE INTUBATION KIT 1 EACH (23:20)
[2024-03-14] MEDS: ETOMIDATE 20 MG/10 ML AMPUL IV PUSH (23:20)
[2024-03-14] MEDS: SUCCINYLCHOLINE CHLORIDE 20 MG/ML 10 ML VIAL 100 MG IV PUSH (23:20)
--- NOTE | 2024-03-14 23:28 | WPDPROCEDUR ---
Procedures Intubation Intubation Date: 03/14/24 Intubation Time: 23:25 Consent: Patient gave verbal consent. A pre-procedural Time-Out was completed immediately before starting the procedure and confirmed: Patient Identification, Site, Procedure, Patient Position and the Availability of Requisite Equipment: Yes Sedative: etomidate Mg given: 20 Paralytic: succinylcholine Mg given: 100 Laryngoscope: fiber optic video scope Assist device used: fiber optic device ET tube size: 7.5 Tube secured depth (cm): 25 Tube secured location: lips Tube placement confirmation: visualized tube passing through cords, equal breath sounds bilaterally, no breath sounds over epigastrium and confirmation by capnometry Patient tolerated procedure: well Intubation complications: none Additional comments: Patient was extubated earlier in the day. He became increasingly tachypneic and wheezing with stridor. I came to re-evaluate the patient and he was tachypneic, diaphoretic, and unable to speak. Decision was made to intubate and patient gave consent. He was preoxygenated with an SpO2 of 100% for at least 2 minutes prior to RSI. He was given etomidate and succinylcholine and was intubated easily and atraumatically on 1st attempt with a 7.5 ET tube using a 4 glide scope. Tube was seen passing through the vocal cords. Lung sounds were auscultated equally anteriorly and at the flanks. Misting was noted in the tube. CO2 colorimetric change noted. The patient was hemodynamically stable throughout. Vent settings per financial report service sales agent. Chest x-ray pending at the time of this dictation.
[2024-03-14] MEDS: FENTANYL 2,500MCG/NS250ML(*CRX 2,500 MCG/250 ML BAG IV CONT (23:35)
[2024-03-14] MEDS: PROPOFOL IV EMULSION 100 ML 3.04 MG IV CONT (23:35)
[2024-03-14] MEDS: FUROSEMIDE INJ 40 MG/4 ML VIAL IV PUSH (23:44)
[2024-03-14] MEDS: methylPREDNISolone SOD SUCC 40 MG VIAL IV PUSH (23:50)
[2024-03-15] VITALS (59 sets, daily range): BP systolic 84–125; BP diastolic 50–74; PULSE 78–123; RESP 14–29; TEMP 36.5–37.3; O2SAT 97–100
[2024-03-15 01:26] LABS: Alveolar/Arterial O2 Gradient 236.5 mmHg; Base Excess ABG 0.9 mEq/l (+/-2.0); Carboxyhemoglobin 0.6 % THb (0-2.0); Fractional Inspired Oxygen 60 %; HCO3 ABG 24.8 mEq/l (22.0-26.0); Oxygen Content ABG 13.3 %vol (16.0-22.0); Oxygen Saturation ABG 99.1 % (95.0-100.0); Oxyhemoglobin 98.5 % THb (90.0-100.0); PCO2 ABG 36.3 mmHg (35.0-45.0); PO2 ABG 151.4 mmHg (80.0-100.0); PO2 FiO2 Ratio Arterial Blood 2.52 %; Reduced Hemoglobin 0.9 %THb (0-5.0); Total Hemoglobin 9.4 g/dL (12.0-18.0); pH ABG 7.452 (7.350-7.450)
[2024-03-15 01:29] LABS: Arterial Blood Gas PEEP 5 cmH2O; Arterial Blood Gas Tidal Volume 380 ml; Arterial Blood Gas Vent Mode CMV; Arterial Blood Gas Ventilator rate 16 /MIN; Device VENTILATOR; Modified Allen's Test Unable to perform; Site Drawn RIGHT RADIAL
[2024-03-15] MEDS: IPRATROPIUM 0.5 MG/ALBUTEROL SULFATE 2.5 MG AMPUL.NEB 3 ML INHALATION ×4 (01:42→20:14)
[2024-03-15 02:28] LABS: Glucose Point of Care 173 mg/dl (65-105)
--- NOTE | 2024-03-15 03:54 | PC.NURSE ---
At approximately 2300 RN (self) heard patient say help and entered patient's room as the monitor started to alarm. Patient's HR was in the 150's and respirations were in the 30's. Patient was c/o that he could not breathe. Patient was placed on 15L Venti Mask and repositioned. Hospitalist was notified to come to bedside to evaluate. Patient started to decline and became more tachypneic and diaphoretic. See hospitalist note re intubation and mary garcia meds admin.
[2024-03-15 04:38] LABS: Glucose Point of Care 201 mg/dl (65-105)
[2024-03-15 04:41] LABS: Hematocrit 26.7 % (42.0-52.0); Hemoglobin 8.3 g/dL (14.0-18.0); Mean Corpuscular HGB Conc 31.1 g/dl (32-36); Mean Corpuscular Hemoglobin 27.4 pg (26-34); Mean Corpuscular Volume 88.1 fl (80-100); Mean Platelet Volume 11.7 fl (7.4-10.4); Platelet Count Result 223 k/mm3 (150-375); Red Blood Count 3.03 M/mm3 (4.6-6.20); Red Cell Distribution Width 18.3 % (11.5-14.5); White Blood Count 13.5 K/mm3 (4.5-10.0)
[2024-03-15 04:52] LABS: Alanine Aminotransferase 394 U/L (6-50); Albumin Level 2.5 g/dL (3.5-5.1); Alkaline Phosphatase 467 U/L (38-126); Anion Gap 6 mmol/L (4-12); Aspartate Amino Transferase 194 U/L (17-59); Bilirubin,Total 0.8 mg/dL (0.2-1.3); Blood Urea Nitrogen 24 mg/dL (9-20); Calcium 7.7 mg/dL (8.4-10.2); Carbon Dioxide 29 mmol/L (22-30); Chloride 109 mmol/L (98-107); Estimated CRCL calculation 82 ml/min; Estimated Glomerular Filt Rate > 60; Glucose 209 mg/dL (65-110); INR 1.3; Magnesium 2.3 mg/dL (1.6-2.3); Potassium 3.8 mmol/L (3.4-5.0); Prothrombin Time 16.7 Seconds (11.1-14.7); Sodium 144 mmol/L (137-145); Triglycerides 116 mg/dL (<150)
[2024-03-15 05:29] LABS: Base Excess ABG 0.8 mEq/l (+/-2.0); Carboxyhemoglobin 0.7 % THb (0-2.0); Fractional Inspired Oxygen 45 %; HCO3 ABG 24.6 mEq/l (22.0-26.0); Methemoglobin ABG 0.3 %THb (0-1.5); Oxygen Content ABG 13.8 %vol (16.0-22.0); Oxygen Saturation ABG 98.5 % (95.0-100.0); Oxyhemoglobin 97.6 % THb (90.0-100.0); PCO2 ABG 36.2 mmHg (35.0-45.0); PO2 ABG 119.7 mmHg (80.0-100.0); PO2 FiO2 Ratio Arterial Blood 2.66 %; Reduced Hemoglobin 1.4 %THb (0-5.0); Total Hemoglobin 9.9 g/dL (12.0-18.0)
[2024-03-15 05:31] LABS: Arterial Blood Gas PEEP 5 cmH2O; Arterial Blood Gas Vent Mode CMV; Arterial Blood Gas Ventilator rate 16 /MIN; Device VENTILATOR; Modified Allen's Test Pass; Site Drawn LEFT RADIAL
[2024-03-15 05:32] LABS: Arterial Blood Gas Tidal Volume 380 ml
[2024-03-15 06:07] LABS: Glucose Point of Care 220 mg/dl (65-105)
[2024-03-15] MEDS: INSULIN ASPART (*BKC) 100 UNITS/ML SUB-Q ×4 (06:25→20:39)
[2024-03-15] MEDS: HEPARIN SODIUM 5,000 UNITS/ML VIAL 5000 UNITS SUB-Q ×3 (06:25→21:15)
--- NOTE | 2024-03-15 06:31 | PM.EVENT ---
Event Note Event Note Event Note: 03/15/2024 23:00 I received a call from the patient's nurse a little after 23:00. The patient had been extubated early on in the day and had been coughing and clearing his throat quite a bit throughout the evening. He then began to complain of shortness of breath and I was called to evaluate the patient. The patient told me that he was feeling extremely short of breath and that he could not breathe. He had no complaints of pain and specifically denied chest pain and pleuritic pain. On my arrival to the room the patient was acutely ill-appearing, tachycardic, tachypneic, and diaphoretic. Lung sounds were significantly diminished with diminutive air intake and significantly prolonged end-expiratory phase. He had coarse lung sounds but no obvious stridor. Swelling noted in the upper and lower extremities. Left femoral catheter in place. Status post right [id number] amputation. He was only able to speak in 1 or 2 word sentences. He started to become less responsive as we were preparing to place him on BiPAP. I discussed with the patient briefly about re-intubation and he was agreeable. The patient's case was discussed with on-call radiology technician, Dr. Collins. He was in agreement with reintubation. The patient was intubated easily but vocal cords were noted to be a bit edematous. Vent setting since sedation orders were received. Critical Care Time Critical Care Time: Yes Total Critical Care Time: 30 Attestation: Due to a high probability of clinically significant, life threatening deterioration, the patient required my highest level of preparedness to intervene emergently and I personally spent this critical care time directly and personally managing the patient. This critical care time included obtaining a history; examining the patient; pulse oximetry; ordering and review of studies; arranging urgent treatment with development of a management plan; evaluation of patient's response to treatment; frequent reassessment; and discussions with other providers. It was exclusive of separately billable procedures and treating other patients and teaching time. Please see Assessment and Plan section and the rest of the note for further information on patient assessment and treatment.
[2024-03-15] MEDS: CENTRAL LINE FLUSH 10 ML IV PUSH ×3 (06:45→21:15)
[2024-03-15] MEDS: POTASSIUM CHLORIDE 20 MEQ PACKET (FOR LIQUID) 40 MEQ FEED TUBE (08:56)
[2024-03-15] MEDS: ASPIRIN 81 MG CHEWABLE TABLET FEED TUBE (08:56)
[2024-03-15] MEDS: MINERAL OIL/WHITE PETROLATUM OINTMENT 1 APPLIC EACH EYE ×2 (08:57→20:49)
[2024-03-15] MEDS: PANTOPRAZOLE SODIUM IV 40 MG VIAL IV PUSH ×2 (08:58→20:37)
[2024-03-15] MEDS: INSULIN GLARGINE (*BKC) 100 UNITS/ML 55 UNITS SUB-Q (09:00)
[2024-03-15] MEDS: CALCIUM GLUC 2,000 MG/NS 100ML 2,000 MG/100 ML BAG 100 MG IVPB (09:00)
[2024-03-15] MEDS: FUROSEMIDE INJ 40 MG/4 ML VIAL IV PUSH (09:01)
[2024-03-15 09:30] LABS: Glucose Point of Care 221 mg/dl (65-105)
--- NOTE | 2024-03-15 10:44 | P.PNINT_ITS ---
Progress Note: A&P Assessment and Plan (1) Acute respiratory failure with hypoxia: Code(s): J96.01 - Acute respiratory failure with hypoxia Status: Acute Assessment and Plan: Acute respiratory failure likely related to cardiac arrest, aspiration pneumonia, NSTEMI, hypoxia, septic shock Worsening likely secondary to ARDS versus pulmonary edema Intubated 02/27 02/28 Chest CTA: Extensive right upper lobe consolidation and more mild right middle lobe consolidation, consistent with pneumonia. Consider aspiration pneumonia.Moderate to large right pleural effusion with complete atelectasis of the right lower lobe. Moderate left pleural effusion with minimal left basilar atelectasis. Small pericardial effusion. No definite acute abnormality in the abdomen or pelvis. Chronic compression fractures, as above . -03/07 right thoracentesis with 1 L fluid removed -03/08 left-sided thoracentesis 550 mL -03/11: patient was in pressure support ventilation 02/18, with decrease tidal volumes in the upper 200s. place patient back on CMV, I have asked the bedside RN to decrease the Precedex infusion once patient is more awake will place back on spontaneous breathing trials 03/12: Place patient on SBT 04/17, low tidal volumes, low respiratory rate. Patient had replaced back on CMV mode of ventilation. -even on ASV patient is breathing only 7-8 times a minute 03/13: Off Precedex infusion overnight, placed patient on pressure support ventilation 04/17, initially did well but not significantly tachycardic and tachypneic and in respiratory distress, patient was placed back on CMV mode of ventilation and low-dose was 03/14 8/5 PSV SBT done for more than 1 hour. RSBI, ABG and Vitals acceptable. Pt awake and following commands. Patient was extubated. Initially patient did well and was on nasal cannula and was able to communicate. Over 12 hours patient became more hypoxic with increased respiratory distress and tachypnea. I spoke to patient post extubation and was agreeable to re-intubation if needed and stated that 'he is not ready to ' and 'do what ever it takes'. He was re intubated at night. I also mentioned to him that he may need tracheostomy and PEG tube placement if he gets we intubated and is not weanable. He told me 'to proceed with it if needed'. Solu-Medrol IV given for airway edema and will be continued for 24 hours -continue bronchodilators -on propofol and fentanyl Continue Lasix (2) Elevated LFTs: Code(s): R79.89 - Other specified abnormal findings of blood chemistry Status: Acute Assessment and Plan: 03/13: Significant elevation in LFTs, AST 2280, ALT 988, alk-phos 722 -patient has been hemodynamically stable, no hypotension noted in the last 24-48 hours -statin discontinued. Hold Tylenol -no tenderness in the right upper, lower quadrant or epigastric region on exam -negative vital hepatitis panel, right upper quadrant ultrasound with Doppler negative for hepatic or portal vein thrombosis -patient evaluated by GI -levels improving. Monitor (3) Cardiac arrest with pulseless electrical activity: Code(s): I46.9 - Cardiac arrest, cause unspecified Status: Acute Assessment and Plan: Cardiac arrest, secondary to unknown etiology. Possible aspiration pneumonia, NSTEMI, hypoxia, septic shock, infection -see code blue sheet for the details -patient currently intubated, vasopressors for blood pressure support have been weaned off -appreciate cardiology following the patient 02/29/2024 echocardiogram Summary 1. Technically difficult study with limited views. 2. Left ventricular chamber dimension is normal. 3. Left ventricular systolic function is mildly reduced, estimated at 45-50%. The apex appears to be hypokinetic. 4. There is mildly increased left ventricular wall thickness. 5. The left ventricular diastolic function is grade I diastolic dysfunction. 6. Right ventricular systolic function is normal. 7. Left atrial chamber dimension is moderately enlarged. 8. There is mild to moderate tricuspid valve regurgitation. 9. There is small anterior pericardial effusion. (4) Septic shock: Code(s): A41.9 - Sepsis, unspecified organism; R65.21 - Severe sepsis with septic shock Status: Acute Assessment and Plan: Resolved Patient in shock, likely related to the gangrene, aspiration pneumonia, status post cardiac arrest 02/28/2024: Blood cultures have been obtained and negative Off vasopressors and IV fluids Status post 10 days of antibiotics (5) NSTEMI (non-ST elevated myocardial infarction): Code(s): I21.4 - Non-ST elevation (NSTEMI) myocardial infarction Status: Acute Assessment and Plan: Increasing troponins, -EKG showed sinus rhythm with T-wave changes in V1 to V5 -appreciate cardiology evaluation and recommendation -Continue aspirin and high-dose a statin -will hold Brilinta. Resumption per General surgery - beta-bradyen, losartan are on hold due to soft blood pressure -03/02 heparin infusion was discontinued after 48 hours for NSTEMI by cardiology (6) Gangrene of right foot: Code(s): I96 - Gangrene, not elsewhere classified Status: Acute Assessment and Plan: CTA showed peripheral arterial disease with total occlusion of the right anterior and posterior tibial arteries and right peroneal artery with distal reconstitution of peroneal artery. This extensive gangrene of the right foot with gas seen on CT of the foot. General surgery spoke to the patient in the ER on the day of admission on 02/27 patient at that time agreed for below-knee amputation. Plan was to do a below- knee amputation on 02/29/2024 but patient had a cardiac arrest that night secondary to sepsis. Surgery at that time was deferred. Patient now is intubated sedated and unable to sign his consent.. Patient has no family and [facility] no visitor. He has 1 son which no one has been able to get hold off right several attempts. Considering patient has gangrene of the foot with no vascular supply leading to sepsis and if untreatable lead to his , Dr. Johns will proceed with amputation today, 03/05/2024. Dr. Collins and Dr. Johns has signed 2 physician consent considering patient's clearly expressed wishes prior to cardiac arrest at the time of admission, his current situation and inability to sign the consent form by himself at this time. 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 -complete 5 days of clindamycin 03/13: Discussed with surgery, there is flexion contractures of his amputation which may hinder in him getting prosthetics, patient may require above knee amputation (7) Osteomyelitis of toe of right foot: Code(s): M86.9 - Osteomyelitis, unspecified Status: Chronic Assessment and Plan: As above (8) Peripheral vascular disease: Code(s): I73.9 - Peripheral vascular disease, unspecified Status: Chronic Assessment and Plan: Patient has history of peripheral vascular disease, coronary artery disease -started on aspirin, patient will require Brilinta since he had a STEMI in 2020 but currently holding Brilinta due to surgery and bleeding (9) Type 2 diabetes mellitus: Qualifiers: 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 complication status: with other specified complication 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 [facility] insulin use: with long distance operator use Qualified Code(s): E11.69 - Type 2 diabetes mellitus with other specified complication; Z79.4 - [facility] (current) use of insulin Code(s): E11.9 - Type 2 diabetes mellitus without complications Status: Acute Assessment and Plan: Currently on sliding scale insulin, Accu-Cheks Hemoglobin A1c this admission is 8.2 Continue Lantus (10) Chronic obstructive pulmonary disease: Code(s): J44.9 - Chronic obstructive pulmonary disease, unspecified Status: Chronic Assessment and Plan: Continue DuoNebs -continue Symbicort (11) Electrolyte abnormality: Code(s): E87.8 - Other disorders of electrolyte and fluid balance, not elsewhere classif ied Status: Acute Assessment and Plan: Hypernatremia, Increase free water flush -sodium levels are elevated but improving Plan DVT prophylaxis: Heparin subQ Stress ulcer prophylaxis: Protonix Nutrition: Tube feeds resume Code Status: Full code. Patient has no family available. Patient was extubated on 03/14 and I spoke to patient post extubation. I mentioned possibility of him needing re-intubation and he was agreeable stating that he is not ready to at this time. He stated that do whatever needs to be done to keep me alive. I also mentioned to him that if he gets reintubated and is unable to be weaned he will need tracheostomy and PEG tube placement and he states that he is agreeable to do it if needed. He did mention that he has some nephews in area which can be contacted. cancer registry coordinator was provided that information. Critical Care Time Spent: 30 minutes Due to a high probability of clinically significant, life threatening deterioration, the patient required my highest level of preparedness to intervene emergently and I personally spent this critical care time directly and personally managing the patient. This critical care time included obtaining a history; examining the patient; pulse oximetry; ordering and review of studies; arranging urgent treatment with development of a management plan; evaluation of patient's response to treatment; frequent reassessment; and discussions with other providers. It was exclusive of separately billable procedures and treating other patients and teaching time. Please see Assessment and Plan section and the rest of the note for further information on patient assessment and treatment This dictation may have been done utilizing a voice recognition system. Attempts have been made to correct errors. However, there may be uncorrected grammatical, spelling, and recognitions errors present. Subjective Date/time seen: 03/15/24 Patient was extubated after a successful weaning trial yesterday. Initially patient was doing well on nasal cannula. Later in the evening patient became more hypoxic with increased respiratory distress. Patient also developed tachycardia tachypnea diaphoresis. Patient was unable to speak full sentences. Patient was intubated and placed on mechanical ventilation Sedated with propofol and fentanyl. Interval history: Reason for consult: Status post PEA arrest, right foot gangrene with cellulitis, shock 02/27: Intubated 03/05:Right below-knee amputation with placement of posterior Ortho Glass splint 03/14: extubated and reintubated Review of Systems Review of Systems: ROS unobtainable: Yes unobtainable due to endotracheal tube, unobtainable due to medical condition and unobtainable due to mental status Exam Narrative: General: Patient intubated and sedated, in no acute distress HEENT:, pupils are equal and reactive from a sclera is clear Neck:? supple Respiratory:? Coarse breath sounds bilaterally, decreased at bases, adequate air entry, no wheezing Cardiac:? S1-S2 normal, regular rate and rhythm Abdomen:? Soft, nontender, nondistended, normoactive bowel sounds Extremities:? Right BKA stump under the dressing. Left dorsalis pedis is dopplerable Neuro:? Patient is intubated, on Precedex infusion opens his eyes spontaneously, follows simple commands Skin:? Patient has maceration of his perianal area, pressure ulcer on his buttocks. Psych:? Unable to assess at this time Objective Data Vital Signs Vital Signs: Vital Signs - 24 hr 03/14/24 11:02 03/14/24 11:17 03/14/24 11:32 Temperature 37.8 C H 37.9 C H Pulse Rate 100 104 H 109 H Respiratory Rate 24 H 24 H 24 H Blood Pressure 120/59 L 115/71 Pulse Oximetry 100 100 Oxygen Delivery Oxygen Flow Rate Fraction of Inspired Oxygen 03/14/24 12:32 03/14/24 13:32 03/14/24 14:32 Temperature 37.9 C H 38.1 C H 38.1 C H Pulse Rate 110 H 110 H 110 H Respiratory Rate 22 H 26 H 22 H Blood Pressure 109/51 L 131/76 145/77 H Pulse Oximetry 99 99 98 Oxygen Delivery Oxygen Flow Rate Fraction of Inspired Oxygen 03/14/24 12:00 03/14/24 12:00 03/14/24 14:00 Temperature 37.9 C H 38.1 C H Pulse Rate 99 109 H 110 H Respiratory Rate 23 H 25 H Blood Pressure 116/64 135/62 Pulse Oximetry 99 96 Oxygen Delivery Oxygen Flow Rate Fraction of Inspired Oxygen 03/14/24 12:00 03/14/24 15:00 03/14/24 15:09 Temperature Pulse Rate 110 H 115 H 112 H Respiratory Rate 23 H 24 H 24 H Blood Pressure Pulse Oximetry 99 Oxygen Delivery Nasal Cannula Oxygen Flow Rate 2 Fraction of Inspired Oxygen 03/14/24 12:00 03/14/24 14:00 03/14/24 16:00 Temperature 38.1 C H Pulse Rate 97 99 123 H Respiratory Rate 22 H 24 H 27 H Blood Pressure 132/62 Pulse Oximetry 96 Oxygen Delivery Oxygen Flow Rate Fraction of Inspired Oxygen 03/14/24 16:00 03/14/24 16:00 03/14/24 16:00 Temperature Pulse Rate 110 H 105 H 120 H Respiratory Rate 24 H 24 H Blood Pressure Pulse Oximetry 98 Oxygen Delivery Nasal Cannula Oxygen Flow Rate 2 Fraction of Inspired Oxygen 03/14/24 18:00 03/14/24 18:00 03/14/24 18:00 Temperature 37.9 C H Pulse Rate 118 H 118 H 113 H Respiratory Rate 26 H 25 H Blood Pressure 123/70 Pulse Oximetry 98 Oxygen Delivery Oxygen Flow Rate Fraction of Inspired Oxygen 03/14/24 20:00 03/14/24 20:07 03/14/24 20:09 Temperature Pulse Rate 136 H 129 H 129 H Respiratory Rate 26 H 24 H Blood Pressure Pulse Oximetry 95 Oxygen Delivery Nasal Cannula Oxygen Flow Rate 2 Fraction of Inspired Oxygen 03/14/24 20:00 03/14/24 20:00 03/14/24 20:00 Temperature 37.7 C H Pulse Rate 136 H 127 H 134 H Respiratory Rate 31 H 25 H Blood Pressure 162/90 H Pulse Oximetry 96 95 Oxygen Delivery Nasal Cannula Oxygen Flow Rate 2 Fraction of Inspired Oxygen 03/14/24 22:00 03/14/24 22:00 03/14/24 23:35 Temperature 37.6 C H Pulse Rate 127 H 127 H 145 H Respiratory Rate 25 H 34 H Blood Pressure 128/74 Pulse Oximetry 95 Oxygen Delivery Oxygen Flow Rate Fraction of Inspired Oxygen 03/14/24 23:35 03/14/24 23:30 03/15/24 00:00 Temperature Pulse Rate 137 H 140 H 123 H Respiratory Rate 34 H 29 H Blood Pressure Pulse Oximetry 97 Oxygen Delivery Mechanical Ventilation Oxygen Flow Rate Fraction of Inspired Oxygen 60 03/15/24 00:55 03/15/24 00:00 03/15/24 01:00 Temperature Pulse Rate 115 H 123 H 114 H Respiratory Rate 26 H 29 H 25 H Blood Pressure Pulse Oximetry Oxygen Delivery Oxygen Flow Rate Fraction of Inspired Oxygen 03/15/24 01:10 03/15/24 00:00 03/15/24 00:00 Temperature 37.3 C Pulse Rate 112 H 120 H 121 H Respiratory Rate 21 H 29 H Blood Pressure 112/67 Pulse Oximetry 97 Oxygen Delivery Oxygen Flow Rate Fraction of Inspired Oxygen 03/14/24 23:00 03/14/24 23:15 03/15/24 00:00 Temperature 37.7 C H 37.7 C H Pulse Rate 155 H 154 H 121 H Respiratory Rate 30 H 35 H 29 H Blood Pressure 146/93 H Pulse Oximetry 100 97 Oxygen Delivery Mechanical Ventilation Oxygen Flow Rate Fraction of Inspired Oxygen 03/15/24 01:44 03/15/24 02:02 03/15/24 02:02 Temperature Pulse Rate 108 H 110 H 110 H Respiratory Rate 27 H 24 H 24 H Blood Pressure Pulse Oximetry Oxygen Delivery Oxygen Flow Rate Fraction of Inspired Oxygen 03/15/24 02:00 03/15/24 02:00 03/15/24 01:42 Temperature 36.9 C Pulse Rate 110 H 110 H 108 H Respiratory Rate 24 H 24 H Blood Pressure 100/62 Pulse Oximetry 98 Oxygen Delivery Oxygen Flow Rate Fraction of Inspired Oxygen 03/15/24 01:48 03/15/24 01:49 03/14/24 23:15 Temperature Pulse Rate 109 H 109 H 154 H Respiratory Rate 25 H 35 H Blood Pressure Pulse Oximetry 99 100 Oxygen Delivery Mechanical Ventilation Venturi Mask Oxygen Flow Rate 15 Fraction of Inspired Oxygen 50 03/15/24 04:00 03/15/24 05:00 03/15/24 04:00 Temperature Pulse Rate 101 H 96 101 H Respiratory Rate 19 16 19 Blood Pressure Pulse Oximetry Oxygen Delivery Oxygen Flow Rate Fraction of Inspired Oxygen 03/15/24 04:00 03/15/24 04:00 03/15/24 06:00 Temperature 36.8 C Pulse Rate 101 H 101 H 97 Respiratory Rate 19 19 16 Blood Pressure 98/61 L Pulse Oximetry 98 98 Oxygen Delivery Mechanical Ventilation Oxygen Flow Rate Fraction of Inspired Oxygen 03/15/24 06:00 03/15/24 06:00 03/15/24 04:00 Temperature 36.6 C Pulse Rate 97 97 101 H Respiratory Rate 16 16 Blood Pressure 96/63 L Pulse Oximetry 98 Oxygen Delivery Oxygen Flow Rate Fraction of Inspired Oxygen 03/15/24 06:00 03/15/24 05:36 03/15/24 07:48 Temperature Pulse Rate 97 98 100 Respiratory Rate Blood Pressure Pulse Oximetry 99 99 Oxygen Delivery Mechanical Ventilation Mechanical Ventilation Oxygen Flow Rate Fraction of Inspired Oxygen 45 40 03/15/24 07:48 03/15/24 08:05 03/15/24 08:20 Temperature Pulse Rate 100 103 H 101 H Respiratory Rate 17 18 16 Blood Pressure Pulse Oximetry Oxygen Delivery Oxygen Flow Rate Fraction of Inspired Oxygen 03/15/24 08:30 03/15/24 10:26 Temperature Pulse Rate 109 H 97 Respiratory Rate 16 Blood Pressure Pulse Oximetry 100 Oxygen Delivery Mechanical Ventilation Oxygen Flow Rate Fraction of Inspired Oxygen 40 Intake/Output Intake/Output: Intake & Output 03/12/24 03/13/24 03/14/24 03/15/24 23:59 23:59 23:59 23:59 Intake Total 1929.6 2035.4 2035.9 111.5 Output Total 2250 2700 1525 950 Balance -320.4 -664.6 510.9 -838.5 Meds/Results Medications: Active Medications Generic Name Dose Route Start Last Admin Trade Name Freq PRN Reason Stop Dose Admin Acetaminophen 500 mg 03/08/24 10:18 03/13/24 09:24 Acetaminophen 500 Mg Tablet FEED TUBE 500 mg Q6H PRN Administration Pain Rated 1-3 Albuterol/Ipratropium 3 ml 02/29/24 02:00 03/15/24 07:48 Ipratropium 0.5 Mg/Albuterol Sulfate 2.5 Mg Ampul.Neb 3 Ml INHALATION 3 ml Q6HRT JASON Administration Alteplase, Recombinant 2 mg 03/06/24 09:45 03/06/24 13:10 Alteplase 2 Mg Vial (Cathflo) IV PUSH 2 mg ONCE PRN Administration Line Occlusion Aspirin 81 mg 03/09/24 08:00 03/15/24 08:56 Aspirin 81 Mg Chewable Tablet FEED TUBE 81 mg DAILY@0800 JASON Administration Dextrose 12.5 gm 02/28/24 19:23 Dextrose 50% 25 Gm/50 Ml Syringe IV PUSH PRN PRN Hypoglycemia Protocol Glucagon 1 mg 02/28/24 19:23 Glucagon For Inj 1 Mg Vial IM PRN PRN Hypoglycemia Protocol Glucose 15 gm 03/08/24 10:19 Glucose Oral Gel 15 Gm Of Glucse In 37.5 Gm Tube FEED TUBE PRN PRN Hypoglycemia Protocol Heparin Sodium (Porcine) 5,000 units 03/03/24 14:00 03/15/24 06:25 Heparin Sodium 5,000 Units/Ml Vial SUB-Q 5,000 units Q8HR JASON Administration Hydralazine HCl 20 mg 03/08/24 10:06 Hydralazine Hcl 20 Mg/Ml Vial IV PUSH Q4HR PRN Hypertension Dextrose 1,000 mls @ 100 mls/hr 02/28/24 19:23 Dextrose 5% 1,000 Ml IVPB PRN PRN Hypoglycemia Protocol Dexmedetomidine HCl 400 mcg in 100 mls @ 0 mls/hr 03/11/24 21:50 03/14/24 18:00 Precedex 400 Mcg/100 Ml IV CONT 0 mcg/kg/hr .Q0M JASON 0 mls/hr Titration Protocol Dextrose/Sodium Chloride 1,000 mls @ 30 mls/hr 03/14/24 18:50 03/14/24 19:15 Dextrose 5% Sodium Chloride 0.9% IV CONT 30 mls/hr .Q24H JASON Administration Fentanyl Citrate 2,500 mcg in 250 mls @ 10 mls/hr 03/14/24 23:20 03/15/24 06:00 Fentanyl 2,500 Mcg/Ns 250 Ml IV CONT 100 mcg/hr .Q25H JASON 10 mls/hr Titration Protocol 100 MCG/HR Propofol 100 mls @ 12.156 mls/hr 03/14/24 23:20 03/15/24 08:30 Diprivan IV CONT 20 mcg/kg/min .Q8H14M JASON 12.16 mls/hr Titration Protocol 20 MCG/KG/MIN Insulin Aspart 3 - 6 units 03/01/24 00:00 03/15/24 06:25 Insulin Aspart (*Bkc) 100 Units/Ml SUB-Q 3 units Q6H JASON Administration Protocol Insulin Glargine 55 units 03/15/24 09:00 03/15/24 09:00 Insulin Glargine (*Bkc) 100 Units/Ml SUB-Q 55 units DAILY JASON Administration Labetalol HCl 20 mg 03/08/24 10:06 03/08/24 16:48 Labetalol Hcl Inj 100 Mg/20 Ml Vial IV PUSH 20 mg Q4H PRN Administration SBP > 160 and HR> 60 -1st choice Losartan Potassium 50 mg 03/08/24 10:15 03/13/24 09:25 Losartan Potassium 50 Mg Tablet FEED TUBE 50 mg DAILY JASON Administration Metoprolol Tartrate 50 mg 03/08/24 10:15 03/13/24 09:25 Metoprolol Tartrate 50 Mg Tab FEED TUBE 50 mg Q12HR JASON Administration Multi-Ingred Cream/Lotion/Oil/Oint 1 applic 03/15/24 09:00 03/15/24 08:57 Mineral Oil/White Petrolatum Ointment EACH EYE 1 applic Q12HR JASON Administration Pantoprazole Sodium 40 mg 03/02/24 09:00 03/15/24 08:58 Pantoprazole Sodium Iv 40 Mg Vial IV PUSH 40 mg Q12HR JASON Administration Sodium Chloride 10 ml 02/29/24 06:00 03/15/24 06:45 Central Line Flush IV PUSH 10 ml Q8HR JASON Administration Sodium Chloride 20 ml 02/28/24 23:37 Central Line Flush IV PUSH PRN PRN after blood draws Radiology Results: ITS Impressions Lower Extremity CTA 02/28/24 14:54 IMPRESSION: 1. 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 2. Moderate stenosis of right popliteal artery. 3. Osteomyelitis involving first proximal and distal phalanges and head of first metatarsal. Head CT 02/29/24 05:55 Impression: No intracranial hemorrhage, mass, or acute infarct. Stable chronic encephalomalacia in the high left parietal lobe. Atrophy and chronic white matter changes, as above. Chest/Abdomen/Pelvis CTA 02/29/24 06:02 Impression: Extensive right upper lobe consolidation and more mild right middle lobe consolidation, consistent with pneumonia. Consider aspiration pneumonia. Moderate to large right pleural effusion with complete atelectasis of the right lower lobe. Moderate left pleural effusion with minimal left basilar atelectasis. Small pericardial effusion. No definite acute abnormality in the abdomen or pelvis. Chronic compression fractures, as above. Renal Ultrasound 03/03/24 15:45 IMPRESSION: 1. Normal kidneys without hydronephrosis. 2. Small amount of ascites in the abdomen and pelvis. Thoracentesis Ultrasound 03/08/24 09:35 IMPRESSION: 1. Successful ultrasound-guided thoracentesis yielding 550 mL of clear, yellow fluid. Venous Doppler Study 03/11/24 13:58 IMPRESSION: 1. Patent bilateral upper extremity veins. No evidence of venous thrombosis. Abdomen Ultrasound 03/13/24 16:52 IMPRESSION: 1. No etiology for abnormal liver function tests. 2. Normal hepatic veins and main portal vein. Right and left portal veins and proper hepatic artery not evaluated. 3. Right pleural effusion. Vascular Ultrasound 03/13/24 16:52 IMPRESSION: 1. No etiology for abnormal liver function tests. 2. Normal hepatic veins and main portal vein. Right and left portal veins and proper hepatic artery not evaluated. 3. Right pleural effusion. Abdomen X-Ray 03/15/24 00:08 IMPRESSION: Nasogastric tube with the tip in the fundus of the stomach. Slight advancement is advised. Chest X-Ray 03/15/24 07:51 IMPRESSION: 1. Nasogastric tube tip just below level of the gastroesophageal junction. Would recommend advancement by 8-[address] the proximal side-port below level of the gastroesophageal junction. 2. Bilateral airspace opacities at the medial left lower lung zone and more dif fusely throughout the right lung collateral with interval increase consistent with likely increasing small to moderate-sized right pleural effusion and possible small left pleural effusion with associated atelectasis, pneumonia, pulmonary edema or some combination thereof. Labs Labs: Laboratory Results - last 24 hr 03/05/24 03/14/24 03/14/24 15:29 09:25 10:39 WBC RBC Hgb Hct MCV MCH MCHC RDW Plt Count MPV PT INR Puncture Site Left radial ABG pH 7.534 H* ABG pCO2 33.2 L ABG pO2 92.2 ABG PO2/FiO2 Ratio 3.07 ABG HCO3 27.4 H ABG O2 Saturation 97.8 ABG O2 Content 10.0 L ABG Base Excess 4.5 A-a Gradient 82.7 Oxyhemoglobin 95.8 Carboxyhemoglobin Methemoglobin Reduced Hemoglobin Total Hemoglobin 7.3 L* O2 Delivery Device Ventilator O2 Liters/Min Not Reportable Minute Volume Not Reportable Vent Rate Not Reportable Vent Mode Spontaneous FiO2 30 Tidal Volume Not Reportable PEEP 5 Peak Inspir Pressure Not Reportable Pressure Support 5 Sodium Potassium Chloride Carbon Dioxide Anion Gap BUN Creatinine Estim Creat Clear Calc Estimated GFR Glucose POC Capillary Glucose Calcium Magnesium Total Bilirubin AST ALT Alkaline Phosphatase Total Protein Albumin Triglycerides Blood Type O Positive Antibody Screen Negative Crossmatch See Detail See Detail 03/14/24 03/14/24 03/14/24 12:28 16:19 18:31 WBC RBC Hgb Hct MCV MCH MCHC RDW Plt Count MPV PT INR Puncture Site ABG pH ABG pCO2 ABG pO2 ABG PO2/FiO2 Ratio ABG HCO3 ABG O2 Saturation ABG O2 Content ABG Base Excess A-a Gradient Oxyhemoglobin Carboxyhemoglobin Methemoglobin Reduced Hemoglobin Total Hemoglobin O2 Delivery Device O2 Liters/Min Minute Volume Vent Rate Vent Mode FiO2 Tidal Volume PEEP Peak Inspir Pressure Pressure Support Sodium Potassium Chloride Carbon Dioxide Anion Gap BUN Creatinine Estim Creat Clear Calc Estimated GFR Glucose POC Capillary Glucose 163 H 105 95 Calcium Magnesium Total Bilirubin AST ALT Alkaline Phosphatase Total Protein Albumin Triglycerides Blood Type Antibody Screen Crossmatch 03/14/24 03/15/24 03/15/24 20:19 00:01 01:12 WBC RBC Hgb Hct MCV MCH MCHC RDW Plt Count MPV PT INR Puncture Site Right radial ABG pH 7.452 H ABG pCO2 36.3 ABG pO2 151.4 H ABG PO2/FiO2 Ratio 2.52 ABG HCO3 24.8 ABG O2 Saturation 99.1 ABG O2 Content 13.3 L ABG Base Excess 0.9 A-a Gradient 236.5 Oxyhemoglobin 98.5 Carboxyhemoglobin 0.6 Methemoglobin 0.0 Reduced Hemoglobin 0.9 Total Hemoglobin 9.4 L O2 Delivery Device Ventilator O2 Liters/Min Not Reportable Minute Volume Not Reportable Vent Rate 16 Vent Mode Cmv FiO2 60 Tidal Volume 380 PEEP 5 Peak Inspir Pressure Not Reportable Pressure Support Not Reportable Sodium Potassium Chloride Carbon Dioxide Anion Gap BUN Creatinine Estim Creat Clear Calc Estimated GFR Glucose POC Capillary Glucose 103 173 H Calcium Magnesium Total Bilirubin AST ALT Alkaline Phosphatase Total Protein Albumin Triglycerides Blood Type Antibody Screen Crossmatch 03/15/24 03/15/24 03/15/24 04:30 04:35 05:09 WBC 13.5 H RBC 3.03 L Hgb 8.3 L Hct 26.7 L MCV 88.1 MCH 27.4 MCHC 31.1 L RDW 18.3 H Plt Count 223 MPV 11.7 H PT 16.7 H INR 1.3 Puncture Site Left radial ABG pH 7.450 ABG pCO2 36.2 ABG pO2 119.7 H ABG PO2/FiO2 Ratio 2.66 ABG HCO3 24.6 ABG O2 Saturation 98.5 ABG O2 Content 13.8 L ABG Base Excess 0.8 A-a Gradient 160.0 Oxyhemoglobin 97.6 Carboxyhemoglobin 0.7 Methemoglobin 0.3 Reduced Hemoglobin 1.4 Total Hemoglobin 9.9 L O2 Delivery Device Ventilator O2 Liters/Min Not Reportable Minute Volume Not Reportable Vent Rate 16 Vent Mode Cmv FiO2 45 Tidal Volume 380 PEEP 5 Peak Inspir Pressure Not Reportable Pressure Support Not Reportable Sodium 144 Potassium 3.8 Chloride 109 H Carbon Dioxide 29 Anion Gap 6 BUN 24 H Creatinine 0.90 Estim Creat Clear Calc 82 Estimated GFR > 60 Glucose 209 H POC Capillary Glucose 201 H Calcium 7.7 L Magnesium 2.3 Total Bilirubin 0.8 AST 194 H ALT 394 H Alkaline Phosphatase 467 H Total Protein 6.0 L Albumin 2.5 L Triglycerides 116 Blood Type Antibody Screen Crossmatch 03/15/24 03/15/24 06:04 09:04 WBC RBC Hgb Hct MCV MCH MCHC RDW Plt Count MPV PT INR Puncture Site ABG pH ABG pCO2 ABG pO2 ABG PO2/FiO2 Ratio ABG HCO3 ABG O2 Saturation ABG O2 Content ABG Base Excess A-a Gradient Oxyhemoglobin Carboxyhemoglobin Methemoglobin Reduced Hemoglobin Total Hemoglobin O2 Delivery Device O2 Liters/Min Minute Volume Vent Rate Vent Mode FiO2 Tidal Volume PEEP Peak Inspir Pressure Pressure Support Sodium Potassium Chloride Carbon Dioxide Anion Gap BUN Creatinine Estim Creat Clear Calc Estimated GFR Glucose POC Capillary Glucose 220 H 221 H Calcium Magnesium Total Bilirubin AST ALT Alkaline Phosphatase Total Protein Albumin Triglycerides Blood Type Antibody Screen Crossmatch Quality VTE Prophylaxis VTE prophylaxis: pharmacologic ordered
[2024-03-15 12:20] LABS: Glucose Point of Care 254 mg/dl (65-105)
[2024-03-15] MEDS: PROPOFOL IV EMULSION 100 ML 6.08 MG IV CONT (12:23)
[2024-03-15] MEDS: methylPREDNISolone SOD SUCC 40 MG VIAL IV PUSH ×2 (12:23→17:54)
[2024-03-15] MEDS: NOREPINEPHRINE 8 MG/D5W 250 ML 8 MG/250 ML BAG 9.38 MG IV CONT (13:44)
[2024-03-15] MEDS: dexmedeTOMIDine 400 MCG/100 ML 400 MCG/100 ML BAG IV CONT (15:03)
[2024-03-15 16:34] LABS: Glucose Point of Care 279 mg/dl (65-105)
[2024-03-15 19:36] LABS: Glucose Point of Care 218 mg/dl (65-105)
[2024-03-15] MEDS: dexmedeTOMIDine 400 MCG/100 ML 400 MCG/100 ML BAG 12.41 MCG IV CONT (22:41)
[2024-03-16] VITALS (64 sets, daily range): BP systolic 105–134; BP diastolic 53–72; PULSE 77–118; RESP 8–21; TEMP 37.2–38.6; O2SAT 91–99
[2024-03-16] MEDS: methylPREDNISolone SOD SUCC 40 MG VIAL IV PUSH (00:03)
[2024-03-16] MEDS: FENTANYL 2,500MCG/NS250ML(*CRX 2,500 MCG/250 ML BAG 12.5 MCG IV CONT ×2 (00:05→18:17)
[2024-03-16 00:15] LABS: Glucose Point of Care 232 mg/dl (65-105)
--- NOTE | 2024-03-16 01:01 | PC.NURSE ---
Daylight Savings Time For Daylight Savings Time Ending in the Fall - Clocks are moved back. For Daylight Savings Time Beginning in the Spring - Clocks are moved ahead. For [facility], the time of change occurs at 0200 hrs. Time is taken from the client server developer. This entry on the patient's chart recognizes the change in time reflected during documentation. Example: 2 entries for vital signs may be charted for 0200 hrs.
[2024-03-16] MEDS: INSULIN ASPART (*BKC) 100 UNITS/ML SUB-Q ×5 (01:12→17:21)
[2024-03-16] MEDS: IPRATROPIUM 0.5 MG/ALBUTEROL SULFATE 2.5 MG AMPUL.NEB 3 ML INHALATION ×4 (01:59→19:54)
[2024-03-16] MEDS: dexmedeTOMIDine 400 MCG/100 ML 400 MCG/100 ML BAG 14.9 MCG IV CONT ×3 (04:30→17:46)
[2024-03-16 04:36] LABS: Hematocrit 27.2 % (42.0-52.0); Hemoglobin 8.4 g/dL (14.0-18.0); Mean Corpuscular HGB Conc 30.9 g/dl (32-36); Mean Corpuscular Hemoglobin 27.5 pg (26-34); Mean Corpuscular Volume 88.9 fl (80-100); Mean Platelet Volume 11.4 fl (7.4-10.4); Platelet Count Result 364 k/mm3 (150-375); Red Blood Count 3.06 M/mm3 (4.6-6.20); Red Cell Distribution Width 18.1 % (11.5-14.5); White Blood Count 17.7 K/mm3 (4.5-10.0)
[2024-03-16 04:44] LABS: Alanine Aminotransferase 272 U/L (6-50); Albumin Level 2.8 g/dL (3.5-5.1); Alkaline Phosphatase 406 U/L (38-126); Anion Gap 6 mmol/L (4-12); Aspartate Amino Transferase 79 U/L (17-59); Bilirubin,Total 0.7 mg/dL (0.2-1.3); Blood Urea Nitrogen 34 mg/dL (9-20); Calcium 8.2 mg/dL (8.4-10.2); Carbon Dioxide 30 mmol/L (22-30); Chloride 108 mmol/L (98-107); Estimated CRCL calculation 74 ml/min; Estimated Glomerular Filt Rate > 60; Glucose 258 mg/dL (65-110); Potassium 4.2 mmol/L (3.4-5.0); Sodium 144 mmol/L (137-145)
[2024-03-16 04:47] LABS: INR 1.3; Prothrombin Time 16.8 Seconds (11.1-14.7)
[2024-03-16 04:50] LABS: Alveolar/Arterial O2 Gradient 159.8 mmHg; Base Excess ABG 2.8 mEq/l (+/-2.0); Carboxyhemoglobin 0.9 % THb (0-2.0); Fractional Inspired Oxygen 40 %; Methemoglobin ABG 0.3 %THb (0-1.5); Oxygen Content ABG 12.2 %vol (16.0-22.0); Oxygen Saturation ABG 96.3 % (95.0-100.0); Oxyhemoglobin 94.7 % THb (90.0-100.0); PCO2 ABG 39.4 mmHg (35.0-45.0); PO2 ABG 80.1 mmHg (80.0-100.0); Reduced Hemoglobin 4.1 %THb (0-5.0); Total Hemoglobin 9.1 g/dL (12.0-18.0); pH ABG 7.453 (7.350-7.450)
[2024-03-16 04:53] LABS: Device VENTILATOR; Modified Allen's Test Unable to perform; Site Drawn RIGHT RADIAL
[2024-03-16 04:54] LABS: Arterial Blood Gas PEEP 5 cmH2O; Arterial Blood Gas Tidal Volume 380 ml; Arterial Blood Gas Vent Mode CMV; Arterial Blood Gas Ventilator rate 16 /MIN
[2024-03-16] MEDS: CENTRAL LINE FLUSH 10 ML IV PUSH ×3 (05:23→21:04)
[2024-03-16] MEDS: HEPARIN SODIUM 5,000 UNITS/ML VIAL 5000 UNITS SUB-Q ×3 (05:24→21:03)
--- NOTE | 2024-03-16 08:44 | WPDINTPN ---
Progress Note: A&P Assessment and Plan (1) Acute respiratory failure with hypoxia: Code(s): J96.01 - Acute respiratory failure with hypoxia Status: Acute Assessment and Plan: Acute respiratory failure likely related to cardiac arrest, aspiration pneumonia, NSTEMI, hypoxia, septic shock Worsening likely secondary to ARDS versus pulmonary edema Intubated 02/27 02/28 Chest CTA: Extensive right upper lobe consolidation and more mild right middle lobe consolidation, consistent with pneumonia. Consider aspiration pneumonia.Moderate to large right pleural effusion with complete atelectasis of the right lower lobe. Moderate left pleural effusion with minimal left basilar atelectasis. Small pericardial effusion. No definite acute abnormality in the abdomen or pelvis. Chronic compression fractures, as above . -03/07 right thoracentesis with 1 L fluid removed -03/08 left-sided thoracentesis 550 mL -03/11: patient was in pressure support ventilation 02/18, with decrease tidal volumes in the upper 200s. place patient back on CMV, I have asked the bedside RN to decrease the Precedex infusion once patient is more awake will place back on spontaneous breathing trials 03/12: Place patient on SBT 04/17, low tidal volumes, low respiratory rate. Patient had replaced back on CMV mode of ventilation. -even on ASV patient is breathing only 7-8 times a minute 03/13: Off Precedex infusion overnight, placed patient on pressure support ventilation 04/17, initially did well but not significantly tachycardic and tachypneic and in respiratory distress, patient was placed back on CMV mode of ventilation and low-dose was 03/14 8/5 PSV SBT done for more than 1 hour. RSBI, ABG and Vitals acceptable. Pt awake and following commands. Patient was extubated. Initially patient did well and was on nasal cannula and was able to communicate. Over 12 hours patient became more hypoxic with increased respiratory distress and tachypnea. I spoke to patient post extubation and was agreeable to re-intubation if needed and stated that 'he is not ready to ' and 'do what ever it takes'. He was re intubated at night. I also mentioned to him that he may need tracheostomy and PEG tube placement if he gets we intubated and is not weanable. He told me 'to proceed with it if needed'. Solu-Medrol IV given for airway edema and will be continued for 24 hours -completed course of Solu-Medrol -continue bronchodilators -on Precedex and fentanyl -chest x-ray and ABG reviewed -obtain CT chest (2) Elevated LFTs: Code(s): R79.89 - Other specified abnormal findings of blood chemistry Status: Acute Assessment and Plan: 03/13: Significant elevation in LFTs, AST 2280, ALT 988, alk-phos 722 -patient has been hemodynamically stable, no hypotension noted in the last 24-48 hours -statin discontinued. Hold Tylenol -no tenderness in the right upper, lower quadrant or epigastric region on exam -negative vital hepatitis panel, right upper quadrant ultrasound with Doppler negative for hepatic or portal vein thrombosis -patient evaluated by GI -levels improving. Monitor (3) Cardiac arrest with pulseless electrical activity: Code(s): I46.9 - Cardiac arrest, cause unspecified Status: Acute Assessment and Plan: Cardiac arrest, secondary to unknown etiology. Possible aspiration pneumonia, NSTEMI, hypoxia, septic shock, infection -see code blue sheet for the details -patient currently intubated, vasopressors for blood pressure support have been weaned off -appreciate cardiology following the patient 02/29/2024 echocardiogram Summary 1. Technically difficult study with limited views. 2. Left ventricular chamber dimension is normal. 3. Left ventricular systolic function is mildly reduced, estimated at 45-50%. The apex appears to be hypokinetic. 4. There is mildly increased left ventricular wall thickness. 5. The left ventricular diastolic function is grade I diastolic dysfunction. 6. Right ventricular systolic function is normal. 7. Left atrial chamber dimension is moderately enlarged. 8. There is mild to moderate tricuspid valve regurgitation. 9. There is small anterior pericardial effusion. (4) Septic shock: Code(s): A41.9 - Sepsis, unspecified organism; R65.21 - Severe sepsis with septic shock Status: Acute Assessment and Plan: Resolved Patient in shock, likely related to the gangrene, aspiration pneumonia, status post cardiac arrest 02/28/2024: Blood cultures have been obtained and negative Off vasopressors and IV fluids Status post 10 days of antibiotics 03/16 low-grade fever increase in WBC Will obtain CT scan, repeat blood cultures, also check sputum and urine cultures, change Leland (5) NSTEMI (non-ST elevated myocardial infarction): Code(s): I21.4 - Non-ST elevation (NSTEMI) myocardial infarction Status: Acute Assessment and Plan: Increasing troponins, -EKG showed sinus rhythm with T-wave changes in V1 to V5 -appreciate cardiology evaluation and recommendation -Continue aspirin and high-dose a statin -will hold Brilinta. Resumption per General surgery - beta-brayden, losartan are on hold due to soft blood pressure -03/02 heparin infusion was discontinued after 48 hours for NSTEMI by cardiology (6) Gangrene of right foot: Code(s): I96 - Gangrene, not elsewhere classified Status: Acute Assessment and Plan: CTA showed peripheral arterial disease with total occlusion of the right anterior and posterior tibial arteries and right peroneal artery with distal reconstitution of peroneal artery. This extensive gangrene of the right foot with gas seen on CT of the foot. General surgery spoke to the patient in the ER on the day of admission on 02/27 patient at that time agreed for below-knee amputation. Plan was to do a below-knee amputation on 02/29/2024 but patient had a cardiac arrest that night secondary to sepsis. Surgery at that time was deferred. Patient now is intubated sedated and unable to sign his consent.. Patient has no family and [facility] visitor. He has 1 son which no one has been able to get hold off right several attempts. Considering patient has gangrene of the foot with no vascular supply leading to sepsis and if untreatable lead to his , Dr. Johns will proceed with amputation today, 03/05/2024. Dr. Collins and Dr. Johns has signed 2 physician consent considering patient's clearly expressed wishes prior to cardiac arrest at the time of admission, his current situation and inability to sign the consent form by himself at this time. 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 -complete 5 days of clindamycin 03/13: Discussed with surgery, there is flexion contractures of his amputation which may hinder in him getting prosthetics, patient may require above knee amputation (7) Osteomyelitis of toe of right foot: Code(s): M86.9 - Osteomyelitis, unspecified Status: Chronic Assessment and Plan: As above (8) Peripheral vascular disease: Code(s): I73.9 - Peripheral vascular disease, unspecified Status: Chronic Assessment and Plan: Patient has history of peripheral vascular disease, coronary artery disease -started on aspirin, patient will require Brilinta since he had a STEMI in 2020 but currently holding Brilinta due to surgery and bleeding (9) Type 2 diabetes mellitus: Qualifiers: 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 complication status: with other specified complication 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 human development professor insulin use: with human development professor use Qualified Code(s): E11.69 - Type 2 diabetes mellitus with other specified complication; Z79.4 - assisted (current) use of insulin Code(s): E11.9 - Type 2 diabetes mellitus without complications Status: Acute Assessment and Plan: Currently on sliding scale insulin, Accu-Cheks Hemoglobin A1c this admission is 8.2 Continue Lantus (10) Chronic obstructive pulmonary disease: Code(s): J44.9 - Chronic obstructive pulmonary disease, unspecified Status: Chronic Assessment and Plan: Continue DuoNebs -continue Symbicort (11) Electrolyte abnormality: Code(s): E87.8 - Other disorders of electrolyte and fluid balance, not elsewhere classified Status: Acute Assessment and Plan: Hypernatremia, improved with free water flush Plan DVT prophylaxis: Heparin subQ Stress ulcer prophylaxis: Protonix Nutrition: Tube feeds resume Code Status: Full code. 03/15 Patient has no family available. Patient was extubated on 03/14 and I spoke to patient post extubation. I mentioned possibility of him needing re-intubation and he was agreeable stating that he is not ready to at this time. He stated that do whatever needs to be done to keep me alive. I also mentioned to him that if he gets reintubated and is unable to be weaned he will need tracheostomy and PEG tube placement and he states that he is agreeable to do it if needed. He did mention that he has some nephews in area which can be contacted. coordinator integrated marketing was provided that information. Critical Care Time Spent: 30 minutes Due to a high probability of clinically significant, life threatening deterioration, the patient required my highest level of preparedness to intervene emergently and I personally spent this critical care time directly and personally managing the patient. This critical care time included obtaining a history; examining the patient; pulse oximetry; ordering and review of studies; arranging urgent treatment with development of a management plan; evaluation of patient's response to treatment; frequent reassessment; and discussions with other providers. It was exclusive of separately billable procedures and treating other patients and teaching time. Please see Assessment and Plan section and the rest of the note for further information on patient assessment and treatment This dictation may have been done utilizing a voice recognition system. Attempts have been made to correct errors. However, there may be uncorrected grammatical, spelling, and recognitions errors present. Subjective Date/time seen: 03/16/24 Overnight events reviewed. Low-grade fever Continues to be on mechanical ventilation 40% FiO2 5 of PEEP Continues to be on low-dose Levophed Continues to be sedated with Precedex and fentanyl Tolerating tube feeds. Other Vitals acceptable Good urine output Interval history: Reason for consult: Status post PEA arrest, right foot gangrene with cellulitis, shock 02/27: Intubated 03/05:Right below-knee amputation with placement of posterior Ortho Glass splint 03/14: extubated and reintubated Review of Systems Review of Systems: ROS unobtainable: Yes unobtainable due to endotracheal tube, unobtainable due to medical condition and unobtainable due to mental status Exam Narrative: General: Patient intubated and sedated, in no acute distress HEENT:, pupils are equal and reactive from a sclera is clear Neck:? supple Respiratory:? Coarse breath sounds bilaterally, decreased at bases, adequate air entry, no wheezing Cardiac:? S1-S2 normal, regular rate and rhythm Abdomen:? Soft, nontender, nondistended, normoactive bowel sounds Extremities:? Right BKA stump under the dressing. Left dorsalis pedis is dopplerable Neuro:? Patient is intubated, on Precedex and fentanyl infusion opens his eyes on stimulation but does not follows simple commands Skin:? Patient has maceration of his perianal area, pressure ulcer on his buttocks. Psych:? Unable to assess at this time Objective Data Vital Signs Vital Signs: Vital Signs - 24 hr 03/15/24 10:26 03/15/24 10:00 03/15/24 10:30 Temperature Pulse Rate 97 101 H 101 H Respiratory Rate 16 16 Blood Pressure Pulse Oximetry 100 Oxygen Delivery Mechanical Ventilation Fraction of Inspired Oxygen 40 03/15/24 10:45 03/15/24 10:00 03/15/24 12:00 Temperature 36.6 C 36.6 C Pulse Rate 105 H 101 H 94 Respiratory Rate 16 16 16 Blood Pressure 93/51 L 101/62 Pulse Oximetry 100 99 Oxygen Delivery Fraction of Inspired Oxygen 03/15/24 13:15 03/15/24 10:00 03/15/24 12:00 Temperature Pulse Rate 95 100 109 H Respiratory Rate 16 16 16 Blood Pressure Pulse Oximetry Oxygen Delivery Fraction of Inspired Oxygen 03/15/24 12:00 03/15/24 12:23 03/15/24 13:17 Temperature Pulse Rate 102 H 102 H 94 Respiratory Rate 16 16 Blood Pressure Pulse Oximetry 99 Oxygen Delivery Mechanical Ventilation Fraction of Inspired Oxygen 40 03/15/24 13:17 03/15/24 13:26 03/15/24 13:44 Temperature Pulse Rate 94 95 98 Respiratory Rate 19 20 Blood Pressure 93/50 L Pulse Oximetry Oxygen Delivery Fraction of Inspired Oxygen 03/15/24 14:00 03/15/24 14:17 03/15/24 14:17 Temperature 36.6 C Pulse Rate 90 92 92 Respiratory Rate 16 16 Blood Pressure 104/56 L 100/61 Pulse Oximetry 99 Oxygen Delivery Fraction of Inspired Oxygen 03/15/24 13:00 03/15/24 14:00 03/15/24 15:03 Temperature Pulse Rate 95 92 112 H Respiratory Rate 16 16 16 Blood Pressure Pulse Oximetry Oxygen Delivery Fraction of Inspired Oxygen 03/15/24 15:03 03/15/24 16:00 03/15/24 16:07 Temperature 36.6 C Pulse Rate 112 H 112 H 112 H Respiratory Rate 16 16 16 Blood Pressure 112/65 Pulse Oximetry 98 Oxygen Delivery Fraction of Inspired Oxygen 03/15/24 16:09 03/15/24 16:10 03/15/24 16:47 Temperature Pulse Rate 112 H 112 H 104 H Respiratory Rate 16 Blood Pressure 112/65 Pulse Oximetry 97 Oxygen Delivery Mechanical Ventilation Fraction of Inspired Oxygen 40 03/15/24 17:00 03/15/24 16:35 03/15/24 16:30 Temperature Pulse Rate 106 H 109 H 111 H Respiratory Rate 16 16 Blood Pressure 117/70 Pulse Oximetry Oxygen Delivery Fraction of Inspired Oxygen 03/15/24 16:45 03/15/24 17:00 03/15/24 17:26 Temperature Pulse Rate 114 H 110 H 102 H Respiratory Rate Blood Pressure 120/74 125/73 115/60 Pulse Oximetry Oxygen Delivery Fraction of Inspired Oxygen 03/15/24 18:00 03/15/24 18:09 03/15/24 18:10 Temperature 36.8 C Pulse Rate 94 92 92 Respiratory Rate 16 16 16 Blood Pressure 89/58 L Pulse Oximetry 100 Oxygen Delivery Fraction of Inspired Oxygen 03/15/24 18:11 03/15/24 18:35 03/15/24 20:09 Temperature 36.8 C Pulse Rate 92 78 78 Respiratory Rate 16 Blood Pressure 89/58 L 84/56 L 104/69 Pulse Oximetry 100 Oxygen Delivery Fraction of Inspired Oxygen 03/15/24 20:15 03/15/24 20:21 03/15/24 20:00 Temperature Pulse Rate 80 80 79 Respiratory Rate 19 15 Blood Pressure Pulse Oximetry 100 Oxygen Delivery Mechanical Ventilation Fraction of Inspired Oxygen 40 03/15/24 20:00 03/15/24 20:00 03/15/24 22:03 Temperature Pulse Rate 79 79 91 Respiratory Rate 15 Blood Pressure 104/69 106/65 Pulse Oximetry 98 Oxygen Delivery Fraction of Inspired Oxygen 03/15/24 20:00 03/15/24 22:00 03/15/24 22:03 Temperature 36.9 C Pulse Rate 80 90 Respiratory Rate 18 Blood Pressure Pulse Oximetry Oxygen Delivery Fraction of Inspired Oxygen 03/15/24 22:00 03/15/24 22:00 03/15/24 22:00 Temperature Pulse Rate 90 90 90 Respiratory Rate 18 18 Blood Pressure 106/65 Pulse Oximetry Oxygen Delivery Fraction of Inspired Oxygen 03/15/24 22:41 03/15/24 22:41 03/15/24 20:00 Temperature Pulse Rate 87 87 80 Respiratory Rate 19 19 14 Blood Pressure Pulse Oximetry 100 Oxygen Delivery Mechanical Ventilation Fraction of Inspired Oxygen 40 03/16/24 00:00 03/16/24 00:00 03/16/24 00:00 Temperature Pulse Rate 98 98 98 Respiratory Rate 19 19 Blood Pressure 114/72 Pulse Oximetry Oxygen Delivery Fraction of Inspired Oxygen 03/16/24 00:05 03/16/24 00:05 03/15/24 23:00 Temperature Pulse Rate 88 88 87 Respiratory Rate 19 19 Blood Pressure Pulse Oximetry 99 Oxygen Delivery Mechanical Ventilation Fraction of Inspired Oxygen 40 03/16/24 00:22 03/16/24 00:00 03/16/24 00:00 Temperature 37.2 C Pulse Rate 87 88 88 Respiratory Rate 20 21 H Blood Pressure 114/72 Pulse Oximetry 98 98 Oxygen Delivery Mechanical Ventilation Fraction of Inspired Oxygen 40 03/15/24 21:00 03/15/24 23:00 03/16/24 01:00 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 Temperature 36.9 C 37.1 C 37.4 C Pulse Rate 90 90 88 Respiratory Rate 16 16 18 Blood Pressure 111/66 108/69 111/66 Pulse Oximetry 99 98 98 Oxygen Delivery Fraction of Inspired Oxygen 03/16/24 02:00 03/16/24 02:00 03/15/24 20:25 Temperature Pulse Rate 87 87 84 Respiratory Rate 18 20 Blood Pressure Pulse Oximetry 99 Oxygen Delivery Mechanical Ventilation Fraction of Inspired Oxygen 40 03/16/24 02:17 03/16/24 02:00 03/16/24 02:00 Temperature Pulse Rate 88 88 Respiratory Rate 16 Blood Pressure 112/68 126/68 Pulse Oximetry Oxygen Delivery Fraction of Inspired Oxygen 03/16/24 02:00 03/16/24 02:00 03/16/24 02:00 Temperature 37.9 C H Pulse Rate 88 88 88 Respiratory Rate 16 16 Blood Pressure 126/68 Pulse Oximetry 99 Oxygen Delivery Fraction of Inspired Oxygen 03/16/24 03:15 03/16/24 04:00 03/16/24 04:00 Temperature 37.8 C H Pulse Rate 101 H 99 98 Respiratory Rate 18 17 Blood Pressure 116/71 124/72 Pulse Oximetry 95 Oxygen Delivery Fraction of Inspired Oxygen 03/16/24 04:00 03/16/24 04:00 03/16/24 04:18 Temperature 37.7 C H Pulse Rate 98 98 108 H Respiratory Rate 17 17 13 Blood Pressure 124/72 Pulse Oximetry 95 Oxygen Delivery Fraction of Inspired Oxygen 03/16/24 04:30 03/16/24 04:30 03/16/24 04:51 Temperature Pulse Rate 105 H 105 H 98 Respiratory Rate 17 17 Blood Pressure Pulse Oximetry 95 Oxygen Delivery Mechanical Ventilation Fraction of Inspired Oxygen 40 03/16/24 04:00 03/16/24 04:00 03/16/24 05:16 Temperature Pulse Rate 98 98 97 Respiratory Rate 18 Blood Pressure 126/67 Pulse Oximetry 95 Oxygen Delivery Mechanical Ventilation Fraction of Inspired Oxygen 40 03/16/24 06:00 03/16/24 06:40 03/16/24 06:00 Temperature Pulse Rate 91 88 91 Respiratory Rate 15 14 15 Blood Pressure Pulse Oximetry Oxygen Delivery Fraction of Inspired Oxygen 03/16/24 06:00 03/16/24 06:00 03/16/24 06:45 Temperature Pulse Rate 91 91 Respiratory Rate Blood Pressure 115/64 115/64 Pulse Oximetry Oxygen Delivery Fraction of Inspired Oxygen 03/16/24 06:00 03/16/24 08:11 03/16/24 08:11 Temperature 37.9 C H Pulse Rate 91 90 90 Respiratory Rate 15 19 Blood Pressure 115/64 Pulse Oximetry 95 96 Oxygen Delivery Mechanical Ventilation Fraction of Inspired Oxygen 40 03/16/24 08:17 Temperature Pulse Rate 88 Respiratory Rate 20 Blood Pressure Pulse Oximetry Oxygen Delivery Fraction of Inspired Oxygen Intake/Output Intake/Output: Intake & Output 03/13/24 03/14/24 03/15/24 03/16/24 23:59 23:59 23:59 22:59 Intake Total 2035.4 2035.9 1152.7 1101.3 Output Total 2700 1525 2100 450 Balance -664.6 510.9 -947.3 651.3 Meds/Results Medications: Active Medications Generic Name Dose Route Start Last Admin Trade Name Freq PRN Reason Stop Dose Admin Acetaminophen 500 mg 03/08/24 10:18 03/13/24 09:24 Acetaminophen 500 Mg Tablet FEED TUBE 500 mg Q6H PRN Administration Pain Rated 1-3 Albuterol/Ipratropium 3 ml 02/29/24 02:00 03/16/24 08:11 Ipratropium 0.5 Mg/Albuterol Sulfate 2.5 Mg Ampul.Neb 3 Ml INHALATION 3 ml Q6HRT [facility] Administration Alteplase, Recombinant 2 mg 03/06/24 09:45 03/06/24 13:10 Alteplase 2 Mg Vial (Cathflo) IV PUSH 2 mg ONCE PRN Administration Line Occlusion Aspirin 81 mg 03/09/24 08:00 03/15/24 08:56 Aspirin 81 Mg Chewable Tablet FEED TUBE 81 mg DAILY@0800 [facility] Administration Dextrose 12.5 gm 02/28/24 19:23 Dextrose 50% 25 Gm/50 Ml Syringe IV PUSH PRN PRN Hypoglycemia Protocol Glucagon 1 mg 02/28/24 19:23 Glucagon For Inj 1 Mg Vial IM PRN PRN Hypoglycemia Protocol Glucose 15 gm 03/08/24 10:19 Glucose Oral Gel 15 Gm Of Glucse In 37.5 Gm Tube FEED TUBE PRN PRN Hypoglycemia Protocol Heparin Sodium (Porcine) 5,000 units 03/03/24 14:00 03/16/24 05:24 Heparin Sodium 5,000 Units/Ml Vial SUB-Q 5,000 units Q8HR JASON Administration Hydralazine HCl 20 mg 03/08/24 10:06 Hydralazine Hcl 20 Mg/Ml Vial IV PUSH Q4HR PRN Hypertension Dextrose 1,000 mls @ 100 mls/hr 02/28/24 19:23 Dextrose 5% 1,000 Ml IVPB PRN PRN Hypoglycemia Protocol Dexmedetomidine HCl 400 mcg in 100 mls @ 14.895 mls/hr 03/11/24 21:50 03/16/24 06:00 Precedex 400 Mcg/100 Ml IV CONT 0.6 mcg/kg/hr .Q6H43M JASON 14.9 mls/hr Titration Protocol 0.6 MCG/KG/HR Fentanyl Citrate 2,500 mcg in 250 mls @ 12.5 mls/hr 03/14/24 23:20 03/16/24 06:40 Fentanyl 2,500 Mcg/Ns 250 Ml IV CONT 125 mcg/hr .Q20H JASON 12.5 mls/hr Titration Protocol 125 MCG/HR Norepinephrine Bitartrate 8 mg in 250 mls @ 11.25 mls/hr 03/15/24 13:30 03/16/24 06:00 Levophed 8 Mg/D5w 250 Ml IV CONT 6 mcg/min .[id number] JASON 11.25 mls/hr Titration Protocol 6 MCG/MIN Insulin Aspart 3 - 6 units 03/15/24 17:00 03/16/24 05:23 Insulin Aspart (*Bkc) 100 Units/Ml SUB-Q 4 units Q4HR JASON Administration Protocol Insulin Glargine 55 units 03/15/24 09:00 03/15/24 09:00 Insulin Glargine (*Bkc) 100 Units/Ml SUB-Q 55 units DAILY JASON Administration Labetalol HCl 20 mg 03/08/24 10:06 03/08/24 16:48 Labetalol Hcl Inj 100 Mg/20 Ml Vial IV PUSH 20 mg Q4H PRN Administration SBP > 160 and HR> 60 -1st choice Multi-Ingred Cream/Lotion/Oil/Oint 1 applic 03/15/24 09:00 03/15/24 20:49 Mineral Oil/White Petrolatum Ointment EACH EYE 1 applic Q12HR JASON Administration Pantoprazole Sodium 40 mg 03/02/24 09:00 03/15/24 20:37 Pantoprazole Sodium Iv 40 Mg Vial IV PUSH 40 mg Q12HR JASON Administration Sodium Chloride 10 ml 02/29/24 06:00 03/16/24 05:23 Central Line Flush IV PUSH 10 ml Q8HR JASON Administration Sodium Chloride 20 ml 02/28/24 23:37 Central Line Flush IV PUSH PRN PRN after blood draws Radiology Results: ITS Impressions Lower Extremity CTA 02/28/24 14:54 IMPRESSION: 1. 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 2. Moderate stenosis of right popliteal artery. 3. Osteomyelitis involving first proximal and distal phalanges and head of first metatarsal. Head CT 02/29/24 05:55 Impression: No intracranial hemorrhage, mass, or acute infarct. Stable chronic encephalomalacia in the high left parietal lobe. Atrophy and chronic white matter changes, as above. Chest/Abdomen/Pelvis CTA 02/29/24 06:02 Impression: Extensive right upper lobe consolidation and more mild right middle lobe consolidation, consistent with pneumonia. Consider aspiration pneumonia. Moderate to large right pleural effusion with complete atelectasis of the right lower lobe. Moderate left pleural effusion with minimal left basilar atelectasis. Small pericardial effusion. No definite acute abnormality in the abdomen or pelvis. Chronic compression fractures, as above. Renal Ultrasound 03/03/24 15:45 IMPRESSION: 1. Normal kidneys without hydronephrosis. 2. Small amount of ascites in the abdomen and pelvis. Thoracentesis Ultrasound 03/08/24 09:35 IMPRESSION: 1. Successful ultrasound-guided thoracentesis yielding 550 mL of clear, yellow fluid. Venous Doppler Study 03/11/24 13:58 IMPRESSION: 1. Patent bilateral upper extremity veins. No evidence of venous thrombosis. Abdomen Ultrasound 03/13/24 16:52 IMPRESSION: 1. No etiology for abnormal liver function tests. 2. Normal hepatic veins and main portal vein. Right and left portal veins and proper hepatic artery not evaluated. 3. Right pleural effusion. Vascular Ultrasound 03/13/24 16:52 IMPRESSION: 1. No etiology for abnormal liver function tests. 2. Normal hepatic veins and main portal vein. Right and left portal veins and proper hepatic artery not evaluated. 3. Right pleural effusion. Abdomen X-Ray 03/15/24 00:08 IMPRESSION: Nasogastric tube with the tip in the fundus of the stomach. Slight advancement is advised. Chest X-Ray 03/16/24 07:00 IMPRESSION: 1. Small to moderate-sized bilateral pleural effusions with associated atelectasis or pneumonia. Labs Labs: Laboratory Results - last 24 hr 03/15/24 03/15/24 03/15/24 12:13 16:32 19:29 WBC RBC Hgb Hct MCV MCH MCHC RDW Plt Count MPV PT INR Puncture Site ABG pH ABG pCO2 ABG pO2 ABG PO2/FiO2 Ratio ABG HCO3 ABG O2 Saturation ABG O2 Content ABG Base Excess A-a Gradient Oxyhemoglobin Carboxyhemoglobin Methemoglobin Reduced Hemoglobin Total Hemoglobin O2 Delivery Device O2 Liters/Min Minute Volume Vent Rate Vent Mode FiO2 Tidal Volume PEEP Peak Inspir Pressure Pressure Support Sodium Potassium Chloride Carbon Dioxide Anion Gap BUN Creatinine Estim Creat Clear Calc Estimated GFR Glucose POC Capillary Glucose 254 H 279 H 218 H Calcium Total Bilirubin AST ALT Alkaline Phosphatase Total Protein Albumin 03/16/24 03/16/24 03/16/24 00:09 04:21 04:40 WBC 17.7 H RBC 3.06 L Hgb 8.4 L Hct 27.2 L MCV 88.9 MCH 27.5 MCHC 30.9 L RDW 18.1 H Plt Count 364 D MPV 11.4 H PT 16.8 H INR 1.3 Puncture Site Right radial ABG pH 7.453 H ABG pCO2 39.4 ABG pO2 80.1 ABG PO2/FiO2 Ratio 2.00 ABG HCO3 27.0 H ABG O2 Saturation 96.3 ABG O2 Content 12.2 L ABG Base Excess 2.8 A-a Gradient 159.8 Oxyhemoglobin 94.7 Carboxyhemoglobin 0.9 Methemoglobin 0.3 Reduced Hemoglobin 4.1 Total Hemoglobin 9.1 L O2 Delivery Device Ventilator O2 Liters/Min Not Reportable Minute Volume Not Reportable Vent Rate 16 Vent Mode Cmv FiO2 40 Tidal Volume 380 PEEP 5 Peak Inspir Pressure Not Reportable Pressure Support Not Reportable Sodium 144 Potassium 4.2 Chloride 108 H Carbon Dioxide 30 Anion Gap 6 BUN 34 H D Creatinine 1.00 Estim Creat Clear Calc 74 Estimated GFR > 60 Glucose 258 H POC Capillary Glucose 232 H Calcium 8.2 L Total Bilirubin 0.7 AST 79 H ALT 272 H Alkaline Phosphatase 406 H Total Protein 7.0 Albumin 2.8 L Quality VTE Prophylaxis VTE prophylaxis: pharmacologic ordered
[2024-03-16 10:44] LABS: Glucose Point of Care 272 mg/dl (65-105)
[2024-03-16] MEDS: INSULIN GLARGINE (*BKC) 100 UNITS/ML 55 UNITS SUB-Q (10:44)
[2024-03-16] MEDS: ASPIRIN 81 MG CHEWABLE TABLET FEED TUBE (10:44)
[2024-03-16] MEDS: PANTOPRAZOLE SODIUM IV 40 MG VIAL IV PUSH ×2 (10:44→21:03)
[2024-03-16] MEDS: MINERAL OIL/WHITE PETROLATUM OINTMENT 1 APPLIC EACH EYE ×2 (11:47→21:04)
[2024-03-16] MEDS: NOREPINEPHRINE 8 MG/D5W 250 ML 8 MG/250 ML BAG 11.25 MG IV CONT (11:52)
[2024-03-16 13:18] LABS: Glucose Point of Care 306 mg/dl (65-105)
[2024-03-16 17:21] LABS: Glucose Point of Care 220 mg/dl (65-105)
[2024-03-16] MEDS: METOCLOPRAMIDE HCL INJ 10 MG/2 ML VIAL IV PUSH (17:22)
[2024-03-16 21:41] LABS: Glucose Point of Care 181 mg/dl (65-105)
[2024-03-17] VITALS (72 sets, daily range): BP systolic 86–128; BP diastolic 49–71; PULSE 70–94; RESP 0–19; TEMP 36.7–38.2; O2SAT 95–99
[2024-03-17] MEDS: dexmedeTOMIDine 400 MCG/100 ML 400 MCG/100 ML BAG 17.38 MCG IV CONT ×2 (00:40→19:44)
[2024-03-17] MEDS: METOCLOPRAMIDE HCL INJ 10 MG/2 ML VIAL IV PUSH ×4 (00:40→18:18)
[2024-03-17 00:45] LABS: Glucose Point of Care 132 mg/dl (65-105)
[2024-03-17 01:11] LABS: Triglycerides 61 mg/dL (<150)
[2024-03-17] MEDS: IPRATROPIUM 0.5 MG/ALBUTEROL SULFATE 2.5 MG AMPUL.NEB 3 ML INHALATION ×4 (01:39→20:31)
[2024-03-17 03:35] LABS: Glucose Point of Care 137 mg/dl (65-105)
[2024-03-17 05:07] LABS: Base Excess ABG 2.2 mEq/l (+/-2.0); Fractional Inspired Oxygen 30 %; HCO3 ABG 26.4 mEq/l (22.0-26.0); Oxygen Content ABG 11.9 %vol (16.0-22.0); Oxygen Saturation ABG 97.3 % (95.0-100.0); PO2 ABG 91.1 mmHg (80.0-100.0); PO2 FiO2 Ratio Arterial Blood 3.04 %; Total Hemoglobin 8.7 g/dL (12.0-18.0); pH ABG 7.448 (7.350-7.450)
[2024-03-17 05:08] LABS: Device VENTILATOR; Modified Allen's Test Pass; Site Drawn RIGHT RADIAL
[2024-03-17 05:09] LABS: Arterial Blood Gas PEEP 5 cmH2O; Arterial Blood Gas Tidal Volume 380 ml; Arterial Blood Gas Vent Mode CMV; Arterial Blood Gas Ventilator rate 16 /MIN
[2024-03-17 05:38] LABS: Hematocrit 25.9 % (42.0-52.0); Hemoglobin 7.9 g/dL (14.0-18.0); Mean Corpuscular HGB Conc 30.5 g/dl (32-36); Mean Corpuscular Hemoglobin 27.6 pg (26-34); Mean Corpuscular Volume 90.6 fl (80-100); Mean Platelet Volume 10.6 fl (7.4-10.4); Platelet Count Result 303 k/mm3 (150-375); Red Blood Count 2.86 M/mm3 (4.6-6.20); Red Cell Distribution Width 18.3 % (11.5-14.5); White Blood Count 16.1 K/mm3 (4.5-10.0)
[2024-03-17 05:49] LABS: INR 1.4; Prothrombin Time 17.2 Seconds (11.1-14.7)
[2024-03-17 05:50] LABS: Alanine Aminotransferase 175 U/L (6-50); Albumin Level 2.6 g/dL (3.5-5.1); Alkaline Phosphatase 302 U/L (38-126); Anion Gap 4 mmol/L (4-12); Aspartate Amino Transferase 44 U/L (17-59); Bilirubin,Total 0.7 mg/dL (0.2-1.3); Blood Urea Nitrogen 39 mg/dL (9-20); Calcium 7.7 mg/dL (8.4-10.2); Carbon Dioxide 32 mmol/L (22-30); Chloride 109 mmol/L (98-107); Estimated CRCL calculation 74 ml/min; Estimated Glomerular Filt Rate > 60; Glucose 148 mg/dL (65-110); Magnesium 2.7 mg/dL (1.6-2.3); Sodium 145 mmol/L (137-145); Triglycerides 65 mg/dL (<150)
[2024-03-17] MEDS: HEPARIN SODIUM 5,000 UNITS/ML VIAL 5000 UNITS SUB-Q (06:13)
[2024-03-17] MEDS: CENTRAL LINE FLUSH 10 ML IV PUSH ×3 (06:15→20:49)
[2024-03-17] MEDS: dexmedeTOMIDine 400 MCG/100 ML 400 MCG/100 ML BAG 14.9 MCG IV CONT ×2 (06:48→13:13)
[2024-03-17 08:08] LABS: Add Urine Microscopic? YES; Appearance Urine Turbid (Clear); Bacteria Urine None Seen /hpf; Bilirubin Urine Negative (Negative); Blood Urine 3+ (Negative); Budding Yeast Urine Present /hpf; Color Urine Yellow (Yellow); Glucose Urine UA Negative (Negative); Granular Casts Urine Present /lpf; Hyaline Casts Urine Present /lpf; Ketones Urine Negative (Negative); Leukocyte Esterase Ur 2+ LEU/UL (Negative); Nitrate Urine Negative (Negative); Non Pathogenic Casts >20; Protein Urine 2+ mg/dL (Negative); RBC Urine 51-100 /hpf (0-2); Specific Grav Ur 1.025 (1.001-1.035); Squamous Epithelial Cell Urine None Seen /hpf (Few); Uric Acid Crystals Urine Present /hpf; WBC Clumps Urine Present /HPF; WBC Urine >100 /hpf (0-3); pH Urine 5.5 (5.0-9.0)
[2024-03-17 08:14] LABS: Glucose Point of Care 132 mg/dl (65-105)
[2024-03-17] MEDS: MINERAL OIL/WHITE PETROLATUM OINTMENT 1 APPLIC EACH EYE ×2 (08:23→20:49)
[2024-03-17] MEDS: PANTOPRAZOLE SODIUM IV 40 MG VIAL IV PUSH ×2 (08:23→20:48)
--- NOTE | 2024-03-17 09:12 | WPDINTPN ---
Progress Note: A&P Assessment and Plan (1) Acute respiratory failure with hypoxia: Code(s): J96.01 - Acute respiratory failure with hypoxia Status: Acute Assessment and Plan: Acute respiratory failure likely related to cardiac arrest, aspiration pneumonia, NSTEMI, hypoxia, septic shock Worsening likely secondary to ARDS versus pulmonary edema Intubated 02/27 02/28 Chest CTA: Extensive right upper lobe consolidation and more mild right middle lobe consolidation, consistent with pneumonia. Consider aspiration pneumonia.Moderate to large right pleural effusion with complete atelectasis of the right lower lobe. Moderate left pleural effusion with minimal left basilar atelectasis. Small pericardial effusion. No definite acute abnormality in the abdomen or pelvis. Chronic compression fractures, as above . -03/07 right thoracentesis with 1 L fluid removed -03/08 left-sided thoracentesis 550 mL -03/11: patient was in pressure support ventilation 02/18, with decrease tidal volumes in the upper 200s. place patient back on CMV, I have asked the bedside RN to decrease the Precedex infusion once patient is more awake will place back on spontaneous breathing trials 03/12: Place patient on SBT 04/17, low tidal volumes, low respiratory rate. Patient had replaced back on CMV mode of ventilation. -even on ASV patient is breathing only 7-8 times a minute 03/13: Off Precedex infusion overnight, placed patient on pressure support ventilation 04/17, initially did well but not significantly tachycardic and tachypneic and in respiratory distress, patient was placed back on CMV mode of ventilation and low-dose was 03/14 8/5 PSV SBT done for more than 1 hour. RSBI, ABG and Vitals acceptable. Pt awake and following commands. Patient was extubated. Initially patient did well and was on nasal cannula and was able to communicate. Over 12 hours patient became more hypoxic with increased respiratory distress and tachypnea. I spoke to patient post extubation and was agreeable to re-intubation if needed and stated that 'he is not ready to ' and 'do what ever it takes'. He was re intubated at night. I also mentioned to him that he may need tracheostomy and PEG tube placement if he gets we intubated and is not weanable. He told me 'to proceed with it if needed'. Solu-Medrol IV given for airway edema and will be continued for 24 hours -completed course of Solu-Medrol -continue bronchodilators -on Precedex and fentanyl -chest x-ray and ABG reviewed -CT scan shows large pleural effusions bilaterally. I will request IR for thoracentesis.. Patient is on minimal ventilator setting but has failed trials initially multiple times and then once extubated at BT intubated within 12 hours. I will treat try again after thoracentesis to see patient is weanable from the vent otherwise will proceed with trach and PEG as patient has been on ventilator for more than 2 weeks. (2) Elevated LFTs: Code(s): R79.89 - Other specified abnormal findings of blood chemistry Status: Acute Assessment and Plan: 03/13: Significant elevation in LFTs, AST 2280, ALT 988, alk-phos 722 -patient has been hemodynamically stable, no hypotension noted in the last 24-48 hours -statin discontinued. Hold Tylenol -no tenderness in the right upper, lower quadrant or epigastric region on exam -negative vital hepatitis panel, right upper quadrant ultrasound with Doppler negative for hepatic or portal vein thrombosis -patient evaluated by GI -levels improving. Monitor (3) Cardiac arrest with pulseless electrical activity: Code(s): I46.9 - Cardiac arrest, cause unspecified Status: Acute Assessment and Plan: Cardiac arrest, secondary to unknown etiology. Possible aspiration pneumonia, NSTEMI, hypoxia, septic shock, infection -see code blue sheet for the details -patient currently intubated, vasopressors for blood pressure support have been weaned off -appreciate cardiology following the patient 02/29/2024 echocardiogram Summary 1. Technically difficult study with limited views. 2. Left ventricular chamber dimension is normal. 3. Left ventricular systolic function is mildly reduced, estimated at 45-50%. The apex appears to be hypokinetic. 4. There is mildly increased left ventricular wall thickness. 5. The left ventricular diastolic function is grade I diastolic dysfunction. 6. Right ventricular systolic function is normal. 7. Left atrial chamber dimension is moderately enlarged. 8. There is mild to moderate tricuspid valve regurgitation. 9. There is small anterior pericardial effusion. (4) Septic shock: Code(s): A41.9 - Sepsis, unspecified organism; R65.21 - Severe sepsis with septic shock Status: Acute Assessment and Plan: Resolved Patient in shock, likely related to the gangrene, aspiration pneumonia, status post cardiac arrest 02/28/2024: Blood cultures have been obtained and negative Off vasopressors and IV fluids Status post 10 days of antibiotics 03/16 low-grade fever increase in WBC CT scan as above, repeat blood cultures and sputum pending UA suggestive of UTI. Urine cultures pending. Ha has been changed. Will start antibiotic (5) NSTEMI (non-ST elevated myocardial infarction): Code(s): I21.4 - Non-ST elevation (NSTEMI) myocardial infarction Status: Acute Assessment and Plan: Increasing troponins, -EKG showed sinus rhythm with T-wave changes in V1 to V5 -appreciate cardiology evaluation and recommendation -Continue aspirin and high-dose a statin -will hold Brilinta. Resumption per General surgery - beta-brayden, losartan are on hold due to soft blood pressure -03/02 heparin infusion was discontinued after 48 hours for NSTEMI by cardiology (6) Gangrene of right foot: Code(s): I96 - Gangrene, not elsewhere classified Status: Acute Assessment and Plan: CTA showed peripheral arterial disease with total occlusion of the right anterior and posterior tibial arteries and right peroneal artery with distal reconstitution of peroneal artery. This extensive gangrene of the right foot with gas seen on CT of the foot. General surgery spoke to the patient in the ER on the day of admission on 02/27 patient at that time agreed for below-knee amputation. Plan was to do a below-knee amputation on 02/29/2024 but patient had a cardiac arrest that night secondary to sepsis. Surgery at that time was deferred. Patient now is intubated sedated and unable to sign his consent.. 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 He has 1 son which no one has been able to get hold off right several attempts. Considering patient has gangrene of the foot with no vascular supply leading to sepsis and if untreatable lead to his , Dr. Johns will proceed with amputation today, 03/05/2024. Dr. Collins and Dr. Johns has signed 2 physician consent considering patient's clearly expressed wishes prior to cardiac arrest at the time of admission, his current situation and inability to sign the consent form by himself at this time. 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 -complete 5 days of clindamycin 03/13: Discussed with surgery, there is flexion contractures of his amputation which may hinder in him getting prosthetics, patient may require above knee amputation (7) Osteomyelitis of toe of right foot: Code(s): M86.9 - Osteomyelitis, unspecified Status: Chronic Assessment and Plan: As above (8) Peripheral vascular disease: Code(s): I73.9 - Peripheral vascular disease, unspecified Status: Chronic Assessment and Plan: Patient has history of peripheral vascular disease, coronary artery disease -started on aspirin, patient will require Brilinta since he had a STEMI in 2020 but currently holding Brilinta due to surgery and bleeding (9) Type 2 diabetes mellitus: Qualifiers: 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 complication status: with other specified complication 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 group home insulin use: with manager terminal use Qualified Code(s): E11.69 - Type 2 diabetes mellitus with other specified complication; Z79.4 - care home (current) use of insulin Code(s): E11.9 - Type 2 diabetes mellitus without complications Status: Acute Assessment and Plan: Currently on sliding scale insulin, Accu-Cheks Hemoglobin A1c this admission is 8.2 Continue Lantus (10) Chronic obstructive pulmonary disease: Code(s): J44.9 - Chronic obstructive pulmonary disease, unspecified Status: Chronic Assessment and Plan: Continue DuoNebs -continue Symbicort (11) Electrolyte abnormality: Code(s): E87.8 - Other disorders of electrolyte and fluid balance, not elsewhere classified Status: Acute Assessment and Plan: Hypernatremia, improved with free water flush (12) Ileus: Code(s): K56.7 - Ileus, unspecified Status: Acute Assessment and Plan: CT scan shows significant amount of tube feeds collected in the stomach. Patient also had high residuals. Patient has already been on Reglan. Bowel sounds are present but decreased. Tube feeds currently on hold. Will start at a low rate after the thoracentesis Plan DVT prophylaxis: Heparin subQ Stress ulcer prophylaxis: Protonix Nutrition: Tube feeds on hold due to high residuals. Continue Reglan. Code Status: Full code. 03/15 Patient has no family available. Patient was extubated on 03/14 and I spoke to patient post extubation. I mentioned possibility of him needing re-intubation and he was agreeable stating that he is not ready to at this time. He stated that do whatever needs to be done to keep me alive. I also mentioned to him that if he gets reintubated and is unable to be weaned he will need tracheostomy and PEG tube placement and he states that he is agreeable to do it if needed. He did mention that he has some nephews in area which can be contacted. service center coordinator was provided that information. Critical Care Time Spent: 30 minutes Due to a high probability of clinically significant, life threatening deterioration, the patient required my highest level of preparedness to intervene emergently and I personally spent this critical care time directly and personally managing the patient. This critical care time included obtaining a history; examining the patient; pulse oximetry; ordering and review of studies; arranging urgent treatment with development of a management plan; evaluation of patient's response to treatment; frequent reassessment; and discussions with other providers. It was exclusive of separately billable procedures and treating other patients and teaching time. Please see Assessment and Plan section and the rest of the note for further information on patient assessment and treatment This dictation may have been done utilizing a voice recognition system. Attempts have been made to correct errors. However, there may be uncorrected grammatical, spelling, and recognitions errors present. Subjective Date/time seen: 03/17/24 Overnight events reviewed. Low-grade fevers Continues to be on mechanical ventilation 30% FiO2 and 5 of PEEP Continues to be sedated with Precedex and fentanyl Other Vitals acceptable Acceptable urine output Tube feeds were held due to very high residuals Interval history: Reason for consult: Status post PEA arrest, right foot gangrene with cellulitis, shock 02/27: Intubated 03/05:Right below-knee amputation with placement of posterior Ortho Glass splint 03/14: extubated and reintubated Review of Systems Review of Systems: ROS unobtainable: Yes unobtainable due to endotracheal tube, unobtainable due to medical condition and unobtainable due to mental status Exam Narrative: General: Patient intubated and sedated, in no acute distress HEENT:, pupils are equal and reactive from a sclera is clear Neck:? supple Respiratory:? Coarse breath sounds bilaterally, decreased at bases, adequate air entry, no wheezing Cardiac:? S1-S2 normal, regular rate and rhythm Abdomen:? Soft, nontender, nondistended, bowel sounds are decreased but present Extremities:? Right BKA stump under the dressing. Left dorsalis pedis is dopplerable Neuro:? Patient is intubated, on Precedex and fentanyl infusion opens his eyes on stimulation but does not follows simple commands Skin:? Patient has maceration of his perianal area, pressure ulcer on his buttocks. Psych:? Unable to assess at this time Objective Data Vital Signs Vital Signs: Vital Signs - 24 hr 03/16/24 10:00 03/16/24 10:59 03/16/24 10:59 Temperature Pulse Rate 115 H 113 H 113 H Respiratory Rate 17 17 Blood Pressure Pulse Oximetry 92 Oxygen Delivery Mechanical Ventilation Fraction of Inspired Oxygen 40 03/16/24 10:00 03/16/24 10:00 03/16/24 10:47 Temperature 38.2 C H Pulse Rate 113 H 113 H 118 H Respiratory Rate 17 Blood Pressure Pulse Oximetry 94 94 Oxygen Delivery Mechanical Ventilation Fraction of Inspired Oxygen 40 03/16/24 10:00 03/16/24 10:59 03/16/24 11:52 Temperature Pulse Rate 113 H 110 H 110 H Respiratory Rate Blood Pressure 113/68 113/68 Pulse Oximetry Oxygen Delivery Fraction of Inspired Oxygen 03/16/24 10:00 03/16/24 12:00 03/16/24 12:00 Temperature Pulse Rate 113 H 103 H 103 H Respiratory Rate 17 17 17 Blood Pressure Pulse Oximetry Oxygen Delivery Fraction of Inspired Oxygen 03/16/24 12:00 03/16/24 12:00 03/16/24 12:00 Temperature Pulse Rate 103 H 103 H 103 H Respiratory Rate 17 Blood Pressure 119/58 L Pulse Oximetry 94 Oxygen Delivery Mechanical Ventilation Fraction of Inspired Oxygen 40 03/16/24 12:00 03/16/24 13:47 03/16/24 13:47 Temperature 38.4 C H Pulse Rate 102 H 101 H 101 H Respiratory Rate 17 19 Blood Pressure 119/58 L Pulse Oximetry 97 97 Oxygen Delivery Mechanical Ventilation Fraction of Inspired Oxygen 40 03/16/24 13:56 03/16/24 14:00 03/16/24 14:00 Temperature Pulse Rate 101 H 102 H 102 H Respiratory Rate 18 17 Blood Pressure 108/53 L Pulse Oximetry Oxygen Delivery Fraction of Inspired Oxygen 03/16/24 14:00 03/16/24 16:00 03/16/24 16:00 Temperature Pulse Rate 102 H 95 102 H Respiratory Rate 17 16 17 Blood Pressure Pulse Oximetry Oxygen Delivery Fraction of Inspired Oxygen 03/16/24 16:00 03/16/24 14:00 03/16/24 14:00 Temperature 38.4 C H Pulse Rate 95 102 H 102 H Respiratory Rate 17 Blood Pressure 124/62 108/53 L Pulse Oximetry 94 Oxygen Delivery Fraction of Inspired Oxygen 03/16/24 16:00 03/16/24 16:00 03/16/24 16:00 Temperature 38.5 C H Pulse Rate 95 95 95 Respiratory Rate 16 17 Blood Pressure 124/62 Pulse Oximetry 97 94 Oxygen Delivery Mechanical Ventilation Fraction of Inspired Oxygen 40 03/16/24 17:17 03/16/24 17:42 03/16/24 17:46 Temperature Pulse Rate 111 H 107 H 107 H Respiratory Rate 18 18 Blood Pressure Pulse Oximetry 94 Oxygen Delivery Mechanical Ventilation Fraction of Inspired Oxygen 30 03/16/24 17:30 03/16/24 18:00 03/16/24 18:00 Temperature 38.5 C H Pulse Rate 106 H 102 H 102 H Respiratory Rate 18 Blood Pressure 110/62 105/54 L Pulse Oximetry 94 Oxygen Delivery Fraction of Inspired Oxygen 03/16/24 18:05 03/16/24 18:06 03/16/24 18:06 Temperature Pulse Rate 102 H 102 H 102 H Respiratory Rate 18 18 Blood Pressure 105/54 L Pulse Oximetry Oxygen Delivery Fraction of Inspired Oxygen 03/16/24 18:17 03/16/24 18:17 03/16/24 19:00 Temperature Pulse Rate 102 H 102 H 97 Respiratory Rate 18 18 20 Blood Pressure Pulse Oximetry Oxygen Delivery Fraction of Inspired Oxygen 03/16/24 19:00 03/16/24 19:00 03/16/24 19:54 Temperature Pulse Rate 97 97 92 Respiratory Rate 20 16 Blood Pressure 115/58 L Pulse Oximetry Oxygen Delivery Fraction of Inspired Oxygen 03/16/24 19:54 03/16/24 20:00 03/16/24 20:00 Temperature Pulse Rate 93 92 92 Respiratory Rate 16 Blood Pressure Pulse Oximetry 97 Oxygen Delivery Mechanical Ventilation Fraction of Inspired Oxygen 30 03/16/24 21:00 03/16/24 21:00 03/16/24 21:00 Temperature 38.5 C H Pulse Rate 114 H 114 H Respiratory Rate 16 16 Blood Pressure 134/66 Pulse Oximetry 97 98 Oxygen Delivery Mechanical Ventilation Fraction of Inspired Oxygen 30 30 03/16/24 20:00 03/16/24 20:00 03/16/24 20:00 Temperature Pulse Rate 93 93 93 Respiratory Rate 16 16 Blood Pressure 105/59 L Pulse Oximetry Oxygen Delivery Fraction of Inspired Oxygen 03/16/24 21:00 03/16/24 21:00 03/16/24 21:00 Temperature Pulse Rate 109 H 109 H 109 H Respiratory Rate 16 16 Blood Pressure 134/66 Pulse Oximetry Oxygen Delivery Fraction of Inspired Oxygen 03/16/24 22:00 03/16/24 22:00 03/16/24 22:00 Temperature Pulse Rate 102 H 102 H 102 H Respiratory Rate 16 16 Blood Pressure 115/59 L Pulse Oximetry Oxygen Delivery Fraction of Inspired Oxygen 03/16/24 23:00 03/16/24 23:00 03/16/24 23:00 Temperature Pulse Rate 98 97 97 Respiratory Rate 16 16 Blood Pressure 115/61 Pulse Oximetry Oxygen Delivery Fraction of Inspired Oxygen 03/16/24 22:00 03/16/24 22:00 03/16/24 19:00 Temperature 38.4 C H 38.6 C H Pulse Rate 102 H 102 H 96 Respiratory Rate 16 16 Blood Pressure 115/59 L Pulse Oximetry 93 95 Oxygen Delivery Fraction of Inspired Oxygen 03/16/24 19:01 03/16/24 19:15 03/16/24 19:30 Temperature 38.6 C H 38.6 C H 38.6 C H Pulse Rate 96 96 94 Respiratory Rate 19 16 16 Blood Pressure 115/58 L Pulse Oximetry 95 95 96 Oxygen Delivery Fraction of Inspired Oxygen 03/16/24 19:45 03/16/24 20:00 03/16/24 20:01 Temperature 38.6 C H 38.6 C H 38.6 C H Pulse Rate 94 92 92 Respiratory Rate 17 16 16 Blood Pressure 105/59 L Pulse Oximetry 96 96 96 Oxygen Delivery Fraction of Inspired Oxygen 03/16/24 20:15 03/16/24 20:30 03/16/24 20:45 Temperature 38.6 C H 38.5 C H 38.5 C H Pulse Rate 95 95 94 Respiratory Rate 16 16 16 Blood Pressure Pulse Oximetry 96 96 96 Oxygen Delivery Fraction of Inspired Oxygen 03/16/24 21:00 03/16/24 21:01 03/16/24 21:15 Temperature 38.5 C H 38.4 C H 38.4 C H Pulse Rate 110 H 105 H 94 Respiratory Rate 12 8 L 14 Blood Pressure 134/66 Pulse Oximetry 97 97 96 Oxygen Delivery Fraction of Inspired Oxygen 03/16/24 21:30 03/16/24 21:45 03/16/24 22:00 Temperature 38.4 C H 38.4 C H 38.4 C H Pulse Rate 96 99 101 H Respiratory Rate 15 16 15 Blood Pressure Pulse Oximetry 91 Oxygen Delivery Fraction of Inspired Oxygen 03/16/24 22:01 03/16/24 22:15 03/16/24 22:30 Temperature 38.4 C H 38.4 C H 38.3 C H Pulse Rate 103 H 101 H 98 Respiratory Rate 16 16 16 Blood Pressure 115/59 L Pulse Oximetry Oxygen Delivery Fraction of Inspired Oxygen 03/16/24 22:37 03/16/24 22:45 03/16/24 23:00 Temperature 38.3 C H 38.3 C H 38.3 C H Pulse Rate 98 99 98 Respiratory Rate 17 17 16 Blood Pressure 115/59 L Pulse Oximetry 92 92 93 Oxygen Delivery Fraction of Inspired Oxygen 03/16/24 23:01 03/16/24 23:15 03/16/24 23:16 Temperature 38.3 C H 38.3 C H 38.3 C H Pulse Rate 98 97 94 Respiratory Rate 16 16 16 Blood Pressure 115/61 107/59 L Pulse Oximetry 93 93 93 Oxygen Delivery Fraction of Inspired Oxygen 03/16/24 22:55 03/16/24 23:59 03/17/24 00:40 Temperature Pulse Rate 97 90 90 Respiratory Rate 16 16 Blood Pressure Pulse Oximetry 93 Oxygen Delivery Mechanical Ventilation Fraction of Inspired Oxygen 30 03/17/24 00:30 03/17/24 00:30 03/17/24 00:30 Temperature 38.2 C H Pulse Rate 88 88 Respiratory Rate 16 16 Blood Pressure 101/58 L Pulse Oximetry 95 95 Oxygen Delivery Mechanical Ventilation Fraction of Inspired Oxygen 30 30 03/17/24 00:00 03/17/24 00:00 03/17/24 01:00 Temperature Pulse Rate 89 91 88 Respiratory Rate Blood Pressure 104/58 L 86/50 L Pulse Oximetry Oxygen Delivery Fraction of Inspired Oxygen 03/17/24 01:15 03/17/24 00:00 03/17/24 01:00 Temperature Pulse Rate 88 91 88 Respiratory Rate 16 16 Blood Pressure 94/57 L Pulse Oximetry Oxygen Delivery Fraction of Inspired Oxygen 03/17/24 01:39 03/17/24 01:40 03/17/24 01:31 Temperature 38.2 C H Pulse Rate 87 86 86 Respiratory Rate 16 0 L Blood Pressure 96/54 L Pulse Oximetry 97 96 Oxygen Delivery Mechanical Ventilation Fraction of Inspired Oxygen 30 03/17/24 01:43 03/17/24 01:45 03/17/24 01:46 Temperature 38.1 C H 38.1 C H 38.1 C H Pulse Rate 86 88 86 Respiratory Rate 7 L 6 L Blood Pressure 90/56 L Pulse Oximetry 97 97 97 Oxygen Delivery Fraction of Inspired Oxygen 03/17/24 02:00 03/17/24 02:02 03/17/24 02:15 Temperature 38.1 C H 38.1 C H 38.1 C H Pulse Rate 89 88 88 Respiratory Rate 0 L 0 L 0 L Blood Pressure 94/57 L 95/58 L Pulse Oximetry 96 96 96 Oxygen Delivery Fraction of Inspired Oxygen 03/17/24 02:16 03/17/24 02:30 03/17/24 02:31 Temperature 38.1 C H 38.1 C H 38.1 C H Pulse Rate 87 88 90 Respiratory Rate 0 L 0 L 13 Blood Pressure 98/58 L Pulse Oximetry 96 96 96 Oxygen Delivery Fraction of Inspired Oxygen 03/17/24 02:45 03/17/24 02:46 03/17/24 03:01 Temperature 38.1 C H 38.1 C H 38.0 C H Pulse Rate 87 87 87 Respiratory Rate 0 L 0 L Blood Pressure 97/56 L 96/57 L Pulse Oximetry 96 96 96 Oxygen Delivery Fraction of Inspired Oxygen 03/17/24 03:02 03/17/24 03:15 03/17/24 03:16 Temperature 38.0 C H 38.0 C H 38.0 C H Pulse Rate 86 86 86 Respiratory Rate 0 L 0 L 0 L Blood Pressure 94/58 L Pulse Oximetry 97 96 96 Oxygen Delivery Fraction of Inspired Oxygen 03/17/24 03:30 03/17/24 03:31 03/17/24 03:45 Temperature 37.9 C H 37.9 C H 37.9 C H Pulse Rate 85 87 88 Respiratory Rate 0 L 0 L 16 Blood Pressure 113/63 Pulse Oximetry 96 96 98 Oxygen Delivery Fraction of Inspired Oxygen 03/17/24 03:46 03/17/24 04:00 03/17/24 04:01 Temperature 37.9 C H 37.7 C H 37.8 C H Pulse Rate 89 89 90 Respiratory Rate 15 16 17 Blood Pressure 119/65 119/65 Pulse Oximetry 96 96 96 Oxygen Delivery Fraction of Inspired Oxygen 03/17/24 04:15 03/17/24 04:16 03/17/24 04:30 Temperature 37.8 C H 37.8 C H 37.8 C H Pulse Rate 88 87 88 Respiratory Rate 16 16 16 Blood Pressure 109/59 L Pulse Oximetry 98 98 Oxygen Delivery Fraction of Inspired Oxygen 03/17/24 04:31 03/17/24 02:00 03/17/24 04:00 Temperature 37.8 C H Pulse Rate 87 89 94 Respiratory Rate 16 Blood Pressure 116/63 Pulse Oximetry 98 Oxygen Delivery Fraction of Inspired Oxygen 03/17/24 04:00 03/17/24 04:00 03/17/24 02:00 Temperature Pulse Rate 88 89 Respiratory Rate 16 16 Blood Pressure Pulse Oximetry 96 Oxygen Delivery Mechanical Ventilation Fraction of Inspired Oxygen 30 30 03/17/24 03:00 03/17/24 04:00 03/17/24 03:00 Temperature Pulse Rate 88 88 88 Respiratory Rate 16 16 Blood Pressure 96/57 L Pulse Oximetry Oxygen Delivery Fraction of Inspired Oxygen 03/17/24 02:00 03/17/24 04:00 03/17/24 02:00 Temperature Pulse Rate 88 88 89 Respiratory Rate 16 Blood Pressure 94/57 L 119/65 Pulse Oximetry Oxygen Delivery Fraction of Inspired Oxygen 03/17/24 03:00 03/17/24 04:00 03/17/24 05:07 Temperature Pulse Rate 88 88 84 Respiratory Rate 16 16 16 Blood Pressure Pulse Oximetry Oxygen Delivery Fraction of Inspired Oxygen 03/17/24 05:07 03/17/24 05:08 03/17/24 05:00 Temperature Pulse Rate 84 84 87 Respiratory Rate 16 Blood Pressure 115/67 Pulse Oximetry 98 Oxygen Delivery Mechanical Ventilation Fraction of Inspired Oxygen 30 03/17/24 06:00 03/17/24 06:00 03/17/24 06:00 Temperature Pulse Rate 81 80 81 Respiratory Rate 16 16 Blood Pressure 107/63 Pulse Oximetry 98 Oxygen Delivery Fraction of Inspired Oxygen 03/17/24 06:00 03/17/24 06:00 03/17/24 06:48 Temperature Pulse Rate 81 81 80 Respiratory Rate 16 16 Blood Pressure 107/63 Pulse Oximetry Oxygen Delivery Fraction of Inspired Oxygen 03/17/24 06:48 03/17/24 06:15 03/17/24 06:30 Temperature Pulse Rate 80 80 80 Respiratory Rate 16 Blood Pressure 108/63 96/67 L Pulse Oximetry Oxygen Delivery Fraction of Inspired Oxygen 03/17/24 07:05 03/17/24 07:05 03/17/24 07:15 Temperature Pulse Rate 79 79 80 Respiratory Rate 16 16 Blood Pressure Pulse Oximetry 98 Oxygen Delivery Mechanical Ventilation Fraction of Inspired Oxygen 30 Intake/Output Intake/Output: Intake & Output 03/15/24 03/16/24 03/16/24 03/17/24 00:59 00:59 23:59 23:59 Intake Total 326.4 Output Total 600 Balance -273.6 Meds/Results Medications: Active Medications Generic Name Dose Route Start Last Admin Trade Name Freq PRN Reason Stop Dose Admin Acetaminophen 500 mg 03/08/24 10:18 03/13/24 09:24 Acetaminophen 500 Mg Tablet FEED TUBE 500 mg Q6H PRN Administration Pain Rated 1-3 Albuterol/Ipratropium 3 ml 02/29/24 02:00 03/17/24 07:05 Ipratropium 0.5 Mg/Albuterol Sulfate 2.5 Mg Ampul.Neb 3 Ml INHALATION 3 ml Q6HRT JASON Administration Alteplase, Recombinant 2 mg 03/06/24 09:45 03/06/24 13:10 Alteplase 2 Mg Vial (Cathflo) IV PUSH 2 mg ONCE PRN Administration Line Occlusion Aspirin 81 mg 03/09/24 08:00 03/17/24 08:24 Aspirin 81 Mg Chewable Tablet FEED TUBE Not Given DAILY@0800 [facility] Dextrose 12.5 gm 02/28/24 19:23 Dextrose 50% 25 Gm/50 Ml Syringe IV PUSH PRN PRN Hypoglycemia Protocol Glucagon 1 mg 02/28/24 19:23 Glucagon For Inj 1 Mg Vial IM PRN PRN Hypoglycemia Protocol Glucose 15 gm 03/08/24 10:19 Glucose Oral Gel 15 Gm Of Glucse In 37.5 Gm Tube FEED TUBE PRN PRN Hypoglycemia Protocol Heparin Sodium (Porcine) 5,000 units 03/03/24 14:00 03/17/24 06:13 Heparin Sodium 5,000 Units/Ml Vial SUB-Q 5,000 units Q8HR JASON Administration Hydralazine HCl 20 mg 03/08/24 10:06 Hydralazine Hcl 20 Mg/Ml Vial IV PUSH Q4HR PRN Hypertension Dextrose 1,000 mls @ 100 mls/hr 02/28/24 19:23 Dextrose 5% 1,000 Ml IVPB PRN PRN Hypoglycemia Protocol Dexmedetomidine HCl 400 mcg in 100 mls @ 14.895 mls/hr 03/11/24 21:50 03/17/24 06:48 Precedex 400 Mcg/100 Ml IV CONT 0.6 mcg/kg/hr .Q6H43M JASON 14.9 mls/hr Administration Protocol 0.6 MCG/KG/HR Fentanyl Citrate 2,500 mcg in 250 mls @ 12.5 mls/hr 03/14/24 23:20 03/17/24 06:00 Fentanyl 2,500 Mcg/Ns 250 Ml IV CONT 125 mcg/hr .Q20H JASON 12.5 mls/hr Titration Protocol 125 MCG/HR Norepinephrine Bitartrate 8 mg in 250 mls @ 5.625 mls/hr 03/15/24 13:30 03/17/24 06:30 Levophed 8 Mg/D5w 250 Ml IV CONT 3 mcg/min .Q24H JSAON 5.63 mls/hr Titration Protocol 3 MCG/MIN Insulin Aspart 3 - 6 units 03/15/24 17:00 03/17/24 08:24 Insulin Aspart (*Bkc) 100 Units/Ml SUB-Q Not Given Q4HR [facility] Protocol Insulin Glargine 55 units 03/15/24 09:00 03/16/24 10:44 Insulin Glargine (*Bkc) 100 Units/Ml SUB-Q 55 units DAILY JASON Administration Labetalol HCl 20 mg 03/08/24 10:06 03/08/24 16:48 Labetalol Hcl Inj 100 Mg/20 Ml Vial IV PUSH 20 mg Q4H PRN Administration SBP > 160 and HR> 60 -1st choice Metoclopramide HCl 10 mg 03/16/24 18:00 03/17/24 06:15 Metoclopramide Hcl Inj 10 Mg/2 Ml Vial IV PUSH 10 mg Q6HR JASON Administration Multi-Ingred Cream/Lotion/Oil/Oint 1 applic 11/02/24 09:00 03/17/24 08:23 Mineral Oil/White Petrolatum Ointment EACH EYE 1 applic Q12HR JASON Administration Pantoprazole Sodium 40 mg 03/02/24 09:00 03/17/24 08:23 Pantoprazole Sodium Iv 40 Mg Vial IV PUSH 40 mg Q12HR JASON Administration Sodium Chloride 10 ml 02/29/24 06:00 03/17/24 06:15 Central Line Flush IV PUSH 10 ml Q8HR JASON Administration Sodium Chloride 20 ml 02/28/24 23:37 Central Line Flush IV PUSH PRN PRN after blood draws Radiology Results: ITS Impressions Lower Extremity CTA 02/28/24 14:54 IMPRESSION: 1. 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 2. Moderate stenosis of right popliteal artery. 3. Osteomyelitis involving first proximal and distal phalanges and head of first metatarsal. Head CT 02/29/24 05:55 Impression: No intracranial hemorrhage, mass, or acute infarct. Stable chronic encephalomalacia in the high left parietal lobe. Atrophy and chronic white matter changes, as above. Chest/Abdomen/Pelvis CTA 02/29/24 06:02 Impression: Extensive right upper lobe consolidation and more mild right middle lobe consolidation, consistent with pneumonia. Consider aspiration pneumonia. Moderate to large right pleural effusion with complete atelectasis of the right lower lobe. Moderate left pleural effusion with minimal left basilar atelectasis. Small pericardial effusion. No definite acute abnormality in the abdomen or pelvis. Chronic compression fractures, as above. Renal Ultrasound 03/03/24 15:45 IMPRESSION: 1. Normal kidneys without hydronephrosis. 2. Small amount of ascites in the abdomen and pelvis. Thoracentesis Ultrasound 03/08/24 09:35 IMPRESSION: 1. Successful ultrasound-guided thoracentesis yielding 550 mL of clear, yellow fluid. Venous Doppler Study 03/11/24 13:58 IMPRESSION: 1. Patent bilateral upper extremity veins. No evidence of venous thrombosis. Abdomen Ultrasound 03/13/24 16:52 IMPRESSION: 1. No etiology for abnormal liver function tests. 2. Normal hepatic veins and main portal vein. Right and left portal veins and proper hepatic artery not evaluated. 3. Right pleural effusion. Vascular Ultrasound 03/13/24 16:52 IMPRESSION: 1. No etiology for abnormal liver function tests. 2. Normal hepatic veins and main portal vein. Right and left portal veins and proper hepatic artery not evaluated. 3. Right pleural effusion. Abdomen X-Ray 03/16/24 19:53 IMPRESSION: Orogastric tube in satisfactory position in the stomach Chest/Abdomen/Pelvis CT 03/16/24 21:51 IMPRESSION: Anasarca Large pleural effusions with prominent compressive atelectasis of the lower lobes especially, dependent atelectasis of the middle and upper lobes Heart size. Prominent coronary artery atherosclerotic calcifications Minimal pericardial effusion Prominent diffuse thickening of urinary bladder wall suggesting cystitis area Ha catheter in bladder lumen Very prominent amount of fluid and large fluid level within the stomach despite presence of NG tube T11 and L1 moderate anterior wedge compression fractures, likely chronic Chest X-Ray 03/17/24 06:54 Impression: Small to moderate layering bilateral pleural effusions. Support tubes, as above. Labs Labs: Laboratory Results - last 24 hr 03/16/24 03/16/24 03/16/24 10:42 13:12 17:19 WBC RBC Hgb Hct MCV MCH MCHC RDW Plt Count MPV PT INR Puncture Site ABG pH ABG pCO2 ABG pO2 ABG PO2/FiO2 Ratio ABG HCO3 ABG O2 Saturation ABG O2 Content ABG Base Excess A-a Gradient Oxyhemoglobin Carboxyhemoglobin Methemoglobin Reduced Hemoglobin Total Hemoglobin O2 Delivery Device O2 Liters/Min Minute Volume Vent Rate Vent Mode FiO2 Tidal Volume PEEP Peak Inspir Pressure Pressure Support Sodium Potassium Chloride Carbon Dioxide Anion Gap BUN Creatinine Estim Creat Clear Calc Estimated GFR Glucose POC Capillary Glucose 272 H 306 H 220 H Calcium Magnesium Total Bilirubin AST ALT Alkaline Phosphatase Total Protein Albumin Triglycerides Urine Color Urine Appearance Urine pH Ur Specific [place] Urine Protein Urine Glucose (UA) Urine Ketones Ur Blood (Man) Urine Nitrate Urine Bilirubin Urine Urobilinogen Leukocyte Esterase Rfl Urine RBC Urine WBC Urine WBC Clumps Ur Squamous Epith Cells Uric Acid Crystals Urine Bacteria Urine Casts Hyaline Casts Granular Casts Urine Yeast (Budding) 03/16/24 03/17/24 03/17/24 20:47 00:42 00:46 WBC RBC Hgb Hct MCV MCH MCHC RDW Plt Count MPV PT INR Puncture Site ABG pH ABG pCO2 ABG pO2 ABG PO2/FiO2 Ratio ABG HCO3 ABG O2 Saturation ABG O2 Content ABG Base Excess A-a Gradient Oxyhemoglobin Carboxyhemoglobin Methemoglobin Reduced Hemoglobin Total Hemoglobin O2 Delivery Device O2 Liters/Min Minute Volume Vent Rate Vent Mode FiO2 Tidal Volume PEEP Peak Inspir Pressure Pressure Support Sodium Potassium Chloride Carbon Dioxide Anion Gap BUN Creatinine Estim Creat Clear Calc Estimated GFR Glucose POC Capillary Glucose 181 H 132 H Calcium Magnesium Total Bilirubin AST ALT Alkaline Phosphatase Total Protein Albumin Triglycerides 61 Urine Color Urine Appearance Urine pH Ur Specific [place] Urine Protein Urine Glucose (UA) Urine Ketones Ur Blood (Man) Urine Nitrate Urine Bilirubin Urine Urobilinogen Leukocyte Esterase Rfl Urine RBC Urine WBC Urine WBC Clumps Ur Squamous Epith Cells Uric Acid Crystals Urine Bacteria Urine Casts Hyaline Casts Granular Casts Urine Yeast (Budding) 03/17/24 03/17/24 03/17/24 03:27 05:00 05:23 WBC 16.1 H RBC 2.86 L Hgb 7.9 L Hct 25.9 L MCV 90.6 MCH 27.6 MCHC 30.5 L RDW 18.3 H Plt Count 303 MPV 10.6 H PT 17.2 H INR 1.4 Puncture Site Right radial ABG pH 7.448 ABG pCO2 39.0 ABG pO2 91.1 ABG PO2/FiO2 Ratio 3.04 ABG HCO3 26.4 H ABG O2 Saturation 97.3 ABG O2 Content 11.9 L ABG Base Excess 2.2 A-a Gradient 77.0 Oxyhemoglobin 96.0 Carboxyhemoglobin 1.0 Methemoglobin 0.0 Reduced Hemoglobin 3.0 Total Hemoglobin 8.7 L O2 Delivery Device Ventilator O2 Liters/Min Not Reportable Minute Volume Not Reportable Vent Rate 16 Vent Mode Cmv FiO2 30 Tidal Volume 380 PEEP 5 Peak Inspir Pressure Not Reportable Pressure Support Not Reportable Sodium 145 Potassium 4.0 Chloride 109 H Carbon Dioxide 32 H Anion Gap 4 BUN 39 H Creatinine 1.00 Estim Creat Clear Calc 74 Estimated GFR > 60 Glucose 148 H POC Capillary Glucose 137 H Calcium 7.7 L Magnesium 2.7 H Total Bilirubin 0.7 AST 44 ALT 175 H Alkaline Phosphatase 302 H Total Protein 6.0 L Albumin 2.6 L Triglycerides 65 Urine Color Yellow Urine Appearance Turbid H Urine pH 5.5 Ur Specific [place] 1.025 Urine Protein 2+ H Urine Glucose (UA) Negative Urine Ketones Negative Ur Blood (Man) 3+ H Urine Nitrate Negative Urine Bilirubin Negative Urine Urobilinogen 1.0 Leukocyte Esterase Rfl 2+ H Urine RBC 51-100 H Urine WBC >100 H Urine WBC Clumps Present H Ur Squamous Epith Cells None seen Uric Acid Crystals Present H Urine Bacteria None seen Urine Casts >20 Hyaline Casts Present Granular Casts Present Urine Yeast (Budding) Present H 03/17/24 08:07 WBC RBC Hgb Hct MCV MCH MCHC RDW Plt Count MPV PT INR Puncture Site ABG pH ABG pCO2 ABG pO2 ABG PO2/FiO2 Ratio ABG HCO3 ABG O2 Saturation ABG O2 Content ABG Base Excess A-a Gradient Oxyhemoglobin Carboxyhemoglobin Methemoglobin Reduced Hemoglobin Total Hemoglobin O2 Delivery Device O2 Liters/Min Minute Volume Vent Rate Vent Mode FiO2 Tidal Volume PEEP Peak Inspir Pressure Pressure Support Sodium Potassium Chloride Carbon Dioxide Anion Gap BUN Creatinine Estim Creat Clear Calc Estimated GFR Glucose POC Capillary Glucose 132 H Calcium Magnesium Total Bilirubin AST ALT Alkaline Phosphatase Total Protein Albumin Triglycerides Urine Color Urine Appearance Urine pH Ur Specific [place] Urine Protein Urine Glucose (UA) Urine Ketones Ur Blood (Man) Urine Nitrate Urine Bilirubin Urine Urobilinogen Leukocyte Esterase Rfl Urine RBC Urine WBC Urine WBC Clumps Ur Squamous Epith Cells Uric Acid Crystals Urine Bacteria Urine Casts Hyaline Casts Granular Casts Urine Yeast (Budding) Quality VTE Prophylaxis VTE prophylaxis: pharmacologic ordered
[2024-03-17] MEDS: CEFEPIME 2 GM/NS 50 ML 2 GM/50 ML BAG IVPB ×2 (09:47→20:48)
--- NOTE | 2024-03-17 10:10 | PCFNICU ---
ICU Rounding Note: Pt current nutrition is tube feeding on hold for high residuals, possible ileus. Nutrition recommendation: When tube feeding is resumed, start Vital 1.2 @ 20 ml/h with goal rate 60 ml/h to improve tolerance. Last recorded weight is 96.2 kg. 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 NPO thoracentesis today. Discussed with MD to run Vital 1.2 for tolerance when TF is started at low rate. Following daily in ICU rounds. Will monitor weight, labs, skin, tube feedings, meds, every Sunday and Sunday. .
[2024-03-17 11:48] LABS: Mean Platelet Volume 10.4 fl (7.4-10.4); Platelet Count Result 276 k/mm3 (150-375)
[2024-03-17 12:04] LABS: INR 1.4; Prothrombin Time 17.8 Seconds (11.1-14.7)
[2024-03-17 12:05] LABS: Partial Thromboplastin Time 41.1 Seconds (22.3-36.8)
[2024-03-17] MEDS: NOREPINEPHRINE 8 MG/D5W 250 ML 8 MG/250 ML BAG 5.63 MG IV CONT (18:18)
[2024-03-17 18:26] LABS: Glucose Point of Care 130 mg/dl (65-105)
[2024-03-17] MEDS: FENTANYL 2,500MCG/NS250ML(*CRX 2,500 MCG/250 ML BAG IV CONT (19:27)
--- NOTE | 2024-03-17 19:27 | PC.NURSE ---
Fentanyl Drip started at 25mcg/hour per protocol as previous Fentanyl drip not hanging or running.
[2024-03-17 21:01] LABS: Glucose Point of Care 160 mg/dl (65-105)
[2024-03-18] VITALS (46 sets, daily range): BP systolic 92–124; BP diastolic 49–77; PULSE 68–103; RESP 14–20; TEMP 36.7–37.4; O2SAT 93–98
[2024-03-18] MEDS: METOCLOPRAMIDE HCL INJ 10 MG/2 ML VIAL IV PUSH ×5 (00:14→23:27)
[2024-03-18 00:24] LABS: Glucose Point of Care 157 mg/dl (65-105)
[2024-03-18] MEDS: dexmedeTOMIDine 400 MCG/100 ML 400 MCG/100 ML BAG 19.86 MCG IV CONT ×2 (01:07→22:37)
[2024-03-18] MEDS: IPRATROPIUM 0.5 MG/ALBUTEROL SULFATE 2.5 MG AMPUL.NEB 3 ML INHALATION ×4 (03:08→20:41)
[2024-03-18] MEDS: CENTRAL LINE FLUSH 10 ML IV PUSH ×3 (05:16→20:23)
[2024-03-18] MEDS: dexmedeTOMIDine 400 MCG/100 ML 400 MCG/100 ML BAG 17.38 MCG IV CONT ×3 (05:16→17:06)
[2024-03-18 05:18] LABS: Hemoglobin 7.7 g/dL (14.0-18.0); Mean Corpuscular HGB Conc 29.6 g/dl (32-36); Mean Corpuscular Hemoglobin 27.5 pg (26-34); Mean Corpuscular Volume 92.9 fl (80-100); Mean Platelet Volume 10.7 fl (7.4-10.4); Platelet Count Result 249 k/mm3 (150-375); Red Cell Distribution Width 17.7 % (11.5-14.5); White Blood Count 11.7 K/mm3 (4.5-10.0)
[2024-03-18 05:29] LABS: INR 1.4; Prothrombin Time 17.8 Seconds (11.1-14.7)
[2024-03-18 05:30] LABS: Alanine Aminotransferase 120 U/L (6-50); Albumin Level 2.5 g/dL (3.5-5.1); Alkaline Phosphatase 247 U/L (38-126); Anion Gap 5 mmol/L (4-12); Aspartate Amino Transferase 33 U/L (17-59); Bilirubin,Total 0.7 mg/dL (0.2-1.3); Blood Urea Nitrogen 34 mg/dL (9-20); Calcium 7.7 mg/dL (8.4-10.2); Carbon Dioxide 30 mmol/L (22-30); Chloride 110 mmol/L (98-107); Estimated CRCL calculation 90 ml/min; Estimated Glomerular Filt Rate > 60; Glucose 165 mg/dL (65-110); Magnesium 2.6 mg/dL (1.6-2.3); Sodium 145 mmol/L (137-145)
[2024-03-18 06:03] LABS: Alveolar/Arterial O2 Gradient 71.5 mmHg; Carboxyhemoglobin 1.8 % THb (0-2.0); Fractional Inspired Oxygen 30 %; HCO3 ABG 28.5 mEq/l (22.0-26.0); Methemoglobin ABG 0.1 %THb (0-1.5); Oxygen Saturation ABG 97.3 % (95.0-100.0); Oxyhemoglobin 95.3 % THb (90.0-100.0); PCO2 ABG 42.3 mmHg (35.0-45.0); PO2 ABG 92.7 mmHg (80.0-100.0); PO2 FiO2 Ratio Arterial Blood 3.09 %; Reduced Hemoglobin 2.8 %THb (0-5.0); Total Hemoglobin 8.1 g/dL (12.0-18.0); pH ABG 7.446 (7.350-7.450)
[2024-03-18 06:05] LABS: Device VENTILATOR; Modified Allen's Test Pass; Site Drawn RIGHT BRACHIAL
[2024-03-18 06:06] LABS: Arterial Blood Gas PEEP 5 cmH2O; Arterial Blood Gas Tidal Volume 380 ml; Arterial Blood Gas Vent Mode CMV; Arterial Blood Gas Ventilator rate 16 /MIN
[2024-03-18] MEDS: CEFEPIME 2 GM/NS 50 ML 2 GM/50 ML BAG IVPB ×2 (08:21→20:23)
[2024-03-18] MEDS: ASPIRIN 81 MG CHEWABLE TABLET FEED TUBE (08:22)
[2024-03-18] MEDS: PANTOPRAZOLE SODIUM IV 40 MG VIAL IV PUSH ×2 (08:23→20:23)
[2024-03-18] MEDS: FUROSEMIDE INJ 40 MG/4 ML VIAL IV PUSH (08:25)
[2024-03-18] MEDS: ALBUMIN HUMAN 25% 25 GM/100 ML 100 ML IVPB (08:29)
[2024-03-18] MEDS: MINERAL OIL/WHITE PETROLATUM OINTMENT 1 APPLIC EACH EYE ×2 (08:29→20:23)
[2024-03-18 08:35] LABS: Glucose Point of Care 160 mg/dl (65-105)
--- NOTE | 2024-03-18 08:58 | P.PNINT_ITS ---
Progress Note: A&P Assessment and Plan (1) Acute respiratory failure with hypoxia: Code(s): J96.01 - Acute respiratory failure with hypoxia Status: Acute Assessment and Plan: Acute respiratory failure likely related to cardiac arrest, aspiration pneumonia, NSTEMI, hypoxia, septic shock Worsening likely secondary to ARDS versus pulmonary edema Intubated 02/27 02/28 Chest CTA: Extensive right upper lobe consolidation and more mild right middle lobe consolidation, consistent with pneumonia. Consider aspiration pneumonia.Moderate to large right pleural effusion with complete atelectasis of the right lower lobe. Moderate left pleural effusion with minimal left basilar atelectasis. Small pericardial effusion. No definite acute abnormality in the abdomen or pelvis. Chronic compression fractures, as above . -03/07 right thoracentesis with 1 L fluid removed -03/08 left-sided thoracentesis 550 mL -03/11: patient was in pressure support ventilation 02/18, with decrease tidal volumes in the upper 200s. place patient back on CMV, I have asked the bedside RN to decrease the Precedex infusion once patient is more awake will place back on spontaneous breathing trials 03/12: Place patient on SBT 04/17, low tidal volumes, low respiratory rate. Patient had replaced back on CMV mode of ventilation. -even on ASV patient is breathing only 7-8 times a minute 03/13: Off Precedex infusion overnight, placed patient on pressure support ventilation 04/17, initially did well but not significantly tachycardic and tachypneic and in respiratory distress, patient was placed back on CMV mode of ventilation and low-dose was 03/14 8/5 PSV SBT done for more than 1 hour. RSBI, ABG and Vitals acceptable. Pt awake and following commands. Patient was extubated. Initially patient did well and was on nasal cannula and was able to communicate. Over 12 hours patient became more hypoxic with increased respiratory distress and tachypnea. I spoke to patient post extubation and was agreeable to re-intubation if needed and stated that 'he is not ready to ' and 'do what ever it takes'. He was re intubated at night. I also mentioned to him that he may need tracheostomy and PEG tube placement if he gets we intubated and is not weanable. He told me 'to proceed with it if needed'. Solu-Medrol IV given for airway edema and will be continued for 24 hours -completed course of Solu-Medrol -continue bronchodilators -on Precedex and fentanyl -chest x-ray and ABG reviewed -CT scan shows large pleural effusions bilaterally. I will request IR for thoracentesis.. Patient is on minimal ventilator setting but has failed trials initially multiple times and then once extubated he was reintubated within 12 hours. I will treat try again after thoracentesis to see patient is weanable from the vent otherwise will proceed with trach and PEG as patient has been on ventilator for more than 2 weeks. 03/17 right thoracentesis 1 L fluid was removed 03/18 left thoracentesis scheduled for today. Will also continue diuretics. (2) Elevated LFTs: Code(s): R79.89 - Other specified abnormal findings of blood chemistry Status: Acute Assessment and Plan: 03/13: Significant elevation in LFTs, AST 2280, ALT 988, alk-phos 722 -patient has been hemodynamically stable, no hypotension noted in the last 24-48 hours -statin discontinued. Hold Tylenol -no tenderness in the right upper, lower quadrant or epigastric region on exam -negative vital hepatitis panel, right upper quadrant ultrasound with Doppler negative for hepatic or portal vein thrombosis -patient evaluated by GI -levels improving. Monitor (3) Cardiac arrest with pulseless electrical activity: Code(s): I46.9 - Cardiac arrest, cause unspecified Status: Acute Assessment and Plan: Cardiac arrest, secondary to unknown etiology. Possible aspiration pneumonia, NSTEMI, hypoxia, septic shock, infection -see code blue sheet for the details -patient currently intubated, vasopressors for blood pressure support have been weaned off -appreciate cardiology following the patient 02/29/2024 echocardiogram Summary 1. Technically difficult study with limited views. 2. Left ventricular chamber dimension is normal. 3. Left ventricular systolic function is mildly reduced, estimated at 45-50%. The apex appears to be hypokinetic. 4. There is mildly increased left ventricular wall thickness. 5. The left ventricular diastolic function is grade I diastolic dysfunction. 6. Right ventricular systolic function is normal. 7. Left atrial chamber dimension is moderately enlarged. 8. There is mild to moderate tricuspid valve regurgitation. 9. There is small anterior pericardial effusion. (4) Septic shock: Code(s): A41.9 - Sepsis, unspecified organism; R65.21 - Severe sepsis with septic shock Status: Acute Assessment and Plan: Resolved Patient in shock, likely related to the gangrene, aspiration pneumonia, status post cardiac arrest 02/28/2024: Blood cultures have been obtained and negative Off vasopressors and IV fluids Status post 10 days of antibiotics 03/16 low-grade fever increase in WBC CT scan as above, repeat blood cultures and sputum pending UA suggestive of UTI. Urine cultures pending. Ha has been changed. Continue cefepime (5) NSTEMI (non-ST elevated myocardial infarction): Code(s): I21.4 - Non-ST elevation (NSTEMI) myocardial infarction Status: Acute Assessment and Plan: Increasing troponins, -EKG showed sinus rhythm with T-wave changes in V1 to V5 -appreciate cardiology evaluation and recommendation -Continue aspirin and high-dose a statin -will hold Brilinta. Resumption per General surgery - beta-brayden, losartan are on hold due to soft blood pressure -03/02 heparin infusion was discontinued after 48 hours for NSTEMI by cardiology (6) Gangrene of right foot: Code(s): I96 - Gangrene, not elsewhere classified Status: Acute Assessment and Plan: CTA showed peripheral arterial disease with total occlusion of the right anterior and posterior tibial arteries and right peroneal artery with distal reconstitution of peroneal artery. This extensive gangrene of the right foot with gas seen on CT of the foot. General surgery spoke to the patient in the ER on the day of admission on 02/27 patient at that time agreed for below-knee amputation. Plan was to do a below- knee amputation on 02/29/2024 but patient had a cardiac arrest that night secondary to sepsis. Surgery at that time was deferred. Patient now is intubated sedated and unable to sign his consent.. Patient has no family and [facility] visitor. He has 1 son which no one has been able to get hold off right several attempts. Considering patient has gangrene of the foot with no vascular supply leading to sepsis and if untreatable lead to his , Dr. Johns will proceed with amputation today, 03/05/2024. Dr. Collins and Dr. Johns has signed 2 physician consent considering patient's clearly expressed wishes prior to cardiac arrest at the time of admission, his current situation and inability to sign the consent form by himself at this time. 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 -complete 5 days of clindamycin 03/13: Discussed with surgery, there is flexion contractures of his amputation which may hinder in him getting prosthetics, patient may require above knee amputation (7) Osteomyelitis of toe of right foot: Code(s): M86.9 - Osteomyelitis, unspecified Status: Chronic Assessment and Plan: As above (8) Peripheral vascular disease: Code(s): I73.9 - Peripheral vascular disease, unspecified Status: Chronic Assessment and Plan: Patient has history of peripheral vascular disease, coronary artery disease -started on aspirin, patient will require Brilinta since he had a STEMI in 2020 but currently holding Brilinta due to surgery and bleeding (9) Type 2 diabetes mellitus: Qualifiers: 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 complication status: with other specified complication 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 Qualified Code(s): E11.69 - Type 2 diabetes mellitus with other specified complication; 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 Code(s): E11.9 - Type 2 diabetes mellitus without complications Status: Acute Assessment and Plan: Currently on sliding scale insulin, Accu-Cheks Hemoglobin A1c this admission is 8.2 Lantus is on hold (10) Chronic obstructive pulmonary disease: Code(s): J44.9 - Chronic obstructive pulmonary disease, unspecified Status: Chronic Assessment and Plan: Continue DuoNebs -continue Symbicort (11) Electrolyte abnormality: Code(s): E87.8 - Other disorders of electrolyte and fluid balance, not elsewhere classified Status: Acute Assessment and Plan: Hypernatremia, improved with free water flush (12) Ileus: Code(s): K56.7 - Ileus, unspecified Status: Acute Assessment and Plan: CT scan shows significant amount of tube feeds collected in the stomach. Patient also had high residuals. Patient has already been on Reglan. Bowel sounds are present but decreased. Tube feeds currently on hold. Will start at a low rate after the thoracentesis Plan DVT prophylaxis: Heparin subQ Stress ulcer prophylaxis: Protonix Nutrition: Tube feeds on hold due to high residuals. Continue Reglan. Resume tube feeds at low rate today Code Status: Full code. 03/15 Patient has no family available. Patient was extubated on 03/14 and I spoke to patient post extubation. I mentioned possibility of him needing re- intubation and he was agreeable stating that he is not ready to at this time. He stated that do whatever needs to be done to keep me alive. I also mentioned to him that if he gets reintubated and is unable to be weaned he will need tracheostomy and PEG tube placement and he states that he is agreeable to do it if needed. He did mention that he has some nephews in area which can be contacted. primary care coordinator was provided that information. Critical Care Time Spent: 30 minutes Due to a high probability of clinically significant, life threatening deterioration, the patient required my highest level of preparedness to intervene emergently and I personally spent this critical care time directly and personally managing the patient. This critical care time included obtaining a history; examining the patient; pulse oximetry; ordering and review of studies; arranging urgent treatment with development of a management plan; evaluation of patient's response to treatment; frequent reassessment; and discussions with other providers. It was exclusive of separately billable procedures and treating other patients and teaching time. Please see Assessment and Plan section and the rest of the note for further information on patient assessment and treatment This dictation may have been done utilizing a voice recognition system. Attempts have been made to correct errors. However, there may be uncorrected grammatical, spelling, and recognitions errors present. Subjective Date/time seen: 03/18/24 Overnight events reviewed. Afebrile Continues to be on mechanical ventilation 30% FiO2 He had thoracentesis done on the right side and 1 L fluid was removed Continues to be sedated with fentanyl and Precedex Other Vitals acceptable Interval history: Reason for consult: Status post PEA arrest, right foot gangrene with cellulitis, shock 02/27: Intubated 03/05:Right below-knee amputation with placement of posterior Ortho Glass splint 03/14: extubated and reintubated 03/17 right-sided thoracentesis and 1 L fluid was removed Review of Systems Review of Systems: ROS unobtainable: Yes unobtainable due to endotracheal tube, unobtainable due to medical condition and unobtainable due to mental status Exam Narrative: General: Patient intubated and sedated, in no acute distress HEENT:, pupils are equal and reactive from a sclera is clear Neck:? supple Respiratory:? Coarse breath sounds bilaterally, decreased at bases, adequate air entry, no wheezing Cardiac:? S1-S2 normal, regular rate and rhythm Abdomen:? Soft, nontender, nondistended, bowel sounds are decreased but present Extremities:? Right BKA stump under the dressing. Left dorsalis pedis is dopplerable Neuro:? Patient is intubated, on Precedex and fentanyl infusion opens his eyes on stimulation but does not follows simple commands Skin:? Patient has maceration of his perianal area, pressure ulcer on his buttocks. Psych:? Unable to assess at this time Objective Data Vital Signs Vital Signs: Vital Signs - 24 hr 03/17/24 10:00 03/17/24 10:00 03/17/24 10:00 Temperature Pulse Rate 77 77 77 Respiratory Rate 16 16 Blood Pressure 98/59 L Pulse Oximetry Oxygen Delivery Fraction of Inspired Oxygen 03/17/24 10:00 03/17/24 10:00 03/17/24 10:45 Temperature 37.3 C Pulse Rate 77 77 73 Respiratory Rate 16 Blood Pressure 98/59 L Pulse Oximetry 96 97 Oxygen Delivery Mechanical Ventilation Fraction of Inspired Oxygen 30 03/17/24 11:52 03/17/24 12:00 03/17/24 12:00 Temperature Pulse Rate 73 73 Respiratory Rate Blood Pressure 101/62 Pulse Oximetry Oxygen Delivery Fraction of Inspired Oxygen 30 03/17/24 12:00 03/17/24 12:00 03/17/24 13:13 Temperature 37.1 C Pulse Rate 73 73 73 Respiratory Rate 16 16 16 Blood Pressure 97/58 L Pulse Oximetry 97 97 Oxygen Delivery Mechanical Ventilation Fraction of Inspired Oxygen 30 03/17/24 13:13 03/17/24 13:00 03/17/24 13:00 Temperature Pulse Rate 73 71 71 Respiratory Rate 16 16 Blood Pressure Pulse Oximetry 97 Oxygen Delivery Mechanical Ventilation Fraction of Inspired Oxygen 30 03/17/24 13:10 03/17/24 14:00 03/17/24 14:00 Temperature 36.9 C Pulse Rate 77 75 75 Respiratory Rate 16 16 Blood Pressure 95/58 L Pulse Oximetry 97 Oxygen Delivery Fraction of Inspired Oxygen 03/17/24 14:00 03/17/24 14:00 03/17/24 12:00 Temperature Pulse Rate 75 75 76 Respiratory Rate 16 16 Blood Pressure 95/58 L Pulse Oximetry Oxygen Delivery Fraction of Inspired Oxygen 03/17/24 14:00 03/17/24 16:05 03/17/24 16:00 Temperature Pulse Rate 75 82 78 Respiratory Rate 16 Blood Pressure Pulse Oximetry 96 Oxygen Delivery Mechanical Ventilation Fraction of Inspired Oxygen 30 03/17/24 16:00 03/17/24 16:00 03/17/24 16:00 Temperature 36.7 C Pulse Rate 73 74 Respiratory Rate 16 16 Blood Pressure 90/58 L Pulse Oximetry 99 99 Oxygen Delivery Mechanical Ventilation Fraction of Inspired Oxygen 30 30 03/17/24 16:00 03/17/24 16:00 03/17/24 17:32 Temperature Pulse Rate 76 76 72 Respiratory Rate 16 Blood Pressure 106/61 86/51 L Pulse Oximetry Oxygen Delivery Fraction of Inspired Oxygen 03/17/24 16:00 03/17/24 18:00 03/17/24 18:00 Temperature 36.7 C Pulse Rate 76 70 70 Respiratory Rate 16 16 Blood Pressure 95/56 L Pulse Oximetry 97 Oxygen Delivery Fraction of Inspired Oxygen 03/17/24 18:11 03/17/24 18:12 03/17/24 18:12 Temperature Pulse Rate 76 82 80 Respiratory Rate 18 16 Blood Pressure 95/56 L Pulse Oximetry Oxygen Delivery Fraction of Inspired Oxygen 03/17/24 18:18 03/17/24 18:18 03/17/24 19:27 Temperature Pulse Rate 72 72 81 Respiratory Rate 16 Blood Pressure 119/67 119/67 Pulse Oximetry Oxygen Delivery Fraction of Inspired Oxygen 03/17/24 19:44 03/17/24 19:44 03/17/24 19:46 Temperature Pulse Rate 75 75 73 Respiratory Rate 18 18 Blood Pressure 87/49 L Pulse Oximetry Oxygen Delivery Fraction of Inspired Oxygen 03/17/24 20:00 03/17/24 20:00 03/17/24 20:23 Temperature Pulse Rate 76 75 Respiratory Rate 18 16 Blood Pressure Pulse Oximetry Oxygen Delivery Fraction of Inspired Oxygen 30 03/17/24 20:00 03/17/24 20:00 03/17/24 20:00 Temperature 36.8 C Pulse Rate 75 76 74 Respiratory Rate 16 16 Blood Pressure 128/71 128/71 Pulse Oximetry 96 96 Oxygen Delivery Mechanical Ventilation Fraction of Inspired Oxygen 30 03/17/24 20:27 03/17/24 20:32 03/17/24 20:45 Temperature Pulse Rate 77 75 76 Respiratory Rate 15 Blood Pressure 125/69 Pulse Oximetry 96 Oxygen Delivery Mechanical Ventilation Fraction of Inspired Oxygen 30 03/17/24 20:00 03/17/24 20:42 03/17/24 21:23 Temperature Pulse Rate 81 77 78 Respiratory Rate 16 Blood Pressure 115/64 Pulse Oximetry Oxygen Delivery Fraction of Inspired Oxygen 03/17/24 22:00 03/17/24 22:00 03/17/24 22:00 Temperature 36.8 C Pulse Rate 74 74 73 Respiratory Rate 16 16 Blood Pressure 102/59 L Pulse Oximetry 96 Oxygen Delivery Fraction of Inspired Oxygen 03/17/24 22:00 03/17/24 22:00 03/17/24 23:37 Temperature Pulse Rate 73 73 76 Respiratory Rate 16 19 Blood Pressure 102/59 L Pulse Oximetry Oxygen Delivery Fraction of Inspired Oxygen 03/17/24 23:37 03/17/24 23:45 03/17/24 23:45 Temperature Pulse Rate 76 71 Respiratory Rate 19 16 Blood Pressure Pulse Oximetry 97 Oxygen Delivery Mechanical Ventilation Fraction of Inspired Oxygen 30 30 03/17/24 23:45 03/18/24 00:00 03/18/24 00:00 Temperature 36.9 C Pulse Rate 72 72 71 Respiratory Rate 16 Blood Pressure 108/61 Pulse Oximetry 98 98 Oxygen Delivery Mechanical Ventilation Fraction of Inspired Oxygen 30 03/18/24 01:07 03/18/24 01:07 03/18/24 02:00 Temperature Pulse Rate 70 70 73 Respiratory Rate 16 16 17 Blood Pressure Pulse Oximetry Oxygen Delivery Fraction of Inspired Oxygen 03/18/24 02:00 03/18/24 02:00 03/18/24 02:00 Temperature Pulse Rate 73 72 72 Respiratory Rate 16 Blood Pressure 105/63 Pulse Oximetry Oxygen Delivery Fraction of Inspired Oxygen 03/18/24 02:00 03/18/24 03:06 03/18/24 03:12 Temperature 37.1 C Pulse Rate 71 71 70 Respiratory Rate 17 16 Blood Pressure 105/63 Pulse Oximetry 98 97 Oxygen Delivery Mechanical Ventilation Fraction of Inspired Oxygen 30 03/18/24 03:53 03/18/24 03:55 03/18/24 04:00 Temperature Pulse Rate 79 79 Respiratory Rate 17 16 Blood Pressure Pulse Oximetry 97 Oxygen Delivery Mechanical Ventilation Fraction of Inspired Oxygen 30 30 03/18/24 04:00 03/18/24 04:00 03/18/24 04:00 Temperature 36.9 C Pulse Rate 79 79 78 Respiratory Rate 17 17 Blood Pressure 115/66 115/66 Pulse Oximetry 97 Oxygen Delivery Fraction of Inspired Oxygen 03/18/24 04:00 03/18/24 05:05 03/18/24 05:16 Temperature Pulse Rate 77 72 74 Respiratory Rate 16 Blood Pressure Pulse Oximetry 97 Oxygen Delivery Mechanical Ventilation Fraction of Inspired Oxygen 30 03/18/24 05:16 03/18/24 05:30 03/18/24 06:00 Temperature Pulse Rate 74 72 71 Respiratory Rate 16 16 16 Blood Pressure Pulse Oximetry Oxygen Delivery Fraction of Inspired Oxygen 03/18/24 06:00 03/18/24 06:00 03/18/24 06:00 Temperature Pulse Rate 71 72 70 Respiratory Rate 16 Blood Pressure 98/58 L Pulse Oximetry Oxygen Delivery Fraction of Inspired Oxygen 03/18/24 06:00 Temperature 36.7 C Pulse Rate 70 Respiratory Rate 16 Blood Pressure 98/58 L Pulse Oximetry 97 Oxygen Delivery Fraction of Inspired Oxygen Intake/Output Intake/Output: Intake & Output 03/16/24 03/16/24 03/17/24 03/18/24 00:59 23:59 23:59 23:59 Intake Total 877.7 521.9 Output Total 2200 425 Balance -1322.3 96.9 Meds/Results Medications: Active Medications Generic Name Dose Route Start Last Admin Trade Name Freq PRN Reason Stop Dose Admin Acetaminophen 500 mg 03/08/24 10:18 03/13/24 09:24 Acetaminophen 500 Mg Tablet FEED TUBE 500 mg Q6H PRN Administration Pain Rated 1-3 Albuterol/Ipratropium 3 ml 02/29/24 02:00 03/18/24 03:08 Ipratropium 0.5 Mg/Albuterol Sulfate 2.5 Mg Ampul.Neb 3 Ml INHALATION 3 ml Q6HRT JASON Administration Alteplase, Recombinant 2 mg 03/06/24 09:45 03/06/24 13:10 Alteplase 2 Mg Vial (Cathflo) IV PUSH 2 mg ONCE PRN Administration Line Occlusion Aspirin 81 mg 03/09/24 08:00 03/18/24 08:22 Aspirin 81 Mg Chewable Tablet FEED TUBE 81 mg DAILY@0800 JASON Administration Dextrose 12.5 gm 02/28/24 19:23 Dextrose 50% 25 Gm/50 Ml Syringe IV PUSH PRN PRN Hypoglycemia Protocol Glucagon 1 mg 02/28/24 19:23 Glucagon For Inj 1 Mg Vial IM PRN PRN Hypoglycemia Protocol Glucose 15 gm 03/08/24 10:19 Glucose Oral Gel 15 Gm Of Glucse In 37.5 Gm Tube FEED TUBE PRN PRN Hypoglycemia Protocol Heparin Sodium (Porcine) 5,000 units 03/03/24 14:00 03/17/24 06:13 Heparin Sodium 5,000 Units/Ml Vial SUB-Q 5,000 units Q8HR JASON Administration Hydralazine HCl 20 mg 03/08/24 10:06 Hydralazine Hcl 20 Mg/Ml Vial IV PUSH Q4HR PRN Hypertension Dextrose 1,000 mls @ 100 mls/hr 02/28/24 19:23 Dextrose 5% 1,000 Ml IVPB PRN PRN Hypoglycemia Protocol Dexmedetomidine HCl 400 mcg in 100 mls @ 17.378 mls/hr 03/11/24 21:50 03/18/24 06:00 Precedex 400 Mcg/100 Ml IV CONT 0.7 mcg/kg/hr .Q5H46M JASON 17.38 mls/hr Titration Protocol 0.7 MCG/KG/HR Fentanyl Citrate 2,500 mcg in 250 mls @ 5 mls/hr 03/14/24 23:20 03/18/24 06:00 Fentanyl 2,500 Mcg/Ns 250 Ml IV CONT 25 mcg/hr .Q50H JASON 2.5 mls/hr Titration Protocol 50 MCG/HR Norepinephrine Bitartrate 8 mg in 250 mls @ 1.875 mls/hr 03/15/24 13:30 03/18/24 06:00 Levophed 8 Mg/D5w 250 Ml IV CONT 1 mcg/min .Q24H JASON 1.88 mls/hr Titration Protocol 1 MCG/MIN Cefepime HCl 2 gm in 50 mls @ 100 mls/hr 03/17/24 09:00 03/18/24 08:21 Maxipime 2 Gm/Ns 50 Ml IVPB 100 mls/hr Q12H JASON Administration Albumin Human 100 mls @ 60 mls/hr 03/18/24 07:46 03/18/24 08:29 Albutein IVPB 03/18/24 09:25 60 mls/hr ONCE ONE Administration Insulin Aspart 3 - 6 units 03/15/24 17:00 03/18/24 08:28 Insulin Aspart (*Bkc) 100 Units/Ml SUB-Q Not Given Q4HR [facility] Protocol Insulin Glargine 55 units 03/15/24 09:00 03/16/24 10:44 Insulin Glargine (*Bkc) 100 Units/Ml SUB-Q 55 units DAILY JASON Administration Labetalol HCl 20 mg 03/08/24 10:06 03/08/24 16:48 Labetalol Hcl Inj 100 Mg/20 Ml Vial IV PUSH 20 mg Q4H PRN Administration SBP > 160 and HR> 60 -1st choice Metoclopramide HCl 10 mg 03/16/24 18:00 03/18/24 05:16 Metoclopramide Hcl Inj 10 Mg/2 Ml Vial IV PUSH 10 mg Q6HR JASON Administration Multi-Ingred Cream/Lotion/Oil/Oint 1 applic 03/15/24 09:00 03/18/24 08:29 Mineral Oil/White Petrolatum Ointment EACH EYE 1 applic Q12HR JASON Administration Pantoprazole Sodium 40 mg 03/02/24 09:00 03/18/24 08:23 Pantoprazole Sodium Iv 40 Mg Vial IV PUSH 40 mg Q12HR JASON Administration Sodium Chloride 10 ml 02/29/24 06:00 03/18/24 05:16 Central Line Flush IV PUSH 10 ml Q8HR JASON Administration Sodium Chloride 20 ml 02/28/24 23:37 Central Line Flush IV PUSH PRN PRN after blood draws Radiology Results: ITS Impressions Lower Extremity CTA 02/28/24 14:54 IMPRESSION: 1. 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 2. Moderate stenosis of right popliteal artery. 3. Osteomyelitis involving first proximal and distal phalanges and head of first metatarsal. Head CT 02/29/24 05:55 Impression: No intracranial hemorrhage, mass, or acute infarct. Stable chronic encephalomalacia in the high left parietal lobe. Atrophy and chronic white matter changes, as above. Chest/Abdomen/Pelvis CTA 02/29/24 06:02 Impression: Extensive right upper lobe consolidation and more mild right middle lobe consolidation, consistent with pneumonia. Consider aspiration pneumonia. Moderate to large right pleural effusion with complete atelectasis of the right lower lobe. Moderate left pleural effusion with minimal left basilar atelectasis. Small pericardial effusion. No definite acute abnormality in the abdomen or pelvis. Chronic compression fractures, as above. Renal Ultrasound 03/03/24 15:45 IMPRESSION: 1. Normal kidneys without hydronephrosis. 2. Small amount of ascites in the abdomen and pelvis. Venous Doppler Study 03/11/24 13:58 IMPRESSION: 1. Patent bilateral upper extremity veins. No evidence of venous thrombosis. Abdomen Ultrasound 03/13/24 16:52 IMPRESSION: 1. No etiology for abnormal liver function tests. 2. Normal hepatic veins and main portal vein. Right and left portal veins and proper hepatic artery not evaluated. 3. Right pleural effusion. Vascular Ultrasound 03/13/24 16:52 IMPRESSION: 1. No etiology for abnormal liver function tests. 2. Normal hepatic veins and main portal vein. Right and left portal veins and proper hepatic artery not evaluated. 3. Right pleural effusion. Abdomen X-Ray 03/16/24 19:53 IMPRESSION: Orogastric tube in satisfactory position in the stomach Chest/Abdomen/Pelvis CT 03/16/24 21:51 IMPRESSION: Anasarca Large pleural effusions with prominent compressive atelectasis of the lower lobes especially, dependent atelectasis of the middle and upper lobes Heart size. Prominent coronary artery atherosclerotic calcifications Minimal pericardial effusion Prominent diffuse thickening of urinary bladder wall suggesting cystitis area Ha catheter in bladder lumen Very prominent amount of fluid and large fluid level within the stomach despite presence of NG tube T11 and L1 moderate anterior wedge compression fractures, likely chronic Thoracentesis Ultrasound 03/17/24 15:43 IMPRESSION: 1. Successful ultrasound-guided thoracentesis yielding 1000 mL of clear, yellow fluid. Chest X-Ray 03/18/24 06:02 Impression: Small bilateral pleural effusions with probable mild central pulmonary edema pattern. Support tubes, as above. Labs Labs: Laboratory Results - last 24 hr 03/17/24 03/17/24 03/17/24 11:44 18:17 20:58 WBC RBC Hgb Hct MCV MCH MCHC RDW Plt Count 276 MPV 10.4 PT 17.8 H INR 1.4 APTT 41.1 H Puncture Site ABG pH ABG pCO2 ABG pO2 ABG PO2/FiO2 Ratio ABG HCO3 ABG O2 Saturation ABG O2 Content ABG Base Excess A-a Gradient Oxyhemoglobin Carboxyhemoglobin Methemoglobin Reduced Hemoglobin Total Hemoglobin O2 Delivery Device O2 Liters/Min Minute Volume Vent Rate Vent Mode FiO2 Tidal Volume PEEP Peak Inspir Pressure Pressure Support Sodium Potassium Chloride Carbon Dioxide Anion Gap BUN Creatinine Estim Creat Clear Calc Estimated GFR Glucose POC Capillary Glucose 130 H 160 H Calcium Magnesium Total Bilirubin AST ALT Alkaline Phosphatase Total Protein Albumin 03/18/24 03/18/24 03/18/24 00:22 05:05 05:06 WBC 11.7 H RBC 2.80 L Hgb 7.7 L Hct 26.0 L MCV 92.9 MCH 27.5 MCHC 29.6 L RDW 17.7 H Plt Count 249 MPV 10.7 H PT 17.8 H INR 1.4 APTT Puncture Site Right brachial ABG pH 7.446 ABG pCO2 42.3 ABG pO2 92.7 ABG PO2/FiO2 Ratio 3.09 ABG HCO3 28.5 H ABG O2 Saturation 97.3 ABG O2 Content 11.0 L ABG Base Excess 4.0 A-a Gradient 71.5 Oxyhemoglobin 95.3 Carboxyhemoglobin 1.8 Methemoglobin 0.1 Reduced Hemoglobin 2.8 Total Hemoglobin 8.1 L O2 Delivery Device Ventilator O2 Liters/Min Not Reportable Minute Volume Not Reportable Vent Rate 16 Vent Mode Cmv FiO2 30 Tidal Volume 380 PEEP 5 Peak Inspir Pressure Not Reportable Pressure Support Not Reportable Sodium 145 Potassium 4.0 Chloride 110 H Carbon Dioxide 30 Anion Gap 5 BUN 34 H Creatinine 0.80 Estim Creat Clear Calc 90 Estimated GFR > 60 Glucose 165 H POC Capillary Glucose 157 H Calcium 7.7 L Magnesium 2.6 H Total Bilirubin 0.7 AST 33 ALT 120 H Alkaline Phosphatase 247 H Total Protein 6.0 L Albumin 2.5 L 03/18/24 08:28 WBC RBC Hgb Hct MCV MCH MCHC RDW Plt Count MPV PT INR APTT Puncture Site ABG pH ABG pCO2 ABG pO2 ABG PO2/FiO2 Ratio ABG HCO3 ABG O2 Saturation ABG O2 Content ABG Base Excess A-a Gradient Oxyhemoglobin Carboxyhemoglobin Methemoglobin Reduced Hemoglobin Total Hemoglobin O2 Delivery Device O2 Liters/Min Minute Volume Vent Rate Vent Mode FiO2 Tidal Volume PEEP Peak Inspir Pressure Pressure Support Sodium Potassium Chloride Carbon Dioxide Anion Gap BUN Creatinine Estim Creat Clear Calc Estimated GFR Glucose POC Capillary Glucose 160 H Calcium Magnesium Total Bilirubin AST ALT Alkaline Phosphatase Total Protein Albumin Quality VTE Prophylaxis VTE prophylaxis: pharmacologic ordered
[2024-03-18] MEDS: fentaNYL CITRATE INJ (*CRX) 100 MCG/2 ML VIAL 25 MCG IV PUSH (10:45)
--- NOTE | 2024-03-18 10:52 | PCNFU ---
Nutrition Follow-Up Complete: Suboptimal Energy Intake as related to mechanical vent as evidenced by NPO. Meet estimated nutritional needs - Not meeting goal today, tube feeding is on hold Goal: Pt current nutrition is ON HOLD for thoracentesis. Nutrition recommendation: restart tube feeding after procedure. Vital 1.2 goal rate 60 ml/h: 1584 kcal, 99 g protein, 1070 ml free water. Start at 20 ml/h for tolerance and advance 10 ml q 4 hours. Last recorded weight is 97.2 kg. Bowel Motility: Last BM 03/15/24 Labs Reviewed: Hgb 7.7, Hct 26, Alb 2.5, BUN 34, Glu 165 Meds Noted: fentanyl, precedex, lveophed, reglan, novolog, protonix, lantus Skin: R BKA, Stage II pressure to sacrum Additional Notes: Tube feeding was on hold for thoracentesis. Pt was having some intolerance so formula was switched to Vital AF 1.2 and rate will start at 20 ml/h. Agree with orders Will monitor weight, labs, skin, tube feedings, meds, every Sunday and Sunday.
[2024-03-18 11:58] LABS: Glucose Point of Care 179 mg/dl (65-105)
--- NOTE | 2024-03-18 12:54 | PM.PNGS ---
Progress Note: A&P Assessment and Plan (1) Amputation of right lower extremity below knee: Qualifiers: Encounter type: subsequent encounter Qualified Code(s): S88.111D - Complete traumatic amputation at level between knee and ankle, right lower leg, subsequent encounter Code(s): S88.111A - Complete traumatic amputation at level between knee and ankle, right lower leg, initial encounter Status: Acute Assessment and Plan: Postop day 13. Wound healing adequately. Redressed with gauze and Tobi wraps. Continue to use the knee immobilizer on the right BKA. (2) Acute respiratory failure with hypoxia: Code(s): J96.01 - Acute respiratory failure with hypoxia Status: Acute Assessment and Plan: Continues to fail breathing trials and unable to be extubated. Management per [facility]. (3) Chronic obstructive pulmonary disease: Code(s): J44.9 - Chronic obstructive pulmonary disease, unspecified Status: Chronic Plan I have discussed the patient's case and plan of care with Dr. Johns. Subjective Subjective Date/Time Seen: 03/18/24 12:54 Post Op day: 13 (Right BKA) Interval history: Patient is seen with Dr. Johns at the bedside. He is in the ICU and still intubated. He has slow respirations and has been failing his breathing trials. Exam Const: General: ill appearing Orientation/consciousness: patient obtunded (Intubated) Urinary Catheter: Urinary Catheter: patent and draining Extrem: Other: Knee immobilizer in place to right lower extremity. Right BKA dressing removed. Incision is healing well with some mild non-pitting edema and serous filled blisters of the skin at the right distal stump. Knee appears more straight today with more knee extension than last week. No drainage or erythema. Gauze dressing and Tobi wrap reapplied. Knee immobilizer put back in place. Objective Data Vital Signs Vital Signs: Vital Signs - 24 hr 03/17/24 13:13 03/17/24 13:13 03/17/24 13:00 Temperature Pulse Rate 73 73 71 Respiratory Rate 16 16 Blood Pressure Pulse Oximetry 97 Oxygen Delivery Mechanical Ventilation Fraction of Inspired Oxygen 30 03/17/24 13:00 03/17/24 13:10 03/17/24 14:00 Temperature Pulse Rate 71 77 75 Respiratory Rate 16 16 Blood Pressure Pulse Oximetry Oxygen Delivery Fraction of Inspired Oxygen 03/17/24 14:00 03/17/24 14:00 03/17/24 14:00 Temperature 98.4 F Pulse Rate 75 75 75 Respiratory Rate 16 16 Blood Pressure 95/58 L 95/58 L Pulse Oximetry 97 Oxygen Delivery Fraction of Inspired Oxygen 03/17/24 14:00 03/17/24 16:05 03/17/24 16:00 Temperature Pulse Rate 75 82 78 Respiratory Rate 16 Blood Pressure Pulse Oximetry 96 Oxygen Delivery Mechanical Ventilation Fraction of Inspired Oxygen 30 03/17/24 16:00 03/17/24 16:00 03/17/24 16:00 Temperature 98.0 F Pulse Rate 73 74 Respiratory Rate 16 16 Blood Pressure 90/58 L Pulse Oximetry 99 99 Oxygen Delivery Mechanical Ventilation Fraction of Inspired Oxygen 30 30 03/17/24 16:00 03/17/24 16:00 03/17/24 17:32 Temperature Pulse Rate 76 76 72 Respiratory Rate 16 Blood Pressure 106/61 86/51 L Pulse Oximetry Oxygen Delivery Fraction of Inspired Oxygen 03/17/24 16:00 03/17/24 18:00 03/17/24 18:00 Temperature 98.0 F Pulse Rate 76 70 70 Respiratory Rate 16 16 Blood Pressure 95/56 L Pulse Oximetry 97 Oxygen Delivery Fraction of Inspired Oxygen 03/17/24 18:11 03/17/24 18:12 03/17/24 18:12 Temperature Pulse Rate 76 82 80 Respiratory Rate 18 16 Blood Pressure 95/56 L Pulse Oximetry Oxygen Delivery Fraction of Inspired Oxygen 03/17/24 18:18 03/17/24 18:18 03/17/24 19:27 Temperature Pulse Rate 72 72 81 Respiratory Rate 16 Blood Pressure 119/67 119/67 Pulse Oximetry Oxygen Delivery Fraction of Inspired Oxygen 03/17/24 19:44 03/17/24 19:44 03/17/24 19:46 Temperature Pulse Rate 75 75 73 Respiratory Rate 18 18 Blood Pressure 87/49 L Pulse Oximetry Oxygen Delivery Fraction of Inspired Oxygen 03/17/24 20:00 03/17/24 20:00 03/17/24 20:23 Temperature Pulse Rate 76 75 Respiratory Rate 18 16 Blood Pressure Pulse Oximetry Oxygen Delivery Fraction of Inspired Oxygen 30 03/17/24 20:00 03/17/24 20:00 03/17/24 20:00 Temperature 98.2 F Pulse Rate 75 76 74 Respiratory Rate 16 16 Blood Pressure 128/71 128/71 Pulse Oximetry 96 96 Oxygen Delivery Mechanical Ventilation Fraction of Inspired Oxygen 30 03/17/24 20:27 03/17/24 20:32 03/17/24 20:45 Temperature Pulse Rate 77 75 76 Respiratory Rate 15 Blood Pressure 125/69 Pulse Oximetry 96 Oxygen Delivery Mechanical Ventilation Fraction of Inspired Oxygen 30 03/17/24 20:00 03/17/24 20:42 03/17/24 21:23 Temperature Pulse Rate 81 77 78 Respiratory Rate 16 Blood Pressure 115/64 Pulse Oximetry Oxygen Delivery Fraction of Inspired Oxygen 03/17/24 22:00 03/17/24 22:00 03/17/24 22:00 Temperature 98.2 F Pulse Rate 74 74 73 Respiratory Rate 16 16 Blood Pressure 102/59 L Pulse Oximetry 96 Oxygen Delivery Fraction of Inspired Oxygen 03/17/24 22:00 03/17/24 22:00 03/17/24 23:37 Temperature Pulse Rate 73 73 76 Respiratory Rate 16 19 Blood Pressure 102/59 L Pulse Oximetry Oxygen Delivery Fraction of Inspired Oxygen 03/17/24 23:37 03/17/24 23:45 03/17/24 23:45 Temperature Pulse Rate 76 71 Respiratory Rate 19 16 Blood Pressure Pulse Oximetry 97 Oxygen Delivery Mechanical Ventilation Fraction of Inspired Oxygen 30 30 03/17/24 23:45 03/18/24 00:00 03/18/24 00:00 Temperature 98.4 F Pulse Rate 72 72 71 Respiratory Rate 16 Blood Pressure 108/61 Pulse Oximetry 98 98 Oxygen Delivery Mechanical Ventilation Fraction of Inspired Oxygen 30 03/18/24 01:07 03/18/24 01:07 03/18/24 02:00 Temperature Pulse Rate 70 70 73 Respiratory Rate 16 16 17 Blood Pressure Pulse Oximetry Oxygen Delivery Fraction of Inspired Oxygen 03/18/24 02:00 03/18/24 02:00 03/18/24 02:00 Temperature Pulse Rate 73 72 72 Respiratory Rate 16 Blood Pressure 105/63 Pulse Oximetry Oxygen Delivery Fraction of Inspired Oxygen 03/18/24 02:00 03/18/24 03:06 03/18/24 03:12 Temperature 98.7 F Pulse Rate 71 71 70 Respiratory Rate 17 16 Blood Pressure 105/63 Pulse Oximetry 98 97 Oxygen Delivery Mechanical Ventilation Fraction of Inspired Oxygen 30 03/18/24 03:53 03/18/24 03:55 03/18/24 04:00 Temperature Pulse Rate 79 79 Respiratory Rate 17 16 Blood Pressure Pulse Oximetry 97 Oxygen Delivery Mechanical Ventilation Fraction of Inspired Oxygen 30 30 03/18/24 04:00 03/18/24 04:00 03/18/24 04:00 Temperature 98.4 F Pulse Rate 79 79 78 Respiratory Rate 17 17 Blood Pressure 115/66 115/66 Pulse Oximetry 97 Oxygen Delivery Fraction of Inspired Oxygen 03/18/24 04:00 03/18/24 05:05 03/18/24 05:16 Temperature Pulse Rate 77 72 74 Respiratory Rate 16 Blood Pressure Pulse Oximetry 97 Oxygen Delivery Mechanical Ventilation Fraction of Inspired Oxygen 30 03/18/24 05:16 03/18/24 05:30 03/18/24 06:00 Temperature Pulse Rate 74 72 71 Respiratory Rate 16 16 16 Blood Pressure Pulse Oximetry Oxygen Delivery Fraction of Inspired Oxygen 03/18/24 06:00 03/18/24 06:00 03/18/24 06:00 Temperature Pulse Rate 71 72 70 Respiratory Rate 16 Blood Pressure 98/58 L Pulse Oximetry Oxygen Delivery Fraction of Inspired Oxygen 03/18/24 06:00 03/18/24 09:06 03/18/24 09:06 Temperature 98.1 F Pulse Rate 70 71 71 Respiratory Rate 16 17 Blood Pressure 98/58 L Pulse Oximetry 97 96 Oxygen Delivery Mechanical Ventilation Fraction of Inspired Oxygen 30 03/18/24 09:33 03/18/24 08:00 03/18/24 08:00 Temperature 98.3 F Pulse Rate 80 68 68 Respiratory Rate 16 16 Blood Pressure 92/56 L Pulse Oximetry 97 Oxygen Delivery Fraction of Inspired Oxygen 03/18/24 08:00 03/18/24 10:00 03/18/24 10:00 Temperature 98.4 F Pulse Rate 80 80 Respiratory Rate 19 Blood Pressure 96/55 L Pulse Oximetry 96 Oxygen Delivery Fraction of Inspired Oxygen 30 03/18/24 08:00 03/18/24 11:00 03/18/24 08:00 Temperature Pulse Rate 68 80 68 Respiratory Rate 16 16 Blood Pressure Pulse Oximetry 97 96 Oxygen Delivery Mechanical Ventilation Mechanical Ventilation Fraction of Inspired Oxygen 30 30 03/18/24 10:00 03/18/24 11:50 03/18/24 11:50 Temperature Pulse Rate 80 73 73 Respiratory Rate 19 14 14 Blood Pressure Pulse Oximetry Oxygen Delivery Fraction of Inspired Oxygen Intake/Output Intake/Output: Intake & Output 1103/16/24 03/17/24 03/18/24 00:59 23:59 23:59 23:59 Intake Total 877.7 609.2 Output Total 7370 975 Balance -1322.3 -365.8 Meds/Results Medications: Active Medications Generic Name Dose Route Start Last Admin Trade Name Freq PRN Reason Stop Dose Admin Acetaminophen 500 mg 03/08/24 10:18 03/13/24 09:24 Acetaminophen 500 Mg Tablet FEED TUBE 500 mg Q6H PRN Administration Pain Rated 1-3 Albuterol/Ipratropium 3 ml 02/29/24 02:00 03/18/24 09:00 Ipratropium 0.5 Mg/Albuterol Sulfate 2.5 Mg Ampul.Neb 3 Ml INHALATION 3 ml Q6HRT JASON Administration Alteplase, Recombinant 2 mg 03/06/24 09:45 03/06/24 13:10 Alteplase 2 Mg Vial (Cathflo) IV PUSH 2 mg ONCE PRN Administration Line Occlusion Aspirin 81 mg 03/09/24 08:00 03/18/24 08:22 Aspirin 81 Mg Chewable Tablet FEED TUBE 81 mg DAILY@0800 JASON Administration Dextrose 12.5 gm 02/28/24 19:23 Dextrose 50% 25 Gm/50 Ml Syringe IV PUSH PRN PRN Hypoglycemia Protocol Glucagon 1 mg 02/28/24 19:23 Glucagon For Inj 1 Mg Vial IM PRN PRN Hypoglycemia Protocol Glucose 15 gm 03/08/24 10:19 Glucose Oral Gel 15 Gm Of Glucse In 37.5 Gm Tube FEED TUBE PRN PRN Hypoglycemia Protocol Heparin Sodium (Porcine) 5,000 units 03/03/24 14:00 03/17/24 06:13 Heparin Sodium 5,000 Units/Ml Vial SUB-Q 5,000 units Q8HR JASON Administration Hydralazine HCl 20 mg 03/08/24 10:06 Hydralazine Hcl 20 Mg/Ml Vial IV PUSH Q4HR PRN Hypertension Dextrose 1,000 mls @ 100 mls/hr 02/28/24 19:23 Dextrose 5% 1,000 Ml IVPB PRN PRN Hypoglycemia Protocol Dexmedetomidine HCl 400 mcg in 100 mls @ 17.378 mls/hr 03/11/24 21:50 03/18/24 11:50 Precedex 400 Mcg/100 Ml IV CONT 0.7 mcg/kg/hr .Q5H46M JASON 17.38 mls/hr Administration Protocol 0.7 MCG/KG/HR Fentanyl Citrate 2,500 mcg in 250 mls @ 5 mls/hr 03/14/24 23:20 03/18/24 06:00 Fentanyl 2,500 Mcg/Ns 250 Ml IV CONT 25 mcg/hr .Q50H JASON 2.5 mls/hr Titration Protocol 50 MCG/HR Norepinephrine Bitartrate 8 mg in 250 mls @ 1.875 mls/hr 03/15/24 13:30 03/18/24 06:00 Levophed 8 Mg/D5w 250 Ml IV CONT 1 mcg/min .Q24H JASON 1.88 mls/hr Titration Protocol 1 MCG/MIN Cefepime HCl 2 gm in 50 mls @ 100 mls/hr 03/17/24 09:00 03/18/24 08:21 Maxipime 2 Gm/Ns 50 Ml IVPB 100 mls/hr Q12H JASON Administration Insulin Aspart 3 - 6 units 03/15/24 17:00 03/18/24 12:52 Insulin Aspart (*Bkc) 100 Units/Ml SUB-Q Not Given Q4HR JASON Protocol Insulin Glargine 55 units 03/15/24 09:00 03/16/24 10:44 Insulin Glargine (*Bkc) 100 Units/Ml SUB-Q 55 units DAILY JASON Administration Labetalol HCl 20 mg 03/08/24 10:06 03/08/24 16:48 Labetalol Hcl Inj 100 Mg/20 Ml Vial IV PUSH 20 mg Q4H PRN Administration SBP > 160 and HR> 60 -1st choice Metoclopramide HCl 10 mg 03/16/24 18:00 03/18/24 11:58 Metoclopramide Hcl Inj 10 Mg/2 Ml Vial IV PUSH 10 mg Q6HR JASON Administration Multi-Ingred Cream/Lotion/Oil/Oint 1 applic 03/15/24 09:00 03/18/24 08:29 Mineral Oil/White Petrolatum Ointment EACH EYE 1 applic Q12HR JASON Administration Pantoprazole Sodium 40 mg 03/02/24 09:00 03/18/24 08:23 Pantoprazole Sodium Iv 40 Mg Vial IV PUSH 40 mg Q12HR JASON Administration Sodium Chloride 10 ml 02/29/24 06:00 03/18/24 05:16 Central Line Flush IV PUSH 10 ml Q8HR JASON Administration Sodium Chloride 20 ml 02/28/24 23:37 Central Line Flush IV PUSH PRN PRN after blood draws Radiology Results: ITS Impressions Lower Extremity CTA 02/28/24 14:54 IMPRESSION: 1. 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 2. Moderate stenosis of right popliteal artery. 3. Osteomyelitis involving first proximal and distal phalanges and head of first metatarsal. Head CT 02/29/24 05:55 Impression: No intracranial hemorrhage, mass, or acute infarct. Stable chronic encephalomalacia in the high left parietal lobe. Atrophy and chronic white matter changes, as above. Chest/Abdomen/Pelvis CTA 02/29/24 06:02 Impression: Extensive right upper lobe consolidation and more mild right middle lobe consolidation, consistent with pneumonia. Consider aspiration pneumonia. Moderate to large right pleural effusion with complete atelectasis of the right lower lobe. Moderate left pleural effusion with minimal left basilar atelectasis. Small pericardial effusion. No definite acute abnormality in the abdomen or pelvis. Chronic compression fractures, as above. Renal Ultrasound 03/03/24 15:45 IMPRESSION: 1. Normal kidneys without hydronephrosis. 2. Small amount of ascites in the abdomen and pelvis. Venous Doppler Study 03/11/24 13:58 IMPRESSION: 1. Patent bilateral upper extremity veins. No evidence of venous thrombosis. Abdomen Ultrasound 03/13/24 16:52 IMPRESSION: 1. No etiology for abnormal liver function tests. 2. Normal hepatic veins and main portal vein. Right and left portal veins and proper hepatic artery not evaluated. 3. Right pleural effusion. Vascular Ultrasound 03/13/24 16:52 IMPRESSION: 1. No etiology for abnormal liver function tests. 2. Normal hepatic veins and main portal vein. Right and left portal veins and proper hepatic artery not evaluated. 3. Right pleural effusion. Abdomen X-Ray 03/16/24 19:53 IMPRESSION: Orogastric tube in satisfactory position in the stomach Chest/Abdomen/Pelvis CT 03/16/24 21:51 IMPRESSION: Anasarca Large pleural effusions with prominent compressive atelectasis of the lower lobes especially, dependent atelectasis of the middle and upper lobes Heart size. Prominent coronary artery atherosclerotic calcifications Minimal pericardial effusion Prominent diffuse thickening of urinary bladder wall suggesting cystitis area Ha catheter in bladder lumen Very prominent amount of fluid and large fluid level within the stomach despite presence of NG tube T11 and L1 moderate anterior wedge compression fractures, likely chronic Thoracentesis Ultrasound 03/18/24 10:27 IMPRESSION: 1. Successful ultrasound-guided thoracentesis yielding 550 mL of doris-colored fluid. Chest X-Ray 03/18/24 10:35 IMPRESSION: 1. Stable small right pleural effusion. 2. Airspace opacities at the lung bases with improvement on the left, consistent with atelectasis versus pneumonia. Labs Labs: Laboratory Results - last 24 hr 03/17/24 03/17/24 03/18/24 18:17 20:58 00:22 WBC RBC Hgb Hct MCV MCH MCHC RDW Plt Count MPV PT INR Puncture Site ABG pH ABG pCO2 ABG pO2 ABG PO2/FiO2 Ratio ABG HCO3 ABG O2 Saturation ABG O2 Content ABG Base Excess A-a Gradient Oxyhemoglobin Carboxyhemoglobin Methemoglobin Reduced Hemoglobin Total Hemoglobin O2 Delivery Device O2 Liters/Min Minute Volume Vent Rate Vent Mode FiO2 Tidal Volume PEEP Peak Inspir Pressure Pressure Support Sodium Potassium Chloride Carbon Dioxide Anion Gap BUN Creatinine Estim Creat Clear Calc Estimated GFR Glucose POC Capillary Glucose 130 H 160 H 157 H Calcium Magnesium Total Bilirubin AST ALT Alkaline Phosphatase Total Protein Albumin 03/18/24 03/18/24 03/18/24 05:05 05:06 08:28 WBC 11.7 H RBC 2.80 L Hgb 7.7 L Hct 26.0 L MCV 92.9 MCH 27.5 MCHC 29.6 L RDW 17.7 H Plt Count 249 MPV 10.7 H PT 17.8 H INR 1.4 Puncture Site Right brachial ABG pH 7.446 ABG pCO2 42.3 ABG pO2 92.7 ABG PO2/FiO2 Ratio 3.09 ABG HCO3 28.5 H ABG O2 Saturation 97.3 ABG O2 Content 11.0 L ABG Base Excess 4.0 A-a Gradient 71.5 Oxyhemoglobin 95.3 Carboxyhemoglobin 1.8 Methemoglobin 0.1 Reduced Hemoglobin 2.8 Total Hemoglobin 8.1 L O2 Delivery Device Ventilator O2 Liters/Min Not Reportable Minute Volume Not Reportable Vent Rate 16 Vent Mode Cmv FiO2 30 Tidal Volume 380 PEEP 5 Peak Inspir Pressure Not Reportable Pressure Support Not Reportable Sodium 145 Potassium 4.0 Chloride 110 H Carbon Dioxide 30 Anion Gap 5 BUN 34 H Creatinine 0.80 Estim Creat Clear Calc 90 Estimated GFR > 60 Glucose 165 H POC Capillary Glucose 160 H Calcium 7.7 L Magnesium 2.6 H Total Bilirubin 0.7 AST 33 ALT 120 H Alkaline Phosphatase 247 H Total Protein 6.0 L Albumin 2.5 L 03/18/24 11:57 WBC RBC Hgb Hct MCV MCH MCHC RDW Plt Count MPV PT INR Puncture Site ABG pH ABG pCO2 ABG pO2 ABG PO2/FiO2 Ratio ABG HCO3 ABG O2 Saturation ABG O2 Content ABG Base Excess A-a Gradient Oxyhemoglobin Carboxyhemoglobin Methemoglobin Reduced Hemoglobin Total Hemoglobin O2 Delivery Device O2 Liters/Min Minute Volume Vent Rate Vent Mode FiO2 Tidal Volume PEEP Peak Inspir Pressure Pressure Support Sodium Potassium Chloride Carbon Dioxide Anion Gap BUN Creatinine Estim Creat Clear Calc Estimated GFR Glucose POC Capillary Glucose 179 H Calcium Magnesium Total Bilirubin AST ALT Alkaline Phosphatase Total Protein Albumin
[2024-03-18 16:04] LABS: Glucose Point of Care 164 mg/dl (65-105)
--- NOTE | 2024-03-18 17:03 | P.PNIM_ITS ---
Progress Note: A&P Assessment and Plan (1) Acute respiratory failure with hypoxia: Code(s): J96.01 - Acute respiratory failure with hypoxia Status: Acute Assessment and Plan: Acute respiratory failure likely related to cardiac arrest, aspiration pneumonia, NSTEMI, hypoxia, septic shock Worsening likely secondary to ARDS versus pulmonary edema Intubated 02/27 02/28 Chest CTA: Extensive right upper lobe consolidation and more mild right middle lobe consolidation, consistent with pneumonia. Consider aspiration pneumonia.Moderate to large right pleural effusion with complete atelectasis of the right lower lobe. Moderate left pleural effusion with minimal left basilar atelectasis. Small pericardial effusion. No definite acute abnormality in the abdomen or pelvis. Chronic compression fractures, as above . -03/07 right thoracentesis with 1 L fluid removed -03/08 left-sided thoracentesis 550 mL -03/11: patient was in pressure support ventilation 02/18, with decrease tidal volumes in the upper 200s. place patient back on CMV, I have asked the bedside RN to decrease the Precedex infusion once patient is more awake will place back on spontaneous breathing trials 03/12: Place patient on SBT 04/17, low tidal volumes, low respiratory rate. Patient had replaced back on CMV mode of ventilation. -even on ASV patient is breathing only 7-8 times a minute 03/13: Off Precedex infusion overnight, placed patient on pressure support ventilation 04/17, initially did well but not significantly tachycardic and tachypneic and in respiratory distress, patient was placed back on CMV mode of ventilation and low-dose was 03/14 8/5 PSV SBT done for more than 1 hour. RSBI, ABG and Vitals acceptable. Pt awake and following commands. Patient was extubated. Initially patient did well and was on nasal cannula and was able to communicate. Over 12 hours patient became more hypoxic with increased respiratory distress and tachypnea. I spoke to patient post extubation and was agreeable to re-intubation if needed and stated that 'he is not ready to ' and 'do what ever it takes'. He was re intubated at night. I also mentioned to him that he may need tracheostomy and PEG tube placement if he gets we intubated and is not weanable. He told me 'to proceed with it if needed'. Solu-Medrol IV given for airway edema and will be continued for 24 hours -completed course of Solu-Medrol -continue bronchodilators -on Precedex and fentanyl -chest x-ray and ABG reviewed -CT scan shows large pleural effusions bilaterally. I will request IR for thoracentesis.. Patient is on minimal ventilator setting but has failed trials initially multiple times and then once extubated he was reintubated within 12 hours. I will treat try again after thoracentesis to see patient is weanable from the vent otherwise will proceed with trach and PEG as patient has been on ventilator for more than 2 weeks. 03/17 right thoracentesis 1 L fluid was removed 03/18 left thoracentesis scheduled for today. Will also continue diuretics. (2) Elevated LFTs: Code(s): R79.89 - Other specified abnormal findings of blood chemistry Status: Acute Assessment and Plan: 03/13: Significant elevation in LFTs, AST 2280, ALT 988, alk-phos 722 -patient has been hemodynamically stable, no hypotension noted in the last 24-48 hours -statin discontinued. Hold Tylenol -no tenderness in the right upper, lower quadrant or epigastric region on exam -negative vital hepatitis panel, right upper quadrant ultrasound with Doppler negative for hepatic or portal vein thrombosis -patient evaluated by GI -levels improving. Monitor (3) Cardiac arrest with pulseless electrical activity: Code(s): I46.9 - Cardiac arrest, cause unspecified Status: Acute Assessment and Plan: Cardiac arrest, secondary to unknown etiology. Possible aspiration pneumonia, NSTEMI, hypoxia, septic shock, infection -see code blue sheet for the details -patient currently intubated, vasopressors for blood pressure support have been weaned off -appreciate cardiology following the patient 02/29/2024 echocardiogram Summary 1. Technically difficult study with limited views. 2. Left ventricular chamber dimension is normal. 3. Left ventricular systolic function is mildly reduced, estimated at 45-50%. The apex appears to be hypokinetic. 4. There is mildly increased left ventricular wall thickness. 5. The left ventricular diastolic function is grade I diastolic dysfunction. 6. Right ventricular systolic function is normal. 7. Left atrial chamber dimension is moderately enlarged. 8. There is mild to moderate tricuspid valve regurgitation. 9. There is small anterior pericardial effusion. (4) Septic shock: Code(s): A41.9 - Sepsis, unspecified organism; R65.21 - Severe sepsis with septic shock Status: Acute Assessment and Plan: Resolved Patient in shock, likely related to the gangrene, aspiration pneumonia, status post cardiac arrest 02/28/2024: Blood cultures have been obtained and negative Off vasopressors and IV fluids Status post 10 days of antibiotics 03/16 low-grade fever increase in WBC CT scan as above, repeat blood cultures and sputum pending UA suggestive of UTI. Urine cultures pending. Ha has been changed. Continue cefepime (5) NSTEMI (non-ST elevated myocardial infarction): Code(s): I21.4 - Non-ST elevation (NSTEMI) myocardial infarction Status: Acute Assessment and Plan: Increasing troponins, -EKG showed sinus rhythm with T-wave changes in V1 to V5 -appreciate cardiology evaluation and recommendation -Continue aspirin and high-dose a statin -will hold Brilinta. Resumption per General surgery - beta-brayden, losartan are on hold due to soft blood pressure -03/02 heparin infusion was discontinued after 48 hours for NSTEMI by cardiology (6) Gangrene of right foot: Code(s): I96 - Gangrene, not elsewhere classified Status: Acute Assessment and Plan: CTA showed peripheral arterial disease with total occlusion of the right anterior and posterior tibial arteries and right peroneal artery with distal reconstitution of peroneal artery. This extensive gangrene of the right foot with gas seen on CT of the foot. General surgery spoke to the patient in the ER on the day of admission on 02/27 patient at that time agreed for below-knee amputation. Plan was to do a below- knee amputation on 02/29/2024 but patient had a cardiac arrest that night secondary to sepsis. Surgery at that time was deferred. Patient now is intubated sedated and unable to sign his consent.. Patient has no family and for many years at the retirement has had no visitor. He has 1 son which no one has been able to get hold off right several attempts. Considering patient has gangrene of the foot with no vascular supply leading to sepsis and if untreatable lead to his , Dr. Johns will proceed with amputation today, 03/05/2024. Dr. Collins and Dr. Johns has signed 2 physician consent considering patient's clearly expressed wishes prior to cardiac arrest at the time of admission, his current situation and inability to sign the consent form by himself at this time. 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 -complete 5 days of clindamycin 03/13: Discussed with surgery, there is flexion contractures of his amputation which may hinder in him getting prosthetics, patient may require above knee amputation (7) Osteomyelitis of toe of right foot: Code(s): M86.9 - Osteomyelitis, unspecified Status: Chronic Assessment and Plan: As above (8) Peripheral vascular disease: Code(s): I73.9 - Peripheral vascular disease, unspecified Status: Chronic Assessment and Plan: Patient has history of peripheral vascular disease, coronary artery disease -started on aspirin, patient will require Brilinta since he had a STEMI in 2020 but currently holding Brilinta due to surgery and bleeding (9) Type 2 diabetes mellitus: Qualifiers: 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 complication status: with other specified complication 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 supervisor intermediates insulin use: with [facility] use Qualified Code(s): E11.69 - Type 2 diabetes mellitus with other specified complication; Z79.4 - terminologist (current) use of insulin Code(s): E11.9 - Type 2 diabetes mellitus without complications Status: Acute Assessment and Plan: Currently on sliding scale insulin, Accu-Cheks Hemoglobin A1c this admission is 8.2 Lantus is on hold (10) Chronic obstructive pulmonary disease: Code(s): J44.9 - Chronic obstructive pulmonary disease, unspecified Status: Chronic Assessment and Plan: Continue DuoNebs -continue Symbicort (11) Electrolyte abnormality: Code(s): E87.8 - Other disorders of electrolyte and fluid balance, not elsewhere classified Status: Acute Assessment and Plan: Hypernatremia, improved with free water flush (12) Ileus: Code(s): K56.7 - Ileus, unspecified Status: Acute Assessment and Plan: CT scan shows significant amount of tube feeds collected in the stomach. Patient also had high residuals. Patient has already been on Reglan. Bowel sounds are present but decreased. Tube feeds currently on hold. Will start at a low rate after the thoracentesis Subjective Date/time seen: 03/18/24 17:03 Interval history: Continues to be intubated and on vasopressors. Review of Systems Review of Systems: 12 systems were reviewed and are negativ e except for as per HPI. ROS unobtainable: Yes unobtainable due to endotracheal tube, unobtainable due to medical condition and unobtainable due to mental status Exam Narrative: General: Patient intubated and sedated, in no acute distress HEENT:, pupils are equal and reactive from a sclera is clear Neck:? supple Respiratory:? Coarse breath sounds bilaterally, decreased at bases, adequate air entry, no wheezing Cardiac:? S1-S2 normal, regular rate and rhythm Abdomen:? Soft, nontender, nondistended, bowel sounds are decreased but present Extremities:? Right BKA stump under the dressing. Left dorsalis pedis is dopplerable Neuro:? Patient is intubated, on Precedex and fentanyl infusion opens his eyes on stimulation but does not follows simple commands Skin:? Patient has maceration of his perianal area, pressure ulcer on his buttocks. Psych:? Unable to assess at this time Objective Data Vital Signs Vital Signs: Vital Signs - 24 hr 03/17/24 17:32 03/17/24 18:00 03/17/24 18:00 Temperature 98.0 F Pulse Rate 72 70 70 Respiratory Rate 16 Blood Pressure 86/51 L 95/56 L Pulse Oximetry 97 Oxygen Delivery Fraction of Inspired Oxygen 03/17/24 18:11 03/17/24 18:12 03/17/24 18:12 Temperature Pulse Rate 76 82 80 Respiratory Rate 18 16 Blood Pressure 95/56 L Pulse Oximetry Oxygen Delivery Fraction of Inspired Oxygen 03/17/24 18:18 03/17/24 18:18 03/17/24 19:27 Temperature Pulse Rate 72 72 81 Respiratory Rate 16 Blood Pressure 119/67 119/67 Pulse Oximetry Oxygen Delivery Fraction of Inspired Oxygen 03/17/24 19:44 03/17/24 19:44 03/17/24 19:46 Temperature Pulse Rate 75 75 73 Respiratory Rate 18 18 Blood Pressure 87/49 L Pulse Oximetry Oxygen Delivery Fraction of Inspired Oxygen 03/17/24 20:00 03/17/24 20:00 03/17/24 20:23 Temperature Pulse Rate 76 75 Respiratory Rate 18 16 Blood Pressure Pulse Oximetry Oxygen Delivery Fraction of Inspired Oxygen 30 03/17/24 20:00 03/17/24 20:00 03/17/24 20:00 Temperature 98.2 F Pulse Rate 75 76 74 Respiratory Rate 16 16 Blood Pressure 128/71 128/71 Pulse Oximetry 96 96 Oxygen Delivery Mechanical Ventilation Fraction of Inspired Oxygen 30 03/17/24 20:27 03/17/24 20:32 03/17/24 20:45 Temperature Pulse Rate 77 75 76 Respiratory Rate 15 Blood Pressure 125/69 Pulse Oximetry 96 Oxygen Delivery Mechanical Ventilation Fraction of Inspired Oxygen 30 03/17/24 20:00 03/17/24 20:42 03/17/24 21:23 Temperature Pulse Rate 81 77 78 Respiratory Rate 16 Blood Pressure 115/64 Pulse Oximetry Oxygen Delivery Fraction of Inspired Oxygen 03/17/24 22:00 03/17/24 22:00 03/17/24 22:00 Temperature 98.2 F Pulse Rate 74 74 73 Respiratory Rate 16 16 Blood Pressure 102/59 L Pulse Oximetry 96 Oxygen Delivery Fraction of Inspired Oxygen 03/17/24 22:00 03/17/24 22:00 03/17/24 23:37 Temperature Pulse Rate 73 73 76 Respiratory Rate 16 19 Blood Pressure 102/59 L Pulse Oximetry Oxygen Delivery Fraction of Inspired Oxygen 03/17/24 23:37 03/17/24 23:45 03/17/24 23:45 Temperature Pulse Rate 76 71 Respiratory Rate 19 16 Blood Pressure Pulse Oximetry 97 Oxygen Delivery Mechanical Ventilation Fraction of Inspired Oxygen 30 30 03/17/24 23:45 03/18/24 00:00 03/18/24 00:00 Temperature 98.4 F Pulse Rate 72 72 71 Respiratory Rate 16 Blood Pressure 108/61 Pulse Oximetry 98 98 Oxygen Delivery Mechanical Ventilation Fraction of Inspired Oxygen 30 03/18/24 01:07 03/18/24 01:07 03/18/24 02:00 Temperature Pulse Rate 70 70 73 Respiratory Rate 16 16 17 Blood Pressure Pulse Oximetry Oxygen Delivery Fraction of Inspired Oxygen 03/18/24 02:00 03/18/24 02:00 03/18/24 02:00 Temperature Pulse Rate 73 72 72 Respiratory Rate 16 Blood Pressure 105/63 Pulse Oximetry Oxygen Delivery Fraction of Inspired Oxygen 03/18/24 02:00 03/18/24 03:06 03/18/24 03:12 Temperature 98.7 F Pulse Rate 71 71 70 Respiratory Rate 17 16 Blood Pressure 105/63 Pulse Oximetry 98 97 Oxygen Delivery Mechanical Ventilation Fraction of Inspired Oxygen 30 03/18/24 03:53 03/18/24 03:55 03/18/24 04:00 Temperature Pulse Rate 79 79 Respiratory Rate 17 16 Blood Pressure Pulse Oximetry 97 Oxygen Delivery Mechanical Ventilation Fraction of Inspired Oxygen 30 30 03/18/24 04:00 03/18/24 04:00 03/18/24 04:00 Temperature 98.4 F Pulse Rate 79 79 78 Respiratory Rate 17 17 Blood Pressure 115/66 115/66 Pulse Oximetry 97 Oxygen Delivery Fraction of Inspired Oxygen 03/18/24 04:00 03/18/24 05:05 03/18/24 05:16 Temperature Pulse Rate 77 72 74 Respiratory Rate 16 Blood Pressure Pulse Oximetry 97 Oxygen Delivery Mechanical Ventilation Fraction of Inspired Oxygen 30 03/18/24 05:16 03/18/24 05:30 03/18/24 06:00 Temperature Pulse Rate 74 72 71 Respiratory Rate 16 16 16 Blood Pressure Pulse Oximetry Oxygen Delivery Fraction of Inspired Oxygen 03/18/24 06:00 03/18/24 06:00 03/18/24 06:00 Temperature Pulse Rate 71 72 70 Respiratory Rate 16 Blood Pressure 98/58 L Pulse Oximetry Oxygen Delivery Fraction of Inspired Oxygen 03/18/24 06:00 03/18/24 09:06 03/18/24 09:06 Temperature 98.1 F Pulse Rate 70 71 71 Respiratory Rate 16 17 Blood Pressure 98/58 L Pulse Oximetry 97 96 Oxygen Delivery Mechanical Ventilation Fraction of Inspired Oxygen 30 03/18/24 09:33 03/18/24 08:00 03/18/24 08:00 Temperature 98.3 F Pulse Rate 80 68 68 Respiratory Rate 16 16 Blood Pressure 92/56 L Pulse Oximetry 97 Oxygen Delivery Fraction of Inspired Oxygen 03/18/24 08:00 03/18/24 10:00 03/18/24 10:00 Temperature 98.4 F Pulse Rate 80 80 Respiratory Rate 19 Blood Pressure 96/55 L Pulse Oximetry 96 Oxygen Delivery Fraction of Inspired Oxygen 30 03/18/24 08:00 03/18/24 11:00 03/18/24 08:00 Temperature Pulse Rate 68 80 68 Respiratory Rate 16 16 Blood Pressure Pulse Oximetry 97 96 Oxygen Delivery Mechanical Ventilation Mechanical Ventilation Fraction of Inspired Oxygen 30 30 03/18/24 10:00 03/18/24 11:50 03/18/24 11:50 Temperature Pulse Rate 80 73 73 Respiratory Rate 19 14 14 Blood Pressure Pulse Oximetry Oxygen Delivery Fraction of Inspired Oxygen 03/18/24 11:00 03/18/24 10:00 03/18/24 12:00 Temperature Pulse Rate 81 80 86 Respiratory Rate 15 16 20 Blood Pressure Pulse Oximetry Oxygen Delivery Fraction of Inspired Oxygen 03/18/24 08:00 03/18/24 13:00 03/18/24 08:00 Temperature Pulse Rate 68 81 68 Respiratory Rate 16 17 Blood Pressure 92/56 L Pulse Oximetry Oxygen Delivery Fraction of Inspired Oxygen 03/18/24 08:30 03/18/24 10:30 03/18/24 12:00 Temperature Pulse Rate 73 77 86 Respiratory Rate Blood Pressure 97/62 L 106/64 112/77 Pulse Oximetry Oxygen Delivery Fraction of Inspired Oxygen 03/18/24 12:00 03/18/24 12:00 03/18/24 12:00 Temperature 98.3 F Pulse Rate 86 86 68 Respiratory Rate 20 16 Blood Pressure 92/56 L Pulse Oximetry 97 97 Oxygen Delivery Mechanical Ventilation Fraction of Inspired Oxygen 30 03/18/24 13:58 03/18/24 14:00 03/18/24 14:00 Temperature 98.6 F Pulse Rate 89 90 90 Respiratory Rate 16 17 Blood Pressure 119/55 L Pulse Oximetry 96 Oxygen Delivery Fraction of Inspired Oxygen 03/18/24 14:00 03/18/24 15:00 03/18/24 14:45 Temperature Pulse Rate 90 85 89 Respiratory Rate 16 17 Blood Pressure 119/55 L Pulse Oximetry Oxygen Delivery Fraction of Inspired Oxygen 03/18/24 13:30 03/18/24 15:15 03/18/24 13:50 Temperature Pulse Rate 89 80 74 Respiratory Rate 17 16 Blood Pressure Pulse Oximetry 96 Oxygen Delivery Mechanical Ventilation Fraction of Inspired Oxygen 30 03/18/24 13:50 03/18/24 16:00 03/18/24 16:00 Temperature Pulse Rate 74 86 Respiratory Rate 16 Blood Pressure Pulse Oximetry Oxygen Delivery Fraction of Inspired Oxygen 30 03/18/24 16:00 03/18/24 16:00 Temperature 98.7 F Pulse Rate 86 86 Respiratory Rate 16 16 Blood Pressure 108/60 Pulse Oximetry 95 95 Oxygen Delivery Mechanical Ventilation Fraction of Inspired Oxygen 30 Intake/Output Intake/Output: Intake & Output 03/16/24 03/16/24 03/17/24 03/18/24 00:59 23:59 23:59 23:59 Intake Total 877.7 682.8 Output Total 2200 975 Balance -1322.3 -292.2 Meds/Results Medications: Active Medications Generic Name Dose Route Start Last Admin Trade Name Freq PRN Reason Stop Dose Admin Acetaminophen 500 mg 03/08/24 10:18 03/13/24 09:24 Acetaminophen 500 Mg Tablet FEED TUBE 500 mg Q6H PRN Administration Pain Rated 1-3 Albuterol/Ipratropium 3 ml 02/29/24 02:00 03/18/24 13:33 Ipratropium 0.5 Mg/Albuterol Sulfate 2.5 Mg Ampul.Neb 3 Ml INHALATION 3 ml Q6HRT JASON Administration Alteplase, Recombinant 2 mg 03/06/24 09:45 03/06/24 13:10 Alteplase 2 Mg Vial (Cathflo) IV PUSH 2 mg ONCE PRN Administration Line Occlusion Aspirin 81 mg 03/09/24 08:00 03/18/24 08:22 Aspirin 81 Mg Chewable Tablet FEED TUBE 81 mg DAILY@0800 JASON Administration Dextrose 12.5 gm 02/28/24 19:23 Dextrose 50% 25 Gm/50 Ml Syringe IV PUSH PRN PRN Hypoglycemia Protocol Glucagon 1 mg 02/28/24 19:23 Glucagon For Inj 1 Mg Vial IM PRN PRN Hypoglycemia Protocol Glucose 15 gm 03/08/24 10:19 Glucose Oral Gel 15 Gm Of Glucse In 37.5 Gm Tube FEED TUBE PRN PRN Hypoglycemia Protocol Heparin Sodium (Porcine) 5,000 units 03/03/24 14:00 03/17/24 06:13 Heparin Sodium 5,000 Units/Ml Vial SUB-Q 5,000 units Q8HR JASON Administration Hydralazine HCl 20 mg 03/08/24 10:06 Hydralazine Hcl 20 Mg/Ml Vial IV PUSH Q4HR PRN Hypertension Dextrose 1,000 mls @ 100 mls/hr 02/28/24 19:23 Dextrose 5% 1,000 Ml IVPB PRN PRN Hypoglycemia Protocol Dexmedetomidine HCl 400 mcg in 100 mls @ 17.378 mls/hr 03/11/24 21:50 03/18/24 15:48 Precedex 400 Mcg/100 Ml IV CONT Not Given .Q5H46M JASON Protocol 0.7 MCG/KG/HR Fentanyl Citrate 2,500 mcg in 250 mls @ 2.5 mls/hr 03/14/24 23:20 03/18/24 15:47 Fentanyl 2,500 Mcg/Ns 250 Ml IV CONT Not Given .Q72H JASON Protocol 25 MCG/HR Norepinephrine Bitartrate 8 mg in 250 mls @ 0 mls/hr 03/15/24 13:30 03/18/24 15:48 Levophed 8 Mg/D5w 250 Ml IV CONT Not Given .Q0M JASON Protocol Cefepime HCl 2 gm in 50 mls @ 100 mls/hr 03/17/24 09:00 03/18/24 08:21 Maxipime 2 Gm/Ns 50 Ml IVPB 100 mls/hr Q12H JASON Administration Insulin Aspart 3 - 6 units 03/15/24 17:00 03/18/24 16:02 Insulin Aspart (*Bkc) 100 Units/Ml SUB-Q Not Given Q4HR JASON Protocol Insulin Glargine 55 units 03/15/24 09:00 03/16/24 10:44 Insulin Glargine (*Bkc) 100 Units/Ml SUB-Q 55 units DAILY JASON Administration Labetalol HCl 20 mg 03/08/24 10:06 03/08/24 16:48 Labetalol Hcl Inj 100 Mg/20 Ml Vial IV PUSH 20 mg Q4H PRN Administration SBP > 160 and HR> 60 -1st choice Metoclopramide HCl 10 mg 03/16/24 18:00 03/18/24 11:58 Metoclopramide Hcl Inj 10 Mg/2 Ml Vial IV PUSH 10 mg Q6HR JASON Administration Multi-Ingred Cream/Lotion/Oil/Oint 1 applic 03/15/24 09:00 03/18/24 08:29 Mineral Oil/White Petrolatum Ointment EACH EYE 1 applic Q12HR JASON Administration Pantoprazole Sodium 40 mg 03/02/24 09:00 03/18/24 08:23 Pantoprazole Sodium Iv 40 Mg Vial IV PUSH 40 mg Q12HR JASON Administration Sodium Chloride 10 ml 02/29/24 06:00 03/18/24 14:56 Central Line Flush IV PUSH 10 ml Q8HR JASON Administration Sodium Chloride 20 ml 02/28/24 23:37 Central Line Flush IV PUSH PRN PRN after blood draws Radiology Results: ITS Impressions Lower Extremity CTA 02/28/24 14:54 IMPRESSION: 1. 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 2. Moderate stenosis of right popliteal artery. 3. Osteomyelitis involving first proximal and distal phalanges and head of first metatarsal. Head CT 02/29/24 05:55 Impression: No intracranial hemorrhage, mass, or acute infarct. Stable chronic encephalomalacia in the high left parietal lobe. Atrophy and chronic white matter changes, as above. Chest/Abdomen/Pelvis CTA 02/29/24 06:02 Impression: Extensive right upper lobe consolidation and more mild right middle lobe consolidation, consistent with pneumonia. Consider aspiration pneumonia. Moderate to large right pleural effusion with complete atelectasis of the right lower lobe. Moderate left pleural effusion with minimal left basilar atelectasis. Small pericardial effusion. No definite acute abnormality in the abdomen or pelvis. Chronic compression fractures, as above. Renal Ultrasound 03/03/24 15:45 IMPRESSION: 1. Normal kidneys without hydronephrosis. 2. Small amount of ascites in the abdomen and pelvis. Venous Doppler Study 03/11/24 13:58 IMPRESSION: 1. Patent bilateral upper extremity veins. No evidence of venous thrombosis. Abdomen Ultrasound 03/13/24 16:52 IMPRESSION: 1. No etiology for abnormal liver function tests. 2. Normal hepatic veins and main portal vein. Right and left portal veins and proper hepatic artery not evaluated. 3. Right pleural effusion. Vascular Ultrasound 03/13/24 16:52 IMPRESSION: 1. No etiology for abnormal liver function tests. 2. Normal hepatic veins and main portal vein. Right and left portal veins and proper hepatic artery not evaluated. 3. Right pleural effusion. Abdomen X-Ray 03/16/24 19:53 IMPRESSION: Orogastric tube in satisfactory position in the stomach Chest/Abdomen/Pelvis CT 03/16/24 21:51 IMPRESSION: Anasarca Large pleural effusions with prominent compressive atelectasis of the lower lobes especially, dependent atelectasis of the middle and upper lobes Heart size. Prominent coronary artery atherosclerotic calcifications Minimal pericardial effusion Prominent diffuse thickening of urinary bladder wall suggesting cystitis area Ha catheter in bladder lumen Very prominent amount of fluid and large fluid level within the stomach despite presence of NG tube T11 and L1 moderate anterior wedge compression fractures, likely chronic Thoracentesis Ultrasound 03/18/24 10:27 IMPRESSION: 1. Successful ultrasound-guided thoracentesis yielding 550 mL of doris-colored fluid. Chest X-Ray 03/18/24 10:35 IMPRESSION: 1. Stable small right pleural effusion. 2. Airspace opacities at the lung bases with improvement on the left, consistent with atelectasis versus pneumonia. Labs Labs: Laboratory Results - last 24 hr 03/17/24 03/17/24 03/18/24 18:17 20:58 00:22 WBC RBC Hgb Hct MCV MCH MCHC RDW Plt Count MPV PT INR Puncture Site ABG pH ABG pCO2 ABG pO2 ABG PO2/FiO2 Ratio ABG HCO3 ABG O2 Saturation ABG O2 Content ABG Base Excess A-a Gradient Oxyhemoglobin Carboxyhemoglobin Methemoglobin Reduced Hemoglobin Total Hemoglobin O2 Delivery Device O2 Liters/Min Minute Volume Vent Rate Vent Mode FiO2 Tidal Volume PEEP Peak Inspir Pressure Pressure Support Sodium Potassium Chloride Carbon Dioxide Anion Gap BUN Creatinine Estim Creat Clear Calc Estimated GFR Glucose POC Capillary Glucose 130 H 160 H 157 H Calcium Magnesium Total Bilirubin AST ALT Alkaline Phosphatase Total Protein Albumin 03/18/24 03/18/24 03/18/24 05:05 05:06 08:28 WBC 11.7 H RBC 2.80 L Hgb 7.7 L Hct 26.0 L MCV 92.9 MCH 27.5 MCHC 29.6 L RDW 17.7 H Plt Count 249 MPV 10.7 H PT 17.8 H INR 1.4 Puncture Site Right brachial ABG pH 7.446 ABG pCO2 42.3 ABG pO2 92.7 ABG PO2/FiO2 Ratio 3.09 ABG HCO3 28.5 H ABG O2 Saturation 97.3 ABG O2 Content 11.0 L ABG Base Excess 4.0 A-a Gradient 71.5 Oxyhemoglobin 95.3 Carboxyhemoglobin 1.8 Methemoglobin 0.1 Reduced Hemoglobin 2.8 Total Hemoglobin 8.1 L O2 Delivery Device Ventilator O2 Liters/Min Not Reportable Minute Volume Not Reportable Vent Rate 16 Vent Mode Cmv FiO2 30 Tidal Volume 380 PEEP 5 Peak Inspir Pressure Not Reportable Pressure Support Not Reportable Sodium 145 Potassium 4.0 Chloride 110 H Carbon Dioxide 30 Anion Gap 5 BUN 34 H Creatinine 0.80 Estim Creat Clear Calc 90 Estimated GFR > 60 Glucose 165 H POC Capillary Glucose 160 H Calcium 7.7 L Magnesium 2.6 H Total Bilirubin 0.7 AST 33 ALT 120 H Alkaline Phosphatase 247 H Total Protein 6.0 L Albumin 2.5 L 03/18/24 03/18/24 11:57 16:01 WBC RBC Hgb Hct MCV MCH MCHC RDW Plt Count MPV PT INR Puncture Site ABG pH ABG pCO2 ABG pO2 ABG PO2/FiO2 Ratio ABG HCO3 ABG O2 Saturation ABG O2 Content ABG Base Excess A-a Gradient Oxyhemoglobin Carboxyhemoglobin Methemoglobin Reduced Hemoglobin Total Hemoglobin O2 Delivery Device O2 Liters/Min Minute Volume Vent Rate Vent Mode FiO2 Tidal Volume PEEP Peak Inspir Pressure Pressure Support Sodium Potassium Chloride Carbon Dioxide Anion Gap BUN Creatinine Estim Creat Clear Calc Estimated GFR Glucose POC Capillary Glucose 179 H 164 H Calcium Magnesium Total Bilirubin AST ALT Alkaline Phosphatase Total Protein Albumin Quality VTE Prophylaxis VTE prophylaxis: pharmacologic ordered Hospitalist MIPS Advance Care Plan I have confirmed that the patient's Advanced Care Plan is present, code status is documented, or surrogate decision maker is listed in patient medical record.: Yes Medication Reconciliation I have utilized all available resources to obtain, update and review the patients current medications (includes all prescriptions, OTC, herbals, cannabis, and nutritional supplements).: Yes
[2024-03-18 19:24] LABS: Glucose Point of Care 170 mg/dl (65-105)
[2024-03-19] VITALS (41 sets, daily range): BP systolic 99–137; BP diastolic 49–85; PULSE 71–137; RESP 15–26; TEMP 36.7–37.7; O2SAT 88–99
[2024-03-19 00:02] LABS: Glucose Point of Care 187 mg/dl (65-105)
[2024-03-19] MEDS: IPRATROPIUM 0.5 MG/ALBUTEROL SULFATE 2.5 MG AMPUL.NEB 3 ML INHALATION ×4 (02:16→19:58)
[2024-03-19] MEDS: dexmedeTOMIDine 400 MCG/100 ML 400 MCG/100 ML BAG 17.38 MCG IV CONT (03:37)
[2024-03-19] MEDS: CENTRAL LINE FLUSH 10 ML IV PUSH ×3 (05:09→20:01)
[2024-03-19] MEDS: METOCLOPRAMIDE HCL INJ 10 MG/2 ML VIAL IV PUSH (05:09)
[2024-03-19 07:42] LABS: Hematocrit 26.1 % (42.0-52.0); Hemoglobin 7.5 g/dL (14.0-18.0); Mean Corpuscular HGB Conc 28.7 g/dl (32-36); Mean Corpuscular Hemoglobin 26.9 pg (26-34); Mean Corpuscular Volume 93.5 fl (80-100); Mean Platelet Volume 10.4 fl (7.4-10.4); Platelet Count Result 235 k/mm3 (150-375); Red Blood Count 2.79 M/mm3 (4.6-6.20); Red Cell Distribution Width 17.6 % (11.5-14.5); White Blood Count 10.8 K/mm3 (4.5-10.0)
[2024-03-19] MEDS: INSULIN ASPART (*BKC) 100 UNITS/ML SUB-Q (07:49)
[2024-03-19] MEDS: PANTOPRAZOLE SODIUM IV 40 MG VIAL IV PUSH ×2 (07:49→20:01)
[2024-03-19] MEDS: MINERAL OIL/WHITE PETROLATUM OINTMENT 1 APPLIC EACH EYE (07:49)
[2024-03-19] MEDS: ASPIRIN 81 MG CHEWABLE TABLET FEED TUBE (07:49)
--- NOTE | 2024-03-19 07:49 | PC.NURSE ---
Sedation paused for sedation vacation/daily wake-up
[2024-03-19 07:55] LABS: INR 1.5
[2024-03-19 07:59] LABS: Glucose Point of Care 219 mg/dl (65-105)
[2024-03-19] MEDS: CEFEPIME 2 GM/NS 50 ML 2 GM/50 ML BAG IVPB ×2 (08:03→20:01)
--- NOTE | 2024-03-19 08:07 | PC.NURSE ---
Precedex resumed at a decreased rate per MD order
--- NOTE | 2024-03-19 08:20 | WPDINTPN ---
Progress Note: A&P Assessment and Plan (1) Acute respiratory failure with hypoxia: Code(s): J96.01 - Acute respiratory failure with hypoxia Status: Acute Assessment and Plan: Acute respiratory failure likely related to cardiac arrest, aspiration pneumonia, NSTEMI, hypoxia, septic shock Worsening likely secondary to ARDS versus pulmonary edema Intubated 02/27 02/28 Chest CTA: Extensive right upper lobe consolidation and more mild right middle lobe consolidation, consistent with pneumonia. Consider aspiration pneumonia.Moderate to large right pleural effusion with complete atelectasis of the right lower lobe. Moderate left pleural effusion with minimal left basilar atelectasis. Small pericardial effusion. No definite acute abnormality in the abdomen or pelvis. Chronic compression fractures, as above . -03/07 right thoracentesis with 1 L fluid removed -03/08 left-sided thoracentesis 550 mL -03/11: patient was in pressure support ventilation 02/18, with decrease tidal volumes in the upper 200s. place patient back on CMV, I have asked the bedside RN to decrease the Precedex infusion once patient is more awake will place back on spontaneous breathing trials 03/12: Place patient on SBT 04/17, low tidal volumes, low respiratory rate. Patient had replaced back on CMV mode of ventilation. -even on ASV patient is breathing only 7-8 times a minute 03/13: Off Precedex infusion overnight, placed patient on pressure support ventilation 04/17, initially did well but not significantly tachycardic and tachypneic and in respiratory distress, patient was placed back on CMV mode of ventilation and low-dose was 03/14 8/5 PSV SBT done for more than 1 hour. RSBI, ABG and Vitals acceptable. Pt awake and following commands. Patient was extubated. Initially patient did well and was on nasal cannula and was able to communicate. Over 12 hours patient became more hypoxic with increased respiratory distress and tachypnea. I spoke to patient post extubation and was agreeable to re-intubation if needed and stated that 'he is not ready to ' and 'do what ever it takes'. He was re intubated at night. I also mentioned to him that he may need tracheostomy and PEG tube placement if he gets we intubated and is not weanable. He told me 'to proceed with it if needed'. Solu-Medrol IV given for airway edema and will be continued for 24 hours -completed course of Solu-Medrol -continue bronchodilators -on Precedex and fentanyl -chest x-ray and ABG reviewed -CT scan shows large pleural effusions bilaterally. I will request IR for thoracentesis.. Patient is on minimal ventilator setting but has failed trials initially multiple times and then once extubated he was reintubated within 12 hours. I will treat try again after thoracentesis to see patient is weanable from the vent otherwise will proceed with trach and PEG as patient has been on ventilator for more than 2 weeks. 03/17 right thoracentesis 1 L fluid was removed 03/18 left thoracentesis 550 mL fluid was removed Will also continue diuretics. 03/19 sedation holiday and weaning trial. Continue Lasix. (2) Elevated LFTs: Code(s): R79.89 - Other specified abnormal findings of blood chemistry Status: Acute Assessment and Plan: 03/13: Significant elevation in LFTs, AST 2280, ALT 988, alk-phos 722 -patient has been hemodynamically stable, no hypotension noted in the last 24-48 hours -statin discontinued. Hold Tylenol -no tenderness in the right upper, lower quadrant or epigastric region on exam -negative vital hepatitis panel, right upper quadrant ultrasound with Doppler negative for hepatic or portal vein thrombosis -patient evaluated by GI -levels improving. Monitor (3) Cardiac arrest with pulseless electrical activity: Code(s): I46.9 - Cardiac arrest, cause unspecified Status: Acute Assessment and Plan: Cardiac arrest, secondary to unknown etiology. Possible aspiration pneumonia, NSTEMI, hypoxia, septic shock, infection -see code blue sheet for the details -patient currently intubated, vasopressors for blood pressure support have been weaned off -appreciate cardiology following the patient 02/29/2024 echocardiogram Summary 1. Technically difficult study with limited views. 2. Left ventricular chamber dimension is normal. 3. Left ventricular systolic function is mildly reduced, estimated at 45-50%. The apex appears to be hypokinetic. 4. There is mildly increased left ventricular wall thickness. 5. The left ventricular diastolic function is grade I diastolic dysfunction. 6. Right ventricular systolic function is normal. 7. Left atrial chamber dimension is moderately enlarged. 8. There is mild to moderate tricuspid valve regurgitation. 9. There is small anterior pericardial effusion. (4) Septic shock: Code(s): A41.9 - Sepsis, unspecified organism; R65.21 - Severe sepsis with septic shock Status: Acute Assessment and Plan: Resolved Patient in shock, likely related to the gangrene, aspiration pneumonia, status post cardiac arrest 02/28/2024: Blood cultures have been obtained and negative Off vasopressors and IV fluids Status post 10 days of antibiotics 03/16 low-grade fever increase in WBC CT scan as above, repeat blood cultures and sputum pending UA suggestive of UTI. Urine cultures pending. Ha has been changed. Continue cefepime (5) NSTEMI (non-ST elevated myocardial infarction): Code(s): I21.4 - Non-ST elevation (NSTEMI) myocardial infarction Status: Acute Assessment and Plan: Increasing troponins, -EKG showed sinus rhythm with T-wave changes in V1 to V5 -appreciate cardiology evaluation and recommendation -Continue aspirin and high-dose a statin -will hold Brilinta. Resumption per General surgery - beta-brayden, losartan are on hold due to soft blood pressure -03/02 heparin infusion was discontinued after 48 hours for NSTEMI by cardiology (6) Gangrene of right foot: Code(s): I96 - Gangrene, not elsewhere classified Status: Acute Assessment and Plan: CTA showed peripheral arterial disease with total occlusion of the right anterior and posterior tibial arteries and right peroneal artery with distal reconstitution of peroneal artery. This extensive gangrene of the right foot with gas seen on CT of the foot. General surgery spoke to the patient in the ER on the day of admission on 02/27 patient at that time agreed for below-knee amputation. Plan was to do a below-knee amputation on 02/29/2024 but patient had a cardiac arrest that night secondary to sepsis. Surgery at that time was deferred. Patient now is intubated sedated and unable to sign his consent.. Patient has no family and for many years at the [place] has had no visitor. He has 1 son which no one has been able to get hold off right several attempts. Considering patient has gangrene of the foot with no vascular supply leading to sepsis and if untreatable lead to his , Dr. Johns will proceed with amputation today, 03/05/2024. Dr. Collins and Dr. Johns has signed 2 physician consent considering patient's clearly expressed wishes prior to cardiac arrest at the time of admission, his current situation and inability to sign the consent form by himself at this time. 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 -complete 5 days of clindamycin 03/13: Discussed with surgery, there is flexion contractures of his amputation which may hinder in him getting prosthetics, patient may require above knee amputation (7) Osteomyelitis of toe of right foot: Code(s): M86.9 - Osteomyelitis, unspecified Status: Chronic Assessment and Plan: As above (8) Peripheral vascular disease: Code(s): I73.9 - Peripheral vascular disease, unspecified Status: Chronic Assessment and Plan: Patient has history of peripheral vascular disease, coronary artery disease -started on aspirin, patient will require Brilinta since he had a STEMI in 2020 but currently holding Brilinta due to surgery and bleeding (9) Type 2 diabetes mellitus: Qualifiers: 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 complication status: with other specified complication 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 manager terminal insulin use: with manager terminal use Qualified Code(s): E11.69 - Type 2 diabetes mellitus with other specified complication; Z79.4 - terminal gauger (current) use of insulin Code(s): E11.9 - Type 2 diabetes mellitus without complications Status: Acute Assessment and Plan: Currently on sliding scale insulin, Accu-Cheks Hemoglobin A1c this admission is 8.2 Lantus is on hold (10) Chronic obstructive pulmonary disease: Code(s): J44.9 - Chronic obstructive pulmonary disease, unspecified Status: Chronic Assessment and Plan: Continue DuoNebs -continue Symbicort (11) Electrolyte abnormality: Code(s): E87.8 - Other disorders of electrolyte and fluid balance, not elsewhere classified Status: Acute Assessment and Plan: Hypernatremia, improved with free water flush (12) Ileus: Code(s): K56.7 - Ileus, unspecified Status: Acute Assessment and Plan: CT scan shows significant amount of tube feeds collected in the stomach. Patient also had high residuals. Patient has already been on Reglan. Bowel sounds are present but decreased. Tube feeds at low rate. Will advance if unable to extubate. Plan DVT prophylaxis: Heparin subQ Stress ulcer prophylaxis: Protonix Nutrition: Tube feeds o at 20 mL/hour Continue Reglan. Will hold tube feeds for weaning trial Code Status: Full code. 03/15 Patient has no family available. Patient was extubated on 03/14 and I spoke to patient post extubation. I mentioned possibility of him needing re-intubation and he was agreeable stating that he is not ready to at this time. He stated that do whatever needs to be done to keep me alive. I also mentioned to him that if he gets reintubated and is unable to be weaned he will need tracheostomy and PEG tube placement and he states that he is agreeable to do it if needed. He did mention that he has some nephews in area which can be contacted. housekeeping coordinator was provided that information. Critical Care Time Spent: 32 minutes Due to a high probability of clinically significant, life threatening deterioration, the patient required my highest level of preparedness to intervene emergently and I personally spent this critical care time directly and personally managing the patient. This critical care time included obtaining a history; examining the patient; pulse oximetry; ordering and review of studies; arranging urgent treatment with development of a management plan; evaluation of patient's response to treatment; frequent reassessment; and discussions with other providers. It was exclusive of separately billable procedures and treating other patients and teaching time. Please see Assessment and Plan section and the rest of the note for further information on patient assessment and treatment This dictation may have been done utilizing a voice recognition system. Attempts have been made to correct errors. However, there may be uncorrected grammatical, spelling, and recognitions errors present. Subjective Date/time seen: 03/19/24 Overnight events reviewed. Afebrile Continues to be on mechanical ventilation 30% FiO2 He had thoracentesis done on the left side and 550 mL fluid was removed Continues to be likely sedated with fentanyl and Precedex Other Vitals acceptable Follows commands. Awake Tube feeds at 20 mL/hour Interval history: Reason for consult: Status post PEA arrest, right foot gangrene with cellulitis, shock 02/27: Intubated 03/05:Right below-knee amputation with placement of posterior Ortho Glass splint 03/14: extubated and reintubated 03/17 right-sided thoracentesis and 1 L fluid was removed 03/18: Left thoracentesis and 550 mL fluid was removed Review of Systems Review of Systems: ROS unobtainable: Yes unobtainable due to endotracheal tube, unobtainable due to medical condition and unobtainable due to mental status Exam Narrative: General: Patient intubated and sedated, in no acute distress HEENT:, pupils are equal and reactive from a sclera is clear Neck:? supple Respiratory:? Coarse breath sounds bilaterally, decreased at bases, adequate air entry, no wheezing Cardiac:? S1-S2 normal, regular rate and rhythm Abdomen:? Soft, nontender, nondistended, bowel sounds are decreased but present Extremities:? Right BKA stump under the dressing. Left dorsalis pedis is dopplerable Neuro:? Patient is intubated, on Precedex and fentanyl infusion opens his eyes on stimulation and follows simple commands Skin:? Patient has maceration of his perianal area, pressure ulcer on his buttocks. Psych:? Unable to assess at this time Objective Data Vital Signs Vital Signs: Vital Signs - 24 hr 03/18/24 09:06 03/18/24 09:06 03/18/24 09:33 Temperature Pulse Rate 71 71 80 Respiratory Rate 17 16 Blood Pressure Pulse Oximetry 96 Oxygen Delivery Mechanical Ventilation Fraction of Inspired Oxygen 30 03/18/24 10:00 03/18/24 10:00 03/18/24 11:00 Temperature 36.9 C Pulse Rate 80 80 80 Respiratory Rate 19 Blood Pressure 96/55 L Pulse Oximetry 96 96 Oxygen Delivery Mechanical Ventilation Fraction of Inspired Oxygen 30 03/18/24 10:00 03/18/24 11:50 03/18/24 11:50 Temperature Pulse Rate 80 73 73 Respiratory Rate 19 14 14 Blood Pressure Pulse Oximetry Oxygen Delivery Fraction of Inspired Oxygen 03/18/24 11:00 03/18/24 10:00 03/18/24 12:00 Temperature Pulse Rate 81 80 86 Respiratory Rate 15 16 20 Blood Pressure Pulse Oximetry Oxygen Delivery Fraction of Inspired Oxygen 03/18/24 13:00 03/18/24 08:30 03/18/24 10:30 Temperature Pulse Rate 81 73 77 Respiratory Rate 17 Blood Pressure 97/62 L 106/64 Pulse Oximetry Oxygen Delivery Fraction of Inspired Oxygen 03/18/24 12:00 03/18/24 12:00 03/18/24 12:00 Temperature Pulse Rate 86 86 86 Respiratory Rate 20 Blood Pressure 112/77 Pulse Oximetry 97 Oxygen Delivery Mechanical Ventilation Fraction of Inspired Oxygen 30 03/18/24 12:00 03/18/24 13:58 03/18/24 14:00 Temperature 36.8 C Pulse Rate 68 89 90 Respiratory Rate 16 16 Blood Pressure 92/56 L Pulse Oximetry 97 Oxygen Delivery Fraction of Inspired Oxygen 03/18/24 14:00 03/18/24 14:00 03/18/24 15:00 Temperature 37.0 C Pulse Rate 90 90 85 Respiratory Rate 17 16 Blood Pressure 119/55 L 119/55 L Pulse Oximetry 96 Oxygen Delivery Fraction of Inspired Oxygen 03/18/24 14:45 03/18/24 13:30 03/18/24 15:15 Temperature Pulse Rate 89 89 80 Respiratory Rate 17 17 16 Blood Pressure Pulse Oximetry Oxygen Delivery Fraction of Inspired Oxygen 03/18/24 13:50 03/18/24 13:50 03/18/24 16:00 Temperature Pulse Rate 74 74 Respiratory Rate 16 Blood Pressure Pulse Oximetry 96 Oxygen Delivery Mechanical Ventilation Fraction of Inspired Oxygen 30 30 03/18/24 16:00 03/18/24 16:00 03/18/24 16:00 Temperature 37.1 C Pulse Rate 86 86 86 Respiratory Rate 16 16 Blood Pressure 108/60 Pulse Oximetry 95 95 Oxygen Delivery Mechanical Ventilation Fraction of Inspired Oxygen 30 03/18/24 17:00 03/18/24 17:06 03/18/24 17:13 Temperature Pulse Rate 87 87 83 Respiratory Rate 20 20 Blood Pressure Pulse Oximetry 93 Oxygen Delivery Mechanical Ventilation Fraction of Inspired Oxygen 30 03/18/24 17:00 03/18/24 16:00 03/18/24 18:22 Temperature Pulse Rate 103 H 86 73 Respiratory Rate 19 16 Blood Pressure 108/60 Pulse Oximetry Oxygen Delivery Fraction of Inspired Oxygen 03/18/24 18:23 03/18/24 18:00 03/18/24 18:00 Temperature Pulse Rate 73 75 75 Respiratory Rate 19 Blood Pressure 94/49 L Pulse Oximetry Oxygen Delivery Fraction of Inspired Oxygen 03/18/24 18:00 03/18/24 19:20 03/18/24 20:00 Temperature 37.3 C Pulse Rate 75 86 89 Respiratory Rate 16 18 Blood Pressure 94/49 L Pulse Oximetry 94 Oxygen Delivery Fraction of Inspired Oxygen 03/18/24 19:57 03/18/24 20:00 03/18/24 20:00 Temperature 37.4 C Pulse Rate 84 91 Respiratory Rate 16 Blood Pressure 116/55 L 116/55 L Pulse Oximetry 94 Oxygen Delivery Fraction of Inspired Oxygen 30 03/18/24 20:00 03/18/24 20:00 03/18/24 20:43 Temperature Pulse Rate 90 91 85 Respiratory Rate 18 18 17 Blood Pressure Pulse Oximetry Oxygen Delivery Fraction of Inspired Oxygen 03/18/24 20:44 03/18/24 20:00 03/18/24 22:00 Temperature Pulse Rate 85 85 91 Respiratory Rate 17 Blood Pressure Pulse Oximetry 97 95 Oxygen Delivery Mechanical Ventilation Mechanical Ventilation Fraction of Inspired Oxygen 30 30 03/18/24 22:00 03/18/24 22:00 03/18/24 22:00 Temperature 37.2 C Pulse Rate 92 92 91 Respiratory Rate 17 17 17 Blood Pressure 124/59 L Pulse Oximetry 94 Oxygen Delivery Fraction of Inspired Oxygen 03/18/24 22:00 03/18/24 22:30 03/18/24 22:37 Temperature Pulse Rate 91 86 86 Respiratory Rate 18 18 Blood Pressure 124/59 L Pulse Oximetry Oxygen Delivery Fraction of Inspired Oxygen 03/18/24 22:39 03/18/24 23:30 03/18/24 23:31 Temperature Pulse Rate 85 80 Respiratory Rate 19 16 Blood Pressure Pulse Oximetry 97 Oxygen Delivery Mechanical Ventilation Fraction of Inspired Oxygen 30 30 03/19/24 00:00 03/19/24 00:00 03/19/24 00:01 Temperature 37.2 C Pulse Rate 72 76 73 Respiratory Rate 16 16 Blood Pressure 101/51 L Pulse Oximetry 97 Oxygen Delivery Fraction of Inspired Oxygen 03/19/24 00:00 03/19/24 00:01 03/18/24 23:18 Temperature Pulse Rate 73 72 85 Respiratory Rate 16 Blood Pressure 101/51 L Pulse Oximetry 97 Oxygen Delivery Mechanical Ventilation Fraction of Inspired Oxygen 30 03/19/24 02:00 03/19/24 02:00 03/19/24 02:00 Temperature Pulse Rate 71 71 71 Respiratory Rate 16 16 Blood Pressure 103/54 L Pulse Oximetry Oxygen Delivery Fraction of Inspired Oxygen 03/19/24 02:17 03/19/24 02:20 03/18/24 20:53 Temperature Pulse Rate 73 73 86 Respiratory Rate 16 16 Blood Pressure Pulse Oximetry 97 Oxygen Delivery Mechanical Ventilation Fraction of Inspired Oxygen 30 03/19/24 02:00 03/19/24 02:00 03/19/24 02:30 Temperature 36.9 C Pulse Rate 76 77 85 Respiratory Rate 16 16 Blood Pressure 103/54 L Pulse Oximetry 97 Oxygen Delivery Fraction of Inspired Oxygen 03/19/24 02:30 03/19/24 03:29 03/19/24 04:00 Temperature Pulse Rate 85 83 Respiratory Rate 16 18 Blood Pressure Pulse Oximetry 96 Oxygen Delivery Mechanical Ventilation Fraction of Inspired Oxygen 30 30 03/19/24 04:00 03/19/24 03:37 03/19/24 03:37 Temperature 36.7 C Pulse Rate 84 87 86 Respiratory Rate 17 15 16 Blood Pressure 99/49 L Pulse Oximetry 96 Oxygen Delivery Fraction of Inspired Oxygen 03/19/24 04:00 03/19/24 04:30 03/19/24 04:00 Temperature Pulse Rate 84 81 82 Respiratory Rate 19 Blood Pressure 122/59 L Pulse Oximetry Oxygen Delivery Fraction of Inspired Oxygen 03/19/24 04:00 03/19/24 04:00 03/19/24 05:20 Temperature Pulse Rate 83 81 81 Respiratory Rate 16 Blood Pressure 99/49 L Pulse Oximetry 97 Oxygen Delivery Mechanical Ventilation Fraction of Inspired Oxygen 30 03/19/24 02:27 03/19/24 06:00 03/19/24 06:00 Temperature 36.9 C Pulse Rate 76 73 73 Respiratory Rate 16 17 Blood Pressure 102/52 L Pulse Oximetry 97 Oxygen Delivery Fraction of Inspired Oxygen 03/19/24 06:00 03/19/24 06:00 03/19/24 06:00 Temperature Pulse Rate 74 74 75 Respiratory Rate 17 16 Blood Pressure 102/52 L Pulse Oximetry Oxygen Delivery Fraction of Inspired Oxygen 03/19/24 07:30 03/19/24 07:49 03/19/24 07:50 Temperature Pulse Rate 76 78 78 Respiratory Rate 17 17 Blood Pressure 104/51 L Pulse Oximetry Oxygen Delivery Fraction of Inspired Oxygen 03/19/24 07:45 03/19/24 08:02 03/19/24 08:00 Temperature 36.9 C Pulse Rate 78 87 79 Respiratory Rate 22 H 16 Blood Pressure 105/51 L 107/63 Pulse Oximetry 95 Oxygen Delivery Fraction of Inspired Oxygen 03/19/24 08:07 03/19/24 08:12 03/19/24 08:18 Temperature Pulse Rate 85 87 76 Respiratory Rate 16 16 Blood Pressure Pulse Oximetry 94 Oxygen Delivery Mechanical Ventilation Fraction of Inspired Oxygen 30 Intake/Output Intake/Output: Intake & Output 03/16/24 03/17/24 03/18/24 03/19/24 23:59 23:59 23:59 23:59 Intake Total 877.7 1049.5 583.4 Output Total 2200 4630 700 Balance -1322.3 -1800.5 -116.6 Meds/Results Medications: Active Medications Generic Name Dose Route Start Last Admin Trade Name Freq PRN Reason Stop Dose Admin Acetaminophen 500 mg 03/08/24 10:18 03/13/24 09:24 Acetaminophen 500 Mg Tablet FEED TUBE 500 mg Q6H PRN Administration Pain Rated 1-3 Albuterol/Ipratropium 3 ml 02/29/24 02:00 03/19/24 08:06 Ipratropium 0.5 Mg/Albuterol Sulfate 2.5 Mg Ampul.Neb 3 Ml INHALATION 3 ml Q6HRT JASON Administration Alteplase, Recombinant 2 mg 03/06/24 09:45 03/06/24 13:10 Alteplase 2 Mg Vial (Cathflo) IV PUSH 2 mg ONCE PRN Administration Line Occlusion Aspirin 81 mg 03/09/24 08:00 03/19/24 07:49 Aspirin 81 Mg Chewable Tablet FEED TUBE 81 mg DAILY@0800 JASON Administration Dextrose 12.5 gm 02/28/24 19:23 Dextrose 50% 25 Gm/50 Ml Syringe IV PUSH PRN PRN Hypoglycemia Protocol Glucagon 1 mg 02/28/24 19:23 Glucagon For Inj 1 Mg Vial IM PRN PRN Hypoglycemia Protocol Glucose 15 gm 03/08/24 10:19 Glucose Oral Gel 15 Gm Of Glucse In 37.5 Gm Tube FEED TUBE PRN PRN Hypoglycemia Protocol Heparin Sodium (Porcine) 5,000 units 03/03/24 14:00 03/17/24 06:13 Heparin Sodium 5,000 Units/Ml Vial SUB-Q 5,000 units Q8HR JASON Administration Hydralazine HCl 20 mg 03/08/24 10:06 Hydralazine Hcl 20 Mg/Ml Vial IV PUSH Q4HR PRN Hypertension Dextrose 1,000 mls @ 100 mls/hr 02/28/24 19:23 Dextrose 5% 1,000 Ml IVPB PRN PRN Hypoglycemia Protocol Dexmedetomidine HCl 400 mcg in 100 mls @ 9.93 mls/hr 03/11/24 21:50 03/19/24 08:02 Precedex 400 Mcg/100 Ml IV CONT 0.4 mcg/kg/hr .Q10H5M JASON 9.93 mls/hr Titration Protocol 0.4 MCG/KG/HR Fentanyl Citrate 2,500 mcg in 250 mls @ 0 mls/hr 03/14/24 23:20 03/19/24 07:49 Fentanyl 2,500 Mcg/Ns 250 Ml IV CONT 0 mcg/hr .Q0M JASON 0 mls/hr Titration Protocol Norepinephrine Bitartrate 8 mg in 250 mls @ 0 mls/hr 03/15/24 13:30 03/19/24 07:45 Levophed 8 Mg/D5w 250 Ml IV CONT 0 mcg/min .Q0M JASON 0 mls/hr Titration Protocol Cefepime HCl 2 gm in 50 mls @ 100 mls/hr 03/17/24 09:00 03/19/24 08:03 Maxipime 2 Gm/Ns 50 Ml IVPB 100 mls/hr Q12H JASON Administration Insulin Aspart 3 - 6 units 03/15/24 17:00 03/19/24 07:49 Insulin Aspart (*Bkc) 100 Units/Ml SUB-Q 3 units Q4HR JASON Administration Protocol Insulin Glargine 55 units 03/15/24 09:00 03/16/24 10:44 Insulin Glargine (*Bkc) 100 Units/Ml SUB-Q 55 units DAILY JASON Administration Labetalol HCl 20 mg 03/08/24 10:06 03/08/24 16:48 Labetalol Hcl Inj 100 Mg/20 Ml Vial IV PUSH 20 mg Q4H PRN Administration SBP > 160 and HR> 60 -1st choice Metoclopramide HCl 10 mg 03/16/24 18:00 03/19/24 05:09 Metoclopramide Hcl Inj 10 Mg/2 Ml Vial IV PUSH 10 mg Q6HR JASON Administration Multi-Ingred Cream/Lotion/Oil/Oint 1 applic 03/15/24 09:00 03/19/24 07:49 Mineral Oil/White Petrolatum Ointment EACH EYE 1 applic Q12HR JASON Administration Pantoprazole Sodium 40 mg 03/02/24 09:00 03/19/24 07:49 Pantoprazole Sodium Iv 40 Mg Vial IV PUSH 40 mg Q12HR JASON Administration Sodium Chloride 10 ml 02/29/24 06:00 03/19/24 05:09 Central Line Flush IV PUSH 10 ml Q8HR JASON Administration Sodium Chloride 20 ml 02/28/24 23:37 Central Line Flush IV PUSH PRN PRN after blood draws Radiology Results: ITS Impressions Lower Extremity CTA 02/28/24 14:54 IMPRESSION: 1. 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 2. Moderate stenosis of right popliteal artery. 3. Osteomyelitis involving first proximal and distal phalanges and head of first metatarsal. Head CT 02/29/24 05:55 Impression: No intracranial hemorrhage, mass, or acute infarct. Stable chronic encephalomalacia in the high left parietal lobe. Atrophy and chronic white matter changes, as above. Chest/Abdomen/Pelvis CTA 02/29/24 06:02 Impression: Extensive right upper lobe consolidation and more mild right middle lobe consolidation, consistent with pneumonia. Consider aspiration pneumonia. Moderate to large right pleural effusion with complete atelectasis of the right lower lobe. Moderate left pleural effusion with minimal left basilar atelectasis. Small pericardial effusion. No definite acute abnormality in the abdomen or pelvis. Chronic compression fractures, as above. Renal Ultrasound 03/03/24 15:45 IMPRESSION: 1. Normal kidneys without hydronephrosis. 2. Small amount of ascites in the abdomen and pelvis. Venous Doppler Study 03/11/24 13:58 IMPRESSION: 1. Patent bilateral upper extremity veins. No evidence of venous thrombosis. Abdomen Ultrasound 03/13/24 16:52 IMPRESSION: 1. No etiology for abnormal liver function tests. 2. Normal hepatic veins and main portal vein. Right and left portal veins and proper hepatic artery not evaluated. 3. Right pleural effusion. Vascular Ultrasound 03/13/24 16:52 IMPRESSION: 1. No etiology for abnormal liver function tests. 2. Normal hepatic veins and main portal vein. Right and left portal veins and proper hepatic artery not evaluated. 3. Right pleural effusion. Abdomen X-Ray 03/16/24 19:53 IMPRESSION: Orogastric tube in satisfactory position in the stomach Chest/Abdomen/Pelvis CT 03/16/24 21:51 IMPRESSION: Anasarca Large pleural effusions with prominent compressive atelectasis of the lower lobes especially, dependent atelectasis of the middle and upper lobes Heart size. Prominent coronary artery atherosclerotic calcifications Minimal pericardial effusion Prominent diffuse thickening of urinary bladder wall suggesting cystitis area Ha catheter in bladder lumen Very prominent amount of fluid and large fluid level within the stomach despite presence of NG tube T11 and L1 moderate anterior wedge compression fractures, likely chronic Thoracentesis Ultrasound 03/18/24 10:27 IMPRESSION: 1. Successful ultrasound-guided thoracentesis yielding 550 mL of doris-colored fluid. Chest X-Ray 03/18/24 10:35 IMPRESSION: 1. Stable small right pleural effusion. 2. Airspace opacities at the lung bases with improvement on the left, consistent with atelectasis versus pneumonia. Labs Labs: Laboratory Results - last 24 hr 03/18/24 03/18/24 03/18/24 08:28 11:57 16:01 WBC RBC Hgb Hct MCV MCH MCHC RDW Plt Count MPV PT INR POC Capillary Glucose 160 H 179 H 164 H 03/18/24 03/18/24 03/19/24 19:21 23:59 07:30 WBC 10.8 H RBC 2.79 L Hgb 7.5 L Hct 26.1 L MCV 93.5 MCH 26.9 MCHC 28.7 L RDW 17.6 H Plt Count 235 MPV 10.4 PT 19.0 H INR 1.5 POC Capillary Glucose 170 H 187 H 03/19/24 07:48 WBC RBC Hgb Hct MCV MCH MCHC RDW Plt Count MPV PT INR POC Capillary Glucose 219 H Quality VTE Prophylaxis VTE prophylaxis: pharmacologic ordered
[2024-03-19 08:32] LABS: Triglycerides 89 mg/dL (<150)
[2024-03-19 08:33] LABS: Alanine Aminotransferase 77 U/L (6-50); Albumin Level 2.5 g/dL (3.5-5.1); Alkaline Phosphatase 197 U/L (38-126); Anion Gap 5 mmol/L (4-12); Aspartate Amino Transferase 41 U/L (17-59); Bilirubin,Total 0.7 mg/dL (0.2-1.3); Blood Urea Nitrogen 30 mg/dL (9-20); Calcium 7.8 mg/dL (8.4-10.2); Carbon Dioxide 31 mmol/L (22-30); Chloride 110 mmol/L (98-107); Estimated CRCL calculation 90 ml/min; Estimated Glomerular Filt Rate > 60; Glucose 227 mg/dL (65-110); Magnesium 2.6 mg/dL (1.6-2.3); Potassium 3.9 mmol/L (3.4-5.0); Sodium 146 mmol/L (137-145)
[2024-03-19] MEDS: FUROSEMIDE INJ 40 MG/4 ML VIAL IV PUSH (09:07)
[2024-03-19 09:12] LABS: Base Excess ABG 4.8 mEq/l (+/-2.0); Fractional Inspired Oxygen 30 %; HCO3 ABG 28.7 mEq/l (22.0-26.0); Oxygen Content ABG 11.3 %vol (16.0-22.0); Oxyhemoglobin 95.2 % THb (90.0-100.0); PCO2 ABG 39.1 mmHg (35.0-45.0); PO2 FiO2 Ratio Arterial Blood 2.83 %; Total Hemoglobin 8.3 g/dL (12.0-18.0); pH ABG 7.483 (7.350-7.450)
[2024-03-19 09:14] LABS: Device VENTILATOR; Modified Allen's Test Pass; Site Drawn LEFT RADIAL
[2024-03-19 09:16] LABS: Arterial Blood Gas PEEP 5 cmH2O; Arterial Blood Gas Pressure Support 5 cmH2O; Arterial Blood Gas Vent Mode PRESSURE SUPPORT
--- NOTE | 2024-03-19 09:20 | PC.NURSE ---
Precedex gtt paused for extubation per MD order
--- NOTE | 2024-03-19 11:02 | PCFNICU ---
ICU Rounding Note: Pt current nutrition is NPO. Nutrition recommendation: advance diet as tolerated to CC diet when medically able. Last recorded weight is 97.5 kg, down from 98 kg on admit. Bowel Motility: +BM reported 03/16 Labs Reviewed:Glu 227, Alb 2.5, Na 146, Hct 26.1, Hgb 7.5 Meds Noted:Reglan, NovoLog, Lantus, Protonix Skin: Stage II pressure ulcer-sacrum, BKA right foot. Additional Notes: Patient was extubated today. Spoke with nursing today. Patient currently NPO at this time, Plaster Applicator will evaluate diet orders later today. Following daily in ICU rounds. Will monitor weight, labs, skin, tube feedings, meds, every 3 days.
--- NOTE | 2024-03-19 12:21 | PC.NURSE ---
During a conversation with pt, pt had mentioned that he has family in this area. Pt lists a Leonel Heredia as his nephew and a Flaca Heredia as his niece, with last known location in [place]. Pt states he also has a son named Ricky Dunaway. The son was born in [facility], but pt is currently unaware of son's last known location. RN notified Care Coordination of this information.
--- NOTE | 2024-03-19 12:24 | P.PNCROSS_ITS ---
Event Note Event Note Event Note: 09/15 PSV SBT done for more than 1 hour. RSBI, ABGI and Vitals acceptable. Pt teresa ke and following commands. Patient extubated and placed on nasal cannula. Monitor for now. NPO for now. Patient was reintubated last time after extubation. Will use BiPAP at night. I spoke to patient again this time and explained him that if he needs re-intubation he will need trach and PEG. Patient is agreeable to both re-intubation if needed and trach and PEG if he gets 3 intubated.
[2024-03-19 12:49] LABS: Glucose Point of Care 163 mg/dl (65-105)
--- NOTE | 2024-03-19 16:08 | PM.IMPN ---
Progress Note: A&P Assessment and Plan (1) Acute respiratory failure with hypoxia: Code(s): J96.01 - Acute respiratory failure with hypoxia Status: Acute Assessment and Plan: Acute respiratory failure likely related to cardiac arrest, aspiration pneumonia, NSTEMI, hypoxia, septic shock Worsening likely secondary to ARDS versus pulmonary edema Intubated 02/27 02/28 Chest CTA: Extensive right upper lobe consolidation and more mild right middle lobe consolidation, consistent with pneumonia. Consider aspiration pneumonia.Moderate to large right pleural effusion with complete atelectasis of the right lower lobe. Moderate left pleural effusion with minimal left basilar atelectasis. Small pericardial effusion. No definite acute abnormality in the abdomen or pelvis. Chronic compression fractures, as above . -03/07 right thoracentesis with 1 L fluid removed -03/08 left-sided thoracentesis 550 mL -03/11: patient was in pressure support ventilation 02/18, with decrease tidal volumes in the upper 200s. place patient back on CMV, I have asked the bedside RN to decrease the Precedex infusion once patient is more awake will place back on spontaneous breathing trials 03/12: Place patient on SBT 04/17, low tidal volumes, low respiratory rate. Patient had replaced back on CMV mode of ventilation. -even on ASV patient is breathing only 7-8 times a minute 03/13: Off Precedex infusion overnight, placed patient on pressure support ventilation 04/17, initially did well but not significantly tachycardic and tachypneic and in respiratory distress, patient was placed back on CMV mode of ventilation and low-dose was 03/14 8/5 PSV SBT done for more than 1 hour. RSBI, ABG and Vitals acceptable. Pt awake and following commands. Patient was extubated. Initially patient did well and was on nasal cannula and was able to communicate. Over 12 hours patient became more hypoxic with increased respiratory distress and tachypnea. I spoke to patient post extubation and was agreeable to re-intubation if needed and stated that 'he is not ready to ' and 'do what ever it takes'. He was re intubated at night. I also mentioned to him that he may need tracheostomy and PEG tube placement if he gets we intubated and is not weanable. He told me 'to proceed with it if needed'. Solu-Medrol IV given for airway edema and will be continued for 24 hours -completed course of Solu-Medrol -continue bronchodilators -on Precedex and fentanyl -chest x-ray and ABG reviewed -CT scan shows large pleural effusions bilaterally. I will request IR for thoracentesis.. Patient is on minimal ventilator setting but has failed trials initially multiple times and then once extubated he was reintubated within 12 hours. I will treat try again after thoracentesis to see patient is weanable from the vent otherwise will proceed with trach and PEG as patient has been on ventilator for more than 2 weeks. 03/17 right thoracentesis 1 L fluid was removed 03/18 left thoracentesis 550 mL fluid was removed Will also continue diuretics. 03/19 sedation holiday and weaning trial. Continue Lasix. (2) Elevated LFTs: Code(s): R79.89 - Other specified abnormal findings of blood chemistry Status: Acute Assessment and Plan: 03/13: Significant elevation in LFTs, AST 2280, ALT 988, alk-phos 722 -patient has been hemodynamically stable, no hypotension noted in the last 24-48 hours -statin discontinued. Hold Tylenol -no tenderness in the right upper, lower quadrant or epigastric region on exam -negative vital hepatitis panel, right upper quadrant ultrasound with Doppler negative for hepatic or portal vein thrombosis -patient evaluated by GI -levels improving. Monitor (3) Cardiac arrest with pulseless electrical activity: Code(s): I46.9 - Cardiac arrest, cause unspecified Status: Acute Assessment and Plan: Cardiac arrest, secondary to unknown etiology. Possible aspiration pneumonia, NSTEMI, hypoxia, septic shock, infection -see code blue sheet for the details -patient currently intubated, vasopressors for blood pressure support have been weaned off -appreciate cardiology following the patient 02/29/2024 echocardiogram Summary 1. Technically difficult study with limited views. 2. Left ventricular chamber dimension is normal. 3. Left ventricular systolic function is mildly reduced, estimated at 45-50%. The apex appears to be hypokinetic. 4. There is mildly increased left ventricular wall thickness. 5. The left ventricular diastolic function is grade I diastolic dysfunction. 6. Right ventricular systolic function is normal. 7. Left atrial chamber dimension is moderately enlarged. 8. There is mild to moderate tricuspid valve regurgitation. 9. There is small anterior pericardial effusion. (4) Septic shock: Code(s): A41.9 - Sepsis, unspecified organism; R65.21 - Severe sepsis with septic shock Status: Acute Assessment and Plan: Resolved Patient in shock, likely related to the gangrene, aspiration pneumonia, status post cardiac arrest 02/28/2024: Blood cultures have been obtained and negative Off vasopressors and IV fluids Status post 10 days of antibiotics 03/16 low-grade fever increase in WBC CT scan as above, repeat blood cultures and sputum pending UA suggestive of UTI. Urine cultures pending. Ha has been changed. Continue cefepime (5) NSTEMI (non-ST elevated myocardial infarction): Code(s): I21.4 - Non-ST elevation (NSTEMI) myocardial infarction Status: Acute Assessment and Plan: Increasing troponins, -EKG showed sinus rhythm with T-wave changes in V1 to V5 -appreciate cardiology evaluation and recommendation -Continue aspirin and high-dose a statin -will hold Brilinta. Resumption per General surgery - beta-brayden, losartan are on hold due to soft blood pressure -03/02 heparin infusion was discontinued after 48 hours for NSTEMI by cardiology (6) Gangrene of right foot: Code(s): I96 - Gangrene, not elsewhere classified Status: Acute Assessment and Plan: CTA showed peripheral arterial disease with total occlusion of the right anterior and posterior tibial arteries and right peroneal artery with distal reconstitution of peroneal artery. This extensive gangrene of the right foot with gas seen on CT of the foot. General surgery spoke to the patient in the ER on the day of admission on 02/27 patient at that time agreed for below-knee amputation. Plan was to do a below-knee amputation on 02/29/2024 but patient had a cardiac arrest that night secondary to sepsis. Surgery at that time was deferred. Patient now is intubated sedated and unable to sign his consent.. Patient has no family and for many years at the intermediate has had no visitor. He has 1 son which no one has been able to get hold off right several attempts. Considering patient has gangrene of the foot with no vascular supply leading to sepsis and if untreatable lead to his , Dr. Johns will proceed with amputation today, 03/05/2024. Dr. Collins and Dr. Johns has signed 2 physician consent considering patient's clearly expressed wishes prior to cardiac arrest at the time of admission, his current situation and inability to sign the consent form by himself at this time. 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 -complete 5 days of clindamycin 03/13: Discussed with surgery, there is flexion contractures of his amputation which may hinder in him getting prosthetics, patient may require above knee amputation (7) Osteomyelitis of toe of right foot: Code(s): M86.9 - Osteomyelitis, unspecified Status: Chronic Assessment and Plan: As above (8) Peripheral vascular disease: Code(s): I73.9 - Peripheral vascular disease, unspecified Status: Chronic Assessment and Plan: Patient has history of peripheral vascular disease, coronary artery disease -started on aspirin, patient will require Brilinta since he had a STEMI in 2020 but currently holding Brilinta due to surgery and bleeding (9) Type 2 diabetes mellitus: Qualifiers: 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 complication status: with other specified complication 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 terminal press operator insulin use: with terminal press operator use Qualified Code(s): E11.69 - Type 2 diabetes mellitus with other specified complication; Z79.4 - intermediate designer (current) use of insulin Code(s): E11.9 - Type 2 diabetes mellitus without complications Status: Acute Assessment and Plan: Currently on sliding scale insulin, Accu-Cheks Hemoglobin A1c this admission is 8.2 Lantus is on hold (10) Chronic obstructive pulmonary disease: Code(s): J44.9 - Chronic obstructive pulmonary disease, unspecified Status: Chronic Assessment and Plan: Continue DuoNebs -continue Symbicort (11) Electrolyte abnormality: Code(s): E87.8 - Other disorders of electrolyte and fluid balance, not elsewhere classified Status: Acute Assessment and Plan: Hypernatremia, improved with free water flush (12) Ileus: Code(s): K56.7 - Ileus, unspecified Status: Acute Assessment and Plan: CT scan shows significant amount of tube feeds collected in the stomach. Patient also had high residuals. Patient has already been on Reglan. Bowel sounds are present but decreased. Tube feeds at low rate. Will advance if unable to extubate. Subjective Date/time seen: 03/19/24 16:08 Interval history: Extubated and off vasopressors. NPO for now. BiPAP at night. Review of Systems Review of Systems: 12 systems were reviewed and are negative except for as per HPI. ROS unobtainable: Yes unobtainable due to endotracheal tube, unobtainable due to medical condition and unobtainable due to mental status Exam Narrative: General: Patient intubated and sedated, in no acute distress HEENT:, pupils are equal and reactive from a sclera is clear Neck:? supple Respiratory:? Coarse breath sounds bilaterally, decreased at bases, adequate air entry, no wheezing Cardiac:? S1-S2 normal, regular rate and rhythm Abdomen:? Soft, nontender, nondistended, bowel sounds are decreased but present Extremities:? Right BKA stump under the dressing. Left dorsalis pedis is dopplerable Neuro:? Patient is intubated, on Precedex and fentanyl infusion opens his eyes on stimulation and follows simple commands Skin:? Patient has maceration of his perianal area, pressure ulcer on his buttocks. Psych:? Unable to assess at this time Objective Data Vital Signs Vital Signs: Vital Signs - 24 hr 03/18/24 17:00 03/18/24 17:06 03/18/24 17:13 Temperature Pulse Rate 87 87 83 Respiratory Rate 20 20 Blood Pressure Pulse Oximetry 93 Oxygen Delivery Mechanical Ventilation Oxygen Flow Rate Fraction of Inspired Oxygen 30 03/18/24 17:00 03/18/24 18:22 03/18/24 18:23 Temperature Pulse Rate 103 H 73 73 Respiratory Rate 19 16 19 Blood Pressure Pulse Oximetry Oxygen Delivery Oxygen Flow Rate Fraction of Inspired Oxygen 03/18/24 18:00 03/18/24 18:00 03/18/24 18:00 Temperature 99.2 F Pulse Rate 75 75 75 Respiratory Rate 16 Blood Pressure 94/49 L 94/49 L Pulse Oximetry 94 Oxygen Delivery Oxygen Flow Rate Fraction of Inspired Oxygen 03/18/24 19:20 03/18/24 20:00 03/18/24 19:57 Temperature Pulse Rate 86 89 Respiratory Rate 18 Blood Pressure Pulse Oximetry Oxygen Delivery Oxygen Flow Rate Fraction of Inspired Oxygen 30 03/18/24 20:00 03/18/24 20:00 03/18/24 20:00 Temperature 99.3 F Pulse Rate 84 91 90 Respiratory Rate 16 18 Blood Pressure 116/55 L 116/55 L Pulse Oximetry 94 Oxygen Delivery Oxygen Flow Rate Fraction of Inspired Oxygen 03/18/24 20:00 03/18/24 20:43 03/18/24 20:44 Temperature Pulse Rate 91 85 85 Respiratory Rate 18 17 Blood Pressure Pulse Oximetry 97 Oxygen Delivery Mechanical Ventilation Oxygen Flow Rate Fraction of Inspired Oxygen 30 03/18/24 20:00 03/18/24 22:00 03/18/24 22:00 Temperature 99.0 F Pulse Rate 85 91 92 Respiratory Rate 17 17 Blood Pressure 124/59 L Pulse Oximetry 95 94 Oxygen Delivery Mechanical Ventilation Oxygen Flow Rate Fraction of Inspired Oxygen 30 03/18/24 22:00 03/18/24 22:00 03/18/24 22:00 Temperature Pulse Rate 92 91 91 Respiratory Rate 17 17 Blood Pressure 124/59 L Pulse Oximetry Oxygen Delivery Oxygen Flow Rate Fraction of Inspired Oxygen 03/18/24 22:30 03/18/24 22:37 03/18/24 22:39 Temperature Pulse Rate 86 86 85 Respiratory Rate 18 18 19 Blood Pressure Pulse Oximetry Oxygen Delivery Oxygen Flow Rate Fraction of Inspired Oxygen 03/18/24 23:30 03/18/24 23:31 03/19/24 00:00 Temperature 98.9 F Pulse Rate 80 72 Respiratory Rate 16 16 Blood Pressure 101/51 L Pulse Oximetry 97 97 Oxygen Delivery Mechanical Ventilation Oxygen Flow Rate Fraction of Inspired Oxygen 30 30 03/19/24 00:00 03/19/24 00:01 03/19/24 00:00 Temperature Pulse Rate 76 73 73 Respiratory Rate 16 16 Blood Pressure Pulse Oximetry Oxygen Delivery Oxygen Flow Rate Fraction of Inspired Oxygen 03/19/24 00:01 03/18/24 23:18 03/19/24 02:00 Temperature Pulse Rate 72 85 71 Respiratory Rate 16 Blood Pressure 101/51 L Pulse Oximetry 97 Oxygen Delivery Mechanical Ventilation Oxygen Flow Rate Fraction of Inspired Oxygen 30 03/19/24 02:00 03/19/24 02:00 03/19/24 02:17 Temperature Pulse Rate 71 71 73 Respiratory Rate 16 16 Blood Pressure 103/54 L Pulse Oximetry Oxygen Delivery Oxygen Flow Rate Fraction of Inspired Oxygen 03/19/24 02:20 03/18/24 20:53 03/19/24 02:00 Temperature Pulse Rate 73 86 76 Respiratory Rate 16 Blood Pressure Pulse Oximetry 97 Oxygen Delivery Mechanical Ventilation Oxygen Flow Rate Fraction of Inspired Oxygen 30 03/19/24 02:00 03/19/24 02:30 03/19/24 02:30 Temperature 98.5 F Pulse Rate 77 85 85 Respiratory Rate 16 16 16 Blood Pressure 103/54 L Pulse Oximetry 97 Oxygen Delivery Oxygen Flow Rate Fraction of Inspired Oxygen 03/19/24 03:29 03/19/24 04:00 03/19/24 04:00 Temperature 98.1 F Pulse Rate 83 84 Respiratory Rate 18 17 Blood Pressure 99/49 L Pulse Oximetry 96 96 Oxygen Delivery Mechanical Ventilation Oxygen Flow Rate Fraction of Inspired Oxygen 30 30 03/19/24 03:37 03/19/24 03:37 03/19/24 04:00 Temperature Pulse Rate 87 86 84 Respiratory Rate 15 16 Blood Pressure Pulse Oximetry Oxygen Delivery Oxygen Flow Rate Fraction of Inspired Oxygen 03/19/24 04:30 03/19/24 04:00 03/19/24 04:00 Temperature Pulse Rate 81 82 83 Respiratory Rate 19 16 Blood Pressure 122/59 L Pulse Oximetry Oxygen Delivery Oxygen Flow Rate Fraction of Inspired Oxygen 03/19/24 04:00 03/19/24 05:20 03/19/24 02:27 Temperature Pulse Rate 81 81 76 Respiratory Rate 16 Blood Pressure 99/49 L Pulse Oximetry 97 Oxygen Delivery Mechanical Ventilation Oxygen Flow Rate Fraction of Inspired Oxygen 30 03/19/24 06:00 03/19/24 06:00 03/19/24 06:00 Temperature 98.4 F Pulse Rate 73 73 74 Respiratory Rate 17 17 Blood Pressure 102/52 L Pulse Oximetry 97 Oxygen Delivery Oxygen Flow Rate Fraction of Inspired Oxygen 03/19/24 06:00 03/19/24 06:00 03/19/24 07:30 Temperature Pulse Rate 74 75 76 Respiratory Rate 16 Blood Pressure 102/52 L 104/51 L Pulse Oximetry Oxygen Delivery Oxygen Flow Rate Fraction of Inspired Oxygen 03/19/24 07:49 03/19/24 07:50 03/19/24 07:45 Temperature Pulse Rate 78 78 78 Respiratory Rate 17 17 Blood Pressure 105/51 L Pulse Oximetry Oxygen Delivery Oxygen Flow Rate Fraction of Inspired Oxygen 03/19/24 08:02 03/19/24 08:00 03/19/24 08:00 Temperature 98.4 F Pulse Rate 87 79 79 Respiratory Rate 22 H 16 22 H Blood Pressure 107/63 Pulse Oximetry 95 95 Oxygen Delivery Mechanical Ventilation Oxygen Flow Rate Fraction of Inspired Oxygen 30 03/19/24 08:00 03/19/24 08:00 03/19/24 08:07 Temperature Pulse Rate 87 79 85 Respiratory Rate 16 Blood Pressure 107/63 Pulse Oximetry Oxygen Delivery Oxygen Flow Rate Fraction of Inspired Oxygen 03/19/24 08:12 03/19/24 08:18 03/19/24 09:25 Temperature Pulse Rate 87 76 95 Respiratory Rate 16 20 Blood Pressure Pulse Oximetry 94 90 Oxygen Delivery Mechanical Ventilation Nasal Cannula Oxygen Flow Rate 3 Fraction of Inspired Oxygen 30 03/19/24 09:20 03/19/24 10:00 03/19/24 10:00 Temperature 98.8 F Pulse Rate 86 104 H 98 Respiratory Rate 15 18 Blood Pressure 129/62 Pulse Oximetry 91 Oxygen Delivery Oxygen Flow Rate Fraction of Inspired Oxygen 03/19/24 10:00 03/19/24 11:38 03/19/24 11:50 Temperature Pulse Rate 98 112 H 108 H Respiratory Rate Blood Pressure 129/62 135/85 Pulse Oximetry 94 Oxygen Delivery Nasal Cannula Oxygen Flow Rate 3 Fraction of Inspired Oxygen 03/19/24 12:00 03/19/24 12:00 03/19/24 12:00 Temperature 99.1 F Pulse Rate 108 H 108 H 110 H Respiratory Rate 20 20 Blood Pressure 134/61 Pulse Oximetry 89 L 89 L Oxygen Delivery Nasal Cannula Oxygen Flow Rate 3 Fraction of Inspired Oxygen 03/19/24 14:10 03/19/24 14:10 03/19/24 14:20 Temperature Pulse Rate 97 116 H Respiratory Rate 20 20 Blood Pressure Pulse Oximetry 92 Oxygen Delivery Nasal Cannula Oxygen Flow Rate 4 Fraction of Inspired Oxygen 03/19/24 14:00 03/19/24 14:00 Temperature 99.1 F Pulse Rate 116 H 117 H Respiratory Rate 22 H Blood Pressure 134/65 Pulse Oximetry 88 L Oxygen Delivery Oxygen Flow Rate Fraction of Inspired Oxygen Intake/Output Intake/Output: Intake & Output 03/16/24 03/17/24 03/18/24 03/19/24 23:59 23:59 23:59 23:59 Intake Total 877.7 1049.5 646.3 Output Total 2200 2850 2900 Balance -1322.3 -1800.5 -2253.7 Meds/Results Medications: Active Medications Generic Name Dose Route Start Last Admin Trade Name Freq PRN Reason Stop Dose Admin Acetaminophen 500 mg 03/08/24 10:18 03/13/24 09:24 Acetaminophen 500 Mg Tablet FEED TUBE 500 mg Q6H PRN Administration Pain Rated 1-3 Albuterol/Ipratropium 3 ml 02/29/24 02:00 03/19/24 14:10 Ipratropium 0.5 Mg/Albuterol Sulfate 2.5 Mg Ampul.Neb 3 Ml INHALATION 3 ml Q6HRT JASON Administration Alteplase, Recombinant 2 mg 03/06/24 09:45 03/06/24 13:10 Alteplase 2 Mg Vial (Cathflo) IV PUSH 2 mg ONCE PRN Administration Line Occlusion Aspirin 81 mg 03/09/24 08:00 03/19/24 07:49 Aspirin 81 Mg Chewable Tablet FEED TUBE 81 mg DAILY@0800 JASON Administration Dextrose 12.5 gm 02/28/24 19:23 Dextrose 50% 25 Gm/50 Ml Syringe IV PUSH PRN PRN Hypoglycemia Protocol Glucagon 1 mg 02/28/24 19:23 Glucagon For Inj 1 Mg Vial IM PRN PRN Hypoglycemia Protocol Glucose 15 gm 03/08/24 10:19 Glucose Oral Gel 15 Gm Of Glucse In 37.5 Gm Tube FEED TUBE PRN PRN Hypoglycemia Protocol Heparin Sodium (Porcine) 5,000 units 03/03/24 14:00 03/17/24 06:13 Heparin Sodium 5,000 Units/Ml Vial SUB-Q 5,000 units Q8HR JASON Administration Hydralazine HCl 20 mg 03/08/24 10:06 Hydralazine Hcl 20 Mg/Ml Vial IV PUSH Q4HR PRN Hypertension Dextrose 1,000 mls @ 100 mls/hr 02/28/24 19:23 Dextrose 5% 1,000 Ml IVPB PRN PRN Hypoglycemia Protocol Dexmedetomidine HCl 400 mcg in 100 mls @ 0 mls/hr 03/11/24 21:50 03/19/24 14:23 Precedex 400 Mcg/100 Ml IV CONT Not Given .Q0M JASON Protocol 0 MCG/KG/HR Fentanyl Citrate 2,500 mcg in 250 mls @ 0 mls/hr 03/14/24 23:20 03/19/24 09:42 Fentanyl 2,500 Mcg/Ns 250 Ml IV CONT Not Given .Q0M JASON Protocol Cefepime HCl 2 gm in 50 mls @ 100 mls/hr 03/17/24 09:00 03/19/24 08:33 Maxipime 2 Gm/Ns 50 Ml IVPB Infused Q12H JASON Infusion Insulin Aspart 3 - 6 units 03/15/24 17:00 03/19/24 12:11 Insulin Aspart (*Bkc) 100 Units/Ml SUB-Q Not Given Q4HR [facility] Protocol Insulin Glargine 55 units 03/15/24 09:00 03/16/24 10:44 Insulin Glargine (*Bkc) 100 Units/Ml SUB-Q 55 units DAILY JASON Administration Labetalol HCl 20 mg 03/08/24 10:06 03/08/24 16:48 Labetalol Hcl Inj 100 Mg/20 Ml Vial IV PUSH 20 mg Q4H PRN Administration SBP > 160 and HR> 60 -1st choice Pantoprazole Sodium 40 mg 03/02/24 09:00 03/19/24 07:49 Pantoprazole Sodium Iv 40 Mg Vial IV PUSH 40 mg Q12HR JASON Administration Sodium Chloride 10 ml 02/29/24 06:00 03/19/24 14:24 Central Line Flush IV PUSH 10 ml Q8HR JASON Administration Sodium Chloride 20 ml 02/28/24 23:37 Central Line Flush IV PUSH PRN PRN after blood draws Radiology Results: ITS Impressions Lower Extremity CTA 02/28/24 14:54 IMPRESSION: 1. 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 2. Moderate stenosis of right popliteal artery. 3. Osteomyelitis involving first proximal and distal phalanges and head of first metatarsal. Head CT 02/29/24 05:55 Impression: No intracranial hemorrhage, mass, or acute infarct. Stable chronic encephalomalacia in the high left parietal lobe. Atrophy and chronic white matter changes, as above. Chest/Abdomen/Pelvis CTA 02/29/24 06:02 Impression: Extensive right upper lobe consolidation and more mild right middle lobe consolidation, consistent with pneumonia. Consider aspiration pneumonia. Moderate to large right pleural effusion with complete atelectasis of the right lower lobe. Moderate left pleural effusion with minimal left basilar atelectasis. Small pericardial effusion. No definite acute abnormality in the abdomen or pelvis. Chronic compression fractures, as above. Renal Ultrasound 03/03/24 15:45 IMPRESSION: 1. Normal kidneys without hydronephrosis. 2. Small amount of ascites in the abdomen and pelvis. Venous Doppler Study 03/11/24 13:58 IMPRESSION: 1. Patent bilateral upper extremity veins. No evidence of venous thrombosis. Abdomen Ultrasound 03/13/24 16:52 IMPRESSION: 1. No etiology for abnormal liver function tests. 2. Normal hepatic veins and main portal vein. Right and left portal veins and proper hepatic artery not evaluated. 3. Right pleural effusion. Vascular Ultrasound 03/13/24 16:52 IMPRESSION: 1. No etiology for abnormal liver function tests. 2. Normal hepatic veins and main portal vein. Right and left portal veins and proper hepatic artery not evaluated. 3. Right pleural effusion. Abdomen X-Ray 03/16/24 19:53 IMPRESSION: Orogastric tube in satisfactory position in the stomach Chest/Abdomen/Pelvis CT 03/16/24 21:51 IMPRESSION: Anasarca Large pleural effusions with prominent compressive atelectasis of the lower lobes especially, dependent atelectasis of the middle and upper lobes Heart size. Prominent coronary artery atherosclerotic calcifications Minimal pericardial effusion Prominent diffuse thickening of urinary bladder wall suggesting cystitis area Ha catheter in bladder lumen Very prominent amount of fluid and large fluid level within the stomach despite presence of NG tube T11 and L1 moderate anterior wedge compression fractures, likely chronic Thoracentesis Ultrasound 03/18/24 10:27 IMPRESSION: 1. Successful ultrasound-guided thoracentesis yielding 550 mL of doris-colored fluid. Chest X-Ray 03/18/24 10:35 IMPRESSION: 1. Stable small right pleural effusion. 2. Airspace opacities at the lung bases with improvement on the left, consistent with atelectasis versus pneumonia. Labs Labs: Laboratory Results - last 24 hr 03/18/24 03/18/24 03/19/24 19:21 23:59 07:28 WBC RBC Hgb Hct MCV MCH MCHC RDW Plt Count MPV PT INR Puncture Site ABG pH ABG pCO2 ABG pO2 ABG PO2/FiO2 Ratio ABG HCO3 ABG O2 Saturation ABG O2 Content ABG Base Excess A-a Gradient Oxyhemoglobin Total Hemoglobin O2 Delivery Device O2 Liters/Min Minute Volume Vent Rate Vent Mode FiO2 Tidal Volume PEEP Peak Inspir Pressure Pressure Support Sodium 146 H Potassium 3.9 Chloride 110 H Carbon Dioxide 31 H Anion Gap 5 BUN 30 H Creatinine 0.80 Estim Creat Clear Calc 90 Estimated GFR > 60 Glucose 227 H POC Capillary Glucose 170 H 187 H Calcium 7.8 L Magnesium 2.6 H Total Bilirubin 0.7 AST 41 ALT 77 H Alkaline Phosphatase 197 H Total Protein 6.0 L Albumin 2.5 L Triglycerides 89 03/19/24 03/19/24 03/19/24 07:30 07:48 09:09 WBC 10.8 H RBC 2.79 L Hgb 7.5 L Hct 26.1 L MCV 93.5 MCH 26.9 MCHC 28.7 L RDW 17.6 H Plt Count 235 MPV 10.4 PT 19.0 H INR 1.5 Puncture Site Left radial ABG pH 7.483 H ABG pCO2 39.1 ABG pO2 85.0 ABG PO2/FiO2 Ratio 2.83 ABG HCO3 28.7 H ABG O2 Saturation 97.0 ABG O2 Content 11.3 L ABG Base Excess 4.8 A-a Gradient 83.0 Oxyhemoglobin 95.2 Total Hemoglobin 8.3 L O2 Delivery Device Ventilator O2 Liters/Min Not Reportable Minute Volume Not Reportable Vent Rate Not Reportable Vent Mode Pressure support FiO2 30 Tidal Volume Not Reportable PEEP 5 Peak Inspir Pressure Not Reportable Pressure Support 5 Sodium Potassium Chloride Carbon Dioxide Anion Gap BUN Creatinine Estim Creat Clear Calc Estimated GFR Glucose POC Capillary Glucose 219 H Calcium Magnesium Total Bilirubin AST ALT Alkaline Phosphatase Total Protein Albumin Triglycerides 03/19/24 11:51 WBC RBC Hgb Hct MCV MCH MCHC RDW Plt Count MPV PT INR Puncture Site ABG pH ABG pCO2 ABG pO2 ABG PO2/FiO2 Ratio ABG HCO3 ABG O2 Saturation ABG O2 Content ABG Base Excess A-a Gradient Oxyhemoglobin Total Hemoglobin O2 Delivery Device O2 Liters/Min Minute Volume Vent Rate Vent Mode FiO2 Tidal Volume PEEP Peak Inspir Pressure Pressure Support Sodium Potassium Chloride Carbon Dioxide Anion Gap BUN Creatinine Estim Creat Clear Calc Estimated GFR Glucose POC Capillary Glucose 163 H Calcium Magnesium Total Bilirubin AST ALT Alkaline Phosphatase Total Protein Albumin Triglycerides Quality VTE Prophylaxis VTE prophylaxis: pharmacologic ordered Hospitalist MIPS Advance Care Plan I have confirmed that the patient's Advanced Care Plan is present, code status is documented, or surrogate decision maker is listed in patient medical record.: Yes Medication Reconciliation I have utilized all available resources to obtain, update and review the patients current medications (includes all prescriptions, OTC, herbals, cannabis, and nutritional supplements).: Yes
[2024-03-19 16:49] LABS: Glucose Point of Care 142 mg/dl (65-105)
[2024-03-19] MEDS: MORPHINE SULFATE (*CRX) 4 MG/ML INJ IV PUSH (20:00)
[2024-03-19 20:34] LABS: Glucose Point of Care 168 mg/dl (65-105)
[2024-03-20] VITALS (28 sets, daily range): BP systolic 115–137; BP diastolic 61–82; PULSE 117–130; RESP 18–31; TEMP 36.9–37.2; O2SAT 90–100
[2024-03-20 00:11] LABS: Glucose Point of Care 164 mg/dl (65-105)
[2024-03-20] MEDS: IPRATROPIUM 0.5 MG/ALBUTEROL SULFATE 2.5 MG AMPUL.NEB 3 ML INHALATION ×4 (02:22→20:24)
[2024-03-20] MEDS: CENTRAL LINE FLUSH 10 ML IV PUSH ×3 (04:43→20:55)
[2024-03-20 05:47] LABS: Hematocrit 28.9 % (42.0-52.0); Hemoglobin 8.6 g/dL (14.0-18.0); Mean Corpuscular HGB Conc 29.8 g/dl (32-36); Mean Corpuscular Hemoglobin 27.7 pg (26-34); Mean Corpuscular Volume 92.9 fl (80-100); Mean Platelet Volume 10.1 fl (7.4-10.4); Platelet Count Result 319 k/mm3 (150-375); Red Blood Count 3.11 M/mm3 (4.6-6.20); Red Cell Distribution Width 18.4 % (11.5-14.5); White Blood Count 12.9 K/mm3 (4.5-10.0)
[2024-03-20 05:57] LABS: Alanine Aminotransferase 58 U/L (6-50); Albumin Level 2.7 g/dL (3.5-5.1); Alkaline Phosphatase 220 U/L (38-126); Anion Gap 7 mmol/L (4-12); Aspartate Amino Transferase 36 U/L (17-59); Bilirubin,Total 1.2 mg/dL (0.2-1.3); Blood Urea Nitrogen 21 mg/dL (9-20); Calcium 7.9 mg/dL (8.4-10.2); Carbon Dioxide 29 mmol/L (22-30); Chloride 110 mmol/L (98-107); Estimated CRCL calculation 90 ml/min; Estimated Glomerular Filt Rate > 60; Glucose 185 mg/dL (65-110); Magnesium 2.4 mg/dL (1.6-2.3); Potassium 3.4 mmol/L (3.4-5.0); Sodium 146 mmol/L (137-145)
[2024-03-20 07:46] LABS: Glucose Point of Care 171 mg/dl (65-105)
[2024-03-20] MEDS: ASPIRIN 81 MG CHEWABLE TABLET FEED TUBE (08:24)
[2024-03-20] MEDS: CEFEPIME 2 GM/NS 50 ML 2 GM/50 ML BAG IVPB ×2 (08:24→20:54)
[2024-03-20] MEDS: PANTOPRAZOLE SODIUM IV 40 MG VIAL IV PUSH ×2 (08:24→20:54)
[2024-03-20] MEDS: ALBUMIN HUMAN 5% 250 ML IV CONT (08:42)
--- NOTE | 2024-03-20 09:18 | WPDINTPN ---
Progress Note: A&P Assessment and Plan (1) Acute respiratory failure with hypoxia: Code(s): J96.01 - Acute respiratory failure with hypoxia Status: Acute Assessment and Plan: Acute respiratory failure likely related to cardiac arrest, aspiration pneumonia, NSTEMI, hypoxia, septic shock Worsening likely secondary to ARDS versus pulmonary edema Intubated 02/27 02/28 Chest CTA: Extensive right upper lobe consolidation and more mild right middle lobe consolidation, consistent with pneumonia. Consider aspiration pneumonia.Moderate to large right pleural effusion with complete atelectasis of the right lower lobe. Moderate left pleural effusion with minimal left basilar atelectasis. Small pericardial effusion. No definite acute abnormality in the abdomen or pelvis. Chronic compression fractures, as above . -03/07 right thoracentesis with 1 L fluid removed -03/08 left-sided thoracentesis 550 mL -03/11: patient was in pressure support ventilation 02/18, with decrease tidal volumes in the upper 200s. place patient back on CMV, I have asked the bedside RN to decrease the Precedex infusion once patient is more awake will place back on spontaneous breathing trials 03/12: Place patient on SBT 04/17, low tidal volumes, low respiratory rate. Patient had replaced back on CMV mode of ventilation. -even on ASV patient is breathing only 7-8 times a minute 03/13: Off Precedex infusion overnight, placed patient on pressure support ventilation 04/17, initially did well but not significantly tachycardic and tachypneic and in respiratory distress, patient was placed back on CMV mode of ventilation and low-dose was 03/14 8/5 PSV SBT done for more than 1 hour. RSBI, ABG and Vitals acceptable. Pt awake and following commands. Patient was extubated. Initially patient did well and was on nasal cannula and was able to communicate. Over 12 hours patient became more hypoxic with increased respiratory distress and tachypnea. I spoke to patient post extubation and was agreeable to re-intubation if needed and stated that 'he is not ready to ' and 'do what ever it takes'. He was re intubated at night. I also mentioned to him that he may need tracheostomy and PEG tube placement if he gets we intubated and is not weanable. He told me 'to proceed with it if needed'. Solu-Medrol IV given for airway edema and will be continued for 24 hours -completed course of Solu-Medrol -continue bronchodilators -CT scan shows large pleural effusions bilaterally. I will request IR for thoracentesis.. Patient is on minimal ventilator setting but has failed trials initially multiple times and then once extubated he was reintubated within 12 hours. I will treat try again after thoracentesis to see patient is weanable from the vent otherwise will proceed with trach and PEG as patient has been on ventilator for more than 2 weeks. 03/17 right thoracentesis 1 L fluid was removed 03/18 left thoracentesis 550 mL fluid was removed Will also continue diuretics. 03/19 patient was extubated after weaning trial 03/20 continue nasal cannula, BiPAP p.r.n., hold diuretics, incentive spirometry, spoke to patient after extubation yesterday he is willing to be intubated if needed and proceed with trach and PEG if needed hopefully we can avoid that situation (2) Elevated LFTs: Code(s): R79.89 - Other specified abnormal findings of blood chemistry Status: Acute Assessment and Plan: 03/13: Significant elevation in LFTs, AST 2280, ALT 988, alk-phos 722 -patient has been hemodynamically stable, no hypotension noted in the last 24-48 hours -statin discontinued. Hold Tylenol -no tenderness in the right upper, lower quadrant or epigastric region on exam -negative vital hepatitis panel, right upper quadrant ultrasound with Doppler negative for hepatic or portal vein thrombosis -patient evaluated by GI -levels improving. Monitor (3) Cardiac arrest with pulseless electrical activity: Code(s): I46.9 - Cardiac arrest, cause unspecified Status: Acute Assessment and Plan: Cardiac arrest, secondary to unknown etiology. Possible aspiration pneumonia, NSTEMI, hypoxia, septic shock, infection -see code blue sheet for the details -patient currently intubated, vasopressors for blood pressure support have been weaned off -appreciate cardiology following the patient 02/29/2024 echocardiogram Summary 1. Technically difficult study with limited views. 2. Left ventricular chamber dimension is normal. 3. Left ventricular systolic function is mildly reduced, estimated at 45-50%. The apex appears to be hypokinetic. 4. There is mildly increased left ventricular wall thickness. 5. The left ventricular diastolic function is grade I diastolic dysfunction. 6. Right ventricular systolic function is normal. 7. Left atrial chamber dimension is moderately enlarged. 8. There is mild to moderate tricuspid valve regurgitation. 9. There is small anterior pericardial effusion. (4) Septic shock: Code(s): A41.9 - Sepsis, unspecified organism; R65.21 - Severe sepsis with septic shock Status: Acute Assessment and Plan: Resolved Patient in shock, likely related to the gangrene, aspiration pneumonia, status post cardiac arrest 02/28/2024: Blood cultures have been obtained and negative Off vasopressors and IV fluids Status post 10 days of antibiotics 03/16 low-grade fever increase in WBC CT scan as above, repeat blood cultures and sputum pending UA suggestive of UTI. Urine cultures pending. Ha has been changed. Continue cefepime (5) NSTEMI (non-ST elevated myocardial infarction): Code(s): I21.4 - Non-ST elevation (NSTEMI) myocardial infarction Status: Acute Assessment and Plan: -appreciate cardiology evaluation and recommendation -Continue aspirin and high-dose a statin -will hold Brilinta. Resumption per General surgery - beta-brayden, losartan are on hold due to soft blood pressure. Will resume beta-brayden -03/02 heparin infusion was discontinued after 48 hours for NSTEMI by cardiology (6) Gangrene of right foot: Code(s): I96 - Gangrene, not elsewhere classified Status: Acute Assessment and Plan: CTA showed peripheral arterial disease with total occlusion of the right anterior and posterior tibial arteries and right peroneal artery with distal reconstitution of peroneal artery. This extensive gangrene of the right foot with gas seen on CT of the foot. General surgery spoke to the patient in the ER on the day of admission on 02/27 patient at that time agreed for below-knee amputation. Plan was to do a below-knee amputation on 02/29/2024 but patient had a cardiac arrest that night secondary to sepsis. Surgery at that time was deferred. Patient now is intubated sedated and unable to sign his consent.. Patient has no family and [facility]. He has 1 son which no one has been able to get hold off right several attempts. Considering patient has gangrene of the foot with no vascular supply leading to sepsis and if untreatable lead to his , Dr. Johns will proceed with amputation today, 03/05/2024. Dr. Collins and Dr. Johns has signed 2 physician consent considering patient's clearly expressed wishes prior to cardiac arrest at the time of admission, his current situation and inability to sign the consent form by himself at this time. 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 -complete 5 days of clindamycin 03/13: Discussed with surgery, there is flexion contractures of his amputation which may hinder in him getting prosthetics, patient may require above knee amputation (7) Osteomyelitis of toe of right foot: Code(s): M86.9 - Osteomyelitis, unspecified Status: Chronic Assessment and Plan: As above (8) Peripheral vascular disease: Code(s): I73.9 - Peripheral vascular disease, unspecified Status: Chronic Assessment and Plan: Patient has history of peripheral vascular disease, coronary artery disease -started on aspirin, patient will require Brilinta since he had a STEMI in 2020 but currently holding Brilinta due to surgery and bleeding (9) Type 2 diabetes mellitus: Qualifiers: 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 complication status: with other specified complication 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 long term care social worker insulin use: with usp use Qualified Code(s): E11.69 - Type 2 diabetes mellitus with other specified complication; Z79.4 - rn long term care (current) use of insulin Code(s): E11.9 - Type 2 diabetes mellitus without complications Status: Acute Assessment and Plan: Currently on sliding scale insulin, Accu-Cheks Hemoglobin A1c this admission is 8.2 Lantus is on hold (10) Chronic obstructive pulmonary disease: Code(s): J44.9 - Chronic obstructive pulmonary disease, unspecified Status: Chronic Assessment and Plan: Continue DuoNebs -continue Symbicort (11) Electrolyte abnormality: Code(s): E87.8 - Other disorders of electrolyte and fluid balance, not elsewhere classified Status: Acute Assessment and Plan: Hypernatremia, hold diuretics (12) Ileus: Code(s): K56.7 - Ileus, unspecified Status: Acute Assessment and Plan: CT scan shows significant amount of tube feeds collected in the stomach. Patient also had high residuals. Patient has already been on Reglan. Bowel sounds are present but decreased. Tube feeds are now off (13) Sinus tachycardia: Code(s): R00.0 - Tachycardia, unspecified Status: Acute Assessment and Plan: Does not appear in any respiratory distress. Continue BiPAP p.r.n.. Will give small amount of albumin 5% treat any possible intravascular volume depletion since patient has been receiving diuretics. Start beta-brayden once patient is able to take p.o. and blood pressure allows. Plan DVT prophylaxis: Heparin subQ Stress ulcer prophylaxis: Protonix Nutrition: npo. Will check swallow evaluation today Code Status: Full code. Consult speech for swallow evaluation. Incentive spirometry. Consult PT OT. 03/15 Patient has no family available. Patient was extubated on 03/14 and I spoke to patient post extubation. I mentioned possibility of him needing re-intubation and he was agreeable stating that he is not ready to at this time. He stated that do whatever needs to be done to keep me alive. I also mentioned to him that if he gets reintubated and is unable to be weaned he will need tracheostomy and PEG tube placement and he states that he is agreeable to do it if needed. He did mention that he has some nephews in area which can be contacted. electronic funds transfer coordinator was provided that information. 03/19 I confirmed with patient again regarding his code status he is willing to get reintubated if needed and is willing to proceed with trach and PEG if needed. He wishes to be full code. Critical Care Time Spent: 30 minutes Due to a high probability of clinically significant, life threatening deterioration, the patient required my highest level of preparedness to intervene emergently and I personally spent this critical care time directly and personally managing the patient. This critical care time included obtaining a history; examining the patient; pulse oximetry; ordering and review of studies; arranging urgent treatment with development of a management plan; evaluation of patient's response to treatment; frequent reassessment; and discussions with other providers. It was exclusive of separately billable procedures and treating other patients and teaching time. Please see Assessment and Plan section and the rest of the note for further information on patient assessment and treatment This dictation may have been done utilizing a voice recognition system. Attempts have been made to correct errors. However, there may be uncorrected grammatical, spelling, and recognitions errors present. Subjective Date/time seen: 03/20/24 Patient was extubated yesterday and was placed on BiPAP at night. On BiPAP this morning. Denies any chest pain shortness a breath abdominal pain nausea vomiting but completed with system was not obtained as patient was on BiPAP. Overnight patient had sinus tachycardia but blood pressure was adequate. He received morphine for pain Good urine output npo Afebrile Interval history: Reason for consult: Status post PEA arrest, right foot gangrene with cellulitis, shock 02/27: Intubated 03/05:Right below-knee amputation with placement of posterior Ortho Glass splint 03/14: extubated and reintubated 03/17 right-sided thoracentesis and 1 L fluid was removed 03/18: Left thoracentesis and 550 mL fluid was removed 03/19 extubated Review of Systems Review of Systems: All systems reviewed & are unremarkable except as noted in HPI and below (HPI) Exam Narrative: General: Patient alert awake no acute distress HEENT:, pupils are equal and reactive from a sclera is clear Neck:? supple Respiratory:? Coarse breath sounds bilaterally, decreased at bases, adequate air entry, no wheezing Cardiac:? S1-S2 normal, regular rate and rhythm Abdomen:? Soft, nontender, nondistended, bowel sounds are decreased but present Extremities:? Right BKA stump under the dressing. Left dorsalis pedis is dopplerable Neuro:? Patient is awake alert follows simple commands with all extremities. He is partially oriented. He is overall generalized weak Skin:? Patient has maceration of his perianal area, pressure ulcer on his buttocks. Psych:? Normal speech and affect Objective Data Vital Signs Vital Signs: Vital Signs - 24 hr 03/19/24 09:25 03/19/24 09:20 03/19/24 10:00 Temperature Pulse Rate 95 86 104 H Respiratory Rate 20 15 Blood Pressure Pulse Oximetry 90 Oxygen Delivery Nasal Cannula Oxygen Flow Rate 3 Fraction of Inspired Oxygen 03/19/24 10:00 03/19/24 10:00 03/19/24 11:38 Temperature 37.1 C Pulse Rate 98 98 112 H Respiratory Rate 18 Blood Pressure 129/62 129/62 135/85 Pulse Oximetry 91 Oxygen Delivery Oxygen Flow Rate Fraction of Inspired Oxygen 03/19/24 11:50 03/19/24 12:00 03/19/24 12:00 Temperature 37.3 C Pulse Rate 108 H 108 H 108 H Respiratory Rate 20 20 Blood Pressure 134/61 Pulse Oximetry 94 89 L 89 L Oxygen Delivery Nasal Cannula Nasal Cannula Oxygen Flow Rate 3 3 Fraction of Inspired Oxygen 03/19/24 12:00 03/19/24 14:10 03/19/24 14:10 Temperature Pulse Rate 110 H 97 Respiratory Rate 20 Blood Pressure Pulse Oximetry 92 Oxygen Delivery Nasal Cannula Oxygen Flow Rate 4 Fraction of Inspired Oxygen 03/19/24 14:20 03/19/24 14:00 03/19/24 14:00 Temperature 37.3 C Pulse Rate 116 H 116 H 117 H Respiratory Rate 20 22 H Blood Pressure 134/65 Pulse Oximetry 88 L Oxygen Delivery Oxygen Flow Rate Fraction of Inspired Oxygen 03/19/24 16:00 03/19/24 16:00 03/19/24 16:00 Temperature 37.3 C Pulse Rate 116 H 120 H 119 H Respiratory Rate 20 20 Blood Pressure 125/64 Pulse Oximetry 92 92 Oxygen Delivery Nasal Cannula Oxygen Flow Rate 3 Fraction of Inspired Oxygen 03/19/24 18:00 03/19/24 18:00 03/19/24 19:43 Temperature 37.6 C Pulse Rate 125 H 126 H Respiratory Rate 21 H Blood Pressure 132/65 Pulse Oximetry 91 96 Oxygen Delivery BiPAP Oxygen Flow Rate Fraction of Inspired Oxygen 45 03/19/24 19:50 03/19/24 19:58 03/19/24 19:59 Temperature 37.7 C H Pulse Rate 129 H 129 H 137 H Respiratory Rate 20 20 26 H Blood Pressure 137/74 Pulse Oximetry 96 95 Oxygen Delivery BiPAP Oxygen Flow Rate Fraction of Inspired Oxygen 03/19/24 20:05 03/19/24 20:00 03/19/24 22:00 Temperature Pulse Rate 129 H 128 H 126 H Respiratory Rate 20 Blood Pressure Pulse Oximetry Oxygen Delivery Oxygen Flow Rate Fraction of Inspired Oxygen 03/19/24 22:00 03/19/24 22:55 03/19/24 23:58 Temperature Pulse Rate 127 H 127 H Respiratory Rate 22 H 25 H Blood Pressure 127/72 Pulse Oximetry 98 99 96 Oxygen Delivery BiPAP BiPAP Oxygen Flow Rate Fraction of Inspired Oxygen 35 03/20/24 00:00 03/20/24 00:00 03/20/24 02:00 Temperature 37.1 C Pulse Rate 124 H 123 H 120 H Respiratory Rate 20 Blood Pressure 126/73 Pulse Oximetry 96 Oxygen Delivery Oxygen Flow Rate Fraction of Inspired Oxygen 03/20/24 02:00 03/20/24 02:22 03/20/24 02:29 Temperature Pulse Rate 120 H 121 H 120 H Respiratory Rate 20 21 H 22 H Blood Pressure 121/65 Pulse Oximetry 97 Oxygen Delivery Oxygen Flow Rate Fraction of Inspired Oxygen 03/20/24 02:22 03/20/24 04:00 03/20/24 04:00 Temperature Pulse Rate 121 H 126 H Respiratory Rate 21 H Blood Pressure Pulse Oximetry 98 97 Oxygen Delivery BiPAP BiPAP Oxygen Flow Rate Fraction of Inspired Oxygen 30 03/20/24 04:00 03/20/24 05:39 03/20/24 06:00 Temperature 36.9 C Pulse Rate 126 H 119 H 117 H Respiratory Rate 20 23 H Blood Pressure 126/69 Pulse Oximetry 97 97 Oxygen Delivery BiPAP Oxygen Flow Rate Fraction of Inspired Oxygen 03/20/24 06:00 03/20/24 07:45 03/20/24 07:48 Temperature Pulse Rate 117 H 121 H 121 H Respiratory Rate 18 20 20 Blood Pressure 129/73 Pulse Oximetry 95 96 Oxygen Delivery BiPAP Oxygen Flow Rate Fraction of Inspired Oxygen 03/20/24 08:05 03/20/24 08:00 Temperature 36.9 C Pulse Rate 123 H Respiratory Rate 22 H Blood Pressure 137/73 Pulse Oximetry 93 96 Oxygen Delivery Nasal Cannula Oxygen Flow Rate 3 Fraction of Inspired Oxygen Intake/Output Intake/Output: Intake & Output 03/17/24 03/18/24 03/19/24 03/20/24 23:59 23:59 23:59 23:59 Intake Total 877.7 1049.5 812.3 Output Total 2200 2850 3300 400 Balance -1322.3 -1800.5 -2487.7 -400 Meds/Results Medications: Active Medications Generic Name Dose Route Start Last Admin Trade Name Freq PRN Reason Stop Dose Admin Acetaminophen 500 mg 03/08/24 10:18 03/13/24 09:24 Acetaminophen 500 Mg Tablet FEED TUBE 500 mg Q6H PRN Administration Pain Rated 1-3 Albuterol/Ipratropium 3 ml 02/29/24 02:00 03/20/24 07:45 Ipratropium 0.5 Mg/Albuterol Sulfate 2.5 Mg Ampul.Neb 3 Ml INHALATION 3 ml Q6HRT JASON Administration Alteplase, Recombinant 2 mg 03/06/24 09:45 03/06/24 13:10 Alteplase 2 Mg Vial (Cathflo) IV PUSH 2 mg ONCE PRN Administration Line Occlusion Aspirin 81 mg 03/09/24 08:00 03/20/24 08:24 Aspirin 81 Mg Chewable Tablet FEED TUBE 81 mg DAILY@0800 JASON Administration Dextrose 12.5 gm 02/28/24 19:23 Dextrose 50% 25 Gm/50 Ml Syringe IV PUSH PRN PRN Hypoglycemia Protocol Glucagon 1 mg 02/28/24 19:23 Glucagon For Inj 1 Mg Vial IM PRN PRN Hypoglycemia Protocol Glucose 15 gm 03/08/24 10:19 Glucose Oral Gel 15 Gm Of Glucse In 37.5 Gm Tube FEED TUBE PRN PRN Hypoglycemia Protocol Heparin Sodium (Porcine) 5,000 units 03/03/24 14:00 03/17/24 06:13 Heparin Sodium 5,000 Units/Ml Vial SUB-Q 5,000 units Q8HR JASON Administration Dextrose 1,000 mls @ 100 mls/hr 02/28/24 19:23 Dextrose 5% 1,000 Ml IVPB PRN PRN Hypoglycemia Protocol Cefepime HCl 2 gm in 50 mls @ 100 mls/hr 03/17/24 09:00 03/20/24 08:24 Maxipime 2 Gm/Ns 50 Ml IVPB 100 mls/hr Q12H JASON Administration Albumin Human 250 mls @ 62.5 mls/hr 03/20/24 08:16 03/20/24 08:42 Albumin Human 5% IV CONT 03/20/24 12:15 62.5 mls/hr .Q4H ONE Administration Insulin Aspart 3 - 6 units 03/15/24 17:00 03/20/24 08:30 Insulin Aspart (*Bkc) 100 Units/Ml SUB-Q Not Given Q4HR [facility] Protocol Insulin Glargine 55 units 03/15/24 09:00 03/16/24 10:44 Insulin Glargine (*Bkc) 100 Units/Ml SUB-Q 55 units DAILY JASON Administration Labetalol HCl 20 mg 03/08/24 10:06 03/08/24 16:48 Labetalol Hcl Inj 100 Mg/20 Ml Vial IV PUSH 20 mg Q4H PRN Administration SBP > 160 and HR> 60 -1st choice Morphine Sulfate 2 mg 03/19/24 19:39 Morphine Sulfate (*Crx) 2 Mg/Ml Inj IV PUSH Q2HR PRN Pain Rated 7-10 Pantoprazole Sodium 40 mg 03/02/24 09:00 03/20/24 08:24 Pantoprazole Sodium Iv 40 Mg Vial IV PUSH 40 mg Q12HR JASON Administration Sodium Chloride 10 ml 02/29/24 06:00 03/20/24 04:43 Central Line Flush IV PUSH 10 ml Q8HR JASON Administration Sodium Chloride 20 ml 02/28/24 23:37 Central Line Flush IV PUSH PRN PRN after blood draws Radiology Results: ITS Impressions Lower Extremity CTA 02/28/24 14:54 IMPRESSION: 1. 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 2. Moderate stenosis of right popliteal artery. 3. Osteomyelitis involving first proximal and distal phalanges and head of first metatarsal. Head CT 02/29/24 05:55 Impression: No intracranial hemorrhage, mass, or acute infarct. Stable chronic encephalomalacia in the high left parietal lobe. Atrophy and chronic white matter changes, as above. Chest/Abdomen/Pelvis CTA 02/29/24 06:02 Impression: Extensive right upper lobe consolidation and more mild right middle lobe consolidation, consistent with pneumonia. Consider aspiration pneumonia. Moderate to large right pleural effusion with complete atelectasis of the right lower lobe. Moderate left pleural effusion with minimal left basilar atelectasis. Small pericardial effusion. No definite acute abnormality in the abdomen or pelvis. Chronic compression fractures, as above. Renal Ultrasound 03/03/24 15:45 IMPRESSION: 1. Normal kidneys without hydronephrosis. 2. Small amount of ascites in the abdomen and pelvis. Venous Doppler Study 03/11/24 13:58 IMPRESSION: 1. Patent bilateral upper extremity veins. No evidence of venous thrombosis. Abdomen Ultrasound 03/13/24 16:52 IMPRESSION: 1. No etiology for abnormal liver function tests. 2. Normal hepatic veins and main portal vein. Right and left portal veins and proper hepatic artery not evaluated. 3. Right pleural effusion. Vascular Ultrasound 03/13/24 16:52 IMPRESSION: 1. No etiology for abnormal liver function tests. 2. Normal hepatic veins and main portal vein. Right and left portal veins and proper hepatic artery not evaluated. 3. Right pleural effusion. Abdomen X-Ray 03/16/24 19:53 IMPRESSION: Orogastric tube in satisfactory position in the stomach Chest/Abdomen/Pelvis CT 03/16/24 21:51 IMPRESSION: Anasarca Large pleural effusions with prominent compressive atelectasis of the lower lobes especially, dependent atelectasis of the middle and upper lobes Heart size. Prominent coronary artery atherosclerotic calcifications Minimal pericardial effusion Prominent diffuse thickening of urinary bladder wall suggesting cystitis area Ha catheter in bladder lumen Very prominent amount of fluid and large fluid level within the stomach despite presence of NG tube T11 and L1 moderate anterior wedge compression fractures, likely chronic Thoracentesis Ultrasound 03/18/24 10:27 IMPRESSION: 1. Successful ultrasound-guided thoracentesis yielding 550 mL of doris-colored fluid. Chest X-Ray 03/20/24 08:55 IMPRESSION: 1. Moderate-sized pleural effusions with worsening on the left. 2. Worsened airspace opacities in the perihilar regions and at the lung bases, consistent with atelectasis versus pneumonia. Labs Labs: Laboratory Results - last 24 hr 03/19/24 03/19/24 03/19/24 11:51 16:39 20:31 WBC RBC Hgb Hct MCV MCH MCHC RDW Plt Count MPV Sodium Potassium Chloride Carbon Dioxide Anion Gap BUN Creatinine Estim Creat Clear Calc Estimated GFR Glucose POC Capillary Glucose 163 H 142 H 168 H Calcium Magnesium Total Bilirubin AST ALT Alkaline Phosphatase Total Protein Albumin 03/20/24 03/20/24 03/20/24 00:08 05:19 07:42 WBC 12.9 H RBC 3.11 L Hgb 8.6 L Hct 28.9 L MCV 92.9 MCH 27.7 MCHC 29.8 L RDW 18.4 H Plt Count 319 MPV 10.1 Sodium 146 H Potassium 3.4 Chloride 110 H Carbon Dioxide 29 Anion Gap 7 BUN 21 H Creatinine 0.80 Estim Creat Clear Calc 90 Estimated GFR > 60 Glucose 185 H POC Capillary Glucose 164 H 171 H Calcium 7.9 L Magnesium 2.4 H Total Bilirubin 1.2 AST 36 ALT 58 H Alkaline Phosphatase 220 H Total Protein 6.0 L Albumin 2.7 L Quality VTE Prophylaxis VTE prophylaxis: pharmacologic ordered
--- NOTE | 2024-03-20 10:09 | PCSTNOTE ---
Please refer to the Bedside Swallow Evaluation in the EMR. Please note, silent aspiration cannot be ruled out at bedside.
[2024-03-20 11:44] LABS: Glucose Point of Care 235 mg/dl (65-105)
[2024-03-20] MEDS: INSULIN ASPART (*BKC) 100 UNITS/ML SUB-Q (12:02)
--- NOTE | 2024-03-20 13:01 | PCPTNOTE ---
per RN, pt is not appropriate for therapy today, states he still has a femoral line in, will follow
--- NOTE | 2024-03-20 13:35 | PCSTNOTE ---
Cancelled Modified Barium Swallow order due to possible aspiration on the bedside swallow evaluation earlier today. Patient placed back on BiPAP machine. Will discuss with nurse daily when patient will be ready to try again.
--- NOTE | 2024-03-20 13:37 | PCFNICU ---
ICU Rounding Note: Pt current nutrition is NPO. Nutrition recommendation: per MBS evaluation. Last recorded weight is 97.7 kg, stable Bowel Motility: +BM reported 03/19 Labs Reviewed:Mg 2.4, Glu 185, BUN 21, Na 146, Hct 28.9, Hgb 8.6 Meds Noted: Lantus, NovoLog Skin: Stage II pressure ulcer-sacrum, Right BKA Additional Notes: Patient is currently NPO for MBS today. Recommendations pending swallowing evaluation. Following daily in ICU rounds. Will monitor weight, labs, skin, tube feedings, meds, every 3 days.
--- NOTE | 2024-03-20 13:48 | PCOTNOTE ---
OT orders received. Pt currently has bed rest orders active and has a femoral line in. Will continue to follow to see when medically appropriate.
--- NOTE | 2024-03-20 16:12 | PM.IMPN ---
Progress Note: A&P Assessment and Plan (1) Acute respiratory failure with hypoxia: Code(s): J96.01 - Acute respiratory failure with hypoxia Status: Acute Assessment and Plan: Acute respiratory failure likely related to cardiac arrest, aspiration pneumonia, NSTEMI, hypoxia, septic shock Worsening likely secondary to ARDS versus pulmonary edema Intubated 02/27 02/28 Chest CTA: Extensive right upper lobe consolidation and more mild right middle lobe consolidation, consistent with pneumonia. Consider aspiration pneumonia.Moderate to large right pleural effusion with complete atelectasis of the right lower lobe. Moderate left pleural effusion with minimal left basilar atelectasis. Small pericardial effusion. No definite acute abnormality in the abdomen or pelvis. Chronic compression fractures, as above . -03/07 right thoracentesis with 1 L fluid removed -03/08 left-sided thoracentesis 550 mL -03/11: patient was in pressure support ventilation 02/18, with decrease tidal volumes in the upper 200s. place patient back on CMV, I have asked the bedside RN to decrease the Precedex infusion once patient is more awake will place back on spontaneous breathing trials 03/12: Place patient on SBT 04/17, low tidal volumes, low respiratory rate. Patient had replaced back on CMV mode of ventilation. -even on ASV patient is breathing only 7-8 times a minute 03/13: Off Precedex infusion overnight, placed patient on pressure support ventilation 04/17, initially did well but not significantly tachycardic and tachypneic and in respiratory distress, patient was placed back on CMV mode of ventilation and low-dose was 03/14 8/5 PSV SBT done for more than 1 hour. RSBI, ABG and Vitals acceptable. Pt awake and following commands. Patient was extubated. Initially patient did well and was on nasal cannula and was able to communicate. Over 12 hours patient became more hypoxic with increased respiratory distress and tachypnea. I spoke to patient post extubation and was agreeable to re-intubation if needed and stated that 'he is not ready to ' and 'do what ever it takes'. He was re intubated at night. I also mentioned to him that he may need tracheostomy and PEG tube placement if he gets we intubated and is not weanable. He told me 'to proceed with it if needed'. Solu-Medrol IV given for airway edema and will be continued for 24 hours -completed course of Solu-Medrol -continue bronchodilators -CT scan shows large pleural effusions bilaterally. I will request IR for thoracentesis.. Patient is on minimal ventilator setting but has failed trials initially multiple times and then once extubated he was reintubated within 12 hours. I will treat try again after thoracentesis to see patient is weanable from the vent otherwise will proceed with trach and PEG as patient has been on ventilator for more than 2 weeks. 03/17 right thoracentesis 1 L fluid was removed 03/18 left thoracentesis 550 mL fluid was removed Will also continue diuretics. 03/19 patient was extubated after weaning trial 03/20 continue nasal cannula, BiPAP p.r.n., hold diuretics, incentive spirometry, spoke to patient after extubation yesterday he is willing to be intubated if needed and proceed with trach and PEG if needed hopefully we can avoid that situation (2) Elevated LFTs: Code(s): R79.89 - Other specified abnormal findings of blood chemistry Status: Acute Assessment and Plan: 03/13: Significant elevation in LFTs, AST 2280, ALT 988, alk-phos 722 -patient has been hemodynamically stable, no hypotension noted in the last 24-48 hours -statin discontinued. Hold Tylenol -no tenderness in the right upper, lower quadrant or epigastric region on exam -negative vital hepatitis panel, right upper quadrant ultrasound with Doppler negative for hepatic or portal vein thrombosis -patient evaluated by GI -levels improving. Monitor (3) Cardiac arrest with pulseless electrical activity: Code(s): I46.9 - Cardiac arrest, cause unspecified Status: Acute Assessment and Plan: Cardiac arrest, secondary to unknown etiology. Possible aspiration pneumonia, NSTEMI, hypoxia, septic shock, infection -see code blue sheet for the details -patient currently intubated, vasopressors for blood pressure support have been weaned off -appreciate cardiology following the patient 02/29/2024 echocardiogram Summary 1. Technically difficult study with limited views. 2. Left ventricular chamber dimension is normal. 3. Left ventricular systolic function is mildly reduced, estimated at 45-50%. The apex appears to be hypokinetic. 4. There is mildly increased left ventricular wall thickness. 5. The left ventricular diastolic function is grade I diastolic dysfunction. 6. Right ventricular systolic function is normal. 7. Left atrial chamber dimension is moderately enlarged. 8. There is mild to moderate tricuspid valve regurgitation. 9. There is small anterior pericardial effusion. (4) Septic shock: Code(s): A41.9 - Sepsis, unspecified organism; R65.21 - Severe sepsis with septic shock Status: Acute Assessment and Plan: Resolved Patient in shock, likely related to the gangrene, aspiration pneumonia, status post cardiac arrest 02/28/2024: Blood cultures have been obtained and negative Off vasopressors and IV fluids Status post 10 days of antibiotics 03/16 low-grade fever increase in WBC CT scan as above, repeat blood cultures and sputum pending UA suggestive of UTI. Urine cultures pending. Ha has been changed. Continue cefepime (5) NSTEMI (non-ST elevated myocardial infarction): Code(s): I21.4 - Non-ST elevation (NSTEMI) myocardial infarction Status: Acute Assessment and Plan: -appreciate cardiology evaluation and recommendation -Continue aspirin and high-dose a statin -will hold Brilinta. Resumption per General surgery - beta-brayden, losartan are on hold due to soft blood pressure. Will resume beta-brayden -03/02 heparin infusion was discontinued after 48 hours for NSTEMI by cardiology (6) Gangrene of right foot: Code(s): I96 - Gangrene, not elsewhere classified Status: Acute Assessment and Plan: CTA showed peripheral arterial disease with total occlusion of the right anterior and posterior tibial arteries and right peroneal artery with distal reconstitution of peroneal artery. This extensive gangrene of the right foot with gas seen on CT of the foot. General surgery spoke to the patient in the ER on the day of admission on 02/27 patient at that time agreed for below-knee amputation. Plan was to do a below-knee amputation on 02/29/2024 but patient had a cardiac arrest that night secondary to sepsis. Surgery at that time was deferred. Patient now is intubated sedated and unable to sign his consent.. Patient has no family and for many years at the snf has had no visitor. He has 1 son which no one has been able to get hold off right several attempts. Considering patient has gangrene of the foot with no vascular supply leading to sepsis and if untreatable lead to his , Dr. Johns will proceed with amputation today, 03/05/2024. Dr. Collins and Dr. Johns has signed 2 physician consent considering patient's clearly expressed wishes prior to cardiac arrest at the time of admission, his current situation and inability to sign the consent form by himself at this time. 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 -complete 5 days of clindamycin 03/13: Discussed with surgery, there is flexion contractures of his amputation which may hinder in him getting prosthetics, patient may require above knee amputation (7) Osteomyelitis of toe of right foot: Code(s): M86.9 - Osteomyelitis, unspecified Status: Chronic Assessment and Plan: As above (8) Peripheral vascular disease: Code(s): I73.9 - Peripheral vascular disease, unspecified Status: Chronic Assessment and Plan: Patient has history of peripheral vascular disease, coronary artery disease -started on aspirin, patient will require Brilinta since he had a STEMI in 2020 but currently holding Brilinta due to surgery and bleeding (9) Type 2 diabetes mellitus: Qualifiers: 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 complication status: with other specified complication 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 buttermaker continuous churn insulin use: with jail use Qualified Code(s): E11.69 - Type 2 diabetes mellitus with other specified complication; Z79.4 - buttermaker continuous churn (current) use of insulin Code(s): E11.9 - Type 2 diabetes mellitus without complications Status: Acute Assessment and Plan: Currently on sliding scale insulin, Accu-Cheks Hemoglobin A1c this admission is 8.2 Lantus is on hold (10) Chronic obstructive pulmonary disease: Code(s): J44.9 - Chronic obstructive pulmonary disease, unspecified Status: Chronic Assessment and Plan: Continue DuoNebs -continue Symbicort (11) Electrolyte abnormality: Code(s): E87.8 - Other disorders of electrolyte and fluid balance, not elsewhere classified Status: Acute Assessment and Plan: Hypernatremia, hold diuretics (12) Ileus: Code(s): K56.7 - Ileus, unspecified Status: Acute Assessment and Plan: CT scan shows significant amount of tube feeds collected in the stomach. Patient also had high residuals. Patient has already been on Reglan. Bowel sounds are present but decreased. Tube feeds are now off (13) Sinus tachycardia: Code(s): R00.0 - Tachycardia, unspecified Status: Acute Assessment and Plan: Does not appear in any respiratory distress. Continue BiPAP p.r.n.. Will give small amount of albumin 5% treat any possible intravascular volume depletion since patient has been receiving diuretics. Start beta-brayden once patient is able to take p.o. and blood pressure allows. Subjective Date/time seen: 03/20/24 16:12 Interval history: Off vasopressors. On NC, PRN BiPaP. Off Note: 02/27: Intubated 03/05:Right below-knee amputation with placement of posterior Ortho Glass splint 03/14: extubated and reintubated 03/17 right-sided thoracentesis and 1 L fluid was removed 03/18: Left thoracentesis and 550 mL fluid was removed 03/19 extubated 03/05 status post right BKA 03/17 right thoracentesis 1 L fluid was removed 03/18 left thoracentesis 550 mL fluid was removed Will also continue diuretics. Review of Systems Review of Systems: 12 systems were reviewed and are negative except for as per HPI. All systems reviewed & are unremarkable except as noted in HPI and below (HPI) ROS unobtainable: Yes unobtainable due to endotracheal tube, unobtainable due to medical condition and unobtainable due to mental status Exam Narrative: General: Patient alert awake no acute distress HEENT:, pupils are equal and reactive from a sclera is clear Neck:? supple Respiratory:? Coarse breath sounds bilaterally, decreased at bases, adequate air entry, no wheezing Cardiac:? S1-S2 normal, regular rate and rhythm Abdomen:? Soft, nontender, nondistended, bowel sounds are decreased but present Extremities:? Right BKA stump under the dressing. Left dorsalis pedis is dopplerable Neuro:? Patient is awake alert follows simple commands with all extremities. He is partially oriented. He is overall generalized weak Skin:? Patient has maceration of his perianal area, pressure ulcer on his buttocks. Psych:? Normal speech and affect Objective Data Vital Signs Vital Signs: Vital Signs - 24 hr 03/19/24 18:00 03/19/24 18:00 03/19/24 19:43 Temperature 99.6 F Pulse Rate 125 H 126 H Respiratory Rate 21 H Blood Pressure 132/65 Pulse Oximetry 91 96 Oxygen Delivery BiPAP Oxygen Flow Rate Fraction of Inspired Oxygen 45 03/19/24 19:50 03/19/24 19:58 03/19/24 19:59 Temperature 99.9 F H Pulse Rate 129 H 129 H 137 H Respiratory Rate 20 20 26 H Blood Pressure 137/74 Pulse Oximetry 96 95 Oxygen Delivery BiPAP Oxygen Flow Rate Fraction of Inspired Oxygen 03/19/24 20:05 03/19/24 20:00 03/19/24 22:00 Temperature Pulse Rate 129 H 128 H 126 H Respiratory Rate 20 Blood Pressure Pulse Oximetry Oxygen Delivery Oxygen Flow Rate Fraction of Inspired Oxygen 03/19/24 22:00 03/19/24 22:55 03/19/24 23:58 Temperature Pulse Rate 127 H 127 H Respiratory Rate 22 H 25 H Blood Pressure 127/72 Pulse Oximetry 98 99 96 Oxygen Delivery BiPAP BiPAP Oxygen Flow Rate Fraction of Inspired Oxygen 35 03/20/24 00:00 03/20/24 00:00 03/20/24 02:00 Temperature 98.7 F Pulse Rate 124 H 123 H 120 H Respiratory Rate 20 Blood Pressure 126/73 Pulse Oximetry 96 Oxygen Delivery Oxygen Flow Rate Fraction of Inspired Oxygen 03/20/24 02:00 03/20/24 02:22 03/20/24 02:29 Temperature Pulse Rate 120 H 121 H 120 H Respiratory Rate 20 21 H 22 H Blood Pressure 121/65 Pulse Oximetry 97 Oxygen Delivery Oxygen Flow Rate Fraction of Inspired Oxygen 03/20/24 02:22 03/20/24 04:00 03/20/24 04:00 Temperature Pulse Rate 121 H 126 H Respiratory Rate 21 H Blood Pressure Pulse Oximetry 98 97 Oxygen Delivery BiPAP BiPAP Oxygen Flow Rate Fraction of Inspired Oxygen 30 03/20/24 04:00 03/20/24 05:39 03/20/24 06:00 Temperature 98.5 F Pulse Rate 126 H 119 H 117 H Respiratory Rate 20 23 H Blood Pressure 126/69 Pulse Oximetry 97 97 Oxygen Delivery BiPAP Oxygen Flow Rate Fraction of Inspired Oxygen 03/20/24 06:00 03/20/24 07:45 03/20/24 07:48 Temperature Pulse Rate 117 H 121 H 121 H Respiratory Rate 18 20 20 Blood Pressure 129/73 Pulse Oximetry 95 96 Oxygen Delivery BiPAP Oxygen Flow Rate Fraction of Inspired Oxygen 03/20/24 08:05 03/20/24 08:00 03/20/24 08:00 Temperature 98.5 F Pulse Rate 123 H 123 H Respiratory Rate 22 H 19 Blood Pressure 137/73 Pulse Oximetry 93 96 93 Oxygen Delivery Nasal Cannula Nasal Cannula Oxygen Flow Rate 3 3 Fraction of Inspired Oxygen 03/20/24 10:00 03/20/24 08:06 03/20/24 10:00 Temperature 99.0 F Pulse Rate 130 H 123 H 130 H Respiratory Rate 25 H Blood Pressure 124/71 Pulse Oximetry 91 Oxygen Delivery Oxygen Flow Rate Fraction of Inspired Oxygen 03/20/24 11:01 03/20/24 12:00 03/20/24 12:00 Temperature 98.4 F Pulse Rate 123 H 119 H 119 H Respiratory Rate 23 H 24 H Blood Pressure 122/69 Pulse Oximetry 97 100 Oxygen Delivery BiPAP Oxygen Flow Rate Fraction of Inspired Oxygen 03/20/24 12:00 03/20/24 13:31 03/20/24 13:31 Temperature Pulse Rate 119 H 123 H Respiratory Rate 24 H 22 H Blood Pressure Pulse Oximetry 100 93 Oxygen Delivery BiPAP Nasal Cannula Oxygen Flow Rate 3 Fraction of Inspired Oxygen 30 03/20/24 13:46 03/20/24 14:00 03/20/24 14:00 Temperature 98.7 F Pulse Rate 122 H 126 H 126 H Respiratory Rate 22 H 24 H Blood Pressure 115/61 Pulse Oximetry 93 Oxygen Delivery Oxygen Flow Rate Fraction of Inspired Oxygen Intake/Output Intake/Output: Intake & Output 03/17/24 03/18/24 03/19/24 03/20/24 23:59 23:59 23:59 23:59 Intake Total 877.7 1049.5 812.3 Output Total 2200 2850 3300 400 Balance -1322.3 -1800.5 -2487.7 -400 Meds/Results Medications: Active Medications Generic Name Dose Route Start Last Admin Trade Name Freq PRN Reason Stop Dose Admin Acetaminophen 500 mg 03/08/24 10:18 03/13/24 09:24 Acetaminophen 500 Mg Tablet FEED TUBE 500 mg Q6H PRN Administration Pain Rated 1-3 Albuterol/Ipratropium 3 ml 02/29/24 02:00 03/20/24 13:31 Ipratropium 0.5 Mg/Albuterol Sulfate 2.5 Mg Ampul.Neb 3 Ml INHALATION 3 ml Q6HRT JASON Administration Alteplase, Recombinant 2 mg 03/06/24 09:45 03/06/24 13:10 Alteplase 2 Mg Vial (Cathflo) IV PUSH 2 mg ONCE PRN Administration Line Occlusion Aspirin 81 mg 03/09/24 08:00 03/20/24 08:24 Aspirin 81 Mg Chewable Tablet FEED TUBE 81 mg DAILY@0800 JASON Administration Dextrose 12.5 gm 02/28/24 19:23 Dextrose 50% 25 Gm/50 Ml Syringe IV PUSH PRN PRN Hypoglycemia Protocol Glucagon 1 mg 02/28/24 19:23 Glucagon For Inj 1 Mg Vial IM PRN PRN Hypoglycemia Protocol Glucose 15 gm 03/08/24 10:19 Glucose Oral Gel 15 Gm Of Glucse In 37.5 Gm Tube FEED TUBE PRN PRN Hypoglycemia Protocol Heparin Sodium (Porcine) 5,000 units 03/03/24 14:00 03/17/24 06:13 Heparin Sodium 5,000 Units/Ml Vial SUB-Q 5,000 units Q8HR JASON Administration Dextrose 1,000 mls @ 100 mls/hr 02/28/24 19:23 Dextrose 5% 1,000 Ml IVPB PRN PRN Hypoglycemia Protocol Cefepime HCl 2 gm in 50 mls @ 100 mls/hr 03/17/24 09:00 03/20/24 08:24 Maxipime 2 Gm/Ns 50 Ml IVPB 03/23/24 21:29 100 mls/hr Q12H JASON Administration Insulin Aspart 3 - 6 units 03/15/24 17:00 03/20/24 12:02 Insulin Aspart (*Bkc) 100 Units/Ml SUB-Q 3 units Q4HR JASON Administration Protocol Insulin Glargine 55 units 03/15/24 09:00 03/16/24 10:44 Insulin Glargine (*Bkc) 100 Units/Ml SUB-Q 55 units DAILY JASON Administration Labetalol HCl 20 mg 03/08/24 10:06 03/08/24 16:48 Labetalol Hcl Inj 100 Mg/20 Ml Vial IV PUSH 20 mg Q4H PRN Administration SBP > 160 and HR> 60 -1st choice Morphine Sulfate 2 mg 03/19/24 19:39 Morphine Sulfate (*Crx) 2 Mg/Ml Inj IV PUSH Q2HR PRN Pain Rated 7-10 Pantoprazole Sodium 40 mg 03/02/24 09:00 03/20/24 08:24 Pantoprazole Sodium Iv 40 Mg Vial IV PUSH 40 mg Q12HR JASON Administration Sodium Chloride 10 ml 10/18/24 06:00 03/20/24 12:04 Central Line Flush IV PUSH 10 ml Q8HR JASON Administration Sodium Chloride 20 ml 02/28/24 23:37 Central Line Flush IV PUSH PRN PRN after blood draws Radiology Results: ITS Impressions Lower Extremity CTA 02/28/24 14:54 IMPRESSION: 1. 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 2. Moderate stenosis of right popliteal artery. 3. Osteomyelitis involving first proximal and distal phalanges and head of first metatarsal. Head CT 02/29/24 05:55 Impression: No intracranial hemorrhage, mass, or acute infarct. Stable chronic encephalomalacia in the high left parietal lobe. Atrophy and chronic white matter changes, as above. Chest/Abdomen/Pelvis CTA 02/29/24 06:02 Impression: Extensive right upper lobe consolidation and more mild right middle lobe consolidation, consistent with pneumonia. Consider aspiration pneumonia. Moderate to large right pleural effusion with complete atelectasis of the right lower lobe. Moderate left pleural effusion with minimal left basilar atelectasis. Small pericardial effusion. No definite acute abnormality in the abdomen or pelvis. Chronic compression fractures, as above. Renal Ultrasound 03/03/24 15:45 IMPRESSION: 1. Normal kidneys without hydronephrosis. 2. Small amount of ascites in the abdomen and pelvis. Venous Doppler Study 03/11/24 13:58 IMPRESSION: 1. Patent bilateral upper extremity veins. No evidence of venous thrombosis. Abdomen Ultrasound 03/13/24 16:52 IMPRESSION: 1. No etiology for abnormal liver function tests. 2. Normal hepatic veins and main portal vein. Right and left portal veins and proper hepatic artery not evaluated. 3. Right pleural effusion. Vascular Ultrasound 03/13/24 16:52 IMPRESSION: 1. No etiology for abnormal liver function tests. 2. Normal hepatic veins and main portal vein. Right and left portal veins and proper hepatic artery not evaluated. 3. Right pleural effusion. Abdomen X-Ray 03/16/24 19:53 IMPRESSION: Orogastric tube in satisfactory position in the stomach Chest/Abdomen/Pelvis CT 03/16/24 21:51 IMPRESSION: Anasarca Large pleural effusions with prominent compressive atelectasis of the lower lobes especially, dependent atelectasis of the middle and upper lobes Heart size. Prominent coronary artery atherosclerotic calcifications Minimal pericardial effusion Prominent diffuse thickening of urinary bladder wall suggesting cystitis area Ha catheter in bladder lumen Very prominent amount of fluid and large fluid level within the stomach despite presence of NG tube T11 and L1 moderate anterior wedge compression fractures, likely chronic Thoracentesis Ultrasound 03/18/24 10:27 IMPRESSION: 1. Successful ultrasound-guided thoracentesis yielding 550 mL of doris-colored fluid. Chest X-Ray 03/20/24 08:55 IMPRESSION: 1. Moderate-sized pleural effusions with worsening on the left. 2. Worsened airspace opacities in the perihilar regions and at the lung bases, consistent with atelectasis versus pneumonia. Labs Labs: Laboratory Results - last 24 hr 03/19/24 03/19/24 03/20/24 16:39 20:31 00:08 WBC RBC Hgb Hct MCV MCH MCHC RDW Plt Count MPV Sodium Potassium Chloride Carbon Dioxide Anion Gap BUN Creatinine Estim Creat Clear Calc Estimated GFR Glucose POC Capillary Glucose 142 H 168 H 164 H Calcium Magnesium Total Bilirubin AST ALT Alkaline Phosphatase Total Protein Albumin 03/20/24 03/20/24 03/20/24 05:19 07:42 11:41 WBC 12.9 H RBC 3.11 L Hgb 8.6 L Hct 28.9 L MCV 92.9 MCH 27.7 MCHC 29.8 L RDW 18.4 H Plt Count 319 MPV 10.1 Sodium 146 H Potassium 3.4 Chloride 110 H Carbon Dioxide 29 Anion Gap 7 BUN 21 H Creatinine 0.80 Estim Creat Clear Calc 90 Estimated GFR > 60 Glucose 185 H POC Capillary Glucose 171 H 235 H Calcium 7.9 L Magnesium 2.4 H Total Bilirubin 1.2 AST 36 ALT 58 H Alkaline Phosphatase 220 H Total Protein 6.0 L Albumin 2.7 L Quality VTE Prophylaxis VTE prophylaxis: pharmacologic ordered
[2024-03-20 16:37] LABS: Glucose Point of Care 164 mg/dl (65-105)
[2024-03-20 20:54] LABS: Glucose Point of Care 184 mg/dl (65-105)
[2024-03-21] VITALS (26 sets, daily range): BP systolic 114–142; BP diastolic 64–81; PULSE 111–124; RESP 18–27; TEMP 36.7–37.3; O2SAT 95–100
[2024-03-21] MEDS: INSULIN ASPART (*BKC) 100 UNITS/ML SUB-Q ×3 (00:04→20:17)
[2024-03-21] MEDS: MORPHINE SULFATE (*CRX) 2 MG/ML INJ IV PUSH ×3 (00:05→20:36)
[2024-03-21 00:19] LABS: Glucose Point of Care 207 mg/dl (65-105)
[2024-03-21] MEDS: IPRATROPIUM 0.5 MG/ALBUTEROL SULFATE 2.5 MG AMPUL.NEB 3 ML INHALATION ×4 (02:13→20:37)
[2024-03-21] MEDS: CENTRAL LINE FLUSH 10 ML IV PUSH ×6 (04:05→20:42)
[2024-03-21 05:02] LABS: Hematocrit 29.1 % (42.0-52.0); Hemoglobin 8.7 g/dL (14.0-18.0); Mean Corpuscular HGB Conc 29.9 g/dl (32-36); Mean Corpuscular Hemoglobin 28.2 pg (26-34); Mean Corpuscular Volume 94.2 fl (80-100); Mean Platelet Volume 9.7 fl (7.4-10.4); Platelet Count Result 337 k/mm3 (150-375); Red Blood Count 3.09 M/mm3 (4.6-6.20); Red Cell Distribution Width 19.2 % (11.5-14.5); White Blood Count 10.8 K/mm3 (4.5-10.0)
[2024-03-21 05:25] LABS: Alanine Aminotransferase 47 U/L (6-50); Albumin Level 2.9 g/dL (3.5-5.1); Alkaline Phosphatase 191 U/L (38-126); Anion Gap 7 mmol/L (4-12); Aspartate Amino Transferase 36 U/L (17-59); Blood Urea Nitrogen 19 mg/dL (9-20); Calcium 8.1 mg/dL (8.4-10.2); Carbon Dioxide 29 mmol/L (22-30); Chloride 113 mmol/L (98-107); Estimated CRCL calculation 90 ml/min; Estimated Glomerular Filt Rate > 60; Glucose 193 mg/dL (65-110); Magnesium 2.4 mg/dL (1.6-2.3); Potassium 3.4 mmol/L (3.4-5.0); Sodium 149 mmol/L (137-145)
[2024-03-21] MEDS: LIDOCAINE HCL 1% PF INJ 5 ML VIAL INFILTRATE (08:30)
--- NOTE | 2024-03-21 08:32 | P.PNINT_ITS ---
Progress Note: A&P Assessment and Plan (1) Acute respiratory failure with hypoxia: Code(s): J96.01 - Acute respiratory failure with hypoxia Status: Acute Assessment and Plan: Acute respiratory failure likely related to cardiac arrest, aspiration pneumonia, NSTEMI, hypoxia, septic shock Worsening likely secondary to ARDS versus pulmonary edema Intubated 02/27 02/28 Chest CTA: Extensive right upper lobe consolidation and more mild right middle lobe consolidation, consistent with pneumonia. Consider aspiration pneumonia.Moderate to large right pleural effusion with complete atelectasis of the right lower lobe. Moderate left pleural effusion with minimal left basilar atelectasis. Small pericardial effusion. No definite acute abnormality in the abdomen or pelvis. Chronic compression fractures, as above . -03/07 right thoracentesis with 1 L fluid removed -03/08 left-sided thoracentesis 550 mL -03/11: patient was in pressure support ventilation 02/18, with decrease tidal volumes in the upper 200s. place patient back on CMV, I have asked the bedside RN to decrease the Precedex infusion once patient is more awake will place back on spontaneous breathing trials 03/12: Place patient on SBT 04/17, low tidal volumes, low respiratory rate. Patient had replaced back on CMV mode of ventilation. -even on ASV patient is breathing only 7-8 times a minute 03/13: Off Precedex infusion overnight, placed patient on pressure support ventilation 04/17, initially did well but not significantly tachycardic and tachypneic and in respiratory distress, patient was placed back on CMV mode of ventilation and low-dose was 03/14 8/5 PSV SBT done for more than 1 hour. RSBI, ABG and Vitals acceptable. Pt awake and following commands. Patient was extubated. Initially patient did well and was on nasal cannula and was able to communicate. Over 12 hours patient became more hypoxic with increased respiratory distress and tachypnea. I spoke to patient post extubation and was agreeable to re-intubation if needed and stated that 'he is not ready to ' and 'do what ever it takes'. He was re intubated at night. I also mentioned to him that he may need tracheostomy and PEG tube placement if he gets we intubated and is not weanable. He told me 'to proceed with it if needed'. Solu-Medrol IV given for airway edema and will be continued for 24 hours -completed course of Solu-Medrol -continue bronchodilators -CT scan shows large pleural effusions bilaterally. I will request IR for thoracentesis.. Patient is on minimal ventilator setting but has failed trials initially multiple times and then once extubated he was reintubated within 12 hours. I will treat try again after thoracentesis to see patient is weanable from the vent otherwise will proceed with trach and PEG as patient has been on ventilator for more than 2 weeks. 03/17 right thoracentesis 1 L fluid was removed 03/18 left thoracentesis 550 mL fluid was removed Will also continue diuretics. 03/19 patient was extubated after weaning trial 03/20 continue nasal cannula, BiPAP p.r.n., hold diuretics, incentive spirometry, spoke to patient after extubation yesterday he is willing to be intubated if needed and proceed with trach and PEG if needed hopefully we can avoid that situation 03/21 patient continues to require BiPAP intermittently and tolerates nasal cannula. He appears quite weak although he does have borderline cough. Cont inue incentive spirometry. P.r.n. BiPAP. BiPAP at night. Nasal cannula as tolerated. Patient remains at risk of requiring intubation. I spoke to patient again and mention that to him and he verbalized understanding by noting his head. I will check chest x-ray. Continue ICU monitoring (2) Elevated LFTs: Code(s): R79.89 - Other specified abnormal findings of blood chemistry Status: Acute Assessment and Plan: 03/13: Significant elevation in LFTs, AST 2280, ALT 988, alk-phos 722 -patient has been hemodynamically stable, no hypotension noted in the last 24-48 hours -statin discontinued. Hold Tylenol -no tenderness in the right upper, lower quadrant or epigastric region on exam -negative vital hepatitis panel, right upper quadrant ultrasound with Doppler negative for hepatic or portal vein thrombosis -patient evaluated by GI -levels improving. Monitor (3) Cardiac arrest with pulseless electrical activity: Code(s): I46.9 - Cardiac arrest, cause unspecified Status: Acute Assessment and Plan: Cardiac arrest, secondary to unknown etiology. Possible aspiration pneumonia, NSTEMI, hypoxia, septic shock, infection -see code blue sheet for the details -patient currently intubated, vasopressors for blood pressure support have been weaned off -appreciate cardiology following the patient 02/29/2024 echocardiogram Summary 1. Technically difficult study with limited views. 2. Left ventricular chamber dimension is normal. 3. Left ventricular systolic function is mildly reduced, estimated at 45-50%. The apex appears to be hypokinetic. 4. There is mildly increased left ventricular wall thickness. 5. The left ventricular diastolic function is grade I diastolic dysfunction. 6. Right ventricular systolic function is normal. 7. Left atrial chamber dimension is moderately enlarged. 8. There is mild to moderate tricuspid valve regurgitation. 9. There is small anterior pericardial effusion. (4) Septic shock: Code(s): A41.9 - Sepsis, unspecified organism; R65.21 - Severe sepsis with septic shock Status: Acute Assessment and Plan: Resolved Patient in shock, likely related to the gangrene, aspiration pneumonia, status post cardiac arrest 02/28/2024: Blood cultures have been obtained and negative Off vasopressors and IV fluids Status post 10 days of antibiotics 03/16 low-grade fever increase in WBC CT scan as above, repeat blood cultures and sputum pending UA suggestive of UTI. Urine cultures pending. Ha has been changed. Continue cefepime (5) NSTEMI (non-ST elevated myocardial infarction): Code(s): I21.4 - Non-ST elevation (NSTEMI) myocardial infarction Status: Acute Assessment and Plan: -appreciate cardiology evaluation and recommendation -Continue aspirin and high-dose a statin -will hold Brilinta. Resumption per General surgery - beta-brayden, losartan are on hold due to soft blood pressure. Will resume beta-brayden -03/02 heparin infusion was discontinued after 48 hours for NSTEMI by cardiology (6) Gangrene of right foot: Code(s): I96 - Gangrene, not elsewhere classified Status: Acute Assessment and Plan: CTA showed peripheral arterial disease with total occlusion of the right anterior and posterior tibial arteries and right peroneal artery with distal reconstitution of peroneal artery. This extensive gangrene of the right foot with gas seen on CT of the foot. General surgery spoke to the patient in the ER on the day of admission on 02/27 patient at that time agreed for below-knee amputation. Plan was to do a below- knee amputation on 02/29/2024 but patient had a cardiac arrest that night secondary to sepsis. Surgery at that time was deferred. Patient now is intubated sedated and unable to sign his consent.. Patient has no family and for many years at the senior living has had no visitor. He has 1 son which no one has been able to get hold off right several attempts. Considering patient has gangrene of the foot with no vascular supply leading to sepsis and if untreatable lead to his , Dr. Johns will proceed with amputation today, 03/05/2024. Dr. Collins and Dr. Johns has signed 2 physician consent considering patient's clearly expressed wishes prior to cardiac arrest at the time of admission, his current situation and inability to sign the consent form by himself at this time. 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 -complete 5 days of clindamycin 03/13: Discussed with surgery, there is flexion contractures of his amputation which may hinder in him getting prosthetics, patient may require above knee amputation (7) Osteomyelitis of toe of right foot: Code(s): M86.9 - Osteomyelitis, unspecified Status: Chronic Assessment and Plan: As above (8) Peripheral vascular disease: Code(s): I73.9 - Peripheral vascular disease, unspecified Status: Chronic Assessment and Plan: Patient has history of peripheral vascular disease, coronary artery disease -started on aspirin, patient will require Brilinta since he had a STEMI in 2020 but currently holding Brilinta due to surgery and bleeding (9) Type 2 diabetes mellitus: Qualifiers: 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 complication status: with other specified complication 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 terminal manager insulin use: with terminal manager use Qualified Code(s): E11.69 - Type 2 diabetes mellitus with other specified complication; Z79.4 - long-term (current) use of insulin Code(s): E11.9 - Type 2 diabetes mellitus without complications Status: Acute Assessment and Plan: Currently on sliding scale insulin, Accu-Cheks Hemoglobin A1c this admission is 8.2 Lantus is on hold as patient is currently NPO (10) Chronic obstructive pulmonary disease: Code(s): J44.9 - Chronic obstructive pulmonary disease, unspecified Status: Chronic Assessment and Plan: Continue DuoNebs -continue Symbicort (11) Electrolyte abnormality: Code(s): E87.8 - Other disorders of electrolyte and fluid balance, not elsewhere classified Status: Acute Assessment and Plan: Hypernatremia, hold diuretics. Will give 500 mL of D5 water Replace potassium (12) Ileus: Code(s): K56.7 - Ileus, unspecified Status: Acute Assessment and Plan: CT scan shows significant amount of tube feeds collected in the stomach. Patient also had high residuals. Patient has already been on Reglan. Bowel sounds are present but decreased. Tube feeds are now off (13) Sinus tachycardia: Code(s): R00.0 - Tachycardia, unspecified Status: Acute Assessment and Plan: Does not appear in any respiratory distress. Continue BiPAP p.r.n.. Start beta-brayden once patient is able to take p.o. and blood pressure allows. Plan DVT prophylaxis: Heparin subQ Stress ulcer prophylaxis: Protonix Nutrition: npo. Will check swallow evaluation today Code Status: Full code. Modified barium swallow evaluation. Incentive spirometry. Consult PT OT. Will obtain PICC line and removed femoral central venous catheter. 03/15 Patient has no family available. Patient was extubated on 03/14 and I spoke to patient post extubation. I mentioned possibility of him needing re- intubation and he was agreeable stating that he is not ready to at this time. He stated that do whatever needs to be done to keep me alive. I also mentioned to him that if he gets reintubated and is unable to be weaned he will need tracheostomy and PEG tube placement and he states that he is agreeable to do it if needed. He did mention that he has some nephews in area which can be contacted. destination imagination coordinator was provided that information. 03/19 I confirmed with patient again regarding his code status he is willing to get reintubated if needed and is willing to proceed with trach and PEG if needed. He wishes to be full code. Critical Care Time Spent: 30 minutes Due to a high probability of clinically significant, life threatening deterioration, the patient required my highest level of preparedness to intervene emergently and I personally spent this critical care time directly and personally managing the patient. This critical care time included obtaining a history; examining the patient; pulse oximetry; ordering and review of studies; arranging urgent treatment with development of a management plan; evaluation of patient's response to treatment; frequent reassessment; and discussions with other providers. It was exclusive of separately billable procedures and treating other patients and teaching time. Please see Assessment and Plan section and the rest of the note for further information on patient assessment and treatment This dictation may have been done utilizing a voice recognition system. Attempts have been made to correct errors. However, there may be uncorrected grammatical, spelling, and recognitions errors present. Subjective Date/time seen: 03/21/24 Patient remains borderline respiratory status with intermittent requiring BiPAP and nasal cannula. He appears weak but is able to cough and is awake and alert. He answers questions and follows commands. Overnight he wore BiPAP at night transition him to nasal cannula this morning. His bedside swallow evaluation was borderline and he and modified above barium swallow evaluation is pending. He has and p.o.. He is afebrile. He is off all infusions. His urine output is acceptable. He does notice head yes to intermittent shortness of breath. Denies any pain. Full review of system was not obtainable as patient was on BiPAP. Interval history: Reason for consult: Status post PEA arrest, right foot gangrene with cellulitis, shock 02/27: Intubated 03/05:Right below-knee amputation with placement of posterior Ortho Glass splint 03/14: extubated and reintubated 03/17 right-sided thoracentesis and 1 L fluid was removed 03/18: Left thoracentesis and 550 mL fluid was removed 03/19 extubated Review of Systems Review of Systems: ROS unobtainable: Yes unobtainable due to endotracheal tube, unobtainable due to medical condition and unobtainable due to mental status Exam Narrative: General: Patient alert awake no acute distress HEENT:, pupils are equal and reactive from a sclera is clear Neck:? supple Respiratory:? Coarse breath sounds bilaterally, decreased at bases, adequate air entry, no wheezing Cardiac:? S1-S2 normal, regular rate and rhythm Abdomen:? Soft, nontender, nondistended, bowel sounds are decreased but present Extremities:? Right BKA stump under the dressing. Left dorsalis pedis is dopplerable Neuro:? Patient is awake alert follows simple commands with all extremities. He is partially oriented. He is overall generalized weak Skin:? Patient has maceration of his perianal area, pressure ulcer on his buttocks. Psych:? Normal speech and affect Objective Data Vital Signs Vital Signs: Vital Signs - 24 hr 03/20/24 10:00 03/20/24 10:00 03/20/24 11:01 Temperature 37.2 C Pulse Rate 130 H 130 H 123 H Respiratory Rate 25 H 23 H Blood Pressure 124/71 Pulse Oximetry 91 97 Oxygen Delivery BiPAP Oxygen Flow Rate Fraction of Inspired Oxygen 03/20/24 12:00 03/20/24 12:00 03/20/24 12:00 Temperature 36.9 C Pulse Rate 119 H 119 H 119 H Respiratory Rate 24 H 24 H Blood Pressure 122/69 Pulse Oximetry 100 100 Oxygen Delivery BiPAP Oxygen Flow Rate Fraction of Inspired Oxygen 30 03/20/24 13:31 03/20/24 13:31 03/20/24 13:46 Temperature Pulse Rate 123 H 122 H Respiratory Rate 22 H 22 H Blood Pressure Pulse Oximetry 93 Oxygen Delivery Nasal Cannula Oxygen Flow Rate 3 Fraction of Inspired Oxygen 03/20/24 14:00 03/20/24 14:00 03/20/24 16:00 Temperature 37.1 C 37.2 C Pulse Rate 126 H 126 H 126 H Respiratory Rate 24 H 25 H Blood Pressure 115/61 119/71 Pulse Oximetry 93 90 Oxygen Delivery Oxygen Flow Rate Fraction of Inspired Oxygen 03/20/24 16:05 03/20/24 16:00 03/20/24 18:00 Temperature 37.2 C Pulse Rate 123 H 123 H 127 H Respiratory Rate 24 H 25 H Blood Pressure 125/71 Pulse Oximetry 90 96 Oxygen Delivery Nasal Cannula Oxygen Flow Rate 3 Fraction of Inspired Oxygen 03/20/24 18:00 03/20/24 20:00 03/20/24 20:00 Temperature Pulse Rate 127 H 121 H 121 H Respiratory Rate Blood Pressure Pulse Oximetry Oxygen Delivery BiPAP Oxygen Flow Rate Fraction of Inspired Oxygen 30 03/20/24 20:00 03/20/24 20:25 03/20/24 20:25 Temperature 37.2 C Pulse Rate 121 H 124 H 124 H Respiratory Rate 25 H 29 H 29 H Blood Pressure 136/73 Pulse Oximetry 98 98 Oxygen Delivery BiPAP Oxygen Flow Rate Fraction of Inspired Oxygen 03/20/24 20:33 03/20/24 21:55 03/20/24 21:55 Temperature Pulse Rate 124 H 125 H 125 H Respiratory Rate 20 25 H Blood Pressure 129/73 Pulse Oximetry 98 Oxygen Delivery Oxygen Flow Rate Fraction of Inspired Oxygen 03/20/24 23:13 03/20/24 23:51 03/20/24 23:56 Temperature 37.2 C Pulse Rate 123 H 123 H Respiratory Rate 31 H 25 H Blood Pressure 137/82 Pulse Oximetry 99 97 97 Oxygen Delivery BiPAP BiPAP Oxygen Flow Rate Fraction of Inspired Oxygen 30 03/21/24 00:00 03/21/24 02:14 03/21/24 02:14 Temperature Pulse Rate 122 H 118 H 118 H Respiratory Rate 20 20 Blood Pressure Pulse Oximetry 100 Oxygen Delivery BiPAP Oxygen Flow Rate Fraction of Inspired Oxygen 03/21/24 02:27 03/21/24 02:00 03/21/24 03:47 Temperature Pulse Rate 118 H 117 H Respiratory Rate 20 20 Blood Pressure 129/81 Pulse Oximetry 100 Oxygen Delivery BiPAP Oxygen Flow Rate Fraction of Inspired Oxygen 30 03/21/24 03:58 03/21/24 04:00 03/21/24 05:17 Temperature 37.0 C Pulse Rate 122 H 119 H 119 H Respiratory Rate 20 22 H Blood Pressure 135/78 Pulse Oximetry 100 100 Oxygen Delivery BiPAP Oxygen Flow Rate Fraction of Inspired Oxygen 03/21/24 05:40 03/21/24 05:40 03/21/24 08:00 Temperature 37.1 C Pulse Rate 121 H 121 H 120 H Respiratory Rate 23 H 23 H Blood Pressure 139/78 Pulse Oximetry 100 100 Oxygen Delivery Nasal Cannula Oxygen Flow Rate 3 Fraction of Inspired Oxygen 03/21/24 08:00 03/21/24 08:00 Temperature 37.2 C Pulse Rate 120 H 120 H Respiratory Rate 23 H Blood Pressure 133/77 Pulse Oximetry 100 Oxygen Delivery Oxygen Flow Rate Fraction of Inspired Oxygen Intake/Output Intake/Output: Intake & Output 03/18/24 03/19/24 03/20/24 03/21/24 23:59 23:59 23:59 23:59 Intake Total 1049.5 812.3 100 Output Total 2850 3300 1050 350 Balance -1800.5 -2487.7 -950 -350 Meds/Results Medications: Active Medications Generic Name Dose Route Start Last Admin Trade Name Freq PRN Reason Stop Dose Admin Acetaminophen 500 mg 03/08/24 10:18 03/13/24 09:24 Acetaminophen 500 Mg Tablet FEED TUBE 500 mg Q6H PRN Administration Pain Rated 1-3 Albuterol/Ipratropium 3 ml 02/29/24 02:00 03/21/24 02:13 Ipratropium 0.5 Mg/Albuterol Sulfate 2.5 Mg Ampul.Neb 3 Ml INHALATION 3 ml Q6HRT JASON Administration Alteplase, Recombinant 2 mg 03/06/24 09:45 03/06/24 13:10 Alteplase 2 Mg Vial (Cathflo) IV PUSH 2 mg ONCE PRN Administration Line Occlusion Aspirin 81 mg 03/09/24 08:00 03/20/24 08:24 Aspirin 81 Mg Chewable Tablet FEED TUBE 81 mg DAILY@0800 JASON Administration Dextrose 12.5 gm 02/28/24 19:23 Dextrose 50% 25 Gm/50 Ml Syringe IV PUSH PRN PRN Hypoglycemia Protocol Glucagon 1 mg 02/28/24 19:23 Glucagon For Inj 1 Mg Vial IM PRN PRN Hypoglycemia Protocol Glucose 15 gm 03/08/24 10:19 Glucose Oral Gel 15 Gm Of Glucse In 37.5 Gm Tube FEED TUBE PRN PRN Hypoglycemia Protocol Heparin Sodium (Porcine) 5,000 units 03/03/24 14:00 03/17/24 06:13 Heparin Sodium 5,000 Units/Ml Vial SUB-Q 5,000 units Q8HR JASON Administration Dextrose 1,000 mls @ 100 mls/hr 02/28/24 19:23 Dextrose 5% 1,000 Ml IVPB PRN PRN Hypoglycemia Protocol Cefepime HCl 2 gm in 50 mls @ 100 mls/hr 03/17/24 09:00 03/20/24 23:58 Maxipime 2 Gm/Ns 50 Ml IVPB 03/23/24 21:29 Infused Q12H JASON Infusion Potassium Chloride 100 mls @ 25 mls/hr 03/21/24 07:41 Kcl 40 Meq/Water 100 Ml IVPB 03/21/24 11:40 ONCE STA Dextrose 500 mls @ 100 mls/hr 03/21/24 07:45 Dextrose 5% In Water IV CONT .Q5H JASON Insulin Aspart 3 - 6 units 03/15/24 17:00 03/21/24 05:38 Insulin Aspart (*Bkc) 100 Units/Ml SUB-Q Not Given Q4HR [facility] Protocol Insulin Glargine 55 units 03/15/24 09:00 03/16/24 10:44 Insulin Glargine (*Bkc) 100 Units/Ml SUB-Q 55 units DAILY JASON Administration Labetalol HCl 20 mg 03/08/24 10:06 03/08/24 16:48 Labetalol Hcl Inj 100 Mg/20 Ml Vial IV PUSH 20 mg Q4H PRN Administration SBP > 160 and HR> 60 -1st choice Morphine Sulfate 2 mg 03/19/24 19:39 03/21/24 00:05 Morphine Sulfate (*Crx) 2 Mg/Ml Inj IV PUSH 2 mg Q2HR PRN Administration Pain Rated 7-10 Pantoprazole Sodium 40 mg 03/02/24 09:00 03/20/24 20:54 Pantoprazole Sodium Iv 40 Mg Vial IV PUSH 40 mg Q12HR JASON Administration Sodium Chloride 10 ml 02/29/24 06:00 03/21/24 04:05 Central Line Flush IV PUSH 10 ml Q8HR JASON Administration Sodium Chloride 20 ml 02/28/24 23:37 Central Line Flush IV PUSH PRN PRN after blood draws Radiology Results: ITS Impressions Lower Extremity CTA 02/28/24 14:54 IMPRESSION: 1. 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 2. Moderate stenosis of right popliteal artery. 3. Osteomyelitis involving first proximal and distal phalanges and head of first metatarsal. Head CT 02/29/24 05:55 Impression: No intracranial hemorrhage, mass, or acute infarct. Stable chronic encephalomalacia in the high left parietal lobe. Atrophy and chronic white matter changes, as above. Chest/Abdomen/Pelvis CTA 02/29/24 06:02 Impression: Extensive right upper lobe consolidation and more mild right middle lobe consolidation, consistent with pneumonia. Consider aspiration pneumonia. Moderate to large right pleural effusion with complete atelectasis of the right lower lobe. Moderate left pleural effusion with minimal left basilar atelectasis. Small pericardial effusion. No definite acute abnormality in the abdomen or pelvis. Chronic compression fractures, as above. Renal Ultrasound 03/03/24 15:45 IMPRESSION: 1. Normal kidneys without hydronephrosis. 2. Small amount of ascites in the abdomen and pelvis. Venous Doppler Study 03/11/24 13:58 IMPRESSION: 1. Patent bilateral upper extremity veins. No evidence of venous thrombosis. Abdomen Ultrasound 03/13/24 16:52 IMPRESSION: 1. No etiology for abnormal liver function tests. 2. Normal hepatic veins and main portal vein. Right and left portal veins and proper hepatic artery not evaluated. 3. Right pleural effusion. Vascular Ultrasound 03/13/24 16:52 IMPRESSION: 1. No etiology for abnormal liver function tests. 2. Normal hepatic veins and main portal vein. Right and left portal veins and proper hepatic artery not evaluated. 3. Right pleural effusion. Abdomen X-Ray 03/16/24 19:53 IMPRESSION: Orogastric tube in satisfactory position in the stomach Chest/Abdomen/Pelvis CT 03/16/24 21:51 IMPRESSION: Anasarca Large pleural effusions with prominent compressive atelectasis of the lower lobes especially, dependent atelectasis of the middle and upper lobes Heart size. Prominent coronary artery atherosclerotic calcifications Minimal pericardial effusion Prominent diffuse thickening of urinary bladder wall suggesting cystitis area Ha catheter in bladder lumen Very prominent amount of fluid and large fluid level within the stomach despite presence of NG tube T11 and L1 moderate anterior wedge compression fractures, likely chronic Thoracentesis Ultrasound 03/18/24 10:27 IMPRESSION: 1. Successful ultrasound-guided thoracentesis yielding 550 mL of doris-colored fluid. Chest X-Ray 03/20/24 08:55 IMPRESSION: 1. Moderate-sized pleural effusions with worsening on the left. 2. Worsened airspace opacities in the perihilar regions and at the lung bases, consistent with atelectasis versus pneumonia. Labs Labs: Laboratory Results - last 24 hr 03/20/24 03/20/24 03/20/24 11:41 16:33 20:49 WBC RBC Hgb Hct MCV MCH MCHC RDW Plt Count MPV Sodium Potassium Chloride Carbon Dioxide Anion Gap BUN Creatinine Estim Creat Clear Calc Estimated GFR Glucose POC Capillary Glucose 235 H 164 H 184 H Calcium Magnesium Total Bilirubin AST ALT Alkaline Phosphatase Total Protein Albumin 03/21/24 03/21/24 00:03 04:52 WBC 10.8 H RBC 3.09 L Hgb 8.7 L Hct 29.1 L MCV 94.2 MCH 28.2 MCHC 29.9 L RDW 19.2 H Plt Count 337 MPV 9.7 Sodium 149 H Potassium 3.4 Chloride 113 H Carbon Dioxide 29 Anion Gap 7 BUN 19 Creatinine 0.80 Estim Creat Clear Calc 90 Estimated GFR > 60 Glucose 193 H POC Capillary Glucose 207 H Calcium 8.1 L Magnesium 2.4 H Total Bilirubin 1.0 AST 36 ALT 47 Alkaline Phosphatase 191 H Total Protein 6.0 L Albumin 2.9 L Quality VTE Prophylaxis VTE prophylaxis: pharmacologic ordered
[2024-03-21] MEDS: CEFEPIME 2 GM/NS 50 ML 2 GM/50 ML BAG IVPB ×2 (08:55→20:24)
[2024-03-21] MEDS: KCL 40 MEQ/WATER 100 ML 100 ML 25 ML IVPB (08:56)
[2024-03-21] MEDS: PANTOPRAZOLE SODIUM IV 40 MG VIAL IV PUSH ×2 (08:57→20:17)
[2024-03-21] MEDS: DEXTROSE 5% IN WATER 500 ML 100 ML IV CONT (09:34)
--- NOTE | 2024-03-21 10:31 | PCPTNOTE ---
Attempted PT evaluation, pt is on bedrest/has a Femoral line. Pt not safe to participate in skilled therapy. Will follow.
--- NOTE | 2024-03-21 10:34 | PCOTNOTE ---
Received OT orders however pt has bedrest orders and a femoral line still present. Will continue to follow and wait for medical appropriateness.
[2024-03-21 12:52] LABS: Glucose Point of Care 216 mg/dl (65-105)
--- NOTE | 2024-03-21 13:54 | PCNFU ---
Nutrition Follow-Up Complete: Suboptimal Energy Intake as related to mechanical vent as evidenced by NPO. goal: Meet estimated nutritional needs Patient has limited progress towards goal. We will continue current goal. Pt current nutrition is NPO. Nutrition recommendation:Plans for MBS today. If patient is able to tolerated PO recommend DBCC diet with Minh BID and Glucerna shakes BID. If patient is recommend to remain NPO would recommend Glucerna 1.2 goal rate at 60 ml/hr . Last recorded weight is 91.9 kg, down from 98 kg on admit. Bowel Motility: +BM reported 03/19 Labs Reviewed: Mg 2.4, Glu 193, NA 149, Alb 2.9 Meds Noted:NovoLog, Lantus, Protonix Skin: Stage II pressure ulcer-sacrum, Right BKA Additional Notes: Patient remains NPO. Plans for MBS today. Discussed with nursing recommendations pending MBS evaluation. Will monitor weight, labs, skin, tube feedings, meds, every 3 days.
--- NOTE | 2024-03-21 15:24 | PCSTNOTE ---
Please refer to the Modified Barium Swallow Evaluation in the EMR.
--- NOTE | 2024-03-21 16:21 | PM.IMPN ---
Progress Note: A&P Assessment and Plan (1) Acute respiratory failure with hypoxia: Code(s): J96.01 - Acute respiratory failure with hypoxia Status: Acute Assessment and Plan: Acute respiratory failure likely related to cardiac arrest, aspiration pneumonia, NSTEMI, hypoxia, septic shock Worsening likely secondary to ARDS versus pulmonary edema Intubated 02/27 02/28 Chest CTA: Extensive right upper lobe consolidation and more mild right middle lobe consolidation, consistent with pneumonia. Consider aspiration pneumonia.Moderate to large right pleural effusion with complete atelectasis of the right lower lobe. Moderate left pleural effusion with minimal left basilar atelectasis. Small pericardial effusion. No definite acute abnormality in the abdomen or pelvis. Chronic compression fractures, as above . -03/07 right thoracentesis with 1 L fluid removed -03/08 left-sided thoracentesis 550 mL -03/11: patient was in pressure support ventilation 02/18, with decrease tidal volumes in the upper 200s. place patient back on CMV, I have asked the bedside RN to decrease the Precedex infusion once patient is more awake will place back on spontaneous breathing trials 03/12: Place patient on SBT 04/17, low tidal volumes, low respiratory rate. Patient had replaced back on CMV mode of ventilation. -even on ASV patient is breathing only 7-8 times a minute 03/13: Off Precedex infusion overnight, placed patient on pressure support ventilation 04/17, initially did well but not significantly tachycardic and tachypneic and in respiratory distress, patient was placed back on CMV mode of ventilation and low-dose was 03/14 8/5 PSV SBT done for more than 1 hour. RSBI, ABG and Vitals acceptable. Pt awake and following commands. Patient was extubated. Initially patient did well and was on nasal cannula and was able to communicate. Over 12 hours patient became more hypoxic with increased respiratory distress and tachypnea. I spoke to patient post extubation and was agreeable to re-intubation if needed and stated that 'he is not ready to ' and 'do what ever it takes'. He was re intubated at night. I also mentioned to him that he may need tracheostomy and PEG tube placement if he gets we intubated and is not weanable. He told me 'to proceed with it if needed'. Solu-Medrol IV given for airway edema and will be continued for 24 hours -completed course of Solu-Medrol -continue bronchodilators -CT scan shows large pleural effusions bilaterally. I will request IR for thoracentesis.. Patient is on minimal ventilator setting but has failed trials initially multiple times and then once extubated he was reintubated within 12 hours. I will treat try again after thoracentesis to see patient is weanable from the vent otherwise will proceed with trach and PEG as patient has been on ventilator for more than 2 weeks. 03/17 right thoracentesis 1 L fluid was removed 03/18 left thoracentesis 550 mL fluid was removed Will also continue diuretics. 03/19 patient was extubated after weaning trial 03/20 continue nasal cannula, BiPAP p.r.n., hold diuretics, incentive spirometry, spoke to patient after extubation yesterday he is willing to be intubated if needed and proceed with trach and PEG if needed hopefully we can avoid that situation 03/21 patient continues to require BiPAP intermittently and tolerates nasal cannula. He appears quite weak although he does have borderline cough. Continue incentive spirometry. P.r.n. BiPAP. BiPAP at night. Nasal cannula as tolerated. Patient remains at risk of requiring intubation. I spoke to patient again and mention that to him and he verbalized understanding by noting his head. I will check chest x-ray. Continue ICU monitoring (2) Elevated LFTs: Code(s): R79.89 - Other specified abnormal findings of blood chemistry Status: Acute Assessment and Plan: 03/13: Significant elevation in LFTs, AST 2280, ALT 988, alk-phos 722 -patient has been hemodynamically stable, no hypotension noted in the last 24-48 hours -statin discontinued. Hold Tylenol -no tenderness in the right upper, lower quadrant or epigastric region on exam -negative vital hepatitis panel, right upper quadrant ultrasound with Doppler negative for hepatic or portal vein thrombosis -patient evaluated by GI -levels improving. Monitor (3) Cardiac arrest with pulseless electrical activity: Code(s): I46.9 - Cardiac arrest, cause unspecified Status: Acute Assessment and Plan: Cardiac arrest, secondary to unknown etiology. Possible aspiration pneumonia, NSTEMI, hypoxia, septic shock, infection -see code blue sheet for the details -patient currently intubated, vasopressors for blood pressure support have been weaned off -appreciate cardiology following the patient 02/29/2024 echocardiogram Summary 1. Technically difficult study with limited views. 2. Left ventricular chamber dimension is normal. 3. Left ventricular systolic function is mildly reduced, estimated at 45-50%. The apex appears to be hypokinetic. 4. There is mildly increased left ventricular wall thickness. 5. The left ventricular diastolic function is grade I diastolic dysfunction. 6. Right ventricular systolic function is normal. 7. Left atrial chamber dimension is moderately enlarged. 8. There is mild to moderate tricuspid valve regurgitation. 9. There is small anterior pericardial effusion. (4) Septic shock: Code(s): A41.9 - Sepsis, unspecified organism; R65.21 - Severe sepsis with septic shock Status: Acute Assessment and Plan: Resolved Patient in shock, likely related to the gangrene, aspiration pneumonia, status post cardiac arrest 02/28/2024: Blood cultures have been obtained and negative Off vasopressors and IV fluids Status post 10 days of antibiotics 03/16 low-grade fever increase in WBC CT scan as above, repeat blood cultures and sputum pending UA suggestive of UTI. Urine cultures pending. Ha has been changed. Continue cefepime (5) NSTEMI (non-ST elevated myocardial infarction): Code(s): I21.4 - Non-ST elevation (NSTEMI) myocardial infarction Status: Acute Assessment and Plan: -appreciate cardiology evaluation and recommendation -Continue aspirin and high-dose a statin -will hold Brilinta. Resumption per General surgery - beta-brayden, losartan are on hold due to soft blood pressure. Will resume beta-brayden -03/02 heparin infusion was discontinued after 48 hours for NSTEMI by cardiology (6) Gangrene of right foot: Code(s): I96 - Gangrene, not elsewhere classified Status: Acute Assessment and Plan: CTA showed peripheral arterial disease with total occlusion of the right anterior and posterior tibial arteries and right peroneal artery with distal reconstitution of peroneal artery. This extensive gangrene of the right foot with gas seen on CT of the foot. General surgery spoke to the patient in the ER on the day of admission on 02/27 patient at that time agreed for below-knee amputation. Plan was to do a below-knee amputation on 02/29/2024 but patient had a cardiac arrest that night secondary to sepsis. Surgery at that time was deferred. Patient now is intubated sedated and unable to sign his consent.. Patient has no family and for many years at the care home has had no visitor. He has 1 son which no one has been able to get hold off right several attempts. Considering patient has gangrene of the foot with no vascular supply leading to sepsis and if untreatable lead to his , Dr. Johns will proceed with amputation today, 03/05/2024. Dr. Collins and Dr. Johns has signed 2 physician consent considering patient's clearly expressed wishes prior to cardiac arrest at the time of admission, his current situation and inability to sign the consent form by himself at this time. 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 -complete 5 days of clindamycin 03/13: Discussed with surgery, there is flexion contractures of his amputation which may hinder in him getting prosthetics, patient may require above knee amputation (7) Osteomyelitis of toe of right foot: Code(s): M86.9 - Osteomyelitis, unspecified Status: Chronic Assessment and Plan: As above (8) Peripheral vascular disease: Code(s): I73.9 - Peripheral vascular disease, unspecified Status: Chronic Assessment and Plan: Patient has history of peripheral vascular disease, coronary artery disease -started on aspirin, patient will require Brilinta since he had a STEMI in 2020 but currently holding Brilinta due to surgery and bleeding (9) Type 2 diabetes mellitus: Qualifiers: 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 complication status: with other specified complication 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 ocean transportation intermediary insulin use: with ocean transportation intermediary use Qualified Code(s): E11.69 - Type 2 diabetes mellitus with other specified complication; Z79.4 - buttermaker continuous churn (current) use of insulin Code(s): E11.9 - Type 2 diabetes mellitus without complications Status: Acute Assessment and Plan: Currently on sliding scale insulin, Accu-Cheks Hemoglobin A1c this admission is 8.2 Lantus is on hold as patient is currently NPO (10) Chronic obstructive pulmonary disease: Code(s): J44.9 - Chronic obstructive pulmonary disease, unspecified Status: Chronic Assessment and Plan: Continue DuoNebs -continue Symbicort (11) Electrolyte abnormality: Code(s): E87.8 - Other disorders of electrolyte and fluid balance, not elsewhere classified Status: Acute Assessment and Plan: Hypernatremia, hold diuretics. Will give 500 mL of D5 water Replace potassium (12) Ileus: Code(s): K56.7 - Ileus, unspecified Status: Acute Assessment and Plan: CT scan shows significant amount of tube feeds collected in the stomach. Patient also had high residuals. Patient has already been on Reglan. Bowel sounds are present but decreased. Tube feeds are now off (13) Sinus tachycardia: Code(s): R00.0 - Tachycardia, unspecified Status: Acute Assessment and Plan: Does not appear in any respiratory distress. Continue BiPAP p.r.n.. Start beta-brayden once patient is able to take p.o. and blood pressure allows. Subjective Date/time seen: 03/21/24 16:22 Interval history: Currently in NC. PRN BiPaP . Pt reports feeling tired. Review of Systems Review of Systems: 12 systems were reviewed and are negative except for as per HPI. All systems reviewed & are unremarkable except as noted in HPI and below (HPI) ROS unobtainable: Yes unobtainable due to endotracheal tube, unobtainable due to medical condition and unobtainable due to mental status Exam Narrative: General: Patient alert awake no acute distress HEENT:, pupils are equal and reactive from a sclera is clear Neck:? supple Respiratory:? Coarse breath sounds bilaterally, decreased at bases, adequate air entry, no wheezing Cardiac:? S1-S2 normal, regular rate and rhythm Abdomen:? Soft, nontender, nondistended, bowel sounds are decreased but present Extremities:? Right BKA stump under the dressing. Left dorsalis pedis is dopplerable Neuro:? Patient is awake alert follows simple commands with all extremities. He is partially oriented. He is overall generalized weak Skin:? Patient has maceration of his perianal area, pressure ulcer on his buttocks. Psych:? Normal speech and affect Objective Data Vital Signs Vital Signs: Vital Signs - 24 hr 03/20/24 18:00 03/20/24 18:00 03/20/24 20:00 Temperature 99.0 F Pulse Rate 127 H 127 H 121 H Respiratory Rate 25 H Blood Pressure 125/71 Pulse Oximetry 96 Oxygen Delivery BiPAP Oxygen Flow Rate Fraction of Inspired Oxygen 30 03/20/24 20:00 03/20/24 20:00 03/20/24 20:25 Temperature 98.9 F Pulse Rate 121 H 121 H 124 H Respiratory Rate 25 H 29 H Blood Pressure 136/73 Pulse Oximetry 98 98 Oxygen Delivery BiPAP Oxygen Flow Rate Fraction of Inspired Oxygen 03/20/24 20:25 03/20/24 20:33 03/20/24 21:55 Temperature Pulse Rate 124 H 124 H 125 H Respiratory Rate 29 H 20 Blood Pressure Pulse Oximetry Oxygen Delivery Oxygen Flow Rate Fraction of Inspired Oxygen 03/20/24 21:55 03/20/24 23:13 03/20/24 23:51 Temperature Pulse Rate 125 H 123 H Respiratory Rate 25 H 31 H Blood Pressure 129/73 Pulse Oximetry 98 99 97 Oxygen Delivery BiPAP BiPAP Oxygen Flow Rate Fraction of Inspired Oxygen 30 03/20/24 23:56 03/21/24 00:00 03/21/24 02:14 Temperature 99 F Pulse Rate 123 H 122 H 118 H Respiratory Rate 25 H 20 Blood Pressure 137/82 Pulse Oximetry 97 100 Oxygen Delivery BiPAP Oxygen Flow Rate Fraction of Inspired Oxygen 03/21/24 02:14 03/21/24 02:27 03/21/24 02:00 Temperature Pulse Rate 118 H 118 H 117 H Respiratory Rate 20 20 20 Blood Pressure 129/81 Pulse Oximetry 100 Oxygen Delivery Oxygen Flow Rate Fraction of Inspired Oxygen 03/21/24 03:47 03/21/24 03:58 03/21/24 04:00 Temperature 98.6 F Pulse Rate 122 H 119 H Respiratory Rate 20 Blood Pressure 135/78 Pulse Oximetry 100 Oxygen Delivery BiPAP Oxygen Flow Rate Fraction of Inspired Oxygen 30 03/21/24 05:17 03/21/24 05:40 03/21/24 05:40 Temperature 98.8 F Pulse Rate 119 H 121 H 121 H Respiratory Rate 22 H 23 H Blood Pressure 139/78 Pulse Oximetry 100 100 Oxygen Delivery BiPAP Oxygen Flow Rate Fraction of Inspired Oxygen 03/21/24 08:00 03/21/24 08:00 03/21/24 08:00 Temperature 98.9 F Pulse Rate 120 H 120 H 120 H Respiratory Rate 23 H 23 H Blood Pressure 133/77 Pulse Oximetry 100 100 Oxygen Delivery Nasal Cannula Oxygen Flow Rate 3 Fraction of Inspired Oxygen 03/21/24 09:31 03/21/24 09:30 03/21/24 09:43 Temperature Pulse Rate 121 H 124 H Respiratory Rate 23 H 23 H Blood Pressure Pulse Oximetry 100 Oxygen Delivery Nasal Cannula Oxygen Flow Rate 3 Fraction of Inspired Oxygen 03/21/24 10:01 03/21/24 10:00 03/21/24 10:00 Temperature 99.1 F Pulse Rate 122 H 121 H Respiratory Rate 26 H Blood Pressure 118/72 Pulse Oximetry 99 99 Oxygen Delivery Nasal Cannula Oxygen Flow Rate 2 Fraction of Inspired Oxygen 03/21/24 12:00 03/21/24 12:00 03/21/24 12:00 Temperature 98.9 F Pulse Rate 115 H 115 H 115 H Respiratory Rate 21 H 21 H Blood Pressure 142/74 H Pulse Oximetry 98 98 Oxygen Delivery Nasal Cannula Oxygen Flow Rate 2 Fraction of Inspired Oxygen 30 03/21/24 14:00 03/21/24 14:00 03/21/24 14:54 Temperature 98.9 F Pulse Rate 121 H 121 H 123 H Respiratory Rate 23 H 23 H Blood Pressure 125/70 Pulse Oximetry 96 Oxygen Delivery Oxygen Flow Rate Fraction of Inspired Oxygen 03/21/24 15:04 Temperature Pulse Rate 121 H Respiratory Rate 23 H Blood Pressure Pulse Oximetry Oxygen Delivery Oxygen Flow Rate Fraction of Inspired Oxygen Intake/Output Intake/Output: Intake & Output 03/18/24 03/19/24 03/20/24 03/21/24 23:59 23:59 23:59 23:59 Intake Total 1049.5 812.3 100 Output Total 2850 3300 1050 350 Balance -1800.5 -2487.7 -950 -350 Meds/Results Medications: Active Medications Generic Name Dose Route Start Last Admin Trade Name Freq PRN Reason Stop Dose Admin Acetaminophen 500 mg 03/08/24 10:18 03/13/24 09:24 Acetaminophen 500 Mg Tablet FEED TUBE 500 mg Q6H PRN Administration Pain Rated 1-3 Albuterol/Ipratropium 3 ml 02/29/24 02:00 03/21/24 14:54 Ipratropium 0.5 Mg/Albuterol Sulfate 2.5 Mg Ampul.Neb 3 Ml INHALATION 3 ml Q6HRT JASON Administration Alteplase, Recombinant 2 mg 03/06/24 09:45 03/06/24 13:10 Alteplase 2 Mg Vial (Cathflo) IV PUSH 2 mg ONCE PRN Administration Line Occlusion Aspirin 81 mg 03/09/24 08:00 03/21/24 08:56 Aspirin 81 Mg Chewable Tablet FEED TUBE Not Given DAILY@0800 JASON Dextrose 12.5 gm 02/28/24 19:23 Dextrose 50% 25 Gm/50 Ml Syringe IV PUSH PRN PRN Hypoglycemia Protocol Glucagon 1 mg 02/28/24 19:23 Glucagon For Inj 1 Mg Vial IM PRN PRN Hypoglycemia Protocol Glucose 15 gm 03/08/24 10:19 Glucose Oral Gel 15 Gm Of Glucse In 37.5 Gm Tube FEED TUBE PRN PRN Hypoglycemia Protocol Heparin Sodium (Porcine) 5,000 units 03/03/24 14:00 03/17/24 06:13 Heparin Sodium 5,000 Units/Ml Vial SUB-Q 5,000 units Q8HR JASON Administration Dextrose 1,000 mls @ 100 mls/hr 02/28/24 19:23 Dextrose 5% 1,000 Ml IVPB PRN PRN Hypoglycemia Protocol Cefepime HCl 2 gm in 50 mls @ 100 mls/hr 03/17/24 09:00 03/21/24 08:55 Maxipime 2 Gm/Ns 50 Ml IVPB 03/23/24 21:29 100 mls/hr Q12H JASON Administration Insulin Aspart 3 - 6 units 03/15/24 17:00 03/21/24 12:51 Insulin Aspart (*Bkc) 100 Units/Ml SUB-Q 3 units Q4HR JASON Administration Protocol Insulin Glargine 55 units 03/15/24 09:00 03/16/24 10:44 Insulin Glargine (*Bkc) 100 Units/Ml SUB-Q 55 units DAILY JASON Administration Labetalol HCl 20 mg 03/08/24 10:06 03/08/24 16:48 Labetalol Hcl Inj 100 Mg/20 Ml Vial IV PUSH 20 mg Q4H PRN Administration SBP > 160 and HR> 60 -1st choice Morphine Sulfate 2 mg 03/19/24 19:39 03/21/24 14:04 Morphine Sulfate (*Crx) 2 Mg/Ml Inj IV PUSH 2 mg Q2HR PRN Administration Pain Rated 7-10 Pantoprazole Sodium 40 mg 03/02/24 09:00 03/21/24 08:57 Pantoprazole Sodium Iv 40 Mg Vial IV PUSH 40 mg Q12HR JASON Administration Sodium Chloride 10 ml 02/29/24 06:00 03/21/24 14:04 Central Line Flush IV PUSH 10 ml Q8HR JASON Administration Sodium Chloride 20 ml 02/28/24 23:37 Central Line Flush IV PUSH PRN PRN after blood draws Sodium Chloride 20 ml 03/21/24 08:57 Central Line Flush IV PUSH PRN PRN after blood draws Sodium Chloride 10 ml 03/21/24 08:57 Central Line Flush IV PUSH PRN PRN with TPN bag changes Sodium Chloride 10 ml 03/21/24 14:00 03/21/24 14:04 Central Line Flush IV PUSH 10 ml Q8HR JASON Administration Radiology Results: ITS Impressions Lower Extremity CTA 02/28/24 14:54 IMPRESSION: 1. 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 2. Moderate stenosis of right popliteal artery. 3. Osteomyelitis involving first proximal and distal phalanges and head of first metatarsal. Head CT 02/29/24 05:55 Impression: No intracranial hemorrhage, mass, or acute infarct. Stable chronic encephalomalacia in the high left parietal lobe. Atrophy and chronic white matter changes, as above. Chest/Abdomen/Pelvis CTA 02/29/24 06:02 Impression: Extensive right upper lobe consolidation and more mild right middle lobe consolidation, consistent with pneumonia. Consider aspiration pneumonia. Moderate to large right pleural effusion with complete atelectasis of the right lower lobe. Moderate left pleural effusion with minimal left basilar atelectasis. Small pericardial effusion. No definite acute abnormality in the abdomen or pelvis. Chronic compression fractures, as above. Renal Ultrasound 03/03/24 15:45 IMPRESSION: 1. Normal kidneys without hydronephrosis. 2. Small amount of ascites in the abdomen and pelvis. Venous Doppler Study 03/11/24 13:58 IMPRESSION: 1. Patent bilateral upper extremity veins. No evidence of venous thrombosis. Abdomen Ultrasound 03/13/24 16:52 IMPRESSION: 1. No etiology for abnormal liver function tests. 2. Normal hepatic veins and main portal vein. Right and left portal veins and proper hepatic artery not evaluated. 3. Right pleural effusion. Vascular Ultrasound 03/13/24 16:52 IMPRESSION: 1. No etiology for abnormal liver function tests. 2. Normal hepatic veins and main portal vein. Right and left portal veins and proper hepatic artery not evaluated. 3. Right pleural effusion. Chest/Abdomen/Pelvis CT 03/16/24 21:51 IMPRESSION: Anasarca Large pleural effusions with prominent compressive atelectasis of the lower lobes especially, dependent atelectasis of the middle and upper lobes Heart size. Prominent coronary artery atherosclerotic calcifications Minimal pericardial effusion Prominent diffuse thickening of urinary bladder wall suggesting cystitis area Ha catheter in bladder lumen Very prominent amount of fluid and large fluid level within the stomach despite presence of NG tube T11 and L1 moderate anterior wedge compression fractures, likely chronic Thoracentesis Ultrasound 03/18/24 10:27 IMPRESSION: 1. Successful ultrasound-guided thoracentesis yielding 550 mL of doris-colored fluid. Chest X-Ray 03/21/24 09:06 IMPRESSION: 1. PICC tip at the superior cavoatrial junction. 2. Stable moderate-sized pleural effusions. 3. Stable airspace opacities in the perihilar regions and at the lung bases, consistent with atelectasis versus pneumonia. Modified Barium Swallow 03/21/24 15:25 IMPRESSION: 1. Aspiration of thin liquids and pudding. 2. Please refer to the speech therapy report for recommendations. Abdomen X-Ray 03/21/24 15:56 IMPRESSION: 1. Nasogastric tube tip in the stomach. 2. Moderate-sized right and small left pleural effusions. Labs Labs: Laboratory Results - last 24 hr 03/20/24 03/20/24 03/21/24 16:33 20:49 00:03 WBC RBC Hgb Hct MCV MCH MCHC RDW Plt Count MPV Sodium Potassium Chloride Carbon Dioxide Anion Gap BUN Creatinine Estim Creat Clear Calc Estimated GFR Glucose POC Capillary Glucose 164 H 184 H 207 H Calcium Magnesium Total Bilirubin AST ALT Alkaline Phosphatase Total Protein Albumin 03/21/24 03/21/24 04:52 12:48 WBC 10.8 H RBC 3.09 L Hgb 8.7 L Hct 29.1 L MCV 94.2 MCH 28.2 MCHC 29.9 L RDW 19.2 H Plt Count 337 MPV 9.7 Sodium 149 H Potassium 3.4 Chloride 113 H Carbon Dioxide 29 Anion Gap 7 BUN 19 Creatinine 0.80 Estim Creat Clear Calc 90 Estimated GFR > 60 Glucose 193 H POC Capillary Glucose 216 H Calcium 8.1 L Magnesium 2.4 H Total Bilirubin 1.0 AST 36 ALT 47 Alkaline Phosphatase 191 H Total Protein 6.0 L Albumin 2.9 L Hospitalist MIPS Advance Care Plan I have confirmed that the patient's Advanced Care Plan is present, code status is documented, or surrogate decision maker is listed in patient medical record.: Yes Medication Reconciliation I have utilized all available resources to obtain, update and review the patients current medications (includes all prescriptions, OTC, herbals, cannabis, and nutritional supplements).: Yes
--- NOTE | 2024-03-21 16:44 | P.PNGS_ITS ---
Progress Note: A&P Assessment and Plan (1) Gangrene of right foot: Code(s): I96 - Gangrene, not elsewhere classified Status: Acute (2) Amputation of right lower extremity below knee: Qualifiers: Encounter type: subsequent encounter Qualified Code(s): S88.111D - Complete traumatic amputation at level between knee and ankle, right lower leg, subsequent encounter Code(s): S88.111A - Complete traumatic amputation at level between knee and ankle, right lower leg, initial encounter Status: Acute Assessment and Plan: Wound healing slowly. Some dusky appearance to the wound and wound edges on lateral aspect. Posterior flap still looks very healthy with no signs of skin necrosis, no fluctuance, no foul order. Continue knee immobilizer and dressing changes. Patient extubated but mental status still impaired. Subjective Subjective Date/Time Seen: 03/21/24 16:44 Interval history: Extubated but nonverbal, does not understand questions or statements. Speech is garbled and not recognizable. Exam Extrem: Right lower extremity: lower leg (Lateral incision dusky, no obvious tissue necrosis) Details: non-pitting edema and other (Posterior flap looks hea lthy, incision questionable); no erythema, no tenderness, no crepitus and no unusual warmth Other: Right below-knee amputation wound continues with knee immobilizer keeping the right knee pretty well extended fully. No flexion contracture noted. Objective Data Vital Signs Vital Signs: Vital Signs - 24 hr 03/20/24 18:00 03/20/24 18:00 03/20/24 20:00 Temperature 37.2 C Pulse Rate 127 H 127 H 121 H Respiratory Rate 25 H Blood Pressure 125/71 Pulse Oximetry 96 Oxygen Delivery BiPAP Oxygen Flow Rate Fraction of Inspired Oxygen 30 03/20/24 20:00 03/20/24 20:00 03/20/24 20:25 Temperature 37.2 C Pulse Rate 121 H 121 H 124 H Respiratory Rate 25 H 29 H Blood Pressure 136/73 Pulse Oximetry 98 98 Oxygen Delivery BiPAP Oxygen Flow Rate Fraction of Inspired Oxygen 03/20/24 20:25 03/20/24 20:33 03/20/24 21:55 Temperature Pulse Rate 124 H 124 H 125 H Respiratory Rate 29 H 20 Blood Pressure Pulse Oximetry Oxygen Delivery Oxygen Flow Rate Fraction of Inspired Oxygen 03/20/24 21:55 03/20/24 23:13 03/20/24 23:51 Temperature Pulse Rate 125 H 123 H Respiratory Rate 25 H 31 H Blood Pressure 129/73 Pulse Oximetry 98 99 97 Oxygen Delivery BiPAP BiPAP Oxygen Flow Rate Fraction of Inspired Oxygen 30 03/20/24 23:56 03/21/24 00:00 03/21/24 02:14 Temperature 37.2 C Pulse Rate 123 H 122 H 118 H Respiratory Rate 25 H 20 Blood Pressure 137/82 Pulse Oximetry 97 100 Oxygen Delivery BiPAP Oxygen Flow Rate Fraction of Inspired Oxygen 03/21/24 02:14 03/21/24 02:27 03/21/24 02:00 Temperature Pulse Rate 118 H 118 H 117 H Respiratory Rate 20 20 20 Blood Pressure 129/81 Pulse Oximetry 100 Oxygen Delivery Oxygen Flow Rate Fraction of Inspired Oxygen 03/21/24 03:47 03/21/24 03:58 03/21/24 04:00 Temperature 37.0 C Pulse Rate 122 H 119 H Respiratory Rate 20 Blood Pressure 135/78 Pulse Oximetry 100 Oxygen Delivery BiPAP Oxygen Flow Rate Fraction of Inspired Oxygen 30 03/21/24 05:17 03/21/24 05:40 03/21/24 05:40 Temperature 37.1 C Pulse Rate 119 H 121 H 121 H Respiratory Rate 22 H 23 H Blood Pressure 139/78 Pulse Oximetry 100 100 Oxygen Delivery BiPAP Oxygen Flow Rate Fraction of Inspired Oxygen 03/21/24 08:00 03/21/24 08:00 03/21/24 08:00 Temperature 37.2 C Pulse Rate 120 H 120 H 120 H Respiratory Rate 23 H 23 H Blood Pressure 133/77 Pulse Oximetry 100 100 Oxygen Delivery Nasal Cannula Oxygen Flow Rate 3 Fraction of Inspired Oxygen 03/21/24 09:31 03/21/24 09:30 03/21/24 09:43 Temperature Pulse Rate 121 H 124 H Respiratory Rate 23 H 23 H Blood Pressure Pulse Oximetry 100 Oxygen Delivery Nasal Cannula Oxygen Flow Rate 3 Fraction of Inspired Oxygen 03/21/24 10:01 03/21/24 10:00 03/21/24 10:00 Temperature 37.3 C Pulse Rate 122 H 121 H Respiratory Rate 26 H Blood Pressure 118/72 Pulse Oximetry 99 99 Oxygen Delivery Nasal Cannula Oxygen Flow Rate 2 Fraction of Inspired Oxygen 03/21/24 12:00 03/21/24 12:00 03/21/24 12:00 Temperature 37.2 C Pulse Rate 115 H 115 H 115 H Respiratory Rate 21 H 21 H Blood Pressure 142/74 H Pulse Oximetry 98 98 Oxygen Delivery Nasal Cannula Oxygen Flow Rate 2 Fraction of Inspired Oxygen 30 03/21/24 14:00 03/21/24 14:00 03/21/24 14:54 Temperature 37.2 C Pulse Rate 121 H 121 H 123 H Respiratory Rate 23 H 23 H Blood Pressure 125/70 Pulse Oximetry 96 Oxygen Delivery Oxygen Flow Rate Fraction of Inspired Oxygen 03/21/24 15:04 03/21/24 16:00 03/21/24 16:00 Temperature Pulse Rate 121 H 118 H 118 H Respiratory Rate 23 H 22 H Blood Pressure Pulse Oximetry 96 Oxygen Delivery Nasal Cannula Oxygen Flow Rate 2 Fraction of Inspired Oxygen 30 03/21/24 16:00 Temperature 37.1 C Pulse Rate 118 H Respiratory Rate 22 H Blood Pressure 124/70 Pulse Oximetry 97 Oxygen Delivery Oxygen Flow Rate Fraction of Inspired Oxygen Intake/Output Intake/Output: Intake & Output 03/18/24 03/19/24 03/20/24 03/21/24 23:59 23:59 23:59 23:59 Intake Total 1049.5 812.3 100 50 Output Total 2850 3300 1050 350 Balance -1800.5 -2487.7 -950 -300 Meds/Results Medications: Active Medications Generic Name Dose Route Start Last Admin Trade Name Freq PRN Reason Stop Dose Admin Acetaminophen 500 mg 03/08/24 10:18 03/13/24 09:24 Acetaminophen 500 Mg Tablet FEED TUBE 500 mg Q6H PRN Administration Pain Rated 1-3 Albuterol/Ipratropium 3 ml 02/29/24 02:00 03/21/24 14:54 Ipratropium 0.5 Mg/Albuterol Sulfate 2.5 Mg Ampul.Neb 3 Ml INHALATION 3 ml Q6HRT JASON Administration Alteplase, Recombinant 2 mg 03/06/24 09:45 03/06/24 13:10 Alteplase 2 Mg Vial (Cathflo) IV PUSH 2 mg ONCE PRN Administration Line Occlusion Aspirin 81 mg 03/09/24 08:00 03/21/24 08:56 Aspirin 81 Mg Chewable Tablet FEED TUBE Not Given DAILY@0800 [facility] Dextrose 12.5 gm 02/28/24 19:23 Dextrose 50% 25 Gm/50 Ml Syringe IV PUSH PRN PRN Hypoglycemia Protocol Glucagon 1 mg 02/28/24 19:23 Glucagon For Inj 1 Mg Vial IM PRN PRN Hypoglycemia Protocol Glucose 15 gm 03/08/24 10:19 Glucose Oral Gel 15 Gm Of Glucse In 37.5 Gm Tube FEED TUBE PRN PRN Hypoglycemia Protocol Heparin Sodium (Porcine) 5,000 units 03/03/24 14:00 03/17/24 06:13 Heparin Sodium 5,000 Units/Ml Vial SUB-Q 5,000 units Q8HR JASON Administration Dextrose 1,000 mls @ 100 mls/hr 02/28/24 19:23 Dextrose 5% 1,000 Ml IVPB PRN PRN Hypoglycemia Protocol Cefepime HCl 2 gm in 50 mls @ 100 mls/hr 03/17/24 09:00 03/21/24 09:25 Maxipime 2 Gm/Ns 50 Ml IVPB 03/23/24 21:29 Infused Q12H JASON Infusion Insulin Aspart 3 - 6 units 03/15/24 17:00 03/21/24 12:51 Insulin Aspart (*Bkc) 100 Units/Ml SUB-Q 3 units Q4HR JASON Administration Protocol Insulin Glargine 55 units 03/15/24 09:00 03/16/24 10:44 Insulin Glargine (*Bkc) 100 Units/Ml SUB-Q 55 units DAILY JASON Administration Labetalol HCl 20 mg 03/08/24 10:06 03/08/24 16:48 Labetalol Hcl Inj 100 Mg/20 Ml Vial IV PUSH 20 mg Q4H PRN Administration SBP > 160 and HR> 60 -1st choice Morphine Sulfate 2 mg 03/19/24 19:39 03/21/24 14:04 Morphine Sulfate (*Crx) 2 Mg/Ml Inj IV PUSH 2 mg Q2HR PRN Administration Pain Rated 7-10 Pantoprazole Sodium 40 mg 03/02/24 09:00 03/21/24 08:57 Pantoprazole Sodium Iv 40 Mg Vial IV PUSH 40 mg Q12HR JASON Administration Sodium Chloride 10 ml 02/29/24 06:00 03/21/24 14:04 Central Line Flush IV PUSH 10 ml Q8HR JASON Administration Sodium Chloride 20 ml 02/28/24 23:37 Central Line Flush IV PUSH PRN PRN after blood draws Sodium Chloride 20 ml 03/21/24 08:57 Central Line Flush IV PUSH PRN PRN after blood draws Sodium Chloride 10 ml 03/21/24 08:57 Central Line Flush IV PUSH PRN PRN with TPN bag changes Sodium Chloride 10 ml 03/21/24 14:00 03/21/24 14:04 Central Line Flush IV PUSH 10 ml Q8HR JASON Administration Radiology Results: ITS Impressions Lower Extremity CTA 02/28/24 14:54 IMPRESSION: 1. 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 2. Moderate stenosis of right popliteal artery. 3. Osteomyelitis involving first proximal and distal phalanges and head of first metatarsal. Head CT 02/29/24 05:55 Impression: No intracranial hemorrhage, mass, or acute infarct. Stable chronic encephalomalacia in the high left parietal lobe. Atrophy and chronic white matter changes, as above. Chest/Abdomen/Pelvis CTA 02/29/24 06:02 Impression: Extensive right upper lobe consolidation and more mild right middle lobe consolidation, consistent with pneumonia. Consider aspiration pneumonia. Moderate to large right pleural effusion with complete atelectasis of the right lower lobe. Moderate left pleural effusion with minimal left basilar atelectasis. Small pericardial effusion. No definite acute abnormality in the abdomen or pelvis. Chronic compression fractures, as above. Renal Ultrasound 03/03/24 15:45 IMPRESSION: 1. Normal kidneys without hydronephrosis. 2. Small amount of ascites in the abdomen and pelvis. Venous Doppler Study 03/11/24 13:58 IMPRESSION: 1. Patent bilateral upper extremity veins. No evidence of venous thrombosis. Abdomen Ultrasound 03/13/24 16:52 IMPRESSION: 1. No etiology for abnormal liver function tests. 2. Normal hepatic veins and main portal vein. Right and left portal veins and proper hepatic artery not evaluated. 3. Right pleural effusion. Vascular Ultrasound 03/13/24 16:52 IMPRESSION: 1. No etiology for abnormal liver function tests. 2. Normal hepatic veins and main portal vein. Right and left portal veins and proper hepatic artery not evaluated. 3. Right pleural effusion. Chest/Abdomen/Pelvis CT 03/16/24 21:51 IMPRESSION: Anasarca Large pleural effusions with prominent compressive atelectasis of the lower lobes especially, dependent atelectasis of the middle and upper lobes Heart size. Prominent coronary artery atherosclerotic calcifications Minimal pericardial effusion Prominent diffuse thickening of urinary bladder wall suggesting cystitis area Ha catheter in bladder lumen Very prominent amount of fluid and large fluid level within the stomach despite presence of NG tube T11 and L1 moderate anterior wedge compression fractures, likely chronic Thoracentesis Ultrasound 03/18/24 10:27 IMPRESSION: 1. Successful ultrasound-guided thoracentesis yielding 550 mL of doris-colored fluid. Chest X-Ray 03/21/24 09:06 IMPRESSION: 1. PICC tip at the superior cavoatrial junction. 2. Stable moderate-sized pleural effusions. 3. Stable airspace opacities in the perihilar regions and at the lung bases, consistent with atelectasis versus pneumonia. Modified Barium Swallow 03/21/24 15:25 IMPRESSION: 1. Aspiration of thin liquids and pudding. 2. Please refer to the speech therapy report for recommendations. Abdomen X-Ray 03/21/24 15:56 IMPRESSION: 1. Nasogastric tube tip in the stomach. 2. Moderate-sized right and small left pleural effusions. Labs Labs: Laboratory Results - last 24 hr 03/20/24 03/21/24 03/21/24 20:49 00:03 04:52 WBC 10.8 H RBC 3.09 L Hgb 8.7 L Hct 29.1 L MCV 94.2 MCH 28.2 MCHC 29.9 L RDW 19.2 H Plt Count 337 MPV 9.7 Sodium 149 H Potassium 3.4 Chloride 113 H Carbon Dioxide 29 Anion Gap 7 BUN 19 Creatinine 0.80 Estim Creat Clear Calc 90 Estimated GFR > 60 Glucose 193 H POC Capillary Glucose 184 H 207 H Calcium 8.1 L Magnesium 2.4 H Total Bilirubin 1.0 AST 36 ALT 47 Alkaline Phosphatase 191 H Total Protein 6.0 L Albumin 2.9 L 03/21/24 12:48 WBC RBC Hgb Hct MCV MCH MCHC RDW Plt Count MPV Sodium Potassium Chloride Carbon Dioxide Anion Gap BUN Creatinine Estim Creat Clear Calc Estimated GFR Glucose POC Capillary Glucose 216 H Calcium Magnesium Total Bilirubin AST ALT Alkaline Phosphatase Total Protein Albumin
[2024-03-21 18:18] LABS: Glucose Point of Care 183 mg/dl (65-105)
[2024-03-21 20:08] LABS: Glucose Point of Care 201 mg/dl (65-105)
[2024-03-22] VITALS (31 sets, daily range): BP systolic 85–148; BP diastolic 52–89; PULSE 94–148; RESP 12–36; TEMP 36.7–37.3; O2SAT 91–100
[2024-03-22 01:31] LABS: Glucose Point of Care 159 mg/dl (65-105)
[2024-03-22] MEDS: IPRATROPIUM 0.5 MG/ALBUTEROL SULFATE 2.5 MG AMPUL.NEB 3 ML INHALATION ×4 (02:07→21:08)
--- NOTE | 2024-03-22 03:17 | PC.NURSE ---
At approx 2315 RN found patient's NG tube mostly withdrawn. Dr. Collins was notified at 0114 that 4 attempts to reinsert were tried unsuccessfully. Another attempt was tried at 0300 without success. Patient has difficulty swallowing as instructed during insertion process and tube continues to curl up inside the patient's mouth. Tube feeding has been on hold since this time.
[2024-03-22 05:30] LABS: Glucose Point of Care 165 mg/dl (65-105)
[2024-03-22] MEDS: CENTRAL LINE FLUSH 10 ML IV PUSH ×5 (06:20→21:02)
--- NOTE | 2024-03-22 09:10 | P.PNINT_ITS ---
Progress Note: A&P Assessment and Plan (1) Acute respiratory failure with hypoxia: Code(s): J96.01 - Acute respiratory failure with hypoxia Status: Acute Assessment and Plan: Acute respiratory failure likely related to cardiac arrest, aspiration pneumonia, NSTEMI, hypoxia, septic shock Worsening likely secondary to ARDS versus pulmonary edema Intubated 02/27 02/28 Chest CTA: Extensive right upper lobe consolidation and more mild right middle lobe consolidation, consistent with pneumonia. Consider aspiration pneumonia.Moderate to large right pleural effusion with complete atelectasis of the right lower lobe. Moderate left pleural effusion with minimal left basilar atelectasis. Small pericardial effusion. No definite acute abnormality in the abdomen or pelvis. Chronic compression fractures, as above . -03/07 right thoracentesis with 1 L fluid removed -03/08 left-sided thoracentesis 550 mL -03/11: patient was in pressure support ventilation 02/18, with decrease tidal volumes in the upper 200s. place patient back on CMV, I have asked the bedside RN to decrease the Precedex infusion once patient is more awake will place back on spontaneous breathing trials 03/12: Place patient on SBT 04/17, low tidal volumes, low respiratory rate. Patient had replaced back on CMV mode of ventilation. -even on ASV patient is breathing only 7-8 times a minute 03/13: Off Precedex infusion overnight, placed patient on pressure support ventilation 04/17, initially did well but not significantly tachycardic and tachypneic and in respiratory distress, patient was placed back on CMV mode of ventilation and low-dose was 03/14 8/5 PSV SBT done for more than 1 hour. RSBI, ABG and Vitals acceptable. Pt awake and following commands. Patient was extubated. Initially patient did well and was on nasal cannula and was able to communicate. Over 12 hours patient became more hypoxic with increased respiratory distress and tachypnea. I spoke to patient post extubation and was agreeable to re-intubation if needed and stated that 'he is not ready to ' and 'do what ever it takes'. He was re intubated at night. I also mentioned to him that he may need tracheostomy and PEG tube placement if he gets we intubated and is not weanable. He told me 'to proceed with it if needed'. Solu-Medrol IV given for airway edema and will be continued for 24 hours -completed course of Solu-Medrol -continue bronchodilators -CT scan shows large pleural effusions bilaterally. I will request IR for thoracentesis.. Patient is on minimal ventilator setting but has failed trials initially multiple times and then once extubated he was reintubated within 12 hours. I will treat try again after thoracentesis to see patient is weanable from the vent otherwise will proceed with trach and PEG as patient has been on ventilator for more than 2 weeks. 03/17 right thoracentesis 1 L fluid was removed 03/18 left thoracentesis 550 mL fluid was removed Will also continue diuretics. 03/19 patient was extubated after weaning trial 03/20 continue nasal cannula, BiPAP p.r.n., hold diuretics, incentive spirometry, spoke to patient after extubation yesterday he is willing to be intubated if needed and proceed with trach and PEG if needed hopefully we can avoid that situation 03/21 patient continues to require BiPAP intermittently and tolerates nasal cannula. He appears quite weak although he does have borderline cough. Cont inue incentive spirometry. P.r.n. BiPAP. BiPAP at night. Nasal cannula as tolerated. Patient remains at risk of requiring intubation. I spoke to patient again and mention that to him and he verbalized understanding by noting his head. I will check chest x-ray. Continue ICU monitoring 03/22 discussed with the patient emphasized importance of using BiPAP for increased work of breathing and at night due to his deconditioning and weakness. He is currently saturating on nasal cannula and appears not in any respiratory distress. (2) Elevated LFTs: Code(s): R79.89 - Other specified abnormal findings of blood chemistry Status: Acute Assessment and Plan: 03/13: Significant elevation in LFTs, AST 2280, ALT 988, alk-phos 722 -patient has been hemodynamically stable, no hypotension noted in the last 24-48 hours -statin discontinued. Hold Tylenol -no tenderness in the right upper, lower quadrant or epigastric region on exam -negative vital hepatitis panel, right upper quadrant ultrasound with Doppler negative for hepatic or portal vein thrombosis -patient evaluated by GI -levels improving. Monitor (3) Cardiac arrest with pulseless electrical activity: Code(s): I46.9 - Cardiac arrest, cause unspecified Status: Acute Assessment and Plan: Cardiac arrest, secondary to unknown etiology. Possible aspiration pneumonia, NSTEMI, hypoxia, septic shock, infection -see code blue sheet for the details -patient currently intubated, vasopressors for blood pressure support have been weaned off -appreciate cardiology following the patient 02/29/2024 echocardiogram Summary 1. Technically difficult study with limited views. 2. Left ventricular chamber dimension is normal. 3. Left ventricular systolic function is mildly reduced, estimated at 45-50%. The apex appears to be hypokinetic. 4. There is mildly increased left ventricular wall thickness. 5. The left ventricular diastolic function is grade I diastolic dysfunction. 6. Right ventricular systolic function is normal. 7. Left atrial chamber dimension is moderately enlarged. 8. There is mild to moderate tricuspid valve regurgitation. 9. There is small anterior pericardial effusion. (4) Septic shock: Code(s): A41.9 - Sepsis, unspecified organism; R65.21 - Severe sepsis with septic shock Status: Acute Assessment and Plan: Resolved Patient in shock, likely related to the gangrene, aspiration pneumonia, status post cardiac arrest 02/28/2024: Blood cultures have been obtained and negative Off vasopressors and IV fluids Status post 10 days of antibiotics 03/16 low-grade fever increase in WBC CT scan as above, repeat blood cultures and sputum pending UA suggestive of UTI. Urine cultures pending. Ha has been changed. Continue cefepime (5) NSTEMI (non-ST elevated myocardial infarction): Code(s): I21.4 - Non-ST elevation (NSTEMI) myocardial infarction Status: Acute Assessment and Plan: -appreciate cardiology evaluation and recommendation -Continue aspirin and high-dose a statin -will hold Brilinta. Resumption per General surgery - beta-brayden, losartan are on hold due to soft blood pressure. Will resume beta-brayden -03/02 heparin infusion was discontinued after 48 hours for NSTEMI by cardiology (6) Gangrene of right foot: Code(s): I96 - Gangrene, not elsewhere classified Status: Acute Assessment and Plan: CTA showed peripheral arterial disease with total occlusion of the right anterior and posterior tibial arteries and right peroneal artery with distal reconstitution of peroneal artery. This extensive gangrene of the right foot with gas seen on CT of the foot. General surgery spoke to the patient in the ER on the day of admission on 02/27 patient at that time agreed for below-knee amputation. Plan was to do a below- knee amputation on 02/29/2024 but patient had a cardiac arrest that night secondary to sepsis. Surgery at that time was deferred. Patient now is intubated sedated and unable to sign his consent.. Patient has no family and for many years at the residential has had no visitor. He has 1 son which no one has been able to get hold off right several attempts. Considering patient has gangrene of the foot with no vascular supply leading to sepsis and if untreatable lead to his , Dr. Johns will proceed with amputation today, 03/05/2024. Dr. Collins and Dr. Johns has signed 2 physician consent considering patient's clearly expressed wishes prior to cardiac arrest at the time of admission, his current situation and inability to sign the consent form by himself at this time. 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 -complete 5 days of clindamycin 03/13: Discussed with surgery, there is flexion contractures of his amputation which may hinder in him getting prosthetics, patient may require above knee amputation (7) Osteomyelitis of toe of right foot: Code(s): M86.9 - Osteomyelitis, unspecified Status: Chronic Assessment and Plan: As above (8) Peripheral vascular disease: Code(s): I73.9 - Peripheral vascular disease, unspecified Status: Chronic Assessment and Plan: Patient has history of peripheral vascular disease, coronary artery disease -started on aspirin, patient will require Brilinta since he had a STEMI in 2020 but currently holding Brilinta due to surgery and bleeding (9) Type 2 diabetes mellitus: Qualifiers: 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 complication status: with other specified complication 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 alf insulin use: with alf use Qualified Code(s): E11.69 - Type 2 diabetes mellitus with other specified complication; 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 Code(s): E11.9 - Type 2 diabetes mellitus without complications Status: Acute Assessment and Plan: Currently on sliding scale insulin, Accu-Cheks Hemoglobin A1c this admission is 8.2 Lantus is on hold as patient is currently NPO (10) Chronic obstructive pulmonary disease: Code(s): J44.9 - Chronic obstructive pulmonary disease, unspecified Status: Chronic Assessment and Plan: Continue DuoNebs -continue Symbicort (11) Electrolyte abnormality: Code(s): E87.8 - Other disorders of electrolyte and fluid balance, not elsewhere classified Status: Acute Assessment and Plan: Hypernatremia, hold diuretics. Patient was given 500 mL of D5 water Potassium replaced Repeat labs pending (12) Ileus: Code(s): K56.7 - Ileus, unspecified Status: Acute Assessment and Plan: CT scan shows significant amount of tube feeds collected in the stomach. Patient also had high residuals. Patient has already been on Reglan. Bowel sounds are present but decreased. Tube feeds are now off (13) Sinus tachycardia: Code(s): R00.0 - Tachycardia, unspecified Status: Acute Assessment and Plan: Does not appear in any respiratory distress. Continue BiPAP p.r.n.. Restart beta-brayden once patient is able to take p.o. (14) Dysphagia: Code(s): R13.10 - Dysphagia, unspecified Status: Acute Assessment and Plan: Patient failed his bedside swallow evaluation and a modified barium swallow study was done yesterday which showed aspiration of thin liquids and pudding Patient had NG tube inserted and tube feeds were started which he pulled it out overnight. I will request Radiology to place Dobbhoff under fluoro guidance for resumption of tube feeds and admission of pills Plan DVT prophylaxis: Heparin subQ Stress ulcer prophylaxis: Protonix Nutrition: npo. Insert Dobbhoff tube today Code Status: Full code. Patient was encouraged to do Incentive spirometry. Consult PT OT. 03/15 Patient has no family available. Patient was extubated on 03/14 and I spoke to patient post extubation. I mentioned possibility of him needing re- intubation and he was agreeable stating that he is not ready to at this time. He stated that do whatever needs to be done to keep me alive. I also mentioned to him that if he gets reintubated and is unable to be weaned he will need tracheostomy and PEG tube placement and he states that he is agreeable to do it if needed. He did mention that he has some nephews in area which can be contacted. regional sales coordinator was provided that information. 03/19 I confirmed with patient again regarding his code status he is willing to get reintubated if needed and is willing to proceed with trach and PEG if needed. He wishes to be full code. Critical Care Time Spent: 35 minutes Due to a high probability of clinically significant, life threatening deterioration, the patient required my highest level of preparedness to inte rvene emergently and I personally spent this critical care time directly and personally managing the patient. This critical care time included obtaining a history; examining the patient; pulse oximetry; ordering and review of studies; arranging urgent treatment with development of a management plan; evaluation of patient's response to treatment; frequent reassessment; and discussions with other providers. It was exclusive of separately billable procedures and treating other patients and teaching time. Please see Assessment and Plan section and the rest of the note for further information on patient assessment and treatment This dictation may have been done utilizing a voice recognition system. Attempts have been made to correct errors. However, there may be uncorrected grammatical, spelling, and recognitions errors present. Subjective Date/time seen: 03/22/24 Overnight patient pulled his NG tube out. Repeat attempt to replace NG tube worse unsuccessful. Patient also refused to wear BiPAP. This morning he states he would like some water and food and states that he is fine. He feels tired and denies any pain or shortness of breath. He is alert awake but confused. Moves all extremities. On nasal cannula. Urine output on the lower side. Interval history: Reason for consult: Status post PEA arrest, right foot gangrene with cellulitis, shock 02/27: Intubated 03/05:Right below-knee amputation with placement of posterior Ortho Glass splint 03/14: extubated and reintubated 03/17 right-sided thoracentesis and 1 L fluid was removed 03/18: Left thoracentesis and 550 mL fluid was removed 03/19 extubated Review of Systems Review of Systems: ROS unobtainable: Yes unobtainable due to endotracheal tube, unobtainable due to medical condition and unobtainable due to mental status Exam Narrative: General: Patient alert awake no acute distress HEENT:, pupils are equal and reactive from a sclera is clear Neck:? supple Respiratory:? Coarse breath sounds bilaterally, decreased at bases, adequate air entry, no wheezing Cardiac:? S1-S2 normal, regular rate and rhythm Abdomen:? Soft, nontender, nondistended, bowel sounds are decreased but present Extremities:? Right BKA stump under the dressing. Left dorsalis pedis is dopplerable Neuro:? Patient is awake alert follows simple commands with all extremities. He is only partially oriented. He is overall generalized weak Skin:? Patient has maceration of his perianal area, pressure ulcer on his buttocks. Psych:? Normal speech and affect Objective Data Vital Signs Vital Signs: Vital Signs - 24 hr 03/21/24 09:31 03/21/24 09:30 03/21/24 09:43 Temperature Pulse Rate 121 H 124 H Respiratory Rate 23 H 23 H Blood Pressure Pulse Oximetry 100 Oxygen Delivery Nasal Cannula Oxygen Flow Rate 3 Fraction of Inspired Oxygen 03/21/24 10:01 03/21/24 10:00 03/21/24 10:00 Temperature 37.3 C Pulse Rate 122 H 121 H Respiratory Rate 26 H Blood Pressure 118/72 Pulse Oximetry 99 99 Oxygen Delivery Nasal Cannula Oxygen Flow Rate 2 Fraction of Inspired Oxygen 03/21/24 12:00 03/21/24 12:00 03/21/24 12:00 Temperature 37.2 C Pulse Rate 115 H 115 H 115 H Respiratory Rate 21 H 21 H Blood Pressure 142/74 H Pulse Oximetry 98 98 Oxygen Delivery Nasal Cannula Oxygen Flow Rate 2 Fraction of Inspired Oxygen 30 03/21/24 14:00 03/21/24 14:00 03/21/24 14:54 Temperature 37.2 C Pulse Rate 121 H 121 H 123 H Respiratory Rate 23 H 23 H Blood Pressure 125/70 Pulse Oximetry 96 Oxygen Delivery Oxygen Flow Rate Fraction of Inspired Oxygen 03/21/24 15:04 03/21/24 16:00 03/21/24 16:00 Temperature Pulse Rate 121 H 118 H 118 H Respiratory Rate 23 H 22 H Blood Pressure Pulse Oximetry 96 Oxygen Delivery Nasal Cannula Oxygen Flow Rate 2 Fraction of Inspired Oxygen 30 03/21/24 16:00 03/21/24 18:00 03/21/24 18:00 Temperature 37.1 C 37.0 C Pulse Rate 118 H 115 H 115 H Respiratory Rate 22 H 21 H Blood Pressure 124/70 123/70 Pulse Oximetry 97 97 Oxygen Delivery Oxygen Flow Rate Fraction of Inspired Oxygen 03/21/24 19:47 03/21/24 20:37 03/21/24 20:41 Temperature 36.9 C Pulse Rate 117 H 121 H Respiratory Rate 24 H 27 H Blood Pressure 121/66 Pulse Oximetry 95 97 Oxygen Delivery Nasal Cannula Oxygen Flow Rate 2 Fraction of Inspired Oxygen 03/21/24 20:53 03/21/24 20:00 03/21/24 22:00 Temperature 36.9 C 36.7 C Pulse Rate 119 H 118 H 111 H Respiratory Rate 25 H 24 H 18 Blood Pressure 123/70 114/64 Pulse Oximetry 95 95 Oxygen Delivery Oxygen Flow Rate Fraction of Inspired Oxygen 03/21/24 20:00 03/21/24 22:00 03/21/24 20:00 Temperature Pulse Rate 121 H 118 H Respiratory Rate Blood Pressure Pulse Oximetry 98 Oxygen Delivery Nasal Cannula Oxygen Flow Rate 2 Fraction of Inspired Oxygen 03/22/24 00:00 03/22/24 02:07 03/22/24 02:18 Temperature 36.9 C Pulse Rate 116 H 115 H 116 H Respiratory Rate 26 H 23 H 25 H Blood Pressure 114/63 Pulse Oximetry 94 Oxygen Delivery Oxygen Flow Rate Fraction of Inspired Oxygen 03/22/24 00:00 03/22/24 00:00 03/22/24 02:00 Temperature Pulse Rate 116 H 112 H Respiratory Rate Blood Pressure Pulse Oximetry 94 Oxygen Delivery Nasal Cannula Oxygen Flow Rate 2 Fraction of Inspired Oxygen 03/22/24 02:00 03/22/24 04:00 03/22/24 04:00 Temperature 36.7 C Pulse Rate 112 H 116 H Respiratory Rate 22 H Blood Pressure 130/76 Pulse Oximetry 96 96 Oxygen Delivery Nasal Cannula Oxygen Flow Rate 2 Fraction of Inspired Oxygen 03/22/24 04:00 03/22/24 06:00 03/22/24 06:00 Temperature 36.9 C 36.9 C Pulse Rate 116 H 116 H 116 H Respiratory Rate 25 H 24 H Blood Pressure 118/64 131/73 Pulse Oximetry 96 97 Oxygen Delivery Oxygen Flow Rate Fraction of Inspired Oxygen 03/22/24 07:37 03/22/24 07:37 03/22/24 07:44 Temperature Pulse Rate 116 H 116 H Respiratory Rate 24 H 24 H Blood Pressure Pulse Oximetry 96 Oxygen Delivery Nasal Cannula Oxygen Flow Rate 2 Fraction of Inspired Oxygen Intake/Output Intake/Output: Intake & Output 03/19/24 03/20/24 03/21/24 03/22/24 23:59 23:59 23:59 23:59 Intake Total 812.3 100 180 0 Output Total 3300 1050 700 400 Balance -2487.7 -950 -520 -400 Meds/Results Medications: Active Medications Generic Name Dose Route Start Last Admin Trade Name Freq PRN Reason Stop Dose Admin Acetaminophen 500 mg 03/08/24 10:18 03/13/24 09:24 Acetaminophen 500 Mg Tablet FEED TUBE 500 mg Q6H PRN Administration Pain Rated 1-3 Albuterol/Ipratropium 3 ml 02/29/24 02:00 03/22/24 07:37 Ipratropium 0.5 Mg/Albuterol Sulfate 2.5 Mg Ampul.Neb 3 Ml INHALATION 3 ml Q6HRT JASON Administration Alteplase, Recombinant 2 mg 03/06/24 09:45 03/06/24 13:10 Alteplase 2 Mg Vial (Cathflo) IV PUSH 2 mg ONCE PRN Administration Line Occlusion Aspirin 81 mg 03/09/24 08:00 03/21/24 08:56 Aspirin 81 Mg Chewable Tablet FEED TUBE Not Given DAILY@0800 [facility] Dextrose 12.5 gm 02/28/24 19:23 Dextrose 50% 25 Gm/50 Ml Syringe IV PUSH PRN PRN Hypoglycemia Protocol Glucagon 1 mg 02/28/24 19:23 Glucagon For Inj 1 Mg Vial IM PRN PRN Hypoglycemia Protocol Glucose 15 gm 03/08/24 10:19 Glucose Oral Gel 15 Gm Of Glucse In 37.5 Gm Tube FEED TUBE PRN PRN Hypoglycemia Protocol Heparin Sodium (Porcine) 5,000 units 03/03/24 14:00 03/17/24 06:13 Heparin Sodium 5,000 Units/Ml Vial SUB-Q 5,000 units Q8HR JASON Administration Dextrose 1,000 mls @ 100 mls/hr 02/28/24 19:23 Dextrose 5% 1,000 Ml IVPB PRN PRN Hypoglycemia Protocol Cefepime HCl 2 gm in 50 mls @ 100 mls/hr 03/17/24 09:00 03/21/24 20:24 Maxipime 2 Gm/Ns 50 Ml IVPB 03/23/24 21:29 100 mls/hr Q12H JASON Administration Insulin Aspart 3 - 6 units 03/15/24 17:00 03/22/24 05:30 Insulin Aspart (*Bkc) 100 Units/Ml SUB-Q Not Given Q4HR [facility] Protocol Insulin Glargine 55 units 03/15/24 09:00 03/16/24 10:44 Insulin Glargine (*Bkc) 100 Units/Ml SUB-Q 55 units DAILY JASON Administration Labetalol HCl 20 mg 03/08/24 10:06 03/08/24 16:48 Labetalol Hcl Inj 100 Mg/20 Ml Vial IV PUSH 20 mg Q4H PRN Administration SBP > 160 and HR> 60 -1st choice Morphine Sulfate 2 mg 03/19/24 19:39 03/21/24 20:36 Morphine Sulfate (*Crx) 2 Mg/Ml Inj IV PUSH 2 mg Q2HR PRN Administration Pain Rated 7-10 Pantoprazole Sodium 40 mg 03/02/24 09:00 03/21/24 20:17 Pantoprazole Sodium Iv 40 Mg Vial IV PUSH 40 mg Q12HR JASON Administration Sodium Chloride 10 ml 02/29/24 06:00 03/21/24 20:41 Central Line Flush IV PUSH 10 ml Q8HR JASON Administration Sodium Chloride 20 ml 02/28/24 23:37 Central Line Flush IV PUSH PRN PRN after blood draws Sodium Chloride 20 ml 03/21/24 08:57 Central Line Flush IV PUSH PRN PRN after blood draws Sodium Chloride 10 ml 03/21/24 08:57 Central Line Flush IV PUSH PRN PRN with TPN bag changes Sodium Chloride 10 ml 03/21/24 14:00 03/22/24 06:20 Central Line Flush IV PUSH 10 ml Q8HR JASON Administration Radiology Results: ITS Impressions Lower Extremity CTA 02/28/24 14:54 IMPRESSION: 1. 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 2. Moderate stenosis of right popliteal artery. 3. Osteomyelitis involving first proximal and distal phalanges and head of first metatarsal. Head CT 02/29/24 05:55 Impression: No intracranial hemorrhage, mass, or acute infarct. Stable chronic encephalomalacia in the high left parietal lobe. Atrophy and chronic white matter changes, as above. Chest/Abdomen/Pelvis CTA 02/29/24 06:02 Impression: Extensive right upper lobe consolidation and more mild right middle lobe consolidation, consistent with pneumonia. Consider aspiration pneumonia. Moderate to large right pleural effusion with complete atelectasis of the right lower lobe. Moderate left pleural effusion with minimal left basilar atelectasis. Small pericardial effusion. No definite acute abnormality in the abdomen or pelvis. Chronic compression fractures, as above. Renal Ultrasound 03/03/24 15:45 IMPRESSION: 1. Normal kidneys without hydronephrosis. 2. Small amount of ascites in the abdomen and pelvis. Venous Doppler Study 03/11/24 13:58 IMPRESSION: 1. Patent bilateral upper extremity veins. No evidence of venous thrombosis. Abdomen Ultrasound 03/13/24 16:52 IMPRESSION: 1. No etiology for abnormal liver function tests. 2. Normal hepatic veins and main portal vein. Right and left portal veins and proper hepatic artery not evaluated. 3. Right pleural effusion. Vascular Ultrasound 03/13/24 16:52 IMPRESSION: 1. No etiology for abnormal liver function tests. 2. Normal hepatic veins and main portal vein. Right and left portal veins and proper hepatic artery not evaluated. 3. Right pleural effusion. Chest/Abdomen/Pelvis CT 03/16/24 21:51 IMPRESSION: Anasarca Large pleural effusions with prominent compressive atelectasis of the lower lobes especially, dependent atelectasis of the middle and upper lobes Heart size. Prominent coronary artery atherosclerotic calcifications Minimal pericardial effusion Prominent diffuse thickening of urinary bladder wall suggesting cystitis area Ha catheter in bladder lumen Very prominent amount of fluid and large fluid level within the stomach despite presence of NG tube T11 and L1 moderate anterior wedge compression fractures, likely chronic Thoracentesis Ultrasound 03/18/24 10:27 IMPRESSION: 1. Successful ultrasound-guided thoracentesis yielding 550 mL of doris-colored fluid. Chest X-Ray 03/21/24 09:06 IMPRESSION: 1. PICC tip at the superior cavoatrial junction. 2. Stable moderate-sized pleural effusions. 3. Stable airspace opacities in the perihilar regions and at the lung bases, consistent with atelectasis versus pneumonia. Modified Barium Swallow 03/21/24 15:25 IMPRESSION: 1. Aspiration of thin liquids and pudding. 2. Please refer to the speech therapy report for recommendations. Abdomen X-Ray 03/21/24 15:56 IMPRESSION: 1. Nasogastric tube tip in the stomach. 2. Moderate-sized right and small left pleural effusions. Labs Labs: Laboratory Results - last 24 hr 03/21/24 03/21/24 03/21/24 12:48 18:14 20:05 POC Capillary Glucose 216 H 183 H 201 H 03/22/24 03/22/24 01:29 05:29 POC Capillary Glucose 159 H 165 H Quality VTE Prophylaxis VTE prophylaxis: pharmacologic ordered
[2024-03-22] MEDS: CEFEPIME 2 GM/NS 50 ML 2 GM/50 ML BAG IVPB ×2 (09:11→20:58)
[2024-03-22] MEDS: PANTOPRAZOLE SODIUM IV 40 MG VIAL IV PUSH ×2 (09:11→20:50)
[2024-03-22 09:36] LABS: Glucose Point of Care 181 mg/dl (65-105)
--- NOTE | 2024-03-22 10:26 | P.PNIM_ITS ---
Progress Note: A&P Assessment and Plan (1) Acute respiratory failure with hypoxia: Code(s): J96.01 - Acute respiratory failure with hypoxia Status: Acute Assessment and Plan: Acute respiratory failure likely related to cardiac arrest, aspiration pneumonia, NSTEMI, hypoxia, septic shock Worsening likely secondary to ARDS versus pulmonary edema Intubated 02/27 02/28 Chest CTA: Extensive right upper lobe consolidation and more mild right middle lobe consolidation, consistent with pneumonia. Consider aspiration pneumonia.Moderate to large right pleural effusion with complete atelectasis of the right lower lobe. Moderate left pleural effusion with minimal left basilar atelectasis. Small pericardial effusion. No definite acute abnormality in the abdomen or pelvis. Chronic compression fractures, as above . -03/07 right thoracentesis with 1 L fluid removed -03/08 left-sided thoracentesis 550 mL -03/11: patient was in pressure support ventilation 02/18, with decrease tidal volumes in the upper 200s. place patient back on CMV, I have asked the bedside RN to decrease the Precedex infusion once patient is more awake will place back on spontaneous breathing trials 03/12: Place patient on SBT 04/17, low tidal volumes, low respiratory rate. Patient had replaced back on CMV mode of ventilation. -even on ASV patient is breathing only 7-8 times a minute 03/13: Off Precedex infusion overnight, placed patient on pressure support ventilation 04/17, initially did well but not significantly tachycardic and tachypneic and in respiratory distress, patient was placed back on CMV mode of ventilation and low-dose was 03/14 8/5 PSV SBT done for more than 1 hour. RSBI, ABG and Vitals acceptable. Pt awake and following commands. Patient was extubated. Initially patient did well and was on nasal cannula and was able to communicate. Over 12 hours patient became more hypoxic with increased respiratory distress and tachypnea. I spoke to patient post extubation and was agreeable to re-intubation if needed and stated that 'he is not ready to ' and 'do what ever it takes'. He was re intubated at night. I also mentioned to him that he may need tracheostomy and PEG tube placement if he gets we intubated and is not weanable. He told me 'to proceed with it if needed'. Solu-Medrol IV given for airway edema and will be continued for 24 hours -completed course of Solu-Medrol -continue bronchodilators -CT scan shows large pleural effusions bilaterally. I will request IR for thoracentesis.. Patient is on minimal ventilator setting but has failed trials initially multiple times and then once extubated he was reintubated within 12 hours. I will treat try again after thoracentesis to see patient is weanable from the vent otherwise will proceed with trach and PEG as patient has been on ventilator for more than 2 weeks. 03/17 right thoracentesis 1 L fluid was removed 03/18 left thoracentesis 550 mL fluid was removed Will also continue diuretics. 03/19 patient was extubated after weaning trial 03/20 continue nasal cannula, BiPAP p.r.n., hold diuretics, incentive spirometry, spoke to patient after extubation yesterday he is willing to be intubated if needed and proceed with trach and PEG if needed hopefully we can avoid that situation 03/21 patient continues to require BiPAP intermittently and tolerates nasal cannula. He appears quite weak although he does have borderline cough. Cont inue incentive spirometry. P.r.n. BiPAP. BiPAP at night. Nasal cannula as tolerated. Patient remains at risk of requiring intubation. I spoke to patient again and mention that to him and he verbalized understanding by noting his head. I will check chest x-ray. Continue ICU monitoring 03/22 : Intubated (2) Elevated LFTs: Code(s): R79.89 - Other specified abnormal findings of blood chemistry Status: Acute Assessment and Plan: 03/13: Significant elevation in LFTs, AST 2280, ALT 988, alk-phos 722 -patient has been hemodynamically stable, no hypotension noted in the last 24-48 hours -statin discontinued. Hold Tylenol -no tenderness in the right upper, lower quadrant or epigastric region on exam -negative vital hepatitis panel, right upper quadrant ultrasound with Doppler negative for hepatic or portal vein thrombosis -patient evaluated by GI -levels improving. Monitor (3) Cardiac arrest with pulseless electrical activity: Code(s): I46.9 - Cardiac arrest, cause unspecified Status: Acute Assessment and Plan: Cardiac arrest, secondary to unknown etiology. Possible aspiration pneumonia, NSTEMI, hypoxia, septic shock, infection -see code blue sheet for the details -patient currently intubated, vasopressors for blood pressure support have been weaned off -appreciate cardiology following the patient 02/29/2024 echocardiogram Summary 1. Technically difficult study with limited views. 2. Left ventricular chamber dimension is normal. 3. Left ventricular systolic function is mildly reduced, estimated at 45-50%. The apex appears to be hypokinetic. 4. There is mildly increased left ventricular wall thickness. 5. The left ventricular diastolic function is grade I diastolic dysfunction. 6. Right ventricular systolic function is normal. 7. Left atrial chamber dimension is moderately enlarged. 8. There is mild to moderate tricuspid valve regurgitation. 9. There is small anterior pericardial effusion. (4) Septic shock: Code(s): A41.9 - Sepsis, unspecified organism; R65.21 - Severe sepsis with septic shock Status: Acute Assessment and Plan: Resolved Patient in shock, likely related to the gangrene, aspiration pneumonia, status post cardiac arrest 02/28/2024: Blood cultures have been obtained and negative Off vasopressors and IV fluids Status post 10 days of antibiotics 03/16 low-grade fever increase in WBC CT scan as above, repeat blood cultures and sputum pending UA suggestive of UTI. Urine cultures pending. Ha has been changed. Continue cefepime (5) NSTEMI (non-ST elevated myocardial infarction): Code(s): I21.4 - Non-ST elevation (NSTEMI) myocardial infarction Status: Acute Assessment and Plan: -appreciate cardiology evaluation and recommendation -Continue aspirin and high-dose a statin -will hold Brilinta. Resumption per General surgery - beta-brayden, losartan are on hold due to soft blood pressure. Will resume b eta-brayden -03/02 heparin infusion was discontinued after 48 hours for NSTEMI by cardiology (6) Gangrene of right foot: Code(s): I96 - Gangrene, not elsewhere classified Status: Acute Assessment and Plan: CTA showed peripheral arterial disease with total occlusion of the right anterior and posterior tibial arteries and right peroneal artery with distal reconstitution of peroneal artery. This extensive gangrene of the right foot with gas seen on CT of the foot. General surgery spoke to the patient in the ER on the day of admission on 02/27 patient at that time agreed for below-knee amputation. Plan was to do a below- knee amputation on 02/29/2024 but patient had a cardiac arrest that night secondary to sepsis. Surgery at that time was deferred. Patient now is intubated sedated and unable to sign his consent.. Patient has no family and for many years at the long term has had no visitor. He has 1 son which no one has been able to get hold off right several attempts. Considering patient has gangrene of the foot with no vascular supply leading to sepsis and if untreatable lead to his , Dr. Johns will proceed with amputation today, 03/05/2024. Dr. Collins and Dr. Johns has signed 2 physician consent considering patient's clearly expressed wishes prior to cardiac arrest at the time of admission, his current situation and inability to sign the consent form by himself at this time. 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 -complete 5 days of clindamycin 03/13: Discussed with surgery, there is flexion contractures of his amputation which may hinder in him getting prosthetics, patient may require above knee amputation (7) Osteomyelitis of toe of right foot: Code(s): M86.9 - Osteomyelitis, unspecified Status: Chronic Assessment and Plan: As above (8) Peripheral vascular disease: Code(s): I73.9 - Peripheral vascular disease, unspecified Status: Chronic Assessment and Plan: Patient has history of peripheral vascular disease, coronary artery disease -started on aspirin, patient will require Brilinta since he had a STEMI in 2020 but currently holding Brilinta due to surgery and bleeding (9) Type 2 diabetes mellitus: Qualifiers: 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 complication status: with other specified complication 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 watermelon inspector insulin use: with watermelon inspector use Qualified Code(s): E11.69 - Type 2 diabetes mellitus with other specified complication; Z79.4 - FDC (current) use of insulin Code(s): E11.9 - Type 2 diabetes mellitus without complications Status: Acute Assessment and Plan: Currently on sliding scale insulin, Accu-Cheks Hemoglobin A1c this admission is 8.2 Lantus is on hold as patient is currently NPO (10) Chronic obstructive pulmonary disease: Code(s): J44.9 - Chronic obstructive pulmonary disease, unspecified Status: Chronic Assessment and Plan: Continue DuoNebs -continue Symbicort (11) Electrolyte abnormality: Code(s): E87.8 - Other disorders of electrolyte and fluid balance, not elsewhere classified Status: Acute Assessment and Plan: Hypernatremia, hold diuretics. Patient was given 500 mL of D5 water Potassium replaced Repeat labs pending (12) Ileus: Code(s): K56.7 - Ileus, unspecified Status: Acute Assessment and Plan: CT scan shows significant amount of tube feeds collected in the stomach. Patient also had high residuals. Patient has already been on Reglan. Bowel sounds are present but decreased. Tube feeds are now off (13) Sinus tachycardia: Code(s): R00.0 - Tachycardia, unspecified Status: Acute Assessment and Plan: Does not appear in any respiratory distress. Continue BiPAP p.r.n.. Restart beta-brayden once patient is able to take p.o. (14) Dysphagia: Code(s): R13.10 - Dysphagia, unspecified Status: Acute Assessment and Plan: Patient failed his bedside swallow evaluation and a modified barium swallow study was done yesterday which showed aspiration of thin liquids and pudding Patient had NG tube inserted and tube feeds were started which he pulled it out overnight. I will request Radiology to place Dobbhoff under fluoro guidance for resumption of tube feeds and admission of pills Subjective Date/time seen: 03/22/24 10:26 Interval history: Pt underwent Dobbhoff placement. After sometime this afternoon patient devolped respiratory distress and emergently intubated. Review of Systems Review of Systems: 12 systems were reviewed and are negativ e except for as per HPI. All systems reviewed & are unremarkable except as noted in HPI and below (HPI) ROS unobtainable: Yes unobtainable due to endotracheal tube, unobtainable due to medical condition and unobtainable due to mental status Exam Narrative: General: Patient alert awake no acute distress HEENT:, pupils are equal and reactive from a sclera is clear Neck:? supple Respiratory:? Coarse breath sounds bilaterally, decreased at bases, adequate air entry, no wheezing Cardiac:? S1-S2 normal, regular rate and rhythm Abdomen:? Soft, nontender, nondistended, bowel sounds are decreased but present Extremities:? Right BKA stump under the dressing. Left dorsalis pedis is dopplerable Neuro:? Patient is awake alert follows simple commands with all extremities. He is only partially oriented. He is overall generalized weak Skin:? Patient has maceration of his perianal area, pressure ulcer on his buttocks. Psych:? Normal speech and affect Objective Data Vital Signs Vital Signs: Vital Signs - 24 hr 03/21/24 12:00 03/21/24 12:00 03/21/24 12:00 Temperature 98.9 F Pulse Rate 115 H 115 H 115 H Respiratory Rate 21 H 21 H Blood Pressure 142/74 H Pulse Oximetry 98 98 Oxygen Delivery Nasal Cannula Oxygen Flow Rate 2 Fraction of Inspired Oxygen 30 03/21/24 14:00 03/21/24 14:00 03/21/24 14:54 Temperature 98.9 F Pulse Rate 121 H 121 H 123 H Respiratory Rate 23 H 23 H Blood Pressure 125/70 Pulse Oximetry 96 Oxygen Delivery Oxygen Flow Rate Fraction of Inspired Oxygen 03/21/24 15:04 03/21/24 16:00 03/21/24 16:00 Temperature Pulse Rate 121 H 118 H 118 H Respiratory Rate 23 H 22 H Blood Pressure Pulse Oximetry 96 Oxygen Delivery Nasal Cannula Oxygen Flow Rate 2 Fraction of Inspired Oxygen 30 03/21/24 16:00 03/21/24 18:00 03/21/24 18:00 Temperature 98.8 F 98.6 F Pulse Rate 118 H 115 H 115 H Respiratory Rate 22 H 21 H Blood Pressure 124/70 123/70 Pulse Oximetry 97 97 Oxygen Delivery Oxygen Flow Rate Fraction of Inspired Oxygen 03/21/24 19:47 03/21/24 20:37 03/21/24 20:41 Temperature 98.5 F Pulse Rate 117 H 121 H Respiratory Rate 24 H 27 H Blood Pressure 121/66 Pulse Oximetry 95 97 Oxygen Delivery Nasal Cannula Oxygen Flow Rate 2 Fraction of Inspired Oxygen 03/21/24 20:53 03/21/24 20:00 03/21/24 22:00 Temperature 98.5 F 98.1 F Pulse Rate 119 H 118 H 111 H Respiratory Rate 25 H 24 H 18 Blood Pressure 123/70 114/64 Pulse Oximetry 95 95 Oxygen Delivery Oxygen Flow Rate Fraction of Inspired Oxygen 03/21/24 20:00 03/21/24 22:00 03/21/24 20:00 Temperature Pulse Rate 121 H 118 H Respiratory Rate Blood Pressure Pulse Oximetry 98 Oxygen Delivery Nasal Cannula Oxygen Flow Rate 2 Fraction of Inspired Oxygen 03/22/24 00:00 03/22/24 02:07 03/22/24 02:18 Temperature 98.5 F Pulse Rate 116 H 115 H 116 H Respiratory Rate 26 H 23 H 25 H Blood Pressure 114/63 Pulse Oximetry 94 Oxygen Delivery Oxygen Flow Rate Fraction of Inspired Oxygen 03/22/24 00:00 03/22/24 00:00 03/22/24 02:00 Temperature Pulse Rate 116 H 112 H Respiratory Rate Blood Pressure Pulse Oximetry 94 Oxygen Delivery Nasal Cannula Oxygen Flow Rate 2 Fraction of Inspired Oxygen 03/22/24 02:00 03/22/24 04:00 03/22/24 04:00 Temperature 98.1 F Pulse Rate 112 H 116 H Respiratory Rate 22 H Blood Pressure 130/76 Pulse Oximetry 96 96 Oxygen Delivery Nasal Cannula Oxygen Flow Rate 2 Fraction of Inspired Oxygen 03/22/24 04:00 03/22/24 06:00 03/22/24 06:00 Temperature 98.5 F 98.4 F Pulse Rate 116 H 116 H 116 H Respiratory Rate 25 H 24 H Blood Pressure 118/64 131/73 Pulse Oximetry 96 97 Oxygen Delivery Oxygen Flow Rate Fraction of Inspired Oxygen 03/22/24 07:37 03/22/24 07:37 03/22/24 07:44 Temperature Pulse Rate 116 H 116 H Respiratory Rate 24 H 24 H Blood Pressure Pulse Oximetry 96 Oxygen Delivery Nasal Cannula Oxygen Flow Rate 2 Fraction of Inspired Oxygen 03/22/24 08:00 Temperature 98.7 F Pulse Rate 119 H Respiratory Rate 26 H Blood Pressure 130/75 Pulse Oximetry 97 Oxygen Delivery Oxygen Flow Rate Fraction of Inspired Oxygen Intake/Output Intake/Output: Intake & Output 03/19/24 03/20/24 03/21/24 03/22/24 23:59 23:59 23:59 23:59 Intake Total 812.3 100 230 0 Output Total 3300 1050 700 400 Balance -2487.7 -950 -470 -400 Meds/Results Medications: Active Medications Generic Name Dose Route Start Last Admin Trade Name Freq PRN Reason Stop Dose Admin Acetaminophen 500 mg 03/08/24 10:18 03/13/24 09:24 Acetaminophen 500 Mg Tablet FEED TUBE 500 mg Q6H PRN Administration Pain Rated 1-3 Albuterol/Ipratropium 3 ml 02/29/24 02:00 03/22/24 07:37 Ipratropium 0.5 Mg/Albuterol Sulfate 2.5 Mg Ampul.Neb 3 Ml INHALATION 3 ml Q6HRT JASON Administration Alteplase, Recombinant 2 mg 03/06/24 09:45 03/06/24 13:10 Alteplase 2 Mg Vial (Cathflo) IV PUSH 2 mg ONCE PRN Administration Line Occlusion Aspirin 81 mg 03/09/24 08:00 03/21/24 08:56 Aspirin 81 Mg Chewable Tablet FEED TUBE Not Given DAILY@0800 JASON Dextrose 12.5 gm 02/28/24 19:23 Dextrose 50% 25 Gm/50 Ml Syringe IV PUSH PRN PRN Hypoglycemia Protocol Glucagon 1 mg 02/28/24 19:23 Glucagon For Inj 1 Mg Vial IM PRN PRN Hypoglycemia Protocol Glucose 15 gm 03/08/24 10:19 Glucose Oral Gel 15 Gm Of Glucse In 37.5 Gm Tube FEED TUBE PRN PRN Hypoglycemia Protocol Heparin Sodium (Porcine) 5,000 units 03/03/24 14:00 03/17/24 06:13 Heparin Sodium 5,000 Units/Ml Vial SUB-Q 5,000 units Q8HR JASON Administration Dextrose 1,000 mls @ 100 mls/hr 02/28/24 19:23 Dextrose 5% 1,000 Ml IVPB PRN PRN Hypoglycemia Protocol Cefepime HCl 2 gm in 50 mls @ 100 mls/hr 03/17/24 09:00 03/22/24 09:11 Maxipime 2 Gm/Ns 50 Ml IVPB 03/23/24 21:29 100 mls/hr Q12H JASON Administration Insulin Aspart 3 - 6 units 03/15/24 17:00 03/22/24 09:11 Insulin Aspart (*Bkc) 100 Units/Ml SUB-Q Not Given Q4HR [facility] Protocol Insulin Glargine 55 units 03/15/24 09:00 03/16/24 10:44 Insulin Glargine (*Bkc) 100 Units/Ml SUB-Q 55 units DAILY JASON Administration Labetalol HCl 20 mg 03/08/24 10:06 03/08/24 16:48 Labetalol Hcl Inj 100 Mg/20 Ml Vial IV PUSH 20 mg Q4H PRN Administration SBP > 160 and HR> 60 -1st choice Morphine Sulfate 2 mg 03/19/24 19:39 03/21/24 20:36 Morphine Sulfate (*Crx) 2 Mg/Ml Inj IV PUSH 2 mg Q2HR PRN Administration Pain Rated 7-10 Pantoprazole Sodium 40 mg 03/02/24 09:00 03/22/24 09:11 Pantoprazole Sodium Iv 40 Mg Vial IV PUSH 40 mg Q12HR JASON Administration Sodium Chloride 10 ml 02/29/24 06:00 03/21/24 20:41 Central Line Flush IV PUSH 10 ml Q8HR JASON Administration Sodium Chloride 20 ml 02/28/24 23:37 Central Line Flush IV PUSH PRN PRN after blood draws Sodium Chloride 20 ml 03/21/24 08:57 Central Line Flush IV PUSH PRN PRN after blood draws Sodium Chloride 10 ml 03/21/24 08:57 Central Line Flush IV PUSH PRN PRN with TPN bag changes Sodium Chloride 10 ml 03/21/24 14:00 03/22/24 06:20 Central Line Flush IV PUSH 10 ml Q8HR JASON Administration Radiology Results: ITS Impressions Lower Extremity CTA 02/28/24 14:54 IMPRESSION: 1. 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 2. Moderate stenosis of right popliteal artery. 3. Osteomyelitis involving first proximal and distal phalanges and head of first metatarsal. Head CT 02/29/24 05:55 Impression: No intracranial hemorrhage, mass, or acute infarct. Stable chronic encephalomalacia in the high left parietal lobe. Atrophy and chronic white matter changes, as above. Chest/Abdomen/Pelvis CTA 02/29/24 06:02 Impression: Extensive right upper lobe consolidation and more mild right middle lobe consolidation, consistent with pneumonia. Consider aspiration pneumonia. Moderate to large right pleural effusion with complete atelectasis of the right lower lobe. Moderate left pleural effusion with minimal left basilar atelectasis. Small pericardial effusion. No definite acute abnormality in the abdomen or pelvis. Chronic compression fractures, as above. Renal Ultrasound 03/03/24 15:45 IMPRESSION: 1. Normal kidneys without hydronephrosis. 2. Small amount of ascites in the abdomen and pelvis. Venous Doppler Study 03/11/24 13:58 IMPRESSION: 1. Patent bilateral upper extremity veins. No evidence of venous thrombosis. Abdomen Ultrasound 03/13/24 16:52 IMPRESSION: 1. No etiology for abnormal liver function tests. 2. Normal hepatic veins and main portal vein. Right and left portal veins and proper hepatic artery not evaluated. 3. Right pleural effusion. Vascular Ultrasound 03/13/24 16:52 IMPRESSION: 1. No etiology for abnormal liver function tests. 2. Normal hepatic veins and main portal vein. Right and left portal veins and proper hepatic artery not evaluated. 3. Right pleural effusion. Chest/Abdomen/Pelvis CT 03/16/24 21:51 IMPRESSION: Anasarca Large pleural effusions with prominent compressive atelectasis of the lower lobes especially, dependent atelectasis of the middle and upper lobes Heart size. Prominent coronary artery atherosclerotic calcifications Minimal pericardial effusion Prominent diffuse thickening of urinary bladder wall suggesting cystitis area Ha catheter in bladder lumen Very prominent amount of fluid and large fluid level within the stomach despite presence of NG tube T11 and L1 moderate anterior wedge compression fractures, likely chronic Thoracentesis Ultrasound 03/18/24 10:27 IMPRESSION: 1. Successful ultrasound-guided thoracentesis yielding 550 mL of doris-colored fluid. Modified Barium Swallow 03/21/24 15:25 IMPRESSION: 1. Aspiration of thin liquids and pudding. 2. Please refer to the speech therapy report for recommendations. Abdomen X-Ray 03/21/24 15:56 IMPRESSION: 1. Nasogastric tube tip in the stomach. 2. Moderate-sized right and small left pleural effusions. Labs Labs: Laboratory Results - last 24 hr 03/21/24 03/21/24 03/21/24 12:48 18:14 20:05 POC Capillary Glucose 216 H 183 H 201 H 03/22/24 03/22/24 03/22/24 01:29 05:29 09:08 POC Capillary Glucose 159 H 165 H 181 H Quality VTE Prophylaxis VTE prophylaxis: pharmacologic ordered Hospitalist [facility] Advance Care Plan I have confirmed that the patient's Advanced Care Plan is present, code status is documented, or surrogate decision maker is listed in patient medical record.: Yes Medication Reconciliation I have utilized all available resources to obtain, update and review the patients current medications (includes all prescriptions, OTC, herbals, cannabis, and nutritional supplements).: Yes
--- NOTE | 2024-03-22 11:14 | PM.EVENT ---
Event Note Event Note Event Note: In check on Dr. Bradley said to follow from a distance. Creatinine is normal.
[2024-03-22] MEDS: ALTEPLASE 2 MG VIAL (CATHFLO) IV PUSH ×2 (11:41→16:56)
[2024-03-22 12:12] LABS: Hematocrit 34.3 % (42.0-52.0); Mean Corpuscular HGB Conc 29.2 g/dl (32-36); Mean Corpuscular Hemoglobin 27.6 pg (26-34); Mean Corpuscular Volume 94.8 fl (80-100); Mean Platelet Volume 9.7 fl (7.4-10.4); Platelet Count Result 422 k/mm3 (150-375); Red Blood Count 3.62 M/mm3 (4.6-6.20); White Blood Count 13.5 K/mm3 (4.5-10.0)
[2024-03-22 12:20] LABS: Alanine Aminotransferase 42 U/L (6-50); Albumin Level 3.2 g/dL (3.5-5.1); Alkaline Phosphatase 189 U/L (38-126); Anion Gap 5 mmol/L (4-12); Aspartate Amino Transferase 36 U/L (17-59); Blood Urea Nitrogen 20 mg/dL (9-20); Calcium 8.4 mg/dL (8.4-10.2); Carbon Dioxide 31 mmol/L (22-30); Chloride 114 mmol/L (98-107); Estimated CRCL calculation 79 ml/min; Estimated Glomerular Filt Rate > 60; Glucose 186 mg/dL (65-110); Magnesium 2.4 mg/dL (1.6-2.3); Potassium 3.9 mmol/L (3.4-5.0); Sodium 150 mmol/L (137-145)
[2024-03-22] MEDS: MIDAZOLAM HCL (*CRX) 2 MG/2 ML VIAL 4 MG IV PUSH (12:21)
[2024-03-22] MEDS: ETOMIDATE 20 MG/10 ML AMPUL IV PUSH (12:22)
[2024-03-22] MEDS: SODIUM CHLORIDE 0.9% IV 1,000 ML 999 ML IV CONT (12:22)
[2024-03-22] MEDS: SUCCINYLCHOLINE CHLORIDE 20 MG/ML 10 ML VIAL 100 MG IV PUSH (12:22)
[2024-03-22] MEDS: FENTANYL 2,500MCG/NS250ML(*CRX 2,500 MCG/250 ML BAG IV CONT (12:23)
[2024-03-22] MEDS: MIDAZOLAM 100MG/NS 100ML(*CRX) 100 MG/100 ML BAG IV CONT (12:24)
--- NOTE | 2024-03-22 12:24 | WPDPROCEDUR ---
Procedures Intubation Intubation Date: 03/22/24 Intubation Time: 12:10 Consent: Patient in respiratory failure. He was encephalopathy ache and respiratory distress I spoke to patient regarding intubation and he noted his head affirmative. I had already spoken to patient multiple times before and he was agreeable to intubation if needed A pre-procedural Time-Out was completed immediately before starting the procedure and confirmed: Patient Identification, Site, Procedure, Patient Position and the Availability of Requisite Equipment: Yes Sedative: etomidate Mg given: 20 Paralytic: succinylcholine Mg given: 100 Laryngoscope: fiber optic video scope Assist device used: fiber optic device ET tube size: cuffed Tube secured depth (cm): 25 Tube secured location: lips Tube placement confirmation: visualized tube passing through cords, equal breath sounds bilaterally and no breath sounds over epigastrium Patient tolerated procedure: well Intubation complications: none Arterial Line Size (Gauge): 14
--- NOTE | 2024-03-22 12:25 | P.PNCROSS_ITS ---
Event Note Event Note Event Note: Patient went for Dobbhoff placement. On returning patient appeared working hard to breathe. He was tachypneic tachycardic with increased respiratory rate. He has been borderline when it comes respiratory status for last couple of days with close monitoring. He has been requiring BiPAP intermittently. He has failed his swallow study and required Dobbhoff placement. His mental status was poor. At this point we decided to reintubate the patient. This is his 3rd intubation. Patient was emergently intubated. Chest x-ray reviewed. Patient will need tracheostomy and PEG tube placement. I have consulted ENT and GI. Finally patient's son arrived at bedside and I spoke to him with his and patient's ex- in the conference room. I updated them in detail about the details of patient's admission presentation and hospital course till now. He states that he has not been touch with his dad for last 10 years. He is willing to be the POA at this time. I answered all his questions and explained him the patient is currently in respiratory failure with failure to wean requiring re- intubation x2, congestive Heart Care earlier, gangrene of right foot requiring amputation, sepsis, UTI, dysphagia and he will need trach and PEG. They understand and agree with patient's wishes to proceed with trach and PEG at this time. He was hoping the patient can go to a facility close to where he lives. Additional critical care time - 60 minutes
[2024-03-22 13:01] LABS: Glucose Point of Care 170 mg/dl (65-105)
--- NOTE | 2024-03-22 13:03 | PC.NURSE ---
RN off floor from 1110 to 1127 in radiology with patient for insertion of Dobbhoff NG tube. Placement of R.Nare Dobbhoff inserted at 70 cm, placed per radiologist.
--- NOTE | 2024-03-22 13:07 | PCPTNOTE ---
attempted PT eval, per RN pt is not appropriate for therapy, pt has a decline in respiratory status and is re-intubated, PT asked RN about her or MD cancelling therapy orders until the pt is appropriate for therapy evaluations
[2024-03-22 13:09] LABS: Alveolar/Arterial O2 Gradient 162.1 mmHg; Fractional Inspired Oxygen 50 %; HCO3 ABG 25.8 mEq/l (22.0-26.0); Oxygen Content ABG 12.9 %vol (16.0-22.0); Oxygen Saturation ABG 99.1 % (95.0-100.0); PCO2 ABG 37.1 mmHg (35.0-45.0); PO2 ABG 152.7 mmHg (80.0-100.0); PO2 FiO2 Ratio Arterial Blood 3.05 %; Total Hemoglobin 9.1 g/dL (12.0-18.0)
--- NOTE | 2024-03-22 13:09 | PC.NURSE ---
At 1200, this RN went to assess patient. Heart rate noted to increase to 140 beats per minute. Vascular access and phlebotomy at bedside trying to draw labs. Upon assessment of patient, noted to be short of breath, tachypneic with upper respiratory wheezing. Blood pressure elevated. RN notified MD Dr. Collins. Dr. Collins assessed at bedside, orders received to intubate. 100 mg of succinylcholine and 20 mg of Etomidate administered IV push at [address] Collins orders. Patient intubated successfully at 1210 with 7.5 ET tube secured by RT. ET tube advanced to 27 cm at the lip. Bilateral breath sound noted and color change noted on CO2 detector post intubation. Confirmed with chest X-ray. Patient given 4mg IV push versed post-intubation, orders for Fentanyl gtt at 50 mcg/hr starting and Versed gtt at 2mg/hr, verbal orders per Dr. Collins to give 500 cc NS bolus. OG tube placed and secured at 65 cm at the lip at 1225. All tubes confirmed placement by chest X-ray. RN to continue to monitor patient.
[2024-03-22 13:14] LABS: Device VENTILATOR; Site Drawn RIGHT RADIAL
[2024-03-22 13:15] LABS: Arterial Blood Gas PEEP 8 cmH2O; Arterial Blood Gas Tidal Volume 380 ml; Arterial Blood Gas Vent Mode CMV; Arterial Blood Gas Ventilator rate 18 /MIN
--- NOTE | 2024-03-22 14:10 | PCOTNOTE ---
attempted OT eval, per RN pt is not appropriate for therapy, pt has a decline in respiratory status and is re-intubated, OT asked RN about her or MD cancelling therapy orders until the pt is appropriate for therapy evaluations
[2024-03-22] MEDS: ASPIRIN 81 MG CHEWABLE TABLET FEED TUBE (14:23)
[2024-03-22 17:31] LABS: Glucose Point of Care 149 mg/dl (65-105)
[2024-03-22] MEDS: ENOXAPARIN 40 MG/0.4 ML SYRINGE SUB-Q (19:43)
[2024-03-22 20:44] LABS: Glucose Point of Care 134 mg/dl (65-105)
[2024-03-22] MEDS: MINERAL OIL/WHITE PETROLATUM OINTMENT 1 APPLIC EACH EYE (20:50)
[2024-03-23] VITALS (27 sets, daily range): BP systolic 90–110; BP diastolic 49–64; PULSE 90–113; RESP 10–22; TEMP 36.6–37.4; O2SAT 96–100
[2024-03-23 01:05] LABS: Glucose Point of Care 124 mg/dl (65-105)
[2024-03-23] MEDS: IPRATROPIUM 0.5 MG/ALBUTEROL SULFATE 2.5 MG AMPUL.NEB 3 ML INHALATION ×4 (02:07→19:50)
[2024-03-23 04:39] LABS: Hematocrit 27.8 % (42.0-52.0); Hemoglobin 8.1 g/dL (14.0-18.0); Mean Corpuscular HGB Conc 29.1 g/dl (32-36); Mean Corpuscular Hemoglobin 27.8 pg (26-34); Mean Corpuscular Volume 95.5 fl (80-100); Platelet Count Result 250 k/mm3 (150-375); Red Blood Count 2.91 M/mm3 (4.6-6.20); Red Cell Distribution Width 19.3 % (11.5-14.5); White Blood Count 9.5 K/mm3 (4.5-10.0)
[2024-03-23 04:49] LABS: Alveolar/Arterial O2 Gradient 84.8 mmHg; Base Excess ABG 3.9 mEq/l (+/-2.0); Carboxyhemoglobin 0.9 % THb (0-2.0); Fractional Inspired Oxygen 30 %; HCO3 ABG 28.4 mEq/l (22.0-26.0); Methemoglobin ABG 0.1 %THb (0-1.5); Oxygen Content ABG 12.1 %vol (16.0-22.0); Oxygen Saturation ABG 96.1 % (95.0-100.0); PCO2 ABG 42.5 mmHg (35.0-45.0); PO2 ABG 79.2 mmHg (80.0-100.0); PO2 FiO2 Ratio Arterial Blood 2.64 %; pH ABG 7.443 (7.350-7.450)
[2024-03-23 04:49] LABS: Alanine Aminotransferase 33 U/L (6-50); Albumin Level 2.6 g/dL (3.5-5.1); Alkaline Phosphatase 143 U/L (38-126); Anion Gap 1 mmol/L (4-12); Aspartate Amino Transferase 31 U/L (17-59); Bilirubin,Total 0.7 mg/dL (0.2-1.3); Blood Urea Nitrogen 22 mg/dL (9-20); Calcium 7.8 mg/dL (8.4-10.2); Carbon Dioxide 30 mmol/L (22-30); Chloride 118 mmol/L (98-107); Estimated CRCL calculation 79 ml/min; Estimated Glomerular Filt Rate > 60; Glucose 167 mg/dL (65-110); Magnesium 2.3 mg/dL (1.6-2.3); Potassium 3.3 mmol/L (3.4-5.0); Sodium 149 mmol/L (137-145)
[2024-03-23 05:12] LABS: Device VENTILATOR; Modified Allen's Test Pass; Site Drawn RIGHT BRACHIAL
[2024-03-23 05:13] LABS: Arterial Blood Gas PEEP 8 cmH2O; Arterial Blood Gas Vent Mode CMV; Arterial Blood Gas Ventilator rate 16 /MIN
[2024-03-23 05:14] LABS: Arterial Blood Gas Tidal Volume 380 ml
[2024-03-23] MEDS: CENTRAL LINE FLUSH 10 ML IV PUSH ×6 (06:19→21:22)
[2024-03-23 08:03] LABS: Glucose Point of Care 157 mg/dl (65-105)
[2024-03-23] MEDS: POTASSIUM BICARBONATE 25 MEQ TABEF 50 MEQ FEED TUBE (08:28)
[2024-03-23] MEDS: ASPIRIN 81 MG CHEWABLE TABLET FEED TUBE (08:28)
[2024-03-23] MEDS: ENOXAPARIN 100 MG/ML SYRINGE 90 MG SUB-Q ×2 (08:29→21:16)
[2024-03-23] MEDS: CEFEPIME 2 GM/NS 50 ML 2 GM/50 ML BAG IVPB ×2 (08:30→21:19)
[2024-03-23] MEDS: MINERAL OIL/WHITE PETROLATUM OINTMENT 1 APPLIC EACH EYE ×2 (08:30→21:23)
[2024-03-23] MEDS: PANTOPRAZOLE SODIUM IV 40 MG VIAL IV PUSH ×2 (08:30→21:16)
--- NOTE | 2024-03-23 09:05 | P.PNINT_ITS ---
Progress Note: A&P Assessment and Plan (1) Acute respiratory failure with hypoxia: Code(s): J96.01 - Acute respiratory failure with hypoxia Status: Acute Assessment and Plan: Acute respiratory failure likely related to cardiac arrest, aspiration pneumonia, NSTEMI, hypoxia, septic shock Worsening likely secondary to ARDS versus pulmonary edema Intubated 02/27 02/28 Chest CTA: Extensive right upper lobe consolidation and more mild right middle lobe consolidation, consistent with pneumonia. Consider aspiration pneumonia.Moderate to large right pleural effusion with complete atelectasis of the right lower lobe. Moderate left pleural effusion with minimal left basilar atelectasis. Small pericardial effusion. No definite acute abnormality in the abdomen or pelvis. Chronic compression fractures, as above . -03/07 right thoracentesis with 1 L fluid removed -03/08 left-sided thoracentesis 550 mL -03/11: patient was in pressure support ventilation 02/18, with decrease tidal volumes in the upper 200s. place patient back on CMV, I have asked the bedside RN to decrease the Precedex infusion once patient is more awake will place back on spontaneous breathing trials 03/12: Place patient on SBT 04/17, low tidal volumes, low respiratory rate. Patient had replaced back on CMV mode of ventilation. -even on ASV patient is breathing only 7-8 times a minute 03/13: Off Precedex infusion overnight, placed patient on pressure support ventilation 04/17, initially did well but not significantly tachycardic and tachypneic and in respiratory distress, patient was placed back on CMV mode of ventilation and low-dose was 03/14 8/5 PSV SBT done for more than 1 hour. RSBI, ABG and Vitals acceptable. Pt awake and following commands. Patient was extubated. Initially patient did well and was on nasal cannula and was able to communicate. Over 12 hours patient became more hypoxic with increased respiratory distress and tachypnea. I spoke to patient post extubation and was agreeable to re-intubation if needed and stated that 'he is not ready to ' and 'do what ever it takes'. He was re intubated at night. I also mentioned to him that he may need tracheostomy and PEG tube placement if he gets we intubated and is not weanable. He told me 'to proceed with it if needed'. Solu-Medrol IV given for airway edema and will be continued for 24 hours -completed course of Solu-Medrol -continue bronchodilators -CT scan shows large pleural effusions bilaterally. I will request IR for thoracentesis.. Patient is on minimal ventilator setting but has failed trials initially multiple times and then once extubated he was reintubated within 12 hours. I will treat try again after thoracentesis to see patient is weanable from the vent otherwise will proceed with trach and PEG as patient has been on ventilator for more than 2 weeks. 03/17 right thoracentesis 1 L fluid was removed 03/18 left thoracentesis 550 mL fluid was removed Will also continue diuretics. 03/19 patient was extubated after weaning trial 03/20 continue nasal cannula, BiPAP p.r.n., hold diuretics, incentive spirometry, spoke to patient after extubation yesterday he is willing to be intubated if needed and proceed with trach and PEG if needed hopefully we can avoid that situation 03/21 patient continues to require BiPAP intermittently and tolerates nasal cannula. He appears quite weak although he does have borderline cough. Cont inue incentive spirometry. P.r.n. BiPAP. BiPAP at night. Nasal cannula as tolerated. Patient remains at risk of requiring intubation. I spoke to patient again and mention that to him and he verbalized understanding by noting his head. I will check chest x-ray. Continue ICU monitoring 03/22 discussed with the patient emphasized importance of using BiPAP for increased work of breathing and at night due to his deconditioning and weakness. He is currently saturating on nasal cannula and appears not in any respiratory distress. later patient deteriorated and required re-intubation 03/23 ABG and chest x-ray. patient has failed extubation twice and has been on ventilator for close to 20 days. Patient is awaiting trach now . ENT consulted (2) Elevated LFTs: Code(s): R79.89 - Other specified abnormal findings of blood chemistry Status: Acute Assessment and Plan: 03/13: Significant elevation in LFTs, AST 2280, ALT 988, alk-phos 722 -patient has been hemodynamically stable, no hypotension noted in the last 24-48 hours -statin discontinued. Hold Tylenol -no tenderness in the right upper, lower quadrant or epigastric region on exam -negative vital hepatitis panel, right upper quadrant ultrasound with Doppler negative for hepatic or portal vein thrombosis -patient evaluated by GI -levels improving. Monitor (3) Cardiac arrest with pulseless electrical activity: Code(s): I46.9 - Cardiac arrest, cause unspecified Status: Acute Assessment and Plan: Cardiac arrest, secondary to unknown etiology. Possible aspiration pneumonia, NSTEMI, hypoxia, septic shock, infection -see code blue sheet for the details -patient currently intubated, vasopressors for blood pressure support have been weaned off -appreciate cardiology following the patient 02/29/2024 echocardiogram Summary 1. Technically difficult study with limited views. 2. Left ventricular chamber dimension is normal. 3. Left ventricular systolic function is mildly reduced, estimated at 45-50%. The apex appears to be hypokinetic. 4. There is mildly increased left ventricular wall thickness. 5. The left ventricular diastolic function is grade I diastolic dysfunction. 6. Right ventricular systolic function is normal. 7. Left atrial chamber dimension is moderately enlarged. 8. There is mild to moderate tricuspid valve regurgitation. 9. There is small anterior pericardial effusion. (4) Septic shock: Code(s): A41.9 - Sepsis, unspecified organism; R65.21 - Severe sepsis with septic shock Status: Acute Assessment and Plan: Resolved Patient in shock, likely related to the gangrene, aspiration pneumonia, status post cardiac arrest 02/28/2024: Blood cultures have been obtained and negative Off vasopressors and IV fluids Status post 10 days of antibiotics 03/16 low-grade fever increase in WBC CT scan as above, repeat blood cultures and sputum pending UA suggestive of UTI. Urine cultures pending. Ha has been changed. Continue cefepime (5) NSTEMI (non-ST elevated myocardial infarction): Code(s): I21.4 - Non-ST elevation (NSTEMI) myocardial infarction Status: Acute Assessment and Plan: -appreciate cardiology evaluation and recommendation -Continue aspirin and high-dose a statin -will hold Brilinta. Resumption per General surgery - beta-brayden, losartan are on hold due to soft blood pressure. Will resume beta-brayden -03/02 heparin infusion was discontinued after 48 hours for NSTEMI by cardiology (6) Gangrene of right foot: Code(s): I96 - Gangrene, not elsewhere classified Status: Acute Assessment and Plan: CTA showed peripheral arterial disease with total occlusion of the right anterior and posterior tibial arteries and right peroneal artery with distal reconstitution of peroneal artery. This extensive gangrene of the right foot with gas seen on CT of the foot. General surgery spoke to the patient in the ER on the day of admission on 02/27 patient at that time agreed for below-knee amputation. Plan was to do a below- knee amputation on 02/29/2024 but patient had a cardiac arrest that night secondary to sepsis. Surgery at that time was deferred. Patient now is intubated sedated and unable to sign his consent.. Patient has no family and [facility] has [facility] no visitor. He has 1 son which no one has been able to get hold off right several attempts. Considering patient has gangrene of the foot with no vascular supply leading to sepsis and if untreatable lead to his , Dr. Johns will proceed with amputation today, 03/05/2024. Dr. Collins and Dr. Johns has signed 2 physician consent considering patient's clearly expressed wishes prior to cardiac arrest at the time of admission, his current situation and inability to sign the consent form by himself at this time. 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 -complete 5 days of clindamycin 03/13: Discussed with surgery, there is flexion contractures of his amputation which may hinder in him getting prosthetics, patient may require above knee amputation (7) Osteomyelitis of toe of right foot: Code(s): M86.9 - Osteomyelitis, unspecified Status: Chronic Assessment and Plan: As above (8) Peripheral vascular disease: Code(s): I73.9 - Peripheral vascular disease, unspecified Status: Chronic Assessment and Plan: Patient has history of peripheral vascular disease, coronary artery disease -started on aspirin, patient will require Brilinta since he had a STEMI in 2020 but currently holding Brilinta due to surgery and bleeding (9) Type 2 diabetes mellitus: Qualifiers: 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 complication status: with other specified complication 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: with 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 company 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 truck driver use Qualified Code(s): E11.69 - Type 2 diabetes mellitus with other specified complication; Z79.4 - equipment operator intermodal yard (current) use of insulin Code(s): E11.9 - Type 2 diabetes mellitus without complications Status: Acute Assessment and Plan: Currently on sliding scale insulin, Accu-Cheks Hemoglobin A1c this admission is 8.2 Lantus is on hold as patient is currently NPO (10) Chronic obstructive pulmonary disease: Code(s): J44.9 - Chronic obstructive pulmonary disease, unspecified Status: Chronic Assessment and Plan: Continue DuoNebs -continue Symbicort (11) Electrolyte abnormality: Code(s): E87.8 - Other disorders of electrolyte and fluid balance, not elsewhere classified Status: Acute Assessment and Plan: Hypernatremia, hold diuretics. increase free water flush Potassium replacement ordered (12) Ileus: Code(s): K56.7 - Ileus, unspecified Status: Acute Assessment and Plan: CT scan shows significant amount of tube feeds collected in the stomach. Patient also had high residuals. Patient has already been on Reglan. Bowel sounds are present but decreased. tube feeds restarted (13) Sinus tachycardia: Code(s): R00.0 - Tachycardia, unspecified Status: Acute Assessment and Plan: Does not appear in any respiratory distress. Continue BiPAP p.r.n.. beta-brayden held due to low blood pressure (14) Dysphagia: Code(s): R13.10 - Dysphagia, unspecified Status: Acute Assessment and Plan: Patient failed his bedside swallow evaluation and a modified barium swallow study prior to re-intubation which showed aspiration of thin liquids and pudding now intubated in his OG tube tube feeding. Peg tube has been requested and pending. GI consult (15) DVT (deep venous thrombosis): Code(s): I82.409 - Acute embolism and thrombosis of unspecified deep veins of unspecified lower extremity Status: Acute Assessment and Plan: ultrasound shows clot surrounding the PICC line in the right upper extremity PICC line working and will be left in place for now started Lovenox at therapeutic dose Plan DVT prophylaxis: Lovenox therapeutic dose Stress ulcer prophylaxis: Protonix Nutrition: tube feeds ordered Code Status: Full code. 03/15 Patient has no family available. Patient was extubated on 03/14 and I spoke to patient post extubation. I mentioned possibility of him needing re- intubation and he was agreeable stating that he is not ready to at this time. He stated that do whatever needs to be done to keep me alive. I also mentioned to him that if he gets reintubated and is unable to be weaned he will need tracheostomy and PEG tube placement and he states that he is agreeable to d o it if needed. He did mention that he has some nephews in area which can be contacted. recreation coordinator was provided that information. 03/19 I confirmed with patient again regarding his code status he is willing to get reintubated if needed and is willing to proceed with trach and PEG if needed. He wishes to be full code. 03/23 Finally patient's son arrived at bedside and I spoke to him with his and patient's ex- in the conference room. I updated them in detail about the details of patient's admission presentation and hospital course till now. He states that he has not been touch with his dad for last 10 years. He is willing to be the POA at this time. I answered all his questions and explained him the patient is currently in respiratory failure with failure to wean requiring re- intubation x2, congestive Heart Care earlier, gangrene of right foot requiring amputation, sepsis, UTI, dysphagia and he will need trach and PEG. They understand and agree with patient's wishes to proceed with trach and PEG at this time. He was hoping the patient can go to a facility close to where he lives. Critical Care Time Spent: 35 minutes Due to a high probability of clinically significant, life threatening deterioration, the patient required my highest level of preparedness to intervene emergently and I personally spent this critical care time directly and personally managing the patient. This critical care time included obtaining a history; examining the patient; pulse oximetry; ordering and review of studies; arranging urgent treatment with development of a management plan; evaluation of patient's response to treatment; frequent reassessment; and discussions with other providers. It was exclusive of separately billable procedures and treating other patients and teaching time. Please see Assessment and Plan section and the rest of the note for further information on patient assessment and treatment This dictation may have been done utilizing a voice recognition system. Attempts have been made to correct errors. However, there may be uncorrected grammatical, spelling, and recognitions errors present. Subjective Date/time seen: 03/23/24 Overnight events reviewed. Afebrile Continues to be on mechanical ventilation 30% FiO2 tolerating tube feeds Continues to be sedated with fentanyl Versed other Vitals acceptable urine output on the lower side Interval history: Reason for consult: Status post PEA arrest, right foot gangrene with cellulitis, shock 02/27: Intubated 03/05:Right below-knee amputation with placement of posterior Ortho Glass splint 03/14: extubated and reintubated 03/17 right-sided thoracentesis and 1 L fluid was removed 03/18: Left thoracentesis and 550 mL fluid was removed 03/19 extubated Review of Systems Review of Systems: ROS unobtainable: Yes unobtainable due to endotracheal tube, unobtainable due to medical condition and unobtainable due to mental status Exam Narrative: General: Patient intubated sedated and in no acute distress HEENT:, pupils are equal and reactive from a sclera is clear Neck:? supple Respiratory:? Coarse breath sounds bilaterally, decreased at bases, adequate air entry, no wheezing Cardiac:? S1-S2 normal, regular rate and rhythm Abdomen:? Soft, nontender, nondistended, bowel sounds are decreased but present Extremities:? Right BKA stump under the dressing. Left dorsalis pedis is dopplerable Neuro:? Patient is wakes up on stimulation and calling his name and is nodes his head but quickly falls back to sleep, he is sedated, he simple commands but only intermittently. He is overall generalized weak Skin:? Patient has maceration of his perianal area, pressure ulcer on his buttocks. Psych:? Normal speech and affect Objective Data Vital Signs Vital Signs: Vital Signs - 24 hr 03/22/24 10:00 03/22/24 12:23 03/22/24 12:24 Temperature 37.3 C Pulse Rate 121 H 119 H 119 H Respiratory Rate 26 H 18 18 Blood Pressure 130/75 Pulse Oximetry 98 Oxygen Delivery Oxygen Flow Rate Fraction of Inspired Oxygen 03/22/24 12:10 03/22/24 12:40 03/22/24 12:00 Temperature 37.3 C Pulse Rate 122 H 115 H 148 H Respiratory Rate 36 H Blood Pressure 148/89 H Pulse Oximetry 100 99 91 Oxygen Delivery Mechanical Ventilation Mechanical Ventilation Oxygen Flow Rate Fraction of Inspired Oxygen 50 50 03/22/24 10:00 03/22/24 12:00 03/22/24 12:00 Temperature Pulse Rate 116 H 148 H Respiratory Rate 36 H Blood Pressure Pulse Oximetry 91 Oxygen Delivery Nasal Cannula Oxygen Flow Rate 2 Fraction of Inspired Oxygen 03/22/24 14:00 03/22/24 14:00 03/22/24 13:38 Temperature 36.9 C Pulse Rate 108 H 108 H 114 H Respiratory Rate 16 16 Blood Pressure 96/60 L Pulse Oximetry 98 Oxygen Delivery Oxygen Flow Rate Fraction of Inspired Oxygen 03/22/24 13:15 03/22/24 14:00 03/22/24 16:33 Temperature Pulse Rate 114 H 99 Respiratory Rate Blood Pressure Pulse Oximetry 99 100 Oxygen Delivery Mechanical Ventilation Mechanical Ventilation Oxygen Flow Rate Fraction of Inspired Oxygen 35 35 30 03/22/24 16:00 03/22/24 13:00 03/22/24 13:00 Temperature 36.7 C Pulse Rate 96 118 H 118 H Respiratory Rate 16 20 20 Blood Pressure 92/55 L Pulse Oximetry 100 Oxygen Delivery Oxygen Flow Rate Fraction of Inspired Oxygen 03/22/24 15:00 03/22/24 17:00 03/22/24 15:00 Temperature Pulse Rate 102 H 98 118 H Respiratory Rate 16 16 20 Blood Pressure Pulse Oximetry Oxygen Delivery Oxygen Flow Rate Fraction of Inspired Oxygen 03/22/24 17:00 03/22/24 16:00 03/22/24 16:00 Temperature Pulse Rate 98 Respiratory Rate 16 16 Blood Pressure Pulse Oximetry 100 Oxygen Delivery Mechanical Ventilation Oxygen Flow Rate Fraction of Inspired Oxygen 30 35 03/22/24 18:00 03/22/24 16:00 03/22/24 18:00 Temperature 36.7 C Pulse Rate 100 94 99 Respiratory Rate 16 Blood Pressure 106/64 Pulse Oximetry 98 Oxygen Delivery Oxygen Flow Rate Fraction of Inspired Oxygen 03/22/24 20:00 03/22/24 20:15 03/22/24 20:00 Temperature 36.7 C Pulse Rate 101 H 101 H Respiratory Rate 12 12 Blood Pressure 85/53 L 94/55 L Pulse Oximetry 97 Oxygen Delivery Oxygen Flow Rate Fraction of Inspired Oxygen 03/22/24 20:00 03/22/24 21:05 03/22/24 19:00 Temperature Pulse Rate 101 H 108 H 102 H Respiratory Rate 12 26 H 16 Blood Pressure Pulse Oximetry Oxygen Delivery Oxygen Flow Rate Fraction of Inspired Oxygen 03/22/24 19:00 03/22/24 21:09 03/22/24 21:09 Temperature Pulse Rate 102 H 100 100 Respiratory Rate 16 20 Blood Pressure Pulse Oximetry 100 Oxygen Delivery Mechanical Ventilation Oxygen Flow Rate Fraction of Inspired Oxygen 30 03/22/24 20:00 03/22/24 20:00 03/22/24 20:00 Temperature Pulse Rate 104 H 101 H Respiratory Rate 12 Blood Pressure Pulse Oximetry 97 Oxygen Delivery Mechanical Ventilation Oxygen Flow Rate Fraction of Inspired Oxygen 30 30 03/22/24 22:00 03/22/24 22:00 03/22/24 22:00 Temperature 36.7 C Pulse Rate 99 99 99 Respiratory Rate 16 16 Blood Pressure 96/52 L Pulse Oximetry 99 Oxygen Delivery Oxygen Flow Rate Fraction of Inspired Oxygen 03/22/24 22:00 03/22/24 23:06 03/23/24 00:00 Temperature 36.7 C Pulse Rate 99 96 91 Respiratory Rate 16 10 L Blood Pressure 90/50 L Pulse Oximetry 98 100 Oxygen Delivery Mechanical Ventilation Oxygen Flow Rate Fraction of Inspired Oxygen 30 03/23/24 00:00 03/23/24 00:00 03/23/24 00:00 Temperature Pulse Rate 91 91 Respiratory Rate 10 L 10 L Blood Pressure Pulse Oximetry Oxygen Delivery Oxygen Flow Rate Fraction of Inspired Oxygen 30 03/23/24 00:00 03/23/24 00:00 03/23/24 02:07 Temperature Pulse Rate 91 90 102 H Respiratory Rate 10 L Blood Pressure Pulse Oximetry 100 100 Oxygen Delivery Mechanical Ventilation Mechanical Ventilation Oxygen Flow Rate Fraction of Inspired Oxygen 30 30 03/23/24 02:07 03/23/24 02:00 03/23/24 02:00 Temperature 36.7 C Pulse Rate 102 H 98 98 Respiratory Rate 16 16 Blood Pressure 99/49 L Pulse Oximetry 100 Oxygen Delivery Oxygen Flow Rate Fraction of Inspired Oxygen 03/23/24 02:00 03/23/24 02:00 03/23/24 04:00 Temperature Pulse Rate 98 98 104 H Respiratory Rate 16 16 19 Blood Pressure Pulse Oximetry Oxygen Delivery Oxygen Flow Rate Fraction of Inspired Oxygen 03/23/24 04:00 03/23/24 04:25 03/23/24 04:00 Temperature 36.8 C Pulse Rate 104 H 107 H 104 H Respiratory Rate 19 20 19 Blood Pressure 104/54 L Pulse Oximetry 97 Oxygen Delivery Oxygen Flow Rate Fraction of Inspired Oxygen 03/23/24 04:00 03/23/24 04:00 03/23/24 05:15 Temperature Pulse Rate 104 H 113 H Respiratory Rate Blood Pressure Pulse Oximetry 99 Oxygen Delivery Mechanical Ventilation Oxygen Flow Rate Fraction of Inspired Oxygen 30 30 03/23/24 06:00 03/23/24 06:00 03/23/24 04:00 Temperature 37.1 C Pulse Rate 107 H 107 H 104 H Respiratory Rate 19 19 Blood Pressure 104/54 L Pulse Oximetry 96 97 Oxygen Delivery Mechanical Ventilation Oxygen Flow Rate Fraction of Inspired Oxygen 30 03/23/24 06:00 03/23/24 06:00 03/23/24 08:23 Temperature Pulse Rate 107 H 107 H 101 H Respiratory Rate 19 19 Blood Pressure Pulse Oximetry 100 Oxygen Delivery Mechanical Ventilation Oxygen Flow Rate Fraction of Inspired Oxygen 30 03/23/24 08:24 03/23/24 08:00 03/23/24 08:00 Temperature 36.6 C Pulse Rate 101 H 101 H 104 H Respiratory Rate 17 22 H 22 H Blood Pressure 102/54 L Pulse Oximetry 100 Oxygen Delivery Oxygen Flow Rate Fraction of Inspired Oxygen 03/23/24 07:00 03/23/24 08:35 Temperature Pulse Rate 102 H 104 H Respiratory Rate 22 H 16 Blood Pressure Pulse Oximetry Oxygen Delivery Oxygen Flow Rate Fraction of Inspired Oxygen Intake/Output Intake/Output: Intake & Output 03/20/24 03/21/24 03/22/24 03/23/24 23:59 23:59 23:59 23:59 Intake Total 100 230 239.6 545.0 Output Total 1050 700 625 425 Balance -950 -470 -385.4 120.0 Meds/Results Medications: Active Medications Generic Name Dose Route Start Last Admin Trade Name Freq PRN Reason Stop Dose Admin Acetaminophen 500 mg 03/08/24 10:18 03/13/24 09:24 Acetaminophen 500 Mg Tablet FEED TUBE 500 mg Q6H PRN Administration Pain Rated 1-3 Albuterol/Ipratropium 3 ml 02/29/24 02:00 03/23/24 08:19 Ipratropium 0.5 Mg/Albuterol Sulfate 2.5 Mg Ampul.Neb 3 Ml INHALATION 3 ml Q6HRT JASON Administration Alteplase, Recombinant 2 mg 03/06/24 09:45 03/22/24 16:56 Alteplase 2 Mg Vial (Cathflo) IV PUSH 2 mg ONCE PRN Administration Line Occlusion Aspirin 81 mg 03/09/24 08:00 03/23/24 08:28 Aspirin 81 Mg Chewable Tablet FEED TUBE 81 mg DAILY@0800 JASON Administration Dextrose 12.5 gm 02/28/24 19:23 Dextrose 50% 25 Gm/50 Ml Syringe IV PUSH PRN PRN Hypoglycemia Protocol Enoxaparin Sodium 90 mg 03/23/24 07:45 03/23/24 08:29 Enoxaparin 100 Mg/Ml Syringe SUB-Q 90 mg Q12HR JASON Administration Glucagon 1 mg 02/28/24 19:23 Glucagon For Inj 1 Mg Vial IM PRN PRN Hypoglycemia Protocol Glucose 15 gm 03/08/24 10:19 Glucose Oral Gel 15 Gm Of Glucse In 37.5 Gm Tube FEED TUBE PRN PRN Hypoglycemia Protocol Dextrose 1,000 mls @ 100 mls/hr 02/28/24 19:23 Dextrose 5% 1,000 Ml IVPB PRN PRN Hypoglycemia Protocol Cefepime HCl 2 gm in 50 mls @ 100 mls/hr 03/17/24 09:00 03/23/24 08:30 Maxipime 2 Gm/Ns 50 Ml IVPB 03/23/24 21:29 100 mls/hr Q12H JASON Administration Fentanyl Citrate 2,500 mcg in 250 mls @ 5 mls/hr 03/22/24 12:15 03/23/24 08:00 Fentanyl 2,500 Mcg/Ns 250 Ml IV CONT 50 mcg/hr .Q50H JASON 5 mls/hr Titration Protocol 50 MCG/HR Midazolam HCl 100 mg in 100 mls @ 2 mls/hr 03/22/24 12:15 03/23/24 07:00 Versed 100 Mg/Ns 100 Ml IV CONT 2 mg/hr .Q50H JASON 2 mls/hr Titration Protocol 2 MG/HR Insulin Aspart 3 - 6 units 03/15/24 17:00 03/23/24 08:30 Insulin Aspart (*Bkc) 100 Units/Ml SUB-Q Not Given Q4HR [facility] Protocol Insulin Glargine 55 units 03/15/24 09:00 03/16/24 10:44 Insulin Glargine (*Bkc) 100 Units/Ml SUB-Q 55 units DAILY JASON Administration Labetalol HCl 20 mg 03/08/24 10:06 03/08/24 16:48 Labetalol Hcl Inj 100 Mg/20 Ml Vial IV PUSH 20 mg Q4H PRN Administration SBP > 160 and HR> 60 -1st choice Morphine Sulfate 2 mg 03/19/24 19:39 03/21/24 20:36 Morphine Sulfate (*Crx) 2 Mg/Ml Inj IV PUSH 2 mg Q2HR PRN Administration Pain Rated 7-10 Multi-Ingred Cream/Lotion/Oil/Oint 1 applic 03/22/24 21:00 03/23/24 08:30 Mineral Oil/White Petrolatum Ointment EACH EYE 1 applic Q12HR JASON Administration Pantoprazole Sodium 40 mg 03/02/24 09:00 03/23/24 08:30 Pantoprazole Sodium Iv 40 Mg Vial IV PUSH 40 mg Q12HR JASON Administration Sodium Chloride 10 ml 02/29/24 06:00 03/23/24 06:19 Central Line Flush IV PUSH 10 ml Q8HR JASON Administration Sodium Chloride 20 ml 02/28/24 23:37 Central Line Flush IV PUSH PRN PRN after blood draws Sodium Chloride 20 ml 03/21/24 08:57 Central Line Flush IV PUSH PRN PRN after blood draws Sodium Chloride 10 ml 03/21/24 08:57 Central Line Flush IV PUSH PRN PRN with TPN bag changes Sodium Chloride 10 ml 03/21/24 14:00 03/23/24 06:19 Central Line Flush IV PUSH 10 ml Q8HR JASON Administration Radiology Results: ITS Impressions Lower Extremity CTA 02/28/24 14:54 IMPRESSION: 1. 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 2. Moderate stenosis of right popliteal artery. 3. Osteomyelitis involving first proximal and distal phalanges and head of first metatarsal. Head CT 02/29/24 05:55 Impression: No intracranial hemorrhage, mass, or acute infarct. Stable chronic encephalomalacia in the high left parietal lobe. Atrophy and chronic white matter changes, as above. Chest/Abdomen/Pelvis CTA 02/29/24 06:02 Impression: Extensive right upper lobe consolidation and more mild right middle lobe consolidation, consistent with pneumonia. Consider aspiration pneumonia. Moderate to large right pleural effusion with complete atelectasis of the right lower lobe. Moderate left pleural effusion with minimal left basilar atelectasis. Small pericardial effusion. No definite acute abnormality in the abdomen or pelvis. Chronic compression fractures, as above. Renal Ultrasound 03/03/24 15:45 IMPRESSION: 1. Normal kidneys without hydronephrosis. 2. Small amount of ascites in the abdomen and pelvis. Abdomen Ultrasound 03/13/24 16:52 IMPRESSION: 1. No etiology for abnormal liver function tests. 2. Normal hepatic veins and main portal vein. Right and left portal veins and proper hepatic artery not evaluated. 3. Right pleural effusion. Vascular Ultrasound 03/13/24 16:52 IMPRESSION: 1. No etiology for abnormal liver function tests. 2. Normal hepatic veins and main portal vein. Right and left portal veins and proper hepatic artery not evaluated. 3. Right pleural effusion. Chest/Abdomen/Pelvis CT 03/16/24 21:51 IMPRESSION: Anasarca Large pleural effusions with prominent compressive atelectasis of the lower lobes especially, dependent atelectasis of the middle and upper lobes Heart size. Prominent coronary artery atherosclerotic calcifications Minimal pericardial effusion Prominent diffuse thickening of urinary bladder wall suggesting cystitis area Ha catheter in bladder lumen Very prominent amount of fluid and large fluid level within the stomach despite presence of NG tube T11 and L1 moderate anterior wedge compression fractures, likely chronic Thoracentesis Ultrasound 03/18/24 10:27 IMPRESSION: 1. Successful ultrasound-guided thoracentesis yielding 550 mL of doris-colored fluid. Modified Barium Swallow 03/21/24 15:25 IMPRESSION: 1. Aspiration of thin liquids and pudding. 2. Please refer to the speech therapy report for recommendations. Tube Placement 03/22/24 11:33 IMPRESSION: 1. Fluoroscopy guided nasoenteric tube placement with tip in the stomach. Abdomen X-Ray 03/22/24 12:47 IMPRESSION: 1. Nasogastric tube tip in the stomach. 2. Nasoenteric tube tip in the stomach. Venous Doppler Study 03/22/24 16:38 IMPRESSION: Nonocclusive right subclavian vein thrombus. No additional deep venous thrombosis detected in the remaining bilateral upper extremity veins. Chest X-Ray 03/23/24 07:38 Impression: Probable moderate layering pleural effusions with underlying mild to moderate pulmonary edema pattern. Support tubes, as above. Labs Labs: Laboratory Results - last 24 hr 03/22/24 03/22/24 03/22/24 09:08 12:02 12:57 WBC 13.5 H RBC 3.62 L Hgb 10.0 L Hct 34.3 L MCV 94.8 MCH 27.6 MCHC 29.2 L RDW 19.0 H Plt Count 422 H MPV 9.7 Puncture Site ABG pH ABG pCO2 ABG pO2 ABG PO2/FiO2 Ratio ABG HCO3 ABG O2 Saturation ABG O2 Content ABG Base Excess A-a Gradient Oxyhemoglobin Carboxyhemoglobin Methemoglobin Reduced Hemoglobin Total Hemoglobin O2 Delivery Device O2 Liters/Min Minute Volume Vent Rate Vent Mode FiO2 Tidal Volume PEEP Peak Inspir Pressure Pressure Support Sodium 150 H Potassium 3.9 Chloride 114 H Carbon Dioxide 31 H Anion Gap 5 BUN 20 Creatinine 0.80 Estim Creat Clear Calc 79 Estimated GFR > 60 Glucose 186 H POC Capillary Glucose 181 H 170 H Calcium 8.4 Magnesium 2.4 H Total Bilirubin 1.0 AST 36 ALT 42 Alkaline Phosphatase 189 H Total Protein 7.0 Albumin 3.2 L 03/22/24 03/22/24 03/22/24 13:04 17:10 20:42 WBC RBC Hgb Hct MCV MCH MCHC RDW Plt Count MPV Puncture Site Right radial ABG pH 7.460 H ABG pCO2 37.1 ABG pO2 152.7 H ABG PO2/FiO2 Ratio 3.05 ABG HCO3 25.8 ABG O2 Saturation 99.1 ABG O2 Content 12.9 L ABG Base Excess 2.0 A-a Gradient 162.1 Oxyhemoglobin 98.0 Carboxyhemoglobin Methemoglobin Reduced Hemoglobin Total Hemoglobin 9.1 L O2 Delivery Device Ventilator O2 Liters/Min Not Reportable Minute Volume Not Reportable Vent Rate 18 Vent Mode Cmv FiO2 50 Tidal Volume 380 PEEP 8 Peak Inspir Pressure Not Reportable Pressure Support Not Reportable Sodium Potassium Chloride Carbon Dioxide Anion Gap BUN Creatinine Estim Creat Clear Calc Estimated GFR Glucose POC Capillary Glucose 149 H 134 H Calcium Magnesium Total Bilirubin AST ALT Alkaline Phosphatase Total Protein Albumin 03/23/24 03/23/24 03/23/24 01:03 04:35 04:44 WBC 9.5 RBC 2.91 L Hgb 8.1 L Hct 27.8 L MCV 95.5 MCH 27.8 MCHC 29.1 L RDW 19.3 H Plt Count 250 MPV 10.0 Puncture Site Right brachial ABG pH 7.443 ABG pCO2 42.5 ABG pO2 79.2 L ABG PO2/FiO2 Ratio 2.64 ABG HCO3 28.4 H ABG O2 Saturation 96.1 ABG O2 Content 12.1 L ABG Base Excess 3.9 A-a Gradient 84.8 Oxyhemoglobin 95.0 Carboxyhemoglobin 0.9 Methemoglobin 0.1 Reduced Hemoglobin 4.0 Total Hemoglobin 9.0 L O2 Delivery Device Ventilator O2 Liters/Min Not Reportable Minute Volume Vent Rate 16 Vent Mode Cmv FiO2 30 Tidal Volume 380 PEEP 8 Peak Inspir Pressure Pressure Support Sodium 149 H Potassium 3.3 L Chloride 118 H Carbon Dioxide 30 Anion Gap 1 L BUN 22 H Creatinine 0.80 Estim Creat Clear Calc 79 Estimated GFR > 60 Glucose 167 H POC Capillary Glucose 124 H Calcium 7.8 L Magnesium 2.3 Total Bilirubin 0.7 AST 31 ALT 33 Alkaline Phosphatase 143 H Total Protein 6.0 L Albumin 2.6 L 03/23/24 07:51 WBC RBC Hgb Hct MCV MCH MCHC RDW Plt Count MPV Puncture Site ABG pH ABG pCO2 ABG pO2 ABG PO2/FiO2 Ratio ABG HCO3 ABG O2 Saturation ABG O2 Content ABG Base Excess A-a Gradient Oxyhemoglobin Carboxyhemoglobin Methemoglobin Reduced Hemoglobin Total Hemoglobin O2 Delivery Device O2 Liters/Min Minute Volume Vent Rate Vent Mode FiO2 Tidal Volume PEEP Peak Inspir Pressure Pressure Support Sodium Potassium Chloride Carbon Dioxide Anion Gap BUN Creatinine Estim Creat Clear Calc Estimated GFR Glucose POC Capillary Glucose 157 H Calcium Magnesium Total Bilirubin AST ALT Alkaline Phosphatase Total Protein Albumin Quality VTE Prophylaxis VTE prophylaxis: pharmacologic ordered
--- NOTE | 2024-03-23 11:35 | P.PNIM_ITS ---
Progress Note: A&P Assessment and Plan (1) Acute respiratory failure with hypoxia: Code(s): J96.01 - Acute respiratory failure with hypoxia Status: Acute Assessment and Plan: Acute respiratory failure likely related to cardiac arrest, aspiration pneumonia, NSTEMI, hypoxia, septic shock Worsening likely secondary to ARDS versus pulmonary edema Intubated 02/27 02/28 Chest CTA: Extensive right upper lobe consolidation and more mild right middle lobe consolidation, consistent with pneumonia. Consider aspiration pneumonia.Moderate to large right pleural effusion with complete atelectasis of the right lower lobe. Moderate left pleural effusion with minimal left basilar atelectasis. Small pericardial effusion. No definite acute abnormality in the abdomen or pelvis. Chronic compression fractures, as above . -03/07 right thoracentesis with 1 L fluid removed -03/08 left-sided thoracentesis 550 mL -03/11: patient was in pressure support ventilation 02/18, with decrease tidal volumes in the upper 200s. place patient back on CMV, I have asked the bedside RN to decrease the Precedex infusion once patient is more awake will place back on spontaneous breathing trials 03/12: Place patient on SBT 04/17, low tidal volumes, low respiratory rate. Patient had replaced back on CMV mode of ventilation. -even on ASV patient is breathing only 7-8 times a minute 03/13: Off Precedex infusion overnight, placed patient on pressure support ventilation 04/17, initially did well but not significantly tachycardic and tachypneic and in respiratory distress, patient was placed back on CMV mode of ventilation and low-dose was 03/14 8/5 PSV SBT done for more than 1 hour. RSBI, ABG and Vitals acceptable. Pt awake and following commands. Patient was extubated. Initially patient did well and was on nasal cannula and was able to communicate. Over 12 hours patient became more hypoxic with increased respiratory distress and tachypnea. I spoke to patient post extubation and was agreeable to re-intubation if needed and stated that 'he is not ready to ' and 'do what ever it takes'. He was re intubated at night. I also mentioned to him that he may need tracheostomy and PEG tube placement if he gets we intubated and is not weanable. He told me 'to proceed with it if needed'. Solu-Medrol IV given for airway edema and will be continued for 24 hours -completed course of Solu-Medrol -continue bronchodilators -CT scan shows large pleural effusions bilaterally. I will request IR for thoracentesis.. Patient is on minimal ventilator setting but has failed trials initially multiple times and then once extubated he was reintubated within 12 hours. I will treat try again after thoracentesis to see patient is weanable from the vent otherwise will proceed with trach and PEG as patient has been on ventilator for more than 2 weeks. 03/17 right thoracentesis 1 L fluid was removed 03/18 left thoracentesis 550 mL fluid was removed Will also continue diuretics. 03/19 patient was extubated after weaning trial 03/20 continue nasal cannula, BiPAP p.r.n., hold diuretics, incentive spirometry, spoke to patient after extubation yesterday he is willing to be intubated if needed and proceed with trach and PEG if needed hopefully we can avoid that situation 03/21 patient continues to require BiPAP intermittently and tolerates nasal cannula. He appears quite weak although he does have borderline cough. Cont inue incentive spirometry. P.r.n. BiPAP. BiPAP at night. Nasal cannula as tolerated. Patient remains at risk of requiring intubation. I spoke to patient again and mention that to him and he verbalized understanding by noting his head. I will check chest x-ray. Continue ICU monitoring 03/22 discussed with the patient emphasized importance of using BiPAP for increased work of breathing and at night due to his deconditioning and weakness. He is currently saturating on nasal cannula and appears not in any respiratory distress. later patient deteriorated and required re-intubation 03/23 ABG and chest x-ray. patient has failed extubation twice and has been on ventilator for close to 20 days. Patient is awaiting trach now . ENT consulted (2) Elevated LFTs: Code(s): R79.89 - Other specified abnormal findings of blood chemistry Status: Acute Assessment and Plan: 03/13: Significant elevation in LFTs, AST 2280, ALT 988, alk-phos 722 -patient has been hemodynamically stable, no hypotension noted in the last 24-48 hours -statin discontinued. Hold Tylenol -no tenderness in the right upper, lower quadrant or epigastric region on exam -negative vital hepatitis panel, right upper quadrant ultrasound with Doppler negative for hepatic or portal vein thrombosis -patient evaluated by GI -levels improving. Monitor (3) Cardiac arrest with pulseless electrical activity: Code(s): I46.9 - Cardiac arrest, cause unspecified Status: Acute Assessment and Plan: Cardiac arrest, secondary to unknown etiology. Possible aspiration pneumonia, NSTEMI, hypoxia, septic shock, infection -see code blue sheet for the details -patient currently intubated, vasopressors for blood pressure support have been weaned off -appreciate cardiology following the patient 02/29/2024 echocardiogram Summary 1. Technically difficult study with limited views. 2. Left ventricular chamber dimension is normal. 3. Left ventricular systolic function is mildly reduced, estimated at 45-50%. The apex appears to be hypokinetic. 4. There is mildly increased left ventricular wall thickness. 5. The left ventricular diastolic function is grade I diastolic dysfunction. 6. Right ventricular systolic function is normal. 7. Left atrial chamber dimension is moderately enlarged. 8. There is mild to moderate tricuspid valve regurgitation. 9. There is small anterior pericardial effusion. (4) Septic shock: Code(s): A41.9 - Sepsis, unspecified organism; R65.21 - Severe sepsis with septic shock Status: Acute Assessment and Plan: Resolved Patient in shock, likely related to the gangrene, aspiration pneumonia, status post cardiac arrest 02/28/2024: Blood cultures have been obtained and negative Off vasopressors and IV fluids Status post 10 days of antibiotics 03/16 low-grade fever increase in WBC CT scan as above, repeat blood cultures and sputum pending UA suggestive of UTI. Urine cultures pending. Ha has been changed. Continue cefepime (5) NSTEMI (non-ST elevated myocardial infarction): Code(s): I21.4 - Non-ST elevation (NSTEMI) myocardial infarction Status: Acute Assessment and Plan: -appreciate cardiology evaluation and recommendation -Continue aspirin and high-dose a statin -will hold Brilinta. Resumption per General surgery - beta-brayden, losartan are on hold due to soft blood pressure. Will resume beta-brayden -03/02 heparin infusion was discontinued after 48 hours for NSTEMI by cardiology (6) Gangrene of right foot: Code(s): I96 - Gangrene, not elsewhere classified Status: Acute Assessment and Plan: CTA showed peripheral arterial disease with total occlusion of the right anterior and posterior tibial arteries and right peroneal artery with distal reconstitution of peroneal artery. This extensive gangrene of the right foot with gas seen on CT of the foot. General surgery spoke to the patient in the ER on the day of admission on 02/27 patient at that time agreed for below-knee amputation. Plan was to do a below- knee amputation on 02/29/2024 but patient had a cardiac arrest that night secondary to sepsis. Surgery at that time was deferred. Patient now is intubated sedated and unable to sign his consent.. Patient has no family and for many years at the longterm has had no visitor. He has 1 son which no one has been able to get hold off right several attempts. Considering patient has gangrene of the foot with no vascular supply leading to sepsis and if untreatable lead to his , Dr. Johns will proceed with amputation today, 03/05/2024. Dr. Collins and Dr. Johns has signed 2 physician consent considering patient's clearly expressed wishes prior to cardiac arrest at the time of admission, his current situation and inability to sign the consent form by himself at this time. 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 -complete 5 days of clindamycin 03/13: Discussed with surgery, there is flexion contractures of his amputation which may hinder in him getting prosthetics, patient may require above knee amputation (7) Osteomyelitis of toe of right foot: Code(s): M86.9 - Osteomyelitis, unspecified Status: Chronic Assessment and Plan: As above (8) Peripheral vascular disease: Code(s): I73.9 - Peripheral vascular disease, unspecified Status: Chronic Assessment and Plan: Patient has history of peripheral vascular disease, coronary artery disease -started on aspirin, patient will require Brilinta since he had a STEMI in 2020 but currently holding Brilinta due to surgery and bleeding (9) Type 2 diabetes mellitus: Qualifiers: 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 complication status: with other specified complication 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 terminal makeup operator insulin use: with terminal makeup operator use Qualified Code(s): E11.69 - Type 2 diabetes mellitus with other specified complication; Z79.4 - 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 helper termite (current) use of insulin Code(s): E11.9 - Type 2 diabetes mellitus without complications Status: Acute Assessment and Plan: Currently on sliding scale insulin, Accu-Cheks Hemoglobin A1c this admission is 8.2 Lantus is on hold as patient is currently NPO (10) Chronic obstructive pulmonary disease: Code(s): J44.9 - Chronic obstructive pulmonary disease, unspecified Status: Chronic Assessment and Plan: Continue DuoNebs -continue Symbicort (11) Electrolyte abnormality: Code(s): E87.8 - Other disorders of electrolyte and fluid balance, not elsewhere classified Status: Acute Assessment and Plan: Hypernatremia, hold diuretics. increase free water flush Potassium replacement ordered (12) Ileus: Code(s): K56.7 - Ileus, unspecified Status: Acute Assessment and Plan: CT scan shows significant amount of tube feeds collected in the stomach. Patient also had high residuals. Patient has already been on Reglan. Bowel sounds are present but decreased. tube feeds restarted (13) Sinus tachycardia: Code(s): R00.0 - Tachycardia, unspecified Status: Acute Assessment and Plan: Does not appear in any respiratory distress. Continue BiPAP p.r.n.. beta-brayden held due to low blood pressure (14) Dysphagia: Code(s): R13.10 - Dysphagia, unspecified Status: Acute Assessment and Plan: Patient failed his bedside swallow evaluation and a modified barium swallow study prior to re-intubation which showed aspiration of thin liquids and pudding now intubated in his OG tube tube feeding. Peg tube has been requested and pending. GI consult (15) DVT (deep venous thrombosis): Code(s): I82.409 - Acute embolism and thrombosis of unspecified deep veins of unspecified lower extremity Status: Acute Assessment and Plan: ultrasound shows clot surrounding the PICC line in the right upper extremity PICC line working and will be left in place for now started Lovenox at therapeutic dose Subjective Date/time seen: 03/23/24 11:35 Interval history: Intubated and sedated. Plan for trach and G-Tube placement. Exam Narrative: General: Patient intubated sedated and in no acute distress HEENT:, pupils are equal and reactive from a sclera is clear Neck:? supple Respiratory:? Coarse breath sounds bilaterally, decreased at bases, adequate air entry, no wheezing Cardiac:? S1-S2 normal, regular rate and rhythm Abdomen:? Soft, nontender, nondistended, bowel sounds are decreased but present Extremities:? Right BKA stump under the dressing. Left dorsalis pedis is dopplerable Neuro:? Patient is wakes up on stimulation and calling his name and is nodes his head but quickly falls back to sleep, he is sedated, he simple commands but only intermittently. He is overall generalized weak Skin:? Patient has maceration of his perianal area, pressure ulcer on his buttocks. Psych:? Normal speech and affect Objective Data Vital Signs Vital Signs: Vital Signs - 24 hr 03/22/24 12:23 03/22/24 12:24 03/22/24 12:10 Temperature Pulse Rate 119 H 119 H 122 H Respiratory Rate 18 18 Blood Pressure Pulse Oximetry 100 Oxygen Delivery Mechanical Ventilation Oxygen Flow Rate Fraction of Inspired Oxygen 50 03/22/24 12:40 03/22/24 12:00 03/22/24 12:00 Temperature 99.2 F Pulse Rate 115 H 148 H 148 H Respiratory Rate 36 H Blood Pressure 148/89 H Pulse Oximetry 99 91 Oxygen Delivery Mechanical Ventilation Oxygen Flow Rate Fraction of Inspired Oxygen 50 03/22/24 12:00 03/22/24 14:00 03/22/24 14:00 Temperature 98.4 F Pulse Rate 108 H 108 H Respiratory Rate 36 H 16 Blood Pressure 96/60 L Pulse Oximetry 91 98 Oxygen Delivery Nasal Cannula Oxygen Flow Rate 2 Fraction of Inspired Oxygen 03/22/24 13:38 03/22/24 13:15 03/22/24 14:00 Temperature Pulse Rate 114 H 114 H Respiratory Rate 16 Blood Pressure Pulse Oximetry 99 Oxygen Delivery Mechanical Ventilation Oxygen Flow Rate Fraction of Inspired Oxygen 35 35 03/22/24 16:33 03/22/24 16:00 03/22/24 13:00 Temperature 98.1 F Pulse Rate 99 96 118 H Respiratory Rate 16 20 Blood Pressure 92/55 L Pulse Oximetry 100 100 Oxygen Delivery Mechanical Ventilation Oxygen Flow Rate Fraction of Inspired Oxygen 30 03/22/24 13:00 03/22/24 15:00 03/22/24 17:00 Temperature Pulse Rate 118 H 102 H 98 Respiratory Rate 20 16 16 Blood Pressure Pulse Oximetry Oxygen Delivery Oxygen Flow Rate Fraction of Inspired Oxygen 03/22/24 15:00 03/22/24 17:00 03/22/24 16:00 Temperature Pulse Rate 118 H 98 Respiratory Rate 20 16 Blood Pressure Pulse Oximetry Oxygen Delivery Oxygen Flow Rate Fraction of Inspired Oxygen 30 03/22/24 16:00 03/22/24 18:00 03/22/24 16:00 Temperature 98.1 F Pulse Rate 100 94 Respiratory Rate 16 16 Blood Pressure 106/64 Pulse Oximetry 100 98 Oxygen Delivery Mechanical Ventilation Oxygen Flow Rate Fraction of Inspired Oxygen 35 03/22/24 18:00 03/22/24 20:00 03/22/24 20:15 Temperature 98.1 F Pulse Rate 99 101 H Respiratory Rate 12 Blood Pressure 85/53 L 94/55 L Pulse Oximetry 97 Oxygen Delivery Oxygen Flow Rate Fraction of Inspired Oxygen 03/22/24 20:00 03/22/24 20:00 03/22/24 21:05 Temperature Pulse Rate 101 H 101 H 108 H Respiratory Rate 12 12 26 H Blood Pressure Pulse Oximetry Oxygen Delivery Oxygen Flow Rate Fraction of Inspired Oxygen 03/22/24 19:00 03/22/24 19:00 03/22/24 21:09 Temperature Pulse Rate 102 H 102 H 100 Respiratory Rate 16 16 Blood Pressure Pulse Oximetry 100 Oxygen Delivery Mechanical Ventilation Oxygen Flow Rate Fraction of Inspired Oxygen 30 03/22/24 21:09 03/22/24 20:00 03/22/24 20:00 Temperature Pulse Rate 100 104 H Respiratory Rate 20 Blood Pressure Pulse Oximetry Oxygen Delivery Oxygen Flow Rate Fraction of Inspired Oxygen 30 03/22/24 20:00 03/22/24 22:00 03/22/24 22:00 Temperature 98.1 F Pulse Rate 101 H 99 99 Respiratory Rate 12 16 Blood Pressure 96/52 L Pulse Oximetry 97 99 Oxygen Delivery Mechanical Ventilation Oxygen Flow Rate Fraction of Inspired Oxygen 30 03/22/24 22:00 03/22/24 22:00 03/22/24 23:06 Temperature Pulse Rate 99 99 96 Respiratory Rate 16 16 Blood Pressure Pulse Oximetry 98 Oxygen Delivery Mechanical Ventilation Oxygen Flow Rate Fraction of Inspired Oxygen 30 03/23/24 00:00 03/23/24 00:00 03/23/24 00:00 Temperature 98.0 F Pulse Rate 91 91 91 Respiratory Rate 10 L 10 L 10 L Blood Pressure 90/50 L Pulse Oximetry 100 Oxygen Delivery Oxygen Flow Rate Fraction of Inspired Oxygen 03/23/24 00:00 03/23/24 00:00 03/23/24 00:00 Temperature Pulse Rate 91 90 Respiratory Rate 10 L Blood Pressure Pulse Oximetry 100 Oxygen Delivery Mechanical Ventilation Oxygen Flow Rate Fraction of Inspired Oxygen 30 30 03/23/24 02:07 03/23/24 02:07 03/23/24 02:00 Temperature Pulse Rate 102 H 102 H 98 Respiratory Rate 16 Blood Pressure Pulse Oximetry 100 Oxygen Delivery Mechanical Ventilation Oxygen Flow Rate Fraction of Inspired Oxygen 30 03/23/24 02:00 03/23/24 02:00 03/23/24 02:00 Temperature 98.1 F Pulse Rate 98 98 98 Respiratory Rate 16 16 16 Blood Pressure 99/49 L Pulse Oximetry 100 Oxygen Delivery Oxygen Flow Rate Fraction of Inspired Oxygen 03/23/24 04:00 03/23/24 04:00 03/23/24 04:25 Temperature Pulse Rate 104 H 104 H 107 H Respiratory Rate 19 19 20 Blood Pressure Pulse Oximetry Oxygen Delivery Oxygen Flow Rate Fraction of Inspired Oxygen 03/23/24 04:00 03/23/24 04:00 03/23/24 04:00 Temperature 98.3 F Pulse Rate 104 H 104 H Respiratory Rate 19 Blood Pressure 104/54 L Pulse Oximetry 97 Oxygen Delivery Oxygen Flow Rate Fraction of Inspired Oxygen 30 03/23/24 05:15 03/23/24 06:00 03/23/24 06:00 Temperature 98.7 F Pulse Rate 113 H 107 H 107 H Respiratory Rate 19 Blood Pressure 104/54 L Pulse Oximetry 99 96 Oxygen Delivery Mechanical Ventilation Oxygen Flow Rate Fraction of Inspired Oxygen 30 03/23/24 04:00 03/23/24 06:00 03/23/24 06:00 Temperature Pulse Rate 104 H 107 H 107 H Respiratory Rate 19 19 19 Blood Pressure Pulse Oximetry 97 Oxygen Delivery Mechanical Ventilation Oxygen Flow Rate Fraction of Inspired Oxygen 30 03/23/24 08:23 03/23/24 08:24 03/23/24 08:00 Temperature 98 F Pulse Rate 101 H 101 H 101 H Respiratory Rate 17 22 H Blood Pressure 102/54 L Pulse Oximetry 100 100 Oxygen Delivery Mechanical Ventilation Oxygen Flow Rate Fraction of Inspired Oxygen 30 03/23/24 08:00 03/23/24 07:00 03/23/24 08:35 Temperature Pulse Rate 104 H 102 H 104 H Respiratory Rate 22 H 22 H 16 Blood Pressure Pulse Oximetry Oxygen Delivery Oxygen Flow Rate Fraction of Inspired Oxygen 03/23/24 08:00 03/23/24 10:00 03/23/24 08:00 Temperature Pulse Rate 96 104 H Respiratory Rate Blood Pressure Pulse Oximetry 99 Oxygen Delivery Mechanical Ventilation Oxygen Flow Rate Fraction of Inspired Oxygen 30 03/23/24 08:00 03/23/24 10:36 Temperature Pulse Rate 104 H Respiratory Rate Blood Pressure Pulse Oximetry 97 Oxygen Delivery Mechanical Ventilation Oxygen Flow Rate Fraction of Inspired Oxygen 30 30 Intake/Output Intake/Output: Intake & Output 03/20/24 03/21/24 03/22/24 03/23/24 23:59 23:59 23:59 23:59 Intake Total 100 230 239.6 545.0 Output Total 1050 700 625 425 Balance -950 -470 -385.4 120.0 Meds/Results Medications: Active Medications Generic Name Dose Route Start Last Admin Trade Name Freq PRN Reason Stop Dose Admin Acetaminophen 500 mg 03/08/24 10:18 03/13/24 09:24 Acetaminophen 500 Mg Tablet FEED TUBE 500 mg Q6H PRN Administration Pain Rated 1-3 Albuterol/Ipratropium 3 ml 02/29/24 02:00 03/23/24 08:19 Ipratropium 0.5 Mg/Albuterol Sulfate 2.5 Mg Ampul.Neb 3 Ml INHALATION 3 ml Q6HRT JASON Administration Alteplase, Recombinant 2 mg 03/06/24 09:45 03/22/24 16:56 Alteplase 2 Mg Vial (Cathflo) IV PUSH 2 mg ONCE PRN Administration Line Occlusion Aspirin 81 mg 03/09/24 08:00 03/23/24 08:28 Aspirin 81 Mg Chewable Tablet FEED TUBE 81 mg DAILY@0800 JASON Administration Dextrose 12.5 gm 02/28/24 19:23 Dextrose 50% 25 Gm/50 Ml Syringe IV PUSH PRN PRN Hypoglycemia Protocol Enoxaparin Sodium 90 mg 03/23/24 07:45 03/23/24 08:29 Enoxaparin 100 Mg/Ml Syringe SUB-Q 90 mg Q12HR JASON Administration Glucagon 1 mg 02/28/24 19:23 Glucagon For Inj 1 Mg Vial IM PRN PRN Hypoglycemia Protocol Glucose 15 gm 03/08/24 10:19 Glucose Oral Gel 15 Gm Of Glucse In 37.5 Gm Tube FEED TUBE PRN PRN Hypoglycemia Protocol Dextrose 1,000 mls @ 100 mls/hr 02/28/24 19:23 Dextrose 5% 1,000 Ml IVPB PRN PRN Hypoglycemia Protocol Cefepime HCl 2 gm in 50 mls @ 100 mls/hr 03/17/24 09:00 03/23/24 08:30 Maxipime 2 Gm/Ns 50 Ml IVPB 03/23/24 21:29 100 mls/hr Q12H JASON Administration Fentanyl Citrate 2,500 mcg in 250 mls @ 5 mls/hr 03/22/24 12:15 03/23/24 08:00 Fentanyl 2,500 Mcg/Ns 250 Ml IV CONT 50 mcg/hr .Q50H JASON 5 mls/hr Titration Protocol 50 MCG/HR Midazolam HCl 100 mg in 100 mls @ 2 mls/hr 03/22/24 12:15 03/23/24 07:00 Versed 100 Mg/Ns 100 Ml IV CONT 2 mg/hr .Q50H JASON 2 mls/hr Titration Protocol 2 MG/HR Insulin Aspart 3 - 6 units 03/15/24 17:00 03/23/24 08:30 Insulin Aspart (*Bkc) 100 Units/Ml SUB-Q Not Given Q4HR JASON Protocol Insulin Glargine 55 units 03/15/24 09:00 03/16/24 10:44 Insulin Glargine (*Bkc) 100 Units/Ml SUB-Q 55 units DAILY JASON Administration Labetalol HCl 20 mg 03/08/24 10:06 03/08/24 16:48 Labetalol Hcl Inj 100 Mg/20 Ml Vial IV PUSH 20 mg Q4H PRN Administration SBP > 160 and HR> 60 -1st choice Morphine Sulfate 2 mg 03/19/24 19:39 03/21/24 20:36 Morphine Sulfate (*Crx) 2 Mg/Ml Inj IV PUSH 2 mg Q2HR PRN Administration Pain Rated 7-10 Multi-Ingred Cream/Lotion/Oil/Oint 1 applic 03/22/24 21:00 03/23/24 08:30 Mineral Oil/White Petrolatum Ointment EACH EYE 1 applic Q12HR JASON Administration Pantoprazole Sodium 40 mg 03/02/24 09:00 03/23/24 08:30 Pantoprazole Sodium Iv 40 Mg Vial IV PUSH 40 mg Q12HR JASON Administration Sodium Chloride 10 ml 02/29/24 06:00 03/23/24 06:19 Central Line Flush IV PUSH 10 ml Q8HR JASON Administration Sodium Chloride 20 ml 02/28/24 23:37 Central Line Flush IV PUSH PRN PRN after blood draws Sodium Chloride 20 ml 03/21/24 08:57 Central Line Flush IV PUSH PRN PRN after blood draws Sodium Chloride 10 ml 03/21/24 08:57 Central Line Flush IV PUSH PRN PRN with TPN bag changes Sodium Chloride 10 ml 03/21/24 14:00 03/23/24 06:19 Central Line Flush IV PUSH 10 ml Q8HR JASON Administration Radiology Results: ITS Impressions Lower Extremity CTA 02/28/24 14:54 IMPRESSION: 1. 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 2. Moderate stenosis of right popliteal artery. 3. Osteomyelitis involving first proximal and distal phalanges and head of first metatarsal. Head CT 02/29/24 05:55 Impression: No intracranial hemorrhage, mass, or acute infarct. Stable chronic encephalomalacia in the high left parietal lobe. Atrophy and chronic white matter changes, as above. Chest/Abdomen/Pelvis CTA 02/29/24 06:02 Impression: Extensive right upper lobe consolidation and more mild right middle lobe consolidation, consistent with pneumonia. Consider aspiration pneumonia. Moderate to large right pleural effusion with complete atelectasis of the right lower lobe. Moderate left pleural effusion with minimal left basilar atelectasis. Small pericardial effusion. No definite acute abnormality in the abdomen or pelvis. Chronic compression fractures, as above. Renal Ultrasound 03/03/24 15:45 IMPRESSION: 1. Normal kidneys without hydronephrosis. 2. Small amount of ascites in the abdomen and pelvis. Abdomen Ultrasound 03/13/24 16:52 IMPRESSION: 1. No etiology for abnormal liver function tests. 2. Normal hepatic veins and main portal vein. Right and left portal veins and proper hepatic artery not evaluated. 3. Right pleural effusion. Vascular Ultrasound 03/13/24 16:52 IMPRESSION: 1. No etiology for abnormal liver function tests. 2. Normal hepatic veins and main portal vein. Right and left portal veins and proper hepatic artery not evaluated. 3. Right pleural effusion. Chest/Abdomen/Pelvis CT 03/16/24 21:51 IMPRESSION: Anasarca Large pleural effusions with prominent compressive atelectasis of the lower lobes especially, dependent atelectasis of the middle and upper lobes Heart size. Prominent coronary artery atherosclerotic calcifications Minimal pericardial effusion Prominent diffuse thickening of urinary bladder wall suggesting cystitis area Ha catheter in bladder lumen Very prominent amount of fluid and large fluid level within the stomach despite presence of NG tube T11 and L1 moderate anterior wedge compression fractures, likely chronic Thoracentesis Ultrasound 03/18/24 10:27 IMPRESSION: 1. Successful ultrasound-guided thoracentesis yielding 550 mL of doris-colored fluid. Modified Barium Swallow 03/21/24 15:25 IMPRESSION: 1. Aspiration of thin liquids and pudding. 2. Please refer to the speech therapy report for recommendations. Tube Placement 03/22/24 11:33 IMPRESSION: 1. Fluoroscopy guided nasoenteric tube placement with tip in the stomach. Abdomen X-Ray 03/22/24 12:47 IMPRESSION: 1. Nasogastric tube tip in the stomach. 2. Nasoenteric tube tip in the stomach. Venous Doppler Study 03/22/24 16:38 IMPRESSION: Nonocclusive right subclavian vein thrombus. No additional deep venous thrombosis detected in the remaining bilateral upper extremity veins. Chest X-Ray 03/23/24 07:38 Impression: Probable moderate layering pleural effusions with underlying mild to moderate pulmonary edema pattern. Support tubes, as above. Labs Labs: Laboratory Results - last 24 hr 03/22/24 03/22/24 03/22/24 12:02 12:57 13:04 WBC 13.5 H RBC 3.62 L Hgb 10.0 L Hct 34.3 L MCV 94.8 MCH 27.6 MCHC 29.2 L RDW 19.0 H Plt Count 422 H MPV 9.7 Puncture Site Right radial ABG pH 7.460 H ABG pCO2 37.1 ABG pO2 152.7 H ABG PO2/FiO2 Ratio 3.05 ABG HCO3 25.8 ABG O2 Saturation 99.1 ABG O2 Content 12.9 L ABG Base Excess 2.0 A-a Gradient 162.1 Oxyhemoglobin 98.0 Carboxyhemoglobin Methemoglobin Reduced Hemoglobin Total Hemoglobin 9.1 L O2 Delivery Device Ventilator O2 Liters/Min Not Reportable Minute Volume Not Reportable Vent Rate 18 Vent Mode Cmv FiO2 50 Tidal Volume 380 PEEP 8 Peak Inspir Pressure Not Reportable Pressure Support Not Reportable Sodium 150 H Potassium 3.9 Chloride 114 H Carbon Dioxide 31 H Anion Gap 5 BUN 20 Creatinine 0.80 Estim Creat Clear Calc 79 Estimated GFR > 60 Glucose 186 H POC Capillary Glucose 170 H Calcium 8.4 Magnesium 2.4 H Total Bilirubin 1.0 AST 36 ALT 42 Alkaline Phosphatase 189 H Total Protein 7.0 Albumin 3.2 L 03/22/24 03/22/24 03/23/24 17:10 20:42 01:03 WBC RBC Hgb Hct MCV MCH MCHC RDW Plt Count MPV Puncture Site ABG pH ABG pCO2 ABG pO2 ABG PO2/FiO2 Ratio ABG HCO3 ABG O2 Saturation ABG O2 Content ABG Base Excess A-a Gradient Oxyhemoglobin Carboxyhemoglobin Methemoglobin Reduced Hemoglobin Total Hemoglobin O2 Delivery Device O2 Liters/Min Minute Volume Vent Rate Vent Mode FiO2 Tidal Volume PEEP Peak Inspir Pressure Pressure Support Sodium Potassium Chloride Carbon Dioxide Anion Gap BUN Creatinine Estim Creat Clear Calc Estimated GFR Glucose POC Capillary Glucose 149 H 134 H 124 H Calcium Magnesium Total Bilirubin AST ALT Alkaline Phosphatase Total Protein Albumin 03/23/24 03/23/24 03/23/24 04:35 04:44 07:51 WBC 9.5 RBC 2.91 L Hgb 8.1 L Hct 27.8 L MCV 95.5 MCH 27.8 MCHC 29.1 L RDW 19.3 H Plt Count 250 MPV 10.0 Puncture Site Right brachial ABG pH 7.443 ABG pCO2 42.5 ABG pO2 79.2 L ABG PO2/FiO2 Ratio 2.64 ABG HCO3 28.4 H ABG O2 Saturation 96.1 ABG O2 Content 12.1 L ABG Base Excess 3.9 A-a Gradient 84.8 Oxyhemoglobin 95.0 Carboxyhemoglobin 0.9 Methemoglobin 0.1 Reduced Hemoglobin 4.0 Total Hemoglobin 9.0 L O2 Delivery Device Ventilator O2 Liters/Min Not Reportable Minute Volume Vent Rate 16 Vent Mode Cmv FiO2 30 Tidal Volume 380 PEEP 8 Peak Inspir Pressure Pressure Support Sodium 149 H Potassium 3.3 L Chloride 118 H Carbon Dioxide 30 Anion Gap 1 L BUN 22 H Creatinine 0.80 Estim Creat Clear Calc 79 Estimated GFR > 60 Glucose 167 H POC Capillary Glucose 157 H Calcium 7.8 L Magnesium 2.3 Total Bilirubin 0.7 AST 31 ALT 33 Alkaline Phosphatase 143 H Total Protein 6.0 L Albumin 2.6 L Hospitalist MIPS Advance Care Plan I have confirmed that the patient's Advanced Care Plan is present, code status is documented, or surrogate decision maker is listed in patient medical record.: Yes Medication Reconciliation I have utilized all available resources to obtain, update and review the patients current medications (includes all prescriptions, OTC, herbals, cannabis, and nutritional supplements).: Yes
[2024-03-23 11:59] LABS: Glucose Point of Care 167 mg/dl (65-105)
--- NOTE | 2024-03-23 12:29 | P.PNGI_ITS ---
Progress Note: A&P Assessment and Plan (1) Dysphagia: Code(s): R13.10 - Dysphagia, unspecified Status: Acute Assessment and Plan: he became tachypneic again and was reintubated now he needs trach and group home feeding- primary team talked to POA and agreeable to G-tube placement (2) Acute respiratory failure with hypoxia: Code(s): J96.01 - Acute respiratory failure with hypoxia Status: Acute Assessment and Plan: sedated and intubated by hub inventory specialist (3) Cardiac arrest with pulseless electrical activity: Code(s): I46.9 - Cardiac arrest, cause unspecified Status: Acute (4) Chronic obstructive pulmonary disease: Code(s): J44.9 - Chronic obstructive pulmonary disease, unspecified Status: Chronic (5) 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: Code(s): E11.9 - Type 2 diabetes mellitus without complications Status: Chronic (6) Elevated LFTs: Code(s): R79.89 - Other specified abnormal findings of blood chemistry Status: Acute Assessment and Plan: resolved this was after cardiac arrest and ischemia Subjective Date/time seen: 03/23/24 12:29 Interval history: we saw patient days ago when he had elevated liver enzymes after cardiac arrest and ischemia- this improved patient unfortunately had to be reintubated for third time (extubated 3 days ago), primary team talked to POA and agreeable now to get trach and PEG placement as group home plan Review of Systems Review of Systems: All systems reviewed & are unremarkable except as noted in HPI and below Exam Narrative: General: Patient intubated sedated and in no acute distress HEENT: pupils are equal and reactive from a sclera is clear Neck:? supple Respiratory:? Coarse breath sounds bilaterally, decreased at bases, adequate air entry, no wheezing Cardiac:? S1-S2 normal, regular rate and rhythm Abdomen:? Soft, nontender, nondistended, bowel sounds are decreased but present Extremities:? Right BKA stump under the dressing. Neuro:? he is sedated, withdrawing to pain and stimuli Skin:? pressure ulcer on his buttocks. Psych:? unable to assess Objective Data Vital Signs Vital Signs: Vital Signs - 24 hr 03/22/24 12:40 03/22/24 14:00 03/22/24 14:00 Temperature 98.4 F Pulse Rate 115 H 108 H 108 H Respiratory Rate 16 Blood Pressure 96/60 L Pulse Oximetry 99 98 Oxygen Delivery Mechanical Ventilation Fraction of Inspired Oxygen 50 03/22/24 13:38 03/22/24 13:15 03/22/24 14:00 Temperature Pulse Rate 114 H 114 H Respiratory Rate 16 Blood Pressure Pulse Oximetry 99 Oxygen Delivery Mechanical Ventilation Fraction of Inspired Oxygen 35 35 03/22/24 16:33 03/22/24 16:00 03/22/24 13:00 Temperature 98.1 F Pulse Rate 99 96 118 H Respiratory Rate 16 20 Blood Pressure 92/55 L Pulse Oximetry 100 100 Oxygen Delivery Mechanical Ventilation Fraction of Inspired Oxygen 30 03/22/24 13:00 03/22/24 15:00 03/22/24 17:00 Temperature Pulse Rate 118 H 102 H 98 Respiratory Rate 20 16 16 Blood Pressure Pulse Oximetry Oxygen Delivery Fraction of Inspired Oxygen 03/22/24 15:00 03/22/24 17:00 03/22/24 16:00 Temperature Pulse Rate 118 H 98 Respiratory Rate 20 16 Blood Pressure Pulse Oximetry Oxygen Delivery Fraction of Inspired Oxygen 30 03/22/24 16:00 03/22/24 18:00 03/22/24 16:00 Temperature 98.1 F Pulse Rate 100 94 Respiratory Rate 16 16 Blood Pressure 106/64 Pulse Oximetry 100 98 Oxygen Delivery Mechanical Ventilation Fraction of Inspired Oxygen 35 03/22/24 18:00 03/22/24 20:00 03/22/24 20:15 Temperature 98.1 F Pulse Rate 99 101 H Respiratory Rate 12 Blood Pressure 85/53 L 94/55 L Pulse Oximetry 97 Oxygen Delivery Fraction of Inspired Oxygen 03/22/24 20:00 03/22/24 20:00 03/22/24 21:05 Temperature Pulse Rate 101 H 101 H 108 H Respiratory Rate 12 12 26 H Blood Pressure Pulse Oximetry Oxygen Delivery Fraction of Inspired Oxygen 03/22/24 19:00 03/22/24 19:00 03/22/24 21:09 Temperature Pulse Rate 102 H 102 H 100 Respiratory Rate 16 16 Blood Pressure Pulse Oximetry 100 Oxygen Delivery Mechanical Ventilation Fraction of Inspired Oxygen 30 03/22/24 21:09 03/22/24 20:00 03/22/24 20:00 Temperature Pulse Rate 100 104 H Respiratory Rate 20 Blood Pressure Pulse Oximetry Oxygen Delivery Fraction of Inspired Oxygen 30 03/22/24 20:00 03/22/24 22:00 03/22/24 22:00 Temperature 98.1 F Pulse Rate 101 H 99 99 Respiratory Rate 12 16 Blood Pressure 96/52 L Pulse Oximetry 97 99 Oxygen Delivery Mechanical Ventilation Fraction of Inspired Oxygen 30 03/22/24 22:00 03/22/24 22:00 03/22/24 23:06 Temperature Pulse Rate 99 99 96 Respiratory Rate 16 16 Blood Pressure Pulse Oximetry 98 Oxygen Delivery Mechanical Ventilation Fraction of Inspired Oxygen 30 03/23/24 00:00 03/23/24 00:00 03/23/24 00:00 Temperature 98.0 F Pulse Rate 91 91 91 Respiratory Rate 10 L 10 L 10 L Blood Pressure 90/50 L Pulse Oximetry 100 Oxygen Delivery Fraction of Inspired Oxygen 03/23/24 00:00 03/23/24 00:00 03/23/24 00:00 Temperature Pulse Rate 91 90 Respiratory Rate 10 L Blood Pressure Pulse Oximetry 100 Oxygen Delivery Mechanical Ventilation Fraction of Inspired Oxygen 30 30 03/23/24 02:07 03/23/24 02:07 03/23/24 02:00 Temperature Pulse Rate 102 H 102 H 98 Respiratory Rate 16 Blood Pressure Pulse Oximetry 100 Oxygen Delivery Mechanical Ventilation Fraction of Inspired Oxygen 30 03/23/24 02:00 03/23/24 02:00 03/23/24 02:00 Temperature 98.1 F Pulse Rate 98 98 98 Respiratory Rate 16 16 16 Blood Pressure 99/49 L Pulse Oximetry 100 Oxygen Delivery Fraction of Inspired Oxygen 03/23/24 04:00 03/23/24 04:00 03/23/24 04:25 Temperature Pulse Rate 104 H 104 H 107 H Respiratory Rate 19 19 20 Blood Pressure Pulse Oximetry Oxygen Delivery Fraction of Inspired Oxygen 03/23/24 04:00 03/23/24 04:00 03/23/24 04:00 Temperature 98.3 F Pulse Rate 104 H 104 H Respiratory Rate 19 Blood Pressure 104/54 L Pulse Oximetry 97 Oxygen Delivery Fraction of Inspired Oxygen 30 03/23/24 05:15 03/23/24 06:00 03/23/24 06:00 Temperature 98.7 F Pulse Rate 113 H 107 H 107 H Respiratory Rate 19 Blood Pressure 104/54 L Pulse Oximetry 99 96 Oxygen Delivery Mechanical Ventilation Fraction of Inspired Oxygen 30 03/23/24 04:00 03/23/24 06:00 03/23/24 06:00 Temperature Pulse Rate 104 H 107 H 107 H Respiratory Rate 19 19 19 Blood Pressure Pulse Oximetry 97 Oxygen Delivery Mechanical Ventilation Fraction of Inspired Oxygen 30 03/23/24 08:23 03/23/24 08:24 03/23/24 08:00 Temperature 98 F Pulse Rate 101 H 101 H 101 H Respiratory Rate 17 22 H Blood Pressure 102/54 L Pulse Oximetry 100 100 Oxygen Delivery Mechanical Ventilation Fraction of Inspired Oxygen 30 03/23/24 08:00 03/23/24 07:00 03/23/24 08:35 Temperature Pulse Rate 104 H 102 H 104 H Respiratory Rate 22 H 22 H 16 Blood Pressure Pulse Oximetry Oxygen Delivery Fraction of Inspired Oxygen 03/23/24 08:00 03/23/24 10:00 03/23/24 08:00 Temperature Pulse Rate 96 104 H Respiratory Rate Blood Pressure Pulse Oximetry 99 Oxygen Delivery Mechanical Ventilation Fraction of Inspired Oxygen 30 03/23/24 08:00 03/23/24 10:36 03/23/24 10:00 Temperature 98.5 F Pulse Rate 104 H 111 H Respiratory Rate 19 Blood Pressure 110/64 Pulse Oximetry 97 99 Oxygen Delivery Mechanical Ventilation Fraction of Inspired Oxygen 30 30 03/23/24 10:00 03/23/24 10:00 03/23/24 12:00 Temperature Pulse Rate 111 H 111 H 105 H Respiratory Rate 19 19 Blood Pressure Pulse Oximetry Oxygen Delivery Fraction of Inspired Oxygen Intake/Output Intake/Output: Intake & Output 03/20/24 03/21/24 03/22/24 03/23/24 23:59 23:59 23:59 23:59 Intake Total 100 230 239.6 611.0 Output Total 1050 700 625 425 Balance -950 -470 -385.4 186.0 Meds/Results Medications: Active Medications Generic Name Dose Route Start Last Admin Trade Name Freq PRN Reason Stop Dose Admin Acetaminophen 500 mg 03/08/24 10:18 03/13/24 09:24 Acetaminophen 500 Mg Tablet FEED TUBE 500 mg Q6H PRN Administration Pain Rated 1-3 Albuterol/Ipratropium 3 ml 02/29/24 02:00 03/23/24 08:19 Ipratropium 0.5 Mg/Albuterol Sulfate 2.5 Mg Ampul.Neb 3 Ml INHALATION 3 ml Q6HRT JASON Administration Alteplase, Recombinant 2 mg 03/06/24 09:45 03/22/24 16:56 Alteplase 2 Mg Vial (Cathflo) IV PUSH 2 mg ONCE PRN Administration Line Occlusion Aspirin 81 mg 03/09/24 08:00 03/23/24 08:28 Aspirin 81 Mg Chewable Tablet FEED TUBE 81 mg DAILY@0800 JASON Administration Dextrose 12.5 gm 02/28/24 19:23 Dextrose 50% 25 Gm/50 Ml Syringe IV PUSH PRN PRN Hypoglycemia Protocol Enoxaparin Sodium 90 mg 03/23/24 07:45 03/23/24 08:29 Enoxaparin 100 Mg/Ml Syringe SUB-Q 90 mg Q12HR JASON Administration Glucagon 1 mg 02/28/24 19:23 Glucagon For Inj 1 Mg Vial IM PRN PRN Hypoglycemia Protocol Glucose 15 gm 03/08/24 10:19 Glucose Oral Gel 15 Gm Of Glucse In 37.5 Gm Tube FEED TUBE PRN PRN Hypoglycemia Protocol Dextrose 1,000 mls @ 100 mls/hr 02/28/24 19:23 Dextrose 5% 1,000 Ml IVPB PRN PRN Hypoglycemia Protocol Cefepime HCl 2 gm in 50 mls @ 100 mls/hr 03/17/24 09:00 03/23/24 09:00 Maxipime 2 Gm/Ns 50 Ml IVPB 03/23/24 21:29 Infused Q12H JASON Infusion Fentanyl Citrate 2,500 mcg in 250 mls @ 5 mls/hr 03/22/24 12:15 03/23/24 10:00 Fentanyl 2,500 Mcg/Ns 250 Ml IV CONT 50 mcg/hr .Q50H JASON 5 mls/hr Titration Protocol 50 MCG/HR Midazolam HCl 100 mg in 100 mls @ 2 mls/hr 03/22/24 12:15 03/23/24 10:00 Versed 100 Mg/Ns 100 Ml IV CONT 2 mg/hr .Q50H JASON 2 mls/hr Titration Protocol 2 MG/HR Insulin Aspart 3 - 6 units 03/15/24 17:00 03/23/24 08:30 Insulin Aspart (*Bkc) 100 Units/Ml SUB-Q Not Given Q4HR [facility] Protocol Insulin Glargine 55 units 03/15/24 09:00 03/16/24 10:44 Insulin Glargine (*Bkc) 100 Units/Ml SUB-Q 55 units DAILY JASON Administration Labetalol HCl 20 mg 03/08/24 10:06 03/08/24 16:48 Labetalol Hcl Inj 100 Mg/20 Ml Vial IV PUSH 20 mg Q4H PRN Administration SBP > 160 and HR> 60 -1st choice Morphine Sulfate 2 mg 03/19/24 19:39 03/21/24 20:36 Morphine Sulfate (*Crx) 2 Mg/Ml Inj IV PUSH 2 mg Q2HR PRN Administration Pain Rated 7-10 Multi-Ingred Cream/Lotion/Oil/Oint 1 applic 03/22/24 21:00 03/23/24 08:30 Mineral Oil/White Petrolatum Ointment EACH EYE 1 applic Q12HR JASON Administration Pantoprazole Sodium 40 mg 03/02/24 09:00 03/23/24 08:30 Pantoprazole Sodium Iv 40 Mg Vial IV PUSH 40 mg Q12HR JASON Administration Sodium Chloride 10 ml 02/29/24 06:00 03/23/24 06:19 Central Line Flush IV PUSH 10 ml Q8HR JASON Administration Sodium Chloride 20 ml 02/28/24 23:37 Central Line Flush IV PUSH PRN PRN after blood draws Sodium Chloride 20 ml 03/21/24 08:57 Central Line Flush IV PUSH PRN PRN after blood draws Sodium Chloride 10 ml 03/21/24 08:57 Central Line Flush IV PUSH PRN PRN with TPN bag changes Sodium Chloride 10 ml 03/21/24 14:00 03/23/24 06:19 Central Line Flush IV PUSH 10 ml Q8HR JASON Administration Radiology Results: ITS Impressions Lower Extremity CTA 02/28/24 14:54 IMPRESSION: 1. 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 2. Moderate stenosis of right popliteal artery. 3. Osteomyelitis involving first proximal and distal phalanges and head of first metatarsal. Head CT 02/29/24 05:55 Impression: No intracranial hemorrhage, mass, or acute infarct. Stable chronic encephalomalacia in the high left parietal lobe. Atrophy and chronic white matter changes, as above. Chest/Abdomen/Pelvis CTA 02/29/24 06:02 Impression: Extensive right upper lobe consolidation and more mild right middle lobe consolidation, consistent with pneumonia. Consider aspiration pneumonia. Moderate to large right pleural effusion with complete atelectasis of the right lower lobe. Moderate left pleural effusion with minimal left basilar atelectasis. Small pericardial effusion. No definite acute abnormality in the abdomen or pelvis. Chronic compression fractures, as above. Renal Ultrasound 03/03/24 15:45 IMPRESSION: 1. Normal kidneys without hydronephrosis. 2. Small amount of ascites in the abdomen and pelvis. Abdomen Ultrasound 03/13/24 16:52 IMPRESSION: 1. No etiology for abnormal liver function tests. 2. Normal hepatic veins and main portal vein. Right and left portal veins and proper hepatic artery not evaluated. 3. Right pleural effusion. Vascular Ultrasound 03/13/24 16:52 IMPRESSION: 1. No etiology for abnormal liver function tests. 2. Normal hepatic veins and main portal vein. Right and left portal veins and p kishore hepatic artery not evaluated. 3. Right pleural effusion. Chest/Abdomen/Pelvis CT 03/16/24 21:51 IMPRESSION: Anasarca Large pleural effusions with prominent compressive atelectasis of the lower lobes especially, dependent atelectasis of the middle and upper lobes Heart size. Prominent coronary artery atherosclerotic calcifications Minimal pericardial effusion Prominent diffuse thickening of urinary bladder wall suggesting cystitis area Ha catheter in bladder lumen Very prominent amount of fluid and large fluid level within the stomach despite presence of NG tube T11 and L1 moderate anterior wedge compression fractures, likely chronic Thoracentesis Ultrasound 03/18/24 10:27 IMPRESSION: 1. Successful ultrasound-guided thoracentesis yielding 550 mL of doris-colored fluid. Modified Barium Swallow 03/21/24 15:25 IMPRESSION: 1. Aspiration of thin liquids and pudding. 2. Please refer to the speech therapy report for recommendations. Tube Placement 03/22/24 11:33 IMPRESSION: 1. Fluoroscopy guided nasoenteric tube placement with tip in the stomach. Abdomen X-Ray 03/22/24 12:47 IMPRESSION: 1. Nasogastric tube tip in the stomach. 2. Nasoenteric tube tip in the stomach. Venous Doppler Study 03/22/24 16:38 IMPRESSION: Nonocclusive right subclavian vein thrombus. No additional deep venous thrombosis detected in the remaining bilateral upper extremity veins. Chest X-Ray 03/23/24 07:38 Impression: Probable moderate layering pleural effusions with underlying mild to moderate pulmonary edema pattern. Support tubes, as above. Labs Labs: Laboratory Results - last 24 hr 03/22/24 03/22/24 03/22/24 12:57 13:04 17:10 WBC RBC Hgb Hct MCV MCH MCHC RDW Plt Count MPV Puncture Site Right radial ABG pH 7.460 H ABG pCO2 37.1 ABG pO2 152.7 H ABG PO2/FiO2 Ratio 3.05 ABG HCO3 25.8 ABG O2 Saturation 99.1 ABG O2 Content 12.9 L ABG Base Excess 2.0 A-a Gradient 162.1 Oxyhemoglobin 98.0 Carboxyhemoglobin Methemoglobin Reduced Hemoglobin Total Hemoglobin 9.1 L O2 Delivery Device Ventilator O2 Liters/Min Not Reportable Minute Volume Not Reportable Vent Rate 18 Vent Mode Cmv FiO2 50 Tidal Volume 380 PEEP 8 Peak Inspir Pressure Not Reportable Pressure Support Not Reportable Sodium Potassium Chloride Carbon Dioxide Anion Gap BUN Creatinine Estim Creat Clear Calc Estimated GFR Glucose POC Capillary Glucose 170 H 149 H Calcium Magnesium Total Bilirubin AST ALT Alkaline Phosphatase Total Protein Albumin 03/22/24 03/23/24 03/23/24 20:42 01:03 04:35 WBC 9.5 RBC 2.91 L Hgb 8.1 L Hct 27.8 L MCV 95.5 MCH 27.8 MCHC 29.1 L RDW 19.3 H Plt Count 250 MPV 10.0 Puncture Site ABG pH ABG pCO2 ABG pO2 ABG PO2/FiO2 Ratio ABG HCO3 ABG O2 Saturation ABG O2 Content ABG Base Excess A-a Gradient Oxyhemoglobin Carboxyhemoglobin Methemoglobin Reduced Hemoglobin Total Hemoglobin O2 Delivery Device O2 Liters/Min Minute Volume Vent Rate Vent Mode FiO2 Tidal Volume PEEP Peak Inspir Pressure Pressure Support Sodium 149 H Potassium 3.3 L Chloride 118 H Carbon Dioxide 30 Anion Gap 1 L BUN 22 H Creatinine 0.80 Estim Creat Clear Calc 79 Estimated GFR > 60 Glucose 167 H POC Capillary Glucose 134 H 124 H Calcium 7.8 L Magnesium 2.3 Total Bilirubin 0.7 AST 31 ALT 33 Alkaline Phosphatase 143 H Total Protein 6.0 L Albumin 2.6 L 03/23/24 03/23/24 03/23/24 04:44 07:51 11:36 WBC RBC Hgb Hct MCV MCH MCHC RDW Plt Count MPV Puncture Site Right brachial ABG pH 7.443 ABG pCO2 42.5 ABG pO2 79.2 L ABG PO2/FiO2 Ratio 2.64 ABG HCO3 28.4 H ABG O2 Saturation 96.1 ABG O2 Content 12.1 L ABG Base Excess 3.9 A-a Gradient 84.8 Oxyhemoglobin 95.0 Carboxyhemoglobin 0.9 Methemoglobin 0.1 Reduced Hemoglobin 4.0 Total Hemoglobin 9.0 L O2 Delivery Device Ventilator O2 Liters/Min Not Reportable Minute Volume Vent Rate 16 Vent Mode Cmv FiO2 30 Tidal Volume 380 PEEP 8 Peak Inspir Pressure Pressure Support Sodium Potassium Chloride Carbon Dioxide Anion Gap BUN Creatinine Estim Creat Clear Calc Estimated GFR Glucose POC Capillary Glucose 157 H 167 H Calcium Magnesium Total Bilirubin AST ALT Alkaline Phosphatase Total Protein Albumin
[2024-03-23 16:13] LABS: Glucose Point of Care 158 mg/dl (65-105)
[2024-03-23 20:50] LABS: Glucose Point of Care 157 mg/dl (65-105)
[2024-03-24] VITALS (31 sets, daily range): BP systolic 90–106; BP diastolic 54–74; PULSE 95–112; RESP 15–22; TEMP 36.9–37.6; O2SAT 97–100
[2024-03-24 01:07] LABS: Glucose Point of Care 172 mg/dl (65-105)
[2024-03-24] MEDS: IPRATROPIUM 0.5 MG/ALBUTEROL SULFATE 2.5 MG AMPUL.NEB 3 ML INHALATION ×4 (01:57→20:24)
[2024-03-24] MEDS: FENTANYL 2,500MCG/NS250ML(*CRX 2,500 MCG/250 ML BAG 7.5 MCG IV CONT (02:48)
[2024-03-24] MEDS: MIDAZOLAM 100MG/NS 100ML(*CRX) 100 MG/100 ML BAG IV CONT (03:38)
[2024-03-24 04:55] LABS: Hematocrit 27.7 % (42.0-52.0); Hemoglobin 7.7 g/dL (14.0-18.0); Mean Corpuscular HGB Conc 27.8 g/dl (32-36); Mean Corpuscular Hemoglobin 27.3 pg (26-34); Mean Corpuscular Volume 98.2 fl (80-100); Mean Platelet Volume 9.6 fl (7.4-10.4); Platelet Count Result 216 k/mm3 (150-375); Red Blood Count 2.82 M/mm3 (4.6-6.20); Red Cell Distribution Width 19.2 % (11.5-14.5); White Blood Count 8.1 K/mm3 (4.5-10.0)
[2024-03-24 05:13] LABS: Alanine Aminotransferase 28 U/L (6-50); Albumin Level 2.5 g/dL (3.5-5.1); Alkaline Phosphatase 129 U/L (38-126); Anion Gap 2 mmol/L (4-12); Aspartate Amino Transferase 26 U/L (17-59); Bilirubin,Total 0.6 mg/dL (0.2-1.3); Blood Urea Nitrogen 20 mg/dL (9-20); Calcium 7.7 mg/dL (8.4-10.2); Carbon Dioxide 30 mmol/L (22-30); Chloride 114 mmol/L (98-107); Estimated CRCL calculation 79 ml/min; Estimated Glomerular Filt Rate > 60; Glucose 173 mg/dL (65-110); Magnesium 2.2 mg/dL (1.6-2.3); Potassium 3.9 mmol/L (3.4-5.0); Sodium 146 mmol/L (137-145)
[2024-03-24] MEDS: CENTRAL LINE FLUSH 10 ML IV PUSH ×6 (06:08→20:14)
[2024-03-24 06:51] LABS: Alveolar/Arterial O2 Gradient 77.1 mmHg; Base Excess ABG 3.6 mEq/l (+/-2.0); Carboxyhemoglobin 1.2 % THb (0-2.0); Fractional Inspired Oxygen 30 %; HCO3 ABG 28.2 mEq/l (22.0-26.0); Methemoglobin ABG 0.3 %THb (0-1.5); Oxygen Content ABG 11.6 %vol (16.0-22.0); Oxygen Saturation ABG 96.8 % (95.0-100.0); Oxyhemoglobin 95.8 % THb (90.0-100.0); PCO2 ABG 42.9 mmHg (35.0-45.0); PO2 ABG 86.4 mmHg (80.0-100.0); PO2 FiO2 Ratio Arterial Blood 2.88 %; Reduced Hemoglobin 2.7 %THb (0-5.0); Total Hemoglobin 8.5 g/dL (12.0-18.0); pH ABG 7.435 (7.350-7.450)
[2024-03-24 06:52] LABS: Arterial Blood Gas Ventilator rate 16 /MIN; Device VENTILATOR; Modified Allen's Test Pass; Site Drawn RIGHT BRACHIAL
[2024-03-24 06:53] LABS: Arterial Blood Gas PEEP 8 cmH2O; Arterial Blood Gas Tidal Volume 380 ml; Arterial Blood Gas Vent Mode CMV
[2024-03-24 08:07] LABS: Glucose Point of Care 182 mg/dl (65-105)
--- NOTE | 2024-03-24 08:07 | PCSTNOTE ---
Treatment order discontinued secondary to re-intubation. Will request new orders when patient is appropriate.
[2024-03-24] MEDS: PANTOPRAZOLE SODIUM IV 40 MG VIAL IV PUSH ×2 (08:09→20:12)
[2024-03-24] MEDS: ASPIRIN 81 MG CHEWABLE TABLET FEED TUBE (08:09)
[2024-03-24] MEDS: polyethylene glycoL 3350 17 GM POWD.PACK PO (08:09)
[2024-03-24] MEDS: MINERAL OIL/WHITE PETROLATUM OINTMENT 1 APPLIC EACH EYE ×2 (08:09→20:13)
[2024-03-24] MEDS: CALCIUM GLUC 2,000 MG/NS 100ML 2,000 MG/100 ML BAG 100 MG IVPB (08:09)
[2024-03-24] MEDS: ENOXAPARIN 100 MG/ML SYRINGE 90 MG SUB-Q ×2 (08:09→20:12)
--- NOTE | 2024-03-24 09:52 | WPDINTPN ---
Progress Note: A&P Assessment and Plan (1) Acute respiratory failure with hypoxia: Code(s): J96.01 - Acute respiratory failure with hypoxia Status: Acute Assessment and Plan: Acute respiratory failure likely related to cardiac arrest, aspiration pneumonia, NSTEMI, hypoxia, septic shock Worsening likely secondary to ARDS versus pulmonary edema Intubated 02/27 02/28 Chest CTA: Extensive right upper lobe consolidation and more mild right middle lobe consolidation, consistent with pneumonia. Consider aspiration pneumonia.Moderate to large right pleural effusion with complete atelectasis of the right lower lobe. Moderate left pleural effusion with minimal left basilar atelectasis. Small pericardial effusion. No definite acute abnormality in the abdomen or pelvis. Chronic compression fractures, as above . -03/07 right thoracentesis with 1 L fluid removed -03/08 left-sided thoracentesis 550 mL -03/11: patient was in pressure support ventilation 02/18, with decrease tidal volumes in the upper 200s. place patient back on CMV, I have asked the bedside RN to decrease the Precedex infusion once patient is more awake will place back on spontaneous breathing trials 03/12: Place patient on SBT 04/17, low tidal volumes, low respiratory rate. Patient had replaced back on CMV mode of ventilation. -even on ASV patient is breathing only 7-8 times a minute 03/13: Off Precedex infusion overnight, placed patient on pressure support ventilation 04/17, initially did well but not significantly tachycardic and tachypneic and in respiratory distress, patient was placed back on CMV mode of ventilation and low-dose was 03/14 8/5 PSV SBT done for more than 1 hour. RSBI, ABG and Vitals acceptable. Pt awake and following commands. Patient was extubated. Initially patient did well and was on nasal cannula and was able to communicate. Over 12 hours patient became more hypoxic with increased respiratory distress and tachypnea. I spoke to patient post extubation and was agreeable to re-intubation if needed and stated that 'he is not ready to ' and 'do what ever it takes'. He was re intubated at night. I also mentioned to him that he may need tracheostomy and PEG tube placement if he gets we intubated and is not weanable. He told me 'to proceed with it if needed'. Solu-Medrol IV given for airway edema and will be continued for 24 hours -completed course of Solu-Medrol -continue bronchodilators -CT scan shows large pleural effusions bilaterally. I will request IR for thoracentesis.. Patient is on minimal ventilator setting but has failed trials initially multiple times and then once extubated he was reintubated within 12 hours. I will treat try again after thoracentesis to see patient is weanable from the vent otherwise will proceed with trach and PEG as patient has been on ventilator for more than 2 weeks. 03/17 right thoracentesis 1 L fluid was removed 03/18 left thoracentesis 550 mL fluid was removed Will also continue diuretics. 03/19 patient was extubated after weaning trial 03/20 continue nasal cannula, BiPAP p.r.n., hold diuretics, incentive spirometry, spoke to patient after extubation yesterday he is willing to be intubated if needed and proceed with trach and PEG if needed hopefully we can avoid that situation 03/21 patient continues to require BiPAP intermittently and tolerates nasal cannula. He appears quite weak although he does have borderline cough. Continue incentive spirometry. P.r.n. BiPAP. BiPAP at night. Nasal cannula as tolerated. Patient remains at risk of requiring intubation. I spoke to patient again and mention that to him and he verbalized understanding by noting his head. I will check chest x-ray. Continue ICU monitoring 03/22 discussed with the patient emphasized importance of using BiPAP for increased work of breathing and at night due to his deconditioning and weakness. He is currently saturating on nasal cannula and appears not in any respiratory distress. later patient deteriorated and required re-intubation 03/23 ABG and chest x-ray. patient has failed extubation twice and has been on ventilator for close to 20 days. Patient is awaiting trach now . ENT consulted 03/24 ABG and chest x-ray reviewed. Continue mechanical ventilation. May have to transfer to another hospital for tracheostomy if ENT coverage is not available here. (2) Elevated LFTs: Code(s): R79.89 - Other specified abnormal findings of blood chemistry Status: Acute Assessment and Plan: 03/13: Significant elevation in LFTs, AST 2280, ALT 988, alk-phos 722 -patient has been hemodynamically stable, no hypotension noted in the last 24-48 hours -statin discontinued. Hold Tylenol -no tenderness in the right upper, lower quadrant or epigastric region on exam -negative vital hepatitis panel, right upper quadrant ultrasound with Doppler negative for hepatic or portal vein thrombosis -patient evaluated by GI -levels improving. Monitor (3) Cardiac arrest with pulseless electrical activity: Code(s): I46.9 - Cardiac arrest, cause unspecified Status: Acute Assessment and Plan: Cardiac arrest, secondary to unknown etiology. Possible aspiration pneumonia, NSTEMI, hypoxia, septic shock, infection -see code blue sheet for the details -patient currently intubated, vasopressors for blood pressure support have been weaned off -appreciate cardiology following the patient 02/29/2024 echocardiogram Summary 1. Technically difficult study with limited views. 2. Left ventricular chamber dimension is normal. 3. Left ventricular systolic function is mildly reduced, estimated at 45-50%. The apex appears to be hypokinetic. 4. There is mildly increased left ventricular wall thickness. 5. The left ventricular diastolic function is grade I diastolic dysfunction. 6. Right ventricular systolic function is normal. 7. Left atrial chamber dimension is moderately enlarged. 8. There is mild to moderate tricuspid valve regurgitation. 9. There is small anterior pericardial effusion. (4) Septic shock: Code(s): A41.9 - Sepsis, unspecified organism; R65.21 - Severe sepsis with septic shock Status: Acute Assessment and Plan: Resolved Patient in shock, likely related to the gangrene, aspiration pneumonia, status post cardiac arrest 02/28/2024: Blood cultures have been obtained and negative Off vasopressors and IV fluids Status post 10 days of antibiotics 03/16 low-grade fever increase in WBC CT scan as above, repeat blood cultures and sputum pending UA suggestive of UTI. Urine cultures pending. Ha has been changed. Completed course of cefepime (5) NSTEMI (non-ST elevated myocardial infarction): Code(s): I21.4 - Non-ST elevation (NSTEMI) myocardial infarction Status: Acute Assessment and Plan: -appreciate cardiology evaluation and recommendation -Continue aspirin and high-dose a statin -will hold Brilinta. Resumption per General surgery - beta-brayden, losartan are on hold due to soft blood pressure. Will resume beta-brayden -03/02 heparin infusion was discontinued after 48 hours for NSTEMI by cardiology (6) Gangrene of right foot: Code(s): I96 - Gangrene, not elsewhere classified Status: Acute Assessment and Plan: CTA showed peripheral arterial disease with total occlusion of the right anterior and posterior tibial arteries and right peroneal artery with distal reconstitution of peroneal artery. This extensive gangrene of the right foot with gas seen on CT of the foot. General surgery spoke to the patient in the ER on the day of admission on 02/27 patient at that time agreed for below-knee amputation. Plan was to do a below-knee amputation on 02/29/2024 but patient had a cardiac arrest that night secondary to sepsis. Surgery at that time was deferred. Patient now is intubated sedated and unable to sign his consent.. Patient has no family and for many years at the senior care has had no visitor. He has 1 son which no one has been able to get hold off right several attempts. Considering patient has gangrene of the foot with no vascular supply leading to sepsis and if untreatable lead to his , Dr. Johns will proceed with amputation today, 03/05/2024. Dr. Collins and Dr. Johns has signed 2 physician consent considering patient's clearly expressed wishes prior to cardiac arrest at the time of admission, his current situation and inability to sign the consent form by himself at this time. 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 -complete 5 days of clindamycin 03/13: Discussed with surgery, there is flexion contractures of his amputation which may hinder in him getting prosthetics, patient may require above knee amputation (7) Osteomyelitis of toe of right foot: Code(s): M86.9 - Osteomyelitis, unspecified Status: Chronic Assessment and Plan: As above (8) Peripheral vascular disease: Code(s): I73.9 - Peripheral vascular disease, unspecified Status: Chronic Assessment and Plan: Patient has history of peripheral vascular disease, coronary artery disease -started on aspirin, patient will require Brilinta since he had a STEMI in 2020 but currently holding Brilinta due to surgery and bleeding (9) Type 2 diabetes mellitus: Qualifiers: 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 complication status: with other specified complication 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 usp insulin use: with extermination inspector use Qualified Code(s): E11.69 - Type 2 diabetes mellitus with other specified complication; Z79.4 - detention (current) use of insulin Code(s): E11.9 - Type 2 diabetes mellitus without complications Status: Acute Assessment and Plan: Currently on sliding scale insulin, Accu-Cheks Hemoglobin A1c this admission is 8.2 (10) Chronic obstructive pulmonary disease: Code(s): J44.9 - Chronic obstructive pulmonary disease, unspecified Status: Chronic Assessment and Plan: Continue DuoNebs -continue Symbicort (11) Electrolyte abnormality: Code(s): E87.8 - Other disorders of electrolyte and fluid balance, not elsewhere classified Status: Acute Assessment and Plan: Hypernatremia, hold diuretics. continue free water flush. Sodium improving (12) Ileus: Code(s): K56.7 - Ileus, unspecified Status: Acute Assessment and Plan: CT scan shows significant amount of tube feeds collected in the stomach. Patient also had high residuals. Patient has already been on Reglan. Bowel sounds are present but decreased. tube feeds restarted (13) Sinus tachycardia: Code(s): R00.0 - Tachycardia, unspecified Status: Acute Assessment and Plan: Does not appear in any respiratory distress. Continue BiPAP p.r.n.. beta-brayden held due to low blood pressure (14) Dysphagia: Code(s): R13.10 - Dysphagia, unspecified Status: Acute Assessment and Plan: Patient failed his bedside swallow evaluation and a modified barium swallow study prior to re-intubation which showed aspiration of thin liquids and pudding now intubated in his OG tube tube feeding. Peg tube has been requested and pending. GI consulted (15) DVT (deep venous thrombosis): Code(s): I82.409 - Acute embolism and thrombosis of unspecified deep veins of unspecified lower extremity Status: Acute Assessment and Plan: ultrasound shows clot surrounding the PICC line in the right upper extremity PICC line working and will be left in place for now Continue Lovenox at therapeutic dose Plan DVT prophylaxis: Lovenox therapeutic dose Stress ulcer prophylaxis: Protonix Nutrition: tube feeds ordered Code Status: Full code. 03/15 Patient has no family available. Patient was extubated on 03/14 and I spoke to patient post extubation. I mentioned possibility of him needing re-intubation and he was agreeable stating that he is not ready to at this time. He stated that do whatever needs to be done to keep me alive. I also mentioned to him that if he gets reintubated and is unable to be weaned he will need tracheostomy and PEG tube placement and he states that he is agreeable to do it if needed. He did mention that he has some nephews in area which can be contacted. magnetic resonance imaging coordinator was provided that information. 03/19 I confirmed with patient again regarding his code status he is willing to get reintubated if needed and is willing to proceed with trach and PEG if needed. He wishes to be full code. 03/23 Finally patient's son arrived at bedside and I spoke to him with his and patient's ex- in the conference room. I updated them in detail about the details of patient's admission presentation and hospital course till now. He states that he has not been touch with his dad for last 10 years. He is willing to be the POA at this time. I answered all his questions and explained him the patient is currently in respiratory failure with failure to wean requiring re-intubation x2, congestive Heart Care earlier, gangrene of right foot requiring amputation, sepsis, UTI, dysphagia and he will need trach and PEG. They understand and agree with patient's wishes to proceed with trach and PEG at this time. He was hoping the patient can go to a facility close to where he lives. Critical Care Time Spent: 35 minutes Due to a high probability of clinically significant, life threatening deterioration, the patient required my highest level of preparedness to intervene emergently and I personally spent this critical care time directly and personally managing the patient. This critical care time included obtaining a history; examining the patient; pulse oximetry; ordering and review of studies; arranging urgent treatment with development of a management plan; evaluation of patient's response to treatment; frequent reassessment; and discussions with other providers. It was exclusive of separately billable procedures and treating other patients and teaching time. Please see Assessment and Plan section and the rest of the note for further information on patient assessment and treatment This dictation may have been done utilizing a voice recognition system. Attempts have been made to correct errors. However, there may be uncorrected grammatical, spelling, and recognitions errors present. Subjective Date/time seen: 03/24/24 Overnight events reviewed. Afebrile Continues to be on mechanical ventilation 30% FiO2 Continues to be sedated with Versed and fed tolerating tube feeds. Urine output on the lower side. Other Vitals acceptable Interval history: Reason for consult: Status post PEA arrest, right foot gangrene with cellulitis, shock 02/27: Intubated 03/05:Right below-knee amputation with placement of posterior Ortho Glass splint 03/14: extubated and reintubated 03/17 right-sided thoracentesis and 1 L fluid was removed 03/18: Left thoracentesis and 550 mL fluid was removed 03/19 extubated 03/22 reintubated Review of Systems Review of Systems: ROS unobtainable: Yes unobtainable due to endotracheal tube, unobtainable due to medical condition and unobtainable due to mental status Exam Narrative: General: Patient intubated sedated and in no acute distress HEENT:, pupils are equal and reactive from a sclera is clear Neck:? supple Respiratory:? Coarse breath sounds bilaterally, decreased at bases, adequate air entry, no wheezing Cardiac:? S1-S2 normal, regular rate and rhythm Abdomen:? Soft, nontender, nondistended, bowel sounds are decreased but present Extremities:? Right BKA stump under the dressing. Left dorsalis pedis is dopplerable Neuro:? Patient is wakes up on stimulation and calling his name and is nodes his head but quickly falls back to sleep, he is sedated, not following commands today. He is overall generalized weak Skin:? Patient has maceration of his perianal area, pressure ulcer on his buttocks. Psych:? Normal speech and affect Objective Data Vital Signs Vital Signs: Vital Signs - 24 hr 03/23/24 10:00 03/23/24 10:36 03/23/24 10:00 Temperature 36.9 C Pulse Rate 104 H 104 H 111 H Respiratory Rate 19 Blood Pressure 110/64 Pulse Oximetry 97 99 Oxygen Delivery Mechanical Ventilation Fraction of Inspired Oxygen 30 03/23/24 10:00 03/23/24 10:00 03/23/24 12:00 Temperature Pulse Rate 111 H 111 H 105 H Respiratory Rate 19 19 Blood Pressure Pulse Oximetry Oxygen Delivery Fraction of Inspired Oxygen 03/23/24 12:00 03/23/24 12:00 03/23/24 12:00 Temperature 37.1 C Pulse Rate 105 H 105 H Respiratory Rate 18 18 Blood Pressure 109/55 L Pulse Oximetry 97 Oxygen Delivery Fraction of Inspired Oxygen 30 03/23/24 12:00 03/23/24 12:00 03/23/24 13:51 Temperature Pulse Rate 105 H 101 H Respiratory Rate 18 Blood Pressure Pulse Oximetry 97 99 Oxygen Delivery Mechanical Ventilation Mechanical Ventilation Fraction of Inspired Oxygen 30 30 03/23/24 13:52 03/23/24 13:58 03/23/24 14:00 Temperature Pulse Rate 101 H 101 H 107 H Respiratory Rate 17 19 Blood Pressure Pulse Oximetry Oxygen Delivery Fraction of Inspired Oxygen 03/23/24 14:00 03/23/24 14:00 03/23/24 14:00 Temperature 37.1 C Pulse Rate 109 H 109 H 109 H Respiratory Rate 20 20 20 Blood Pressure 97/57 L Pulse Oximetry 100 Oxygen Delivery Fraction of Inspired Oxygen 03/23/24 15:04 03/23/24 16:00 03/23/24 16:00 Temperature 37.2 C Pulse Rate 111 H 105 H 105 H Respiratory Rate 20 17 17 Blood Pressure 109/62 Pulse Oximetry 100 Oxygen Delivery Fraction of Inspired Oxygen 03/23/24 16:00 03/23/24 16:00 03/23/24 16:50 Temperature Pulse Rate 105 H 105 H Respiratory Rate 17 Blood Pressure Pulse Oximetry 100 Oxygen Delivery Mechanical Ventilation Fraction of Inspired Oxygen 30 30 03/23/24 16:00 03/23/24 16:00 03/23/24 18:00 Temperature 37.3 C Pulse Rate 104 H 105 H Respiratory Rate 18 Blood Pressure 93/53 L Pulse Oximetry 100 100 Oxygen Delivery Mechanical Ventilation Fraction of Inspired Oxygen 30 03/23/24 18:00 03/23/24 18:00 03/23/24 18:00 Temperature Pulse Rate 105 H 105 H 105 H Respiratory Rate 20 17 Blood Pressure Pulse Oximetry Oxygen Delivery Fraction of Inspired Oxygen 03/23/24 20:00 03/23/24 20:00 03/23/24 20:00 Temperature Pulse Rate 105 H 105 H 106 H Respiratory Rate 19 19 Blood Pressure Pulse Oximetry Oxygen Delivery Fraction of Inspired Oxygen 03/23/24 20:00 03/23/24 20:00 03/23/24 20:08 Temperature 37.3 C Pulse Rate 105 H 105 H Respiratory Rate 19 Blood Pressure 93/57 L Pulse Oximetry 100 100 Oxygen Delivery Mechanical Ventilation Fraction of Inspired Oxygen 30 30 03/23/24 20:14 03/23/24 20:23 03/23/24 20:00 Temperature Pulse Rate 106 H 105 H Respiratory Rate 18 18 Blood Pressure Pulse Oximetry 100 Oxygen Delivery Mechanical Ventilation Fraction of Inspired Oxygen 30 03/23/24 22:00 03/23/24 22:00 03/23/24 22:00 Temperature 37.4 C Pulse Rate 107 H 107 H 107 H Respiratory Rate 18 18 Blood Pressure 92/56 L Pulse Oximetry 100 Oxygen Delivery Fraction of Inspired Oxygen 03/23/24 22:00 03/24/24 00:00 03/24/24 00:00 Temperature Pulse Rate 107 H 104 H 104 H Respiratory Rate 18 17 17 Blood Pressure Pulse Oximetry Oxygen Delivery Fraction of Inspired Oxygen 03/24/24 00:20 03/24/24 00:00 03/24/24 00:00 Temperature 37.5 C Pulse Rate 112 H 104 H Respiratory Rate 17 Blood Pressure 100/68 Pulse Oximetry 100 100 100 Oxygen Delivery Mechanical Ventilation Mechanical Ventilation Fraction of Inspired Oxygen 30 30 03/24/24 00:00 03/24/24 00:00 03/24/24 01:54 Temperature Pulse Rate 104 H 106 H Respiratory Rate Blood Pressure Pulse Oximetry 100 Oxygen Delivery Mechanical Ventilation Fraction of Inspired Oxygen 30 30 03/24/24 01:58 03/24/24 02:00 03/24/24 02:00 Temperature 37.6 C Pulse Rate 103 H 107 H 107 H Respiratory Rate 19 22 H Blood Pressure 97/61 L Pulse Oximetry 100 Oxygen Delivery Fraction of Inspired Oxygen 03/24/24 02:05 03/24/24 02:48 03/24/24 02:48 Temperature Pulse Rate 104 H 104 H 104 H Respiratory Rate 18 16 16 Blood Pressure Pulse Oximetry Oxygen Delivery Fraction of Inspired Oxygen 03/24/24 02:00 03/24/24 03:38 03/24/24 03:38 Temperature Pulse Rate 107 H 105 H 105 H Respiratory Rate 22 H 16 16 Blood Pressure Pulse Oximetry Oxygen Delivery Fraction of Inspired Oxygen 03/24/24 04:00 03/24/24 04:00 03/24/24 04:00 Temperature Pulse Rate 106 H 106 H 106 H Respiratory Rate 18 18 Blood Pressure Pulse Oximetry Oxygen Delivery Fraction of Inspired Oxygen 03/24/24 05:15 03/24/24 04:00 03/24/24 04:00 Temperature Pulse Rate 102 H Respiratory Rate Blood Pressure Pulse Oximetry 99 100 Oxygen Delivery Mechanical Ventilation Mechanical Ventilation Fraction of Inspired Oxygen 30 30 30 03/24/24 04:00 03/24/24 06:00 03/24/24 06:00 Temperature 37.6 C Pulse Rate 106 H 104 H 100 Respiratory Rate 17 16 16 Blood Pressure 101/58 L Pulse Oximetry 100 Oxygen Delivery Fraction of Inspired Oxygen 03/24/24 06:00 03/24/24 06:00 03/24/24 07:45 Temperature 37.6 C H Pulse Rate 104 H 104 H 102 H Respiratory Rate 16 Blood Pressure 97/56 L Pulse Oximetry 100 97 Oxygen Delivery Mechanical Ventilation Fraction of Inspired Oxygen 30 03/24/24 07:45 03/24/24 08:08 03/24/24 08:00 Temperature 37.4 C Pulse Rate 102 H 105 H 100 Respiratory Rate 16 16 17 Blood Pressure 95/58 L Pulse Oximetry 97 Oxygen Delivery Fraction of Inspired Oxygen 03/24/24 08:00 03/24/24 08:00 Temperature Pulse Rate 105 H Respiratory Rate Blood Pressure Pulse Oximetry Oxygen Delivery Fraction of Inspired Oxygen 30 Intake/Output Intake/Output: Intake & Output 03/21/24 03/22/24 03/23/24 03/24/24 23:59 23:59 23:59 23:59 Intake Total 230 239.6 1884.3 1286.0 Output Total 700 625 775 525 Balance -470 -385.4 1109.3 761.0 Meds/Results Medications: Active Medications Generic Name Dose Route Start Last Admin Trade Name Freq PRN Reason Stop Dose Admin Acetaminophen 500 mg 03/08/24 10:18 03/13/24 09:24 Acetaminophen 500 Mg Tablet FEED TUBE 500 mg Q6H PRN Administration Pain Rated 1-3 Albuterol/Ipratropium 3 ml 02/29/24 02:00 03/24/24 07:45 Ipratropium 0.5 Mg/Albuterol Sulfate 2.5 Mg Ampul.Neb 3 Ml INHALATION 3 ml Q6HRT JASON Administration Alteplase, Recombinant 2 mg 03/06/24 09:45 03/22/24 16:56 Alteplase 2 Mg Vial (Cathflo) IV PUSH 2 mg ONCE PRN Administration Line Occlusion Aspirin 81 mg 03/09/24 08:00 03/24/24 08:09 Aspirin 81 Mg Chewable Tablet FEED TUBE 81 mg DAILY@0800 [facility] Administration Bisacodyl 10 mg 03/24/24 07:31 Bisacodyl 10 Mg Suppository RECTAL QAM PRN Constipation Cefazolin Sodium 1 gm 11/11/24 12:30 Cefazolin Sodium 1 Gm Vial IM 03/24/24 12:31 ONCE ONE Dextrose 12.5 gm 02/28/24 19:23 Dextrose 50% 25 Gm/50 Ml Syringe IV PUSH PRN PRN Hypoglycemia Protocol Enoxaparin Sodium 90 mg 03/23/24 07:45 03/24/24 08:09 Enoxaparin 100 Mg/Ml Syringe SUB-Q 90 mg Q12HR JASON Administration Glucagon 1 mg 02/28/24 19:23 Glucagon For Inj 1 Mg Vial IM PRN PRN Hypoglycemia Protocol Glucose 15 gm 03/08/24 10:19 Glucose Oral Gel 15 Gm Of Glucse In 37.5 Gm Tube FEED TUBE PRN PRN Hypoglycemia Protocol Dextrose 1,000 mls @ 100 mls/hr 02/28/24 19:23 Dextrose 5% 1,000 Ml IVPB PRN PRN Hypoglycemia Protocol Fentanyl Citrate 2,500 mcg in 250 mls @ 7.5 mls/hr 03/22/24 12:15 03/24/24 06:00 Fentanyl 2,500 Mcg/Ns 250 Ml IV CONT 75 mcg/hr .[id number] JASON 7.5 mls/hr Titration Protocol 75 MCG/HR Midazolam HCl 100 mg in 100 mls @ 2 mls/hr 03/22/24 12:15 03/24/24 06:00 Versed 100 Mg/Ns 100 Ml IV CONT 2 mg/hr .Q50H JASON 2 mls/hr Titration Protocol 2 MG/HR Insulin Aspart 3 - 6 units 03/15/24 17:00 03/24/24 08:05 Insulin Aspart (*Bkc) 100 Units/Ml SUB-Q Not Given Q4HR [facility] Protocol Insulin Glargine 55 units 03/15/24 09:00 03/16/24 10:44 Insulin Glargine (*Bkc) 100 Units/Ml SUB-Q 55 units DAILY JASON Administration Labetalol HCl 20 mg 03/08/24 10:06 03/08/24 16:48 Labetalol Hcl Inj 100 Mg/20 Ml Vial IV PUSH 20 mg Q4H PRN Administration SBP > 160 and HR> 60 -1st choice Morphine Sulfate 2 mg 03/19/24 19:39 03/21/24 20:36 Morphine Sulfate (*Crx) 2 Mg/Ml Inj IV PUSH 2 mg Q2HR PRN Administration Pain Rated 7-10 Multi-Ingred Cream/Lotion/Oil/Oint 1 applic 03/22/24 21:00 03/24/24 08:09 Mineral Oil/White Petrolatum Ointment EACH EYE 1 applic Q12HR JASON Administration Pantoprazole Sodium 40 mg 03/02/24 09:00 03/24/24 08:09 Pantoprazole Sodium Iv 40 Mg Vial IV PUSH 40 mg Q12HR JASON Administration Polyethylene Glycol 17 gm 03/24/24 09:00 03/24/24 08:09 Polyethylene Glycol 3350 17 Gm Powd.Pack PO 17 gm QAM JASON Administration Sodium Chloride 10 ml 02/29/24 06:00 03/24/24 06:08 Central Line Flush IV PUSH 10 ml Q8HR JASON Administration Sodium Chloride 20 ml 02/28/24 23:37 Central Line Flush IV PUSH PRN PRN after blood draws Sodium Chloride 20 ml 03/21/24 08:57 Central Line Flush IV PUSH PRN PRN after blood draws Sodium Chloride 10 ml 03/21/24 08:57 Central Line Flush IV PUSH PRN PRN with TPN bag changes Sodium Chloride 10 ml 03/21/24 14:00 03/24/24 06:08 Central Line Flush IV PUSH 10 ml Q8HR JASON Administration Radiology Results: ITS Impressions Lower Extremity CTA 02/28/24 14:54 IMPRESSION: 1. 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 2. Moderate stenosis of right popliteal artery. 3. Osteomyelitis involving first proximal and distal phalanges and head of first metatarsal. Head CT 02/29/24 05:55 Impression: No intracranial hemorrhage, mass, or acute infarct. Stable chronic encephalomalacia in the high left parietal lobe. Atrophy and chronic white matter changes, as above. Chest/Abdomen/Pelvis CTA 02/29/24 06:02 Impression: Extensive right upper lobe consolidation and more mild right middle lobe consolidation, consistent with pneumonia. Consider aspiration pneumonia. Moderate to large right pleural effusion with complete atelectasis of the right lower lobe. Moderate left pleural effusion with minimal left basilar atelectasis. Small pericardial effusion. No definite acute abnormality in the abdomen or pelvis. Chronic compression fractures, as above. Renal Ultrasound 03/03/24 15:45 IMPRESSION: 1. Normal kidneys without hydronephrosis. 2. Small amount of ascites in the abdomen and pelvis. Abdomen Ultrasound 03/13/24 16:52 IMPRESSION: 1. No etiology for abnormal liver function tests. 2. Normal hepatic veins and main portal vein. Right and left portal veins and proper hepatic artery not evaluated. 3. Right pleural effusion. Vascular Ultrasound 03/13/24 16:52 IMPRESSION: 1. No etiology for abnormal liver function tests. 2. Normal hepatic veins and main portal vein. Right and left portal veins and proper hepatic artery not evaluated. 3. Right pleural effusion. Chest/Abdomen/Pelvis CT 03/16/24 21:51 IMPRESSION: Anasarca Large pleural effusions with prominent compressive atelectasis of the lower lobes especially, dependent atelectasis of the middle and upper lobes Heart size. Prominent coronary artery atherosclerotic calcifications Minimal pericardial effusion Prominent diffuse thickening of urinary bladder wall suggesting cystitis area Ha catheter in bladder lumen Very prominent amount of fluid and large fluid level within the stomach despite presence of NG tube T11 and L1 moderate anterior wedge compression fractures, likely chronic Thoracentesis Ultrasound 03/18/24 10:27 IMPRESSION: 1. Successful ultrasound-guided thoracentesis yielding 550 mL of doris-colored fluid. Modified Barium Swallow 03/21/24 15:25 IMPRESSION: 1. Aspiration of thin liquids and pudding. 2. Please refer to the speech therapy report for recommendations. Tube Placement 03/22/24 11:33 IMPRESSION: 1. Fluoroscopy guided nasoenteric tube placement with tip in the stomach. Abdomen X-Ray 03/22/24 12:47 IMPRESSION: 1. Nasogastric tube tip in the stomach. 2. Nasoenteric tube tip in the stomach. Venous Doppler Study 03/22/24 16:38 IMPRESSION: Nonocclusive right subclavian vein thrombus. No additional deep venous thrombosis detected in the remaining bilateral upper extremity veins. Chest X-Ray 03/24/24 06:33 Impression: Bilateral pleural effusions with mild to moderate pulmonary edema pattern, as above. Support tubes, as above. Labs Labs: Laboratory Results - last 24 hr 03/23/24 03/23/24 03/23/24 11:36 16:11 20:48 WBC RBC Hgb Hct MCV MCH MCHC RDW Plt Count MPV Puncture Site ABG pH ABG pCO2 ABG pO2 ABG PO2/FiO2 Ratio ABG HCO3 ABG O2 Saturation ABG O2 Content ABG Base Excess A-a Gradient Oxyhemoglobin Carboxyhemoglobin Methemoglobin Reduced Hemoglobin Total Hemoglobin O2 Delivery Device O2 Liters/Min Minute Volume Vent Rate Vent Mode FiO2 Tidal Volume PEEP Peak Inspir Pressure Pressure Support Sodium Potassium Chloride Carbon Dioxide Anion Gap BUN Creatinine Estim Creat Clear Calc Estimated GFR Glucose POC Capillary Glucose 167 H 158 H 157 H Calcium Magnesium Total Bilirubin AST ALT Alkaline Phosphatase Total Protein Albumin 03/24/24 03/24/24 03/24/24 01:05 04:43 05:14 WBC 8.1 RBC 2.82 L Hgb 7.7 L Hct 27.7 L MCV 98.2 MCH 27.3 MCHC 27.8 L RDW 19.2 H Plt Count 216 MPV 9.6 Puncture Site Right brachial ABG pH 7.435 ABG pCO2 42.9 ABG pO2 86.4 ABG PO2/FiO2 Ratio 2.88 ABG HCO3 28.2 H ABG O2 Saturation 96.8 ABG O2 Content 11.6 L ABG Base Excess 3.6 A-a Gradient 77.1 Oxyhemoglobin 95.8 Carboxyhemoglobin 1.2 Methemoglobin 0.3 Reduced Hemoglobin 2.7 Total Hemoglobin 8.5 L O2 Delivery Device Ventilator O2 Liters/Min Not Reportable Minute Volume Not Reportable Vent Rate 16 Vent Mode Cmv FiO2 30 Tidal Volume 380 PEEP 8 Peak Inspir Pressure Not Reportable Pressure Support Not Reportable Sodium 146 H Potassium 3.9 Chloride 114 H Carbon Dioxide 30 Anion Gap 2 L BUN 20 Creatinine 0.80 Estim Creat Clear Calc 79 Estimated GFR > 60 Glucose 173 H POC Capillary Glucose 172 H Calcium 7.7 L Magnesium 2.2 Total Bilirubin 0.6 AST 26 ALT 28 Alkaline Phosphatase 129 H Total Protein 6.0 L Albumin 2.5 L 03/24/24 08:05 WBC RBC Hgb Hct MCV MCH MCHC RDW Plt Count MPV Puncture Site ABG pH ABG pCO2 ABG pO2 ABG PO2/FiO2 Ratio ABG HCO3 ABG O2 Saturation ABG O2 Content ABG Base Excess A-a Gradient Oxyhemoglobin Carboxyhemoglobin Methemoglobin Reduced Hemoglobin Total Hemoglobin O2 Delivery Device O2 Liters/Min Minute Volume Vent Rate Vent Mode FiO2 Tidal Volume PEEP Peak Inspir Pressure Pressure Support Sodium Potassium Chloride Carbon Dioxide Anion Gap BUN Creatinine Estim Creat Clear Calc Estimated GFR Glucose POC Capillary Glucose 182 H Calcium Magnesium Total Bilirubin AST ALT Alkaline Phosphatase Total Protein Albumin Quality VTE Prophylaxis VTE prophylaxis: pharmacologic ordered
--- NOTE | 2024-03-24 10:25 | PCFNICU ---
ICU Rounding Note: Pt current nutrition is Vital AF 1.2 @ 50 ml/h providing 1375 kcal, 83 g protein, 892 kcal. Eventual goal is Vital 1.2 AF @ goal rate 60 ml/g to better meet protein energy needs. Nutrition recommendation: Advanced TF from 40 ml/h to 50 ml/h with eventual goal of 60 ml/h. May add protein modular when pt is at 60 ml/h because of recent R BKA. Last recorded weight is 93.2 kg. Bowel Motility: 0 BMs, last BM recorded 03/19. On bowel regimen Labs Reviewe d: Hgb 7.7, Hct 27.7, Al b 2.5, Na 146, Glu 173 Meds Noted: Fentanyl, versed. No pressors. Novolog, Lantus, Dulcolax, miralax. Skin: R BKA Additional Notes: Reintubated 03/22/24. Reportedly pt will need trach and PEG. Tolerating tube feeds now. Previous ileus so advancement of tube feeding to goal is slowly proceeding. Discussed with RN. Following daily in ICU rounds. Will monitor weight, labs, skin, tube feedings, meds, every Sunday and Sunday. .
[2024-03-24] MEDS: ceFAZolin SODIUM 1 GM VIAL IM (12:52)
[2024-03-24 13:05] LABS: Glucose Point of Care 144 mg/dl (65-105)
[2024-03-24] MEDS: MIDAZOLAM HCL (*CRX) 2 MG/2 ML VIAL 4 MG IV PUSH (13:07)
[2024-03-24] MEDS: LIDOCAINE HCL 1% LOCAL INJ 20 ML VIAL INFILTRATE (13:10)
--- NOTE | 2024-03-24 13:53 | SUR.OPER ---
Image Scientist and REFORESTATION WORKER Nancy maintaining and monitoring pt's sedation during the procedure.
--- NOTE | 2024-03-24 15:35 | P.PNIM_ITS ---
Progress Note: A&P Assessment and Plan (1) Acute respiratory failure with hypoxia: Code(s): J96.01 - Acute respiratory failure with hypoxia Status: Acute Assessment and Plan: Acute respiratory failure likely related to cardiac arrest, aspiration pneumonia, NSTEMI, hypoxia, septic shock Worsening likely secondary to ARDS versus pulmonary edema Intubated 02/27 02/28 Chest CTA: Extensive right upper lobe consolidation and more mild right middle lobe consolidation, consistent with pneumonia. Consider aspiration pneumonia.Moderate to large right pleural effusion with complete atelectasis of the right lower lobe. Moderate left pleural effusion with minimal left basilar atelectasis. Small pericardial effusion. No definite acute abnormality in the abdomen or pelvis. Chronic compression fractures, as above . -03/07 right thoracentesis with 1 L fluid removed -03/08 left-sided thoracentesis 550 mL -03/11: patient was in pressure support ventilation 02/18, with decrease tidal volumes in the upper 200s. place patient back on CMV, I have asked the bedside RN to decrease the Precedex infusion once patient is more awake will place back on spontaneous breathing trials 03/12: Place patient on SBT 04/17, low tidal volumes, low respiratory rate. Patient had replaced back on CMV mode of ventilation. -even on ASV patient is breathing only 7-8 times a minute 03/13: Off Precedex infusion overnight, placed patient on pressure support ventilation 04/17, initially did well but not significantly tachycardic and tachypneic and in respiratory distress, patient was placed back on CMV mode of ventilation and low-dose was 03/14 8/5 PSV SBT done for more than 1 hour. RSBI, ABG and Vitals acceptable. Pt awake and following commands. Patient was extubated. Initially patient did well and was on nasal cannula and was able to communicate. Over 12 hours patient became more hypoxic with increased respiratory distress and tachypnea. I spoke to patient post extubation and was agreeable to re-intubation if needed and stated that 'he is not ready to ' and 'do what ever it takes'. He was re intubated at night. I also mentioned to him that he may need tracheostomy and PEG tube placement if he gets we intubated and is not weanable. He told me 'to proceed with it if needed'. Solu-Medrol IV given for airway edema and will be continued for 24 hours -completed course of Solu-Medrol -continue bronchodilators -CT scan shows large pleural effusions bilaterally. I will request IR for thoracentesis.. Patient is on minimal ventilator setting but has failed trials initially multiple times and then once extubated he was reintubated within 12 hours. I will treat try again after thoracentesis to see patient is weanable from the vent otherwise will proceed with trach and PEG as patient has been on ventilator for more than 2 weeks. 03/17 right thoracentesis 1 L fluid was removed 03/18 left thoracentesis 550 mL fluid was removed Will also continue diuretics. 03/19 patient was extubated after weaning trial 03/20 continue nasal cannula, BiPAP p.r.n., hold diuretics, incentive spirometry, spoke to patient after extubation yesterday he is willing to be intubated if needed and proceed with trach and PEG if needed hopefully we can avoid that situation 03/21 patient continues to require BiPAP intermittently and tolerates nasal cannula. He appears quite weak although he does have borderline cough. Cont inue incentive spirometry. P.r.n. BiPAP. BiPAP at night. Nasal cannula as tolerated. Patient remains at risk of requiring intubation. I spoke to patient again and mention that to him and he verbalized understanding by noting his head. I will check chest x-ray. Continue ICU monitoring 03/22 discussed with the patient emphasized importance of using BiPAP for increased work of breathing and at night due to his deconditioning and weakness. He is currently saturating on nasal cannula and appears not in any respiratory distress. later patient deteriorated and required re-intubation 03/23 ABG and chest x-ray. patient has failed extubation twice and has been on ventilator for close to 20 days. Patient is awaiting trach now . ENT consulted 03/24 ABG and chest x-ray reviewed. Continue mechanical ventilation. May have to transfer to another hospital for tracheostomy if ENT coverage is not available here. (2) Elevated LFTs: Code(s): R79.89 - Other specified abnormal findings of blood chemistry Status: Acute Assessment and Plan: 03/13: Significant elevation in LFTs, AST 2280, ALT 988, alk-phos 722 -patient has been hemodynamically stable, no hypotension noted in the last 24-48 hours -statin discontinued. Hold Tylenol -no tenderness in the right upper, lower quadrant or epigastric region on exam -negative vital hepatitis panel, right upper quadrant ultrasound with Doppler negative for hepatic or portal vein thrombosis -patient evaluated by GI -levels improving. Monitor (3) Cardiac arrest with pulseless electrical activity: Code(s): I46.9 - Cardiac arrest, cause unspecified Status: Acute Assessment and Plan: Cardiac arrest, secondary to unknown etiology. Possible aspiration pneumonia, NSTEMI, hypoxia, septic shock, infection -see code blue sheet for the details -patient currently intubated, vasopressors for blood pressure support have been weaned off -appreciate cardiology following the patient 02/29/2024 echocardiogram Summary 1. Technically difficult study with limited views. 2. Left ventricular chamber dimension is normal. 3. Left ventricular systolic function is mildly reduced, estimated at 45-50%. The apex appears to be hypokinetic. 4. There is mildly increased left ventricular wall thickness. 5. The left ventricular diastolic function is grade I diastolic dysfunction. 6. Right ventricular systolic function is normal. 7. Left atrial chamber dimension is moderately enlarged. 8. There is mild to moderate tricuspid valve regurgitation. 9. There is small anterior pericardial effusion. (4) Septic shock: Code(s): A41.9 - Sepsis, unspecified organism; R65.21 - Severe sepsis with septic shock Status: Acute Assessment and Plan: Resolved Patient in shock, likely related to the gangrene, aspiration pneumonia, status post cardiac arrest 02/28/2024: Blood cultures have been obtained and negative Off vasopressors and IV fluids Status post 10 days of antibiotics 03/16 low-grade fever increase in WBC CT scan as above, repeat blood cultures and sputum pending UA suggestive of UTI. Urine cultures pending. Ha has been changed. Completed course of cefepime (5) NSTEMI (non-ST elevated myocardial infarction): Code(s): I21.4 - Non-ST elevation (NSTEMI) myocardial infarction Status: Acute Assessment and Plan: -appreciate cardiology evaluation and recommendation -Continue aspirin and high-dose a statin -will hold Brilinta. Resumption per General surgery - beta-brayden, losartan are on hold due to soft blood pressure. Will resume beta-brayden -03/02 heparin infusion was discontinued after 48 hours for NSTEMI by cardiology (6) Gangrene of right foot: Code(s): I96 - Gangrene, not elsewhere classified Status: Acute Assessment and Plan: CTA showed peripheral arterial disease with total occlusion of the right anterior and posterior tibial arteries and right peroneal artery with distal reconstitution of peroneal artery. This extensive gangrene of the right foot with gas seen on CT of the foot. General surgery spoke to the patient in the ER on the day of admission on 02/27 patient at that time agreed for below-knee amputation. Plan was to do a below- knee amputation on 02/29/2024 but patient had a cardiac arrest that night secondary to sepsis. Surgery at that time was deferred. Patient now is intubated sedated and unable to sign his consent.. Patient has no family and for many years at the [facility] has had no visitor. He has 1 son which no one has been able to get hold off right several attempts. Considering patient has gangrene of the foot with no vascular supply leading to sepsis and if untreatable lead to his , Dr. Johns will proceed with amputation today, 03/05/2024. Dr. Collins and Dr. Johns has signed 2 physician consent considering patient's clearly expressed wishes prior to cardiac arrest at the time of admission, his current situation and inability to sign the consent form by himself at this time. 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 -complete 5 days of clindamycin 03/13: Discussed with surgery, there is flexion contractures of his amputation which may hinder in him getting prosthetics, patient may require above knee amputation (7) Osteomyelitis of toe of right foot: Code(s): M86.9 - Osteomyelitis, unspecified Status: Chronic Assessment and Plan: As above (8) Peripheral vascular disease: Code(s): I73.9 - Peripheral vascular disease, unspecified Status: Chronic Assessment and Plan: Patient has history of peripheral vascular disease, coronary artery disease -started on aspirin, patient will require Brilinta since he had a STEMI in 2020 but currently holding Brilinta due to surgery and bleeding (9) Type 2 diabetes mellitus: Qualifiers: 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 complication status: with other specified complication 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 longterm insulin use: with buttermaker helper use Qualified Code(s): E11.69 - Type 2 diabetes mellitus with other specified complication; Z79.4 - alf (current) use of insulin Code(s): E11.9 - Type 2 diabetes mellitus without complications Status: Acute Assessment and Plan: Currently on sliding scale insulin, Accu-Cheks Hemoglobin A1c this admission is 8.2 (10) Chronic obstructive pulmonary disease: Code(s): J44.9 - Chronic obstructive pulmonary disease, unspecified Status: Chronic Assessment and Plan: Continue DuoNebs -continue Symbicort (11) Electrolyte abnormality: Code(s): E87.8 - Other disorders of electrolyte and fluid balance, not elsewhere classified Status: Acute Assessment and Plan: Hypernatremia, hold diuretics. continue free water flush. Sodium improving (12) Ileus: Code(s): K56.7 - Ileus, unspecified Status: Acute Assessment and Plan: CT scan shows significant amount of tube feeds collected in the stomach. Patient also had high residuals. Patient has already been on Reglan. Bowel sounds are present but decreased. tube feeds restarted (13) Sinus tachycardia: Code(s): R00.0 - Tachycardia, unspecified Status: Acute Assessment and Plan: Does not appear in any respiratory distress. Continue BiPAP p.r.n.. beta-brayden held due to low blood pressure (14) Dysphagia: Code(s): R13.10 - Dysphagia, unspecified Status: Acute Assessment and Plan: Patient failed his bedside swallow evaluation and a modified barium swallow study prior to re-intubation which showed aspiration of thin liquids and pudding now intubated in his OG tube tube feeding. Peg tube has been requested and pending. GI consulted (15) DVT (deep venous thrombosis): Code(s): I82.409 - Acute embolism and thrombosis of unspecified deep veins of unspecified lower extremity Status: Acute Assessment and Plan: ultrasound shows clot surrounding the PICC line in the right upper extremity PICC line working and will be left in place for now Continue Lovenox at therapeutic dose Plan DVT prophylaxis: Lovenox therapeutic dose Stress ulcer prophylaxis: Protonix Nutrition: tube feeds ordered Code Status: Full code. Subjective Date/time seen: 03/24/24 15:35 Interval history: On mechanical ventilation, sedated with Versed and fentanyl. Peg tube and trach for long-term. Poor prognosis. Review of Systems Review of Systems: 12 systems were reviewed and are negativ e except for as per HPI. All systems reviewed & are unremarkable except as noted in HPI and below (HPI) ROS unobtainable: Yes unobtainable due to endotracheal tube, unobtainable due to medical condition and unobtainable due to mental status Exam Narrative: General: Patient intubated sedated and in no acute distress HEENT:, pupils are equal and reactive from a sclera is clear Neck:? supple Respiratory:? Coarse breath sounds bilaterally, decreased at bases, adequate air entry, no wheezing Cardiac:? S1-S2 normal, regular rate and rhythm Abdomen:? Soft, nontender, nondistended, bowel sounds are decreased but present Extremities:? Right BKA stump under the dressing. Left dorsalis pedis is dopplerable Neuro:? Patient is wakes up on stimulation and calling his name and is nodes his head but quickly falls back to sleep, he is sedated, not following commands today. He is overall generalized weak Skin:? Patient has maceration of his perianal area, pressure ulcer on his buttocks. Psych:? Normal speech and affect Objective Data Vital Signs Vital Signs: Vital Signs - 24 hr 03/23/24 16:00 03/23/24 16:00 03/23/24 16:00 Temperature 98.9 F Pulse Rate 105 H 105 H 105 H Respiratory Rate 17 17 17 Blood Pressure 109/62 Pulse Oximetry 100 Oxygen Delivery Fraction of Inspired Oxygen 03/23/24 16:00 03/23/24 16:50 03/23/24 16:00 Temperature Pulse Rate 105 H Respiratory Rate Blood Pressure Pulse Oximetry 100 100 Oxygen Delivery Mechanical Ventilation Mechanical Ventilation Fraction of Inspired Oxygen 30 30 30 03/23/24 16:00 03/23/24 18:00 03/23/24 18:00 Temperature 99.1 F Pulse Rate 104 H 105 H 105 H Respiratory Rate 18 Blood Pressure 93/53 L Pulse Oximetry 100 Oxygen Delivery Fraction of Inspired Oxygen 03/23/24 18:00 03/23/24 18:00 03/23/24 20:00 Temperature Pulse Rate 105 H 105 H 105 H Respiratory Rate 20 17 19 Blood Pressure Pulse Oximetry Oxygen Delivery Fraction of Inspired Oxygen 03/23/24 20:00 03/23/24 20:00 03/23/24 20:00 Temperature 99.1 F Pulse Rate 105 H 106 H 105 H Respiratory Rate 19 19 Blood Pressure 93/57 L Pulse Oximetry 100 Oxygen Delivery Fraction of Inspired Oxygen 03/23/24 20:00 03/23/24 20:08 03/23/24 20:14 Temperature Pulse Rate 105 H 106 H Respiratory Rate 18 Blood Pressure Pulse Oximetry 100 Oxygen Delivery Mechanical Ventilation Fraction of Inspired Oxygen 30 30 03/23/24 20:23 03/23/24 20:00 03/23/24 22:00 Temperature Pulse Rate 105 H 107 H Respiratory Rate 18 Blood Pressure Pulse Oximetry 100 Oxygen Delivery Mechanical Ventilation Fraction of Inspired Oxygen 30 03/23/24 22:00 03/23/24 22:00 03/23/24 22:00 Temperature 99.4 F Pulse Rate 107 H 107 H 107 H Respiratory Rate 18 18 18 Blood Pressure 92/56 L Pulse Oximetry 100 Oxygen Delivery Fraction of Inspired Oxygen 03/24/24 00:00 03/24/24 00:00 03/24/24 00:20 Temperature Pulse Rate 104 H 104 H 112 H Respiratory Rate 17 17 Blood Pressure Pulse Oximetry 100 Oxygen Delivery Mechanical Ventilation Fraction of Inspired Oxygen 30 03/24/24 00:00 03/24/24 00:00 03/24/24 00:00 Temperature 99.5 F Pulse Rate 104 H 104 H Respiratory Rate 17 Blood Pressure 100/68 Pulse Oximetry 100 100 Oxygen Delivery Mechanical Ventilation Fraction of Inspired Oxygen 30 03/24/24 00:00 03/24/24 01:54 03/24/24 01:58 Temperature Pulse Rate 106 H 103 H Respiratory Rate 19 Blood Pressure Pulse Oximetry 100 Oxygen Delivery Mechanical Ventilation Fraction of Inspired Oxygen 30 30 03/24/24 02:00 03/24/24 02:00 03/24/24 02:05 Temperature 99.6 F Pulse Rate 107 H 107 H 104 H Respiratory Rate 22 H 18 Blood Pressure 97/61 L Pulse Oximetry 100 Oxygen Delivery Fraction of Inspired Oxygen 03/24/24 02:48 03/24/24 02:48 03/24/24 02:00 Temperature Pulse Rate 104 H 104 H 107 H Respiratory Rate 16 16 22 H Blood Pressure Pulse Oximetry Oxygen Delivery Fraction of Inspired Oxygen 03/24/24 03:38 03/24/24 03:38 03/24/24 04:00 Temperature Pulse Rate 105 H 105 H 106 H Respiratory Rate 16 16 18 Blood Pressure Pulse Oximetry Oxygen Delivery Fraction of Inspired Oxygen 03/24/24 04:00 03/24/24 04:00 03/24/24 05:15 Temperature Pulse Rate 106 H 106 H 102 H Respiratory Rate 18 Blood Pressure Pulse Oximetry 99 Oxygen Delivery Mechanical Ventilation Fraction of Inspired Oxygen 30 03/24/24 04:00 03/24/24 04:00 03/24/24 04:00 Temperature 99.6 F Pulse Rate 106 H Respiratory Rate 17 Blood Pressure 101/58 L Pulse Oximetry 100 100 Oxygen Delivery Mechanical Ventilation Fraction of Inspired Oxygen 30 30 03/24/24 06:00 03/24/24 06:00 03/24/24 06:00 Temperature Pulse Rate 104 H 100 104 H Respiratory Rate 16 16 Blood Pressure Pulse Oximetry Oxygen Delivery Fraction of Inspired Oxygen 03/24/24 06:00 03/24/24 07:45 03/24/24 07:45 Temperature 99.7 F H Pulse Rate 104 H 102 H 102 H Respiratory Rate 16 16 Blood Pressure 97/56 L Pulse Oximetry 100 97 Oxygen Delivery Mechanical Ventilation Fraction of Inspired Oxygen 30 03/24/24 08:08 03/24/24 08:00 03/24/24 08:00 Temperature 99.3 F Pulse Rate 105 H 100 Respiratory Rate 16 17 Blood Pressure 95/58 L Pulse Oximetry 97 Oxygen Delivery Fraction of Inspired Oxygen 30 03/24/24 08:00 03/24/24 08:00 03/24/24 10:58 Temperature Pulse Rate 105 H 100 Respiratory Rate Blood Pressure Pulse Oximetry 97 98 Oxygen Delivery Mechanical Ventilation Mechanical Ventilation Fraction of Inspired Oxygen 30 30 03/24/24 10:00 03/24/24 10:00 03/24/24 12:49 Temperature 99 F 99 F Pulse Rate 97 100 97 Respiratory Rate 15 15 Blood Pressure 97/58 L 103/57 L Pulse Oximetry 97 98 Oxygen Delivery Mechanical Ventilation Fraction of Inspired Oxygen 03/24/24 12:00 03/24/24 08:00 03/24/24 10:00 Temperature 99 F Pulse Rate 98 100 100 Respiratory Rate 15 17 15 Blood Pressure 103/57 L Pulse Oximetry 98 Oxygen Delivery Fraction of Inspired Oxygen 03/24/24 12:00 03/24/24 08:00 03/24/24 10:00 Temperature Pulse Rate 98 100 100 Respiratory Rate 15 17 15 Blood Pressure Pulse Oximetry Oxygen Delivery Fraction of Inspired Oxygen 03/24/24 12:00 03/24/24 13:47 03/24/24 13:47 Temperature Pulse Rate 98 96 96 Respiratory Rate 15 19 Blood Pressure Pulse Oximetry 97 Oxygen Delivery Mechanical Ventilation Fraction of Inspired Oxygen 30 03/24/24 12:00 03/24/24 12:00 03/24/24 12:00 Temperature Pulse Rate 98 96 Respiratory Rate 19 Blood Pressure Pulse Oximetry 97 Oxygen Delivery Mechanical Ventilation Fraction of Inspired Oxygen 30 30 03/24/24 14:00 03/24/24 14:00 03/24/24 14:00 Temperature Pulse Rate 96 96 97 Respiratory Rate 16 16 Blood Pressure 90/54 L Pulse Oximetry 98 Oxygen Delivery Fraction of Inspired Oxygen Intake/Output Intake/Output: Intake & Output 03/21/24 03/22/24 03/23/24 03/24/24 23:59 23:59 23:59 23:59 Intake Total 230 239.6 1884.3 1343.0 Output Total 700 625 775 525 Balance -470 -385.4 1109.3 818.0 Meds/Results Medications: Active Medications Generic Name Dose Route Start Last Admin Trade Name Freq PRN Reason Stop Dose Admin Acetaminophen 500 mg 03/08/24 10:18 03/13/24 09:24 Acetaminophen 500 Mg Tablet FEED TUBE 500 mg Q6H PRN Administration Pain Rated 1-3 Albuterol/Ipratropium 3 ml 02/29/24 02:00 03/24/24 13:47 Ipratropium 0.5 Mg/Albuterol Sulfate 2.5 Mg Ampul.Neb 3 Ml INHALATION 3 ml Q6HRT [facility] Administration Alteplase, Recombinant 2 mg 03/06/24 09:45 03/22/24 16:56 Alteplase 2 Mg Vial (Cathflo) IV PUSH 2 mg ONCE PRN Administration Line Occlusion Aspirin 81 mg 03/09/24 08:00 03/24/24 08:09 Aspirin 81 Mg Chewable Tablet FEED TUBE 81 mg DAILY@0800 [facility] Administration Bisacodyl 10 mg 03/24/24 07:31 Bisacodyl 10 Mg Suppository RECTAL QAM PRN Constipation Dextrose 12.5 gm 02/28/24 19:23 Dextrose 50% 25 Gm/50 Ml Syringe IV PUSH PRN PRN Hypoglycemia Protocol Enoxaparin Sodium 90 mg 03/23/24 07:45 03/24/24 08:09 Enoxaparin 100 Mg/Ml Syringe SUB-Q 90 mg Q12HR JASON Administration Glucagon 1 mg 02/28/24 19:23 Glucagon For Inj 1 Mg Vial IM PRN PRN Hypoglycemia Protocol Glucose 15 gm 10/26/24 10:19 Glucose Oral Gel 15 Gm Of Glucse In 37.5 Gm Tube FEED TUBE PRN PRN Hypoglycemia Protocol Dextrose 1,000 mls @ 100 mls/hr 02/28/24 19:23 Dextrose 5% 1,000 Ml IVPB PRN PRN Hypoglycemia Protocol Fentanyl Citrate 2,500 mcg in 250 mls @ 7.5 mls/hr 03/22/24 12:15 03/24/24 12:00 Fentanyl 2,500 Mcg/Ns 250 Ml IV CONT 75 mcg/hr .[id number] JASON 7.5 mls/hr Titration Protocol 75 MCG/HR Midazolam HCl 100 mg in 100 mls @ 2 mls/hr 03/22/24 12:15 03/24/24 12:00 Versed 100 Mg/Ns 100 Ml IV CONT 2 mg/hr .Q50H JASON 2 mls/hr Titration Protocol 2 MG/HR Insulin Aspart 3 - 6 units 03/15/24 17:00 03/24/24 13:02 Insulin Aspart (*Bkc) 100 Units/Ml SUB-Q Not Given Q4HR JASON Protocol Insulin Glargine 55 units 03/15/24 09:00 03/16/24 10:44 Insulin Glargine (*Bkc) 100 Units/Ml SUB-Q 55 units DAILY JASON Administration Labetalol HCl 20 mg 03/08/24 10:06 03/08/24 16:48 Labetalol Hcl Inj 100 Mg/20 Ml Vial IV PUSH 20 mg Q4H PRN Administration SBP > 160 and HR> 60 -1st choice Morphine Sulfate 2 mg 03/19/24 19:39 03/21/24 20:36 Morphine Sulfate (*Crx) 2 Mg/Ml Inj IV PUSH 2 mg Q2HR PRN Administration Pain Rated 7-10 Multi-Ingred Cream/Lotion/Oil/Oint 1 applic 03/22/24 21:00 03/24/24 08:09 Mineral Oil/White Petrolatum Ointment EACH EYE 1 applic Q12HR JASON Administration Pantoprazole Sodium 40 mg 03/02/24 09:00 03/24/24 08:09 Pantoprazole Sodium Iv 40 Mg Vial IV PUSH 40 mg Q12HR JASON Administration Polyethylene Glycol 17 gm 03/24/24 09:00 03/24/24 08:09 Polyethylene Glycol 3350 17 Gm Powd.Pack PO 17 gm QAM JASON Administration Sodium Chloride 10 ml 02/29/24 06:00 03/24/24 14:42 Central Line Flush IV PUSH 10 ml Q8HR JASON Administration Sodium Chloride 20 ml 02/28/24 23:37 Central Line Flush IV PUSH PRN PRN after blood draws Sodium Chloride 20 ml 03/21/24 08:57 Central Line Flush IV PUSH PRN PRN after blood draws Sodium Chloride 10 ml 03/21/24 08:57 Central Line Flush IV PUSH PRN PRN with TPN bag changes Sodium Chloride 10 ml 03/21/24 14:00 03/24/24 14:42 Central Line Flush IV PUSH 10 ml Q8HR JASON Administration Radiology Results: ITS Impressions Lower Extremity CTA 02/28/24 14:54 IMPRESSION: 1. 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 2. Moderate stenosis of right popliteal artery. 3. Osteomyelitis involving first proximal and distal phalanges and head of first metatarsal. Head CT 02/29/24 05:55 Impression: No intracranial hemorrhage, mass, or acute infarct. Stable chronic encephalomalacia in the high left parietal lobe. Atrophy and chronic white matter changes, as above. Chest/Abdomen/Pelvis CTA 02/29/24 06:02 Impression: Extensive right upper lobe consolidation and more mild right middle lobe consolidation, consistent with pneumonia. Consider aspiration pneumonia. Moderate to large right pleural effusion with complete atelectasis of the right lower lobe. Moderate left pleural effusion with minimal left basilar atelectasis. Small pericardial effusion. No definite acute abnormality in the abdomen or pelvis. Chronic compression fractures, as above. Renal Ultrasound 03/03/24 15:45 IMPRESSION: 1. Normal kidneys without hydronephrosis. 2. Small amount of ascites in the abdomen and pelvis. Abdomen Ultrasound 03/13/24 16:52 IMPRESSION: 1. No etiology for abnormal liver function tests. 2. Normal hepatic veins and main portal vein. Right and left portal veins and proper hepatic artery not evaluated. 3. Right pleural effusion. Vascular Ultrasound 03/13/24 16:52 IMPRESSION: 1. No etiology for abnormal liver function tests. 2. Normal hepatic veins and main portal vein. Right and left portal veins and proper hepatic artery not evaluated. 3. Right pleural effusion. Chest/Abdomen/Pelvis CT 03/16/24 21:51 IMPRESSION: Anasarca Large pleural effusions with prominent compressive atelectasis of the lower lobes especially, dependent atelectasis of the middle and upper lobes Heart size. Prominent coronary artery atherosclerotic calcifications Minimal pericardial effusion Prominent diffuse thickening of urinary bladder wall suggesting cystitis area Ha catheter in bladder lumen Very prominent amount of fluid and large fluid level within the stomach despite presence of NG tube T11 and L1 moderate anterior wedge compression fractures, likely chronic Thoracentesis Ultrasound 03/18/24 10:27 IMPRESSION: 1. Successful ultrasound-guided thoracentesis yielding 550 mL of doris-colored fluid. Modified Barium Swallow 03/21/24 15:25 IMPRESSION: 1. Aspiration of thin liquids and pudding. 2. Please refer to the speech therapy report for recommendations. Tube Placement 03/22/24 11:33 IMPRESSION: 1. Fluoroscopy guided nasoenteric tube placement with tip in the stomach. Abdomen X-Ray 03/22/24 12:47 IMPRESSION: 1. Nasogastric tube tip in the stomach. 2. Nasoenteric tube tip in the stomach. Venous Doppler Study 03/22/24 16:38 IMPRESSION: Nonocclusive right subclavian vein thrombus. No additional deep venous thrombosis detected in the remaining bilateral upper extremity veins. Chest X-Ray 03/24/24 06:33 Impression: Bilateral pleural effusions with mild to moderate pulmonary edema pattern, as above. Support tubes, as above. Labs Labs: Laboratory Results - last 24 hr 03/23/24 03/23/24 03/23/24 04:44 16:11 20:48 WBC RBC Hgb Hct MCV MCH MCHC RDW Plt Count MPV Puncture Site ABG pH ABG pCO2 ABG pO2 ABG PO2/FiO2 Ratio ABG HCO3 ABG O2 Saturation ABG O2 Content ABG Base Excess A-a Gradient Oxyhemoglobin Carboxyhemoglobin Methemoglobin Reduced Hemoglobin Total Hemoglobin O2 Delivery Device O2 Liters/Min Minute Volume Not Reportable Vent Rate Vent Mode FiO2 Tidal Volume PEEP Peak Inspir Pressure Not Reportable Pressure Support Not Reportable Sodium Potassium Chloride Carbon Dioxide Anion Gap BUN Creatinine Estim Creat Clear Calc Estimated GFR Glucose POC Capillary Glucose 158 H 157 H Calcium Magnesium Total Bilirubin AST ALT Alkaline Phosphatase Total Protein Albumin 03/24/24 03/24/24 03/24/24 01:05 04:43 05:14 WBC 8.1 RBC 2.82 L Hgb 7.7 L Hct 27.7 L MCV 98.2 MCH 27.3 MCHC 27.8 L RDW 19.2 H Plt Count 216 MPV 9.6 Puncture Site Right brachial ABG pH 7.435 ABG pCO2 42.9 ABG pO2 86.4 ABG PO2/FiO2 Ratio 2.88 ABG HCO3 28.2 H ABG O2 Saturation 96.8 ABG O2 Content 11.6 L ABG Base Excess 3.6 A-a Gradient 77.1 Oxyhemoglobin 95.8 Carboxyhemoglobin 1.2 Methemoglobin 0.3 Reduced Hemoglobin 2.7 Total Hemoglobin 8.5 L O2 Delivery Device Ventilator O2 Liters/Min Not Reportable Minute Volume Not Reportable Vent Rate 16 Vent Mode Cmv FiO2 30 Tidal Volume 380 PEEP 8 Peak Inspir Pressure Not Reportable Pressure Support Not Reportable Sodium 146 H Potassium 3.9 Chloride 114 H Carbon Dioxide 30 Anion Gap 2 L BUN 20 Creatinine 0.80 Estim Creat Clear Calc 79 Estimated GFR > 60 Glucose 173 H POC Capillary Glucose 172 H Calcium 7.7 L Magnesium 2.2 Total Bilirubin 0.6 AST 26 ALT 28 Alkaline Phosphatase 129 H Total Protein 6.0 L Albumin 2.5 L 03/24/24 03/24/24 08:05 13:01 WBC RBC Hgb Hct MCV MCH MCHC RDW Plt Count MPV Puncture Site ABG pH ABG pCO2 ABG pO2 ABG PO2/FiO2 Ratio ABG HCO3 ABG O2 Saturation ABG O2 Content ABG Base Excess A-a Gradient Oxyhemoglobin Carboxyhemoglobin Methemoglobin Reduced Hemoglobin Total Hemoglobin O2 Delivery Device O2 Liters/Min Minute Volume Vent Rate Vent Mode FiO2 Tidal Volume PEEP Peak Inspir Pressure Pressure Support Sodium Potassium Chloride Carbon Dioxide Anion Gap BUN Creatinine Estim Creat Clear Calc Estimated GFR Glucose POC Capillary Glucose 182 H 144 H Calcium Magnesium Total Bilirubin AST ALT Alkaline Phosphatase Total Protein Albumin Hospitalist MIPS Advance Care Plan I have confirmed that the patient's Advanced Care Plan is present, code status is documented, or surrogate decision maker is listed in patient medical record.: Yes Medication Reconciliation I have utilized all available resources to obtain, update and review the patients current medications (includes all prescriptions, OTC, herbals, cannabis, and nutritional supplements).: Yes
[2024-03-24] MEDS: BISACODYL 10 MG SUPPOSITORY RECTAL (16:04)
[2024-03-24 17:05] LABS: Glucose Point of Care 142 mg/dl (65-105)
[2024-03-24 20:19] LABS: Glucose Point of Care 132 mg/dl (65-105)
[2024-03-25] VITALS (36 sets, daily range): BP systolic 87–102; BP diastolic 50–65; PULSE 89–108; RESP 16–24; TEMP 37.1–37.9; O2SAT 95–99
[2024-03-25 00:57] LABS: Glucose Point of Care 161 mg/dl (65-105)
[2024-03-25] MEDS: IPRATROPIUM 0.5 MG/ALBUTEROL SULFATE 2.5 MG AMPUL.NEB 3 ML INHALATION ×4 (02:24→20:10)
[2024-03-25] MEDS: CENTRAL LINE FLUSH 10 ML IV PUSH ×6 (05:04→20:06)
[2024-03-25 05:14] LABS: Glucose Point of Care 149 mg/dl (65-105)
[2024-03-25 05:21] LABS: Hematocrit 28.3 % (42.0-52.0); Hemoglobin 8.1 g/dL (14.0-18.0); Mean Corpuscular HGB Conc 28.6 g/dl (32-36); Mean Corpuscular Volume 97.9 fl (80-100); Mean Platelet Volume 9.9 fl (7.4-10.4); Platelet Count Result 211 k/mm3 (150-375); Red Blood Count 2.89 M/mm3 (4.6-6.20); Red Cell Distribution Width 19.2 % (11.5-14.5); White Blood Count 7.5 K/mm3 (4.5-10.0)
[2024-03-25 05:28] LABS: Alveolar/Arterial O2 Gradient 79.7 mmHg; Base Excess ABG 2.6 mEq/l (+/-2.0); Carboxyhemoglobin 1.5 % THb (0-2.0); Fractional Inspired Oxygen 30 %; HCO3 ABG 27.5 mEq/l (22.0-26.0); Methemoglobin ABG 0.1 %THb (0-1.5); Oxygen Content ABG 11.7 %vol (16.0-22.0); Oxygen Saturation ABG 96.2 % (95.0-100.0); Oxyhemoglobin 94.9 % THb (90.0-100.0); PCO2 ABG 44.1 mmHg (35.0-45.0); PO2 ABG 82.4 mmHg (80.0-100.0); PO2 FiO2 Ratio Arterial Blood 2.75 %; Reduced Hemoglobin 3.5 %THb (0-5.0); Total Hemoglobin 8.7 g/dL (12.0-18.0); pH ABG 7.413 (7.350-7.450)
[2024-03-25 05:30] LABS: Device VENTILATOR; Modified Allen's Test Pass; Site Drawn RIGHT RADIAL
[2024-03-25 05:31] LABS: Arterial Blood Gas PEEP 8 cmH2O; Arterial Blood Gas Tidal Volume 380 ml; Arterial Blood Gas Vent Mode CMV; Arterial Blood Gas Ventilator rate 16 /MIN
[2024-03-25 05:33] LABS: Alanine Aminotransferase 24 U/L (6-50); Albumin Level 2.7 g/dL (3.5-5.1); Alkaline Phosphatase 133 U/L (38-126); Anion Gap 3 mmol/L (4-12); Aspartate Amino Transferase 26 U/L (17-59); Bilirubin,Total 0.6 mg/dL (0.2-1.3); Blood Urea Nitrogen 18 mg/dL (9-20); Carbon Dioxide 31 mmol/L (22-30); Chloride 111 mmol/L (98-107); Estimated CRCL calculation 79 ml/min; Estimated Glomerular Filt Rate > 60; Glucose 157 mg/dL (65-110); Magnesium 2.2 mg/dL (1.6-2.3); Potassium 4.1 mmol/L (3.4-5.0); Sodium 145 mmol/L (137-145)
[2024-03-25 08:24] LABS: Glucose Point of Care 169 mg/dl (65-105)
[2024-03-25] MEDS: ASPIRIN 81 MG CHEWABLE TABLET FEED TUBE (08:24)
[2024-03-25] MEDS: ENOXAPARIN 100 MG/ML SYRINGE 90 MG SUB-Q ×2 (08:24→20:05)
[2024-03-25] MEDS: PANTOPRAZOLE SODIUM IV 40 MG VIAL IV PUSH ×2 (08:26→20:06)
[2024-03-25] MEDS: polyethylene glycoL 3350 17 GM POWD.PACK PO (08:26)
[2024-03-25] MEDS: FENTANYL 2,500MCG/NS250ML(*CRX 2,500 MCG/250 ML BAG 10 MCG IV CONT (08:28)
[2024-03-25] MEDS: MINERAL OIL/WHITE PETROLATUM OINTMENT 1 APPLIC EACH EYE ×2 (08:28→20:07)
--- NOTE | 2024-03-25 08:35 | P.PNINT_ITS ---
Progress Note: A&P Assessment and Plan (1) Acute respiratory failure with hypoxia: Code(s): J96.01 - Acute respiratory failure with hypoxia Status: Acute Assessment and Plan: Acute respiratory failure likely related to cardiac arrest, aspiration pneumonia, NSTEMI, hypoxia, septic shock Worsening likely secondary to ARDS versus pulmonary edema Intubated 02/27 02/28 Chest CTA: Extensive right upper lobe consolidation and more mild right middle lobe consolidation, consistent with pneumonia. Consider aspiration pneumonia.Moderate to large right pleural effusion with complete atelectasis of the right lower lobe. Moderate left pleural effusion with minimal left basilar atelectasis. Small pericardial effusion. No definite acute abnormality in the abdomen or pelvis. Chronic compression fractures, as above . -03/07 right thoracentesis with 1 L fluid removed -03/08 left-sided thoracentesis 550 mL -03/11: patient was in pressure support ventilation 02/18, with decrease tidal volumes in the upper 200s. place patient back on CMV, I have asked the bedside RN to decrease the Precedex infusion once patient is more awake will place back on spontaneous breathing trials 03/12: Place patient on SBT 04/17, low tidal volumes, low respiratory rate. Patient had replaced back on CMV mode of ventilation. -even on ASV patient is breathing only 7-8 times a minute 03/13: Off Precedex infusion overnight, placed patient on pressure support ventilation 04/17, initially did well but not significantly tachycardic and tachypneic and in respiratory distress, patient was placed back on CMV mode of ventilation and low-dose was 03/14 8/5 PSV SBT done for more than 1 hour. RSBI, ABG and Vitals acceptable. Pt awake and following commands. Patient was extubated. Initially patient did well and was on nasal cannula and was able to communicate. Over 12 hours patient became more hypoxic with increased respiratory distress and tachypnea. I spoke to patient post extubation and was agreeable to re-intubation if needed and stated that 'he is not ready to ' and 'do what ever it takes'. He was re intubated at night. I also mentioned to him that he may need tracheostomy and PEG tube placement if he gets we intubated and is not weanable. He told me 'to proceed with it if needed'. Solu-Medrol IV given for airway edema and will be continued for 24 hours -completed course of Solu-Medrol -continue bronchodilators -CT scan shows large pleural effusions bilaterally. I will request IR for thoracentesis.. Patient is on minimal ventilator setting but has failed trials initially multiple times and then once extubated he was reintubated within 12 hours. I will treat try again after thoracentesis to see patient is weanable from the vent otherwise will proceed with trach and PEG as patient has been on ventilator for more than 2 weeks. 03/17 right thoracentesis 1 L fluid was removed 03/18 left thoracentesis 550 mL fluid was removed Will also continue diuretics. 03/19 patient was extubated after weaning trial 03/20 continue nasal cannula, BiPAP p.r.n., hold diuretics, incentive spirometry, spoke to patient after extubation yesterday he is willing to be intubated if needed and proceed with trach and PEG if needed hopefully we can avoid that situation 03/21 patient continues to require BiPAP intermittently and tolerates nasal cannula. He appears quite weak although he does have borderline cough. Cont inue incentive spirometry. P.r.n. BiPAP. BiPAP at night. Nasal cannula as tolerated. Patient remains at risk of requiring intubation. I spoke to patient again and mention that to him and he verbalized understanding by noting his head. I will check chest x-ray. Continue ICU monitoring 03/22 discussed with the patient emphasized importance of using BiPAP for increased work of breathing and at night due to his deconditioning and weakness. He is currently saturating on nasal cannula and appears not in any respiratory distress. later patient deteriorated and required re-intubation 03/23 ABG and chest x-ray. patient has failed extubation twice and has been on ventilator for close to 20 days. Patient is awaiting trach now . ENT consulted ABG and chest x-ray reviewed. Continue mechanical ventilation. tracheostomy planned May have to transfer to another hospital for tracheostomy if ENT coverage is not available here. (2) Elevated LFTs: Code(s): R79.89 - Other specified abnormal findings of blood chemistry Status: Acute Assessment and Plan: 03/13: Significant elevation in LFTs, AST 2280, ALT 988, alk-phos 722 -patient has been hemodynamically stable, no hypotension noted in the last 24-48 hours -statin discontinued. Hold Tylenol -no tenderness in the right upper, lower quadrant or epigastric region on exam -negative vital hepatitis panel, right upper quadrant ultrasound with Doppler negative for hepatic or portal vein thrombosis -patient evaluated by GI -levels now improved. Monitor (3) Cardiac arrest with pulseless electrical activity: Code(s): I46.9 - Cardiac arrest, cause unspecified Status: Acute Assessment and Plan: Cardiac arrest, secondary to unknown etiology. Possible aspiration pneumonia, NSTEMI, hypoxia, septic shock, infection -see code blue sheet for the details -patient currently intubated, vasopressors for blood pressure support have been weaned off -appreciate cardiology following the patient 02/29/2024 echocardiogram Summary 1. Technically difficult study with limited views. 2. Left ventricular chamber dimension is normal. 3. Left ventricular systolic function is mildly reduced, estimated at 45-50%. The apex appears to be hypokinetic. 4. There is mildly increased left ventricular wall thickness. 5. The left ventricular diastolic function is grade I diastolic dysfunction. 6. Right ventricular systolic function is normal. 7. Left atrial chamber dimension is moderately enlarged. 8. There is mild to moderate tricuspid valve regurgitation. 9. There is small anterior pericardial effusion. (4) Septic shock: Code(s): A41.9 - Sepsis, unspecified organism; R65.21 - Severe sepsis with septic shock Status: Acute Assessment and Plan: Resolved Patient in shock, likely related to the gangrene, aspiration pneumonia, status post cardiac arrest 02/28/2024: Blood cultures have been obtained and negative Off vasopressors and IV fluids Status post 10 days of antibiotics 03/16 low-grade fever increase in WBC CT scan as above, repeat blood cultures and sputum pending UA suggestive of UTI. Urine cultures pending. Ha has been changed. Completed course of cefepime (5) NSTEMI (non-ST elevated myocardial infarction): Code(s): I21.4 - Non-ST elevation (NSTEMI) myocardial infarction Status: Acute Assessment and Plan: -appreciate cardiology evaluation and recommendation -Continue aspirin and high-dose a statin -will hold Brilinta. Resumption per General surgery - beta-brayden, losartan are on hold due to soft blood pressure. Will resume beta-brayden -03/02 heparin infusion was discontinued after 48 hours for NSTEMI by cardiology (6) Gangrene of right foot: Code(s): I96 - Gangrene, not elsewhere classified Status: Acute Assessment and Plan: CTA showed peripheral arterial disease with total occlusion of the right anterior and posterior tibial arteries and right peroneal artery with distal reconstitution of peroneal artery. This extensive gangrene of the right foot with gas seen on CT of the foot. General surgery spoke to the patient in the ER on the day of admission on 02/27 patient at that time agreed for below-knee amputation. Plan was to do a below- knee amputation on 02/29/2024 but patient had a cardiac arrest that night secondary to sepsis. Surgery at that time was deferred. Patient now is intubated sedated and unable to sign his consent.. Patient has no family and for many years at the group home has had no visitor. He has 1 son which no one has been able to get hold off right several attempts. Considering patient has gangrene of the foot with no vascular supply leading to sepsis and if untreatable lead to his , Dr. Johns will proceed with amputation today, 03/05/2024. Dr. Collins and Dr. Johns has signed 2 physician consent considering patient's clearly expressed wishes prior to cardiac arrest at the time of admission, his current situation and inability to sign the consent form by himself at this time. 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 -complete 5 days of clindamycin 03/13: Discussed with surgery, there is flexion contractures of his amputation which may hinder in him getting prosthetics, patient may require above knee amputation (7) Osteomyelitis of toe of right foot: Code(s): M86.9 - Osteomyelitis, unspecified Status: Chronic Assessment and Plan: As above (8) Peripheral vascular disease: Code(s): I73.9 - Peripheral vascular disease, unspecified Status: Chronic Assessment and Plan: Patient has history of peripheral vascular disease, coronary artery disease -started on aspirin, patient will require Brilinta since he had a STEMI in 2020 but currently holding Brilinta due to surgery and bleeding (9) Type 2 diabetes mellitus: Qualifiers: 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 complication status: with other specified complication 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 jail insulin use: with terminal make up operator use Qualified Code(s): E11.69 - Type 2 diabetes mellitus with other specified complication; 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 continue free water flush. Sodium improving (12) Ileus: Code(s): K56.7 - Ileus, unspecified Status: Acute Assessment and Plan: CT scan shows significant amount of tube feeds collected in the stomach. Patient also had high residuals. Patient has already been on Reglan. Bowel sounds are present but decreased. tube feeds restarted after PEG placement (13) Sinus tachycardia: Code(s): R00.0 - Tachycardia, unspecified Status: Acute Assessment and Plan: Does not appear in any respiratory distress. Continue BiPAP p.r.n.. beta-brayden held due to low blood pressure (14) Dysphagia: Code(s): R13.10 - Dysphagia, unspecified Status: Acute Assessment and Plan: Patient failed his bedside swallow evaluation and a modified barium swallow study prior to re-intubation which showed aspiration of thin liquids and pudding 03/24 PEG tube inserted. Tube feeds resumed (15) DVT (deep venous thrombosis): Code(s): I82.409 - Acute embolism and thrombosis of unspecified deep veins of unspecified lower extremity Status: Acute Assessment and Plan: ultrasound shows clot surrounding the PICC line in the right upper extremity PICC line working and will be left in place for now Continue Lovenox at therapeutic dose Plan DVT prophylaxis: Lovenox therapeutic dose Stress ulcer prophylaxis: Protonix Nutrition: tube feeds ordered Code Status: Full code. PEG tube done. Patient awaits tracheostomy placement 03/15 Patient has no family available. Patient was extubated on 03/14 and I spoke to patient post extubation. I mentioned possibility of him needing re- intubation and he was agreeable stating that he is not ready to at this time. He stated that do whatever needs to be done to keep me alive. I also mentioned to him that if he gets reintubated and is unable to be weaned he will need tracheostomy and PEG tube placement and he states that he is agreeable to do it if needed. He did mention that he has some nephews in area which can be contacted. pediatric care coordinator was provided that information. 03/19 I confirmed with patient again regarding his code status he is willing to get reintubated if needed and is willing to proceed with trach and PEG if needed. He wishes to be full code. 03/23 Finally patient's son arrived at bedside and I spoke to him with his and patient's ex- in the conference room. I updated them in detail about the details of patient's admission presentation and hospital course till now. He states that he has not been touch with his dad for last 10 years. He is willing to be the POA at this time. I answered all his questions and explained him the patient is currently in respiratory failure with failure to wean requiring re- intubation x2, congestive Heart Care earlier, gangrene of right foot requiring amputation, sepsis, UTI, dysphagia and he will need trach and PEG. They understand and agree with patient's wishes to proceed with trach and PEG at this time. He was hoping the patient can go to a facility close to where he lives. Critical Care Time Spent: 32 minutes Due to a high probability of clinically significant, life threatening d eterioration, the patient required my highest level of preparedness to intervene emergently and I personally spent this critical care time directly and personally managing the patient. This critical care time included obtaining a history; examining the patient; pulse oximetry; ordering and review of studies; arranging urgent treatment with development of a management plan; evaluation of patient's response to treatment; frequent reassessment; and discussions with other providers. It was exclusive of separately billable procedures and treating other patients and teaching time. Please see Assessment and Plan section and the rest of the note for further information on patient assessment and treatment This dictation may have been done utilizing a voice recognition system. Attempts have been made to correct errors. However, there may be uncorrected grammatical, spelling, and recognitions errors present. Subjective Date/time seen: 03/25/24 Overnight events reviewed. Afebrile Continues to be on mechanical ventilation 30% FiO2 tolerating tube feeds. urine output on the lower side Continues to be sedated with Versed and fentanyl other Vitals acceptable Review of Systems Review of Systems: ROS unobtainable: Yes unobtainable due to endotracheal tube, unobtainable due to medical condition and unobtainable due to mental status Exam Narrative: General: Patient intubated sedated and in no acute distress HEENT:, pupils are equal and reactive from a sclera is clear Neck:? supple Respiratory:? Coarse breath sounds bilaterally, decreased at bases, adequate air entry, no wheezing Cardiac:? S1-S2 normal, regular rate and rhythm Abdomen:? Soft, nontender, nondistended, bowel sounds are decreased but present Extremities:? Right BKA stump under the dressing. Left dorsalis pedis is dopplerable Neuro:? Patient is wakes up on stimulation and calling his name and is nodes his head but quickly falls back to sleep, he is sedated, not following commands today. He is overall generalized weak Skin:? Patient has maceration of his perianal area, pressure ulcer on his buttocks. Psych:? Normal speech and affect Objective Data Vital Signs Vital Signs: Vital Signs - 24 hr 03/24/24 10:58 03/24/24 10:00 03/24/24 10:00 Temperature 37.2 C Pulse Rate 100 97 100 Respiratory Rate 15 Blood Pressure 97/58 L Pulse Oximetry 98 97 Oxygen Delivery Mechanical Ventilation Fraction of Inspired Oxygen 30 03/24/24 12:49 03/24/24 12:00 03/24/24 10:00 Temperature 37.2 C 37.2 C Pulse Rate 97 98 100 Respiratory Rate 15 15 15 Blood Pressure 103/57 L 103/57 L Pulse Oximetry 98 98 Oxygen Delivery Mechanical Ventilation Fraction of Inspired Oxygen 03/24/24 12:00 03/24/24 10:00 03/24/24 12:00 Temperature Pulse Rate 98 100 98 Respiratory Rate 15 15 15 Blood Pressure Pulse Oximetry Oxygen Delivery Fraction of Inspired Oxygen 03/24/24 13:47 03/24/24 13:47 03/24/24 12:00 Temperature Pulse Rate 96 96 Respiratory Rate 19 Blood Pressure Pulse Oximetry 97 Oxygen Delivery Mechanical Ventilation Fraction of Inspired Oxygen 30 30 03/24/24 12:00 03/24/24 12:00 03/24/24 14:00 Temperature Pulse Rate 98 96 96 Respiratory Rate 19 Blood Pressure Pulse Oximetry 97 Oxygen Delivery Mechanical Ventilation Fraction of Inspired Oxygen 30 03/24/24 14:00 03/24/24 14:00 03/24/24 16:00 Temperature Pulse Rate 96 97 Respiratory Rate 16 16 Blood Pressure 90/54 L Pulse Oximetry 98 Oxygen Delivery Fraction of Inspired Oxygen 30 03/24/24 16:00 03/24/24 16:43 03/24/24 16:00 Temperature Pulse Rate 96 100 104 H Respiratory Rate 16 Blood Pressure Pulse Oximetry 98 100 Oxygen Delivery Mechanical Ventilation Mechanical Ventilation Fraction of Inspired Oxygen 30 30 03/24/24 16:00 03/24/24 14:00 03/24/24 16:00 Temperature 37.1 C Pulse Rate 108 H 96 108 H Respiratory Rate 17 16 17 Blood Pressure 105/74 Pulse Oximetry 99 Oxygen Delivery Fraction of Inspired Oxygen 03/24/24 14:00 03/24/24 16:00 03/24/24 18:00 Temperature Pulse Rate 96 100 98 Respiratory Rate 16 17 Blood Pressure Pulse Oximetry Oxygen Delivery Fraction of Inspired Oxygen 03/24/24 18:00 03/24/24 18:00 03/24/24 18:00 Temperature 36.9 C Pulse Rate 95 95 95 Respiratory Rate 15 15 15 Blood Pressure 96/56 L Pulse Oximetry 100 Oxygen Delivery Fraction of Inspired Oxygen 03/24/24 20:00 03/24/24 20:00 03/24/24 20:00 Temperature 37.0 C Pulse Rate 102 H 102 H 102 H Respiratory Rate 19 18 19 Blood Pressure 106/61 Pulse Oximetry 100 Oxygen Delivery Fraction of Inspired Oxygen 03/24/24 20:15 03/24/24 20:30 03/24/24 20:00 Temperature Pulse Rate 96 102 H Respiratory Rate 16 Blood Pressure Pulse Oximetry 100 Oxygen Delivery Mechanical Ventilation Fraction of Inspired Oxygen 30 30 03/24/24 20:25 03/24/24 20:25 03/24/24 20:45 Temperature Pulse Rate 96 98 99 Respiratory Rate 16 16 Blood Pressure Pulse Oximetry 100 Oxygen Delivery Mechanical Ventilation Fraction of Inspired Oxygen 30 03/24/24 22:00 03/24/24 22:00 03/24/24 22:00 Temperature 37.2 C Pulse Rate 96 96 96 Respiratory Rate 16 16 Blood Pressure 95/56 L Pulse Oximetry 100 Oxygen Delivery Fraction of Inspired Oxygen 03/24/24 22:10 03/24/24 23:02 03/24/24 23:28 Temperature Pulse Rate 96 103 H 99 Respiratory Rate 16 20 Blood Pressure Pulse Oximetry 98 Oxygen Delivery Mechanical Ventilation Fraction of Inspired Oxygen 30 03/25/24 00:00 03/25/24 00:00 03/25/24 00:00 Temperature 37.3 C Pulse Rate 94 95 95 Respiratory Rate 16 16 16 Blood Pressure 90/52 L Pulse Oximetry 99 Oxygen Delivery Fraction of Inspired Oxygen 03/25/24 00:00 03/25/24 00:10 03/25/24 00:00 Temperature Pulse Rate 95 94 Respiratory Rate 16 Blood Pressure Pulse Oximetry 99 Oxygen Delivery Mechanical Ventilation Fraction of Inspired Oxygen 30 30 03/25/24 02:00 03/25/24 02:00 03/25/24 02:24 Temperature 37.2 C Pulse Rate 96 96 95 Respiratory Rate 16 17 Blood Pressure 90/52 L Pulse Oximetry 97 Oxygen Delivery Fraction of Inspired Oxygen 03/25/24 02:25 03/25/24 02:00 03/25/24 02:00 Temperature Pulse Rate 94 96 96 Respiratory Rate 16 16 Blood Pressure Pulse Oximetry 98 Oxygen Delivery Mechanical Ventilation Fraction of Inspired Oxygen 30 03/25/24 03:52 03/25/24 04:00 03/25/24 04:00 Temperature 37.2 C Pulse Rate 94 93 Respiratory Rate 17 16 Blood Pressure 91/57 L Pulse Oximetry 98 98 Oxygen Delivery Mechanical Ventilation Fraction of Inspired Oxygen 30 30 03/25/24 04:00 03/25/24 04:00 03/25/24 04:00 Temperature Pulse Rate 93 93 94 Respiratory Rate 16 16 Blood Pressure Pulse Oximetry Oxygen Delivery Fraction of Inspired Oxygen 03/25/24 05:33 03/25/24 06:00 03/25/24 06:00 Temperature 37.1 C Pulse Rate 104 H 108 H 108 H Respiratory Rate 23 H Blood Pressure 101/59 L Pulse Oximetry 95 98 Oxygen Delivery Mechanical Ventilation Fraction of Inspired Oxygen 30 03/25/24 06:00 03/25/24 06:03 03/25/24 07:45 Temperature Pulse Rate 108 H 108 H 96 Respiratory Rate 21 H 21 H Blood Pressure Pulse Oximetry 97 Oxygen Delivery Mechanical Ventilation Fraction of Inspired Oxygen 30 03/25/24 07:45 03/25/24 07:58 03/25/24 07:58 Temperature Pulse Rate 96 97 97 Respiratory Rate 17 16 16 Blood Pressure Pulse Oximetry Oxygen Delivery Fraction of Inspired Oxygen 03/25/24 07:58 Temperature Pulse Rate 97 Respiratory Rate 16 Blood Pressure Pulse Oximetry Oxygen Delivery Fraction of Inspired Oxygen Intake/Output Intake/Output: Intake & Output 03/22/24 03/23/24 03/24/24 03/25/24 23:59 23:59 23:59 23:59 Intake Total 239.6 1884.3 1446.0 1528.0 Output Total 625 775 925 375 Balance -385.4 1109.3 521.0 1153.0 Meds/Results Medications: Active Medications Generic Name Dose Route Start Last Admin Trade Name Freq PRN Reason Stop Dose Admin Acetaminophen 500 mg 03/08/24 10:18 03/13/24 09:24 Acetaminophen 500 Mg Tablet FEED TUBE 500 mg Q6H PRN Administration Pain Rated 1-3 Albuterol/Ipratropium 3 ml 02/29/24 02:00 03/25/24 07:45 Ipratropium 0.5 Mg/Albuterol Sulfate 2.5 Mg Ampul.Neb 3 Ml INHALATION 3 ml Q6HRT JASON Administration Alteplase, Recombinant 2 mg 03/06/24 09:45 03/22/24 16:56 Alteplase 2 Mg Vial (Cathflo) IV PUSH 2 mg ONCE PRN Administration Line Occlusion Aspirin 81 mg 03/09/24 08:00 03/24/24 08:09 Aspirin 81 Mg Chewable Tablet FEED TUBE 81 mg DAILY@0800 [facility] Administration Bisacodyl 10 mg 03/24/24 07:31 03/24/24 16:04 Bisacodyl 10 Mg Suppository RECTAL 10 mg QAM PRN Administration Constipation Dextrose 12.5 gm 02/28/24 19:23 Dextrose 50% 25 Gm/50 Ml Syringe IV PUSH PRN PRN Hypoglycemia Protocol Enoxaparin Sodium 90 mg 03/23/24 07:45 03/24/24 20:12 Enoxaparin 100 Mg/Ml Syringe SUB-Q 90 mg Q12HR JASON Administration Glucagon 1 mg 02/28/24 19:23 Glucagon For Inj 1 Mg Vial IM PRN PRN Hypoglycemia Protocol Glucose 15 gm 03/08/24 10:19 Glucose Oral Gel 15 Gm Of Glucse In 37.5 Gm Tube FEED TUBE PRN PRN Hypoglycemia Protocol Dextrose 1,000 mls @ 100 mls/hr 02/28/24 19:23 Dextrose 5% 1,000 Ml IVPB PRN PRN Hypoglycemia Protocol Fentanyl Citrate 2,500 mcg in 250 mls @ 10 mls/hr 03/22/24 12:15 03/25/24 07:58 Fentanyl 2,500 Mcg/Ns 250 Ml IV CONT 100 mcg/hr .Q25H JASON 10 mls/hr Titration Protocol 100 MCG/HR Midazolam HCl 100 mg in 100 mls @ 2 mls/hr 03/22/24 12:15 03/25/24 07:58 Versed 100 Mg/Ns 100 Ml IV CONT 2 mg/hr .Q50H JASON 2 mls/hr Titration Protocol 2 MG/HR Insulin Aspart 3 - 6 units 03/15/24 17:00 03/25/24 05:04 Insulin Aspart (*Bkc) 100 Units/Ml SUB-Q Not Given Q4HR [facility] Protocol Insulin Glargine 55 units 03/15/24 09:00 03/16/24 10:44 Insulin Glargine (*Bkc) 100 Units/Ml SUB-Q 55 units DAILY JASON Administration Labetalol HCl 20 mg 03/08/24 10:06 03/08/24 16:48 Labetalol Hcl Inj 100 Mg/20 Ml Vial IV PUSH 20 mg Q4H PRN Administration SBP > 160 and HR> 60 -1st choice Morphine Sulfate 2 mg 03/19/24 19:39 03/21/24 20:36 Morphine Sulfate (*Crx) 2 Mg/Ml Inj IV PUSH 2 mg Q2HR PRN Administration Pain Rated 7-10 Multi-Ingred Cream/Lotion/Oil/Oint 1 applic 03/22/24 21:00 03/24/24 20:13 Mineral Oil/White Petrolatum Ointment EACH EYE 1 applic Q12HR JASON Administration Pantoprazole Sodium 40 mg 03/02/24 09:00 03/24/24 20:12 Pantoprazole Sodium Iv 40 Mg Vial IV PUSH 40 mg Q12HR JASON Administration Polyethylene Glycol 17 gm 03/24/24 09:00 03/24/24 08:09 Polyethylene Glycol 3350 17 Gm Powd.Pack PO 17 gm QAM JASON Administration Sodium Chloride 10 ml 02/29/24 06:00 03/25/24 05:04 Central Line Flush IV PUSH 10 ml Q8HR JASON Administration Sodium Chloride 20 ml 02/28/24 23:37 Central Line Flush IV PUSH PRN PRN after blood draws Sodium Chloride 20 ml 03/21/24 08:57 Central Line Flush IV PUSH PRN PRN after blood draws Sodium Chloride 10 ml 03/21/24 08:57 Central Line Flush IV PUSH PRN PRN with TPN bag changes Sodium Chloride 10 ml 03/21/24 14:00 03/25/24 05:05 Central Line Flush IV PUSH 10 ml Q8HR JASON Administration Radiology Results: ITS Impressions Lower Extremity CTA 02/28/24 14:54 IMPRESSION: 1. 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 2. Moderate stenosis of right popliteal artery. 3. Osteomyelitis involving first proximal and distal phalanges and head of first metatarsal. Head CT 02/29/24 05:55 Impression: No intracranial hemorrhage, mass, or acute infarct. Stable chronic encephalomalacia in the high left parietal lobe. Atrophy and chronic white matter changes, as above. Chest/Abdomen/Pelvis CTA 02/29/24 06:02 Impression: Extensive right upper lobe consolidation and more mild right middle lobe consolidation, consistent with pneumonia. Consider aspiration pneumonia. Moderate to large right pleural effusion with complete atelectasis of the right lower lobe. Moderate left pleural effusion with minimal left basilar atelectasis. Small pericardial effusion. No definite acute abnormality in the abdomen or pelvis. Chronic compression fractures, as above. Renal Ultrasound 03/03/24 15:45 IMPRESSION: 1. Normal kidneys without hydronephrosis. 2. Small amount of ascites in the abdomen and pelvis. Abdomen Ultrasound 03/13/24 16:52 IMPRESSION: 1. No etiology for abnormal liver function tests. 2. Normal hepatic veins and main portal vein. Right and left portal veins and proper hepatic artery not evaluated. 3. Right pleural effusion. Vascular Ultrasound 03/13/24 16:52 IMPRESSION: 1. No etiology for abnormal liver function tests. 2. Normal hepatic veins and main portal vein. Right and left portal veins and proper hepatic artery not evaluated. 3. Right pleural effusion. Chest/Abdomen/Pelvis CT 03/16/24 21:51 IMPRESSION: Anasarca Large pleural effusions with prominent compressive atelectasis of the lower lobes especially, dependent atelectasis of the middle and upper lobes Heart size. Prominent coronary artery atherosclerotic calcifications Minimal pericardial effusion Prominent diffuse thickening of urinary bladder wall suggesting cystitis area Ha catheter in bladder lumen Very prominent amount of fluid and large fluid level within the stomach despite presence of NG tube T11 and L1 moderate anterior wedge compression fractures, likely chronic Thoracentesis Ultrasound 03/18/24 10:27 IMPRESSION: 1. Successful ultrasound-guided thoracentesis yielding 550 mL of doris-colored fluid. Modified Barium Swallow 03/21/24 15:25 IMPRESSION: 1. Aspiration of thin liquids and pudding. 2. Please refer to the speech therapy report for recommendations. Tube Placement 03/22/24 11:33 IMPRESSION: 1. Fluoroscopy guided nasoenteric tube placement with tip in the stomach. Abdomen X-Ray 03/22/24 12:47 IMPRESSION: 1. Nasogastric tube tip in the stomach. 2. Nasoenteric tube tip in the stomach. Venous Doppler Study 03/22/24 16:38 IMPRESSION: Nonocclusive right subclavian vein thrombus. No additional deep venous thrombosis detected in the remaining bilateral upper extremity veins. Chest X-Ray 03/25/24 06:17 Impression: Moderate right pleural effusion and small left pleural effusion with probable moderate pulmonary edema. Support tubes, as above. Labs Labs: Laboratory Results - last 24 hr 03/23/24 03/24/24 03/24/24 04:44 13:01 16:59 WBC RBC Hgb Hct MCV MCH MCHC RDW Plt Count MPV Puncture Site ABG pH ABG pCO2 ABG pO2 ABG PO2/FiO2 Ratio ABG HCO3 ABG O2 Saturation ABG O2 Content ABG Base Excess A-a Gradient Oxyhemoglobin Carboxyhemoglobin Methemoglobin Reduced Hemoglobin Total Hemoglobin O2 Delivery Device O2 Liters/Min Minute Volume Not Reportable Vent Rate Vent Mode FiO2 Tidal Volume PEEP Peak Inspir Pressure Not Reportable Pressure Support Not Reportable Sodium Potassium Chloride Carbon Dioxide Anion Gap BUN Creatinine Estim Creat Clear Calc Estimated GFR Glucose POC Capillary Glucose 144 H 142 H Calcium Magnesium Total Bilirubin AST ALT Alkaline Phosphatase Total Protein Albumin 03/24/24 03/25/24 03/25/24 19:57 00:55 04:59 WBC RBC Hgb Hct MCV MCH MCHC RDW Plt Count MPV Puncture Site ABG pH ABG pCO2 ABG pO2 ABG PO2/FiO2 Ratio ABG HCO3 ABG O2 Saturation ABG O2 Content ABG Base Excess A-a Gradient Oxyhemoglobin Carboxyhemoglobin Methemoglobin Reduced Hemoglobin Total Hemoglobin O2 Delivery Device O2 Liters/Min Minute Volume Vent Rate Vent Mode FiO2 Tidal Volume PEEP Peak Inspir Pressure Pressure Support Sodium Potassium Chloride Carbon Dioxide Anion Gap BUN Creatinine Estim Creat Clear Calc Estimated GFR Glucose POC Capillary Glucose 132 H 161 H 149 H Calcium Magnesium Total Bilirubin AST ALT Alkaline Phosphatase Total Protein Albumin 03/25/24 03/25/24 03/25/24 05:03 05:19 08:22 WBC 7.5 RBC 2.89 L Hgb 8.1 L Hct 28.3 L MCV 97.9 MCH 28.0 MCHC 28.6 L RDW 19.2 H Plt Count 211 MPV 9.9 Puncture Site Right radial ABG pH 7.413 ABG pCO2 44.1 ABG pO2 82.4 ABG PO2/FiO2 Ratio 2.75 ABG HCO3 27.5 H ABG O2 Saturation 96.2 ABG O2 Content 11.7 L ABG Base Excess 2.6 A-a Gradient 79.7 Oxyhemoglobin 94.9 Carboxyhemoglobin 1.5 Methemoglobin 0.1 Reduced Hemoglobin 3.5 Total Hemoglobin 8.7 L O2 Delivery Device Ventilator O2 Liters/Min Not Reportable Minute Volume Not Reportable Vent Rate 16 Vent Mode Cmv FiO2 30 Tidal Volume 380 PEEP 8 Peak Inspir Pressure Not Reportable Pressure Support Not Reportable Sodium 145 Potassium 4.1 Chloride 111 H Carbon Dioxide 31 H Anion Gap 3 L BUN 18 Creatinine 0.80 Estim Creat Clear Calc 79 Estimated GFR > 60 Glucose 157 H POC Capillary Glucose 169 H Calcium 8.0 L Magnesium 2.2 Total Bilirubin 0.6 AST 26 ALT 24 Alkaline Phosphatase 133 H Total Protein 6.0 L Albumin 2.7 L Quality VTE Prophylaxis VTE prophylaxis: pharmacologic ordered
--- NOTE | 2024-03-25 10:25 | PCNFU ---
Nutrition Follow-Up Complete: Suboptimal Energy Intake as related to mechanical vent as evidenced by NPO. Meet estimated nutritional needs - progressing with new goal rate set at 60 ml/h which will provide ~ 97% EER and 76% estimated protein needs Goal: Pt current nutrition is Vital AF 1.2@ goal rate 50 ml/h providing 1375 kcal, 83 g protein, 892 ml free water. Flush 100 ml q 4 hours. Nutrition recommendation: Increase goal rate to 60 ml/h to provide 1584 kcal, 99 g protein, 1070 ml free water. Flush 100 ml q 4 hours. Last recorded weight is 92.8 kg. 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 Tolerating tube feeds so will advance goal rate to 60 ml/h to better meet estimated needs. May add protein modular and or Minh after tolerance is established. Will monitor weight, labs, skin, tube feedings, meds, every Sunday and Sunday.
[2024-03-25 12:16] LABS: Glucose Point of Care 159 mg/dl (65-105)
--- NOTE | 2024-03-25 12:44 | P.PNIM_ITS ---
Progress Note: A&P Assessment and Plan (1) Acute respiratory failure with hypoxia: Code(s): J96.01 - Acute respiratory failure with hypoxia Status: Acute Assessment and Plan: Acute respiratory failure likely related to cardiac arrest, aspiration pneumonia, NSTEMI, hypoxia, septic shock Worsening likely secondary to ARDS versus pulmonary edema Intubated 02/27 02/28 Chest CTA: Extensive right upper lobe consolidation and more mild right middle lobe consolidation, consistent with pneumonia. Consider aspiration pneumonia.Moderate to large right pleural effusion with complete atelectasis of the right lower lobe. Moderate left pleural effusion with minimal left basilar atelectasis. Small pericardial effusion. No definite acute abnormality in the abdomen or pelvis. Chronic compression fractures, as above . -03/07 right thoracentesis with 1 L fluid removed -03/08 left-sided thoracentesis 550 mL -03/11: patient was in pressure support ventilation 02/18, with decrease tidal volumes in the upper 200s. place patient back on CMV, I have asked the bedside RN to decrease the Precedex infusion once patient is more awake will place back on spontaneous breathing trials 03/12: Place patient on SBT 04/17, low tidal volumes, low respiratory rate. Patient had replaced back on CMV mode of ventilation. -even on ASV patient is breathing only 7-8 times a minute 03/13: Off Precedex infusion overnight, placed patient on pressure support ventilation 04/17, initially did well but not significantly tachycardic and tachypneic and in respiratory distress, patient was placed back on CMV mode of ventilation and low-dose was 03/14 8/5 PSV SBT done for more than 1 hour. RSBI, ABG and Vitals acceptable. Pt awake and following commands. Patient was extubated. Initially patient did well and was on nasal cannula and was able to communicate. Over 12 hours patient became more hypoxic with increased respiratory distress and tachypnea. I spoke to patient post extubation and was agreeable to re-intubation if needed and stated that 'he is not ready to ' and 'do what ever it takes'. He was re intubated at night. I also mentioned to him that he may need tracheostomy and PEG tube placement if he gets we intubated and is not weanable. He told me 'to proceed with it if needed'. Solu-Medrol IV given for airway edema and will be continued for 24 hours -completed course of Solu-Medrol -continue bronchodilators -CT scan shows large pleural effusions bilaterally. I will request IR for thoracentesis.. Patient is on minimal ventilator setting but has failed trials initially multiple times and then once extubated he was reintubated within 12 hours. I will treat try again after thoracentesis to see patient is weanable from the vent otherwise will proceed with trach and PEG as patient has been on ventilator for more than 2 weeks. 03/17 right thoracentesis 1 L fluid was removed 03/18 left thoracentesis 550 mL fluid was removed Will also continue diuretics. 03/19 patient was extubated after weaning trial 03/20 continue nasal cannula, BiPAP p.r.n., hold diuretics, incentive spirometry, spoke to patient after extubation yesterday he is willing to be intubated if needed and proceed with trach and PEG if needed hopefully we can avoid that situation 03/21 patient continues to require BiPAP intermittently and tolerates nasal cannula. He appears quite weak although he does have borderline cough. Cont inue incentive spirometry. P.r.n. BiPAP. BiPAP at night. Nasal cannula as tolerated. Patient remains at risk of requiring intubation. I spoke to patient again and mention that to him and he verbalized understanding by noting his head. I will check chest x-ray. Continue ICU monitoring 03/22 discussed with the patient emphasized importance of using BiPAP for increased work of breathing and at night due to his deconditioning and weakness. He is currently saturating on nasal cannula and appears not in any respiratory distress. later patient deteriorated and required re-intubation 03/23 ABG and chest x-ray. patient has failed extubation twice and has been on ventilator for close to 20 days. Patient is awaiting trach now . ENT consulted ABG and chest x-ray reviewed. Continue mechanical ventilation. tracheostomy planned May have to transfer to another hospital for tracheostomy if ENT coverage is not available here. (2) Elevated LFTs: Code(s): R79.89 - Other specified abnormal findings of blood chemistry Status: Acute Assessment and Plan: 03/13: Significant elevation in LFTs, AST 2280, ALT 988, alk-phos 722 -patient has been hemodynamically stable, no hypotension noted in the last 24-48 hours -statin discontinued. Hold Tylenol -no tenderness in the right upper, lower quadrant or epigastric region on exam -negative vital hepatitis panel, right upper quadrant ultrasound with Doppler negative for hepatic or portal vein thrombosis -patient evaluated by GI -levels now improved. Monitor (3) Cardiac arrest with pulseless electrical activity: Code(s): I46.9 - Cardiac arrest, cause unspecified Status: Acute Assessment and Plan: Cardiac arrest, secondary to unknown etiology. Possible aspiration pneumonia, NSTEMI, hypoxia, septic shock, infection -see code blue sheet for the details -patient currently intubated, vasopressors for blood pressure support have been weaned off -appreciate cardiology following the patient 02/29/2024 echocardiogram Summary 1. Technically difficult study with limited views. 2. Left ventricular chamber dimension is normal. 3. Left ventricular systolic function is mildly reduced, estimated at 45-50%. The apex appears to be hypokinetic. 4. There is mildly increased left ventricular wall thickness. 5. The left ventricular diastolic function is grade I diastolic dysfunction. 6. Right ventricular systolic function is normal. 7. Left atrial chamber dimension is moderately enlarged. 8. There is mild to moderate tricuspid valve regurgitation. 9. There is small anterior pericardial effusion. (4) Septic shock: Code(s): A41.9 - Sepsis, unspecified organism; R65.21 - Severe sepsis with septic shock Status: Acute Assessment and Plan: Resolved Patient in shock, likely related to the gangrene, aspiration pneumonia, status post cardiac arrest 02/28/2024: Blood cultures have been obtained and negative Off vasopressors and IV fluids Status post 10 days of antibiotics 03/16 low-grade fever increase in WBC CT scan as above, repeat blood cultures and sputum pending UA suggestive of UTI. Urine cultures pending. Ha has been changed. Completed course of cefepime (5) NSTEMI (non-ST elevated myocardial infarction): Code(s): I21.4 - Non-ST elevation (NSTEMI) myocardial infarction Status: Acute Assessment and Plan: -appreciate cardiology evaluation and recommendation -Continue aspirin and high-dose a statin -will hold Brilinta. Resumption per General surgery - beta-brayden, losartan are on hold due to soft blood pressure. Will resume beta-brayden -03/02 heparin infusion was discontinued after 48 hours for NSTEMI by cardiology (6) Gangrene of right foot: Code(s): I96 - Gangrene, not elsewhere classified Status: Acute Assessment and Plan: CTA showed peripheral arterial disease with total occlusion of the right anterior and posterior tibial arteries and right peroneal artery with distal reconstitution of peroneal artery. This extensive gangrene of the right foot with gas seen on CT of the foot. General surgery spoke to the patient in the ER on the day of admission on 02/27 patient at that time agreed for below-knee amputation. Plan was to do a below- knee amputation on 02/29/2024 but patient had a cardiac arrest that night secondary to sepsis. Surgery at that time was deferred. Patient now is intubated sedated and unable to sign his consent.. Patient has no family and [facility]. He has 1 son which no one has been able to get hold off right several attempts. Considering patient has gangrene of the foot with no vascular supply leading to sepsis and if untreatable lead to his , Dr. Johns will proceed with amputation today, 03/05/2024. Dr. Collins and Dr. Johns has signed 2 physician consent considering patient's clearly expressed wishes prior to cardiac arrest at the time of admission, his current situation and inability to sign the consent form by himself at this time. 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 -complete 5 days of clindamycin 03/13: Discussed with surgery, there is flexion contractures of his amputation which may hinder in him getting prosthetics, patient may require above knee amputation (7) Osteomyelitis of toe of right foot: Code(s): M86.9 - Osteomyelitis, unspecified Status: Chronic Assessment and Plan: As above (8) Peripheral vascular disease: Code(s): I73.9 - Peripheral vascular disease, unspecified Status: Chronic Assessment and Plan: Patient has history of peripheral vascular disease, coronary artery disease -started on aspirin, patient will require Brilinta since he had a STEMI in 2020 but currently holding Brilinta due to surgery and bleeding (9) Type 2 diabetes mellitus: Qualifiers: 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 complication status: with other specified complication 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 correction insulin use: with intermediate accountant use Qualified Code(s): E11.69 - Type 2 diabetes mellitus with other specified complication; Z79.4 - intermediate accountant (current) use of insulin Code(s): E11.9 - Type 2 diabetes mellitus without complications Status: Acute Assessment and Plan: Currently on sliding scale insulin, Accu-Cheks Hemoglobin A1c this admission is 8.2 (10) Chronic obstructive pulmonary disease: Code(s): J44.9 - Chronic obstructive pulmonary disease, unspecified Status: Chronic Assessment and Plan: Continue DuoNebs -continue Symbicort (11) Electrolyte abnormality: Code(s): E87.8 - Other disorders of electrolyte and fluid balance, not elsewhere classified Status: Acute Assessment and Plan: Hypernatremia, hold diuretics. continue free water flush. Sodium improving (12) Ileus: Code(s): K56.7 - Ileus, unspecified Status: Acute Assessment and Plan: CT scan shows significant amount of tube feeds collected in the stomach. Patient also had high residuals. Patient has already been on Reglan. Bowel sounds are present but decreased. tube feeds restarted after PEG placement (13) Sinus tachycardia: Code(s): R00.0 - Tachycardia, unspecified Status: Acute Assessment and Plan: Does not appear in any respiratory distress. Continue BiPAP p.r.n.. beta-brayden held due to low blood pressure (14) Dysphagia: Code(s): R13.10 - Dysphagia, unspecified Status: Acute Assessment and Plan: Patient failed his bedside swallow evaluation and a modified barium swallow study prior to re-intubation which showed aspiration of thin liquids and pudding 03/24 PEG tube inserted. Tube feeds resumed (15) DVT (deep venous thrombosis): Code(s): I82.409 - Acute embolism and thrombosis of unspecified deep veins of unspecified lower extremity Status: Acute Assessment and Plan: ultrasound shows clot surrounding the PICC line in the right upper extremity PICC line working and will be left in place for now Continue Lovenox at therapeutic dose Plan DVT prophylaxis: Lovenox therapeutic dose Stress ulcer prophylaxis: Protonix Nutrition: tube feeds ordered Code Status: Full code. PEG tube done. Patient awaits tracheostomy placement Subjective Date/time seen: 03/25/24 12:44 Interval history: Patient still intubated and Awaiting ENT for trach vs transfer, patient has been reintubated twice the past 25 days of admission s/p BKA, right Review of Systems Review of Systems: 12 systems were reviewed and are negativ e except for as per HPI. All systems reviewed & are unremarkable except as noted in HPI and below (HPI) ROS unobtainable: Yes unobtainable due to endotracheal tube, unobtainable due to medical condition and unobtainable due to mental status Exam Narrative: General: Patient intubated sedated and in no acute distress HEENT:, pupils are equal and reactive from a sclera is clear Neck:? supple Respiratory:? Coarse breath sounds bilaterally, decreased at bases, adequate air entry, no wheezing Cardiac:? S1-S2 normal, regular rate and rhythm Abdomen:? Soft, nontender, nondistended, bowel sounds are decreased but present Extremities:? Right BKA stump under the dressing. Left dorsalis pedis is dopplerable Neuro:? Patient is wakes up on stimulation and calling his name and is nodes his head but quickly falls back to sleep, he is sedated, not following commands today. He is overall generalized weak Skin:? Patient has maceration of his perianal area, pressure ulcer on his buttocks. Psych:? Normal speech and affect Objective Data Vital Signs Vital Signs: Vital Signs - 24 hr 03/24/24 12:49 03/24/24 13:47 03/24/24 13:47 Temperature 99 F Pulse Rate 97 96 96 Respiratory Rate 15 19 Blood Pressure 103/57 L Pulse Oximetry 98 97 Oxygen Delivery Mechanical Ventilation Mechanical Ventilation Fraction of Inspired Oxygen 30 03/24/24 14:00 03/24/24 14:00 03/24/24 14:00 Temperature Pulse Rate 96 96 97 Respiratory Rate 16 16 Blood Pressure 90/54 L Pulse Oximetry 98 Oxygen Delivery Fraction of Inspired Oxygen 03/24/24 16:00 03/24/24 16:00 03/24/24 16:43 Temperature Pulse Rate 96 100 Respiratory Rate 16 Blood Pressure Pulse Oximetry 98 100 Oxygen Delivery Mechanical Ventilation Mechanical Ventilation Fraction of Inspired Oxygen 30 30 30 03/24/24 16:00 03/24/24 16:00 03/24/24 14:00 Temperature 98.8 F Pulse Rate 104 H 108 H 96 Respiratory Rate 17 16 Blood Pressure 105/74 Pulse Oximetry 99 Oxygen Delivery Fraction of Inspired Oxygen 03/24/24 16:00 03/24/24 14:00 03/24/24 16:00 Temperature Pulse Rate 108 H 96 100 Respiratory Rate 17 16 17 Blood Pressure Pulse Oximetry Oxygen Delivery Fraction of Inspired Oxygen 03/24/24 18:00 03/24/24 18:00 03/24/24 18:00 Temperature 98.5 F Pulse Rate 98 95 95 Respiratory Rate 15 15 Blood Pressure 96/56 L Pulse Oximetry 100 Oxygen Delivery Fraction of Inspired Oxygen 03/24/24 18:00 03/24/24 20:00 03/24/24 20:00 Temperature 98.6 F Pulse Rate 95 102 H 102 H Respiratory Rate 15 19 18 Blood Pressure 106/61 Pulse Oximetry 100 Oxygen Delivery Fraction of Inspired Oxygen 03/24/24 20:00 03/24/24 20:15 03/24/24 20:30 Temperature Pulse Rate 102 H 96 Respiratory Rate 19 16 Blood Pressure Pulse Oximetry 100 Oxygen Delivery Mechanical Ventilation Fraction of Inspired Oxygen 30 30 03/24/24 20:00 03/24/24 20:25 03/24/24 20:25 Temperature Pulse Rate 102 H 96 98 Respiratory Rate 16 Blood Pressure Pulse Oximetry 100 Oxygen Delivery Mechanical Ventilation Fraction of Inspired Oxygen 30 03/24/24 20:45 03/24/24 22:00 03/24/24 22:00 Temperature 98.9 F Pulse Rate 99 96 96 Respiratory Rate 16 16 Blood Pressure 95/56 L Pulse Oximetry 100 Oxygen Delivery Fraction of Inspired Oxygen 03/24/24 22:00 03/24/24 22:10 03/24/24 23:02 Temperature Pulse Rate 96 96 103 H Respiratory Rate 16 16 20 Blood Pressure Pulse Oximetry Oxygen Delivery Fraction of Inspired Oxygen 03/24/24 23:28 03/25/24 00:00 03/25/24 00:00 Temperature 99.1 F Pulse Rate 99 94 95 Respiratory Rate 16 16 Blood Pressure 90/52 L Pulse Oximetry 98 99 Oxygen Delivery Mechanical Ventilation Fraction of Inspired Oxygen 30 03/25/24 00:00 03/25/24 00:00 03/25/24 00:10 Temperature Pulse Rate 95 95 Respiratory Rate 16 16 Blood Pressure Pulse Oximetry 99 Oxygen Delivery Mechanical Ventilation Fraction of Inspired Oxygen 30 30 03/25/24 00:00 03/25/24 02:00 03/25/24 02:00 Temperature 99 F Pulse Rate 94 96 96 Respiratory Rate 16 Blood Pressure 90/52 L Pulse Oximetry 97 Oxygen Delivery Fraction of Inspired Oxygen 03/25/24 02:24 03/25/24 02:25 03/25/24 02:00 Temperature Pulse Rate 95 94 96 Respiratory Rate 17 16 Blood Pressure Pulse Oximetry 98 Oxygen Delivery Mechanical Ventilation Fraction of Inspired Oxygen 30 03/25/24 02:00 03/25/24 03:52 03/25/24 04:00 Temperature Pulse Rate 96 94 Respiratory Rate 16 17 Blood Pressure Pulse Oximetry 98 Oxygen Delivery Mechanical Ventilation Fraction of Inspired Oxygen 30 30 03/25/24 04:00 03/25/24 04:00 03/25/24 04:00 Temperature 99 F Pulse Rate 93 93 93 Respiratory Rate 16 16 16 Blood Pressure 91/57 L Pulse Oximetry 98 Oxygen Delivery Fraction of Inspired Oxygen 03/25/24 04:00 03/25/24 05:33 03/25/24 06:00 Temperature Pulse Rate 94 104 H 108 H Respiratory Rate Blood Pressure Pulse Oximetry 95 Oxygen Delivery Mechanical Ventilation Fraction of Inspired Oxygen 30 03/25/24 06:00 03/25/24 06:00 03/25/24 06:03 Temperature 98.8 F Pulse Rate 108 H 108 H 108 H Respiratory Rate 23 H 21 H 21 H Blood Pressure 101/59 L Pulse Oximetry 98 Oxygen Delivery Fraction of Inspired Oxygen 03/25/24 07:45 03/25/24 07:45 03/25/24 07:58 Temperature Pulse Rate 96 96 97 Respiratory Rate 17 16 Blood Pressure Pulse Oximetry 97 Oxygen Delivery Mechanical Ventilation Fraction of Inspired Oxygen 30 03/25/24 07:58 03/25/24 07:58 03/25/24 08:28 Temperature Pulse Rate 97 97 99 Respiratory Rate 16 16 16 Blood Pressure Pulse Oximetry Oxygen Delivery Fraction of Inspired Oxygen 03/25/24 08:28 03/25/24 08:00 03/25/24 08:00 Temperature 99.0 F Pulse Rate 99 97 Respiratory Rate 16 16 Blood Pressure 93/57 L Pulse Oximetry 96 96 Oxygen Delivery Mechanical Ventilation Fraction of Inspired Oxygen 30 03/25/24 08:00 03/25/24 08:00 03/25/24 10:00 Temperature Pulse Rate 96 97 Respiratory Rate Blood Pressure Pulse Oximetry Oxygen Delivery Fraction of Inspired Oxygen 30 03/25/24 10:00 03/25/24 10:00 03/25/24 10:00 Temperature 99.3 F Pulse Rate 97 97 97 Respiratory Rate 16 16 16 Blood Pressure 94/56 L Pulse Oximetry 97 Oxygen Delivery Fraction of Inspired Oxygen 03/25/24 10:50 03/25/24 12:00 03/25/24 12:00 Temperature Pulse Rate 99 99 99 Respiratory Rate 16 16 Blood Pressure Pulse Oximetry 97 Oxygen Delivery Mechanical Ventilation Fraction of Inspired Oxygen 30 03/25/24 12:00 03/25/24 12:00 03/25/24 12:00 Temperature Pulse Rate 95 Respiratory Rate Blood Pressure Pulse Oximetry 98 Oxygen Delivery Mechanical Ventilation Fraction of Inspired Oxygen 30 30 03/25/24 12:00 Temperature 99.6 F Pulse Rate 99 Respiratory Rate 16 Blood Pressure 94/61 L Pulse Oximetry 98 Oxygen Delivery Fraction of Inspired Oxygen Intake/Output Intake/Output: Intake & Output 03/22/24 03/23/24 03/24/24 03/25/24 23:59 23:59 23:59 23:59 Intake Total 239.6 1884.3 1446.0 1576.4 Output Total 625 775 925 375 Balance -385.4 1109.3 521.0 1201.4 Meds/Results Medications: Active Medications Generic Name Dose Route Start Last Admin Trade Name Freq PRN Reason Stop Dose Admin Acetaminophen 650 mg 03/25/24 12:39 Acetaminophen Elixir 325 Mg/10.15 Ml Udc PO Q4H PRN Mild Pain (1-3) or Fever Albuterol/Ipratropium 3 ml 02/29/24 02:00 03/25/24 07:45 Ipratropium 0.5 Mg/Albuterol Sulfate 2.5 Mg Ampul.Neb 3 Ml INHALATION 3 ml Q6HRT JASON Administration Alteplase, Recombinant 2 mg 03/06/24 09:45 03/22/24 16:56 Alteplase 2 Mg Vial (Cathflo) IV PUSH 2 mg ONCE PRN Administration Line Occlusion Aspirin 81 mg 03/09/24 08:00 03/25/24 08:24 Aspirin 81 Mg Chewable Tablet FEED TUBE 81 mg DAILY@0800 [facility] Administration Bisacodyl 10 mg 03/24/24 07:31 03/24/24 16:04 Bisacodyl 10 Mg Suppository RECTAL 10 mg QAM PRN Administration Constipation Dextrose 12.5 gm 02/28/24 19:23 Dextrose 50% 25 Gm/50 Ml Syringe IV PUSH PRN PRN Hypoglycemia Protocol Enoxaparin Sodium 90 mg 03/23/24 07:45 03/25/24 08:24 Enoxaparin 100 Mg/Ml Syringe SUB-Q 90 mg Q12HR JASON Administration Glucagon 1 mg 02/28/24 19:23 Glucagon For Inj 1 Mg Vial IM PRN PRN Hypoglycemia Protocol Glucose 15 gm 03/08/24 10:19 Glucose Oral Gel 15 Gm Of Glucse In 37.5 Gm Tube FEED TUBE PRN PRN Hypoglycemia Protocol Dextrose 1,000 mls @ 100 mls/hr 02/28/24 19:23 Dextrose 5% 1,000 Ml IVPB PRN PRN Hypoglycemia Protocol Fentanyl Citrate 2,500 mcg in 250 mls @ 10 mls/hr 03/22/24 12:15 03/25/24 12:00 Fentanyl 2,500 Mcg/Ns 250 Ml IV CONT 100 mcg/hr .Q25H JASON 10 mls/hr Titration Protocol 100 MCG/HR Midazolam HCl 100 mg in 100 mls @ 2 mls/hr 03/22/24 12:15 03/25/24 12:00 Versed 100 Mg/Ns 100 Ml IV CONT 2 mg/hr .Q50H JASON 2 mls/hr Titration Protocol 2 MG/HR Insulin Aspart 3 - 6 units 03/15/24 17:00 03/25/24 12:19 Insulin Aspart (*Bkc) 100 Units/Ml SUB-Q Not Given Q4HR JASON Protocol Insulin Glargine 55 units 03/15/24 09:00 03/16/24 10:44 Insulin Glargine (*Bkc) 100 Units/Ml SUB-Q 55 units DAILY JASON Administration Labetalol HCl 20 mg 03/08/24 10:06 03/08/24 16:48 Labetalol Hcl Inj 100 Mg/20 Ml Vial IV PUSH 20 mg Q4H PRN Administration SBP > 160 and HR> 60 -1st choice Morphine Sulfate 2 mg 03/19/24 19:39 03/21/24 20:36 Morphine Sulfate (*Crx) 2 Mg/Ml Inj IV PUSH 2 mg Q2HR PRN Administration Pain Rated 7-10 Multi-Ingred Cream/Lotion/Oil/Oint 1 applic 03/22/24 21:00 03/25/24 08:28 Mineral Oil/White Petrolatum Ointment EACH EYE 1 applic Q12HR JASON Administration Pantoprazole Sodium 40 mg 03/02/24 09:00 03/25/24 08:26 Pantoprazole Sodium Iv 40 Mg Vial IV PUSH 40 mg Q12HR JASON Administration Polyethylene Glycol 17 gm 03/24/24 09:00 03/25/24 08:26 Polyethylene Glycol 3350 17 Gm Powd.Pack PO 17 gm QAM JASON Administration Sodium Chloride 10 ml 02/29/24 06:00 03/25/24 05:04 Central Line Flush IV PUSH 10 ml Q8HR JASON Administration Sodium Chloride 20 ml 02/28/24 23:37 Central Line Flush IV PUSH PRN PRN after blood draws Sodium Chloride 20 ml 03/21/24 08:57 Central Line Flush IV PUSH PRN PRN after blood draws Sodium Chloride 10 ml 03/21/24 08:57 Central Line Flush IV PUSH PRN PRN with TPN bag changes Sodium Chloride 10 ml 03/21/24 14:00 03/25/24 05:05 Central Line Flush IV PUSH 10 ml Q8HR JASON Administration Radiology Results: ITS Impressions Lower Extremity CTA 02/28/24 14:54 IMPRESSION: 1. 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 2. Moderate stenosis of right popliteal artery. 3. Osteomyelitis involving first proximal and distal phalanges and head of first metatarsal. Head CT 02/29/24 05:55 Impression: No intracranial hemorrhage, mass, or acute infarct. Stable chronic encephalomalacia in the high left parietal lobe. Atrophy and chronic white matter changes, as above. Chest/Abdomen/Pelvis CTA 02/29/24 06:02 Impression: Extensive right upper lobe consolidation and more mild right middle lobe consolidation, consistent with pneumonia. Consider aspiration pneumonia. Moderate to large right pleural effusion with complete atelectasis of the right lower lobe. Moderate left pleural effusion with minimal left basilar atelectasis. Small pericardial effusion. No definite acute abnormality in the abdomen or pelvis. Chronic compression fractures, as above. Renal Ultrasound 03/03/24 15:45 IMPRESSION: 1. Normal kidneys without hydronephrosis. 2. Small amount of ascites in the abdomen and pelvis. Abdomen Ultrasound 03/13/24 16:52 IMPRESSION: 1. No etiology for abnormal liver function tests. 2. Normal hepatic veins and main portal vein. Right and left portal veins and proper hepatic artery not evaluated. 3. Right pleural effusion. Vascular Ultrasound 03/13/24 16:52 IMPRESSION: 1. No etiology for abnormal liver function tests. 2. Normal hepatic veins and main portal vein. Right and left portal veins and proper hepatic artery not evaluated. 3. Right pleural effusion. Chest/Abdomen/Pelvis CT 03/16/24 21:51 IMPRESSION: Anasarca Large pleural effusions with prominent compressive atelectasis of the lower lobes especially, dependent atelectasis of the middle and upper lobes Heart size. Prominent coronary artery atherosclerotic calcifications Minimal pericardial effusion Prominent diffuse thickening of urinary bladder wall suggesting cystitis area Ha catheter in bladder lumen Very prominent amount of fluid and large fluid level within the stomach despite presence of NG tube T11 and L1 moderate anterior wedge compression fractures, likely chronic Thoracentesis Ultrasound 03/18/24 10:27 IMPRESSION: 1. Successful ultrasound-guided thoracentesis yielding 550 mL of doris-colored fluid. Modified Barium Swallow 03/21/24 15:25 IMPRESSION: 1. Aspiration of thin liquids and pudding. 2. Please refer to the speech therapy report for recommendations. Tube Placement 03/22/24 11:33 IMPRESSION: 1. Fluoroscopy guided nasoenteric tube placement with tip in the stomach. Abdomen X-Ray 03/22/24 12:47 IMPRESSION: 1. Nasogastric tube tip in the stomach. 2. Nasoenteric tube tip in the stomach. Venous Doppler Study 03/22/24 16:38 IMPRESSION: Nonocclusive right subclavian vein thrombus. No additional deep venous thrombosis detected in the remaining bilateral upper extremity veins. Chest X-Ray 03/25/24 06:17 Impression: Moderate right pleural effusion and small left pleural effusion with probable moderate pulmonary edema. Support tubes, as above. Labs Labs: Laboratory Results - last 24 hr 03/24/24 03/24/24 03/24/24 13:01 16:59 19:57 WBC RBC Hgb Hct MCV MCH MCHC RDW Plt Count MPV Puncture Site ABG pH ABG pCO2 ABG pO2 ABG PO2/FiO2 Ratio ABG HCO3 ABG O2 Saturation ABG O2 Content ABG Base Excess A-a Gradient Oxyhemoglobin Carboxyhemoglobin Methemoglobin Reduced Hemoglobin Total Hemoglobin O2 Delivery Device O2 Liters/Min Minute Volume Vent Rate Vent Mode FiO2 Tidal Volume PEEP Peak Inspir Pressure Pressure Support Sodium Potassium Chloride Carbon Dioxide Anion Gap BUN Creatinine Estim Creat Clear Calc Estimated GFR Glucose POC Capillary Glucose 144 H 142 H 132 H Calcium Magnesium Total Bilirubin AST ALT Alkaline Phosphatase Total Protein Albumin 03/25/24 03/25/24 03/25/24 00:55 04:59 05:03 WBC 7.5 RBC 2.89 L Hgb 8.1 L Hct 28.3 L MCV 97.9 MCH 28.0 MCHC 28.6 L RDW 19.2 H Plt Count 211 MPV 9.9 Puncture Site ABG pH ABG pCO2 ABG pO2 ABG PO2/FiO2 Ratio ABG HCO3 ABG O2 Saturation ABG O2 Content ABG Base Excess A-a Gradient Oxyhemoglobin Carboxyhemoglobin Methemoglobin Reduced Hemoglobin Total Hemoglobin O2 Delivery Device O2 Liters/Min Minute Volume Vent Rate Vent Mode FiO2 Tidal Volume PEEP Peak Inspir Pressure Pressure Support Sodium 145 Potassium 4.1 Chloride 111 H Carbon Dioxide 31 H Anion Gap 3 L BUN 18 Creatinine 0.80 Estim Creat Clear Calc 79 Estimated GFR > 60 Glucose 157 H POC Capillary Glucose 161 H 149 H Calcium 8.0 L Magnesium 2.2 Total Bilirubin 0.6 AST 26 ALT 24 Alkaline Phosphatase 133 H Total Protein 6.0 L Albumin 2.7 L 03/25/24 03/25/24 03/25/24 05:19 08:22 12:13 WBC RBC Hgb Hct MCV MCH MCHC RDW Plt Count MPV Puncture Site Right radial ABG pH 7.413 ABG pCO2 44.1 ABG pO2 82.4 ABG PO2/FiO2 Ratio 2.75 ABG HCO3 27.5 H ABG O2 Saturation 96.2 ABG O2 Content 11.7 L ABG Base Excess 2.6 A-a Gradient 79.7 Oxyhemoglobin 94.9 Carboxyhemoglobin 1.5 Methemoglobin 0.1 Reduced Hemoglobin 3.5 Total Hemoglobin 8.7 L O2 Delivery Device Ventilator O2 Liters/Min Not Reportable Minute Volume Not Reportable Vent Rate 16 Vent Mode Cmv FiO2 30 Tidal Volume 380 PEEP 8 Peak Inspir Pressure Not Reportable Pressure Support Not Reportable Sodium Potassium Chloride Carbon Dioxide Anion Gap BUN Creatinine Estim Creat Clear Calc Estimated GFR Glucose POC Capillary Glucose 169 H 159 H Calcium Magnesium Total Bilirubin AST ALT Alkaline Phosphatase Total Protein Albumin Quality VTE Prophylaxis VTE prophylaxis: pharmacologic ordered
--- NOTE | 2024-03-25 12:46 | PM.PNGS ---
Progress Note: A&P Assessment and Plan (1) Gangrene of right foot: Code(s): I96 - Gangrene, not elsewhere classified Status: Acute (2) Amputation of right lower extremity below knee: Qualifiers: Encounter type: subsequent encounter Qualified Code(s): S88.111D - Complete traumatic amputation at level between knee and ankle, right lower leg, subsequent encounter Code(s): S88.111A - Complete traumatic amputation at level between knee and ankle, right lower leg, initial encounter Status: Acute Assessment and Plan: Postop day #20 today. Will probably remove sutures later this week. Patient has an area of epithelial slough on the proximal aspect of the BKA stump as well as some bullae on the skin flap. No purulence, no sign of infection or flap ischemia. Knee immobilizer may be causing epithelial slough. Will discontinue knee immobilizer and just try to keep knee extended and pressure off the end of the BKA stump. Subjective Subjective Date/Time Seen: 03/25/24 12:46 Post Op day: #20 Patient reports: other (Patient re intubated) Interval history: Has had PEG tube placed. Plan is to have tracheostomy on Sunday03/31/2024 Review of Systems Review of Systems: ROS unobtainable: Yes unobtainable due to endotracheal tube Exam Const: General: patient obtunded Extrem: Right lower extremity: lower leg (Some epithelial slough but flap looks okay.) Details: no edema and other (Laterally some skin edges at incision appear dark but flap seems soft and appears to be healing); no localized swelling, no ecchymosis, no crepitus and no unusual warmth Objective Data Vital Signs Vital Signs: Vital Signs - 24 hr 03/24/24 12:49 03/24/24 13:47 03/24/24 13:47 Temperature 37.2 C Pulse Rate 97 96 96 Respiratory Rate 15 19 Blood Pressure 103/57 L Pulse Oximetry 98 97 Oxygen Delivery Mechanical Ventilation Mechanical Ventilation Fraction of Inspired Oxygen 30 03/24/24 14:00 03/24/24 14:00 03/24/24 14:00 Temperature Pulse Rate 96 96 97 Respiratory Rate 16 16 Blood Pressure 90/54 L Pulse Oximetry 98 Oxygen Delivery Fraction of Inspired Oxygen 03/24/24 16:00 03/24/24 16:00 03/24/24 16:43 Temperature Pulse Rate 96 100 Respiratory Rate 16 Blood Pressure Pulse Oximetry 98 100 Oxygen Delivery Mechanical Ventilation Mechanical Ventilation Fraction of Inspired Oxygen 30 30 30 03/24/24 16:00 03/24/24 16:00 03/24/24 14:00 Temperature 37.1 C Pulse Rate 104 H 108 H 96 Respiratory Rate 17 16 Blood Pressure 105/74 Pulse Oximetry 99 Oxygen Delivery Fraction of Inspired Oxygen 03/24/24 16:00 03/24/24 14:00 03/24/24 16:00 Temperature Pulse Rate 108 H 96 100 Respiratory Rate 17 16 17 Blood Pressure Pulse Oximetry Oxygen Delivery Fraction of Inspired Oxygen 03/24/24 18:00 03/24/24 18:00 03/24/24 18:00 Temperature 36.9 C Pulse Rate 98 95 95 Respiratory Rate 15 15 Blood Pressure 96/56 L Pulse Oximetry 100 Oxygen Delivery Fraction of Inspired Oxygen 03/24/24 18:00 03/24/24 20:00 03/24/24 20:00 Temperature 37.0 C Pulse Rate 95 102 H 102 H Respiratory Rate 15 19 18 Blood Pressure 106/61 Pulse Oximetry 100 Oxygen Delivery Fraction of Inspired Oxygen 03/24/24 20:00 03/24/24 20:15 03/24/24 20:30 Temperature Pulse Rate 102 H 96 Respiratory Rate 19 16 Blood Pressure Pulse Oximetry 100 Oxygen Delivery Mechanical Ventilation Fraction of Inspired Oxygen 30 30 03/24/24 20:00 03/24/24 20:25 03/24/24 20:25 Temperature Pulse Rate 102 H 96 98 Respiratory Rate 16 Blood Pressure Pulse Oximetry 100 Oxygen Delivery Mechanical Ventilation Fraction of Inspired Oxygen 30 03/24/24 20:45 03/24/24 22:00 03/24/24 22:00 Temperature 37.2 C Pulse Rate 99 96 96 Respiratory Rate 16 16 Blood Pressure 95/56 L Pulse Oximetry 100 Oxygen Delivery Fraction of Inspired Oxygen 03/24/24 22:00 03/24/24 22:10 03/24/24 23:02 Temperature Pulse Rate 96 96 103 H Respiratory Rate 16 16 20 Blood Pressure Pulse Oximetry Oxygen Delivery Fraction of Inspired Oxygen 03/24/24 23:28 03/25/24 00:00 03/25/24 00:00 Temperature 37.3 C Pulse Rate 99 94 95 Respiratory Rate 16 16 Blood Pressure 90/52 L Pulse Oximetry 98 99 Oxygen Delivery Mechanical Ventilation Fraction of Inspired Oxygen 30 03/25/24 00:00 03/25/24 00:00 03/25/24 00:10 Temperature Pulse Rate 95 95 Respiratory Rate 16 16 Blood Pressure Pulse Oximetry 99 Oxygen Delivery Mechanical Ventilation Fraction of Inspired Oxygen 30 30 03/25/24 00:00 03/25/24 02:00 03/25/24 02:00 Temperature 37.2 C Pulse Rate 94 96 96 Respiratory Rate 16 Blood Pressure 90/52 L Pulse Oximetry 97 Oxygen Delivery Fraction of Inspired Oxygen 03/25/24 02:24 03/25/24 02:25 03/25/24 02:00 Temperature Pulse Rate 95 94 96 Respiratory Rate 17 16 Blood Pressure Pulse Oximetry 98 Oxygen Delivery Mechanical Ventilation Fraction of Inspired Oxygen 30 03/25/24 02:00 03/25/24 03:52 03/25/24 04:00 Temperature Pulse Rate 96 94 Respiratory Rate 16 17 Blood Pressure Pulse Oximetry 98 Oxygen Delivery Mechanical Ventilation Fraction of Inspired Oxygen 30 30 03/25/24 04:00 03/25/24 04:00 03/25/24 04:00 Temperature 37.2 C Pulse Rate 93 93 93 Respiratory Rate 16 16 16 Blood Pressure 91/57 L Pulse Oximetry 98 Oxygen Delivery Fraction of Inspired Oxygen 03/25/24 04:00 03/25/24 05:33 03/25/24 06:00 Temperature Pulse Rate 94 104 H 108 H Respiratory Rate Blood Pressure Pulse Oximetry 95 Oxygen Delivery Mechanical Ventilation Fraction of Inspired Oxygen 30 03/25/24 06:00 03/25/24 06:00 03/25/24 06:03 Temperature 37.1 C Pulse Rate 108 H 108 H 108 H Respiratory Rate 23 H 21 H 21 H Blood Pressure 101/59 L Pulse Oximetry 98 Oxygen Delivery Fraction of Inspired Oxygen 03/25/24 07:45 03/25/24 07:45 03/25/24 07:58 Temperature Pulse Rate 96 96 97 Respiratory Rate 17 16 Blood Pressure Pulse Oximetry 97 Oxygen Delivery Mechanical Ventilation Fraction of Inspired Oxygen 30 03/25/24 07:58 03/25/24 07:58 03/25/24 08:28 Temperature Pulse Rate 97 97 99 Respiratory Rate 16 16 16 Blood Pressure Pulse Oximetry Oxygen Delivery Fraction of Inspired Oxygen 03/25/24 08:28 03/25/24 08:00 03/25/24 08:00 Temperature 37.2 C Pulse Rate 99 97 Respiratory Rate 16 16 Blood Pressure 93/57 L Pulse Oximetry 96 96 Oxygen Delivery Mechanical Ventilation Fraction of Inspired Oxygen 30 03/25/24 08:00 03/25/24 08:00 03/25/24 10:00 Temperature Pulse Rate 96 97 Respiratory Rate Blood Pressure Pulse Oximetry Oxygen Delivery Fraction of Inspired Oxygen 30 03/25/24 10:00 03/25/24 10:00 03/25/24 10:00 Temperature 37.4 C Pulse Rate 97 97 97 Respiratory Rate 16 16 16 Blood Pressure 94/56 L Pulse Oximetry 97 Oxygen Delivery Fraction of Inspired Oxygen 03/25/24 10:50 03/25/24 12:00 03/25/24 12:00 Temperature Pulse Rate 99 99 99 Respiratory Rate 16 16 Blood Pressure Pulse Oximetry 97 Oxygen Delivery Mechanical Ventilation Fraction of Inspired Oxygen 30 03/25/24 12:00 03/25/24 12:00 03/25/24 12:00 Temperature Pulse Rate 95 Respiratory Rate Blood Pressure Pulse Oximetry 98 Oxygen Delivery Mechanical Ventilation Fraction of Inspired Oxygen 30 30 03/25/24 12:00 Temperature 37.6 C Pulse Rate 99 Respiratory Rate 16 Blood Pressure 94/61 L Pulse Oximetry 98 Oxygen Delivery Fraction of Inspired Oxygen Intake/Output Intake/Output: Intake & Output 03/22/24 03/23/24 03/24/24 03/25/24 23:59 23:59 23:59 23:59 Intake Total 239.6 1884.3 1446.0 1576.4 Output Total 625 775 925 375 Balance -385.4 1109.3 521.0 1201.4 Meds/Results Medications: Active Medications Generic Name Dose Route Start Last Admin Trade Name Freq PRN Reason Stop Dose Admin Acetaminophen 650 mg 03/25/24 12:39 Acetaminophen Elixir 325 Mg/10.15 Ml Udc PO Q4H PRN Mild Pain (1-3) or Fever Albuterol/Ipratropium 3 ml 02/29/24 02:00 03/25/24 07:45 Ipratropium 0.5 Mg/Albuterol Sulfate 2.5 Mg Ampul.Neb 3 Ml INHALATION 3 ml Q6HRT JASON Administration Alteplase, Recombinant 2 mg 03/06/24 09:45 03/22/24 16:56 Alteplase 2 Mg Vial (Cathflo) IV PUSH 2 mg ONCE PRN Administration Line Occlusion Aspirin 81 mg 03/09/24 08:00 03/25/24 08:24 Aspirin 81 Mg Chewable Tablet FEED TUBE 81 mg DAILY@0800 JASON Administration Bisacodyl 10 mg 03/24/24 07:31 03/24/24 16:04 Bisacodyl 10 Mg Suppository RECTAL 10 mg QAM PRN Administration Constipation Dextrose 12.5 gm 02/28/24 19:23 Dextrose 50% 25 Gm/50 Ml Syringe IV PUSH PRN PRN Hypoglycemia Protocol Enoxaparin Sodium 90 mg 03/23/24 07:45 03/25/24 08:24 Enoxaparin 100 Mg/Ml Syringe SUB-Q 90 mg Q12HR JASON Administration Glucagon 1 mg 02/28/24 19:23 Glucagon For Inj 1 Mg Vial IM PRN PRN Hypoglycemia Protocol Glucose 15 gm 03/08/24 10:19 Glucose Oral Gel 15 Gm Of Glucse In 37.5 Gm Tube FEED TUBE PRN PRN Hypoglycemia Protocol Dextrose 1,000 mls @ 100 mls/hr 02/28/24 19:23 Dextrose 5% 1,000 Ml IVPB PRN PRN Hypoglycemia Protocol Fentanyl Citrate 2,500 mcg in 250 mls @ 10 mls/hr 03/22/24 12:15 03/25/24 12:00 Fentanyl 2,500 Mcg/Ns 250 Ml IV CONT 100 mcg/hr .Q25H JASON 10 mls/hr Titration Protocol 100 MCG/HR Midazolam HCl 100 mg in 100 mls @ 2 mls/hr 03/22/24 12:15 03/25/24 12:00 Versed 100 Mg/Ns 100 Ml IV CONT 2 mg/hr .Q50H JASON 2 mls/hr Titration Protocol 2 MG/HR Insulin Aspart 3 - 6 units 03/15/24 17:00 03/25/24 12:19 Insulin Aspart (*Bkc) 100 Units/Ml SUB-Q Not Given Q4HR [facility] Protocol Insulin Glargine 55 units 03/15/24 09:00 03/16/24 10:44 Insulin Glargine (*Bkc) 100 Units/Ml SUB-Q 55 units DAILY JASON Administration Labetalol HCl 20 mg 03/08/24 10:06 03/08/24 16:48 Labetalol Hcl Inj 100 Mg/20 Ml Vial IV PUSH 20 mg Q4H PRN Administration SBP > 160 and HR> 60 -1st choice Morphine Sulfate 2 mg 03/19/24 19:39 03/21/24 20:36 Morphine Sulfate (*Crx) 2 Mg/Ml Inj IV PUSH 2 mg Q2HR PRN Administration Pain Rated 7-10 Multi-Ingred Cream/Lotion/Oil/Oint 1 applic 03/22/24 21:00 03/25/24 08:28 Mineral Oil/White Petrolatum Ointment EACH EYE 1 applic Q12HR JASON Administration Pantoprazole Sodium 40 mg 03/02/24 09:00 03/25/24 08:26 Pantoprazole Sodium Iv 40 Mg Vial IV PUSH 40 mg Q12HR JASON Administration Polyethylene Glycol 17 gm 03/24/24 09:00 03/25/24 08:26 Polyethylene Glycol 3350 17 Gm Powd.Pack PO 17 gm QAM JASON Administration Sodium Chloride 10 ml 02/29/24 06:00 03/25/24 05:04 Central Line Flush IV PUSH 10 ml Q8HR JASON Administration Sodium Chloride 20 ml 02/28/24 23:37 Central Line Flush IV PUSH PRN PRN after blood draws Sodium Chloride 20 ml 03/21/24 08:57 Central Line Flush IV PUSH PRN PRN after blood draws Sodium Chloride 10 ml 03/21/24 08:57 Central Line Flush IV PUSH PRN PRN with TPN bag changes Sodium Chloride 10 ml 03/21/24 14:00 03/25/24 05:05 Central Line Flush IV PUSH 10 ml Q8HR JASON Administration Radiology Results: ITS Impressions Lower Extremity CTA 02/28/24 14:54 IMPRESSION: 1. 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 2. Moderate stenosis of right popliteal artery. 3. Osteomyelitis involving first proximal and distal phalanges and head of first metatarsal. Head CT 02/29/24 05:55 Impression: No intracranial hemorrhage, mass, or acute infarct. Stable chronic encephalomalacia in the high left parietal lobe. Atrophy and chronic white matter changes, as above. Chest/Abdomen/Pelvis CTA 02/29/24 06:02 Impression: Extensive right upper lobe consolidation and more mild right middle lobe consolidation, consistent with pneumonia. Consider aspiration pneumonia. Moderate to large right pleural effusion with complete atelectasis of the right lower lobe. Moderate left pleural effusion with minimal left basilar atelectasis. Small pericardial effusion. No definite acute abnormality in the abdomen or pelvis. Chronic compression fractures, as above. Renal Ultrasound 03/03/24 15:45 IMPRESSION: 1. Normal kidneys without hydronephrosis. 2. Small amount of ascites in the abdomen and pelvis. Abdomen Ultrasound 03/13/24 16:52 IMPRESSION: 1. No etiology for abnormal liver function tests. 2. Normal hepatic veins and main portal vein. Right and left portal veins and proper hepatic artery not evaluated. 3. Right pleural effusion. Vascular Ultrasound 03/13/24 16:52 IMPRESSION: 1. No etiology for abnormal liver function tests. 2. Normal hepatic veins and main portal vein. Right and left portal veins and proper hepatic artery not evaluated. 3. Right pleural effusion. Chest/Abdomen/Pelvis CT 03/16/24 21:51 IMPRESSION: Anasarca Large pleural effusions with prominent compressive atelectasis of the lower lobes especially, dependent atelectasis of the middle and upper lobes Heart size. Prominent coronary artery atherosclerotic calcifications Minimal pericardial effusion Prominent diffuse thickening of urinary bladder wall suggesting cystitis area Ha catheter in bladder lumen Very prominent amount of fluid and large fluid level within the stomach despite presence of NG tube T11 and L1 moderate anterior wedge compression fractures, likely chronic Thoracentesis Ultrasound 03/18/24 10:27 IMPRESSION: 1. Successful ultrasound-guided thoracentesis yielding 550 mL of doris-colored fluid. Modified Barium Swallow 03/21/24 15:25 IMPRESSION: 1. Aspiration of thin liquids and pudding. 2. Please refer to the speech therapy report for recommendations. Tube Placement 03/22/24 11:33 IMPRESSION: 1. Fluoroscopy guided nasoenteric tube placement with tip in the stomach. Abdomen X-Ray 03/22/24 12:47 IMPRESSION: 1. Nasogastric tube tip in the stomach. 2. Nasoenteric tube tip in the stomach. Venous Doppler Study 03/22/24 16:38 IMPRESSION: Nonocclusive right subclavian vein thrombus. No additional deep venous thrombosis detected in the remaining bilateral upper extremity veins. Chest X-Ray 03/25/24 06:17 Impression: Moderate right pleural effusion and small left pleural effusion with probable moderate pulmonary edema. Support tubes, as above. Labs Labs: Laboratory Results - last 24 hr 03/24/24 03/24/24 03/24/24 13:01 16:59 19:57 WBC RBC Hgb Hct MCV MCH MCHC RDW Plt Count MPV Puncture Site ABG pH ABG pCO2 ABG pO2 ABG PO2/FiO2 Ratio ABG HCO3 ABG O2 Saturation ABG O2 Content ABG Base Excess A-a Gradient Oxyhemoglobin Carboxyhemoglobin Methemoglobin Reduced Hemoglobin Total Hemoglobin O2 Delivery Device O2 Liters/Min Minute Volume Vent Rate Vent Mode FiO2 Tidal Volume PEEP Peak Inspir Pressure Pressure Support Sodium Potassium Chloride Carbon Dioxide Anion Gap BUN Creatinine Estim Creat Clear Calc Estimated GFR Glucose POC Capillary Glucose 144 H 142 H 132 H Calcium Magnesium Total Bilirubin AST ALT Alkaline Phosphatase Total Protein Albumin 03/25/24 03/25/24 03/25/24 00:55 04:59 05:03 WBC 7.5 RBC 2.89 L Hgb 8.1 L Hct 28.3 L MCV 97.9 MCH 28.0 MCHC 28.6 L RDW 19.2 H Plt Count 211 MPV 9.9 Puncture Site ABG pH ABG pCO2 ABG pO2 ABG PO2/FiO2 Ratio ABG HCO3 ABG O2 Saturation ABG O2 Content ABG Base Excess A-a Gradient Oxyhemoglobin Carboxyhemoglobin Methemoglobin Reduced Hemoglobin Total Hemoglobin O2 Delivery Device O2 Liters/Min Minute Volume Vent Rate Vent Mode FiO2 Tidal Volume PEEP Peak Inspir Pressure Pressure Support Sodium 145 Potassium 4.1 Chloride 111 H Carbon Dioxide 31 H Anion Gap 3 L BUN 18 Creatinine 0.80 Estim Creat Clear Calc 79 Estimated GFR > 60 Glucose 157 H POC Capillary Glucose 161 H 149 H Calcium 8.0 L Magnesium 2.2 Total Bilirubin 0.6 AST 26 ALT 24 Alkaline Phosphatase 133 H Total Protein 6.0 L Albumin 2.7 L 03/25/24 03/25/24 03/25/24 05:19 08:22 12:13 WBC RBC Hgb Hct MCV MCH MCHC RDW Plt Count MPV Puncture Site Right radial ABG pH 7.413 ABG pCO2 44.1 ABG pO2 82.4 ABG PO2/FiO2 Ratio 2.75 ABG HCO3 27.5 H ABG O2 Saturation 96.2 ABG O2 Content 11.7 L ABG Base Excess 2.6 A-a Gradient 79.7 Oxyhemoglobin 94.9 Carboxyhemoglobin 1.5 Methemoglobin 0.1 Reduced Hemoglobin 3.5 Total Hemoglobin 8.7 L O2 Delivery Device Ventilator O2 Liters/Min Not Reportable Minute Volume Not Reportable Vent Rate 16 Vent Mode Cmv FiO2 30 Tidal Volume 380 PEEP 8 Peak Inspir Pressure Not Reportable Pressure Support Not Reportable Sodium Potassium Chloride Carbon Dioxide Anion Gap BUN Creatinine Estim Creat Clear Calc Estimated GFR Glucose POC Capillary Glucose 169 H 159 H Calcium Magnesium Total Bilirubin AST ALT Alkaline Phosphatase Total Protein Albumin
[2024-03-25 16:26] LABS: Glucose Point of Care 189 mg/dl (65-105)
[2024-03-25] MEDS: ACETAMINOPHEN ELIXIR 325 MG/10.15 ML UDC 650 MG PO (17:05)
--- NOTE | 2024-03-25 17:38 | P.PNGI_ITS ---
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 (3) Cardiac arrest with pulseless electrical activity: Code(s): I46.9 - Cardiac arrest, cause unspecified Status: Acute (4) Chronic obstructive pulmonary disease: Code(s): J44.9 - Chronic obstructive pulmonary disease, unspecified Status: Chronic (5) 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: Code(s): E11.9 - Type 2 diabetes mellitus without complications Status: Chronic Subjective Date/time seen: 03/25/24 17:39 Interval history: tolerating tube feeding at 60ml/h by peg tube no major changes, intubated and sedated Review of Systems Review of Systems: All systems reviewed & are unremarkable except as noted in HPI and below Exam Narrative: General: Patient intubated sedated and in no acute distress HEENT:, pupils are equal and reactive from a sclera is clear Neck:? supple Respiratory:? Coarse breath sounds bilaterally, no wheezing Cardiac:? S1-S2 normal, regular rate and rhythm Abdomen:? Soft, nontender, nondistended, + PEG in place Extremities:? Right BKA stump under the dressing. Neuro:? Patient wakes up on stimulation, he is sedated Skin:? Patient has maceration of his perianal area, pressure ulcer on his buttocks. Psych:? unable to assess Objective Data Vital Signs Vital Signs: Vital Signs - 24 hr 03/24/24 18:00 03/24/24 18:00 03/24/24 18:00 Temperature 98.5 F Pulse Rate 98 95 95 Respiratory Rate 15 15 Blood Pressure 96/56 L Pulse Oximetry 100 Oxygen Delivery Fraction of Inspired Oxygen 03/24/24 18:00 03/24/24 20:00 03/24/24 20:00 Temperature 98.6 F Pulse Rate 95 102 H 102 H Respiratory Rate 15 19 18 Blood Pressure 106/61 Pulse Oximetry 100 Oxygen Delivery Fraction of Inspired Oxygen 03/24/24 20:00 03/24/24 20:15 03/24/24 20:30 Temperature Pulse Rate 102 H 96 Respiratory Rate 19 16 Blood Pressure Pulse Oximetry 100 Oxygen Delivery Mechanical Ventilation Fraction of Inspired Oxygen 30 30 03/24/24 20:00 03/24/24 20:25 03/24/24 20:25 Temperature Pulse Rate 102 H 96 98 Respiratory Rate 16 Blood Pressure Pulse Oximetry 100 Oxygen Delivery Mechanical Ventilation Fraction of Inspired Oxygen 30 03/24/24 20:45 03/24/24 22:00 03/24/24 22:00 Temperature 98.9 F Pulse Rate 99 96 96 Respiratory Rate 16 16 Blood Pressure 95/56 L Pulse Oximetry 100 Oxygen Delivery Fraction of Inspired Oxygen 03/24/24 22:00 03/24/24 22:10 03/24/24 23:02 Temperature Pulse Rate 96 96 103 H Respiratory Rate 16 16 20 Blood Pressure Pulse Oximetry Oxygen Delivery Fraction of Inspired Oxygen 03/24/24 23:28 03/25/24 00:00 03/25/24 00:00 Temperature 99.1 F Pulse Rate 99 94 95 Respiratory Rate 16 16 Blood Pressure 90/52 L Pulse Oximetry 98 99 Oxygen Delivery Mechanical Ventilation Fraction of Inspired Oxygen 30 03/25/24 00:00 03/25/24 00:00 03/25/24 00:10 Temperature Pulse Rate 95 95 Respiratory Rate 16 16 Blood Pressure Pulse Oximetry 99 Oxygen Delivery Mechanical Ventilation Fraction of Inspired Oxygen 30 30 03/25/24 00:00 03/25/24 02:00 03/25/24 02:00 Temperature 99 F Pulse Rate 94 96 96 Respiratory Rate 16 Blood Pressure 90/52 L Pulse Oximetry 97 Oxygen Delivery Fraction of Inspired Oxygen 03/25/24 02:24 03/25/24 02:25 03/25/24 02:00 Temperature Pulse Rate 95 94 96 Respiratory Rate 17 16 Blood Pressure Pulse Oximetry 98 Oxygen Delivery Mechanical Ventilation Fraction of Inspired Oxygen 30 03/25/24 02:00 03/25/24 03:52 03/25/24 04:00 Temperature Pulse Rate 96 94 Respiratory Rate 16 17 Blood Pressure Pulse Oximetry 98 Oxygen Delivery Mechanical Ventilation Fraction of Inspired Oxygen 30 30 03/25/24 04:00 03/25/24 04:00 03/25/24 04:00 Temperature 99 F Pulse Rate 93 93 93 Respiratory Rate 16 16 16 Blood Pressure 91/57 L Pulse Oximetry 98 Oxygen Delivery Fraction of Inspired Oxygen 03/25/24 04:00 03/25/24 05:33 03/25/24 06:00 Temperature Pulse Rate 94 104 H 108 H Respiratory Rate Blood Pressure Pulse Oximetry 95 Oxygen Delivery Mechanical Ventilation Fraction of Inspired Oxygen 30 03/25/24 06:00 03/25/24 06:00 03/25/24 06:03 Temperature 98.8 F Pulse Rate 108 H 108 H 108 H Respiratory Rate 23 H 21 H 21 H Blood Pressure 101/59 L Pulse Oximetry 98 Oxygen Delivery Fraction of Inspired Oxygen 03/25/24 07:45 03/25/24 07:45 03/25/24 07:58 Temperature Pulse Rate 96 96 97 Respiratory Rate 17 16 Blood Pressure Pulse Oximetry 97 Oxygen Delivery Mechanical Ventilation Fraction of Inspired Oxygen 30 03/25/24 07:58 03/25/24 07:58 03/25/24 08:28 Temperature Pulse Rate 97 97 99 Respiratory Rate 16 16 16 Blood Pressure Pulse Oximetry Oxygen Delivery Fraction of Inspired Oxygen 03/25/24 08:28 03/25/24 08:00 03/25/24 08:00 Temperature 99.0 F Pulse Rate 99 97 Respiratory Rate 16 16 Blood Pressure 93/57 L Pulse Oximetry 96 96 Oxygen Delivery Mechanical Ventilation Fraction of Inspired Oxygen 30 03/25/24 08:00 03/25/24 08:00 03/25/24 10:00 Temperature Pulse Rate 96 97 Respiratory Rate Blood Pressure Pulse Oximetry Oxygen Delivery Fraction of Inspired Oxygen 30 03/25/24 10:00 03/25/24 10:00 03/25/24 10:00 Temperature 99.3 F Pulse Rate 97 97 97 Respiratory Rate 16 16 16 Blood Pressure 94/56 L Pulse Oximetry 97 Oxygen Delivery Fraction of Inspired Oxygen 03/25/24 10:50 03/25/24 12:00 03/25/24 12:00 Temperature Pulse Rate 99 99 99 Respiratory Rate 16 16 Blood Pressure Pulse Oximetry 97 Oxygen Delivery Mechanical Ventilation Fraction of Inspired Oxygen 30 03/25/24 12:00 03/25/24 12:00 03/25/24 12:00 Temperature Pulse Rate 95 Respiratory Rate Blood Pressure Pulse Oximetry 98 Oxygen Delivery Mechanical Ventilation Fraction of Inspired Oxygen 30 30 03/25/24 12:00 03/25/24 14:00 03/25/24 14:00 Temperature 99.6 F 99.7 F H Pulse Rate 99 99 99 Respiratory Rate 16 18 Blood Pressure 94/61 L 96/57 L Pulse Oximetry 98 99 Oxygen Delivery Fraction of Inspired Oxygen 03/25/24 14:00 03/25/24 14:00 03/25/24 15:08 Temperature Pulse Rate 99 99 100 Respiratory Rate 18 18 24 H Blood Pressure Pulse Oximetry Oxygen Delivery Fraction of Inspired Oxygen 03/25/24 15:09 03/25/24 15:11 03/25/24 16:00 Temperature Pulse Rate 99 99 97 Respiratory Rate 17 16 Blood Pressure Pulse Oximetry 99 Oxygen Delivery Mechanical Ventilation Fraction of Inspired Oxygen 30 03/25/24 16:00 03/25/24 16:00 03/25/24 16:00 Temperature Pulse Rate 97 96 Respiratory Rate 16 Blood Pressure Pulse Oximetry 97 Oxygen Delivery Mechanical Ventilation Fraction of Inspired Oxygen 30 03/25/24 16:00 03/25/24 16:00 03/25/24 17:05 Temperature 100.2 F H 100.2 F H Pulse Rate 97 Respiratory Rate 16 Blood Pressure 88/50 L Pulse Oximetry 97 Oxygen Delivery Fraction of Inspired Oxygen 30 03/25/24 17:08 Temperature Pulse Rate 102 H Respiratory Rate Blood Pressure Pulse Oximetry 99 Oxygen Delivery Mechanical Ventilation Fraction of Inspired Oxygen 30 Intake/Output Intake/Output: Intake & Output 03/22/24 03/23/24 03/24/24 03/25/24 23:59 23:59 23:59 23:59 Intake Total 239.6 1884.3 1446.0 2533.4 Output Total 625 775 925 725 Balance -385.4 1109.3 521.0 1808.4 Meds/Results Medications: Active Medications Generic Name Dose Route Start Last Admin Trade Name Freq PRN Reason Stop Dose Admin Acetaminophen 650 mg 03/25/24 12:39 03/25/24 17:05 Acetaminophen Elixir 325 Mg/10.15 Ml Udc PO 650 mg Q4H PRN Administration Mild Pain (1-3) or Fever Albuterol/Ipratropium 3 ml 02/29/24 02:00 03/25/24 15:07 Ipratropium 0.5 Mg/Albuterol Sulfate 2.5 Mg Ampul.Neb 3 Ml INHALATION 3 ml Q6HRT JASON Administration Alteplase, Recombinant 2 mg 03/06/24 09:45 03/22/24 16:56 Alteplase 2 Mg Vial (Cathflo) IV PUSH 2 mg ONCE PRN Administration Line Occlusion Aspirin 81 mg 03/09/24 08:00 11/12/24 08:24 Aspirin 81 Mg Chewable Tablet FEED TUBE 81 mg DAILY@0800 JASON Administration Bisacodyl 10 mg 03/24/24 07:31 03/24/24 16:04 Bisacodyl 10 Mg Suppository RECTAL 10 mg QAM PRN Administration Constipation Dextrose 12.5 gm 02/28/24 19:23 Dextrose 50% 25 Gm/50 Ml Syringe IV PUSH PRN PRN Hypoglycemia Protocol Enoxaparin Sodium 90 mg 03/23/24 07:45 03/25/24 08:24 Enoxaparin 100 Mg/Ml Syringe SUB-Q 90 mg Q12HR JASON Administration Glucagon 1 mg 02/28/24 19:23 Glucagon For Inj 1 Mg Vial IM PRN PRN Hypoglycemia Protocol Glucose 15 gm 03/08/24 10:19 Glucose Oral Gel 15 Gm Of Glucse In 37.5 Gm Tube FEED TUBE PRN PRN Hypoglycemia Protocol Dextrose 1,000 mls @ 100 mls/hr 02/28/24 19:23 Dextrose 5% 1,000 Ml IVPB PRN PRN Hypoglycemia Protocol Fentanyl Citrate 2,500 mcg in 250 mls @ 10 mls/hr 03/22/24 12:15 03/25/24 16:00 Fentanyl 2,500 Mcg/Ns 250 Ml IV CONT 100 mcg/hr .Q25H JASON 10 mls/hr Titration Protocol 100 MCG/HR Midazolam HCl 100 mg in 100 mls @ 2 mls/hr 03/22/24 12:15 03/25/24 16:00 Versed 100 Mg/Ns 100 Ml IV CONT 2 mg/hr .Q50H JASON 2 mls/hr Titration Protocol 2 MG/HR Insulin Aspart 3 - 6 units 03/15/24 17:00 03/25/24 16:21 Insulin Aspart (*Bkc) 100 Units/Ml SUB-Q Not Given Q4HR [facility] Protocol Insulin Glargine 55 units 03/15/24 09:00 03/16/24 10:44 Insulin Glargine (*Bkc) 100 Units/Ml SUB-Q 55 units DAILY JASON Administration Labetalol HCl 20 mg 03/08/24 10:06 03/08/24 16:48 Labetalol Hcl Inj 100 Mg/20 Ml Vial IV PUSH 20 mg Q4H PRN Administration SBP > 160 and HR> 60 -1st choice Morphine Sulfate 2 mg 03/19/24 19:39 03/21/24 20:36 Morphine Sulfate (*Crx) 2 Mg/Ml Inj IV PUSH 2 mg Q2HR PRN Administration Pain Rated 7-10 Multi-Ingred Cream/Lotion/Oil/Oint 1 applic 03/22/24 21:00 03/25/24 08:28 Mineral Oil/White Petrolatum Ointment EACH EYE 1 applic Q12HR JASON Administration Pantoprazole Sodium 40 mg 03/02/24 09:00 03/25/24 08:26 Pantoprazole Sodium Iv 40 Mg Vial IV PUSH 40 mg Q12HR JASON Administration Polyethylene Glycol 17 gm 03/24/24 09:00 03/25/24 08:26 Polyethylene Glycol 3350 17 Gm Powd.Pack PO 17 gm QAM JASON Administration Sodium Chloride 10 ml 02/29/24 06:00 03/25/24 14:01 Central Line Flush IV PUSH 10 ml Q8HR JASON Administration Sodium Chloride 20 ml 02/28/24 23:37 Central Line Flush IV PUSH PRN PRN after blood draws Sodium Chloride 20 ml 03/21/24 08:57 Central Line Flush IV PUSH PRN PRN after blood draws Sodium Chloride 10 ml 03/21/24 08:57 Central Line Flush IV PUSH PRN PRN with TPN bag changes Sodium Chloride 10 ml 03/21/24 14:00 03/25/24 14:02 Central Line Flush IV PUSH 10 ml Q8HR JASON Administration Radiology Results: ITS Impressions Lower Extremity CTA 02/28/24 14:54 IMPRESSION: 1. 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 2. Moderate stenosis of right popliteal artery. 3. Osteomyelitis involving first proximal and distal phalanges and head of first metatarsal. Head CT 02/29/24 05:55 Impression: No intracranial hemorrhage, mass, or acute infarct. Stable chronic encephalomalacia in the high left parietal lobe. Atrophy and chronic white matter changes, as above. Chest/Abdomen/Pelvis CTA 02/29/24 06:02 Impression: Extensive right upper lobe consolidation and more mild right middle lobe consolidation, consistent with pneumonia. Consider aspiration pneumonia. Moderate to large right pleural effusion with complete atelectasis of the right lower lobe. Moderate left pleural effusion with minimal left basilar atelectasis. Small pericardial effusion. No definite acute abnormality in the abdomen or pelvis. Chronic compression fractures, as above. Renal Ultrasound 03/03/24 15:45 IMPRESSION: 1. Normal kidneys without hydronephrosis. 2. Small amount of ascites in the abdomen and pelvis. Abdomen Ultrasound 03/13/24 16:52 IMPRESSION: 1. No etiology for abnormal liver function tests. 2. Normal hepatic veins and main portal vein. Right and left portal veins and proper hepatic artery not evaluated. 3. Right pleural effusion. Vascular Ultrasound 03/13/24 16:52 IMPRESSION: 1. No etiology for abnormal liver function tests. 2. Normal hepatic veins and main portal vein. Right and left portal veins and proper hepatic artery not evaluated. 3. Right pleural effusion. Chest/Abdomen/Pelvis CT 03/16/24 21:51 IMPRESSION: Anasarca Large pleural effusions with prominent compressive atelectasis of the lower lobes especially, dependent atelectasis of the middle and upper lobes Heart size. Prominent coronary artery atherosclerotic calcifications Minimal pericardial effusion Prominent diffuse thickening of urinary bladder wall suggesting cystitis area Ha catheter in bladder lumen Very prominent amount of fluid and large fluid level within the stomach despite presence of NG tube T11 and L1 moderate anterior wedge compression fractures, likely chronic Thoracentesis Ultrasound 03/18/24 10:27 IMPRESSION: 1. Successful ultrasound-guided thoracentesis yielding 550 mL of doris-colored fluid. Modified Barium Swallow 03/21/24 15:25 IMPRESSION: 1. Aspiration of thin liquids and pudding. 2. Please refer to the speech therapy report for recommendations. Tube Placement 03/22/24 11:33 IMPRESSION: 1. Fluoroscopy guided nasoenteric tube placement with tip in the stomach. Abdomen X-Ray 03/22/24 12:47 IMPRESSION: 1. Nasogastric tube tip in the stomach. 2. Nasoenteric tube tip in the stomach. Venous Doppler Study 03/22/24 16:38 IMPRESSION: Nonocclusive right subclavian vein thrombus. No additional deep venous thrombosis detected in the remaining bilateral upper extremity veins. Chest X-Ray 03/25/24 06:17 Impression: Moderate right pleural effusion and small left pleural effusion with probable moderate pulmonary edema. Support tubes, as above. Labs Labs: Laboratory Results - last 24 hr 03/24/24 03/25/24 03/25/24 19:57 00:55 04:59 WBC RBC Hgb Hct MCV MCH MCHC RDW Plt Count MPV Puncture Site ABG pH ABG pCO2 ABG pO2 ABG PO2/FiO2 Ratio ABG HCO3 ABG O2 Saturation ABG O2 Content ABG Base Excess A-a Gradient Oxyhemoglobin Carboxyhemoglobin Methemoglobin Reduced Hemoglobin Total Hemoglobin O2 Delivery Device O2 Liters/Min Minute Volume Vent Rate Vent Mode FiO2 Tidal Volume PEEP Peak Inspir Pressure Pressure Support Sodium Potassium Chloride Carbon Dioxide Anion Gap BUN Creatinine Estim Creat Clear Calc Estimated GFR Glucose POC Capillary Glucose 132 H 161 H 149 H Calcium Magnesium Total Bilirubin AST ALT Alkaline Phosphatase Total Protein Albumin 03/25/24 03/25/24 03/25/24 05:03 05:19 08:22 WBC 7.5 RBC 2.89 L Hgb 8.1 L Hct 28.3 L MCV 97.9 MCH 28.0 MCHC 28.6 L RDW 19.2 H Plt Count 211 MPV 9.9 Puncture Site Right radial ABG pH 7.413 ABG pCO2 44.1 ABG pO2 82.4 ABG PO2/FiO2 Ratio 2.75 ABG HCO3 27.5 H ABG O2 Saturation 96.2 ABG O2 Content 11.7 L ABG Base Excess 2.6 A-a Gradient 79.7 Oxyhemoglobin 94.9 Carboxyhemoglobin 1.5 Methemoglobin 0.1 Reduced Hemoglobin 3.5 Total Hemoglobin 8.7 L O2 Delivery Device Ventilator O2 Liters/Min Not Reportable Minute Volume Not Reportable Vent Rate 16 Vent Mode Cmv FiO2 30 Tidal Volume 380 PEEP 8 Peak Inspir Pressure Not Reportable Pressure Support Not Reportable Sodium 145 Potassium 4.1 Chloride 111 H Carbon Dioxide 31 H Anion Gap 3 L BUN 18 Creatinine 0.80 Estim Creat Clear Calc 79 Estimated GFR > 60 Glucose 157 H POC Capillary Glucose 169 H Calcium 8.0 L Magnesium 2.2 Total Bilirubin 0.6 AST 26 ALT 24 Alkaline Phosphatase 133 H Total Protein 6.0 L Albumin 2.7 L 03/25/24 03/25/24 12:13 16:19 WBC RBC Hgb Hct MCV MCH MCHC RDW Plt Count MPV Puncture Site ABG pH ABG pCO2 ABG pO2 ABG PO2/FiO2 Ratio ABG HCO3 ABG O2 Saturation ABG O2 Content ABG Base Excess A-a Gradient Oxyhemoglobin Carboxyhemoglobin Methemoglobin Reduced Hemoglobin Total Hemoglobin O2 Delivery Device O2 Liters/Min Minute Volume Vent Rate Vent Mode FiO2 Tidal Volume PEEP Peak Inspir Pressure Pressure Support Sodium Potassium Chloride Carbon Dioxide Anion Gap BUN Creatinine Estim Creat Clear Calc Estimated GFR Glucose POC Capillary Glucose 159 H 189 H Calcium Magnesium Total Bilirubin AST ALT Alkaline Phosphatase Total Protein Albumin
--- NOTE | 2024-03-25 17:57 | PHAR ---
FENTANYL RATE ENTERED 100 ML/HR IN ERROR. I SPOKE WITH RN AND SHE TRIED TO UPDATE ORDER. NOT SHOWING ON PHARMACY ORDER. RN ENTERED A PHARMACISTS COMMUNICATION TO VERIFY CORRECT RATE OF 10 ML/HR. STILL SHOWING 100ML/HR IN HISTORY HOWEVER NOT INFUSING AT THAT RATE.
[2024-03-25 19:56] LABS: Glucose Point of Care 196 mg/dl (65-105)
--- NOTE | 2024-03-25 22:51 | PC.NURSE ---
Dr. Collins notified about current blood pressures and sedation. Okay to start Levophed and titrate for MAP of 65 or greater.
[2024-03-25] MEDS: NOREPINEPHRINE 8 MG/D5W 250 ML 8 MG/250 ML BAG 9.38 MG IV CONT (23:30)
[2024-03-26] VITALS (40 sets, daily range): BP systolic 93–119; BP diastolic 47–66; PULSE 82–100; RESP 15–24; TEMP 36.9–38.9; O2SAT 94–99
[2024-03-26 00:41] LABS: Glucose Point of Care 206 mg/dl (65-105)
[2024-03-26] MEDS: INSULIN ASPART (*BKC) 100 UNITS/ML SUB-Q ×2 (00:43→08:30)
[2024-03-26] MEDS: IPRATROPIUM 0.5 MG/ALBUTEROL SULFATE 2.5 MG AMPUL.NEB 3 ML INHALATION ×4 (01:51→20:05)
[2024-03-26] MEDS: MIDAZOLAM 100MG/NS 100ML(*CRX) 100 MG/100 ML BAG IV CONT (04:32)
[2024-03-26 04:39] LABS: Alveolar/Arterial O2 Gradient 68.2 mmHg; Base Excess ABG 4.5 mEq/l (+/-2.0); Carboxyhemoglobin 1.4 % THb (0-2.0); Fractional Inspired Oxygen 30 %; HCO3 ABG 28.6 mEq/l (22.0-26.0); Oxygen Content ABG 11.7 %vol (16.0-22.0); Oxygen Saturation ABG 97.8 % (95.0-100.0); Oxyhemoglobin 96.6 % THb (90.0-100.0); PCO2 ABG 40.5 mmHg (35.0-45.0); PO2 ABG 98.1 mmHg (80.0-100.0); PO2 FiO2 Ratio Arterial Blood 3.27 %; Total Hemoglobin 8.5 g/dL (12.0-18.0); pH ABG 7.467 (7.350-7.450)
[2024-03-26 04:40] LABS: Device VENTILATOR; Modified Allen's Test Pass; Site Drawn RIGHT RADIAL
[2024-03-26 04:40] LABS: Hematocrit 25.5 % (42.0-52.0); Hemoglobin 7.5 g/dL (14.0-18.0); Mean Corpuscular HGB Conc 29.4 g/dl (32-36); Mean Corpuscular Hemoglobin 28.4 pg (26-34); Mean Corpuscular Volume 96.6 fl (80-100); Mean Platelet Volume 10.3 fl (7.4-10.4); Platelet Count Result 183 k/mm3 (150-375); Red Blood Count 2.64 M/mm3 (4.6-6.20); Red Cell Distribution Width 18.9 % (11.5-14.5)
[2024-03-26 04:41] LABS: Arterial Blood Gas PEEP 8 cmH2O; Arterial Blood Gas Tidal Volume 380 ml; Arterial Blood Gas Vent Mode CMV; Arterial Blood Gas Ventilator rate 16 /MIN
[2024-03-26 04:51] LABS: Alanine Aminotransferase 20 U/L (6-50); Albumin Level 2.6 g/dL (3.5-5.1); Alkaline Phosphatase 114 U/L (38-126); Anion Gap 2 mmol/L (4-12); Aspartate Amino Transferase 25 U/L (17-59); Bilirubin,Total 0.5 mg/dL (0.2-1.3); Blood Urea Nitrogen 21 mg/dL (9-20); Calcium 7.6 mg/dL (8.4-10.2); Carbon Dioxide 31 mmol/L (22-30); Chloride 111 mmol/L (98-107); Estimated CRCL calculation 79 ml/min; Estimated Glomerular Filt Rate > 60; Glucose 169 mg/dL (65-110); Magnesium 2.2 mg/dL (1.6-2.3); Sodium 144 mmol/L (137-145)
[2024-03-26 05:17] LABS: Glucose Point of Care 160 mg/dl (65-105)
[2024-03-26] MEDS: CENTRAL LINE FLUSH 10 ML IV PUSH ×4 (06:09→21:03)
[2024-03-26 08:00] LABS: Glucose Point of Care 202 mg/dl (65-105)
[2024-03-26] MEDS: ASPIRIN 81 MG CHEWABLE TABLET FEED TUBE (08:30)
[2024-03-26] MEDS: ENOXAPARIN 100 MG/ML SYRINGE 90 MG SUB-Q ×2 (08:30→21:02)
[2024-03-26] MEDS: polyethylene glycoL 3350 17 GM POWD.PACK PO (08:31)
[2024-03-26] MEDS: PANTOPRAZOLE SODIUM IV 40 MG VIAL IV PUSH ×2 (08:31→21:03)
[2024-03-26] MEDS: MINERAL OIL/WHITE PETROLATUM OINTMENT 1 APPLIC EACH EYE ×2 (08:31→21:04)
--- NOTE | 2024-03-26 10:05 | P.PNINT_ITS ---
Progress Note: A&P Assessment and Plan (1) Acute respiratory failure with hypoxia: Code(s): J96.01 - Acute respiratory failure with hypoxia Status: Acute Assessment and Plan: Acute respiratory failure likely related to cardiac arrest, aspiration pneumonia, NSTEMI, hypoxia, septic shock Worsening likely secondary to ARDS versus pulmonary edema Intubated 02/27 02/28 Chest CTA: Extensive right upper lobe consolidation and more mild right middle lobe consolidation, consistent with pneumonia. Consider aspiration pneumonia.Moderate to large right pleural effusion with complete atelectasis of the right lower lobe. Moderate left pleural effusion with minimal left basilar atelectasis. Small pericardial effusion. No definite acute abnormality in the abdomen or pelvis. Chronic compression fractures, as above . -03/07 right thoracentesis with 1 L fluid removed -03/08 left-sided thoracentesis 550 mL -03/11: patient was in pressure support ventilation 02/18, with decrease tidal volumes in the upper 200s. place patient back on CMV, I have asked the bedside RN to decrease the Precedex infusion once patient is more awake will place back on spontaneous breathing trials 03/12: Place patient on SBT 04/17, low tidal volumes, low respiratory rate. Patient had replaced back on CMV mode of ventilation. -even on ASV patient is breathing only 7-8 times a minute 03/13: Off Precedex infusion overnight, placed patient on pressure support ventilation 04/17, initially did well but not significantly tachycardic and tachypneic and in respiratory distress, patient was placed back on CMV mode of ventilation and low-dose was 03/14 8/5 PSV SBT done for more than 1 hour. RSBI, ABG and Vitals acceptable. Pt awake and following commands. Patient was extubated. Initially patient did well and was on nasal cannula and was able to communicate. Over 12 hours patient became more hypoxic with increased respiratory distress and tachypnea. I spoke to patient post extubation and was agreeable to re-intubation if needed and stated that 'he is not ready to ' and 'do what ever it takes'. He was re intubated at night. I also mentioned to him that he may need tracheostomy and PEG tube placement if he gets we intubated and is not weanable. He told me 'to proceed with it if needed'. Solu-Medrol IV given for airway edema and will be continued for 24 hours -completed course of Solu-Medrol -continue bronchodilators -CT scan shows large pleural effusions bilaterally. I will request IR for thoracentesis.. Patient is on minimal ventilator setting but has failed trials initially multiple times and then once extubated he was reintubated within 12 hours. I will treat try again after thoracentesis to see patient is weanable from the vent otherwise will proceed with trach and PEG as patient has been on ventilator for more than 2 weeks. 03/17 right thoracentesis 1 L fluid was removed 03/18 left thoracentesis 550 mL fluid was removed Will also continue diuretics. 03/19 patient was extubated after weaning trial 03/20 continue nasal cannula, BiPAP p.r.n., hold diuretics, incentive spirometry, spoke to patient after extubation yesterday he is willing to be intubated if needed and proceed with trach and PEG if needed hopefully we can avoid that situation 03/21 patient continues to require BiPAP intermittently and tolerates nasal cannula. He appears quite weak although he does have borderline cough. Cont inue incentive spirometry. P.r.n. BiPAP. BiPAP at night. Nasal cannula as tolerated. Patient remains at risk of requiring intubation. I spoke to patient again and mention that to him and he verbalized understanding by noting his head. I will check chest x-ray. Continue ICU monitoring 03/22 discussed with the patient emphasized importance of using BiPAP for increased work of breathing and at night due to his deconditioning and weakness. He is currently saturating on nasal cannula and appears not in any respiratory distress. later patient deteriorated and required re-intubation 03/23 ABG and chest x-ray. patient has failed extubation twice and has been on ventilator for close to 20 days. Patient is awaiting trach now . ENT consulted ABG and chest x-ray reviewed. Continue mechanical ventilation. Tracheostomy scheduled for 03/31. no ENT coverage until then (2) Elevated LFTs: Code(s): R79.89 - Other specified abnormal findings of blood chemistry Status: Acute Assessment and Plan: 03/13: Significant elevation in LFTs, AST 2280, ALT 988, alk-phos 722 -patient has been hemodynamically stable, no hypotension noted in the last 24-48 hours -statin discontinued. Hold Tylenol -no tenderness in the right upper, lower quadrant or epigastric region on exam -negative vital hepatitis panel, right upper quadrant ultrasound with Doppler negative for hepatic or portal vein thrombosis -patient evaluated by GI -levels now improved. Monitor (3) Cardiac arrest with pulseless electrical activity: Code(s): I46.9 - Cardiac arrest, cause unspecified Status: Acute Assessment and Plan: Cardiac arrest, secondary to unknown etiology. Possible aspiration pneumonia, NSTEMI, hypoxia, septic shock, infection -see code blue sheet for the details -patient currently intubated, vasopressors for blood pressure support have been weaned off -appreciate cardiology following the patient 02/29/2024 echocardiogram Summary 1. Technically difficult study with limited views. 2. Left ventricular chamber dimension is normal. 3. Left ventricular systolic function is mildly reduced, estimated at 45-50%. The apex appears to be hypokinetic. 4. There is mildly increased left ventricular wall thickness. 5. The left ventricular diastolic function is grade I diastolic dysfunction. 6. Right ventricular systolic function is normal. 7. Left atrial chamber dimension is moderately enlarged. 8. There is mild to moderate tricuspid valve regurgitation. 9. There is small anterior pericardial effusion. (4) Septic shock: Code(s): A41.9 - Sepsis, unspecified organism; R65.21 - Severe sepsis with septic shock Status: Acute Assessment and Plan: Resolved Patient in shock, likely related to the gangrene, aspiration pneumonia, status post cardiac arrest 02/28/2024: Blood cultures have been obtained and negative Status post 10 days of antibiotics 03/16 low-grade fever increase in WBC CT scan as above, repeat blood cultures and sputum pending UA suggestive of UTI. Urine cultures pending. Ha has been changed. Completed course of cefepime currently on low-dose Levophed which is likely secondary to sedation. Will or sedation today continue to titrate Levophed. (5) NSTEMI (non-ST elevated myocardial infarction): Code(s): I21.4 - Non-ST elevation (NSTEMI) myocardial infarction Status: Acute Assessment and Plan: -appreciate cardiology evaluation and recommendation -Continue aspirin, Lovenox and high-dose a statin - beta-brayden, losartan are on hold due to soft blood pressure. Will resume beta-brayden -03/02 heparin infusion was discontinued after 48 hours for NSTEMI by cardiology (6) Gangrene of right foot: Code(s): I96 - Gangrene, not elsewhere classified Status: Acute Assessment and Plan: CTA showed peripheral arterial disease with total occlusion of the right anterior and posterior tibial arteries and right peroneal artery with distal reconstitution of peroneal artery. This extensive gangrene of the right foot with gas seen on CT of the foot. General surgery spoke to the patient in the ER on the day of admission on 02/27 patient at that time agreed for below-knee amputation. Plan was to do a below- knee amputation on 02/29/2024 but patient had a cardiac arrest that night secondary to sepsis. Surgery at that time was deferred. Patient now is intubated sedated and unable to sign his consent.. Patient has no family and for many years at the halfway has had no visitor. He has 1 son which no one has been able to get hold off right several attempts. Considering patient has gangrene of the foot with no vascular supply leading to sepsis and if untreatable lead to his , Dr. Johns will proceed with amputation today, 03/05/2024. Dr. Collins and Dr. Johns has signed 2 physician consent considering patient's clearly expressed wishes prior to cardiac arrest at the time of admission, his current situation and inability to sign the consent form by himself at this time. 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 -complete 5 days of clindamycin 03/13: Discussed with surgery, there is flexion contractures of his amputation which may hinder in him getting prosthetics, patient may require above knee amputation (7) Osteomyelitis of toe of right foot: Code(s): M86.9 - Osteomyelitis, unspecified Status: Chronic Assessment and Plan: As above (8) Peripheral vascular disease: Code(s): I73.9 - Peripheral vascular disease, unspecified Status: Chronic Assessment and Plan: Patient has history of peripheral vascular disease, coronary artery disease -started on aspirin, patient will require Brilinta since he had a STEMI in 2020 but currently holding Brilinta due to surgery and bleeding (9) Type 2 diabetes mellitus: Qualifiers: 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 complication status: with other specified complication 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 use Qualified Code(s): E11.69 - Type 2 diabetes mellitus with other specified complication; 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 Code(s): E11.9 - Type 2 diabetes mellitus without complications Status: Acute Assessment and Plan: Currently [facility] sliding scale [facility] Hem[facility] A1c this admission is 8.2 (10) Chronic obstructive pulmonary disease: Code(s): J44.9 - Chronic obstructive pulmonary disease, unspecified Status: Chronic Assessment and Plan: Continue DuoNebs -continue Symbicort (11) Electrolyte abnormality: Code(s): E87.8 - Other disorders of electrolyte and fluid balance, not elsewhere classified Status: Acute Assessment and Plan: Hypernatremia, hold diuretics. continue free water flush. Sodium improving (12) Ileus: Code(s): K56.7 - Ileus, unspecified Status: Acute Assessment and Plan: CT scan shows significant amount of tube feeds collected in the stomach. Patient also had high residuals. Patient has already been on Reglan. Bowel sounds are present but decreased. tube feeds restarted after PEG placement (13) Sinus tachycardia: Code(s): R00.0 - Tachycardia, unspecified Status: Acute Assessment and Plan: Does not appear in any respiratory distress. Continue BiPAP p.r.n.. beta-brayden held due to low blood pressure (14) Dysphagia: Code(s): R13.10 - Dysphagia, unspecified Status: Acute Assessment and Plan: Patient failed his bedside swallow evaluation and a modified barium swallow stud y prior to re-intubation which showed aspiration of thin liquids and pudding 03/24 PEG tube inserted. Tube feeds resumed and are at goal (15) DVT (deep venous thrombosis): Code(s): I82.409 - Acute embolism and thrombosis of unspecified deep veins of unspecified lower extremity Status: Acute Assessment and Plan: ultrasound shows clot surrounding the PICC line in the right upper extremity PICC line working and will be left in place for now Continue Lovenox at therapeutic dose Plan DVT prophylaxis: Lovenox therapeutic dose Stress ulcer prophylaxis: Protonix Nutrition: tube feeds ordered Code Status: Full code. PEG tube done. Patient awaits tracheostomy placement which is scheduled for 03/31 03/15 Patient has no family available. Patient was extubated on 03/14 and I spoke to patient post extubation. I mentioned possibility of him needing re- intubation and he was agreeable stating that he is not ready to at this time. He stated that do whatever needs to be done to keep me alive. I also mentioned to him that if he gets reintubated and is unable to be weaned he will need tracheostomy and PEG tube placement and he states that he is agreeable to do it if needed. He did mention that he has some nephews in area which can be contacted. student teaching coordinator was provided that information. 03/19 I confirmed with patient again regarding his code status he is willing to get reintubated if needed and is willing to proceed with trach and PEG if needed. He wishes to be full code. 03/23 Finally patient's son arrived at bedside and I spoke to him with his and ingrid jaceangela's ex- in the conference room. I updated them in detail about the details of patient's admission presentation and hospital course till now. He states that he has not been touch with his dad for last 10 years. He is willing to be the POA at this time. I answered all his questions and explained him the patient is currently in respiratory failure with failure to wean requiring re-intubation x2, congestive Heart Care earlier, gangrene of right foot requiring amputation, sepsis, UTI, dysphagia and he will need trach and PEG. They understand and agree with patient's wishes to proceed with trach and PEG at this time. He was hoping the patient can go to a facility close to where he lives. Critical Care Time Spent: 32 minutes Due to a high probability of clinically significant, life threatening deterioration, the patient required my highest level of preparedness to intervene emergently and I personally spent this critical care time directly and personally managing the patient. This critical care time included obtaining a history; examining the patient; pulse oximetry; ordering and review of studies; arranging urgent treatment with development of a management plan; evaluation of patient's response to treatment; frequent reassessment; and discussions with other providers. It was exclusive of separately billable procedures and treating other patients and teaching time. Please see Assessment and Plan section and the rest of the note for further information on patient assessment and treatment This dictation may have been done utilizing a voice recognition system. Attempts have been made to correct errors. However, there may be uncorrected grammatical, spelling, and recognitions errors present. Subjective Date/time seen: 03/26/24 Overnight events reviewed. Afebrile Continues to be on mechanical ventilation 30% FiO2 tolerating tube feeds. urine output on the lower side Continues to be sedated with Versed and fentanyl blood pressure was soft overnight and patient was started on low-dose Levophed. other Vitals acceptable Review of Systems Review of Systems: ROS unobtainable: Yes unobtainable due to endotracheal tube, unobtainable due to medical condition and unobtainable due to mental status Exam Narrative: General: Patient intubated sedated and in no acute distress HEENT:, pupils are equal and reactive from a sclera is clear Neck:? supple Respiratory:? Coarse breath sounds bilaterally, decreased at bases, adequate air entry, no wheezing Cardiac:? S1-S2 normal, regular rate and rhythm Abdomen:? Soft, nontender, nondistended, bowel sounds are decreased but present Extremities:? Right BKA stump under the dressing. Left dorsalis pedis is dopplerable Neuro:? Patient is sedated, not arousable or following commands today. Skin:? Patient has maceration of his perianal area, pressure ulcer on his buttocks. Psych:? Normal speech and affect Objective Data Vital Signs Vital Signs: Vital Signs - 24 hr 03/25/24 10:50 03/25/24 12:00 03/25/24 12:00 Temperature Pulse Rate 99 99 99 Respiratory Rate 16 16 Blood Pressure Pulse Oximetry 97 Oxygen Delivery Mechanical Ventilation Fraction of Inspired Oxygen 30 03/25/24 12:00 03/25/24 12:00 03/25/24 12:00 Temperature Pulse Rate 95 Respiratory Rate Blood Pressure Pulse Oximetry 98 Oxygen Delivery Mechanical Ventilation Fraction of Inspired Oxygen 30 30 03/25/24 12:00 03/25/24 14:00 03/25/24 14:00 Temperature 37.6 C 37.6 C H Pulse Rate 99 99 99 Respiratory Rate 16 18 Blood Pressure 94/61 L 96/57 L Pulse Oximetry 98 99 Oxygen Delivery Fraction of Inspired Oxygen 03/25/24 14:00 03/25/24 14:00 03/25/24 15:08 Temperature Pulse Rate 99 99 100 Respiratory Rate 18 18 24 H Blood Pressure Pulse Oximetry Oxygen Delivery Fraction of Inspired Oxygen 03/25/24 15:09 03/25/24 15:11 03/25/24 16:00 Temperature Pulse Rate 99 99 97 Respiratory Rate 17 16 Blood Pressure Pulse Oximetry 99 Oxygen Delivery Mechanical Ventilation Fraction of Inspired Oxygen 30 03/25/24 16:00 03/25/24 16:00 03/25/24 16:00 Temperature Pulse Rate 97 96 Respiratory Rate 16 Blood Pressure Pulse Oximetry 97 Oxygen Delivery Mechanical Ventilation Fraction of Inspired Oxygen 30 03/25/24 16:00 03/25/24 16:00 03/25/24 17:05 Temperature 37.9 C H 37.9 C H Pulse Rate 97 Respiratory Rate 16 Blood Pressure 88/50 L Pulse Oximetry 97 Oxygen Delivery Fraction of Inspired Oxygen 30 03/25/24 17:08 03/25/24 17:47 03/25/24 18:05 Temperature 37.8 C H Pulse Rate 102 H 101 H Respiratory Rate 16 Blood Pressure Pulse Oximetry 99 Oxygen Delivery Mechanical Ventilation Fraction of Inspired Oxygen 30 03/25/24 18:00 03/25/24 18:00 03/25/24 18:00 Temperature Pulse Rate 98 98 98 Respiratory Rate 16 16 Blood Pressure Pulse Oximetry Oxygen Delivery Fraction of Inspired Oxygen 03/25/24 18:00 03/25/24 20:10 03/25/24 20:11 Temperature 37.8 C H Pulse Rate 98 96 99 Respiratory Rate 16 16 Blood Pressure 91/51 L Pulse Oximetry 98 98 Oxygen Delivery Mechanical Ventilation Fraction of Inspired Oxygen 30 03/25/24 20:00 03/25/24 20:00 03/25/24 20:00 Temperature 37.7 C H Pulse Rate 100 94 Respiratory Rate 16 Blood Pressure 102/61 Pulse Oximetry 95 Oxygen Delivery Fraction of Inspired Oxygen 30 03/25/24 20:00 03/25/24 20:00 03/25/24 20:00 Temperature Pulse Rate 94 94 94 Respiratory Rate 16 16 16 Blood Pressure Pulse Oximetry 96 Oxygen Delivery Mechanical Ventilation Fraction of Inspired Oxygen 30 03/25/24 20:25 03/25/24 22:00 03/25/24 22:00 Temperature 37.7 C H Pulse Rate 99 91 91 Respiratory Rate 17 16 Blood Pressure 88/51 L Pulse Oximetry 98 Oxygen Delivery Fraction of Inspired Oxygen 03/25/24 22:00 03/25/24 22:00 03/25/24 23:11 Temperature Pulse Rate 91 91 99 Respiratory Rate 16 16 Blood Pressure Pulse Oximetry 99 Oxygen Delivery Mechanical Ventilation Fraction of Inspired Oxygen 30 03/25/24 23:30 03/25/24 23:46 03/25/24 23:46 Temperature 37.1 C Pulse Rate 90 89 Respiratory Rate 16 Blood Pressure 87/54 L 89/65 L Pulse Oximetry 99 Oxygen Delivery Fraction of Inspired Oxygen 30 03/25/24 23:00 03/25/24 23:30 03/26/24 00:00 Temperature 37.6 C H 37.6 C H 37.6 C Pulse Rate 90 90 87 Respiratory Rate 16 16 16 Blood Pressure 87/53 L 87/54 L 119/65 Pulse Oximetry 99 99 99 Oxygen Delivery Fraction of Inspired Oxygen 03/26/24 00:01 03/26/24 00:01 03/26/24 00:01 Temperature Pulse Rate 86 87 90 Respiratory Rate 19 19 Blood Pressure 119/66 Pulse Oximetry Oxygen Delivery Fraction of Inspired Oxygen 03/26/24 00:00 03/26/24 00:00 03/26/24 00:30 Temperature Pulse Rate 84 88 86 Respiratory Rate 18 Blood Pressure 112/61 Pulse Oximetry 99 Oxygen Delivery Mechanical Ventilation Fraction of Inspired Oxygen 30 03/26/24 01:04 03/26/24 01:16 03/26/24 01:51 Temperature 37.6 C 37.6 C Pulse Rate 88 87 92 Respiratory Rate 16 16 17 Blood Pressure 94/52 L 94/52 L Pulse Oximetry 99 99 Oxygen Delivery Fraction of Inspired Oxygen 03/26/24 01:52 03/26/24 02:00 03/26/24 02:00 Temperature 37.4 C Pulse Rate 86 86 86 Respiratory Rate 16 Blood Pressure 96/54 L Pulse Oximetry 98 98 Oxygen Delivery Mechanical Ventilation Fraction of Inspired Oxygen 30 03/26/24 02:00 03/26/24 02:00 03/26/24 02:15 Temperature 38.9 C H Pulse Rate 85 85 100 Respiratory Rate 16 16 24 H Blood Pressure 101/66 Pulse Oximetry 99 Oxygen Delivery Fraction of Inspired Oxygen 03/26/24 04:00 03/26/24 04:00 03/26/24 04:00 Temperature 37.3 C Pulse Rate 87 87 Respiratory Rate 16 16 Blood Pressure 99/55 L Pulse Oximetry 98 Oxygen Delivery Fraction of Inspired Oxygen 30 03/26/24 04:00 03/26/24 04:00 03/26/24 04:20 Temperature Pulse Rate 85 85 85 Respiratory Rate 16 16 Blood Pressure 99/55 L Pulse Oximetry 98 Oxygen Delivery Mechanical Ventilation Fraction of Inspired Oxygen 30 03/26/24 04:30 03/26/24 04:32 03/26/24 04:44 Temperature Pulse Rate 93 91 94 Respiratory Rate 16 16 Blood Pressure Pulse Oximetry 97 Oxygen Delivery Mechanical Ventilation Fraction of Inspired Oxygen 30 03/26/24 04:00 03/26/24 05:59 03/26/24 06:00 Temperature 37.1 C Pulse Rate 82 86 84 Respiratory Rate 16 Blood Pressure 93/50 L Pulse Oximetry 95 Oxygen Delivery Fraction of Inspired Oxygen 03/26/24 06:00 03/26/24 06:00 03/26/24 06:00 Temperature Pulse Rate 84 84 84 Respiratory Rate 16 16 Blood Pressure 93/50 L Pulse Oximetry Oxygen Delivery Fraction of Inspired Oxygen 03/26/24 07:55 03/26/24 07:55 03/26/24 08:00 Temperature 36.9 C Pulse Rate 84 84 88 Respiratory Rate 16 15 Blood Pressure 108/60 Pulse Oximetry 97 97 Oxygen Delivery Mechanical Ventilation Fraction of Inspired Oxygen 30 03/26/24 08:15 03/26/24 08:47 03/26/24 08:51 Temperature Pulse Rate 91 89 88 Respiratory Rate 16 18 Blood Pressure 103/56 L Pulse Oximetry Oxygen Delivery Fraction of Inspired Oxygen 03/26/24 08:52 Temperature Pulse Rate 88 Respiratory Rate 17 Blood Pressure Pulse Oximetry Oxygen Delivery Fraction of Inspired Oxygen Intake/Output Intake/Output: Intake & Output 03/23/24 03/24/24 03/25/24 03/26/24 23:59 23:59 23:59 23:59 Intake Total 1884.3 1446.0 2600.4 1030.4 Output Total 775 925 725 350 Balance 1109.3 521.0 1875.4 680.4 Meds/Results Medications: Active Medications Generic Name Dose Route Start Last Admin Trade Name Freq PRN Reason Stop Dose Admin Acetaminophen 650 mg 03/25/24 12:39 03/25/24 17:05 Acetaminophen Elixir 325 Mg/10.15 Ml Udc PO 650 mg Q4H PRN Administration Mild Pain (1-3) or Fever Albuterol/Ipratropium 3 ml 02/29/24 02:00 03/26/24 07:56 Ipratropium 0.5 Mg/Albuterol Sulfate 2.5 Mg Ampul.Neb 3 Ml INHALATION 3 ml Q6HRT JASON Administration Alteplase, Recombinant 2 mg 03/06/24 09:45 03/22/24 16:56 Alteplase 2 Mg Vial (Cathflo) IV PUSH 2 mg ONCE PRN Administration Line Occlusion Aspirin 81 mg 03/09/24 08:00 03/26/24 08:30 Aspirin 81 Mg Chewable Tablet FEED TUBE 81 mg DAILY@0800 JASON Administration Bisacodyl 10 mg 03/24/24 07:31 03/24/24 16:04 Bisacodyl 10 Mg Suppository RECTAL 10 mg QAM PRN Administration Constipation Dextrose 12.5 gm 02/28/24 19:23 Dextrose 50% 25 Gm/50 Ml Syringe IV PUSH PRN PRN Hypoglycemia Protocol Enoxaparin Sodium 90 mg 03/23/24 07:45 03/26/24 08:30 Enoxaparin 100 Mg/Ml Syringe SUB-Q 90 mg Q12HR JASON Administration Glucagon 1 mg 02/28/24 19:23 Glucagon For Inj 1 Mg Vial IM PRN PRN Hypoglycemia Protocol Glucose 15 gm 03/08/24 10:19 Glucose Oral Gel 15 Gm Of Glucse In 37.5 Gm Tube FEED TUBE PRN PRN Hypoglycemia Protocol Dextrose 1,000 mls @ 100 mls/hr 02/28/24 19:23 Dextrose 5% 1,000 Ml IVPB PRN PRN Hypoglycemia Protocol Fentanyl Citrate 2,500 mcg in 250 mls @ 5 mls/hr 03/22/24 12:15 03/26/24 08:47 Fentanyl 2,500 Mcg/Ns 250 Ml IV CONT 50 mcg/hr .Q50H JASON 5 mls/hr Titration Protocol 50 MCG/HR Midazolam HCl 100 mg in 100 mls @ 2 mls/hr 03/22/24 12:15 03/26/24 08:52 Versed 100 Mg/Ns 100 Ml IV CONT 2 mg/hr .Q50H JASON 2 mls/hr Titration Protocol 2 MG/HR Norepinephrine Bitartrate 8 mg in 250 mls @ 3.75 mls/hr 03/25/24 22:55 03/26 08:51 Levophed 8 Mg/D5w 250 Ml IV CONT 2 mcg/min .Q24H JASON 3.75 mls/hr Titration Protocol 2 MCG/MIN Insulin Aspart 3 - 6 units 03/15/24 17:00 03/26/24 08:30 Insulin Aspart (*Bkc) 100 Units/Ml SUB-Q 3 units Q4HR JASON Administration Protocol Insulin Glargine 55 units 03/15/24 09:00 03/16/24 10:44 Insulin Glargine (*Bkc) 100 Units/Ml SUB-Q 55 units DAILY JASON Administration Labetalol HCl 20 mg 03/08/24 10:06 03/08/24 16:48 Labetalol Hcl Inj 100 Mg/20 Ml Vial IV PUSH 20 mg Q4H PRN Administration SBP > 160 and HR> 60 -1st choice Morphine Sulfate 2 mg 03/19/24 19:39 03/21/24 20:36 Morphine Sulfate (*Crx) 2 Mg/Ml Inj IV PUSH 2 mg Q2HR PRN Administration Pain Rated 7-10 Multi-Ingred Cream/Lotion/Oil/Oint 1 applic 03/22/24 21:00 03/26/24 08:31 Mineral Oil/White Petrolatum Ointment EACH EYE 1 applic Q12HR JASON Administration Pantoprazole Sodium 40 mg 03/02/24 09:00 03/26/24 08:31 Pantoprazole Sodium Iv 40 Mg Vial IV PUSH 40 mg Q12HR JASON Administration Polyethylene Glycol 17 gm 03/24/24 09:00 03/26/24 08:31 Polyethylene Glycol 3350 17 Gm Powd.Pack PO 17 gm QAM JASON Administration Sodium Chloride 10 ml 02/29/24 06:00 03/26/24 06:09 Central Line Flush IV PUSH 10 ml Q8HR JASON Administration Sodium Chloride 20 ml 02/28/24 23:37 Central Line Flush IV PUSH PRN PRN after blood draws Sodium Chloride 20 ml 03/21/24 08:57 Central Line Flush IV PUSH PRN PRN after blood draws Sodium Chloride 10 ml 03/21/24 08:57 Central Line Flush IV PUSH PRN PRN with TPN bag changes Sodium Chloride 10 ml 03/21/24 14:00 03/26/24 06:09 Central Line Flush IV PUSH 10 ml Q8HR JASON Administration Radiology Results: ITS Impressions Lower Extremity CTA 02/28/24 14:54 IMPRESSION: 1. 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 2. Moderate stenosis of right popliteal artery. 3. Osteomyelitis involving first proximal and distal phalanges and head of first metatarsal. Head CT 02/29/24 05:55 Impression: No intracranial hemorrhage, mass, or acute infarct. Stable chronic encephalomalacia in the high left parietal lobe. Atrophy and chronic white matter changes, as above. Chest/Abdomen/Pelvis CTA 02/29/24 06:02 Impression: Extensive right upper lobe consolidation and more mild right middle lobe consolidation, consistent with pneumonia. Consider aspiration pneumonia. Moderate to large right pleural effusion with complete atelectasis of the right lower lobe. Moderate left pleural effusion with minimal left basilar atelectasis. Small pericardial effusion. No definite acute abnormality in the abdomen or pelvis. Chronic compression fractures, as above. Renal Ultrasound 03/03/24 15:45 IMPRESSION: 1. Normal kidneys without hydronephrosis. 2. Small amount of ascites in the abdomen and pelvis. Abdomen Ultrasound 03/13/24 16:52 IMPRESSION: 1. No etiology for abnormal liver function tests. 2. Normal hepatic veins and main portal vein. Right and left portal veins and proper hepatic artery not evaluated. 3. Right pleural effusion. Vascular Ultrasound 03/13/24 16:52 IMPRESSION: 1. No etiology for abnormal liver function tests. 2. Normal hepatic veins and main portal vein. Right and left portal veins and proper hepatic artery not evaluated. 3. Right pleural effusion. Chest/Abdomen/Pelvis CT 03/16/24 21:51 IMPRESSION: Anasarca Large pleural effusions with prominent compressive atelectasis of the lower lobes especially, dependent atelectasis of the middle and upper lobes Heart size. Prominent coronary artery atherosclerotic calcifications Minimal pericardial effusion Prominent diffuse thickening of urinary bladder wall suggesting cystitis area Ha catheter in bladder lumen Very prominent amount of fluid and large fluid level within the stomach despite presence of NG tube T11 and L1 moderate anterior wedge compression fractures, likely chronic Thoracentesis Ultrasound 03/18/24 10:27 IMPRESSION: 1. Successful ultrasound-guided thoracentesis yielding 550 mL of doris-colored fluid. Modified Barium Swallow 03/21/24 15:25 IMPRESSION: 1. Aspiration of thin liquids and pudding. 2. Please refer to the speech therapy report for recommendations. Tube Placement 03/22/24 11:33 IMPRESSION: 1. Fluoroscopy guided nasoenteric tube placement with tip in the stomach. Abdomen X-Ray 03/22/24 12:47 IMPRESSION: 1. Nasogastric tube tip in the stomach. 2. Nasoenteric tube tip in the stomach. Venous Doppler Study 03/22/24 16:38 IMPRESSION: Nonocclusive right subclavian vein thrombus. No additional deep venous thrombosis detected in the remaining bilateral upper extremity veins. Chest X-Ray 03/26/24 06:40 Impression: Bilateral pleural effusions and moderate pulmonary edema pattern, as above. Support tubes, as above. Labs Labs: Laboratory Results - last 24 hr 03/25/24 03/25/24 03/25/24 12:13 16:19 19:53 WBC RBC Hgb Hct MCV MCH MCHC RDW Plt Count MPV Puncture Site ABG pH ABG pCO2 ABG pO2 ABG PO2/FiO2 Ratio ABG HCO3 ABG O2 Saturation ABG O2 Content ABG Base Excess A-a Gradient Oxyhemoglobin Carboxyhemoglobin Methemoglobin Reduced Hemoglobin Total Hemoglobin O2 Delivery Device O2 Liters/Min Minute Volume Vent Rate Vent Mode FiO2 Tidal Volume PEEP Peak Inspir Pressure Pressure Support Sodium Potassium Chloride Carbon Dioxide Anion Gap BUN Creatinine Estim Creat Clear Calc Estimated GFR Glucose POC Capillary Glucose 159 H 189 H 196 H Calcium Magnesium Total Bilirubin AST ALT Alkaline Phosphatase Total Protein Albumin 03/26/24 03/26/24 03/26/24 00:39 04:26 04:29 WBC 8.0 RBC 2.64 L Hgb 7.5 L Hct 25.5 L MCV 96.6 MCH 28.4 MCHC 29.4 L RDW 18.9 H Plt Count 183 MPV 10.3 Puncture Site Right radial ABG pH 7.467 H ABG pCO2 40.5 ABG pO2 98.1 ABG PO2/FiO2 Ratio 3.27 ABG HCO3 28.6 H ABG O2 Saturation 97.8 ABG O2 Content 11.7 L ABG Base Excess 4.5 A-a Gradient 68.2 Oxyhemoglobin 96.6 Carboxyhemoglobin 1.4 Methemoglobin 0.0 Reduced Hemoglobin 2.0 Total Hemoglobin 8.5 L O2 Delivery Device Ventilator O2 Liters/Min Not Reportable Minute Volume Not Reportable Vent Rate 16 Vent Mode Cmv FiO2 30 Tidal Volume 380 PEEP 8 Peak Inspir Pressure Not Reportable Pressure Support Not Reportable Sodium 144 Potassium 4.0 Chloride 111 H Carbon Dioxide 31 H Anion Gap 2 L BUN 21 H Creatinine 0.80 Estim Creat Clear Calc 79 Estimated GFR > 60 Glucose 169 H POC Capillary Glucose 206 H Calcium 7.6 L Magnesium 2.2 Total Bilirubin 0.5 AST 25 ALT 20 Alkaline Phosphatase 114 Total Protein 6.0 L Albumin 2.6 L 03/26/24 03/26/24 04:42 07:57 WBC RBC Hgb Hct MCV MCH MCHC RDW Plt Count MPV Puncture Site ABG pH ABG pCO2 ABG pO2 ABG PO2/FiO2 Ratio ABG HCO3 ABG O2 Saturation ABG O2 Content ABG Base Excess A-a Gradient Oxyhemoglobin Carboxyhemoglobin Methemoglobin Reduced Hemoglobin Total Hemoglobin O2 Delivery Device O2 Liters/Min Minute Volume Vent Rate Vent Mode FiO2 Tidal Volume PEEP Peak Inspir Pressure Pressure Support Sodium Potassium Chloride Carbon Dioxide Anion Gap BUN Creatinine Estim Creat Clear Calc Estimated GFR Glucose POC Capillary Glucose 160 H 202 H Calcium Magnesium Total Bilirubin AST ALT Alkaline Phosphatase Total Protein Albumin Quality VTE Prophylaxis VTE prophylaxis: pharmacologic ordered
--- NOTE | 2024-03-26 10:31 | PCFNICU ---
ICU Rounding Note: Pt current nutrition is Vital AF 1.2 at 60 ml/hr. Nutrition recommendation: protein modular Prosource once daily and Minh BID once patient is able to tolerate tube feedings. Last recorded weight is 93.2 kg, down from 98 kg on admit. Bowel Motility: +BM reported 03/25 Labs Reviewed:Glu 169, BUN 21, Alb 2.6 Meds Noted: NovoLog, Lantus, Fentanyl, Versed. Skin: Stage II-saccum, Right BKA Additional Notes: Patient received PEG 03/24. Tube feedings of Vital AF 1.2 at 60 ml/hr. Nursing states small emesis today. Flush remains at 100 ml q 4 hours. Once patient is able to tolerate feedings would recommend restarting Minh BID for wound healing and Prosource one daily. Plans for Trach 03/31. Following daily in ICU rounds. Will monitor weight, labs, skin, tube feedings, meds, every Sunday and Sunday.
[2024-03-26 11:50] LABS: Glucose Point of Care 187 mg/dl (65-105)
--- NOTE | 2024-03-26 13:58 | P.PNIM_ITS ---
Progress Note: A&P Assessment and Plan (1) Acute respiratory failure with hypoxia: Code(s): J96.01 - Acute respiratory failure with hypoxia Status: Acute Assessment and Plan: Acute respiratory failure likely related to cardiac arrest, aspiration pneumonia, NSTEMI, hypoxia, septic shock Worsening likely secondary to ARDS versus pulmonary edema Intubated 02/27 02/28 Chest CTA: Extensive right upper lobe consolidation and more mild right middle lobe consolidation, consistent with pneumonia. Consider aspiration pneumonia.Moderate to large right pleural effusion with complete atelectasis of the right lower lobe. Moderate left pleural effusion with minimal left basilar atelectasis. Small pericardial effusion. No definite acute abnormality in the abdomen or pelvis. Chronic compression fractures, as above . -03/07 right thoracentesis with 1 L fluid removed -03/08 left-sided thoracentesis 550 mL -03/11: patient was in pressure support ventilation 02/18, with decrease tidal volumes in the upper 200s. place patient back on CMV, I have asked the bedside RN to decrease the Precedex infusion once patient is more awake will place back on spontaneous breathing trials 03/12: Place patient on SBT 04/17, low tidal volumes, low respiratory rate. Patient had replaced back on CMV mode of ventilation. -even on ASV patient is breathing only 7-8 times a minute 03/13: Off Precedex infusion overnight, placed patient on pressure support ventilation 04/17, initially did well but not significantly tachycardic and tachypneic and in respiratory distress, patient was placed back on CMV mode of ventilation and low-dose was 03/14 8/5 PSV SBT done for more than 1 hour. RSBI, ABG and Vitals acceptable. Pt awake and following commands. Patient was extubated. Initially patient did well and was on nasal cannula and was able to communicate. Over 12 hours patient became more hypoxic with increased respiratory distress and tachypnea. I spoke to patient post extubation and was agreeable to re-intubation if needed and stated that 'he is not ready to ' and 'do what ever it takes'. He was re intubated at night. I also mentioned to him that he may need tracheostomy and PEG tube placement if he gets we intubated and is not weanable. He told me 'to proceed with it if needed'. Solu-Medrol IV given for airway edema and will be continued for 24 hours -completed course of Solu-Medrol -continue bronchodilators -CT scan shows large pleural effusions bilaterally. I will request IR for thoracentesis.. Patient is on minimal ventilator setting but has failed trials initially multiple times and then once extubated he was reintubated within 12 hours. I will treat try again after thoracentesis to see patient is weanable from the vent otherwise will proceed with trach and PEG as patient has been on ventilator for more than 2 weeks. 03/17 right thoracentesis 1 L fluid was removed 03/18 left thoracentesis 550 mL fluid was removed Will also continue diuretics. 03/19 patient was extubated after weaning trial 03/20 continue nasal cannula, BiPAP p.r.n., hold diuretics, incentive spirometry, spoke to patient after extubation yesterday he is willing to be intubated if needed and proceed with trach and PEG if needed hopefully we can avoid that situation 03/21 patient continues to require BiPAP intermittently and tolerates nasal cannula. He appears quite weak although he does have borderline cough. Cont inue incentive spirometry. P.r.n. BiPAP. BiPAP at night. Nasal cannula as tolerated. Patient remains at risk of requiring intubation. I spoke to patient again and mention that to him and he verbalized understanding by noting his head. I will check chest x-ray. Continue ICU monitoring 03/22 discussed with the patient emphasized importance of using BiPAP for increased work of breathing and at night due to his deconditioning and weakness. He is currently saturating on nasal cannula and appears not in any respiratory distress. later patient deteriorated and required re-intubation 03/23 ABG and chest x-ray. patient has failed extubation twice and has been on ventilator for close to 20 days. Patient is awaiting trach now . ENT consulted ABG and chest x-ray reviewed. Continue mechanical ventilation. Tracheostomy scheduled for 03/31. no ENT coverage until then (2) Elevated LFTs: Code(s): R79.89 - Other specified abnormal findings of blood chemistry Status: Acute Assessment and Plan: 03/13: Significant elevation in LFTs, AST 2280, ALT 988, alk-phos 722 -patient has been hemodynamically stable, no hypotension noted in the last 24-48 hours -statin discontinued. Hold Tylenol -no tenderness in the right upper, lower quadrant or epigastric region on exam -negative vital hepatitis panel, right upper quadrant ultrasound with Doppler negative for hepatic or portal vein thrombosis -patient evaluated by GI -levels now improved. Monitor (3) Cardiac arrest with pulseless electrical activity: Code(s): I46.9 - Cardiac arrest, cause unspecified Status: Acute Assessment and Plan: Cardiac arrest, secondary to unknown etiology. Possible aspiration pneumonia, NSTEMI, hypoxia, septic shock, infection -see code blue sheet for the details -patient currently intubated, vasopressors for blood pressure support have been weaned off -appreciate cardiology following the patient 02/29/2024 echocardiogram Summary 1. Technically difficult study with limited views. 2. Left ventricular chamber dimension is normal. 3. Left ventricular systolic function is mildly reduced, estimated at 45-50%. The apex appears to be hypokinetic. 4. There is mildly increased left ventricular wall thickness. 5. The left ventricular diastolic function is grade I diastolic dysfunction. 6. Right ventricular systolic function is normal. 7. Left atrial chamber dimension is moderately enlarged. 8. There is mild to moderate tricuspid valve regurgitation. 9. There is small anterior pericardial effusion. (4) Septic shock: Code(s): A41.9 - Sepsis, unspecified organism; R65.21 - Severe sepsis with septic shock Status: Acute Assessment and Plan: Resolved Patient in shock, likely related to the gangrene, aspiration pneumonia, status post cardiac arrest 02/28/2024: Blood cultures have been obtained and negative Status post 10 days of antibiotics 03/16 low-grade fever increase in WBC CT scan as above, repeat blood cultures and sputum pending UA suggestive of UTI. Urine cultures pending. Ha has been changed. Completed course of cefepime currently on low-dose Levophed which is likely secondary to sedation. Will or sedation today continue to titrate Levophed. (5) NSTEMI (non-ST elevated myocardial infarction): Code(s): I21.4 - Non-ST elevation (NSTEMI) myocardial infarction Status: Acute Assessment and Plan: -appreciate cardiology evaluation and recommendation -Continue aspirin, Lovenox and high-dose a statin - beta-brayden, losartan are on hold due to soft blood pressure. Will resume beta-brayden -03/02 heparin infusion was discontinued after 48 hours for NSTEMI by cardiology (6) Gangrene of right foot: Code(s): I96 - Gangrene, not elsewhere classified Status: Acute Assessment and Plan: CTA showed peripheral arterial disease with total occlusion of the right anterior and posterior tibial arteries and right peroneal artery with distal reconstitution of peroneal artery. This extensive gangrene of the right foot with gas seen on CT of the foot. General surgery spoke to the patient in the ER on the day of admission on 02/27 patient at that time agreed for below-knee amputation. Plan was to do a below- knee amputation on 02/29/2024 but patient had a cardiac arrest that night secondary to sepsis. Surgery at that time was deferred. Patient now is intubated sedated and unable to sign his consent.. Patient has no family and for many years at the halfway has had no visitor. He has 1 son which no one has been able to get hold off right several attempts. Considering patient has gangrene of the foot with no vascular supply leading to sepsis and if untreatable lead to his , Dr. Johns will proceed with amputation today, 03/05/2024. Dr. Collins and Dr. Johns has signed 2 physician consent considering patient's clearly expressed wishes prior to cardiac arrest at the time of admission, his current situation and inability to sign the consent form by himself at this time. 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 -complete 5 days of clindamycin 03/13: Discussed with surgery, there is flexion contractures of his amputation which may hinder in him getting prosthetics, patient may require above knee amputation (7) Osteomyelitis of toe of right foot: Code(s): M86.9 - Osteomyelitis, unspecified Status: Chronic Assessment and Plan: As above (8) Peripheral vascular disease: Code(s): I73.9 - Peripheral vascular disease, unspecified Status: Chronic Assessment and Plan: Patient has history of peripheral vascular disease, coronary artery disease -started on aspirin, patient will require Brilinta since he had a STEMI in 2020 but currently holding Brilinta due to surgery and bleeding (9) Type 2 diabetes mellitus: Qualifiers: 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 complication status: with other specified complication 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 terminal press operator insulin use: with terminal press operator use Qualified Code(s): E11.69 - Type 2 diabetes mellitus with other specified complication; Z79.4 - terminal operator (current) use of insulin Code(s): E11.9 - Type 2 diabetes mellitus without complications Status: Acute Assessment and Plan: Currently on sliding scale insulin, Accu-Cheks Hemoglobin A1c this admission is 8.2 (10) Chronic obstructive pulmonary disease: Code(s): J44.9 - Chronic obstructive pulmonary disease, unspecified Status: Chronic Assessment and Plan: Continue DuoNebs -continue Symbicort (11) Electrolyte abnormality: Code(s): E87.8 - Other disorders of electrolyte and fluid balance, not elsewhere classified Status: Acute Assessment and Plan: Hypernatremia, hold diuretics. continue free water flush. Sodium resolving (12) Ileus: Code(s): K56.7 - Ileus, unspecified Status: Acute Assessment and Plan: CT scan shows significant amount of tube feeds collected in the stomach. Patient also had high residuals. Patient has already been on Reglan. Bowel sounds are present but decreased. tube feeds restarted after PEG placement (13) Sinus tachycardia: Code(s): R00.0 - Tachycardia, unspecified Status: Acute Assessment and Plan: Does not appear in any respiratory distress. Continue BiPAP p.r.n.. beta-brayden held due to low blood pressure (14) Dysphagia: Code(s): R13.10 - Dysphagia, unspecified Status: Acute Assessment and Plan: Patient failed his bedside swallow evaluation and a modified barium swallow stud y prior to re-intubation which showed aspiration of thin liquids and pudding 03/24 PEG tube inserted. Tube feeds resumed and are at goal (15) DVT (deep venous thrombosis): Code(s): I82.409 - Acute embolism and thrombosis of unspecified deep veins of unspecified lower extremity Status: Acute Assessment and Plan: ultrasound shows clot surrounding the PICC line in the right upper extremity PICC line working and will be left in place for now Continue Lovenox at therapeutic dose Plan DVT prophylaxis: Lovenox therapeutic dose Stress ulcer prophylaxis: Protonix Nutrition: tube feeds ordered Code Status: Full code. PEG tube done. Patient awaits tracheostomy placement which is scheduled for 03/31 Subjective Date/time seen: 03/26/24 13:58 Interval history: intubated and sedated Trach planned for Sunday Review of Systems Review of Systems: 12 systems were reviewed and are negativ e except for as per HPI. All systems reviewed & are unremarkable except as noted in HPI and below (HPI) ROS unobtainable: Yes unobtainable due to endotracheal tube, unobtainable due to medical condition and unobtainable due to mental status Exam Narrative: General: Patient intubated sedated and in no acute distress HEENT:, pupils are equal and reactive from a sclera is clear Neck:? supple Respiratory:? Coarse breath sounds bilaterally, decreased at bases, adequate air entry, no wheezing Cardiac:? S1-S2 normal, regular rate and rhythm Abdomen:? Soft, nontender, nondistended, bowel sounds are decreased but present Extremities:? Right BKA stump under the dressing. Left dorsalis pedis is dopplerable Neuro:? Patient is sedated, not arousable or following commands today. Skin:? Patient has maceration of his perianal area, pressure ulcer on his buttocks. Psych:? Normal speech and affect Objective Data Vital Signs Vital Signs: Vital Signs - 24 hr 03/25/24 14:00 03/25/24 14:00 03/25/24 14:00 Temperature 99.7 F H Pulse Rate 99 99 99 Respiratory Rate 18 18 Blood Pressure 96/57 L Pulse Oximetry 99 Oxygen Delivery Fraction of Inspired Oxygen 03/25/24 14:00 03/25/24 15:08 03/25/24 15:09 Temperature Pulse Rate 99 100 99 Respiratory Rate 18 24 H Blood Pressure Pulse Oximetry 99 Oxygen Delivery Mechanical Ventilation Fraction of Inspired Oxygen 30 03/25/24 15:11 03/25/24 16:00 03/25/24 16:00 Temperature Pulse Rate 99 97 97 Respiratory Rate 17 16 16 Blood Pressure Pulse Oximetry Oxygen Delivery Fraction of Inspired Oxygen 03/25/24 16:00 03/25/24 16:00 03/25/24 16:00 Temperature Pulse Rate 96 Respiratory Rate Blood Pressure Pulse Oximetry 97 Oxygen Delivery Mechanical Ventilation Fraction of Inspired Oxygen 30 30 03/25/24 16:00 03/25/24 17:05 03/25/24 17:08 Temperature 100.2 F H 100.2 F H Pulse Rate 97 102 H Respiratory Rate 16 Blood Pressure 88/50 L Pulse Oximetry 97 99 Oxygen Delivery Mechanical Ventilation Fraction of Inspired Oxygen 30 03/25/24 17:47 03/25/24 18:05 03/25/24 18:00 Temperature 100.0 F H Pulse Rate 101 H 98 Respiratory Rate 16 16 Blood Pressure Pulse Oximetry Oxygen Delivery Fraction of Inspired Oxygen 03/25/24 18:00 03/25/24 18:00 03/25/24 18:00 Temperature 100.1 F H Pulse Rate 98 98 98 Respiratory Rate 16 16 Blood Pressure 91/51 L Pulse Oximetry 98 Oxygen Delivery Fraction of Inspired Oxygen 03/25/24 20:10 03/25/24 20:11 03/25/24 20:00 Temperature Pulse Rate 96 99 100 Respiratory Rate 16 Blood Pressure Pulse Oximetry 98 Oxygen Delivery Mechanical Ventilation Fraction of Inspired Oxygen 30 03/25/24 20:00 03/25/24 20:00 03/25/24 20:00 Temperature 99.9 F H Pulse Rate 94 94 Respiratory Rate 16 16 Blood Pressure 102/61 Pulse Oximetry 95 Oxygen Delivery Fraction of Inspired Oxygen 30 03/25/24 20:00 03/25/24 20:00 03/25/24 20:25 Temperature Pulse Rate 94 94 99 Respiratory Rate 16 16 17 Blood Pressure Pulse Oximetry 96 Oxygen Delivery Mechanical Ventilation Fraction of Inspired Oxygen 30 03/25/24 22:00 03/25/24 22:00 03/25/24 22:00 Temperature 99.8 F H Pulse Rate 91 91 91 Respiratory Rate 16 16 Blood Pressure 88/51 L Pulse Oximetry 98 Oxygen Delivery Fraction of Inspired Oxygen 03/25/24 22:00 03/25/24 23:11 03/25/24 23:30 Temperature Pulse Rate 91 99 90 Respiratory Rate 16 Blood Pressure 87/54 L Pulse Oximetry 99 Oxygen Delivery Mechanical Ventilation Fraction of Inspired Oxygen 30 03/25/24 23:46 03/25/24 23:46 03/25/24 23:00 Temperature 98.8 F 99.7 F H Pulse Rate 89 90 Respiratory Rate 16 16 Blood Pressure 89/65 L 87/53 L Pulse Oximetry 99 99 Oxygen Delivery Fraction of Inspired Oxygen 30 03/25/24 23:30 03/26/24 00:00 03/26/24 00:01 Temperature 99.7 F H 99.6 F Pulse Rate 90 87 86 Respiratory Rate 16 16 19 Blood Pressure 87/54 L 119/65 Pulse Oximetry 99 99 Oxygen Delivery Fraction of Inspired Oxygen 03/26/24 00:01 03/26/24 00:01 03/26/24 00:00 Temperature Pulse Rate 87 90 84 Respiratory Rate 19 Blood Pressure 119/66 Pulse Oximetry Oxygen Delivery Fraction of Inspired Oxygen 03/26/24 00:00 03/26/24 00:30 03/26/24 01:04 Temperature 99.6 F Pulse Rate 88 86 88 Respiratory Rate 18 16 Blood Pressure 112/61 94/52 L Pulse Oximetry 99 99 Oxygen Delivery Mechanical Ventilation Fraction of Inspired Oxygen 30 03/26/24 01:16 03/26/24 01:51 03/26/24 01:52 Temperature 99.6 F Pulse Rate 87 92 86 Respiratory Rate 16 17 Blood Pressure 94/52 L Pulse Oximetry 99 98 Oxygen Delivery Mechanical Ventilation Fraction of Inspired Oxygen 30 03/26/24 02:00 03/26/24 02:00 03/26/24 02:00 Temperature 99.3 F Pulse Rate 86 86 85 Respiratory Rate 16 16 Blood Pressure 96/54 L Pulse Oximetry 98 Oxygen Delivery Fraction of Inspired Oxygen 03/26/24 02:00 03/26/24 02:15 03/26/24 04:00 Temperature 102.1 F H 99.1 F Pulse Rate 85 100 87 Respiratory Rate 16 24 H 16 Blood Pressure 101/66 99/55 L Pulse Oximetry 99 98 Oxygen Delivery Fraction of Inspired Oxygen 03/26/24 04:00 03/26/24 04:00 03/26/24 04:00 Temperature Pulse Rate 87 85 Respiratory Rate 16 16 Blood Pressure Pulse Oximetry Oxygen Delivery Fraction of Inspired Oxygen 30 03/26/24 04:00 03/26/24 04:20 03/26/24 04:30 Temperature Pulse Rate 85 85 93 Respiratory Rate 16 16 Blood Pressure 99/55 L Pulse Oximetry 98 Oxygen Delivery Mechanical Ventilation Fraction of Inspired Oxygen 30 03/26/24 04:32 03/26/24 04:44 03/26/24 04:00 Temperature Pulse Rate 91 94 82 Respiratory Rate 16 Blood Pressure Pulse Oximetry 97 Oxygen Delivery Mechanical Ventilation Fraction of Inspired Oxygen 30 03/26/24 05:59 03/26/24 06:00 03/26/24 06:00 Temperature 98.7 F Pulse Rate 86 84 84 Respiratory Rate 16 16 Blood Pressure 93/50 L Pulse Oximetry 95 Oxygen Delivery Fraction of Inspired Oxygen 03/26/24 06:00 03/26/24 06:00 03/26/24 07:55 Temperature Pulse Rate 84 84 84 Respiratory Rate 16 Blood Pressure 93/50 L Pulse Oximetry 97 Oxygen Delivery Mechanical Ventilation Fraction of Inspired Oxygen 30 03/26/24 07:55 03/26/24 08:00 03/26/24 08:15 Temperature 98.4 F Pulse Rate 84 88 91 Respiratory Rate 16 15 16 Blood Pressure 108/60 Pulse Oximetry 97 Oxygen Delivery Fraction of Inspired Oxygen 03/26/24 08:00 03/26/24 08:51 03/26/24 08:52 Temperature Pulse Rate 92 88 88 Respiratory Rate 18 17 Blood Pressure 103/56 L Pulse Oximetry Oxygen Delivery Fraction of Inspired Oxygen 03/26/24 10:00 03/26/24 10:00 03/26/24 10:00 Temperature Pulse Rate 85 85 85 Respiratory Rate 18 18 Blood Pressure 99/53 L Pulse Oximetry Oxygen Delivery Fraction of Inspired Oxygen 03/26/24 10:00 03/26/24 08:00 03/26/24 11:18 Temperature 98.4 F Pulse Rate 84 84 Respiratory Rate 17 Blood Pressure 101/51 L Pulse Oximetry 97 97 Oxygen Delivery Mechanical Ventilation Fraction of Inspired Oxygen 30 30 03/26/24 12:00 03/26/24 08:47 03/26/24 08:00 Temperature 98.5 F Pulse Rate 83 89 92 Respiratory Rate 16 18 17 Blood Pressure 100/51 L Pulse Oximetry 97 Oxygen Delivery Fraction of Inspired Oxygen 03/26/24 12:00 03/26/24 12:00 03/26/24 12:00 Temperature Pulse Rate 83 84 83 Respiratory Rate 18 18 Blood Pressure 99/50 L Pulse Oximetry Oxygen Delivery Fraction of Inspired Oxygen 03/26/24 08:00 03/26/24 08:00 03/26/24 13:45 Temperature Pulse Rate 92 84 Respiratory Rate 17 Blood Pressure 113/60 Pulse Oximetry Oxygen Delivery Mechanical Ventilation Fraction of Inspired Oxygen 30 03/26/24 13:45 03/26/24 13:53 Temperature Pulse Rate 84 87 Respiratory Rate 16 Blood Pressure Pulse Oximetry 97 Oxygen Delivery Mechanical Ventilation Fraction of Inspired Oxygen 30 Intake/Output Intake/Output: Intake & Output 03/23/24 03/24/24 03/25/24 03/26/24 23:59 23:59 23:59 23:59 Intake Total 1884.3 1446.0 2600.4 1064.7 Output Total 775 925 725 350 Balance 1109.3 521.0 1875.4 714.7 Meds/Results Medications: Active Medications Generic Name Dose Route Start Last Admin Trade Name Freq PRN Reason Stop Dose Admin Acetaminophen 650 mg 03/25/24 12:39 03/25/24 17:05 Acetaminophen Elixir 325 Mg/10.15 Ml Udc PO 650 mg Q4H PRN Administration Mild Pain (1-3) or Fever Albuterol/Ipratropium 3 ml 02/29/24 02:00 03/26/24 13:45 Ipratropium 0.5 Mg/Albuterol Sulfate 2.5 Mg Ampul.Neb 3 Ml INHALATION 3 ml Q6HRT JASON Administration Alteplase, Recombinant 2 mg 03/06/24 09:45 03/22/24 16:56 Alteplase 2 Mg Vial (Cathflo) IV PUSH 2 mg ONCE PRN Administration Line Occlusion Aspirin 81 mg 03/09/24 08:00 03/26/24 08:30 Aspirin 81 Mg Chewable Tablet FEED TUBE 81 mg DAILY@0800 [facility] Administration Bisacodyl 10 mg 03/24/24 07:31 03/24/24 16:04 Bisacodyl 10 Mg Suppository RECTAL 10 mg QAM PRN Administration Constipation Dextrose 12.5 gm 02/28/24 19:23 Dextrose 50% 25 Gm/50 Ml Syringe IV PUSH PRN PRN Hypoglycemia Protocol Enoxaparin Sodium 90 mg 03/23/24 07:45 03/26/24 08:30 Enoxaparin 100 Mg/Ml Syringe SUB-Q 90 mg Q12HR JASON Administration Glucagon 1 mg 02/28/24 19:23 Glucagon For Inj 1 Mg Vial IM PRN PRN Hypoglycemia Protocol Glucose 15 gm 03/08/24 10:19 Glucose Oral Gel 15 Gm Of Glucse In 37.5 Gm Tube FEED TUBE PRN PRN Hypoglycemia Protocol Dextrose 1,000 mls @ 100 mls/hr 02/28/24 19:23 Dextrose 5% 1,000 Ml IVPB PRN PRN Hypoglycemia Protocol Fentanyl Citrate 2,500 mcg in 250 mls @ 5 mls/hr 03/22/24 12:15 03/26/24 12:00 Fentanyl 2,500 Mcg/Ns 250 Ml IV CONT 50 mcg/hr .Q50H JASON 5 mls/hr Titration Protocol 50 MCG/HR Midazolam HCl 100 mg in 100 mls @ 2 mls/hr 03/22/24 12:15 03/26/24 12:00 Versed 100 Mg/Ns 100 Ml IV CONT 2 mg/hr .Q50H JASON 2 mls/hr Titration Protocol 2 MG/HR Norepinephrine Bitartrate 8 mg in 250 mls @ 3.75 mls/hr 03/25/24 22:55 03/26/24 12:00 Levophed 8 Mg/D5w 250 Ml IV CONT 2 mcg/min .Q24H JSAON 3.75 mls/hr Titration Protocol 2 MCG/MIN Insulin Aspart 3 - 6 units 03/15/24 17:00 03/26/24 12:41 Insulin Aspart (*Bkc) 100 Units/Ml SUB-Q Not Given Q4HR JASON Protocol Insulin Glargine 55 units 03/15/24 09:00 03/16/24 10:44 Insulin Glargine (*Bkc) 100 Units/Ml SUB-Q 55 units DAILY JASON Administration Labetalol HCl 20 mg 03/08/24 10:06 03/08/24 16:48 Labetalol Hcl Inj 100 Mg/20 Ml Vial IV PUSH 20 mg Q4H PRN Administration SBP > 160 and HR> 60 -1st choice Morphine Sulfate 2 mg 03/19/24 19:39 03/21/24 20:36 Morphine Sulfate (*Crx) 2 Mg/Ml Inj IV PUSH 2 mg Q2HR PRN Administration Pain Rated 7-10 Multi-Ingred Cream/Lotion/Oil/Oint 1 applic 03/22/24 21:00 03/26/24 08:31 Mineral Oil/White Petrolatum Ointment EACH EYE 1 applic Q12HR JASON Administration Pantoprazole Sodium 40 mg 03/02/24 09:00 03/26/24 08:31 Pantoprazole Sodium Iv 40 Mg Vial IV PUSH 40 mg Q12HR JASON Administration Polyethylene Glycol 17 gm 03/24/24 09:00 03/26/24 08:31 Polyethylene Glycol 3350 17 Gm Powd.Pack PO 17 gm QAM JASON Administration Sodium Chloride 10 ml 02/29/24 06:00 03/26/24 06:09 Central Line Flush IV PUSH 10 ml Q8HR JASON Administration Sodium Chloride 20 ml 02/28/24 23:37 Central Line Flush IV PUSH PRN PRN after blood draws Sodium Chloride 20 ml 03/21/24 08:57 Central Line Flush IV PUSH PRN PRN after blood draws Sodium Chloride 10 ml 03/21/24 08:57 Central Line Flush IV PUSH PRN PRN with TPN bag changes Sodium Chloride 10 ml 03/21/24 14:00 03/26/24 06:09 Central Line Flush IV PUSH 10 ml Q8HR JASON Administration Radiology Results: ITS Impressions Lower Extremity CTA 02/28/24 14:54 IMPRESSION: 1. 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 2. Moderate stenosis of right popliteal artery. 3. Osteomyelitis involving first proximal and distal phalanges and head of first metatarsal. Head CT 02/29/24 05:55 Impression: No intracranial hemorrhage, mass, or acute infarct. Stable chronic encephalomalacia in the high left parietal lobe. Atrophy and chronic white matter changes, as above. Chest/Abdomen/Pelvis CTA 02/29/24 06:02 Impression: Extensive right upper lobe consolidation and more mild right middle lobe consolidation, consistent with pneumonia. Consider aspiration pneumonia. Moderate to large right pleural effusion with complete atelectasis of the right lower lobe. Moderate left pleural effusion with minimal left basilar atelectasis. Small pericardial effusion. No definite acute abnormality in the abdomen or pelvis. Chronic compression fractures, as above. Renal Ultrasound 03/03/24 15:45 IMPRESSION: 1. Normal kidneys without hydronephrosis. 2. Small amount of ascites in the abdomen and pelvis. Abdomen Ultrasound 03/13/24 16:52 IMPRESSION: 1. No etiology for abnormal liver function tests. 2. Normal hepatic veins and main portal vein. Right and left portal veins and proper hepatic artery not evaluated. 3. Right pleural effusion. Vascular Ultrasound 03/13/24 16:52 IMPRESSION: 1. No etiology for abnormal liver function tests. 2. Normal hepatic veins and main portal vein. Right and left portal veins and proper hepatic artery not evaluated. 3. Right pleural effusion. Chest/Abdomen/Pelvis CT 03/16/24 21:51 IMPRESSION: Anasarca Large pleural effusions with prominent compressive atelectasis of the lower lobes especially, dependent atelectasis of the middle and upper lobes Heart size. Prominent coronary artery atherosclerotic calcifications Minimal pericardial effusion Prominent diffuse thickening of urinary bladder wall suggesting cystitis area Ha catheter in bladder lumen Very prominent amount of fluid and large fluid level within the stomach despite presence of NG tube T11 and L1 moderate anterior wedge compression fractures, likely chronic Thoracentesis Ultrasound 03/18/24 10:27 IMPRESSION: 1. Successful ultrasound-guided thoracentesis yielding 550 mL of doris-colored fluid. Modified Barium Swallow 03/21/24 15:25 IMPRESSION: 1. Aspiration of thin liquids and pudding. 2. Please refer to the speech therapy report for recommendations. Tube Placement 03/22/24 11:33 IMPRESSION: 1. Fluoroscopy guided nasoenteric tube placement with tip in the stomach. Abdomen X-Ray 03/22/24 12:47 IMPRESSION: 1. Nasogastric tube tip in the stomach. 2. Nasoenteric tube tip in the stomach. Venous Doppler Study 03/22/24 16:38 IMPRESSION: Nonocclusive right subclavian vein thrombus. No additional deep venous thrombosis detected in the remaining bilateral upper extremity veins. Chest X-Ray 03/26/24 06:40 Impression: Bilateral pleural effusions and moderate pulmonary edema pattern, as above. Support tubes, as above. Labs Labs: Laboratory Results - last 24 hr 03/25/24 03/25/24 03/26/24 16:19 19:53 00:39 WBC RBC Hgb Hct MCV MCH MCHC RDW Plt Count MPV Puncture Site ABG pH ABG pCO2 ABG pO2 ABG PO2/FiO2 Ratio ABG HCO3 ABG O2 Saturation ABG O2 Content ABG Base Excess A-a Gradient Oxyhemoglobin Carboxyhemoglobin Methemoglobin Reduced Hemoglobin Total Hemoglobin O2 Delivery Device O2 Liters/Min Minute Volume Vent Rate Vent Mode FiO2 Tidal Volume PEEP Peak Inspir Pressure Pressure Support Sodium Potassium Chloride Carbon Dioxide Anion Gap BUN Creatinine Estim Creat Clear Calc Estimated GFR Glucose POC Capillary Glucose 189 H 196 H 206 H Calcium Magnesium Total Bilirubin AST ALT Alkaline Phosphatase Total Protein Albumin 03/26/24 03/26/24 03/26/24 04:26 04:29 04:42 WBC 8.0 RBC 2.64 L Hgb 7.5 L Hct 25.5 L MCV 96.6 MCH 28.4 MCHC 29.4 L RDW 18.9 H Plt Count 183 MPV 10.3 Puncture Site Right radial ABG pH 7.467 H ABG pCO2 40.5 ABG pO2 98.1 ABG PO2/FiO2 Ratio 3.27 ABG HCO3 28.6 H ABG O2 Saturation 97.8 ABG O2 Content 11.7 L ABG Base Excess 4.5 A-a Gradient 68.2 Oxyhemoglobin 96.6 Carboxyhemoglobin 1.4 Methemoglobin 0.0 Reduced Hemoglobin 2.0 Total Hemoglobin 8.5 L O2 Delivery Device Ventilator O2 Liters/Min Not Reportable Minute Volume Not Reportable Vent Rate 16 Vent Mode Cmv FiO2 30 Tidal Volume 380 PEEP 8 Peak Inspir Pressure Not Reportable Pressure Support Not Reportable Sodium 144 Potassium 4.0 Chloride 111 H Carbon Dioxide 31 H Anion Gap 2 L BUN 21 H Creatinine 0.80 Estim Creat Clear Calc 79 Estimated GFR > 60 Glucose 169 H POC Capillary Glucose 160 H Calcium 7.6 L Magnesium 2.2 Total Bilirubin 0.5 AST 25 ALT 20 Alkaline Phosphatase 114 Total Protein 6.0 L Albumin 2.6 L 03/26/24 03/26/24 07:57 11:47 WBC RBC Hgb Hct MCV MCH MCHC RDW Plt Count MPV Puncture Site ABG pH ABG pCO2 ABG pO2 ABG PO2/FiO2 Ratio ABG HCO3 ABG O2 Saturation ABG O2 Content ABG Base Excess A-a Gradient Oxyhemoglobin Carboxyhemoglobin Methemoglobin Reduced Hemoglobin Total Hemoglobin O2 Delivery Device O2 Liters/Min Minute Volume Vent Rate Vent Mode FiO2 Tidal Volume PEEP Peak Inspir Pressure Pressure Support Sodium Potassium Chloride Carbon Dioxide Anion Gap BUN Creatinine Estim Creat Clear Calc Estimated GFR Glucose POC Capillary Glucose 202 H 187 H Calcium Magnesium Total Bilirubin AST ALT Alkaline Phosphatase Total Protein Albumin Quality VTE Prophylaxis VTE prophylaxis: pharmacologic ordered
[2024-03-26 15:55] LABS: Glucose Point of Care 169 mg/dl (65-105)
[2024-03-26] MEDS: FENTANYL 2,500MCG/NS250ML(*CRX 2,500 MCG/250 ML BAG IV CONT (17:31)
[2024-03-26 21:15] LABS: Glucose Point of Care 196 mg/dl (65-105)
[2024-03-27] VITALS (41 sets, daily range): BP systolic 81–124; BP diastolic 38–66; PULSE 80–106; RESP 16–24; TEMP 36.8–37.9; O2SAT 89–99
[2024-03-27 00:10] LABS: Glucose Point of Care 196 mg/dl (65-105)
[2024-03-27] MEDS: IPRATROPIUM 0.5 MG/ALBUTEROL SULFATE 2.5 MG AMPUL.NEB 3 ML INHALATION ×4 (01:40→20:26)
[2024-03-27 03:42] LABS: Hemoglobin 7.7 g/dL (14.0-18.0); Mean Corpuscular HGB Conc 29.6 g/dl (32-36); Mean Corpuscular Hemoglobin 28.4 pg (26-34); Mean Corpuscular Volume 95.9 fl (80-100); Platelet Count Result 189 k/mm3 (150-375); Red Blood Count 2.71 M/mm3 (4.6-6.20); Red Cell Distribution Width 18.7 % (11.5-14.5)
[2024-03-27 03:52] LABS: Alanine Aminotransferase 19 U/L (6-50); Albumin Level 2.7 g/dL (3.5-5.1); Alkaline Phosphatase 111 U/L (38-126); Anion Gap 4 mmol/L (4-12); Aspartate Amino Transferase 24 U/L (17-59); Bilirubin,Total 0.5 mg/dL (0.2-1.3); Blood Urea Nitrogen 21 mg/dL (9-20); Calcium 7.8 mg/dL (8.4-10.2); Carbon Dioxide 31 mmol/L (22-30); Chloride 109 mmol/L (98-107); Estimated CRCL calculation 79 ml/min; Estimated Glomerular Filt Rate > 60; Glucose 199 mg/dL (65-110); Magnesium 2.1 mg/dL (1.6-2.3); Potassium 4.3 mmol/L (3.4-5.0); Sodium 144 mmol/L (137-145)
[2024-03-27 04:40] LABS: Fractional Inspired Oxygen 30 %
--- NOTE | 2024-03-27 08:30 | WPDINTPN ---
Progress Note: A&P Assessment and Plan (1) Acute respiratory failure with hypoxia: Code(s): J96.01 - Acute respiratory failure with hypoxia Status: Acute Assessment and Plan: Acute respiratory failure likely related to cardiac arrest, aspiration pneumonia, NSTEMI, hypoxia, septic shock Worsening likely secondary to ARDS versus pulmonary edema Intubated 02/27 02/28 Chest CTA: Extensive right upper lobe consolidation and more mild right middle lobe consolidation, consistent with pneumonia. Consider aspiration pneumonia.Moderate to large right pleural effusion with complete atelectasis of the right lower lobe. Moderate left pleural effusion with minimal left basilar atelectasis. Small pericardial effusion. No definite acute abnormality in the abdomen or pelvis. Chronic compression fractures, as above . -03/07 right thoracentesis with 1 L fluid removed -03/08 left-sided thoracentesis 550 mL -03/11: patient was in pressure support ventilation 02/18, with decrease tidal volumes in the upper 200s. place patient back on CMV, I have asked the bedside RN to decrease the Precedex infusion once patient is more awake will place back on spontaneous breathing trials 03/12: Place patient on SBT 04/17, low tidal volumes, low respiratory rate. Patient had replaced back on CMV mode of ventilation. -even on ASV patient is breathing only 7-8 times a minute 03/13: Off Precedex infusion overnight, placed patient on pressure support ventilation 04/17, initially did well but not significantly tachycardic and tachypneic and in respiratory distress, patient was placed back on CMV mode of ventilation and low-dose was 03/14 8/5 PSV SBT done for more than 1 hour. RSBI, ABG and Vitals acceptable. Pt awake and following commands. Patient was extubated. Initially patient did well and was on nasal cannula and was able to communicate. Over 12 hours patient became more hypoxic with increased respiratory distress and tachypnea. I spoke to patient post extubation and was agreeable to re-intubation if needed and stated that 'he is not ready to ' and 'do what ever it takes'. He was re intubated at night. I also mentioned to him that he may need tracheostomy and PEG tube placement if he gets we intubated and is not weanable. He told me 'to proceed with it if needed'. Solu-Medrol IV given for airway edema and will be continued for 24 hours -completed course of Solu-Medrol -continue bronchodilators -CT scan shows large pleural effusions bilaterally. I will request IR for thoracentesis.. Patient is on minimal ventilator setting but has failed trials initially multiple times and then once extubated he was reintubated within 12 hours. I will treat try again after thoracentesis to see patient is weanable from the vent otherwise will proceed with trach and PEG as patient has been on ventilator for more than 2 weeks. 03/17 right thoracentesis 1 L fluid was removed 03/18 left thoracentesis 550 mL fluid was removed Will also continue diuretics. 03/19 patient was extubated after weaning trial 03/20 continue nasal cannula, BiPAP p.r.n., hold diuretics, incentive spirometry, spoke to patient after extubation yesterday he is willing to be intubated if needed and proceed with trach and PEG if needed hopefully we can avoid that situation 03/21 patient continues to require BiPAP intermittently and tolerates nasal cannula. He appears quite weak although he does have borderline cough. Continue incentive spirometry. P.r.n. BiPAP. BiPAP at night. Nasal cannula as tolerated. Patient remains at risk of requiring intubation. I spoke to patient again and mention that to him and he verbalized understanding by noting his head. I will check chest x-ray. Continue ICU monitoring 03/22 discussed with the patient emphasized importance of using BiPAP for increased work of breathing and at night due to his deconditioning and weakness. He is currently saturating on nasal cannula and appears not in any respiratory distress. later patient deteriorated and required re-intubation 03/23 ABG and chest x-ray. patient has failed extubation twice and has been on ventilator for close to 20 days. Patient is awaiting trach now . ENT consulted ABG and chest x-ray reviewed. Continue mechanical ventilation. Tracheostomy scheduled for 03/31. no ENT coverage until then (2) Elevated LFTs: Code(s): R79.89 - Other specified abnormal findings of blood chemistry Status: Acute Assessment and Plan: 03/13: Significant elevation in LFTs, AST 2280, ALT 988, alk-phos 722 -patient has been hemodynamically stable, no hypotension noted in the last 24-48 hours -statin discontinued. Hold Tylenol -no tenderness in the right upper, lower quadrant or epigastric region on exam -negative vital hepatitis panel, right upper quadrant ultrasound with Doppler negative for hepatic or portal vein thrombosis -patient evaluated by GI -levels now improved. Monitor (3) Cardiac arrest with pulseless electrical activity: Code(s): I46.9 - Cardiac arrest, cause unspecified Status: Acute Assessment and Plan: Cardiac arrest, secondary to unknown etiology. Possible aspiration pneumonia, NSTEMI, hypoxia, septic shock, infection -see code blue sheet for the details -patient currently intubated, vasopressors for blood pressure support have been weaned off -appreciate cardiology following the patient 02/29/2024 echocardiogram Summary 1. Technically difficult study with limited views. 2. Left ventricular chamber dimension is normal. 3. Left ventricular systolic function is mildly reduced, estimated at 45-50%. The apex appears to be hypokinetic. 4. There is mildly increased left ventricular wall thickness. 5. The left ventricular diastolic function is grade I diastolic dysfunction. 6. Right ventricular systolic function is normal. 7. Left atrial chamber dimension is moderately enlarged. 8. There is mild to moderate tricuspid valve regurgitation. 9. There is small anterior pericardial effusion. (4) Septic shock: Code(s): A41.9 - Sepsis, unspecified organism; R65.21 - Severe sepsis with septic shock Status: Acute Assessment and Plan: Resolved Patient in shock, likely related to the gangrene, aspiration pneumonia, status post cardiac arrest 02/28/2024: Blood cultures have been obtained and negative Status post 10 days of antibiotics 03/16 low-grade fever increase in WBC CT scan as above, repeat blood cultures and sputum pending UA suggestive of UTI. Urine cultures pending. Ha has been changed. Completed course of cefepime currently on low-dose Levophed which is likely secondary to sedation. Will or sedation today continue to titrate Levophed. (5) NSTEMI (non-ST elevated myocardial infarction): Code(s): I21.4 - Non-ST elevation (NSTEMI) myocardial infarction Status: Acute Assessment and Plan: -appreciate cardiology evaluation and recommendation -Continue aspirin, Lovenox and high-dose a statin - beta-brayden, losartan are on hold due to soft blood pressure. Will resume beta-brayden -03/02 heparin infusion was discontinued after 48 hours for NSTEMI by cardiology (6) Gangrene of right foot: Code(s): I96 - Gangrene, not elsewhere classified Status: Acute Assessment and Plan: CTA showed peripheral arterial disease with total occlusion of the right anterior and posterior tibial arteries and right peroneal artery with distal reconstitution of peroneal artery. This extensive gangrene of the right foot with gas seen on CT of the foot. General surgery spoke to the patient in the ER on the day of admission on 02/27 patient at that time agreed for below-knee amputation. Plan was to do a below-knee amputation on 02/29/2024 but patient had a cardiac arrest that night secondary to sepsis. Surgery at that time was deferred. Patient now is intubated sedated and unable to sign his consent.. Patient has no family and for many years at the shelter has had no visitor. He has 1 son which no one has been able to get hold off right several attempts. Considering patient has gangrene of the foot with no vascular supply leading to sepsis and if untreatable lead to his , Dr. Johns will proceed with amputation today, 03/05/2024. Dr. Collins and Dr. Johns has signed 2 physician consent considering patient's clearly expressed wishes prior to cardiac arrest at the time of admission, his current situation and inability to sign the consent form by himself at this time. 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 -complete 5 days of clindamycin 03/13: Discussed with surgery, there is flexion contractures of his amputation which may hinder in him getting prosthetics, patient may require above knee amputation (7) Osteomyelitis of toe of right foot: Code(s): M86.9 - Osteomyelitis, unspecified Status: Chronic Assessment and Plan: As above (8) Peripheral vascular disease: Code(s): I73.9 - Peripheral vascular disease, unspecified Status: Chronic Assessment and Plan: Patient has history of peripheral vascular disease, coronary artery disease -started on aspirin, patient will require Brilinta since he had a STEMI in 2020 but currently holding Brilinta due to surgery and bleeding (9) Type 2 diabetes mellitus: Qualifiers: 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 complication status: with other specified complication 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 early childhood director insulin use: with assisted use Qualified Code(s): E11.69 - Type 2 diabetes mellitus with other specified complication; Z79.4 - ocean transportation intermediary (current) use of insulin Code(s): E11.9 - Type 2 diabetes mellitus without complications Status: Acute Assessment and Plan: Currently on sliding scale insulin, Accu-Cheks Hemoglobin A1c this admission is 8.2 (10) Chronic obstructive pulmonary disease: Code(s): J44.9 - Chronic obstructive pulmonary disease, unspecified Status: Chronic Assessment and Plan: Continue DuoNebs -continue Symbicort (11) Electrolyte abnormality: Code(s): E87.8 - Other disorders of electrolyte and fluid balance, not elsewhere classified Status: Acute Assessment and Plan: Hypernatremia, hold diuretics. continue free water flush. Sodium improving (12) Ileus: Code(s): K56.7 - Ileus, unspecified Status: Acute Assessment and Plan: CT scan shows significant amount of tube feeds collected in the stomach. Patient also had high residuals. Patient has already been on Reglan. Bowel sounds are present but decreased. tube feeds restarted after PEG placement 03/26 tube feeds held due to high residuals. I have start Reglan. Restart tube feeds at low rate at noon today. (13) Sinus tachycardia: Code(s): R00.0 - Tachycardia, unspecified Status: Acute Assessment and Plan: Does not appear in any respiratory distress. Continue BiPAP p.r.n.. beta-brayden held due to low blood pressure (14) Dysphagia: Code(s): R13.10 - Dysphagia, unspecified Status: Acute Assessment and Plan: Patient failed his bedside swallow evaluation and a modified barium swallow study prior to re-intubation which showed aspiration of thin liquids and pudding 03/24 PEG tube inserted. Tube feeds As above (15) DVT (deep venous thrombosis): Code(s): I82.409 - Acute embolism and thrombosis of unspecified deep veins of unspecified lower extremity Status: Acute Assessment and Plan: ultrasound shows clot surrounding the PICC line in the right upper extremity PICC line working and will be left in place for now Continue Lovenox at therapeutic dose Plan DVT prophylaxis: Lovenox therapeutic dose Stress ulcer prophylaxis: Protonix Nutrition: tube feeds Code Status: Full code. PEG tube done. Patient awaits tracheostomy placement which is scheduled for 03/31 03/15 Patient has no family available. Patient was extubated on 03/14 and I spoke to patient post extubation. I mentioned possibility of him needing re-intubation and he was agreeable stating that he is not ready to at this time. He stated that do whatever needs to be done to keep me alive. I also mentioned to him that if he gets reintubated and is unable to be weaned he will need tracheostomy and PEG tube placement and he states that he is agreeable to do it if needed. He did mention that he has some nephews in area which can be contacted. sales marketing coordinator was provided that information. 03/19 I confirmed with patient again regarding his code status he is willing to get reintubated if needed and is willing to proceed with trach and PEG if needed. He wishes to be full code. 03/23 Finally patient's son arrived at bedside and I spoke to him with his and patient's ex- in the conference room. I updated them in detail about the details of patient's admission presentation and hospital course till now. He states that he has not been touch with his dad for last 10 years. He is willing to be the POA at this time. I answered all his questions and explained him the patient is currently in respiratory failure with failure to wean requiring re-intubation x2, congestive Heart Care earlier, gangrene of right foot requiring amputation, sepsis, UTI, dysphagia and he will need trach and PEG. They understand and agree with patient's wishes to proceed with trach and PEG at this time. He was hoping the patient can go to a facility close to where he lives. Critical Care Time Spent: 32 minutes Due to a high probability of clinically significant, life threatening deterioration, the patient required my highest level of preparedness to intervene emergently and I personally spent this critical care time directly and personally managing the patient. This critical care time included obtaining a history; examining the patient; pulse oximetry; ordering and review of studies; arranging urgent treatment with development of a management plan; evaluation of patient's response to treatment; frequent reassessment; and discussions with other providers. It was exclusive of separately billable procedures and treating other patients and teaching time. Please see Assessment and Plan section and the rest of the note for further information on patient assessment and treatment This dictation may have been done utilizing a voice recognition system. Attempts have been made to correct errors. However, there may be uncorrected grammatical, spelling, and recognitions errors present. Subjective Date/time seen: 03/27/24 Overnight events reviewed. no significant change overnight except tube feeds were held due to high residuals.Afebrile Continues to be on mechanical ventilation 30% FiO2 off vasopressors Continues to be sedated with low-dose Versed and fentanyl other Vitals acceptable Interval history: Reason for consult: Status post PEA arrest, right foot gangrene with cellulitis, shock 02/27: Intubated 03/05:Right below-knee amputation with placement of posterior Ortho Glass splint 03/14: extubated and reintubated 03/17 right-sided thoracentesis and 1 L fluid was removed 03/18: Left thoracentesis and 550 mL fluid was removed 03/19 extubated 03/22 reintubated 03/24 Peg tube placed Review of Systems Review of Systems: ROS unobtainable: Yes unobtainable due to endotracheal tube, unobtainable due to medical condition and unobtainable due to mental status Exam Narrative: General: Patient intubated sedated and in no acute distress HEENT:, pupils are equal and reactive from a sclera is clear Neck:? supple Respiratory:? Coarse breath sounds bilaterally, decreased at bases, adequate air entry, no wheezing Cardiac:? S1-S2 normal, regular rate and rhythm Abdomen:? Soft, nontender, nondistended, bowel sounds are decreased but present Extremities:? Right BKA stump under the dressing. Left dorsalis pedis is dopplerable Neuro:? Patient is sedated, not arousable or following commands today. Skin:? Patient has maceration of his perianal area, pressure ulcer on his buttocks. Psych:? Normal speech and affect Objective Data Vital Signs Vital Signs: Vital Signs - 24 hr 03/26/24 08:51 03/26/24 08:52 03/26/24 10:00 Temperature Pulse Rate 88 88 85 Respiratory Rate 17 18 Blood Pressure 103/56 L Pulse Oximetry Oxygen Delivery Fraction of Inspired Oxygen 03/26/24 10:00 03/26/24 10:00 03/26/24 10:00 Temperature 36.9 C Pulse Rate 85 85 84 Respiratory Rate 18 17 Blood Pressure 99/53 L 101/51 L Pulse Oximetry 97 Oxygen Delivery Fraction of Inspired Oxygen 03/26/24 11:18 03/26/24 12:00 03/26/24 08:47 Temperature 36.9 C Pulse Rate 84 83 89 Respiratory Rate 16 18 Blood Pressure 100/51 L Pulse Oximetry 97 97 Oxygen Delivery Mechanical Ventilation Fraction of Inspired Oxygen 30 03/26/24 12:00 03/26/24 12:00 03/26/24 12:00 Temperature Pulse Rate 83 84 83 Respiratory Rate 18 18 Blood Pressure 99/50 L Pulse Oximetry Oxygen Delivery Fraction of Inspired Oxygen 03/26/24 13:45 03/26/24 13:45 03/26/24 13:53 Temperature Pulse Rate 84 84 87 Respiratory Rate 17 16 Blood Pressure Pulse Oximetry 97 Oxygen Delivery Mechanical Ventilation Fraction of Inspired Oxygen 30 03/26/24 14:00 03/26/24 12:00 03/26/24 12:00 Temperature Pulse Rate 89 Respiratory Rate 16 Blood Pressure 102/52 L Pulse Oximetry 97 Oxygen Delivery Mechanical Ventilation Fraction of Inspired Oxygen 30 30 03/26/24 14:00 03/26/24 14:00 03/26/24 14:00 Temperature Pulse Rate 89 89 89 Respiratory Rate 16 16 Blood Pressure 102/52 L Pulse Oximetry Oxygen Delivery Fraction of Inspired Oxygen 03/26/24 16:30 03/26/24 16:00 03/26/24 17:31 Temperature 36.9 C Pulse Rate 90 91 91 Respiratory Rate 16 17 Blood Pressure 112/57 L Pulse Oximetry 97 97 Oxygen Delivery Mechanical Ventilation Fraction of Inspired Oxygen 30 03/26/24 17:31 03/26/24 16:00 03/26/24 18:00 Temperature 36.9 C Pulse Rate 91 91 86 Respiratory Rate 17 16 18 Blood Pressure 96/48 L Pulse Oximetry 96 Oxygen Delivery Fraction of Inspired Oxygen 03/26/24 10:00 03/26/24 12:00 03/26/24 14:00 Temperature Pulse Rate 83 83 89 Respiratory Rate Blood Pressure Pulse Oximetry Oxygen Delivery Fraction of Inspired Oxygen 03/26/24 16:00 03/26/24 16:00 03/26/24 16:00 Temperature Pulse Rate 88 Respiratory Rate Blood Pressure Pulse Oximetry Oxygen Delivery Mechanical Ventilation Fraction of Inspired Oxygen 30 30 03/26/24 18:00 03/26/24 18:50 03/26/24 16:00 Temperature Pulse Rate 86 85 91 Respiratory Rate 17 17 Blood Pressure Pulse Oximetry Oxygen Delivery Fraction of Inspired Oxygen 03/26/24 18:00 03/26/24 18:00 03/26/24 16:00 Temperature Pulse Rate 86 86 91 Respiratory Rate 17 Blood Pressure 96/48 L 112/57 L Pulse Oximetry Oxygen Delivery Fraction of Inspired Oxygen 03/26/24 18:00 03/26/24 20:05 03/26/24 20:05 Temperature Pulse Rate 86 85 85 Respiratory Rate 16 16 Blood Pressure Pulse Oximetry 99 Oxygen Delivery Mechanical Ventilation Fraction of Inspired Oxygen 30 03/26/24 20:00 03/26/24 20:00 03/26/24 20:00 Temperature 37.0 C Pulse Rate 85 85 Respiratory Rate 17 Blood Pressure 98/47 L Pulse Oximetry 97 Oxygen Delivery Fraction of Inspired Oxygen 30 03/26/24 20:00 03/26/24 20:00 03/26/24 20:00 Temperature Pulse Rate 85 85 85 Respiratory Rate 17 16 Blood Pressure 98/47 L Pulse Oximetry Oxygen Delivery Fraction of Inspired Oxygen 03/26/24 20:45 03/26/24 22:00 03/26/24 22:00 Temperature 37.1 C Pulse Rate 85 94 95 Respiratory Rate 16 16 Blood Pressure 106/52 L Pulse Oximetry 99 94 Oxygen Delivery Mechanical Ventilation Fraction of Inspired Oxygen 30 03/26/24 22:00 03/26/24 22:00 03/26/24 22:00 Temperature Pulse Rate 93 94 94 Respiratory Rate 16 16 Blood Pressure 106/52 L Pulse Oximetry Oxygen Delivery Fraction of Inspired Oxygen 03/26/24 23:00 03/26/24 23:33 03/26/24 23:37 Temperature 37.1 C Pulse Rate 91 91 Respiratory Rate 17 17 Blood Pressure 98/49 L Pulse Oximetry 95 95 Oxygen Delivery Mechanical Ventilation Fraction of Inspired Oxygen 30 30 03/26/24 23:05 03/27/24 00:00 03/27/24 00:00 Temperature 36.8 C Pulse Rate 90 103 H 102 H Respiratory Rate 22 H 22 H Blood Pressure 99/46 L Pulse Oximetry 96 96 Oxygen Delivery Mechanical Ventilation Fraction of Inspired Oxygen 30 03/27/24 00:00 03/27/24 00:00 03/27/24 00:00 Temperature Pulse Rate 104 H 102 H 103 H Respiratory Rate 24 H Blood Pressure 99/46 L Pulse Oximetry Oxygen Delivery Fraction of Inspired Oxygen 03/27/24 01:39 03/27/24 01:00 03/27/24 01:40 Temperature Pulse Rate 101 H 102 H 91 Respiratory Rate 20 24 H Blood Pressure Pulse Oximetry 99 Oxygen Delivery Mechanical Ventilation Fraction of Inspired Oxygen 30 03/27/24 01:40 03/27/24 02:00 03/27/24 02:00 Temperature 37.1 C Pulse Rate 90 87 88 Respiratory Rate 18 16 Blood Pressure 96/49 L Pulse Oximetry 95 Oxygen Delivery Fraction of Inspired Oxygen 03/27/24 03:29 03/27/24 02:00 03/27/24 03:47 Temperature Pulse Rate 100 94 100 Respiratory Rate 19 19 Blood Pressure 97/48 L Pulse Oximetry 95 Oxygen Delivery Mechanical Ventilation Fraction of Inspired Oxygen 30 03/27/24 03:51 03/27/24 02:00 03/27/24 04:00 Temperature Pulse Rate 94 88 Respiratory Rate 16 Blood Pressure Pulse Oximetry Oxygen Delivery Fraction of Inspired Oxygen 30 03/27/24 04:00 03/27/24 05:37 03/27/24 06:00 Temperature 37.1 C Pulse Rate 88 84 81 Respiratory Rate 16 Blood Pressure 105/56 L Pulse Oximetry 94 94 Oxygen Delivery Mechanical Ventilation Fraction of Inspired Oxygen 30 03/27/24 06:00 03/27/24 04:00 03/27/24 06:00 Temperature 37.3 C Pulse Rate 82 81 82 Respiratory Rate 16 16 16 Blood Pressure 112/60 Pulse Oximetry 94 Oxygen Delivery Fraction of Inspired Oxygen 03/27/24 04:00 03/27/24 06:00 03/27/24 04:00 Temperature Pulse Rate 86 86 82 Respiratory Rate 16 Blood Pressure 105/56 L 112/60 Pulse Oximetry Oxygen Delivery Fraction of Inspired Oxygen 03/27/24 06:00 Temperature Pulse Rate 94 Respiratory Rate 16 Blood Pressure Pulse Oximetry Oxygen Delivery Fraction of Inspired Oxygen Intake/Output Intake/Output: Intake & Output 03/24/24 03/25/24 03/26/24 03/27/24 23:59 23:59 23:59 23:59 Intake Total 1446.0 2600.4 2508.2 124.2 Output Total 925 725 650 425 Balance 521.0 1875.4 1858.2 -300.8 Meds/Results Medications: Active Medications Generic Name Dose Route Start Last Admin Trade Name Freq PRN Reason Stop Dose Admin Acetaminophen 650 mg 03/25/24 12:39 03/25/24 17:05 Acetaminophen Elixir 325 Mg/10.15 Ml Udc PO 650 mg Q4H PRN Administration Mild Pain (1-3) or Fever Albuterol/Ipratropium 3 ml 02/29/24 02:00 03/27/24 01:40 Ipratropium 0.5 Mg/Albuterol Sulfate 2.5 Mg Ampul.Neb 3 Ml INHALATION 3 ml Q6HRT JASON Administration Alteplase, Recombinant 2 mg 03/06/24 09:45 03/22/24 16:56 Alteplase 2 Mg Vial (Cathflo) IV PUSH 2 mg ONCE PRN Administration Line Occlusion Aspirin 81 mg 03/09/24 08:00 03/26/24 08:30 Aspirin 81 Mg Chewable Tablet FEED TUBE 81 mg DAILY@0800 JASON Administration Bisacodyl 10 mg 03/24/24 07:31 03/24/24 16:04 Bisacodyl 10 Mg Suppository RECTAL 10 mg QAM PRN Administration Constipation Dextrose 12.5 gm 02/28/24 19:23 Dextrose 50% 25 Gm/50 Ml Syringe IV PUSH PRN PRN Hypoglycemia Protocol Enoxaparin Sodium 90 mg 03/23/24 07:45 03/26/24 21:02 Enoxaparin 100 Mg/Ml Syringe SUB-Q 90 mg Q12HR JASON Administration Glucagon 1 mg 02/28/24 19:23 Glucagon For Inj 1 Mg Vial IM PRN PRN Hypoglycemia Protocol Glucose 15 gm 03/08/24 10:19 Glucose Oral Gel 15 Gm Of Glucse In 37.5 Gm Tube FEED TUBE PRN PRN Hypoglycemia Protocol Dextrose 1,000 mls @ 100 mls/hr 02/28/24 19:23 Dextrose 5% 1,000 Ml IVPB PRN PRN Hypoglycemia Protocol Fentanyl Citrate 2,500 mcg in 250 mls @ 12.5 mls/hr 03/22/24 12:15 03/27/24 06:00 Fentanyl 2,500 Mcg/Ns 250 Ml IV CONT 125 mcg/hr .Q20H JASON 12.5 mls/hr Titration Protocol 125 MCG/HR Midazolam HCl 100 mg in 100 mls @ 3 mls/hr 03/22/24 12:15 03/27/24 06:00 Versed 100 Mg/Ns 100 Ml IV CONT 3 mg/hr .[id number] JASON 3 mls/hr Titration Protocol 3 MG/HR Norepinephrine Bitartrate 8 mg in 250 mls @ 3.75 mls/hr 03/25/24 22:55 03/27/24 06:00 Levophed 8 Mg/D5w 250 Ml IV CONT 2 mcg/min .Q24H JASON 3.75 mls/hr Titration Protocol 2 MCG/MIN Insulin Aspart 3 - 6 units 03/15/24 17:00 03/27/24 00:08 Insulin Aspart (*Bkc) 100 Units/Ml SUB-Q Not Given Q4HR JASON Protocol Insulin Glargine 55 units 03/15/24 09:00 03/16/24 10:44 Insulin Glargine (*Bkc) 100 Units/Ml SUB-Q 55 units DAILY JASON Administration Labetalol HCl 20 mg 03/08/24 10:06 03/08/24 16:48 Labetalol Hcl Inj 100 Mg/20 Ml Vial IV PUSH 20 mg Q4H PRN Administration SBP > 160 and HR> 60 -1st choice Metoclopramide HCl 10 mg 03/27/24 12:00 Metoclopramide Hcl Inj 10 Mg/2 Ml Vial IV PUSH Q6HR JASON Morphine Sulfate 2 mg 03/19/24 19:39 03/21/24 20:36 Morphine Sulfate (*Crx) 2 Mg/Ml Inj IV PUSH 2 mg Q2HR PRN Administration Pain Rated 7-10 Multi-Ingred Cream/Lotion/Oil/Oint 1 applic 03/22/24 21:00 03/26/24 21:04 Mineral Oil/White Petrolatum Ointment EACH EYE 1 applic Q12HR JASON Administration Pantoprazole Sodium 40 mg 03/02/24 09:00 03/26/24 21:03 Pantoprazole Sodium Iv 40 Mg Vial IV PUSH 40 mg Q12HR JASON Administration Polyethylene Glycol 17 gm 03/24/24 09:00 03/26/24 08:31 Polyethylene Glycol 3350 17 Gm Powd.Pack PO 17 gm QAM JASON Administration Sodium Chloride 10 ml 02/29/24 06:00 03/26/24 21:03 Central Line Flush IV PUSH 10 ml Q8HR JASON Administration Sodium Chloride 20 ml 02/28/24 23:37 Central Line Flush IV PUSH PRN PRN after blood draws Sodium Chloride 20 ml 03/21/24 08:57 Central Line Flush IV PUSH PRN PRN after blood draws Sodium Chloride 10 ml 03/21/24 08:57 Central Line Flush IV PUSH PRN PRN with TPN bag changes Sodium Chloride 10 ml 03/21/24 14:00 03/26/24 21:03 Central Line Flush IV PUSH 10 ml Q8HR JASON Administration Radiology Results: ITS Impressions Lower Extremity CTA 02/28/24 14:54 IMPRESSION: 1. 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 2. Moderate stenosis of right popliteal artery. 3. Osteomyelitis involving first proximal and distal phalanges and head of first metatarsal. Head CT 02/29/24 05:55 Impression: No intracranial hemorrhage, mass, or acute infarct. Stable chronic encephalomalacia in the high left parietal lobe. Atrophy and chronic white matter changes, as above. Chest/Abdomen/Pelvis CTA 02/29/24 06:02 Impression: Extensive right upper lobe consolidation and more mild right middle lobe consolidation, consistent with pneumonia. Consider aspiration pneumonia. Moderate to large right pleural effusion with complete atelectasis of the right lower lobe. Moderate left pleural effusion with minimal left basilar atelectasis. Small pericardial effusion. No definite acute abnormality in the abdomen or pelvis. Chronic compression fractures, as above. Renal Ultrasound 03/03/24 15:45 IMPRESSION: 1. Normal kidneys without hydronephrosis. 2. Small amount of ascites in the abdomen and pelvis. Abdomen Ultrasound 03/13/24 16:52 IMPRESSION: 1. No etiology for abnormal liver function tests. 2. Normal hepatic veins and main portal vein. Right and left portal veins and proper hepatic artery not evaluated. 3. Right pleural effusion. Vascular Ultrasound 03/13/24 16:52 IMPRESSION: 1. No etiology for abnormal liver function tests. 2. Normal hepatic veins and main portal vein. Right and left portal veins and proper hepatic artery not evaluated. 3. Right pleural effusion. Chest/Abdomen/Pelvis CT 03/16/24 21:51 IMPRESSION: Anasarca Large pleural effusions with prominent compressive atelectasis of the lower lobes especially, dependent atelectasis of the middle and upper lobes Heart size. Prominent coronary artery atherosclerotic calcifications Minimal pericardial effusion Prominent diffuse thickening of urinary bladder wall suggesting cystitis area Ha catheter in bladder lumen Very prominent amount of fluid and large fluid level within the stomach despite presence of NG tube T11 and L1 moderate anterior wedge compression fractures, likely chronic Thoracentesis Ultrasound 03/18/24 10:27 IMPRESSION: 1. Successful ultrasound-guided thoracentesis yielding 550 mL of doris-colored fluid. Modified Barium Swallow 03/21/24 15:25 IMPRESSION: 1. Aspiration of thin liquids and pudding. 2. Please refer to the speech therapy report for recommendations. Tube Placement 03/22/24 11:33 IMPRESSION: 1. Fluoroscopy guided nasoenteric tube placement with tip in the stomach. Abdomen X-Ray 03/22/24 12:47 IMPRESSION: 1. Nasogastric tube tip in the stomach. 2. Nasoenteric tube tip in the stomach. Venous Doppler Study 03/22/24 16:38 IMPRESSION: Nonocclusive right subclavian vein thrombus. No additional deep venous thrombosis detected in the remaining bilateral upper extremity veins. Chest X-Ray 03/27/24 06:45 Impression: [id number] bilateral pleural effusions with mild to moderate pulmonary edema pattern. Probable element of left lower lobe atelectasis. Support tubes are in place, as above. Labs Labs: Laboratory Results - last 24 hr 03/26/24 03/26/24 03/26/24 11:47 15:50 21:02 WBC RBC Hgb Hct MCV MCH MCHC RDW Plt Count MPV Sodium Potassium Chloride Carbon Dioxide Anion Gap BUN Creatinine Estim Creat Clear Calc Estimated GFR Glucose POC Capillary Glucose 187 H 169 H 196 H Calcium Magnesium Total Bilirubin AST ALT Alkaline Phosphatase Total Protein Albumin 03/27/24 03/27/24 00:07 03:37 WBC 8.0 RBC 2.71 L Hgb 7.7 L Hct 26.0 L MCV 95.9 MCH 28.4 MCHC 29.6 L RDW 18.7 H Plt Count 189 MPV 10.0 Sodium 144 Potassium 4.3 Chloride 109 H Carbon Dioxide 31 H Anion Gap 4 BUN 21 H Creatinine 0.80 Estim Creat Clear Calc 79 Estimated GFR > 60 Glucose 199 H POC Capillary Glucose 196 H Calcium 7.8 L Magnesium 2.1 Total Bilirubin 0.5 AST 24 ALT 19 Alkaline Phosphatase 111 Total Protein 6.0 L Albumin 2.7 L Quality VTE Prophylaxis VTE prophylaxis: pharmacologic ordered
[2024-03-27] MEDS: CENTRAL LINE FLUSH 10 ML IV PUSH ×6 (08:52→22:47)
[2024-03-27] MEDS: PANTOPRAZOLE SODIUM IV 40 MG VIAL IV PUSH ×2 (09:02→20:11)
[2024-03-27] MEDS: ENOXAPARIN 100 MG/ML SYRINGE 90 MG SUB-Q (09:02)
[2024-03-27] MEDS: polyethylene glycoL 3350 17 GM POWD.PACK PO (09:03)
[2024-03-27] MEDS: ASPIRIN 81 MG CHEWABLE TABLET FEED TUBE (09:03)
[2024-03-27] MEDS: MINERAL OIL/WHITE PETROLATUM OINTMENT 1 APPLIC EACH EYE ×2 (09:04→20:11)
[2024-03-27 09:10] LABS: Glucose Point of Care 147 mg/dl (65-105)
[2024-03-27 10:56] LABS: Base Excess ABG 4.8 mEq/l (+/-2.0); Oxygen Saturation ABG 94.4 % (95.0-100.0)
[2024-03-27 10:57] LABS: Carboxyhemoglobin 1.5 % THb (0-2.0); Methemoglobin ABG 0.1 %THb (0-1.5); Oxygen Content ABG 11.3 %vol (16.0-22.0); Oxyhemoglobin 92.5 % THb (90.0-100.0); Reduced Hemoglobin 5.9 %THb (0-5.0)
[2024-03-27 10:58] LABS: Device VENTILATOR
[2024-03-27 11:02] LABS: Alveolar/Arterial O2 Gradient 94.7 mmHg; HCO3 ABG 29.2 mEq/l (22.0-26.0); PO2 ABG 68.7 mmHg (80.0-100.0); Total Hemoglobin 8.6 g/dL (12.0-18.0)
[2024-03-27 11:03] LABS: Arterial Blood Gas PEEP 8 cmH2O; Arterial Blood Gas Vent Mode CMV; Arterial Blood Gas Ventilator rate 16 /MIN; PO2 FiO2 Ratio Arterial Blood 2.29 %
[2024-03-27 11:04] LABS: Arterial Blood Gas Tidal Volume 380 ml
--- NOTE | 2024-03-27 11:14 | PCFNICU ---
ICU Rounding Note: Pt current nutrition is Vital AF 1.2 at 60 ml/hr. Last recorded weight is 93.7 kg, down from 98 kg on admit. Bowel Motility: +BM reported 03/25 Labs Reviewed: Glu 199, BUN 21, Alb 2.7 Meds Noted: Miralax, Reglan, Lantus, NovoLog, Versed, Levophed, Protonix. Skin: Stage II-sacrum, right BKA Additional Notes: Patient remains on a mechanical vent. Tube feedings paused at this time due to elevated residual and emesis. Reglan started and tube feedings to restart at noon of Vital AF 1.2. Protein modular of Minh BID and Prosource BID given for additional protein needs due to wounds. Plans for Trach 03/31. Following daily in ICU rounds. Will monitor weight, labs, skin, tube feedings, meds, every Sunday and Sunday.
[2024-03-27 12:12] LABS: Glucose Point of Care 150 mg/dl (65-105)
[2024-03-27] MEDS: METOCLOPRAMIDE HCL INJ 10 MG/2 ML VIAL IV PUSH ×2 (12:12→17:26)
--- NOTE | 2024-03-27 15:32 | PM.PNGS ---
Progress Note: A&P Assessment and Plan (1) Gangrene of right foot: Code(s): I96 - Gangrene, not elsewhere classified Status: Acute (2) Amputation of right lower extremity below knee: Qualifiers: Encounter type: subsequent encounter Qualified Code(s): S88.111D - Complete traumatic amputation at level between knee and ankle, right lower leg, subsequent encounter Code(s): S88.111A - Complete traumatic amputation at level between knee and ankle, right lower leg, initial encounter Status: Acute Assessment and Plan: Postop day 22 following right BKA. Incision and flap are healing well with some epithelial sloughing, but no signs of infection or flap ischemia. No longer using the knee immobilizer due to the sloughing. Sutures were all removed today and we applied a xeroform dressing. Will ask wound care nurses to evaluate the right BKA tomorrow for recommendations on wound care. Plan I have discussed the patient's case and plan of care with Dr. Johns. Subjective Subjective Date/Time Seen: 03/27/24 15:32 Post Op day: 22 Interval history: Patient intubated in the ICU. Plans to have a tracheostomy next Sunday. He is seen today with Dr. Johns at the bedside for wound check and suture removal. Review of Systems Review of Systems: ROS unobtainable: Yes unobtainable due to endotracheal tube Exam Narrative: Right BKA dressing removed. Incision is dry and sutures intact. Amputation is healing well with no further swelling. Flap appears healthy. There is some areas of dark purple skin on the right lateral aspect of the incision that appears to be superficial epithelial sloughing. We removed all sutures at the bedside today and applied a xeroform dressing covered with 4x4 gauze and marianne wrap. Unable to fully extend right knee with mild flexion contracture. Const: General: ill appearing Orientation/consciousness: patient obtunded (intubated in the ICU) Objective Data Vital Signs Vital Signs: Vital Signs - 24 hr 03/26/24 16:30 03/26/24 16:00 03/26/24 17:31 Temperature 98.4 F Pulse Rate 90 91 91 Respiratory Rate 16 17 Blood Pressure 112/57 L Pulse Oximetry 97 97 Oxygen Delivery Mechanical Ventilation Fraction of Inspired Oxygen 30 03/26/24 17:31 03/26/24 16:00 03/26/24 18:00 Temperature 98.5 F Pulse Rate 91 91 86 Respiratory Rate 17 16 18 Blood Pressure 96/48 L Pulse Oximetry 96 Oxygen Delivery Fraction of Inspired Oxygen 03/26/24 16:00 03/26/24 16:00 03/26/24 16:00 Temperature Pulse Rate 88 Respiratory Rate Blood Pressure Pulse Oximetry Oxygen Delivery Mechanical Ventilation Fraction of Inspired Oxygen 30 30 03/26/24 18:00 03/26/24 18:50 03/26/24 16:00 Temperature Pulse Rate 86 85 91 Respiratory Rate 17 17 Blood Pressure Pulse Oximetry Oxygen Delivery Fraction of Inspired Oxygen 03/26/24 18:00 03/26/24 18:00 03/26/24 16:00 Temperature Pulse Rate 86 86 91 Respiratory Rate 17 Blood Pressure 96/48 L 112/57 L Pulse Oximetry Oxygen Delivery Fraction of Inspired Oxygen 03/26/24 18:00 03/26/24 20:05 03/26/24 20:05 Temperature Pulse Rate 86 85 85 Respiratory Rate 16 16 Blood Pressure Pulse Oximetry 99 Oxygen Delivery Mechanical Ventilation Fraction of Inspired Oxygen 30 03/26/24 20:00 03/26/24 20:00 03/26/24 20:00 Temperature 98.6 F Pulse Rate 85 85 Respiratory Rate 17 Blood Pressure 98/47 L Pulse Oximetry 97 Oxygen Delivery Fraction of Inspired Oxygen 30 03/26/24 20:00 03/26/24 20:00 03/26/24 20:00 Temperature Pulse Rate 85 85 85 Respiratory Rate 17 16 Blood Pressure 98/47 L Pulse Oximetry Oxygen Delivery Fraction of Inspired Oxygen 03/26/24 20:45 03/26/24 22:00 03/26/24 22:00 Temperature 98.7 F Pulse Rate 85 94 95 Respiratory Rate 16 16 Blood Pressure 106/52 L Pulse Oximetry 99 94 Oxygen Delivery Mechanical Ventilation Fraction of Inspired Oxygen 30 03/26/24 22:00 03/26/24 22:00 03/26/24 22:00 Temperature Pulse Rate 93 94 94 Respiratory Rate 16 16 Blood Pressure 106/52 L Pulse Oximetry Oxygen Delivery Fraction of Inspired Oxygen 03/26/24 23:00 03/26/24 23:33 03/26/24 23:37 Temperature 98.7 F Pulse Rate 91 91 Respiratory Rate 17 17 Blood Pressure 98/49 L Pulse Oximetry 95 95 Oxygen Delivery Mechanical Ventilation Fraction of Inspired Oxygen 30 30 03/26/24 23:05 03/27/24 00:00 03/27/24 00:00 Temperature 98.2 F Pulse Rate 90 103 H 102 H Respiratory Rate 22 H 22 H Blood Pressure 99/46 L Pulse Oximetry 96 96 Oxygen Delivery Mechanical Ventilation Fraction of Inspired Oxygen 30 03/27/24 00:00 03/27/24 00:00 03/27/24 00:00 Temperature Pulse Rate 104 H 102 H 103 H Respiratory Rate 24 H Blood Pressure 99/46 L Pulse Oximetry Oxygen Delivery Fraction of Inspired Oxygen 03/27/24 01:39 03/27/24 01:00 03/27/24 01:40 Temperature Pulse Rate 101 H 102 H 91 Respiratory Rate 20 24 H Blood Pressure Pulse Oximetry 99 Oxygen Delivery Mechanical Ventilation Fraction of Inspired Oxygen 30 03/27/24 01:40 03/27/24 02:00 03/27/24 02:00 Temperature 98.8 F Pulse Rate 90 87 88 Respiratory Rate 18 16 Blood Pressure 96/49 L Pulse Oximetry 95 Oxygen Delivery Fraction of Inspired Oxygen 03/27/24 03:29 03/27/24 02:00 03/27/24 03:47 Temperature Pulse Rate 100 94 100 Respiratory Rate 19 19 Blood Pressure 97/48 L Pulse Oximetry 95 Oxygen Delivery Mechanical Ventilation Fraction of Inspired Oxygen 30 03/27/24 03:51 03/27/24 02:00 03/27/24 04:00 Temperature Pulse Rate 94 88 Respiratory Rate 16 Blood Pressure Pulse Oximetry Oxygen Delivery Fraction of Inspired Oxygen 30 03/27/24 04:00 03/27/24 05:37 03/27/24 06:00 Temperature 98.8 F Pulse Rate 88 84 81 Respiratory Rate 16 Blood Pressure 105/56 L Pulse Oximetry 94 94 Oxygen Delivery Mechanical Ventilation Fraction of Inspired Oxygen 30 03/27/24 06:00 03/27/24 04:00 03/27/24 06:00 Temperature 99.1 F Pulse Rate 82 81 82 Respiratory Rate 16 16 16 Blood Pressure 112/60 Pulse Oximetry 94 Oxygen Delivery Fraction of Inspired Oxygen 03/27/24 04:00 03/27/24 06:00 03/27/24 04:00 Temperature Pulse Rate 86 86 82 Respiratory Rate 16 Blood Pressure 105/56 L 112/60 Pulse Oximetry Oxygen Delivery Fraction of Inspired Oxygen 03/27/24 06:00 03/27/24 08:40 03/27/24 08:43 Temperature Pulse Rate 94 93 103 H Respiratory Rate 16 16 Blood Pressure Pulse Oximetry 93 Oxygen Delivery Mechanical Ventilation Fraction of Inspired Oxygen 30 03/27/24 08:53 03/27/24 08:00 03/27/24 08:00 Temperature Pulse Rate 101 H 98 98 Respiratory Rate 16 16 Blood Pressure 104/66 Pulse Oximetry Oxygen Delivery Fraction of Inspired Oxygen 03/27/24 08:00 03/27/24 09:13 03/27/24 10:00 Temperature Pulse Rate 98 100 94 Respiratory Rate 16 16 Blood Pressure 115/57 L Pulse Oximetry Oxygen Delivery Fraction of Inspired Oxygen 03/27/24 10:00 03/27/24 11:23 03/27/24 08:00 Temperature Pulse Rate 92 92 Respiratory Rate 16 Blood Pressure 91/44 L Pulse Oximetry Oxygen Delivery Mechanical Ventilation Fraction of Inspired Oxygen 30 03/27/24 11:25 03/27/24 08:00 03/27/24 10:00 Temperature Pulse Rate 94 80 94 Respiratory Rate Blood Pressure Pulse Oximetry 92 Oxygen Delivery Mechanical Ventilation Fraction of Inspired Oxygen 30 03/27/24 08:00 03/27/24 08:00 03/27/24 10:00 Temperature 99.3 F 99.3 F Pulse Rate 81 94 Respiratory Rate 16 16 Blood Pressure 104/66 92/45 L Pulse Oximetry 93 92 Oxygen Delivery Fraction of Inspired Oxygen 30 03/27/24 12:00 03/27/24 12:00 03/27/24 12:00 Temperature Pulse Rate 104 H 102 H 102 H Respiratory Rate 16 16 Blood Pressure 101/51 L Pulse Oximetry Oxygen Delivery Fraction of Inspired Oxygen 03/27/24 12:00 03/27/24 12:00 03/27/24 12:00 Temperature Pulse Rate 94 Respiratory Rate Blood Pressure Pulse Oximetry Oxygen Delivery Mechanical Ventilation Fraction of Inspired Oxygen 30 30 03/27/24 12:00 03/27/24 13:49 03/27/24 13:51 Temperature 99.3 F Pulse Rate 94 100 Respiratory Rate 16 Blood Pressure 101/51 L 110/56 L Pulse Oximetry 92 89 L Oxygen Delivery Mechanical Ventilation Fraction of Inspired Oxygen 35 03/27/24 14:02 03/27/24 14:06 03/27/24 14:13 Temperature Pulse Rate 100 98 98 Respiratory Rate 18 18 Blood Pressure Pulse Oximetry 91 Oxygen Delivery Mechanical Ventilation Fraction of Inspired Oxygen 40 03/27/24 14:00 03/27/24 14:00 03/27/24 14:00 Temperature 99.7 F H Pulse Rate 102 H 102 H 102 H Respiratory Rate 16 16 Blood Pressure 104/57 L Pulse Oximetry 91 Oxygen Delivery Fraction of Inspired Oxygen 03/27/24 14:00 Temperature Pulse Rate 102 H Respiratory Rate 16 Blood Pressure Pulse Oximetry Oxygen Delivery Fraction of Inspired Oxygen Intake/Output Intake/Output: Intake & Output 03/24/24 03/25/24 03/26/24 03/27/24 23:59 23:59 23:59 23:59 Intake Total 1446.0 2600.4 2508.2 269.0 Output Total 925 725 650 425 Balance 521.0 1875.4 1858.2 -156.0 Meds/Results Medications: Active Medications Generic Name Dose Route Start Last Admin Trade Name Freq PRN Reason Stop Dose Admin Acetaminophen 650 mg 03/25/24 12:39 03/25/24 17:05 Acetaminophen Elixir 325 Mg/10.15 Ml Udc PO 650 mg Q4H PRN Administration Mild Pain (1-3) or Fever Albuterol/Ipratropium 3 ml 02/29/24 02:00 03/27/24 14:02 Ipratropium 0.5 Mg/Albuterol Sulfate 2.5 Mg Ampul.Neb 3 Ml INHALATION 3 ml Q6HRT [facility] Administration Alteplase, Recombinant 2 mg 03/06/24 09:45 03/22/24 16:56 Alteplase 2 Mg Vial (Cathflo) IV PUSH 2 mg ONCE PRN Administration Line Occlusion Aspirin 81 mg 03/09/24 08:00 03/27/24 09:03 Aspirin 81 Mg Chewable Tablet FEED TUBE 81 mg DAILY@0800 [facility] Administration Bisacodyl 10 mg 03/24/24 07:31 03/24/24 16:04 Bisacodyl 10 Mg Suppository RECTAL 10 mg QAM PRN Administration Constipation Dextrose 12.5 gm 02/28/24 19:23 Dextrose 50% 25 Gm/50 Ml Syringe IV PUSH PRN PRN Hypoglycemia Protocol Enoxaparin Sodium 90 mg 03/23/24 07:45 03/27/24 09:02 Enoxaparin 100 Mg/Ml Syringe SUB-Q 90 mg Q12HR JASON Administration Glucagon 1 mg 02/28/24 19:23 Glucagon For Inj 1 Mg Vial IM PRN PRN Hypoglycemia Protocol Glucose 15 gm 03/08/24 10:19 Glucose Oral Gel 15 Gm Of Glucse In 37.5 Gm Tube FEED TUBE PRN PRN Hypoglycemia Protocol Dextrose 1,000 mls @ 100 mls/hr 02/28/24 19:23 Dextrose 5% 1,000 Ml IVPB PRN PRN Hypoglycemia Protocol Fentanyl Citrate 2,500 mcg in 250 mls @ 12.5 mls/hr 03/22/24 12:15 03/27/24 14:00 Fentanyl 2,500 Mcg/Ns 250 Ml IV CONT 125 mcg/hr .Q20H JASON 12.5 mls/hr Titration Protocol 125 MCG/HR Midazolam HCl 100 mg in 100 mls @ 3 mls/hr 03/22/24 12:15 03/27/24 14:00 Versed 100 Mg/Ns 100 Ml IV CONT 3 mg/hr .[id number] JASON 3 mls/hr Titration Protocol 3 MG/HR Norepinephrine Bitartrate 8 mg in 250 mls @ 0 mls/hr 03/25/24 22:55 03/27/24 14:38 Levophed 8 Mg/D5w 250 Ml IV CONT Not Given .Q0M JASON Protocol 0 MCG/MIN Insulin Aspart 3 - 6 units 03/15/24 17:00 03/27/24 12:09 Insulin Aspart (*Bkc) 100 Units/Ml SUB-Q Not Given Q4HR [facility] Protocol Insulin Glargine 55 units 03/15/24 09:00 03/16/24 10:44 Insulin Glargine (*Bkc) 100 Units/Ml SUB-Q 55 units DAILY JASON Administration Labetalol HCl 20 mg 03/08/24 10:06 03/08/24 16:48 Labetalol Hcl Inj 100 Mg/20 Ml Vial IV PUSH 20 mg Q4H PRN Administration SBP > 160 and HR> 60 -1st choice Metoclopramide HCl 10 mg 03/27/24 12:00 03/27/24 12:12 Metoclopramide Hcl Inj 10 Mg/2 Ml Vial IV PUSH 10 mg Q6HR JASON Administration Morphine Sulfate 2 mg 03/19/24 19:39 03/21/24 20:36 Morphine Sulfate (*Crx) 2 Mg/Ml Inj IV PUSH 2 mg Q2HR PRN Administration Pain Rated 7-10 Multi-Ingred Cream/Lotion/Oil/Oint 1 applic 03/22/24 21:00 03/27/24 09:04 Mineral Oil/White Petrolatum Ointment EACH EYE 1 applic Q12HR JASON Administration Pantoprazole Sodium 40 mg 03/02/24 09:00 03/27/24 09:02 Pantoprazole Sodium Iv 40 Mg Vial IV PUSH 40 mg Q12HR JASON Administration Polyethylene Glycol 17 gm 03/24/24 09:00 03/27/24 09:03 Polyethylene Glycol 3350 17 Gm Powd.Pack PO 17 gm QAM JASON Administration Sodium Chloride 10 ml 02/29/24 06:00 03/27/24 13:49 Central Line Flush IV PUSH 10 ml Q8HR JASON Administration Sodium Chloride 20 ml 02/28/24 23:37 Central Line Flush IV PUSH PRN PRN after blood draws Sodium Chloride 20 ml 03/21/24 08:57 Central Line Flush IV PUSH PRN PRN after blood draws Sodium Chloride 10 ml 03/21/24 08:57 Central Line Flush IV PUSH PRN PRN with TPN bag changes Sodium Chloride 10 ml 03/21/24 14:00 03/27/24 13:49 Central Line Flush IV PUSH 10 ml Q8HR JASON Administration Radiology Results: ITS Impressions Lower Extremity CTA 02/28/24 14:54 IMPRESSION: 1. 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 2. Moderate stenosis of right popliteal artery. 3. Osteomyelitis involving first proximal and distal phalanges and head of first metatarsal. Head CT 02/29/24 05:55 Impression: No intracranial hemorrhage, mass, or acute infarct. Stable chronic encephalomalacia in the high left parietal lobe. Atrophy and chronic white matter changes, as above. Chest/Abdomen/Pelvis CTA 02/29/24 06:02 Impression: Extensive right upper lobe consolidation and more mild right middle lobe consolidation, consistent with pneumonia. Consider aspiration pneumonia. Moderate to large right pleural effusion with complete atelectasis of the right lower lobe. Moderate left pleural effusion with minimal left basilar atelectasis. Small pericardial effusion. No definite acute abnormality in the abdomen or pelvis. Chronic compression fractures, as above. Renal Ultrasound 03/03/24 15:45 IMPRESSION: 1. Normal kidneys without hydronephrosis. 2. Small amount of ascites in the abdomen and pelvis. Abdomen Ultrasound 03/13/24 16:52 IMPRESSION: 1. No etiology for abnormal liver function tests. 2. Normal hepatic veins and main portal vein. Right and left portal veins and proper hepatic artery not evaluated. 3. Right pleural effusion. Vascular Ultrasound 03/13/24 16:52 IMPRESSION: 1. No etiology for abnormal liver function tests. 2. Normal hepatic veins and main portal vein. Right and left portal veins and proper hepatic artery not evaluated. 3. Right pleural effusion. Chest/Abdomen/Pelvis CT 03/16/24 21:51 IMPRESSION: Anasarca Large pleural effusions with prominent compressive atelectasis of the lower lobes especially, dependent atelectasis of the middle and upper lobes Heart size. Prominent coronary artery atherosclerotic calcifications Minimal pericardial effusion Prominent diffuse thickening of urinary bladder wall suggesting cystitis area Ha catheter in bladder lumen Very prominent amount of fluid and large fluid level within the stomach despite presence of NG tube T11 and L1 moderate anterior wedge compression fractures, likely chronic Thoracentesis Ultrasound 03/18/24 10:27 IMPRESSION: 1. Successful ultrasound-guided thoracentesis yielding 550 mL of doris-colored fluid. Modified Barium Swallow 03/21/24 15:25 IMPRESSION: 1. Aspiration of thin liquids and pudding. 2. Please refer to the speech therapy report for recommendations. Tube Placement 03/22/24 11:33 IMPRESSION: 1. Fluoroscopy guided nasoenteric tube placement with tip in the stomach. Abdomen X-Ray 03/22/24 12:47 IMPRESSION: 1. Nasogastric tube tip in the stomach. 2. Nasoenteric tube tip in the stomach. Venous Doppler Study 03/22/24 16:38 IMPRESSION: Nonocclusive right subclavian vein thrombus. No additional deep venous thrombosis detected in the remaining bilateral upper extremity veins. Chest X-Ray 03/27/24 06:45 Impression: [id number] bilateral pleural effusions with mild to moderate pulmonary edema pattern. Probable element of left lower lobe atelectasis. Support tubes are in place, as above. Labs Labs: Laboratory Results - last 24 hr 03/26/24 03/26/24 03/27/24 15:50 21:02 00:07 WBC RBC Hgb Hct MCV MCH MCHC RDW Plt Count MPV Puncture Site ABG pH ABG pCO2 ABG pO2 ABG PO2/FiO2 Ratio ABG HCO3 ABG O2 Saturation ABG O2 Content ABG Base Excess A-a Gradient Oxyhemoglobin Carboxyhemoglobin Methemoglobin Reduced Hemoglobin Total Hemoglobin O2 Delivery Device O2 Liters/Min Minute Volume Vent Rate Vent Mode FiO2 Tidal Volume PEEP Peak Inspir Pressure Pressure Support Sodium Potassium Chloride Carbon Dioxide Anion Gap BUN Creatinine Estim Creat Clear Calc Estimated GFR Glucose POC Capillary Glucose 169 H 196 H 196 H Calcium Magnesium Total Bilirubin AST ALT Alkaline Phosphatase Total Protein Albumin 03/27/24 03/27/24 03/27/24 03:37 04:27 09:01 WBC 8.0 RBC 2.71 L Hgb 7.7 L Hct 26.0 L MCV 95.9 MCH 28.4 MCHC 29.6 L RDW 18.7 H Plt Count 189 MPV 10.0 Puncture Site Not Reportable ABG pH 7.450 ABG pCO2 43.0 ABG pO2 68.7 L ABG PO2/FiO2 Ratio 2.29 ABG HCO3 29.2 H ABG O2 Saturation 94.4 L ABG O2 Content 11.3 L ABG Base Excess 4.8 A-a Gradient 94.7 Oxyhemoglobin 92.5 Carboxyhemoglobin 1.5 Methemoglobin 0.1 Reduced Hemoglobin 5.9 H Total Hemoglobin 8.6 L O2 Delivery Device Ventilator O2 Liters/Min Not Reportable Minute Volume Not Reportable Vent Rate 16 Vent Mode Cmv FiO2 30 Tidal Volume 380 PEEP 8 Peak Inspir Pressure Not Reportable Pressure Support Not Reportable Sodium 144 Potassium 4.3 Chloride 109 H Carbon Dioxide 31 H Anion Gap 4 BUN 21 H Creatinine 0.80 Estim Creat Clear Calc 79 Estimated GFR > 60 Glucose 199 H POC Capillary Glucose 147 H Calcium 7.8 L Magnesium 2.1 Total Bilirubin 0.5 AST 24 ALT 19 Alkaline Phosphatase 111 Total Protein 6.0 L Albumin 2.7 L 03/27/24 12:00 WBC RBC Hgb Hct MCV MCH MCHC RDW Plt Count MPV Puncture Site ABG pH ABG pCO2 ABG pO2 ABG PO2/FiO2 Ratio ABG HCO3 ABG O2 Saturation ABG O2 Content ABG Base Excess A-a Gradient Oxyhemoglobin Carboxyhemoglobin Methemoglobin Reduced Hemoglobin Total Hemoglobin O2 Delivery Device O2 Liters/Min Minute Volume Vent Rate Vent Mode FiO2 Tidal Volume PEEP Peak Inspir Pressure Pressure Support Sodium Potassium Chloride Carbon Dioxide Anion Gap BUN Creatinine Estim Creat Clear Calc Estimated GFR Glucose POC Capillary Glucose 150 H Calcium Magnesium Total Bilirubin AST ALT Alkaline Phosphatase Total Protein Albumin
[2024-03-27] MEDS: FENTANYL 2,500MCG/NS250ML(*CRX 2,500 MCG/250 ML BAG 12.5 MCG IV CONT (15:47)
[2024-03-27] MEDS: ACETAMINOPHEN ELIXIR 325 MG/10.15 ML UDC 650 MG PO (15:48)
[2024-03-27] MEDS: MIDAZOLAM 100MG/NS 100ML(*CRX) 100 MG/100 ML BAG IV CONT (16:43)
[2024-03-27 17:27] LABS: Glucose Point of Care 169 mg/dl (65-105)
[2024-03-27 20:18] LABS: Glucose Point of Care 167 mg/dl (65-105)
[2024-03-27 20:32] LABS: Hematocrit 24.6 % (42.0-52.0); Hemoglobin 7.1 g/dL (14.0-18.0); Mean Corpuscular HGB Conc 28.9 g/dl (32-36); Mean Corpuscular Hemoglobin 27.7 pg (26-34); Mean Corpuscular Volume 96.1 fl (80-100); Mean Platelet Volume 10.6 fl (7.4-10.4); Platelet Count Result 199 k/mm3 (150-375); Red Blood Count 2.56 M/mm3 (4.6-6.20); Red Cell Distribution Width 18.5 % (11.5-14.5); White Blood Count 9.3 K/mm3 (4.5-10.0)
[2024-03-27 23:59] LABS: Glucose Point of Care 189 mg/dl (65-105)
[2024-03-28] VITALS (35 sets, daily range): BP systolic 86–127; BP diastolic 39–65; PULSE 74–100; RESP 10–18; TEMP 36.9–37.6; O2SAT 95–99
[2024-03-28] MEDS: METOCLOPRAMIDE HCL INJ 10 MG/2 ML VIAL IV PUSH ×4 (01:12→17:21)
[2024-03-28] MEDS: IPRATROPIUM 0.5 MG/ALBUTEROL SULFATE 2.5 MG AMPUL.NEB 3 ML INHALATION ×4 (02:35→20:18)
[2024-03-28] MEDS: NOREPINEPHRINE 8 MG/D5W 250 ML 8 MG/250 ML BAG 9.38 MG IV CONT (03:00)
[2024-03-28 04:29] LABS: Glucose Point of Care 172 mg/dl (65-105)
[2024-03-28 05:17] LABS: Basophils Percent Auto 0.4 % (0.2-1.2); Eosinophils Absolute Auto 0.3 K/mm3 (0-0.3); Eosinophils Percent Auto 4.2 % (0-4.4); Hematocrit 24.9 % (42.0-52.0); Hemoglobin 7.2 g/dL (14.0-18.0); Immature Granulocyte Absolute 0.07 K/mm3 (0.00-0.031); Immature Granulocyte Percent A 0.9 % (0-0.5); Lymphocytes Absolute Auto 1.92 K/mm3 (0.9-3.2); Lymphocytes Percent Auto 25.5 % (18.3-44.2); Mean Corpuscular HGB Conc 28.9 g/dl (32-36); Mean Corpuscular Hemoglobin 27.6 pg (26-34); Mean Corpuscular Volume 95.4 fl (80-100); Mean Platelet Volume 10.4 fl (7.4-10.4); Monocytes Absolute Auto 0.7 K/mm3 (0.1-0.6); Monocytes Percent Auto 8.8 % (2.6-8.5); Neutrophils Absolute Auto 4.5 K/mm3 (1.3-6.7); Neutrophils Percent Auto 60.2 % (45.5-73.1); Platelet Count Result 192 k/mm3 (150-375); Red Blood Count 2.61 M/mm3 (4.6-6.20); Red Cell Distribution Width 18.3 % (11.5-14.5); White Blood Count 7.5 K/mm3 (4.5-10.0)
[2024-03-28 05:27] LABS: Anion Gap 4 mmol/L (4-12); Blood Urea Nitrogen 25 mg/dL (9-20); Carbon Dioxide 31 mmol/L (22-30); Chloride 109 mmol/L (98-107); Estimated CRCL calculation 79 ml/min; Estimated Glomerular Filt Rate > 60; Glucose 177 mg/dL (65-110); Potassium 3.9 mmol/L (3.4-5.0); Sodium 144 mmol/L (137-145)
[2024-03-28 05:55] LABS: Anisocytosis 1+; Hypochromasia 1+; Platelet Estimate Adequate (Adequate); Schistocytes None Seen
[2024-03-28] MEDS: CENTRAL LINE FLUSH 10 ML IV PUSH ×3 (06:53→22:30)
[2024-03-28 07:39] LABS: Glucose Point of Care 198 mg/dl (65-105)
[2024-03-28] MEDS: ASPIRIN 81 MG CHEWABLE TABLET FEED TUBE (08:47)
[2024-03-28] MEDS: PANTOPRAZOLE SODIUM IV 40 MG VIAL IV PUSH ×2 (08:47→20:06)
[2024-03-28] MEDS: polyethylene glycoL 3350 17 GM POWD.PACK PO (08:49)
[2024-03-28] MEDS: MINERAL OIL/WHITE PETROLATUM OINTMENT 1 APPLIC EACH EYE ×2 (08:50→20:07)
[2024-03-28] MEDS: FUROSEMIDE INJ 40 MG/4 ML VIAL IV PUSH (08:50)
--- NOTE | 2024-03-28 10:50 | WPDINTPN ---
Progress Note: A&P Assessment and Plan (1) Acute respiratory failure with hypoxia: Code(s): J96.01 - Acute respiratory failure with hypoxia Status: Acute Assessment and Plan: Acute respiratory failure likely related to cardiac arrest, aspiration pneumonia, NSTEMI, hypoxia, septic shock Worsening likely secondary to ARDS versus pulmonary edema Intubated 02/27 02/28 Chest CTA: Extensive right upper lobe consolidation and more mild right middle lobe consolidation, consistent with pneumonia. Consider aspiration pneumonia.Moderate to large right pleural effusion with complete atelectasis of the right lower lobe. Moderate left pleural effusion with minimal left basilar atelectasis. Small pericardial effusion. No definite acute abnormality in the abdomen or pelvis. Chronic compression fractures, as above . -03/07 right thoracentesis with 1 L fluid removed -03/08 left-sided thoracentesis 550 mL -03/11: patient was in pressure support ventilation 02/18, with decrease tidal volumes in the upper 200s. place patient back on CMV, I have asked the bedside RN to decrease the Precedex infusion once patient is more awake will place back on spontaneous breathing trials 03/12: Place patient on SBT 04/17, low tidal volumes, low respiratory rate. Patient had replaced back on CMV mode of ventilation. -even on ASV patient is breathing only 7-8 times a minute 03/13: Off Precedex infusion overnight, placed patient on pressure support ventilation 04/17, initially did well but not significantly tachycardic and tachypneic and in respiratory distress, patient was placed back on CMV mode of ventilation and low-dose was 03/14 8/5 PSV SBT done for more than 1 hour. RSBI, ABG and Vitals acceptable. Pt awake and following commands. Patient was extubated. Initially patient did well and was on nasal cannula and was able to communicate. Over 12 hours patient became more hypoxic with increased respiratory distress and tachypnea. I spoke to patient post extubation and was agreeable to re-intubation if needed and stated that 'he is not ready to ' and 'do what ever it takes'. He was re intubated at night. I also mentioned to him that he may need tracheostomy and PEG tube placement if he gets we intubated and is not weanable. He told me 'to proceed with it if needed'. Solu-Medrol IV given for airway edema and will be continued for 24 hours -completed course of Solu-Medrol -continue bronchodilators -CT scan shows large pleural effusions bilaterally. I will request IR for thoracentesis.. Patient is on minimal ventilator setting but has failed trials initially multiple times and then once extubated he was reintubated within 12 hours. I will treat try again after thoracentesis to see patient is weanable from the vent otherwise will proceed with trach and PEG as patient has been on ventilator for more than 2 weeks. 03/17 right thoracentesis 1 L fluid was removed 03/18 left thoracentesis 550 mL fluid was removed Will also continue diuretics. 03/19 patient was extubated after weaning trial 03/20 continue nasal cannula, BiPAP p.r.n., hold diuretics, incentive spirometry, spoke to patient after extubation yesterday he is willing to be intubated if needed and proceed with trach and PEG if needed hopefully we can avoid that situation 03/21 patient continues to require BiPAP intermittently and tolerates nasal cannula. He appears quite weak although he does have borderline cough. Continue incentive spirometry. P.r.n. BiPAP. BiPAP at night. Nasal cannula as tolerated. Patient remains at risk of requiring intubation. I spoke to patient again and mention that to him and he verbalized understanding by noting his head. I will check chest x-ray. Continue ICU monitoring 03/22 discussed with the patient emphasized importance of using BiPAP for increased work of breathing and at night due to his deconditioning and weakness. He is currently saturating on nasal cannula and appears not in any respiratory distress. later patient deteriorated and required re-intubation 03/23 ABG and chest x-ray. patient has failed extubation twice and has been on ventilator for close to 20 days. Patient is awaiting trach now . ENT consulted ABG and chest x-ray reviewed. Continue mechanical ventilation. Tracheostomy scheduled for 03/31. no ENT coverage until then (2) Elevated LFTs: Code(s): R79.89 - Other specified abnormal findings of blood chemistry Status: Acute Assessment and Plan: 03/13: Significant elevation in LFTs, AST 2280, ALT 988, alk-phos 722 -patient has been hemodynamically stable, no hypotension noted in the last 24-48 hours -statin discontinued. Hold Tylenol -no tenderness in the right upper, lower quadrant or epigastric region on exam -negative vital hepatitis panel, right upper quadrant ultrasound with Doppler negative for hepatic or portal vein thrombosis -patient evaluated by GI -levels now improved. Monitor (3) Cardiac arrest with pulseless electrical activity: Code(s): I46.9 - Cardiac arrest, cause unspecified Status: Acute Assessment and Plan: Cardiac arrest, secondary to unknown etiology. Possible aspiration pneumonia, NSTEMI, hypoxia, septic shock, infection -see code blue sheet for the details -patient currently intubated, -appreciate cardiology following the patient 02/29/2024 echocardiogram Summary 1. Technically difficult study with limited views. 2. Left ventricular chamber dimension is normal. 3. Left ventricular systolic function is mildly reduced, estimated at 45-50%. The apex appears to be hypokinetic. 4. There is mildly increased left ventricular wall thickness. 5. The left ventricular diastolic function is grade I diastolic dysfunction. 6. Right ventricular systolic function is normal. 7. Left atrial chamber dimension is moderately enlarged. 8. There is mild to moderate tricuspid valve regurgitation. 9. There is small anterior pericardial effusion. (4) Septic shock: Code(s): A41.9 - Sepsis, unspecified organism; R65.21 - Severe sepsis with septic shock Status: Acute Assessment and Plan: Resolved Patient in shock, likely related to the gangrene, aspiration pneumonia, status post cardiac arrest 02/28/2024: Blood cultures have been obtained and negative Status post 10 days of antibiotics 03/16 low-grade fever increase in WBC CT scan as above, repeat blood cultures and sputum pending UA suggestive of UTI. Urine cultures pending. Ha has been changed. Completed course of cefepime currently on low-dose Levophed which is likely secondary to sedation. Have asked the bedside RN to decrease sedation (5) NSTEMI (non-ST elevated myocardial infarction): Code(s): I21.4 - Non-ST elevation (NSTEMI) myocardial infarction Status: Acute Assessment and Plan: -appreciate cardiology evaluation and recommendation -Continue aspirin, Lovenox and high-dose a statin - beta-brayden, losartan are on hold due to soft blood pressure. Will resume beta-brayden -03/02 heparin infusion was discontinued after 48 hours for NSTEMI by cardiology (6) Gangrene of right foot: Code(s): I96 - Gangrene, not elsewhere classified Status: Acute Assessment and Plan: CTA showed peripheral arterial disease with total occlusion of the right anterior and posterior tibial arteries and right peroneal artery with distal reconstitution of peroneal artery. This extensive gangrene of the right foot with gas seen on CT of the foot. General surgery spoke to the patient in the ER on the day of admission on 02/27 patient at that time agreed for below-knee amputation. Plan was to do a below-knee amputation on 02/29/2024 but patient had a cardiac arrest that night secondary to sepsis. Surgery at that time was deferred. Patient now is intubated sedated and unable to sign his consent.. Patient has no family and for many years at the senior care has had no visitor. He has 1 son which no one has been able to get hold off right several attempts. Considering patient has gangrene of the foot with no vascular supply leading to sepsis and if untreatable lead to his , Dr. Johns will proceed with amputation today, 03/05/2024. Dr. Collins and Dr. Johns has signed 2 physician consent considering patient's clearly expressed wishes prior to cardiac arrest at the time of admission, his current situation and inability to sign the consent form by himself at this time. 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 -complete 5 days of clindamycin 03/13: Discussed with surgery, there is flexion contractures of his amputation which may hinder in him getting prosthetics, patient may require above knee amputation (7) Osteomyelitis of toe of right foot: Code(s): M86.9 - Osteomyelitis, unspecified Status: Chronic Assessment and Plan: As above (8) Peripheral vascular disease: Code(s): I73.9 - Peripheral vascular disease, unspecified Status: Chronic Assessment and Plan: Patient has history of peripheral vascular disease, coronary artery disease -started on aspirin, patient will require Brilinta since he had a STEMI in 2020 but currently holding Brilinta due to surgery and bleeding (9) Type 2 diabetes mellitus: Qualifiers: 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 complication status: with other specified complication 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 residential insulin use: with buttermaker use Qualified Code(s): E11.69 - Type 2 diabetes mellitus with other specified complication; Z79.4 - care home (current) use of insulin Code(s): E11.9 - Type 2 diabetes mellitus without complications Status: Acute Assessment and Plan: Currently on sliding scale insulin, Accu-Cheks Hemoglobin A1c this admission is 8.2 (10) Chronic obstructive pulmonary disease: Code(s): J44.9 - Chronic obstructive pulmonary disease, unspecified Status: Chronic Assessment and Plan: Continue DuoNebs -continue Symbicort (11) Electrolyte abnormality: Code(s): E87.8 - Other disorders of electrolyte and fluid balance, not elsewhere classified Status: Acute Assessment and Plan: Hypernatremia has resolved, (12) Ileus: Code(s): K56.7 - Ileus, unspecified Status: Acute Assessment and Plan: CT scan shows significant amount of tube feeds collected in the stomach. Patient also had high residuals. Patient has already been on Reglan. Bowel sounds are present but decreased. tube feeds restarted after PEG placement 03/26 tube feeds held due to high residuals. Started on Reglan. Restart tube feeds at low rate at noon today. Tolerating tube feeds, continue Reglan and MiraLax (13) Sinus tachycardia: Code(s): R00.0 - Tachycardia, unspecified Status: Acute Assessment and Plan: Does not appear in any respiratory distress. Continue BiPAP p.r.n.. beta-brayden held due to low blood pressure (14) Dysphagia: Code(s): R13.10 - Dysphagia, unspecified Status: Acute Assessment and Plan: Patient failed his bedside swallow evaluation and a modified barium swallow study prior to re-intubation which showed aspiration of thin liquids and pudding 03/24 PEG tube inserted. Tube feeds As above (15) DVT (deep venous thrombosis): Code(s): I82.409 - Acute embolism and thrombosis of unspecified deep veins of unspecified lower extremity Status: Acute Assessment and Plan: ultrasound shows clot surrounding the PICC line in the right upper extremity PICC line working and will be left in place for now -Lovenox on hold, due to anemia and blood noticed in the oral cavity and PEG tube -recheck CBC, may have to give him a unit of blood and start heparin infusion Plan DVT prophylaxis: SCDs, holding Lovenox due to bleeding Stress ulcer prophylaxis: Protonix IV q.12 hours Nutrition: Tolerating tube feeds Code Status: Full code. PEG tube done. Patient awaits tracheostomy placement which is scheduled for 03/31 03/15 Patient has no family available. Patient was extubated on 03/14 and I spoke to patient post extubation. I mentioned possibility of him needing re-intubation and he was agreeable stating that he is not ready to at this time. He stated that do whatever needs to be done to keep me alive. I also mentioned to him that if he gets reintubated and is unable to be weaned he will need tracheostomy and PEG tube placement and he states that he is agreeable to do it if needed. He did mention that he has some nephews in area which can be contacted. academic success coordinator was provided that information. 03/19 I confirmed with patient again regarding his code status he is willing to get reintubated if needed and is willing to proceed with trach and PEG if needed. He wishes to be full code. 03/23 Finally patient's son arrived at bedside and I spoke to him with his and patient's ex- in the conference room. I updated them in detail about the details of patient's admission presentation and hospital course till now. He states that he has not been touch with his dad for last 10 years. He is willing to be the POA at this time. I answered all his questions and explained him the patient is currently in respiratory failure with failure to wean requiring re-intubation x2, congestive Heart Care earlier, gangrene of right foot requiring amputation, sepsis, UTI, dysphagia and he will need trach and PEG. They understand and agree with patient's wishes to proceed with trach and PEG at this time. He was hoping the patient can go to a facility close to where he lives. Critical Care Time Spent: 32 minutes Due to a high probability of clinically significant, life threatening deterioration, the patient required my highest level of preparedness to intervene emergently and I personally spent this critical care time directly and personally managing the patient. This critical care time included obtaining a history; examining the patient; pulse oximetry; ordering and review of studies; arranging urgent treatment with development of a management plan; evaluation of patient's response to treatment; frequent reassessment; and discussions with other providers. It was exclusive of separately billable procedures and treating other patients and teaching time. Please see Assessment and Plan section and the rest of the note for further information on patient assessment and treatment This dictation may have been done utilizing a voice recognition system. Attempts have been made to correct errors. However, there may be uncorrected grammatical, spelling, and recognitions errors present. Subjective Date/time seen: 03/28/24 10:51 Interval history: 03/28/2024: Patient seen and examined the ICU. Remains intubated on CMV mode of ventilation, FiO2 of 40% and PEEP of 8. Sedated with fentanyl and Versed infusion. Patient opens his eyes but does not follow simple commands. Urine output has been adequate, patient is afebrile. Patient has had been having some blood from his mouth as well as his PEG tube. Lovenox was held. Hemoglobin is 7.2 this morning Review of Systems Review of Systems: All systems reviewed & are unremarkable except as noted in HPI and below (HPI) ROS unobtainable: Yes unobtainable due to endotracheal tube, unobtainable due to medical condition and unobtainable due to mental status Exam Narrative: General: Patient intubated sedated and in no acute distress HEENT:, pupils are equal and reactive from a sclera is clear, there is a gauze in the mouth with blood on it. Neck:? supple Respiratory:? Coarse breath sounds bilaterally, decreased at bases, adequate air entry, no wheezing Cardiac:? S1-S2 normal, regular rate and rhythm Abdomen:? Soft, nontender, nondistended, bowel sounds are decreased but present, PEG tube in place Extremities:? Right BKA stump under the dressing. Left dorsalis pedis is dopplerable Neuro:? Patient is sedated, opens eyes, does not follow simple commands, withdraws to pain Skin:? Patient has maceration of his perianal area, pressure ulcer on his buttocks. Psych:? Unable to assess at this time Objective Data Vital Signs Vital Signs: Vital Signs - 24 hr 03/27/24 11:23 03/27/24 11:25 03/27/24 12:00 Temperature Pulse Rate 92 94 104 H Respiratory Rate 16 16 Blood Pressure Pulse Oximetry 92 Oxygen Delivery Mechanical Ventilation Fraction of Inspired Oxygen 30 03/27/24 12:00 03/27/24 12:00 03/27/24 12:00 Temperature Pulse Rate 102 H 102 H Respiratory Rate 16 Blood Pressure 101/51 L Pulse Oximetry Oxygen Delivery Mechanical Ventilation Fraction of Inspired Oxygen 30 03/27/24 12:00 03/27/24 12:00 03/27/24 12:00 Temperature 99.3 F Pulse Rate 94 94 Respiratory Rate 16 Blood Pressure 101/51 L Pulse Oximetry 92 Oxygen Delivery Fraction of Inspired Oxygen 30 03/27/24 13:49 03/27/24 13:51 03/27/24 14:02 Temperature Pulse Rate 100 100 Respiratory Rate 18 Blood Pressure 110/56 L Pulse Oximetry 89 L Oxygen Delivery Mechanical Ventilation Fraction of Inspired Oxygen 35 03/27/24 14:06 03/27/24 14:13 03/27/24 14:00 Temperature Pulse Rate 98 98 102 H Respiratory Rate 18 Blood Pressure Pulse Oximetry 91 Oxygen Delivery Mechanical Ventilation Fraction of Inspired Oxygen 40 03/27/24 14:00 03/27/24 14:00 03/27/24 14:00 Temperature 99.7 F H Pulse Rate 102 H 102 H 102 H Respiratory Rate 16 16 16 Blood Pressure 104/57 L Pulse Oximetry 91 Oxygen Delivery Fraction of Inspired Oxygen 03/27/24 15:47 03/27/24 15:47 03/27/24 16:15 Temperature Pulse Rate 105 H 105 H 106 H Respiratory Rate 16 16 Blood Pressure 93/41 L Pulse Oximetry Oxygen Delivery Fraction of Inspired Oxygen 03/27/24 16:00 03/27/24 16:43 03/27/24 16:43 Temperature Pulse Rate 100 103 H 103 H Respiratory Rate 16 16 16 Blood Pressure Pulse Oximetry Oxygen Delivery Fraction of Inspired Oxygen 03/27/24 16:59 03/27/24 17:12 03/27/24 17:23 Temperature 99.9 F H Pulse Rate 100 96 Respiratory Rate Blood Pressure 81/39 L Pulse Oximetry 96 Oxygen Delivery Mechanical Ventilation Fraction of Inspired Oxygen 40 03/27/24 16:00 03/27/24 16:00 03/27/24 16:00 Temperature Pulse Rate 104 H Respiratory Rate Blood Pressure Pulse Oximetry Oxygen Delivery Mechanical Ventilation Fraction of Inspired Oxygen 40 40 03/27/24 16:00 03/27/24 18:00 03/27/24 18:00 Temperature 100 F H 100.1 F H Pulse Rate 104 H 87 86 Respiratory Rate 16 16 Blood Pressure 95/45 L 86/38 L 86/38 L Pulse Oximetry 95 96 Oxygen Delivery Fraction of Inspired Oxygen 03/27/24 18:00 03/27/24 18:00 03/27/24 18:00 Temperature Pulse Rate 86 86 86 Respiratory Rate 16 16 Blood Pressure Pulse Oximetry Oxygen Delivery Fraction of Inspired Oxygen 03/27/24 18:30 03/27/24 20:00 03/27/24 20:00 Temperature Pulse Rate 85 85 Respiratory Rate 16 Blood Pressure 124/55 L 109/50 L Pulse Oximetry Oxygen Delivery Fraction of Inspired Oxygen 03/27/24 20:00 03/27/24 20:00 03/27/24 20:00 Temperature 100.3 F H Pulse Rate 85 85 Respiratory Rate 16 16 Blood Pressure 105/50 L Pulse Oximetry 97 97 Oxygen Delivery Mechanical Ventilation Fraction of Inspired Oxygen 40 03/27/24 20:00 03/27/24 20:00 03/27/24 20:23 Temperature Pulse Rate 86 85 Respiratory Rate Blood Pressure Pulse Oximetry 97 Oxygen Delivery Mechanical Ventilation Fraction of Inspired Oxygen 40 40 03/27/24 20:26 03/27/24 20:36 03/27/24 22:09 Temperature 99.8 F H Pulse Rate 85 86 85 Respiratory Rate 16 16 16 Blood Pressure 105/47 L Pulse Oximetry 97 Oxygen Delivery Fraction of Inspired Oxygen 03/27/24 22:00 03/27/24 22:00 03/27/24 22:00 Temperature Pulse Rate 85 85 85 Respiratory Rate 16 16 Blood Pressure Pulse Oximetry Oxygen Delivery Fraction of Inspired Oxygen 03/27/24 22:00 03/27/24 23:48 03/28/24 00:02 Temperature 99.6 F Pulse Rate 85 81 80 Respiratory Rate 16 Blood Pressure 105/47 L 94/45 L Pulse Oximetry 97 97 Oxygen Delivery Mechanical Ventilation Fraction of Inspired Oxygen 40 03/28/24 02:00 03/28/24 00:05 03/28/24 00:00 Temperature 99.3 F Pulse Rate 81 80 80 Respiratory Rate 16 16 Blood Pressure 116/57 L 116/54 L Pulse Oximetry 97 Oxygen Delivery Fraction of Inspired Oxygen 03/28/24 02:00 03/28/24 04:00 03/28/24 00:00 Temperature Pulse Rate 80 91 80 Respiratory Rate 16 16 16 Blood Pressure Pulse Oximetry Oxygen Delivery Fraction of Inspired Oxygen 03/28/24 02:00 03/28/24 04:00 03/28/24 02:00 Temperature Pulse Rate 80 91 80 Respiratory Rate 16 16 Blood Pressure 112/56 L Pulse Oximetry Oxygen Delivery Fraction of Inspired Oxygen 03/28/24 03:00 03/28/24 04:00 03/28/24 04:00 Temperature 99.4 F Pulse Rate 80 91 83 Respiratory Rate 10 L Blood Pressure 117/57 L 116/54 L 117/57 L Pulse Oximetry 97 Oxygen Delivery Fraction of Inspired Oxygen 03/28/24 02:35 03/28/24 04:30 03/28/24 06:11 Temperature 98.7 F Pulse Rate 83 79 74 Respiratory Rate 16 16 Blood Pressure 123/57 L Pulse Oximetry 99 99 Oxygen Delivery Mechanical Ventilation Fraction of Inspired Oxygen 40 03/28/24 00:00 03/28/24 02:00 03/28/24 04:00 Temperature Pulse Rate 81 81 81 Respiratory Rate Blood Pressure Pulse Oximetry Oxygen Delivery Fraction of Inspired Oxygen 03/28/24 06:00 03/28/24 00:00 03/28/24 04:00 Temperature Pulse Rate 78 Respiratory Rate Blood Pressure Pulse Oximetry 98 97 Oxygen Delivery Mechanical Ventilation Mechanical Ventilation Fraction of Inspired Oxygen 40 40 03/28/24 00:00 03/28/24 04:00 03/28/24 06:00 Temperature Pulse Rate 77 Respiratory Rate 16 Blood Pressure Pulse Oximetry Oxygen Delivery Fraction of Inspired Oxygen 40 40 03/28/24 06:00 03/28/24 06:00 03/28/24 07:10 Temperature Pulse Rate 74 77 75 Respiratory Rate 16 Blood Pressure 123/57 L Pulse Oximetry 99 Oxygen Delivery Mechanical Ventilation Fraction of Inspired Oxygen 40 03/28/24 07:10 03/28/24 07:20 03/28/24 08:00 Temperature Pulse Rate 75 80 84 Respiratory Rate 16 16 16 Blood Pressure Pulse Oximetry Oxygen Delivery Fraction of Inspired Oxygen 03/28/24 08:00 03/28/24 08:00 03/28/24 08:00 Temperature 98.6 F Pulse Rate 84 84 84 Respiratory Rate 16 16 Blood Pressure 127/48 L 127/48 L Pulse Oximetry 99 Oxygen Delivery Fraction of Inspired Oxygen 03/28/24 08:46 03/28/24 09:57 03/28/24 10:00 Temperature Pulse Rate 100 99 90 Respiratory Rate 16 Blood Pressure 122/62 Pulse Oximetry 97 Oxygen Delivery Mechanical Ventilation Fraction of Inspired Oxygen 40 03/28/24 10:00 03/28/24 10:00 03/28/24 10:00 Temperature 98.5 F Pulse Rate 90 90 88 Respiratory Rate 16 16 Blood Pressure 86/65 L 86/65 L Pulse Oximetry 96 Oxygen Delivery Fraction of Inspired Oxygen 03/28/24 10:28 03/28/24 08:00 03/28/24 08:00 Temperature Pulse Rate 96 Respiratory Rate 16 Blood Pressure Pulse Oximetry Oxygen Delivery Mechanical Ventilation Fraction of Inspired Oxygen 40 40 Intake/Output Intake/Output: Intake & Output 03/25/24 03/26/24 03/27/24 03/28/24 23:59 23:59 23:59 23:59 Intake Total 2600.4 2508.2 956.2 281.6 Output Total 725 650 800 350 Balance 1875.4 1858.2 156.2 -68.4 Meds/Results Medications: Active Medications Generic Name Dose Route Start Last Admin Trade Name Freq PRN Reason Stop Dose Admin Acetaminophen 650 mg 03/25/24 12:39 03/27/24 15:48 Acetaminophen Elixir 325 Mg/10.15 Ml Udc PO 650 mg Q4H PRN Administration Mild Pain (1-3) or Fever Albuterol/Ipratropium 3 ml 02/29/24 02:00 03/28/24 07:10 Ipratropium 0.5 Mg/Albuterol Sulfate 2.5 Mg Ampul.Neb 3 Ml INHALATION 3 ml Q6HRT JASON Administration Alteplase, Recombinant 2 mg 03/06/24 09:45 03/22/24 16:56 Alteplase 2 Mg Vial (Cathflo) IV PUSH 2 mg ONCE PRN Administration Line Occlusion Aspirin 81 mg 03/09/24 08:00 03/28/24 08:47 Aspirin 81 Mg Chewable Tablet FEED TUBE 81 mg DAILY@0800 [facility] Administration Bisacodyl 10 mg 03/24/24 07:31 03/24/24 16:04 Bisacodyl 10 Mg Suppository RECTAL 10 mg QAM PRN Administration Constipation Dextrose 12.5 gm 02/28/24 19:23 Dextrose 50% 25 Gm/50 Ml Syringe IV PUSH PRN PRN Hypoglycemia Protocol Enoxaparin Sodium 90 mg 03/23/24 07:45 03/28/24 08:48 Enoxaparin 100 Mg/Ml Syringe SUB-Q Not Given Q12HR [facility]1983 Glucagon 1 mg 02/28/24 19:23 Glucagon For Inj 1 Mg Vial IM PRN PRN Hypoglycemia Protocol Glucose 15 gm 03/08/24 10:19 Glucose Oral Gel 15 Gm Of Glucse In 37.5 Gm Tube FEED TUBE PRN PRN Hypoglycemia Protocol Dextrose 1,000 mls @ 100 mls/hr 02/28/24 19:23 Dextrose 5% 1,000 Ml IVPB PRN PRN Hypoglycemia Protocol Fentanyl Citrate 2,500 mcg in 250 mls @ 7.5 mls/hr 03/22/24 12:15 03/28/24 10:28 Fentanyl 2,500 Mcg/Ns 250 Ml IV CONT 75 mcg/hr .[id number] JASON 7.5 mls/hr Titration Protocol 75 MCG/HR Midazolam HCl 100 mg in 100 mls @ 2 mls/hr 03/22/24 12:15 03/28/24 10:00 Versed 100 Mg/Ns 100 Ml IV CONT 2 mg/hr .Q50H JASON 2 mls/hr Titration Protocol 2 MG/HR Norepinephrine Bitartrate 8 mg in 250 mls @ 5.625 mls/hr 03/25/24 22:55 03/28/24 10:00 Levophed 8 Mg/D5w 250 Ml IV CONT 3 mcg/min .Q24H JASON 5.63 mls/hr Titration Protocol 3 MCG/MIN Insulin Aspart 3 - 6 units 03/15/24 17:00 03/28/24 07:43 Insulin Aspart (*Bkc) 100 Units/Ml SUB-Q Not Given Q4HR JASON Protocol Insulin Glargine 55 units 03/15/24 09:00 03/16/24 10:44 Insulin Glargine (*Bkc) 100 Units/Ml SUB-Q 55 units DAILY JASON Administration Labetalol HCl 20 mg 03/08/24 10:06 03/08/24 16:48 Labetalol Hcl Inj 100 Mg/20 Ml Vial IV PUSH 20 mg Q4H PRN Administration SBP > 160 and HR> 60 -1st choice Metoclopramide HCl 10 mg 03/27/24 12:00 03/28/24 06:53 Metoclopramide Hcl Inj 10 Mg/2 Ml Vial IV PUSH 10 mg Q6HR JASON Administration Morphine Sulfate 2 mg 03/19/24 19:39 03/21/24 20:36 Morphine Sulfate (*Crx) 2 Mg/Ml Inj IV PUSH 2 mg Q2HR PRN Administration Pain Rated 7-10 Multi-Ingred Cream/Lotion/Oil/Oint 1 applic 03/22/24 21:00 03/28/24 08:50 Mineral Oil/White Petrolatum Ointment EACH EYE 1 applic Q12HR JASON Administration Pantoprazole Sodium 40 mg 03/02/24 09:00 03/28/24 08:47 Pantoprazole Sodium Iv 40 Mg Vial IV PUSH 40 mg Q12HR JASON Administration Polyethylene Glycol 17 gm 03/24/24 09:00 03/28/24 08:49 Polyethylene Glycol 3350 17 Gm Powd.Pack PO 17 gm QAM JASON Administration Sodium Chloride 20 ml 02/28/24 23:37 Central Line Flush IV PUSH PRN PRN after blood draws Sodium Chloride 20 ml 03/21/24 08:57 Central Line Flush IV PUSH PRN PRN after blood draws Sodium Chloride 10 ml 03/21/24 08:57 Central Line Flush IV PUSH PRN PRN with TPN bag changes Sodium Chloride 10 ml 03/21/24 14:00 03/28/24 06:53 Central Line Flush IV PUSH 10 ml Q8HR JASON Administration Radiology Results: ITS Impressions Lower Extremity CTA 02/28/24 14:54 IMPRESSION: 1. 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 2. Moderate stenosis of right popliteal artery. 3. Osteomyelitis involving first proximal and distal phalanges and head of first metatarsal. Head CT 02/29/24 05:55 Impression: No intracranial hemorrhage, mass, or acute infarct. Stable chronic encephalomalacia in the high left parietal lobe. Atrophy and chronic white matter changes, as above. Chest/Abdomen/Pelvis CTA 02/29/24 06:02 Impression: Extensive right upper lobe consolidation and more mild right middle lobe consolidation, consistent with pneumonia. Consider aspiration pneumonia. Moderate to large right pleural effusion with complete atelectasis of the right lower lobe. Moderate left pleural effusion with minimal left basilar atelectasis. Small pericardial effusion. No definite acute abnormality in the abdomen or pelvis. Chronic compression fractures, as above. Renal Ultrasound 03/03/24 15:45 IMPRESSION: 1. Normal kidneys without hydronephrosis. 2. Small amount of ascites in the abdomen and pelvis. Abdomen Ultrasound 03/13/24 16:52 IMPRESSION: 1. No etiology for abnormal liver function tests. 2. Normal hepatic veins and main portal vein. Right and left portal veins and proper hepatic artery not evaluated. 3. Right pleural effusion. Vascular Ultrasound 03/13/24 16:52 IMPRESSION: 1. No etiology for abnormal liver function tests. 2. Normal hepatic veins and main portal vein. Right and left portal veins and proper hepatic artery not evaluated. 3. Right pleural effusion. Chest/Abdomen/Pelvis CT 03/16/24 21:51 IMPRESSION: Anasarca Large pleural effusions with prominent compressive atelectasis of the lower lobes especially, dependent atelectasis of the middle and upper lobes Heart size. Prominent coronary artery atherosclerotic calcifications Minimal pericardial effusion Prominent diffuse thickening of urinary bladder wall suggesting cystitis area Ha catheter in bladder lumen Very prominent amount of fluid and large fluid level within the stomach despite presence of NG tube T11 and L1 moderate anterior wedge compression fractures, likely chronic Thoracentesis Ultrasound 03/18/24 10:27 IMPRESSION: 1. Successful ultrasound-guided thoracentesis yielding 550 mL of doris-colored fluid. Modified Barium Swallow 03/21/24 15:25 IMPRESSION: 1. Aspiration of thin liquids and pudding. 2. Please refer to the speech therapy report for recommendations. Tube Placement 03/22/24 11:33 IMPRESSION: 1. Fluoroscopy guided nasoenteric tube placement with tip in the stomach. Abdomen X-Ray 03/22/24 12:47 IMPRESSION: 1. Nasogastric tube tip in the stomach. 2. Nasoenteric tube tip in the stomach. Venous Doppler Study 03/22/24 16:38 IMPRESSION: Nonocclusive right subclavian vein thrombus. No additional deep venous thrombosis detected in the remaining bilateral upper extremity veins. Chest X-Ray 03/27/24 06:45 Impression: [id number] bilateral pleural effusions with mild to moderate pulmonary edema pattern. Probable element of left lower lobe atelectasis. Support tubes are in place, as above. Labs Labs: Laboratory Results - last 24 hr 03/27/24 03/27/24 03/27/24 04:27 12:00 17:25 WBC RBC Hgb Hct MCV MCH MCHC RDW Plt Count MPV Immature Gran % (Auto) Neut % (Auto) Lymph % (Auto) Harney % (Auto) Eos % (Auto) Baso % (Auto) Lymph # (Auto) Harney # (Auto) Eos # (Auto) Baso # (Auto) Abs Immat Gran (auto) Absolute Neuts (auto) Absolute Nucleated RBC Nucleated RBC % Platelet Estimate Hypochromasia Anisocytosis Schistocytes Puncture Site Not Reportable ABG pH 7.450 ABG pCO2 43.0 ABG pO2 68.7 L ABG PO2/FiO2 Ratio 2.29 ABG HCO3 29.2 H ABG O2 Saturation 94.4 L ABG O2 Content 11.3 L ABG Base Excess 4.8 A-a Gradient 94.7 Oxyhemoglobin 92.5 Carboxyhemoglobin 1.5 Methemoglobin 0.1 Reduced Hemoglobin 5.9 H Total Hemoglobin 8.6 L O2 Delivery Device Ventilator O2 Liters/Min Not Reportable Minute Volume Not Reportable Vent Rate 16 Vent Mode Cmv FiO2 30 Tidal Volume 380 PEEP 8 Peak Inspir Pressure Not Reportable Pressure Support Not Reportable Sodium Potassium Chloride Carbon Dioxide Anion Gap BUN Creatinine Estim Creat Clear Calc Estimated GFR Glucose POC Capillary Glucose 150 H 169 H Calcium 03/27/24 03/27/24 03/27/24 19:47 20:24 23:52 WBC 9.3 RBC 2.56 L Hgb 7.1 L Hct 24.6 L MCV 96.1 MCH 27.7 MCHC 28.9 L RDW 18.5 H Plt Count 199 MPV 10.6 H Immature Gran % (Auto) Neut % (Auto) Lymph % (Auto) Harney % (Auto) Eos % (Auto) Baso % (Auto) Lymph # (Auto) Harney # (Auto) Eos # (Auto) Baso # (Auto) Abs Immat Gran (auto) Absolute Neuts (auto) Absolute Nucleated RBC Nucleated RBC % Platelet Estimate Hypochromasia Anisocytosis Schistocytes Puncture Site ABG pH ABG pCO2 ABG pO2 ABG PO2/FiO2 Ratio ABG HCO3 ABG O2 Saturation ABG O2 Content ABG Base Excess A-a Gradient Oxyhemoglobin Carboxyhemoglobin Methemoglobin Reduced Hemoglobin Total Hemoglobin O2 Delivery Device O2 Liters/Min Minute Volume Vent Rate Vent Mode FiO2 Tidal Volume PEEP Peak Inspir Pressure Pressure Support Sodium Potassium Chloride Carbon Dioxide Anion Gap BUN Creatinine Estim Creat Clear Calc Estimated GFR Glucose POC Capillary Glucose 167 H 189 H Calcium 03/28/24 03/28/24 03/28/24 04:26 04:53 07:36 WBC 7.5 RBC 2.61 L Hgb 7.2 L Hct 24.9 L MCV 95.4 MCH 27.6 MCHC 28.9 L RDW 18.3 H Plt Count 192 MPV 10.4 Immature Gran % (Auto) 0.9 H Neut % (Auto) 60.2 Lymph % (Auto) 25.5 Harney % (Auto) 8.8 H Eos % (Auto) 4.2 Baso % (Auto) 0.4 Lymph # (Auto) 1.92 Harney # (Auto) 0.7 H Eos # (Auto) 0.3 Baso # (Auto) 0.0 Abs Immat Gran (auto) 0.07 H Absolute Neuts (auto) 4.5 Absolute Nucleated RBC 0.000 Nucleated RBC % 0.0 Platelet Estimate Adequate Hypochromasia 1+ Anisocytosis 1+ Schistocytes None seen Puncture Site ABG pH ABG pCO2 ABG pO2 ABG PO2/FiO2 Ratio ABG HCO3 ABG O2 Saturation ABG O2 Content ABG Base Excess A-a Gradient Oxyhemoglobin Carboxyhemoglobin Methemoglobin Reduced Hemoglobin Total Hemoglobin O2 Delivery Device O2 Liters/Min Minute Volume Vent Rate Vent Mode FiO2 Tidal Volume PEEP Peak Inspir Pressure Pressure Support Sodium 144 Potassium 3.9 Chloride 109 H Carbon Dioxide 31 H Anion Gap 4 BUN 25 H Creatinine 0.80 Estim Creat Clear Calc 79 Estimated GFR > 60 Glucose 177 H POC Capillary Glucose 172 H 198 H Calcium 8.0 L Quality VTE Prophylaxis VTE prophylaxis: pharmacologic ordered
--- NOTE | 2024-03-28 11:18 | PCNFU ---
Nutrition Follow-Up Complete: Suboptimal Energy Intake as related to mechanical vent as evidenced by NPO. Goal: Meet estimated nutritional needs Patient is progressing towards goal. We will continue current goal. Pt current nutrition is Vital AF 1.2. Nutrition recommendation: Goal rate at 60ml/hr Last recorded weight is 92 kg, down from 98 kg. Bowel Motility: +BM reported 03/25 Labs Reviewed:Glu 177, BUN 25, Hgb 7.2 Meds Noted:Levophed, Fentanyl, Versed, Reglan, Miralax Skin: Stage II-sacrum, Right BKA Additional Notes: Patient remains on mechanical vent. Tube feedings are being tolerated at this time of Vital AF 1.2 at 20 ml/hr. Plans to advance tube feeedings today to 40 ml/hr then goal rate of 60 ml/hr tomorrow 03/29. Protein Modulars continue of Minh BID and Prosource BID for additional kcal and protein needs. Total Nutrition with goal rate at 60 ml/hr: 1904 kcals/144 gm protein/1070 ml water. Flush 30 ml q 4 hours. Meeting 97% kcal needs at 20 kcal/kg and 100% protein needs at 1.8-2.0 gm/kg IBW. Will monitor weight, labs, skin, tube feedings, meds, every Sunday and Sunday.
[2024-03-28 12:28] LABS: Glucose Point of Care 171 mg/dl (65-105)
[2024-03-28 12:31] LABS: Basophils Percent Auto 0.1 % (0.2-1.2); Eosinophils Absolute Auto 0.3 K/mm3 (0-0.3); Eosinophils Percent Auto 4.5 % (0-4.4); Hematocrit 24.4 % (42.0-52.0); Hemoglobin 7.2 g/dL (14.0-18.0); Immature Granulocyte Absolute 0.07 K/mm3 (0.00-0.031); Lymphocytes Absolute Auto 1.76 K/mm3 (0.9-3.2); Lymphocytes Percent Auto 25.7 % (18.3-44.2); Mean Corpuscular HGB Conc 29.5 g/dl (32-36); Mean Corpuscular Hemoglobin 28.1 pg (26-34); Mean Corpuscular Volume 95.3 fl (80-100); Mean Platelet Volume 10.2 fl (7.4-10.4); Monocytes Absolute Auto 0.6 K/mm3 (0.1-0.6); Monocytes Percent Auto 8.6 % (2.6-8.5); Neutrophils Absolute Auto 4.1 K/mm3 (1.3-6.7); Neutrophils Percent Auto 60.1 % (45.5-73.1); Platelet Count Result 176 k/mm3 (150-375); Red Blood Count 2.56 M/mm3 (4.6-6.20); Red Cell Distribution Width 18.4 % (11.5-14.5); White Blood Count 6.8 K/mm3 (4.5-10.0)
[2024-03-28] MEDS: FENTANYL 2,500MCG/NS250ML(*CRX 2,500 MCG/250 ML BAG IV CONT (12:37)
[2024-03-28 17:34] LABS: Glucose Point of Care 161 mg/dl (65-105)
[2024-03-28 20:31] LABS: Glucose Point of Care 204 mg/dl (65-105)
[2024-03-28] MEDS: INSULIN ASPART (*BKC) 100 UNITS/ML SUB-Q (20:32)
[2024-03-29] VITALS (54 sets, daily range): BP systolic 90–128; BP diastolic 47–71; PULSE 82–109; RESP 16–17; TEMP 37.2–37.6; O2SAT 93–98
[2024-03-29] LABS: Glucose Point of Care 173 mg/dl (65-105)
[2024-03-29] MEDS: METOCLOPRAMIDE HCL INJ 10 MG/2 ML VIAL IV PUSH ×4 (00:01→17:14)
[2024-03-29] MEDS: IPRATROPIUM 0.5 MG/ALBUTEROL SULFATE 2.5 MG AMPUL.NEB 3 ML INHALATION ×4 (02:12→20:40)
[2024-03-29 04:46] LABS: Alveolar/Arterial O2 Gradient 125.7 mmHg; Base Excess ABG 5.5 mEq/l (+/-2.0); Fractional Inspired Oxygen 40 %; HCO3 ABG 29.1 mEq/l (22.0-26.0); Methemoglobin ABG 0.1 %THb (0-1.5); Oxygen Saturation ABG 98.5 % (95.0-100.0); Oxyhemoglobin 97.8 % THb (90.0-100.0); PCO2 ABG 38.2 mmHg (35.0-45.0); PO2 ABG 115.6 mmHg (80.0-100.0); PO2 FiO2 Ratio Arterial Blood 2.89 %; Reduced Hemoglobin 1.1 %THb (0-5.0); pH ABG 7.499 (7.350-7.450)
[2024-03-29 04:48] LABS: Device VENTILATOR; Modified Allen's Test Pass; Site Drawn RIGHT RADIAL; Total Hemoglobin 7.8 g/dL (12.0-18.0)
[2024-03-29 04:49] LABS: Arterial Blood Gas PEEP 8 cmH2O; Arterial Blood Gas Tidal Volume 380 ml; Arterial Blood Gas Vent Mode CMV; Arterial Blood Gas Ventilator rate 16 /MIN
[2024-03-29 04:57] LABS: Basophils Percent Auto 0.3 % (0.2-1.2); Eosinophils Absolute Auto 0.3 K/mm3 (0-0.3); Eosinophils Percent Auto 4.5 % (0-4.4); Hematocrit 23.5 % (42.0-52.0); Immature Granulocyte Absolute 0.07 K/mm3 (0.00-0.031); Immature Granulocyte Percent A 1.1 % (0-0.5); Lymphocytes Percent Auto 24.9 % (18.3-44.2); Mean Corpuscular HGB Conc 29.8 g/dl (32-36); Mean Corpuscular Hemoglobin 28.2 pg (26-34); Mean Corpuscular Volume 94.8 fl (80-100); Mean Platelet Volume 10.4 fl (7.4-10.4); Monocytes Absolute Auto 0.6 K/mm3 (0.1-0.6); Neutrophils Absolute Auto 3.9 K/mm3 (1.3-6.7); Neutrophils Percent Auto 60.2 % (45.5-73.1); Platelet Count Result 165 k/mm3 (150-375); Red Blood Count 2.48 M/mm3 (4.6-6.20); Red Cell Distribution Width 18.5 % (11.5-14.5); White Blood Count 6.4 K/mm3 (4.5-10.0)
[2024-03-29 05:09] LABS: Lactic Acid Reflex 0.9 mmol/L (0.7-2.0)
[2024-03-29 05:20] LABS: Anisocytosis 1+; Hypochromasia 1+; Platelet Estimate Decreased (Adequate)
[2024-03-29 05:21] LABS: Microcytosis 1+ (NORMAL); Schistocytes None Seen; Smudge Cells PRESENT
[2024-03-29 05:28] LABS: Alanine Aminotransferase 16 U/L (6-50); Albumin Level 2.5 g/dL (3.5-5.1); Alkaline Phosphatase 96 U/L (38-126); Anion Gap 4 mmol/L (4-12); Aspartate Amino Transferase 22 U/L (17-59); Bilirubin,Total 0.4 mg/dL (0.2-1.3); Blood Urea Nitrogen 32 mg/dL (9-20); Calcium 7.9 mg/dL (8.4-10.2); Carbon Dioxide 32 mmol/L (22-30); Chloride 106 mmol/L (98-107); Estimated CRCL calculation 79 ml/min; Estimated Glomerular Filt Rate > 60; Glucose 190 mg/dL (65-110); Magnesium 2.1 mg/dL (1.6-2.3); Phosphorus 3.1 mg/dL (2.5-4.5); Potassium 3.9 mmol/L (3.4-5.0); Sodium 142 mmol/L (137-145)
[2024-03-29] MEDS: CENTRAL LINE FLUSH 10 ML IV PUSH ×3 (06:17→21:00)
[2024-03-29 08:27] LABS: Glucose Point of Care 183 mg/dl (65-105)
[2024-03-29 08:43] LABS: INR 1.1; Prothrombin Time 14.9 Seconds (11.1-14.7)
[2024-03-29] MEDS: POTASSIUM CHLORIDE 20 MEQ PACKET (FOR LIQUID) FEED TUBE (09:08)
[2024-03-29] MEDS: polyethylene glycoL 3350 17 GM POWD.PACK PO (09:08)
[2024-03-29] MEDS: MINERAL OIL/WHITE PETROLATUM OINTMENT 1 APPLIC EACH EYE ×2 (09:08→20:41)
[2024-03-29] MEDS: ASPIRIN 81 MG CHEWABLE TABLET FEED TUBE (09:08)
[2024-03-29] MEDS: PANTOPRAZOLE SODIUM IV 40 MG VIAL IV PUSH ×2 (09:08→20:42)
[2024-03-29] MEDS: SODIUM CHLORIDE 0.9% IV 250 ML 30 ML IV CONT (10:36)
--- NOTE | 2024-03-29 10:42 | P.PNINT_ITS ---
Progress Note: A&P Assessment and Plan (1) Acute respiratory failure with hypoxia: Code(s): J96.01 - Acute respiratory failure with hypoxia Status: Acute Assessment and Plan: Acute respiratory failure likely related to cardiac arrest, aspiration pneumonia, NSTEMI, hypoxia, septic shock Worsening likely secondary to ARDS versus pulmonary edema Intubated 02/27 02/28 Chest CTA: Extensive right upper lobe consolidation and more mild right middle lobe consolidation, consistent with pneumonia. Consider aspiration pneumonia.Moderate to large right pleural effusion with complete atelectasis of the right lower lobe. Moderate left pleural effusion with minimal left basilar atelectasis. Small pericardial effusion. No definite acute abnormality in the abdomen or pelvis. Chronic compression fractures, as above . -03/07 right thoracentesis with 1 L fluid removed -03/08 left-sided thoracentesis 550 mL -03/11: patient was in pressure support ventilation 02/18, with decrease tidal volumes in the upper 200s. place patient back on CMV, I have asked the bedside RN to decrease the Precedex infusion once patient is more awake will place back on spontaneous breathing trials 03/12: Place patient on SBT 04/17, low tidal volumes, low respiratory rate. Patient had replaced back on CMV mode of ventilation. -even on ASV patient is breathing only 7-8 times a minute 03/13: Off Precedex infusion overnight, placed patient on pressure support ventilation 04/17, initially did well but not significantly tachycardic and tachypneic and in respiratory distress, patient was placed back on CMV mode of ventilation and low-dose was 03/14 8/5 PSV SBT done for more than 1 hour. RSBI, ABG and Vitals acceptable. Pt awake and following commands. Patient was extubated. Initially patient did well and was on nasal cannula and was able to communicate. Over 12 hours patient became more hypoxic with increased respiratory distress and tachypnea. I spoke to patient post extubation and was agreeable to re-intubation if needed and stated that 'he is not ready to ' and 'do what ever it takes'. He was re intubated at night. I also mentioned to him that he may need tracheostomy and PEG tube placement if he gets we intubated and is not weanable. He told me 'to proceed with it if needed'. Solu-Medrol IV given for airway edema and will be continued for 24 hours -completed course of Solu-Medrol -continue bronchodilators -CT scan shows large pleural effusions bilaterally. I will request IR for thoracentesis.. Patient is on minimal ventilator setting but has failed trials initially multiple times and then once extubated he was reintubated within 12 hours. I will treat try again after thoracentesis to see patient is weanable from the vent otherwise will proceed with trach and PEG as patient has been on ventilator for more than 2 weeks. 03/17 right thoracentesis 1 L fluid was removed 03/18 left thoracentesis 550 mL fluid was removed Will also continue diuretics. 03/19 patient was extubated after weaning trial 03/20 continue nasal cannula, BiPAP p.r.n., hold diuretics, incentive spirometry, spoke to patient after extubation yesterday he is willing to be intubated if needed and proceed with trach and PEG if needed hopefully we can avoid that situation 03/21 patient continues to require BiPAP intermittently and tolerates nasal cannula. He appears quite weak although he does have borderline cough. Cont inue incentive spirometry. P.r.n. BiPAP. BiPAP at night. Nasal cannula as tolerated. Patient remains at risk of requiring intubation. I spoke to patient again and mention that to him and he verbalized understanding by noting his head. I will check chest x-ray. Continue ICU monitoring 03/22 discussed with the patient emphasized importance of using BiPAP for increased work of breathing and at night due to his deconditioning and weakness. He is currently saturating on nasal cannula and appears not in any respiratory distress. later patient deteriorated and required re-intubation 03/23 ABG and chest x-ray. patient has failed extubation twice and has been on ventilator for close to 20 days. Patient is awaiting trach now . ENT consulted ABG and chest x-ray reviewed. Continue mechanical ventilation. Tracheostomy scheduled for 03/31. no ENT coverage until then Sedated with fentanyl and Versed infusion, I have asked the bedside RN to hold his sedation medication (2) Elevated LFTs: Code(s): R79.89 - Other specified abnormal findings of blood chemistry Status: Acute Assessment and Plan: 03/13: Significant elevation in LFTs, AST 2280, ALT 988, alk-phos 722 -patient has been hemodynamically stable, no hypotension noted in the last 24-48 hours -statin discontinued. Hold Tylenol -no tenderness in the right upper, lower quadrant or epigastric region on exam -negative vital hepatitis panel, right upper quadrant ultrasound with Doppler negative for hepatic or portal vein thrombosis -patient evaluated by GI -levels now improved. Monitor (3) Cardiac arrest with pulseless electrical activity: Code(s): I46.9 - Cardiac arrest, cause unspecified Status: Acute Assessment and Plan: Cardiac arrest, secondary to unknown etiology. Possible aspiration pneumonia, NSTEMI, hypoxia, septic shock, infection -see code blue sheet for the details -patient currently intubated, -appreciate cardiology following the patient 02/29/2024 echocardiogram Summary 1. Technically difficult study with limited views. 2. Left ventricular chamber dimension is normal. 3. Left ventricular systolic function is mildly reduced, estimated at 45-50%. The apex appears to be hypokinetic. 4. There is mildly increased left ventricular wall thickness. 5. The left ventricular diastolic function is grade I diastolic dysfunction. 6. Right ventricular systolic function is normal. 7. Left atrial chamber dimension is moderately enlarged. 8. There is mild to moderate tricuspid valve regurgitation. 9. There is small anterior pericardial effusion. (4) Septic shock: Code(s): A41.9 - Sepsis, unspecified organism; R65.21 - Severe sepsis with septic shock Status: Acute Assessment and Plan: Resolved Patient in shock, likely related to the gangrene, aspiration pneumonia, status post cardiac arrest 02/28/2024: Blood cultures have been obtained and negative Status post 10 days of antibiotics 03/16 low-grade fever increase in WBC CT scan as above, repeat blood cultures and sputum pending UA suggestive of UTI. Urine cultures pending. Ha has been changed. Completed course of cefepime currently on low-dose Levophed which is likely secondary to sedation. (5) NSTEMI (non-ST elevated myocardial infarction): Code(s): I21.4 - Non-ST elevation (NSTEMI) myocardial infarction Status: Acute Assessment and Plan: -appreciate cardiology evaluation and recommendation -Continue aspirin, Lovenox and high-dose a statin - beta-brayden, losartan are on hold due to soft blood pressure. -03/02 heparin infusion was discontinued after 48 hours for NSTEMI by cardiology (6) Gangrene of right foot: Code(s): I96 - Gangrene, not elsewhere classified Status: Acute Assessment and Plan: CTA showed peripheral arterial disease with total occlusion of the right anterior and posterior tibial arteries and right peroneal artery with distal reconstitution of peroneal artery. This extensive gangrene of the right foot with gas seen on CT of the foot. General surgery spoke to the patient in the ER on the day of admission on 02/27 patient at that time agreed for below-knee amputation. Plan was to do a below- knee amputation on 02/29/2024 but patient had a cardiac arrest that night secondary to sepsis. Surgery at that time was deferred. Patient now is intubated sedated and unable to sign his consent.. Patient has no family and for many years at the intermediate has had no visitor. He has 1 son which no one has been able to get hold off right several attempts. Considering patient has gangrene of the foot with no vascular supply leading to sepsis and if untreatable lead to his , Dr. Johns will proceed with amputation today, 03/05/2024. Dr. Collins and Dr. Johns has signed 2 physician consent considering p preston's clearly expressed wishes prior to cardiac arrest at the time of admission, his current situation and inability to sign the consent form by himself at this time. 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 -complete 5 days of clindamycin 03/13: Discussed with surgery, there is flexion contractures of his amputation which may hinder in him getting prosthetics, patient may require above knee amputation (7) Osteomyelitis of toe of right foot: Code(s): M86.9 - Osteomyelitis, unspecified Status: Chronic Assessment and Plan: As above (8) Peripheral vascular disease: Code(s): I73.9 - Peripheral vascular disease, unspecified Status: Chronic Assessment and Plan: Patient has history of peripheral vascular disease, coronary artery disease -continue aspirin (9) Type 2 diabetes mellitus: Qualifiers: 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 complication status: with other specified complication 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 senior living insulin use: with senior living use Qualified Code(s): E11.69 - Type 2 diabetes mellitus with other specified complication; Z79.4 - correction (current) use of insulin Code(s): E11.9 - Type 2 diabetes mellitus without complications Status: Acute Assessment and Plan: Currently on sliding scale insulin, Accu-Cheks Hemoglobin A1c this admission is 8.2 (10) Chronic obstructive pulmonary disease: Code(s): J44.9 - Chronic obstructive pulmonary disease, unspecified Status: Chronic Assessment and Plan: Continue DuoNebs -continue Symbicort (11) Electrolyte abnormality: Code(s): E87.8 - Other disorders of electrolyte and fluid balance, not elsewhere classified Status: Acute Assessment and Plan: Hypernatremia has resolved, decreased free water flushes (12) Ileus: Code(s): K56.7 - Ileus, unspecified Status: Acute Assessment and Plan: CT scan shows significant amount of tube feeds collected in the stomach. Patient also had high residuals. Patient has already been on Reglan. Bowel sounds are present but decreased. tube feeds restarted after PEG placement 03/26 tube feeds held due to high residuals. Started on Reglan. Restart tube feeds at low rate at noon today. Tolerating tube feeds, continue Reglan and MiraLax (13) Sinus tachycardia: Code(s): R00.0 - Tachycardia, unspecified Status: Acute Assessment and Plan: Does not appear in any respiratory distress. Continue BiPAP p.r.n.. Beta-brayden on hold as patient is on pressors -resolved (14) Dysphagia: Code(s): R13.10 - Dysphagia, unspecified Status: Acute Assessment and Plan: 03/24 PEG tube inserted. Tolerating Tube feeds (15) DVT (deep venous thrombosis): Code(s): I82.409 - Acute embolism and thrombosis of unspecified deep veins of unspecified lower extremity Status: Acute Assessment and Plan: ultrasound shows clot surrounding the PICC line in the right upper extremity PICC line working and will be left in place for now -Lovenox on hold, due to anemia and blood noticed in the oral cavity and PEG tube -03/29: Hemoglobin 7.0 this morning, will transfuse 1 unit of packed RBCs Plan DVT prophylaxis: SCDs to left lower extremity, holding Lovenox due to bleeding any anemia Stress ulcer prophylaxis: Protonix IV q.12 hours Nutrition: Tolerating tube feeds Code Status: Full code. PEG tube done. Patient awaits tracheostomy placement which is scheduled for 03/31 03/15 Patient has no family available. Patient was extubated on 03/14 and I spoke to patient post extubation. I mentioned possibility of him needing re- intubation and he was agreeable stating that he is not ready to at this time. He stated that do whatever needs to be done to keep me alive. I also mentioned to him that if he gets reintubated and is unable to be weaned he will need tracheostomy and PEG tube placement and he states that he is agreeable to do it if needed. He did mention that he has some nephews in area which can be contacted. safety coordinator was provided that information. 03/19 I confirmed with patient again regarding his code status he is willing to get reintubated if needed and is willing to proceed with trach and PEG if needed. He wishes to be full code. 03/23 Finally patient's son arrived at bedside and I spoke to him with his and patient's ex- in the conference room. I updated them in detail about the details of patient's admission presentation and hospital course till now. He states that he has not been touch with his dad for last 10 years. He is willing to be the POA at this time. I answered all his questions and explained him the patient is currently in respiratory failure with failure to wean requiring re- intubation x2, congestive Heart Care earlier, gangrene of right foot requiring amputation, sepsis, UTI, dysphagia and he will need trach and PEG. They understand and agree with patient's wishes to proceed with trach and PEG at this time. He was hoping the patient can go to a facility close to where he lives. Critical Care Time Spent: 32 minutes Due to a high probability of clinically significant, life threatening deterioration, the patient required my highest level of preparedness to intervene emergently and I personally spent this critical care time directly and personally managing the patient. This critical care time included obtaining a history; examining the patient; pulse oximetry; ordering and review of studies; arranging urgent treatment with development of a management plan; evaluation of patient's response to treatment; frequent reassessment; and discussions with other providers. It was exclusive of separately billable procedures and treating other patients and teaching time. Please see Assessment and Plan section and the rest of the note for further information on patient assessment and treatment This dictation may have been done utilizing a voice recognition system. Attempts have been made to correct errors. However, there may be uncorrected grammatical, spelling, and recognitions errors present. Subjective Date/time seen: 03/29/24 10:42 Interval history: 03/29/2024: Patient seen and examined the ICU. Remains intubated on CMV mode of ventilation, FiO2 of 40% and PEEP of 8. Sedated with fentanyl and Versed infusion. Patient does not open his eyes or follow commands, does withdraw to pain in all extremities. Urine output has been adequate in response to diuretics, patient is afebrile. Remains on Levophed. Patient has had been having some blood from his mouth as well as his PEG tube. Therapeutic Lovenox has been discontinued. Hemoglobin is 7.0 this morning Review of Systems Review of Systems: All systems reviewed & are unremarkable except as noted in HPI and below (HPI) ROS unobtainable: Yes unobtainable due to endotracheal tube, unobtainable due to medical condition and unobtainable due to mental status Exam Narrative: General: Patient intubated sedated and in no acute distress HEENT:, pupils are equal and reactive from a sclera is clear, there is a gauze in the mouth with blood on it. Neck:? supple Respiratory:? Coarse breath sounds bilaterally, decreased at bases, adequate air entry, no wheezing Cardiac:? S1-S2 normal, regular rate and rhythm Abdomen:? Soft, nontender, nondistended, bowel sounds are hypoactive, PEG tube in place Extremities:? Right BKA stump, covered with Tobi wrap. Left dorsalis pedis is dopplerable Neuro:? Patient is sedated, does not open his eyes or follow simple commands, withdraws to pain Skin:? Patient has maceration of his perianal area, pressure ulcer on his buttocks. Psych:? Unable to assess at this time Objective Data Vital Signs Vital Signs: Vital Signs - 24 hr 03/28/24 10:56 03/28/24 12:00 03/28/24 12:00 Temperature 98.7 F Pulse Rate 96 98 Respiratory Rate 16 Blood Pressure 89/39 L 104/46 L Pulse Oximetry 98 Oxygen Delivery Fraction of Inspired Oxygen 40 03/28/24 12:00 03/28/24 12:00 03/28/24 12:31 Temperature Pulse Rate 85 85 85 Respiratory Rate 16 16 Blood Pressure 96/49 L Pulse Oximetry Oxygen Delivery Fraction of Inspired Oxygen 03/28/24 12:37 03/28/24 12:37 03/28/24 12:00 Temperature Pulse Rate 87 87 Respiratory Rate 16 16 Blood Pressure Pulse Oximetry Oxygen Delivery Mechanical Ventilation Fraction of Inspired Oxygen 40 03/28/24 12:00 03/28/24 13:15 03/28/24 13:15 Temperature Pulse Rate 94 82 82 Respiratory Rate 18 Blood Pressure Pulse Oximetry 99 Oxygen Delivery Mechanical Ventilation Fraction of Inspired Oxygen 40 03/28/24 13:25 03/28/24 13:55 03/28/24 14:00 Temperature Pulse Rate 82 82 94 Respiratory Rate 16 16 Blood Pressure 111/52 L Pulse Oximetry Oxygen Delivery Fraction of Inspired Oxygen 03/28/24 14:00 03/28/24 14:18 03/28/24 14:00 Temperature 99.0 F Pulse Rate 94 90 82 Respiratory Rate 16 16 Blood Pressure 120/61 103/50 L Pulse Oximetry 99 Oxygen Delivery Fraction of Inspired Oxygen 03/28/24 14:00 03/28/24 14:51 03/28/24 16:02 Temperature Pulse Rate 99 99 90 Respiratory Rate Blood Pressure 109/55 L Pulse Oximetry 98 Oxygen Delivery Mechanical Ventilation Fraction of Inspired Oxygen 40 03/28/24 16:00 03/28/24 16:00 03/28/24 16:00 Temperature Pulse Rate 88 Respiratory Rate Blood Pressure Pulse Oximetry Oxygen Delivery Mechanical Ventilation Fraction of Inspired Oxygen 40 40 03/28/24 16:00 03/28/24 16:00 03/28/24 16:00 Temperature 98.7 F Pulse Rate 86 86 86 Respiratory Rate 16 16 16 Blood Pressure 96/47 L Pulse Oximetry 97 Oxygen Delivery Fraction of Inspired Oxygen 03/28/24 16:00 03/28/24 18:00 03/28/24 18:00 Temperature 98.9 F Pulse Rate 86 85 85 Respiratory Rate 16 Blood Pressure 96/47 L 102/50 L Pulse Oximetry 97 Oxygen Delivery Fraction of Inspired Oxygen 03/28/24 18:00 03/28/24 18:00 03/28/24 18:00 Temperature Pulse Rate 85 85 85 Respiratory Rate 16 16 Blood Pressure 102/50 L Pulse Oximetry Oxygen Delivery Fraction of Inspired Oxygen 03/28/24 20:00 03/28/24 20:00 03/28/24 20:00 Temperature 99.2 F Pulse Rate 85 85 85 Respiratory Rate 16 16 Blood Pressure 100/49 L 100/49 L Pulse Oximetry 97 Oxygen Delivery Fraction of Inspired Oxygen 03/28/24 20:00 03/28/24 20:00 03/28/24 20:00 Temperature Pulse Rate 85 85 84 Respiratory Rate 16 16 Blood Pressure Pulse Oximetry 98 Oxygen Delivery Mechanical Ventilation Fraction of Inspired Oxygen 40 03/28/24 20:00 03/28/24 20:18 03/28/24 20:18 Temperature Pulse Rate 90 90 Respiratory Rate 16 Blood Pressure Pulse Oximetry 98 Oxygen Delivery Mechanical Ventilation Fraction of Inspired Oxygen 40 40 03/28/24 20:38 03/28/24 22:00 03/28/24 22:00 Temperature 99.3 F Pulse Rate 91 82 82 Respiratory Rate 16 16 Blood Pressure 103/49 L Pulse Oximetry 96 Oxygen Delivery Fraction of Inspired Oxygen 03/28/24 22:00 03/28/24 22:00 03/28/24 22:00 Temperature Pulse Rate 82 82 82 Respiratory Rate 16 16 Blood Pressure 103/49 L Pulse Oximetry Oxygen Delivery Fraction of Inspired Oxygen 03/29/24 00:00 03/29/24 00:00 03/29/24 00:00 Temperature Pulse Rate 90 90 90 Respiratory Rate 16 16 Blood Pressure 118/54 L Pulse Oximetry Oxygen Delivery Fraction of Inspired Oxygen 03/29/24 00:00 03/29/24 00:00 03/29/24 00:00 Temperature 99.4 F Pulse Rate 90 90 Respiratory Rate 16 16 Blood Pressure 118/54 L Pulse Oximetry 93 98 Oxygen Delivery Mechanical Ventilation Fraction of Inspired Oxygen 40 40 03/28/24 23:13 03/29/24 00:00 03/29/24 02:00 Temperature Pulse Rate 83 85 93 Respiratory Rate 16 Blood Pressure 108/50 L Pulse Oximetry 95 93 Oxygen Delivery Mechanical Ventilation Fraction of Inspired Oxygen 40 03/29/24 02:00 03/29/24 02:00 03/29/24 02:00 Temperature Pulse Rate 93 93 93 Respiratory Rate 16 Blood Pressure 108/50 L Pulse Oximetry Oxygen Delivery Fraction of Inspired Oxygen 03/29/24 02:00 03/29/24 02:12 03/29/24 02:12 Temperature Pulse Rate 93 89 89 Respiratory Rate 16 16 Blood Pressure Pulse Oximetry 93 Oxygen Delivery Mechanical Ventilation Fraction of Inspired Oxygen 40 03/29/24 02:25 03/29/24 04:49 03/29/24 04:00 Temperature 99.5 F Pulse Rate 88 91 83 Respiratory Rate 16 16 Blood Pressure 102/50 L Pulse Oximetry 93 93 Oxygen Delivery Mechanical Ventilation Fraction of Inspired Oxygen 40 03/29/24 04:00 03/29/24 04:00 03/29/24 04:00 Temperature Pulse Rate 83 83 83 Respiratory Rate 16 16 Blood Pressure 102/50 L Pulse Oximetry Oxygen Delivery Fraction of Inspired Oxygen 03/29/24 04:00 03/29/24 04:00 03/29/24 06:00 Temperature 99.6 F Pulse Rate 83 109 H Respiratory Rate 16 16 Blood Pressure 121/59 L Pulse Oximetry 98 96 Oxygen Delivery Mechanical Ventilation Fraction of Inspired Oxygen 40 40 03/29/24 06:00 03/29/24 06:00 03/29/24 06:00 Temperature Pulse Rate 109 H 109 H 109 H Respiratory Rate 16 16 Blood Pressure 121/59 L Pulse Oximetry Oxygen Delivery Fraction of Inspired Oxygen 03/29/24 04:00 03/29/24 06:00 03/29/24 08:00 Temperature Pulse Rate 82 93 Respiratory Rate Blood Pressure Pulse Oximetry Oxygen Delivery Fraction of Inspired Oxygen 40 03/29/24 07:00 03/29/24 07:01 03/29/24 07:15 Temperature 99.1 F 99.1 F 99.1 F Pulse Rate 95 92 89 Respiratory Rate 16 16 16 Blood Pressure 106/50 L 107/50 L Pulse Oximetry 97 98 98 Oxygen Delivery Fraction of Inspired Oxygen 03/29/24 07:16 03/29/24 07:30 03/29/24 07:31 Temperature 99.1 F 99.1 F 99.1 F Pulse Rate 90 85 85 Respiratory Rate 16 16 16 Blood Pressure 103/50 L Pulse Oximetry 98 98 98 Oxygen Delivery Fraction of Inspired Oxygen 03/29/24 07:45 03/29/24 07:46 03/29/24 08:00 Temperature 99.1 F 99.1 F 99.1 F Pulse Rate 91 91 90 Respiratory Rate 17 16 16 Blood Pressure 114/54 L 105/50 L Pulse Oximetry 98 97 96 Oxygen Delivery Fraction of Inspired Oxygen 03/29/24 08:01 03/29/24 08:15 03/29/24 08:16 Temperature 99.1 F 99.1 F 99.1 F Pulse Rate 90 103 H 106 H Respiratory Rate 16 16 16 Blood Pressure 128/68 Pulse Oximetry 97 98 98 Oxygen Delivery Fraction of Inspired Oxygen 03/29/24 08:30 03/29/24 08:00 03/29/24 08:00 Temperature 99.1 F Pulse Rate 101 H 98 98 Respiratory Rate 16 16 Blood Pressure 105/50 L Pulse Oximetry 97 Oxygen Delivery Fraction of Inspired Oxygen 03/29/24 08:00 03/29/24 07:20 03/29/24 07:20 Temperature Pulse Rate 98 97 97 Respiratory Rate 16 16 Blood Pressure Pulse Oximetry 98 Oxygen Delivery Mechanical Ventilation Fraction of Inspired Oxygen 40 03/29/24 10:15 03/29/24 10:27 03/29/24 10:28 Temperature 99.2 F Pulse Rate 102 H 100 100 Respiratory Rate 16 16 Blood Pressure 102/65 102/53 L Pulse Oximetry 97 Oxygen Delivery Fraction of Inspired Oxygen 03/29/24 10:31 03/29/24 10:30 Temperature 99.3 F Pulse Rate 100 100 Respiratory Rate 16 16 Blood Pressure 95/52 L Pulse Oximetry 97 Oxygen Delivery Fraction of Inspired Oxygen Intake/Output Intake/Output: Intake & Output 03/26/24 03/27/24 03/28/24 03/29/24 23:59 23:59 23:59 23:59 Intake Total 2508.2 956.2 1165.2 807.5 Output Total 975 174 4935 475 Balance 1858.2 156.2 -984.8 332.5 Meds/Results Medications: Active Medications Generic Name Dose Route Start Last Admin Trade Name Freq PRN Reason Stop Dose Admin Acetaminophen 650 mg 03/25/24 12:39 03/27/24 15:48 Acetaminophen Elixir 325 Mg/10.15 Ml Udc PO 650 mg Q4H PRN Administration Mild Pain (1-3) or Fever Albuterol/Ipratropium 3 ml 02/29/24 02:00 03/29/24 07:36 Ipratropium 0.5 Mg/Albuterol Sulfate 2.5 Mg Ampul.Neb 3 Ml INHALATION 3 ml Q6HRT JASON Administration Alteplase, Recombinant 2 mg 03/06/24 09:45 03/22/24 16:56 Alteplase 2 Mg Vial (Cathflo) IV PUSH 2 mg ONCE PRN Administration Line Occlusion Aspirin 81 mg 03/09/24 08:00 03/29/24 09:08 Aspirin 81 Mg Chewable Tablet FEED TUBE 81 mg DAILY@0800 [facility] Administration Bisacodyl 10 mg 03/24/24 07:31 03/24/24 16:04 Bisacodyl 10 Mg Suppository RECTAL 10 mg QAM PRN Administration Constipation Dextrose 12.5 gm 02/28/24 19:23 Dextrose 50% 25 Gm/50 Ml Syringe IV PUSH PRN PRN Hypoglycemia Protocol Glucagon 1 mg 02/28/24 19:23 Glucagon For Inj 1 Mg Vial IM PRN PRN Hypoglycemia Protocol Glucose 15 gm 03/08/24 10:19 Glucose Oral Gel 15 Gm Of Glucse In 37.5 Gm Tube FEED TUBE PRN PRN Hypoglycemia Protocol Dextrose 1,000 mls @ 100 mls/hr 02/28/24 19:23 Dextrose 5% 1,000 Ml IVPB PRN PRN Hypoglycemia Protocol Sodium Chloride 250 mls @ 30 mls/hr 03/29/24 07:40 03/29/24 10:36 Normal Saline Iv IV CONT 03/29/24 15:59 30 mls/hr .Q8H20M STA Administration Insulin Aspart 3 - 6 units 03/15/24 17:00 03/29/24 09:08 Insulin Aspart (*Bkc) 100 Units/Ml SUB-Q Not Given Q4HR JASON Protocol Insulin Glargine 55 units 03/15/24 09:00 03/16/24 10:44 Insulin Glargine (*Bkc) 100 Units/Ml SUB-Q 55 units DAILY JASON Administration Labetalol HCl 20 mg 03/08/24 10:06 03/08/24 16:48 Labetalol Hcl Inj 100 Mg/20 Ml Vial IV PUSH 20 mg Q4H PRN Administration SBP > 160 and HR> 60 -1st choice Metoclopramide HCl 10 mg 03/27/24 12:00 03/29/24 05:01 Metoclopramide Hcl Inj 10 Mg/2 Ml Vial IV PUSH 10 mg Q6HR JASON Administration Morphine Sulfate 2 mg 03/19/24 19:39 03/21/24 20:36 Morphine Sulfate (*Crx) 2 Mg/Ml Inj IV PUSH 2 mg Q2HR PRN Administration Pain Rated 7-10 Multi-Ingred Cream/Lotion/Oil/Oint 1 applic 03/22/24 21:00 03/29/24 09:08 Mineral Oil/White Petrolatum Ointment EACH EYE 1 applic Q12HR JASON Administration Pantoprazole Sodium 40 mg 03/02/24 09:00 11/16/24 09:08 Pantoprazole Sodium Iv 40 Mg Vial IV PUSH 40 mg Q12HR JASON Administration Polyethylene Glycol 17 gm 03/24/24 09:00 03/29/24 09:08 Polyethylene Glycol 3350 17 Gm Powd.Pack PO 17 gm QAM JASON Administration Sodium Chloride 20 ml 02/28/24 23:37 Central Line Flush IV PUSH PRN PRN after blood draws Sodium Chloride 20 ml 03/21/24 08:57 Central Line Flush IV PUSH PRN PRN after blood draws Sodium Chloride 10 ml 03/21/24 08:57 Central Line Flush IV PUSH PRN PRN with TPN bag changes Sodium Chloride 10 ml 03/21/24 14:00 03/29/24 06:17 Central Line Flush IV PUSH 10 ml Q8HR JASON Administration Radiology Results: ITS Impressions Lower Extremity CTA 02/28/24 14:54 IMPRESSION: 1. 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 2. Moderate stenosis of right popliteal artery. 3. Osteomyelitis involving first proximal and distal phalanges and head of first metatarsal. Head CT 02/29/24 05:55 Impression: No intracranial hemorrhage, mass, or acute infarct. Stable chronic encephalomalacia in the high left parietal lobe. Atrophy and chronic white matter changes, as above. Chest/Abdomen/Pelvis CTA 02/29/24 06:02 Impression: Extensive right upper lobe consolidation and more mild right middle lobe consolidation, consistent with pneumonia. Consider aspiration pneumonia. Moderate to large right pleural effusion with complete atelectasis of the right lower lobe. Moderate left pleural effusion with minimal left basilar atelectasis. Small pericardial effusion. No definite acute abnormality in the abdomen or pelvis. Chronic compression fractures, as above. Renal Ultrasound 03/03/24 15:45 IMPRESSION: 1. Normal kidneys without hydronephrosis. 2. Small amount of ascites in the abdomen and pelvis. Abdomen Ultrasound 03/13/24 16:52 IMPRESSION: 1. No etiology for abnormal liver function tests. 2. Normal hepatic veins and main portal vein. Right and left portal veins and proper hepatic artery not evaluated. 3. Right pleural effusion. Vascular Ultrasound 03/13/24 16:52 IMPRESSION: 1. No etiology for abnormal liver function tests. 2. Normal hepatic veins and main portal vein. Right and left portal veins and proper hepatic artery not evaluated. 3. Right pleural effusion. Chest/Abdomen/Pelvis CT 03/16/24 21:51 IMPRESSION: Anasarca Large pleural effusions with prominent compressive atelectasis of the lower lobes especially, dependent atelectasis of the middle and upper lobes Heart size. Prominent coronary artery atherosclerotic calcifications Minimal pericardial effusion Prominent diffuse thickening of urinary bladder wall suggesting cystitis area Ha catheter in bladder lumen Very prominent amount of fluid and large fluid level within the stomach despite presence of NG tube T11 and L1 moderate anterior wedge compression fractures, likely chronic Thoracentesis Ultrasound 03/18/24 10:27 IMPRESSION: 1. Successful ultrasound-guided thoracentesis yielding 550 mL of doris-colored fluid. Modified Barium Swallow 03/21/24 15:25 IMPRESSION: 1. Aspiration of thin liquids and pudding. 2. Please refer to the speech therapy report for recommendations. Tube Placement 03/22/24 11:33 IMPRESSION: 1. Fluoroscopy guided nasoenteric tube placement with tip in the stomach. Abdomen X-Ray 03/22/24 12:47 IMPRESSION: 1. Nasogastric tube tip in the stomach. 2. Nasoenteric tube tip in the stomach. Venous Doppler Study 03/22/24 16:38 IMPRESSION: Nonocclusive right subclavian vein thrombus. No additional deep venous thrombosis detected in the remaining bilateral upper extremity veins. Chest X-Ray 03/29/24 06:09 IMPRESSION: 1. Stable airspace opacities in the mid and lower lung zones, consistent with atelectasis versus pneumonia. 2. Stable moderate-sized pleural effusions. Labs Labs: Laboratory Results - last 24 hr 03/28/24 03/28/24 03/28/24 12:24 12:25 17:25 WBC 6.8 RBC 2.56 L Hgb 7.2 L Hct 24.4 L MCV 95.3 MCH 28.1 MCHC 29.5 L RDW 18.4 H Plt Count 176 MPV 10.2 Immature Gran % (Auto) 1.0 H Neut % (Auto) 60.1 Lymph % (Auto) 25.7 [place] % (Auto) 8.6 H Eos % (Auto) 4.5 H Baso % (Auto) 0.1 L Lymph # (Auto) 1.76 [place] # (Auto) 0.6 Eos # (Auto) 0.3 Baso # (Auto) 0.0 Abs Immat Gran (auto) 0.07 H Absolute Neuts (auto) 4.1 Absolute Nucleated RBC 0.000 Nucleated RBC % 0.0 Smudge Cells Platelet Estimate Hypochromasia Anisocytosis Microcytosis Schistocytes PT INR APTT Puncture Site ABG pH ABG pCO2 ABG pO2 ABG PO2/FiO2 Ratio ABG HCO3 ABG O2 Saturation ABG O2 Content ABG Base Excess A-a Gradient Oxyhemoglobin Carboxyhemoglobin Methemoglobin Reduced Hemoglobin Total Hemoglobin O2 Delivery Device O2 Liters/Min Minute Volume Vent Rate Vent Mode FiO2 Tidal Volume PEEP Peak Inspir Pressure Pressure Support Sodium Potassium Chloride Carbon Dioxide Anion Gap BUN Creatinine Estim Creat Clear Calc Estimated GFR Glucose POC Capillary Glucose 171 H 161 H Lactic Acid Calcium Phosphorus Magnesium Total Bilirubin AST ALT Alkaline Phosphatase Total Protein Albumin Blood Type Antibody Screen Crossmatch 03/28/24 03/28/24 03/29/24 20:29 23:51 04:36 WBC 6.4 RBC 2.48 L Hgb 7.0 L Hct 23.5 L MCV 94.8 MCH 28.2 MCHC 29.8 L RDW 18.5 H Plt Count 165 MPV 10.4 Immature Gran % (Auto) 1.1 H Neut % (Auto) 60.2 Lymph % (Auto) 24.9 [place] % (Auto) 9.0 H Eos % (Auto) 4.5 H Baso % (Auto) 0.3 Lymph # (Auto) 1.60 [place] # (Auto) 0.6 Eos # (Auto) 0.3 Baso # (Auto) 0.0 Abs Immat Gran (auto) 0.07 H Absolute Neuts (auto) 3.9 Absolute Nucleated RBC 0.000 Nucleated RBC % 0.0 Smudge Cells Present Platelet Estimate Decreased Hypochromasia 1+ Anisocytosis 1+ Microcytosis 1+ Schistocytes None seen PT INR APTT Puncture Site ABG pH ABG pCO2 ABG pO2 ABG PO2/FiO2 Ratio ABG HCO3 ABG O2 Saturation ABG O2 Content ABG Base Excess A-a Gradient Oxyhemoglobin Carboxyhemoglobin Methemoglobin Reduced Hemoglobin Total Hemoglobin O2 Delivery Device O2 Liters/Min Minute Volume Vent Rate Vent Mode FiO2 Tidal Volume PEEP Peak Inspir Pressure Pressure Support Sodium 142 Potassium 3.9 Chloride 106 Carbon Dioxide 32 H Anion Gap 4 BUN 32 H Creatinine 0.80 Estim Creat Clear Calc 79 Estimated GFR > 60 Glucose 190 H POC Capillary Glucose 204 H 173 H Lactic Acid 0.9 Calcium 7.9 L Phosphorus 3.1 Magnesium 2.1 Total Bilirubin 0.4 AST 22 ALT 16 Alkaline Phosphatase 96 Total Protein 6.0 L Albumin 2.5 L Blood Type Antibody Screen Crossmatch 03/29/24 03/29/24 03/29/24 04:39 08:15 08:25 WBC RBC Hgb Hct MCV MCH MCHC RDW Plt Count MPV Immature Gran % (Auto) Neut % (Auto) Lymph % (Auto) [place] % (Auto) Eos % (Auto) Baso % (Auto) Lymph # (Auto) [place] # (Auto) Eos # (Auto) Baso # (Auto) Abs Immat Gran (auto) Absolute Neuts (auto) Absolute Nucleated RBC Nucleated RBC % Smudge Cells Platelet Estimate Hypochromasia Anisocytosis Microcytosis Schistocytes PT 14.9 H INR 1.1 APTT 44.0 H Puncture Site Right radial ABG pH 7.499 H ABG pCO2 38.2 ABG pO2 115.6 H ABG PO2/FiO2 Ratio 2.89 ABG HCO3 29.1 H ABG O2 Saturation 98.5 ABG O2 Content 11.0 L ABG Base Excess 5.5 A-a Gradient 125.7 Oxyhemoglobin 97.8 Carboxyhemoglobin 1.0 Methemoglobin 0.1 Reduced Hemoglobin 1.1 Total Hemoglobin 7.8 L* O2 Delivery Device Ventilator O2 Liters/Min Not Reportable Minute Volume Not Reportable Vent Rate 16 Vent Mode Cmv FiO2 40 Tidal Volume 380 PEEP 8 Peak Inspir Pressure Not Reportable Pressure Support Not Reportable Sodium Potassium Chloride Carbon Dioxide Anion Gap BUN Creatinine Estim Creat Clear Calc Estimated GFR Glucose POC Capillary Glucose 183 H Lactic Acid Calcium Phosphorus Magnesium Total Bilirubin AST ALT Alkaline Phosphatase Total Protein Albumin Blood Type O Positive Antibody Screen Negative Crossmatch See Detail Quality VTE Prophylaxis VTE prophylaxis: pharmacologic ordered
[2024-03-29 11:48] LABS: Glucose Point of Care 202 mg/dl (65-105)
[2024-03-29] MEDS: INSULIN ASPART (*BKC) 100 UNITS/ML SUB-Q ×3 (11:56→20:41)
--- NOTE | 2024-03-29 13:10 | WPDGIPROGNO ---
Progress Note: A&P Assessment and Plan (1) PEG (percutaneous endoscopic gastrostomy) status: Code(s): Z93.1 - Gastrostomy status Status: Acute Assessment and Plan: No evidence of GI bleeding. Fluctuations on hemoglobin multifactorial, probably dilutional element or problems related to his overall critical care status. Will be glad to reassess if there is objective evidence of GI bleed , i.e coffee grounds, hematemesis and/or melena. Time Spent With Patient Time with patient: less than 15 minutes Subjective Date/time seen: 03/29/24 13:10 Interval history: Called because of some minor drop in Hemoglobin, in the abscence of melena, hematochezia or evidence of coffee ground material from feeding tube. Review of Systems Review of Systems: All systems reviewed & are unremarkable except as noted in HPI and below Exam Narrative: Removed feedings and instilled 150 cc of normal saline through the G tube. When suctioned back, obtained clear liquid, the color of trhe tube feedings. No coffee grounds or blood. Objective Data Vital Signs Vital Signs: Vital Signs - 24 hr 03/28/24 13:15 03/28/24 13:15 03/28/24 13:25 Temperature Pulse Rate 82 82 82 Respiratory Rate 18 16 Blood Pressure Pulse Oximetry 99 Oxygen Delivery Mechanical Ventilation Fraction of Inspired Oxygen 40 03/28/24 13:55 03/28/24 14:00 03/28/24 14:00 Temperature Pulse Rate 82 94 94 Respiratory Rate 16 16 Blood Pressure 111/52 L Pulse Oximetry Oxygen Delivery Fraction of Inspired Oxygen 03/28/24 14:18 03/28/24 14:00 03/28/24 14:00 Temperature 99.0 F Pulse Rate 90 82 99 Respiratory Rate 16 Blood Pressure 120/61 103/50 L Pulse Oximetry 99 Oxygen Delivery Fraction of Inspired Oxygen 03/28/24 14:51 03/28/24 16:02 03/28/24 16:00 Temperature Pulse Rate 99 90 Respiratory Rate Blood Pressure 109/55 L Pulse Oximetry 98 Oxygen Delivery Mechanical Ventilation Mechanical Ventilation Fraction of Inspired Oxygen 40 40 03/28/24 16:00 03/28/24 16:00 03/28/24 16:00 Temperature 98.7 F Pulse Rate 88 86 Respiratory Rate 16 Blood Pressure 96/47 L Pulse Oximetry 97 Oxygen Delivery Fraction of Inspired Oxygen 40 03/28/24 16:00 03/28/24 16:00 03/28/24 16:00 Temperature Pulse Rate 86 86 86 Respiratory Rate 16 16 Blood Pressure 96/47 L Pulse Oximetry Oxygen Delivery Fraction of Inspired Oxygen 03/28/24 18:00 03/28/24 18:00 03/28/24 18:00 Temperature 98.9 F Pulse Rate 85 85 85 Respiratory Rate 16 16 Blood Pressure 102/50 L Pulse Oximetry 97 Oxygen Delivery Fraction of Inspired Oxygen 03/28/24 18:00 03/28/24 18:00 03/28/24 20:00 Temperature 99.2 F Pulse Rate 85 85 85 Respiratory Rate 16 16 Blood Pressure 102/50 L 100/49 L Pulse Oximetry 97 Oxygen Delivery Fraction of Inspired Oxygen 03/28/24 20:00 03/28/24 20:00 03/28/24 20:00 Temperature Pulse Rate 85 85 85 Respiratory Rate 16 16 Blood Pressure 100/49 L Pulse Oximetry Oxygen Delivery Fraction of Inspired Oxygen 03/28/24 20:00 03/28/24 20:00 03/28/24 20:00 Temperature Pulse Rate 85 84 Respiratory Rate 16 Blood Pressure Pulse Oximetry 98 Oxygen Delivery Mechanical Ventilation Fraction of Inspired Oxygen 40 40 03/28/24 20:18 03/28/24 20:18 03/28/24 20:38 Temperature Pulse Rate 90 90 91 Respiratory Rate 16 16 Blood Pressure Pulse Oximetry 98 Oxygen Delivery Mechanical Ventilation Fraction of Inspired Oxygen 40 03/28/24 22:00 03/28/24 22:00 03/28/24 22:00 Temperature 99.3 F Pulse Rate 82 82 82 Respiratory Rate 16 16 Blood Pressure 103/49 L Pulse Oximetry 96 Oxygen Delivery Fraction of Inspired Oxygen 03/28/24 22:00 03/28/24 22:00 03/29/24 00:00 Temperature Pulse Rate 82 82 90 Respiratory Rate 16 Blood Pressure 103/49 L 118/54 L Pulse Oximetry Oxygen Delivery Fraction of Inspired Oxygen 03/29/24 00:00 03/29/24 00:00 03/29/24 00:00 Temperature 99.4 F Pulse Rate 90 90 90 Respiratory Rate 16 16 16 Blood Pressure 118/54 L Pulse Oximetry 93 Oxygen Delivery Fraction of Inspired Oxygen 03/29/24 00:00 03/29/24 00:00 03/28/24 23:13 Temperature Pulse Rate 90 83 Respiratory Rate 16 Blood Pressure Pulse Oximetry 98 95 Oxygen Delivery Mechanical Ventilation Mechanical Ventilation Fraction of Inspired Oxygen 40 40 40 03/29/24 00:00 03/29/24 02:00 03/29/24 02:00 Temperature Pulse Rate 85 93 93 Respiratory Rate 16 Blood Pressure 108/50 L Pulse Oximetry 93 Oxygen Delivery Fraction of Inspired Oxygen 03/29/24 02:00 03/29/24 02:00 03/29/24 02:00 Temperature Pulse Rate 93 93 93 Respiratory Rate 16 16 Blood Pressure 108/50 L Pulse Oximetry Oxygen Delivery Fraction of Inspired Oxygen 03/29/24 02:12 03/29/24 02:12 03/29/24 02:25 Temperature Pulse Rate 89 89 88 Respiratory Rate 16 16 Blood Pressure Pulse Oximetry 93 Oxygen Delivery Mechanical Ventilation Fraction of Inspired Oxygen 40 03/29/24 04:49 03/29/24 04:00 03/29/24 04:00 Temperature 99.5 F Pulse Rate 91 83 83 Respiratory Rate 16 Blood Pressure 102/50 L 102/50 L Pulse Oximetry 93 93 Oxygen Delivery Mechanical Ventilation Fraction of Inspired Oxygen 40 03/29/24 04:00 03/29/24 04:00 03/29/24 04:00 Temperature Pulse Rate 83 83 83 Respiratory Rate 16 16 16 Blood Pressure Pulse Oximetry 98 Oxygen Delivery Mechanical Ventilation Fraction of Inspired Oxygen 40 03/29/24 04:00 03/29/24 06:00 03/29/24 06:00 Temperature 99.6 F Pulse Rate 109 H 109 H Respiratory Rate 16 Blood Pressure 121/59 L 121/59 L Pulse Oximetry 96 Oxygen Delivery Fraction of Inspired Oxygen 40 03/29/24 06:00 03/29/24 06:00 03/29/24 04:00 Temperature Pulse Rate 109 H 109 H 82 Respiratory Rate 16 16 Blood Pressure Pulse Oximetry Oxygen Delivery Fraction of Inspired Oxygen 03/29/24 06:00 03/29/24 08:00 03/29/24 07:00 Temperature 99.1 F Pulse Rate 93 95 Respiratory Rate 16 Blood Pressure 106/50 L Pulse Oximetry 97 Oxygen Delivery Fraction of Inspired Oxygen 40 03/29/24 07:01 03/29/24 07:15 03/29/24 07:16 Temperature 99.1 F 99.1 F 99.1 F Pulse Rate 92 89 90 Respiratory Rate 16 16 16 Blood Pressure 107/50 L Pulse Oximetry 98 98 98 Oxygen Delivery Fraction of Inspired Oxygen 03/29/24 07:30 03/29/24 07:31 03/29/24 07:45 Temperature 99.1 F 99.1 F 99.1 F Pulse Rate 85 85 91 Respiratory Rate 16 16 17 Blood Pressure 103/50 L 114/54 L Pulse Oximetry 98 98 98 Oxygen Delivery Fraction of Inspired Oxygen 03/29/24 07:46 03/29/24 08:00 03/29/24 08:01 Temperature 99.1 F 99.1 F 99.1 F Pulse Rate 91 90 90 Respiratory Rate 16 16 16 Blood Pressure 105/50 L Pulse Oximetry 97 96 97 Oxygen Delivery Fraction of Inspired Oxygen 03/29/24 08:15 03/29/24 08:16 03/29/24 08:30 Temperature 99.1 F 99.1 F 99.1 F Pulse Rate 103 H 106 H 101 H Respiratory Rate 16 16 16 Blood Pressure 128/68 Pulse Oximetry 98 98 97 Oxygen Delivery Fraction of Inspired Oxygen 03/29/24 08:00 03/29/24 08:00 03/29/24 08:00 Temperature Pulse Rate 98 98 98 Respiratory Rate 16 16 Blood Pressure 105/50 L Pulse Oximetry Oxygen Delivery Fraction of Inspired Oxygen 03/29/24 07:20 03/29/24 07:20 03/29/24 10:15 Temperature 99.2 F Pulse Rate 97 97 102 H Respiratory Rate 16 16 Blood Pressure 102/65 Pulse Oximetry 98 97 Oxygen Delivery Mechanical Ventilation Fraction of Inspired Oxygen 40 03/29/24 10:27 03/29/24 10:28 03/29/24 10:31 Temperature Pulse Rate 100 100 100 Respiratory Rate 16 16 Blood Pressure 102/53 L Pulse Oximetry Oxygen Delivery Fraction of Inspired Oxygen 03/29/24 10:30 03/29/24 10:48 03/29/24 08:00 Temperature 99.3 F Pulse Rate 100 100 Respiratory Rate 16 Blood Pressure 95/52 L Pulse Oximetry 97 97 Oxygen Delivery Mechanical Ventilation Mechanical Ventilation Fraction of Inspired Oxygen 40 40 03/29/24 11:30 03/29/24 08:31 03/29/24 08:45 Temperature 99.3 F 99.1 F 99.2 F Pulse Rate 95 102 H 97 Respiratory Rate 16 16 16 Blood Pressure 94/54 L 108/50 L Pulse Oximetry 97 97 97 Oxygen Delivery Fraction of Inspired Oxygen 03/29/24 08:46 03/29/24 09:00 03/29/24 09:28 Temperature 99.2 F 99.1 F 99.1 F Pulse Rate 97 92 101 H Respiratory Rate 16 17 16 Blood Pressure 104/53 L Pulse Oximetry 96 96 96 Oxygen Delivery Fraction of Inspired Oxygen 03/29/24 09:52 03/29/24 10:04 03/29/24 10:15 Temperature 99.1 F 99.2 F 99.2 F Pulse Rate 96 102 H 102 H Respiratory Rate 16 16 16 Blood Pressure 102/53 L Pulse Oximetry 96 97 96 Oxygen Delivery Fraction of Inspired Oxygen 03/29/24 10:30 03/29/24 11:20 03/29/24 11:32 Temperature 99.3 F 99.3 F 99.3 F Pulse Rate 100 93 94 Respiratory Rate 16 16 16 Blood Pressure 95/52 L 94/54 L Pulse Oximetry 96 97 97 Oxygen Delivery Fraction of Inspired Oxygen 03/29/24 08:00 03/29/24 10:00 03/29/24 12:00 Temperature Pulse Rate 89 101 H 98 Respiratory Rate Blood Pressure Pulse Oximetry Oxygen Delivery Fraction of Inspired Oxygen 03/29/24 12:00 03/29/24 12:00 03/29/24 12:00 Temperature 99 F Pulse Rate 101 H Respiratory Rate 16 Blood Pressure 111/71 Pulse Oximetry 98 Oxygen Delivery Mechanical Ventilation Fraction of Inspired Oxygen 40 40 03/29/24 12:30 Temperature 99.4 F Pulse Rate 97 Respiratory Rate 16 Blood Pressure 95/51 L Pulse Oximetry 97 Oxygen Delivery Fraction of Inspired Oxygen Intake/Output Intake/Output: Intake & Output 03/26/24 03/27/24 03/28/24 03/29/24 23:59 23:59 23:59 23:59 Intake Total 2508.2 956.2 1165.2 807.5 Output Total 378 794 7423 475 Balance 1858.2 156.2 -984.8 332.5 Meds/Results Medications: Active Medications Generic Name Dose Route Start Last Admin Trade Name Freq PRN Reason Stop Dose Admin Acetaminophen 650 mg 03/25/24 12:39 03/27/24 15:48 Acetaminophen Elixir 325 Mg/10.15 Ml Udc PO 650 mg Q4H PRN Administration Mild Pain (1-3) or Fever Albuterol/Ipratropium 3 ml 02/29/24 02:00 03/29/24 07:36 Ipratropium 0.5 Mg/Albuterol Sulfate 2.5 Mg Ampul.Neb 3 Ml INHALATION 3 ml Q6HRT JASON Administration Alteplase, Recombinant 2 mg 03/06/24 09:45 03/22/24 16:56 Alteplase 2 Mg Vial (Cathflo) IV PUSH 2 mg ONCE PRN Administration Line Occlusion Aspirin 81 mg 03/09/24 08:00 03/29/24 09:08 Aspirin 81 Mg Chewable Tablet FEED TUBE 81 mg DAILY@0800 JASON Administration Bisacodyl 10 mg 03/24/24 07:31 03/24/24 16:04 Bisacodyl 10 Mg Suppository RECTAL 10 mg QAM PRN Administration Constipation Dextrose 12.5 gm 02/28/24 19:23 Dextrose 50% 25 Gm/50 Ml Syringe IV PUSH PRN PRN Hypoglycemia Protocol Glucagon 1 mg 02/28/24 19:23 Glucagon For Inj 1 Mg Vial IM PRN PRN Hypoglycemia Protocol Glucose 15 gm 03/08/24 10:19 Glucose Oral Gel 15 Gm Of Glucse In 37.5 Gm Tube FEED TUBE PRN PRN Hypoglycemia Protocol Dextrose 1,000 mls @ 100 mls/hr 02/28/24 19:23 Dextrose 5% 1,000 Ml IVPB PRN PRN Hypoglycemia Protocol Sodium Chloride 250 mls @ 30 mls/hr 03/29/24 07:40 03/29/24 10:36 Normal Saline Iv IV CONT 03/29/24 15:59 30 mls/hr .Q8H20M STA Administration Insulin Aspart 3 - 6 units 03/15/24 17:00 03/29/24 11:56 Insulin Aspart (*Bkc) 100 Units/Ml SUB-Q 3 units Q4HR JASON Administration Protocol Insulin Glargine 55 units 03/15/24 09:00 03/16/24 10:44 Insulin Glargine (*Bkc) 100 Units/Ml SUB-Q 55 units DAILY JASON Administration Labetalol HCl 20 mg 03/08/24 10:06 03/08/24 16:48 Labetalol Hcl Inj 100 Mg/20 Ml Vial IV PUSH 20 mg Q4H PRN Administration SBP > 160 and HR> 60 -1st choice Metoclopramide HCl 10 mg 03/27/24 12:00 03/29/24 11:56 Metoclopramide Hcl Inj 10 Mg/2 Ml Vial IV PUSH 10 mg Q6HR JASON Administration Morphine Sulfate 2 mg 03/19/24 19:39 03/21/24 20:36 Morphine Sulfate (*Crx) 2 Mg/Ml Inj IV PUSH 2 mg Q2HR PRN Administration Pain Rated 7-10 Multi-Ingred Cream/Lotion/Oil/Oint 1 applic 03/22/24 21:00 03/29/24 09:08 Mineral Oil/White Petrolatum Ointment EACH EYE 1 applic Q12HR JASON Administration Pantoprazole Sodium 40 mg 03/02/24 09:00 03/29/24 09:08 Pantoprazole Sodium Iv 40 Mg Vial IV PUSH 40 mg Q12HR JASON Administration Polyethylene Glycol 17 gm 03/24/24 09:00 03/29/24 09:08 Polyethylene Glycol 3350 17 Gm Powd.Pack PO 17 gm QAM JASON Administration Sodium Chloride 20 ml 02/28/24 23:37 Central Line Flush IV PUSH PRN PRN after blood draws Sodium Chloride 20 ml 03/21/24 08:57 Central Line Flush IV PUSH PRN PRN after blood draws Sodium Chloride 10 ml 03/21/24 08:57 Central Line Flush IV PUSH PRN PRN with TPN bag changes Sodium Chloride 10 ml 03/21/24 14:00 03/29/24 06:17 Central Line Flush IV PUSH 10 ml Q8HR JASON Administration Radiology Results: ITS Impressions Lower Extremity CTA 02/28/24 14:54 IMPRESSION: 1. 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 2. Moderate stenosis of right popliteal artery. 3. Osteomyelitis involving first proximal and distal phalanges and head of first metatarsal. Head CT 02/29/24 05:55 Impression: No intracranial hemorrhage, mass, or acute infarct. Stable chronic encephalomalacia in the high left parietal lobe. Atrophy and chronic white matter changes, as above. Chest/Abdomen/Pelvis CTA 02/29/24 06:02 Impression: Extensive right upper lobe consolidation and more mild right middle lobe consolidation, consistent with pneumonia. Consider aspiration pneumonia. Moderate to large right pleural effusion with complete atelectasis of the right lower lobe. Moderate left pleural effusion with minimal left basilar atelectasis. Small pericardial effusion. No definite acute abnormality in the abdomen or pelvis. Chronic compression fractures, as above. Renal Ultrasound 03/03/24 15:45 IMPRESSION: 1. Normal kidneys without hydronephrosis. 2. Small amount of ascites in the abdomen and pelvis. Abdomen Ultrasound 03/13/24 16:52 IMPRESSION: 1. No etiology for abnormal liver function tests. 2. Normal hepatic veins and main portal vein. Right and left portal veins and proper hepatic artery not evaluated. 3. Right pleural effusion. Vascular Ultrasound 03/13/24 16:52 IMPRESSION: 1. No etiology for abnormal liver function tests. 2. Normal hepatic veins and main portal vein. Right and left portal veins and proper hepatic artery not evaluated. 3. Right pleural effusion. Chest/Abdomen/Pelvis CT 03/16/24 21:51 IMPRESSION: Anasarca Large pleural effusions with prominent compressive atelectasis of the lower lobes especially, dependent atelectasis of the middle and upper lobes Heart size. Prominent coronary artery atherosclerotic calcifications Minimal pericardial effusion Prominent diffuse thickening of urinary bladder wall suggesting cystitis area Ha catheter in bladder lumen Very prominent amount of fluid and large fluid level within the stomach despite presence of NG tube T11 and L1 moderate anterior wedge compression fractures, likely chronic Thoracentesis Ultrasound 03/18/24 10:27 IMPRESSION: 1. Successful ultrasound-guided thoracentesis yielding 550 mL of doris-colored fluid. Modified Barium Swallow 03/21/24 15:25 IMPRESSION: 1. Aspiration of thin liquids and pudding. 2. Please refer to the speech therapy report for recommendations. Tube Placement 03/22/24 11:33 IMPRESSION: 1. Fluoroscopy guided nasoenteric tube placement with tip in the stomach. Abdomen X-Ray 03/22/24 12:47 IMPRESSION: 1. Nasogastric tube tip in the stomach. 2. Nasoenteric tube tip in the stomach. Venous Doppler Study 03/22/24 16:38 IMPRESSION: Nonocclusive right subclavian vein thrombus. No additional deep venous thrombosis detected in the remaining bilateral upper extremity veins. Chest X-Ray 03/29/24 06:09 IMPRESSION: 1. Stable airspace opacities in the mid and lower lung zones, consistent with atelectasis versus pneumonia. 2. Stable moderate-sized pleural effusions. Labs Labs: Laboratory Results - last 24 hr 03/28/24 03/28/24 03/28/24 17:25 20:29 23:51 WBC RBC Hgb Hct MCV MCH MCHC RDW Plt Count MPV Immature Gran % (Auto) Neut % (Auto) Lymph % (Auto) [place] % (Auto) Eos % (Auto) Baso % (Auto) Lymph # (Auto) [place] # (Auto) Eos # (Auto) Baso # (Auto) Abs Immat Gran (auto) Absolute Neuts (auto) Absolute Nucleated RBC Nucleated RBC % Smudge Cells Platelet Estimate Hypochromasia Anisocytosis Microcytosis Schistocytes PT INR APTT Puncture Site ABG pH ABG pCO2 ABG pO2 ABG PO2/FiO2 Ratio ABG HCO3 ABG O2 Saturation ABG O2 Content ABG Base Excess A-a Gradient Oxyhemoglobin Carboxyhemoglobin Methemoglobin Reduced Hemoglobin Total Hemoglobin O2 Delivery Device O2 Liters/Min Minute Volume Vent Rate Vent Mode FiO2 Tidal Volume PEEP Peak Inspir Pressure Pressure Support Sodium Potassium Chloride Carbon Dioxide Anion Gap BUN Creatinine Estim Creat Clear Calc Estimated GFR Glucose POC Capillary Glucose 161 H 204 H 173 H Lactic Acid Calcium Phosphorus Magnesium Total Bilirubin AST ALT Alkaline Phosphatase Total Protein Albumin Blood Type Antibody Screen Crossmatch 03/29/24 03/29/24 03/29/24 04:36 04:39 08:15 WBC 6.4 RBC 2.48 L Hgb 7.0 L Hct 23.5 L MCV 94.8 MCH 28.2 MCHC 29.8 L RDW 18.5 H Plt Count 165 MPV 10.4 Immature Gran % (Auto) 1.1 H Neut % (Auto) 60.2 Lymph % (Auto) 24.9 [place]dwell % (Auto) 9.0 H Eos % (Auto) 4.5 H Baso % (Auto) 0.3 Lymph # (Auto) 1.60 [place]dwell # (Auto) 0.6 Eos # (Auto) 0.3 Baso # (Auto) 0.0 Abs Immat Gran (auto) 0.07 H Absolute Neuts (auto) 3.9 Absolute Nucleated RBC 0.000 Nucleated RBC % 0.0 Smudge Cells Present Platelet Estimate Decreased Hypochromasia 1+ Anisocytosis 1+ Microcytosis 1+ Schistocytes None seen PT 14.9 H INR 1.1 APTT 44.0 H Puncture Site Right radial ABG pH 7.499 H ABG pCO2 38.2 ABG pO2 115.6 H ABG PO2/FiO2 Ratio 2.89 ABG HCO3 29.1 H ABG O2 Saturation 98.5 ABG O2 Content 11.0 L ABG Base Excess 5.5 A-a Gradient 125.7 Oxyhemoglobin 97.8 Carboxyhemoglobin 1.0 Methemoglobin 0.1 Reduced Hemoglobin 1.1 Total Hemoglobin 7.8 L* O2 Delivery Device Ventilator O2 Liters/Min Not Reportable Minute Volume Not Reportable Vent Rate 16 Vent Mode Cmv FiO2 40 Tidal Volume 380 PEEP 8 Peak Inspir Pressure Not Reportable Pressure Support Not Reportable Sodium 142 Potassium 3.9 Chloride 106 Carbon Dioxide 32 H Anion Gap 4 BUN 32 H Creatinine 0.80 Estim Creat Clear Calc 79 Estimated GFR > 60 Glucose 190 H POC Capillary Glucose Lactic Acid 0.9 Calcium 7.9 L Phosphorus 3.1 Magnesium 2.1 Total Bilirubin 0.4 AST 22 ALT 16 Alkaline Phosphatase 96 Total Protein 6.0 L Albumin 2.5 L Blood Type O Positive Antibody Screen Negative Crossmatch See Detail 03/29/24 03/29/24 08:25 11:46 WBC RBC Hgb Hct MCV MCH MCHC RDW Plt Count MPV Immature Gran % (Auto) Neut % (Auto) Lymph % (Auto) [place] % (Auto) Eos % (Auto) Baso % (Auto) Lymph # (Auto) [place] # (Auto) Eos # (Auto) Baso # (Auto) Abs Immat Gran (auto) Absolute Neuts (auto) Absolute Nucleated RBC Nucleated RBC % Smudge Cells Platelet Estimate Hypochromasia Anisocytosis Microcytosis Schistocytes PT INR APTT Puncture Site ABG pH ABG pCO2 ABG pO2 ABG PO2/FiO2 Ratio ABG HCO3 ABG O2 Saturation ABG O2 Content ABG Base Excess A-a Gradient Oxyhemoglobin Carboxyhemoglobin Methemoglobin Reduced Hemoglobin Total Hemoglobin O2 Delivery Device O2 Liters/Min Minute Volume Vent Rate Vent Mode FiO2 Tidal Volume PEEP Peak Inspir Pressure Pressure Support Sodium Potassium Chloride Carbon Dioxide Anion Gap BUN Creatinine Estim Creat Clear Calc Estimated GFR Glucose POC Capillary Glucose 183 H 202 H Lactic Acid Calcium Phosphorus Magnesium Total Bilirubin AST ALT Alkaline Phosphatase Total Protein Albumin Blood Type Antibody Screen Crossmatch
[2024-03-29] MEDS: FUROSEMIDE INJ 40 MG/4 ML VIAL IV PUSH (14:11)
[2024-03-29 16:41] LABS: Glucose Point of Care 236 mg/dl (65-105)
[2024-03-29 20:56] LABS: Glucose Point of Care 229 mg/dl (65-105)
[2024-03-29 21:18] LABS: IFOB Positive Control Positive; Immunochemical Fecal Occult Bl Positive (N)
[2024-03-30] VITALS (29 sets, daily range): BP systolic 114–167; BP diastolic 59–86; PULSE 70–122; RESP 16–26; TEMP 37.1–37.7; O2SAT 95–100
[2024-03-30 00:18] LABS: Glucose Point of Care 239 mg/dl (65-105)
[2024-03-30] MEDS: INSULIN ASPART (*BKC) 100 UNITS/ML SUB-Q ×6 (00:22→20:40)
[2024-03-30] MEDS: METOCLOPRAMIDE HCL INJ 10 MG/2 ML VIAL IV PUSH (00:24)
[2024-03-30] MEDS: IPRATROPIUM 0.5 MG/ALBUTEROL SULFATE 2.5 MG AMPUL.NEB 3 ML INHALATION ×4 (02:21→20:40)
[2024-03-30 04:35] LABS: Glucose Point of Care 238 mg/dl (65-105)
[2024-03-30 05:07] LABS: Alveolar/Arterial O2 Gradient 69.1 mmHg; Base Excess ABG 5.9 mEq/l (+/-2.0); Carboxyhemoglobin 0.8 % THb (0-2.0); Fractional Inspired Oxygen 30 %; Methemoglobin ABG 0.1 %THb (0-1.5); Oxygen Content ABG 13.1 %vol (16.0-22.0); Oxygen Saturation ABG 97.7 % (95.0-100.0); Oxyhemoglobin 96.8 % THb (90.0-100.0); PCO2 ABG 41.4 mmHg (35.0-45.0); PO2 ABG 96.2 mmHg (80.0-100.0); PO2 FiO2 Ratio Arterial Blood 3.21 %; Reduced Hemoglobin 2.3 %THb (0-5.0); Total Hemoglobin 9.5 g/dL (12.0-18.0); pH ABG 7.478 (7.350-7.450)
[2024-03-30 05:13] LABS: Arterial Blood Gas Vent Mode CMV; Arterial Blood Gas Ventilator rate 16 /MIN; Device VENTILATOR; Modified Allen's Test Pass; Site Drawn RIGHT RADIAL
[2024-03-30 05:14] LABS: Arterial Blood Gas PEEP 8 cmH2O; Arterial Blood Gas Tidal Volume 380 ml
[2024-03-30] MEDS: CENTRAL LINE FLUSH 10 ML IV PUSH ×3 (06:16→21:31)
[2024-03-30 06:19] LABS: Basophils Percent Auto 0.3 % (0.2-1.2); Eosinophils Absolute Auto 0.3 K/mm3 (0-0.3); Eosinophils Percent Auto 4.4 % (0-4.4); Hemoglobin 8.6 g/dL (14.0-18.0); Immature Granulocyte Absolute 0.08 K/mm3 (0.00-0.031); Immature Granulocyte Percent A 1.4 % (0-0.5); Lymphocytes Absolute Auto 1.33 K/mm3 (0.9-3.2); Lymphocytes Percent Auto 22.5 % (18.3-44.2); Mean Corpuscular HGB Conc 30.7 g/dl (32-36); Mean Corpuscular Hemoglobin 28.5 pg (26-34); Mean Corpuscular Volume 92.7 fl (80-100); Mean Platelet Volume 10.2 fl (7.4-10.4); Monocytes Absolute Auto 0.6 K/mm3 (0.1-0.6); Monocytes Percent Auto 10.3 % (2.6-8.5); Neutrophils Absolute Auto 3.6 K/mm3 (1.3-6.7); Neutrophils Percent Auto 61.1 % (45.5-73.1); Platelet Count Result 146 k/mm3 (150-375); Red Blood Count 3.02 M/mm3 (4.6-6.20); White Blood Count 5.9 K/mm3 (4.5-10.0)
[2024-03-30 06:33] LABS: Ammonia < 9 umol/L (9-30)
[2024-03-30 06:35] LABS: Alanine Aminotransferase 24 U/L (6-50); Albumin Level 2.7 g/dL (3.5-5.1); Alkaline Phosphatase 107 U/L (38-126); Anion Gap 4 mmol/L (4-12); Aspartate Amino Transferase 36 U/L (17-59); Bilirubin,Total 0.3 mg/dL (0.2-1.3); Blood Urea Nitrogen 35 mg/dL (9-20); Calcium 8.4 mg/dL (8.4-10.2); Carbon Dioxide 32 mmol/L (22-30); Chloride 106 mmol/L (98-107); Estimated CRCL calculation 79 ml/min; Estimated Glomerular Filt Rate > 60; Glucose 233 mg/dL (65-110); Magnesium 2.1 mg/dL (1.6-2.3); Phosphorus 3.1 mg/dL (2.5-4.5); Potassium 3.8 mmol/L (3.4-5.0); Sodium 142 mmol/L (137-145)
[2024-03-30 07:21] LABS: Glucose Point of Care 234 mg/dl (65-105)
[2024-03-30] MEDS: PANTOPRAZOLE SODIUM IV 40 MG VIAL IV PUSH ×2 (08:00→20:38)
[2024-03-30] MEDS: MINERAL OIL/WHITE PETROLATUM OINTMENT 1 APPLIC EACH EYE ×2 (08:00→20:36)
[2024-03-30] MEDS: ASPIRIN 81 MG CHEWABLE TABLET FEED TUBE (08:01)
[2024-03-30] MEDS: POTASSIUM CHLORIDE 20 MEQ PACKET (FOR LIQUID) 40 MEQ PO (08:01)
[2024-03-30] MEDS: FONDAPARINUX SODIUM 5 MG/0.4 ML SYRINGE SUB-Q (08:01)
[2024-03-30] MEDS: FUROSEMIDE INJ 40 MG/4 ML VIAL IV PUSH (08:01)
--- NOTE | 2024-03-30 09:56 | P.PNINT_ITS ---
Progress Note: A&P Assessment and Plan (1) Acute respiratory failure with hypoxia: Code(s): J96.01 - Acute respiratory failure with hypoxia Status: Acute Assessment and Plan: Acute respiratory failure likely related to cardiac arrest, aspiration pneumonia, NSTEMI, hypoxia, septic shock Worsening likely secondary to ARDS versus pulmonary edema Intubated 02/27 02/28 Chest CTA: Extensive right upper lobe consolidation and more mild right middle lobe consolidation, consistent with pneumonia. Consider aspiration pneumonia.Moderate to large right pleural effusion with complete atelectasis of the right lower lobe. Moderate left pleural effusion with minimal left basilar atelectasis. Small pericardial effusion. No definite acute abnormality in the abdomen or pelvis. Chronic compression fractures, as above . -03/07 right thoracentesis with 1 L fluid removed -03/08 left-sided thoracentesis 550 mL -03/11: patient was in pressure support ventilation 02/18, with decrease tidal volumes in the upper 200s. place patient back on CMV, I have asked the bedside RN to decrease the Precedex infusion once patient is more awake will place back on spontaneous breathing trials 03/12: Place patient on SBT 04/17, low tidal volumes, low respiratory rate. Patient had replaced back on CMV mode of ventilation. -even on ASV patient is breathing only 7-8 times a minute 03/13: Off Precedex infusion overnight, placed patient on pressure support ventilation 04/17, initially did well but not significantly tachycardic and tachypneic and in respiratory distress, patient was placed back on CMV mode of ventilation and low-dose was 03/14 8/5 PSV SBT done for more than 1 hour. RSBI, ABG and Vitals acceptable. Pt awake and following commands. Patient was extubated. Initially patient did well and was on nasal cannula and was able to communicate. Over 12 hours patient became more hypoxic with increased respiratory distress and tachypnea. I spoke to patient post extubation and was agreeable to re-intubation if needed and stated that 'he is not ready to ' and 'do what ever it takes'. He was re intubated at night. I also mentioned to him that he may need tracheostomy and PEG tube placement if he gets we intubated and is not weanable. He told me 'to proceed with it if needed'. Solu-Medrol IV given for airway edema and will be continued for 24 hours -completed course of Solu-Medrol -continue bronchodilators -CT scan shows large pleural effusions bilaterally. I will request IR for thoracentesis.. Patient is on minimal ventilator setting but has failed trials initially multiple times and then once extubated he was reintubated within 12 hours. I will treat try again after thoracentesis to see patient is weanable from the vent otherwise will proceed with trach and PEG as patient has been on ventilator for more than 2 weeks. 03/17 right thoracentesis 1 L fluid was removed 03/18 left thoracentesis 550 mL fluid was removed Will also continue diuretics. 03/19 patient was extubated after weaning trial 03/20 continue nasal cannula, BiPAP p.r.n., hold diuretics, incentive spirometry, spoke to patient after extubation yesterday he is willing to be intubated if needed and proceed with trach and PEG if needed hopefully we can avoid that situation 03/21 patient continues to require BiPAP intermittently and tolerates nasal cannula. He appears quite weak although he does have borderline cough. Cont inue incentive spirometry. P.r.n. BiPAP. BiPAP at night. Nasal cannula as tolerated. Patient remains at risk of requiring intubation. I spoke to patient again and mention that to him and he verbalized understanding by noting his head. I will check chest x-ray. Continue ICU monitoring 03/22 discussed with the patient emphasized importance of using BiPAP for increased work of breathing and at night due to his deconditioning and weakness. He is currently saturating on nasal cannula and appears not in any respiratory distress. later patient deteriorated and required re-intubation 03/23 ABG and chest x-ray. patient has failed extubation twice and has been on ventilator for close to 20 days. Patient is awaiting trach now . ENT consulted ABG and chest x-ray reviewed. Continue mechanical ventilation. Tracheostomy scheduled for 03/31. no ENT coverage until then 03/29: Off all sedation. Patient opens eyes, follows simple commands with left lower extremity blood pressures have been stable, off pressors -responded well to diuresis, give Lasix again today (2) Elevated LFTs: Code(s): R79.89 - Other specified abnormal findings of blood chemistry Status: Acute Assessment and Plan: 03/13: Significant elevation in LFTs, AST 2280, ALT 988, alk-phos 722 -patient has been hemodynamically stable, no hypotension noted in the last 24-48 hours -statin discontinued. Hold Tylenol -no tenderness in the right upper, lower quadrant or epigastric region on exam -negative vital hepatitis panel, right upper quadrant ultrasound with Doppler negative for hepatic or portal vein thrombosis -patient evaluated by GI -levels now improved. Monitor (3) Cardiac arrest with pulseless electrical activity: Code(s): I46.9 - Cardiac arrest, cause unspecified Status: Acute Assessment and Plan: Cardiac arrest, secondary to unknown etiology. Possible aspiration pneumonia, NSTEMI, hypoxia, septic shock, infection -see code blue sheet for the details -patient currently intubated, -appreciate cardiology following the patient 02/29/2024 echocardiogram Summary 1. Technically difficult study with limited views. 2. Left ventricular chamber dimension is normal. 3. Left ventricular systolic function is mildly reduced, estimated at 45-50%. The apex appears to be hypokinetic. 4. There is mildly increased left ventricular wall thickness. 5. The left ventricular diastolic function is grade I diastolic dysfunction. 6. Right ventricular systolic function is normal. 7. Left atrial chamber dimension is moderately enlarged. 8. There is mild to moderate tricuspid valve regurgitation. 9. There is small anterior pericardial effusion. (4) Septic shock: Code(s): A41.9 - Sepsis, unspecified organism; R65.21 - Severe sepsis with septic shock Status: Acute Assessment and Plan: Resolved Patient in shock, likely related to the gangrene, aspiration pneumonia, status post cardiac arrest 02/28/2024: Blood cultures have been obtained and negative Status post 10 days of antibiotics 03/16 low-grade fever increase in WBC CT scan as above, repeat blood cultures and sputum pending UA suggestive of UTI. Urine cultures pending. Ha has been changed. Completed course of cefepime Off Levophed since 03/29 after discontinuing sedation (5) NSTEMI (non-ST elevated myocardial infarction): Code(s): I21.4 - Non-ST elevation (NSTEMI) myocardial infarction Status: Acute Assessment and Plan: -appreciate cardiology evaluation and recommendation -Continue aspirin, Lovenox and high-dose a statin - beta-brayden, losartan are on hold due to soft blood pressure. -03/02 heparin infusion was discontinued after 48 hours for NSTEMI by cardiology (6) Gangrene of right foot: Code(s): I96 - Gangrene, not elsewhere classified Status: Acute Assessment and Plan: CTA showed peripheral arterial disease with total occlusion of the right anterior and posterior tibial arteries and right peroneal artery with distal reconstitution of peroneal artery. This extensive gangrene of the right foot with gas seen on CT of the foot. General surgery spoke to the patient in the ER on the day of admission on 02/27 patient at that time agreed for below-knee amputation. Plan was to do a below- knee amputation on 02/29/2024 but patient had a cardiac arrest that night secondary to sepsis. Surgery at that time was deferred. Patient now is intubated sedated and unable to sign his consent.. Patient has no family and for many years at the senior care has had no visitor. He has 1 son which no one has been able to get hold off right several attempts. Considering patient has gangrene of the foot with no vascular supply leading to sepsis and if untreatable lead to his , Dr. Johns will proceed with amputation today, 03/05/2024. Dr. Collins and Dr. Johns has signed 2 physician consent considering patient's clearly expressed wishes prior to cardiac arrest at the time of admission, his current situation and inability to sign the consent form by him self at this time. 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 -complete 5 days of clindamycin 03/13: Discussed with surgery, there is flexion contractures of his amputation which may hinder in him getting prosthetics, patient may require above knee amputation (7) Osteomyelitis of toe of right foot: Code(s): M86.9 - Osteomyelitis, unspecified Status: Chronic Assessment and Plan: As above (8) Peripheral vascular disease: Code(s): I73.9 - Peripheral vascular disease, unspecified Status: Chronic Assessment and Plan: Patient has history of peripheral vascular disease, coronary artery disease -continue aspirin (9) Type 2 diabetes mellitus: Qualifiers: 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 complication status: with other specified complication 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 intermission coordinator insulin use: with chcf use Qualified Code(s): E11.69 - Type 2 diabetes mellitus with other specified complication; Z79.4 - buttermaker continuous churn (current) use of insulin Code(s): E11.9 - Type 2 diabetes mellitus without complications Status: Acute Assessment and Plan: Currently on sliding scale insulin, Accu-Cheks Hemoglobin A1c this admission is 8.2 (10) Chronic obstructive pulmonary disease: Code(s): J44.9 - Chronic obstructive pulmonary disease, unspecified Status: Chronic Assessment and Plan: Continue DuoNebs -continue Symbicort (11) Electrolyte abnormality: Code(s): E87.8 - Other disorders of electrolyte and fluid balance, not elsewhere classified Status: Acute Assessment and Plan: Hypernatremia has resolved, decreased free water flushes (12) Ileus: Code(s): K56.7 - Ileus, unspecified Status: Acute Assessment and Plan: CT scan shows significant amount of tube feeds collected in the stomach. Patient also had high residuals. Patient has already been on Reglan. Bowel sounds are present but decreased. tube feeds restarted after PEG placement 03/26 tube feeds held due to high residuals. Started on Reglan. Restart tube feeds at low rate at noon today. Tolerating tube feeds, continue Reglan and MiraLax 03/30: DC Reglan as patient had multiple bowel movements -continue MiraLaX, HOLD FOR DIARRHEA (13) Sinus tachycardia: Code(s): R00.0 - Tachycardia, unspecified Status: Acute Assessment and Plan: Does not appear in any respiratory distress. Continue BiPAP p.r.n.. Beta-brayden on hold as patient is on pressors -resolved (14) Dysphagia: Code(s): R13.10 - Dysphagia, unspecified Status: Acute Assessment and Plan: 03/24 PEG tube inserted. Tolerating Tube feeds (15) DVT (deep venous thrombosis): Code(s): I82.409 - Acute embolism and thrombosis of unspecified deep veins of unspecified lower extremity Status: Acute Assessment and Plan: ultrasound shows clot surrounding the PICC line in the right upper extremity PICC line working and will be left in place for now -Lovenox on hold, due to anemia and blood noticed in the oral cavity and PEG tube -03/29: Hemoglobin 7.0 this morning, will transfuse 1 unit of packed RBCs Hemoglobin this morning 8.6, -appreciate GI evaluation and recommendation (16) Thrombocytopenia: Code(s): D69.6 - Thrombocytopenia, unspecified Status: Acute Assessment and Plan: 4T score is high -start fondaparinux -if patient has additional bleeding will have to hold will anticoagulation Plan DVT prophylaxis: SCDs to left lower extremity, started on fondaparinux Stress ulcer prophylaxis: Protonix IV q.12 hours Nutrition: Tolerating tube feeds Code Status: Full code. PEG tube done. Patient awaits tracheostomy placement which is scheduled for 03/31 03/15 Patient has no family available. Patient was extubated on 03/14 and I spoke to patient post extubation. I mentioned possibility of him needing re- intubation and he was agreeable stating that he is not ready to at this time. He stated that do whatever needs to be done to keep me alive. I also mentioned to him that if he gets reintubated and is unable to be weaned he will need tracheostomy and PEG tube placement and he states that he is agreeable to do it if needed. He did mention that he has some nephews in area which can be contacted. rehab office coordinator was provided that information. 03/19 I confirmed with patient again regarding his code status he is willing to get reintubated if needed and is willing to proceed with trach and PEG if needed. He wishes to be full code. 03/23 Finally patient's son arrived at bedside and I spoke to him with his and patient's ex- in the conference room. I updated them in detail about the details of patient's admission presentation and hospital course till now. He states that he has not been touch with his dad for last 10 years. He is willing to be the POA at this time. I answered all his questions and explained him the patient is currently in respiratory failure with failure to wean requiring re- intubation x2, congestive Heart Care earlier, gangrene of right foot requiring amputation, sepsis, UTI, dysphagia and he will need trach and PEG. They understand and agree with patient's wishes to proceed with trach and PEG at this time. He was hoping the patient can go to a facility close to where he lives. Critical Care Time Spent: 32 minutes Due to a high probability of clinically significant, life threatening deterioration, the patient required my highest level of preparedness to intervene emergently and I personally spent this critical care time directly and personally managing the patient. This critical care time included obtaining a history; examining the patient; pulse oximetry; ordering and review of studies; arranging urgent treatment with development of a management plan; evaluation of patient's response to treatment; frequent reassessment; and discussions with other providers. It was exclusive of separately billable procedures and treating other patients and teaching time. Please see Assessment and Plan section and the rest of the note for further information on patient assessment and treatment This dictation may have been done utilizing a voice recognition system. Attempts have been made to correct errors. However, there may be uncorrected grammatical, spelling, and recognitions errors present. Subjective Date/time seen: 03/30/24 09:56 Interval history: 03/30/2024: Patient seen and examined the ICU. Remains intubated on CMV mode of ventilation, FiO2 of 30% and PEEP of 8. Has been off fentanyl and Versed infusion since morning of 03/29. Patient opens his eyes to name, follows simple commands in left lower extremity only. Urine output has been adequate in response to diuretics, patient is afebrile. Off Levophed since discontinuing the sedation. Small amount of blood noted from his oral cavity. Platelet counts have been dropping. Hemoglobin is 8.6 this morning Review of Systems Review of Systems: All systems reviewed & are unremarkable except as noted in HPI and below (HPI) ROS unobtainable: Yes unobtainable due to endotracheal tube, unobtainable due to medical condition and unobtainable due to mental status Exam Narrative: General: Patient intubated, not on any sedation, is in no acute distress HEENT:, pupils are equal and reactive from a sclera is clear, small amount of old blood noted in the mouth Neck:? supple Respiratory:? Coarse breath sounds bilaterally, decreased at bases, adequate air entry, no wheezing Cardiac:? S1-S2 normal, regular rate and rhythm Abdomen:? Soft, nontender, nondistended, bowel sounds are normoactive, PEG tube in place Extremities:? Right BKA stump, covered with Tobi wrap. Left dorsalis pedis is dopplerable Neuro:? Patient is intubated, not on any sedation, opens his eyes, follows simple commands with his left lower extremity only. Skin:? Patient has maceration of his perianal area, pressure ulcer on his buttocks. Psych:? Unable to assess at this time Objective Data Vital Signs Vital Signs: Vital Signs - 24 hr 03/29/24 10:15 03/29/24 10:27 03/29/24 10:28 Temperature 99.2 F Pulse Rate 102 H 100 100 Respiratory Rate 16 16 Blood Pressure 102/65 102/53 L Pulse Oximetry 97 Oxygen Delivery Fraction of Inspired Oxygen 03/29/24 10:31 03/29/24 10:30 03/29/24 10:48 Temperature 99.3 F Pulse Rate 100 100 100 Respiratory Rate 16 16 Blood Pressure 95/52 L Pulse Oximetry 97 97 Oxygen Delivery Mechanical Ventilation Fraction of Inspired Oxygen 40 03/29/24 11:30 03/29/24 10:04 03/29/24 10:15 Temperature 99.3 F 99.2 F 99.2 F Pulse Rate 95 102 H 102 H Respiratory Rate 16 16 16 Blood Pressure 94/54 L 102/53 L Pulse Oximetry 97 97 96 Oxygen Delivery Fraction of Inspired Oxygen 03/29/24 10:30 03/29/24 11:20 03/29/24 11:32 Temperature 99.3 F 99.3 F 99.3 F Pulse Rate 100 93 94 Respiratory Rate 16 16 16 Blood Pressure 95/52 L 94/54 L Pulse Oximetry 96 97 97 Oxygen Delivery Fraction of Inspired Oxygen 03/29/24 10:00 03/29/24 12:00 03/29/24 12:00 Temperature Pulse Rate 101 H 98 Respiratory Rate Blood Pressure Pulse Oximetry Oxygen Delivery Mechanical Ventilation Fraction of Inspired Oxygen 40 03/29/24 12:00 03/29/24 12:00 03/29/24 12:30 Temperature 99 F 99.4 F Pulse Rate 101 H 97 Respiratory Rate 16 16 Blood Pressure 111/71 95/51 L Pulse Oximetry 98 97 Oxygen Delivery Fraction of Inspired Oxygen 40 03/29/24 13:30 03/29/24 13:51 03/29/24 13:51 Temperature 99.4 F Pulse Rate 101 H 103 H 103 H Respiratory Rate 16 16 Blood Pressure 106/60 Pulse Oximetry 97 97 Oxygen Delivery Mechanical Ventilation Fraction of Inspired Oxygen 40 03/29/24 13:59 03/29/24 14:07 03/29/24 14:00 Temperature 99.4 F Pulse Rate 101 H 104 H 104 H Respiratory Rate 16 16 Blood Pressure 108/56 L Pulse Oximetry 97 Oxygen Delivery Fraction of Inspired Oxygen 03/29/24 14:00 03/29/24 16:00 03/29/24 16:00 Temperature 99.4 F 99.6 F Pulse Rate 104 H 96 Respiratory Rate 16 16 Blood Pressure 108/56 L 90/47 L Pulse Oximetry 97 97 Oxygen Delivery Fraction of Inspired Oxygen 40 03/29/24 16:00 03/29/24 17:20 03/29/24 16:00 Temperature Pulse Rate 94 100 Respiratory Rate Blood Pressure Pulse Oximetry 96 Oxygen Delivery Mechanical Ventilation Mechanical Ventilation Fraction of Inspired Oxygen 30 30 03/29/24 18:00 03/29/24 18:00 03/29/24 20:51 Temperature 99.7 F H Pulse Rate 93 93 102 H Respiratory Rate 16 16 Blood Pressure 99/51 L Pulse Oximetry 96 Oxygen Delivery Fraction of Inspired Oxygen 03/29/24 20:44 03/29/24 20:00 03/29/24 20:00 Temperature Pulse Rate 102 H 104 H 104 H Respiratory Rate 16 Blood Pressure Pulse Oximetry 96 96 Oxygen Delivery Mechanical Ventilation Mechanical Ventilation Fraction of Inspired Oxygen 30 30 03/29/24 20:00 03/29/24 20:00 03/29/24 22:00 Temperature 99.6 F Pulse Rate 104 H 109 H Respiratory Rate 16 Blood Pressure 110/52 L Pulse Oximetry 96 Oxygen Delivery Fraction of Inspired Oxygen 30 03/29/24 22:00 03/29/24 21:03 03/29/24 23:33 Temperature 98.9 F Pulse Rate 109 H 103 H 107 H Respiratory Rate 16 16 Blood Pressure Pulse Oximetry 95 95 Oxygen Delivery Mechanical Ventilation Fraction of Inspired Oxygen 30 03/30/24 00:00 03/30/24 00:00 03/30/24 00:00 Temperature Pulse Rate 107 H 107 H Respiratory Rate 16 Blood Pressure Pulse Oximetry 96 Oxygen Delivery Mechanical Ventilation Fraction of Inspired Oxygen 30 30 03/30/24 00:00 03/30/24 02:00 03/30/24 02:00 Temperature 98.7 F 98.7 F Pulse Rate 107 H 109 H 109 H Respiratory Rate 16 16 Blood Pressure 138/70 142/67 H Pulse Oximetry 96 97 Oxygen Delivery Fraction of Inspired Oxygen 03/30/24 02:22 03/30/24 02:19 03/30/24 05:01 Temperature Pulse Rate 110 H 110 H 105 H Respiratory Rate 16 Blood Pressure Pulse Oximetry 97 97 Oxygen Delivery Mechanical Ventilation Mechanical Ventilation Fraction of Inspired Oxygen 30 30 03/30/24 04:00 03/30/24 04:00 03/30/24 04:00 Temperature Pulse Rate 100 100 Respiratory Rate 16 Blood Pressure Pulse Oximetry 97 Oxygen Delivery Mechanical Ventilation Fraction of Inspired Oxygen 30 30 03/30/24 04:00 03/30/24 02:30 03/30/24 06:00 Temperature 99 F Pulse Rate 100 112 H 106 H Respiratory Rate 16 16 Blood Pressure 134/59 L Pulse Oximetry 97 Oxygen Delivery Fraction of Inspired Oxygen 03/30/24 06:00 03/30/24 08:00 03/30/24 08:04 Temperature 99.4 F 99.1 F Pulse Rate 106 H 105 H 105 H Respiratory Rate 17 16 16 Blood Pressure 139/66 136/67 Pulse Oximetry 98 98 Oxygen Delivery Fraction of Inspired Oxygen 03/30/24 08:07 03/30/24 08:13 03/30/24 08:00 Temperature Pulse Rate 104 H 107 H Respiratory Rate 18 Blood Pressure Pulse Oximetry 98 96 Oxygen Delivery Mechanical Ventilation Mechanical Ventilation Fraction of Inspired Oxygen 30 30 03/30/24 08:00 Temperature Pulse Rate Respiratory Rate Blood Pressure Pulse Oximetry Oxygen Delivery Fraction of Inspired Oxygen 30 Intake/Output Intake/Output: Intake & Output 03/27/24 03/28/24 03/29/24 03/30/24 23:59 23:59 23:59 23:59 Intake Total 956.2 1165.2 1845.5 804 Output Total 800 2150 1975 800 Balance 156.2 -984.8 -129.5 4 Meds/Results Medications: Active Medications Generic Name Dose Route Start Last Admin Trade Name Freq PRN Reason Stop Dose Admin Acetaminophen 650 mg 03/25/24 12:39 03/27/24 15:48 Acetaminophen Elixir 325 Mg/10.15 Ml Udc PO 650 mg Q4H PRN Administration Mild Pain (1-3) or Fever Albuterol/Ipratropium 3 ml 02/29/24 02:00 03/30/24 08:04 Ipratropium 0.5 Mg/Albuterol Sulfate 2.5 Mg Ampul.Neb 3 Ml INHALATION 3 ml Q6HRT [facility] Administration Alteplase, Recombinant 2 mg 03/06/24 09:45 03/22/24 16:56 Alteplase 2 Mg Vial (Cathflo) IV PUSH 2 mg ONCE PRN Administration Line Occlusion Aspirin 81 mg 03/09/24 08:00 03/30/24 08:01 Aspirin 81 Mg Chewable Tablet FEED TUBE 81 mg DAILY@0800 [facility] Administration Bisacodyl 10 mg 03/24/24 07:31 03/24/24 16:04 Bisacodyl 10 Mg Suppository RECTAL 10 mg QAM PRN Administration Constipation Dextrose 12.5 gm 02/28/24 19:23 Dextrose 50% 25 Gm/50 Ml Syringe IV PUSH PRN PRN Hypoglycemia Protocol Fondaparinux 5 mg 03/30/24 09:00 03/30/24 08:01 Fondaparinux Sodium 5 Mg/0.4 Ml Syringe SUB-Q 5 mg QAM JASON Administration Glucagon 1 mg 02/28/24 19:23 Glucagon For Inj 1 Mg Vial IM PRN PRN Hypoglycemia Protocol Glucose 15 gm 03/08/24 10:19 Glucose Oral Gel 15 Gm Of Glucse In 37.5 Gm Tube FEED TUBE PRN PRN Hypoglycemia Protocol Dextrose 1,000 mls @ 100 mls/hr 02/28/24 19:23 Dextrose 5% 1,000 Ml IVPB PRN PRN Hypoglycemia Protocol Insulin Aspart 3 - 6 units 03/15/24 17:00 03/30/24 08:01 Insulin Aspart (*Bkc) 100 Units/Ml SUB-Q 3 units Q4HR JASON Administration Protocol Insulin Glargine 55 units 03/15/24 09:00 03/16/24 10:44 Insulin Glargine (*Bkc) 100 Units/Ml SUB-Q 55 units DAILY JASON Administration Labetalol HCl 20 mg 03/08/24 10:06 03/08/24 16:48 Labetalol Hcl Inj 100 Mg/20 Ml Vial IV PUSH 20 mg Q4H PRN Administration SBP > 160 and HR> 60 -1st choice Metoclopramide HCl 10 mg 03/27/24 12:00 03/30/24 06:18 Metoclopramide Hcl Inj 10 Mg/2 Ml Vial IV PUSH Not Given Q6HR JASON Multi-Ingred Cream/Lotion/Oil/Oint 1 applic 03/22/24 21:00 03/30/24 08:00 Mineral Oil/White Petrolatum Ointment EACH EYE 1 applic Q12HR JASON Administration Pantoprazole Sodium 40 mg 03/02/24 09:00 03/30/24 08:00 Pantoprazole Sodium Iv 40 Mg Vial IV PUSH 40 mg Q12HR JASON Administration Polyethylene Glycol 17 gm 03/24/24 09:00 03/30/24 08:11 Polyethylene Glycol 3350 17 Gm Powd.Pack PO Not Given QAM JASON Sodium Chloride 20 ml 02/28/24 23:37 Central Line Flush IV PUSH PRN PRN after blood draws Sodium Chloride 20 ml 03/21/24 08:57 Central Line Flush IV PUSH PRN PRN after blood draws Sodium Chloride 10 ml 03/21/24 08:57 Central Line Flush IV PUSH PRN PRN with TPN bag changes Sodium Chloride 10 ml 03/21/24 14:00 03/30/24 06:16 Central Line Flush IV PUSH 10 ml Q8HR JASON Administration Radiology Results: ITS Impressions Lower Extremity CTA 02/28/24 14:54 IMPRESSION: 1. 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 2. Moderate stenosis of right popliteal artery. 3. Osteomyelitis involving first proximal and distal phalanges and head of first metatarsal. Head CT 02/29/24 05:55 Impression: No intracranial hemorrhage, mass, or acute infarct. Stable chronic encephalomalacia in the high left parietal lobe. Atrophy and chronic white matter changes, as above. Chest/Abdomen/Pelvis CTA 02/29/24 06:02 Impression: Extensive right upper lobe consolidation and more mild right middle lobe consolidation, consistent with pneumonia. Consider aspiration pneumonia. Moderate to large right pleural effusion with complete atelectasis of the right lower lobe. Moderate left pleural effusion with minimal left basilar atelectasis. Small pericardial effusion. No definite acute abnormality in the abdomen or pelvis. Chronic compression fractures, as above. Renal Ultrasound 03/03/24 15:45 IMPRESSION: 1. Normal kidneys without hydronephrosis. 2. Small amount of ascites in the abdomen and pelvis. Abdomen Ultrasound 03/13/24 16:52 IMPRESSION: 1. No etiology for abnormal liver function tests. 2. Normal hepatic veins and main portal vein. Right and left portal veins and proper hepatic artery not evaluated. 3. Right pleural effusion. Vascular Ultrasound 03/13/24 16:52 IMPRESSION: 1. No etiology for abnormal liver function tests. 2. Normal hepatic veins and main portal vein. Right and left portal veins and proper hepatic artery not evaluated. 3. Right pleural effusion. Chest/Abdomen/Pelvis CT 03/16/24 21:51 IMPRESSION: Anasarca Large pleural effusions with prominent compressive atelectasis of the lower lobes especially, dependent atelectasis of the middle and upper lobes Heart size. Prominent coronary artery atherosclerotic calcifications Minimal pericardial effusion Prominent diffuse thickening of urinary bladder wall suggesting cystitis area Ha catheter in bladder lumen Very prominent amount of fluid and large fluid level within the stomach despite presence of NG tube T11 and L1 moderate anterior wedge compression fractures, likely chronic Thoracentesis Ultrasound 03/18/24 10:27 IMPRESSION: 1. Successful ultrasound-guided thoracentesis yielding 550 mL of doris-colored fluid. Modified Barium Swallow 03/21/24 15:25 IMPRESSION: 1. Aspiration of thin liquids and pudding. 2. Please refer to the speech therapy report for recommendations. Tube Placement 03/22/24 11:33 IMPRESSION: 1. Fluoroscopy guided nasoenteric tube placement with tip in the stomach. Abdomen X-Ray 03/22/24 12:47 IMPRESSION: 1. Nasogastric tube tip in the stomach. 2. Nasoenteric tube tip in the stomach. Venous Doppler Study 03/22/24 16:38 IMPRESSION: Nonocclusive right subclavian vein thrombus. No additional deep venous thrombosis detected in the remaining bilateral upper extremity veins. Chest X-Ray 03/30/24 09:10 Impression: Bilateral pleural effusions, right greater than left, with associated [id number] pulmonary edema. Support tubes, as above. Labs Labs: Laboratory Results - last 24 hr 03/29/24 03/29/24 03/29/24 08:15 11:46 16:39 WBC RBC Hgb Hct MCV MCH MCHC RDW Plt Count MPV Immature Gran % (Auto) Neut % (Auto) Lymph % (Auto) [place] % (Auto) Eos % (Auto) Baso % (Auto) Lymph # (Auto) [place] # (Auto) Eos # (Auto) Baso # (Auto) Abs Immat Gran (auto) Absolute Neuts (auto) Absolute Nucleated RBC Nucleated RBC % Puncture Site ABG pH ABG pCO2 ABG pO2 ABG PO2/FiO2 Ratio ABG HCO3 ABG O2 Saturation ABG O2 Content ABG Base Excess A-a Gradient Oxyhemoglobin Carboxyhemoglobin Methemoglobin Reduced Hemoglobin Total Hemoglobin O2 Delivery Device O2 Liters/Min Minute Volume Vent Rate Vent Mode FiO2 Tidal Volume PEEP Peak Inspir Pressure Pressure Support Sodium Potassium Chloride Carbon Dioxide Anion Gap BUN Creatinine Estim Creat Clear Calc Estimated GFR Glucose POC Capillary Glucose 202 H 236 H Calcium Phosphorus Magnesium Total Bilirubin AST ALT Alkaline Phosphatase Ammonia Total Protein Albumin Stl Occult Blood (IFOB) Blood Type O Positive Antibody Screen Negative Crossmatch See Detail 03/29/24 03/29/24 03/30/24 20:39 21:00 00:13 WBC RBC Hgb Hct MCV MCH MCHC RDW Plt Count MPV Immature Gran % (Auto) Neut % (Auto) Lymph % (Auto) [place] % (Auto) Eos % (Auto) Baso % (Auto) Lymph # (Auto) [place] # (Auto) Eos # (Auto) Baso # (Auto) Abs Immat Gran (auto) Absolute Neuts (auto) Absolute Nucleated RBC Nucleated RBC % Puncture Site ABG pH ABG pCO2 ABG pO2 ABG PO2/FiO2 Ratio ABG HCO3 ABG O2 Saturation ABG O2 Content ABG Base Excess A-a Gradient Oxyhemoglobin Carboxyhemoglobin Methemoglobin Reduced Hemoglobin Total Hemoglobin O2 Delivery Device O2 Liters/Min Minute Volume Vent Rate Vent Mode FiO2 Tidal Volume PEEP Peak Inspir Pressure Pressure Support Sodium Potassium Chloride Carbon Dioxide Anion Gap BUN Creatinine Estim Creat Clear Calc Estimated GFR Glucose POC Capillary Glucose 229 H 239 H Calcium Phosphorus Magnesium Total Bilirubin AST ALT Alkaline Phosphatase Ammonia Total Protein Albumin Stl Occult Blood (IFOB) Positive H Blood Type Antibody Screen Crossmatch 03/30/24 03/30/24 03/30/24 04:31 05:03 06:11 WBC RBC Hgb Hct MCV MCH MCHC RDW Plt Count MPV Immature Gran % (Auto) Neut % (Auto) Lymph % (Auto) [place] % (Auto) Eos % (Auto) Baso % (Auto) Lymph # (Auto) [place] # (Auto) Eos # (Auto) Baso # (Auto) Abs Immat Gran (auto) Absolute Neuts (auto) Absolute Nucleated RBC Nucleated RBC % Puncture Site Right radial ABG pH 7.478 H ABG pCO2 41.4 ABG pO2 96.2 ABG PO2/FiO2 Ratio 3.21 ABG HCO3 30.0 H ABG O2 Saturation 97.7 ABG O2 Content 13.1 L ABG Base Excess 5.9 A-a Gradient 69.1 Oxyhemoglobin 96.8 Carboxyhemoglobin 0.8 Methemoglobin 0.1 Reduced Hemoglobin 2.3 Total Hemoglobin 9.5 L O2 Delivery Device Ventilator O2 Liters/Min Not Reportable Minute Volume Not Reportable Vent Rate 16 Vent Mode Cmv FiO2 30 Tidal Volume 380 PEEP 8 Peak Inspir Pressure Not Reportable Pressure Support Not Reportable Sodium Potassium Chloride Carbon Dioxide Anion Gap BUN Creatinine Estim Creat Clear Calc Estimated GFR Glucose POC Capillary Glucose 238 H Calcium Phosphorus Magnesium Total Bilirubin AST ALT Alkaline Phosphatase Ammonia < 9 L Total Protein Albumin Stl Occult Blood (IFOB) Blood Type Antibody Screen Crossmatch 03/30/24 03/30/24 06:12 07:17 WBC 5.9 RBC 3.02 L Hgb 8.6 L Hct 28.0 L MCV 92.7 MCH 28.5 MCHC 30.7 L RDW 18.0 H Plt Count 146 L MPV 10.2 Immature Gran % (Auto) 1.4 H Neut % (Auto) 61.1 Lymph % (Auto) 22.5 [place] % (Auto) 10.3 H Eos % (Auto) 4.4 Baso % (Auto) 0.3 Lymph # (Auto) 1.33 [place] # (Auto) 0.6 Eos # (Auto) 0.3 Baso # (Auto) 0.0 Abs Immat Gran (auto) 0.08 H Absolute Neuts (auto) 3.6 Absolute Nucleated RBC 0.000 Nucleated RBC % 0.0 Puncture Site ABG pH ABG pCO2 ABG pO2 ABG PO2/FiO2 Ratio ABG HCO3 ABG O2 Saturation ABG O2 Content ABG Base Excess A-a Gradient Oxyhemoglobin Carboxyhemoglobin Methemoglobin Reduced Hemoglobin Total Hemoglobin O2 Delivery Device O2 Liters/Min Minute Volume Vent Rate Vent Mode FiO2 Tidal Volume PEEP Peak Inspir Pressure Pressure Support Sodium 142 Potassium 3.8 Chloride 106 Carbon Dioxide 32 H Anion Gap 4 BUN 35 H Creatinine 0.80 Estim Creat Clear Calc 79 Estimated GFR > 60 Glucose 233 H POC Capillary Glucose 234 H Calcium 8.4 Phosphorus 3.1 Magnesium 2.1 Total Bilirubin 0.3 AST 36 ALT 24 Alkaline Phosphatase 107 Ammonia Total Protein 6.0 L Albumin 2.7 L Stl Occult Blood (IFOB) Blood Type Antibody Screen Crossmatch Quality VTE Prophylaxis VTE prophylaxis: pharmacologic ordered
[2024-03-30 12:07] LABS: Glucose Point of Care 251 mg/dl (65-105)
--- NOTE | 2024-03-30 14:36 | P.PNGS_ITS ---
Progress Note: A&P Assessment and Plan (1) Amputation of right lower extremity below knee: Qualifiers: Encounter type: subsequent encounter Qualified Code(s): S88.111D - Complete traumatic amputation at level between knee and ankle, right lower leg, subsequent encounter Code(s): S88.111A - Complete traumatic amputation at level between knee and ankle, right lower leg, initial encounter Status: Acute Assessment and Plan: remains in critical care on ventilator. To have tracheostomy tube placed tomorrow. Right BKA is viable but clearly has flexion contracture and some epithelial slough. Continue to follow. Subjective Subjective Date/Time Seen: 03/30/24 14:36 Patient reports: other ( still intubated) Exam Extrem: Right lower extremity: knee ( flexion contracture) and lower leg ( still some skin slough and bullae. Flap looks fine) Objective Data Vital Signs Vital Signs: Vital Signs - 24 hr 03/29/24 16:00 03/29/24 16:00 03/29/24 16:00 Temperature 37.6 C Pulse Rate 96 Respiratory Rate 16 Blood Pressure 90/47 L Pulse Oximetry 97 Oxygen Delivery Mechanical Ventilation Fraction of Inspired Oxygen 40 30 03/29/24 17:20 03/29/24 16:00 03/29/24 18:00 Temperature 37.6 C H Pulse Rate 94 100 93 Respiratory Rate 16 Blood Pressure 99/51 L Pulse Oximetry 96 96 Oxygen Delivery Mechanical Ventilation Fraction of Inspired Oxygen 30 03/29/24 18:00 03/29/24 20:51 03/29/24 20:44 Temperature Pulse Rate 93 102 H 102 H Respiratory Rate 16 Blood Pressure Pulse Oximetry 96 Oxygen Delivery Mechanical Ventilation Fraction of Inspired Oxygen 30 03/29/24 20:00 03/29/24 20:00 03/29/24 20:00 Temperature Pulse Rate 104 H 104 H Respiratory Rate 16 Blood Pressure Pulse Oximetry 96 Oxygen Delivery Mechanical Ventilation Fraction of Inspired Oxygen 30 30 03/29/24 20:00 03/29/24 22:00 03/29/24 22:00 Temperature 37.6 C 37.2 C Pulse Rate 104 H 109 H 109 H Respiratory Rate 16 16 Blood Pressure 110/52 L Pulse Oximetry 96 95 Oxygen Delivery Fraction of Inspired Oxygen 03/29/24 21:03 03/29/24 23:33 03/30/24 00:00 Temperature Pulse Rate 103 H 107 H 107 H Respiratory Rate 16 16 Blood Pressure Pulse Oximetry 95 96 Oxygen Delivery Mechanical Ventilation Mechanical Ventilation Fraction of Inspired Oxygen 30 30 03/30/24 00:00 03/30/24 00:00 03/30/24 00:00 Temperature 37.1 C Pulse Rate 107 H 107 H Respiratory Rate 16 Blood Pressure 138/70 Pulse Oximetry 96 Oxygen Delivery Fraction of Inspired Oxygen 30 03/30/24 02:00 03/30/24 02:00 03/30/24 02:22 Temperature 37.1 C Pulse Rate 109 H 109 H 110 H Respiratory Rate 16 Blood Pressure 142/67 H Pulse Oximetry 97 97 Oxygen Delivery Mechanical Ventilation Fraction of Inspired Oxygen 30 03/30/24 02:19 03/30/24 05:01 03/30/24 04:00 Temperature Pulse Rate 110 H 105 H 100 Respiratory Rate 16 16 Blood Pressure Pulse Oximetry 97 97 Oxygen Delivery Mechanical Ventilation Mechanical Ventilation Fraction of Inspired Oxygen 30 30 03/30/24 04:00 03/30/24 04:00 03/30/24 04:00 Temperature 37.2 C Pulse Rate 100 100 Respiratory Rate 16 Blood Pressure 134/59 L Pulse Oximetry 97 Oxygen Delivery Fraction of Inspired Oxygen 30 03/30/24 02:30 03/30/24 06:00 03/30/24 06:00 Temperature 37.4 C Pulse Rate 112 H 106 H 106 H Respiratory Rate 16 17 Blood Pressure 139/66 Pulse Oximetry 98 Oxygen Delivery Fraction of Inspired Oxygen 03/30/24 08:00 03/30/24 08:04 03/30/24 08:07 Temperature 37.3 C Pulse Rate 105 H 105 H 104 H Respiratory Rate 16 16 Blood Pressure 136/67 Pulse Oximetry 98 98 Oxygen Delivery Mechanical Ventilation Fraction of Inspired Oxygen 30 03/30/24 08:13 03/30/24 08:00 03/30/24 08:00 Temperature Pulse Rate 107 H Respiratory Rate 18 Blood Pressure Pulse Oximetry 96 Oxygen Delivery Mechanical Ventilation Fraction of Inspired Oxygen 30 30 03/30/24 10:28 03/30/24 08:00 03/30/24 10:00 Temperature Pulse Rate 113 H 106 H 108 H Respiratory Rate Blood Pressure Pulse Oximetry 97 Oxygen Delivery Mechanical Ventilation Fraction of Inspired Oxygen 30 03/30/24 10:00 03/30/24 12:00 03/30/24 12:00 Temperature 37.4 C Pulse Rate 108 H 105 H Respiratory Rate 16 Blood Pressure 141/66 H Pulse Oximetry 96 97 Oxygen Delivery Mechanical Ventilation Fraction of Inspired Oxygen 30 03/30/24 12:00 03/30/24 12:00 Temperature 37.4 C Pulse Rate 105 H Respiratory Rate 17 Blood Pressure 134/85 Pulse Oximetry 97 Oxygen Delivery Fraction of Inspired Oxygen 30 Intake/Output Intake/Output: Intake & Output 03/27/24 03/28/24 03/29/24 03/30/24 23:59 23:59 23:59 23:59 Intake Total 956.2 1165.2 1845.5 804 Output Total 800 2150 1975 2100 Balance 156.2 -984.8 -129.5 -1296 Meds/Results Medications: Active Medications Generic Name Dose Route Start Last Admin Trade Name Freq PRN Reason Stop Dose Admin Acetaminophen 650 mg 03/25/24 12:39 03/27/24 15:48 Acetaminophen Elixir 325 Mg/10.15 Ml Udc PO 650 mg Q4H PRN Administration Mild Pain (1-3) or Fever Albuterol/Ipratropium 3 ml 02/29/24 02:00 03/30/24 08:04 Ipratropium 0.5 Mg/Albuterol Sulfate 2.5 Mg Ampul.Neb 3 Ml INHALATION 3 ml Q6HRT JASON Administration Alteplase, Recombinant 2 mg 03/06/24 09:45 03/22/24 16:56 Alteplase 2 Mg Vial (Cathflo) IV PUSH 2 mg ONCE PRN Administration Line Occlusion Aspirin 81 mg 03/09/24 08:00 03/30/24 08:01 Aspirin 81 Mg Chewable Tablet FEED TUBE 81 mg DAILY@0800 JASON Administration Bisacodyl 10 mg 03/24/24 07:31 03/24/24 16:04 Bisacodyl 10 Mg Suppository RECTAL 10 mg QAM PRN Administration Constipation Dextrose 12.5 gm 02/28/24 19:23 Dextrose 50% 25 Gm/50 Ml Syringe IV PUSH PRN PRN Hypoglycemia Protocol Fondaparinux 5 mg 03/30/24 09:00 03/30/24 08:01 Fondaparinux Sodium 5 Mg/0.4 Ml Syringe SUB-Q 5 mg QAM JASON Administration Glucagon 1 mg 02/28/24 19:23 Glucagon For Inj 1 Mg Vial IM PRN PRN Hypoglycemia Protocol Glucose 15 gm 03/08/24 10:19 Glucose Oral Gel 15 Gm Of Glucse In 37.5 Gm Tube FEED TUBE PRN PRN Hypoglycemia Protocol Dextrose 1,000 mls @ 100 mls/hr 02/28/24 19:23 Dextrose 5% 1,000 Ml IVPB PRN PRN Hypoglycemia Protocol Dexmedetomidine HCl 400 mcg in 100 mls @ 4.625 mls/hr 03/30/24 14:05 Precedex 400 Mcg/100 Ml IV CONT .[id number] JASON Protocol 0.2 MCG/KG/HR Insulin Aspart 3 - 6 units 03/15/24 17:00 03/30/24 12:08 Insulin Aspart (*Bkc) 100 Units/Ml SUB-Q 4 units Q4HR JASON Administration Protocol Insulin Glargine 55 units 03/15/24 09:00 03/16/24 10:44 Insulin Glargine (*Bkc) 100 Units/Ml SUB-Q 55 units DAILY JASON Administration Labetalol HCl 20 mg 03/08/24 10:06 03/08/24 16:48 Labetalol Hcl Inj 100 Mg/20 Ml Vial IV PUSH 20 mg Q4H PRN Administration SBP > 160 and HR> 60 -1st choice Multi-Ingred Cream/Lotion/Oil/Oint 1 applic 03/22/24 21:00 03/30/24 08:00 Mineral Oil/White Petrolatum Ointment EACH EYE 1 applic Q12HR JASON Administration Pantoprazole Sodium 40 mg 03/02/24 09:00 03/30/24 08:00 Pantoprazole Sodium Iv 40 Mg Vial IV PUSH 40 mg Q12HR JASON Administration Polyethylene Glycol 17 gm 03/24/24 09:00 03/30/24 08:11 Polyethylene Glycol 3350 17 Gm Powd.Pack PO Not Given QAM JASON Sodium Chloride 20 ml 02/28/24 23:37 Central Line Flush IV PUSH PRN PRN after blood draws Sodium Chloride 20 ml 03/21/24 08:57 Central Line Flush IV PUSH PRN PRN after blood draws Sodium Chloride 10 ml 03/21/24 08:57 Central Line Flush IV PUSH PRN PRN with TPN bag changes Sodium Chloride 10 ml 03/21/24 14:00 03/30/24 06:16 Central Line Flush IV PUSH 10 ml Q8HR JASON Administration Radiology Results: ITS Impressions Lower Extremity CTA 02/28/24 14:54 IMPRESSION: 1. 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 2. Moderate stenosis of right popliteal artery. 3. Osteomyelitis involving first proximal and distal phalanges and head of first metatarsal. Head CT 02/29/24 05:55 Impression: No intracranial hemorrhage, mass, or acute infarct. Stable chronic encephalomalacia in the high left parietal lobe. Atrophy and chronic white matter changes, as above. Chest/Abdomen/Pelvis CTA 02/29/24 06:02 Impression: Extensive right upper lobe consolidation and more mild right middle lobe consolidation, consistent with pneumonia. Consider aspiration pneumonia. Moderate to large right pleural effusion with complete atelectasis of the right lower lobe. Moderate left pleural effusion with minimal left basilar atelectasis. Small pericardial effusion. No definite acute abnormality in the abdomen or pelvis. Chronic compression fractures, as above. Renal Ultrasound 03/03/24 15:45 IMPRESSION: 1. Normal kidneys without hydronephrosis. 2. Small amount of ascites in the abdomen and pelvis. Abdomen Ultrasound 03/13/24 16:52 IMPRESSION: 1. No etiology for abnormal liver function tests. 2. Normal hepatic veins and main portal vein. Right and left portal veins and proper hepatic artery not evaluated. 3. Right pleural effusion. Vascular Ultrasound 03/13/24 16:52 IMPRESSION: 1. No etiology for abnormal liver function tests. 2. Normal hepatic veins and main portal vein. Right and left portal veins and proper hepatic artery not evaluated. 3. Right pleural effusion. Chest/Abdomen/Pelvis CT 03/16/24 21:51 IMPRESSION: Anasarca Large pleural effusions with prominent compressive atelectasis of the lower lobes especially, dependent atelectasis of the middle and upper lobes Heart size. Prominent coronary artery atherosclerotic calcifications Minimal pericardial effusion Prominent diffuse thickening of urinary bladder wall suggesting cystitis area Ha catheter in bladder lumen Very prominent amount of fluid and large fluid level within the stomach despite presence of NG tube T11 and L1 moderate anterior wedge compression fractures, likely chronic Thoracentesis Ultrasound 03/18/24 10:27 IMPRESSION: 1. Successful ultrasound-guided thoracentesis yielding 550 mL of doris-colored fluid. Modified Barium Swallow 03/21/24 15:25 IMPRESSION: 1. Aspiration of thin liquids and pudding. 2. Please refer to the speech therapy report for recommendations. Tube Placement 03/22/24 11:33 IMPRESSION: 1. Fluoroscopy guided nasoenteric tube placement with tip in the stomach. Abdomen X-Ray 03/22/24 12:47 IMPRESSION: 1. Nasogastric tube tip in the stomach. 2. Nasoenteric tube tip in the stomach. Venous Doppler Study 03/22/24 16:38 IMPRESSION: Nonocclusive right subclavian vein thrombus. No additional deep venous thrombosis detected in the remaining bilateral upper extremity veins. Chest X-Ray 03/30/24 09:10 Impression: Bilateral pleural effusions, right greater than left, with associated [id number] pulmonary edema. Support tubes, as above. Labs Labs: Laboratory Results - last 24 hr 03/29/24 03/29/24 03/29/24 16:39 20:39 21:00 WBC RBC Hgb Hct MCV MCH MCHC RDW Plt Count MPV Immature Gran % (Auto) Neut % (Auto) Lymph % (Auto) [place] % (Auto) Eos % (Auto) Baso % (Auto) Lymph # (Auto) [place] # (Auto) Eos # (Auto) Baso # (Auto) Abs Immat Gran (auto) Absolute Neuts (auto) Absolute Nucleated RBC Nucleated RBC % Puncture Site ABG pH ABG pCO2 ABG pO2 ABG PO2/FiO2 Ratio ABG HCO3 ABG O2 Saturation ABG O2 Content ABG Base Excess A-a Gradient Oxyhemoglobin Carboxyhemoglobin Methemoglobin Reduced Hemoglobin Total Hemoglobin O2 Delivery Device O2 Liters/Min Minute Volume Vent Rate Vent Mode FiO2 Tidal Volume PEEP Peak Inspir Pressure Pressure Support Sodium Potassium Chloride Carbon Dioxide Anion Gap BUN Creatinine Estim Creat Clear Calc Estimated GFR Glucose POC Capillary Glucose 236 H 229 H Calcium Phosphorus Magnesium Total Bilirubin AST ALT Alkaline Phosphatase Ammonia Total Protein Albumin Stl Occult Blood (IFOB) Positive H 03/30/24 03/30/24 03/30/24 00:13 04:31 05:03 WBC RBC Hgb Hct MCV MCH MCHC RDW Plt Count MPV Immature Gran % (Auto) Neut % (Auto) Lymph % (Auto) [place] % (Auto) Eos % (Auto) Baso % (Auto) Lymph # (Auto) [place] # (Auto) Eos # (Auto) Baso # (Auto) Abs Immat Gran (auto) Absolute Neuts (auto) Absolute Nucleated RBC Nucleated RBC % Puncture Site Right radial ABG pH 7.478 H ABG pCO2 41.4 ABG pO2 96.2 ABG PO2/FiO2 Ratio 3.21 ABG HCO3 30.0 H ABG O2 Saturation 97.7 ABG O2 Content 13.1 L ABG Base Excess 5.9 A-a Gradient 69.1 Oxyhemoglobin 96.8 Carboxyhemoglobin 0.8 Methemoglobin 0.1 Reduced Hemoglobin 2.3 Total Hemoglobin 9.5 L O2 Delivery Device Ventilator O2 Liters/Min Not Reportable Minute Volume Not Reportable Vent Rate 16 Vent Mode Cmv FiO2 30 Tidal Volume 380 PEEP 8 Peak Inspir Pressure Not Reportable Pressure Support Not Reportable Sodium Potassium Chloride Carbon Dioxide Anion Gap BUN Creatinine Estim Creat Clear Calc Estimated GFR Glucose POC Capillary Glucose 239 H 238 H Calcium Phosphorus Magnesium Total Bilirubin AST ALT Alkaline Phosphatase Ammonia Total Protein Albumin Stl Occult Blood (IFOB) 03/30/24 03/30/24 03/30/24 06:11 06:12 07:17 WBC 5.9 RBC 3.02 L Hgb 8.6 L Hct 28.0 L MCV 92.7 MCH 28.5 MCHC 30.7 L RDW 18.0 H Plt Count 146 L MPV 10.2 Immature Gran % (Auto) 1.4 H Neut % (Auto) 61.1 Lymph % (Auto) 22.5 [place] % (Auto) 10.3 H Eos % (Auto) 4.4 Baso % (Auto) 0.3 Lymph # (Auto) 1.33 [place] # (Auto) 0.6 Eos # (Auto) 0.3 Baso # (Auto) 0.0 Abs Immat Gran (auto) 0.08 H Absolute Neuts (auto) 3.6 Absolute Nucleated RBC 0.000 Nucleated RBC % 0.0 Puncture Site ABG pH ABG pCO2 ABG pO2 ABG PO2/FiO2 Ratio ABG HCO3 ABG O2 Saturation ABG O2 Content ABG Base Excess A-a Gradient Oxyhemoglobin Carboxyhemoglobin Methemoglobin Reduced Hemoglobin Total Hemoglobin O2 Delivery Device O2 Liters/Min Minute Volume Vent Rate Vent Mode FiO2 Tidal Volume PEEP Peak Inspir Pressure Pressure Support Sodium 142 Potassium 3.8 Chloride 106 Carbon Dioxide 32 H Anion Gap 4 BUN 35 H Creatinine 0.80 Estim Creat Clear Calc 79 Estimated GFR > 60 Glucose 233 H POC Capillary Glucose 234 H Calcium 8.4 Phosphorus 3.1 Magnesium 2.1 Total Bilirubin 0.3 AST 36 ALT 24 Alkaline Phosphatase 107 Ammonia < 9 L Total Protein 6.0 L Albumin 2.7 L Stl Occult Blood (IFOB) 03/30/24 12:04 WBC RBC Hgb Hct MCV MCH MCHC RDW Plt Count MPV Immature Gran % (Auto) Neut % (Auto) Lymph % (Auto) [place] % (Auto) Eos % (Auto) Baso % (Auto) Lymph # (Auto) [place] # (Auto) Eos # (Auto) Baso # (Auto) Abs Immat Gran (auto) Absolute Neuts (auto) Absolute Nucleated RBC Nucleated RBC % Puncture Site ABG pH ABG pCO2 ABG pO2 ABG PO2/FiO2 Ratio ABG HCO3 ABG O2 Saturation ABG O2 Content ABG Base Excess A-a Gradient Oxyhemoglobin Carboxyhemoglobin Methemoglobin Reduced Hemoglobin Total Hemoglobin O2 Delivery Device O2 Liters/Min Minute Volume Vent Rate Vent Mode FiO2 Tidal Volume PEEP Peak Inspir Pressure Pressure Support Sodium Potassium Chloride Carbon Dioxide Anion Gap BUN Creatinine Estim Creat Clear Calc Estimated GFR Glucose POC Capillary Glucose 251 H Calcium Phosphorus Magnesium Total Bilirubin AST ALT Alkaline Phosphatase Ammonia Total Protein Albumin Stl Occult Blood (IFOB)
[2024-03-30] MEDS: dexmedeTOMIDine 400 MCG/100 ML 400 MCG/100 ML BAG IV CONT (14:46)
[2024-03-30 16:07] LABS: Glucose Point of Care 271 mg/dl (65-105)
[2024-03-30 17:08] LABS: Glucose Point of Care 276 mg/dl (65-105)
[2024-03-30 20:37] LABS: Glucose Point of Care 233 mg/dl (65-105)
[2024-03-31] VITALS (39 sets, daily range): BP systolic 96–144; BP diastolic 52–71; PULSE 66–117; RESP 16–29; TEMP 35.7–37.5; O2SAT 94–98
[2024-03-31] MEDS: INSULIN ASPART (*BKC) 100 UNITS/ML SUB-Q ×5 (00:55→21:01)
[2024-03-31 01:05] LABS: Glucose Point of Care 243 mg/dl (65-105)
[2024-03-31] MEDS: dexmedeTOMIDine 400 MCG/100 ML 400 MCG/100 ML BAG 9.25 MCG IV CONT ×2 (02:06→11:06)
[2024-03-31] MEDS: IPRATROPIUM 0.5 MG/ALBUTEROL SULFATE 2.5 MG AMPUL.NEB 3 ML INHALATION ×4 (02:38→20:18)
[2024-03-31 04:55] LABS: Glucose Point of Care 218 mg/dl (65-105)
[2024-03-31] MEDS: CENTRAL LINE FLUSH 10 ML IV PUSH ×3 (06:09→21:02)
[2024-03-31 06:15] LABS: Basophils Percent Auto 0.3 % (0.2-1.2); Eosinophils Absolute Auto 0.2 K/mm3 (0-0.3); Eosinophils Percent Auto 2.6 % (0-4.4); Immature Granulocyte Absolute 0.05 K/mm3 (0.00-0.031); Immature Granulocyte Percent A 0.7 % (0-0.5); Lymphocytes Absolute Auto 1.42 K/mm3 (0.9-3.2); Lymphocytes Percent Auto 19.8 % (18.3-44.2); Mean Corpuscular Hemoglobin 28.4 pg (26-34); Mean Corpuscular Volume 91.5 fl (80-100); Mean Platelet Volume 10.1 fl (7.4-10.4); Monocytes Absolute Auto 0.7 K/mm3 (0.1-0.6); Monocytes Percent Auto 9.5 % (2.6-8.5); Neutrophils Absolute Auto 4.8 K/mm3 (1.3-6.7); Neutrophils Percent Auto 67.1 % (45.5-73.1); Platelet Count Result 158 k/mm3 (150-375); Red Blood Count 3.17 M/mm3 (4.6-6.20); Red Cell Distribution Width 17.7 % (11.5-14.5); White Blood Count 7.2 K/mm3 (4.5-10.0)
[2024-03-31 06:24] LABS: Alanine Aminotransferase 23 U/L (6-50); Albumin Level 2.8 g/dL (3.5-5.1); Alkaline Phosphatase 112 U/L (38-126); Anion Gap 5 mmol/L (4-12); Aspartate Amino Transferase 29 U/L (17-59); Bilirubin,Total 0.5 mg/dL (0.2-1.3); Blood Urea Nitrogen 33 mg/dL (9-20); Calcium 8.6 mg/dL (8.4-10.2); Carbon Dioxide 31 mmol/L (22-30); Chloride 107 mmol/L (98-107); Estimated CRCL calculation 90 ml/min; Estimated Glomerular Filt Rate > 60; Glucose 233 mg/dL (65-110); Phosphorus 3.5 mg/dL (2.5-4.5); Potassium 3.9 mmol/L (3.4-5.0); Sodium 143 mmol/L (137-145)
--- NOTE | 2024-03-31 07:45 | WPDCN ---
Assessment and Plan Assessment and plan (1) Respiratory failure: Code(s): J96.90 - Respiratory failure, unspecified, unspecified whether with hypoxia or hypercapnia Status: Acute Plan Plan for Tracheostomy today in OR. Consent was obtained and signed last week on Sunday. Risks of surgery include bleeding, infection, tracheocutaneous fistula, failure to remove, malfunction of tube leading to loss of airway and potential . HPI Data of Consult Date/Time: 03/31/24 07:45 Requesting Physician: Yazmin Strange MD Primary Care Provider: Bernardino Gaviria MD Consult Narrative Reason for consult: Tracheostomy Narrative: Bryan Dunaway is a 68 year old male with hx of sepsis, cardiac arrest, r BKA and respiratory failure and has failed extubation due to deconditioning. ENT consulted for tracheosotmy. Review of Systems Review of Systems: ROS unobtainable: Yes unobtainable due to endotracheal tube PMFSH Past Medical History Medical History Alcohol abuse has abstained for many years Chronic obstructive pulmonary disease COPD (chronic obstructive pulmonary disease) Coronary artery disease COVID-19 Depression Hip fracture, right History of alcoholism HTN (hypertension) Insomnia Peripheral neuropathy Peripheral vascular disease Type 2 diabetes mellitus Surgical History Surgical History History of appendectomy History of coronary artery stent placement History of hip surgery Reconstruction of the right femur History of open reduction and internal fixation (ORIF) procedure repair right femur fracture History of surgery on lower extremity History of tonsillectomy Family History Family History Father Cancer Mother Heart attack Father Cancer Mother Acute myocardial infarction Grandparent 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 Social History Social History Social History: Patient resides at [facility]. He has lived there for the past 7 years. Quit tobacco 12 years ago after smoking 1-1.5 packs per times 30+ years. He has been twice. History of alcoholism but sober for the past 7+ years. History of drug use with cocaine but denies history of IV drug use. He is a full code. He nominated his niece Flaca Abreu be the individual would make medical decisions for him if he is unable. He does have 1 son named Ricky. Smoking status: Former smoker Alcohol intake: former Substance use: former Substance use type: does not use and marijuana Do You Feel Safe in your Home?: Yes Lack of Transportation: No Lack of Food: Never True Current Housing: I Have Housing Concerned About Future Housing: No Difficulty Paying Gas/Electric Bills: No Difficulty Paying for Meds: No Currently Unemployed: No Education: Trade/Vocational Certificate Difficulty w/ Childcare or Family Care: No Living arrangements: penitentiary Additional living arrangements comments: Pt lives at [facility]. Additional occupation/education comments: Disabled. Spiritual care concerns: No Meds Home Medications and Allergies Home Medications Medication Instructions Recorded Confirmed Type albuterol sulfate 90 mcg/actuation 2 puff inhalation QID #8.5 grams 05/11/19 07/17/20 Rx aerosol inhaler budesonide-formoterol HFA 160 2 puff inhalation Q12H 07/17/20 07/17/20 History mcg-4.5 mcg/actuation aerosol inhaler (Symbicort) calcium carbonate (Tums) 200 mg PO QID PRN Indigestion 07/17/20 07/17/20 History cholecalciferol (vitamin D3) 25 25 mcg PO DAILY 07/17/20 07/17/20 History mcg (1,000 unit) tablet citalopram 20 mg tablet (Celexa) 20 mg PO DAILY 07/17/20 07/17/20 History fluticasone propionate 50 2 spray intranasal DAILY 07/17/20 07/17/20 History mcg/actuation nasal spray,suspension metoprolol succinate 50 mg 50 mg PO DAILY 07/17/20 07/17/20 History tablet,extended release 24 hr zolpidem 10 mg tablet 10 mg PO HS 07/17/20 07/17/20 History aspirin 81 mg chewable tablet 81 mg PO DAILY@0800 #30 tabs 07/19/20 Rx (Children's Aspirin) canagliflozin 100 mg tablet 100 mg PO DAILY@0800 #30 tabs 07/19/20 Rx (Invokana) losartan 25 mg tablet 25 mg PO DAILY #30 tabs 07/19/20 Rx metformin 500 mg tablet 500 mg PO BIDWM #60 tabs 07/19/20 Rx (Glucophage) miconazole nitrate 2 % topical 1 applic topical Q12HR #30 grams 07/19/20 Rx cream rosuvastatin 10 mg tablet (Crestor) 20 mg PO DAILY #30 tabs 07/19/20 Rx ticagrelor 90 mg tablet (Brilinta) 90 mg PO Q12HR #60 tabs 07/19/20 Rx Flonase 2 inh EACH NARE DAILY 02/28/24 02/28/24 History acetaminophen 325 mg tablet 650 mg PO TID 02/28/24 02/28/24 History albuterol sulfate 90 mcg/actuation 2 inh inhalation Q4H PRN Shortness 02/28/24 02/28/24 History aerosol inhaler Of Breath Or Wheezing aspirin 81 mg chewable tablet 81 mg PO DAILY 02/28/24 02/28/24 History (Aspirin Childrens) budesonide-formoterol HFA 160 2 puff inhalation Q12H 02/28/24 02/28/24 History mcg-4.5 mcg/actuation aerosol inhaler (Symbicort) calcium carbonate (Calcium Antacid) 400 mg PO Q6H heartburn 02/28/24 02/28/24 History dapagliflozin propanediol 5 mg 10 mg PO DAILY 02/28/24 02/28/24 History tablet (Farxiga) docusate sodium 100 mg capsule 100 mg PO Q12H 02/28/24 02/28/24 History (Colace) glucagon 1 mg/0.2 mL subcutaneous 1 mg subcut PRN PRN Hypoglycemia 02/28/24 02/28/24 History auto-injector (Gvoke HypoPen 1-Pack) guaifenesin 400 mg tablet 400 mg PO Q6H PRN Cough 02/28/24 02/28/24 History insulin aspart U-100 100 unit/mL 7 unit subcut AC 02/28/24 02/28/24 History subcutaneous solution insulin glargine-yfgn 100 unit/mL 55 unit subcut HS 02/28/24 02/28/24 History (3 mL) subcutaneous pen lanolin alcohols-mineral 1 applic topical Q12H 02/28/24 02/28/24 History oil-w.petrolatum-ceresin topical cream (Eucerin topical cream) losartan 25 mg tablet 25 mg PO DAILY 02/28/24 02/28/24 History metformin 500 mg tablet 500 mg PO BID 02/28/24 02/28/24 History metoprolol succinate 50 mg 50 mg PO DAILY 02/28/24 02/28/24 History tablet,extended release 24 hr multivit with minerals-iron 18 1 tablet PO DAILY 02/28/24 02/28/24 History mg-folic ac 400 mcg-vit K 25 mcg tablet (Adults Multivitamin) polyethylene glycol 3350 17 gram 17 g PO DAILY PRN Constipation 02/28/24 02/28/24 History oral powder packet (Miralax) rosuvastatin 20 mg tablet 20 mg PO DAILY 02/28/24 02/28/24 History ticagrelor 60 mg tablet (Brilinta) 60 mg PO Q12H 02/28/24 02/28/24 History trazodone 50 mg tablet 25 mg PO HS 02/28/24 02/28/24 History Allergies Allergy/AdvReac Type Severity Reaction Status Date / Time No Known Allergies Allergy Verified 02/29/24 12:35 Vital Signs Vital Signs - 24 hr 03/30/24 08:00 03/30/24 08:04 03/30/24 08:07 Temperature 37.3 C Pulse Rate 105 H 105 H 104 H Respiratory Rate 16 16 Blood Pressure 136/67 Pulse Oximetry 98 98 Oxygen Delivery Mechanical Ventilation Fraction of Inspired Oxygen 30 03/30/24 08:13 03/30/24 08:00 03/30/24 08:00 Temperature Pulse Rate 107 H Respiratory Rate 18 Blood Pressure Pulse Oximetry 96 Oxygen Delivery Mechanical Ventilation Fraction of Inspired Oxygen 30 30 03/30/24 10:28 03/30/24 08:00 03/30/24 10:00 Temperature Pulse Rate 113 H 106 H 108 H Respiratory Rate Blood Pressure Pulse Oximetry 97 Oxygen Delivery Mechanical Ventilation Fraction of Inspired Oxygen 30 03/30/24 10:00 03/30/24 12:00 03/30/24 12:00 Temperature 37.4 C Pulse Rate 108 H 105 H Respiratory Rate 16 Blood Pressure 141/66 H Pulse Oximetry 96 97 Oxygen Delivery Mechanical Ventilation Fraction of Inspired Oxygen 30 03/30/24 12:00 03/30/24 12:00 03/30/24 14:00 Temperature 37.4 C Pulse Rate 105 H 114 H Respiratory Rate 17 Blood Pressure 134/85 Pulse Oximetry 97 Oxygen Delivery Fraction of Inspired Oxygen 30 03/30/24 14:00 03/30/24 14:46 03/30/24 14:59 Temperature 37.5 C Pulse Rate 114 H 118 H 122 H Respiratory Rate 20 22 H 26 H Blood Pressure 167/86 H Pulse Oximetry 97 Oxygen Delivery Fraction of Inspired Oxygen 03/30/24 15:00 03/30/24 16:00 03/30/24 16:00 Temperature 37.5 C Pulse Rate 122 H 110 H 110 H Respiratory Rate 18 18 Blood Pressure 154/84 H Pulse Oximetry 96 97 Oxygen Delivery Mechanical Ventilation Fraction of Inspired Oxygen 30 03/30/24 16:00 03/30/24 17:09 03/30/24 17:00 Temperature Pulse Rate 112 H 114 H Respiratory Rate 21 H Blood Pressure Pulse Oximetry 100 Oxygen Delivery Mechanical Ventilation Fraction of Inspired Oxygen 30 30 03/30/24 16:00 03/30/24 18:00 03/30/24 16:00 Temperature 37.7 C H Pulse Rate 110 H 109 H Respiratory Rate 21 H Blood Pressure 152/76 H Pulse Oximetry 95 Oxygen Delivery Mechanical Ventilation Fraction of Inspired Oxygen 30 03/30/24 18:00 03/30/24 18:00 03/30/24 20:40 Temperature Pulse Rate 110 H 110 H 83 Respiratory Rate 22 H 16 Blood Pressure Pulse Oximetry Oxygen Delivery Fraction of Inspired Oxygen 03/30/24 20:52 03/30/24 20:55 03/30/24 20:00 Temperature Pulse Rate 83 83 84 Respiratory Rate 16 16 Blood Pressure Pulse Oximetry 96 Oxygen Delivery Mechanical Ventilation Fraction of Inspired Oxygen 30 03/30/24 22:00 03/30/24 23:50 03/31/24 00:00 Temperature Pulse Rate 88 89 86 Respiratory Rate 16 16 Blood Pressure Pulse Oximetry 97 Oxygen Delivery Mechanical Ventilation Fraction of Inspired Oxygen 30 03/30/24 20:00 03/31/24 02:06 03/31/24 02:06 Temperature Pulse Rate 84 76 76 Respiratory Rate 16 16 16 Blood Pressure Pulse Oximetry 96 Oxygen Delivery Mechanical Ventilation Fraction of Inspired Oxygen 30 03/30/24 20:00 03/30/24 20:00 03/30/24 20:00 Temperature 37.6 C H Pulse Rate 70 70 Respiratory Rate 16 Blood Pressure 114/61 Pulse Oximetry 96 Oxygen Delivery Fraction of Inspired Oxygen 30 03/30/24 22:00 03/30/24 22:00 03/31/24 02:39 Temperature 37.4 C Pulse Rate 88 88 77 Respiratory Rate 16 16 Blood Pressure 119/65 Pulse Oximetry 96 Oxygen Delivery Fraction of Inspired Oxygen 03/31/24 02:40 03/31/24 02:55 03/31/24 00:00 Temperature Pulse Rate 82 81 86 Respiratory Rate 16 16 Blood Pressure Pulse Oximetry 97 95 Oxygen Delivery Mechanical Ventilation Mechanical Ventilation Fraction of Inspired Oxygen 30 30 03/31/24 00:00 03/31/24 00:00 03/31/24 00:00 Temperature 37.3 C Pulse Rate 86 86 Respiratory Rate 16 Blood Pressure 115/61 Pulse Oximetry 95 Oxygen Delivery Fraction of Inspired Oxygen 30 03/31/24 02:00 03/31/24 02:00 03/31/24 04:00 Temperature 37.3 C Pulse Rate 83 83 75 Respiratory Rate 16 16 Blood Pressure 113/67 Pulse Oximetry 95 Oxygen Delivery Fraction of Inspired Oxygen 03/31/24 05:54 03/31/24 06:00 03/31/24 04:00 Temperature Pulse Rate 76 78 86 Respiratory Rate 16 16 Blood Pressure Pulse Oximetry 96 95 Oxygen Delivery Mechanical Ventilation Mechanical Ventilation Fraction of Inspired Oxygen 30 30 03/31/24 04:00 03/31/24 04:00 03/31/24 04:00 Temperature 37.2 C Pulse Rate 75 75 Respiratory Rate 16 Blood Pressure 96/52 L Pulse Oximetry 95 Oxygen Delivery Fraction of Inspired Oxygen 30 03/31/24 06:00 03/31/24 06:00 03/31/24 07:26 Temperature Pulse Rate 74 74 69 Respiratory Rate 16 16 Blood Pressure 106/60 Pulse Oximetry 96 Oxygen Delivery Fraction of Inspired Oxygen 03/31/24 07:30 03/31/24 07:37 Temperature Pulse Rate 96 68 Respiratory Rate 16 Blood Pressure Pulse Oximetry 68 L Oxygen Delivery Mechanical Ventilation Fraction of Inspired Oxygen 30 Exam Narrative: Intubated, sedated. Neck without lesion or mass, trachea midline, no adenopathy. Rest of ENT exam unremarkable. Results Labs 03/31/24 06:04 03/31/24 06:04 Labs: Short CBC 03/31/24 Range/Units 06:04 WBC 7.2 (4.5-10.0) K/mm3 Hgb 9.0 L (14.0-18.0) g/dL Hct 29.0 L (42.0-52.0) % Plt Count 158 (150-375) k/mm3 BMP 03/31/24 06:04 Sodium 143 Potassium 3.9 Chloride 107 Carbon Dioxide 31 H BUN 33 H Creatinine 0.70 Glucose 233 H Calcium 8.6 Liver Function 03/31/24 Range/Units 06:04 Total Bilirubin 0.5 (0.2-1.3) mg/dL AST 29 (17-59) U/L ALT 23 (6-50) U/L Alkaline Phosphatase 112 (38-126) U/L Albumin 2.8 L (3.5-5.1) g/dL
[2024-03-31 08:01] LABS: Glucose Point of Care 224 mg/dl (65-105)
[2024-03-31] MEDS: PANTOPRAZOLE SODIUM IV 40 MG VIAL IV PUSH ×2 (09:14→20:57)
[2024-03-31] MEDS: MINERAL OIL/WHITE PETROLATUM OINTMENT 1 APPLIC EACH EYE ×2 (09:15→20:57)
--- NOTE | 2024-03-31 10:47 | W.PM.PROC2 ---
Procedure Note - Detailed Date of Procedure 03/31/24 Pre-op Diagnosis Respiratory failure Post-op Diagnosis Same Procedure Performed Tracheostomy Surgeon Asim Vasquez MD Anesthesia General Indications respiratory failure Description of Procedure The patient was previously consented by family. They were then brought back to the OR and induced with anesthesia through the endotracheal tube. They were then transferred to the OR table. A shoulder roll was placed. Landmarks were palpated and marked. A timeout was performed. An 8-0 DCT cuffed shiley tracheostomy tube was selected and tested. The patient was prepped and drapped in the usual sterile fashion for an tracheotostomy. A horizontal incision was made along the marked line 1-2 cm above the suprasternal notch. Dissection was carried down in the midline through subcutaneous tissues using a hemostat and retraction by vein retractor and then [employer] retractors. The strap muscles were identified and divided using a combination of blunt dissection through the median raphe and electrocautery. The thyroid isthmus was encounted and divided using electrocautery and retracted. The trachea was encountered. A cricoid hook was placed to stabilize and elevate the trachea. The tracheostomy tube was tested on the field and showed no leak. After confirmation with anesthesia and the deburr technician ensuring FiO2 was acceptable an #11 blade was used to make a horizontal incision into the trachea. Heavy scissors were used to make parallel vertical cuts laterally through the second ring. The endotracheal tube was pulled. The tracheostomy tube was placed and successfully hooked up the circuit. Unfortunately there was air leak. The trachea had calcified rings and likely tore the cuff. The trach was removed and a 6-0 trach was placed, and also tore the cuff. The trach was removed, the tracheostomy was revised slightly to be larger and then the 6-0 cuffed trach was successfully placed without tearing the cuff. The airway was stabilized and verified by anesthesia. The cricoid/tracheal hook was carefully removed. The tracheotomy tube was then secured with 0 silk sutures placed at each corner of the trach tube and the underlying skin. A tracheal tie was then placed. This ended this portion of the procedure and care of the patient was returned to anesthesia who recovered him in the ICU. Asim Vasquez M.D. Estimated Blood Loss 5 Drains No Packing No Pathology None sent Complications No immediate complications Condition Critical Disposition ICU
--- NOTE | 2024-03-31 11:05 | P.PNAN_ITS ---
Anes - Initial Pre Proc Eval Procedure: Operation Date: 02/29/24 13:00 Proposed Procedures p Right Below Knee Amputation(Right) - Jasson Johns MD Operation Date: 03/05/24 13:45 Proposed Procedures p Right Below Knee Amputation - Jasson Johns MD Operation Date: 03/24/24 15:00 Proposed Procedures p Percutaneous Endoscopic Gastrostomy - Krish Almaraz MD Operation Date: 03/31/24 12:00 Proposed Procedures p Tracheostomy - Asim Vasquez MD Date/Time: 03/31/24 11:05 Surgeon: Yazmin Strange MD Pre Op Diagnosis: Necrotic R Foot Wound/Osteintekutus/DM Patient Data Age: 68 Gender: M Height: 1.78 m Weight: 89.3 kg Last Vital Signs Temp 97.2 F L 03/31/24 10:00 Pulse 71 03/31/24 10:00 Resp 16 03/31/24 10:00 BP 120/64 03/31/24 10:00 Pulse Ox 97 03/31/24 10:00 O2 Del Method Mechanical Ventilation 03/31/24 07:30 O2 Flow Rate 2 03/22/24 12:00 FiO2 30 03/31/24 07:30 Allergies Allergy/AdvReac Type Severity Reaction Status Date / Time No Known Allergies Allergy Verified 02/29/24 12:35 Home Medications Medication Instructions Recorded Confirmed Type albuterol sulfate 90 mcg/actuation 2 puff inhalation QID #8.5 grams 05/11/19 07/17/20 Rx aerosol inhaler budesonide-formoterol HFA 160 2 puff inhalation Q12H 07/17/20 07/17/20 History mcg-4.5 mcg/actuation aerosol inhaler (Symbicort) calcium carbonate (Tums) 200 mg PO QID PRN Indigestion 07/17/20 07/17/20 History cholecalciferol (vitamin D3) 25 25 mcg PO DAILY 07/17/20 07/17/20 History mcg (1,000 unit) tablet citalopram 20 mg tablet (Celexa) 20 mg PO DAILY 07/17/20 07/17/20 History fluticasone propionate 50 2 spray intranasal DAILY 07/17/20 07/17/20 History mcg/actuation nasal spray,suspension metoprolol succinate 50 mg 50 mg PO DAILY 07/17/20 07/17/20 History tablet,extended release 24 hr zolpidem 10 mg tablet 10 mg PO HS 07/17/20 07/17/20 History aspirin 81 mg chewable tablet 81 mg PO DAILY@0800 #30 tabs 07/19/20 Rx (Children's Aspirin) canagliflozin 100 mg tablet 100 mg PO DAILY@0800 #30 tabs 07/19/20 Rx (Invokana) losartan 25 mg tablet 25 mg PO DAILY #30 tabs 07/19/20 Rx metformin 500 mg tablet 500 mg PO BIDWM #60 tabs 07/19/20 Rx (Glucophage) miconazole nitrate 2 % topical 1 applic topical Q12HR #30 grams 07/19/20 Rx cream rosuvastatin 10 mg tablet (Crestor) 20 mg PO DAILY #30 tabs 07/19/20 Rx ticagrelor 90 mg tablet (Brilinta) 90 mg PO Q12HR #60 tabs 07/19/20 Rx Flonase 2 inh EACH NARE DAILY 02/28/24 02/28/24 History acetaminophen 325 mg tablet 650 mg PO TID 02/28/24 02/28/24 History albuterol sulfate 90 mcg/actuation 2 inh inhalation Q4H PRN Shortness 02/28/24 02/28/24 History aerosol inhaler Of Breath Or Wheezing aspirin 81 mg chewable tablet 81 mg PO DAILY 02/28/24 02/28/24 History (Aspirin Childrens) budesonide-formoterol HFA 160 2 puff inhalation Q12H 02/28/24 02/28/24 History mcg-4.5 mcg/actuation aerosol inhaler (Symbicort) calcium carbonate (Calcium Antacid) 400 mg PO Q6H heartburn 02/28/24 02/28/24 History dapagliflozin propanediol 5 mg 10 mg PO DAILY 02/28/24 02/28/24 History tablet (Farxiga) docusate sodium 100 mg capsule 100 mg PO Q12H 02/28/24 02/28/24 History (Colace) glucagon 1 mg/0.2 mL subcutaneous 1 mg subcut PRN PRN Hypoglycemia 02/28/24 02/28/24 History auto-injector (Gvoke HypoPen 1-Pack) guaifenesin 400 mg tablet 400 mg PO Q6H PRN Cough 02/28/24 02/28/24 History insulin aspart U-100 100 unit/mL 7 unit subcut AC 02/28/24 02/28/24 History subcutaneous solution insulin glargine-yfgn 100 unit/mL 55 unit subcut HS 02/28/24 02/28/24 History (3 mL) subcutaneous pen lanolin alcohols-mineral 1 applic topical Q12H 02/28/24 02/28/24 History oil-w.petrolatum-ceresin topical cream (Eucerin topical cream) losartan 25 mg tablet 25 mg PO DAILY 02/28/24 02/28/24 History metformin 500 mg tablet 500 mg PO BID 02/28/24 02/28/24 History metoprolol succinate 50 mg 50 mg PO DAILY 02/28/24 02/28/24 History tablet,extended release 24 hr multivit with minerals-iron 18 1 tablet PO DAILY 02/28/24 02/28/24 History mg-folic ac 400 mcg-vit K 25 mcg tablet (Adults Multivitamin) polyethylene glycol 3350 17 gram 17 g PO DAILY PRN Constipation 02/28/24 02/28/24 History oral powder packet (Miralax) rosuvastatin 20 mg tablet 20 mg PO DAILY 02/28/24 02/28/24 History ticagrelor 60 mg tablet (Brilinta) 60 mg PO Q12H 02/28/24 02/28/24 History trazodone 50 mg tablet 25 mg PO HS 02/28/24 02/28/24 History Laboratory Tests 03/30/24 03/30/24 03/30/24 12:04 16:04 17:01 WBC RBC Hgb Hct MCV MCH MCHC RDW Plt Count MPV Immature Gran % (Auto) Neut % (Auto) Lymph % (Auto) Cameron % (Auto) Eos % (Auto) Baso % (Auto) Lymph # (Auto) Cameron # (Auto) Eos # (Auto) Baso # (Auto) Abs Immat Gran (auto) Absolute Neuts (auto) Absolute Nucleated RBC Nucleated RBC % Sodium Potassium Chloride Carbon Dioxide Anion Gap BUN Creatinine Estim Creat Clear Calc Estimated GFR Glucose POC Capillary Glucose 251 H mg/dl 271 H mg/dl 276 H mg/dl (65-105) (65-105) (65-105) Calcium Phosphorus Magnesium Total Bilirubin AST ALT Alkaline Phosphatase Total Protein Albumin 03/30/24 03/31/24 03/31/24 20:32 00:48 04:53 WBC RBC Hgb Hct MCV MCH MCHC RDW Plt Count MPV Immature Gran % (Auto) Neut % (Auto) Lymph % (Auto) Cameron % (Auto) Eos % (Auto) Baso % (Auto) Lymph # (Auto) Cameron # (Auto) Eos # (Auto) Baso # (Auto) Abs Immat Gran (auto) Absolute Neuts (auto) Absolute Nucleated RBC Nucleated RBC % Sodium Potassium Chloride Carbon Dioxide Anion Gap BUN Creatinine Estim Creat Clear Calc Estimated GFR Glucose POC Capillary Glucose 233 H mg/dl 243 H mg/dl 218 H mg/dl (65-105) (65-105) (65-105) Calcium Phosphorus Magnesium Total Bilirubin AST ALT Alkaline Phosphatase Total Protein Albumin 03/31/24 03/31/24 06:04 07:58 WBC 7.2 K/mm3 (4.5-10.0) RBC 3.17 L M/mm3 (4.6-6.20) Hgb 9.0 L g/dL (14.0-18.0) Hct 29.0 L % (42.0-52.0) MCV 91.5 fl (80-100) MCH 28.4 pg (26-34) MCHC 31.0 L g/dl (32-36) RDW 17.7 H % (11.5-14.5) Plt Count 158 k/mm3 (150-375) MPV 10.1 fl (7.4-10.4) Immature Gran % (Auto) 0.7 H % (0-0.5) Neut % (Auto) 67.1 % (45.5-73.1) Lymph % (Auto) 19.8 % (18.3-44.2) Cameron % (Auto) 9.5 H % (2.6-8.5) Eos % (Auto) 2.6 % (0-4.4) Baso % (Auto) 0.3 % (0.2-1.2) Lymph # (Auto) 1.42 K/mm3 (0.9-3.2) Cameron # (Auto) 0.7 H K/mm3 (0.1-0.6) Eos # (Auto) 0.2 K/mm3 (0-0.3) Baso # (Auto) 0.0 K/mm3 (0.0-0.1) Abs Immat Gran (auto) 0.05 H K/mm3 (0.00-0.031) Absolute Neuts (auto) 4.8 K/mm3 (1.3-6.7) Absolute Nucleated RBC 0.000 K/mm3 (0.0-0.012) Nucleated RBC % 0.0 % (0.0-0.2) Sodium 143 mmol/L (137-145) Potassium 3.9 mmol/L (3.4-5.0) Chloride 107 mmol/L (98-107) Carbon Dioxide 31 H mmol/L (22-30) Anion Gap 5 mmol/L (4-12) BUN 33 H mg/dL (9-20) Creatinine 0.70 mg/dL (0.7-1.3) Estim Creat Clear Calc 90 ml/min Estimated GFR > 60 (59 - ) Glucose 233 H mg/dL (65-110) POC Capillary Glucose 224 H mg/dl (65-105) Calcium 8.6 mg/dL (8.4-10.2) Phosphorus 3.5 mg/dL (2.5-4.5) Magnesium 2.0 mg/dL (1.6-2.3) Total Bilirubin 0.5 mg/dL (0.2-1.3) AST 29 U/L (17-59) ALT 23 U/L (6-50) Alkaline Phosphatase 112 U/L (38-126) Total Protein 6.0 L g/dL (6.3-8.2) Albumin 2.8 L g/dL (3.5-5.1) Patient hx anesthesia problems: none Family hx anesthesia problems: none Results Review: All pre-operative results and documents have been reviewed as part of the pre- operative evaluation. [facility] Past Medical History Medical History Alcohol abuse has abstained for many years Chronic obstructive pulmonary disease COPD (chronic obstructive pulmonary disease) Coronary artery disease COVID-19 Depression Hip fracture, right History of alcoholism HTN (hypertension) Insomnia Peripheral neuropathy Peripheral vascular disease Type 2 diabetes mellitus Surgical History Surgical History History of appendectomy History of coronary artery stent placement History of hip surgery Reconstruction of the right femur History of open reduction and internal fixation (ORIF) procedure repair right femur fracture History of surgery on lower extremity History of tonsillectomy Family History Family History Father Cancer Mother Heart attack Father Cancer Mother Acute myocardial infarction Grandparent 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 Social History Social History Social History: Patient resides at [facility]. He has lived there for the past 7 years. Quit tobacco 12 years ago after smoking 1-1.5 packs per times 30+ years. He has been twice. History of alcoholism but sober for the past 7+ years. History of drug use with cocaine but denies history of IV drug use. He is a full code. He nominated his niece Flaca Abreu be the individual would make medical decisions for him if he is unable. He does have 1 son named Ricky. Smoking status: Former smoker Alcohol intake: former Substance use: former Substance use type: does not use and marijuana Do You Feel Safe in your Home?: Yes Lack of Transportation: No Lack of Food: Never True Current Housing: I Have Housing Concerned About Future Housing: No Difficulty Paying Gas/Electric Bills: No Difficulty Paying for Meds: No Currently Unemployed: No Education: Trade/Vocational Certificate Difficulty w/ Childcare or Family Care: No Living arrangements: assisted Additional living arrangements comments: Pt lives at [facility]. Additional occupation/education comments: Disabled. Spiritual care concerns: No Anes - Eval Final PreProcedure Day of Procedure 03/31/24 11:05 Patient weight: overweight Heart: regular rate and rhythm Lungs: clear to auscultation and decreased breath sounds Airway: Mallampati scale Neurological: alert and oriented Last oral intake: >/= 8 hours ASA classification: IV Emergent: no Anesthetic plan: proceed Anesthesia type and monitoring: general ETT and standard monitoring Results Review: All pre-operative results and documents have been reviewed as part of the pre- operative evaluation. All notes reviewed from ICU and subspecialists. Complicated pt now for tracheostomy. Currently oxygenating well w FiO2 30%, PEEP 8. Informed Consent: The patient's anesthetic plan and its attendant risks and benefits were discussed with the patient/family/POA. Questions were solicited and answers provided to the satisfaction of the patient/family/POA.
--- NOTE | 2024-03-31 11:32 | PCFNICU ---
ICU Rounding Note: Pt current nutrition is . Nutrition recommendation: Last recorded weight is 89.3 kg. Bowel Motility: Labs Reviewed: Meds Noted: Skin: Additional Notes: Following daily in ICU rounds. Will monitor weight, labs, skin, tube feedings, meds, every Sunday and Sunday. .
--- NOTE | 2024-03-31 11:32 | PCFNICU ---
ICU Rounding Note: Pt current nutrition is NPO for trach placement. Nutrition recommendation: After procedure, restart tube feeding: Vital AF 1.2 @ 20 ml/h (trickle due to intolerance). Goal is Vital 1.2 @ 60 ml/g (1584 kcal, 99 g protein, 1070 ml free water) Increase 10 ml q 4 hours as tolerated. Advance per MD. Last recorded weight is 89.3 kg. Bowel Motility: +1 BM 03/31/24 Labs Reviewed: Hgb 9.0, Hct 29, Alb 2.8, BUN 33, Glu 244 Meds Noted: Precedex, Reglan to start. Novolog, protonix, Lantus Skin: Stage II to sacrum; R BKA healing Additional Notes: Pt was having some vomiting and high residuals so TF was held. Reglan to restart today. After procedure, TF to restart at trickle and advance to goal as tolerated. Following daily in ICU rounds. Will monitor weight, labs, skin, tube feedings, meds, every Sunday and Sunday. .
--- NOTE | 2024-03-31 12:24 | P.PNINT_ITS ---
Progress Note: A&P Assessment and Plan (1) Acute respiratory failure with hypoxia: Code(s): J96.01 - Acute respiratory failure with hypoxia Status: Acute Assessment and Plan: Acute respiratory failure likely related to cardiac arrest, aspiration pneumonia, NSTEMI, hypoxia, septic shock Worsening likely secondary to ARDS versus pulmonary edema Intubated 02/27 02/28 Chest CTA: Extensive right upper lobe consolidation and more mild right middle lobe consolidation, consistent with pneumonia. Consider aspiration pneumonia.Moderate to large right pleural effusion with complete atelectasis of the right lower lobe. Moderate left pleural effusion with minimal left basilar atelectasis. Small pericardial effusion. No definite acute abnormality in the abdomen or pelvis. Chronic compression fractures, as above . -03/07 right thoracentesis with 1 L fluid removed -03/08 left-sided thoracentesis 550 mL -03/11: patient was in pressure support ventilation 02/18, with decrease tidal volumes in the upper 200s. place patient back on CMV, I have asked the bedside RN to decrease the Precedex infusion once patient is more awake will place back on spontaneous breathing trials 03/12: Place patient on SBT 04/17, low tidal volumes, low respiratory rate. Patient had replaced back on CMV mode of ventilation. -even on ASV patient is breathing only 7-8 times a minute 03/13: Off Precedex infusion overnight, placed patient on pressure support ventilation 04/17, initially did well but not significantly tachycardic and tachypneic and in respiratory distress, patient was placed back on CMV mode of ventilation and low-dose was 03/14 8/5 PSV SBT done for more than 1 hour. RSBI, ABG and Vitals acceptable. Pt awake and following commands. Patient was extubated. Initially patient did well and was on nasal cannula and was able to communicate. Over 12 hours patient became more hypoxic with increased respiratory distress and tachypnea. I spoke to patient post extubation and was agreeable to re-intubation if needed and stated that 'he is not ready to ' and 'do what ever it takes'. He was re intubated at night. I also mentioned to him that he may need tracheostomy and PEG tube placement if he gets we intubated and is not weanable. He told me 'to proceed with it if needed'. Solu-Medrol IV given for airway edema and will be continued for 24 hours -completed course of Solu-Medrol -continue bronchodilators -CT scan shows large pleural effusions bilaterally. I will request IR for thoracentesis.. Patient is on minimal ventilator setting but has failed trials initially multiple times and then once extubated he was reintubated within 12 hours. I will treat try again after thoracentesis to see patient is weanable from the vent otherwise will proceed with trach and PEG as patient has been on ventilator for more than 2 weeks. 03/17 right thoracentesis 1 L fluid was removed 03/18 left thoracentesis 550 mL fluid was removed Will also continue diuretics. 03/19 patient was extubated after weaning trial 03/20 continue nasal cannula, BiPAP p.r.n., hold diuretics, incentive spirometry, spoke to patient after extubation yesterday he is willing to be intubated if needed and proceed with trach and PEG if needed hopefully we can avoid that situation 03/21 patient continues to require BiPAP intermittently and tolerates nasal cannula. He appears quite weak although he does have borderline cough. Cont inue incentive spirometry. P.r.n. BiPAP. BiPAP at night. Nasal cannula as tolerated. Patient remains at risk of requiring intubation. I spoke to patient again and mention that to him and he verbalized understanding by noting his head. I will check chest x-ray. Continue ICU monitoring 03/22 discussed with the patient emphasized importance of using BiPAP for increased work of breathing and at night due to his deconditioning and weakness. He is currently saturating on nasal cannula and appears not in any respiratory distress. later patient deteriorated and required re-intubation 03/23 ABG and chest x-ray. patient has failed extubation twice and has been on ventilator for close to 20 days. Patient is awaiting trach now . ENT consulted ABG and chest x-ray reviewed. Continue mechanical ventilation. 03/29: Off all sedation. Patient opens eyes, follows simple commands with left lower extremity blood pressures have been stable, off pressors -has been responding well to diuresis, chest x-ray continues to show mild pulmonary edema, repeat diuresis again today Tracheostomy scheduled for today 03/31. (2) Elevated LFTs: Code(s): R79.89 - Other specified abnormal findings of blood chemistry Status: Acute Assessment and Plan: 03/13: Significant elevation in LFTs, AST 2280, ALT 988, alk-phos 722 -patient has been hemodynamically stable, no hypotension noted in the last 24-48 hours -statin discontinued. Hold Tylenol -no tenderness in the right upper, lower quadrant or epigastric region on exam -negative vital hepatitis panel, right upper quadrant ultrasound with Doppler negative for hepatic or portal vein thrombosis -patient evaluated by GI -levels now improved. Monitor (3) Cardiac arrest with pulseless electrical activity: Code(s): I46.9 - Cardiac arrest, cause unspecified Status: Acute Assessment and Plan: Cardiac arrest, secondary to unknown etiology. Possible aspiration pneumonia, NSTEMI, hypoxia, septic shock, infection -see code blue sheet for the details -patient currently intubated, -appreciate cardiology following the patient 02/29/2024 echocardiogram Summary 1. Technically difficult study with limited views. 2. Left ventricular chamber dimension is normal. 3. Left ventricular systolic function is mildly reduced, estimated at 45-50%. The apex appears to be hypokinetic. 4. There is mildly increased left ventricular wall thickness. 5. The left ventricular diastolic function is grade I diastolic dysfunction. 6. Right ventricular systolic function is normal. 7. Left atrial chamber dimension is moderately enlarged. 8. There is mild to moderate tricuspid valve regurgitation. 9. There is small anterior pericardial effusion. (4) Septic shock: Code(s): A41.9 - Sepsis, unspecified organism; R65.21 - Severe sepsis with septic shock Status: Acute Assessment and Plan: Resolved Patient in shock, likely related to the gangrene, aspiration pneumonia, status post cardiac arrest 02/28/2024: Blood cultures have been obtained and negative Status post 10 days of antibiotics 03/16 low-grade fever increase in WBC CT scan as above, repeat blood cultures and sputum pending UA suggestive of UTI. Urine cultures pending. Ha has been changed. Completed course of cefepime Off Levophed since 03/29 after discontinuing sedation (5) NSTEMI (non-ST elevated myocardial infarction): Code(s): I21.4 - Non-ST elevation (NSTEMI) myocardial infarction Status: Acute Assessment and Plan: -appreciate cardiology evaluation and recommendation -Continue aspirin, Lovenox and high-dose a statin - beta-brayden, losartan are on hold due to soft blood pressure. -03/02 heparin infusion was discontinued after 48 hours for NSTEMI by cardiology (6) Gangrene of right foot: Code(s): I96 - Gangrene, not elsewhere classified Status: Acute Assessment and Plan: CTA showed peripheral arterial disease with total occlusion of the right anterior and posterior tibial arteries and right peroneal artery with distal reconstitution of peroneal artery. This extensive gangrene of the right foot with gas seen on CT of the foot. General surgery spoke to the patient in the ER on the day of admission on 02/27 patient at that time agreed for below-knee amputation. Plan was to do a below- knee amputation on 02/29/2024 but patient had a cardiac arrest that night secondary to sepsis. Surgery at that time was deferred. Patient now is intubated sedated and unable to sign his consent.. Patient has no family and for many years at the [facility] has had no visitor. He has 1 son which no one has been able to get hold off right several attempts. Considering patient has gangrene of the foot with no vascular supply leading to sepsis and if untreatable lead to his , Dr. Johns will proceed with amputation today, 03/05/2024. Dr. Collins and Dr. Johns has signed 2 physician consent considering patient's clearly expressed wishes prior to cardiac arrest at the time of adm ission, his current situation and inability to sign the consent form by himself at this time. 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 -complete 5 days of clindamycin 03/13: Discussed with surgery, there is flexion contractures of his amputation which may hinder in him getting prosthetics, patient may require above knee amputation (7) Osteomyelitis of toe of right foot: Code(s): M86.9 - Osteomyelitis, unspecified Status: Chronic Assessment and Plan: As above (8) Peripheral vascular disease: Code(s): I73.9 - Peripheral vascular disease, unspecified Status: Chronic Assessment and Plan: Patient has history of peripheral vascular disease, coronary artery disease -continue aspirin (9) Type 2 diabetes mellitus: Qualifiers: 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 complication status: with other specified complication 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 skilled nursing insulin use: with skilled nursing use Qualified Code(s): E11.69 - Type 2 diabetes mellitus with other specified complication; Z79.4 - halfway (current) use of insulin Code(s): E11.9 - Type 2 diabetes mellitus without complications Status: Acute Assessment and Plan: Currently on sliding scale insulin, Accu-Cheks Hemoglobin A1c this admission is 8.2 (10) Chronic obstructive pulmonary disease: Code(s): J44.9 - Chronic obstructive pulmonary disease, unspecified Status: Chronic Assessment and Plan: Continue DuoNebs -continue Symbicort (11) Electrolyte abnormality: Code(s): E87.8 - Other disorders of electrolyte and fluid balance, not elsewhere classified Status: Acute Assessment and Plan: Hypernatremia has resolved, decreased free water flushes (12) Ileus: Code(s): K56.7 - Ileus, unspecified Status: Acute Assessment and Plan: CT scan shows significant amount of tube feeds collected in the stomach. Patient also had high residuals. Patient has already been on Reglan. Bowel sounds are present but decreased. tube feeds restarted after PEG placement 03/26 tube feeds held due to high residuals. Started on Reglan. Restart tube feeds at low rate at noon today. Tolerating tube feeds, continue Reglan and MiraLax 03/30: DC Reglan as patient had multiple bowel movements -continue MiraLaX, HOLD FOR DIARRHEA (13) Sinus tachycardia: Code(s): R00.0 - Tachycardia, unspecified Status: Acute Assessment and Plan: Does not appear in any respiratory distress. Continue BiPAP p.r.n.. Beta-brayden on hold as patient is on pressors -resolved (14) Dysphagia: Code(s): R13.10 - Dysphagia, unspecified Status: Acute Assessment and Plan: 03/24 PEG tube inserted. Tolerating Tube feeds (15) DVT (deep venous thrombosis): Code(s): I82.409 - Acute embolism and thrombosis of unspecified deep veins of unspecified lower extremity Status: Acute Assessment and Plan: ultrasound shows clot surrounding the PICC line in the right upper extremity PICC line working and will be left in place for now -Lovenox on hold, due to anemia and blood noticed in the oral cavity and PEG tube -03/29: Hemoglobin 7.0 this morning, will transfuse 1 unit of packed RBCs Hemoglobin this morning 8.6, -appreciate GI evaluation and recommendation (16) Thrombocytopenia: Code(s): D69.6 - Thrombocytopenia, unspecified Status: Acute Assessment and Plan: 4T score is high -03/30: Started on fondaparinux -if patient has additional bleeding will have to hold will anticoagulation -platelet counts are improving Plan DVT prophylaxis: SCDs to left lower extremity, continue fondaparinux Stress ulcer prophylaxis: Protonix IV q.12 hours Nutrition: Tolerating tube feeds Code Status: Full code. PEG tube done. Patient awaits tracheostomy placement which is scheduled for 03/3103/30/2024: Discussed with patient's son Ricky, updated with patient's condition and plan of care. Ricky is aware that patient is going to get a trac heostomy on Sunday03/31/2024. He is also aware that there after the patient is going to go to long-term acute care facility. He has chosen [facility] [place]. I also asked care coordination to command discuss with Ricky regarding LTAC facility. Appreciate [place] from care coordination coming to the ICU in discussing with the son. I answered all his questions 03/15 Patient has no family available. Patient was extubated on 03/14 and I spoke to patient post extubation. I mentioned possibility of him needing re- intubation and he was agreeable stating that he is not ready to at this time. He stated that do whatever needs to be done to keep me alive. I also mentioned to him that if he gets reintubated and is unable to be weaned he will need tracheostomy and PEG tube placement and he states that he is agreeable to do it if needed. He did mention that he has some nephews in area which can be contacted. tender coordinator was provided that information. 03/19 I confirmed with patient again regarding his code status he is willing to get reintubated if needed and is willing to proceed with trach and PEG if needed. He wishes to be full code. 03/23 Finally patient's son arrived at bedside and I spoke to him with his and patient's ex- in the conference room. I updated them in detail about the details of patient's admission presentation and hospital course till now. He states that he has not been touch with his dad for last 10 years. He is willing to be the POA at this time. I answered all his questions and explained him the patient is currently in respiratory failure with failure to wean requiring re- intubation x2, congestive Heart Care earlier, gangrene of right foot requiring amputation, sepsis, UTI, dysphagia and he will need trach and PEG. They understand and agree with patient's wishes to proceed with trach and PEG at this time. He was hoping the patient can go to a facility close to where he lives. Critical Care Time Spent: 32 minutes Due to a high probability of clinically significant, life threatening deterioration, the patient required my highest level of preparedness to intervene emergently and I personally spent this critical care time directly and personally managing the patient. This critical care time included obtaining a history; examining the patient; pulse oximetry; ordering and review of studies; arranging urgent treatment with development of a management plan; evaluation of patient's response to treatment; frequent reassessment; and discussions with other providers. It was exclusive of separately billable procedures and treating other patients and teaching time. Please see Assessment and Plan section and the rest of the note for further information on patient assessment and treatment This dictation may have been done utilizing a voice recognition system. Attempts have been made to correct errors. However, there may be uncorrected grammatical, spelling, and recognitions errors present. Subjective Date/time seen: 03/31/24 12:24 Interval history: 03/31/2024: Patient seen and examined the ICU, remains CMV mode of ventilation, peep of 8, 30% FiO2. Is on Precedex infusion, opens eyes, follows simple commands in bilateral upper extremities and left lower extremity. Urine output has been adequate in response to diuresis, negative fluid balance. Patient had emesis yesterday in the evening, tube feeds held. Patient is going to be getting his tracheostomy today. Hemoglobin is stable at 9.0. Platelet counts have improved. Patient is afebrile, hemodynamically stable, not requiring any pressors Review of Systems Review of Systems: All systems reviewed & are unremarkable except as noted in HPI and below (HPI) ROS unobtainable: Yes unobtainable due to endotracheal tube, unobtainable due to medical condition and unobtainable due to mental status Exam Narrative: General: Patient intubated, in no acute distress HEENT:, pupils are equal and reactive from a sclera is clear, small amount of old blood noted in the mouth Neck:? supple Respiratory:? Coarse breath sounds bilaterally, decreased at bases, adequate air entry, no wheezing Cardiac:? S1-S2 normal, regular rate and rhythm Abdomen:? Soft, nontender, nondistended, bowel sounds are normoactive, PEG tube in place Extremities:? Right BKA stump, covered with Tobi wrap. Left dorsalis pedis is dopplerable Neuro:? Patient is intubated, on Precedex infusion, opens his eyes, follows simple commands in bilateral upper extremities and left lower extremity Skin:? Patient has maceration of his perianal area, pressure ulcer on his buttocks. Psych:? Unable to assess at this time Objective Data Vital Signs Vital Signs: Vital Signs - 24 hr 03/30/24 14:00 03/30/24 14:00 03/30/24 14:46 Temperature 99.5 F Pulse Rate 114 H 114 H 118 H Respiratory Rate 20 22 H Blood Pressure 167/86 H Pulse Oximetry 97 Oxygen Delivery Fraction of Inspired Oxygen 03/30/24 14:59 03/30/24 15:00 03/30/24 16:00 Temperature Pulse Rate 122 H 122 H 110 H Respiratory Rate 26 H 18 Blood Pressure Pulse Oximetry 96 Oxygen Delivery Mechanical Ventilation Fraction of Inspired Oxygen 30 03/30/24 16:00 03/30/24 16:00 03/30/24 17:09 Temperature 99.5 F Pulse Rate 110 H 112 H Respiratory Rate 18 Blood Pressure 154/84 H Pulse Oximetry 97 100 Oxygen Delivery Mechanical Ventilation Fraction of Inspired Oxygen 30 30 03/30/24 17:00 03/30/24 16:00 03/30/24 18:00 Temperature 99.9 F H Pulse Rate 114 H 110 H Respiratory Rate 21 H 21 H Blood Pressure 152/76 H Pulse Oximetry 95 Oxygen Delivery Mechanical Ventilation Fraction of Inspired Oxygen 30 03/30/24 16:00 03/30/24 18:00 03/30/24 18:00 Temperature Pulse Rate 109 H 110 H 110 H Respiratory Rate 22 H Blood Pressure Pulse Oximetry Oxygen Delivery Fraction of Inspired Oxygen 03/30/24 20:40 03/30/24 20:52 03/30/24 20:55 Temperature Pulse Rate 83 83 83 Respiratory Rate 16 16 Blood Pressure Pulse Oximetry 96 Oxygen Delivery Mechanical Ventilation Fraction of Inspired Oxygen 30 03/30/24 20:00 03/30/24 22:00 03/30/24 23:50 Temperature Pulse Rate 84 88 89 Respiratory Rate 16 16 Blood Pressure Pulse Oximetry 97 Oxygen Delivery Mechanical Ventilation Fraction of Inspired Oxygen 30 03/31/24 00:00 03/30/24 20:00 03/31/24 02:06 Temperature Pulse Rate 86 84 76 Respiratory Rate 16 16 16 Blood Pressure Pulse Oximetry 96 Oxygen Delivery Mechanical Ventilation Fraction of Inspired Oxygen 30 03/31/24 02:06 03/30/24 20:00 03/30/24 20:00 Temperature Pulse Rate 76 70 Respiratory Rate 16 Blood Pressure Pulse Oximetry Oxygen Delivery Fraction of Inspired Oxygen 30 03/30/24 20:00 03/30/24 22:00 03/30/24 22:00 Temperature 99.7 F H 99.3 F Pulse Rate 70 88 88 Respiratory Rate 16 16 Blood Pressure 114/61 119/65 Pulse Oximetry 96 96 Oxygen Delivery Fraction of Inspired Oxygen 03/31/24 02:39 03/31/24 02:40 03/31/24 02:55 Temperature Pulse Rate 77 82 81 Respiratory Rate 16 16 Blood Pressure Pulse Oximetry 97 Oxygen Delivery Mechanical Ventilation Fraction of Inspired Oxygen 30 03/31/24 00:00 03/31/24 00:00 03/31/24 00:00 Temperature Pulse Rate 86 86 Respiratory Rate 16 Blood Pressure Pulse Oximetry 95 Oxygen Delivery Mechanical Ventilation Fraction of Inspired Oxygen 30 30 03/31/24 00:00 03/31/24 02:00 03/31/24 02:00 Temperature 99.2 F 99.1 F Pulse Rate 86 83 83 Respiratory Rate 16 16 Blood Pressure 115/61 113/67 Pulse Oximetry 95 95 Oxygen Delivery Fraction of Inspired Oxygen 03/31/24 04:00 03/31/24 05:54 03/31/24 06:00 Temperature Pulse Rate 75 76 78 Respiratory Rate 16 16 Blood Pressure Pulse Oximetry 96 Oxygen Delivery Mechanical Ventilation Fraction of Inspired Oxygen 30 03/31/24 04:00 03/31/24 04:00 03/31/24 04:00 Temperature Pulse Rate 86 75 Respiratory Rate 16 Blood Pressure Pulse Oximetry 95 Oxygen Delivery Mechanical Ventilation Fraction of Inspired Oxygen 30 30 03/31/24 04:00 03/31/24 06:00 03/31/24 06:00 Temperature 98.9 F Pulse Rate 75 74 74 Respiratory Rate 16 16 Blood Pressure 96/52 L 106/60 Pulse Oximetry 95 96 Oxygen Delivery Fraction of Inspired Oxygen 03/31/24 07:26 03/31/24 07:30 03/31/24 07:37 Temperature Pulse Rate 69 68 68 Respiratory Rate 16 16 Blood Pressure Pulse Oximetry 96 Oxygen Delivery Mechanical Ventilation Fraction of Inspired Oxygen 30 03/31/24 08:00 03/31/24 10:00 03/31/24 08:00 Temperature 97.6 F 97.2 F L Pulse Rate 76 71 76 Respiratory Rate 16 16 16 Blood Pressure 116/62 120/64 Pulse Oximetry 96 97 Oxygen Delivery Fraction of Inspired Oxygen 03/31/24 10:00 03/31/24 11:06 03/31/24 11:06 Temperature Pulse Rate 71 73 73 Respiratory Rate 16 16 16 Blood Pressure Pulse Oximetry Oxygen Delivery Fraction of Inspired Oxygen 03/31/24 08:00 03/31/24 08:00 03/31/24 08:00 Temperature Pulse Rate 73 78 Respiratory Rate 16 Blood Pressure Pulse Oximetry 97 Oxygen Delivery Mechanical Ventilation Fraction of Inspired Oxygen 30 30 03/31/24 10:00 03/31/24 10:50 Temperature Pulse Rate 70 66 Respiratory Rate Blood Pressure Pulse Oximetry 96 Oxygen Delivery Mechanical Ventilation Fraction of Inspired Oxygen 30 Intake/Output Intake/Output: Intake & Output 03/28/24 03/29/24 03/30/24 03/31/24 23:59 23:59 23:59 23:59 Intake Total 1165.2 1845.5 1512.9 181.2 Output Total 2150 1975 3100 575 Balance -984.8 -129.5 -1587.1 -393.8 Meds/Results Medications: Active Medications Generic Name Dose Route Start Last Admin Trade Name Freq PRN Reason Stop Dose Admin Acetaminophen 650 mg 03/25/24 12:39 03/27/24 15:48 Acetaminophen Elixir 325 Mg/10.15 Ml Udc PO 650 mg Q4H PRN Administration Mild Pain (1-3) or Fever Albuterol/Ipratropium 3 ml 02/29/24 02:00 03/31/24 07:26 Ipratropium 0.5 Mg/Albuterol Sulfate 2.5 Mg Ampul.Neb 3 Ml INHALATION 3 ml Q6HRT [facility] Administration Alteplase, Recombinant 2 mg 03/06/24 09:45 03/22/24 16:56 Alteplase 2 Mg Vial (Cathflo) IV PUSH 2 mg ONCE PRN Administration Line Occlusion Aspirin 81 mg 03/09/24 08:00 03/30/24 08:01 Aspirin 81 Mg Chewable Tablet FEED TUBE 81 mg DAILY@0800 [facility] Administration Bisacodyl 10 mg 03/24/24 07:31 03/24/24 16:04 Bisacodyl 10 Mg Suppository RECTAL 10 mg QAM PRN Administration Constipation Dextrose 12.5 gm 02/28/24 19:23 Dextrose 50% 25 Gm/50 Ml Syringe IV PUSH PRN PRN Hypoglycemia Protocol Fondaparinux 5 mg 03/30/24 09:00 03/30/24 08:01 Fondaparinux Sodium 5 Mg/0.4 Ml Syringe SUB-Q 5 mg QAM JASON Administration Glucagon 1 mg 02/28/24 19:23 Glucagon For Inj 1 Mg Vial IM PRN PRN Hypoglycemia Protocol Glucose 15 gm 03/08/24 10:19 Glucose Oral Gel 15 Gm Of Glucse In 37.5 Gm Tube FEED TUBE PRN PRN Hypoglycemia Protocol Dextrose 1,000 mls @ 100 mls/hr 02/28/24 19:23 Dextrose 5% 1,000 Ml IVPB PRN PRN Hypoglycemia Protocol Dexmedetomidine HCl 400 mcg in 100 mls @ 9.25 mls/hr 03/30/24 14:05 03/31/24 11:06 Precedex 400 Mcg/100 Ml IV CONT 0.4 mcg/kg/hr .[id number] JASON 9.25 mls/hr Administration Protocol 0.4 MCG/KG/HR Insulin Aspart 3 - 6 units 03/15/24 17:00 03/31/24 09:14 Insulin Aspart (*Bkc) 100 Units/Ml SUB-Q 3 units Q4HR JASON Administration Protocol Insulin Glargine 55 units 03/15/24 09:00 03/16/24 10:44 Insulin Glargine (*Bkc) 100 Units/Ml SUB-Q 55 units DAILY [facility] Administration Labetalol HCl 20 mg 03/08/24 10:06 03/08/24 16:48 Labetalol Hcl Inj 100 Mg/20 Ml Vial IV PUSH 20 mg Q4H PRN Administration SBP > 160 and HR> 60 -1st choice Metoclopramide HCl 5 mg 03/31/24 11:00 Metoclopramide Hcl 10 Mg/10 Ml Soln Udc PO Q6HR [facility] Miscellaneous Information 1 each 03/31/24 00:01 Protonix_ Needs To Be Renewed Or It Will Automatically Discontinue. XX 04/30/24 00:00 CLARIFY JASON Multi-Ingred Cream/Lotion/Oil/Oint 1 applic 03/22/24 21:00 03/31/24 09:15 Mineral Oil/White Petrolatum Ointment EACH EYE 1 applic Q12HR JASON Administration Pantoprazole Sodium 40 mg 03/02/24 09:00 03/31/24 09:14 Pantoprazole Sodium Iv 40 Mg Vial IV PUSH 40 mg Q12HR JASON Administration Polyethylene Glycol 17 gm 03/24/24 09:00 03/31/24 09:14 Polyethylene Glycol 3350 17 Gm Powd.Pack PO Not Given QAM JASON Sodium Chloride 20 ml 02/28/24 23:37 Central Line Flush IV PUSH PRN PRN after blood draws Sodium Chloride 20 ml 03/21/24 08:57 Central Line Flush IV PUSH PRN PRN after blood draws Sodium Chloride 10 ml 03/21/24 08:57 Central Line Flush IV PUSH PRN PRN with TPN bag changes Sodium Chloride 10 ml 03/21/24 14:00 03/31/24 06:09 Central Line Flush IV PUSH 10 ml Q8HR JASON Administration Radiology Results: ITS Impressions Lower Extremity CTA 02/28/24 14:54 IMPRESSION: 1. 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 2. Moderate stenosis of right popliteal artery. 3. Osteomyelitis involving first proximal and distal phalanges and head of first metatarsal. Head CT 02/29/24 05:55 Impression: No intracranial hemorrhage, mass, or acute infarct. Stable chronic encephalomalacia in the high left parietal lobe. Atrophy and chronic white matter changes, as above. Chest/Abdomen/Pelvis CTA 02/29/24 06:02 Impression: Extensive right upper lobe consolidation and more mild right middle lobe consolidation, consistent with pneumonia. Consider aspiration pneumonia. Moderate to large right pleural effusion with complete atelectasis of the right lower lobe. Moderate left pleural effusion with minimal left basilar atelectasis. Small pericardial effusion. No definite acute abnormality in the abdomen or pelvis. Chronic compression fractures, as above. Renal Ultrasound 03/03/24 15:45 IMPRESSION: 1. Normal kidneys without hydronephrosis. 2. Small amount of ascites in the abdomen and pelvis. Abdomen Ultrasound 03/13/24 16:52 IMPRESSION: 1. No etiology for abnormal liver function tests. 2. Normal hepatic veins and main portal vein. Right and left portal veins and proper hepatic artery not evaluated. 3. Right pleural effusion. Vascular Ultrasound 03/13/24 16:52 IMPRESSION: 1. No etiology for abnormal liver function tests. 2. Normal hepatic veins and main portal vein. Right and left portal veins and proper hepatic artery not evaluated. 3. Right pleural effusion. Chest/Abdomen/Pelvis CT 03/16/24 21:51 IMPRESSION: Anasarca Large pleural effusions with prominent compressive atelectasis of the lower lobes especially, dependent atelectasis of the middle and upper lobes Heart size. Prominent coronary artery atherosclerotic calcifications Minimal pericardial effusion Prominent diffuse thickening of urinary bladder wall suggesting cystitis area Ha catheter in bladder lumen Very prominent amount of fluid and large fluid level within the stomach despite presence of NG tube T11 and L1 moderate anterior wedge compression fractures, likely chronic Thoracentesis Ultrasound 03/18/24 10:27 IMPRESSION: 1. Successful ultrasound-guided thoracentesis yielding 550 mL of doris-colored fluid. Modified Barium Swallow 03/21/24 15:25 IMPRESSION: 1. Aspiration of thin liquids and pudding. 2. Please refer to the speech therapy report for recommendations. Tube Placement 03/22/24 11:33 IMPRESSION: 1. Fluoroscopy guided nasoenteric tube placement with tip in the stomach. Abdomen X-Ray 03/22/24 12:47 IMPRESSION: 1. Nasogastric tube tip in the stomach. 2. Nasoenteric tube tip in the stomach. Venous Doppler Study 03/22/24 16:38 IMPRESSION: Nonocclusive right subclavian vein thrombus. No additional deep venous thrombosis detected in the remaining bilateral upper extremity veins. Chest X-Ray 03/31/24 06:18 Impression: [id number] bilateral pleural effusions with mild bibasilar pulmonary edema. Support tubes, as above. Labs Labs: Laboratory Results - last 24 hr 03/30/24 03/30/24 03/30/24 16:04 17:01 20:32 WBC RBC Hgb Hct MCV MCH MCHC RDW Plt Count MPV Immature Gran % (Auto) Neut % (Auto) Lymph % (Auto) Bureau % (Auto) Eos % (Auto) Baso % (Auto) Lymph # (Auto) Bureau # (Auto) Eos # (Auto) Baso # (Auto) Abs Immat Gran (auto) Absolute Neuts (auto) Absolute Nucleated RBC Nucleated RBC % Sodium Potassium Chloride Carbon Dioxide Anion Gap BUN Creatinine Estim Creat Clear Calc Estimated GFR Glucose POC Capillary Glucose 271 H 276 H 233 H Calcium Phosphorus Magnesium Total Bilirubin AST ALT Alkaline Phosphatase Total Protein Albumin 03/31/24 03/31/24 03/31/24 00:48 04:53 06:04 WBC 7.2 RBC 3.17 L Hgb 9.0 L Hct 29.0 L MCV 91.5 MCH 28.4 MCHC 31.0 L RDW 17.7 H Plt Count 158 MPV 10.1 Immature Gran % (Auto) 0.7 H Neut % (Auto) 67.1 Lymph % (Auto) 19.8 Bureau % (Auto) 9.5 H Eos % (Auto) 2.6 Baso % (Auto) 0.3 Lymph # (Auto) 1.42 Bureau # (Auto) 0.7 H Eos # (Auto) 0.2 Baso # (Auto) 0.0 Abs Immat Gran (auto) 0.05 H Absolute Neuts (auto) 4.8 Absolute Nucleated RBC 0.000 Nucleated RBC % 0.0 Sodium 143 Potassium 3.9 Chloride 107 Carbon Dioxide 31 H Anion Gap 5 BUN 33 H Creatinine 0.70 Estim Creat Clear Calc 90 Estimated GFR > 60 Glucose 233 H POC Capillary Glucose 243 H 218 H Calcium 8.6 Phosphorus 3.5 Magnesium 2.0 Total Bilirubin 0.5 AST 29 ALT 23 Alkaline Phosphatase 112 Total Protein 6.0 L Albumin 2.8 L 03/31/24 07:58 WBC RBC Hgb Hct MCV MCH MCHC RDW Plt Count MPV Immature Gran % (Auto) Neut % (Auto) Lymph % (Auto) Bureau % (Auto) Eos % (Auto) Baso % (Auto) Lymph # (Auto) Bureau # (Auto) Eos # (Auto) Baso # (Auto) Abs Immat Gran (auto) Absolute Neuts (auto) Absolute Nucleated RBC Nucleated RBC % Sodium Potassium Chloride Carbon Dioxide Anion Gap BUN Creatinine Estim Creat Clear Calc Estimated GFR Glucose POC Capillary Glucose 224 H Calcium Phosphorus Magnesium Total Bilirubin AST ALT Alkaline Phosphatase Total Protein Albumin Quality VTE Prophylaxis VTE prophylaxis: pharmacologic ordered
[2024-03-31 12:43] LABS: Glucose Point of Care 197 mg/dl (65-105)
[2024-03-31] MEDS: FUROSEMIDE INJ 40 MG/4 ML VIAL 20 MG IV PUSH (13:15)
[2024-03-31] MEDS: METOCLOPRAMIDE HCL 10 MG/10 ML SOLN UDC 5 MG PO ×2 (13:16→17:44)
[2024-03-31 16:34] LABS: Glucose Point of Care 236 mg/dl (65-105)
[2024-03-31 21:05] LABS: Glucose Point of Care 261 mg/dl (65-105)
[2024-03-31] MEDS: ACETAMINOPHEN ELIXIR 325 MG/10.15 ML UDC 650 MG PO (22:33)
[2024-04-01] VITALS (22 sets, daily range): BP systolic 144–162; BP diastolic 68–83; PULSE 84–132; RESP 16–21; TEMP 36.6–37.9; O2SAT 96–100
[2024-04-01] MEDS: METOCLOPRAMIDE HCL 10 MG/10 ML SOLN UDC 5 MG PO ×4 (00:32→17:52)
[2024-04-01] MEDS: INSULIN ASPART (*BKC) 100 UNITS/ML SUB-Q ×5 (00:38→16:21)
[2024-04-01 00:52] LABS: Glucose Point of Care 228 mg/dl (65-105)
[2024-04-01] MEDS: IPRATROPIUM 0.5 MG/ALBUTEROL SULFATE 2.5 MG AMPUL.NEB 3 ML INHALATION ×3 (02:22→14:25)
[2024-04-01 05:55] LABS: Basophils Absolute Auto 0.1 K/mm3 (0.0-0.1); Basophils Percent Auto 0.6 % (0.2-1.2); Eosinophils Absolute Auto 0.2 K/mm3 (0-0.3); Eosinophils Percent Auto 1.4 % (0-4.4); Hematocrit 30.2 % (42.0-52.0); Hemoglobin 9.1 g/dL (14.0-18.0); Immature Granulocyte Absolute 0.08 K/mm3 (0.00-0.031); Immature Granulocyte Percent A 0.8 % (0-0.5); Lymphocytes Absolute Auto 1.62 K/mm3 (0.9-3.2); Lymphocytes Percent Auto 15.4 % (18.3-44.2); Mean Corpuscular HGB Conc 30.1 g/dl (32-36); Mean Corpuscular Hemoglobin 27.8 pg (26-34); Mean Corpuscular Volume 92.4 fl (80-100); Mean Platelet Volume 9.8 fl (7.4-10.4); Monocytes Percent Auto 9.6 % (2.6-8.5); Neutrophils Absolute Auto 7.6 K/mm3 (1.3-6.7); Neutrophils Percent Auto 72.2 % (45.5-73.1); Platelet Count Result 207 k/mm3 (150-375); Red Blood Count 3.27 M/mm3 (4.6-6.20); Red Cell Distribution Width 17.5 % (11.5-14.5); White Blood Count 10.6 K/mm3 (4.5-10.0)
[2024-04-01 06:11] LABS: Alanine Aminotransferase 31 U/L (6-50); Albumin Level 2.9 g/dL (3.5-5.1); Alkaline Phosphatase 112 U/L (38-126); Anion Gap 5 mmol/L (4-12); Aspartate Amino Transferase 40 U/L (17-59); Bilirubin,Total 0.4 mg/dL (0.2-1.3); Blood Urea Nitrogen 41 mg/dL (9-20); Calcium 8.5 mg/dL (8.4-10.2); Carbon Dioxide 33 mmol/L (22-30); Chloride 105 mmol/L (98-107); Estimated CRCL calculation 79 ml/min; Estimated Glomerular Filt Rate > 60; Glucose 264 mg/dL (65-110); Magnesium 1.9 mg/dL (1.6-2.3); Phosphorus 3.2 mg/dL (2.5-4.5); Potassium 3.4 mmol/L (3.4-5.0); Sodium 143 mmol/L (137-145)
[2024-04-01] MEDS: CENTRAL LINE FLUSH 10 ML IV PUSH ×2 (06:14→12:53)
[2024-04-01 06:16] LABS: Glucose Point of Care 253 mg/dl (65-105)
[2024-04-01 08:05] LABS: Glucose Point of Care 236 mg/dl (65-105)
[2024-04-01] MEDS: PANTOPRAZOLE SODIUM IV 40 MG VIAL IV PUSH (08:17)
[2024-04-01] MEDS: oxyCODONE HCL (*CRX) 5 MG TAB IR FEED TUBE (08:17)
[2024-04-01] MEDS: INSULIN GLARGINE (*BKC) 100 UNITS/ML 20 UNITS SUB-Q (08:18)
[2024-04-01] MEDS: MINERAL OIL/WHITE PETROLATUM OINTMENT 1 APPLIC EACH EYE (08:18)
[2024-04-01] MEDS: FONDAPARINUX SODIUM 5 MG/0.4 ML SYRINGE SUB-Q (08:28)
--- NOTE | 2024-04-01 09:23 | WPDINTPN ---
Progress Note: A&P Assessment and Plan (1) Acute respiratory failure with hypoxia: Code(s): J96.01 - Acute respiratory failure with hypoxia Status: Acute Assessment and Plan: Acute respiratory failure likely related to cardiac arrest, aspiration pneumonia, NSTEMI, hypoxia, septic shock Worsening likely secondary to ARDS versus pulmonary edema Intubated 02/27 02/28 Chest CTA: Extensive right upper lobe consolidation and more mild right middle lobe consolidation, consistent with pneumonia. Consider aspiration pneumonia.Moderate to large right pleural effusion with complete atelectasis of the right lower lobe. Moderate left pleural effusion with minimal left basilar atelectasis. Small pericardial effusion. No definite acute abnormality in the abdomen or pelvis. Chronic compression fractures, as above . -03/07 right thoracentesis with 1 L fluid removed -03/08 left-sided thoracentesis 550 mL -03/11: patient was in pressure support ventilation 02/18, with decrease tidal volumes in the upper 200s. place patient back on CMV, I have asked the bedside RN to decrease the Precedex infusion once patient is more awake will place back on spontaneous breathing trials 03/12: Place patient on SBT 04/17, low tidal volumes, low respiratory rate. Patient had replaced back on CMV mode of ventilation. -even on ASV patient is breathing only 7-8 times a minute 03/13: Off Precedex infusion overnight, placed patient on pressure support ventilation 04/17, initially did well but not significantly tachycardic and tachypneic and in respiratory distress, patient was placed back on CMV mode of ventilation and low-dose was 03/14 8/5 PSV SBT done for more than 1 hour. RSBI, ABG and Vitals acceptable. Pt awake and following commands. Patient was extubated. Initially patient did well and was on nasal cannula and was able to communicate. Over 12 hours patient became more hypoxic with increased respiratory distress and tachypnea. I spoke to patient post extubation and was agreeable to re-intubation if needed and stated that 'he is not ready to ' and 'do what ever it takes'. He was re intubated at night. I also mentioned to him that he may need tracheostomy and PEG tube placement if he gets we intubated and is not weanable. He told me 'to proceed with it if needed'. Solu-Medrol IV given for airway edema and will be continued for 24 hours -completed course of Solu-Medrol -continue bronchodilators -CT scan shows large pleural effusions bilaterally. I will request IR for thoracentesis.. Patient is on minimal ventilator setting but has failed trials initially multiple times and then once extubated he was reintubated within 12 hours. I will treat try again after thoracentesis to see patient is weanable from the vent otherwise will proceed with trach and PEG as patient has been on ventilator for more than 2 weeks. 03/17 right thoracentesis 1 L fluid was removed 03/18 left thoracentesis 550 mL fluid was removed Will also continue diuretics. 03/19 patient was extubated after weaning trial 03/20 continue nasal cannula, BiPAP p.r.n., hold diuretics, incentive spirometry, spoke to patient after extubation yesterday he is willing to be intubated if needed and proceed with trach and PEG if needed hopefully we can avoid that situation 03/21 patient continues to require BiPAP intermittently and tolerates nasal cannula. He appears quite weak although he does have borderline cough. Continue incentive spirometry. P.r.n. BiPAP. BiPAP at night. Nasal cannula as tolerated. Patient remains at risk of requiring intubation. I spoke to patient again and mention that to him and he verbalized understanding by noting his head. I will check chest x-ray. Continue ICU monitoring 03/22 discussed with the patient emphasized importance of using BiPAP for increased work of breathing and at night due to his deconditioning and weakness. He is currently saturating on nasal cannula and appears not in any respiratory distress. later patient deteriorated and required re-intubation 03/23 ABG and chest x-ray. patient has failed extubation twice and has been on ventilator for close to 20 days. Patient is awaiting trach now . ENT consulted 03/29: Off all sedation. Patient opens eyes, follows simple commands with left lower extremity blood pressures have been stable, off pressors -has been responding well to diuresis, chest x-ray continues to show mild pulmonary edema, repeat diuresis again today Tracheostomy done 03/31. ABG and chest x-ray reviewed. Continue mechanical ventilation. (2) Elevated LFTs: Code(s): R79.89 - Other specified abnormal findings of blood chemistry Status: Acute Assessment and Plan: 03/13: Significant elevation in LFTs, AST 2280, ALT 988, alk-phos 722 -patient has been hemodynamically stable, no hypotension noted in the last 24-48 hours -statin discontinued. Hold Tylenol -no tenderness in the right upper, lower quadrant or epigastric region on exam -negative vital hepatitis panel, right upper quadrant ultrasound with Doppler negative for hepatic or portal vein thrombosis -patient evaluated by GI -levels now improved. Monitor (3) Cardiac arrest with pulseless electrical activity: Code(s): I46.9 - Cardiac arrest, cause unspecified Status: Acute Assessment and Plan: Cardiac arrest, secondary to unknown etiology. Possible aspiration pneumonia, NSTEMI, hypoxia, septic shock, infection -see code blue sheet for the details -patient currently intubated, -appreciate cardiology following the patient 02/29/2024 echocardiogram Summary 1. Technically difficult study with limited views. 2. Left ventricular chamber dimension is normal. 3. Left ventricular systolic function is mildly reduced, estimated at 45-50%. The apex appears to be hypokinetic. 4. There is mildly increased left ventricular wall thickness. 5. The left ventricular diastolic function is grade I diastolic dysfunction. 6. Right ventricular systolic function is normal. 7. Left atrial chamber dimension is moderately enlarged. 8. There is mild to moderate tricuspid valve regurgitation. 9. There is small anterior pericardial effusion. (4) Septic shock: Code(s): A41.9 - Sepsis, unspecified organism; R65.21 - Severe sepsis with septic shock Status: Acute Assessment and Plan: Resolved Patient in shock, likely related to the gangrene, aspiration pneumonia, status post cardiac arrest 02/28/2024: Blood cultures have been obtained and negative Status post 10 days of antibiotics 03/16 low-grade fever increase in WBC CT scan as above, repeat blood cultures and sputum pending UA suggestive of UTI. Urine cultures pending. Ha has been changed. Completed course of cefepime Off Levophed since 03/29 after discontinuing sedation (5) NSTEMI (non-ST elevated myocardial infarction): Code(s): I21.4 - Non-ST elevation (NSTEMI) myocardial infarction Status: Acute Assessment and Plan: -appreciate cardiology evaluation and recommendation -Continue aspirin, Lovenox and high-dose a statin - beta-brayden, losartan are on hold due to soft blood pressure. -03/02 heparin infusion was discontinued after 48 hours for NSTEMI by cardiology (6) Gangrene of right foot: Code(s): I96 - Gangrene, not elsewhere classified Status: Acute Assessment and Plan: CTA showed peripheral arterial disease with total occlusion of the right anterior and posterior tibial arteries and right peroneal artery with distal reconstitution of peroneal artery. This extensive gangrene of the right foot with gas seen on CT of the foot. General surgery spoke to the patient in the ER on the day of admission on 02/27 patient at that time agreed for below-knee amputation. Plan was to do a below-knee amputation on 02/29/2024 but patient had a cardiac arrest that night secondary to sepsis. Surgery at that time was deferred. Patient now is intubated sedated and unable to sign his consent.. Patient has no family and for many years at the long term has had no visitor. He has 1 son which no one has been able to get hold off right several attempts. Considering patient has gangrene of the foot with no vascular supply leading to sepsis and if untreatable lead to his , Dr. Johns will proceed with amputation today, 03/05/2024. Dr. Collins and Dr. Johns has signed 2 physician consent considering patient's clearly expressed wishes prior to cardiac arrest at the time of admission, his current situation and inability to sign the consent form by himself at this time. 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 -complete 5 days of clindamycin 03/13: Discussed with surgery, there is flexion contractures of his amputation which may hinder in him getting prosthetics, patient may require above knee amputation (7) Osteomyelitis of toe of right foot: Code(s): M86.9 - Osteomyelitis, unspecified Status: Chronic Assessment and Plan: As above (8) Peripheral vascular disease: Code(s): I73.9 - Peripheral vascular disease, unspecified Status: Chronic Assessment and Plan: Patient has history of peripheral vascular disease, coronary artery disease -continue aspirin (9) Type 2 diabetes mellitus: Qualifiers: 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 complication status: with other specified complication 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 mcc insulin use: with mcc use Qualified Code(s): E11.69 - Type 2 diabetes mellitus with other specified complication; 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 Code(s): E11.9 - Type 2 diabetes mellitus without complications Status: Acute Assessment and Plan: Currently on sliding scale insulin, Accu-Cheks Hemoglobin A1c this admission is 8.2 Add Lantus (10) Chronic obstructive pulmonary disease: Code(s): J44.9 - Chronic obstructive pulmonary disease, unspecified Status: Chronic Assessment and Plan: Continue DuoNebs -continue Symbicort (11) Electrolyte abnormality: Code(s): E87.8 - Other disorders of electrolyte and fluid balance, not elsewhere classified Status: Acute Assessment and Plan: Hypernatremia has resolved, continue free water flushes (12) Ileus: Code(s): K56.7 - Ileus, unspecified Status: Acute Assessment and Plan: CT scan shows significant amount of tube feeds collected in the stomach. Patient also had high residuals. Patient has already been on Reglan. Bowel sounds are present but decreased. tube feeds restarted after PEG placement 03/26 tube feeds held due to high residuals. Started on Reglan. Restart tube feeds at low rate at noon today. Tolerating tube feeds, continue Reglan and MiraLax 03/30: DC Reglan as patient had multiple bowel movements -continue MiraLaX, HOLD FOR DIARRHEA (13) Sinus tachycardia: Code(s): R00.0 - Tachycardia, unspecified Status: Acute Assessment and Plan: Does not appear in any respiratory distress. Continue BiPAP p.r.n.. Resume low-dose beta-brayden (14) Dysphagia: Code(s): R13.10 - Dysphagia, unspecified Status: Acute Assessment and Plan: 03/24 PEG tube inserted. Tolerating Tube feeds (15) DVT (deep venous thrombosis): Code(s): I82.409 - Acute embolism and thrombosis of unspecified deep veins of unspecified lower extremity Status: Acute Assessment and Plan: ultrasound shows clot surrounding the PICC line in the right upper extremity PICC line working and will be left in place for now -Lovenox on hold, due to anemia and blood noticed in the oral cavity and PEG tube -03/29: Hemoglobin 7.0 this morning, will transfuse 1 unit of packed RBCs Hemoglobin this morning 8.6, -appreciate GI evaluation and recommendation (16) Thrombocytopenia: Code(s): D69.6 - Thrombocytopenia, unspecified Status: Acute Assessment and Plan: 4T score is high -03/30: Started on fondaparinux -platelet counts are improving Heparin antibody was ordered and pending along with serotonin release assay Plan DVT prophylaxis: SCDs to left lower extremity, continue fondaparinux Stress ulcer prophylaxis: Protonix IV q.12 hours Nutrition: Tolerating tube feeds Code Status: Full code. Patient base transferred to LTAC now. I [facility] and given sign-out of patient's hospital course Critical Care Time Spent: 32 minutes Due to a high probability of clinically significant, life threatening deterioration, the patient required my highest level of preparedness to intervene emergently and I personally spent this critical care time directly and personally managing the patient. This critical care time included obtaining a history; examining the patient; pulse oximetry; ordering and review of studies; arranging urgent treatment with development of a management plan; evaluation of patient's response to treatment; frequent reassessment; and discussions with other providers. It was exclusive of separately billable procedures and treating other patients and teaching time. Please see Assessment and Plan section and the rest of the note for further information on patient assessment and treatment This dictation may have been done utilizing a voice recognition system. Attempts have been made to correct errors. However, there may be uncorrected grammatical, spelling, and recognitions errors present. Subjective Date/time seen: 04/01/24 Patient was trach yesterday. Patient is now off of sedation but continues to be on mechanical ventilation and FiO2 of 30%. Acceptable urine output. Arousable follows commands intermittently. Overall generalized weak. Tolerating tube feeds. Review of Systems Review of Systems: ROS unobtainable: Yes unobtainable due to endotracheal tube, unobtainable due to medical condition and unobtainable due to mental status Exam Narrative: General: Patient trached, on mechanical ventilation, in no acute distress HEENT:, pupils are equal and reactive from a sclera is clear, small amount of old blood noted in the mouth Neck:? supple Respiratory:? Coarse breath sounds bilaterally, decreased at bases, adequate air entry, no wheezing trach tube in place Cardiac:? S1-S2 normal, regular rate and rhythm Abdomen:? Soft, nontender, nondistended, bowel sounds are normoactive, PEG tube in place Extremities:? Right BKA stump, covered with Tobi wrap. Left dorsalis pedis is dopplerable Neuro:? Patient is off sedation, opens his eyes, follows simple commands in bilateral upper extremities and left lower extremity Skin:? Patient has maceration of his perianal area, pressure ulcer on his buttocks. Psych:? Unable to assess at this time Objective Data Vital Signs Vital Signs: Vital Signs - 24 hr 03/31/24 10:00 03/31/24 10:00 03/31/24 11:06 Temperature 36.2 C L Pulse Rate 71 71 73 Respiratory Rate 16 16 16 Blood Pressure 120/64 Pulse Oximetry 97 Oxygen Delivery Fraction of Inspired Oxygen 03/31/24 11:06 03/31/24 10:00 03/31/24 10:50 Temperature Pulse Rate 73 70 66 Respiratory Rate 16 Blood Pressure Pulse Oximetry 96 Oxygen Delivery Mechanical Ventilation Fraction of Inspired Oxygen 30 03/31/24 12:00 03/31/24 14:11 03/31/24 14:14 Temperature 35.8 C L Pulse Rate 76 69 67 Respiratory Rate 16 17 Blood Pressure 115/66 Pulse Oximetry 95 97 Oxygen Delivery Mechanical Ventilation Fraction of Inspired Oxygen 30 03/31/24 13:30 03/31/24 13:45 03/31/24 12:30 Temperature 35.7 C L 35.7 C L Pulse Rate 76 Respiratory Rate 16 Blood Pressure Pulse Oximetry Oxygen Delivery Fraction of Inspired Oxygen 03/31/24 14:00 03/31/24 14:00 03/31/24 14:16 Temperature 35.8 C L 35.8 C L Pulse Rate 77 Respiratory Rate 19 Blood Pressure Pulse Oximetry Oxygen Delivery Fraction of Inspired Oxygen 03/31/24 14:20 03/31/24 12:30 03/31/24 12:30 Temperature Pulse Rate 71 71 Respiratory Rate 16 16 Blood Pressure Pulse Oximetry 97 Oxygen Delivery Mechanical Ventilation Fraction of Inspired Oxygen 30 30 03/31/24 12:30 03/31/24 14:00 03/31/24 14:00 Temperature 35.8 C L Pulse Rate 75 77 77 Respiratory Rate 19 Blood Pressure 138/71 Pulse Oximetry 98 Oxygen Delivery Fraction of Inspired Oxygen 03/31/24 14:49 03/31/24 16:14 03/31/24 16:00 Temperature 36.1 C L 36.6 C Pulse Rate 85 81 Respiratory Rate 17 16 Blood Pressure 98/54 L Pulse Oximetry 94 Oxygen Delivery Fraction of Inspired Oxygen 03/31/24 16:00 03/31/24 16:00 03/31/24 16:00 Temperature Pulse Rate 85 68 Respiratory Rate 17 Blood Pressure Pulse Oximetry 94 Oxygen Delivery Mechanical Ventilation Fraction of Inspired Oxygen 30 30 03/31/24 17:05 03/31/24 17:50 03/31/24 18:00 Temperature 37.1 C Pulse Rate 82 83 82 Respiratory Rate 17 19 Blood Pressure 107/56 L Pulse Oximetry 95 96 Oxygen Delivery Mechanical Ventilation Fraction of Inspired Oxygen 30 03/31/24 18:00 03/31/24 18:21 03/31/24 20:07 Temperature Pulse Rate 82 81 83 Respiratory Rate 17 17 Blood Pressure Pulse Oximetry Oxygen Delivery Fraction of Inspired Oxygen 03/31/24 20:18 03/31/24 20:18 03/31/24 20:28 Temperature Pulse Rate 89 89 92 Respiratory Rate 29 H 20 Blood Pressure Pulse Oximetry 98 Oxygen Delivery Mechanical Ventilation Fraction of Inspired Oxygen 30 03/31/24 22:00 03/31/24 20:00 03/31/24 20:00 Temperature Pulse Rate 113 H 84 84 Respiratory Rate 17 17 Blood Pressure Pulse Oximetry 97 Oxygen Delivery Mechanical Ventilation Fraction of Inspired Oxygen 30 03/31/24 20:00 03/31/24 22:33 03/31/24 20:00 Temperature 37.5 C 37.1 C Pulse Rate 84 Respiratory Rate 17 Blood Pressure 125/61 Pulse Oximetry 97 Oxygen Delivery Fraction of Inspired Oxygen 30 03/31/24 22:00 03/31/24 22:00 03/31/24 23:15 Temperature 37.4 C Pulse Rate 113 H 84 117 H Respiratory Rate 18 Blood Pressure 144/68 H Pulse Oximetry 97 97 Oxygen Delivery Mechanical Ventilation Fraction of Inspired Oxygen 30 04/01/24 00:44 04/01/24 00:00 04/01/24 00:00 Temperature Pulse Rate 117 H 84 113 H Respiratory Rate 21 H 17 Blood Pressure Pulse Oximetry 97 Oxygen Delivery Mechanical Ventilation Fraction of Inspired Oxygen 30 04/01/24 00:00 04/01/24 00:00 04/01/24 02:23 Temperature 37.4 C Pulse Rate 113 H 112 H Respiratory Rate 18 Blood Pressure 144/68 H Pulse Oximetry 97 99 Oxygen Delivery Mechanical Ventilation Fraction of Inspired Oxygen 30 30 04/01/24 02:23 04/01/24 02:32 04/01/24 02:00 Temperature Pulse Rate 112 H 114 H 113 H Respiratory Rate 19 19 Blood Pressure Pulse Oximetry Oxygen Delivery Fraction of Inspired Oxygen 04/01/24 02:00 04/01/24 02:00 04/01/24 05:06 Temperature 36.6 C Pulse Rate 113 H 113 H 121 H Respiratory Rate 19 19 Blood Pressure 144/69 H Pulse Oximetry 100 97 Oxygen Delivery Mechanical Ventilation Fraction of Inspired Oxygen 30 04/01/24 06:09 04/01/24 04:00 04/01/24 04:00 Temperature Pulse Rate 117 H 122 H 122 H Respiratory Rate 16 20 Blood Pressure Pulse Oximetry 97 Oxygen Delivery Mechanical Ventilation Fraction of Inspired Oxygen 30 04/01/24 04:00 04/01/24 04:00 04/01/24 06:00 Temperature 37.4 C Pulse Rate 122 H 116 H Respiratory Rate 20 Blood Pressure 155/78 H Pulse Oximetry 97 Oxygen Delivery Fraction of Inspired Oxygen 30 04/01/24 06:00 04/01/24 08:36 Temperature 37.5 C Pulse Rate 116 H 117 H Respiratory Rate 19 Blood Pressure 162/81 H Pulse Oximetry 98 97 Oxygen Delivery Mechanical Ventilation Fraction of Inspired Oxygen 30 Intake/Output Intake/Output: Intake & Output 03/29/24 03/30/24 03/31/24 04/01/24 23:59 23:59 23:59 23:59 Intake Total 1845.5 1512.9 412.9 482.3 Output Total 1975 3100 1325 800 Balance -129.5 -1587.1 -912.1 -317.7 Meds/Results Medications: Active Medications Generic Name Dose Route Start Last Admin Trade Name Freq PRN Reason Stop Dose Admin Acetaminophen 650 mg 03/25/24 12:39 03/31/24 22:33 Acetaminophen Elixir 325 Mg/10.15 Ml Udc PO 650 mg Q4H PRN Administration Mild Pain (1-3) or Fever Albuterol/Ipratropium 3 ml 02/29/24 02:00 04/01/24 08:31 Ipratropium 0.5 Mg/Albuterol Sulfate 2.5 Mg Ampul.Neb 3 Ml INHALATION 3 ml Q6HRT JASON Administration Alteplase, Recombinant 2 mg 03/06/24 09:45 03/22/24 16:56 Alteplase 2 Mg Vial (Cathflo) IV PUSH 2 mg ONCE PRN Administration Line Occlusion Aspirin 81 mg 03/09/24 08:00 03/30/24 08:01 Aspirin 81 Mg Chewable Tablet FEED TUBE 81 mg DAILY@0800 JASON Administration Bisacodyl 10 mg 03/24/24 07:31 03/24/24 16:04 Bisacodyl 10 Mg Suppository RECTAL 10 mg QAM PRN Administration Constipation Dextrose 12.5 gm 02/28/24 19:23 Dextrose 50% 25 Gm/50 Ml Syringe IV PUSH PRN PRN Hypoglycemia Protocol Fentanyl Citrate 25 mcg 04/01/24 07:37 Fentanyl Citrate Inj (*Crx) 100 Mcg/2 Ml Vial IV PUSH Q4H PRN Pain Rated 7-10 Fondaparinux 5 mg 04/01/24 09:00 04/01/24 08:28 Fondaparinux Sodium 5 Mg/0.4 Ml Syringe SUB-Q 5 mg QAM JASON Administration Glucagon 1 mg 02/28/24 19:23 Glucagon For Inj 1 Mg Vial IM PRN PRN Hypoglycemia Protocol Glucose 15 gm 03/08/24 10:19 Glucose Oral Gel 15 Gm Of Glucse In 37.5 Gm Tube FEED TUBE PRN PRN Hypoglycemia Protocol Dextrose 1,000 mls @ 100 mls/hr 02/28/24 19:23 Dextrose 5% 1,000 Ml IVPB PRN PRN Hypoglycemia Protocol Insulin Aspart 3 - 6 units 03/15/24 17:00 04/01/24 08:18 Insulin Aspart (*Bkc) 100 Units/Ml SUB-Q 3 units Q4HR JASON Administration Protocol Insulin Glargine 20 units 04/01/24 09:00 04/01/24 08:18 Insulin Glargine (*Bkc) 100 Units/Ml SUB-Q 20 units DAILY JASON Administration Labetalol HCl 20 mg 03/08/24 10:06 03/08/24 16:48 Labetalol Hcl Inj 100 Mg/20 Ml Vial IV PUSH 20 mg Q4H PRN Administration SBP > 160 and HR> 60 -1st choice Lorazepam 1 mg 04/01/24 07:37 Lorazepam Inj (*Crx) 2 Mg/Ml Vial IV PUSH Q4H PRN Anxiety Metoclopramide HCl 5 mg 03/31/24 11:00 04/01/24 06:10 Metoclopramide Hcl 10 Mg/10 Ml Soln Udc PO 5 mg Q6HR JASON Administration Multi-Ingred Cream/Lotion/Oil/Oint 1 applic 03/22/24 21:00 04/01/24 08:18 Mineral Oil/White Petrolatum Ointment EACH EYE 1 applic Q12HR JASON Administration Oxycodone HCl 5 mg 04/01/24 07:38 04/01/24 08:17 Oxycodone Hcl (*Crx) 5 Mg Tab Ir FEED TUBE 5 mg Q4H PRN Administration Moderate Pain (4-6) Pantoprazole Sodium 40 mg 03/02/24 09:00 04/01/24 08:17 Pantoprazole Sodium Iv 40 Mg Vial IV PUSH 40 mg Q12HR JASON Administration Polyethylene Glycol 17 gm 03/24/24 09:00 04/01/24 08:20 Polyethylene Glycol 3350 17 Gm Powd.Pack PO Not Given QAM JASON Sodium Chloride 20 ml 02/28/24 23:37 Central Line Flush IV PUSH PRN PRN after blood draws Sodium Chloride 20 ml 03/21/24 08:57 Central Line Flush IV PUSH PRN PRN after blood draws Sodium Chloride 10 ml 03/21/24 08:57 Central Line Flush IV PUSH PRN PRN with TPN bag changes Sodium Chloride 10 ml 03/21/24 14:00 04/01/24 06:14 Central Line Flush IV PUSH 10 ml Q8HR JASON Administration Radiology Results: ITS Impressions Lower Extremity CTA 02/28/24 14:54 IMPRESSION: 1. 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 2. Moderate stenosis of right popliteal artery. 3. Osteomyelitis involving first proximal and distal phalanges and head of first metatarsal. Head CT 02/29/24 05:55 Impression: No intracranial hemorrhage, mass, or acute infarct. Stable chronic encephalomalacia in the high left parietal lobe. Atrophy and chronic white matter changes, as above. Chest/Abdomen/Pelvis CTA 02/29/24 06:02 Impression: Extensive right upper lobe consolidation and more mild right middle lobe consolidation, consistent with pneumonia. Consider aspiration pneumonia. Moderate to large right pleural effusion with complete atelectasis of the right lower lobe. Moderate left pleural effusion with minimal left basilar atelectasis. Small pericardial effusion. No definite acute abnormality in the abdomen or pelvis. Chronic compression fractures, as above. Renal Ultrasound 03/03/24 15:45 IMPRESSION: 1. Normal kidneys without hydronephrosis. 2. Small amount of ascites in the abdomen and pelvis. Abdomen Ultrasound 03/13/24 16:52 IMPRESSION: 1. No etiology for abnormal liver function tests. 2. Normal hepatic veins and main portal vein. Right and left portal veins and proper hepatic artery not evaluated. 3. Right pleural effusion. Vascular Ultrasound 03/13/24 16:52 IMPRESSION: 1. No etiology for abnormal liver function tests. 2. Normal hepatic veins and main portal vein. Right and left portal veins and proper hepatic artery not evaluated. 3. Right pleural effusion. Chest/Abdomen/Pelvis CT 03/16/24 21:51 IMPRESSION: Anasarca Large pleural effusions with prominent compressive atelectasis of the lower lobes especially, dependent atelectasis of the middle and upper lobes Heart size. Prominent coronary artery atherosclerotic calcifications Minimal pericardial effusion Prominent diffuse thickening of urinary bladder wall suggesting cystitis area Ha catheter in bladder lumen Very prominent amount of fluid and large fluid level within the stomach despite presence of NG tube T11 and L1 moderate anterior wedge compression fractures, likely chronic Thoracentesis Ultrasound 03/18/24 10:27 IMPRESSION: 1. Successful ultrasound-guided thoracentesis yielding 550 mL of doris-colored fluid. Modified Barium Swallow 03/21/24 15:25 IMPRESSION: 1. Aspiration of thin liquids and pudding. 2. Please refer to the speech therapy report for recommendations. Tube Placement 03/22/24 11:33 IMPRESSION: 1. Fluoroscopy guided nasoenteric tube placement with tip in the stomach. Abdomen X-Ray 03/22/24 12:47 IMPRESSION: 1. Nasogastric tube tip in the stomach. 2. Nasoenteric tube tip in the stomach. Venous Doppler Study 03/22/24 16:38 IMPRESSION: Nonocclusive right subclavian vein thrombus. No additional deep venous thrombosis detected in the remaining bilateral upper extremity veins. Chest X-Ray 04/01/24 06:16 Impression: Support tubes, as above. Small bilateral pleural effusions. Labs Labs: Laboratory Results - last 24 hr 03/31/24 03/31/24 03/31/24 12:41 16:31 20:53 WBC RBC Hgb Hct MCV MCH MCHC RDW Plt Count MPV Immature Gran % (Auto) Neut % (Auto) Lymph % (Auto) Harney % (Auto) Eos % (Auto) Baso % (Auto) Lymph # (Auto) Harney # (Auto) Eos # (Auto) Baso # (Auto) Abs Immat Gran (auto) Absolute Neuts (auto) Absolute Nucleated RBC Nucleated RBC % Sodium Potassium Chloride Carbon Dioxide Anion Gap BUN Creatinine Estim Creat Clear Calc Estimated GFR Glucose POC Capillary Glucose 197 H 236 H 261 H Calcium Phosphorus Magnesium Total Bilirubin AST ALT Alkaline Phosphatase Total Protein Albumin 04/01/24 04/01/24 04/01/24 00:35 05:45 06:09 WBC 10.6 H RBC 3.27 L Hgb 9.1 L Hct 30.2 L MCV 92.4 MCH 27.8 MCHC 30.1 L RDW 17.5 H Plt Count 207 MPV 9.8 Immature Gran % (Auto) 0.8 H Neut % (Auto) 72.2 Lymph % (Auto) 15.4 L Harney % (Auto) 9.6 H Eos % (Auto) 1.4 Baso % (Auto) 0.6 Lymph # (Auto) 1.62 Harney # (Auto) 1.0 H Eos # (Auto) 0.2 Baso # (Auto) 0.1 Abs Immat Gran (auto) 0.08 H Absolute Neuts (auto) 7.6 H Absolute Nucleated RBC 0.000 Nucleated RBC % 0.0 Sodium 143 Potassium 3.4 Chloride 105 Carbon Dioxide 33 H Anion Gap 5 BUN 41 H Creatinine 0.80 Estim Creat Clear Calc 79 Estimated GFR > 60 Glucose 264 H POC Capillary Glucose 228 H 253 H Calcium 8.5 Phosphorus 3.2 Magnesium 1.9 Total Bilirubin 0.4 AST 40 ALT 31 Alkaline Phosphatase 112 Total Protein 6.0 L Albumin 2.9 L 04/01/24 08:00 WBC RBC Hgb Hct MCV MCH MCHC RDW Plt Count MPV Immature Gran % (Auto) Neut % (Auto) Lymph % (Auto) Harney % (Auto) Eos % (Auto) Baso % (Auto) Lymph # (Auto) Harney # (Auto) Eos # (Auto) Baso # (Auto) Abs Immat Gran (auto) Absolute Neuts (auto) Absolute Nucleated RBC Nucleated RBC % Sodium Potassium Chloride Carbon Dioxide Anion Gap BUN Creatinine Estim Creat Clear Calc Estimated GFR Glucose POC Capillary Glucose 236 H Calcium Phosphorus Magnesium Total Bilirubin AST ALT Alkaline Phosphatase Total Protein Albumin Quality VTE Prophylaxis VTE prophylaxis: pharmacologic ordered
[2024-04-01] MEDS: METOPROLOL TARTRATE 25 MG TABLET FEED TUBE (10:11)
--- NOTE | 2024-04-01 11:44 | PCNFU ---
Nutrition Follow-Up Complete: Suboptimal Energy Intake as related to mechanical vent as evidenced by NPO. Goal: Meet estimated nutritional needs Patient is progressing towards goal. We will continue current goal. Pt current nutrition is Vital AF 1.2 at 50 ml/hr with Prosource BID and Minh BID. Nutrition recommendation: goal rate at 60 ml/hr. Last recorded weight is 91.7 kg, stable. Bowel Motility: +BM reported 03/31 Labs Reviewed:Glu 264, BUN 41, Alb 2.9 Meds Noted:Lantus, NovoLog,Reglan,Lopressor, Protonix. Skin: Stage II-sacrum, Right BKA. Additional Notes: Patient has PEG and Trach. Tube feedings are being tolerated of Vital AF 1.2 at 50 ml/hr. Goal rate at 60 ml/hr. Protein Modulars of Mnih and Prosource BID for additional kcal and protein needs. Total Nutrition: 1904 kcals/139 gm protein/1071 ml water. Flush 30 ml q 4 hours. Meeting 97% kcal needs at 20 kcal/kg and 100% protein needs at 1.8-2.0 gm protein. Agree with diet orders. Will monitor weight, labs, skin, tube feedings, meds, every Sunday and Sunday.
[2024-04-01 12:41] LABS: Glucose Point of Care 265 mg/dl (65-105)
--- NOTE | 2024-04-01 13:18 | P.DS_ITS ---
DS: Admitting Diagnosis Discharge Date 04/01/2024 Admitting Diagnosis Sepsis/cardiac arrest DS: Discharge Diagnosis Discharge Diagnosis (1) Acute respiratory failure with hypoxia: Code(s): J96.01 - Acute respiratory failure with hypoxia Status: Acute (2) Elevated LFTs: Code(s): R79.89 - Other specified abnormal findings of blood chemistry Status: Acute (3) Cardiac arrest with pulseless electrical activity: Code(s): I46.9 - Cardiac arrest, cause unspecified Status: Acute (4) Septic shock: Code(s): A41.9 - Sepsis, unspecified organism; R65.21 - Severe sepsis with septic shock Status: Acute (5) NSTEMI (non-ST elevated myocardial infarction): Code(s): I21.4 - Non-ST elevation (NSTEMI) myocardial infarction Status: Acute (6) Gangrene of right foot: Code(s): I96 - Gangrene, not elsewhere classified Status: Acute (7) Osteomyelitis of toe of right foot: Code(s): M86.9 - Osteomyelitis, unspecified Status: Chronic (8) Peripheral vascular disease: Code(s): I73.9 - Peripheral vascular disease, unspecified Status: Chronic (9) Type 2 diabetes mellitus: Qualifiers: 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 complication status: with other specified complication 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 bed bug 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 insulin use: with bed bug 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 use Qualified Code(s): E11.69 - Type 2 diabetes mellitus with other specified complication; Z79.4 - group home (current) use of insulin Code(s): E11.9 - Type 2 diabetes mellitus without complications Status: Acute (10) Chronic obstructive pulmonary disease: Code(s): J44.9 - Chronic obstructive pulmonary disease, unspecified Status: Chronic (11) Electrolyte abnormality: Code(s): E87.8 - Other disorders of electrolyte and fluid balance, not elsewhere classified Status: Acute (12) Ileus: Code(s): K56.7 - Ileus, unspecified Status: Acute (13) Sinus tachycardia: Code(s): R00.0 - Tachycardia, unspecified Status: Acute (14) Dysphagia: Code(s): R13.10 - Dysphagia, unspecified Status: Acute (15) DVT (deep venous thrombosis): Code(s): I82.409 - Acute embolism and thrombosis of unspecified deep veins of unspecified lower extremity Status: Acute (16) Thrombocytopenia: Code(s): D69.6 - Thrombocytopenia, unspecified Status: Acute DS: Summary Hospital Course Hospital Course: # Acute respiratory failure with hypoxia: Acute respiratory failure likely related to cardiac arrest, aspiration pneumonia, NSTEMI, hypoxia, septic shock Worsening likely secondary to ARDS versus pulmonary edema Intubated 02/28/202402/28 Chest CTA: Extensive right upper lobe consolidation and more mild right middle lobe consolidation, consistent with pneumonia. Consider aspiration pneumonia. Moderate to large right pleural effusion with complete atelectasis of the right lower lobe. Moderate left pleural effusion with minimal left basilar atelectasis. Small pericardial effusion. No definite acute abnormality in the abdomen or pelvis. Chronic compression fractures, as above -03/07 underwent right thoracentesis with 1 L fluid removed -03/08 left-sided thoracentesis 550 mL Has remained ventilator dependent and not tolerated weaning trials. Initially was extubated on 03/14/2024. Subsequently after 12 hours patient became more hypoxic and in respiratory distress needing to be reintubated. 03/17: Right thoracentesis 1 L removed 03/18 left thoracentesis 550 mL removed 03/19 extubated 03/22: Patient deteriorated and requiring re-intubation 03/31 tracheostomy done Continue mechanical ventilation as ordered # Elevated LFTs: 03/13: Significant elevation in LFTs, AST 2280, ALT 988, alk-phos 722 Statin discontinued. Levels continue to improve Vital hepatitis panel negative Right upper quadrant ultrasound with Doppler negative for hepatic or portal vein thrombosis # Cardiac arrest with pulseless electrical activity: Cardiac arrest, secondary to unknown etiology. Possible aspiration pneumonia, NSTEMI, hypoxia, septic shock, infection 02/29/2024 echocardiogram Summary 1. Technically difficult study with limited views. 2. Left ventricular chamber dimension is normal. 3. Left ventricular systolic function is mildly reduced, estimated at 45-50%. The apex appears to be hypokinetic. 4. There is mildly increased left ventricular wall thickness. 5. The left ventricular diastolic function is grade I diastolic dysfunction. 6. Right ventricular systolic function is normal. 7. Left atrial chamber dimension is moderately enlarged. 8. There is mild to moderate tricuspid valve regurgitation. 9. There is small anterior pericardial effusion. # Septic shock: Resolved Patient in shock, likely related to the gangrene, aspiration pneumonia, status post cardiac arrest Blood culture in negative. 03/16 low-grade fever increase in WBC CT scan as above, repeat blood cultures and sputum pending UA suggestive of UTI. Urine cultures pending. Ha has been changed. Completed course of cefepime Off Levophed since 03/29 after discontinuing sedation # NSTEMI (non-ST elevated myocardial infarction): - appreciate cardiology evaluation and recommendation - Continue aspirin, Lovenox and high-dose a statin - beta-brayden, losartan are on hold due to soft blood pressure. -03/02 heparin infusion was discontinued after 48 hours for NSTEMI by cardiology # Gangrene of right foot: CTA showed peripheral arterial disease with total occlusion of the right anterior and posterior tibial arteries and right peroneal artery with distal reconstitution of peroneal artery. This extensive gangrene of the right foot with gas seen on CT of the foot. General surgery spoke to the patient in the ER on the day of admission on 02/27 patient at that time agreed for below-knee amputation. Plan was to do a below- knee amputation on 02/29/2024 but patient had a cardiac arrest that night secondary to sepsis. Surgery at that time was deferred. Patient subsequently was unable to sign consent due to intubation. Patient has no family and for many years at the group home has had no visitor. He has 1 son which no one has been able to get hold off right several attempts. Considering patient has gangrene of the foot with no vascular supply leading to sepsis and if untreatable lead to his , Dr. Johns preceded with amputation on 03/05/2024. Dr. Collins and Dr. Johns has signed 2 physician consent considering patient's clearly expressed wishes prior to cardiac arrest at the time of admission, his current situation and inability to sign the consent form by himself at this time. 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 Patient also had high residuals. Patient has already been on Reglan. Bowel sounds are present but decreased. tube feeds restarted after PEG placement # status post PEG tube placement on 03/24/2024 # Sinus tachycardia: Does not appear in any respiratory distress. Resume low-dose beta-brayden # Dysphagia: 03/24 PEG tube inserted. Tolerating Tube feeds # DVT (deep venous thrombosis): ultrasound shows clot surrounding the PICC line in the right upper extremity PICC line working and will be left in place for now lovenox on hold, due to anemia and blood noticed in oral cavity and PEG tube. Hemoglobin stable GI was consulted #Thrombocytopenia: 4T score is high -03/30: Started on fondaparinux -platelet counts are improving Heparin antibody was ordered and pending along with serotonin release assay # DVT prophylaxis: SCDs to left lower extremity, continue fondaparinux # Stress ulcer prophylaxis: Protonix IV q.12 hours # Nutrition: Tolerating tube feeds # Code Status: Full code. Time Spent with Patient Time attestation: Total time spent providing and/or coordinating discharge services: Exam Narrative: General: Patient trached, on mechanical ventilation, in no acute distress HEENT:, pupils are equal and reactive from a sclera is clear, small amount of old blood noted in the mouth Neck:? supple Respiratory:? Coarse breath sounds bilaterally, decreased at bases, adequate air entry, no wheezing trach tube in place Cardiac:? S1-S2 normal, regular rate and rhythm Abdomen:? Soft, nontender, nondistended, bowel sounds are normoactive, PEG tube in place Extremities:? Right BKA stump, covered with Tobi wrap. Left dorsalis pedis is dopplerable Neuro:? Patient is off sedation, opens his eyes, follows simple commands in bilateral upper extremities and left lower extremity Skin:? Patient has maceration of his perianal area, pressure ulcer on his buttocks. Psych:? Unable to assess at this time DS: Data Data Completed and Pending Completed studies during hospitalization: Pending at discharge 03/05/24 15:16 Surgical [PTH] Routine Labs on day of discharge: Labs from last 24 hours 04/01/24 04/01/24 04/01/24 12:36 08:00 06:09 WBC RBC Hgb Hct MCV MCH MCHC RDW Plt Count MPV Immature Gran % (Auto) Neut % (Auto) Lymph % (Auto) Calloway % (Auto) Eos % (Auto) Baso % (Auto) Lymph # (Auto) Calloway # (Auto) Eos # (Auto) Baso # (Auto) Abs Immat Gran (auto) Absolute Neuts (auto) Absolute Nucleated RBC Nucleated RBC % Sodium Potassium Chloride Carbon Dioxide Anion Gap BUN Creatinine Estim Creat Clear Calc Estimated GFR Glucose POC Capillary Glucose 265 H 236 H 253 H Calcium Phosphorus Magnesium Total Bilirubin AST ALT Alkaline Phosphatase Total Protein Albumin 04/01/24 04/01/24 03/31/24 05:45 00:35 20:53 WBC 10.6 H RBC 3.27 L Hgb 9.1 L Hct 30.2 L MCV 92.4 MCH 27.8 MCHC 30.1 L RDW 17.5 H Plt Count 207 MPV 9.8 Immature Gran % (Auto) 0.8 H Neut % (Auto) 72.2 Lymph % (Auto) 15.4 L Calloway % (Auto) 9.6 H Eos % (Auto) 1.4 Baso % (Auto) 0.6 Lymph # (Auto) 1.62 Calloway # (Auto) 1.0 H Eos # (Auto) 0.2 Baso # (Auto) 0.1 Abs Immat Gran (auto) 0.08 H Absolute Neuts (auto) 7.6 H Absolute Nucleated RBC 0.000 Nucleated RBC % 0.0 Sodium 143 Potassium 3.4 Chloride 105 Carbon Dioxide 33 H Anion Gap 5 BUN 41 H Creatinine 0.80 Estim Creat Clear Calc 79 Estimated GFR > 60 Glucose 264 H POC Capillary Glucose 228 H 261 H Calcium 8.5 Phosphorus 3.2 Magnesium 1.9 Total Bilirubin 0.4 AST 40 ALT 31 Alkaline Phosphatase 112 Total Protein 6.0 L Albumin 2.9 L 03/31/24 16:31 WBC RBC Hgb Hct MCV MCH MCHC RDW Plt Count MPV Immature Gran % (Auto) Neut % (Auto) Lymph % (Auto) Calloway % (Auto) Eos % (Auto) Baso % (Auto) Lymph # (Auto) Calloway # (Auto) Eos # (Auto) Baso # (Auto) Abs Immat Gran (auto) Absolute Neuts (auto) Absolute Nucleated RBC Nucleated RBC % Sodium Potassium Chloride Carbon Dioxide Anion Gap BUN Creatinine Estim Creat Clear Calc Estimated GFR Glucose POC Capillary Glucose 236 H Calcium Phosphorus Magnesium Total Bilirubin AST ALT Alkaline Phosphatase Total Protein Albumin Imaging Radiologist's impression: ITS Impressions Lower Extremity CTA 02/28/24 14:54 IMPRESSION: 1. 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 2. Moderate stenosis of right popliteal artery. 3. Osteomyelitis involving first proximal and distal phalanges and head of first metatarsal. Chest X-Ray 02/28/24 21:30 IMPRESSION: 1. Diffuse right lung disease, likely pneumonia. Abdomen X-Ray 02/28/24 21:31 IMPRESSION: 1. Nasogastric tube tip beyond the inferior margin of the radiograph, but at least to the distal stomach. Head CT 02/29/24 05:55 Impression: No intracranial hemorrhage, mass, or acute infarct. Stable chronic encephalomalacia in the high left parietal lobe. Atrophy and chronic white matter changes, as above. Chest/Abdomen/Pelvis CTA 02/29/24 06:02 Impression: Extensive right upper lobe consolidation and more mild right middle lobe consolidation, consistent with pneumonia. Consider aspiration pneumonia. Moderate to large right pleural effusion with complete atelectasis of the right lower lobe. Moderate left pleural effusion with minimal left basilar atelectasis. Small pericardial effusion. No definite acute abnormality in the abdomen or pelvis. Chronic compression fractures, as above. Chest X-Ray 03/01/24 06:25 Impression: 1: Persistent bilateral airspace disease, right greater than left. Differential diagnosis includes edema and pneumonia. 2: Small right pleural effusion. Chest X-Ray 03/02/24 06:22 Impression: Probable moderate layering right pleural effusion. Correlate for underlying atelectasis/edema versus pneumonia. Left lung clear. Support tubes, as above. Chest X-Ray 03/03/24 06:31 Impression: Small right pleural effusion. Possible mild asymmetric haziness right lung. Correlate for mild asymmetric pulmonary edema or pneumonia. Support tubes, as above. Chest X-Ray 03/03/24 11:09 IMPRESSION: Bilateral pneumonia. Differential include pulmonary edema and ARDS. Minimal right pleural effusion. Renal Ultrasound 03/03/24 15:45 IMPRESSION: 1. Normal kidneys without hydronephrosis. 2. Small amount of ascites in the abdomen and pelvis. Chest X-Ray 03/04/24 06:10 IMPRESSION: 1. Diffuse lung disease with improvement on the left, consistent with pulmonary edema versus pneumonia versus acute respiratory distress syndrome (ARDS). 2. Stable small right pleural effusion. Chest X-Ray 03/04/24 08:33 IMPRESSION: Bilateral pneumonia. Right pleural effusion. Chest X-Ray 03/05/24 06:07 IMPRESSION: 1. Stable airspace opacities in right lung and left mid and lower lung zones, consistent with pneumonia. 2. Stable small right pleural effusion. Chest X-Ray 03/06/24 06:04 IMPRESSION: 1. Diffuse lung disease with worsening on the left, consistent with pneumonia. 2. Stable small right pleural effusion. Chest X-Ray 03/07/24 06:18 IMPRESSION: 1. Stable diffuse lung disease, consistent with pneumonia. 2. Stable small right pleural effusion. Thoracentesis Ultrasound 03/07/24 16:03 IMPRESSION: 1. Successful ultrasound-guided thoracentesis yielding 1000 mL of thin yellow fluid, performed at the bedside in ICU. Chest X-Ray 03/07/24 16:20 IMPRESSION: Bilateral pneumonia. Chest X-Ray 03/08/24 06:14 IMPRESSION: 1. Stable airspace opacities in right lung and left lower lung zone, consistent with pneumonia. 2. Stable small pleural effusions. Thoracentesis Ultrasound 03/08/24 09:35 IMPRESSION: 1. Successful ultrasound-guided thoracentesis yielding 550 mL of clear, yellow fluid. Chest X-Ray 03/08/24 10:08 IMPRESSION: 1. Stable bilateral lung disease, right worse than left, consistent with pneumonia. Chest X-Ray 03/09/24 06:08 IMPRESSION: 1. Stable airspace opacities in right lung and left mid and lower lung zones, consistent with pneumonia. 2. Worsened small right pleural effusion. Chest X-Ray 03/10/24 06:47 Impression: Small right pleural effusion. Support tubes, as above. Chest X-Ray 03/11/24 07:19 Impression: Small right pleural effusion. Support tubes, as above. Venous Doppler Study 03/11/24 13:58 IMPRESSION: 1. Patent bilateral upper extremity veins. No evidence of venous thrombosis. Chest X-Ray 03/12/24 06:15 Impression: Probable minimal pulmonary edema. Support tubes, as above. Chest X-Ray 03/13/24 06:40 Impression: Probable small layering right pleural effusion. Support tubes, as above. Abdomen Ultrasound 03/13/24 16:52 IMPRESSION: 1. No etiology for abnormal liver function tests. 2. Normal hepatic veins and main portal vein. Right and left portal veins and proper hepatic artery not evaluated. 3. Right pleural effusion. Vascular Ultrasound 03/13/24 16:52 IMPRESSION: 1. No etiology for abnormal liver function tests. 2. Normal hepatic veins and main portal vein. Right and left portal veins and proper hepatic artery not evaluated. 3. Right pleural effusion. Chest X-Ray 03/14/24 06:46 Impression: Probable small layering right pleural effusion. Support tubes, as above. Chest X-Ray 03/15/24 00:06 IMPRESSION: Bilateral airspace disease suggestive of pulmonary edema versus pneumonia. Abdomen X-Ray 03/15/24 00:08 IMPRESSION: Nasogastric tube with the tip in the fundus of the stomach. Slight advancement is advised. Chest X-Ray 03/15/24 07:51 IMPRESSION: 1. Nasogastric tube tip just below level of the gastroesophageal junction. Would recommend advancement by 8-[address] the proximal side-port below level of the gastroesophageal junction. 2. Bilateral airspace opacities at the medial left lower lung zone and more diffusely throughout the right lung collateral with interval increase consistent with likely increasing small to moderate-sized right pleural effusion and possible small left pleural effusion with associated atelectasis, pneumonia, pulmonary edema or some combination thereof. Chest X-Ray 03/16/24 07:00 IMPRESSION: 1. Small to moderate-sized bilateral pleural effusions with associated atelectasis or pneumonia. Abdomen X-Ray 03/16/24 19:53 IMPRESSION: Orogastric tube in satisfactory position in the stomach Chest/Abdomen/Pelvis CT 03/16/24 21:51 IMPRESSION: Anasarca Large pleural effusions with prominent compressive atelectasis of the lower lobes especially, dependent atelectasis of the middle and upper lobes Heart size. Prominent coronary artery atherosclerotic calcifications Minimal pericardial effusion Prominent diffuse thickening of urinary bladder wall suggesting cystitis area Ha catheter in bladder lumen Very prominent amount of fluid and large fluid level within the stomach despite presence of NG tube T11 and L1 moderate anterior wedge compression fractures, likely chronic Chest X-Ray 03/17/24 06:54 Impression: Small to moderate layering bilateral pleural effusions. Support tubes, as above. Chest X-Ray 03/17/24 15:22 IMPRESSION: Right lung is fully inflated following right-sided thoracentesis. Large left and small right-sided pleural effusion persists. Supportive devices remain in good radiographic position. Thoracentesis Ultrasound 03/17/24 15:43 IMPRESSION: 1. Successful ultrasound-guided thoracentesis yielding 1000 mL of clear, yellow fluid. Chest X-Ray 03/18/24 06:02 Impression: Small bilateral pleural effusions with probable mild central pulmonary edema pattern. Support tubes, as above. Thoracentesis Ultrasound 03/18/24 10:27 IMPRESSION: 1. Successful ultrasound-guided thoracentesis yielding 550 mL of doris-colored fluid. Chest X-Ray 03/18/24 10:35 IMPRESSION: 1. Stable small right pleural effusion. 2. Airspace opacities at the lung bases with improvement on the left, consistent with atelectasis versus pneumonia. Chest X-Ray 03/20/24 08:55 IMPRESSION: 1. Moderate-sized pleural effusions with worsening on the left. 2. Worsened airspace opacities in the perihilar regions and at the lung bases, consistent with atelectasis versus pneumonia. Chest X-Ray 03/21/24 09:06 IMPRESSION: 1. PICC tip at the superior cavoatrial junction. 2. Stable moderate-sized pleural effusions. 3. Stable airspace opacities in the perihilar regions and at the lung bases, consistent with atelectasis versus pneumonia. Modified Barium Swallow 03/21/24 15:25 IMPRESSION: 1. Aspiration of thin liquids and pudding. 2. Please refer to the speech therapy report for recommendations. Abdomen X-Ray 03/21/24 15:56 IMPRESSION: 1. Nasogastric tube tip in the stomach. 2. Moderate-sized right and small left pleural effusions. Chest X-Ray 03/22/24 10:29 IMPRESSION: 1. Diffuse lung disease with worsening on the right, consistent with atelectasis versus pneumonia. 2. Stable moderate-sized right and small left pleural effusions. 3. PICC tip at superior cavoatrial junction. Tube Placement 03/22/24 11:33 IMPRESSION: 1. Fluoroscopy guided nasoenteric tube placement with tip in the stomach. Chest X-Ray 03/22/24 12:45 IMPRESSION: 1. Diffuse lung disease with a perihilar and lower lung predominance with worsening on the left, consistent with atelectasis versus pneumonia versus pulmonary edema. 2. Stable moderate-sized right and small left pleural effusions. Abdomen X-Ray 03/22/24 12:47 IMPRESSION: 1. Nasogastric tube tip in the stomach. 2. Nasoenteric tube tip in the stomach. Venous Doppler Study 03/22/24 16:38 IMPRESSION: Nonocclusive right subclavian vein thrombus. No additional deep venous thrombosis detected in the remaining bilateral upper extremity veins. Chest X-Ray 03/23/24 07:38 Impression: Probable moderate layering pleural effusions with underlying mild to moderate pulmonary edema pattern. Support tubes, as above. Chest X-Ray 03/24/24 06:33 Impression: Bilateral pleural effusions with mild to moderate pulmonary edema pattern, as above. Support tubes, as above. Chest X-Ray 03/25/24 06:17 Impression: Moderate right pleural effusion and small left pleural effusion with probable moderate pulmonary edema. Support tubes, as above. Chest X-Ray 03/26/24 06:40 Impression: Bilateral pleural effusions and moderate pulmonary edema pattern, as above. Support tubes, as above. Chest X-Ray 03/27/24 06:45 Impression: [id number] bilateral pleural effusions with mild to moderate pulmonary edema pattern. Probable element of left lower lobe atelectasis. Support tubes are in place, as above. Chest X-Ray 03/29/24 06:09 IMPRESSION: 1. Stable airspace opacities in the mid and lower lung zones, consistent with atelectasis versus pneumonia. 2. Stable moderate-sized pleural effusions. Chest X-Ray 03/30/24 09:10 Impression: Bilateral pleural effusions, right greater than left, with associated [id number] pulmonary edema. Support tubes, as above. Chest X-Ray 03/31/24 06:18 Impression: [id number] bilateral pleural effusions with mild bibasilar pulmonary edema. Support tubes, as above. Chest X-Ray 04/01/24 06:16 Impression: Support tubes, as above. Small bilateral pleural effusions. Discharge Plan Discharge Attending physician on discharge: Kyle Adams Consulting providers: Jasson Johns; James Alvarez; Yasimne Edmond; Hussein Bradley; Asim Vasquez Discharging Clinician: Kyle Adams Anticipated Discharge Date/Time: 04/01/24 13:37 Patient Disposition: [facility] Activity: as tolerated and other - see discharge instructions Diet: NPO Discharge Instructions: Tube feeding: Vital AF 1.2 at 60 cc an hour. Which is his goal rate. Protein modular is of Min[employer] and [employer] b.[employer].d. Wound care: Daily wound care to right stump wounds. Free water flushes: 30 mL every 4 hours Accu-Cheks q. 4 hours Right arm PICC line in place Ha catheter in-situ Patient Instructions: Foot Care for People with Diabetes (GEN), Foot Ulcers in a Person with Diabetes (GEN), Removal of a Central Line, PICC, or Midline Ca theter (DC), Below the Knee Amputation (GEN) Stand Alone Forms: General Discharge Information Follow-up/Referrals: Jasson Johns MD [Physician] - 2 Weeks Bernardino Gaviria MD [Primary Care Provider] - 1 Week Discharge Medications: New oxycodone 5 mg Tablet 5 mg feeding tube Q4H PRN (Reason: Moderate Pain (4-6)) Qty: 20 0RF aspirin [Children's Aspirin] 81 mg Tablet,Chewable 81 mg feeding tube DAILY@0800 Qty: 30 0RF insulin aspart U-100 [Novolog U-100 Insulin aspart] 100 unit/mL Solution 3 - 6 unit subcut Q4HR Qty: 30 0RF Protocol: Insulin Corrective Moderate-Dose Condition: glucose < 70 mg/dl Dose/Route: Follow hypoglycemia orders Condition: glucose 70-200 mg/dl Dose/Route: No additional insulin Condition: glucose 201-250 mg/dl Dose/Route: 3 units sub-Q Condition: glucose 251-300 mg/dl Dose/Route: 4 units sub-Q Condition: glucose 301-350 mg/dl Dose/Route: 5 units sub-Q Condition: glucose 351-400 mg/dl Dose/Route: 6 units sub-Q Condition: glucose > 400 mg/dl Dose/Route: Call MD Protocol Text: *No Correction Dose at Bedtime* insulin glargine [Lantus U-100 Insulin] 100 unit/mL Solution 20 unit subcut DAILY Qty: 30 0RF pantoprazole [Protonix] [address] for susp in packet 40 mg feeding tube Q12H Qty: 30 0RF ipratropium-albuterol 0.5 mg-3 mg(2.5 mg base)/3 mL Solution For Nebulization 3 ml inhalation Q6HRT Qty: 30 0RF Lubrifresh PM 83-15 % Ointment 1 applic EACH EYE Q12HR Qty: 30 0RF bisacodyl 10 mg Suppository 10 mg RECTAL QAM PRN (Reason: Constipation) Qty: 30 0RF polyethylene glycol 3350 [Miralax] 17 gram Powder In Packet 17 g PO QAM Qty: 30 0RF acetaminophen [Nortemp] 160 mg/5 mL Suspension 650 mg PO Q4H PRN (Reason: Mild Pain (1-3) Or Fever) Qty: 30 0RF metoclopramide HCl 5 mg/5 mL Solution 5 mg PO Q6HR Qty: 30 0RF fondaparinux [Arixtra] 5 mg/0.4 mL Syringe 5 mg subcut QAM Qty: 30 0RF metoprolol tartrate 25 mg Tablet 25 mg feeding tube Q12HR Qty: 30 0RF Discontinued albuterol sulfate 90 mcg/actuation HFA aerosol inhaler 2 puff INHALATION QID Qty: 8.5 2RF metoprolol succinate 50 mg tablet extended release 24 hr 50 mg PO DAILY zolpidem 10 mg tablet 10 mg PO HS fluticasone propionate 50 mcg/actuation spray,suspension 2 spray INTRANASAL DAILY budesonide-formoterol [Symbicort] 160-4.5 mcg/actuation HFA aerosol inhaler 2 puff INHALATION Q12H citalopram [Celexa] 20 mg Tablet 20 mg PO DAILY cholecalciferol (vitamin D3) 25 mcg (1,000 unit) Tablet 25 mcg PO DAILY calcium carbonate [Tums] 200 mg calcium (500 mg) Tablet,Chewable 200 mg PO QID PRN (Reason: Indigestion) aspirin [Children's Aspirin] 81 mg Tablet,Chewable 81 mg PO DAILY@0800 Qty: 30 5RF losartan 25 mg Tablet 25 mg PO DAILY Qty: 30 5RF rosuvastatin [Crestor] 10 mg Tablet 20 mg PO DAILY Qty: 30 5RF Brilinta 90 mg Tablet 90 mg PO Q12HR Qty: 60 5RF Invokana 100 mg Tablet 100 mg PO DAILY@0800 Qty: 30 0RF metformin [Glucophage] 500 mg Tablet 500 mg PO BIDWM Qty: 60 0RF miconazole nitrate 2 % Cream 1 applic topical Q12HR Qty: 30 0RF Rx Instructions: apply to the bilateral lower extremity and feet until skin is clear metformin 500 mg tablet 500 mg PO BID acetaminophen 325 mg Tablet 650 mg PO TID polyethylene glycol 3350 [Miralax] 17 gram Powder In Packet 17 g PO DAILY PRN (Reason: Constipation) metoprolol succinate 50 mg tablet extended release 24 hr 50 mg PO DAILY calcium carbonate [Calcium Antacid] 200 mg calcium (500 mg) Tablet,Chewable 400 mg PO Q6H losartan 25 mg tablet 25 mg PO DAILY docusate sodium [Colace] 100 mg Capsule 100 mg PO Q12H aspirin [Aspirin Childrens] 81 mg Tablet,Chewable 81 mg PO DAILY albuterol sulfate 90 mcg/actuation HFA aerosol inhaler 2 inh INHALATION Q4H PRN (Reason: Shortness Of Breath Or Wheezing) guaifenesin 400 mg Tablet 400 mg PO Q6H PRN (Reason: Cough) Eucerin Cream 1 applic TOPICAL Q12H Rx Instructions: apply to lower legs dapagliflozin propanediol [Farxiga] 5 mg tablet 10 mg PO DAILY Brilinta 60 mg tablet 60 mg PO Q12H Gvoke HypoPen 1-Pack 1 mg/0.2 mL auto-injector 1 mg SUBCUT PRN PRN (Reason: Hypoglycemia) Rx Instructions: blood sugar under 70 insulin glargine-yfgn 100 unit/mL (3 mL) insulin pen 55 unit SUBCUT HS Flonase 2 inh EACH NARE DAILY Adults Multivitamin 18 mg iron-400 mcg-25 mcg Tablet 1 tablet PO DAILY insulin aspart U-100 100 unit/mL solution 7 unit subcut AC rosuvastatin 20 mg tablet 20 mg PO DAILY budesonide-formoterol [Symbicort] 160-4.5 mcg/actuation HFA aerosol inhaler 2 puff INHALATION Q12H trazodone 50 mg tablet 25 mg PO HS Date of admission: 02/29/24 06:37 Primary Care Provider: Bernardino Gaviria Admitting Provider: Yazmin Strange Attending physician on admission: Yazmin Strange Condition: Stable
[2024-04-01 16:19] LABS: Glucose Point of Care 239 mg/dl (65-105)
--- NOTE | 2024-04-01 18:47 | PC.NURSE ---
Patient DC to [facility] via [facility] at 1645. Facility updated on patient leaving and family as well. Patient vitals stable and belongings sent with.
[2024-04-02 13:09] LABS: Heparin Induced Platelet Antib Negative (Negative)
[2024-04-04 15:09] LABS: UFH SRA Result Interpretation Negative (Negative)
== END 2024-04-01 18:46 | DRG 3 ==
LOC: ANHED 18:37 → ANH2MED 18:59 → ANHICU 21:29
PROVIDERS: Internal Medicine; Internal Medicine Gastroenterology; Otolaryngology; Physician Assistant; Student in an Organized Health Care Education/Training Program; Surgery; Admitting Provider Family Medicine; Emergency Provider Physician Assistant; PCP Hospitalist; Visit Provider Internal Medicine
PROC: 0Y6H0Z1 Detachment at Right Lower Leg, High, Open Approach (ICD-10-PCS; CPT 27882; principal; 2024-03-05 13:45)
PROC: 0DH63UZ Insertion of Feeding Device into Stomach, Percutaneous Approach (ICD-10-PCS; CPT 43246; principal; 2024-03-24 15:00)
PROC: 0B110F4 Bypass Trachea to Cutaneous with Tracheostomy Device, Open Approach (ICD-10-PCS; principal; 2024-03-31 12:00)
DX: A41.9 Sepsis, unspecified organism (principal); I21.4 Non-ST elevation (NSTEMI) myocardial infarction; R65.21 Severe sepsis with septic shock; J96.01 Acute respiratory failure with hypoxia; J69.0 Pneumonitis due to inhalation of food and vomit; I46.8 Cardiac arrest due to other underlying condition; J18.9 Pneumonia, unspecified organism; I70.261 Atherosclerosis of native arteries of extremities with gangrene, right leg; E11.52 Type 2 diabetes mellitus with diabetic peripheral angiopathy with gangrene; L03.115 Cellulitis of right lower limb; E87.0 Hyperosmolality and hypernatremia; J90 Pleural effusion, not elsewhere classified; N17.9 Acute kidney failure, unspecified; M86.9 Osteomyelitis, unspecified; K56.7 Ileus, unspecified; E11.69 Type 2 diabetes mellitus with other specified complication; I25.10 Atherosclerotic heart disease of native coronary artery without angina pectoris; J44.9 Chronic obstructive pulmonary disease, unspecified; I10 Essential (primary) hypertension; F32.A Depression, unspecified; E11.42 Type 2 diabetes mellitus with diabetic polyneuropathy; Z20.822 Contact with and (suspected) exposure to COVID-19; Z86.16 Personal history of COVID-19; Z95.5 Presence of coronary angioplasty implant and graft; Z87.891 Personal history of nicotine dependence; Z79.4 Long term (current) use of insulin; Z90.49 Acquired absence of other specified parts of digestive tract
CPT/HCPCS: 31500; 32555; 36415; 36430; 36569; 36600; 43246; 43752; 70450; 71045; 71250; 71275; 73706; 74174; 74176; 76705; 76775; 80048; 80053; 80074; 80076; 80202; 81001; 82140; 82274; 82375; 82436; 82550; 82570; 82607; 82728; 82746; 82805; 82948; 83036; 83050; 83540; 83550; 83605; 83735; 83880; 84100; 84133; 84300; 84443; 84478; 84484; 85018; 85025; 85027; 85049; 85610; 85652; 85730; 85999; 86022; 86140; 86850; 86900; 86901; 86923; 87040; 87070; 87086; 87205; 87636; 87641; 88307; 88311; 92610; 92611; 92950; 93005; 93306; 93970; 93979; 94002; 94003; 94640; 96365; 96366; 96367; 99285; A4629; A9270; G0378; J0171; J0330; J0613; J0690; J0692; J1171; J1644; J1650; J1652; J1720; J1815; J1836; J1939; J1940; J2003; J2004; J2185; J2250; J2270; J2470; J2704; J2765; J2919; J2997; J3010; J3370; J3480; J7030; J7042; J7050; J7060; J7120; L1830; P9016; P9041; P9047; Q9967